=== PATIENT | male | born 1965 | race Hispanic/Latino ===

== ENCOUNTER 2017-09-07 10:26 | Observation (INO) | payer BC ==
--- OUTSIDE RECORDS SUMMARY | 2017-09-07 10:29 | XMS REPORT ---
:1965 [facility] Address [address] [place] [address] [address] [place] [address] Care Team Providers Name Role Phone LOPEZHAIMMADI Unavailable Unavailable TAMMY BETANCOURT Unavailable Unavailable Problems This patient has no known problems. Allergies, Adverse Reactions, Alerts This patient has no known allergies or adverse reactions. Medications This patient has no known medications. Results Test Description Test Time Test Comments Text Results Atomic Results Result Comments [facility] 2017-01-28 05:57:00 Test Item Value Reference Range Comments Glucose (test code=GLU) 117 mg/dl 75-110 BUN (test code=BUN) 12.0 mg/dl 6.0-17.0 Creatinine (test 0.9 mg/dl 0.4-1.2 code=CREA) Sodium (test code=NA) 142 mmol/l 137-145 Potassium (test code=K) 4.3 mmol/l 3.5-5.0 Chloride (test code=CL) 104 mmol/l 98-107 CO2 (test code=CO2) 26 mmol/l 22-30 Calcium (test code=CALC) 9.6 mg/dl 8.4-10.2 T Protein (test code=TP) 8.6 gm/dl 5.1-8.7 Albumin (test code=ALB) 4.0 gm/dl 3.5-4.6 A/G Ratio (test 0.9 % 1.1-2.2 code=AGRAT) AST (SGOT) (test code=AST) 31 U/L 11-36 ALT (SGPT) (test code=ALT) 51 U/L 11-40 Alkaline Phos (test 73 U/L 47-114 code=ALKP) Total Bilirubin (test 0.6 mg/dl 0.2-1.2 code=TBIL) Globulin (test code=GLOBU) 4.6 gm/dl 2.3-3.5 Calcium, Corrected (test 9.6 mg/dl 8.4-10.2 Various formulas exist for code=CALCCORR) corrected serum calcium results, each yielding different values. This corrected result was based on the formula: Corrected Calcium=SerumCalcium + [0.8 * ( 4 - SerumAlbumin)] EGFR if >60 (test code=EGFRAA) mL/min/1.73m\\S\\2 EGFR if Non- >60 Estimated Glomerular Jamaican (test mL/min/1.73m\\S\\2 Filtration Rate (eGFR) code=EGFRNA) Reference Intervals Decision Points for 18 years and older and average body mass: >=60 Does not exclude kidney disease. 30 - 59 Suggests moderate chronic kidney disease and indicates the need for further investigation including assessment of proteinuria and cardiovascular factors. < 30 Usually indicates a need for referral for assessment and management of chronic kidney failure. CBC WITH AUTO [id number] 05:42:00 Test Item Value Reference Range Comments WBC (test code=WBC) 5.14 10\\S\\3/ul 4.80-10.80 RBC (test code=RBC) 4.61 10\\S\\6/ul 4.70-6.10 Hemoglobin (test code=HGB) 12.4 gm/dl 14.0-18.0 Hematocrit (test code=HCT) 39.1 % 42.0-50.0 MCV (test code=MCV) 84.8 fL 80.0-94.0 MCH (test code=MCH) 26.9 pg 27.0-31.0 MCHC (test code=MCHC) 31.7 gm/dl 33.0-37.0 RDW (test code=RDWVC) 15.0 % 11.5-14.5 Platelet (test code=PLT) 473 10\\S\\3/ul 130-400 MPV (test code=MPV) 8.9 fL 7.4-10.4 "NOT MEASURED" RESULTS ARE DISPLAYED WHEN THE INSTRUMENT HAS A SUPPRESSED OR UNREPORTABLE RESULT. THIS WILL MOST OFTEN HAPPEN WITH THE MPV WHEN THERE IS AN ABNORMAL PLATLET DISTRIBUTION DUE TO A CRITICAL LOW VALUE OR PLATELET CLUMPING. NE% (test code=NE) 57.7 % 42.0-75.0 LY% (test code=LY) 29.2 % 13.0-42.0 MO% (test code=MO) 8.4 % 4.0-14.0 EO% (test code=EO) 2.3 % 1.0-3.0 BA% (test code=BA) 1.4 % 1.0-3.0 IG% (test code=IG%) 1.0 % 0.0-0.4 [id number] 05:53:00 Test Item Value Reference Range Comments Glucose (test code=GLU) 116 mg/dl 75-110 BUN (test code=BUN) 13.0 mg/dl 6.0-17.0 Creatinine (test 0.9 mg/dl 0.4-1.2 code=CREA) Sodium (test code=NA) 139 mmol/l 137-145 Potassium (test code=K) 4.4 mmol/l 3.5-5.0 Chloride (test code=CL) 102 mmol/l 98-107 CO2 (test code=CO2) 26 mmol/l 22-30 Calcium (test code=CALC) 9.2 mg/dl 8.4-10.2 T Protein (test code=TP) 8.1 gm/dl 5.1-8.7 Albumin (test code=ALB) 3.7 gm/dl 3.5-4.6 A/G Ratio (test 0.8 % 1.1-2.2 code=AGRAT) AST (SGOT) (test 52 U/L 11-36 code=AST) ALT (SGPT) (test 60 U/L 11-40 code=ALT) Alkaline Phos (test 73 U/L 47-114 code=ALKP) Total Bilirubin (test 0.6 mg/dl 0.2-1.2 code=TBIL) Globulin (test 4.4 gm/dl 2.3-3.5 code=GLOBU) Calcium, Corrected (test 9.4 mg/dl 8.4-10.2 Various formulas exist for code=CALCCORR) corrected serum calcium results, each yielding different values. This corrected result was based on the formula: Corrected Calcium=SerumCalcium + [0.8 * ( 4 - SerumAlbumin)] EGFR if >60 (test code=EGFRAA) mL/min/1.73m\\S\\2 EGFR if Non- >60 Estimated Glomerular Jamaican (test mL/min/1.73m\\S\\2 Filtration Rate (eGFR) code=EGFRNA) Reference Intervals Decision Points for 18 years and older and average body mass: >=60 Does not exclude kidney disease. 30 - 59 Suggests moderate chronic kidney disease and indicates the need for further investigation including assessment of proteinuria and cardiovascular factors. < 30 Usually indicates a need for referral for assessment and management of chronic kidney failure. CBC WITH AUTO [id number] 05:27:00 Test Item Value Reference Range Comments WBC (test code=WBC) 5.28 10\\S\\3/ul 4.80-10.80 RBC (test code=RBC) 4.50 10\\S\\6/ul 4.70-6.10 Hemoglobin (test code=HGB) 12.1 gm/dl 14.0-18.0 Hematocrit (test code=HCT) 38.7 % 42.0-50.0 MCV (test code=MCV) 86.0 fL 80.0-94.0 MCH (test code=MCH) 26.9 pg 27.0-31.0 MCHC (test code=MCHC) 31.3 gm/dl 33.0-37.0 RDW (test code=RDWVC) 15.1 % 11.5-14.5 Platelet (test code=PLT) 432 10\\S\\3/ul 130-400 MPV (test code=MPV) 8.9 fL 7.4-10.4 "NOT MEASURED" RESULTS ARE DISPLAYED WHEN THE INSTRUMENT HAS A SUPPRESSED OR UNREPORTABLE RESULT. THIS WILL MOST OFTEN HAPPEN WITH THE MPV WHEN THERE IS AN ABNORMAL PLATLET DISTRIBUTION DUE TO A CRITICAL LOW VALUE OR PLATELET CLUMPING. NE% (test code=NE) 53.6 % 42.0-75.0 LY% (test code=LY) 29.9 % 13.0-42.0 MO% (test code=MO) 10.8 % 4.0-14.0 EO% (test code=EO) 3.4 % 1.0-3.0 BA% (test code=BA) 0.6 % 1.0-3.0 IG% (test code=IG%) 1.7 % 0.0-0.4 [id number] 04:36:00 Test Item Value Reference Range Comments Glucose (test code=GLU) 148 mg/dl 75-110 BUN (test code=BUN) 14.0 mg/dl 6.0-17.0 Creatinine (test 1.0 mg/dl 0.4-1.2 code=CREA) Sodium (test code=NA) 141 mmol/l 137-145 Potassium (test code=K) 4.4 mmol/l 3.5-5.0 Chloride (test code=CL) 103 mmol/l 98-107 CO2 (test code=CO2) 26 mmol/l 22-30 Calcium (test code=CALC) 9.0 mg/dl 8.4-10.2 T Protein (test code=TP) 7.9 gm/dl 5.1-8.7 Albumin (test code=ALB) 3.7 gm/dl 3.5-4.6 A/G Ratio (test 0.9 % 1.1-2.2 code=AGRAT) AST (SGOT) (test 36 U/L 11-36 code=AST) ALT (SGPT) (test 63 U/L 11-40 code=ALT) Alkaline Phos (test 68 U/L 47-114 code=ALKP) Total Bilirubin (test 0.8 mg/dl 0.2-1.2 code=TBIL) Globulin (test 4.2 gm/dl 2.3-3.5 code=GLOBU) Calcium, Corrected (test 9.2 mg/dl 8.4-10.2 Various formulas exist for code=CALCCORR) corrected serum calcium results, each yielding different values. This corrected result was based on the formula: Corrected Calcium=SerumCalcium + [0.8 * ( 4 - SerumAlbumin)] EGFR if >60 (test code=EGFRAA) mL/min/1.73m\\S\\2 EGFR if Non- >60 Estimated Glomerular [place]ican (test mL/min/1.73m\\S\\2 Filtration Rate (eGFR) code=EGFRNA) Reference Intervals Decision Points for 18 years and older and average body mass: >=60 Does not exclude kidney disease. 30 - 59 Suggests moderate chronic kidney disease and indicates the need for further investigation including assessment of proteinuria and cardiovascular factors. < 30 Usually indicates a need for referral for assessment and management of chronic kidney failure. CBC WITH AUTO [id number] 04:14:00 Test Item Value Reference Range Comments WBC (test code=WBC) 5.76 10\\S\\3/ul 4.80-10.80 RBC (test code=RBC) 4.33 10\\S\\6/ul 4.70-6.10 Hemoglobin (test code=HGB) 11.7 gm/dl 14.0-18.0 Hematocrit (test code=HCT) 37.4 % 42.0-50.0 MCV (test code=MCV) 86.4 fL 80.0-94.0 MCH (test code=MCH) 27.0 pg 27.0-31.0 MCHC (test code=MCHC) 31.3 gm/dl 33.0-37.0 RDW (test code=RDWVC) 15.2 % 11.5-14.5 Platelet (test code=PLT) 412 10\\S\\3/ul 130-400 MPV (test code=MPV) 8.8 fL 7.4-10.4 "NOT MEASURED" RESULTS ARE DISPLAYED WHEN THE INSTRUMENT HAS A SUPPRESSED OR UNREPORTABLE RESULT. THIS WILL MOST OFTEN HAPPEN WITH THE MPV WHEN THERE IS AN ABNORMAL PLATLET DISTRIBUTION DUE TO A CRITICAL LOW VALUE OR PLATELET CLUMPING. NE% (test code=NE) 58.3 % 42.0-75.0 LY% (test code=LY) 25.2 % 13.0-42.0 MO% (test code=MO) 10.1 % 4.0-14.0 EO% (test code=EO) 3.3 % 1.0-3.0 BA% (test code=BA) 1.2 % 1.0-3.0 IG% (test code=IG%) 1.9 % 0.0-0.4 [id number] 04:40:00 Test Item Value Reference Range Comments Glucose (test code=GLU) 122 mg/dl 75-110 BUN (test code=BUN) 13.0 mg/dl 6.0-17.0 Creatinine (test 0.9 mg/dl 0.4-1.2 code=CREA) Sodium (test code=NA) 140 mmol/l 137-145 Potassium (test code=K) 4.3 mmol/l 3.5-5.0 Chloride (test code=CL) 104 mmol/l 98-107 CO2 (test code=CO2) 27 mmol/l 22-30 Calcium (test code=CALC) 9.1 mg/dl 8.4-10.2 T Protein (test code=TP) 8.1 gm/dl 5.1-8.7 Albumin (test code=ALB) 3.7 gm/dl 3.5-4.6 A/G Ratio (test 0.8 % 1.1-2.2 code=AGRAT) AST (SGOT) (test 39 U/L 11-36 code=AST) ALT (SGPT) (test 70 U/L 11-40 code=ALT) Alkaline Phos (test 77 U/L 47-114 code=ALKP) Total Bilirubin (test 0.8 mg/dl 0.2-1.2 code=TBIL) Globulin (test 4.4 gm/dl 2.3-3.5 code=GLOBU) Calcium, Corrected (test 9.3 mg/dl 8.4-10.2 Various formulas exist for code=CALCCORR) corrected serum calcium results, each yielding different values. This corrected result was based on the formula: Corrected Calcium=SerumCalcium + [0.8 * ( 4 - SerumAlbumin)] EGFR if >60 (test code=EGFRAA) mL/min/1.73m\\S\\2 EGFR if Non- >60 Estimated Glomerular [place]ican (test mL/min/1.73m\\S\\2 Filtration Rate (eGFR) code=EGFRNA) Reference Intervals Decision Points for 18 years and older and average body mass: >=60 Does not exclude kidney disease. 30 - 59 Suggests moderate chronic kidney disease and indicates the need for further investigation including assessment of proteinuria and cardiovascular factors. < 30 Usually indicates a need for referral for assessment and management of chronic kidney failure. CBC WITH AUTO [id number] 04:09:00 Test Item Value Reference Range Comments WBC (test code=WBC) 6.63 10\\S\\3/ul 4.80-10.80 RBC (test code=RBC) 4.55 10\\S\\6/ul 4.70-6.10 Hemoglobin (test code=HGB) 12.3 gm/dl 14.0-18.0 Hematocrit (test code=HCT) 38.8 % 42.0-50.0 MCV (test code=MCV) 85.3 fL 80.0-94.0 MCH (test code=MCH) 27.0 pg 27.0-31.0 MCHC (test code=MCHC) 31.7 gm/dl 33.0-37.0 RDW (test code=RDWVC) 15.4 % 11.5-14.5 Platelet (test code=PLT) 401 10\\S\\3/ul 130-400 MPV (test code=MPV) 8.9 fL 7.4-10.4 "NOT MEASURED" RESULTS ARE DISPLAYED WHEN THE INSTRUMENT HAS A SUPPRESSED OR UNREPORTABLE RESULT. THIS WILL MOST OFTEN HAPPEN WITH THE MPV WHEN THERE IS AN ABNORMAL PLATLET DISTRIBUTION DUE TO A CRITICAL LOW VALUE OR PLATELET CLUMPING. NE% (test code=NE) 63.8 % 42.0-75.0 LY% (test code=LY) 21.4 % 13.0-42.0 MO% (test code=MO) 8.6 % 4.0-14.0 EO% (test code=EO) 3.2 % 1.0-3.0 BA% (test code=BA) 0.6 % 1.0-3.0 IG% (test code=IG%) 2.4 % 0.0-0.4 CULTURE, [id number] 06:50:00To start 15mins after 1st cultureSpecimen: BloodCollected: 01/18/2017 04:05 Status: Final Last Updated: 01/23/2017 06: 49 (1) To start 15mins after 1st culture Culture Result (Final) (Final ) No Growth After 5 DaysCULTURE, [id number] 06:50:00Specimen: BloodCollected: 01/18/2017 03:55 Status: Final Last Updated: 01/23/2017 06: 49 Culture Result (Final) (Final) No Growth After 5 DaysCBC WITH AUTO [id number] 04:31:00 Test Item Value Reference Range Comments WBC (test code=WBC) 7.39 10\\S\\3/ul 4.80-10.80 RBC (test code=RBC) 4.43 10\\S\\6/ul 4.70-6.10 Hemoglobin (test code=HGB) 11.9 gm/dl 14.0-18.0 Hematocrit (test code=HCT) 37.8 % 42.0-50.0 MCV (test code=MCV) 85.3 fL 80.0-94.0 MCH (test code=MCH) 26.9 pg 27.0-31.0 MCHC (test code=MCHC) 31.5 gm/dl 33.0-37.0 RDW (test code=RDWVC) 15.6 % 11.5-14.5 Platelet (test code=PLT) 391 10\\S\\3/ul 130-400 MPV (test code=MPV) 8.9 fL 7.4-10.4 "NOT MEASURED" RESULTS ARE DISPLAYED WHEN THE INSTRUMENT HAS A SUPPRESSED OR UNREPORTABLE RESULT. THIS WILL MOST OFTEN HAPPEN WITH THE MPV WHEN THERE IS AN ABNORMAL PLATLET DISTRIBUTION DUE TO A CRITICAL LOW VALUE OR PLATELET CLUMPING. NE% (test code=NE) 64.7 % 42.0-75.0 LY% (test code=LY) 19.9 % 13.0-42.0 MO% (test code=MO) 8.9 % 4.0-14.0 EO% (test code=EO) 2.3 % 1.0-3.0 BA% (test code=BA) 0.8 % 1.0-3.0 IG% (test code=IG%) 3.4 % 0.0-0.4 [id number] 04:19:00 Test Item Value Reference Range Comments Glucose (test code=GLU) 125 mg/dl 75-110 BUN (test code=BUN) 12.0 mg/dl 6.0-17.0 Creatinine (test 0.9 mg/dl 0.4-1.2 code=CREA) Sodium (test code=NA) 143 mmol/l 137-145 Potassium (test code=K) 4.3 mmol/l 3.5-5.0 Chloride (test code=CL) 101 mmol/l 98-107 CO2 (test code=CO2) 29 mmol/l 22-30 Calcium (test code=CALC) 9.0 mg/dl 8.4-10.2 T Protein (test code=TP) 7.9 gm/dl 5.1-8.7 Albumin (test code=ALB) 3.6 gm/dl 3.5-4.6 A/G Ratio (test 0.8 % 1.1-2.2 code=AGRAT) AST (SGOT) (test 42 U/L 11-36 code=AST) ALT (SGPT) (test 69 U/L 11-40 code=ALT) Alkaline Phos (test 82 U/L 47-114 code=ALKP) Total Bilirubin (test 0.7 mg/dl 0.2-1.2 code=TBIL) Globulin (test 4.3 gm/dl 2.3-3.5 code=GLOBU) Calcium, Corrected (test 9.3 mg/dl 8.4-10.2 Various formulas exist for code=CALCCORR) corrected serum calcium results, each yielding different values. This corrected result was based on the formula: Corrected Calcium=SerumCalcium + [0.8 * ( 4 - SerumAlbumin)] EGFR if >60 (test code=EGFRAA) mL/min/1.73m\\S\\2 EGFR if Non- >60 Estimated Glomerular [place]ican (test mL/min/1.73m\\S\\2 Filtration Rate (eGFR) code=EGFRNA) Reference Intervals Decision Points for 18 years and older and average body mass: >=60 Does not exclude kidney disease. 30 - 59 Suggests moderate chronic kidney disease and indicates the need for further investigation including assessment of proteinuria and cardiovascular factors. < 30 Usually indicates a need for referral for assessment and management of chronic kidney failure. CBC WITH AUTO [id number] 04:57:00 Test Item Value Reference Range Comments WBC (test code=WBC) 7.78 10\\S\\3/ul 4.80-10.80 RBC (test code=RBC) 4.46 10\\S\\6/ul 4.70-6.10 Hemoglobin (test code=HGB) 12.0 gm/dl 14.0-18.0 Hematocrit (test code=HCT) 38.2 % 42.0-50.0 MCV (test code=MCV) 85.7 fL 80.0-94.0 MCH (test code=MCH) 26.9 pg 27.0-31.0 MCHC (test code=MCHC) 31.4 gm/dl 33.0-37.0 RDW (test code=RDWVC) 15.5 % 11.5-14.5 Platelet (test code=PLT) 359 10\\S\\3/ul 130-400 MPV (test code=MPV) 9.0 fL 7.4-10.4 "NOT MEASURED" RESULTS ARE DISPLAYED WHEN THE INSTRUMENT HAS A SUPPRESSED OR UNREPORTABLE RESULT. THIS WILL MOST OFTEN HAPPEN WITH THE MPV WHEN THERE IS AN ABNORMAL PLATLET DISTRIBUTION DUE TO A CRITICAL LOW VALUE OR PLATELET CLUMPING. NE% (test code=NE) 66.4 % 42.0-75.0 LY% (test code=LY) 17.1 % 13.0-42.0 MO% (test code=MO) 9.3 % 4.0-14.0 EO% (test code=EO) 2.7 % 1.0-3.0 BA% (test code=BA) 0.5 % 1.0-3.0 IG% (test code=IG%) 4.0 % 0.0-0.4 CBC AUTO [id number] 04:35:00 Test Item Value Reference Range Comments Glucose (test code=GLU) 108 mg/dl 75-110 BUN (test code=BUN) 10.0 mg/dl 6.0-17.0 Creatinine (test 0.9 mg/dl 0.4-1.2 code=CREA) Sodium (test code=NA) 142 mmol/l 137-145 Potassium (test code=K) 4.4 mmol/l 3.5-5.0 Chloride (test code=CL) 102 mmol/l 98-107 CO2 (test code=CO2) 32 mmol/l 22-30 Calcium (test code=CALC) 8.9 mg/dl 8.4-10.2 T Protein (test code=TP) 7.6 gm/dl 5.1-8.7 Albumin (test code=ALB) 3.5 gm/dl 3.5-4.6 A/G Ratio (test 0.9 % 1.1-2.2 code=AGRAT) AST (SGOT) (test 75 U/L 11-36 code=AST) ALT (SGPT) (test 68 U/L 11-40 code=ALT) Alkaline Phos (test 80 U/L 47-114 code=ALKP) Total Bilirubin (test 0.8 mg/dl 0.2-1.2 code=TBIL) Globulin (test 4.1 gm/dl 2.3-3.5 code=GLOBU) Calcium, Corrected (test 9.3 mg/dl 8.4-10.2 Various formulas exist for code=CALCCORR) corrected serum calcium results, each yielding different values. This corrected result was based on the formula: Corrected Calcium=SerumCalcium + [0.8 * ( 4 - SerumAlbumin)] EGFR if >60 (test code=EGFRAA) mL/min/1.73m\\S\\2 EGFR if Non- >60 Estimated Glomerular [place] (test mL/min/1.73m\\S\\2 Filtration Rate (eGFR) code=EGFRNA) Reference Intervals Decision Points for 18 years and older and average body mass: >=60 Does not exclude kidney disease. 30 - 59 Suggests moderate chronic kidney disease and indicates the need for further investigation including assessment of proteinuria and cardiovascular factors. < 30 Usually indicates a need for referral for assessment and management of chronic kidney failure. CBC WITH AUTO [id number] 05:01:00 Test Item Value Reference Range Comments WBC (test code=WBC) 7.83 10\\S\\3/ul 4.80-10.80 RBC (test code=RBC) 4.26 10\\S\\6/ul 4.70-6.10 Hemoglobin (test code=HGB) 11.7 gm/dl 14.0-18.0 Hematocrit (test code=HCT) 36.5 % 42.0-50.0 MCV (test code=MCV) 85.7 fL 80.0-94.0 MCH (test code=MCH) 27.5 pg 27.0-31.0 MCHC (test code=MCHC) 32.1 gm/dl 33.0-37.0 RDW (test code=RDWVC) 15.7 % 11.5-14.5 Platelet (test code=PLT) 299 10\\S\\3/ul 130-400 MPV (test code=MPV) 9.2 fL 7.4-10.4 "NOT MEASURED" RESULTS ARE DISPLAYED WHEN THE INSTRUMENT HAS A SUPPRESSED OR UNREPORTABLE RESULT. THIS WILL MOST OFTEN HAPPEN WITH THE MPV WHEN THERE IS AN ABNORMAL PLATLET DISTRIBUTION DUE TO A CRITICAL LOW VALUE OR PLATELET CLUMPING. NE% (test code=NE) 67.1 % 42.0-75.0 LY% (test code=LY) 16.0 % 13.0-42.0 MO% (test code=MO) 9.6 % 4.0-14.0 EO% (test code=EO) 2.4 % 1.0-3.0 BA% (test code=BA) 0.4 % 1.0-3.0 IG% (test code=IG%) 4.5 % 0.0-0.4 CBC AUTO [id number] 04:56:00 Test Item Value Reference Range Comments Glucose (test code=GLU) 107 mg/dl 75-110 BUN (test code=BUN) 7.0 mg/dl 6.0-17.0 Creatinine (test 0.9 mg/dl 0.4-1.2 code=CREA) Sodium (test code=NA) 143 mmol/l 137-145 Potassium (test code=K) 4.2 mmol/l 3.5-5.0 Chloride (test code=CL) 105 mmol/l 98-107 CO2 (test code=CO2) 29 mmol/l 22-30 Calcium (test code=CALC) 8.8 mg/dl 8.4-10.2 T Protein (test code=TP) 7.2 gm/dl 5.1-8.7 Albumin (test code=ALB) 3.5 gm/dl 3.5-4.6 A/G Ratio (test 0.9 % 1.1-2.2 code=AGRAT) AST (SGOT) (test 45 U/L 11-36 code=AST) ALT (SGPT) (test 87 U/L 11-40 code=ALT) Alkaline Phos (test 77 U/L 47-114 code=ALKP) Total Bilirubin (test 0.8 mg/dl 0.2-1.2 code=TBIL) Globulin (test 3.7 gm/dl 2.3-3.5 code=GLOBU) Calcium, Corrected (test 9.2 mg/dl 8.4-10.2 Various formulas exist for code=CALCCORR) corrected serum calcium results, each yielding different values. This corrected result was based on the formula: Corrected Calcium=SerumCalcium + [0.8 * ( 4 - SerumAlbumin)] EGFR if >60 (test code=EGFRAA) mL/min/1.73m\\S\\2 EGFR if Non- >60 Estimated Glomerular [place] (test mL/min/1.73m\\S\\2 Filtration Rate (eGFR) code=EGFRNA) Reference Intervals Decision Points for 18 years and older and average body mass: >=60 Does not exclude kidney disease. 30 - 59 Suggests moderate chronic kidney disease and indicates the need for further investigation including assessment of proteinuria and cardiovascular factors. < 30 Usually indicates a need for referral for assessment and management of chronic kidney failure. CBC WITH AUTO [id number] 05:57:00 Test Item Value Reference Range Comments WBC (test code=WBC) 7.49 10\\S\\3/ul 4.80-10.80 RBC (test code=RBC) 4.17 10\\S\\6/ul 4.70-6.10 Hemoglobin (test code=HGB) 11.3 gm/dl 14.0-18.0 Hematocrit (test code=HCT) 35.5 % 42.0-50.0 MCV (test code=MCV) 85.1 fL 80.0-94.0 MCH (test code=MCH) 27.1 pg 27.0-31.0 MCHC (test code=MCHC) 31.8 gm/dl 33.0-37.0 RDW (test code=RDWVC) 16.1 % 11.5-14.5 Platelet (test code=PLT) 222 10\\S\\3/ul 130-400 MPV (test code=MPV) 9.5 fL 7.4-10.4 "NOT MEASURED" RESULTS ARE DISPLAYED WHEN THE INSTRUMENT HAS A SUPPRESSED OR UNREPORTABLE RESULT. THIS WILL MOST OFTEN HAPPEN WITH THE MPV WHEN THERE IS AN ABNORMAL PLATLET DISTRIBUTION DUE TO A CRITICAL LOW VALUE OR PLATELET CLUMPING. NE% (test code=NE) 64.4 % 42.0-75.0 LY% (test code=LY) 16.2 % 13.0-42.0 MO% (test code=MO) 12.6 % 4.0-14.0 EO% (test code=EO) 1.3 % 1.0-3.0 BA% (test code=BA) 0.7 % 1.0-3.0 IG% (test code=IG%) 4.8 % 0.0-0.4 [id number] 05:41:00 Test Item Value Reference Range Comments Magnesium (test code=MG) 2.0 mg/dl 1.6-2.3 [id number] 05:41:00 Test Item Value Reference Range Comments Glucose (test code=GLU) 114 mg/dl 75-110 BUN (test code=BUN) 8.0 mg/dl 6.0-17.0 Creatinine (test 0.9 mg/dl 0.4-1.2 code=CREA) Sodium (test code=NA) 145 mmol/l 137-145 Potassium (test code=K) 3.9 mmol/l 3.5-5.0 Chloride (test code=CL) 105 mmol/l 98-107 CO2 (test code=CO2) 28 mmol/l 22-30 Calcium (test code=CALC) 8.8 mg/dl 8.4-10.2 T Protein (test code=TP) 7.0 gm/dl 5.1-8.7 Albumin (test code=ALB) 3.2 gm/dl 3.5-4.6 A/G Ratio (test 0.8 % 1.1-2.2 code=AGRAT) AST (SGOT) (test 75 U/L 11-36 code=AST) ALT (SGPT) (test 113 U/L 11-40 code=ALT) Alkaline Phos (test 100 U/L 47-114 code=ALKP) Total Bilirubin (test 1.0 mg/dl 0.2-1.2 code=TBIL) Globulin (test 3.8 gm/dl 2.3-3.5 code=GLOBU) Calcium, Corrected (test 9.4 mg/dl 8.4-10.2 Various formulas exist for code=CALCCORR) corrected serum calcium results, each yielding different values. This corrected result was based on the formula: Corrected Calcium=SerumCalcium + [0.8 * ( 4 - SerumAlbumin)] EGFR if >60 (test code=EGFRAA) mL/min/1.73m\\S\\2 EGFR if Non- >60 Estimated Glomerular Jamaican (test mL/min/1.73m\\S\\2 Filtration Rate (eGFR) code=EGFRNA) Reference Intervals Decision Points for 18 years and older and average body mass: >=60 Does not exclude kidney disease. 30 - 59 Suggests moderate chronic kidney disease and indicates the need for further investigation including assessment of proteinuria and cardiovascular factors. < 30 Usually indicates a need for referral for assessment and management of chronic kidney failure. LACTIC ACID [id number] 06:43:00 Test Item Value Reference Range Comments LACTATE (test code=LAC) 0.9 mmol/l 0.7-2.0 GLYCOSALATED [id number] 05:41:00 Test Item Value Reference Range Comments Hemoglobin A1C (test 9.06 % 4.3-6.0 code=GLYCO) Mean Plasma Glucose (test 245 mg/dl 90-180 WHEN TEST RESULTS FOR A1C code=MPG) EXCEED 14.0, THE LINEAR LIMIT OF THE INSTRUMENT, THE CALCULATED RESULT FOR THE MEAN GLUCOSE IS NOT RELIABLE. CORONARY [id number] 05:09:00 Test Item Value Reference Range Comments Triglycerides (test 186 mg/dl 0-149 Trig. Interpretation Guide: code=TRIG) Normal: < 150 mg/dl Borderline High: 150 - 199 mg/dl High: 200 - 499 mg/dl Very High: >=500 mg/dl Cholesterol (test code=CHOL) 146 mg/dl 0-198 HDL (test code=HDL) 24 mg/dl 35-86 dLDL (test code=DILDL) 89 mg/dl 0-99 Direct LDL Intrepretations: Optimal: <100 mg/dl Suspect: 100 - 129 mg/dl Borderline: 130 - 159 mg/dl High: 160 - 189 mg/dl Very High: >190 mg/dl Risk Factor (test code=RFACT) 6.1 0.0-5.0 Risk Factor Men Women Risk Factor 3.4 3.3 1/2 Average 5.0 4.4 Average 9.6 7.1 2X Average 24.0 11.0 3X Average vLDL (test code=VLDL) 37 mg/dl 30-60 [id number] 04:51:00 Test Item Value Reference Range Comments Magnesium (test code=MG) 2.1 mg/dl 1.6-2.3 [id number] 04:51:00 Test Item Value Reference Range Comments CPK (test code=CPK) 93 U/L 30-135 LIPASE, [id number] 04:43:00 Test Item Value Reference Range Comments Lipase (test code=LIPA) 116 U/L 8-223 [id number] 04:43:00 Test Item Value Reference Range Comments Glucose (test code=GLU) 95 mg/dl 75-110 BUN (test code=BUN) 10.0 mg/dl 6.0-17.0 Creatinine (test 0.8 mg/dl 0.4-1.2 code=CREA) Sodium (test code=NA) 143 mmol/l 137-145 Potassium (test code=K) 3.4 mmol/l 3.5-5.0 Chloride (test code=CL) 104 mmol/l 98-107 CO2 (test code=CO2) 29 mmol/l 22-30 Calcium (test code=CALC) 9.0 mg/dl 8.4-10.2 T Protein (test code=TP) 7.6 gm/dl 5.1-8.7 Albumin (test code=ALB) 3.6 gm/dl 3.5-4.6 A/G Ratio (test 0.9 % 1.1-2.2 code=AGRAT) AST (SGOT) (test 58 U/L 11-36 code=AST) ALT (SGPT) (test 93 U/L 11-40 code=ALT) Alkaline Phos (test 97 U/L 47-114 code=ALKP) Total Bilirubin (test 1.3 mg/dl 0.2-1.2 code=TBIL) Globulin (test 4.0 gm/dl 2.3-3.5 code=GLOBU) Calcium, Corrected (test 9.3 mg/dl 8.4-10.2 Various formulas exist for code=CALCCORR) corrected serum calcium results, each yielding different values. This corrected result was based on the formula: Corrected Calcium=SerumCalcium + [0.8 * ( 4 - SerumAlbumin)] EGFR if >60 (test code=EGFRAA) mL/min/1.73m\\S\\2 EGFR if Non- >60 Estimated Glomerular [place]ican (test mL/min/1.73m\\S\\2 Filtration Rate (eGFR) code=EGFRNA) Reference Intervals Decision Points for 18 years and older and average body mass: >=60 Does not exclude kidney disease. 30 - 59 Suggests moderate chronic kidney disease and indicates the need for further investigation including assessment of proteinuria and cardiovascular factors. < 30 Usually indicates a need for referral for assessment and management of chronic kidney failure. CBC (HEMOGRAM ONLY)2017-01-18 04:37:00 Test Item Value Reference Range Comments WBC (test code=WBC) 7.74 10\\S\\3/ul 4.80-10.80 RBC (test code=RBC) 4.39 10\\S\\6/ul 4.70-6.10 Hemoglobin (test code=HGB) 12.0 gm/dl 14.0-18.0 Hematocrit (test code=HCT) 37.4 % 42.0-50.0 MCV (test code=MCV) 85.2 fL 80.0-94.0 MCH (test code=MCH) 27.3 pg 27.0-31.0 MCHC (test code=MCHC) 32.1 gm/dl 33.0-37.0 RDW (test code=RDWVC) 15.9 % 11.5-14.5 Platelet (test code=PLT) 185 10\\S\\3/ul 130-400 MPV (test code=MPV) 9.5 fL 7.4-10.4 "NOT MEASURED" RESULTS ARE DISPLAYED WHEN THE INSTRUMENT HAS A SUPPRESSED OR UNREPORTABLE RESULT. THIS WILL MOST OFTEN HAPPEN WITH THE MPV WHEN THERE IS AN ABNORMAL PLATLET DISTRIBUTION DUE TO A CRITICAL LOW VALUE OR PLATELET CLUMPING. THIS IS A HEMOGRAM ONLY
[2017-09-07 12:28] LABS: Absolute Lymphocytes (CBC) 1.5 K/uL (0.7-4.9); Absolute Monocytes 0.7 K/uL (0.1-1.3); Absolute Neutrophil 4.3 K/uL (1.8-8.0); Eosinophils % 4.1 % (0-4.4); Hematocrit 44.4 % (39.6-49.0); Lymphocytes % 21.5 % (15.3-44.8); MPV 8.2 fL (7.6-11.3); Monocytes % 9.9 % (3.3-12.3); RBC Red Blood Cell Count 5.29 M/uL (4.33-5.43)
[2017-09-07 12:31] LABS: Protime INR 0.94
[2017-09-07 12:45] LABS: Bicarbonate 29 mEq/L (21-31); Glucose Level 152 mg/dL (65-120); Potassium 4.6 mEq/L (3.6-5.0); Sodium Level 136 mEq/L (135-145)
[2017-09-07 12:51] LABS: ALT/SGPT 99 IU/L (10-60); AST/SGOT 51 IU/L (10-42); Albumin 3.7 g/dL (3.2-5.5); Alkaline Phosphatase 69 IU/L (42-121); BUN Blood Urea Nitrogen 17 mg/dL (6-20); Bilirubin Direct 0.1 mg/dL (0-0.2); Bilirubin Total 0.2 mg/dL (0.3-1.2); Creatine Phosphokinase 246 IU/L (22-269); Protein, Total 7.3 g/dL (6.0-8.3)
[2017-09-07 12:54] LABS: CKMB Creatine Kinase MB 8.3 ng/ml (0.3-4.0)
[2017-09-07 13:29] LABS: Urine Blood NEGATIVE (NEG); Urine Glucose 2+ (NEG); Urine Protein TRACE (NEG); Urine Specific Gravity 1.015 (1.005-1.030)
--- NOTE | 2017-09-07 13:44 | RAD REPORT ---
EXAM DESCRIPTION: VAS - Extrem Venous W Compress Mukund - 09/07/2017 1:37 pm CLINICAL HISTORY: Leg pain and swelling COMPARISON: None. TECHNIQUE: Real-time sonographic evaluation of the bilateral lower extremity deep venous systems was performed. FINDINGS: Normal compressibility, flow augmentation, phasic flow and spontaneous flow are identified in the left and right lower extremity deep venous systems. No intraluminal filling defects seen. Int erstitial edema is seen in the soft tissues. No abscess or drainable fluid collection. IMPRESSION: No DVT in either lower extremity. Bilateral calf edema change. No abscess or drainable fluid collection.
--- NOTE | 2017-09-07 13:46 | RAD REPORT ---
EXAM DESCRIPTION: RAD - Chest Single View - 09/07/2017 1:38 pm CLINICAL HISTORY: Orthopnea, soft tissue infection COMPARISON: December 2016 TECHNIQUE: AP portable chest image was obtained 1334 hours . FINDINGS: No pulmonary edema, infiltrate or acute lung parenchymal process. Failure and volume overl oad are not suspected. Heart and vasculature are normal. No measurable pleural effusion and no pneumo thorax. No gross bony abnormality seen. No acute aortic findings suspected. IMPRESSION: No acute cardiopulmonary process. No significant change from comparison.
[2017-09-07] MEDS ORDERED: FUROSEMIDE 40 MG/4 ML VIAL ONE (14:13)
--- NOTE | 2017-09-07 14:57 | EDPHYS ---
Physician Documentation [facility] Name: Nicola Harvey Age: 52 yrs Sex: Male : 1965 Arrival Date: 09/07/2017 Time: 10:28 Bed 15 Private MD: ED Physician Dakotah Gandhi HPI: 09/07 11:56 This 52 yrs old Male presents to ER via Ambulatory with complaints of Leg Pain.cp 11:56 The patient presents with pain, swelling, tenderness. The complaints affect the right cp lower leg. 11:56 Associated signs and symptoms: Pertinent positives: calf tenderness, orthopnea, cp Pertinent negatives fever, warmth. 11:56 Onset: The symptoms/episode began/occurred gradually, and became worse 3 day(s) ago. cp Treatment prior to arrival includes: no previous treatment. Severity of symptoms: in the emergency department the symptoms are unchanged, despite home interventions. Historical: - Allergies: 10:36 No Known Allergies; hj - Home Meds: 10:36 amlodipine 5 mg tab 1 tab once daily [Active]; glimepiride 4 mg Oral tab 1 tab BID hj [Active]; guardiance [Active]; lisinopril 40 mg Oral tab 1 tab once daily [Active]; metformin 1,000 mg Oral tab 1 tab 2 times per day [Active]; Metoprolol Tartrate Oral [Active]; Victoza 2-Quoc subcutaneous [Active]; - PMHx: 10:36 Diabetes - IDDM; Hypertension; lower back pain with injecitons; hj - PSHx: 10:36 back; hj - Immunization history:: Adult Immunizations up to date. - Social history:: Smoking status: Patient/guardian denies using tobacco. ROS: 12:00 Constitutional: Negative for body aches, chills, fever, poor PO intake. cp 12:00 Eyes: Negative for injury, pain, redness, and discharge. cp 12:00 ENT: Negative for drainage from ear(s), ear pain, sore throat, difficulty swallowing, difficulty handling secretions. 12:00 Cardiovascular: Positive for edema, orthopnea, Negative for chest pain, palpitations. 12:00 Respiratory: Negative for cough, hemoptysis, pleurisy, wheezing. 12:00 Abdomen/GI: Negative for abdominal pain, nausea, vomiting, and diarrhea, black/tarry stool, rectal bleeding. 12:00 Back: Negative for pain at rest, pain with movement. 12:00 : Negative for urinary symptoms. 12:00 Skin: Negative for cellulitis, rash. 12:00 Neuro: Negative for altered mental status, headache, numbness, weakness. 12:00 All other systems are negative. Exam: 12:08 Constitutional: The patient appears in no acute distress, alert, awake, cp non-diaphoretic, non-toxic, well developed, well nourished, obese. 12:08 Head/Face: Normocephalic, atraumatic. Eyes: Pupils equal round and reactive to light, cp extra-ocular motions intact. Lids and lashes normal. Conjunctiva and sclera are non-icteric and not injected. Cornea within normal limits. Periorbital areas with no swelling, redness, or edema. ENT: Nares patent. No nasal discharge, no septal abnormalities noted. Tympanic membranes are normal and external auditory canals are clear. Oropharynx with no redness, swelling, or masses, exudates, or evidence of obstruction, uvula midline. Mucous membranes moist. Neck: Trachea midline, no thyromegaly or masses palpated, and no cervical lymphadenopathy. Supple, full range of motion without nuchal rigidity, or vertebral point tenderness. No Meningismus. Chest/axilla: Normal chest wall appearance and motion. Nontender with no deformity. No lesions are appreciated. 12:08 Cardiovascular: Rate: bradycardic, Rhythm: regular, Heart sounds: murmur, not appreciated, rub, not appreciated, gallop, not appreciated, Edema: ankle edema, that is marked, JVD: is not appreciated. 12:08 Respiratory: the patient does not display signs of respiratory distress, Respirations: normal, no use of accessory muscles, no retractions, no splinting, no tachypnea, labored breathing, is not present, Breath sounds: are clear throughout, no decreased breath sounds, no stridor, no wheezing. 12:08 Abdomen/GI: Inspection: obese Bowel sounds: active, all quadrants, Palpation: abdomen is soft and non-tender, in all quadrants, rebound tenderness, is not appreciated, voluntary guarding, is not appreciated, involuntary guarding, is not appreciated. 12:08 Back: pain, is absent, ROM is normal. 12:08 Skin: cellulitis, is not appreciated, no rash present. 12:08 Neuro: Orientation: to person, place \T\ time. Mentation: is normal, Cerebellar function: is grossly normal, Motor: moves all fours, strength is normal, Sensation: no obvious gross deficits. Vital Signs: 10:37 BP 127 / 68; Pulse 56; Resp 18; Temp 97.5(TE); Pulse Ox 98% on R/A; Weight 147.42 kg; hj Height 5 ft. 10 in. (177.80 cm); Pain 5/10; 13:31 BP 150 / 82; Pulse 50; Resp 16; Pulse Ox 97% on R/A; la1 16:16 BP 170 / 70; Pulse 54; Resp 16; Temp 97.6(TE); Pulse Ox 100% on R/A; la1 10:37 Body Mass Index 46.63 (147.42 kg, 177.80 cm) hj MDM: 11:43 Patient medically screened. cp 13:00 Differential diagnosis: DVT, cellulitis, CHF exacerbation, kidney failure. cp 14:00 Data reviewed: vital signs, nurses notes, lab test result(s), radiologic studies, plain cp films, ultrasound. 14:00 Counseling: I had a detailed discussion with the patient and/or guardian regarding: the cp historical points, exam findings, and any diagnostic results supporting the discharge/admit diagnosis, lab results, radiology results, will admit for continued treatment. 14:00 Physician consultation: Paul Call MD was contacted at 14:00, regarding admission, cp to the telemetry unit. patient's condition, and will see patient in ED, shortly. 09/07 11:56 Order name: Troponin (emerg Dept Use Only); Complete Time: 13:54 cp 09/07 12:24 Order name: Basic Metabolic Panel; Complete Time: 13:02 EDMO 09/07 13:03 Interpretation: Normal except: GLUC 152. cp 09/07 12:24 Order name: Liver (Hepatic) Function; Complete Time: 13:02 EDMO 09/07 12:24 Order name: Creatine Phosphokinase; Complete Time: 13:02 EDMO 09/07 12:24 Order name: CKMB Creatine Kinase MB; Complete Time: 13:02 EDMO 09/07 11:56 Order name: XRAY Chest (1 view); Complete Time: 13:54 cp 09/07 11:56 Order name: EKG; Complete Time: 12:34 cp 09/07 11:56 Order name: Cardiac monitoring; Complete Time: 13:03 cp 09/07 11:56 Order name: EKG - Nurse/Tech; Complete Time: 12:57 cp 09/07 11:56 Order name: IV Saline Lock; Complete Time: 12:57 cp 09/07 11:56 Order name: Labs collected and sent; Complete Time: 12:57 cp 09/07 11:56 Order name: O2 Per Protocol; Complete Time: 12:57 cp 09/07 11:56 Order name: US Extremity Venou Bilateral; Complete Time: 13:54 cp 09/07 12:24 Order name: Magnesium; Complete Time: 13:02 EDMS 09/07 12:25 Order name: BNP B-Type Natriuretic Peptide; Complete Time: 13:54 EDMS 09/07 12:25 Order name: CBC with Automated Diff; Complete Time: 13:02 EDMS 09/07 12:25 Order name: Protime (+INR); Complete Time: 13:02 EDMS 09/07 12:43 Order name: PTT, Activated Partial Thromb; Complete Time: 13:02 EDMS 09/07 13:08 Order name: Urine Dipstick--Ancillary (enter results); Complete Time: 13:54 ag 09/07 14:29 Order name: Diet Heart Healthy; Complete Time: 14:29 ag 09/07 11:56 Order name: O2 Sat Monitoring; Complete Time: 12:57 cp 09/07 11:56 Order name: Urine Dipstick-Ancillary (obtain specimen); Complete Time: 12:58 cp Administered Medications: 14:18 Drug: Lasix 40 mg Route: IVP; Site: right antecubital; la1 16:17 Follow up: Response: increased urine output la1 Disposition: 18:50 Co-signature as Attending Physician, Dakotah Gandhi MD I agree with the assessment and kdr plan of care. Disposition: 09/07/17 14:56 Hospitalization ordered by Latoya Mcknight for Inpatient Admission. Preliminary diagnosis are Orthopnea, Edema, unspecified - Bilateral Lower Extremities. - Bed requested for Telemetry/MedSurg (Inpatient). - Status is Inpatient Admission. la1 - Condition is Stable. - Problem is new. - Symptoms are unchanged. UTI on Admission? No Signatures: Dispatcher [employer] EDMS Mariah Garcia, RN RN dw Dakotah Gandhi MD MD kdr Attema, Lee, RN RN la1 Young Carrasco, RN RN hj Weston Fonseca PA PA cp Corrections: (The following items were deleted from the chart) 12: 12:34 BASIC METABOLIC PANEL+C.LAB.BRZ ordered. EDMS EDMS 12: 12:34 BNP+C.LAB.BRZ ordered. EDMS EDMS 12: 12:34 CBC+H.LAB.BRZ ordered. EDMS EDMS 12: 12:34 CKMB+C.LAB.BRZ ordered. EDMS EDMS 12: 12:34 CREATINE PHOSPHOKINASE+C.LAB.BRZ ordered. EDMS EDMS 12: 12:34 HEPATIC FUNCTION+C.LAB.BRZ ordered. EDMS EDMS 12: 12:34 MAGNESIUM+C.LAB.BRZ ordered. EDMS EDMS 12:41 12:34 PROTIME (+INR)+COAG.LAB.BRZ ordered. EDMS EDMS 12:41 12:34 PTT, ACTIVATED+COAG.LAB.BRZ ordered. EDMS EDMS
--- NOTE | 2017-09-07 14:57 | ER ---
Nurse's Notes [facility] Name: Nicola Harvey Age: 52 yrs Sex: Male : 1965 Arrival Date: 09/07/2017 Time: 10:28 Bed 15 Private MD: Diagnosis: Edema, unspecified-Bilateral Lower Extremities;Orthopnea Presentation: 09/07 10:34 Presenting complaint: Patient states: i have problems again with my R leg, was admitted here for R leg staph infection and now i started to seep fluids on my R leg; denies fever and chills;. Transition of care: patient was not received from another setting of care. Onset of symptoms was September 07, 2017. Care prior to arrival: None. 10:34 Method Of Arrival: Ambulatory 10:34 Acuity: ANGE 3 Triage Assessment: 10:37 General: Appears in no apparent distress. uncomfortable, Behavior is calm, cooperative, hj appropriate for age. Pain: Complains of pain in right grant. Historical: - Allergies: 10:36 No Known Allergies; hj - Home Meds: 10:36 amlodipine 5 mg tab 1 tab once daily [Active]; glimepiride 4 mg Oral tab 1 tab BID hj [Active]; guardiance [Active]; lisinopril 40 mg Oral tab 1 tab once daily [Active]; metformin 1,000 mg Oral tab 1 tab 2 times per day [Active]; Metoprolol Tartrate Oral [Active]; Victoza 2-Quoc subcutaneous [Active]; - PMHx: 10:36 Diabetes - IDDM; Hypertension; lower back pain with injecitons; - PSHx: 10:36 back; hj - Immunization history:: Adult Immunizations up to date. - Social history:: Smoking status: Patient/guardian denies using tobacco. Screenin:46 Abuse screen: Denies threats or abuse. Nutritional screening: No deficits noted. la1 Tuberculosis screening: No symptoms or risk factors identified. Fall Risk None identified. Assessment: 11:45 General: Appears in no apparent distress. Behavior is calm, cooperative. Pain: la1 Complains of pain in right ankle. Neuro: Level of Consciousness is awake, alert, obeys commands, Oriented to person, place, time, situation. Cardiovascular: Patient's skin is warm and dry. Cardiovascular: Denies chest pain, Heart tones S1 S2 present Edema is 3+ to left ankle and right ankle. Respiratory: Airway is patent Respiratory effort is even, unlabored, Respiratory pattern is regular, symmetrical. GI: Abdomen is obese. : No signs and/or symptoms were reported regarding the genitourinary system. 13:10 Reassessment: Patient appears in no apparent distress at this time. No changes from la1 previously documented assessment. Patient and/or family updated on plan of care and expected duration. Pain level reassessed. Patient is alert, oriented x 3, equal unlabored respirations, skin warm/dry/pink. 14:33 Reassessment: Patient appears in no apparent distress at this time. No changes from la1 previously documented assessment. Patient and/or family updated on plan of care and expected duration. Pain level reassessed. Patient is alert, oriented x 3, equal unlabored respirations, skin warm/dry/pink. 14:33 Reassessment: Dressing applied to RLE where edematous area was seeping clear fluid. la1 Vital Signs: 10:37 BP 127 / 68; Pulse 56; Resp 18; Temp 97.5(TE); Pulse Ox 98% on R/A; Weight 147.42 kg; hj Height 5 ft. 10 in. (177.80 cm); Pain 5/10; 13:31 BP 150 / 82; Pulse 50; Resp 16; Pulse Ox 97% on R/A; la1 16:16 BP 170 / 70; Pulse 54; Resp 16; Temp 97.6(TE); Pulse Ox 100% on R/A; la1 10:37 Body Mass Index 46.63 (147.42 kg, 177.80 cm) ED Course: 10:28 Patient arrived in ED. tw3 10:36 Triage completed. hj 10:37 Arm band placed on left wrist. hj 11:40 Weston Fonseca PA is PHCP. cp 11:40 Dakotah Gandhi MD is Attending Physician. cp 11:40 Jose G Blackwood, KRUNAL is Primary Nurse. la1 11:46 Bed in low position. Call light in reach. Adult w/ patient. la1 12:06 Initial lab(s) drawn, by me, by ED staff, sent to lab. Inserted saline lock: 20 gauge ms in right antecubital area, using aseptic technique. Blood collected. 12:58 Ultrasound completed. Patient tolerated well. sg3 13:35 X-ray completed. Portable x-ray completed in exam room. jr1 13:36 XRAY Chest (1 view) In Process Unspecified. EDMS 14:53 Latoya Mcknight MD is Hospitalizing Provider. cp 16:41 No provider procedures requiring assistance completed. Patient admitted, IV remains in la1 place. Administered Medications: 14:18 Drug: Lasix 40 mg Route: IVP; Site: right antecubital; la1 16:17 Follow up: Response: increased urine output la1 Outcome: 14:56 Decision to Hospitalize by Provider. cp 16:41 Admitted to Med/surg accompanied by tech, via wheelchair, room 215, Report called to [facility] bridgett 16:41 Condition: stable 16:41 Instructed on the need for admit. 16:42 Patient left the ED. fl1 Signatures: Dispatcher [employer] EDKS Jeannine Vaughn jr1 Larissa Ramires ms, Lee RN RN la1 Young Carrasco RN RN Weston Keller PA PA Alexa Ambrosio tw3 Chani Colón sg3 Corrections: (The following items were deleted from the chart) 10:40 10:37 Pulse 56bpm; Resp 18bpm; Pulse Ox 98% RA; Temp 97.5F Temporal; 147.42 kg; Height hj 5 ft. 10 in.; BMI: 46.6; Pain 5/10; hj 13:37 13:28 Ultrasound completed. Patient tolerated well. sg3 sg3 13:37 13:37 In radiology for Extrem Venous W Compression Mukund+VAS.RAD.BRZ. EDMS sg3
[2017-09-07] MEDS ORDERED: GLUCAGON 1 MG/VIAL IM PRN (15:31)
[2017-09-07] MEDS ORDERED: D50W 25 GM/50 ML SYRINGE IV PRN (15:31)
[2017-09-07] MEDS ORDERED: ACETAMINOPHEN 500 MG TAB PO PRN (15:31)
[2017-09-07] MEDS: INSULIN -REGULAR HUMAN 50 UNIT/0.5 ML ML SQ SCH ×2 (16:30→21:25)
[2017-09-07] MEDS ORDERED: ENOXAPARIN 40 MG/0.4 ML SQ SCH (17:00)
[2017-09-07 17:42] VITALS: BMI 48.3
[2017-09-07 20:25] VITALS: O2SAT 95
--- NOTE | 2017-09-07 22:30 | EKG ---
Test Date: 2017-09-07 Test Time: 12:50:18 Cash Controller: MEASUREMENT RESULTS: Intervals: Rate: 50 PA: 156 QRSD: 106 QT: 464 QTc: 423 Doss: P: 21 PA: 156 QRS: 65 T: 50 INTERPRETIVE STATEMENTS: Sinus bradycardia Incomplete right bundle branch block Borderline ECG Compared to ECG 01/13/2017 15:23:14 Incomplete right bundle-branch block now present Sinus tachycardia no longer present ST (T wave) deviation no longer present Myocardial infarct finding no longer present Electronically Signed On 09-07-17 22:29:47 CDT by Yobani Tavera
[2017-09-08 04:49] VITALS: TEMP 97.5
[2017-09-08 05:16] LABS: Absolute Lymphocytes (CBC) 1.4 K/uL (0.7-4.9); Absolute Monocytes 0.5 K/uL (0.1-1.3); Absolute Neutrophil 4.2 K/uL (1.8-8.0); Basophils % 0.9 % (0-1.3); Eosinophils % 4.5 % (0-4.4); Hematocrit 47.2 % (39.6-49.0); Lymphocytes % 21.4 % (15.3-44.8); MCV 83.3 fL (80-100); MPV 8.2 fL (7.6-11.3); Monocytes % 8.3 % (3.3-12.3); RBC Red Blood Cell Count 5.66 M/uL (4.33-5.43)
[2017-09-08 05:52] LABS: Potassium 4.3 mEq/L (3.6-5.0)
[2017-09-08] MEDS: INSULIN -REGULAR HUMAN 50 UNIT/0.5 ML ML SQ SCH (07:30)
[2017-09-08] MEDS ORDERED: GLIMEPIRIDE 2 MG TABLET PO SCH (08:00)
[2017-09-08] MEDS ORDERED: METFORMIN HCL 500 MG TAB PO SCH (08:00)
[2017-09-08] MEDS ORDERED: AMLODIPINE 5 MG TAB PO SCH (09:00)
[2017-09-08] MEDS ORDERED: FUROSEMIDE 40 MG/4 ML VIAL IV SCH (09:00)
[2017-09-08] MEDS ORDERED: METOPROLOL XL 50 MG TAB PO SCH (09:00)
[2017-09-08] MEDS ORDERED: HOME MED 1 EA UNK (Empagliflozin [Jardiance] 10 MG) PO SCH (09:00)
[2017-09-08] MEDS ORDERED: AMOX/K CLAV 875 MG TAB PO SCH (09:00)
[2017-09-08] MEDS ORDERED: LISINOPRIL 20 MG TAB PO SCH (09:00)
[2017-09-08 09:27] VITALS: BP 177/70
[2017-09-08 09:28] LABS: A1c Component 0.84 mg/dL; Hemoglobin A1c 6.8 % (4-6.0)
--- NOTE | 2017-09-09 07:09 | SS ---
Date of Discharge: 09/08/2017 Chief Complaint: Leg swelling and fluid leaking out of leg. History Of Present Illness: This is a 52-year-old male patient with prior history of cellulitis and leg swelling problem. He was doing fine and in his normal usual state of health until he says that f or last 1 week he has noted some redness and swelling of the right lower extremity and for last 2 day s, he started to notice some clear watery type of liquid coming out of his right leg from one particu lar area, where he had small superficial cut on the skin. Denies any fever. He is having some burni ng type of pain in his leg in this area in the lower leg. He came into emergency room with this. He also reported that for last 2 nights every time he was lying down, he had feeling like as if food an d liquid were coming up from his stomach into his chest and throat and he would have to sit up. Ther e is no definite evidence or history indicating any paroxysmal nocturnal dyspnea or orthopnea. The p atient denies any chest pain. After he came into emergency room with this complaint, ER physician ad mitted him to the hospital. I evaluated him this morning. Allergies: NO KNOWN ALLERGIES. Medications: List reviewed. Review of Systems: GI: As mentioned above. Musculoskeletal: As mentioned above. Dermatology: As mentioned above. All other systems reviewed and negative. Past Surgical History: Sinus surgery. Family History: Significant for colon cancer, prostate cancer. Social History: Negative for smoking or alcohol use. Past Medical History: Depression, cervical spinal stenosis, sleep apnea, hypertension, hyperlipidemi a, type 2 diabetes mellitus, lumbar radiculopathy. Physical Examination: Vital Signs: Temperature 97.6, pulse 66, respiratory rate 16, blood pressure 174/89, oxygen saturati on 98%. Height 5 feet 10 inches. Weight 337 pounds. General: Awake, alert, oriented, not in distress. HEENT: Head atraumatic, normocephalic. Conjunctivae nonerythematous. Sclerae white. Mouth, no thr ush or edema noted. Ears/Nose, no mass, lesion, discharge noted. Neck: Supple. No JVD, lymph nodes, bruit, thyromegaly noted. Lungs: Bilateral good equal air entry. Clear to auscultation. No rhonchi. No rales. Heart: Normal heart sounds, no murmur or gallop. Abdomen: Soft, bowel sounds normal. No guarding, rigidity, tenderness, mass, hepatosplenomegaly, di stention, or bruit noted. Extremities: Right leg has trace to grade 1 pedal edema and it is brawny type of appearance of the r ight leg. He has very small superficial cut on the medial part of the right mid leg and has very sma ll amount of clear fluid coming out of that area. Lower 1/3rd of right leg has slightly warm and sli ghtly tender skin. Skin on the lower extremity is brownish in color. Left lower extremity has some varicose veins. Skin: No rash, ulcer, cellulitis. Lymphatics: No lymph node enlargement in neck, supraclavicular, infraclavicular region. Neuro: No focal neurological deficit. Chest: Unremarkable. External Genitalia: Deferred. Rectal: Deferred. Laboratory Data: Yesterday, white count 6.7, hemoglobin 14.3, platelets 200. Today, white count 6.4 , hemoglobin 15.3, platelets 208. Yesterday, sodium 136, potassium 4.6, chloride 105, bicarb 29, BUN 17, creatinine 0.78, glucose 152. Liver function tests; SGOT 51, SGPT 99. Troponin less than 0.03. BNP is 27. Today, sodium 139, potassium 4.3, chloride 102, bicarb 29, BUN 18, creatinine 0.92, glu cose 122. His EKG; sinus bradycardia, incomplete right bundle branch block. His chest x-ray; no acute cardiopu lmonary changes. No evidence of any infiltrate. No evidence of any congestive heart failure changes on the chest x-ray. His venous Doppler of lower extremity; no evidence of DVT in either lower extre mity. Hospital Course: After I saw the patient, there was no concern about any congestive heart failure ty pe of problem. His presentation is more like cellulitis of the right lower extremity with concern ab out possibility of underlying lymphedema of the leg. I did start him on Augmentin and informed him t hat he is medically stable for discharge with outpatient followup at my office next week and at that time, we will decide about referral to Lymphedema [facility] for him. Details and plan of treatment disc ussed with him. The patient will continue his home medication as before. Follow up at my office in 1 week and take Augmentin 875 mg twice a day for 10 days as prescribed. Final Diagnoses: 1.Cellulitis, right leg. 2.Lymphedema, legs. 3.Hypertension. 4.Hyperlipidemia. 5.Type 2 diabetes mellitus. 6.Lumbar radiculopathy. 7.Cervical spinal stenosis. 8.Sleep apnea. WALT/MODL Voice ID: [id number] Report ID: [id number]
== END 2017-09-08 10:25 | disposition home or self-care (01) ==
LOC: ER 10:26 → INTOOBSV 14:56 → ERHOLD 14:56 → 2ND 16:35
PROVIDERS: ADMIT Internal Medicine; ATTEND Internal Medicine
DX: L03.115 Cellulitis of right lower limb (principal); I89.0 Lymphedema, not elsewhere classified; I10 Essential (primary) hypertension; E78.5 Hyperlipidemia, unspecified; E11.9 Type 2 diabetes mellitus without complications; F32.9 Major depressive disorder, single episode, unspecified; M54.16 Radiculopathy, lumbar region; G47.30 Sleep apnea, unspecified; M48.02 Spinal stenosis, cervical region
CPT/HCPCS: 36415; 71045; 80048; 80076; 81003; 82550; 82553; 82962; 83036; 83735; 83880; 84484; 85025; 85610; 85730; 93005; 93970; 96374; 99285; G0378; J1650

== ENCOUNTER 2017-11-22 10:29 | Emergency (ER) | payer BC ==
--- OUTSIDE RECORDS SUMMARY | 2017-11-22 11:01 | XMS REPORT | Summary of Care ---
:1965 Author Organization [facility] Spine [facility] Address [address] [place] [address], [facility] [address] [place] [address]- Encounter HQ Danielle_fransico(FIN) [id number] Date(s): 04/24/17 - 04/25/17 [facility] Spine [address] [place], [place] [address] [phone] Vital Signs No data available for this section Problem List Condition Effective Dates Status Health Status Informant Abdominal pain in male(Confirmed) Resolved Chest pain(Confirmed) Resolved Back pain, chronic(Confirmed) Resolved Diabetes(Confirmed) Active High cholesterol(Confirmed) Active High blood pressure(Confirmed) Active Morbid obesity(Confirmed) Active Lumbar herniated disc(Confirmed) Active Allergies, Adverse Reactions, Alerts Substance Reaction Severity Status NKDA Active Medications No data available for this section Results No data available for this section Immunizations No data available for this section Procedures Procedure Date Related Diagnosis Body Site Ear operations Lumbar epidural injection Lumbar epidural steroid injection Nose operation Operation Social History Social History Type Response Smoking Status Former smoker; Type: Cigarettes; Exposure to Tobacco Smoke None ; Cigarette Smoking Last 365 Days No; Reg Smoking Cessation Counseling No Assessment and Plan No data available for this section
--- OUTSIDE RECORDS SUMMARY | 2017-11-22 11:01 | XMS REPORT | Summary of Care ---
:1965 Author Organization [facility] Spine [facility] Address [facility] [address] [place] [address]- Encounter HQ Jarredntr_fransico(FIN) [id number] Date(s): 04/30/17 - 05/01/17 [facility] Spine [address] [place], [place] [address] [phone] Vital Signs No data available for this [...]
--- OUTSIDE RECORDS SUMMARY | 2017-11-22 11:01 | XMS REPORT | Summary of Care ---
:1965 Author Organization [facility] Address [address] [place], [place] [address]- Encounter HQ Danielle_fransico(FIN) [id number] Date(s): 04/29/17 - 04/29/[address] [address]- [place] Discharge Disposition: Home or Self Care Attending Physician: Deangelo Lau MD Referring Physician: Deangelo Lau MD Vital Signs Most recent to oldest [Reference Range]: 1 Height 177.8 cm (04/29/17 9:23 AM) Blood Pressure [90-140/60-90 mmHg] 140/73 mmHg (04/29/17 9:00 AM) Respiratory Rate [14-20 BRMIN] 20 BRMIN (04/29/17 9:00 AM) Peripheral Pulse Rate [60-100 bpm] 66 bpm (04/29/17 9:00 AM) Weight 141.36 kg (04/29/17 9:23 AM) Body Mass Index 44.72 m2 (04/29/17 9:23 AM) Problem List Condition Effective Dates Status Health Status Informant Abdominal pain in male(Confirmed) Resolved Chest pain(Confirmed) Resolved Back pain, chronic(Confirmed) Resolved Diabetes(Confirmed) Active High cholesterol(Confirmed) Active High blood pressure(Confirmed) Active Morbid obesity(Confirmed) Active Lumbar herniated disc(Confirmed) Active Allergies, Adverse Reactions, Alerts Substance Reaction Severity Status NKDA Active Medications No data available for this section Results CHEM PANEL Most recent to oldest [Reference Range]: 1 Creatinine Lvl [0.50-1.40 mg/dL] 0.92 mg/dL (04/29/17 9:26 AM) eGFR 95 mL/min/1.73m2 1 *NA* (04/29/17 9:26 AM) BUN [7-22 mg/dL] 21 mg/dL (04/29/17 9:26 AM) 1Result Comment: The eGFR is calculated using the CKD-EPI formula. In most young , healthy individualsthe eGFR will be >90 mL/min/1.73m2. The eGFR declines with age. An eGFR of 60-89 may be normal insome populations, particularly the elderly, for whom the CKD-EPI formula has not been extensively validated. Use of the eGFR is not recommended in the following populations: Individuals with unstable creatinine concentrations, including patients and those with serious co-morbid conditions. Patients with extremes in muscle mass or diet. The data above are obtained from the National Kidney Disease Education Program ( NKDEP) which additionally recommends that when the eGFR is used in patients with extremes of body mass index for purposesof drug dosing, the eGFR should be multiplied by the estimated BMI.HEMATOLOGY Most recent to oldest [Reference Range]: 1 WBC [3.7-10.4 K/CMM] 7.2 K/CMM (04/29/17 9:26 AM) RBC [4.70-6.10 M/CMM] 4.87 M/CMM (04/29/17 9:26 AM) Hgb [14.0-18.0 g/dL] 13.6 g/dL *LOW* (04/29/17 9:26 AM) Hct [42.0-54.0 %] 41.3 % *LOW* (04/29/17 9:26 AM) MCV [80.0-94.0 fL] 84.7 fL (04/29/17 9:26 AM) MCH [27.0-31.0 pg] 27.9 pg (04/29/17 9:26 AM) MCHC [32.0-36.0 g/dL] 32.9 g/dL (04/29/17 9:26 AM) RDW [11.5-14.5 %] 16.1 % *HI* (04/29/17 9:26 AM) Platelet [133-450 K/CMM] 239 K/CMM (04/29/17 9:26 AM) MPV [7.4-10.4 fL] 8.0 fL (04/29/17 9:26 AM) PT [12.0-14.7 seconds] 12.8 seconds (04/29/17 10:42 AM) INR [0.85-1.17] 0.96 (04/29/17 10:42 AM) PTT [22.9-35.8 seconds] 29.4 seconds (04/29/17 10:42 AM) Immunizations No data available for this section Procedures Procedure Date Related Diagnosis Body Site Myelography via lumbar injection, including 04/29/17 radiological supervision and interpretation; lumbosacral Myelography via lumbar injection, including 04/29/17 radiological supervision and interpretation; thoracic Ear operations Lumbar epidural injection Lumbar epidural steroid injection Nose operation Operation Social History Social History Type Response Smoking Status Former smoker; Type: Cigarettes; Exposure to Tobacco Smoke None ; Cigarette Smoking Last 365 Days No; Reg Smoking Cessation Counseling No Assessment and Plan No data available for this section
--- OUTSIDE RECORDS SUMMARY | 2017-11-22 11:01 | XMS REPORT | Summary of Care ---
:1965 Author Organization [facility] Spine [facility] Address [address] [facility] [address] [place] [address]- Encounter HQ Danielle_fransico(FIN) [id number] Date(s): 04/24/17 - 04/25/17 [facility] Spine [address] [place], [place] [address] [phone] Vital Signs No data available for this [...]
--- OUTSIDE RECORDS SUMMARY | 2017-11-22 11:01 | XMS REPORT | Summary of Care ---
:1965 Author Organization [facility] Spine [facility] Address [address] [facility] [address] [place] [address]- Encounter HQ Talat(FIN) [id number] Date(s): 04/25/17 - 04/25/17 [facility] Spine [address] [place] [phone] Discharge Disposition: Home or Self Care Attending Physician: Camacho Jesus MD Referring Physician: Harjeet Mcknight MD Vital Signs No data available for this section Problem List Condition Effective Dates Status Health Status Informant Abdominal pain in male(Confirmed) Resolved Chest pain(Confirmed) Resolved Back pain, chronic(Confirmed) Resolved Diabetes(Confirmed) Active High cholesterol(Confirmed) Active High blood pressure(Confirmed) Active Morbid obesity(Confirmed) Active Lumbar herniated disc(Confirmed) Active Allergies, Adverse Reactions, Alerts Substance Reaction Severity Status NKDA Active Medications amitriptyline 10 mg oral tablet 10 mg=1 tab, PO, Bedtime, 4 tabs at bedtime for 1 week then 5 tabs at bedtime thereafter, # 150 tab,2 Refill(s), Pharmacy: [id number] Start Date: 04/25/17 Status: Orderedbupivacaine 0.25% 2 mL, Route: EPIDURAL, Dosing Weight 141.364, kg, ONCE, (Preservative Free), Start date: 04/25/17 8:50:00 PAYABLE MANAGER, Stop date: 04/25/17 8:50:00 PAYABLE MANAGER Start Date: 04/25/17 Stop Date: 04/25/17 Status: Ordereddexamethasone 8 mg, Route: EPIDURAL, ONCE, Dosing Weight 141.364, kg, (Preservative Free), Start date: 04/25/17 8:50:00 PAYABLE MANAGER, Stop date: 04/25/17 8:50:00 PAYABLE MANAGER Start Date: 04/25/17 Stop Date: 04/25/17 Status: Ordereddiclofenac sodium 75 mg oral enteric coated, delayed-release tablet 75 mg=1 tab, PO, BID, PRN Pain Score 7-10, # 60 tab, 2 Refill(s), Pharmacy: [id number] Start Date: 04/25/17 Status: OrderedFlexeril 10 mg oral tablet 10 mg=1 tab, PO, BID, # 60 tab, 2 Refill(s), Pharmacy: [id number] Start Date: 04/25/17 Stop Date: 07/24/17 Status: Orderedlidocaine 1% injectable solution 3 mL, Route: SUB-Q, Dosing Weight 141.364, kg, ONCE, (Preservative Free), Start date: 04/25/17 8:50:00 PAYABLE MANAGER, Stop date: 04/25/17 8:50:00 PAYABLE MANAGER Start Date: 04/25/17 Stop Date: 04/25/17 Status: OrderedOmnipaque 300 2 mL, Route: EPIDURAL, Dosing Weight 141.364, kg, ONCE, (Preservative Free), Start date: 04/25/17 8:50:00 PAYABLE MANAGER, Stop date: 04/25/17 8:50:00 PAYABLE MANAGER Start Date: 04/25/17 Stop Date: 04/25/17 Status: Orderedsodium chloride 0.9% (PF) diluent 4.2 mL, Route: EPIDURAL, Dosing Weight 141.364, kg, ONCE, (Preservative Free), Start date: 04/25/17 8:50:00 PAYABLE MANAGER, Stop date: 04/25/17 8:50:00 PAYABLE MANAGER Start Date: 04/25/17 Stop Date: 04/25/17 Status: Ordered Results No data available for this section Immunizations No data available for this section Procedures Procedure Date Related Diagnosis Body Site NJX INTERLAMINAR LMBR/SA 04/25/17 Ear operations Lumbar epidural injection Lumbar epidural steroid injection Nose operation Operation Social History Social History Type Response Smoking Status Former smoker; Type: Cigarettes; Exposure to Tobacco Smoke None ; Cigarette Smoking Last 365 Days No; Reg Smoking Cessation Counseling No Assessment and Plan No data available for this section
--- OUTSIDE RECORDS SUMMARY | 2017-11-22 11:01 | XMS REPORT | Summary of Care ---
:1965 Author Organization [facility] Spine [facility] Address [facility] [address] [place] [address]- Encounter HQ Jarredntr_fransico(FIN) [id number] Date(s): 06/06/17 - 06/07/17 [facility] Spine [address] [place] [phone] Vital Signs No data available for this [...] Procedures Procedure Date Related Diagnosis Body Site Status Ear operations Completed Lumbar epidural injection Completed Lumbar epidural steroid injection Completed Nose operation Completed Operation Completed Social History Social History Type Response Smoking Status Former smoker; Type: Cigarettes; Exposure to Tobacco Smoke None ; Cigarette Smoking Last 365 Days No; Reg Smoking Cessation Counseling No entered on: 06/05/17 Assessment and Plan No data available for this section
--- OUTSIDE RECORDS SUMMARY | 2017-11-22 11:01 | XMS REPORT | Continuity of Care Document ---
:1965 Author Organization Interface Problems Problem Status Onset Classification Date Comments Source Date Reported LUMBAR STENOSIS Active [address] M54.[address] Abdominal pain Resolved Problem 09/13/2017 [facility] in [facility] Chest pain Resolved Problem 09/13/2017 [facility] Back pain, Resolved Problem 09/13/2017 [facility] chronic [facility] Diabetes Active Problem 09/13/2017 [facility] High Active Problem 09/13/2017 [facility] cholesterol [facility] High blood Active Problem 09/13/2017 [facility] pressure [facility] Morbid obesity Active Problem 09/13/2017 [facility] Lumbar Active Problem 09/13/2017 [facility] herniated disc [facility] Medications Medication Details Route Status Patient Ordering Order Source Instructions Provider Date amitriptyline 10
10 Active [facility] mg oral tablet mg=1 tab, 017 Neuro PO, Bedtime, 4 tabs at bedtime for 1 week then 5 tabs at bedtime thereafter , # 150 tab, 2 Refill(s), Pharmacy: [id number] diclofenac sodium
75 Active [facility] 75 mg oral enteric mg=1 tab, 017 Neuro coated, PO, BID, delayed-release PRN Pain tablet Score 7-10, # 60 tab, 2 Refill(s), [id number] Cyclobenzaprine
10 Active [facility] hydrochloride 10 mg=1 tab, 017 Neuro MG Oral Tablet PO, BID, # [Flexeril] 60 tab, 2 Refill(s), Pharmacy: [id number] Sodium Chloride
4.2 Inactive [facility] mL, Route: 017 Neuro EPIDURAL, Dosing Weight 141.364, kg, ONCE, (Preservat liliana Free), Start date: 04/25/17 8:50:00 [employer], Stop date: 04/25/17 8:50:00 [employer] Lidocaine
3 mL, Inactive [facility] Hydrochloride 10 Route: 017 Neuro MG/ML Injectable SUB-Q, Solution Dosing Weight 141.364, kg, ONCE, (Preservat liliana Free), Start date: 04/25/17 8:50:00 [employer], Stop date: 04/25/17 8:50:00 [employer] Omnipaque 300
2 mL, Inactive [facility] Route: 017 Neuro EPIDURAL, Dosing Weight 141.364, kg, ONCE, (Preservat liliana Free), Start date: 04/25/17 8:50:00 [employer], Stop date: 04/25/17 8:50:00 [employer] Dexamethasone
8 mg, Inactive [facility] Route: 017 Neuro EPIDURAL, ONCE, Dosing Weight 141.364, kg, (Preservat liliana Free), Start date: 04/25/17 8:50:00 [employer], Stop date: 04/25/17 8:50:00 [employer] Bupivacaine
2 mL, Inactive [facility] Hydrochloride 2.5 Route: 017 Neuro MG/ML Injectable EPIDURAL, Solution Dosing Weight 141.364, kg, ONCE, (Preservat liliana Free), Start date: 04/25/17 8:50:00 [employer], Stop date: 04/25/17 8:50:00 [employer] Allergies, Adverse Reactions, Alerts Substance Category Reaction Severity Reaction Status Date Comments Source type Reported NKDA Assertion Drug Active [facility] allergy Neuro Immunizations Immunization Date Given Site Status Last Updated Comments Source Results Order Name Results Value Reference Date Interpretation Comments Source Range HEMATOLOGY PTT 29.4 s 22.9 - 04/29 [facility] 35.8 /2017 [facility] HEMATOLOGY PT 12.8 s 12.0 - 04/29 [facility] 14.7 /2016 [facility] HEMATOLOGY INR 0.96 0.85 - 04/29 [facility] 1. [facility] CHEM PANEL eGFR 95 04/29 Result Comment: The eGFR is calculated using the CKD-EPI formula. In most young, healthy individuals the eGFR will be >90 mL/ min/1.73m2. The eGFR declines with age. An eGFR of 60-89 may be normal in [facility] mL/min/1.73 some populations, particularly the elderly, for whom the CKD-EPI formula has not been extensively validated. Use of the eGFR is not recommended in the following populations: [place] [address] [facility] Individuals with unstable creatinine concentrations, including patients and those with serious co-morbid conditions. Patients with extremes in muscle mass or diet. The data above are obtained from the National Kidney Disease Education Program (NKDEP) which additionally recommends that when the eGFR is used in patients with extremes of body mass index for purposes of drug dosing, the eGFR should be multiplied by the estimated BMI. CHEM PANEL Creatinine 0.92 mg/dL 0.50 - 04/29 [facility] Lvl 1.40 [facility] CHEM PANEL BUN 21 mg/dL 7 - 22 04/29 [facility] HEMATOLOGY MCV 84.7 fL 80.0 - 04/29 [facility] 94.0 [facility] HEMATOLOGY Hct 41.3 % 42.0 - 04/29 [facility] 54.0 /2016 [facility] HEMATOLOGY MCH 27.9 pg 27.0 - 04/29 [facility] 31.0 [facility] HEMATOLOGY MCHC 32.9 g/dL 32.0 - 04/29 [facility] 36.0 [facility] HEMATOLOGY WBC 7.2 K/CMM 3.7 - 10.4 04/29 [facility] HEMATOLOGY RBC 4.87 M/CMM 4.70 - 04/29 [facility] 6.10 [facility] HEMATOLOGY Hgb 13.6 g/dL 14.0 - 04/29 [facility] 18.0 [facility] HEMATOLOGY RDW 16.1 % 11.5 - 04/29 [facility] 14.5 [facility] HEMATOLOGY Platelet 239 K/CMM 133 - 450 04/29 [facility] HEMATOLOGY MPV 8.0 fL 7.4 - 10.4 04/29 [facility] [address] [place] [address] Spine Spine EXAM: CT MYELOGRAM LUMBAR SPINE 04/29 - [facility] lumbar lumbar - Medical myelogram myelogram EXAM: CT MYELOGRAM THORACIC SPINE This report was dictated by a Hydrotechnical Specialist/Fellow. I have personally reviewed the images as Center CT CT well as the Resident's interpretation and agree with the findings. EXAM: FLUOROSCOPY-GUIDED LUMBAR PUNCTURE FOR CT MYELOGRAM Read by: Suly Salomon MD Resident: Suly Salomon MD Dictated Date/time: 04/29/17 13:24 Electronically Signed by: Dion Fraser MD 04/29/17 18:51 FINAL REPORT DATE: 04/29/2017 1012 hours INDICATION: Lumbar stenosis COMPARISON: None. PROCEDURE: An interlaminar lumbar puncture was carried out under fluoroscopic guidance with a 22 gauge 5" long spinal Quincke needle at the level of L2-L3 under the usual sterile conditions and loc al anesthesia. 12 mL of Iohexol-240 was instilled into the lumbar thecal sac. MYELOGRAMS: During the injection of contrast it was noted that the lumbar thecal sac was diffusely narrowed. Much of the injected contrast the lumbar spine preferentially flowed into the thoracic spina l canal. The lumbar spinal canal was narrowed and a smaller amount of contrast was entering the mid and lower lumbar spinal canal. The patient was therefore kept in a lateral decubitus position for 30 m inutes prior to CT scanning for better distribution of the contrast density. FLUOROSCOPIC TIME: 0.[address] Fraser, was present for the procedure. TECHNIQUE: Volumetric acquisition of the thoracic and lumbar spine, from the level of T 1 through the sacrum. The 1st image set showed adequate opacification of the lumbar and lower thoracic spine. Del ayed images after one hour showed excellent opacification of the remainder of the thoracic spine DLP: 1451 mGy-cm FINDINGS: THORACIC AND LUMBAR SPINE: Alignment of the thoracic spine is maintained. Intervertebral discs are normal. The spinal alignment is normal with presumably trauma related kyphotic deformity at L1-L2 as noted below. The thoracic spi nal canal is normal in size. Congenitally short pedicles are present from L2 to L5. The thoracic cord is normal in size and shape. Normal conus level at T12-L1. INDIVIDUAL LEVELS: T1-T2: Normal T2-T3 and T3-T4: Facet arthropathy on the left with bone spurs indenting the thecal sac from posteriorly. T4-T5: Normal T5-T6 and T6-T7: Midline bone spurs indenting the thecal sac. T7-T8: Tiny endplate spur on the right without neural compromise. T8-T9: Normal T9-T10: Disc osteophyte complex on the right abutting the cord with minimal cord deformity. T10-T11: Normal T11-T12: Uncovertebral bone spur on the left narrowing the foramen with encroachment upon the exiting left T11 nerve root T12-L1: Large disc osteophyte complex on the left side slightly indenting the ventral conus and extending into the foramen with encroachment upon the exiting left T12 nerve root. L1-L2: Spinal canal stenosis caused by central and left lateral vertebral osteophytes resulting in crowding of the cauda equina nerve roots. Anterior wedge deformity of the L1 and L2 vertebral bodies w ith large anterior osteophytes most likely due to old trauma. Mild to moderate kyphotic deformity at this level. L2-L3: Disc osteophyte complex indenting the thecal sac with crowding of the cauda equina roots. L3-L4: Bulging posterior annulus. Crowding of the cauda equina nerve roots. Vacuum disc phenomenon. L4-L5: Mildly diffusely bulging posterior annulus. Mild facet enlargement. Constriction of the thecal sac and mild crowding of cauda equina nerve roots. L5-S1: Normal IMPRESSION: 1. Acquired on congenital spinal stenosis from T9 through L4, due spondylotic disc osteophyte complexes, greatest from T12 to L2. 2. Cord and conus indentation by bone spurs from T9 down to L1. 3. Crowding of the cauda equina nerve roots by posterior endplate osteophytes from L1 to L2-L3, and by the combination of bulging discs and the congenital stenosis of the spinal canal at L3-L4 and L4-L5. 4. Constriction of the thecal sac is crowding of cauda equina nerve roots from L4 to L5. 5. Foraminal stenoses at T11-T12, T12-L1 and L1-L2 with encroachment upon the exiting nerve roots. Spine Spine EXAM: CT MYELOGRAM LUMBAR SPINE 04/29 - [facility] thoracic thoracic /2017 - Medical myelogram myelogram EXAM: CT MYELOGRAM THORACIC SPINE This report was dictated by a Hydrotechnical Specialist/Fellow. I have personally reviewed the images as Center CT CT well as the Resident's interpretation and agree with the findings. EXAM: FLUOROSCOPY-GUIDED LUMBAR PUNCTURE FOR CT MYELOGRAM Read by: Suly Salomon MD Resident: Suly Salomon MD Dictated Date/time: 04/29/17 13:24 Electronically Signed by: Dion Fraser MD 04/29/17 18:51 FINAL REPORT DATE: 04/29/2017 1012 hours INDICATION: Lumbar stenosis COMPARISON: None. PROCEDURE: An interlaminar lumbar puncture was carried out under fluoroscopic guidance with a 22 gauge 5" long spinal Quincke needle at the level of L2-L3 under the usual sterile conditions and loc al anesthesia. 12 mL of Iohexol-240 was instilled into the lumbar thecal sac. MYELOGRAMS: During the injection of contrast it was noted that the lumbar thecal sac was diffusely narrowed. Much of the injected contrast the lumbar spine preferentially flowed into the thoracic spina l canal. The lumbar spinal canal was narrowed and a smaller amount of contrast was entering the mid and lower lumbar spinal canal. The patient was therefore kept in a lateral decubitus position for 30 m inutes prior to CT scanning for better distribution of the contrast density. FLUOROSCOPIC TIME: 0.[address] Fraser, was present for the procedure. TECHNIQUE: Volumetric acquisition of the thoracic and lumbar spine, from the level of T 1 through the sacrum. The 1st image set showed adequate opacification of the lumbar and lower thoracic spine. Del ayed images after one hour showed excellent opacification of the remainder of the thoracic spine DLP: 1451 mGy-cm FINDINGS: THORACIC AND LUMBAR SPINE: Alignment of the thoracic spine is maintained. Intervertebral discs are normal. The spinal alignment is normal with presumably trauma related kyphotic deformity at L1-L2 as noted below. The thoracic spi nal canal is normal in size. Congenitally short pedicles are present from L2 to L5. The thoracic cord is normal in size and shape. Normal conus level at T12-L1. INDIVIDUAL LEVELS: T1-T2: Normal T2-T3 and T3-T4: Facet arthropathy on the left with bone spurs indenting the thecal sac from posteriorly. T4-T5: Normal T5-T6 and T6-T7: Midline bone spurs indenting the thecal sac. T7-T8: Tiny endplate spur on the right without neural compromise. T8-T9: Normal T9-T10: Disc osteophyte complex on the right abutting the cord with minimal cord deformity. T10-T11: Normal T11-T12: Uncovertebral bone spur on the left narrowing the foramen with encroachment upon the exiting left T11 nerve root T12-L1: Large disc osteophyte complex on the left side slightly indenting the ventral conus and extending into the foramen with encroachment upon the exiting left T12 nerve root. L1-L2: Spinal canal stenosis caused by central and left lateral vertebral osteophytes resulting in crowding of the cauda equina nerve roots. Anterior wedge deformity of the L1 and L2 vertebral bodies w ith large anterior osteophytes most likely due to old trauma. Mild to moderate kyphotic deformity at this level. L2-L3: Disc osteophyte complex indenting the thecal sac with crowding of the cauda equina roots. L3-L4: Bulging posterior annulus. Crowding of the cauda equina nerve roots. Vacuum disc phenomenon. L4-L5: Mildly diffusely bulging posterior annulus. Mild facet enlargement. Constriction of the thecal sac and mild crowding of cauda equina nerve roots. L5-S1: Normal IMPRESSION: 1. Acquired on congenital spinal stenosis from T9 through L4, due spondylotic disc osteophyte complexes, greatest from T12 to L2. 2. Cord and conus indentation by bone spurs from T9 down to L1. 3. Crowding of the cauda equina nerve roots by posterior endplate osteophytes from L1 to L2-L3, and by the combination of bulging discs and the congenital stenosis of the spinal canal at L3-L4 and L4-L5. 4. Constriction of the thecal sac is crowding of cauda equina nerve roots from L4 to L5. 5. Foraminal stenoses at T11-T12, T12-L1 and L1-L2 with encroachment upon the exiting nerve roots. Spine Spine EXAM: CT MYELOGRAM LUMBAR SPINE 04/29 - [facility] thoracic thoracic /2017 - Medical myelogram myelogram EXAM: CT MYELOGRAM THORACIC SPINE This report was dictated by a Hydrotechnical Specialist/Fellow. I have personally reviewed the images as Center DX DX well as the Resident's interpretation and agree with the findings. EXAM: FLUOROSCOPY-GUIDED LUMBAR PUNCTURE FOR CT MYELOGRAM Read by: Suly Salomon MD Resident: Suly Salomon MD Dictated Date/time: 04/29/17 13:24 Electronically Signed by: Dion Fraser MD 04/29/17 18:51 FINAL REPORT DATE: 04/29/2017 1012 hours INDICATION: Lumbar stenosis COMPARISON: None. PROCEDURE: An interlaminar lumbar puncture was carried out under fluoroscopic guidance with a 22 gauge 5" long spinal Quincke needle at the level of L2-L3 under the usual sterile conditions and loc al anesthesia. 12 mL of Iohexol-240 was instilled into the lumbar thecal sac. MYELOGRAMS: During the injection of contrast it was noted that the lumbar thecal sac was diffusely narrowed. Much of the injected contrast the lumbar spine preferentially flowed into the thoracic spina l canal. The lumbar spinal canal was narrowed and a smaller amount of contrast was entering the mid and lower lumbar spinal canal. The patient was therefore kept in a lateral decubitus position for 30 m inutes prior to CT scanning for better distribution of the contrast density. FLUOROSCOPIC TIME: 0.[address] Fraser, was present for the procedure. TECHNIQUE: Volumetric acquisition of the thoracic and lumbar spine, from the level of T 1 through the sacrum. The 1st image set showed adequate opacification of the lumbar and lower thoracic spine. Del ayed images after one hour showed excellent opacification of the remainder of the thoracic spine DLP: 1451 mGy-cm FINDINGS: THORACIC AND LUMBAR SPINE: Alignment of the thoracic spine is maintained. Intervertebral discs are normal. The spinal alignment is normal with presumably trauma related kyphotic deformity at L1-L2 as noted below. The thoracic spi nal canal is normal in size. Congenitally short pedicles are present from L2 to L5. The thoracic cord is normal in size and shape. Normal conus level at T12-L1. INDIVIDUAL LEVELS: T1-T2: Normal T2-T3 and T3-T4: Facet arthropathy on the left with bone spurs indenting the thecal sac from posteriorly. T4-T5: Normal T5-T6 and T6-T7: Midline bone spurs indenting the thecal sac. T7-T8: Tiny endplate spur on the right without neural compromise. T8-T9: Normal T9-T10: Disc osteophyte complex on the right abutting the cord with minimal cord deformity. T10-T11: Normal T11-T12: Uncovertebral bone spur on the left narrowing the foramen with encroachment upon the exiting left T11 nerve root T12-L1: Large disc osteophyte complex on the left side slightly indenting the ventral conus and extending into the foramen with encroachment upon the exiting left T12 nerve root. L1-L2: Spinal canal stenosis caused by central and left lateral vertebral osteophytes resulting in crowding of the cauda equina nerve roots. Anterior wedge deformity of the L1 and L2 vertebral bodies w ith large anterior osteophytes most likely due to old trauma. Mild to moderate kyphotic deformity at this level. L2-L3: Disc osteophyte complex indenting the thecal sac with crowding of the cauda equina roots. L3-L4: Bulging posterior annulus. Crowding of the cauda equina nerve roots. Vacuum disc phenomenon. L4-L5: Mildly diffusely bulging posterior annulus. Mild facet enlargement. Constriction of the thecal sac and mild crowding of cauda equina nerve roots. L5-S1: Normal IMPRESSION: 1. Acquired on congenital spinal stenosis from T9 through L4, due spondylotic disc osteophyte complexes, greatest from T12 to L2. 2. Cord and conus indentation by bone spurs from T9 down to L1. 3. Crowding of the cauda equina nerve roots by posterior endplate osteophytes from L1 to L2-L3, and by the combination of bulging discs and the congenital stenosis of the spinal canal at L3-L4 and L4-L5. 4. Constriction of the thecal sac is crowding of cauda equina nerve roots from L4 to L5. 5. Foraminal stenoses at T11-T12, T12-L1 and L1-L2 with encroachment upon the exiting nerve roots. Spine Spine EXAM: CT MYELOGRAM LUMBAR SPINE 04/29 - [facility] lumbar /2016 - Medical myelogram myelogram EXAM: CT MYELOGRAM THORACIC SPINE This report was dictated by a Hydrotechnical Specialist/Fellow. I have personally reviewed the images as Center DX DX well as the Resident's interpretation and agree with the findings. EXAM: FLUOROSCOPY-GUIDED LUMBAR PUNCTURE FOR CT MYELOGRAM Read by: Suly Salomon MD Resident: Suly Salomon MD Dictated Date/time: 04/29/17 13:24 Electronically Signed by: Dion Fraser MD 04/29/17 18:51 FINAL REPORT DATE: 04/29/2017 1012 hours INDICATION: Lumbar stenosis COMPARISON: None. PROCEDURE: An interlaminar lumbar puncture was carried out under fluoroscopic guidance with a 22 gauge 5" long spinal Quincke needle at the level of L2-L3 under the usual sterile conditions and loc al anesthesia. 12 mL of Iohexol-240 was instilled into the lumbar thecal sac. MYELOGRAMS: During the injection of contrast it was noted that the lumbar thecal sac was diffusely narrowed. Much of the injected contrast the lumbar spine preferentially flowed into the thoracic spina l canal. The lumbar spinal canal was narrowed and a smaller amount of contrast was entering the mid and lower lumbar spinal canal. The patient was therefore kept in a lateral decubitus position for 30 m inutes prior to CT scanning for better distribution of the contrast density. FLUOROSCOPIC TIME: 0.[address] Fraser, was present for the procedure. TECHNIQUE: Volumetric acquisition of the thoracic and lumbar spine, from the level of T 1 through the sacrum. The 1st image set showed adequate opacification of the lumbar and lower thoracic spine. Del ayed images after one hour showed excellent opacification of the remainder of the thoracic spine DLP: 1451 mGy-cm FINDINGS: THORACIC AND LUMBAR SPINE: Alignment of the thoracic spine is maintained. Intervertebral discs are normal. The spinal alignment is normal with presumably trauma related kyphotic deformity at L1-L2 as noted below. The thoracic spi nal canal is normal in size. Congenitally short pedicles are present from L2 to L5. The thoracic cord is normal in size and shape. Normal conus level at T12-L1. INDIVIDUAL LEVELS: T1-T2: Normal T2-T3 and T3-T4: Facet arthropathy on the left with bone spurs indenting the thecal sac from posteriorly. T4-T5: Normal T5-T6 and T6-T7: Midline bone spurs indenting the thecal sac. T7-T8: Tiny endplate spur on the right without neural compromise. T8-T9: Normal T9-T10: Disc osteophyte complex on the right abutting the cord with minimal cord deformity. T10-T11: Normal T11-T12: Uncovertebral bone spur on the left narrowing the foramen with encroachment upon the exiting left T11 nerve root T12-L1: Large disc osteophyte complex on the left side slightly indenting the ventral conus and extending into the foramen with encroachment upon the exiting left T12 nerve root. L1-L2: Spinal canal stenosis caused by central and left lateral vertebral osteophytes resulting in crowding of the cauda equina nerve roots. Anterior wedge deformity of the L1 and L2 vertebral bodies w ith large anterior osteophytes most likely due to old trauma. Mild to moderate kyphotic deformity at this level. L2-L3: Disc osteophyte complex indenting the thecal sac with crowding of the cauda equina roots. L3-L4: Bulging posterior annulus. Crowding of the cauda equina nerve roots. Vacuum disc phenomenon. L4-L5: Mildly diffusely bulging posterior annulus. Mild facet enlargement. Constriction of the thecal sac and mild crowding of cauda equina nerve roots. L5-S1: Normal IMPRESSION: 1. Acquired on congenital spinal stenosis from T9 through L4, due spondylotic disc osteophyte complexes, greatest from T12 to L2. 2. Cord and conus indentation by bone spurs from T9 down to L1. 3. Crowding of the cauda equina nerve roots by posterior endplate osteophytes from L1 to L2-L3, and by the combination of bulging discs and the congenital stenosis of the spinal canal at L3-L4 and L4-L5. 4. Constriction of the thecal sac is crowding of cauda equina nerve roots from L4 to L5. 5. Foraminal stenoses at T11-T12, T12-L1 and L1-L2 with encroachment upon the exiting nerve roots. Spine T-L Spine T-L EXAM: XR ENTIRE SPINE 2 VIEWS 03/19 - [facility] (or entire) (or entire) /2016 - Medical 6+ Views DX 6+ Views DX Center DATE: 03/19/2017 10:49 AM CDT Read by: Janet Delong MD Dictated Date/time: 03/19/17 14:31 Electronically Signed by: Janet Delong MD 03/19/17 14:33 FINAL REPORT INDICATION: - STANDING 36" AP/LAT FILMS FROM SKULL TO FEMORAL HEADS COMPARISON: None TECHNIQUE: AP and lateral radiographs of the lumbar spine FINDINGS: Alignment and vertebral body heights are intact throughout the entire spine. Spondylitic changes with degenerative disc disease noted in the upper lumbar spine. Facet arthropathy throughout th e lumbar spine. No osseous lesions. No soft tissue abnormality is identified. IMPRESSION: Mild spondylotic changes in the thoracolumbar spine. Vital Signs Vital Sign Value Date Comments Source Height 177.8 cm 06/05/2017 [facility] Weight 146.818 06/05/2017 [facility] BMI Calculated 46.44 06/05/2017 [facility] Systolic (mm Hg) 130 06/05/2017 [facility] Diastolic (mm Hg) 83 06/05/2017 [facility] Temperature Oral (F) 99.3 F 06/05/2017 [facility] Heart Rate 70 06/05/2017 [facility] BMI Calculated 44.72 04/29/2017 [facility] Weight 141.36 04/29/2017 [facility] Height 177.8 cm 04/29/2017 [facility] Heart Rate 66 04/29/2017 [facility] Respitory Rate 20 04/29/2017 [facility] Systolic (mm Hg) 140 04/29/2017 [facility] Diastolic (mm Hg) 73 04/29/2017 [facility] Encounters Location Location Encounter Encounter Reason Attending ADM DC Status Source Details Type Number For Provider Date Date Visit Outpatient [id number] VIOLA 08/19 [facility] [id number] MANJINDER KOWALSKI 09/04 [facility] Outpatient [id number] MANJINDER KOWALSKI 03/19 [facility] Mitesh Outpatient [id number] CONY 03/[address] [facility] Outpatient [id number] Manjinder Kowalski 03/19 03/20 [facility] Outpatient [id number] DULCE LAU 04/04 [facility] Phone [phone] 04/24 04/26 [facility] Phone [phone] 04/24 04/26 [facility] Outpatient [id number] CONY 04/[address] [facility] Mitesh [facility] Outpatient [id number] Harjeet 04/25 04/26 [facility]2016 [facility] [id number] Dulce Lau 04/29 04/30 [facility] /2016 [facility] Phone [phone] 04/30 05/02 [facility] Message /2016 [facility] Outpatient [id number] DULCE LAU 06/05 Active [facility] Mitesh [facility] Spine Outpatient [id number] Harjeet 06/05 06/06 [facility]2017 [facility] Phone [id number] 06/06 06/08 [facility] Neuro [facility] Outpatient [id number] DULCE LAU 12/04 Active [facility] Procedures Procedure Code Date Perfomer Comments Source Myelography via [address]66 04/29/2017 [facility] lumbar injection, [facility] radiological supervision and interpretation; thoracic Myelography via 13058 04/29/2017 [facility] [place] [facility]; lumbosacral NJX INTERLAMINAR 04/25/2017 [facility] LMBR/SA Ear operations [id number] [facility] Lumbar epidural [id number] [facility] injection Lumbar epidural [id number] [facility] steroid injection Nose operation [id number] [facility] Operation [id number] [facility] Ear operations [id number] [facility] Lumbar epidural [id number] [facility] Lumbar epidural [id number] [facility] steroid [facility] Nose operation [id number] [facility] Operation [id number] [facility]
--- OUTSIDE RECORDS SUMMARY | 2017-11-22 11:01 | XMS REPORT | Summary of Care ---
:1965 Author Organization [facility] Address [address], [place] [address]- Encounter HQ Jarredntr_fransico(FIN) [phone] Date(s): 03/19/17 - 03/19/[address] [address]- [place] Discharge Disposition: Home or Self Care Attending Physician: Manjinder Kowalski MD Vital Signs No data available for [...]
--- OUTSIDE RECORDS SUMMARY | 2017-11-22 11:02 | XMS REPORT ---
:1965 Author Organization [facility] Address [address] [place] [address] [address] [place] [address] Care Team Providers Name Role Phone LOPEZHAIMMADI Unavailable Unavailable TAMMY BETANCOURT Unavailable Unavailable Problems This patient has no known problems. Allergies, Adverse Reactions, Alerts This patient has no known allergies or adverse reactions. Medications This patient has no known medications. Results Test Description Test Time Test Comments Text Results Atomic Results Result Comments [facility] 2017-01-28 05:57:00 Test Item Value Reference Range [...] ( 4 - SerumAlbumin)] EGFR if >60 mL/min/1.73m\\S\\2 (test code=EGFRAA) EGFR if Non- >60 mL/min/1.73m\\S\\2 Estimated Glomerular Mauritanian (test Filtration Rate (eGFR) code=EGFRNA) Reference Intervals Decision [...] of chronic kidney failure. CBC WITH AUTO [id number] 05:42:00 Test Item Value Reference Range Comments [...] 1.0-3.0 IG% (test code=IG%) 1.0 % 0.0-0.4 [id number] 05:53:00 Test Item Value Reference Range Comments [...] mL/min/1.73m\\S\\2 EGFR if Non- >60 Estimated Glomerular [place]ian (test mL/min/1.73m\\S\\2 Filtration Rate (eGFR) code=EGFRNA) Reference [...] of chronic kidney failure. CBC WITH AUTO [id number] 05:27:00 Test Item Value Reference Range Comments [...] 1.0-3.0 IG% (test code=IG%) 1.7 % 0.0-0.4 [id number] 04:36:00 Test Item Value Reference Range Comments [...] mL/min/1.73m\\S\\2 EGFR if Non- >60 Estimated Glomerular [place]ian (test mL/min/1.73m\\S\\2 Filtration Rate (eGFR) code=EGFRNA) Reference [...] of chronic kidney failure. CBC WITH AUTO [id number] 04:14:00 Test Item Value Reference Range Comments [...] 1.0-3.0 IG% (test code=IG%) 1.9 % 0.0-0.4 [id number] 04:40:00 Test Item Value Reference Range Comments [...] mL/min/1.73m\\S\\2 EGFR if Non- >60 Estimated Glomerular [place]ian (test mL/min/1.73m\\S\\2 Filtration Rate (eGFR) code=EGFRNA) Reference [...] of chronic kidney failure. CBC WITH AUTO [id number] 04:09:00 Test Item Value Reference Range Comments [...] IG% (test code=IG%) 2.4 % 0.0-0.4 CULTURE, [id number] 06:50:00To start 15mins after 1st cultureSpecimen: BloodCollected: 01/18/2017 04:05 Status: Final Last Updated: 01/23/2017 06: 49 (1) To start 15mins after 1st culture Culture Result (Final) (Final ) No Growth After 5 DaysCULTURE, [id number] 06:50:00Specimen: BloodCollected: 01/18/2017 03:55 Status: Final Last Updated: 01/23/2017 06: 49 Culture Result (Final) (Final) No Growth After 5 DaysCBC WITH AUTO [id number] 04:31:00 Test Item Value Reference Range Comments [...] 1.0-3.0 IG% (test code=IG%) 3.4 % 0.0-0.4 [id number] 04:19:00 Test Item Value Reference Range Comments [...] mL/min/1.73m\\S\\2 EGFR if Non- >60 Estimated Glomerular [place]ian (test mL/min/1.73m\\S\\2 Filtration Rate (eGFR) code=EGFRNA) Reference [...] of chronic kidney failure. CBC WITH AUTO [id number] 04:57:00 Test Item Value Reference Range Comments [...] (test code=IG%) 4.0 % 0.0-0.4 CBC AUTO [id number] 04:35:00 Test Item Value Reference Range Comments [...] mL/min/1.73m\\S\\2 EGFR if Non- >60 Estimated Glomerular [place]ian (test mL/min/1.73m\\S\\2 Filtration Rate (eGFR) code=EGFRNA) Reference [...] of chronic kidney failure. CBC WITH AUTO [id number] 05:01:00 Test Item Value Reference Range Comments [...] (test code=IG%) 4.5 % 0.0-0.4 CBC AUTO [id number] 04:56:00 Test Item Value Reference Range Comments [...] mL/min/1.73m\\S\\2 EGFR if Non- >60 Estimated Glomerular [place]ian (test mL/min/1.73m\\S\\2 Filtration Rate (eGFR) code=EGFRNA) Reference [...] of chronic kidney failure. CBC WITH AUTO [id number] 05:57:00 Test Item Value Reference Range Comments [...] 1.0-3.0 IG% (test code=IG%) 4.8 % 0.0-0.4 [id number] 05:41:00 Test Item Value Reference Range Comments Magnesium (test code=MG) 2.0 mg/dl 1.6-2.3 [id number] 05:41:00 Test Item Value Reference Range Comments [...] mL/min/1.73m\\S\\2 EGFR if Non- >60 Estimated Glomerular [place]ian (test mL/min/1.73m\\S\\2 Filtration Rate (eGFR) code=EGFRNA) Reference [...] management of chronic kidney failure. LACTIC ACID [id number] 06:43:00 Test Item Value Reference Range Comments LACTATE (test code=LAC) 0.9 mmol/l 0.7-2.0 GLYCOSALATED [id number] 05:41:00 Test Item Value Reference Range Comments Hemoglobin A1C (test 9.06 % 4.3-6.0 code=GLYCO) Mean Plasma Glucose (test 245 mg/dl 90-180 WHEN TEST RESULTS FOR A1C code=MPG) EXCEED 14.0, THE LINEAR LIMIT OF THE INSTRUMENT, THE CALCULATED RESULT FOR THE MEAN GLUCOSE IS NOT RELIABLE. CORONARY [id number] 05:09:00 Test Item Value Reference Range Comments [...] Average vLDL (test code=VLDL) 37 mg/dl 30-60 [id number] 04:51:00 Test Item Value Reference Range Comments Magnesium (test code=MG) 2.1 mg/dl 1.6-2.3 [id number] 04:51:00 Test Item Value Reference Range Comments CPK (test code=CPK) 93 U/L 30-135 LIPASE, [id number] 04:43:00 Test Item Value Reference Range Comments Lipase (test code=LIPA) 116 U/L 8-223 [id number] 04:43:00 Test Item Value Reference Range Comments [...] mL/min/1.73m\\S\\2 EGFR if Non- >60 Estimated Glomerular Mauritanian (test mL/min/1.73m\\S\\2 Filtration Rate (eGFR) code=EGFRNA) Reference [...]
--- OUTSIDE RECORDS SUMMARY | 2017-11-22 11:02 | XMS REPORT | Summary of Care ---
:1965 Author Organization [facility] Spine [facility] Address [address] [place] [address] [address] [place] [address]- Encounter HQ Danielle_fransico(FIN) [phone] Date(s): 06/05/17 - 06/05/17 [facility] Spine [address] [place] [phone] Discharge Disposition: Home or Self Care Attending Physician: Deangelo Lau MD Referring Physician: Harjeet Mcknight MD Vital Signs Most recent to oldest [Reference Range]: 1 Height 177.8 cm (06/05/17 11:46 AM) Temperature Oral [96.4-99.1 DegF] 99.3 DegF *HI* (06/05/17 11:46 AM) Blood Pressure [90-140/60-90 mmHg] 130/83 mmHg (06/05/17 11:46 AM) Peripheral Pulse Rate [60-100 bpm] 70 bpm (06/05/17 11:46 AM) Weight 146.818 kg (06/05/17 11:46 AM) Body Mass Index 46.44 m2 (06/05/17 11:46 AM) Problem List Condition Effective Dates Status Health Status Informant Abdominal pain in male(Confirmed) Resolved Chest pain(Confirmed) Resolved Back pain, chronic(Confirmed) Resolved Diabetes(Confirmed) Active High cholesterol(Confirmed) Active High blood pressure(Confirmed) Active Morbid obesity(Confirmed) Active Lumbar herniated disc(Confirmed) Active Allergies, Adverse Reactions, Alerts Substance Reaction Severity Status NKDA Active Medications No Known Medications Results No data available for this section [...]
--- OUTSIDE RECORDS SUMMARY | 2017-11-22 11:02 | XMS REPORT | Summary of Care ---
:1965 Author Organization [facility] Spine [facility] Address [address] [place] [address] [address] [place] [address]- Encounter HQ Danielle_fransico(FIN) [phone] Date(s): 06/05/17 - 06/05/17 [facility] Spine [address] [place] [phone] Discharge Disposition: Home or Self Care Attending [...]
--- OUTSIDE RECORDS SUMMARY | 2017-11-22 11:02 | XMS REPORT | Summary of Care ---
:1965 Author Organization [facility] Spine [facility] Address [address] [place] [address] [address] [place] [address]- Encounter HQ Jarredntr_fransico(FIN) [phone] Date(s): 06/06/17 - 06/07/17 [facility] Spine [address] [place] [phone] Vital Signs No data available for this [...]
[2017-11-22 11:33] LABS: Urine Blood NEGATIVE (NEG); Urine Glucose 2+ (NEG); Urine Protein NEGATIVE (NEG); Urine Specific Gravity 1.015 (1.005-1.030); Urine pH 5.5 (5.0-7.0)
[2017-11-22 11:39] LABS: Absolute Lymphocytes (CBC) 1.6 K/uL (0.7-4.9); Absolute Monocytes 0.6 K/uL (0.1-1.3); Absolute Neutrophil 5.8 K/uL (1.8-8.0); Basophils % 0.6 % (0-1.3); Eosinophils % 2.7 % (0-4.4); Hematocrit 44.7 % (39.6-49.0); Lymphocytes % 19.1 % (15.3-44.8); MCH 27.3 pg (27.0-35.0); MCV 84.7 fL (80-100); MPV 8.1 fL (7.6-11.3); RBC Red Blood Cell Count 5.27 M/uL (4.33-5.43)
[2017-11-22 11:51] LABS: Albumin 3.3 g/dL (3.4-5.0); Bilirubin Direct 0.1 mg/dL (0-0.2); Bilirubin Total 0.6 mg/dL (0.2-1.0); Potassium 4.7 mmol/L (3.5-5.1); Protein, Total 7.4 g/dL (6.4-8.2)
[2017-11-22 12:11] LABS: Urine Bacteria <20 /HPF (NONE SEEN); Urine Culture Reflex Order NOT NEEDED; Urine RBC <5 /HPF (NONE SEEN)
--- NOTE | 2017-11-22 12:46 | RAD REPORT ---
EXAM DESCRIPTION: CT - Abdomen Pelvis W Contrast - 11/22/2017 12:17 pm CLINICAL HISTORY: Abdominal pain, right-sided flank pain, blood in stools COMPARISON: December 2016 CT imaging TECHNIQUE: Biphasic, helical CT imaging of the abdomen and pelvis was performed following 100 ml non -ionic IV contrast. No oral contrast was given. All CT scans are performed using dose optimization technique as appropriate and may include automated exposure control or mA/KV adjustment according to patient size. FINDINGS: No suspicious findings in the lung bases. The liver, spleen, and pancreas show no suspicious focal findings. Liver shows fatty infiltration pat tern. Gallstones are present within a contracted gallbladder. No biliary tree dilatation. Gallstones have been previously seen. Symmetric renal function is seen with no hydronephrosis or suspicious renal mass. No pyelonephritis o r acute renal parenchymal process. No urinary bladder abnormality. Prostate gland and seminal vesicle s within normal limits. No dilated bowel loops or bowel wall thickening. Appendix is not clearly defined. No findings of appe ndicitis. No free air, free fluid or inflammatory stranding. No hernia, mass or bulky lymphadenopath y. No adrenal abnormality. No acute bone finding identified. Prominent endplate spurring changes near L1-2 cause canal stenosis. No pathologic bone process. This is not a new finding. IMPRESSION: Contrast enhanced CT abdomen and pelvis showing no acute finding. Nonacute findings det rashmi in the body of the report.
--- NOTE | 2017-11-22 13:07 | ER ---
Nurse's Notes [facility] Name: Nicola Harvey Age: 52 yrs Sex: Male : 1965 Arrival Date: 11/22/2017 Time: 10:31 Bed 23 Private MD: Latoya Mcknight C Diagnosis: Unspecified abdominal pain Presentation: 11/22 11:00 Presenting complaint: Patient states: Right lower flank pain for 1 week, worse with aj movement.. Denies trauma. Patient reports black stools. Transition of care: patient was not received from another setting of care. Onset of symptoms was November 15, 2017. Risk Assessment: Do you want to hurt yourself or someone else? Patient reports no desire to harm self or others. Initial Sepsis Screen: Does the patient meet any 2 criteria? No. Patient's initial sepsis screen is negative. Does the patient have a suspected source of infection? No. Patient's initial sepsis screen is negative. Care prior to arrival: None. 11:00 Method Of Arrival: Ambulatory aj 11:00 Acuity: ANGE 3 aj Triage Assessment: 11:03 General: Appears in no apparent distress. comfortable, Behavior is calm, cooperative, aj appropriate for age. Pain: Complains of pain in anterior aspect of right lateral abdomen and posterior aspect of right lateral abdomen. Neuro: Level of Consciousness is awake, alert, obeys commands, Oriented to person, place, time, situation, Appropriate for age. Respiratory: Airway is patent Respiratory effort is even, unlabored, Respiratory pattern is regular, symmetrical. GI: Abdomen is non-distended, obese. GI: Reports dark stool. Derm: Skin is intact, is healthy with good turgor, Skin is pink, warm \\T\\ dry. normal. Historical: - Allergies: 11: No Known Allergies; aj - Home Meds: 11:03 amlodipine 5 mg tab 1 tab once daily [Active]; glimepiride 4 mg Oral tab 1 tab BID aj [Active]; Jardiance oral oral [Active]; lisinopril 40 mg Oral tab 1 tab once daily [Active]; metformin 1,000 mg Oral tab 1 tab 2 times per day [Active]; Metoprolol Tartrate Oral [Active]; Victoza 2-Quoc subcutaneous [Active]; - PMHx: 11:03 Diabetes - IDDM; Hypertension; lower back pain with injecitons; Hyperlipidemia; aj - PSHx: 11:03 back; aj - Immunization history:: Adult Immunizations up to date. - Social history:: Smoking status: Patient/guardian denies using tobacco, Patient uses alcohol, occasionally. - Ebola Screening: : Patient negative for fever greater than or equal to 101.5 degrees Fahrenheit, and additional compatible Ebola Virus Disease symptoms Patient denies exposure to infectious person Patient denies travel to an Ebola-affected area in the 21 days before illness onset No symptoms or risks identified at this time. Screenin:31 Abuse screen: Denies threats or abuse. Denies injuries from another. Nutritional aj screening: No deficits noted. Tuberculosis screening: No symptoms or risk factors identified. Fall Risk None identified. Assessment: 11:31 Reassessment: See triage. aj 13:18 Reassessment: Patient's reports tripping over stretcher wheel and falling onto aj right knee today. Unwitnessed by staff. Patient reports that he called on the call light, but stated that everything was okay when call light was answered. Patient family provided with icepack. Ambulated with no difficulty when leaving. Stated, "I'm always tripping over things." Family member smiling in NAD. Vital Signs: 11:03 BP 131 / 61; Pulse 87; Resp 20; Temp 98.4; Pulse Ox 96% on R/A; Weight 151.95 kg; aj Height 5 ft. 10 in. (177.80 cm); 13:06 BP 129 / 80; Pulse 65; Resp 19; Pulse Ox 96% on R/A; aj 11:03 Body Mass Index 48.07 (151.95 kg, 177.80 cm) aj ED Course: 10:31 Patient arrived in ED. sb2 10:32 Latoya Mcknight MD is Private Physician. sb2 10:58 Surinder Monroe PA is PHCP. jmm 10:58 Asael Bernal MD is Attending Physician. jmm 11:00 Sudha Jaramillo, KRUNAL is Primary Nurse. aj 11:01 Triage completed. aj 11:03 Arm band placed on left wrist. Patient placed in an exam room, on a stretcher. aj 11:18 Radiology exam delayed due to lab results not completed at this time. (BUN/Creatinine). sj 11:31 Patient has correct armband on for positive identification. aj 11:31 No provider procedures requiring assistance completed. Initial lab(s) drawn, by me, aj sent to lab. Urine collected: clean catch specimen, clear. Inserted saline lock: 18 gauge in right antecubital area, using aseptic technique. Blood collected. 12:17 CT Abd/Pelvis - W/Contrast In Process Unspecified. EDMS 12:18 CT completed. Patient moved to CT via wheelchair. Patient moved back from CT. sj 13:17 IV discontinued, intact, bleeding controlled, No redness/swelling at site. Pressure aj dressing applied. Administered Medications: No medications were administered Outcome: 13:07 Discharge ordered by MD. patricia 13:17 Discharged to home ambulatory, with family. aj 13:17 Condition: good 13:17 Discharge instructions given to patient, family, Instructed on discharge instructions, follow up and referral plans. medication usage, Demonstrated understanding of instructions, follow-up care, medications, Prescriptions given X 2. 13:21 Patient left the ED. ming Signatures: Dispatcher [employer] EDMS Sudha Jaramillo, RN RN Surinder Batista PA PA jmm Jones, Susan sj Billeau, Sheri sb2
--- NOTE | 2017-11-22 13:08 | EDPHYS ---
Physician Documentation [facility] Name: Nicola Harvey Age: 52 yrs Sex: Male : 1965 Arrival Date: 11/22/2017 Time: 10:31 Bed 23 Private MD: Latoya Mcknight C ED Physician Asael Bernal HPI: 11/22 11:12 This 52 yrs old Male presents to ER via Ambulatory with complaints of jmm Abdominal Pain. 11:12 The patient presents with abdominal pain right lower quadrant. Onset: The jmm symptoms/episode began/occurred gradually, 1.5 week(s) ago. The symptoms radiate to right lower quadrant. This is a 52 year old male with a history of DM that presents to the ED with dark stools and right lower abdominal pain for 1.5 weeks. Patient denies vomiting or diarrhea. . Historical: - Allergies: 11:03 No Known Allergies; aj - Home Meds: 11:03 amlodipine 5 mg tab 1 tab once daily [Active]; glimepiride 4 mg Oral tab 1 tab BID aj [Active]; Jardiance oral oral [Active]; lisinopril 40 mg Oral tab 1 tab once daily [Active]; metformin 1,000 mg Oral tab 1 tab 2 times per day [Active]; Metoprolol Tartrate Oral [Active]; Victoza 2-Quoc subcutaneous [Active]; - PMHx: 11:03 Diabetes - IDDM; Hypertension; lower back pain with injecitons; Hyperlipidemia; aj - PSHx: 11:03 back; aj - Immunization history:: Adult Immunizations up to date. - Social history:: Smoking status: Patient/guardian denies using tobacco, Patient uses alcohol, occasionally. - Ebola Screening: : Patient negative for fever greater than or equal to 101.5 degrees Fahrenheit, and additional compatible Ebola Virus Disease symptoms Patient denies exposure to infectious person Patient denies travel to an Ebola-affected area in the 21 days before illness onset No symptoms or risks identified at this time. ROS: 11:12 Constitutional: Negative for fever, chills, and weight loss, Cardiovascular: Negative jm for chest pain, palpitations, and edema, Respiratory: Negative for shortness of breath, cough, wheezing, and pleuritic chest pain. 11:12 Abdomen/GI: Positive for abdominal pain. 11:12 Back: Positive for pain with movement. 11:12 MS/extremity: Negative for pain. 11:12 Neuro: Negative for weakness. 11:12 All other systems are negative. Exam: 11:12 Head/Face: atraumatic. Chest/axilla: Normal chest wall appearance and motion. jmm Nontender with no deformity. No lesions are appreciated. Cardiovascular: Regular rate and rhythm. No gallops, murmurs, or rubs. Full/Equal distal pulses. Respiratory: Lungs have equal breath sounds bilaterally, clear to auscultation. 11:12 Constitutional: The patient appears in no acute distress, alert, awake. 11:12 Abdomen/GI: Inspection: obese Bowel sounds: normal, Palpation: soft, mild abdominal tenderness, in the right lower quadrant, Rectal exam: Stool: guaiac positive. 11:12 Back: CVA tenderness, is absent. 11:12 Musculoskeletal/extremity: ROM: intact in all extremities. 11:12 Skin: Appearance: Color: normal in color. 11:12 Neuro: Orientation: is normal, Mentation: is normal, Memory: is normal. 11:12 Psych: Behavior/mood is pleasant, cooperative. Vital Signs: 11:03 BP 131 / 61; Pulse 87; Resp 20; Temp 98.4; Pulse Ox 96% on R/A; Weight 151.95 kg; aj Height 5 ft. 10 in. (177.80 cm); 13:06 BP 129 / 80; Pulse 65; Resp 19; Pulse Ox 96% on R/A; aj 11:03 Body Mass Index 48.07 (151.95 kg, 177.80 cm) MDM: 11:11 Patient medically screened. [facility] 13:02 Data reviewed: vital signs, nurses notes. Counseling: I had a detailed discussion with patricia the patient and/or guardian regarding: the historical points, exam findings, and any diagnostic results supporting the discharge/admit diagnosis, lab results, radiology results, the need for outpatient follow up, to return to the emergency department if symptoms worsen or persist or if there are any questions or concerns that arise at home. 13:03 ED course: CT imaging reveal no concerning signs of appendicitis, labs are unremarkable [facility] except for occult stool Patient will be put on PPI and advised he will need to follow up with Dr. Plunkett on Friday for reevaluation. Patient otherwise given return precautions for worsening pain, fever, ect. Patient understood and agrees with the plan of care. . 11/22 11:11 Order name: Occult Blood--Ancillary em1 11/22 11:11 Order name: Amylase, Serum; Complete Time: 11:56 [facility] 11/22 11:11 Order name: Basic Metabolic Panel; Complete Time: 11:56 [facility] 11/22 11:11 Order name: CBC with Diff; Complete Time: 11:42 [facility] 11/22 11:11 Order name: Creatinine for Radiology; Complete Time: 11:56 [facility] 11/22 11:11 Order name: Hepatic Function; Complete Time: 11:56 [facility] 11/22 11:11 Order name: Lipase; Complete Time: 11:56 [facility] 11/22 11:11 Order name: Urine Microscopic Only; Complete Time: 12:37 [facility] 11/22 11:11 Order name: IV Saline Lock; Complete Time: 11:40 [facility] 11/22 11:11 Order name: Labs collected and sent; Complete Time: 11:40 [facility] 11/22 11:11 Order name: Urine Dipstick-Ancillary (obtain specimen); Complete Time: 11:20 [facility] 11/22 11:11 Order name: CT Abd/Pelvis - W/Contrast; Complete Time: 12:53 [facility] 11/22 11:25 Order name: Urine Dipstick--Ancillary (enter results); Complete Time: 11:42 em1 Administered Medications: No medications were administered Disposition: 14:34 Co-signature as Attending Physician, Asael Bernal MD. rn Disposition: 11/22/17 13:07 Discharged to Home. Impression: Unspecified abdominal pain. - Condition is Stable. - Discharge Instructions: Abdominal Pain, Adult. - Prescriptions for Protonix 40 mg Oral Tablet - take 1 tablet by ORAL route once daily; 30 tablet. Bentyl 20 mg Oral Tablet - take 1 tablet by ORAL route every 6 hours As needed; 20 tablet. - Medication Reconciliation Form, Thank You Letter, Antibiotic Education, Prescription Opioid Use form. - Follow up: Private Physician; When: 2 - 3 days; Reason: Continuance of care. Signatures: Dispatcher [employer] Sudha Roberts RN RN Surinder Batista PA PA jmm Nieto, Roman, MD MD corner cutter: (The following items were deleted from the chart) 13:21 13:07 11/22/2017 13:07 Discharged to Home. Impression: Unspecified abdominal pain. aj Condition is Stable. Forms are Medication Reconciliation Form, Thank You Letter, Antibiotic Education, Prescription Opioid Use. Follow up: Private Physician; When: 2 - 3 days; Reason: Continuance of care. patricia
[2017-11-22 13:25] VITALS: TEMP 98.4; O2SAT 96
[2017-11-22 13:26] VITALS: BP 129/80
== END 2017-11-22 13:21 | disposition home or self-care (01) ==
LOC: ER 10:29
DX: R10.31 Right lower quadrant pain (principal); I10 Essential (primary) hypertension; E11.9 Type 2 diabetes mellitus without complications; E78.5 Hyperlipidemia, unspecified
CPT/HCPCS: 36415; 74177; 80048; 80076; 81003; 81015; 82150; 82272; 83690; 85025; 99284; Q9967

== ENCOUNTER 2018-02-04 10:16 | Emergency (ER) | payer BC, SELFPAY ==
--- OUTSIDE RECORDS SUMMARY | 2018-02-04 10:19 | XMS REPORT | Summary of Care ---
:1965 Author Organization [facility] Spine [facility] Address [address] [place] [address]- Encounter HQ Danielle_fransico(FIN) [id number] Date(s): 12/04/17 - 12/04/17 [facility] [address] [phone] Attending Physician: Deangelo Lau MD Referring Physician: [...]
--- OUTSIDE RECORDS SUMMARY | 2018-02-04 10:19 | XMS REPORT | Continuity of Care Document ---
:1965 Author Organization Interface Problems Problem Status Onset Classification Date Comments Source Date Reported LUMBAR STENOSIS Active [address] M54.[address] Abdominal pain Resolved Problem 12/07/2017 [facility] in male [facility] Chest pain Resolved Problem 12/07/2017 [facility] Back pain, Resolved Problem 12/07/2017 [facility] chronic [facility] Diabetes Active Problem 12/07/2017 [facility] High Active Problem 12/07/2017 [facility] cholesterol [facility] High blood Active Problem 12/07/2017 [facility] pressure [facility] Morbid obesity Active Problem 12/07/2017 [facility] Lumbar Active Problem 12/07/2017 [facility] herniated disc [facility] Medications Medication Details Route Status Patient Ordering Order Source Instructions Provider Date amitriptyline 10 10 mg=1 Active [facility] mg oral tablet tab, PO, 017 Neuro Bedtime, 4 tabs at bedtime for 1 week then 5 tabs at bedtime thereafter , # 150 tab, 2 Refill(s), Pharmacy: [facility] diclofenac sodium 75 mg=1 Active [facility] 75 mg oral enteric tab, PO, 017 Neuro coated, BID, PRN delayed-release Pain Score tablet 7-10, # 60 tab, 2 Refill(s), Pharmacy: [facility] Cyclobenzaprine 10 mg=1 Active [facility] hydrochloride 10 tab, PO, 017 Neuro MG Oral Tablet BID, # 60 [Flexeril] tab, 2 Refill(s), Pharmacy: [facility] Sodium Chloride 4.2 mL, Inactive [facility] Route: 017 Neuro EPIDURAL, Dosing Weight 141.364, kg, ONCE, (Preservat liliana Free), Start date: 04/25/17 8:50:00 OIL LABORATORY ANALYST, Stop date: 04/25/17 8:50:00 OIL LABORATORY ANALYST Lidocaine 3 mL, Inactive [facility] Hydrochloride 10 Route: 017 Neuro MG/ML Injectable SUB-Q, Solution Dosing Weight 141.364, kg, ONCE, (Preservat liliana Free), Start date: 04/25/17 8:50:00 OIL LABORATORY ANALYST, Stop date: 04/25/17 8:50:00 OIL LABORATORY ANALYST Omnipaque 300 2 mL, Inactive [facility] Route: 017 Neuro EPIDURAL, Dosing Weight 141.364, kg, ONCE, (Preservat liliana Free), Start date: 04/25/17 8:50:00 OIL LABORATORY ANALYST, Stop date: 04/25/17 8:50:00 OIL LABORATORY ANALYST Dexamethasone 8 mg, Inactive [facility] Route: 017 Neuro EPIDURAL, ONCE, Dosing Weight 141.364, kg, (Preservat liliana Free), Start date: 04/25/17 8:50:00 OIL LABORATORY ANALYST, Stop date: 04/25/17 8:50:00 OIL LABORATORY ANALYST Bupivacaine 2 mL, Inactive [facility] Hydrochloride 2.5 Route: 017 Neuro MG/ML Injectable EPIDURAL, Solution Dosing Weight 141.364, kg, ONCE, (Preservat liliana Free), Start date: 04/25/17 8:50:00 OIL LABORATORY ANALYST, Stop date: 04/25/17 8:50:00 OIL LABORATORY ANALYST Allergies, Adverse Reactions, Alerts Substance Category Reaction Severity Reaction Status Date Comments Source type Reported NKDA Assertion Drug Active [facility] allergy Neuro Immunizations Immunization Date Given Site Status Last Updated Comments Source Results Order Name Results Value Reference Date Interpretation Comments Source Range HEMATOLOGY PTT 29.4 s 22.9 - 04/29 [facility] 35.8 /2017 [facility] HEMATOLOGY PT 12.8 s 12.0 - 04/29 [facility] 14.7 [facility] HEMATOLOGY INR 0.96 0.85 - 04/29 [facility] 1. [facility] CHEM PANEL eGFR 95 04/29 Result Comment: The eGFR is calculated using the CKD-EPI formula. In most young, healthy individuals the eGFR will be >90 mL/ min/1.73m2. The eGFR declines with age. An eGFR of 60-89 may be normal in [facility] mL/min/1.73 /2017 some populations, particularly the elderly, for whom the CKD-EPI formula has not been extensively validated. Use of the eGFR is not recommended in the following populations: [address] Individuals with unstable creatinine concentrations, including patients [...] PANEL Creatinine 0.92 mg/dL 0.50 - 04/29 [facility] Lvl 1.40 /2016 [facility] CHEM PANEL BUN 21 mg/dL 7 - 22 04/29 [facility] HEMATOLOGY MCV 84.7 fL 80.0 - 04/29 [facility] 94.0 [facility] HEMATOLOGY Hct 41.3 % 42.0 - 04/29 [facility] 54.0 [facility] HEMATOLOGY MCH 27.9 pg 27.0 - 04/29 [facility] 31.0 [facility] HEMATOLOGY MCHC 32.9 g/dL 32.0 - 04/29 [facility] 36.0 [facility] HEMATOLOGY WBC 7.2 K/CMM 3.7 - 10.4 04/29 [facility] HEMATOLOGY RBC 4.87 M/CMM 4.70 - 04/29 [facility] 6.10 /2016 [facility] HEMATOLOGY Hgb 13.6 g/dL 14.0 - 04/29 [facility] 18.0 [facility] HEMATOLOGY RDW 16.1 % 11.5 - 04/29 [facility] 14.5 [facility] HEMATOLOGY Platelet 239 K/CMM 133 - 450 04/29 [facility] HEMATOLOGY MPV 8.0 fL 7.4 - 10.4 04/29 [facility] Spine Spine EXAM: CT MYELOGRAM LUMBAR SPINE 04/29 - [facility] lumbar lumbar - Medical myelogram myelogram EXAM: CT MYELOGRAM THORACIC SPINE This report was dictated by a Manager Retail Store/Fellow. I have personally reviewed the images as [...] EXAM: CT MYELOGRAM LUMBAR SPINE 04/29 - [facility] thoracic thoracic /2017 - Medical myelogram myelogram EXAM: CT MYELOGRAM THORACIC SPINE This report was dictated by a Manager Retail Store/Fellow. I have personally reviewed the images as [...] EXAM: CT MYELOGRAM LUMBAR SPINE 04/29 - [facility] thoracic thoracic /2017 - Medical myelogram myelogram EXAM: CT MYELOGRAM THORACIC SPINE This report was dictated by a Manager Retail Store/Fellow. I have personally reviewed the images as [...] EXAM: CT MYELOGRAM LUMBAR SPINE 04/29 - [facility] /2017 - Medical myelogram myelogram EXAM: CT MYELOGRAM THORACIC SPINE This report was dictated by a Manager Retail Store/Fellow. I have personally reviewed the images as [...] XR ENTIRE SPINE 2 VIEWS 03/19 - [facility] (or entire) (or entire) /2016 - Medical [...] Date Comments Source Height 177.8 cm 06/05/2017 [facility] Neuro Weight 146.818 06/05/2017 [facility] BMI Calculated 46.44 06/05/2017 [facility] Systolic (mm Hg) 130 06/05/2017 [facility] Diastolic (mm Hg) 83 06/05/2017 [facility] Temperature Oral (F) 99.3 F 06/05/2017 [facility] Heart Rate 70 06/05/2017 [facility] BMI Calculated 44.72 04/29/2017 [facility] Weight 141.36 04/29/2017 [facility] Height 177.8 cm 04/29/2017 [facility] Heart Rate 66 04/29/2017 [facility] Respitory Rate 20 04/29/2017 [facility] Systolic (mm Hg) 140 04/29/2017 [facility] Diastolic (mm Hg) 73 04/29/2017 [facility] Encounters Location Location Encounter Encounter Reason Attending ADM DC Status Source Details Type Number For Provider Date Date Visit Outpatient [id number] VIOLA 08/19 [facility] Outpatient [id number] MANJINDER KOWALSKI 09/04 [facility] Outpatient [id number] MANJINDER KOWALSKI 03/19 [facility] Outpatient [id number] CONY 03/19 [facility] Outpatient [id number] Manjinder Kowalski 03/19 03/20 [facility] /2016 [facility] Outpatient [id number] DULCE LAU 04/04 Active [facility] Mites[facility]NA Spine Phone [id number] 04/24 04/26 [facility] Message /2016 [facility] Phone [id number] 04/24 04/26 [facility] Message /2016 [facility] Outpatient [id number] CONY 04/25 [facility]h [facility] Spine Outpatient [id number] Harjeet 04/25 04/26 [facility] /2016 [facility] [id number] Dulce Lau 04/29 04/30 [facility] /2016 [facility] Spine Phone [id number] 04/30 05/02 [facility] Message /2016 [facility] Outpatient [id number] DULCE LAU 06/05 Active [facility] Sp[facility] Outpatient [id number] Harjeet 06/05 06/06 [facility] /2017 [facility] Phone [id number] 06/06 06/08 [facility] Message /2017 [facility] Outpatient [id number] DULCE LAU 12/04 [facility] Amb[facility] [id number] Harjeet 12/04 12/04 [facility] Pre-Reg Neuro [facility] Procedures Procedure Code Date Perfomer Comments Source Myelography via [id number] 04/29/2017 [facility] lumbar injection, [facility] including Center radiological supervision and interpretation; thoracic Myelography via [id number] 04/29/2017 [facility] [place] [facility] and interpretation; lumbosacral NJX INTERLAMINAR 04/25/2017 [facility] Neuro LMBR/SA Ear operations [id number] [facility] Lumbar epidural [id number] [facility] Lumbar epidural [id number] [facility] steroid [facility] Nose operation [id number] [facility] Operation [id number] [facility] Ear operations [id number] [facility] Lumbar epidural [id number] [facility] injection Lumbar epidural [id number] [facility] steroid injection Nose operation [id number] [facility] Operation [id number] [facility]
--- OUTSIDE RECORDS SUMMARY | 2018-02-04 10:20 | XMS REPORT ---
:1965 Author Organization [facility] Address [address] [place] [address] [address]. [address] [place] [address] Care Team Providers Name Role Phone LOPEZHAIMMADI Unavailable Unavailable TAMMY BETANCOURT Unavailable Unavailable Problems This patient has no known problems. Allergies, Adverse Reactions, Alerts This patient has no known allergies or adverse reactions. Medications This patient has no known medications. Results Test Description Test Time Test Comments Text Results Atomic Results Result Comments [facility] 2017-01-28 05:57:00 Test Item Value Reference Range [...] EGFR if Non- >60 mL/min/1.73m\\S\\2 Estimated Glomerular Armenian (test Filtration Rate (eGFR) code=EGFRNA) Reference Intervals [...] of chronic kidney failure. CBC WITH AUTO [id number] 05:42:00 Test Item Value Reference Range Comments [...] 1.0-3.0 IG% (test code=IG%) 1.0 % 0.0-0.4 [id number] 05:53:00 Test Item Value Reference Range Comments [...] mL/min/1.73m\\S\\2 EGFR if Non- >60 Estimated Glomerular Armenian (test mL/min/1.73m\\S\\2 Filtration Rate (eGFR) code=EGFRNA) Reference [...] of chronic kidney failure. CBC WITH AUTO [id number] 05:27:00 Test Item Value Reference Range Comments [...] 1.0-3.0 IG% (test code=IG%) 1.7 % 0.0-0.4 [id number] 04:36:00 Test Item Value Reference Range Comments [...] mL/min/1.73m\\S\\2 EGFR if Non- >60 Estimated Glomerular Armenian (test mL/min/1.73m\\S\\2 Filtration Rate (eGFR) code=EGFRNA) Reference [...] of chronic kidney failure. CBC WITH AUTO [id number] 04:14:00 Test Item Value Reference Range Comments [...] 1.0-3.0 IG% (test code=IG%) 1.9 % 0.0-0.4 [id number] 04:40:00 Test Item Value Reference Range Comments [...] mL/min/1.73m\\S\\2 EGFR if Non- >60 Estimated Glomerular Armenian (test mL/min/1.73m\\S\\2 Filtration Rate (eGFR) code=EGFRNA) Reference [...] of chronic kidney failure. CBC WITH AUTO [id number] 04:09:00 Test Item Value Reference Range Comments [...] IG% (test code=IG%) 2.4 % 0.0-0.4 CULTURE, [id number] 06:50:00To start 15mins after 1st cultureSpecimen: BloodCollected: 01/18/2017 04:05 Status: Final Last Updated: 01/23/2017 06: 49 (1) To start 15mins after 1st culture Culture Result (Final) (Final ) No Growth After 5 DaysCULTURE, [id number] 06:50:00Specimen: BloodCollected: 01/18/2017 03:55 Status: Final Last Updated: 01/23/2017 06: 49 Culture Result (Final) (Final) No Growth After 5 DaysCBC WITH AUTO [id number] 04:31:00 Test Item Value Reference Range Comments [...] 1.0-3.0 IG% (test code=IG%) 3.4 % 0.0-0.4 [id number] 04:19:00 Test Item Value Reference Range Comments [...] mL/min/1.73m\\S\\2 EGFR if Non- >60 Estimated Glomerular Armenian (test mL/min/1.73m\\S\\2 Filtration Rate (eGFR) code=EGFRNA) Reference [...] of chronic kidney failure. CBC WITH AUTO [id number] 04:57:00 Test Item Value Reference Range Comments [...] (test code=IG%) 4.0 % 0.0-0.4 CBC AUTO [id number] 04:35:00 Test Item Value Reference Range Comments [...] mL/min/1.73m\\S\\2 EGFR if Non- >60 Estimated Glomerular Armenian (test mL/min/1.73m\\S\\2 Filtration Rate (eGFR) code=EGFRNA) Reference [...] of chronic kidney failure. CBC WITH AUTO [id number] 05:01:00 Test Item Value Reference Range Comments [...] (test code=IG%) 4.5 % 0.0-0.4 CBC AUTO [id number] 04:56:00 Test Item Value Reference Range Comments [...] mL/min/1.73m\\S\\2 EGFR if Non- >60 Estimated Glomerular Armenian (test mL/min/1.73m\\S\\2 Filtration Rate (eGFR) code=EGFRNA) Reference [...] of chronic kidney failure. CBC WITH AUTO [id number] 05:57:00 Test Item Value Reference Range Comments [...] 1.0-3.0 IG% (test code=IG%) 4.8 % 0.0-0.4 [id number] 05:41:00 Test Item Value Reference Range Comments Magnesium (test code=MG) 2.0 mg/dl 1.6-2.3 [id number] 05:41:00 Test Item Value Reference Range Comments [...] mL/min/1.73m\\S\\2 EGFR if Non- >60 Estimated Glomerular Armenian (test mL/min/1.73m\\S\\2 Filtration Rate (eGFR) code=EGFRNA) Reference [...] management of chronic kidney failure. LACTIC ACID [id number] 06:43:00 Test Item Value Reference Range Comments LACTATE (test code=LAC) 0.9 mmol/l 0.7-2.0 GLYCOSALATED [id number] 05:41:00 Test Item Value Reference Range Comments Hemoglobin A1C (test 9.06 % 4.3-6.0 code=GLYCO) Mean Plasma Glucose (test 245 mg/dl 90-180 WHEN TEST RESULTS FOR A1C code=MPG) EXCEED 14.0, THE LINEAR LIMIT OF THE INSTRUMENT, THE CALCULATED RESULT FOR THE MEAN GLUCOSE IS NOT RELIABLE. CORONARY [id number] 05:09:00 Test Item Value Reference Range Comments [...] Average vLDL (test code=VLDL) 37 mg/dl 30-60 [id number] 04:51:00 Test Item Value Reference Range Comments Magnesium (test code=MG) 2.1 mg/dl 1.6-2.3 [id number] 04:51:00 Test Item Value Reference Range Comments CPK (test code=CPK) 93 U/L 30-135 LIPASE, [id number] 04:43:00 Test Item Value Reference Range Comments Lipase (test code=LIPA) 116 U/L 8-223 [id number] 04:43:00 Test Item Value Reference Range Comments [...] mL/min/1.73m\\S\\2 EGFR if Non- >60 Estimated Glomerular Armenian (test mL/min/1.73m\\S\\2 Filtration Rate (eGFR) code=EGFRNA) Reference [...]
--- NOTE | 2018-02-04 11:40 | RAD REPORT ---
EXAM DESCRIPTION: RAD - Chest Pa And Lat (2 Views) - 02/04/2018 11:32 am CLINICAL HISTORY: Cough and congestion COMPARISON: August 2017 TECHNIQUE: PA and lateral views of the chest were obtained. FINDINGS: The lungs are clear of a peripheral mass, consolidation or failure finding. Lung markings are mildly prominent but not clearly different. This is believed to be baseline for the patient. He art size is normal and central vasculature is within normal limits. No pleural effusion or pneumotho rax seen. No acute bony finding noted. No aortic abnormality. IMPRESSION: No acute cardiopulmonary process.
--- NOTE | 2018-02-04 12:17 | EDPHYS ---
Physician Documentation [facility] Name: Nicola Harvey Age: 53 yrs Sex: Male : 1965 Arrival Date: 02/04/2018 Time: 10:22 Bed 24 Private MD: Latoya Mcknight C ED Physician Claudia Queen HPI: 02/04 12:20 This 53 yrs old Male presents to ER via Ambulatory with complaints of kb Congestion, Eye Swelling. 12:20 The patient or guardian reports cough, that is intermittent, described as mild, with no kb sputum. The patient has not experienced similar symptoms in the past. The patient has not recently seen a physician. Pt reports cough and congestion for a few days and woke up this morning with matting to right eye with redness. Denies fever. 12:20 Onset: The symptoms/episode began/occurred 2 day(s) ago. Severity of symptoms: At their kb worst the symptoms were mild, in the emergency department the symptoms are unchanged. Modifying factors: The symptoms are alleviated by nothing, the symptoms are aggravated by nothing. Associated signs and symptoms: Pertinent positives: rhinorrhea, sore throat, Pertinent negatives: chest pain, diarrhea, ear ache, fever, nausea, vomiting. Historical: - Allergies: 10:38 No Known Allergies; sv - Home Meds: 10:38 amlodipine 5 mg tab 1 tab once daily [Active]; glimepiride 4 mg Oral tab 1 tab BID sv [Active]; Jardiance Oral [Active]; lisinopril 40 mg Oral tab 1 tab once daily [Active]; metformin 1,000 mg Oral tab 1 tab 2 times per day [Active]; Metoprolol Tartrate Oral [Active]; Victoza 2-Quoc subcutaneous [Active]; - PMHx: 10:38 Diabetes - IDDM; Hyperlipidemia; Hypertension; lower back pain with injecitons; sv - PSHx: 10:38 back; sv - Immunization history:: Adult Immunizations up to date. - Social history:: Smoking status: Patient/guardian denies using tobacco. - Ebola Screening: : No symptoms or risks identified at this time. ROS: 12:20 Constitutional: Negative for fever, chills, and weight loss, Cardiovascular: Negative kb for chest pain, palpitations, and edema, Abdomen/GI: Negative for abdominal pain, nausea, vomiting, diarrhea, and constipation, Back: Negative for injury and pain, : Negative for injury, bleeding, discharge, and swelling, MS/Extremity: Negative for injury and deformity, Skin: Negative for injury, rash, and discoloration, Neuro: Negative for headache, weakness, numbness, tingling, and seizure. 12:20 Eyes: Positive for matting, redness. 12:20 ENT: Positive for rhinorrhea, sinus congestion, sore throat. 12:20 Respiratory: Positive for cough, Negative for dyspnea on exertion, hemoptysis, orthopnea, pleurisy, shortness of breath, sputum production, wheezing. Exam: 12:22 Constitutional: This is a well developed, well nourished patient who is awake, alert, kb and in no acute distress. Head/Face: Normocephalic, atraumatic. ENT: Nares patent. No nasal discharge, no septal abnormalities noted. Tympanic membranes are normal and external auditory canals are clear. Oropharynx with no redness, swelling, or masses, exudates, or evidence of obstruction, uvula midline. Mucous membranes moist. Neck: Trachea midline, no thyromegaly or masses palpated, and no cervical lymphadenopathy. Supple, full range of motion without nuchal rigidity, or vertebral point tenderness. No Meningismus. Chest/axilla: Normal chest wall appearance and motion. Nontender with no deformity. No lesions are appreciated. Cardiovascular: Regular rate and rhythm with a normal S1 and S2. No gallops, murmurs, or rubs. Normal PMI, no JVD. No pulse deficits. Respiratory: Lungs have equal breath sounds bilaterally, clear to auscultation and percussion. No rales, rhonchi or wheezes noted. No increased work of breathing, no retractions or nasal flaring. Abdomen/GI: Soft, non-tender, with normal bowel sounds. No distension or tympany. No guarding or rebound. No evidence of tenderness throughout. Skin: Warm, dry with normal turgor. Normal color with no rashes, no lesions, and no evidence of cellulitis. MS/ Extremity: Pulses equal, no cyanosis. Neurovascular intact. Full, normal range of motion. Neuro: Awake and alert, GCS 15, oriented to person, place, time, and situation. Cranial nerves II-XII grossly intact. Motor strength 5/5 in all extremities. Sensory grossly intact. Cerebellar exam normal. Normal gait. 12:22 Eyes: Conjunctiva: injected, in the right eye. Vital Signs: 10:39 BP 141 / 81; Pulse 65; Resp 18; Temp 98.7(O); Pulse Ox 96% ; Weight 108.86 kg; Height 5 sv ft. 10 in. (177.80 cm); Pain 2/10; 10:39 Body Mass Index 34.44 (108.86 kg, 177.80 cm) sv Visual Acuity: 11:08 Left Eye Visual acuity 20/20, Pupil size 5 mm, Normal, React To Light, Reactive To ss Accomodation; Right Eye Visual acuity 20/20, Pupil size 5 mm, Normal, React To Light, Reactive To Accomodation; Both Eyes Visual acuity 20/20; With Lenses; MDM: 10:59 Patient medically screened. kb 12:22 Data reviewed: vital signs, nurses notes. Data interpreted: Pulse oximetry: on room air kb is 96 %. Interpretation: normal. Counseling: I had a detailed discussion with the patient and/or guardian regarding: the historical points, exam findings, and any diagnostic results supporting the discharge/admit diagnosis, lab results, radiology results, the need for outpatient follow up, a family practitioner, to return to the emergency department if symptoms worsen or persist or if there are any questions or concerns that arise at home. 02/04 10:42 Order name: Flu; Complete Time: 11:07 sv 02/04 10:42 Order name: Strep; Complete Time: 11:07 sv 02/04 11:02 Order name: Chest Pa And Lat (2 Views) XRAY; Complete Time: 11:43 kb 02/04 11:02 Order name: Visual Acuity; Complete Time: 11:08 kb 02/04 11:07 Order name: Throat Culture EDMS Administered Medications: No medications were administered Disposition: 18:50 Co-signature as Attending Physician, Claudia Queen MD. ma2 Disposition: 02/04/18 12:17 Discharged to Home. Impression: Conjunctivitis, Acute upper respiratory infection, unspecified. - Condition is Stable. - Discharge Instructions: Upper Respiratory Infection, Adult, [id number], Bacterial Conjunctivitis, [id number]. - Prescriptions for Vigamox 0.5 % Ophthalmic Drops - instill 1 drop by OPHTHALMIC route every 8 hours for 7 days; 5 milliliter. - Medication Reconciliation Form, Thank You Letter, Antibiotic Education, Prescription Opioid Use, Work release form form. - Follow up: Emergency Department; When: As needed; Reason: Worsening of condition. Follow up: Private Physician; When: 2 - 3 days; Reason: Recheck today's complaints, Continuance of care, Re-evaluation by your physician. Signatures: Dispatcher [employer] EDGA Osiris Quiroz, ZENOBIA-C AIRPORT BAGGAGE SCREENER-Norma Shelley, KRUNAL RN No Goss RN RN ss Claudia Queen MD MD ma2 Corrections: (The following items were deleted from the chart) 12:24 12:17 02/04/2018 12:17 Discharged to Home. Impression: Conjunctivitis; Acute upper ss respiratory infection, unspecified. Condition is Stable. Forms are Medication Reconciliation Form, Thank You Letter, Antibiotic Education, Prescription Opioid Use. Follow up: Emergency Department; When: As needed; Reason: Worsening of condition. Follow up: Private Physician; When: 2 - 3 days; Reason: Recheck today's complaints, Continuance of care, Re-evaluation by your physician. kb
--- NOTE | 2018-02-04 12:17 | ER ---
Nurse's Notes [facility] Name: Nicola Harvey Age: 53 yrs Sex: Male : 1965 Arrival Date: 02/04/2018 Time: 10:22 Bed 24 Private MD: Latoya Mcknight C Diagnosis: Conjunctivitis;Acute upper respiratory infection, unspecified Presentation: 02/04 10:37 Presenting complaint: Patient states: right eye matted this morning and c/o congestion, sv cough, denies fever. Transition of care: patient was not received from another setting of care. Onset of symptoms was February 04, 2018. Care prior to arrival: None. 10:37 Method Of Arrival: Ambulatory sv 10:37 Acuity: ANGE 4 sv 12:24 Risk Assessment: Do you want to hurt yourself or someone else? Patient reports no ss desire to harm self or others. Initial Sepsis Screen: Does the patient meet any 2 criteria? No. Patient's initial sepsis screen is negative. Does the patient have a suspected source of infection? No. Patient's initial sepsis screen is negative. Historical: - Allergies: 10:38 No Known Allergies; sv - Home Meds: 10:38 amlodipine 5 mg tab 1 tab once daily [Active]; glimepiride 4 mg Oral tab 1 tab BID sv [Active]; Jardiance Oral [Active]; lisinopril 40 mg Oral tab 1 tab once daily [Active]; metformin 1,000 mg Oral tab 1 tab 2 times per day [Active]; Metoprolol Tartrate Oral [Active]; Victoza 2-Quoc subcutaneous [Active]; - PMHx: 10:38 Diabetes - IDDM; Hyperlipidemia; Hypertension; lower back pain with injecitons; sv - PSHx: 10:38 back; sv - Immunization history:: Adult Immunizations up to date. - Social history:: Smoking status: Patient/guardian denies using tobacco. - Ebola Screening: : No symptoms or risks identified at this time. Screenin:58 Abuse screen: Denies threats or abuse. Denies injuries from another. Nutritional ss screening: No deficits noted. Tuberculosis screening: Never had TB. Fall Risk None identified. Assessment: 10:58 General: Appears in no apparent distress. comfortable, Behavior is calm, cooperative, ss Reports feeling ill for x 5 days. Denies fever. Pain: Complains of pain in right eye Pain currently is 2 out of 10 on a pain scale. Quality of pain is described as "it feels like there is sandpaper in my eye. it started this morning. When I work up it was all crusty and closed together.". Neuro: Level of Consciousness is awake, alert, obeys commands, Oriented to person, place, time, situation, Speech is normal. Cardiovascular: Heart tones S1 S2 present Capillary refill < 3 seconds is brisk in bilateral fingers Patient's skin is warm and dry. Respiratory: Airway is patent Respiratory effort is even, unlabored, Respiratory pattern is regular, symmetrical, Breath sounds are clear bilaterally. GI: Patient currently denies abdominal pain, diarrhea, nausea, vomiting. EENT: Sclera/Cornea are reddened in outer aspect of conjuctiva of right eye, iris of right eye and inner aspect of conjuctiva of right eye Oral mucosa is moist. Throat is clear. EENT: Reports drainage to R eye that began this morning. Derm: Skin is intact, is healthy with good turgor, Skin is dry. Musculoskeletal: Circulation, motion, and sensation intact. Range of motion: intact in all extremities, Swelling absent. 11:32 Reassessment: Patient appears in no apparent distress at this time. Patient and/or ss family updated on plan of care and expected duration. Pain level reassessed. Patient is alert, oriented x 3, equal unlabored respirations, skin warm/dry/pink. 12:02 Reassessment: Patient appears in no apparent distress at this time. Patient and/or ss family updated on plan of care and expected duration. Pain level reassessed. Patient is alert, oriented x 3, equal unlabored respirations, skin warm/dry/pink. awaiting disposition. Vital Signs: 10:39 BP 141 / 81; Pulse 65; Resp 18; Temp 98.7(O); Pulse Ox 96% ; Weight 108.86 kg; Height 5 sv ft. 10 in. (177.80 cm); Pain 2/10; 10:39 Body Mass Index 34.44 (108.86 kg, 177.80 cm) sv Visual Acuity: 11:08 Left Eye Visual acuity 20/20, Pupil size 5 mm, Normal, React To Light, Reactive To ss Accomodation; Right Eye Visual acuity 20/20, Pupil size 5 mm, Normal, React To Light, Reactive To Accomodation; Both Eyes Visual acuity 20/20; With Lenses; ED Course: 10:22 Patient arrived in ED. sb2 10:23 Latoya Mcknight MD is Private Physician. sb2 10:37 Triage completed. sv 10:40 Arm band placed on right wrist. sv 10:42 Patient placed in waiting room, Patient notified of wait time. sv 10:57 No Goss, RN is Primary Nurse. ss 10:58 Patient has correct armband on for positive identification. Bed in low position. Call ss light in reach. 10:59 Osiris Quiroz FNP-C is PHCP. kb 10:59 Claudia Queen MD is Attending Physician. kb 11:05 Strep Sent. ss 11:08 No provider procedures requiring assistance completed. Patient did not have IV access ss during this emergency room visit. 11:30 X-ray completed. Patient tolerated procedure well. Patient moved back from radiology. 11:31 Chest Pa And Lat (2 Views) XRAY In Process Unspecified. EDMS Administered Medications: No medications were administered Outcome: 12:17 Discharge ordered by MD. kb 12:24 Discharged to home ambulatory. ss 12:24 Condition: good 12:24 Discharge instructions given to patient, Instructed on discharge instructions, follow up and referral plans. medication usage, Demonstrated understanding of instructions, follow-up care, medications, Prescriptions given X 1. 12:24 Patient left the ED. ss Signatures: Dispatcher [employer] EDMS Osiris Quiroz FNP-C FNP-Ckb Verde, Stephanie, RN RN sv Smirch, Shelby, KRUNAL RN Dasha Hanson Sol Estrada sb2 Corrections: (The following items were deleted from the chart) 10:40 10:37 Acuity: ANGE 3 sv sv
[2018-02-04 12:29] VITALS: BP 141/81; TEMP 98.7; O2SAT 96
== END 2018-02-04 12:24 | disposition home or self-care (01) ==
LOC: ER 10:16
DX: J06.9 Acute upper respiratory infection, unspecified (principal); H10.9 Unspecified conjunctivitis; I10 Essential (primary) hypertension; E78.5 Hyperlipidemia, unspecified; E11.9 Type 2 diabetes mellitus without complications
CPT/HCPCS: 71046; 87070; 87081; 87804; 99283

== ENCOUNTER 2018-03-03 21:41 | Emergency (ER) | payer OTHER, SELFPAY ==
--- OUTSIDE RECORDS SUMMARY | 2018-03-03 21:43 | XMS REPORT | Continuity of Care Document ---
:1965 Author Organization Interface Problems Problem Status Onset Classification Date Comments Source Date Reported LUMBAR STENOSIS Active [address] M54.[address] Abdominal pain Resolved Problem 12/07/2017 [facility] Chest pain Resolved Problem 12/07/2017 [facility] Back pain, Resolved Problem 12/07/2017 [facility] chronic [facility] Diabetes Active Problem 12/07/2017 [facility] High Active Problem 12/07/2017 [facility] cholesterol [facility] High blood Active Problem 12/07/2017 [facility] pressure [facility] Morbid obesity Active Problem 12/07/2017 [facility] Lumbar Active Problem 12/07/2017 [facility] herniated disc [facility] Medications Medication Details Route Status Patient Ordering Order Source Instructions Provider Date amitriptyline 10 10 mg=1 Active [facility] mg oral tablet tab, PO, 017 Neuro Bedtime, 4 tabs at bedtime for 1 week then 5 tabs at bedtime thereafter , # 150 tab, 2 Refill(s), Pharmacy: [facility] diclofenac sodium 75 mg=1 Active [facility] 75 mg oral enteric tab, PO, 017 Neuro coated, BID, PRN delayed-release Pain Score tablet 7-10, # 60 tab, 2 Refill(s), [facility] Cyclobenzaprine 10 mg=1 Active [facility] hydrochloride 10 tab, PO, 017 Neuro MG Oral Tablet BID, # 60 [Flexeril] tab, 2 Refill(s), Pharmacy: [facility] Sodium Chloride 4.2 mL, Inactive [facility] Route: 017 Neuro EPIDURAL, Dosing Weight 141.364, kg, ONCE, (Preservat liliana Free), Start date: 04/25/17 8:50:00 JIG MILL OPERATOR, Stop date: 04/25/17 8:50:00 JIG MILL OPERATOR Lidocaine 3 mL, Inactive [facility] Hydrochloride 10 Route: 017 Neuro MG/ML Injectable SUB-Q, Solution Dosing Weight 141.364, kg, ONCE, (Preservat liliana Free), Start date: 04/25/17 8:50:00 JIG MILL OPERATOR, Stop date: 04/25/17 8:50:00 JIG MILL OPERATOR Omnipaque 300 2 mL, Inactive [facility] Route: 017 Neuro EPIDURAL, Dosing Weight 141.364, kg, ONCE, (Preservat liliana Free), Start date: 04/25/17 8:50:00 JIG MILL OPERATOR, Stop date: 04/25/17 8:50:00 JIG MILL OPERATOR Dexamethasone 8 mg, Inactive [facility] Route: 017 Neuro EPIDURAL, ONCE, Dosing Weight 141.364, kg, (Preservat liliana Free), Start date: 04/25/17 8:50:00 JIG MILL OPERATOR, Stop date: 04/25/17 8:50:00 JIG MILL OPERATOR Bupivacaine 2 mL, Inactive [facility] Hydrochloride 2.5 Route: 017 Neuro MG/ML Injectable EPIDURAL, Solution Dosing Weight 141.364, kg, ONCE, (Preservat liliana Free), Start date: 04/25/17 8:50:00 JIG MILL OPERATOR, Stop date: 04/25/17 8:50:00 JIG MILL OPERATOR Allergies, Adverse Reactions, Alerts Substance Category Reaction Severity Reaction Status Date Comments Source type Reported Immunizations Immunization Date Given Site Status Last Updated Comments Source Results Order Name Results Value Reference Date Interpretation Comments Source Range HEMATOLOGY PTT 29.4 s 22.9 - 04/29 [facility] 35.8 /2016 [facility] HEMATOLOGY PT 12.8 s 12.0 - 04/29 [facility] 14.7 /2016 [facility] HEMATOLOGY INR 0.96 0.85 - 04/29 [facility] 1.17 [facility] CHEM PANEL eGFR 95 04/29 Result Comment: The eGFR is calculated using the CKD-EPI formula. In most young, healthy individuals the eGFR will be >90 mL/ min/1.73m2. The eGFR declines with age. An eGFR of 60-89 may be normal in [facility] mL/min/1.73 /2017 some populations, particularly the elderly, for whom the CKD-EPI formula has not been extensively validated. Use of the eGFR is not recommended in the following populations: [address] Individuals with unstable creatinine concentrations, including [...] PANEL Creatinine 0.92 mg/dL 0.50 - 04/29 [facility] Lvl 1.40 /2016 [facility] CHEM PANEL BUN 21 mg/dL 7 - 22 04/29 [facility] HEMATOLOGY MCV 84.7 fL 80.0 - 04/29 [facility] 94.0 [facility] HEMATOLOGY Hct 41.3 % 42.0 - 04/29 [facility] 54.0 [facility] HEMATOLOGY MCH 27.9 pg 27.0 - 04/29 [facility] 31.0 [facility] HEMATOLOGY MCHC 32.9 g/dL 32.0 - 04/29 [facility] 36.0 [facility] HEMATOLOGY WBC 7.2 K/CMM 3.7 - 10.4 04/29 [facility] HEMATOLOGY RBC 4.87 M/CMM 4.70 - 04/29 [facility] 6.10 [facility] HEMATOLOGY Hgb 13.6 g/dL 14.0 - 04/29 [facility] 18.0 [facility] HEMATOLOGY RDW 16.1 % 11.5 - 04/29 [facility] 14.5 [facility] HEMATOLOGY Platelet 239 K/CMM 133 - 450 04/29 [facility] HEMATOLOGY MPV 8.0 fL 7.4 - 10.4 04/29 [facility] Spine Spine EXAM: CT MYELOGRAM LUMBAR SPINE 04/29 - [facility] lumbar lumbar - Medical myelogram myelogram EXAM: CT MYELOGRAM THORACIC SPINE This report was dictated by a Machine Bander And Cellophaner/Fellow. I have personally reviewed the images as [...] EXAM: CT MYELOGRAM LUMBAR SPINE 04/29 - [facility] thoracic thoracic /2017 - Medical myelogram myelogram EXAM: CT MYELOGRAM THORACIC SPINE This report was dictated by a Machine Bander And Cellophaner/Fellow. I have personally reviewed the images as [...] EXAM: CT MYELOGRAM LUMBAR SPINE 04/29 - [facility] thoracic thoracic /2017 - Medical myelogram myelogram EXAM: CT MYELOGRAM THORACIC SPINE This report was dictated by a Machine Bander And Cellophaner/Fellow. I have personally reviewed the images as [...] EXAM: CT MYELOGRAM LUMBAR SPINE 04/29 - [facility] /2016 - Medical myelogram myelogram EXAM: CT MYELOGRAM THORACIC SPINE This report was dictated by a Machine Bander And Cellophaner/Fellow. I have personally reviewed the images as [...] XR ENTIRE SPINE 2 VIEWS 03/19 - [facility] (or entire) (or entire) /2016 - [...] Date Comments Source Height 177.8 cm 06/05/2017 [facility] Weight 146.818 06/05/2017 [facility] BMI Calculated 46.44 06/05/2017 [facility] Systolic (mm Hg) 130 [facility]05[facility] Diastolic (mm Hg) 83 06/05/2017 [facility] Temperature Oral (F) 99.3 F 06/05/2017 [facility] Heart Rate 70 06/05/2017 [facility] BMI Calculated 44.72 04/29/2017 [facility] Weight 141.36 04/29/2017 [facility] Height 177.8 cm 04/29/2017 [facility] Heart Rate 66 04/29/2017 [facility] Respitory Rate 20 04/29/2017 [facility] Systolic (mm Hg) 140 04/29/2017 [facility] Diastolic (mm Hg) 73 04/29/2017 [facility] Encounters Location Location Encounter Encounter Reason Attending ADM DC Status Source Details Type Number For Provider Date Date Visit Outpatient [id number] VIOLA 08/19 [facility] [place] 2] [place] [facility] [id number] MANJINDER KOWALSKI 09/04 [facility] [place] [facility] Outpatient [id number] MANJINDER KOWALSKI 03/19 [facility] [place] [facility] [id number] CONY 03/19 [facility] Outpatient [id number] Manjinder Kowalski 03/19 03/20 [facility] /2016 [facility] Outpatient [id number] DULCE LAU 04/04 Active [facility] Spine Phone [id number] 04/24 04/26 [facility] Message /2016 [facility] Phone [id number] 04/24 04/26 [facility] Message /2016 [facility] [id number] CONY 04/25 [facility] Outpatient [id number] Harjeet 04/25 04/26 [facility] /2016 [facility] [id number] Dulce Lau 04/29 04/30 [facility] /2016 [facility] Spine Phone [id number] 04/30 05/02 [facility] Message /2016 [facility] [id number] DULCE LAU 06/05 Active [facility] [place] [facility] Outpatient [id number] Harjeet 06/05 06/06 [facility] /2017 [facility] Phone [id number] 06/06 06/08 [facility] Message /2017 [facility] [id number] JOHN QUINN 12/04 [facility] [place] [facility] Ambulatory [id number] Harjeet 12/04 12/04 [facility]Reg /2017 [facility] Procedures Procedure Code Date Perfomer Comments Source Myelography via [id number] 04/29/2017 [facility] lumbar injection, Medical including Center radiological supervision and interpretation; thoracic Myelography via [id number] 04/29/2017 [facility] lumbar [facility] including [place] radiological supervision and interpretation; lumbosacral NJX INTERLAMINAR 04/25/2017 [facility] LMBR/SA Ear operations [id number] [facility] Lumbar epidural [id number] [facility] injection Lumbar epidural [id number] [facility] steroid injection Nose operation [id number] [facility] Operation [id number] [facility] Ear operations [id number] [facility] Lumbar epidural [id number] [facility] Lumbar epidural [id number] [facility] steroid [facility] Nose operation [id number] [facility] Operation [id number] [facility]
--- OUTSIDE RECORDS SUMMARY | 2018-03-03 21:45 | XMS REPORT ---
:1965 [facility] Address [address] [place] [address] [address] [place] [address] Care Team Providers Name Role Phone LOPEZHAIMMADI Unavailable Unavailable TAMMY BETANCOURT Unavailable Unavailable Problems This patient has no known problems. Allergies, Adverse Reactions, Alerts This patient has no known allergies or adverse reactions. Medications This patient has no known medications. Results Test Description Test Time Test Comments Text Results Atomic Results Result Comments [facility] 2017-01-28 05:57:00 Test Item Value Reference Range [...] EGFR if Non- >60 mL/min/1.73m\\S\\2 Estimated Glomerular [place] (test Filtration Rate (eGFR) code=EGFRNA) Reference Intervals [...] of chronic kidney failure. CBC WITH AUTO [id number] 05:42:00 Test Item Value Reference Range Comments [...] 1.0-3.0 IG% (test code=IG%) 1.0 % 0.0-0.4 [id number] 05:53:00 Test Item Value Reference Range Comments [...] mL/min/1.73m\\S\\2 EGFR if Non- >60 Estimated Glomerular [place] (test mL/min/1.73m\\S\\2 Filtration Rate (eGFR) code=EGFRNA) Reference [...] of chronic kidney failure. CBC WITH AUTO [id number] 05:27:00 Test Item Value Reference Range Comments [...] 1.0-3.0 IG% (test code=IG%) 1.7 % 0.0-0.4 [id number] 04:36:00 Test Item Value Reference Range Comments [...] mL/min/1.73m\\S\\2 EGFR if Non- >60 Estimated Glomerular [place] (test mL/min/1.73m\\S\\2 Filtration Rate (eGFR) code=EGFRNA) Reference [...] of chronic kidney failure. CBC WITH AUTO [id number] 04:14:00 Test Item Value Reference Range Comments [...] 1.0-3.0 IG% (test code=IG%) 1.9 % 0.0-0.4 [id number] 04:40:00 Test Item Value Reference Range Comments [...] mL/min/1.73m\\S\\2 EGFR if Non- >60 Estimated [place]omerular [place] (test mL/min/1.73m\\S\\2 Filtration Rate (eGFR) code=EGFRNA) Reference [...] of chronic kidney failure. CBC WITH AUTO [id number] 04:09:00 Test Item Value Reference Range Comments [...] IG% (test code=IG%) 2.4 % 0.0-0.4 CULTURE, [id number] 06:50:00To start 15mins after 1st cultureSpecimen: BloodCollected: 01/18/2017 04:05 Status: Final Last Updated: 01/23/2017 06: 49 (1) To start 15mins after 1st culture Culture Result (Final) (Final ) No Growth After 5 DaysCULTURE, [id number] 06:50:00Specimen: BloodCollected: 01/18/2017 03:55 Status: Final Last Updated: 01/23/2017 06: 49 Culture Result (Final) (Final) No Growth After 5 DaysCBC WITH AUTO [id number] 04:31:00 Test Item Value Reference Range Comments [...] 1.0-3.0 IG% (test code=IG%) 3.4 % 0.0-0.4 [id number] 04:19:00 Test Item Value Reference Range Comments [...] mL/min/1.73m\\S\\2 EGFR if Non- >60 Estimated Glomerular [place] (test mL/min/1.73m\\S\\2 Filtration Rate (eGFR) code=EGFRNA) Reference [...] of chronic kidney failure. CBC WITH AUTO [id number] 04:57:00 Test Item Value Reference Range Comments [...] (test code=IG%) 4.0 % 0.0-0.4 CBC AUTO [id number] 04:35:00 Test Item Value Reference Range Comments [...] mL/min/1.73m\\S\\2 EGFR if Non- >60 Estimated [place]omerular [place] (test mL/min/1.73m\\S\\2 Filtration Rate (eGFR) code=EGFRNA) Reference [...] of chronic kidney failure. CBC WITH AUTO [id number] 05:01:00 Test Item Value Reference Range Comments [...] (test code=IG%) 4.5 % 0.0-0.4 CBC AUTO [id number] 04:56:00 Test Item Value Reference Range Comments [...] mL/min/1.73m\\S\\2 EGFR if Non- >60 Estimated [place]omerular [place] (test mL/min/1.73m\\S\\2 Filtration Rate (eGFR) code=EGFRNA) Reference [...] of chronic kidney failure. CBC WITH AUTO [id number] 05:57:00 Test Item Value Reference Range Comments [...] 1.0-3.0 IG% (test code=IG%) 4.8 % 0.0-0.4 [id number] 05:41:00 Test Item Value Reference Range Comments Magnesium (test code=MG) 2.0 mg/dl 1.6-2.3 [id number] 05:41:00 Test Item Value Reference Range Comments [...] mL/min/1.73m\\S\\2 EGFR if Non- >60 Estimated [place]omerular [place] (test mL/min/1.73m\\S\\2 Filtration Rate (eGFR) code=EGFRNA) Reference [...] management of chronic kidney failure. LACTIC ACID [id number] 06:43:00 Test Item Value Reference Range Comments LACTATE (test code=LAC) 0.9 mmol/l 0.7-2.0 GLYCOSALATED [id number] 05:41:00 Test Item Value Reference Range Comments Hemoglobin A1C (test 9.06 % 4.3-6.0 code=GLYCO) Mean Plasma Glucose (test 245 mg/dl 90-180 WHEN TEST RESULTS FOR A1C code=MPG) EXCEED 14.0, THE LINEAR LIMIT OF THE INSTRUMENT, THE CALCULATED RESULT FOR THE MEAN GLUCOSE IS NOT RELIABLE. CORONARY [id number] 05:09:00 Test Item Value Reference Range Comments [...] Average vLDL (test code=VLDL) 37 mg/dl 30-60 [id number] 04:51:00 Test Item Value Reference Range Comments Magnesium (test code=MG) 2.1 mg/dl 1.6-2.3 [id number] 04:51:00 Test Item Value Reference Range Comments CPK (test code=CPK) 93 U/L 30-135 LIPASE, [id number] 04:43:00 Test Item Value Reference Range Comments Lipase (test code=LIPA) 116 U/L 8-223 [id number] 04:43:00 Test Item Value Reference Range Comments [...] mL/min/1.73m\\S\\2 EGFR if Non- >60 Estimated Glomerular [place] (test mL/min/1.73m\\S\\2 Filtration Rate (eGFR) code=EGFRNA) Reference [...]
[2018-03-03] MEDS ORDERED: NA CHLORIDE 0.9% 1,000 ML ONE (22:29)
[2018-03-03] MEDS ORDERED: INSULIN -REGULAR HUMAN 50 UNIT/0.5 ML ML ONE (22:31)
[2018-03-03 22:37] LABS: Absolute Lymphocytes (CBC) 1.4 K/uL (0.7-4.9); Absolute Monocytes 0.4 K/uL (0.1-1.3); Absolute Neutrophil 3.3 K/uL (1.8-8.0); Basophils % 1.2 % (0-1.3); Eosinophils % 5.6 % (0-4.4); Hematocrit 44.5 % (39.6-49.0); Lymphocytes % 24.7 % (15.3-44.8); MCV 84.1 fL (80-100); MPV 8.4 fL (7.6-11.3); Monocytes % 7.9 % (3.3-12.3); RBC Red Blood Cell Count 5.29 M/uL (4.33-5.43)
[2018-03-03 23:09] LABS: BUN Blood Urea Nitrogen 17 mg/dL (7-18); Bicarbonate 30 mmol/L (21-32); Glucose Level 480 mg/dL (74-106); Potassium 4.7 mmol/L (3.5-5.1); Sodium Level 134 mmol/L (136-145)
--- NOTE | 2018-03-04 00:54 | ER ---
Nurse's Notes [facility] Name: Nicola Harvey Age: 53 yrs Sex: Male : 1965 Arrival Date: 03/03/2018 Time: 21:43 Bed 5 Private MD: Latoya Mcknight C Diagnosis: Hyperglycemia, unspecified;Dehydration Presentation: 03/03 22:00 Presenting complaint: Patient states: home [id number], reports being out of several home sr5 medications due to job loss. PMH=IDDM, HTN. Reports frequent urination, RG, and chest "pings" since Friday. Transition of care: patient was not received from another setting of care. Onset of symptoms was February 28, 2018. 22:00 Method Of Arrival: Ambulatory sr5 22:00 Acuity: ANGE 3 sr5 22:35 Risk Assessment: Do you want to hurt yourself or someone else? Patient reports no ea desire to harm self or others. Initial Sepsis Screen: Does the patient meet any 2 criteria? No. Patient's initial sepsis screen is negative. Does the patient have a suspected source of infection? No. Patient's initial sepsis screen is negative. Care prior to arrival: None. Triage Assessment: 22:02 General: Appears in no apparent distress. Behavior is calm, cooperative. Pain: sr5 Complains of pain in chest Pain does not radiate. Pain currently is 3 out of 10 on a pain scale. Quality of pain is described as "ping". Neuro: Level of Consciousness is awake, alert, obeys commands, Oriented to person, place, time, situation, Rat Exterminator are equal bilaterally Moves all extremities. Gait is steady, Speech is normal, Facial symmetry appears normal, generalized headache, no neuro deficits noted. Cardiovascular: Patient's skin is warm and dry. Respiratory: Respiratory effort is even, unlabored, Respiratory pattern is regular, symmetrical. Historical: - Allergies: 22:02 No Known Allergies; sr5 - PMHx: 22:02 Diabetes - IDDM; Hyperlipidemia; Hypertension; lower back pain with injecitons; sr5 - PSHx: 22:02 back; sr5 - Immunization history:: Adult Immunizations up to date. - Social history:: Smoking status: Patient/guardian denies using tobacco. - Ebola Screening: : No symptoms or risks identified at this time. - Family history:: not pertinent. - Hospitalizations: : No recent hospitalization is reported. Screenin:31 Abuse screen: Denies threats or abuse. Nutritional screening: No deficits noted. ea Tuberculosis screening: No symptoms or risk factors identified. Fall Risk None identified. Assessment: 22:30 General: Appears in no apparent distress. Behavior is calm, cooperative, appropriate ea for age. Pain: Denies pain. Neuro: Level of Consciousness is awake, alert, obeys commands, Oriented to person, place, time, situation. Cardiovascular: Patient's skin is warm and dry. Respiratory: Airway is patent Respiratory effort is even, unlabored, Respiratory pattern is regular, symmetrical, Breath sounds are clear bilaterally. GI: No signs and/or symptoms were reported involving the gastrointestinal system. : Reports urinary frequency. Derm: Skin is dry, Skin is normal, Skin temperature is warm. Musculoskeletal: Circulation, motion, and sensation intact. 23:30 Reassessment: Patient and/or family updated on plan of care and expected duration. Pain ea level reassessed. Patient is alert, oriented x 3, equal unlabored respirations, skin warm/dry/pink. 03/04 00:12 Reassessment: Patient and/or family updated on plan of care and expected duration. Pain ea level reassessed. Patient is alert, oriented x 3, equal unlabored respirations, skin warm/dry/pink. 00:58 Reassessment: Patient and/or family updated on plan of care and expected duration. Pain ea level reassessed. Patient is alert, oriented x 3, equal unlabored respirations, skin warm/dry/pink. Discharge instructions given to patient, verbalized the understanding of instruction. Vital Signs: 03/03 22:02 BP 170 / 79; Pulse 66; Resp 18; Temp 98.5; Pulse Ox 100% on R/A; Weight 151.95 kg (R); sr5 Height 5 ft. 10 in. (177.80 cm); Pain 7/10; 23:00 BP 170 / 72; Pulse 71; Resp 18; Pulse Ox 95% on R/A; aa1 03/04 00:12 BP 169 / 73; Pulse 60; Resp 18; Pulse Ox 97% ; ea 00:50 BP 160 / 85; Pulse 65; Resp 16; Pulse Ox 98% on R/A; Pain 0/10; aa1 03/03 22:02 Body Mass Index 48.07 (151.95 kg, 177.80 cm) sr5 03/03 22:02 Headache pain sr5 ED Course: 21:43 Patient arrived in ED. am2 21:43 Latoya Mcknight MD is Private Physician. am2 22:02 Triage completed. sr5 22:02 Arm band placed on. EKG completed in triage. Results shown to MD. sr5 22:13 Asael Bernal MD is Attending Physician. rn 22:17 Penny Akers RN is Primary Nurse. ea 22:17 EKG done, by wind energy technician. reviewed by Asael Bernal MD. oe 22:20 Inserted saline lock: 20 gauge in right antecubital area, using aseptic technique. ea Blood collected. 22:35 Patient has correct armband on for positive identification. Bed in low position. Call ea light in reach. Side rails up X2. 23:11 Notified ED physician of a critical lab result(s). BGL 480. aa1 03/04 00:53 Latoya Mcknight MD is Referral Physician. rn 00:59 No provider procedures requiring assistance completed. IV discontinued, intact, ea bleeding controlled, No redness/swelling at site. Pressure dressing applied. Administered Medications: 03/03 22:28 Drug: Insulin Regular Human 10 units {Co-Signature: aa1 (Clara Cason RN).} Route: ea Sub-Q; Site: abdomen; 23:28 Follow up: Response: No adverse reaction; Blood sugar is lowered ea 22:36 Drug: NS 0.9% 1000 ml Route: IV; Rate: 1000 ml; Site: right antecubital; ea 03/04 01:00 Follow up: Response: No adverse reaction; IV Intake: 1000ml ea 01:01 Follow up: Response: No adverse reaction; IV Status: Completed infusion ea Point of Care Testing: Blood Glucose: 03/03 23:26 Blood Glucose: 313 mg/dL; aa1 03/04 00:50 Blood Glucose: 288 mg/dL; aa1 Ranges: Intake: 01:00 IV: 1000ml; Total: 1000ml. ea Outcome: 00:53 Discharge ordered by . rn 00:59 Discharged to home ambulatory, with significant other. ea 00:59 Condition: improved 00:59 Discharge instructions given to patient, Instructed on discharge instructions, follow up and referral plans. Demonstrated understanding of instructions, follow-up care. 01:01 Patient left the ED. ea Signatures: Clara Cason RN RN aa1 Asael Bernal MD MD rn Resecker, Sam, RN RN sr5 Jevon Mackey Amanda am2 Antunez, Elena RN RN ea Clara Cason RN aa1
--- NOTE | 2018-03-04 00:54 | EDPHYS ---
Physician Documentation [facility] Name: Nicola Harvey Age: 53 yrs Sex: Male : 1965 Arrival Date: 03/03/2018 Time: 21:43 Bed 5 Private MD: Latoya Mcknight C ED Physician Asael Bernal HPI: 03/03 23:22 This 53 yrs old Male presents to ER via Ambulatory with complaints of High rn Blood Sugar. 23:22 The patient or guardian reports generalized weakness, hyperglycemia. Onset: The rn symptoms/episode began/occurred at an unknown time. Associated signs and symptoms: Pertinent positives: polydipsia, polyuria. Current symptoms: In the emergency department the patient's symptoms are unchanged from the initial presentation. The patient has experienced similar episodes in the past. Reports lost job, can't afford some of his meds, has been taking his metformin and glimepride, sugar has been running high, + generalized weakness with increased urination. . Historical: - Allergies: 22:02 No Known Allergies; sr5 - PMHx: 22:02 Diabetes - IDDM; Hyperlipidemia; Hypertension; lower back pain with injecitons; sr5 - PSHx: 22:02 back; sr5 - Immunization history:: Adult Immunizations up to date. - Social history:: Smoking status: Patient/guardian denies using tobacco. - Ebola Screening: : No symptoms or risks identified at this time. - Family history:: not pertinent. - Hospitalizations: : No recent hospitalization is reported. ROS: 23:22 Constitutional: Negative for fever, chills, and weight loss, Eyes: Negative for injury, rn pain, redness, and discharge, Cardiovascular: Negative for chest pain, palpitations, and edema, Respiratory: Negative for shortness of breath, cough, wheezing, and pleuritic chest pain, Abdomen/GI: Negative for abdominal pain, nausea, vomiting, diarrhea, and constipation, MS/Extremity: Negative for injury and deformity, Skin: Negative for injury, rash, and discoloration, Neuro: Negative for headache, numbness, tingling, and seizure. Exam: 23:22 Constitutional: Overweight male, no acute distress Head/Face: Normocephalic, rn atraumatic. Eyes: Pupils equal round and reactive to light, extra-ocular motions intact. Lids and lashes normal. Conjunctiva and sclera are non-icteric and not injected. Cornea within normal limits. Periorbital areas with no swelling, redness, or edema. ENT: dry MM Cardiovascular: Regular rate and rhythm with a normal S1 and S2. No gallops, murmurs, or rubs. Normal PMI, no JVD. No pulse deficits. Respiratory: Lungs have equal breath sounds bilaterally, clear to auscultation and percussion. No rales, rhonchi or wheezes noted. No increased work of breathing, no retractions or nasal flaring. Abdomen/GI: Soft, non-tender, with normal bowel sounds. No distension or tympany. No guarding or rebound. No evidence of tenderness throughout. MS/ Extremity: Pulses equal, no cyanosis. Neurovascular intact. Full, normal range of motion. Equal circumference. Neuro: Awake and alert, GCS 15, oriented to person, place, time, and situation. Cranial nerves II-XII grossly intact. Motor strength 5/5 in all extremities. Sensory grossly intact. Cerebellar exam normal. Normal gait. Vital Signs: 22:02 BP 170 / 79; Pulse 66; Resp 18; Temp 98.5; Pulse Ox 100% on R/A; Weight 151.95 kg (R); sr5 Height 5 ft. 10 in. (177.80 cm); Pain 7/10; 23:00 BP 170 / 72; Pulse 71; Resp 18; Pulse Ox 95% on R/A; aa1 03/04 00:12 BP 169 / 73; Pulse 60; Resp 18; Pulse Ox 97% ; ea 00:50 BP 160 / 85; Pulse 65; Resp 16; Pulse Ox 98% on R/A; Pain 0/10; aa1 03/03 22:02 Body Mass Index 48.07 (151.95 kg, 177.80 cm) sr5 03/03 22:02 Headache pain sr5 MDM: 22:14 Patient medically screened. rn 03/04 00:51 Differential diagnosis: hyperglycemia. Data reviewed: vital signs, nurses notes, labor and delivery registered nurse test result(s), EKG, and as a result, I will discharge patient. Counseling: I had a detailed discussion with the patient and/or guardian regarding: the historical points, exam findings, and any diagnostic results supporting the discharge/admit diagnosis, lab results, the need for outpatient follow up, to return to the emergency department if symptoms worsen or persist or if there are any questions or concerns that arise at home. Response to treatment: the patient's symptoms have markedly improved after treatment, the patient's condition has returned to base line, patient is well hydrated. and as a result, I will discharge patient. Special discussion: I discussed with the patient/guardian in detail that at this point there is no indication for admission to the hospital. It is understood, however, that if the symptoms persist or worsen the patient needs to return immediately for re-evaluation. ED course: Pt improved, glucose down to 280s, hydrated, neg ketones, no acidosis, will dc home with pcp f/u, patient states his insurance just recently kicked in, will make appt with Dr Mcknight tomorrow for reeval and diabetes management, no need for emergent hospitalization at this point. . 03/03 22:21 Order name: CBC with Diff; Complete Time: 23:15 rn 03/03 22:21 Order name: Basic Metabolic Panel; Complete Time: 23:15 rn 03/03 22:21 Order name: EKG; Complete Time: 22:21 rn 03/03 22:21 Order name: Ketone, Serum; Complete Time: 23:15 rn 03/03 22:21 Order name: IV Start; Complete Time: 22:21 rn 03/03 22:21 Order name: EKG - Nurse/Tech; Complete Time: 22:21 rn Administered Medications: 03/03 22:28 Drug: Insulin Regular Human 10 units {Co-Signature: aa1 (Clara Cason RN).} Route: ea Sub-Q; Site: abdomen; 23:28 Follow up: Response: No adverse reaction; Blood sugar is lowered ea 22:36 Drug: NS 0.9% 1000 ml Route: IV; Rate: 1000 ml; Site: right antecubital; ea 03/04 01:00 Follow up: Response: No adverse reaction; IV Intake: 1000ml ea 01:01 Follow up: Response: No adverse reaction; IV Status: Completed infusion ea Point of Care Testing: Blood Glucose: 03/03 23:26 Blood Glucose: 313 mg/dL; aa1 03/04 00:50 Blood Glucose: 288 mg/dL; aa1 Ranges: Critical Glucose Levels:Adult <50 mg/dl or >400 mg/dl <40 mg/dl or >180 mg/dl Disposition: 03/04/18 00:53 Discharged to Home. Impression: Hyperglycemia, unspecified, Dehydration. - Condition is Stable. - Discharge Instructions: Dehydration, Adult, Hyperglycemia, Blood Glucose Monitoring, Adult. - Medication Reconciliation Form, Thank You Letter, Antibiotic Education, Prescription Opioid Use form. - Follow up: Latoya Mcknight MD; When: As needed; Reason: Recheck today's complaints, Re-evaluation by your physician. - Problem is an ongoing problem. - Symptoms have improved. Signatures: Dispatcher [employer] EDMS Asael Bernal MD MD rn Reseckjodie, Alex RN RN sr5 Penny Akers RN RN ea Clara Cason RN aa1 Corrections: (The following items were deleted from the chart) 01:01 00:53 03/04/2018 00:53 Discharged to Home. Impression: Hyperglycemia, unspecified; ea Dehydration. Condition is Stable. Forms are Medication Reconciliation Form, Thank You Letter, Antibiotic Education, Prescription Opioid Use. Follow up: Latoya Mcknight; When: As needed; Reason: Recheck today's complaints, Re-evaluation by your physician. Problem is an ongoing problem. Symptoms have improved. rn
[2018-03-04 01:22] VITALS: TEMP 98.5
[2018-03-04 01:25] VITALS: BP 160/85; O2SAT 98
--- NOTE | 2018-03-04 08:37 | EKG ---
Test Date: 2018-03-03 Test Time: 22:11:06 Brand Coordinator: SANDOVAL MEASUREMENT RESULTS: Intervals: Rate: 66 FL: 156 QRSD: 106 QT: 412 QTc: 431 [place]: P: 22 FL: 156 QRS: 61 T: 45 INTERPRETIVE STATEMENTS: Normal sinus rhythm Incomplete right bundle branch block Borderline ECG Compared to ECG 09/07/2017 12:50:18 Sinus bradycardia no longer present Electronically Signed On 03-04-18 08:37:10 CDT by Yobani Tavera
== END 2018-03-04 01:01 | disposition home or self-care (01) ==
LOC: ER 21:41
DX: E86.0 Dehydration (principal); I10 Essential (primary) hypertension
CPT/HCPCS: 36415; 80048; 82010; 82962; 85025; 93005; 96360; 96361; 96372; 99284; J7030

== ENCOUNTER 2018-06-11 02:44 | Emergency (ER) | payer OTHER ==
--- OUTSIDE RECORDS SUMMARY | 2018-06-11 02:46 | XMS REPORT | Continuity of Care Document ---
:1965 Author Organization Interface Problems Problem Status Onset Classification Date Comments Source Date Reported LUMBAR STENOSIS Active [address] M54.[address] Abdominal pain Resolved Problem 12/07/2017 [facility] Chest pain Resolved Problem 12/07/2017 [facility] Back pain, Resolved Problem 12/07/2017 [facility] chronic [facility] Diabetes Active Problem 12/07/2017 [facility] High Active Problem 12/07/2017 [facility] cholesterol [facility] High blood Active Problem 12/07/2017 [facility] pressure [facility] Morbid obesity Active Problem 12/07/2017 [facility] Lumbar Active Problem 12/07/2017 [facility] herniated disc [facility] Medications Medication Details Route Status Patient Ordering Order Source Instructions Provider Date amitriptyline 10 10 mg=1 Active [facility] mg oral tablet tab, PO, 017 Neuro Bedtime, 4 tabs at bedtime for 1 week then 5 tabs at bedtime thereafter , # 150 tab, 2 Refill(s), Pharmacy: [facility] diclofenac sodium 75 mg=1 Active [facility] 75 mg oral enteric tab, PO, 017 Neuro coated, BID, PRN delayed-release Pain Score tablet 7-10, # 60 tab, 2 Refill(s), [facility] Cyclobenzaprine 10 mg=1 Active [facility] hydrochloride 10 tab, PO, 017 Neuro MG Oral Tablet BID, # 60 [Flexeril] tab, 2 Refill(s), Pharmacy: [facility] Sodium Chloride 4.2 mL, Inactive [facility] Route: 017 Neuro EPIDURAL, Dosing Weight 141.364, kg, ONCE, (Preservat liliana Free), Start date: 04/25/17 8:50:00 POWER SHEAR OPERATOR, Stop date: 04/25/17 8:50:00 POWER SHEAR OPERATOR Lidocaine 3 mL, Inactive [facility] Hydrochloride 10 Route: 017 Neuro MG/ML Injectable SUB-Q, Solution Dosing Weight 141.364, kg, ONCE, (Preservat liliana Free), Start date: 04/25/17 8:50:00 POWER SHEAR OPERATOR, Stop date: 04/25/17 8:50:00 POWER SHEAR OPERATOR Omnipaque 300 2 mL, Inactive [facility] Route: 017 Neuro EPIDURAL, Dosing Weight 141.364, kg, ONCE, (Preservat liliana Free), Start date: 04/25/17 8:50:00 POWER SHEAR OPERATOR, Stop date: 04/25/17 8:50:00 POWER SHEAR OPERATOR Dexamethasone 8 mg, Inactive [facility] Route: 017 Neuro EPIDURAL, ONCE, Dosing Weight 141.364, kg, (Preservat liliana Free), Start date: 04/25/17 8:50:00 POWER SHEAR OPERATOR, Stop date: 04/25/17 8:50:00 POWER SHEAR OPERATOR Bupivacaine 2 mL, Inactive [facility] Hydrochloride 2.5 Route: 017 Neuro MG/ML Injectable EPIDURAL, Solution Dosing Weight 141.364, kg, ONCE, (Preservat liliana Free), Start date: 04/25/17 8:50:00 POWER SHEAR OPERATOR, Stop date: 04/25/17 8:50:00 POWER SHEAR OPERATOR Allergies, Adverse Reactions, Alerts Substance Category Reaction Severity Reaction Status Date Comments Source type Reported Immunizations Immunization Date Given Site Status Last Updated Comments Source Results Order Name Results Value Reference Date Interpretation Comments Source Range HEMATOLOGY PTT 29.4 s 22.9 - 04/29 [facility] 35.8 /2016 [facility] HEMATOLOGY PT 12.8 s 12.0 - 04/29 [facility] 14.7 /2016 [facility] HEMATOLOGY INR 0.96 0.85 - 04/29 [facility] 1.17 [facility] CHEM PANEL eGFR 95 04/29 Result Comment: The eGFR is calculated using the CKD-EPI formula. In most young, healthy individuals the eGFR will be >90 mL/ min/1.73m2. The eGFR declines with age. An eGFR of 60-89 may be normal in [facility] mL/min/1.73 /2017 some populations, particularly the elderly, for whom the CKD-EPI formula has not been extensively validated. Use of the eGFR is not recommended in the following populations: [address] Individuals with unstable creatinine concentrations, including [...] PANEL Creatinine 0.92 mg/dL 0.50 - 04/29 [facility] Lvl 1.40 /2016 [facility] CHEM PANEL BUN 21 mg/dL 7 - 22 04/29 [facility] HEMATOLOGY MCV 84.7 fL 80.0 - 04/29 [facility] 94.0 [facility] HEMATOLOGY Hct 41.3 % 42.0 - 04/29 [facility] 54.0 [facility] HEMATOLOGY MCH 27.9 pg 27.0 - 04/29 [facility] 31.0 [facility] HEMATOLOGY MCHC 32.9 g/dL 32.0 - 04/29 [facility] 36.0 [facility] HEMATOLOGY WBC 7.2 K/CMM 3.7 - 10.4 04/29 [facility] HEMATOLOGY RBC 4.87 M/CMM 4.70 - 04/29 [facility] 6.10 [facility] HEMATOLOGY Hgb 13.6 g/dL 14.0 - 04/29 [facility] 18.0 [facility] HEMATOLOGY RDW 16.1 % 11.5 - 04/29 [facility] 14.5 [facility] HEMATOLOGY Platelet 239 K/CMM 133 - 450 04/29 [facility] HEMATOLOGY MPV 8.0 fL 7.4 - 10.4 04/29 [facility] Spine Spine EXAM: CT MYELOGRAM LUMBAR SPINE 04/29 - [facility] lumbar lumbar - Medical myelogram myelogram EXAM: CT MYELOGRAM THORACIC SPINE This report was dictated by a Toppiece Chopper/Fellow. I have personally reviewed the images as [...] EXAM: CT MYELOGRAM LUMBAR SPINE 04/29 - [facility] thoracic thoracic /2017 - Medical myelogram myelogram EXAM: CT MYELOGRAM THORACIC SPINE This report was dictated by a Toppiece Chopper/Fellow. I have personally reviewed the images as [...] EXAM: CT MYELOGRAM LUMBAR SPINE 04/29 - [facility] thoracic thoracic /2017 - Medical myelogram myelogram EXAM: CT MYELOGRAM THORACIC SPINE This report was dictated by a Toppiece Chopper/Fellow. I have personally reviewed the images as [...] CT MYELOGRAM LUMBAR SPINE 04/29 - [facility] /2016 - Medical myelogram myelogram EXAM: CT MYELOGRAM THORACIC SPINE This report was dictated by a Toppiece Chopper/Fellow. I have personally reviewed the images as [...] XR ENTIRE SPINE 2 VIEWS 03/19 - [facility] (or entire) (or entire) /2016 - Medical [...] Comments Source Height 177.8 cm 06/05/2017 [facility] Neuro Weight 146.818 06/05/2017 [facility] Neuro BMI Calculated 46.44 06/05/2017 [facility] Neuro Systolic (mm Hg) 130 [facility]/05/[facility] Diastolic (mm Hg) 83 06/05/2017 [facility] Neuro Temperature Oral (F) 99.3 F 06/05/2017 [facility] Neuro Heart Rate 70 06/05/2017 [facility] Neuro BMI Calculated 44.72 04/29/2017 [facility] Weight 141.36 04/29/2017 [facility] Height 177.8 cm 04/29/2017 [facility] Heart Rate 66 04/29/2017 [facility] Respitory Rate 20 04/29/2017 [facility] Systolic (mm Hg) 140 04/29/2017 [facility] Diastolic (mm Hg) 73 04/29/2017 [facility] Encounters Location Location Encounter Encounter Reason Attending ADM DC Status Source Details Type Number For Provider Date Date Visit Outpatient [id number] VIOLA 08/19 [facility] [place] Outpatient [id number] MANJINDER KOWALSKI 09/04 [facility] Outpatient [id number] MANJINDER KOWALSKI 03/19 [facility] [place] Outpatient [id number] CONY 03/19 [facility] Outpatient [id number] Manjinder Kowalski 03/19 03/20 [facility] /2016 [facility] Outpatient [id number] DULCE LAU 04/04 Active [facility] Spine Phone [id number] 04/24 04/26 [facility] /2016 [facility] Phone [id number] 04/24 04/26 [facility] Message /2016 [facility] Outpatient [id number] CONY 04/25 [facility] Outpatient [id number] Harjeet 04/25 04/26 [facility] /2016 [facility] [id number] Dulce Lau 04/29 04/30 [facility] /2016 [facility] Spine Phone [id number] 04/30 05/02 [facility] Message /2016 [facility] [id number] DULCE LAU 06/05 Active [facility] [place] [facility] Outpatient [id number] Harjeet 06/05 06/06 [facility] /2017 [facility] Sp[facility] Phone [phone] 06/06 06/08 [facility] Message /2017 [facility] Outpatient [id number] JOHN QUINN 12/04 Active [facility] [place] [facility] Ambulatory [id number] Harjeet 12/04 12/04 [facility] Pre-Reg /2017 Neuro [facility] Procedures Procedure Code Date Perfomer Comments Source Myelography via [id number] 04/29/2017 [facility] lumbar injection, Medical including Center radiological supervision and interpretation; thoracic Myelography via [id number] 04/29/2017 [facility] lumbar [facility] including [place] radiological supervision and interpretation; lumbosacral NJX INTERLAMINAR 04/25/2017 [facility] Neuro LMBR/SA Ear operations [id number] [facility] Neuro Lumbar epidural [id number] [facility] Neuro injection Lumbar epidural [id number] [facility] Neuro steroid injection Nose operation [id number] [facility] Neuro Operation [id number] [facility] Neuro Ear operations [id number] [facility] Lumbar epidural [id number] [facility] Lumbar epidural [id number] [facility] steroid [facility] Nose operation [id number] [facility] Operation [id number] [facility]
--- OUTSIDE RECORDS SUMMARY | 2018-06-11 02:48 | XMS REPORT ---
:1965 Author [facility] [address] [place] [address] [address] [place] [address] Care Team Providers Name Role Phone VIANNEYAMDI Unavailable Unavailable TAMMY BETANCOURT Unavailable Unavailable Problems This patient has no known problems. Allergies, Adverse Reactions, Alerts This patient has no known allergies or adverse reactions. Medications This patient has no known medications. Results Test Description Test Time Test Comments Text Results Atomic Results Result Comments [facility] 2017-01-28 05:57:00 Test Item Value Reference Range [...] EGFR if Non- >60 mL/min/1.73m\\S\\2 Estimated Glomerular [place] (test Filtration Rate (eGFR) code=EGFRNA) Reference Intervals [...] of chronic kidney failure. CBC WITH AUTO [id number] 05:42:00 Test Item Value Reference Range Comments [...] 1.0-3.0 IG% (test code=IG%) 1.0 % 0.0-0.4 [id number] 05:53:00 Test Item Value Reference Range Comments [...] mL/min/1.73m\\S\\2 EGFR if Non- >60 Estimated Glomerular [place] (test mL/min/1.73m\\S\\2 Filtration Rate (eGFR) code=EGFRNA) Reference [...] of chronic kidney failure. CBC WITH AUTO [id number] 05:27:00 Test Item Value Reference Range Comments [...] 1.0-3.0 IG% (test code=IG%) 1.7 % 0.0-0.4 [id number] 04:36:00 Test Item Value Reference Range Comments [...] mL/min/1.73m\\S\\2 EGFR if Non- >60 Estimated Glomerular [place] (test mL/min/1.73m\\S\\2 Filtration Rate (eGFR) code=EGFRNA) Reference [...] of chronic kidney failure. CBC WITH AUTO [id number] 04:14:00 Test Item Value Reference Range Comments [...] 1.0-3.0 IG% (test code=IG%) 1.9 % 0.0-0.4 [id number] 04:40:00 Test Item Value Reference Range Comments [...] mL/min/1.73m\\S\\2 EGFR if Non- >60 Estimated Glomerular [place] (test mL/min/1.73m\\S\\2 Filtration Rate (eGFR) code=EGFRNA) Reference [...] of chronic kidney failure. CBC WITH AUTO [id number] 04:09:00 Test Item Value Reference Range Comments [...] IG% (test code=IG%) 2.4 % 0.0-0.4 CULTURE, [id number] 06:50:00To start 15mins after 1st cultureSpecimen: BloodCollected: 01/18/2017 04:05 Status: Final Last Updated: 01/23/2017 06: 49 (1) To start 15mins after 1st culture Culture Result (Final) (Final ) No Growth After 5 DaysCULTURE, [id number] 06:50:00Specimen: BloodCollected: 01/18/2017 03:55 Status: Final Last Updated: 01/23/2017 06: 49 Culture Result (Final) (Final) No Growth After 5 DaysCBC WITH AUTO [id number] 04:31:00 Test Item Value Reference Range Comments [...] 1.0-3.0 IG% (test code=IG%) 3.4 % 0.0-0.4 [id number] 04:19:00 Test Item Value Reference Range Comments [...] mL/min/1.73m\\S\\2 EGFR if Non- >60 Estimated Glomerular [place] (test mL/min/1.73m\\S\\2 Filtration Rate (eGFR) code=EGFRNA) Reference [...] of chronic kidney failure. CBC WITH AUTO [id number] 04:57:00 Test Item Value Reference Range Comments [...] (test code=IG%) 4.0 % 0.0-0.4 CBC AUTO [id number] 04:35:00 Test Item Value Reference Range Comments [...] mL/min/1.73m\\S\\2 EGFR if Non- >60 Estimated Glomerular [place] (test mL/min/1.73m\\S\\2 Filtration Rate (eGFR) code=EGFRNA) Reference [...] of chronic kidney failure. CBC WITH AUTO [id number] 05:01:00 Test Item Value Reference Range Comments [...] (test code=IG%) 4.5 % 0.0-0.4 CBC AUTO [id number] 04:56:00 Test Item Value Reference Range Comments [...] mL/min/1.73m\\S\\2 EGFR if Non- >60 Estimated Glomerular [place] (test mL/min/1.73m\\S\\2 Filtration Rate (eGFR) code=EGFRNA) Reference [...] of chronic kidney failure. CBC WITH AUTO [id number] 05:57:00 Test Item Value Reference Range Comments [...] 1.0-3.0 IG% (test code=IG%) 4.8 % 0.0-0.4 [id number] 05:41:00 Test Item Value Reference Range Comments Magnesium (test code=MG) 2.0 mg/dl 1.6-2.3 [id number] 05:41:00 Test Item Value Reference Range Comments [...] mL/min/1.73m\\S\\2 EGFR if Non- >60 Estimated Glomerular [place] (test mL/min/1.73m\\S\\2 Filtration Rate (eGFR) code=EGFRNA) Reference [...] management of chronic kidney failure. LACTIC ACID [id number] 06:43:00 Test Item Value Reference Range Comments LACTATE (test code=LAC) 0.9 mmol/l 0.7-2.0 GLYCOSALATED [id number] 05:41:00 Test Item Value Reference Range Comments Hemoglobin A1C (test 9.06 % 4.3-6.0 code=GLYCO) Mean Plasma Glucose (test 245 mg/dl 90-180 WHEN TEST RESULTS FOR A1C code=MPG) EXCEED 14.0, THE LINEAR LIMIT OF THE INSTRUMENT, THE CALCULATED RESULT FOR THE MEAN GLUCOSE IS NOT RELIABLE. CORONARY [id number] 05:09:00 Test Item Value Reference Range Comments [...] Average vLDL (test code=VLDL) 37 mg/dl 30-60 [id number] 04:51:00 Test Item Value Reference Range Comments Magnesium (test code=MG) 2.1 mg/dl 1.6-2.3 [id number] 04:51:00 Test Item Value Reference Range Comments CPK (test code=CPK) 93 U/L 30-135 LIPASE, [id number] 04:43:00 Test Item Value Reference Range Comments Lipase (test code=LIPA) 116 U/L 8-223 [id number] 04:43:00 Test Item Value Reference Range Comments [...] mL/min/1.73m\\S\\2 EGFR if Non- >60 Estimated Glomerular [place] (test mL/min/1.73m\\S\\2 Filtration Rate (eGFR) code=EGFRNA) Reference [...]
[2018-06-11] MEDS ORDERED: NA CHLORIDE 0.9% 1,000 ML ONE (03:37)
[2018-06-11 03:44] LABS: Absolute Lymphocytes (CBC) 1.1 K/uL (0.7-4.9); Absolute Monocytes 0.6 K/uL (0.1-1.3); Absolute Neutrophil 4.8 K/uL (1.8-8.0); Basophils % 1.1 % (0-1.3); Eosinophils % 4.5 % (0-4.4); Hematocrit 35.8 % (39.6-49.0); MPV 7.5 fL (7.6-11.3); Monocytes % 8.4 % (3.3-12.3); RBC Red Blood Cell Count 4.27 M/uL (4.33-5.43)
[2018-06-11 03:50] LABS: Protime INR 1.08
[2018-06-11 04:02] LABS: ALT/SGPT 34 U/L (12-78); AST/SGOT 22 U/L (15-37); Albumin 3.3 g/dL (3.4-5.0); Alkaline Phosphatase 66 U/L (45-117); BUN Blood Urea Nitrogen 15 mg/dL (7-18); Bicarbonate 26 mmol/L (21-32); Bilirubin Direct < 0.1 mg/dL (0-0.2); Bilirubin Total 0.3 mg/dL (0.2-1.0); Glucose Level 149 mg/dL (74-106); Lipase 139 U/L (73-393); Magnesium 2.2 mg/dL (1.8-2.4); NT PRO-BNP 90 pg/mL (<125); Potassium 4.1 mmol/L (3.5-5.1); Protein, Total 8.5 g/dL (6.4-8.2); Sodium Level 141 mmol/L (136-145)
--- NOTE | 2018-06-11 05:32 | ER ---
Nurse's Notes [facility] Name: Nicola Harvey Age: 53 yrs Sex: Male : 1965 Arrival Date: 06/11/2018 Time: 02:44 Bed 7 Private MD: Diagnosis: Dyspnea;Bronchitis, not specified as acute or chronic;Cardiomegaly Presentation: 06/11 02:48 Presenting complaint: EMS states: EMS reports pt stated he suddenly started to feel SOB ea about thirty minutes ago. BP 178/94, P:46 O2 at 98% RA. BGL 150. Transition of care: patient was not received from another setting of care. Onset of symptoms was June 11, 2018. Risk Assessment: Do you want to hurt yourself or someone else? Patient reports no desire to harm self or others. Initial Sepsis Screen: Does the patient meet any 2 criteria? No. Patient's initial sepsis screen is negative. Does the patient have a suspected source of infection? No. Patient's initial sepsis screen is negative. Care prior to arrival: None. 02:48 Method Of Arrival: EMS: [facility] ea 02:48 Acuity: ANGE 4 ea Triage Assessment: 02:56 General: Appears uncomfortable, Behavior is calm, cooperative. Pain: Complains of pain ea in back. EENT: No signs and/or symptoms were reported regarding the EENT system. Neuro: Level of Consciousness is awake, alert, obeys commands, Oriented to person, place, time, situation. Cardiovascular: Patient's skin is warm and dry. Respiratory: Airway is patent Respiratory effort is even, unlabored, Respiratory pattern is regular, symmetrical, Breath sounds are clear bilaterally. GI: Abdomen is round. Derm: discoloration to renato lower extremities. Historical: - Allergies: 02:56 No Known Allergies; ea - Home Meds: 02:56 Victoza 2-Quoc subcutaneous [Active]; Metoprolol Tartrate Oral [Active]; metformin 1,000 ea mg Oral tab 1 tab 2 times per day [Active]; lisinopril 40 mg Oral tab 1 tab once daily [Active]; amlodipine 5 mg tab 1 tab once daily [Active]; glimepiride 4 mg Oral tab 1 tab BID [Active]; Jardiance Oral [Active]; vancomycin intravenous intravenous [Active]; Zosyn intravenous intravenous [Active]; - PMHx: 02:56 lower back pain with injecitons; Hypertension; Hyperlipidemia; Diabetes - IDDM; ea - PSHx: 02:56 back; ea - Immunization history:: Adult Immunizations up to date. - Social history:: Smoking status: Patient/guardian denies using tobacco. - Ebola Screening: : No symptoms or risks identified at this time. - Family history:: not pertinent. Screenin:53 Abuse screen: Denies threats or abuse. Nutritional screening: No deficits noted. ea Tuberculosis screening: No symptoms or risk factors identified. Fall Risk None identified. Assessment: 02:56 Reassessment: see triage assesment. ea 03:52 Reassessment: Patient and/or family updated on plan of care and expected duration. Pain ea level reassessed. Patient is alert, oriented x 3, equal unlabored respirations, skin warm/dry/pink. Awaiting on lab results. 04:19 Reassessment: Patient and/or family updated on plan of care and expected duration. Pain ea level reassessed. Patient is alert, oriented x 3, equal unlabored respirations, skin warm/dry/pink. 05:50 Reassessment: Patient and/or family updated on plan of care and expected duration. Pain ea level reassessed. Patient is alert, oriented x 3, equal unlabored respirations, skin warm/dry/pink. 06:25 Reassessment: Patient and/or family updated on plan of care and expected duration. Pain ea level reassessed. Patient is alert, oriented x 3, equal unlabored respirations, skin warm/dry/pink. Awaiting on CT results. 07:15 Reassessment: Patient appears in no apparent distress at this time. Patient and/or ph family updated on plan of care and expected duration. Pain level reassessed. Patient is alert, oriented x 3, equal unlabored respirations, skin warm/dry/pink. Dr Mcknight at bedside to speak w/ pt, verbal order received to draw repeat troponin and to discharge pt if results are negative, also received verbal order to remove PICC line prior to d/c. 07:25 Reassessment: Pt ambulated to restroom, gait steady, denies SOB or dizziness. ph Vital Signs: 02:51 BP 179 / 93; Pulse 81; Resp 20; Temp 98.3; Pulse Ox 95% on R/A; Weight 143.34 kg; ea Height 5 ft. 10 in. (177.80 cm); 03:00 BP 167 / 91; Pulse 76; Resp 18; Pulse Ox 95% on R/A; ea 04:30 BP 148 / 86; Pulse 80; Resp 20 S; Pulse Ox 96% ; ea 05:00 BP 165 / 82; Pulse 67; Resp 18; Pulse Ox 95% on R/A; ea 06:55 BP 158 / 96; Pulse 84; Resp 18; Pulse Ox 95% ; ea 02:51 Body Mass Index 45.34 (143.34 kg, 177.80 cm) ea ED Course: 02:44 Patient arrived in ED. al2 02:47 Penny Akers, KRUNAL is Primary Nurse. ea 02:51 Triage completed. ea 02:53 Arm band placed on right wrist. Patient placed in an exam room, on a stretcher, on ea traffic monitor specialist, on pulse oximetry. 02:56 Patient has correct armband on for positive identification. Bed in low position. Call ea light in reach. Side rails up X 1. 02:57 Weston Carty MD is Attending Physician. leigh 03:25 Inserted saline lock: 20 gauge in right antecubital area, using aseptic technique. ea Blood collected. 03:30 Chest Single View In Process Unspecified. EDMS 05:30 Latoya Mcknight MD is Hospitalizing Provider. leigh 05:47 CT completed. Patient tolerated procedure well. Patient moved to CT via stretcher. vm2 Patient moved back from CT. 06:27 No provider procedures requiring assistance completed. ea 07:14 Harjeet Mcknight MD is Referral Physician. leigh 07:28 Repeat lab(s) drawn. by ma, sent to lab. by venipuncture 23G to right wrist. 3 07:44 US Extremity Venous W Compression Renato In Process Unspecified. EDMS 07:47 Patient moved back from ultrasound. sg Administered Medications: No medications were administered Outcome: 05:31 Decision to Hospitalize by Provider. leigh 07:14 Discharge ordered by . leigh 09:28 Patient left the ED. sg Signatures: Dispatcher [employer] EDMS Leonid Sosa RN RN sg Anderson, Corey, MD MD cha Hall, Patricia, RN RN Dodie Moctezuma [facility] Vi Amaya [facility] Penny Akers RN RN ea Love, Gricel al2 Corrections: (The following items were deleted from the chart) 07:28 07:28 Repeat lab(s) drawn. by me, sent to lab. 3 3
--- NOTE | 2018-06-11 05:32 | EDPHYS ---
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 03:54 The patient has shortness of breath at rest, with light activity. Onset: The leigh symptoms/episode began/occurred just prior to arrival. Duration: The symptoms are continuous, and are unchanged since they started. The patient's shortness of breath has no apparent modifying factors. Associated signs and symptoms: Pertinent positives: nausea. Severity of symptoms: At their worst the symptoms were mild moderate in the emergency department the symptoms are unchanged. The patient or guardian reports cough. Severity of symptoms: At their worst the symptoms were mild. Associated signs and symptoms:. Historical: - Allergies: 02:56 No Known Allergies; ea - Home Meds: 02:56 Victoza 2-Quoc subcutaneous [Active]; Metoprolol Tartrate Oral [Active]; metformin 1,000 ea mg Oral tab 1 tab 2 times per day [Active]; lisinopril 40 mg Oral tab 1 tab once daily [Active]; amlodipine 5 mg tab 1 tab once daily [Active]; glimepiride 4 mg Oral tab 1 tab BID [Active]; Jardiance Oral [Active]; vancomycin intravenous intravenous [Active]; Zosyn intravenous intravenous [Active]; - PMHx: 02:56 lower back pain with injecitons; Hypertension; Hyperlipidemia; Diabetes - IDDM; ea - PSHx: 02:56 back; ea - Immunization history:: Adult Immunizations up to date. - Social history:: Smoking status: Patient/guardian denies using tobacco. - Ebola Screening: : No symptoms or risks identified at this time. - Family history:: not pertinent. ROS: 03:54 Constitutional: Negative for fever, chills, and weight loss, Eyes: Negative for injury, leigh pain, redness, and discharge, ENT: Negative for injury, pain, and discharge, Neck: Negative for injury, pain, and swelling, Cardiovascular: Negative for chest pain, palpitations, and edema, Abdomen/GI: Negative for abdominal pain, nausea, vomiting, diarrhea, and constipation, Back: Negative for injury and pain, : Negative for injury, bleeding, discharge, and swelling, MS/Extremity: Negative for injury and deformity, Skin: Negative for injury, rash, and discoloration, Neuro: Negative for headache, weakness, numbness, tingling, and seizure, Psych: Negative for depression, anxiety, suicide ideation, homicidal ideation, and hallucinations, Allergy/Immunology: Negative for hives, rash, and allergies, Endocrine: Negative for neck swelling, polydipsia, polyuria, polyphagia, and marked weight changes, Hematologic/Lymphatic: Negative for swollen nodes, abnormal bleeding, and unusual bruising. 03:54 Respiratory: Positive for cough, shortness of breath, at rest. Exam: 03:54 Constitutional: This is a well developed, well nourished patient who is awake, alert, leigh and in no acute distress. Head/Face: Normocephalic, atraumatic. Eyes: Pupils equal round and reactive to light, extra-ocular motions intact. Lids and lashes normal. Conjunctiva and sclera are non-icteric and not injected. Cornea within normal limits. Periorbital areas with no swelling, redness, or edema. ENT: Nares patent. No nasal discharge, no septal abnormalities noted. Tympanic membranes are normal and external auditory canals are clear. Oropharynx with no redness, swelling, or masses, exudates, or evidence of obstruction, uvula midline. Mucous membranes moist. Neck: Trachea midline, no thyromegaly or masses palpated, and no cervical lymphadenopathy. Supple, full range of motion without nuchal rigidity, or vertebral point tenderness. No Meningismus. Chest/axilla: Normal chest wall appearance and motion. Nontender with no deformity. No lesions are appreciated. Cardiovascular: Regular rate and rhythm with a normal S1 and S2. No gallops, murmurs, or rubs. Normal PMI, no JVD. No pulse deficits. Abdomen/GI: Soft, non-tender, with normal bowel sounds. No distension or tympany. No guarding or rebound. No evidence of tenderness throughout. Back: No spinal tenderness. No costovertebral tenderness. Full range of motion. Male : Normal genitalia with no discharge or lesions. Skin: Warm, dry with normal turgor. Normal color with no rashes, no lesions, and no evidence of cellulitis. Neuro: Awake and alert, GCS 15, oriented to person, place, time, and situation. Cranial nerves II-XII grossly intact. Motor strength 5/5 in all extremities. Sensory grossly intact. Cerebellar exam normal. Normal gait. Psych: Awake, alert, with orientation to person, place and time. Behavior, mood, and affect are within normal limits. 03:54 Respiratory: the patient does not display signs of respiratory distress. 03:54 Musculoskeletal/extremity: Extremities: swelling, rash, swelling, venous stasis. Vital Signs: 02:51 BP 179 / 93; Pulse 81; Resp 20; Temp 98.3; Pulse Ox 95% on R/A; Weight 143.34 kg; ea Height 5 ft. 10 in. (177.80 cm); 03:00 BP 167 / 91; Pulse 76; Resp 18; Pulse Ox 95% on R/A; ea 04:30 BP 148 / 86; Pulse 80; Resp 20 S; Pulse Ox 96% ; ea 05:00 BP 165 / 82; Pulse 67; Resp 18; Pulse Ox 95% on R/A; ea 06:55 BP 158 / 96; Pulse 84; Resp 18; Pulse Ox 95% ; ea 02:51 Body Mass Index 45.34 (143.34 kg, 177.80 cm) ea MDM: 02:57 Patient medically screened. [facility] 03:58 Data reviewed: vital signs, nurses notes, lab test result(s), EKG, radiologic studies, [facility] CT scan, plain films. 06/11 03:01 Order name: Basic Metabolic Panel [facility] 06/11 03:01 Order name: CBC with Diff [facility] 06/11 03:01 Order name: LFT's [facility] 06/11 03:01 Order name: Magnesium [facility] 06/11 03:01 Order name: NT PRO-BNP [facility] 06/11 03:01 Order name: PT-INR [facility] 06/11 03:01 Order name: Troponin (emerg Dept Use Only) [facility] 06/11 03:01 Order name: Procalcitonin [facility] 06/11 03:01 Order name: Lipase [facility] 06/11 03:37 Order name: Basic Metabolic Panel; Complete Time: 07:41 EDMS 06/11 03:37 Order name: Liver (Hepatic) Function; Complete Time: 07:41 EDWA 06/11 03:37 Order name: NT PRO-BNP; Complete Time: 07:41 EDWA 06/11 03:01 Order name: XRAY Chest (1 view) [facility] 06/11 03:13 Order name: Chest Single View; Complete Time: 06:59 EDWA 06/11 03:37 Order name: Magnesium; Complete Time: 07:41 EDWA 06/11 03:37 Order name: Lipase; Complete Time: 07:41 EDWA 06/11 03:38 Order name: Procalcitonin; Complete Time: 05:02 EDWA 06/11 03:38 Order name: CBC with Automated Diff; Complete Time: 03:52 EDWA 06/11 03:38 Order name: Protime (+INR); Complete Time: 04:01 EDWA 06/11 03:38 Order name: Blood Culture [facility] 06/11 05:08 Order name: Blood Culture [facility] 06/11 05:09 Order name: Chest For Pe Angio [facility] 06/11 05:30 Order name: US Extremity Venous W Compression [place] [facility] 06/11 07:19 Order name: Troponin (emerg Dept Use Only); Complete Time: 07:59 06/11 07:24 Order name: Urine Dipstick-Ancillary; Complete Time: 07:40 EDWA 06/11 07:41 Order name: Troponin (Emerg Dept Use Only); Complete Time: 07:41 [facility]WA 06/11 03:01 Order name: EKG; Complete Time: 07:10 [facility] 06/11 03:01 Order name: Cardiac monitoring; Complete Time: 03:21 [facility] 06/11 03:01 Order name: EKG - Nurse/Tech; Complete Time: 03:21 [facility] 06/11 03:01 Order name: IV Saline Lock; Complete Time: 03:21 [facility] 06/11 03:01 Order name: Labs collected and sent; Complete Time: 03:32 [facility] 06/11 03:01 Order name: O2 Per Protocol; Complete Time: 03:21 [facility] 06/11 03:01 Order name: O2 Sat Monitoring; Complete Time: 03:21 [facility] Administered Medications: No medications were administered Disposition: 06/11/18 07:14 Discharged to Home. Impression: Dyspnea, Bronchitis, not specified as acute or chronic, Cardiomegaly. - Condition is Stable. - Discharge Instructions: Acute Bronchitis, Adult, Type 1 Diabetes Mellitus, Diagnosis, Adult, How to Use an Inhaler, Upper Respiratory Infection, Adult, Type 1 Diabetes Mellitus, Self Care, Adult, Type 1 Diabetes Mellitus, Diagnosis, Adult, [id number], Type 1 Diabetes Mellitus, Self Care, Adult, [id number]. - Prescriptions for Medrol (Quoc) 4 mg Oral Tablets, Dose Pack - take 1 tablet by ORAL route as directed - follow package instructions; 1 packet. Albuterol Sulfate 90 mcg/actuation - inhale 1-2 puff by INHALATION route every 4-6 hours; 1 Inhaler. - Medication Reconciliation Form, Thank You Letter, Antibiotic Education, Prescription Opioid Use form. - Follow up: Private Physician; When: 2 - 3 days; Reason: Recheck today's complaints, Continuance of care, Re-evaluation by your physician. Follow up: Harjeet Mcknight MD; When: 2 - 3 days; Reason: Recheck today's complaints, Continuance of care, Re-evaluation by your physician. - Problem is new. - Symptoms have improved. Signatures: Dispatcher [employer] [facility] Leonid Sosa RN RN sg Anderson, Corey, MD MD cha Therrien, Shelly, REAL ESTATE CONSULTANT-C REAL ESTATE CONSULTANT-Csnw Lora Monahan RN RN Penny Villaseñor RN RN ea Corrections: (The following items were deleted from the chart) 05:43 05:31 Hospitalization Ordered by A Juan Luis AMBROSE for Observation. Preliminary diagnosis is Dyspnea; Essential (primary) hypertension. Bed requested for Telemetry/MedSurg (observation). Status is Observation. Condition is Fair. Problem is new. Symptoms have improved. UTI on Admission? No. leigh 07:11 05:43 06/11/2018 05:31 Hospitalization Ordered by A Juan Luis AMBROSE for Observation. [facility] Preliminary diagnosis is Dyspnea; Essential (primary) hypertension. Bed requested for Telemetry/MedSurg (observation). Status is Observation. Condition is Fair. Problem is new. Symptoms have improved. UTI on Admission? No. cg 07:13 07:13 Chest For PE Angio+CT.RAD.BRZ ordered. [facility] EDWA 07:15 07:15 URINE DIPSTICK--ANCILLARY+U.LAB.BRZ ordered. [facility] EDMS 09:28 07:14 06/11/2018 07:14 Discharged to Home. Impression: Dyspnea; Bronchitis, not sg specified as acute or chronic; Cardiomegaly. Condition is Stable. Forms are Medication Reconciliation Form, Thank You Letter, Antibiotic Education, Prescription Opioid Use. Follow up: Private Physician; When: 2 - 3 days; Reason: Recheck today's complaints, Continuance of care, Re-evaluation by your physician. Follow up: Harjeet Mcknight; When: 2 - 3 days; Reason: Recheck today's complaints, Continuance of care, Re-evaluation by your physician. Problem is new. Symptoms have improved. leigh
[2018-06-11] MEDS ORDERED: ASPIRIN 81 MG CHEWABLE TABLET ONE (06:00)
[2018-06-11] MEDS ORDERED: ENOXAPARIN 100 MG/ML SYR SQ ONE (06:00)
[2018-06-11] MEDS ORDERED: FAMOTIDINE 20 MG/2 ML VIAL IV ONE (06:01)
--- NOTE | 2018-06-11 06:54 | RAD REPORT ---
EXAM DESCRIPTION: RAD - Chest Single View - 06/11/2018 3:30 am CLINICAL HISTORY: Dyspnea COMPARISON: March 2018 TECHNIQUE: AP portable chest image was obtained 0327 hours . FINDINGS: Lungs are clear. Heart and vasculature are normal. No measurable pleural effusion and no p neumothorax. No acute bony abnormality seen. No acute aortic findings suspected. Right upper extremit y PICC line is in place in good position. IMPRESSION: No acute cardiopulmonary process. No suspicious change from 2018 comparison.
[2018-06-11 07:23] LABS: Urine Blood NEGATIVE (NEG); Urine Glucose NEGATIVE (NEG); Urine Protein NEGATIVE (NEG); Urine Specific Gravity 1.005 (1.005-1.030); Urine pH 5.5 (5.0-7.0)
[2018-06-11 07:40] LABS: Troponin (Emerg Dept Use Only) < 0.02 ng/mL (0.0-0.045)
--- NOTE | 2018-06-11 07:54 | RAD REPORT ---
EXAM DESCRIPTION: US - Extrem Venous W Compress Mukund - 06/11/2018 7:43 am CLINICAL HISTORY: Leg pain and swelling COMPARISON: August 2017 TECHNIQUE: Real-time sonographic evaluation of the bilateral lower extremity common femoral, superfi cial femoral, popliteal and posterior tibial veins was performed. FINDINGS: Normal compressibility, flow augmentation, phasic flow and spontaneous flow are identified in the left and right lower extremity common femoral, superficial femoral, popliteal and posterior t ibial veins. No intraluminal filling defects seen. IMPRESSION: No DVT in either lower extremity.
--- NOTE | 2018-06-11 08:15 | EKG ---
Test Date: 2018-06-11 Test Time: 02:56:33 Kettle Worker: LINO MEASUREMENT RESULTS: Intervals: Rate: 76 TX: 150 QRSD: 108 QT: 416 QTc: 468 [place]: P: 25 TX: 150 QRS: 53 T: 33 INTERPRETIVE STATEMENTS: Sinus rhythm with frequent premature ventricular complexes Incomplete right bundle branch block Borderline ECG Compared to ECG 03/03/2018 22:11:06 Ventricular premature complex(es) now present Electronically Signed On 06-11-18 08:08:[address] by Ifeanyi Blood
--- NOTE | 2018-06-11 08:37 | RAD REPORT ---
EXAM DESCRIPTION: CT - Chest For Pe Angio - 06/11/2018 6:39 am CLINICAL HISTORY: Chest pain, shortness of breath A preliminary report was provided at the time of the study and reviewed prior to final report. COMPARISON: Chest exam same date TECHNIQUE: Dynamically enhanced 3 mm thick images of the chest were obtained during administration o f approximately 150mL Isovue 370 IV contrast. Coronal and oblique MIP reconstruction images were gene rated and reviewed. Exam utilizes a protocol to evaluate the pulmonary arterial tree. All CT scans are performed using dose optimization technique as appropriate and may include automated exposure control or mA/KV adjustment according to patient size. FINDINGS: No pulmonary emboli are identified. The aorta as imaged shows no acute or suspicious finding. No pericardial thickening or effusion. No focal infiltrate or mass. Minimal bronchial wall thickening is seen. No pleural effusion or pleura l thickening. No mediastinal or hilar suspicious masses. No chest wall masses or abnormal axillary lymphadenopathy. IMPRESSION: No pulmonary emboli identified. No focal mass or consolidation. Mild bronchial wall thickening may indicate viral infiltrate.
[2018-06-11 09:33] VITALS: TEMP 98.3
[2018-06-11 09:37] VITALS: O2SAT 95
[2018-06-11 09:38] VITALS: BP 158/96
== END 2018-06-11 09:28 | disposition home or self-care (01) ==
LOC: ER 02:44 → UNDOADMOB 05:32 → ERHOLD 05:32 → ER 09:28
DX: J40 Bronchitis, not specified as acute or chronic (principal); I10 Essential (primary) hypertension; E10.9 Type 1 diabetes mellitus without complications; E78.5 Hyperlipidemia, unspecified; I51.7 Cardiomegaly; Z79.84 Long term (current) use of oral hypoglycemic drugs
CPT/HCPCS: 36415; 71045; 71275; 80048; 80076; 81003; 83690; 83735; 83880; 84145; 84484; 85025; 85610; 87040; 93005; 93970; J1650; J7030; Q9967

== ENCOUNTER 2018-08-30 08:20 | Emergency (ER) | payer OTHER ==
--- OUTSIDE RECORDS SUMMARY | 2018-08-30 08:22 | XMS REPORT | Continuity of Care Document ---
:1965 Author Organization Interface Problems Problem Status Onset Classification Date Comments Source Date Reported LUMBAR STENOSIS Active [address] M54.[address] Abdominal pain Resolved Problem 12/07/2017 [facility] in male [facility] [place] [facility] Chest pain Resolved Problem 12/07/2017 [facility] [facility] Back pain, Resolved Problem 12/07/2017 [facility] chronic [facility] [place] [facility] Diabetes Active Problem 12/07/2017 [facility] [facility] High Active Problem 12/07/2017 [facility] cholesterol [facility] [place] [facility] High blood Active Problem 12/07/2017 [facility] pressure [facility] [place] [facility] Morbid obesity Active Problem 12/07/2017 [facility] [facility] Lumbar Active Problem 12/07/2017 [facility] herniated disc [facility] [place] [facility] Medications Medication Details Route Status Patient Ordering Order Source Instructions Provider Date amitriptyline 10 10 mg=1 Active [facility] mg oral tablet tab, PO, 017 Neuro Bedtime, 4 tabs at bedtime for 1 week then 5 tabs at bedtime thereafter , # 150 tab, 2 Refill(s), Pharmacy: [facility] diclofenac sodium 75 mg=1 Active [facility] 75 mg oral enteric tab, PO, 017 Neuro coated, BID, PRN delayed-release Pain Score tablet 7-10, # 60 tab, 2 Refill(s), Pharmacy: [facility] Cyclobenzaprine 10 mg=1 Active [facility] hydrochloride 10 tab, PO, 017 Neuro MG Oral Tablet BID, # 60 [Flexeril] tab, 2 Refill(s), Pharmacy: [facility] Sodium Chloride 4.2 mL, Inactive [facility] Route: 017 Neuro EPIDURAL, Dosing Weight 141.364, kg, ONCE, (Preservat liliana Free), Start date: 04/25/17 8:50:00 COFFEE BREWER, Stop date: 04/25/17 8:50:00 COFFEE BREWER Lidocaine 3 mL, Inactive [facility] Hydrochloride 10 Route: 017 Neuro MG/ML Injectable SUB-Q, Solution Dosing Weight 141.364, kg, ONCE, (Preservat liliana Free), Start date: 04/25/17 8:50:00 COFFEE BREWER, Stop date: 04/25/17 8:50:00 COFFEE BREWER Omnipaque 300 2 mL, Inactive [facility] Route: 017 Neuro EPIDURAL, Dosing Weight 141.364, kg, ONCE, (Preservat liliana Free), Start date: 04/25/17 8:50:00 COFFEE BREWER, Stop date: 04/25/17 8:50:00 COFFEE BREWER Dexamethasone 8 mg, Inactive [facility] Route: 017 Neuro EPIDURAL, ONCE, Dosing Weight 141.364, kg, (Preservat liliana Free), Start date: 04/25/17 8:50:00 COFFEE BREWER, Stop date: 04/25/17 8:50:00 COFFEE BREWER Bupivacaine 2 mL, Inactive [facility] Hydrochloride 2.5 Route: 017 Neuro MG/ML Injectable EPIDURAL, Solution Dosing Weight 141.364, kg, ONCE, (Preservat liliana Free), Start date: 04/25/17 8:50:00 COFFEE BREWER, Stop date: 04/25/17 8:50:00 COFFEE BREWER Allergies, Adverse Reactions, Alerts Substance Category Reaction Severity Reaction Status Date Comments Source type Reported Immunizations Immunization Date Given Site Status Last Updated Comments Source Results Order Name Results Value Reference Date Interpretation Comments Source Range HEMATOLOGY PTT 29.4 s 22.9 - 04/29 [facility] 35.8 /2016 [facility] [place] HEMATOLOGY PT 12.8 s 12.0 - 04/29 [facility] 14.7 /2016 [facility] [place] HEMATOLOGY INR 0.96 0.85 - 04/29 [facility] 1.17 [facility] [place] CHEM PANEL eGFR 95 04/29 Result Comment: The eGFR is calculated using the CKD-EPI formula. In most young, healthy individuals the eGFR will be >90 mL/ min/1.73m2. The eGFR declines with age. An eGFR of 60-89 may be normal in [facility] mL/min/1.73 /2017 some populations, particularly the elderly, for whom the CKD-EPI formula has not been extensively validated. Use of the eGFR is not recommended in the following populations: [address] Individuals with unstable creatinine concentrations, including [...] PANEL Creatinine 0.92 mg/dL 0.50 - 04/29 [facility] Lvl 1.40 /2016 [facility] [place] CHEM PANEL BUN 21 mg/dL 7 - 22 04/29 [facility] [place] HEMATOLOGY MCV 84.7 fL 80.0 - 04/29 [facility] 94.0 [facility] [place] HEMATOLOGY Hct 41.3 % 42.0 - 04/29 [facility] 54.0 [facility] [place] HEMATOLOGY MCH 27.9 pg 27.0 - 04/29 [facility] 31.0 [facility] [place] HEMATOLOGY MCHC 32.9 g/dL 32.0 - 04/29 [facility] 36.0 [facility] [place] HEMATOLOGY WBC 7.2 K/CMM 3.7 - 10.4 04/29 [facility] [place] HEMATOLOGY RBC 4.87 M/CMM 4.70 - 04/29 [facility] 6.10 [facility] [place] HEMATOLOGY Hgb 13.6 g/dL 14.0 - 04/29 [facility] 18.0 [facility] [place] HEMATOLOGY RDW 16.1 % 11.5 - 04/29 [facility] 14.5 [facility] [place] HEMATOLOGY Platelet 239 K/CMM 133 - 450 04/29 [facility] [place] HEMATOLOGY MPV 8.0 fL 7.4 - 10.4 04/29 [facility] [place] Spine Spine EXAM: CT MYELOGRAM LUMBAR SPINE 04/29 - [facility] lumbar lumbar - Medical myelogram myelogram EXAM: CT MYELOGRAM THORACIC SPINE This report was dictated by a Microfilm Clerk/Fellow. I have personally reviewed the images as [...] EXAM: CT MYELOGRAM LUMBAR SPINE 04/29 - [facility] thoracic thoracic /2017 - Medical myelogram myelogram EXAM: CT MYELOGRAM THORACIC SPINE This report was dictated by a Microfilm Clerk/Fellow. I have personally reviewed the images as [...] EXAM: CT MYELOGRAM LUMBAR SPINE 04/29 - [facility] /2017 - Medical myelogram myelogram EXAM: CT MYELOGRAM THORACIC SPINE This report was dictated by a Microfilm Clerk/Fellow. I have personally reviewed the images as [...] EXAM: CT MYELOGRAM LUMBAR SPINE 04/29 - [facility] thoracic thoracic /2017 - Medical myelogram myelogram EXAM: CT MYELOGRAM THORACIC SPINE This report was dictated by a Microfilm Clerk/Fellow. I have personally reviewed the images as [...] XR ENTIRE SPINE 2 VIEWS 03/19 - [facility] (or entire) (or entire) /2016 - [...] Date Comments Source Height 177.8 cm 06/05/2017 [facility] Weight 146.818 06/05/2017 [facility] BMI Calculated 46.44 06/05/2017 [facility] Systolic (mm Hg) 130 06[facility]05/2017 [facility] Diastolic (mm Hg) 83 06/05/2017 [facility] Temperature Oral (F) 99.3 F 06/05/2017 [facility] Heart Rate 70 06/05/2017 [facility] BMI Calculated 44.72 04/29/2017 [facility] Weight 141.36 04/29/2017 [facility] Height 177.8 cm 04/29/2017 [facility] Heart Rate 66 04/29/2017 [facility] Respitory Rate 20 04/29/2017 [facility] Systolic (mm Hg) 140 04/29/2017 [facility] Diastolic (mm Hg) 73 04/29/2017 [facility] Encounters Location Location Encounter Encounter Reason Attending ADM DC Status Source Details Type Number For Provider Date Date Visit Outpatient [id number] VIOLA 08/19 [facility] [place] Outpatient [id number] MANJINDER KOWALSKI 09/[address] [facility] [place] [facility] [id number] MANJINDER KOWALSKI 03/[address] [facility] [place] Outpatient [id number] CONY 03/19 [facility] Outpatient [id number] Manjinder Kowalski 03/19 03/20 [facility] /[address] [facility] Outpatient [id number] DULCE LAU 04/04 Active [facility] [place] [facility] Spine Phone [id number] 04/24 04/26 [facility] /2016 [facility] Phone [id number] 04/24 04/26 [facility] Message /2016 [facility] Outpatient [id number] CONY 04/25 [facility] [place] [facility] Outpatient [id number] Harjeet 04/25 04/26 [facility] [facility]2016 [facility] [id number] Dulce Lau 04/29 04/30 [facility] /[address] [facility] Spine Phone [id number] 04/30 05/02 [facility] Message /2016 [facility]patient [id number] DULCE LAU 06/05 Active [facility] [place] [facility] Outpatient [id number] Harjeet 06/05 06/06 [facility] /2017 [facility] Phone [id number] 06/06 06/08 [facility] Message /2017 [facility] [id number] JOHN QUINN 12/04 [facility] [place] [facility] Ambulatory [id number] Harjeet 12/04 12/04 [facility] Pre-Reg /2017 Neuro [facility] Procedures Procedure Code Date Perfomer Comments Source Myelography via [id number] 04/29/2017 [facility] lumbar injection, [facility] including Center radiological supervision and interpretation; thoracic Myelography via [id number] 04/29/2017 [facility] lumbar [facility] including [place] radiological supervision and interpretation; lumbosacral NJX INTERLAMINAR 04/25/2017 [facility] LMBR/SA Ear operations [id number] [facility] Lumbar epidural [id number] [facility] Lumbar epidural [id number] [facility] steroid [facility] Nose operation [id number] [facility] Operation [id number] [facility] Ear operations [id number] [facility] Lumbar epidural [id number] [facility] injection Lumbar epidural [id number] [facility] steroid injection Nose operation [id number] [facility] Operation [id number] [facility]
--- OUTSIDE RECORDS SUMMARY | 2018-08-30 08:25 | XMS REPORT ---
:1965 Author Organization [facility] Address [address] [place] [address] [address] [place] [address] Care Team Providers Name Role Phone VIANNEYMADI Unavailable Unavailable TAMMY BETANCOURT Unavailable Unavailable Problems This patient has no known problems. Allergies, Adverse Reactions, Alerts This patient has no known allergies or adverse reactions. Medications This patient has no known medications. Results Test Description Test Time Test Comments Text Results Atomic Results Result Comments [facility] 2017-01-28 05:57:00 Test Item Value Reference Range [...] EGFR if Non- >60 mL/min/1.73m\\S\\2 Estimated Glomerular Syrian (test Filtration Rate (eGFR) code=EGFRNA) Reference Intervals [...] of chronic kidney failure. CBC WITH AUTO [id number] 05:42:00 Test Item Value Reference Range Comments [...] 1.0-3.0 IG% (test code=IG%) 1.0 % 0.0-0.4 [id number] 05:53:00 Test Item Value Reference Range Comments [...] mL/min/1.73m\\S\\2 EGFR if Non- >60 Estimated Glomerular Syrian (test mL/min/1.73m\\S\\2 Filtration Rate (eGFR) code=EGFRNA) Reference [...] of chronic kidney failure. CBC WITH AUTO [id number] 05:27:00 Test Item Value Reference Range Comments [...] 1.0-3.0 IG% (test code=IG%) 1.7 % 0.0-0.4 [id number] 04:36:00 Test Item Value Reference Range Comments [...] mL/min/1.73m\\S\\2 EGFR if Non- >60 Estimated Glomerular Syrian (test mL/min/1.73m\\S\\2 Filtration Rate (eGFR) code=EGFRNA) Reference [...] of chronic kidney failure. CBC WITH AUTO [id number] 04:14:00 Test Item Value Reference Range Comments [...] 1.0-3.0 IG% (test code=IG%) 1.9 % 0.0-0.4 [id number] 04:40:00 Test Item Value Reference Range Comments [...] mL/min/1.73m\\S\\2 EGFR if Non- >60 Estimated Glomerular Syrian (test mL/min/1.73m\\S\\2 Filtration Rate (eGFR) code=EGFRNA) Reference [...] of chronic kidney failure. CBC WITH AUTO [id number] 04:09:00 Test Item Value Reference Range Comments [...] IG% (test code=IG%) 2.4 % 0.0-0.4 CULTURE, [id number] 06:50:00To start 15mins after 1st cultureSpecimen: BloodCollected: 01/18/2017 04:05 Status: Final Last Updated: 01/23/2017 06: 49 (1) To start 15mins after 1st culture Culture Result (Final) (Final ) No Growth After 5 DaysCULTURE, [id number] 06:50:00Specimen: BloodCollected: 01/18/2017 03:55 Status: Final Last Updated: 01/23/2017 06: 49 Culture Result (Final) (Final) No Growth After 5 DaysCBC WITH AUTO [id number] 04:31:00 Test Item Value Reference Range Comments [...] 1.0-3.0 IG% (test code=IG%) 3.4 % 0.0-0.4 [id number] 04:19:00 Test Item Value Reference Range Comments [...] mL/min/1.73m\\S\\2 EGFR if Non- >60 Estimated Glomerular Syrian (test mL/min/1.73m\\S\\2 Filtration Rate (eGFR) code=EGFRNA) Reference [...] of chronic kidney failure. CBC WITH AUTO [id number] 04:57:00 Test Item Value Reference Range Comments [...] (test code=IG%) 4.0 % 0.0-0.4 CBC AUTO [id number] 04:35:00 Test Item Value Reference Range Comments [...] mL/min/1.73m\\S\\2 EGFR if Non- >60 Estimated Glomerular Syrian (test mL/min/1.73m\\S\\2 Filtration Rate (eGFR) code=EGFRNA) Reference [...] of chronic kidney failure. CBC WITH AUTO [id number] 05:01:00 Test Item Value Reference Range Comments [...] (test code=IG%) 4.5 % 0.0-0.4 CBC AUTO [id number] 04:56:00 Test Item Value Reference Range Comments [...] mL/min/1.73m\\S\\2 EGFR if Non- >60 Estimated Glomerular Syrian (test mL/min/1.73m\\S\\2 Filtration Rate (eGFR) code=EGFRNA) Reference [...] of chronic kidney failure. CBC WITH AUTO [id number] 05:57:00 Test Item Value Reference Range Comments [...] 1.0-3.0 IG% (test code=IG%) 4.8 % 0.0-0.4 [id number] 05:41:00 Test Item Value Reference Range Comments Magnesium (test code=MG) 2.0 mg/dl 1.6-2.3 [id number] 05:41:00 Test Item Value Reference Range Comments [...] mL/min/1.73m\\S\\2 EGFR if Non- >60 Estimated Glomerular Syrian (test mL/min/1.73m\\S\\2 Filtration Rate (eGFR) code=EGFRNA) Reference [...] management of chronic kidney failure. LACTIC ACID [id number] 06:43:00 Test Item Value Reference Range Comments LACTATE (test code=LAC) 0.9 mmol/l 0.7-2.0 GLYCOSALATED [id number] 05:41:00 Test Item Value Reference Range Comments Hemoglobin A1C (test 9.06 % 4.3-6.0 code=GLYCO) Mean Plasma Glucose (test 245 mg/dl 90-180 WHEN TEST RESULTS FOR A1C code=MPG) EXCEED 14.0, THE LINEAR LIMIT OF THE INSTRUMENT, THE CALCULATED RESULT FOR THE MEAN GLUCOSE IS NOT RELIABLE. CORONARY [id number] 05:09:00 Test Item Value Reference Range Comments [...] Average vLDL (test code=VLDL) 37 mg/dl 30-60 [id number] 04:51:00 Test Item Value Reference Range Comments Magnesium (test code=MG) 2.1 mg/dl 1.6-2.3 [id number] 04:51:00 Test Item Value Reference Range Comments CPK (test code=CPK) 93 U/L 30-135 LIPASE, [id number] 04:43:00 Test Item Value Reference Range Comments Lipase (test code=LIPA) 116 U/L 8-223 [id number] 04:43:00 Test Item Value Reference Range Comments [...] mL/min/1.73m\\S\\2 EGFR if Non- >60 Estimated Glomerular Syrian (test mL/min/1.73m\\S\\2 Filtration Rate (eGFR) code=EGFRNA) Reference [...]
[2018-08-30] MEDS ORDERED: OSELTAMIVIR 75 MG CAP ONE (08:53)
[2018-08-30] MEDS ORDERED: AZITHROMYCIN 250 MG TAB ONE (08:54)
--- NOTE | 2018-08-30 09:42 | ER ---
Nurse's Notes [facility] Name: Nicola Harvey Age: 53 yrs Sex: Male : 1965 Arrival Date: 08/30/2018 Time: 08:23 Bed 6 Private MD: Diagnosis: Fever, unspecified;Acute upper respiratory infection, unspecified;Type 1 diabetes mellitus Presentation: 08/30 08:28 Presenting complaint: Patient states: Fever, chills, blurry vision since this morning. la1 Cough for 2 weeks, multiple family members ill with similar symptoms, took ibuprofen at 0430, does not take tylenol because it makes temperature go higher. Transition of care: patient was not received from another setting of care. Onset of symptoms was August 30, 2018. Risk Assessment: Do you want to hurt yourself or someone else? Patient reports no desire to harm self or others. Initial Sepsis Screen:. Care prior to arrival: None. 08:28 Method Of Arrival: Ambulatory la1 08:28 Acuity: ANGE 3 la1 Historical: - Allergies: 08:29 No Known Allergies; la1 - PMHx: 08:29 Diabetes - IDDM; Hyperlipidemia; Hypertension; lower back pain with injecitons; la1 - Immunization history:: Adult Immunizations up to date. - Social history:: Smoking status: Patient/guardian denies using tobacco. - Ebola Screening: : No symptoms or risks identified at this time. Screenin:45 Abuse screen: Denies threats or abuse. Nutritional screening: No deficits noted. la1 Tuberculosis screening: No symptoms or risk factors identified. Fall Risk None identified. Assessment: 08:44 General: Appears in no apparent distress. Behavior is calm, cooperative. Pain: Denies la1 pain. Neuro: Level of Consciousness is awake, alert, obeys commands, Oriented to person, place, time, situation, Moves all extremities. Full function Gait is steady, Speech is normal, Facial symmetry appears normal, Pupils are PERRLA. Cardiovascular: Heart tones S1 S2 present Capillary refill < 3 seconds Patient's skin is warm and dry. Respiratory: Airway is patent Respiratory effort is even, unlabored, Respiratory pattern is regular, symmetrical, Breath sounds are clear bilaterally. GI: Abdomen is non-distended, obese, Patient currently denies diarrhea, nausea, vomiting. : No signs and/or symptoms were reported regarding the genitourinary system. Vital Signs: 08:29 BP 147 / 66; Pulse 111; Resp 20; Temp 101.0; Pulse Ox 96% on R/A; Weight 149.23 kg; la1 Height 5 ft. 9 in. (175.26 cm); 10:09 BP 136 / 74; Pulse 98; Resp 19; Temp 101.; Pulse Ox 98% on R/A; la1 08:29 Body Mass Index 48.58 (149.23 kg, 175.26 cm) la1 ED Course: 08:23 Patient arrived in ED. as 08:28 Triage completed. la1 08:29 Arm band placed on left wrist. la1 08:31 Weston Carty MD is Attending Physician. leigh 08:44 Jose G Blackwood, KRUNAL is Primary Nurse. la1 08:45 Call light in reach. Side rails up X 1. la1 08:45 Flu and/or RSV swab sent to lab. la1 09:28 Chest Pa And Lat (2 Views) XRAY In Process Unspecified. EDMS 10:10 No provider procedures requiring assistance completed. Patient did not have IV access la1 during this emergency room visit. Administered Medications: 08:46 Drug: Zithromax 500 mg Route: PO; sg 10:08 Follow up: Response: Medication administered at discharge. la1 08:46 Drug: Tamiflu 75 mg Route: PO; sg 10:08 Follow up: Response: No adverse reaction la1 10:08 Drug: Tylenol 1000 mg Route: PO; la1 10:09 Follow up: Response: Medication administered at discharge. la1 Outcome: 09:41 Discharge ordered by . leigh 10:10 Discharged to home ambulatory. la1 10:10 Condition: stable 10:10 Discharge instructions given to patient, Instructed on discharge instructions, follow up and referral plans. medication usage, Demonstrated understanding of instructions, follow-up care, medications, Prescriptions given X 2. 10:10 Patient left the ED. la1 Signatures: Dispatcher [employer] EDMS Leonid Sosa, RN RN Weston Watts MD MD cha Martinez, Amelia as Jose G Blackwood RN RN la1 Corrections: (The following items were deleted from the chart) 08:30 08:28 Presenting complaint: Patient states: Fever, chills, blurry vision since this la1 morning. Cough for 2 weeks, multiple family members ill with similar symptoms la1
--- NOTE | 2018-08-30 09:42 | EDPHYS ---
Physician Documentation [facility] Name: Nicola Harvey Age: 53 yrs Sex: Male : 1965 Arrival Date: 08/30/2018 Time: 08:23 Bed 6 Private MD: ED Physician Weston Carty HPI: 08/30 08:38 This 53 yrs old Male presents to ER via Ambulatory with complaints of leigh Dizziness, Blurred Vision. 08:38 The patient presents with dizziness, generalized weakness. Onset: The symptoms/episode leigh began/occurred 2 day(s) ago. Context: occurred at an unknown location. Modifying factors: The symptoms are alleviated by nothing. Associated signs and symptoms: The patient has no apparent associated signs or symptoms. Patient's baseline: Neuro:. Historical: - Allergies: 08:29 No Known Allergies; la1 - PMHx: 08:29 Diabetes - IDDM; Hyperlipidemia; Hypertension; lower back pain with injecitons; la1 - Immunization history:: Adult Immunizations up to date. - Social history:: Smoking status: Patient/guardian denies using tobacco. - Ebola Screening: : No symptoms or risks identified at this time. ROS: 08:39 Eyes: Negative for injury, pain, redness, and discharge, ENT: Negative for injury, leigh pain, and discharge, Neck: Negative for injury, pain, and swelling, Cardiovascular: Negative for chest pain, palpitations, and edema, Abdomen/GI: Negative for abdominal pain, nausea, vomiting, diarrhea, and constipation, Back: Negative for injury and pain, : Negative for injury, bleeding, discharge, and swelling, MS/Extremity: Negative for injury and deformity, Skin: Negative for injury, rash, and discoloration, Neuro: Negative for headache, weakness, numbness, tingling, and seizure, Psych: Negative for depression, anxiety, suicide ideation, homicidal ideation, and hallucinations, Allergy/Immunology: Negative for hives, rash, and allergies, Endocrine: Negative for neck swelling, polydipsia, polyuria, polyphagia, and marked weight changes, Hematologic/Lymphatic: Negative for swollen nodes, abnormal bleeding, and unusual bruising. 08:39 Constitutional: Positive for chills, fatigue, fever. 08:39 Respiratory: Positive for cough, with green sputum. Exam: 08:39 Constitutional: This is a well developed, well nourished patient who is awake, alert, leigh and in no acute distress. Head/Face: Normocephalic, atraumatic. Eyes: Pupils equal round and reactive to light, extra-ocular motions intact. Lids and lashes normal. Conjunctiva and sclera are non-icteric and not injected. Cornea within normal limits. Periorbital areas with no swelling, redness, or edema. ENT: Nares patent. No nasal discharge, no septal abnormalities noted. Tympanic membranes are normal and external auditory canals are clear. Oropharynx with no redness, swelling, or masses, exudates, or evidence of obstruction, uvula midline. Mucous membranes moist. Neck: Trachea midline, no thyromegaly or masses palpated, and no cervical lymphadenopathy. Supple, full range of motion without nuchal rigidity, or vertebral point tenderness. No Meningismus. Chest/axilla: Normal chest wall appearance and motion. Nontender with no deformity. No lesions are appreciated. Abdomen/GI: Soft, non-tender, with normal bowel sounds. No distension or tympany. No guarding or rebound. No evidence of tenderness throughout. Back: No spinal tenderness. No costovertebral tenderness. Full range of motion. Male : Normal genitalia with no discharge or lesions. Skin: Warm, dry with normal turgor. Normal color with no rashes, no lesions, and no evidence of cellulitis. MS/ Extremity: Pulses equal, no cyanosis. Neurovascular intact. Full, normal range of motion. Neuro: Awake and alert, GCS 15, oriented to person, place, time, and situation. Cranial nerves II-XII grossly intact. Motor strength 5/5 in all extremities. Sensory grossly intact. Cerebellar exam normal. Normal gait. Psych: Awake, alert, with orientation to person, place and time. Behavior, mood, and affect are within normal limits. 08:39 Cardiovascular: Rate: tachycardic, Rhythm: regular, Pulses: no pulse deficits are appreciated, Heart sounds: normal, Edema: is not appreciated, JVD: is not appreciated. Vital Signs: 08:29 BP 147 / 66; Pulse 111; Resp 20; Temp 101.0; Pulse Ox 96% on R/A; Weight 149.23 kg; la1 Height 5 ft. 9 in. (175.26 cm); 10:09 BP 136 / 74; Pulse 98; Resp 19; Temp 101.; Pulse Ox 98% on R/A; la1 08:29 Body Mass Index 48.58 (149.23 kg, 175.26 cm) [facility] MDM: 08:34 Patient medically screened. [facility] 08:41 Data reviewed: vital signs, nurses notes, lab test result(s), radiologic studies. [facility] 08/30 08:38 Order name: Influenza Screen (a \T\ B) [facility] 08/30 08:39 Order name: Influenza Screen (A ; Complete Time: 09:37 EDMS 08/30 08:38 Order name: Chest Pa And Lat (2 Views) XRAY [facility] 08/30 09:42 Order name: Urine Culture [facility] 08/30 10:02 Order name: Urine Dipstick--Ancillary (enter results) 08/30 08:45 Order name: EKG; Complete Time: 08:45 [facility] 08/30 08:45 Order name: EKG - Nurse/Tech; Complete Time: 08:58 [facility] 08/30 08:45 Order name: Blood Glucose Level; Complete Time: 08:49 [facility] 08/30 09:42 Order name: Urine Dipstick-Ancillary (obtain specimen); Complete Time: 10:08 [facility] Administered Medications: 08:46 Drug: Zithromax 500 mg Route: PO; sg 10:08 Follow up: Response: Medication administered at discharge. [facility] 08:46 Drug: Tamiflu 75 mg Route: PO; sg 10:08 Follow up: Response: No adverse reaction ny1 10:08 Drug: Tylenol 1000 mg Route: PO; la1 10:09 Follow up: Response: Medication administered at discharge. [facility] Disposition: 08/30/18 09:41 Discharged to Home. Impression: Fever, unspecified, Acute upper respiratory infection, unspecified, Type 1 diabetes mellitus. - Condition is Stable. - Discharge Instructions: Type 1 Diabetes Mellitus, Diagnosis, Adult, Fever, Adult, Cough, Adult, Mylc-fy-Vgta, Cough, Adult, Fever, Adult, Zywr-wf-Bkjh, Type 1 Diabetes Mellitus, Self Care, Adult, Type 1 Diabetes Mellitus, Diagnosis, Adult, Sbbe-qm-Jfsa, Type 1 Diabetes Mellitus, Self Care, Adult, Kjrd-hz-Nqbt. - Prescriptions for Tamiflu 75 mg Oral Capsule - take 1 tablet by ORAL route every 12 hours for 5 days; 5 tablet. Zithromax 500 mg Oral Tablet - take 1 tablet by ORAL route once daily for 5 days; 5 tablet. - Medication Reconciliation Form, Thank You Letter, Antibiotic Education, Prescription Opioid Use, Work release form form. - Follow up: Private Physician; When: 2 - 3 days; Reason: Recheck today's complaints, Continuance of care, Re-evaluation by your physician. - Problem is new. - Symptoms have improved. Signatures: Dispatcher [employer] EDLeonid Almaguer RN RN Weston Watts MD MD cha Attema, Lee, RN RN la1 Corrections: (The following items were deleted from the chart) 10:10 09:41 08/30/2018 09:41 Discharged to Home. Impression: Fever, unspecified; Acute upper la1 respiratory infection, unspecified; Type 1 diabetes mellitus. Condition is Stable. Discharge Instructions: Fever, Adult, Cough, Adult, Tofg-qf-Plqi, Cough, Adult, Fever, Adult, Acfi-hn-Ebcq, Type 1 Diabetes Mellitus, Diagnosis, Adult, Type 1 Diabetes Mellitus, Self Care, Adult, Type 1 Diabetes Mellitus, Diagnosis, Adult, Bsvm-sj-Cvij, Type 1 Diabetes Mellitus, Self Care, Adult, Iegx-qc-Hdur. Prescriptions for Tamiflu 75 mg Oral Capsule - take 1 tablet by ORAL route every 12 hours for 5 days; 5 tablet, Zithromax 500 mg Oral Tablet - take 1 tablet by ORAL route once daily for 5 days; 5 tablet. and Forms are Medication Reconciliation Form, Thank You Letter, Antibiotic Education, Prescription Opioid Use. Follow up: Private Physician; When: 2 - 3 days; Reason: Recheck today's complaints, Continuance of care, Re-evaluation by your physician. Problem is new. Symptoms have improved. leigh
[2018-08-30 10:16] VITALS: BP 136/74; TEMP 101; O2SAT 98
[2018-08-30] MEDS ORDERED: ACETAMINOPHEN 500 MG TAB ONE (10:17)
--- NOTE | 2018-08-30 11:32 | RAD REPORT ---
EXAM DESCRIPTION: RAD - Chest Pa And Lat (2 Views) - 08/30/2018 9:34 am CLINICAL HISTORY: Cough;Congestion Chest pain. COMPARISON: Chest Single View dated 06/11/2018; Chest Pa And Lat (2 Views) dated 04/13/2018; Chest Pa And Lat (2 Views) dated 02/04/2018; Chest Single View dated 09/07/2017 FINDINGS: Interstitial lung markings are mildly prominent. This is a nonspecific finding. The heart is normal in size. No displaced fractures. Small hiatal hernia. IMPRESSION: Mild interstitial prominence likely representing underlying viral pneumonitis or bronchi tis.
[2018-08-30 12:27] LABS: Urine Blood TRACE (NEG); Urine Glucose NEGATIVE (NEG); Urine Protein 2+ (NEG); Urine Specific Gravity 1.025 (1.005-1.030)
--- NOTE | 2018-09-01 11:38 | EKG ---
Test Date: 2018-08-30 Test Time: 08:53:23 [employer] Worker: NIRALI MEASUREMENT RESULTS: Intervals: Rate: 95 ME: 140 QRSD: 104 QT: 328 QTc: 412 [place]: P: 35 ME: 140 QRS: 77 T: 34 INTERPRETIVE STATEMENTS: Normal sinus rhythm Incomplete right bundle branch block Borderline ECG Compared to ECG 06/11/2018 02:56:33 Ventricular premature complex(es) no longer present Electronically Signed On 08-31-18 10:53:00 CDT by Yobani Tavera
== END 2018-08-30 10:10 | disposition home or self-care (01) ==
LOC: ER 08:20
DX: J06.9 Acute upper respiratory infection, unspecified (principal); E10.9 Type 1 diabetes mellitus without complications; I10 Essential (primary) hypertension; E78.5 Hyperlipidemia, unspecified; Z79.4 Long term (current) use of insulin
CPT/HCPCS: 71046; 81003; 82962; 87086; 87088; 87804; 93005; 99284

== ENCOUNTER 2019-04-08 17:35 | Emergency (ER) | payer OTHER, SELFPAY ==
--- OUTSIDE RECORDS SUMMARY | 2019-04-08 17:39 | XMS REPORT ---
:1965 [facility] Address [address] [place] [address] [address] [place] [address] Care Team Providers Name Role Phone VIANNEYMADI Unavailable Unavailable TAMMY BETANCOURT Unavailable Unavailable Problems This patient has no known problems. Allergies, Adverse Reactions, Alerts This patient has no known allergies or adverse reactions. Medications This patient has no known medications. Results Test Description Test Time Test Comments Text Results Atomic Results Result Comments [facility] 2017-01-28 05:57:00 Test Item Value Reference Range [...] EGFR if Non- >60 mL/min/1.73m\\S\\2 Estimated Glomerular Australian (test Filtration Rate (eGFR) code=EGFRNA) Reference Intervals [...] of chronic kidney failure. CBC WITH AUTO [id number] 05:42:00 Test Item Value Reference Range Comments [...] 1.0-3.0 IG% (test code=IG%) 1.0 % 0.0-0.4 [id number] 05:53:00 Test Item Value Reference Range Comments [...] mL/min/1.73m\\S\\2 EGFR if Non- >60 Estimated Glomerular Australian (test mL/min/1.73m\\S\\2 Filtration Rate (eGFR) code=EGFRNA) Reference [...] of chronic kidney failure. CBC WITH AUTO [id number] 05:27:00 Test Item Value Reference Range Comments [...] 1.0-3.0 IG% (test code=IG%) 1.7 % 0.0-0.4 [id number] 04:36:00 Test Item Value Reference Range Comments [...] mL/min/1.73m\\S\\2 EGFR if Non- >60 Estimated Glomerular Australian (test mL/min/1.73m\\S\\2 Filtration Rate (eGFR) code=EGFRNA) Reference [...] of chronic kidney failure. CBC WITH AUTO [id number] 04:14:00 Test Item Value Reference Range Comments [...] 1.0-3.0 IG% (test code=IG%) 1.9 % 0.0-0.4 [id number] 04:40:00 Test Item Value Reference Range Comments [...] mL/min/1.73m\\S\\2 EGFR if Non- >60 Estimated Glomerular Australian (test mL/min/1.73m\\S\\2 Filtration Rate (eGFR) code=EGFRNA) Reference [...] of chronic kidney failure. CBC WITH AUTO [id number] 04:09:00 Test Item Value Reference Range Comments [...] IG% (test code=IG%) 2.4 % 0.0-0.4 CULTURE, [id number] 06:50:00To start 15mins after 1st cultureSpecimen: BloodCollected: 01/18/2017 04:05 Status: Final Last Updated: 01/23/2017 06: 49 (1) To start 15mins after 1st culture Culture Result (Final) (Final ) No Growth After 5 DaysCULTURE, [id number] 06:50:00Specimen: BloodCollected: 01/18/2017 03:55 Status: Final Last Updated: 01/23/2017 06: 49 Culture Result (Final) (Final) No Growth After 5 DaysCBC WITH AUTO [id number] 04:31:00 Test Item Value Reference Range Comments [...] 1.0-3.0 IG% (test code=IG%) 3.4 % 0.0-0.4 [id number] 04:19:00 Test Item Value Reference Range Comments [...] mL/min/1.73m\\S\\2 EGFR if Non- >60 Estimated Glomerular Australian (test mL/min/1.73m\\S\\2 Filtration Rate (eGFR) code=EGFRNA) Reference [...] of chronic kidney failure. CBC WITH AUTO [id number] 04:57:00 Test Item Value Reference Range Comments [...] (test code=IG%) 4.0 % 0.0-0.4 CBC AUTO [id number] 04:35:00 Test Item Value Reference Range Comments [...] mL/min/1.73m\\S\\2 EGFR if Non- >60 Estimated Glomerular Australian (test mL/min/1.73m\\S\\2 Filtration Rate (eGFR) code=EGFRNA) Reference [...] of chronic kidney failure. CBC WITH AUTO [id number] 05:01:00 Test Item Value Reference Range Comments [...] (test code=IG%) 4.5 % 0.0-0.4 CBC AUTO [id number] 04:56:00 Test Item Value Reference Range Comments [...] mL/min/1.73m\\S\\2 EGFR if Non- >60 Estimated Glomerular Australian (test mL/min/1.73m\\S\\2 Filtration Rate (eGFR) code=EGFRNA) Reference [...] of chronic kidney failure. CBC WITH AUTO [id number] 05:57:00 Test Item Value Reference Range Comments [...] 1.0-3.0 IG% (test code=IG%) 4.8 % 0.0-0.4 [id number] 05:41:00 Test Item Value Reference Range Comments Magnesium (test code=MG) 2.0 mg/dl 1.6-2.3 [id number] 05:41:00 Test Item Value Reference Range Comments [...] mL/min/1.73m\\S\\2 EGFR if Non- >60 Estimated Glomerular Australian (test mL/min/1.73m\\S\\2 Filtration Rate (eGFR) code=EGFRNA) Reference [...] management of chronic kidney failure. LACTIC ACID [id number] 06:43:00 Test Item Value Reference Range Comments LACTATE (test code=LAC) 0.9 mmol/l 0.7-2.0 GLYCOSALATED [id number] 05:41:00 Test Item Value Reference Range Comments Hemoglobin A1C (test 9.06 % 4.3-6.0 code=GLYCO) Mean Plasma Glucose (test 245 mg/dl 90-180 WHEN TEST RESULTS FOR A1C code=MPG) EXCEED 14.0, THE LINEAR LIMIT OF THE INSTRUMENT, THE CALCULATED RESULT FOR THE MEAN GLUCOSE IS NOT RELIABLE. CORONARY [id number] 05:09:00 Test Item Value Reference Range Comments [...] Average vLDL (test code=VLDL) 37 mg/dl 30-60 [id number] 04:51:00 Test Item Value Reference Range Comments Magnesium (test code=MG) 2.1 mg/dl 1.6-2.3 [id number] 04:51:00 Test Item Value Reference Range Comments CPK (test code=CPK) 93 U/L 30-135 LIPASE, [id number] 04:43:00 Test Item Value Reference Range Comments Lipase (test code=LIPA) 116 U/L 8-223 [id number] 04:43:00 Test Item Value Reference Range Comments [...] mL/min/1.73m\\S\\2 EGFR if Non- >60 Estimated Glomerular Australian (test mL/min/1.73m\\S\\2 Filtration Rate (eGFR) code=EGFRNA) Reference [...]
--- OUTSIDE RECORDS SUMMARY | 2019-04-08 17:40 | XMS REPORT | Summary of Care ---
:1965 Author Organization [facility] Address [address] [place] [address] Care Team Providers Name Role Phone McknightHarjeet Rody Primary Care Provider Reason for Visit Reason Comments Rx Concern/Question Encounter Details Date Type Department Care Team Description 02/10/2019 Telephone [facility] Anupam Atkins MD Rx Concern/Question Endocrinology- [address] Professional Office [address] [address] [address] [place] [address] [phone] Allergies No Known Allergiesdocumented as of this encounter (statuses as of 02/10/2019) Medications Medication Sig Dispensed Refills Start Date End Date Status metoprolol tartrate 50 mg Take 50 mg by 0 Active tablet mouth 2 (two) times daily. lisinopril 40 mg tablet Take 40 mg by 0 Active mouth daily. amLODIPine 5 mg tablet Take 5 mg by 0 Active mouth daily. exenatide microspheres inject 2 mg 2 mL 3 04/08/2018 Active (BYDUREON BCISE) 2 under the mg/0.85 mL skin weekly. AtInIndications: Uncontrolled type 2 diabetes mellitus with hyperglycemia hydroCHLOROthiazide 25 mg Take 1 tablet 30 tablet 3 05/08/2018 Active tabletIndications: by mouth Essential hypertension daily. traMADOL 50 mg Take 1 tablet 14 tablet 0 06/26/2018 Active tabletIndications: by mouth 2 Cellulitis of right lower (two) times extremity daily as needed for Pain (scale 4-6) or Pain (scale 7-10). insulin regular human 500 inject 60 15 mL 3 10/20/2018 Active unit/mL Units under injectionIndications: the skin 3 Uncontrolled type 2 (three) times diabetes mellitus with daily before hyperglycemia meals. E11. 65 insulin U-500 1 Each 3 100 Syringe 3 10/20/2018 Active syringe-needle 1/2 mL 31 (three) times gauge x 15/64" daily before SyrgIndications: meals. E11.65 Uncontrolled type 2 diabetes mellitus with hyperglycemia metformin ER 500 mg 24 hr Take 2 360 tablet 1 10/20/2018 Active tabletIndications: tablets by Uncontrolled type 2 mouth 2 (two) diabetes mellitus with times daily hyperglycemia with meals. glimepiride 4 mg Take 1 tablet 180 tablet 1 10/20/2018 Active tabletIndications: by mouth 2 Uncontrolled type 2 (two) times diabetes mellitus with daily with hyperglycemia meals. pravastatin 20 mg Take 1 tablet 90 tablet 1 10/20/2018 Active tabletIndications: Mixed by mouth at hyperlipidemia bedtime. Insulin Syringe-Needle Each 3 100 Syringe 3 11/25/2018 Active U-100 1 mL 31 gauge x (three) times 5/16 Syrg daily before meals. E11.65 documented as of this encounter (statuses as of 02/10/2019) Active Problems Problem Noted Date Cellulitis of right lower extremity 06/25/2018 Cellulitis of right lower leg 05/25/2018 Morbid obesity with body mass index of 40.0-49.9 05/25/2018 documented as of this encounter (statuses as of 02/10/2019) Immunizations Name Administration Dates Next Due Influenza Virus Vaccine Quad .5 mL IM 6+ MO 06/26/2018 documented as of this encounter Social History Tobacco Use Types Packs/Day Years Used Date Never Smoker Smokeless Tobacco: Never Used Alcohol Use Drinks/Week oz/Week Comments No Sex Assigned at Date Recorded Not on file Job Start Date Occupation Industry Not on file Not on file Not on file Travel History Travel Start Travel End No recent travel history available. documented as of this encounter Last Filed Vital Signs Not on filedocumented in this encounter Plan of Treatment Date Type Specialty Care Team Description 02/23/2019 Office Visit Endocrinology Diabetes & AtkinsAnupam MD Metabolism [address] [place] [address] [phone] Health Maintenance Due Date Last Done Comments HEPATITIS C (HCV) SCREEN 1965 PNEUMOCOCCAL 0-64 YEARS COMBINED 1971 SERIES (1 of 1 - PPSV23) EYE EXAM 1975 LDL-C 1975 URINE MICROALBUMIN 1975 DTaP,Tdap,and Td Vaccines (1 - 01/30/1984 Tdap) COLONOSCOPY 2015 Zoster Recombinant Vaccine 2015 (SHINGRIX) (1 of 2) INFLUENZA VACCINE (#1) 2019 06/26/2018 HgA1C 04/22/2019 10/20/2018, 05/27/2018, 04/08/2018 CREATININE (SERUM) 08/02/2019 08/01/2018, 06/26/2018, 06/25/2018, Additional history exists FOOT EXAM 10/21/2019 10/20/2018, 10/20/2018, 07/17/2018, Additional history exists documented as of this encounter Results Not on filedocumented in this encounter Insurance Payer Benefit Plan / Group Subscriber ID Effective Dates Phone Address Type [employer] [id number] 2018-Present PPO documented as of this encounter
--- OUTSIDE RECORDS SUMMARY | 2019-04-08 17:40 | XMS REPORT | Summary of Care ---
:1965 Author Organization [facility] - Health Address [address] [place] [address] Care Team Providers Name Role Phone Harjeet Mcknight Primary Care Provider Encounter Details Date Type Department Care Team Description 12/13/2018 Orders Only [facility] Doctor Unassigned, No [address] [facility] [place] [address] [address] [place] [address] Allergies No Known Allergiesdocumented as of this encounter (statuses as of 12/18/2018) Medications Medication Sig Dispensed Refills Start Date End Date Status metoprolol tartrate 50 mg Take 50 mg by 0 Active tablet mouth 2 (two) times daily. lisinopril 40 mg tablet Take 40 mg by 0 Active mouth daily. amLODIPine 5 mg tablet Take 5 mg by 0 Active mouth daily. exenatide microspheres inject 2 mg 2 mL 3 04/08/2018 Active (BYASHLYNRELINDA ALVES) 2 under the mg/0.85 mL skin weekly. [...] as of this encounter (statuses as of 12/18/2018) Active Problems Problem Noted Date Cellulitis of right lower extremity 06/25/2018 Cellulitis of right lower leg 05/25/2018 Morbid obesity with body mass index of 40.0-49.9 05/25/2018 documented as of this encounter (statuses as of 12/18/2018) Immunizations Name Administration Dates Next Due Influenza [...] Description 02/23/2019 Office Visit Endocrinology Diabetes & Atkins, MD Anupam Metabolism [address] [place], [place] [address] Health Maintenance Due Date Last Done Comments HEPATITIS C (HCV) SCREEN 1965 PNEUMOCOCCAL 0-64 YEARS COMBINED 1971 SERIES (1 of 1 - PPSV23) EYE EXAM 1975 LDL-C 1975 URINE MICROALBUMIN 1975 DTaP,Tdap,and Td Vaccines (1 - 01/30/1984 Tdap) COLONOSCOPY 2015 Zoster Recombinant Vaccine 2015 (SHINGRIX) (1 of 2) INFLUENZA VACCINE 01/24/2019 06/26/2018 HgA1C 04/22/2019 10/20/2018, 05/27/2018, 04/08/2018 CREATININE (SERUM) 08/02/2019 08/01/2018, 06/26/2018, 06/25/2018, Additional history exists FOOT EXAM 10/21/2019 10/20/2018, 10/20/2018, 07/17/2018, Additional history exists documented as of this encounter Procedures Procedure Name Priority Date/Time Associated Diagnosis Comments MEDICATION CORRESPONDENCE Routine 12/13/2018 12:01 AM CDT documented in this encounter Results Not on filedocumented in this encounter Insurance Payer Benefit Plan / Group Subscriber ID Effective Dates Phone Address Type M[employer] [id number] 2018-Present PPO documented as of this encounter
[2019-04-08 18:03] LABS: Urine Blood NEGATIVE (NEG); Urine Glucose 2+ (NEG); Urine Protein 2+ (NEG); Urine Specific Gravity 1.015 (1.005-1.030)
[2019-04-08 18:03] LABS: Urine Bacteria NONE SEEN /HPF (NONE SEEN); Urine Culture Reflex Order NOT NEEDED; Urine RBC <5 /HPF (NONE SEEN)
[2019-04-08] MEDS ORDERED: ONDANSETRON 4 MG/2 ML VIAL ONE (18:22)
[2019-04-08] MEDS ORDERED: NA CHLORIDE 0.9% 1,000 ML ONE (18:22)
[2019-04-08] MEDS ORDERED: MORPHINE 4 MG/ML SYR ONE ×2 (18:22→20:07)
[2019-04-08 18:50] LABS: Albumin 3.4 g/dL (3.4-5.0); Bilirubin Direct 0.1 mg/dL (0-0.2); Bilirubin Total 0.3 mg/dL (0.2-1.0); Potassium 4.3 mmol/L (3.5-5.1); Protein, Total 7.7 g/dL (6.4-8.2)
[2019-04-08 18:53] LABS: Absolute Lymphocytes (CBC) 1.6 K/uL (0.7-4.9); Basophils % 1.1 % (0-1.3); Hematocrit 42.1 % (39.6-49.0); Lymphocytes % 23.5 % (15.3-44.8); MPV 8.6 fL (7.6-11.3)
--- NOTE | 2019-04-08 20:01 | RAD REPORT ---
EXAM DESCRIPTION: CTAbdomen Pelvis W Contrast - 04/08/2019 7:53 pm CLINICAL HISTORY: Abdominal pain. FLANK PAIN COMPARISON: <Comparisons> TECHNIQUE: Biphasic CT imaging of the abdomen and pelvis was performed with 100 ml non-ionic IV cont rast. All CT scans are performed using dose optimization technique as appropriate and may include automated exposure control or mA/KV adjustment according to patient size. FINDINGS: The lung bases are clear. The liver demonstrates diffuse fatty infiltration. Cholelithiasis. Spleen, pancreas, adrenal glands a nd kidneys are within normal limits. No bowel obstruction, free air, free fluid or abscess. The appendix is normal. No evidence of signi ficant lymphadenopathy. No suspicious bony findings. IMPRESSION: No acute intra-abdominal or pelvic finding. Cholelithiasis. Fatty liver.
--- NOTE | 2019-04-08 20:23 | ER ---
Nurse's Notes [facility] Name: Nicola Harvey Age: 54 yrs Sex: Male : 1965 Arrival Date: 04/08/2019 Time: 17:38 Bed 20 Private MD: Diagnosis: Cholelithiasis Presentation: 04/08 17:48 Presenting complaint: Patient states: Continuous R flank pain and urinary frequency x 4 ss days. Denies n/v/d fever. Transition of care: patient was not received from another setting of care. Onset of symptoms was April 03, 2019. Risk Assessment: Do you want to hurt yourself or someone else? Patient reports no desire to harm self or others. Initial Sepsis Screen: Does the patient meet any 2 criteria? No. Patient's initial sepsis screen is negative. Does the patient have a suspected source of infection? No. Patient's initial sepsis screen is negative. Care prior to arrival: None. 17:48 Method Of Arrival: Ambulatory ss 17:48 Acuity: ANGE 3 ss Historical: - Allergies: 17:56 No Known Allergies; ss - PMHx: 17:56 Diabetes - IDDM; Hyperlipidemia; Hypertension; lower back pain with injecitons; ss - Immunization history:: Adult Immunizations up to date. - Social history:: Smoking status: Patient/guardian denies using tobacco. - Ebola Screening: : Patient denies exposure to infectious person Patient denies travel to an Ebola-affected area in the 21 days before illness onset. Screenin:30 Abuse screen: Denies threats or abuse. Denies injuries from another. Nutritional jl7 screening: No deficits noted. Tuberculosis screening: No symptoms or risk factors identified. Fall Risk IV access (20 points). Total Glover Fall Scale indicates No Risk (0-24 pts). Assessment: 18:30 General: Appears in no apparent distress. uncomfortable, Behavior is calm, cooperative, jl7 appropriate for age. Pain: Complains of pain in right low back Pain does not radiate. Pain currently is 8 out of 10 on a pain scale. Quality of pain is described as sharp, Pain began 2-3 days ago. Is continuous. Neuro: Level of Consciousness is awake, alert, obeys commands, Oriented to person, place, time, situation. Cardiovascular: Patient's skin is warm and dry. Respiratory: Airway is patent Respiratory effort is even, unlabored, Respiratory pattern is regular, symmetrical. GI: Abdomen is non-distended. : No signs and/or symptoms were reported regarding the genitourinary system. EENT: No signs and/or symptoms were reported regarding the EENT system. Derm: Skin is pink, warm \T\ dry. 19:21 Reassessment: Patient appears in no apparent distress at this time. Patient and/or family updated on plan of care and expected duration. Pain level reassessed. Patient is alert, oriented x 3, equal unlabored respirations, skin warm/dry/pink. 20:50 Reassessment: Patient appears in no apparent distress at this time. No changes from previously documented assessment. Patient and/or family updated on plan of care and expected duration. Pain level reassessed. Patient is alert, oriented x 3, equal unlabored respirations, skin warm/dry/pink. Patient states feeling better. Patient states symptoms have improved. Vital Signs: 17:56 BP 191 / 93; Pulse 87; Resp 18; Pulse Ox 97% on R/A; Weight 156.49 kg; Height 5 ft. 10 ss in. (177.80 cm); Pain 10/10; 19:21 BP 179 / 102; Pulse 55; Resp 18; Pulse Ox 98% on R/A; wh 20:50 BP 164 / 89; Pulse 75; Resp 18; Pulse Ox 99% on R/A; wh 17:56 Body Mass Index 49.50 (156.49 kg, 177.80 cm) ED Course: 17:38 Patient arrived in ED. mr 17:42 Zack Anderson NP is PHCP. pm1 17:42 Dakotah Gandhi MD is Attending Physician. pm1 17:48 Kirk Bill RN is Primary Nurse. jl7 17:53 Triage completed. ss 17:56 Arm band placed on right wrist. ss 17:57 Radiology exam delayed due to lab results not completed at this time. (BUN/Creatinine) jj2 IV insertion attempt and/or patient not having appropriate IV at this time. 18:21 Radiology exam delayed due to lab results not completed at this time. (BUN/Creatinine). jj2 18:30 Patient has correct armband on for positive identification. Placed in gown. Bed in low jl7 position. Call light in reach. Side rails up X 1. Pulse ox on. NIBP on. 18:30 Initial lab(s) drawn, by me, sent to lab. Inserted saline lock: 22 gauge in left jl7 antecubital area, using aseptic technique. Blood collected. 19:[address] via wheelchair. pa 19:53 CT Abd/Pelvis - IV Contrast Only In Process Unspecified. EDMN 20:21 Hesham Ritchie MD is Referral Physician. pm1 20:51 No provider procedures requiring assistance completed. IV discontinued, intact, bleeding controlled, No redness/swelling at site. Administered Medications: 18:30 Drug: NS 0.9% 1000 ml Route: IV; Rate: 1000 ml; Site: left antecubital; [facility] 20:53 Follow up: Response: No adverse reaction; IV Status: Completed infusion 18:31 Drug: Zofran 4 mg Route: IVP; Site: left antecubital; [facility] 20:54 Follow up: Response: No adverse reaction; Nausea is decreased 18:33 Drug: morphine 4 mg Route: IVP; Site: left antecubital; [facility] 20:53 Follow up: Response: No adverse reaction; Pain is unchanged, physician notified; RASS: Alert and Calm (0) 20:09 Drug: morphine 4 mg {Note: RASS 0.} Route: IVP; Site: left antecubital; 20:54 Follow up: Response: No adverse reaction; Pain is decreased; RASS: Alert and Calm (0) Outcome: 20:22 Discharge ordered by MD. pm1 20:51 Discharged to home ambulatory, with friend. 20:51 Condition: stable 20:51 Discharge instructions given to patient, Instructed on discharge instructions, follow up and referral plans. no drinking with medication, no driving heavy equipment, medication usage, POC Cholelithiasis Demonstrated understanding of instructions, follow-up care, medications, POC Prescriptions given X 2. 20:54 Patient left the ED. Signatures: Dispatcher [employer] JEFFREYMN Katy YuJuan Jose jNo Pruitt, KRUNAL RN Zack Pride, KNITTER WIRE MESH KNITTER WIRE MESH pm1 Asael Burns Jahala, RN RN jl7 Makayla Gunderson
--- NOTE | 2019-04-08 20:23 | EDPHYS ---
Physician Documentation [facility] Name: Nicola Harvey Age: 54 yrs Sex: Male : 1965 Arrival Date: 04/08/2019 Time: 17:38 Bed 20 Private MD: ED Physician Dakotah Gandhi HPI: 04/08 18:13 This 54 yrs old Male presents to ER via Ambulatory with complaints of Flank pm1 Pain. 18:13 The patient complains of pain in the right low back. radiates to right groin area. pm1 Onset: The symptoms/episode began/occurred 3 day(s) ago. Modifying factors: The symptoms are alleviated by positioning, the symptoms are aggravated by particular positions such as lying down. Associated signs and symptoms: Pertinent positives: increased urinary frequency, Pertinent negatives: diarrhea, dysuria, nausea, vomiting. Severity of pain: in the emergency department the pain is actually worse. The patient has not experienced similar symptoms in the past. The patient has not recently seen a physician. Historical: - Allergies: 17:56 No Known Allergies; ss - PMHx: 17:56 Diabetes - IDDM; Hyperlipidemia; Hypertension; lower back pain with injecitons; ss - Immunization history:: Adult Immunizations up to date. - Social history:: Smoking status: Patient/guardian denies using tobacco. - Ebola Screening: : Patient denies exposure to infectious person Patient denies travel to an Ebola-affected area in the 21 days before illness onset. ROS: 18:13 Constitutional: Negative for fever, chills, and weight loss, Eyes: Negative for injury, pm1 pain, redness, and discharge, ENT: Negative for injury, pain, and discharge, Neck: Negative for injury, pain, and swelling, Cardiovascular: Negative for chest pain, palpitations, and edema, Respiratory: Negative for shortness of breath, cough, wheezing, and pleuritic chest pain, Abdomen/GI: Negative for abdominal pain, nausea, vomiting, diarrhea, and constipation. 18:13 MS/Extremity: Negative for injury and deformity, Skin: Negative for injury, rash, and discoloration, Neuro: Negative for headache, weakness, numbness, tingling, and seizure. 18:13 Back: Positive for flank pain, on the right. 18:13 : Positive for flank pain, urinary frequency, Negative for burning with urination. Exam: 18:13 Constitutional: This is a well developed, well nourished patient who is awake, alert, pm1 and in no acute distress. Head/Face: Normocephalic, atraumatic. Chest/axilla: Normal chest wall appearance and motion. Nontender with no deformity. No lesions are appreciated. Cardiovascular: Regular rate and rhythm with a normal S1 and S2. No gallops, murmurs, or rubs. Normal PMI, no JVD. No pulse deficits. Respiratory: Lungs have equal breath sounds bilaterally, clear to auscultation and percussion. No rales, rhonchi or wheezes noted. No increased work of breathing, no retractions or nasal flaring. Abdomen/GI: Soft, non-tender, with normal bowel sounds. No distension or tympany. No guarding or rebound. No evidence of tenderness throughout. 18:13 Skin: Warm, dry with normal turgor. Normal color with no rashes, no lesions, and no evidence of cellulitis. MS/ Extremity: Pulses equal, no cyanosis. Neurovascular intact. Full, normal range of motion. 18:13 Back: pain, that is mild, of the right low back, vertebral tenderness, is not appreciated. 18:13 Neuro: Orientation: is normal, Motor: is normal, moves all fours. Vital Signs: 17:56 BP 191 / 93; Pulse 87; Resp 18; Pulse Ox 97% on R/A; Weight 156.49 kg; Height 5 ft. 10 ss in. (177.80 cm); Pain 10/10; 19:21 BP 179 / 102; Pulse 55; Resp 18; Pulse Ox 98% on R/A; wh 20:50 BP 164 / 89; Pulse 75; Resp 18; Pulse Ox 99% on R/A; wh 17:56 Body Mass Index 49.50 (156.49 kg, 177.80 cm) ss MDM: 17:44 Patient medically screened. pm1 18:16 Data reviewed: vital signs. Data interpreted: Pulse oximetry: on room air is 97 %. pm1 Interpretation: normal. 20:20 Counseling: I had a detailed discussion with the patient and/or guardian regarding: the pm1 historical points, exam findings, and any diagnostic results supporting the discharge/admit diagnosis, lab results, radiology results, the need for outpatient follow up, to return to the emergency department if symptoms worsen or persist or if there are any questions or concerns that arise at home. 04/08 17:48 Order name: Urine Microscopic Only; Complete Time: 18:12 [facility] 04/08 17:51 Order name: Urine Dipstick--Ancillary (enter results); Complete Time: 18:12 em1 04/08 17:55 Order name: Basic Metabolic Panel; Complete Time: 19:08 pm1 04/08 17:55 Order name: CBC with Diff; Complete Time: 19:08 pm1 04/08 17:55 Order name: Creatinine for Radiology; Complete Time: 19:08 pm1 04/08 17:55 Order name: Hepatic Function; Complete Time: 19:08 pm1 04/08 17:48 Order name: Urine Dipstick-Ancillary (obtain specimen); Complete Time: 17:50 [facility] 04/08 17:55 Order name: Lipase; Complete Time: 19:08 pm1 04/08 17:55 Order name: IV Saline Lock; Complete Time: 18:41 pm1 04/08 17:55 Order name: CT Abd/Pelvis - IV Contrast Only; Complete Time: 20:03 pm1 04/08 17:55 Order name: Labs collected and sent; Complete Time: 18:41 pm1 Administered Medications: 18:30 Drug: NS 0.9% 1000 ml Route: IV; Rate: 1000 ml; Site: left antecubital; [facility] 20:53 Follow up: Response: No adverse reaction; IV Status: Completed infusion 18:31 Drug: Zofran 4 mg Route: IVP; Site: left antecubital; [facility] 20:54 Follow up: Response: No adverse reaction; Nausea is decreased 18:33 Drug: morphine 4 mg Route: IVP; Site: left antecubital; [facility] 20:53 Follow up: Response: No adverse reaction; Pain is unchanged, physician notified; RASS: Alert and Calm (0) 20:09 Drug: morphine 4 mg {Note: RASS 0.} Route: IVP; Site: left antecubital; 20:54 Follow up: Response: No adverse reaction; Pain is decreased; RASS: Alert and Calm (0) Disposition: 04/09 07:33 Co-signature as Attending Physician, Dakotah Gandhi MD I agree with the assessment and kdr plan of care. Disposition: 04/08/19 20:22 Discharged to Home. Impression: Cholelithiasis. - Condition is Stable. - Discharge Instructions: Cholelithiasis. - Prescriptions for Bentyl 20 mg Oral Tablet - take 1 tablet by ORAL route every 6 hours As needed; 20 tablet. Tylenol- Codeine #3 300-30 mg Oral Tablet - take 2 tablets by ORAL route every 6 hours As needed; 20 tablet. - Medication Reconciliation Form, Thank You Letter, Antibiotic Education, Prescription Opioid Use form. - Follow up: Emergency Department; When: As needed; Reason: Worsening of condition. Follow up: Hesham Ritchie MD; When: 2 - 3 days; Reason: Recheck today's complaints, Continuance of care, Re-evaluation by your physician. - Problem is new. - Symptoms have improved. Signatures: Dispatcher [employer] EDMS Dakotah Gandhi MD MD kdr No Goss RN RN ss Zack Anderson NP FOOD CHECKER pm1 Kirk Bill RN RN jl7 Makayla Gunderson Corrections: (The following items were deleted from the chart) 04/08 20:54 20:22 04/08/2019 20:22 Discharged to Home. Impression: Cholelithiasis. Condition is wh Stable. Forms are Medication Reconciliation Form, Thank You Letter, Antibiotic Education, Prescription Opioid Use. Follow up: Emergency Department; When: As needed; Reason: Worsening of condition. Follow up: Hesham Ritchie; When: 2 - 3 days; Reason: Recheck today's complaints, Continuance of care, Re-evaluation by your physician. Problem is new. Symptoms have improved. pm1
[2019-04-08 21:16] VITALS: BP 164/89; O2SAT 99
== END 2019-04-08 20:54 | disposition home or self-care (01) ==
LOC: ER 17:35
DX: K80.20 Calculus of gallbladder without cholecystitis without obstruction (principal); I10 Essential (primary) hypertension
CPT/HCPCS: 96361; 85025; 80048; 36415; 80076; 83690; 74177; 96375; 96374; 99284; Q9967; J7030; J2405; 81003; 81015

== ENCOUNTER 2019-04-11 13:51 | Inpatient (IN) | payer OTHER, SELFPAY ==
--- OUTSIDE RECORDS SUMMARY | 2019-04-11 13:55 | XMS REPORT ---
:1965 Author Organization [facility] Address [address] [place] [address] [address] [place] [address] Care Team Providers Name Role Phone VIANNEYMADI Unavailable Unavailable TAMMY BETANCOURT Unavailable Unavailable Problems This patient has no known problems. Allergies, Adverse Reactions, Alerts This patient has no known allergies or adverse reactions. Medications This patient has no known medications. Results Test Description Test Time Test Comments Text Results Atomic Results Result Comments [facility] 2017-01-28 05:57:00 Test Item Value Reference [...] EGFR if Non- >60 mL/min/1.73m\\S\\2 Estimated Glomerular Palestinian (test Filtration Rate (eGFR) code=EGFRNA) Reference Intervals [...] of chronic kidney failure. CBC WITH AUTO [id number] 05:42:00 Test Item Value Reference Range Comments [...] 1.0-3.0 IG% (test code=IG%) 1.0 % 0.0-0.4 [id number] 05:53:00 Test Item Value Reference Range Comments [...] mL/min/1.73m\\S\\2 EGFR if Non- >60 Estimated Glomerular Palestinian (test mL/min/1.73m\\S\\2 Filtration Rate (eGFR) code=EGFRNA) Reference [...] of chronic kidney failure. CBC WITH AUTO [id number] 05:27:00 Test Item Value Reference Range Comments [...] 1.0-3.0 IG% (test code=IG%) 1.7 % 0.0-0.4 [id number] 04:36:00 Test Item Value Reference Range Comments [...] mL/min/1.73m\\S\\2 EGFR if Non- >60 Estimated Glomerular Palestinian (test mL/min/1.73m\\S\\2 Filtration Rate (eGFR) code=EGFRNA) Reference [...] of chronic kidney failure. CBC WITH AUTO [id number] 04:14:00 Test Item Value Reference Range Comments [...] 1.0-3.0 IG% (test code=IG%) 1.9 % 0.0-0.4 [id number] 04:40:00 Test Item Value Reference Range Comments [...] mL/min/1.73m\\S\\2 EGFR if Non- >60 Estimated Glomerular Palestinian (test mL/min/1.73m\\S\\2 Filtration Rate (eGFR) code=EGFRNA) Reference [...] of chronic kidney failure. CBC WITH AUTO [id number] 04:09:00 Test Item Value Reference Range Comments [...] IG% (test code=IG%) 2.4 % 0.0-0.4 CULTURE, [id number] 06:50:00To start 15mins after 1st cultureSpecimen: BloodCollected: 01/18/2017 04:05 Status: Final Last Updated: 01/23/2017 06: 49 (1) To start 15mins after 1st culture Culture Result (Final) (Final ) No Growth After 5 DaysCULTURE, [id number] 06:50:00Specimen: BloodCollected: 01/18/2017 03:55 Status: Final Last Updated: 01/23/2017 06: 49 Culture Result (Final) (Final) No Growth After 5 DaysCBC WITH AUTO [id number] 04:31:00 Test Item Value Reference Range Comments [...] 1.0-3.0 IG% (test code=IG%) 3.4 % 0.0-0.4 [id number] 04:19:00 Test Item Value Reference Range Comments [...] mL/min/1.73m\\S\\2 EGFR if Non- >60 Estimated Glomerular Palestinian (test mL/min/1.73m\\S\\2 Filtration Rate (eGFR) code=EGFRNA) Reference [...] of chronic kidney failure. CBC WITH AUTO [id number] 04:57:00 Test Item Value Reference Range Comments [...] (test code=IG%) 4.0 % 0.0-0.4 CBC AUTO [id number] 04:35:00 Test Item Value Reference Range Comments [...] mL/min/1.73m\\S\\2 EGFR if Non- >60 Estimated Glomerular Palestinian (test mL/min/1.73m\\S\\2 Filtration Rate (eGFR) code=EGFRNA) Reference [...] of chronic kidney failure. CBC WITH AUTO [id number] 05:01:00 Test Item Value Reference Range Comments [...] (test code=IG%) 4.5 % 0.0-0.4 CBC AUTO [id number] 04:56:00 Test Item Value Reference Range Comments [...] mL/min/1.73m\\S\\2 EGFR if Non- >60 Estimated Glomerular Palestinian (test mL/min/1.73m\\S\\2 Filtration Rate (eGFR) code=EGFRNA) Reference [...] of chronic kidney failure. CBC WITH AUTO [id number] 05:57:00 Test Item Value Reference Range Comments [...] 1.0-3.0 IG% (test code=IG%) 4.8 % 0.0-0.4 [id number] 05:41:00 Test Item Value Reference Range Comments Magnesium (test code=MG) 2.0 mg/dl 1.6-2.3 [id number] 05:41:00 Test Item Value Reference Range Comments [...] mL/min/1.73m\\S\\2 EGFR if Non- >60 Estimated Glomerular Palestinian (test mL/min/1.73m\\S\\2 Filtration Rate (eGFR) code=EGFRNA) Reference [...] management of chronic kidney failure. LACTIC ACID [id number] 06:43:00 Test Item Value Reference Range Comments LACTATE (test code=LAC) 0.9 mmol/l 0.7-2.0 GLYCOSALATED [id number] 05:41:00 Test Item Value Reference Range Comments Hemoglobin A1C (test 9.06 % 4.3-6.0 code=GLYCO) Mean Plasma Glucose (test 245 mg/dl 90-180 WHEN TEST RESULTS FOR A1C code=MPG) EXCEED 14.0, THE LINEAR LIMIT OF THE INSTRUMENT, THE CALCULATED RESULT FOR THE MEAN GLUCOSE IS NOT RELIABLE. CORONARY [id number] 05:09:00 Test Item Value Reference Range Comments [...] Average vLDL (test code=VLDL) 37 mg/dl 30-60 [id number] 04:51:00 Test Item Value Reference Range Comments Magnesium (test code=MG) 2.1 mg/dl 1.6-2.3 [id number] 04:51:00 Test Item Value Reference Range Comments CPK (test code=CPK) 93 U/L 30-135 LIPASE, [id number] 04:43:00 Test Item Value Reference Range Comments Lipase (test code=LIPA) 116 U/L 8-223 [id number] 04:43:00 Test Item Value Reference Range Comments [...] mL/min/1.73m\\S\\2 EGFR if Non- >60 Estimated Glomerular Palestinian (test mL/min/1.73m\\S\\2 Filtration Rate (eGFR) code=EGFRNA) Reference [...]
[2019-04-11] MEDS ORDERED: NA CHLORIDE 0.9% ONE (14:36)
[2019-04-11] MEDS ORDERED: IBUPROFEN 400 MG TAB ONE (14:36)
[2019-04-11 14:44] LABS: Absolute Lymphocytes (CBC) 0.7 K/uL (0.7-4.9); Basophils % 0.3 % (0-1.3); Hematocrit 40.1 % (39.6-49.0); Lymphocytes % 5.3 % (15.3-44.8); MPV 8.4 fL (7.6-11.3); RBC Red Blood Cell Count 4.97 M/uL (4.33-5.43)
[2019-04-11] MEDS ORDERED: VANCOMYCIN/NS 1 gm 1 GM/250 ML BAG IVPB ONE (14:45)
[2019-04-11 14:48] LABS: Protime INR 1.08
[2019-04-11 15:01] LABS: ALT/SGPT 51 U/L (12-78); AST/SGOT 21 U/L (15-37); Albumin 3.5 g/dL (3.4-5.0); Alkaline Phosphatase 76 U/L (45-117); BUN Blood Urea Nitrogen 15 mg/dL (7-18); Bicarbonate 27 mmol/L (21-32); Bilirubin Direct 0.2 mg/dL (0-0.2); Bilirubin Total 0.7 mg/dL (0.2-1.0); CKMB Creatine Kinase MB 1.6 ng/mL (0.3-3.6); Creatine Phosphokinase 152 U/L (39-308); Glucose Level 275 mg/dL (74-106); Lipase 66 U/L (73-393); Potassium 3.9 mmol/L (3.5-5.1); Protein, Total 7.9 g/dL (6.4-8.2); Sodium Level 135 mmol/L (136-145); Troponin (Emerg Dept Use Only) < 0.02 ng/mL (0.0-0.045)
[2019-04-11] MEDS ORDERED: ACETAMINOPHEN 500 MG TAB ONE (15:05)
[2019-04-11 15:08] LABS: Urine Bacteria <20 /HPF (NONE SEEN); Urine Culture Reflex Order NOT NEEDED; Urine RBC <5 /HPF (NONE SEEN)
--- NOTE | 2019-04-11 15:25 | ER ---
Nurse's Notes [facility] Name: Nicola Harvey Age: 54 yrs Sex: Male : 1965 Arrival Date: 04/11/2019 Time: 13:54 Bed 23 Private MD: Diagnosis: Cellulitis of right lower limb;Bandemia;Hyperglycemia, unspecified Presentation: 04/11 14:02 Presenting complaint: Patient states: I was just here for my gall bladder and now my la1 right leg is having problems, I think it might be infected. Transition of care: patient was not received from another setting of care. Onset of symptoms was April 11, 2019. Risk Assessment: Do you want to hurt yourself or someone else? Patient reports no desire to harm self or others. Initial Sepsis Screen: Does the patient meet any 2 criteria? Temp <36.0*C (96.8*F)) or > 38.3*C (100.9*F). HR > 90 bpm. Yes Does the patient have a suspected source of infection? Yes: Skin breakdown/wound Acute abdominal pain. Care prior to arrival: None. 14:02 Method Of Arrival: Ambulatory la1 14:02 Acuity: ANGE 2 la1 Historical: - Allergies: 14:01 No Known Allergies; la1 - PMHx: 14:01 Diabetes - IDDM; Hyperlipidemia; Hypertension; lower back pain with injecitons; la1 - Immunization history:: Adult Immunizations up to date. - Social history:: Smoking status: Patient/guardian denies using tobacco. - Ebola Screening: : No symptoms or risks identified at this time. Screenin:10 Abuse screen: Denies threats or abuse. Nutritional screening: No deficits noted. tr5 Tuberculosis screening: No symptoms or risk factors identified. Fall Risk None identified. 14:10 Sepsis Screening: . Infection: Patient has suspected or documented infection. SIRS - tr5 Systemic Inflammatory Response Syndrome: 2 or more indicates positive screen: [temperature greater than or equal to 100.9F or less than or equal to 96.8F] [heart rate greater than 90 beats per minute] Provider has been notified and patient further screened based on infection criteria. Assessment: 14:10 General: Appears uncomfortable, Behavior is calm, cooperative, appropriate for age. tr5 Pain: Complains of pain in umbilical area and right leg Pain currently is 8 out of 10 on a pain scale. Quality of pain is described as aching, crampy. Neuro: Level of Consciousness is awake, alert, obeys commands, Oriented to person, place, time, Clinical Science Liaison are equal bilaterally. Cardiovascular: Heart tones present Capillary refill < 3 seconds. Respiratory: Airway is patent Respiratory effort is even, unlabored, Respiratory pattern is regular, symmetrical. GI: Reports upper abdominal pain. : No signs and/or symptoms were reported regarding the genitourinary system. EENT: No signs and/or symptoms were reported regarding the EENT system. Derm: Rash noted that is red, on right leg. Musculoskeletal: No signs and/or symptoms reported regarding the musculoskeletal system. 16:00 Reassessment: Patient appears in no apparent distress at this time. Patient and/or tr5 family updated on plan of care and expected duration. Pain level reassessed. Patient is alert, oriented x 3, equal unlabored respirations, skin warm/dry/pink. Vital Signs: 14:02 BP 131 / 77; Pulse 116; Resp 16; Temp 101.5; Pulse Ox 100% on R/A; Weight 156.49 kg; la1 Height 5 ft. 10 in. (177.80 cm); Pain 8/10; 14:58 BP 146 / 55; Pulse 115; Resp 20; Temp 102.0(O); Pulse Ox 100% ; lt1 16:18 BP 131 / 70; Pulse 98; Resp 18; Temp 99.4(O); Pulse Ox 98% ; tr5 14:02 Body Mass Index 49.50 (156.49 kg, 177.80 cm) la1 ED Course: 13:54 Patient arrived in ED. as 14:01 Arm band placed on left wrist. la1 14:03 Triage completed. la1 14:05 Osiris Quiroz FNP-C [facility]. kb 14:05 Weston Carty MD is Attending Physician. kb 14:10 Bed in low position. Call light in reach. Side rails up X 1. tr5 14:12 EKG done, by ED staff. lt1 14:27 Initial lab(s) drawn, by me, sent to lab. Second set of blood cultures drawn 1st set of lt1 cultures were drawn by lab on LAC. 2nd set of cultures and labs were drawn by me with 20 IV to RAC at 14:27. 14:40 Inserted saline lock: 20 gauge in right antecubital area, using aseptic technique. lt1 14:44 Urine collected: clean catch specimen. lt1 15:01 US Extremity Venous Unilateral Ltd In Process Unspecified. EDMS 15:01 Ultrasound completed. Patient tolerated well. sg3 15:05 Lavelle Cross, RN is Primary Nurse. tr5 15:24 Harjeet Mcknight MD is Hospitalizing Provider. kb 17:22 No provider procedures requiring assistance completed. Patient admitted, IV remains in tr5 place. Administered Medications: 14:35 Drug: Motrin 800 mg Route: PO; tr5 17:26 Follow up: Response: Marked relief of symptoms; Temperature is increased tr5 14:35 Drug: NS 0.9% (30 ml/kg) 30 ml/kg Route: IV; Rate: bolus; Site: right antecubital; tr5 15:07 Drug: vancoMYCIN 1 grams Route: IVPB; Infused Over: 2 hrs; Site: right antecubital; tr5 17:00 Follow up: IV Status: Completed infusion; IV Intake: 250ml tr5 15:07 Drug: Tylenol 1000 mg Route: PO; em 16:00 Follow up: Response: Temperature is decreased tr5 Intake: 17:00 IV: 250ml; Total: 250ml. tr5 Outcome: 15:24 Decision to Hospitalize by Provider. kb 17:22 Admitted to Med/surg accompanied by tech, via wheelchair, with chart, Report called to tr5 Giovana HECTOR 17:22 Condition: stable 17:22 Instructed on the need for admit. 17:23 Patient left the ED. tr5 Signatures: Dispatcher [employer] EDOsiris Lynne, VEHICLE BODY MAKER-C VEHICLE BODY MAKER-Ckb Jeremy Brown, FIELD RECORDER FIELD RECORDER em Rima Kebede Lee, RN RN Chani Galo sg3 Lauren Geiger lt1 Lavelle Cross, RN RN tr5
--- NOTE | 2019-04-11 15:25 | EDPHYS ---
Physician Documentation [facility] Name: Nicola Harvey Age: 54 yrs Sex: Male : 1965 Arrival Date: 04/11/2019 Time: 13:54 Bed 23 Private MD: ED Physician Weston Carty HPI: 04/11 15:36 This 54 yrs old Male presents to ER via Ambulatory with complaints of Leg Pain.kb 15:37 The patient presents with cellulitis of the right leg. Description: erythematous, hot, kb swollen. Onset: The symptoms/episode began/occurred this morning. Possible cause(s): unknown. Associated signs and symptoms: Pertinent positives: erythema, fever, swelling. Modifying factors: the symptoms are alleviated by nothing, the symptoms are aggravated by pressure, touching. Severity of symptoms: At their worst the symptoms were moderate, in the emergency department the symptoms are unchanged. The patient has experienced similar episodes in the past. The patient has been recently seen at the [facility] Emergency Department, this week, for unrelated complaints. 15:37 Pt reports right lower leg pain, chills and fever that started this morning. "I've had kb cellulitis in that leg a few times before and it feels the same. It feels like it normally does before it starts blistering up." Reports he had to have a PICC line in the past with vancomycin infusions. . Historical: - Allergies: 14:01 No Known Allergies; la1 - PMHx: 14:01 Diabetes - IDDM; Hyperlipidemia; Hypertension; lower back pain with injecitons; la1 - Immunization history:: Adult Immunizations up to date. - Social history:: Smoking status: Patient/guardian denies using tobacco. - Ebola Screening: : No symptoms or risks identified at this time. ROS: 15:36 ENT: Negative for injury, pain, and discharge, Neck: Negative for injury, pain, and kb swelling, Cardiovascular: Negative for chest pain, palpitations, and edema, Respiratory: Negative for shortness of breath, cough, wheezing, and pleuritic chest pain, Abdomen/GI: Negative for abdominal pain, nausea, vomiting, diarrhea, and constipation, Back: Negative for injury and pain, : Negative for injury, bleeding, discharge, and swelling, Neuro: Negative for headache, weakness, numbness, tingling, and seizure. 15:36 Constitutional: Positive for chills, fever. 15:36 MS/extremity: Positive for pain. 15:36 Skin: Positive for cellulitis. Exam: 15:35 Constitutional: This is a well developed, well nourished patient who is awake, alert, kb and in no acute distress. Head/Face: Normocephalic, atraumatic. Chest/axilla: Normal chest wall appearance and motion. Nontender with no deformity. No lesions are appreciated. Cardiovascular: Regular rate and rhythm with a normal S1 and S2. No gallops, murmurs, or rubs. Normal PMI, no JVD. No pulse deficits. Respiratory: Lungs have equal breath sounds bilaterally, clear to auscultation and percussion. No rales, rhonchi or wheezes noted. No increased work of breathing, no retractions or nasal flaring. Abdomen/GI: Soft, non-tender, with normal bowel sounds. No distension or tympany. No guarding or rebound. No evidence of tenderness throughout. Back: No spinal tenderness. No costovertebral tenderness. Full range of motion. MS/ Extremity: Pulses equal, no cyanosis. Neurovascular intact. Full, normal range of motion. Neuro: Awake and alert, GCS 15, oriented to person, place, time, and situation. Cranial nerves II-XII grossly intact. Motor strength 5/5 in all extremities. Sensory grossly intact. Cerebellar exam normal. Normal gait. 15:35 Skin: cellulitis, that is moderate, on the right grant. Vital Signs: 14:02 BP 131 / 77; Pulse 116; Resp 16; Temp 101.5; Pulse Ox 100% on R/A; Weight 156.49 kg; la1 Height 5 ft. 10 in. (177.80 cm); Pain 8/10; 14:58 BP 146 / 55; Pulse 115; Resp 20; Temp 102.0(O); Pulse Ox 100% ; lt1 16:18 BP 131 / 70; Pulse 98; Resp 18; Temp 99.4(O); Pulse Ox 98% ; tr5 14:02 Body Mass Index 49.50 (156.49 kg, 177.80 cm) la1 MDM: 14:05 Patient medically screened. kb 15:20 Data reviewed: vital signs, nurses notes. Data interpreted: Pulse oximetry: on room air kb is 100 %. Interpretation: normal. 15:23 Counseling: I had a detailed discussion with the patient and/or guardian regarding: the kb historical points, exam findings, and any diagnostic results supporting the discharge/admit diagnosis, lab results, radiology results, the need for further work-up and treatment in the hospital. 15:34 Physician consultation: Denny Padilla MD was contacted at 15:34, regarding admission, kb to the medical/surgical unit. patient's condition. 04/11 14:11 Order name: Basic Metabolic Panel; Complete Time: 15:09 kb 04/11 14:11 Order name: Blood Culture Adult (2) kb 04/11 14:11 Order name: CBC with Diff; Complete Time: 15:33 kb 04/11 14:11 Order name: Ckmb; Complete Time: 15:09 kb 04/11 14:11 Order name: CPK; Complete Time: 15:09 kb 04/11 14:11 Order name: Lactate; Complete Time: 15:09 kb 04/11 14:11 Order name: LFT's; Complete Time: 15:09 kb 04/11 14:11 Order name: Lipase; Complete Time: 15:09 kb 04/11 14:11 Order name: Procalcitonin; Complete Time: 15:10 kb 04/11 14:11 Order name: Protime (+inr); Complete Time: 14:57 kb 04/11 14:11 Order name: Ptt, Activated; Complete Time: 14:57 kb 04/11 14:11 Order name: Troponin (emerg Dept Use Only); Complete Time: 15:09 kb 04/11 14:11 Order name: Urine Microscopic Only; Complete Time: 15:09 kb 04/11 14:41 Order name: Glucose, Ancillary Testing; Complete Time: 14:43 EDMS 04/11 14:11 Order name: Accucheck; Complete Time: 14:45 kb 04/11 14:11 Order name: Cardiac monitoring; Complete Time: 15:00 kb 04/11 14:11 Order name: EKG - Nurse/Tech; Complete Time: 14:45 kb 04/11 14:11 Order name: IV Saline Lock - Large Bore; Complete Time: 14:45 kb 04/11 14:11 Order name: Labs collected and sent; Complete Time: 14:45 kb 04/11 14:11 Order name: O2 Per Protocol; Complete Time: 14:45 kb 04/11 14:11 Order name: O2 Sat Monitoring; Complete Time: 14:45 kb 04/11 14:11 Order name: Urine Dipstick-Ancillary (obtain specimen); Complete Time: 14:45 kb 04/11 14:11 Order name: US Extremity Venous Unilateral Ltd; Complete Time: 15:41 kb 04/11 14:47 Order name: Manual Differential; Complete Time: 15:33 EDMS 04/11 14:55 Order name: Urine Dipstick--Ancillary (enter results); Complete Time: 15:35 em1 Administered Medications: 14:35 Drug: Motrin 800 mg Route: PO; tr5 17:26 Follow up: Response: Marked relief of symptoms; Temperature is increased tr5 14:35 Drug: NS 0.9% (30 ml/kg) 30 ml/kg Route: IV; Rate: bolus; Site: right antecubital; tr5 15:07 Drug: vancoMYCIN 1 grams Route: IVPB; Infused Over: 2 hrs; Site: right antecubital; tr5 17:00 Follow up: IV Status: Completed infusion; IV Intake: 250ml tr5 15:07 Drug: Tylenol 1000 mg Route: PO; em 16:00 Follow up: Response: Temperature is decreased tr5 Disposition: 04/11/19 15:24 Hospitalization ordered by Harjeet Mcknight for Inpatient Admission. Preliminary diagnosis are Cellulitis of right lower limb, Bandemia, Hyperglycemia, unspecified. - Bed requested for Telemetry/MedSurg (Inpatient). - Status is Inpatient Admission. tr5 - Condition is Stable. - Problem is new. - Symptoms are unchanged. UTI on Admission? No Addendum: 04/13/2019 07:01 Co-signature as Attending Physician, Weston Carty MD I agree with the assessment and c blanco plan of care. Signatures: Dispatcher [employer] Osiris Ann, DELIVERY LEAD-C DELIVERY LEAD-Weston Felder MD MD cha Munoz, Edgar, SOLUTIONS CONSULTANT SOLUTIONS CONSULTANT em Modesto Kebede em1 Jose G Blackwood, KRUNAL RN la1 Lavelle Cross, RN RN tr5 Corrections: (The following items were deleted from the chart) 04/11 15:34 15:24 Hospitalization Ordered by Harjeet Mcknight MD for Inpatient Admission. Preliminary kb diagnosis is Cellulitis of right lower limb. Bed requested for Telemetry/MedSurg (Inpatient). Status is Inpatient Admission. Condition is Stable. Problem is new. Symptoms are unchanged. UTI on Admission? No. kb 15:49 15:34 04/11/2019 15:24 Hospitalization Ordered by Harjeet Mcknight MD for Inpatient em1 Admission. Preliminary diagnosis is Cellulitis of right lower limb; Bandemia; Hyperglycemia, unspecified. Bed requested for Telemetry/MedSurg (Inpatient). Status is Inpatient Admission. Condition is Stable. Problem is new. Symptoms are unchanged. UTI on Admission? No. kb 17:23 15:49 04/11/2019 15:24 Hospitalization Ordered by Harjeet Mcknight MD for Inpatient tr5 Admission. Preliminary diagnosis is Cellulitis of right lower limb; Bandemia; Hyperglycemia, unspecified. Bed requested for Telemetry/MedSurg (Inpatient). Status is Inpatient Admission. Condition is Stable. Problem is new. Symptoms are unchanged. UTI on Admission? No. em1
[2019-04-11 15:31] LABS: Blood Morphology Comment NOT SEEN (NOT SEEN)
[2019-04-11 15:32] LABS: Platelet Estimate ADEQ
[2019-04-11 15:33] LABS: Urine Blood TRACE (NEG); Urine Glucose 2+ (NEG); Urine Protein 2+ (NEG); Urine pH 6.5 (5.0-7.0)
--- NOTE | 2019-04-11 15:40 | RAD REPORT ---
EXAM DESCRIPTION: US - Extremity Venous Uni Ltd - 04/11/2019 3:00 pm CLINICAL HISTORY: Right leg pain and swelling COMPARISON: None. TECHNIQUE: Real-time sonographic evaluation of the right lower extremity deep venous systems was per formed. FINDINGS: Normal compressibility, flow augmentation, phasic flow and spontaneous flow are identified in the right lower extremity common femoral, superficial femoral, popliteal and posterior tibial vei ns. No intraluminal filling defects seen. IMPRESSION: No DVT in the right lower extremity.
[2019-04-11] MEDS ORDERED: ACETAMINOPHEN 500 MG TAB PO PRN (16:49)
[2019-04-11] MEDS ORDERED: GLUCAGON 1 MG/VIAL IM PRN (16:49)
[2019-04-11] MEDS ORDERED: D50W 25 GM/50 ML SYRINGE IV PRN (16:49)
[2019-04-11] MEDS ORDERED: VANCOMYCIN/NS 1 gm 1 GM/250 ML BAG IVPB SCH ×2 (16:49→17:45)
[2019-04-11 17:37] VITALS: BMI 49.5
[2019-04-11] MEDS: INSULIN -REGULAR HUMAN 50 UNIT/0.5 ML ML SQ SCH ×2 (17:43→21:03)
[2019-04-12] MEDS: IBUPROFEN 600 MG TAB PO PRN ×3 (00:52→20:52)
[2019-04-12] MEDS: VANCOMYCIN/NS 1 gm 1 GM/250 ML BAG IVPB SCH ×2 (02:07→15:26)
[2019-04-12 06:17] LABS: Absolute Lymphocytes (CBC) 0.8 K/uL (0.7-4.9); Basophils % 0.7 % (0-1.3); Hematocrit 36.6 % (39.6-49.0); Lymphocytes % 9.9 % (15.3-44.8); MPV 8.3 fL (7.6-11.3); RBC Red Blood Cell Count 4.47 M/uL (4.33-5.43)
[2019-04-12 06:31] LABS: Potassium 4.3 mmol/L (3.5-5.1)
--- NOTE | 2019-04-12 07:09 | EKG ---
Test Date: 2019-04-11 Test Time: 14:12:48 Enterprise Security Architect: LMT MEASUREMENT RESULTS: Intervals: Rate: 105 OK: 132 QRSD: 104 QT: 320 QTc: 422 Beccaria: P: 43 OK: 132 QRS: 69 T: 33 INTERPRETIVE STATEMENTS: Sinus tachycardia Incomplete right bundle branch block Borderline ECG Compared to ECG 08/30/2018 08:53:23 Sinus rhythm no longer present Electronically Signed On 04-12-19 07:08:44 PREPRESS OPERATOR by Yobani Tavera
[2019-04-12] MEDS ORDERED: GLUCAGON 1 MG/VIAL IM PRN (07:24)
[2019-04-12] MEDS ORDERED: D50W 25 GM/50 ML SYRINGE IV PRN (07:24)
[2019-04-12] MEDS: METFORMIN ER 500 MG TAB PO SCH ×2 (08:34→16:50)
[2019-04-12] MEDS: glyBURIDE 2.5 MG TAB PO SCH ×2 (08:34→16:50)
[2019-04-12] MEDS: CEFTRIAXONE/SWI 1gm 1 GM/10 ML SYR IV SCH ×2 (08:35→20:52)
[2019-04-12] MEDS: LISINOPRIL 20 MG TAB PO SCH (08:35)
[2019-04-12] MEDS: AMLODIPINE 5 MG TAB PO SCH ×2 (08:36→20:47)
[2019-04-12] MEDS: INSULIN GLARGINE 100 UNITS/ML SQ SCH (08:36)
[2019-04-12] MEDS: ENOXAPARIN 30 MG/0.3 ML SQ SCH ×2 (08:37→20:47)
[2019-04-12] MEDS: INSULIN -REGULAR HUMAN 50 UNIT/0.5 ML ML SQ SCH ×4 (08:37→21:04)
[2019-04-12] MEDS: METOPROLOL TAR 50 MG TAB PO SCH ×2 (08:46→18:08)
[2019-04-12] MEDS ORDERED: CEFTRIAXONE 1 GM/NS 50 ML 1 GM/50 ML BAG IV SCH (09:00)
[2019-04-12] MEDS ORDERED: ATORVASTATIN 10 MG TAB PO SCH (21:00)
[2019-04-13] MEDS: VANCOMYCIN/NS 1 gm 1 GM/250 ML BAG IVPB SCH (02:49)
--- NOTE | 2019-04-13 04:45 | HP ---
Date of Admission: 04/11/2019 Chief Complaint: Fever, chills, pain in right leg. History Of Present Illness: This is a 54-year-old male patient with diabetes, hypertension, hyperlip idemia, history of recurrent cellulitis of leg, came into emergency room with complaints of fever, ch ills, redness, and pain in his right lower extremity and all symptoms started yesterday. He came int o the emergency room. After he was evaluated in the ER, he was admitted to the hospital with celluli tis of right leg. Patient does not have any open wound on the right leg. No fall. No injury. Medications: List reviewed. Review of Systems: Constitutional: As mentioned above. Dermatology: As mentioned above. All other systems reviewed and negative. Allergies: NO KNOWN ALLERGIES. Past Medical History: Significant for hypertension, cervical spinal stenosis, obstructive sleep apne a, depression, hyperlipidemia, type 2 diabetes mellitus, and lumbar radiculopathy. Past Surgical History: Significant for sinus surgery. Family History: Significant for colon cancer and prostate cancer. Social History: Negative for smoking and alcohol use. Physical Examination: Vital Signs: Temperature 98, pulse 78, respiratory rate 19, blood pressure 154/74, oxygen saturation 94%. Height 5 feet 10 inches, weight 345 pounds. General: Awake, alert, oriented, not in distress. HEENT: Head atraumatic, normocephalic. Conjunctivae nonerythematous. Sclerae white. Mouth, no thr ush or edema noted. Ears/Nose, no mass, lesion, discharge noted. Neck: Supple. No JVD, lymph nodes, bruit, thyromegaly noted. Lungs: Bilateral good equal air entry. Clear to auscultation. No rhonchi. No rales. Heart: Normal heart sounds, no murmur or gallop. Abdomen: Soft, bowel sounds normal. No guarding, rigidity, tenderness, mass, hepatosplenomegaly, dis tention, or bruit noted. Extremities: Right leg has grade 1 pedal edema. Presence of pink and warm skin involving almost ent alok leg between right knee and right ankle region. No open wound. Skin: No rash, ulcer, cellulitis. Lymphatics: No lymph node enlargement in neck, supraclavicular, infraclavicular region. Neuro: No focal neurological deficit. Chest: Unremarkable. External Genitalia: Deferred. Rectal: Deferred. Laboratory Data: Venous Doppler of right leg was negative for DVT. White count 12.7 yesterday, hemo globin 13.6, platelets 230. Yesterday, sodium 135, potassium 3.9, chloride 100, bicarb 27, BUN 15, c reatinine 1.08, glucose 275. Lactic acid 3.4, procalcitonin 0.14. Liver function tests unremarkable . Urinalysis, trace blood otherwise negative. Repeat white count today is 7.6, hemoglobin 12.3, dayne telets 205. Chemistry today, sodium 135, potassium 4.3, chloride 104, bicarb 27, BUN 13, creatinine 0.92, glucose 260. Impression: 1.Cellulitis, right leg. 2.Rule out sepsis. 3.Type 2 diabetes mellitus, uncontrolled. 4.Hypertension. 5.Hyperlipidemia. 6.Obstructive sleep apnea. Plan: We will admit the patient to hospital for further evaluation and management of this problem. The patient is appropriate for inpatient and is expected to spend 2 midnights in hospital. We will g o ahead and continue home medications per order. DVT prophylaxis will be given using Lovenox per ord er. Patient was started on vancomycin in emergency room and I have added ceftriaxone. We will follo w up on culture results. Ambulation was encouraged. I will see him tomorrow for followup. Plan of treatment discussed with the patient. We will get hemoglobin A1c done. He sees his brass pickler, Dr. Daly regularly for diabe moni management. WALT/MODL Voice ID: [id number]
[2019-04-13] MEDS: METOPROLOL TAR 50 MG TAB PO SCH (05:23)
[2019-04-13 05:26] VITALS: BP 156/71
[2019-04-13] MEDS: glyBURIDE 2.5 MG TAB PO SCH (08:23)
[2019-04-13] MEDS: LISINOPRIL 20 MG TAB PO SCH (08:24)
[2019-04-13] MEDS: METFORMIN ER 500 MG TAB PO SCH (08:24)
[2019-04-13] MEDS: INSULIN GLARGINE 100 UNITS/ML SQ SCH (08:25)
[2019-04-13] MEDS: INSULIN -REGULAR HUMAN 50 UNIT/0.5 ML ML SQ SCH (08:25)
[2019-04-13] MEDS: AMLODIPINE 5 MG TAB PO SCH (08:25)
[2019-04-13] MEDS: ENOXAPARIN 30 MG/0.3 ML SQ SCH (08:26)
[2019-04-13] MEDS: CEFTRIAXONE/SWI 1gm 1 GM/10 ML SYR IV SCH (08:28)
[2019-04-13 09:08] VITALS: TEMP 98.3
[2019-04-13 09:19] VITALS: O2SAT 95
[2019-04-13] MEDS ORDERED: VANCOMYCIN 2 GM in NA CHLORIDE 0.9% 500 ML IV SCH (15:00)
== END 2019-04-13 10:38 | disposition home or self-care (01) | DRG 603 ==
LOC: ER 13:51 → ERHOLD 15:26 → 2ND 16:36
PROVIDERS: ADMIT Internal Medicine; ATTEND Internal Medicine
DX: L03.115 Cellulitis of right lower limb (principal); E11.9 Type 2 diabetes mellitus without complications; I10 Essential (primary) hypertension; E78.5 Hyperlipidemia, unspecified; G47.33 Obstructive sleep apnea (adult) (pediatric)
CPT/HCPCS: 36415; 80048; 80076; 80202; 81003; 81015; 82550; 82553; 82947; 83036; 83605; 83690; 84145; 84484; 85025; 85610; 85730; 87040; 93005; 93971; 96365; 96366; 96375; 99285; J0696; J1650; J1815; J3370; J7030; J7040

== ENCOUNTER 2019-05-28 16:31 | Emergency (ER) | payer BC, OTHER ==
--- OUTSIDE RECORDS SUMMARY | 2019-05-28 16:36 | XMS REPORT ---
:1965 [facility] Address [address] [place] [address] [address] [place] [address] Care Team Providers Name Role Phone VIANNEYDANIKARA Unavailable Unavailable TAMMY BETANCOURT Unavailable Unavailable Problems This patient has no known problems. Allergies, Adverse Reactions, Alerts This patient has no known allergies or adverse reactions. Medications This patient has no known medications. Results Test Description Test Time Test Comments Text Results Atomic Results Result Comments [facility] 2017-01-28 05:57:00 Test Item Value Reference Range [...] EGFR if Non- >60 mL/min/1.73m\\S\\2 Estimated Glomerular [place] (test Filtration Rate (eGFR) code=EGFRNA) Reference Intervals [...] of chronic kidney failure. CBC WITH AUTO [id number] 05:42:00 Test Item Value Reference Range Comments [...] 1.0-3.0 IG% (test code=IG%) 1.0 % 0.0-0.4 [id number] 05:53:00 Test Item Value Reference Range Comments [...] mL/min/1.73m\\S\\2 EGFR if Non- >60 Estimated Glomerular [place] (test mL/min/1.73m\\S\\2 Filtration Rate (eGFR) code=EGFRNA) Reference [...] of chronic kidney failure. CBC WITH AUTO [id number] 05:27:00 Test Item Value Reference Range Comments [...] 1.0-3.0 IG% (test code=IG%) 1.7 % 0.0-0.4 [id number] 04:36:00 Test Item Value Reference Range Comments [...] mL/min/1.73m\\S\\2 EGFR if Non- >60 Estimated Glomerular [place] (test mL/min/1.73m\\S\\2 Filtration Rate (eGFR) code=EGFRNA) Reference [...] of chronic kidney failure. CBC WITH AUTO [id number] 04:14:00 Test Item Value Reference Range Comments [...] 1.0-3.0 IG% (test code=IG%) 1.9 % 0.0-0.4 [id number] 04:40:00 Test Item Value Reference Range Comments [...] mL/min/1.73m\\S\\2 EGFR if Non- >60 Estimated Glomerular [place] (test mL/min/1.73m\\S\\2 Filtration Rate (eGFR) code=EGFRNA) Reference [...] of chronic kidney failure. CBC WITH AUTO [id number] 04:09:00 Test Item Value Reference Range Comments [...] IG% (test code=IG%) 2.4 % 0.0-0.4 CULTURE, [id number] 06:50:00To start 15mins after 1st cultureSpecimen: BloodCollected: 01/18/2017 04:05 Status: Final Last Updated: 01/23/2017 06: 49 (1) To start 15mins after 1st culture Culture Result (Final) (Final ) No Growth After 5 DaysCULTURE, [id number] 06:50:00Specimen: BloodCollected: 01/18/2017 03:55 Status: Final Last Updated: 01/23/2017 06: 49 Culture Result (Final) (Final) No Growth After 5 DaysCBC WITH AUTO [id number] 04:31:00 Test Item Value Reference Range Comments [...] 1.0-3.0 IG% (test code=IG%) 3.4 % 0.0-0.4 [id number] 04:19:00 Test Item Value Reference Range Comments [...] mL/min/1.73m\\S\\2 EGFR if Non- >60 Estimated Glomerular [place] (test mL/min/1.73m\\S\\2 Filtration Rate (eGFR) code=EGFRNA) Reference [...] of chronic kidney failure. CBC WITH AUTO [id number] 04:57:00 Test Item Value Reference Range Comments [...] (test code=IG%) 4.0 % 0.0-0.4 CBC AUTO [id number] 04:35:00 Test Item Value Reference Range Comments [...] mL/min/1.73m\\S\\2 EGFR if Non- >60 Estimated Glomerular [place] (test mL/min/1.73m\\S\\2 Filtration Rate (eGFR) code=EGFRNA) Reference [...] of chronic kidney failure. CBC WITH AUTO [id number] 05:01:00 Test Item Value Reference Range Comments [...] (test code=IG%) 4.5 % 0.0-0.4 CBC AUTO [id number] 04:56:00 Test Item Value Reference Range Comments [...] mL/min/1.73m\\S\\2 EGFR if Non- >60 Estimated Glomerular [place] (test mL/min/1.73m\\S\\2 Filtration Rate (eGFR) code=EGFRNA) Reference [...] of chronic kidney failure. CBC WITH AUTO [id number] 05:57:00 Test Item Value Reference Range Comments [...] 1.0-3.0 IG% (test code=IG%) 4.8 % 0.0-0.4 [id number] 05:41:00 Test Item Value Reference Range Comments Magnesium (test code=MG) 2.0 mg/dl 1.6-2.3 [id number] 05:41:00 Test Item Value Reference Range Comments [...] mL/min/1.73m\\S\\2 EGFR if Non- >60 Estimated Glomerular [place] (test mL/min/1.73m\\S\\2 Filtration Rate (eGFR) code=EGFRNA) Reference [...] management of chronic kidney failure. LACTIC ACID [id number] 06:43:00 Test Item Value Reference Range Comments LACTATE (test code=LAC) 0.9 mmol/l 0.7-2.0 GLYCOSALATED [id number] 05:41:00 Test Item Value Reference Range Comments Hemoglobin A1C (test 9.06 % 4.3-6.0 code=GLYCO) Mean Plasma Glucose (test 245 mg/dl 90-180 WHEN TEST RESULTS FOR A1C code=MPG) EXCEED 14.0, THE LINEAR LIMIT OF THE INSTRUMENT, THE CALCULATED RESULT FOR THE MEAN GLUCOSE IS NOT RELIABLE. CORONARY [id number] 05:09:00 Test Item Value Reference Range Comments [...] Average vLDL (test code=VLDL) 37 mg/dl 30-60 [id number] 04:51:00 Test Item Value Reference Range Comments Magnesium (test code=MG) 2.1 mg/dl 1.6-2.3 [id number] 04:51:00 Test Item Value Reference Range Comments CPK (test code=CPK) 93 U/L 30-135 LIPASE, [id number] 04:43:00 Test Item Value Reference Range Comments Lipase (test code=LIPA) 116 U/L 8-223 [id number] 04:43:00 Test Item Value Reference Range Comments [...] mL/min/1.73m\\S\\2 EGFR if Non- >60 Estimated Glomerular [place] (test mL/min/1.73m\\S\\2 Filtration Rate (eGFR) code=EGFRNA) Reference [...]
[2019-05-28] MEDS ORDERED: LIDOCAINE 1% MPF 5 ML VIAL ONE ×2 (17:13→17:51)
[2019-05-28] MEDS ORDERED: HYDROCODONE/APAP 10/325 TAB ONE (17:22)
--- NOTE | 2019-05-28 18:35 | ER ---
Nurse's Notes [facility] Name: Nicola Harvey Age: 54 yrs Sex: Male : 1965 Arrival Date: 05/28/2019 Time: 16:33 Bed 17 Private MD: Diagnosis: Cutaneous abscess of abdominal wall Presentation: 05/28 17:01 Presenting complaint: Patient states: abscess to L lower abd x 2 days. Transition of ss care: patient was not received from another setting of care. Onset of symptoms was May 26, 2019. Risk Assessment: Do you want to hurt yourself or someone else? Patient reports no desire to harm self or others. Initial Sepsis Screen: Does the patient meet any 2 criteria? No. Patient's initial sepsis screen is negative. Does the patient have a suspected source of infection? Yes: Skin breakdown/wound. Care prior to arrival: None. 17:01 Method Of Arrival: Ambulatory 17:01 Acuity: ANGE 4 ss Historical: - Allergies: 17:03 Invokana; ss 17:03 Jardiance; ss - PMHx: 17:03 Diabetes - IDDM; Hyperlipidemia; Hypertension; lower back pain with injecitons; ss - Immunization history:: Adult Immunizations up to date. - Social history:: Smoking status: Patient/guardian denies using tobacco. - Ebola Screening: : Patient denies exposure to infectious person Patient denies travel to an Ebola-affected area in the 21 days before illness onset. Screenin:49 Abuse screen: Denies threats or abuse. Denies injuries from another. Nutritional rv screening: No deficits noted. Tuberculosis screening: No symptoms or risk factors identified. Fall Risk None identified. Assessment: 18:00 General: Appears in no apparent distress. comfortable, Behavior is calm, cooperative. rv 18:00 Pain: Complains of pain in left lower quadrant. Neuro: Level of Consciousness is awake, rv alert, obeys commands, Oriented to person, place, time, situation. Derm: Abscess located on left lower quadrant. Vital Signs: 17:03 BP 197 / 75; Pulse 89; Resp 19; Temp 98.2(TE); Pulse Ox 95% on R/A; Weight 156.49 kg; ss Height 5 ft. 10 in. (177.80 cm); Pain 10/10; 18:51 BP 155 / 90; Pulse 86; Resp 16; Pulse Ox 96% on R/A; rv 17:03 Body Mass Index 49.50 (156.49 kg, 177.80 cm) ED Course: 16:33 Patient arrived in ED. mr 17:02 Triage completed. ss 17:03 Arm band placed on left wrist. ss 17:04 Jose G Blackwood FNP-C [facility]. la1 17:04 Dakotah Gandhi MD is Attending Physician. la1 17:17 Norman Goodman, KRUNAL is Primary Nurse. rv 18:00 Patient has correct armband on for positive identification. Placed in gown. Bed in low rv position. Call light in reach. Pulse ox on. NIBP on. 18:34 Harjeet Mcknight MD is Referral Physician. la1 18:48 Assist provider with I \T\ D: of an abscess on left LLQ ABDOMEN. Patient did not have IV rv access during this emergency room visit. Administered Medications: 17:21 Drug: [place] 10 mg-325 mg 1 tabs {Note: rass 0.} Route: PO; rv 18:50 Follow up: Response: No adverse reaction; RASS: Alert and Calm (0) rv 18:30 Drug: Lidocaine (1 %) 10 ml {Note: GIVEN BY KENYA VITALE.} Volume: 5 ml; Route: Infiltration;rv Outcome: 18:34 Discharge ordered by . la1 18:49 Discharged to home ambulatory. rv 18:49 Condition: good 18:49 Discharge instructions given to patient, Instructed on discharge instructions, follow up and referral plans. medication usage, wound care, Demonstrated understanding of instructions, follow-up care, medications, wound care, Prescriptions given X 1. 18:50 Patient left the ED. rv Addendum: 05/31/2019 09:23 Addendum: Culture Results: Positive wound culture. No further action required. Bacteria a a5 sensitive to prescribed antibiotic. Signatures: Katy Yu mr ArriolaHarini, RN RN aa5 No Goss RN RN Jose G Blackwood FNP-C IN FLIGHT REFUELING OPERATOR-Cla1 Norman Goodman RN RN rv
--- NOTE | 2019-05-28 18:37 | EDPHYS ---
Physician Documentation [facility] Name: Nicola Harvey Age: 54 yrs Sex: Male : 1965 Arrival Date: 05/28/2019 Time: 16:33 Bed 17 Private MD: ED Physician Dakotah Gandhi HPI: 05/28 17:19 This 54 yrs old Male presents to ER via Ambulatory with complaints of Abscess. la1 17:19 The patient presents with an abscess of the left lower quadrant. Description: The la1 affected area is moderate sized, localized, draining, fluctuant, raised, tense, warm. Onset: The symptoms/episode began/occurred 2 day(s) ago. Possible cause(s): unknown. Modifying factors: the symptoms are alleviated by nothing, the symptoms are aggravated by nothing. Severity of symptoms: At their worst the symptoms were moderate. Historical: - Allergies: 17:03 Invokana; ss 17:03 Jardiance; ss - PMHx: 17:03 Diabetes - IDDM; Hyperlipidemia; Hypertension; lower back pain with injecitons; ss - Immunization history:: Adult Immunizations up to date. - Social history:: Smoking status: Patient/guardian denies using tobacco. - Ebola Screening: : Patient denies exposure to infectious person Patient denies travel to an Ebola-affected area in the 21 days before illness onset. ROS: 17:20 Constitutional: Negative for fever, chills, and weight loss, Eyes: Negative for injury, la1 pain, redness, and discharge, ENT: Negative for injury, pain, and discharge, Neck: Negative for injury, pain, and swelling, Cardiovascular: Negative for chest pain, palpitations, and edema, Respiratory: Negative for shortness of breath, cough, wheezing, and pleuritic chest pain, Back: Negative for injury and pain, MS/Extremity: Negative for injury and deformity. 17:20 Abdomen/GI: Negative for abdominal pain, nausea, vomiting, and diarrhea, black/tarry stool, rectal pain, rectal bleeding. 17:20 Skin: Positive for abscess. Exam: 17:20 Constitutional: This is a well developed, well nourished patient who is awake, alert, la1 and in no acute distress. Head/Face: Normocephalic, atraumatic. Eyes: Pupils equal round and reactive to light, extra-ocular motions intact. Periorbital areas with no swelling, redness, or edema. ENT: Mucous membranes moist. Neck: Trachea midline, no thyromegaly or masses palpated, and no cervical lymphadenopathy. Supple, full range of motion without nuchal rigidity, or vertebral point tenderness. No Meningismus. Chest/axilla: Normal chest wall appearance and motion. Nontender with no deformity. No lesions are appreciated. Cardiovascular: Regular rate and rhythm with a normal S1 and S2. No gallops, murmurs, or rubs. Normal PMI, no JVD. No pulse deficits. Respiratory: Lungs have equal breath sounds bilaterally, clear to auscultation. No rales, rhonchi or wheezes noted. No increased work of breathing, no retractions or nasal flaring. 17:20 Abdomen/GI: Inspection: obese Bowel sounds: normal, Palpation: abdomen is soft and non-tender, in all quadrants. 17:21 Skin: abscess, that is moderate sized, approximately 3.5 cm(s), of the left lower la1 quadrant, with drainage, with fluctuance, with induration, with surrounding cellulitis, that is very mild, cellulitis, that is minimal, on the left lower quadrant, about 2cm surrounding abscess. Vital Signs: 17:03 BP 197 / 75; Pulse 89; Resp 19; Temp 98.2(TE); Pulse Ox 95% on R/A; Weight 156.49 kg; ss Height 5 ft. 10 in. (177.80 cm); Pain 10/10; 18:51 BP 155 / 90; Pulse 86; Resp 16; Pulse Ox 96% on R/A; rv 17:03 Body Mass Index 49.50 (156.49 kg, 177.80 cm) Procedures: 18:29 I \T\ D: Incision and drainage was performed for an abscess of the left left lower la1 quadrant abdominal wall Prepped with Betadine, Anesthetized with 10 ml's 1% Lidocaine. Incised with #11 blade. Drained moderate amount purulent fluid. bloody fluid. Loculations removed. Cultures obtained. Abscess cavity explored. Packed with sterile gauze, Dressing: sterile 4x4 gauze, the patient tolerated the procedure well. MDM: 17:04 Patient medically screened. la1 18:29 Data reviewed: vital signs. la1 18:30 Data reviewed: nurses notes, and as a result, I will discharge patient. Data la1 interpreted: Pulse oximetry: on room air is 95 %. Interpretation: normal. Counseling: I had a detailed discussion with the patient and/or guardian regarding: the historical points, exam findings, and any diagnostic results supporting the discharge/admit diagnosis, the presence of at least one elevated blood pressure reading (>120/80) during this emergency department visit, lab results, the need for outpatient follow up, a family practitioner, to return to the emergency department if symptoms worsen or persist or if there are any questions or concerns that arise at home. Special discussion: I discussed in detail with the patient the higher chance of wound infection based on his presenting history. Abscess about 3cm with small amount of induration and cellulitis surrounding, patient is not febrile or tachycardic, states BGL has been in the 200s at home. Has good social support and been instructed on signs of worsening of infection/wound, family in room also present for discussion and will also keep a close eye on the wound. Pt states he has an appointment on Friday with his PCP Dr. Mcknight and will have the wound repacked/examined on Friday. Pt is amendable to plan and will immediately return with new or worsening symptoms, otherwise will see Dr. Mcknight in office. . 05/28 18:23 Order name: Wound Culture la1 05/28 17:19 Order name: Incision \T\ Drainage Setup; Complete Time: 17:22 la1 Administered Medications: 17:21 Drug: [place] 10 mg-325 mg 1 tabs {Note: rass 0.} Route: PO; rv 18:50 Follow up: Response: No adverse reaction; RASS: Alert and Calm (0) rv 18:30 Drug: Lidocaine (1 %) 10 ml {Note: GIVEN BY KENAY VITALE.} Volume: 5 ml; Route: Infiltration;rv Disposition: 05/28/19 18:34 Discharged to Home. Impression: Cutaneous abscess of abdominal wall. - Condition is Stable. - Discharge Instructions: Skin Abscess, Incision and Drainage, Wound Packing. - Prescriptions for Bactrim DS 800- 160 mg Oral Tablet - take 1 tablet by ORAL route every 12 hours for 7 days; 14 tablet. - Medication Reconciliation Form, Thank You Letter, Antibiotic Education form. - Follow up: Harjeet Mcknight MD; When: 2 - 3 days; Reason: Wound Recheck, Recheck today's complaints, Re-evaluation by your physician. Follow up: Emergency Department; Reason: fever, worsening appearance of wound, new or worsening pain. - Problem is new. - Symptoms have improved. Addendum: 05/31/2019 06:58 Co-signature as Attending Physician, Dakotah Gandhi MD I agree with the assessment and k dr plan of care. Signatures: Dispatcher [employer] EDDE Dakotah Gandhi MD MD [facility] No Goss RN RN ss Jose G Blackwood, PAWN BROKER-C PAWN BROKER-Cla1 Norman Goodman, RN RN rv Corrections: (The following items were deleted from the chart) 05/28 18:24 17:21 Skin: abscess, that is moderate sized, of the left lower quadrant, with drainage, la1 with fluctuance, with induration, with surrounding cellulitis, that is very mild, la1 18:50 18:34 05/28/2019 18:34 Discharged to Home. Impression: Cutaneous abscess of abdominal rv wall. Condition is Stable. Forms are Medication Reconciliation Form, Thank You Letter, Antibiotic Education, Prescription Opioid Use. Follow up: Harjeet Mcknight; When: 2 - 3 days; Reason: Wound Recheck, Recheck today's complaints, Re-evaluation by your physician. Follow up: Emergency Department; Reason: fever, worsening appearance of wound, new or worsening pain. Problem is new. Symptoms have improved. la1
[2019-05-28 19:51] VITALS: BP 197/75; TEMP 98.2; O2SAT 95
== END 2019-05-28 18:50 | disposition home or self-care (01) ==
LOC: ER 16:31
PROC: 0J980ZZ Drainage of Abdomen Subcutaneous Tissue and Fascia, Open Approach (ICD-10-PCS; principal; 2019-05-28)
DX: L02.211 Cutaneous abscess of abdominal wall (principal); I10 Essential (primary) hypertension; Z88.8 Allergy status to other drugs, medicaments and biological substances
CPT/HCPCS: 87070; 87077; 87186; 87205; 99284

== ENCOUNTER 2019-05-29 17:21 | Inpatient (IN) | payer BC ==
--- OUTSIDE RECORDS SUMMARY | 2019-05-29 17:25 | XMS REPORT ---
:1965 [facility] [address] [place] [address] [address] [place] [address] Care Team Providers Name Role Phone VIANNEYDANIKARA Unavailable Unavailable TAMMY BETANCOURT Unavailable Unavailable Problems This patient has no known problems. Allergies, Adverse Reactions, Alerts This patient has no known allergies or adverse reactions. Medications This patient has no known medications. Results Test Description Test Time Test Comments Text Results Atomic Results Result Comments [facility] 2017-01-28 05:57:00 Test Item Value Reference [...] EGFR if Non- >60 mL/min/1.73m\\S\\2 Estimated Glomerular Yemeni (test Filtration Rate (eGFR) code=EGFRNA) Reference Intervals [...] of chronic kidney failure. CBC WITH AUTO [id number] 05:42:00 Test Item Value Reference Range Comments [...] 1.0-3.0 IG% (test code=IG%) 1.0 % 0.0-0.4 [id number] 05:53:00 Test Item Value Reference Range Comments [...] mL/min/1.73m\\S\\2 EGFR if Non- >60 Estimated Glomerular Yemeni (test mL/min/1.73m\\S\\2 Filtration Rate (eGFR) code=EGFRNA) Reference [...] of chronic kidney failure. CBC WITH AUTO [id number] 05:27:00 Test Item Value Reference Range Comments [...] 1.0-3.0 IG% (test code=IG%) 1.7 % 0.0-0.4 [id number] 04:36:00 Test Item Value Reference Range Comments [...] mL/min/1.73m\\S\\2 EGFR if Non- >60 Estimated Glomerular Yemeni (test mL/min/1.73m\\S\\2 Filtration Rate (eGFR) code=EGFRNA) Reference [...] of chronic kidney failure. CBC WITH AUTO [id number] 04:14:00 Test Item Value Reference Range Comments [...] 1.0-3.0 IG% (test code=IG%) 1.9 % 0.0-0.4 [id number] 04:40:00 Test Item Value Reference Range Comments [...] mL/min/1.73m\\S\\2 EGFR if Non- >60 Estimated Glomerular Yemeni (test mL/min/1.73m\\S\\2 Filtration Rate (eGFR) code=EGFRNA) Reference [...] of chronic kidney failure. CBC WITH AUTO [id number] 04:09:00 Test Item Value Reference Range Comments [...] IG% (test code=IG%) 2.4 % 0.0-0.4 CULTURE, [id number] 06:50:00To start 15mins after 1st cultureSpecimen: BloodCollected: 01/18/2017 04:05 Status: Final Last Updated: 01/23/2017 06: 49 (1) To start 15mins after 1st culture Culture Result (Final) (Final ) No Growth After 5 DaysCULTURE, [id number] 06:50:00Specimen: BloodCollected: 01/18/2017 03:55 Status: Final Last Updated: 01/23/2017 06: 49 Culture Result (Final) (Final) No Growth After 5 DaysCBC WITH AUTO [id number] 04:31:00 Test Item Value Reference Range Comments [...] 1.0-3.0 IG% (test code=IG%) 3.4 % 0.0-0.4 [id number] 04:19:00 Test Item Value Reference Range Comments [...] mL/min/1.73m\\S\\2 EGFR if Non- >60 Estimated Glomerular Yemeni (test mL/min/1.73m\\S\\2 Filtration Rate (eGFR) code=EGFRNA) Reference [...] of chronic kidney failure. CBC WITH AUTO [id number] 04:57:00 Test Item Value Reference Range Comments [...] (test code=IG%) 4.0 % 0.0-0.4 CBC AUTO [id number] 04:35:00 Test Item Value Reference Range Comments [...] mL/min/1.73m\\S\\2 EGFR if Non- >60 Estimated Glomerular Yemeni (test mL/min/1.73m\\S\\2 Filtration Rate (eGFR) code=EGFRNA) Reference [...] of chronic kidney failure. CBC WITH AUTO [id number] 05:01:00 Test Item Value Reference Range Comments [...] (test code=IG%) 4.5 % 0.0-0.4 CBC AUTO [id number] 04:56:00 Test Item Value Reference Range Comments [...] mL/min/1.73m\\S\\2 EGFR if Non- >60 Estimated Glomerular Yemeni (test mL/min/1.73m\\S\\2 Filtration Rate (eGFR) code=EGFRNA) Reference [...] of chronic kidney failure. CBC WITH AUTO [id number] 05:57:00 Test Item Value Reference Range Comments [...] 1.0-3.0 IG% (test code=IG%) 4.8 % 0.0-0.4 [id number] 05:41:00 Test Item Value Reference Range Comments Magnesium (test code=MG) 2.0 mg/dl 1.6-2.3 [id number] 05:41:00 Test Item Value Reference Range Comments [...] mL/min/1.73m\\S\\2 EGFR if Non- >60 Estimated Glomerular [place]i (test mL/min/1.73m\\S\\2 Filtration Rate (eGFR) code=EGFRNA) Reference [...] management of chronic kidney failure. LACTIC ACID [id number] 06:43:00 Test Item Value Reference Range Comments LACTATE (test code=LAC) 0.9 mmol/l 0.7-2.0 GLYCOSALATED [id number] 05:41:00 Test Item Value Reference Range Comments Hemoglobin A1C (test 9.06 % 4.3-6.0 code=GLYCO) Mean Plasma Glucose (test 245 mg/dl 90-180 WHEN TEST RESULTS FOR A1C code=MPG) EXCEED 14.0, THE LINEAR LIMIT OF THE INSTRUMENT, THE CALCULATED RESULT FOR THE MEAN GLUCOSE IS NOT RELIABLE. CORONARY [id number] 05:09:00 Test Item Value Reference Range Comments [...] Average vLDL (test code=VLDL) 37 mg/dl 30-60 [id number] 04:51:00 Test Item Value Reference Range Comments Magnesium (test code=MG) 2.1 mg/dl 1.6-2.3 [id number] 04:51:00 Test Item Value Reference Range Comments CPK (test code=CPK) 93 U/L 30-135 LIPASE, [id number] 04:43:00 Test Item Value Reference Range Comments Lipase (test code=LIPA) 116 U/L 8-223 [id number] 04:43:00 Test Item Value Reference Range Comments [...] mL/min/1.73m\\S\\2 EGFR if Non- >60 Estimated Glomerular Yemeni (test mL/min/1.73m\\S\\2 Filtration Rate (eGFR) code=EGFRNA) Reference [...]
[2019-05-29 18:43] LABS: Absolute Lymphocytes (CBC) 1.2 K/uL (0.7-4.9); Basophils % 0.8 % (0-1.3); Lymphocytes % 13.3 % (15.3-44.8); MPV 7.9 fL (7.6-11.3); RBC Red Blood Cell Count 4.93 M/uL (4.33-5.43)
[2019-05-29] MEDS ORDERED: NA CHLORIDE 0.9% 1,000 ML ONE (18:54)
[2019-05-29] MEDS ORDERED: ACETAMINOPHEN 500 MG TAB ONE (18:54)
[2019-05-29 19:01] LABS: Albumin 3.5 g/dL (3.4-5.0); Bilirubin Direct 0.2 mg/dL (0-0.2); Bilirubin Total 0.6 mg/dL (0.2-1.0); Potassium 4.2 mmol/L (3.5-5.1); Protein, Total 8.2 g/dL (6.4-8.2)
[2019-05-29] MEDS ORDERED: NA CHLORIDE 0.9% 250 ML ONE (20:17)
[2019-05-29] MEDS ORDERED: VANCOMYCIN 1 GM/VIAL ONE (20:17)
[2019-05-29] MEDS ORDERED: PIPER/TAZO/NS 3.375gm 3.375 GM/100 ML BAG ONE (20:18)
--- NOTE | 2019-05-29 20:33 | RAD REPORT ---
EXAM DESCRIPTION: CT - Abdomen Pelvis W Contrast - 05/29/2019 8:14 pm CLINICAL HISTORY: cellulitis left lower abdomen, fever and chills COMPARISON: Abdomen Pelvis W Contrast dated 04/08/2019 TECHNIQUE: Biphasic, helical CT imaging of the abdomen and pelvis was performed following 100 ml non -ionic IV contrast. No oral contrast. All CT scans are performed using dose optimization technique as appropriate and may include automated exposure control or mA/KV adjustment according to patient size. FINDINGS: No suspicious findings in the lung bases. Diffuse fatty infiltration present in the liver. No focal liver lesions seen. Spleen and pancreas jorge w no suspicious findings. Multiple gallstones are present. No active gallbladder process seen. No renato iary tree dilatation. Symmetric renal function is seen with no hydronephrosis or suspicious renal mass. No pyelonephritis o r acute parenchymal process. No bladder abnormalities. No adrenal abnormalities. No dilated bowel loops or bowel wall thickening. No intraperitoneal free air, free fluid or inflamma tory stranding. There is skin thickening and subcutaneous inflammatory stranding in the left lower ab domen presumed to be the site of superficial abscess drainage. No identifiable fluid collection. No a ir in the soft tissues. No hernia, mass or bulky lymphadenopathy. No suspicious bony findings. IMPRESSION: Skin thickening and edema in the left lower quadrant with adjacent subcutaneous fatty ti ssue stranding. This is presumed to be the site of cellulitis and superficial abscess drainage. No fluid collection in the subcutaneous fatty tissues. No abnormal air collection. No acute peritoneal or retroperitoneal process. Nonacute findings detailed above.
--- NOTE | 2019-05-29 20:42 | ER ---
Nurse's Notes [facility] Name: Nicola Harvey Age: 54 yrs Sex: Male : 1965 Arrival Date: 05/29/2019 Time: 17:24 Bed 14 Private MD: Diagnosis: Cellulitis of abdominal wall-left lower quadrant Presentation: 05/29 17:35 Presenting complaint: Patient states: had an abscess lanced last night and was told [facility] that if I have any fever and chills to come back. I woke up feeling nauseous and now I have a fever and chills. Transition of care: patient was not received from another setting of care. Onset of symptoms was May 29, 2019. Risk Assessment: Do you want to hurt yourself or someone else? Patient reports no desire to harm self or others. Initial Sepsis Screen: Does the patient meet any 2 criteria? HR > 90 bpm. No. Patient's initial sepsis screen is negative. Does the patient have a suspected source of infection? No. Patient's initial sepsis screen is negative. Care prior to arrival: None. 17:35 Method Of Arrival: Ambulatory [facility] 17:35 Acuity: ANGE 3 jl7 Triage Assessment: 17:40 General: Appears in no apparent distress. uncomfortable, ill, Behavior is calm, jl7 cooperative, appropriate for age. Pain: Complains of pain in LLQ abdominal incision Pain currently is 8 out of 10 on a pain scale. Neuro: Level of Consciousness is awake, alert, obeys commands. Historical: - Allergies: 17:40 Invokana; jl7 17:40 Jardiance; jl7 - Home Meds: 17:40 amlodipine 5 mg tab 1 tab once daily [Active]; glimepiride 4 mg Oral tab 1 tab BID jl7 [Active]; lisinopril 40 mg Oral tab 1 tab once daily [Active]; metformin 1,000 mg Oral tab 1 tab 2 times per day [Active]; Metoprolol Tartrate Oral [Active]; Bydureon subcutaneous subcutaneous [Active]; Humulin R 100 unit/mL soln [Active]; - PMHx: 17:40 Diabetes - IDDM; Hyperlipidemia; Hypertension; lower back pain with injecitons; jl7 - Immunization history:: Adult Immunizations up to date. - Social history:: Smoking status: Patient/guardian denies using tobacco. - Ebola Screening: : No symptoms or risks identified at this time. Screenin:40 Abuse screen: Denies threats or abuse. Denies injuries from another. Nutritional bp screening: No deficits noted. Tuberculosis screening: No symptoms or risk factors identified. Fall Risk None identified. Assessment: 18:16 Reassessment: CODE SEPSIS CALLED. bp 18:25 Reassessment: HECTOR, PHLEBOTOMY AT B/S. bp Vital Signs: 17:40 BP 161 / 83; Pulse 102; Resp 17 S; Temp 100.9(O); Pulse Ox 99% on R/A; Weight 156.49 kg jl7 (R); Height 5 ft. 10 in. (177.80 cm); Pain 8/10; 19:00 Temp 98.8; sg 19:05 BP 154 / 78; Pulse 92; Resp 23; Pulse Ox 98% ; bp 20:05 BP 142 / 70; Pulse 88; Resp 20; Temp 98.8; Pulse Ox 99% on R/A; sg 21:00 BP 140 / 77; Pulse 88; Resp 21 S; Temp 98.9; Pulse Ox 99% on R/A; sg 22:00 BP 132 / 50; Pulse 83; Resp 20; Temp 98.8; Pulse Ox 98% on R/A; sg 01/ 01:34 BP 145 / 78; Pulse 100; Resp 20; Temp 100.5(O); Pulse Ox 100% ; Pain 6/10; sg 05/29 17:40 Body Mass Index 49.50 (156.49 kg, 177.80 cm) [facility] ED Course: 05/29 17:24 Patient arrived in ED. mr 17:37 Triage completed. [facility] 17:40 Arm band placed on right wrist. [facility] 17:40 Patient has correct armband on for positive identification. Placed in gown. Bed in low bp position. Call light in reach. Side rails up X2. Adult w/ patient. 17:45 Ronnie Marquez, RN is Primary Nurse. bp 17:45 Weston Fonseca PA is PHCP. cp 17:45 Weston Carty MD is Attending Physician. cp 18:30 Inserted saline lock: 20 gauge in right antecubital area, using aseptic technique. bp Blood collected. 19:11 Primary Nurse role handed off by Ronnie Marquez, KRUNAL sg 19:11 Leonid Sosa, RN is Primary Nurse. sg 20:15 CT completed. Patient tolerated procedure well. Patient moved back from CT. bq 20:16 CT Abd/Pelvis - IV Contrast Only In Process Unspecified. EDMS 20:40 Latoya Mcknight MD is Hospitalizing Provider. cp 23:40 Dressings: non-adherent dressing x 1 left lower quadrant 1/4 in Iodoform inserted using hospital policy. Wound care: to puncture located on left lower quadrant was cleaned with Hibiclens, Patient tolerated well. 05/30 01:47 No provider procedures requiring assistance completed. Patient admitted, IV remains in sg place. intact, No redness/swelling at site. Administered Medications: 05/29 18:17 Not Given (Physician Discretion): NS 0.9% 1000 ml IV at 1 bolus Per protocol; 1000 mL cp bolus 18:30 Drug: Tylenol 1000 mg Route: PO; bp 19:00 Follow up: Temp 98.8; Response: No adverse reaction sg 18:40 Drug: NS 0.9% (30 ml/kg) 30 ml/kg Route: IV; Rate: bolus; Site: right antecubital; bp 05/30 05:56 Follow up: Response: No adverse reaction; IV Intake: 2000ml sg 05/29 20:35 Drug: Zosyn 3.375 grams Route: IVPB; Infused Over: 60 mins; Site: right antecubital; sg 21:35 Follow up: Response: No adverse reaction; IV Status: Completed infusion sg 21:48 Drug: vancoMYCIN 1 grams Route: IVPB; Infused Over: 2 hrs; Site: right antecubital; sg 05/30 01:38 Drug: Tylenol 1000 mg Route: PO; sg Intake: 05:56 IV: 2000ml; Total: 2000ml. sg Output: 01:34 Urine: 700ml (Voided); Total: 700ml. sg Outcome: 05/29 20:41 Decision to Hospitalize by Provider. cp 05/30 01:45 Admitted to Med/surg accompanied by nurse, via wheelchair, room 229, with chart, Report sg called to nurse for 229 Condition: good Instructed on the need for admit, safety practices, Demonstrated understanding of instructions. 02:00 Patient left the ED. sg Signatures: Dispatcher [employer] Leonid Damon, RN RN sg Gigi, Katy mr Tawanna, Weston Madrigal PA PA cp Leal, Jahala RN RN jl7 Ronnie Marquez RN RN bp
--- NOTE | 2019-05-29 20:43 | EDPHYS ---
Physician Documentation [facility] Name: Nicola Harvey Age: 54 yrs Sex: Male : 1965 Arrival Date: 05/29/2019 Time: 17:24 Bed 14 Private MD: ED Physician Weston Carty HPI: 05/29 18:00 This 54 yrs old Male presents to ER via Ambulatory with complaints of Fever. cp 18:00 The patient reports fever, with an emergency department temperature of 100.9 degrees cp Fahrenheit. Onset: The symptoms/episode began/occurred today. 18:00 Associated signs and symptoms: Pertinent positives: abdominal pain, chills, Pertinent cp negatives: altered mental status, chest pain, cough, diarrhea, headache, shortness of breath. 18:00 The patient has been recently seen at the [facility] Emergency cp Department, yesterday, had I\T\D of abscess of left lower abdominal wall. Historical: - Allergies: 17:40 Invokana; jl7 17:40 Jardiance; jl7 - Home Meds: 17:40 amlodipine 5 mg tab 1 tab once daily [Active]; glimepiride 4 mg Oral tab 1 tab BID jl7 [Active]; lisinopril 40 mg Oral tab 1 tab once daily [Active]; metformin 1,000 mg Oral tab 1 tab 2 times per day [Active]; Metoprolol Tartrate Oral [Active]; Bydureon subcutaneous subcutaneous [Active]; Humulin R 100 unit/mL soln [Active]; - PMHx: 17:40 Diabetes - IDDM; Hyperlipidemia; Hypertension; lower back pain with injecitons; jl7 - Immunization history:: Adult Immunizations up to date. - Social history:: Smoking status: Patient/guardian denies using tobacco. - Ebola Screening: : No symptoms or risks identified at this time. ROS: 18:10 Constitutional: Positive for chills, fever, Negative for poor PO intake. cp 18:10 Eyes: Negative for injury, pain, redness, and discharge. cp 18:10 Cardiovascular: Negative for chest pain. 18:10 Respiratory: Negative for cough, shortness of breath, wheezing. 18:10 Abdomen/GI: Positive for abdominal pain, Negative for vomiting, diarrhea, constipation. 18:10 Back: Negative for pain at rest, pain with movement, radiated pain. 18:10 Skin: Positive for abscess, cellulitis, of the left lower quadrant of abdomen. 18:10 Neuro: Negative for altered mental status, headache, weakness. 18:10 All other systems are negative. Exam: 18:15 Constitutional: The patient appears in no acute distress, alert, awake, cp non-diaphoretic, non-toxic, well developed, well nourished, obese. 18:15 Head/Face: Normocephalic, atraumatic. cp 18:15 Eyes: Periorbital structures: appear normal, Conjunctiva: normal, no exudate, no injection, Sclera: no appreciated abnormality, Lids and lashes: appear normal, bilaterally. 18:15 ENT: External ear(s): are unremarkable, Nose: is normal, Mouth: Lips: moist, Oral mucosa: pink and intact, moist, Posterior pharynx: Airway: no evidence of obstruction, patent. 18:15 Chest/axilla: Inspection: normal, Palpation: is normal, no crepitus, no tenderness. 18:15 Cardiovascular: Rate: tachycardic, Edema: ankle edema, that is mild. 18:15 Respiratory: the patient does not display signs of respiratory distress, Respirations: normal, no use of accessory muscles, no retractions, no splinting, no tachypnea, labored breathing, is not present, Breath sounds: are clear throughout, no decreased breath sounds, no stridor, no wheezing. 18:15 Abdomen/GI: Inspection: obese Bowel sounds: active, all quadrants, Palpation: soft, in all quadrants, moderate abdominal tenderness, in the left lower quadrant, rebound tenderness, is not appreciated, voluntary guarding, is elicited in the left lower quadrant. 18:15 Skin: cellulitis, that is moderate, irregular, on the left lower quadrant of abdomen, Wound recheck: Abscess: decreased discharge, the packing is in place. 18:15 Neuro: Orientation: to person, place \T\ time. Mentation: is normal, Motor: moves all fours, strength is normal. 18:59 ECG was reviewed by the Attending Physician. cp Vital Signs: 17:40 BP 161 / 83; Pulse 102; Resp 17 S; Temp 100.9(O); Pulse Ox 99% on R/A; Weight 156.49 kg jl7 (R); Height 5 ft. 10 in. (177.80 cm); Pain 8/10; 19:00 Temp 98.8; sg 19:05 BP 154 / 78; Pulse 92; Resp 23; Pulse Ox 98% ; bp 20:05 BP 142 / 70; Pulse 88; Resp 20; Temp 98.8; Pulse Ox 99% on R/A; sg 21:00 BP 140 / 77; Pulse 88; Resp 21 S; Temp 98.9; Pulse Ox 99% on R/A; sg 22:00 BP 132 / 50; Pulse 83; Resp 20; Temp 98.8; Pulse Ox 98% on R/A; sg 01 01:34 BP 145 / 78; Pulse 100; Resp 20; Temp 100.5(O); Pulse Ox 100% ; Pain 6/10; sg 05/29 17:40 Body Mass Index 49.50 (156.49 kg, 177.80 cm) 7 MDM: 05/29 17:50 Patient medically screened. [facility] 18:25 Physician consultation: A Juan Luis AMBROSE was called at 18:25, was contacted at 18:26, regarding admission, to the medical/surgical unit. patient's condition. 19:00 Differential diagnosis: sepsis, abdominal abscess, cellulitis. 20:40 Data reviewed: vital signs, nurses notes, lab test result(s), radiologic studies, CT cp scan, and as a result, I will admit patient. 20:40 Counseling: I had a detailed discussion with the patient and/or guardian regarding: the historical points, exam findings, and any diagnostic results supporting the discharge/admit diagnosis, lab results, radiology results, the need for further work-up and treatment in the hospital. Response to treatment: the patient's symptoms have mildly improved after treatment. 05/29 18:11 Order name: Basic Metabolic Panel; Complete Time: 19:45 05/29 19:45 Interpretation: Normal except: NA 135; GLUC 243; GFR 70. cp 05/29 18:11 Order name: CBC with Diff; Complete Time: 19:45 cp 05/29 19:46 Interpretation: Normal except: HGB 13.1; MCH 26.5; RDW 16.1; LUCAS% 76.1; LYM% 13.3. cp 05/29 18:11 Order name: LFT's; Complete Time: 19:45 cp 05/29 18:11 Order name: Magnesium; Complete Time: 19:45 cp 05/29 18:11 Order name: Blood Culture Adult (2) cp 05/29 18:11 Order name: Procalcitonin; Complete Time: 19:45 cp 05/29 18:11 Order name: Lactate; Complete Time: 19:45 cp 05/29 18:11 Order name: Urine Microscopic Only cp 05/29 18:30 Order name: CT Abd/Pelvis - IV Contrast Only; Complete Time: 20:39 cp 05/29 20:39 Interpretation: Report reviewed. cp 05/29 22:16 Order name: Urine Dipstick--Ancillary (enter results) sg 05/29 18:11 Order name: EKG; Complete Time: 18:12 cp 05/29 18:11 Order name: Cardiac monitoring; Complete Time: 18:40 cp 05/29 18:11 Order name: EKG - Nurse/Tech; Complete Time: 18:40 cp 05/29 18:11 Order name: IV Saline Lock; Complete Time: 18:40 cp 05/29 18:11 Order name: Labs collected and sent; Complete Time: 18:40 cp 05/29 18:11 Order name: O2 Per Protocol; Complete Time: 18:40 cp 05/29 18:11 Order name: O2 Sat Monitoring; Complete Time: 18:40 cp 05/29 18:11 Order name: Urine Dipstick-Ancillary (obtain specimen); Complete Time: 22:13 cp EC:59 Rate is 88 beats/min. Rhythm is regular. RI interval is normal. QRS interval is cp prolonged at 106 msec. QT interval is normal. T waves are Inverted in lead aVR. Interpreted by me. Reviewed by me. Administered Medications: 18:17 Not Given (Physician Discretion): NS 0.9% 1000 ml IV at 1 bolus Per protocol; 1000 mL cp bolus 18:30 Drug: Tylenol 1000 mg Route: PO; bp 19:00 Follow up: Temp 98.8; Response: No adverse reaction sg 18:40 Drug: NS 0.9% (30 ml/kg) 30 ml/kg Route: IV; Rate: bolus; Site: right antecubital; bp 05/30 05:56 Follow up: Response: No adverse reaction; IV Intake: 2000ml sg 05/29 20:35 Drug: Zosyn 3.375 grams Route: IVPB; Infused Over: 60 mins; Site: right antecubital; 21:35 Follow up: Response: No adverse reaction; IV Status: Completed infusion sg 21:48 Drug: vancoMYCIN 1 grams Route: IVPB; Infused Over: 2 hrs; Site: right antecubital; sg 05/30 01:38 Drug: Tylenol 1000 mg Route: PO; sg Disposition: 05/29/19 20:41 Hospitalization ordered by Latoya Mcknight for Inpatient Admission. Preliminary diagnosis is Cellulitis of abdominal wall - left lower quadrant. - Bed requested for Telemetry/MedSurg (Inpatient). - Status is Inpatient Admission. sg - Condition is Stable. - Problem is new. - Symptoms have improved. UTI on Admission? No Addendum: 05/31/2019 09:51 Co-signature as Attending Physician, Weston Carty MD I agree with the assessment and c blanco plan of care. Signatures: Dispatcher [employer] Maira Álvarez RN RN dm5 Leonid Sosa RN RN sg Weston Carty MD MD cha Page, Corey, PA PA cp Kirk Bill RN RN jl7 Ronnie Marquez RN RN bp Corrections: (The following items were deleted from the chart) 05/30 01:34 05/29 20:41 Hospitalization Ordered by A Juan Luis AMBROSE for Inpatient Admission. Preliminary dm5 diagnosis is Cellulitis of abdominal wall - left lower quadrant. Bed requested for Telemetry/MedSurg (Inpatient). Status is Inpatient Admission. Condition is Stable. Problem is new. Symptoms have improved. UTI on Admission? No. cp 05/30 02:00 01:34 05/29/2019 20:41 Hospitalization Ordered by A Juan Luis AMBROSE for Inpatient Admission. sg Preliminary diagnosis is Cellulitis of abdominal wall - left lower quadrant. Bed requested for Telemetry/MedSurg (Inpatient). Status is Inpatient Admission. Condition is Stable. Problem is new. Symptoms have improved. UTI on Admission? No. dm5
[2019-05-29 21:30] LABS: Urine Bacteria NONE SEEN /HPF (NONE SEEN); Urine RBC NONE SEEN /HPF (NONE SEEN)
[2019-05-29 21:31] LABS: Urine Culture Reflex Order NOT NEEDED
[2019-05-29 22:52] LABS: Urine Blood TRACE (NEG); Urine Glucose 1+ (NEG); Urine Protein 2+ (NEG); Urine Specific Gravity >1.030 (1.005-1.030); Urine pH 5.5 (5.0-7.0)
[2019-05-30] MEDS ORDERED: ACETAMINOPHEN 500 MG TAB ONE (01:38)
[2019-05-30] MEDS ORDERED: PIPER/TAZO/NS 3.375gm 3.375 GM/100 ML BAG IVPB SCH ×3 (01:47→09:00)
[2019-05-30] MEDS ORDERED: ACETAMINOPHEN 500 MG TAB PO PRN ×2 (01:47→03:14)
[2019-05-30] MEDS ORDERED: ONDANSETRON 4 MG/2 ML VIAL IV PRN ×2 (01:47→03:19)
[2019-05-30] MEDS ORDERED: Pharmacy Consult 1 EA XX PRN (01:47)
[2019-05-30] MEDS ORDERED: D50W 25 GM/50 ML SYRINGE/VIAL IV PRN ×2 (02:57→09:31)
[2019-05-30] MEDS ORDERED: GLUCAGON 1 MG/VIAL IM PRN ×2 (02:57→09:31)
[2019-05-30 02:59] VITALS: BMI 48.9
[2019-05-30] MEDS ORDERED: PIPER/TAZO/NS 3.375gm 3.375 GM/100 ML BAG ONE (04:29)
[2019-05-30 06:18] LABS: Absolute Lymphocytes (CBC) 0.8 K/uL (0.7-4.9); Basophils % 0.6 % (0-1.3); Lymphocytes % 10.7 % (15.3-44.8); MPV 7.9 fL (7.6-11.3); RBC Red Blood Cell Count 4.73 M/uL (4.33-5.43)
[2019-05-30 06:21] LABS: Potassium 4.5 mmol/L (3.5-5.1)
[2019-05-30] MEDS ORDERED: ASPIRIN 325 MG TAB ONE (06:59)
[2019-05-30] MEDS: INSULIN -REGULAR HUMAN 50 UNIT/0.5 ML ML SQ SCH ×4 (09:05→20:25)
[2019-05-30] MEDS: SODIUM CHLORIDE 0.9% 10ML INJ IV SCH ×2 (09:06→20:24)
[2019-05-30] MEDS ORDERED: VANCOMYCIN/NS 1 gm 1 GM/250 ML BAG IVPB SCH (09:30)
[2019-05-30] MEDS ORDERED: ENOXAPARIN 40 MG/0.4 ML SQ ONE (10:00)
[2019-05-30] MEDS ORDERED: SMZ./TMP. 800/160 MG TABLET PO ONE (10:00)
[2019-05-30] MEDS ORDERED: HOME MED 1 EA UNK (Lisinopril [Lisinopril] 40 MG) PO SCH (10:00)
[2019-05-30] MEDS ORDERED: INSULIN GLARGINE 100 UNITS/ML SQ ONE (11:00)
[2019-05-30] MEDS: METOPROLOL TAR 50 MG TAB PO SCH ×2 (11:32→20:24)
[2019-05-30] MEDS: AMLODIPINE 5 MG TAB PO SCH ×2 (11:32→20:23)
--- NOTE | 2019-05-30 12:48 | EKG ---
Test Date: 2019-05-29 Test Time: 18:50:35 Dehairer: CHARLETTE MEASUREMENT RESULTS: Intervals: Rate: 88 FL: 144 QRSD: 106 QT: 350 QTc: 423 Woodson: P: 44 FL: 144 QRS: 81 T: 38 INTERPRETIVE STATEMENTS: Normal sinus rhythm Incomplete right bundle branch block Cannot rule out Anterior infarct, age undetermined Abnormal ECG Compared to ECG 04/11/2019 14:12:48 Myocardial infarct finding now present Sinus tachycardia no longer present Electronically Signed On 05-30-19 12:47:34 MOBILE PHLEBOTOMIST by Ifeanyi Blood
[2019-05-30] MEDS ORDERED: VANCOMYCIN/NS 1 gm 1 GM/250 ML BAG IVPB ONE (13:00)
[2019-05-30] MEDS: GLIMEPIRIDE 2 MG TABLET PO SCH (16:37)
[2019-05-30] MEDS: METFORMIN ER 500 MG TAB PO SCH (16:38)
[2019-05-30] MEDS: SMZ./TMP. 800/160 MG TABLET PO SCH (20:23)
[2019-05-30] MEDS: DOXAZOSIN 2 MG TAB PO SCH (20:24)
[2019-05-30] MEDS ORDERED: HOME MED 1 EA UNK (Glimepiride [Glimepiride] 1 TAB) PO SCH (21:00)
[2019-05-30] MEDS ORDERED: DOXAZOSIN 1 MG TAB PO SCH (21:00)
[2019-05-30] MEDS ORDERED: INFLUENZA VACCINE (for 3y+) 0.5 ML DOSE IMVAC ONE (21:00)
--- NOTE | 2019-05-30 22:17 | HP ---
Date of Admission: 05/30/2019 Chief Complaint: Fever and pain. History Of Present Illness: This is a 54-year-old male patient who started to have painful area of s welling over left lower quadrant of anterior abdominal wall on Friday of this week. This area contin ued to get bigger so on 05/28/2019, he came into emergency room. In the ER, he was diagnosed as havi ng abscess of the left lower anterior abdominal wall and this was drained in the emergency room and w ound was packed, culture was sent, and he was sent home with Bactrim DS 1 tablet twice a day for 1 we ek with the instruction to come to the emergency room if he starts to have any fever. Yesterday, he came to emergency room because he started to have fever and chills. After he was evaluated he was ad mitted to the hospital. Patient was given IV antibiotic, vancomycin in the emergency room along with Zosyn. Allergies: NO KNOWN ALLERGIES. Medications: List reviewed. Review of Systems: Constitutional: As mentioned above. Dermatology: As mentioned. Above all other systems reviewed and negative. Past Surgical History: Significant for sinus surgery. Family History: Significant for colon cancer, prostate cancer. Social History: Negative for smoking, alcohol use. Past Medical History: Hypertension, cervical spinal stenosis, obstructive sleep apnea, depression, h yperlipidemia, type 2 diabetes mellitus which is uncontrolled and lumbar radiculopathy. Physical Examination: Vital Signs: When he first came into emergency room temperature 100.9, pulse 102, respiratory rate 1 7, blood pressure 161/83, oxygen saturation 98%. Height 5 feet 10 inches, weight 341 pounds. General: Awake, alert, oriented, not in distress. HEENT: Head atraumatic, normocephalic. Conjunctivae nonerythematous. Sclerae white. Mouth, no thr ush or edema noted. Ears/Nose, no mass, lesion, discharge noted. Neck: Supple. No JVD, lymph nodes, bruit, thyromegaly noted. Lungs: Bilateral good equal air entry. Clear to auscultation. No rhonchi. No rales. Heart: Normal heart sounds, no murmur or gallop. Abdomen: Abdomen soft. Bowel sounds normal. No guarding, rigidity, distention. No hepatosplenomeg mary. No bruit. Left lower quadrant of abdomen shows about 3 cm to 4 cm area of induration and in th e center of it has a packing present. Has a large area of surrounding skin which is pink and warm. This indurated area is tender to touch. No active bleeding or active discharge noted. Extremities: Bilateral trace leg edema, chronic, unchanged. Skin: No rash, ulcer, cellulitis. Lymphatics: No lymph node enlargement in neck, supraclavicular, infraclavicular region. Neuro: No focal neurological deficit. Chest: Unremarkable. External Genitalia: Deferred. Rectal: Deferred. Laboratory Data: Yesterday white count 8.7, hemoglobin 13.1, platelets 237. This morning, white cou nt 7.1, hemoglobin 12.8, platelets 224. Yesterday sodium 135, potassium 4.2, chloride 99, bicarb 29, BUN 14, creatinine 1.10, glucose 243. Liver function tests unremarkable. Procalcitonin less than 0 .05. Lactic acid 1.3 this morning. Sodium 134, potassium 4.5, chloride 101, bicarb 29, BUN 14, crea tinine 1.14, glucose 306. Urinalysis; 2+ protein, otherwise negative. CAT scan of abdomen done in the emergency room shows skin thickening and edema in the left lower quad rant with the subcutaneous fatty tissue stranding in the surrounding area. No fluid collection in th e subcutaneous fatty tissue. No abnormal air collection. No acute peritoneal or retroperitoneal pro cess. Patient does have diffuse fatty infiltration of liver and multiple gallstones. Impression: 1.Abscess/cellulitis, abdominal wall, left lower quadrant, organism methicillin-resistant staphyloco ccus aureus. 2.Anemia, unspecified. 3.Diabetes mellitus, uncontrolled, type 2. 4.Hypertension. 5.Hyperlipidemia. 6.Obstructive sleep apnea. 7.Cervical spinal stenosis. 8.Lumbar radiculopathy. 9.Depression. 10.Hyponatremia. Plan: Admit patient to hospital for further evaluation and management of this problem. Patient is e xpected to spend 2 midnights in the hospital. We will continue IV vancomycin per order. Consult [facility] for dose adjustment and management and instead of IV Zosyn we will start him on Bactrim DS 1 ta blet by mouth 2 times a day. Patient's wound culture that was collected on prior ER visit on 020 has come back with methicillin-resistant staphylococcus aureus. Details and plan of treatment di scussed with patient and his who was at bedside. Importance of hand washing and isolation preca utions explained. We will consult general surgeon and I will see him tomorrow for followup, possible discharge tomorrow depending on recommendation from general surgeon. I will communicate with the [facility] Surgeon and request consultation. WALT/KAUR Voice ID: [id number]
[2019-05-31] MEDS: VANCOMYCIN 2 GM in NA CHLORIDE 0.9% 500 ML IVPB SCH (06:36)
[2019-05-31] MEDS: GLIMEPIRIDE 2 MG TABLET PO SCH ×2 (08:00→17:14)
[2019-05-31] MEDS: METFORMIN ER 500 MG TAB PO SCH ×3 (08:00→17:13)
[2019-05-31] MEDS: SODIUM CHLORIDE 0.9% 10ML INJ IV SCH ×2 (08:56→21:00)
[2019-05-31] MEDS: INSULIN -REGULAR HUMAN 50 UNIT/0.5 ML ML SQ SCH ×4 (08:56→21:18)
[2019-05-31] MEDS: SMZ./TMP. 800/160 MG TABLET PO SCH ×2 (09:00→21:16)
[2019-05-31] MEDS: ENOXAPARIN 40 MG/0.4 ML SQ SCH (09:13)
[2019-05-31] MEDS ORDERED: propofoL 200 MG/20 ML VIAL IV ONE ×2 (10:12→10:38)
[2019-05-31] MEDS ORDERED: LIDOCAINE 2% MPF 5 ML VIAL ONE (10:12)
[2019-05-31] MEDS ORDERED: FENTANYL CITR 100 MCG/2 ML ONE (10:13)
[2019-05-31] MEDS ORDERED: MIDAZOLAM HCL 2 MG/2 ML INJ ONE (10:13)
[2019-05-31] MEDS ORDERED: ONDANSETRON 4 MG/2 ML VIAL ONE ×2 (10:13→11:06)
[2019-05-31] MEDS ORDERED: NA CHLORIDE 0.9% 1,000 ML ONE (10:27)
[2019-05-31] MEDS ORDERED: METOCLOPRAMIDE 10 MG/2mL INJ ONE (11:17)
--- NOTE | 2019-05-31 11:18 | P.OP ---
Preoperative diagnosis: Infected wound left abdomen Postoperative diagnosis: same Primary procedure: Excisional debridment infected wound left abdomen 5x3 cm to sq Anesthesia: general Estimated blood loss: min Specimen: c&s Findings: as above Complications: None Transferred to: Recovery Room Condition: Good
[2019-05-31] MEDS ORDERED: CODEINE 30MG/APAP 300MG TAB PO PRN (11:26)
[2019-05-31] MEDS: FENTANYL CITR 100 MCG/2 ML ONE ×2 (11:43→11:48)
[2019-05-31] MEDS ORDERED: CHLORHEXIDINE GLUCO 4% 120 ML TOP SCH (12:00)
[2019-05-31] MEDS: lisinopriL 20 MG TAB PO SCH (12:19)
[2019-05-31] MEDS: METOPROLOL TAR 50 MG TAB PO SCH ×2 (12:20→21:15)
[2019-05-31] MEDS: DOXAZOSIN 2 MG TAB PO SCH ×2 (12:21→21:15)
[2019-05-31] MEDS: AMLODIPINE 5 MG TAB PO SCH ×2 (12:21→21:16)
--- NOTE | 2019-05-31 14:26 | PREOPCON ---
Date of Consultation: 05/30/2019 abdomen. History Of Present Illness: Patient is a 54-year-old gentleman who had an abscess and cellulitis of his left abdominal wall. It was started about a week ago, went to the ER on Friday, had I and D done however postprocedure he started having fevers, came back to the ER, was admitted for IV antibiotics . Cultures have grown out MRSA. I was asked to evaluate the wound to see the patient needs further debridement. He is awake, alert, complaining of some discomfort in the left lower abdomen. No feve r or chills currently and no purulent discharge. However, there is drainage on the dressing. Review of Systems: Otherwise unremarkable. Medical History: Significant for hypertension, cervical spinal stenosis, obstructive sleep apnea, di abetes, hyperlipidemia and diabetes type 2. Allergies: NONE. Social History: Does not smoke. Drinks occasionally. Family History: Noncontributory. Physical Examination: Vital Signs: Stable. He is currently afebrile. General: He is awake, alert, oriented x3. Head and Neck: Cranial nerves 2 through 12 are grossly within normal limits. No neck masses. No JV D. Throat clear. Neck supple. Chest: Clear. Heart: S1 and S2. Abdomen: Soft, nondistended. Positive bowel sounds in the left lower quadrant. There is approximat bobby a 10 x 10 cm area of erythema with induration. The wound itself is very small, approximately 2 c m necrotic fibrin around the edges and the depth of the wound cannot be clearly evaluated because of purulence present a little bit down there. Extremities: Adequately perfused. Nontender. Neuro: Nonfocal. Laboratory Data: White count is 7.1 with a left shift. Chemistry reviewed. Glucose is 264. His la ctic acid and procalcitonin were normal on admission. Assessment: Infected wound, left lower quadrant abdominal wall with an MRSA infection. Recommendations: We will proceed with incision and drainage and further debridement of this infected wound. So, we get down to healthy tissue to allow for fracture healing. Patient understands the ri sks, benefits, and alternatives and agrees to procedure. Plan of care discussed with Dr. Mcknight. Cont inue antibiotics as ordered. /MODL Voice ID: [id number] Report ID: [id number]
[2019-05-31] MEDS ORDERED: MUPIROCIN 2% OINT 22GM TUBE TOP SCH (21:00)
--- NOTE | 2019-05-31 21:00 | OP ---
Date of Procedure: 05/31/2019 Surgeon: Shan Alcazar MD Preoperative Diagnosis: Infected wound, left abdominal wall. Postoperative Diagnosis: Infected wound, left abdominal wall. Procedure: Excisional debridement, infected abdominal 5 x 3 cm to subcutaneous tissue. Estimated Blood Loss: Minimal. Specimen: Pus. Findings: As above. Anesthesia: General. Complications: None. Patient tolerated the procedure in stable condition, taken to Recovery in good general condition. Procedure In Detail: Patient was brought to the OR and placed in the supine position. General anest hesia was began. Patient was prepped and draped in usual sterile fashion. Then, all of infected tis frankie was excised in 1 piece by making an ellipse skin incision 5 x 3 cm. Marcaine 0.5% was infiltrate d prior to that and then dissection proceeded down to the healthy subcutaneous tissue and excised all the infected tissue. There was pus present at the base of the wound. Cultures were done. Wound ir rigated. Bleeding controlled with cautery. Wet-to-dry normal saline dressing change applied. Patie nt tolerated the procedure in stable condition and taken to Recovery in good general condition. /MODL Voice ID: [id number] Report ID: [id number]
[2019-05-31 22:29] VITALS: O2SAT 96
--- NOTE | 2019-05-31 23:30 | PN ---
Date of Progress Note: 05/31/2019 Subjective: Patient was seen this morning for followup. No new complaints or problems reported by h im. Denies any more chills. Pain is better. No new complaints or problems reported. Objective: Vital Signs: Reviewed. HEENT: Unremarkable. Lungs: Clear to auscultation. Heart: Sounds normal. Abdomen: Soft. Bowel sounds normal. No guarding, rigidity. Tenderness present in left lower quadr ant around area of abscess and cellulitis. Extremities: Trace leg edema. Impression: 1.Cellulitis/abscess, left lower quadrant abdominal wall. 2.Hypertension. 3.Hyperlipidemia. 4.Type 2 diabetes mellitus, uncontrolled. 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 Dr. Alcazar called and talked to me after he evaluated the patient and he suggested that he will take patient to operating room for debridement procedure, which will be do ne today and possible discharge to go home tomorrow. We will continue current antibiotics. I will s ee him tomorrow morning for followup. WALT/MODL Voice ID: [id number] Report ID: [id number]
[2019-06-01] MEDS: VANCOMYCIN 2 GM in NA CHLORIDE 0.9% 500 ML IVPB SCH (00:42)
[2019-06-01] MEDS: INSULIN -REGULAR HUMAN 50 UNIT/0.5 ML ML SQ SCH (08:15)
[2019-06-01] MEDS: METFORMIN ER 500 MG TAB PO SCH (08:16)
[2019-06-01] MEDS: ENOXAPARIN 40 MG/0.4 ML SQ SCH (08:16)
[2019-06-01] MEDS: GLIMEPIRIDE 2 MG TABLET PO SCH (08:16)
[2019-06-01] MEDS: AMLODIPINE 5 MG TAB PO SCH (08:17)
[2019-06-01] MEDS: SMZ./TMP. 800/160 MG TABLET PO SCH (08:17)
[2019-06-01] MEDS: METOPROLOL TAR 50 MG TAB PO SCH (08:17)
[2019-06-01] MEDS: DOXAZOSIN 2 MG TAB PO SCH (08:17)
[2019-06-01] MEDS: lisinopriL 20 MG TAB PO SCH (08:18)
[2019-06-01 08:22] VITALS: BP 156/75
[2019-06-01 08:36] VITALS: TEMP 97.3
--- NOTE | 2019-06-02 02:32 | DS ---
Date of Discharge: 06/01/2019 Disposition: Discharged to go home. Physical Examination: HEENT: Unremarkable. Lungs: Clear to auscultation. Heart: Heart sounds normal. Abdomen: Soft, bowel sounds normal. No guarding, rigidity, tenderness, or distention. Extremities: No leg edema. Skin: Left lower anterior abdominal wall has surgical dressing present. Area of induration and tend erness is significantly better than before. Discharge Medications And Instructions: 1.Continue prior home medication including antibiotic Bactrim DS 1 tablet 2 times a day as prescribe d from emergency room. 2.Add doxycycline 100 mg twice a day for 10 days. 3.Follow up at my office this week on . 4.Follow up with Dr. Alcazar next week. 5.Wound care dressing changes to be provided by as per instructions from Dr. Alcazar. Hospital Course: This is a 54-year-old male patient admitted to the hospital with abscess/cellulitis involving left lower quadrant of anterior abdominal wall. Please see dictated H and P for more info rmation. After patient was evaluated in the ER, he was admitted to the hospital. Patient was treate d on outpatient basis with oral antibiotic, but he failed this treatment and started to have fever, c hills, worsening of symptoms and he came into the ER and was admitted to the hospital. This time, he was started on IV vancomycin and oral Bactrim. Dr. Alcazar from General Surgery was consulted and he took the patient yesterday to the operating room for debridement and today he is feeling much better and he was discharged to go home in stable condition with above-mentioned medication instructions. H is wound culture that was done when he came into the emergency room on 05/28/2019, grew MRSA and it is sensitive to Bactrim and doxycycline and vancomycin. Patient was mad e aware of this wound culture results. WALT/MODL Voice ID: [id number] Report ID: [id number]
== END 2019-06-01 09:13 | disposition home or self-care (01) | DRG 571 ==
LOC: ER 17:21 → ERHOLD 05-30 01:16 → 2ND 05-30 01:46
PROVIDERS: ADMIT Internal Medicine; ATTEND Internal Medicine
PROC: 0JB80ZZ Excision of Abdomen Subcutaneous Tissue and Fascia, Open Approach (ICD-10-PCS; principal; 2019-05-31 10:15)
DX: L03.311 Cellulitis of abdominal wall (principal); E87.1 Hypo-osmolality and hyponatremia; Z68.42 Body mass index [BMI] 45.0-49.9, adult; B95.62 Methicillin resistant Staphylococcus aureus infection as the cause of diseases classified elsewhere; I10 Essential (primary) hypertension; G47.33 Obstructive sleep apnea (adult) (pediatric); F32.9 Major depressive disorder, single episode, unspecified; E78.5 Hyperlipidemia, unspecified; D64.9 Anemia, unspecified; E11.65 Type 2 diabetes mellitus with hyperglycemia; M48.02 Spinal stenosis, cervical region; M54.16 Radiculopathy, lumbar region; E66.01 Morbid (severe) obesity due to excess calories
CPT/HCPCS: 36415; 74177; 80048; 80076; 81003; 81015; 82947; 83605; 83735; 84145; 85025; 87040; 87070; 87075; 87077; 87186; 87205; 88304; 93005; 96365; 96375; 99285; J1650; J1815; J2250; J2405; J2543; J2704; J2765; J3010; J3370; J7030; J7040; Q9967

== ENCOUNTER 2019-07-17 18:27 | Emergency (ER) | payer BC ==
--- OUTSIDE RECORDS SUMMARY | 2019-07-17 18:31 | XMS REPORT | Summary of Care ---
:1965 Author Organization [facility] Address [address] [place] [id number] Care Team Providers Name Role Phone Harjeet Mcknight Rody Primary Care Provider Reason for Visit Reason Comments Forms Encounter Details Date Type Department Care Team Description 06/09/2019 Telephone [facility] Endocrinology- Anupam Atkins MD Forms [address] Professional Office [address] [phone] [address] [place] [address] Allergies No Known Allergiesdocumented as of this encounter (statuses as of 06/11/2019) Medications Medication Sig Dispensed Refills Start Date [...] (scale 4-6) or Pain (scale 7-10). insulin U-500 1 Each 3 100 Syringe [...] times 5/16 Syrg daily before meals. E11.65 insulin regular human 500 inject 60 30 mL 3 03/18/2019 Active unit/mL Units under injectionIndications: the skin 3 Uncontrolled type 2 (three) times diabetes mellitus with daily before hyperglycemia meals. E11. 65 documented as of this encounter (statuses as of 06/11/2019) Active Problems Problem Noted Date Cellulitis of right lower extremity 06/25/2018 Cellulitis of right lower leg 05/25/2018 Morbid obesity with body mass index of 40.0-49.9 05/25/2018 documented as of this encounter (statuses as of 06/11/2019) Immunizations Name Administration Dates Next Due Influenza [...] Treatment Date Type Specialty Care Team Description 06/30/2019 Office Visit Endocrinology Diabetes & Atkins, MD Anupam Metabolism [address] [place] [address] [phone] Health Maintenance Due Date Last Done Comments HEPATITIS C (HCV) SCREEN 1965 PNEUMOCOCCAL 0-64 YEARS COMBINED 1971 SERIES (1 of 1 - PPSV23) EYE EXAM 1975 LDL-C 1975 URINE MICROALBUMIN 1975 DTaP,Tdap,and Td Vaccines (1 - 01/30/1976 Tdap) COLONOSCOPY 2015 Zoster Recombinant Vaccine 2015 [...] Dates Phone Address Type [employer] [phone] 2018-Present PPO documented as of this encounter
--- OUTSIDE RECORDS SUMMARY | 2019-07-17 18:31 | XMS REPORT | Summary of Care ---
:1965 Author Organization [facility] Address [address] [place] [address] Care Team Providers Name Role Phone Harjeet Mcknight Primary Care Provider Reason for Visit Reason Comments Refill Request Encounter Details Date Type Department Care Team Description 11/27/2018 Refill [facility] Endocrinology- Anupam Atkins MD Refill Request [address] Professional Office [address] Napoles [phone] [address] [place] [address] Allergies No Known Allergiesdocumented as [...] Diabetes & Atkins, MD Anupam Metabolism [address] [place], [place] [id number] Health Maintenance Due Date Last Done Comments [...] Dates Phone Address Type [employer] [id number] 2018-2019 PPO documented as of this encounter
--- OUTSIDE RECORDS SUMMARY | 2019-07-17 18:31 | XMS REPORT ---
:1965 Author Organization [facility] Address [address] [place] [address] [address]. [address] [place] [address] Care Team Providers Name Role Phone VIANNEYMADI Unavailable Unavailable TAMMY BETANCOURT Unavailable Unavailable Problems This patient has no known problems. Allergies, Adverse Reactions, Alerts This patient has no known allergies or adverse reactions. Medications This patient has no known medications. Results Test Description Test Time Test Comments Text Results Atomic Results Result Comments [facility] 2017-01-28 05:57:00 Test Item Value Reference [...] EGFR if Non- >60 mL/min/1.73m\\S\\2 Estimated Glomerular Beninese (test Filtration Rate (eGFR) code=EGFRNA) Reference Intervals [...] of chronic kidney failure. CBC WITH AUTO [id number] 05:42:00 Test Item Value Reference Range Comments [...] 1.0-3.0 IG% (test code=IG%) 1.0 % 0.0-0.4 [id number] 05:53:00 Test Item Value Reference Range Comments [...] mL/min/1.73m\\S\\2 EGFR if Non- >60 Estimated Glomerular Beninese (test mL/min/1.73m\\S\\2 Filtration Rate (eGFR) code=EGFRNA) Reference [...] of chronic kidney failure. CBC WITH AUTO [id number] 05:27:00 Test Item Value Reference Range Comments [...] 1.0-3.0 IG% (test code=IG%) 1.7 % 0.0-0.4 [id number] 04:36:00 Test Item Value Reference Range Comments [...] mL/min/1.73m\\S\\2 EGFR if Non- >60 Estimated Glomerular Beninese (test mL/min/1.73m\\S\\2 Filtration Rate (eGFR) code=EGFRNA) Reference [...] of chronic kidney failure. CBC WITH AUTO [id number] 04:14:00 Test Item Value Reference Range Comments [...] 1.0-3.0 IG% (test code=IG%) 1.9 % 0.0-0.4 [id number] 04:40:00 Test Item Value Reference Range Comments [...] mL/min/1.73m\\S\\2 EGFR if Non- >60 Estimated Glomerular Beninese (test mL/min/1.73m\\S\\2 Filtration Rate (eGFR) code=EGFRNA) Reference [...] of chronic kidney failure. CBC WITH AUTO [id number] 04:09:00 Test Item Value Reference Range Comments [...] IG% (test code=IG%) 2.4 % 0.0-0.4 CULTURE, [id number] 06:50:00To start 15mins after 1st cultureSpecimen: BloodCollected: 01/18/2017 04:05 Status: Final Last Updated: 01/23/2017 06: 49 (1) To start 15mins after 1st culture Culture Result (Final) (Final ) No Growth After 5 DaysCULTURE, [id number] 06:50:00Specimen: BloodCollected: 01/18/2017 03:55 Status: Final Last Updated: 01/23/2017 06: 49 Culture Result (Final) (Final) No Growth After 5 DaysCBC WITH AUTO [id number] 04:31:00 Test Item Value Reference Range Comments [...] 1.0-3.0 IG% (test code=IG%) 3.4 % 0.0-0.4 [id number] 04:19:00 Test Item Value Reference Range Comments [...] mL/min/1.73m\\S\\2 EGFR if Non- >60 Estimated Glomerular Beninese (test mL/min/1.73m\\S\\2 Filtration Rate (eGFR) code=EGFRNA) Reference [...] of chronic kidney failure. CBC WITH AUTO [id number] 04:57:00 Test Item Value Reference Range Comments [...] (test code=IG%) 4.0 % 0.0-0.4 CBC AUTO [id number] 04:35:00 Test Item Value Reference Range Comments [...] mL/min/1.73m\\S\\2 EGFR if Non- >60 Estimated Glomerular Beninese (test mL/min/1.73m\\S\\2 Filtration Rate (eGFR) code=EGFRNA) Reference [...] of chronic kidney failure. CBC WITH AUTO [id number] 05:01:00 Test Item Value Reference Range Comments [...] (test code=IG%) 4.5 % 0.0-0.4 CBC AUTO [id number] 04:56:00 Test Item Value Reference Range Comments [...] mL/min/1.73m\\S\\2 EGFR if Non- >60 Estimated Glomerular Beninese (test mL/min/1.73m\\S\\2 Filtration Rate (eGFR) code=EGFRNA) Reference [...] of chronic kidney failure. CBC WITH AUTO [id number] 05:57:00 Test Item Value Reference Range Comments [...] 1.0-3.0 IG% (test code=IG%) 4.8 % 0.0-0.4 [id number] 05:41:00 Test Item Value Reference Range Comments Magnesium (test code=MG) 2.0 mg/dl 1.6-2.3 [id number] 05:41:00 Test Item Value Reference Range Comments [...] mL/min/1.73m\\S\\2 EGFR if Non- >60 Estimated Glomerular Beninese (test mL/min/1.73m\\S\\2 Filtration Rate (eGFR) code=EGFRNA) Reference [...] management of chronic kidney failure. LACTIC ACID [id number] 06:43:00 Test Item Value Reference Range Comments LACTATE (test code=LAC) 0.9 mmol/l 0.7-2.0 GLYCOSALATED [id number] 05:41:00 Test Item Value Reference Range Comments Hemoglobin A1C (test 9.06 % 4.3-6.0 code=GLYCO) Mean Plasma Glucose (test 245 mg/dl 90-180 WHEN TEST RESULTS FOR A1C code=MPG) EXCEED 14.0, THE LINEAR LIMIT OF THE INSTRUMENT, THE CALCULATED RESULT FOR THE MEAN GLUCOSE IS NOT RELIABLE. CORONARY [id number] 05:09:00 Test Item Value Reference Range Comments [...] Average vLDL (test code=VLDL) 37 mg/dl 30-60 [id number] 04:51:00 Test Item Value Reference Range Comments Magnesium (test code=MG) 2.1 mg/dl 1.6-2.3 [id number] 04:51:00 Test Item Value Reference Range Comments CPK (test code=CPK) 93 U/L 30-135 LIPASE, [id number] 04:43:00 Test Item Value Reference Range Comments Lipase (test code=LIPA) 116 U/L 8-223 [id number] 04:43:00 Test Item Value Reference Range Comments [...] mL/min/1.73m\\S\\2 EGFR if Non- >60 Estimated Glomerular Beninese (test mL/min/1.73m\\S\\2 Filtration Rate (eGFR) code=EGFRNA) Reference [...]
--- OUTSIDE RECORDS SUMMARY | 2019-07-17 18:31 | XMS REPORT | Summary of Care ---
:1965 Author Organization [facility] Address [address] [place] [address] Care Team Providers Name Role Phone McknightHarjeet Rody Primary Care Provider Reason for Visit Reason Comments Refill Request Encounter Details Date Type Department Care Team Description 06/16/2019 Telephone [facility] Endocrinology- Anupam Atkins MD Refill Request [address] Professional Office [address] [phone] [place] [address] [address] [place] [address] Allergies No Known Allergiesdocumented as of this encounter (statuses as of 06/16/2019) Medications Medication Sig Dispensed Refills Start Date [...] as of this encounter (statuses as of 06/16/2019) Active Problems Problem Noted Date Cellulitis of right lower extremity 06/25/2018 Cellulitis of right lower leg 05/25/2018 Morbid obesity with body mass index of 40.0-49.9 05/25/2018 documented as of this encounter (statuses as of 06/16/2019) Immunizations Name Administration Dates Next Due Influenza [...] filedocumented in this encounter Plan of Treatment Health Maintenance Due Date Last Done Comments [...] in this encounter Insurance Payer Benefit Plan Subscriber ID Effective Dates Phone Address Type / Group [employer] [place] [id number] 2019-Slick [phone] [address] PPO/POS [place] - OUT OF t [id number] [place] [address] documented as of this encounter
[2019-07-17] MEDS ORDERED: HYDROCODONE/APAP 5/325 MG TAB ONE (20:23)
[2019-07-17] MEDS ORDERED: DOXYCYCLINE 100 MG CAP PO ONE (20:23)
[2019-07-17] MEDS ORDERED: INSULIN -REGULAR HUMAN 50 UNIT/0.5 ML ML ONE (20:32)
--- NOTE | 2019-07-17 20:39 | ER ---
Nurse's Notes [facility] Name: Nicola Harvey Age: 54 yrs Sex: Male : 1965 Arrival Date: 07/17/2019 Time: 18:29 Bed 13 Private MD: Diagnosis: Cellulitis of right lower limb Presentation: 07/17 18:41 Presenting complaint: Patient states: "I think I'm getting an infection in my right leg aj1 again because its getting red and hot on my leg and I'm getting chills again" Denies fever. Transition of care: patient was not received from another setting of care. Onset of symptoms was June 2019. Risk Assessment: Do you want to hurt yourself or someone else? Patient reports no desire to harm self or others. Initial Sepsis Screen: Does the patient meet any 2 criteria? HR > 90 bpm. No. Patient's initial sepsis screen is negative. Does the patient have a suspected source of infection? Yes: Skin breakdown/wound. Care prior to arrival: None. 18:41 Method Of Arrival: Ambulatory aj1 18:41 Acuity: ANGE 3 aj1 Triage Assessment: 18:43 General: Appears in no apparent distress. uncomfortable, Behavior is calm, cooperative, aj1 appropriate for age. Pain: Complains of pain in right leg. Neuro: Level of Consciousness is awake, alert, obeys commands. Cardiovascular: Patient's skin is warm and dry. Respiratory: Airway is patent Respiratory effort is even, unlabored, Respiratory pattern is regular, symmetrical. Historical: - Allergies: 18:43 Invokana; aj1 18:43 Jardiance; aj1 - Home Meds: 18:43 amlodipine 5 mg tab 1 tab once daily [Active]; Bydureon subcutaneous [Active]; aj1 terazosin oral oral [Active]; glimepiride 4 mg Oral tab 1 tab BID [Active]; Humulin R 100 unit/mL soln [Active]; lisinopril 40 mg Oral tab 1 tab once daily [Active]; metformin 1,000 mg Oral tab 1 tab 2 times per day [Active]; Metoprolol Tartrate Oral [Active]; - PMHx: 18:43 Diabetes - IDDM; Hyperlipidemia; Hypertension; lower back pain with injecitons; aj1 - Immunization history:: Flu vaccine is up to date. - Coronavirus screen:: The patient has NOT traveled to [place] in the past 14 days. - Social history:: Smoking status: Patient/guardian denies using tobacco. - Ebola Screening: : Patient denies travel to an Ebola-affected area in the 21 days before illness onset. Screenin:30 Abuse screen: Denies threats or abuse. Denies injuries from another. Nutritional lp1 screening: No deficits noted. Tuberculosis screening: No symptoms or risk factors identified. Fall Risk None identified. Assessment: 20:10 General: Appears in no apparent distress. Behavior is calm, cooperative, appropriate lp1 for age. Pain: Complains of pain in right lower leg Pain currently is 7 out of 10 on a pain scale. Quality of pain is described as pressure, Pain began 1 day ago. Neuro: Level of Consciousness is awake, alert, obeys commands, Oriented to person, place, time, situation. Cardiovascular: Patient's skin is warm and dry. Respiratory: Respiratory effort is even, unlabored, Breath sounds are clear bilaterally. GI: Abdomen is obese. : No signs and/or symptoms were reported regarding the genitourinary system. EENT: No signs and/or symptoms were reported regarding the EENT system. Derm: Skin is intact, Skin is dry, Skin is normal, Skin tight to bilateral lower legs; Hot to touch to lower legs; Pain on palpation to right lower leg. 20:24 Reassessment: Verbal order from provider to administer Novolin SQ per mild sliding lp1 scale; Confirmed to administer 2 units SQ of Novolin. 21:07 Reassessment: Patient given discharge instructions; aware of follow up with PCP and lp1 begin prescriptions. Vital Signs: 18:43 BP 186 / 84; Pulse 83; Resp 18; Temp 99.5; Pulse Ox 96% on R/A; Weight 154.67 kg (R); aj1 Height 5 ft. 10 in. (177.80 cm) (R); Pain 9/10; 21:06 BP 155 / 85; Pulse 78; Resp 18; Temp 99(O); Pulse Ox 98% on R/A; lp1 18:43 Body Mass Index 48.93 (154.67 kg, 177.80 cm) aj1 ED Course: 18:29 Patient arrived in ED. as 18:42 Triage completed. aj1 18:43 Arm band placed on Patient placed in waiting room, Patient notified of wait time. aj1 19:32 Bev Cordoba, RN is Primary Nurse. lp1 19:55 Bridget Haile FNP-C is [facility]. snw 19:55 Weston Carty MD is Attending Physician. snw 20:00 Patient has correct armband on for positive identification. lp1 20:30 No provider procedures requiring assistance completed. Patient did not have IV access lp1 during this emergency room visit. Administered Medications: 20:21 Drug: Doxycycline 100 mg Route: PO; lp1 21:08 Follow up: Response: No adverse reaction lp1 20:22 Drug: Cap[place] 5 mg-325 mg 1 tabs Route: PO; lp1 21:08 Follow up: Response: No adverse reaction lp1 20:30 Drug: NovoLIN R 2 units {Co-Signature: (Makayla Gunderson).} Route: Sub-Q; Site: right lp1 lower abdomen; 21:08 Follow up: Response: No adverse reaction lp1 Outcome: 20:38 Discharge ordered by . snw 21:00 Discharged to home ambulatory, with family. lp1 21:00 Condition: good 21:00 Discharge instructions given to patient, Instructed on discharge instructions, follow up and referral plans. medication usage, Demonstrated understanding of instructions, follow-up care, medications, Prescriptions given X 2. 21:10 Patient left the ED. lp1 Signatures: Candi Joseph, RN RN aj1 Bridget Haile FNP-C WORLD HISTORY TEACHER-Csnw Rima Kebede as Bev Cordoba, RN RN lp1 Winsy Habasif
--- NOTE | 2019-07-17 20:40 | EDPHYS ---
Physician Documentation [facility] Name: Nicola Harvey Age: 54 yrs Sex: Male : 1965 Arrival Date: 07/17/2019 Time: 18:29 Bed 13 Private MD: JEFFREY Physician Weston Carty HPI: 07/17 20:06 This 54 yrs old Male presents to ER via Ambulatory with complaints of Leg Pain.snw 20:06 The patient presents with pain, that is acute, erythema. The complaints affect the snw right grant. Context: The problem was sustained outdoors, resulted from an unknown cause, the patient can fully bear weight, the patient is able to ambulate, multiple episodes of cellulitis. Onset: The symptoms/episode began/occurred suddenly, today. Associated signs and symptoms: Pertinent positives: warmth, erythema, of the right leg. Severity of symptoms: At their worst the symptoms were mild. The patient has experienced similar episodes in the past, multiple times. The patient has been recently seen by a physician: the patient's primary care provider, Dr. Mcknight. Historical: - Allergies: 18:43 Invokana; aj1 18:43 Jardiance; aj1 - Home Meds: 18:43 amlodipine 5 mg tab 1 tab once daily [Active]; Bydureon subcutaneous [Active]; aj1 terazosin oral oral [Active]; glimepiride 4 mg Oral tab 1 tab BID [Active]; Humulin R 100 unit/mL soln [Active]; lisinopril 40 mg Oral tab 1 tab once daily [Active]; metformin 1,000 mg Oral tab 1 tab 2 times per day [Active]; Metoprolol Tartrate Oral [Active]; - PMHx: 18:43 Diabetes - IDDM; Hyperlipidemia; Hypertension; lower back pain with injecitons; aj1 - Immunization history:: Flu vaccine is up to date. - Coronavirus screen:: The patient has NOT traveled to [place] in the past 14 days. - Social history:: Smoking status: Patient/guardian denies using tobacco. - Ebola Screening: : Patient denies travel to an Ebola-affected area in the 21 days before illness onset. ROS: 20:05 Constitutional: Negative for fever, chills, and weight loss, Eyes: Negative for injury, snw pain, redness, and discharge, ENT: Negative for injury, pain, and discharge, Neck: Negative for injury, pain, and swelling, Cardiovascular: Negative for chest pain, palpitations, and edema, Respiratory: Negative for shortness of breath, cough, wheezing, and pleuritic chest pain, Abdomen/GI: Negative for abdominal pain, nausea, vomiting, diarrhea, and constipation, + recent staph infection to left lower abd Back: Negative for injury and pain, Neuro: Negative for headache, weakness, numbness, tingling, and seizure, Psych: Negative for depression, anxiety, suicide ideation, homicidal ideation, and hallucinations. 20:05 MS/extremity: Positive for erythema, paresthesias, of the right grant. 20:05 Skin: Positive for cellulitis, of the right leg, mild. Exam: 20:03 Constitutional: This is a well developed, well nourished patient who is awake, alert, snw and in no acute distress. Head/Face: Normocephalic, atraumatic. Eyes: Pupils equal round and reactive to light, extra-ocular motions intact. Lids and lashes normal. Conjunctiva and sclera are non-icteric and not injected. Cornea within normal limits. Periorbital areas with no swelling, redness, or edema. ENT: Nares patent. No nasal discharge, no septal abnormalities noted. Tympanic membranes are normal and external auditory canals are clear. Oropharynx with no redness, swelling, or masses, exudates, or evidence of obstruction, uvula midline. Mucous membranes moist. Neck: Trachea midline, no thyromegaly or masses palpated, and no cervical lymphadenopathy. Supple, full range of motion without nuchal rigidity, or vertebral point tenderness. No Meningismus. Chest/axilla: Normal chest wall appearance and motion. Nontender with no deformity. No lesions are appreciated. Cardiovascular: Regular rate and rhythm with a normal S1 and S2. No gallops, murmurs, or rubs. Normal PMI, no JVD. No pulse deficits. Respiratory: Lungs have equal breath sounds bilaterally, clear to auscultation and percussion. No rales, rhonchi or wheezes noted. No increased work of breathing, no retractions or nasal flaring. Abdomen/GI: Soft, non-tender, with normal bowel sounds. No distension or tympany. No guarding or rebound. No evidence of tenderness throughout. Back: No spinal tenderness. No costovertebral tenderness. Full range of motion. Skin: Warm, dry with normal turgor. Normal color with no rashes, no lesions, and no evidence of cellulitis. Neuro: Awake and alert, GCS 15, oriented to person, place, time, and situation. Cranial nerves II-XII grossly intact. Motor strength 5/5 in all extremities. Sensory grossly intact. Cerebellar exam normal. Normal gait. Psych: Awake, alert, with orientation to person, place and time. Behavior, mood, and affect are within normal limits. 20:03 Musculoskeletal/extremity: ROM: no acute changes, Circulation is intact in all extremities. right lower extremity with some shooting pain today, + warmth, mild erythema Vital Signs: 18:43 BP 186 / 84; Pulse 83; Resp 18; Temp 99.5; Pulse Ox 96% on R/A; Weight 154.67 kg (R); aj1 Height 5 ft. 10 in. (177.80 cm) (R); Pain 9/10; 21:06 BP 155 / 85; Pulse 78; Resp 18; Temp 99(O); Pulse Ox 98% on R/A; lp1 18:43 Body Mass Index 48.93 (154.67 kg, 177.80 cm) aj1 MDM: 19:55 Patient medically screened. snw 20:40 Data reviewed: vital signs, nurses notes. Data interpreted: Pulse oximetry: on room air snw is 96 %. Interpretation: acceptable. Counseling: I had a detailed discussion with the patient and/or guardian regarding: the historical points, exam findings, and any diagnostic results supporting the discharge/admit diagnosis, the presence of at least one elevated blood pressure reading (>120/80) during this emergency department visit, the need for outpatient follow up, to return to the emergency department if symptoms worsen or persist or if there are any questions or concerns that arise at home. Special discussion: Based on the history and exam findings, there is no indication for further emergent testing or inpatient evaluation. I discussed with the patient/guardian the need to see the primary care provider for further evaluation of the symptoms. Dr. Alcazar for wound care. Pt already being seen for recent Staph to left lower abd. Pt rec'd Vanco, Zosyn, and then Bactrim in May. 07/17 20:03 Order name: Blood Culture* snw 07/17 20:32 Order name: Glucose, Ancillary Testing; Complete Time: 20:36 EDMS 07/17 20:03 Order name: FSBS; Complete Time: 20:18 snw Administered Medications: 20:21 Drug: Doxycycline 100 mg Route: PO; lp1 21:08 Follow up: Response: No adverse reaction lp1 20:22 Drug: [place] 5 mg-325 mg 1 tabs Route: PO; lp1 21:08 Follow up: Response: No adverse reaction lp1 20:30 Drug: NovoLIN R 2 units {Co-Signature: (Makayla Gunderson).} Route: Sub-Q; Site: right lp1 lower abdomen; 21:08 Follow up: Response: No adverse reaction lp1 Disposition: 07/18 00:00 Co-signature as Attending Physician, Weston Carty MD I agree with the assessment and leigh plan of care. Disposition: 07/17/19 20:38 Discharged to Home. Impression: Cellulitis of right lower limb. - Condition is Stable. - Discharge Instructions: Cellulitis, Adult, Hyperglycemia. - Prescriptions for Doxycycline Hyclate 100 mg Oral Tablet - take 1 tablet by ORAL route every 12 hours; 20 tablet. Ultram 50 mg Oral Tablet - take 1 tablet by ORAL route every 6 hours As needed; 12 tablet. - Medication Reconciliation Form, Thank You Letter, Antibiotic Education, Prescription Opioid Use form. - Follow up: Private Physician; When: 1 - 2 days; Reason: Recheck today's complaints, Continuance of care, Re-evaluation by your physician. Follow up: Emergency Department; When: As needed; Reason: Worsening of condition. Signatures: Dispatcher [employer] Candi Mejia, RN RN aj1 Weston Carty MD MD cha Therrien, Shelly, LEAD INGOT MOLDER-C LEAD INGOT MOLDER-Csnw Bev Cordoba RN RN lp1 Everkatie Manciaasif Corrections: (The following items were deleted from the chart) 07/17 21:10 20:38 07/17/2019 20:38 Discharged to Home. Impression: Cellulitis of right lower limb. lp1 Condition is Stable. Forms are Medication Reconciliation Form, Thank You Letter, Antibiotic Education, Prescription Opioid Use. Follow up: Private Physician; When: 1 - 2 days; Reason: Recheck today's complaints, Continuance of care, Re-evaluation by your physician. Follow up: Emergency Department; When: As needed; Reason: Worsening of condition. snw
[2019-07-17 21:48] VITALS: BP 155/85; TEMP 99; O2SAT 98
== END 2019-07-17 21:10 | disposition home or self-care (01) ==
LOC: ER 18:27
DX: L03.115 Cellulitis of right lower limb (principal); Z88.8 Allergy status to other drugs, medicaments and biological substances; I10 Essential (primary) hypertension; E11.9 Type 2 diabetes mellitus without complications; Z79.4 Long term (current) use of insulin
CPT/HCPCS: 82947; 87040; 96372; 99283

== ENCOUNTER 2019-08-07 06:48 | Observation (INO) | payer BC ==
--- OUTSIDE RECORDS SUMMARY | 2019-08-07 06:53 | XMS REPORT ---
:1965 [facility] Address [address] [place] [address] [address] [place] [address] Care Team Providers Name Role Phone VIANNEYDANIKARA Unavailable Unavailable TAMMY BETANCOURT Unavailable Unavailable Problems This patient has no known problems. Allergies, Adverse Reactions, Alerts This patient has no known allergies or adverse reactions. Medications This patient has no known medications. Results Test Description Test Time Test Comments Text Results Atomic Results Result Comments [facility] 2017-01-28 05:57:00 Test Item Value Reference [...] EGFR if Non- >60 mL/min/1.73m\\S\\2 Estimated Glomerular [place] (test Filtration Rate (eGFR) code=EGFRNA) Reference Intervals [...] of chronic kidney failure. CBC WITH AUTO [id number] 05:42:00 Test Item Value Reference Range Comments [...] 1.0-3.0 IG% (test code=IG%) 1.0 % 0.0-0.4 [id number] 05:53:00 Test Item Value Reference Range Comments [...] mL/min/1.73m\\S\\2 EGFR if Non- >60 Estimated Glomerular [place] (test mL/min/1.73m\\S\\2 Filtration Rate (eGFR) code=EGFRNA) Reference [...] of chronic kidney failure. CBC WITH AUTO [id number] 05:27:00 Test Item Value Reference Range Comments [...] 1.0-3.0 IG% (test code=IG%) 1.7 % 0.0-0.4 [id number] 04:36:00 Test Item Value Reference Range Comments [...] mL/min/1.73m\\S\\2 EGFR if Non- >60 Estimated Glomerular [place] (test mL/min/1.73m\\S\\2 Filtration Rate (eGFR) code=EGFRNA) Reference [...] of chronic kidney failure. CBC WITH AUTO [id number] 04:14:00 Test Item Value Reference Range Comments [...] 1.0-3.0 IG% (test code=IG%) 1.9 % 0.0-0.4 [id number] 04:40:00 Test Item Value Reference Range Comments [...] mL/min/1.73m\\S\\2 EGFR if Non- >60 Estimated Glomerular [place] (test mL/min/1.73m\\S\\2 Filtration Rate (eGFR) code=EGFRNA) Reference [...] of chronic kidney failure. CBC WITH AUTO [id number] 04:09:00 Test Item Value Reference Range Comments [...] IG% (test code=IG%) 2.4 % 0.0-0.4 CULTURE, [id number] 06:50:00To start 15mins after 1st cultureSpecimen: BloodCollected: 01/18/2017 04:05 Status: Final Last Updated: 01/23/2017 06: 49 (1) To start 15mins after 1st culture Culture Result (Final) (Final ) No Growth After 5 DaysCULTURE, [id number] 06:50:00Specimen: BloodCollected: 01/18/2017 03:55 Status: Final Last Updated: 01/23/2017 06: 49 Culture Result (Final) (Final) No Growth After 5 DaysCBC WITH AUTO [id number] 04:31:00 Test Item Value Reference Range Comments [...] 1.0-3.0 IG% (test code=IG%) 3.4 % 0.0-0.4 [id number] 04:19:00 Test Item Value Reference Range Comments [...] mL/min/1.73m\\S\\2 EGFR if Non- >60 Estimated Glomerular [place] (test mL/min/1.73m\\S\\2 Filtration Rate (eGFR) code=EGFRNA) Reference [...] of chronic kidney failure. CBC WITH AUTO [id number] 04:57:00 Test Item Value Reference Range Comments [...] (test code=IG%) 4.0 % 0.0-0.4 CBC AUTO [id number] 04:35:00 Test Item Value Reference Range Comments [...] mL/min/1.73m\\S\\2 EGFR if Non- >60 Estimated Glomerular [place] (test mL/min/1.73m\\S\\2 Filtration Rate (eGFR) code=EGFRNA) Reference [...] of chronic kidney failure. CBC WITH AUTO [id number] 05:01:00 Test Item Value Reference Range Comments [...] (test code=IG%) 4.5 % 0.0-0.4 CBC AUTO [id number] 04:56:00 Test Item Value Reference Range Comments [...] mL/min/1.73m\\S\\2 EGFR if Non- >60 Estimated Glomerular [place] (test mL/min/1.73m\\S\\2 Filtration Rate (eGFR) code=EGFRNA) Reference [...] of chronic kidney failure. CBC WITH AUTO [id number] 05:57:00 Test Item Value Reference Range Comments [...] 1.0-3.0 IG% (test code=IG%) 4.8 % 0.0-0.4 [id number] 05:41:00 Test Item Value Reference Range Comments Magnesium (test code=MG) 2.0 mg/dl 1.6-2.3 [id number] 05:41:00 Test Item Value Reference Range Comments [...] mL/min/1.73m\\S\\2 EGFR if Non- >60 Estimated Glomerular [place] (test mL/min/1.73m\\S\\2 Filtration Rate (eGFR) code=EGFRNA) Reference [...] management of chronic kidney failure. LACTIC ACID [id number] 06:43:00 Test Item Value Reference Range Comments LACTATE (test code=LAC) 0.9 mmol/l 0.7-2.0 GLYCOSALATED [id number] 05:41:00 Test Item Value Reference Range Comments Hemoglobin A1C (test 9.06 % 4.3-6.0 code=GLYCO) Mean Plasma Glucose (test 245 mg/dl 90-180 WHEN TEST RESULTS FOR A1C code=MPG) EXCEED 14.0, THE LINEAR LIMIT OF THE INSTRUMENT, THE CALCULATED RESULT FOR THE MEAN GLUCOSE IS NOT RELIABLE. CORONARY [id number] 05:09:00 Test Item Value Reference Range Comments [...] Average vLDL (test code=VLDL) 37 mg/dl 30-60 [id number] 04:51:00 Test Item Value Reference Range Comments Magnesium (test code=MG) 2.1 mg/dl 1.6-2.3 [id number] 04:51:00 Test Item Value Reference Range Comments CPK (test code=CPK) 93 U/L 30-135 LIPASE, [id number] 04:43:00 Test Item Value Reference Range Comments Lipase (test code=LIPA) 116 U/L 8-223 [id number] 04:43:00 Test Item Value Reference Range Comments [...] mL/min/1.73m\\S\\2 EGFR if Non- >60 Estimated Glomerular [place] (test mL/min/1.73m\\S\\2 Filtration Rate (eGFR) code=EGFRNA) Reference [...]
--- NOTE | 2019-08-07 07:52 | ER ---
Nurse's Notes [facility] Name: Nicola Harvey Age: 54 yrs Sex: Male : 1965 Arrival Date: 08/07/2019 Time: 06:50 Bed 14 Private MD: Latoya Mcknight C Diagnosis: Fever, unspecified;Cellulitis and acute lymphangitis of other parts of limb-right lower extremity;Type 2 diabetes mellitus Presentation: 08/06 07:27 Chief complaint: Patient states: body aches, fever and chills that began this morning. ss Coronavirus screen: The patient has NOT traveled to a country currently being monitored by the [facility] within the last 14 days. Proceed with normal triage procedures. Ebola Screen: Patient denies exposure to infectious person. Patient denies travel to an Ebola-affected area in the 21 days before illness onset. Initial Sepsis Screen: Does the patient meet any 2 criteria? No. Patient's initial sepsis screen is negative. Does the patient have a suspected source of infection? No. Patient's initial sepsis screen is negative. Risk Assessment: Do you want to hurt yourself or someone else? Patient reports no desire to harm self or others. 07:27 Method Of Arrival: Ambulatory ss 07:27 Acuity: ANGE 3 ss 11:39 Onset of symptoms was August 07, 2019. jl7 Historical: - Allergies: 07:30 Invokana; ss 07:30 Jardiance; ss - Home Meds: 11:38 amlodipine 5 mg tab 1 tab once daily [Active]; Bydureon subcutaneous [Active]; jl7 glimepiride 4 mg Oral tab 1 tab BID [Active]; Humulin R 100 unit/mL soln [Active]; lisinopril 40 mg Oral tab 1 tab once daily [Active]; metformin 1,000 mg Oral tab 1 tab 2 times per day [Active]; Metoprolol Tartrate Oral [Active]; terazosin Oral [Active]; - PMHx: 07:30 Diabetes - IDDM; Hypertension; Hyperlipidemia; lower back pain with injecitons; ss - Immunization history:: Adult Immunizations up to date. - Social history:: Smoking status: Patient denies any tobacco usage or history of. Screenin:31 Abuse screen: Denies threats or abuse. Denies injuries from another. Nutritional ss screening: No deficits noted. Tuberculosis screening: Never had TB. Fall Risk None identified. Assessment: 07:31 General: Appears uncomfortable, obese, Behavior is calm, cooperative, Reports chills ss for 0-12 hours, fever for 0-12 hours, feeling ill for 0-12 hours, fatigue for 0-12 hours. Pain: Complains of pain in gneralized body aches Pain currently is 8 out of 10 on a pain scale. Quality of pain is described as aching, Is continuous. Neuro: Level of Consciousness is awake, alert, obeys commands, Oriented to person, place, time, situation. Cardiovascular: Capillary refill < 3 seconds is brisk in bilateral fingers. Respiratory: Breath sounds are clear bilaterally. Denies cough, shortness of breath. GI: Abdomen is non-distended, Reports intermittent nausea Patient currently denies diarrhea. : No signs and/or symptoms were reported regarding the genitourinary system. Derm: Skin is pink, warm \T\ dry. normal. Musculoskeletal: Circulation, motion, and sensation intact. Range of motion: intact in all extremities. 08:30 Reassessment: Patient appears in no apparent distress at this time. No changes from jl7 previously documented assessment. Patient and/or family updated on plan of care and expected duration. Pain level reassessed. Patient is alert, oriented x 3, equal unlabored respirations, skin warm/dry/pink. 09:30 Reassessment: Patient appears in no apparent distress at this time. No changes from jl7 previously documented assessment. Patient and/or family updated on plan of care and expected duration. Pain level reassessed. Patient is alert, oriented x 3, equal unlabored respirations, skin warm/dry/pink. 10:30 Reassessment: Patient appears in no apparent distress at this time. No changes from jl7 previously documented assessment. Patient and/or family updated on plan of care and expected duration. Pain level reassessed. Patient is alert, oriented x 3, equal unlabored respirations, skin warm/dry/pink. 11:34 Reassessment: Patient appears in no apparent distress at this time. No changes from jl7 previously documented assessment. Patient and/or family updated on plan of care and expected duration. Pain level reassessed. Patient is alert, oriented x 3, equal unlabored respirations, skin warm/dry/pink. 12:30 Reassessment: Patient appears in no apparent distress at this time. No changes from jl7 previously documented assessment. Patient and/or family updated on plan of care and expected duration. Pain level reassessed. Patient is alert, oriented x 3, equal unlabored respirations, skin warm/dry/pink. 13:30 Reassessment: Patient appears in no apparent distress at this time. No changes from jl7 previously documented assessment. Patient and/or family updated on plan of care and expected duration. Pain level reassessed. Patient is alert, oriented x 3, equal unlabored respirations, skin warm/dry/pink. 13:56 Reassessment: See [facility] for further documentation. vc Vital Signs: 07:27 BP 148 / 80; Pulse 79; Resp 18; Temp 98.8; Pulse Ox 96% on R/A; Weight 155.58 kg; ss Height 9 ft. 6 in. (289.56 cm); Pain 8/10; 09:30 BP 150 / 70; Pulse 65; Resp 16 S; Pulse Ox 96% on R/A; jl7 12:05 BP 149 / 70; Pulse 80; Resp 21; Temp 97.8(TE); Pulse Ox 96% on R/A; 5 13:45 BP 166 / 60; Pulse 72; Resp 22; Pulse Ox 97% on R/A; vc 07:27 Body Mass Index 18.56 (155.58 kg, 289.56 cm) ED Course: 06:50 Patient arrived in ED. es 06:51 Latoya Mcknight MD is Private Physician. es 07:11 Weston Carty MD is Attending Physician. leigh 07:30 Triage completed. 07:30 Arm band placed on right wrist. 07:31 Patient has correct armband on for positive identification. Bed in low position. Call light in reach. 07:48 Kirk Bill RN is Primary Nurse. jl7 07:51 Latoya Mcknight MD is Hospitalizing Provider. leigh 08:00 Initial lab(s) drawn, by mt, sent to lab. First set of blood cultures drawn by me. jl7 Second set of blood cultures drawn by me. 08:00 Inserted saline lock: 20 gauge in right antecubital area, using aseptic technique. jl7 Blood collected. 08:03 XRAY Chest (1 view) In Process Unspecified. EDMS 08:57 Ultrasound completed. Patient tolerated well. sg3 12:04 EKG done, by ED staff, reviewed by Weston Carty MD. [facility] 13:58 No provider procedures requiring assistance completed. Patient admitted, IV remains in vc place. Administered Medications: 08:30 Drug: NS 0.9% (30 ml/kg) 30 ml/kg Route: IV; Rate: bolus; Site: right antecubital; jl7 13:57 Follow up: IV Status: Infusion continued upon admission; IV Intake: 300ml vc 08:31 Drug: Zofran (Ondansetron) 4 mg Route: IVP; Site: right antecubital; jl7 13:38 Follow up: Response: No adverse reaction; Nausea is decreased vc 08:35 Drug: morphine 4 mg Route: IVP; Site: right antecubital; jl7 13:38 Follow up: Response: No adverse reaction; Pain is decreased vc 09:30 Drug: Zosyn 3.375 grams Route: IVPB; Infused Over: 60 mins; Site: right antecubital; jl7 11:30 Follow up: IV Status: Completed infusion; IV Intake: 100ml vc 11:26 Drug: vancoMYCIN 2 grams Route: IVPB; Rate: calculated rate; Site: right antecubital; jl7 13:37 Follow up: IV Status: Completed infusion; IV Intake: 500ml vc Intake: 11:30 IV: 100ml; Total: 100ml. vc 13:37 IV: 500ml; Total: 600ml. vc 13:57 IV: 300ml; Total: 900ml. vc Outcome: 07:52 Decision to Hospitalize by Provider. [facility] 13:59 Admitted to ER Hold. Please see [facility] for further documentation. vc 13:59 Condition: good 13:59 Instructed on the need for admit. 21:30 Patient left the ED. vc Signatures: Dispatcher [employer] Weston Aly MD MD cha Salyer, Edna es Smirch, Shelby, RN RN ss Martinez, Maria [facility] Kirk Bill RN RN jl7 Chani Colón sg3 Anne Del Valle RN RN vc Corrections: (The following items were deleted from the chart) 07:56 07:27 Acuity: ANGE 4 ss ss 11:30 11:30 morphine 4 mg IVP in right antecubital jlDre jl7
--- NOTE | 2019-08-07 07:52 | EDPHYS ---
Physician Documentation [facility] Name: Nicola Harvey Age: 54 yrs Sex: Male : 1965 Arrival Date: 08/07/2019 Time: 06:50 Bed 14 Private MD: Latoya Mcknight C ED Physician Weston Carty HPI: 08/06 07:45 This 54 yrs old Male presents to ER via Ambulatory with complaints of Fever, leigh Chills, aches and pains. 07:45 The patient reports fever, that was measured at 103 degrees Fahrenheit. Onset: The leigh symptoms/episode began/occurred 3 day(s) ago. Modifying factors: there are no obvious modifying factors. Associated signs and symptoms: Pertinent positives: chills, myalgias. Historical: - Allergies: 07:30 Invokana; ss 07:30 Jardiance; ss - Home Meds: 11:38 amlodipine 5 mg tab 1 tab once daily [Active]; Bydureon subcutaneous [Active]; jl7 glimepiride 4 mg Oral tab 1 tab BID [Active]; Humulin R 100 unit/mL soln [Active]; lisinopril 40 mg Oral tab 1 tab once daily [Active]; metformin 1,000 mg Oral tab 1 tab 2 times per day [Active]; Metoprolol Tartrate Oral [Active]; terazosin Oral [Active]; - PMHx: 07:30 Diabetes - IDDM; Hypertension; Hyperlipidemia; lower back pain with injecitons; ss - Immunization history:: Adult Immunizations up to date. - Social history:: Smoking status: Patient denies any tobacco usage or history of. ROS: 07:46 Eyes: Negative for injury, pain, redness, and discharge, ENT: Negative for injury, leigh pain, and discharge, Neck: Negative for injury, pain, and swelling, Cardiovascular: Negative for chest pain, palpitations, and edema, Respiratory: Negative for shortness of breath, cough, wheezing, and pleuritic chest pain, Abdomen/GI: Negative for abdominal pain, nausea, vomiting, diarrhea, and constipation, Back: Negative for injury and pain, : Negative for injury, bleeding, discharge, and swelling, Skin: Negative for injury, rash, and discoloration, Neuro: Negative for headache, weakness, numbness, tingling, and seizure, Psych: Negative for depression, anxiety, suicide ideation, homicidal ideation, and hallucinations, Allergy/Immunology: Negative for hives, rash, and allergies, Endocrine: Negative for neck swelling, polydipsia, polyuria, polyphagia, and marked weight changes, Hematologic/Lymphatic: Negative for swollen nodes, abnormal bleeding, and unusual bruising. 07:46 Constitutional: Positive for body aches, chills, fatigue, fever, malaise. 07:46 MS/extremity: Positive for decreased range of motion, erythema, pain, swelling, tenderness, of the right leg. Exam: 07:46 Constitutional: This is a well developed, well nourished patient who is awake, alert, leigh and in no acute distress. Head/Face: Normocephalic, atraumatic. Eyes: Pupils equal round and reactive to light, extra-ocular motions intact. Lids and lashes normal. Conjunctiva and sclera are non-icteric and not injected. Cornea within normal limits. Periorbital areas with no swelling, redness, or edema. ENT: Nares patent. No nasal discharge, no septal abnormalities noted. Tympanic membranes are normal and external auditory canals are clear. Oropharynx with no redness, swelling, or masses, exudates, or evidence of obstruction, uvula midline. Mucous membranes moist. Neck: Trachea midline, no thyromegaly or masses palpated, and no cervical lymphadenopathy. Supple, full range of motion without nuchal rigidity, or vertebral point tenderness. No Meningismus. Chest/axilla: Normal chest wall appearance and motion. Nontender with no deformity. No lesions are appreciated. Cardiovascular: Regular rate and rhythm with a normal S1 and S2. No gallops, murmurs, or rubs. Normal PMI, no JVD. No pulse deficits. Respiratory: Lungs have equal breath sounds bilaterally, clear to auscultation and percussion. No rales, rhonchi or wheezes noted. No increased work of breathing, no retractions or nasal flaring. Abdomen/GI: Soft, non-tender, with normal bowel sounds. No distension or tympany. No guarding or rebound. No evidence of tenderness throughout. Back: No spinal tenderness. No costovertebral tenderness. Full range of motion. Male : Normal genitalia with no discharge or lesions. Skin: Warm, dry with normal turgor. Normal color with no rashes, no lesions, and no evidence of cellulitis. Neuro: Awake and alert, GCS 15, oriented to person, place, time, and situation. Cranial nerves II-XII grossly intact. Motor strength 5/5 in all extremities. Sensory grossly intact. Cerebellar exam normal. Normal gait. Psych: Awake, alert, with orientation to person, place and time. Behavior, mood, and affect are within normal limits. 07:46 Musculoskeletal/extremity: Pulses: Sensation intact. Compartment Syndrome exam of affected extremity: is normal. DVT Exam: negative Homans' sign noted on exam, no appreciated bluish discoloration, pain, swelling, tenderness, erythema, increased warmth. Vital Signs: 07:27 BP 148 / 80; Pulse 79; Resp 18; Temp 98.8; Pulse Ox 96% on R/A; Weight 155.58 kg; Height 9 ft. 6 in. (289.56 cm); Pain 8/10; 09:30 BP 150 / 70; Pulse 65; Resp 16 S; Pulse Ox 96% on R/A; jl7 12:05 BP 149 / 70; Pulse 80; Resp 21; Temp 97.8(TE); Pulse Ox 96% on R/A; mh5 13:45 BP 166 / 60; Pulse 72; Resp 22; Pulse Ox 97% on R/A; vc 07:27 Body Mass Index 18.56 (155.58 kg, 289.56 cm) MDM: 07:28 Patient medically screened. [facility] 07:52 Data reviewed: vital signs, nurses notes, lab test result(s), EKG, radiologic studies, [facility] plain films, ultrasound. 08/06 07:27 Order name: Flu; Complete Time: 11:05 08/06 07:45 Order name: Basic Metabolic Panel; Complete Time: 11:05 [facility] 08/06 07:45 Order name: CBC with Diff; Complete Time: 11:05 [facility] 08/06 07:45 Order name: LFT's; Complete Time: 11:05 [facility] 08/06 07:45 Order name: Magnesium; Complete Time: 11: [facility] 08/06 07:45 Order name: NT PRO-BNP; Complete Time: 11:05 [facility] 08/06 07:45 Order name: PT-INR; Complete Time: 11: [facility] 08/06 07:45 Order name: Troponin (emerg Dept Use Only); Complete Time: 11:05 [facility] 08/06 07:45 Order name: XRAY Chest (1 view); Complete Time: 11:05 [facility] 08/06 07:45 Order name: Blood Culture Adult (2) [facility] 08/06 07:45 Order name: Procalcitonin; Complete Time: 11:05 [facility] 08/06 07:45 Order name: Lactate; Complete Time: 11:05 [facility] 08/06 07:45 Order name: Urine Culture [facility] 08/06 20:00 Order name: Glucose, Ancillary Testing EDMS 08/06 07:45 Order name: EKG; Complete Time: 07:46 [facility] 08/06 07:45 Order name: Cardiac monitoring; Complete Time: 11:40 [facility] 08/06 07:45 Order name: EKG - Nurse/Tech; Complete Time: 11:46 [facility] 08/06 07:45 Order name: IV Saline Lock; Complete Time: 11:40 [facility] 08/06 07:45 Order name: Labs collected and sent; Complete Time: 11:40 [facility] 08/06 07:45 Order name: O2 Per Protocol; Complete Time: 11:40 [facility] 08/06 07:45 Order name: O2 Sat Monitoring; Complete Time: 11:40 [facility] 08/06 07:45 Order name: Urine Dipstick-Ancillary (obtain specimen); Complete Time: 13:39 [facility] 08/06 07:45 Order name: US Extremity Venous W Compression [place]und [facility] 08/06 09:06 Order name: US; Complete Time: 11:05 EDMS Administered Medications: 08:30 Drug: NS 0.9% (30 ml/kg) 30 ml/kg Route: IV; Rate: bolus; Site: right antecubital; jl7 13:57 Follow up: IV Status: Infusion continued upon admission; IV Intake: 300ml vc 08:31 Drug: Zofran (Ondansetron) 4 mg Route: IVP; Site: right antecubital; jl7 13:38 Follow up: Response: No adverse reaction; Nausea is decreased vc 08:35 Drug: morphine 4 mg Route: IVP; Site: right antecubital; jl7 13:38 Follow up: Response: No adverse reaction; Pain is decreased vc 09:30 Drug: Zosyn 3.375 grams Route: IVPB; Infused Over: 60 mins; Site: right antecubital; jl7 11:30 Follow up: IV Status: Completed infusion; IV Intake: 100ml vc 11:26 Drug: vancoMYCIN 2 grams Route: IVPB; Rate: calculated rate; Site: right antecubital; jl7 13:37 Follow up: IV Status: Completed infusion; IV Intake: 500ml vc Disposition: 08/07/19 07:52 Hospitalization ordered by Latoya Mcknight for Inpatient Admission. Preliminary diagnosis are Fever, unspecified, Cellulitis and acute lymphangitis of other parts of limb - right lower extremity, Type 2 diabetes mellitus. - Bed requested for Telemetry/MedSurg (Inpatient). - Status is Inpatient Admission. vc - Condition is Fair. - Problem is new. - Symptoms have improved. Signatures: Dispatcher [employer] Mariah Carter RN RN Weston Manley MD MD cha Smirch, Shelby, RN RN ss Leal, Jahala, RN RN jl7 Fang Lee Vanessa, RN RN vc Corrections: (The following items were deleted from the chart) 13:55 07:52 Hospitalization Ordered by A Juan Luis AMBROSE for Inpatient Admission. Preliminary eb diagnosis is Fever, unspecified; Cellulitis and acute lymphangitis of other parts of limb - right lower extremity; Type 2 diabetes mellitus. Bed requested for Telemetry/MedSurg (Inpatient). Status is Inpatient Admission. Condition is Fair. Problem is new. Symptoms have improved. leigh 19:45 13:55 08/07/2019 07:52 Hospitalization Ordered by A Juan Luis AMBROSE for Inpatient Admission. dw Preliminary diagnosis is Fever, unspecified; Cellulitis and acute lymphangitis of other parts of limb - right lower extremity; Type 2 diabetes mellitus. Bed requested for [facility] ER HOLD. Status is Inpatient Admission. Condition is Fair. Problem is new. Symptoms have improved. eb 21:30 19:45 08/07/2019 07:52 Hospitalization Ordered by A Juan Luis AMBROSE for Inpatient Admission. vc Preliminary diagnosis is Fever, unspecified; Cellulitis and acute lymphangitis of other parts of limb - right lower extremity; Type 2 diabetes mellitus. Bed requested for Telemetry/MedSurg (Inpatient). Status is Inpatient Admission. Condition is Fair. Problem is new. Symptoms have improved. dw
[2019-08-07 08:33] LABS: Absolute Lymphocytes (CBC) 0.9 K/uL (0.7-4.9); Basophils % 0.7 % (0-1.3); Hematocrit 37.2 % (39.6-49.0); Lymphocytes % 9.1 % (15.3-44.8); MPV 7.8 fL (7.6-11.3); RBC Red Blood Cell Count 4.54 M/uL (4.33-5.43)
[2019-08-07] MEDS ORDERED: PIPER/TAZO/NS 3.375gm 0 GM/0 ML BAG ONE (08:34)
[2019-08-07] MEDS ORDERED: NA CHLORIDE 0.9% 1,000 ML ONE ×2 (08:34→20:08)
[2019-08-07] MEDS ORDERED: MORPHINE 4 MG/ML SYR ONE (08:34)
[2019-08-07 08:35] LABS: Protime INR 0.97
[2019-08-07] MEDS ORDERED: ONDANSETRON 4 MG/2 ML VIAL ONE (08:37)
[2019-08-07] MEDS ORDERED: NA CHLORIDE 0.9% 2,000 ML ONE (08:39)
[2019-08-07] MEDS ORDERED: PIPER/TAZO/NS 3.375gm 3.375 GM/100 ML BAG ONE ×2 (08:45→20:08)
[2019-08-07 08:50] LABS: ALT/SGPT 38 U/L (12-78); AST/SGOT 16 U/L (15-37); Albumin 3.3 g/dL (3.4-5.0); Alkaline Phosphatase 93 U/L (45-117); BUN Blood Urea Nitrogen 17 mg/dL (7-18); Bicarbonate 27 mmol/L (21-32); Bilirubin Direct < 0.1 mg/dL (0-0.2); Bilirubin Total 0.3 mg/dL (0.2-1.0); Glucose Level 226 mg/dL (74-106); NT PRO-BNP 44 pg/mL (<125); Potassium 4.3 mmol/L (3.5-5.1); Protein, Total 7.6 g/dL (6.4-8.2); Sodium Level 137 mmol/L (136-145); Troponin (Emerg Dept Use Only) < 0.02 ng/mL (0.0-0.045)
[2019-08-07] MEDS ORDERED: VANCOMYCIN 2 GM in NA CHLORIDE 0.9% 500 ML IVPB ONE (09:00)
--- NOTE | 2019-08-07 09:04 | RAD REPORT ---
EXAM DESCRIPTION: RAD - Chest Single View - 08/07/2019 7:58 am CLINICAL HISTORY: COUGH, body aches, fever COMPARISON: Two view chest August 2018 TECHNIQUE: AP portable chest image was obtained 08/07/2019 7:58 am . FINDINGS: No focal mass or consolidation. Inspiratory effort is diminished compared to the prior carina dy. Lung markings are not substantially different. Minimal edema or infiltrate could be masked in this setting. Heart size is normal. Vasculature is mildly increased but similar to comparison. No measurable pleura l effusion and no pneumothorax. No acute bony abnormality seen. No acute aortic findings suspected. IMPRESSION: No focal mass or consolidation. Mild edema or infiltrate could be masked by the baseline pattern and shallow inspiration affects.
--- NOTE | 2019-08-07 09:06 | RAD REPORT ---
EXAM DESCRIPTION: US - Extrem Venous W Compress Mukund - 08/07/2019 8:57 am CLINICAL HISTORY: Pain;Swelling, bilateral lower extremity edema pain COMPARISON: None. TECHNIQUE: Real-time sonographic evaluation of the bilateral lower extremity common femoral, superfi cial femoral, popliteal and posterior tibial veins was performed. FINDINGS: Normal compressibility, flow augmentation, phasic flow and spontaneous flow are identified in the left and right lower extremity common femoral, superficial femoral, popliteal and posterior t ibial veins. No intraluminal filling defects seen. Edema is seen in the superficial tissues of the di stal bilateral lower extremities. IMPRESSION: No DVT in either lower extremity.
[2019-08-07] MEDS ORDERED: MORPHINE 4 MG/ML SYR IV PRN (16:33)
[2019-08-07] MEDS ORDERED: GLUCAGON 1 MG/VIAL IM PRN (16:33)
[2019-08-07] MEDS ORDERED: ONDANSETRON 4 MG/2 ML VIAL IV PRN (16:33)
[2019-08-07] MEDS ORDERED: VANCOMYCIN/NS 1 gm 1 GM/250 ML BAG IVPB SCH (16:33)
[2019-08-07] MEDS: INSULIN -REGULAR HUMAN 50 UNIT/0.5 ML ML SQ SCH ×2 (16:33→20:00)
[2019-08-07] MEDS: NA CHLORIDE 0.9% 1,000 ML IV SCH (16:33)
[2019-08-07] MEDS ORDERED: D50W 25 GM/50 ML SYRINGE/VIAL IV PRN (16:33)
[2019-08-07] MEDS ORDERED: ENOXAPARIN 40 MG/0.4 ML SQ SCH (17:00)
[2019-08-07] MEDS: FAMOTIDINE 20 MG/2 ML VIAL IV SCH ×2 (20:05→21:00)
[2019-08-07] MEDS ORDERED: INSULIN -REGULAR HUMAN 50 UNIT/0.5 ML ML ONE (20:07)
[2019-08-07] MEDS ORDERED: ACETAMINOPHEN 325 MG TABLET ONE (20:07)
[2019-08-07] MEDS ORDERED: FAMOTIDINE 20 MG TAB ONE (20:07)
[2019-08-07] MEDS ORDERED: ENOXAPARIN 40 MG/0.4 ML SQ ONE (20:08)
--- NOTE | 2019-08-07 20:35 | HP ---
Date of Admission: 08/07/2019 Chief Complaint: Fever, chills, body ache, and leg pain. History Of Present Illness: This is a 54-year-old very pleasant male patient with morbid obesity, diabetes, hypertension, and history of recurrent cellulitis of lower extremity, came into emergency room with complaints of pain , redness of right leg associated with fever, chills, and generalized body ache. All the symptoms started last night. He came into emergency room early this morning after he was evaluated, he was admitted to hospital with cellulitis of right leg. Allergies: NO KNOWN ALLERGIES. Medications: List reviewed. Review of Systems: Constitutional: As mentioned above. Dermatology: As mentioned above. All other systems reviewed and negative. Social History: Negative for smoking and alcohol use. Family History: Significant for colon cancer, prostate cancer. Past Surgical History: Sinus surgery. Past Medical History: Hypertension, obstructive sleep apnea, cervical spinal stenosis, type 2 diabetes mellitus with hyperglycemia, lumbar radiculopathy, hyperlipidemia, recurrent cellulitis of lower extremity. Physical Examination: Vital Signs: Blood pressure 148/80, pulse 79, respiratory rate 18, temperature 98.8, oxygen saturation 96%. Weight 155.58 kg and height was not recorded correctly in the emergency room. It was recorded as 9 feet 3 inches, which is not accurate. General: Awake, alert, oriented, not in distress. HEENT: Head atraumatic, normocephalic. Conjunctivae nonerythematous. Sclerae white. Mouth, no thrush or edema noted. Ears/Nose, no mass, lesion, discharge noted. Neck: Supple. No JVD, lymph nodes, bruit, thyromegaly noted. Lungs: Bilateral good equal air entry. Clear to auscultation. No rhonchi. No rales. Heart: Normal heart sounds, no murmur or gallop. Abdomen: Morbidly obese, pendulous. Abdomen is soft, nontender. No guarding or rigidity. Bowel sounds normoactive. Extremities: Right lower extremity has pink, warm to touch and tender skin in area between knee and foot. No open wound. Both legs have trace edema, right leg has little more than the left leg. Skin: No rash, ulcer, cellulitis. Lymphatics: No lymph node enlargement in neck, supraclavicular, infraclavicular region. Neuro: No focal neurological deficit. Chest: Unremarkable. External Genitalia: Deferred. Rectal: Deferred. Laboratory Data: White count 10, hemoglobin 12.2, platelets 247. Sodium 137, potassium 4.3, chloride 105, bicarb 27, glucose 226, BUN 17, creatinine 1.06. Liver function test normal. Impression: 1. Cellulitis, right leg. 2. Hypertension. 3. Mixed hyperlipidemia. 4. Type 2 diabetes mellitus with hyperglycemia. 5. Morbid obesity. 6. Obstructive sleep apnea. Plan: Admit patient to hospital for further evaluation and management of this problem. Patient is appropriate for inpatient and is expected to spend 2 midnights in hospital. We will go ahead and start him on IV antibiotic, which is Zosyn and vancomycin. DVT prophylaxis will be given per order. Home medications will be continued. Diabetes will be managed with sliding scale insulin per order and I will see him tomorrow for followup. Details and plan of treatment discussed with him. WALT/MODL Voice ID: [id number] ANNIE
[2019-08-07] MEDS: ACETAMINOPHEN 325 MG TABLET PO PRN (20:40)
[2019-08-07] MEDS: PIPER/TAZO/NS 3.375gm 3.375 GM/100 ML BAG IVPB SCH (20:40)
[2019-08-07 21:57] VITALS: BMI 58.3
[2019-08-07] MEDS ORDERED: PIPER/TAZO/NS 3.375gm 6.750 GM/200 ML BAG ONE (22:53)
[2019-08-08] MEDS: PIPER/TAZO/NS 3.375gm 3.375 GM/100 ML BAG IVPB SCH ×2 (00:44→05:32)
[2019-08-08 01:01] VITALS: O2SAT 96
[2019-08-08] MEDS: NA CHLORIDE 0.9% 1,000 ML IV SCH ×2 (02:24→12:33)
[2019-08-08] MEDS: ACETAMINOPHEN 325 MG TABLET PO PRN (05:31)
[2019-08-08 06:26] LABS: Absolute Lymphocytes (CBC) 0.8 K/uL (0.7-4.9); Basophils % 0.7 % (0-1.3); Hematocrit 36.2 % (39.6-49.0); Lymphocytes % 13.1 % (15.3-44.8); MPV 7.5 fL (7.6-11.3); RBC Red Blood Cell Count 4.43 M/uL (4.33-5.43)
[2019-08-08 06:54] LABS: Potassium 3.8 mmol/L (3.5-5.1)
[2019-08-08] MEDS: INSULIN -REGULAR HUMAN 50 UNIT/0.5 ML ML SQ SCH ×2 (07:59→11:15)
[2019-08-08] MEDS: FAMOTIDINE 20 MG/2 ML VIAL IV SCH (07:59)
[2019-08-08] MEDS ORDERED: VANCOMYCIN 2 GM in NA CHLORIDE 0.9% 500 ML IVPB SCH (09:00)
--- NOTE | 2019-08-08 09:15 | EKG ---
Test Date: 2019-08-07 Test Time: 11:47:30 Powder Line Repairer: CHARLETTE MEASUREMENT RESULTS: Intervals: Rate: 68 NV: 164 QRSD: 108 QT: 408 QTc: 433 [place]: P: 35 NV: 164 QRS: 74 T: 52 INTERPRETIVE STATEMENTS: Normal sinus rhythm Incomplete right bundle branch block Borderline ECG Compared to ECG 05/29/2019 18:50:35 Myocardial infarct finding no longer present Electronically Signed On 08-08-19 09:13:32 CDT by Ifeanyi Blood
[2019-08-08] MEDS ORDERED: PIPER/TAZO/NS 3.375gm 3.375 GM/100 ML BAG IVPB SCH (11:45)
[2019-08-08 12:47] VITALS: BP 144/67; TEMP 98.6
--- NOTE | 2019-08-08 21:56 | DS ---
Date of Discharge: 08/08/2019 Patient was seen this morning for followup, lying in bed, not in any distress, feeling much better to day than yesterday. Leg pain is better. Objective: Vital Signs: Reviewed. HEENT: Unremarkable. Lungs: Clear to auscultation. No rhonchi or rales. Heart: Heart sounds normal. Abdomen: Soft, bowel sounds normal. No guarding, rigidity, tenderness, distention. Extremities: Trace leg edema. Right lower extremity has slightly pink, warm skin in the lower leg, but overall it is much better today than yesterday. No open wound. Laboratory Data: White count today 6.2, hemoglobin 11.8, platelets 230. Chemistry today, sodium 137 , potassium 3.8, chloride 104, bicarb 29, BUN 11, creatinine 0.89, glucose 189. Hospital Course: A 54-year-old male patient came into emergency room with fever, chills, body ache a nd right leg pain. Please see dictated H and P for more information. Patient has history of celluli tis of right leg on recurrent basis, came into emergency room after he was evaluated. He was admitte d to the hospital. IV vancomycin and IV Zosyn were started. Overnight, his condition has improved. Today, he feels a lot better. Medically, he is stable for discharge. I have instructed the patient to get list of supervisor sewing department in [facility] [place] or [facility] from his insurance company so I can refer him to one of the supervisor sewing department for his uncontrolled diabetes, because he re cently had appointment with a physician in [place] that he really thought was going to be endocrinol ogist, but he found out that he was a family medicine physician. Final Diagnoses: 1.Cellulitis, right leg. 2.Type 2 diabetes mellitus with hyperglycemia. 3.Hypertension. 4.Mixed hyperlipidemia. 5.Morbid obesity. 6.Obstructive sleep apnea. Discharge Medications: 1.Continue all prior home medications. 2.Take Augmentin 875 mg twice a day and doxycycline 100 mg twice a day for 10 days. Follow up at my office this week on on 08/12/2019. WALT/MODL Voice ID: [id number] Report ID: [id number]
== END 2019-08-08 13:55 | disposition home or self-care (01) ==
LOC: ER 06:48 → ERHOLD 07:58 → INTOOBSV 07:58 → 4TH 21:10
PROVIDERS: ADMIT Internal Medicine; ATTEND Internal Medicine
DX: L03.115 Cellulitis of right lower limb (principal); E11.65 Type 2 diabetes mellitus with hyperglycemia; I10 Essential (primary) hypertension; G47.33 Obstructive sleep apnea (adult) (pediatric); E78.2 Mixed hyperlipidemia; E66.01 Morbid (severe) obesity due to excess calories; Z68.43 Body mass index [BMI] 50.0-59.9, adult; Z80.42 Family history of malignant neoplasm of prostate; Z80.0 Family history of malignant neoplasm of digestive organs
CPT/HCPCS: 96365; 96367; 93005; 87040 ×2; 87088; 85025 ×2; 87086; 80048 ×2; 36415; 83735; 85610; 82947 ×4; 80076; 83605; 84484; 84145; 83880; 87804 ×2; 71045; 93970; 96375; 99285; 96366; J1650; J2543 ×4; J7040; J7030 ×3; J2405; G0378 ×3

== ENCOUNTER 2019-08-29 16:28 | Observation (INO) | payer BC ==
--- OUTSIDE RECORDS SUMMARY | 2019-08-29 16:32 | XMS REPORT ---
:1965 [facility] Address [address] [place] [address] [address] [place] [address] Care Team Providers Name Role Phone VIANNEYDANIKARA Unavailable Unavailable TAMMY BETANCOURT Unavailable Unavailable Problems This patient has no known problems. Allergies, Adverse Reactions, Alerts This patient has no known allergies or adverse reactions. Medications This patient has no known medications. Results Test Description Test Time Test Comments Text Results Atomic Results Result Comments [facility] 2017-01-28 05:57:00 Test Item Value Reference [...] EGFR if Non- >60 mL/min/1.73m\\S\\2 Estimated Glomerular Mexican (test Filtration Rate (eGFR) code=EGFRNA) Reference Intervals [...] of chronic kidney failure. CBC WITH AUTO [id number] 05:42:00 Test Item Value Reference Range Comments [...] 1.0-3.0 IG% (test code=IG%) 1.0 % 0.0-0.4 [id number] 05:53:00 Test Item Value Reference Range Comments [...] mL/min/1.73m\\S\\2 EGFR if Non- >60 Estimated Glomerular Mexican (test mL/min/1.73m\\S\\2 Filtration Rate (eGFR) code=EGFRNA) Reference [...] of chronic kidney failure. CBC WITH AUTO [id number] 05:27:00 Test Item Value Reference Range Comments [...] 1.0-3.0 IG% (test code=IG%) 1.7 % 0.0-0.4 [id number] 04:36:00 Test Item Value Reference Range Comments [...] mL/min/1.73m\\S\\2 EGFR if Non- >60 Estimated Glomerular [place] (test mL/min/1.73m\\S\\2 Filtration Rate (eGFR) code=EGFRNA) Reference [...] of chronic kidney failure. CBC WITH AUTO [id number] 04:14:00 Test Item Value Reference Range Comments [...] 1.0-3.0 IG% (test code=IG%) 1.9 % 0.0-0.4 [id number] 04:40:00 Test Item Value Reference Range Comments [...] mL/min/1.73m\\S\\2 EGFR if Non- >60 Estimated Glomerular [place] (test mL/min/1.73m\\S\\2 Filtration Rate (eGFR) code=EGFRNA) Reference [...] of chronic kidney failure. CBC WITH AUTO [id number] 04:09:00 Test Item Value Reference Range Comments [...] IG% (test code=IG%) 2.4 % 0.0-0.4 CULTURE, [id number] 06:50:00To start 15mins after 1st cultureSpecimen: BloodCollected: 01/18/2017 04:05 Status: Final Last Updated: 01/23/2017 06: 49 (1) To start 15mins after 1st culture Culture Result (Final) (Final ) No Growth After 5 DaysCULTURE, [id number] 06:50:00Specimen: BloodCollected: 01/18/2017 03:55 Status: Final Last Updated: 01/23/2017 06: 49 Culture Result (Final) (Final) No Growth After 5 DaysCBC WITH AUTO [id number] 04:31:00 Test Item Value Reference Range Comments [...] 1.0-3.0 IG% (test code=IG%) 3.4 % 0.0-0.4 [id number] 04:19:00 Test Item Value Reference Range Comments [...] mL/min/1.73m\\S\\2 EGFR if Non- >60 Estimated Glomerular [place] (test mL/min/1.73m\\S\\2 Filtration Rate (eGFR) code=EGFRNA) Reference [...] of chronic kidney failure. CBC WITH AUTO [id number] 04:57:00 Test Item Value Reference Range Comments [...] (test code=IG%) 4.0 % 0.0-0.4 CBC AUTO [id number] 04:35:00 Test Item Value Reference Range Comments [...] mL/min/1.73m\\S\\2 EGFR if Non- >60 Estimated Glomerular [place] (test mL/min/1.73m\\S\\2 Filtration Rate (eGFR) code=EGFRNA) Reference [...] of chronic kidney failure. CBC WITH AUTO [id number] 05:01:00 Test Item Value Reference Range Comments [...] (test code=IG%) 4.5 % 0.0-0.4 CBC AUTO [id number] 04:56:00 Test Item Value Reference Range Comments [...] mL/min/1.73m\\S\\2 EGFR if Non- >60 Estimated Glomerular [place] (test mL/min/1.73m\\S\\2 Filtration Rate (eGFR) code=EGFRNA) Reference [...] of chronic kidney failure. CBC WITH AUTO [id number] 05:57:00 Test Item Value Reference Range Comments [...] 1.0-3.0 IG% (test code=IG%) 4.8 % 0.0-0.4 [id number] 05:41:00 Test Item Value Reference Range Comments Magnesium (test code=MG) 2.0 mg/dl 1.6-2.3 [id number] 05:41:00 Test Item Value Reference Range Comments [...] mL/min/1.73m\\S\\2 EGFR if Non- >60 Estimated Glomerular [place] (test mL/min/1.73m\\S\\2 Filtration Rate (eGFR) code=EGFRNA) Reference [...] management of chronic kidney failure. LACTIC ACID [id number] 06:43:00 Test Item Value Reference Range Comments LACTATE (test code=LAC) 0.9 mmol/l 0.7-2.0 GLYCOSALATED [id number] 05:41:00 Test Item Value Reference Range Comments Hemoglobin A1C (test 9.06 % 4.3-6.0 code=GLYCO) Mean Plasma Glucose (test 245 mg/dl 90-180 WHEN TEST RESULTS FOR A1C code=MPG) EXCEED 14.0, THE LINEAR LIMIT OF THE INSTRUMENT, THE CALCULATED RESULT FOR THE MEAN GLUCOSE IS NOT RELIABLE. CORONARY [id number] 05:09:00 Test Item Value Reference Range Comments [...] Average vLDL (test code=VLDL) 37 mg/dl 30-60 [id number] 04:51:00 Test Item Value Reference Range Comments Magnesium (test code=MG) 2.1 mg/dl 1.6-2.3 [id number] 04:51:00 Test Item Value Reference Range Comments CPK (test code=CPK) 93 U/L 30-135 LIPASE, [id number] 04:43:00 Test Item Value Reference Range Comments Lipase (test code=LIPA) 116 U/L 8-223 [id number] 04:43:00 Test Item Value Reference Range Comments [...] mL/min/1.73m\\S\\2 EGFR if Non- >60 Estimated Glomerular [place] (test mL/min/1.73m\\S\\2 Filtration Rate (eGFR) code=EGFRNA) Reference [...]
--- NOTE | 2019-08-29 17:26 | RAD REPORT ---
EXAM DESCRIPTION: RAD - Chest Single View - 08/29/2019 5:22 pm CLINICAL HISTORY: Cough;Chest pain;Dyspnea Chest pain. COMPARISON: Chest Single View dated 08/07/2019; Chest Pa And Lat (2 Views) dated 08/30/2018; Chest Sing le View dated 06/11/2018; Chest Pa And Lat (2 Views) dated 04/13/2018 FINDINGS: Portable technique limits examination quality. The lungs are grossly clear. The heart is normal in size. No displaced fractures. IMPRESSION: No acute intrathoracic process suspected.
[2019-08-29 17:48] LABS: Absolute Lymphocytes (CBC) 1.4 K/uL (0.7-4.9); Hematocrit 37.8 % (39.6-49.0); Lymphocytes % 20.3 % (15.3-44.8); MPV 7.9 fL (7.6-11.3)
[2019-08-29 18:02] LABS: BUN Blood Urea Nitrogen 15 mg/dL (7-18); Bicarbonate 30 mmol/L (21-32); Glucose Level 135 mg/dL (74-106); NT PRO-BNP 59 pg/mL (<125); Sodium Level 141 mmol/L (136-145); Troponin (Emerg Dept Use Only) < 0.02 ng/mL (0.0-0.045)
--- NOTE | 2019-08-29 18:18 | EDPHYS ---
Physician Documentation [facility] Name: Nicola Harvey Age: 54 yrs Sex: Male : 1965 Arrival Date: 08/29/2019 Time: 16:30 Bed 15 Private MD: ED Physician Asael Bernal HPI: 08/28 16:54 This 54 yrs old Male presents to ER via Unassigned with complaints of Chest rn Pain, Fever, Headache. 16:54 The patient reports fever, not measured (subjective). Onset: The symptoms/episode rn began/occurred 3 day(s) ago. Modifying factors: there are no obvious modifying factors. Severity of symptoms: At their worst the symptoms were mild in the emergency department the symptoms are unchanged. The patient has not experienced similar symptoms in the past. The patient has not recently seen a physician. Reports 3 days of fever, malaise, chest pain, subjective sob, headache. Sent by PCP for COVID-19 testing. Patient reports chronic neck pain but no stiffness or new pain. No trauma. No cough. NO hemoptysis. NO known sick contacts or travel. . Historical: - Allergies: 17:06 Invokana; iw 17:06 Jardiance; iw - PMHx: 17:06 Diabetes - IDDM; Hyperlipidemia; Hypertension; lower back pain with injecitons; iw - PSHx: 17:06 sinus; iw - Immunization history:: Adult Immunizations up to date. - Social history:: Smoking status: Patient denies any tobacco usage or history of. - Family history:: not pertinent. - Hospitalizations: : No recent hospitalization is reported. ROS: 16:54 Constitutional: + fever Eyes: Negative for injury, pain, redness, and discharge, ENT: + rn sore throat Neck: Negative for injury, pain, and swelling, Cardiovascular: Negative for palpitations, and edema, Respiratory: Negative for wheezing Abdomen/GI: Negative for abdominal pain, nausea, vomiting, diarrhea, and constipation, MS/Extremity: Negative for injury and deformity, Skin: Negative for injury, rash, and discoloration, Neuro: Negative for weakness, numbness, tingling, and seizure. Exam: 16:54 Constitutional: This is a well developed, well nourished patient who is awake, alert, rn and in no acute distress. Head/Face: Normocephalic, atraumatic. Eyes: Periorbital areas with no swelling, redness, or edema. Cardiovascular: Regular rate and rhythm Respiratory: Speaking full sentences Skin: Dry MS/ Extremity: No cyanosis, moves all 4 extremities Neuro: Awake and alert, GCS 15, oriented to person, place, time, and situation. Cranial nerves II-XII grossly intact. Motor strength 5/5 in all extremities. Cerebellar exam normal. Normal gait. Vital Signs: 16:30 BP 158 / 74; Pulse 78; Resp 18 S; Temp 99.1(O); Pulse Ox 99% on R/A; Weight 156.04 kg; iw Height 5 ft. 10 in. (177.80 cm); 17:32 BP 147 / 62; Pulse 68; Resp 24; Pulse Ox 98% ; bp 19:12 BP 127 / 71; Pulse 75; Resp 21 S; Temp 99.1(TE); Pulse Ox 98% on R/A; jb4 16:30 Body Mass Index 49.36 (156.04 kg, 177.80 cm) iw MDM: 16:45 Patient medically screened. rn 18:13 Differential diagnosis: viral Infection, bacterial infection, URI, pneumonia COVID-19. rn Data reviewed: vital signs, nurses notes, lab test result(s), EKG, radiologic studies, plain films, and as a result, I will admit patient. Counseling: I had a detailed discussion with the patient and/or guardian regarding: the historical points, exam findings, and any diagnostic results supporting the discharge/admit diagnosis, lab results, radiology results, the need for further work-up and treatment in the hospital. Admission orders: after a detailed discussion of the patient's condition and case, the admit orders are written by me. ED course: Pt still with chest pain, dyspnea, difficult to tell if infectious or cardiac. Patient reports does not feel ill but + dyspnea on exertion and chest pain. Reports neg stress test 2 years ago but no recent testing. Will admit to Dr. Mcknight for further eval and testing given still tachypneic and intermittent chest pain. 08/28 16:50 Order name: COVID-19 rn 08/28 16:50 Order name: Flu; Complete Time: 18:05 rn 08/28 16:50 Order name: Strep; Complete Time: 18: rn 08/28 16:50 Order name: Troponin (emerg Dept Use Only); Complete Time: 18:05 rn 08/28 16:51 Order name: CBC with Diff; Complete Time: 18:05 rn 08/28 16:51 Order name: Basic Metabolic Panel; Complete Time: 18:05 rn 08/28 16:50 Order name: IV Start; Complete Time: 17:31 rn 08/28 16:50 Order name: CXR XRAY; Complete Time: 17:31 rn 08/28 16:50 Order name: Droplet/Contact Precautions; Complete Time: 16:51 rn 08/28 16:50 Order name: Labs collected and sent; Complete Time: 17:31 rn 08/28 16:50 Order name: O2 Per Protocol; Complete Time: 17:31 08/28 16:50 Order name: EKG; Complete Time: 16:51 rn 08/28 16:51 Order name: N-Terminal Pro-brain Natriuretic Peptide; Complete Time: 18: 08/28 18:01 Order name: Throat Culture [facility] 08/28 16:50 Order name: EKG - Nurse/Tech; Complete Time: 16:51 rn Administered Medications: No medications were administered Disposition: 08/29/19 18:17 Hospitalization ordered by Harjeet Mcknight for Observation. Preliminary diagnosis are Chest pain, unspecified, Dyspnea, unspecified. - Bed requested for Telemetry/MedSurg (observation). - Status is Observation. jb4 - Condition is Stable. - Problem is new. - Symptoms have improved. Signatures: Dispatcher [employer] EDNE Janay Watts RN RN Asael Bernal MD MD rn Garcia, Cindy, RN RN Delfin Hopkins RN RN jb4 Corrections: (The following items were deleted from the chart) 19:10 18:17 Hospitalization Ordered by Harjeet Mcknight MD for Observation. Preliminary diagnosis cg is Chest pain, unspecified; Dyspnea, unspecified. Bed requested for Telemetry/MedSurg (observation). Status is Observation. Condition is Stable. Problem is new. Symptoms have improved. rn 19:11 19:10 08/29/2019 18:17 Hospitalization Ordered by Harjeet Mcknight MD for Observation. cg Preliminary diagnosis is Chest pain, unspecified; Dyspnea, unspecified. Bed requested for Telemetry/MedSurg (observation). Status is Observation. Condition is Stable. Problem is new. Symptoms have improved. cg 20:11 19:11 08/29/2019 18:17 Hospitalization Ordered by Harjeet Mcknight MD for Observation. jb4 Preliminary diagnosis is Chest pain, unspecified; Dyspnea, unspecified. Bed requested for Telemetry/MedSurg (observation). Status is Observation. Condition is Stable. Problem is new. Symptoms have improved. cg
--- NOTE | 2019-08-29 18:18 | ER ---
Nurse's Notes [facility] Name: Nicola Harvey Age: 54 yrs Sex: Male : 1965 Arrival Date: 08/29/2019 Time: 16:30 Bed 15 Private MD: Diagnosis: Chest pain, unspecified;Dyspnea, unspecified Presentation: 08/28 16:30 Chief complaint: Patient states: has had chest pain, SOB on exertion, headache since iw Friday, started running fever today, was 100.3 at home, also has a cough but it feels like his allergies. Coronavirus screen: Surgical mask placed on patient. Patient moved to private room, placed in contact and droplet isolation with eye protection until further assessment. Patient reports a cough. Patient reports shortness of breath or difficulty breathing. Patient reports a measured and/or subjective temperature greater than 100.4F. Patient denies travel on a cruise ship or to a country the [facility] [place]NOTE 2[place] currently lists as an affected area. Patient denies contact with known and/or suspected case of COVID-19. Ebola Screen: Patient negative for fever greater than or equal to 101.5 degrees Fahrenheit, and additional compatible Ebola Virus Disease symptoms Patient denies exposure to infectious person. Patient denies travel to an Ebola-affected area in the 21 days before illness onset. No symptoms or risks identified at this time. 16:30 Method Of Arrival: Ambulatory iw 16:30 Acuity: ANGE 3 iw 16:30 Risk Assessment: Do you want to hurt yourself or someone else? Patient reports no iw desire to harm self or others. 17:04 Initial Sepsis Screen: Does the patient meet any 2 criteria? Does the patient have a iw suspected source of infection? No. Patient's initial sepsis screen is negative. Onset of symptoms was August 25, 2019. Triage Assessment: 16:30 General: Appears in no apparent distress. comfortable, obese, Behavior is cooperative, bp appropriate for age, anxious. Pain: Complains of pain in chest and neck. EENT: No deficits noted. Neuro: No deficits noted. Cardiovascular: Rhythm is sinus rhythm. Respiratory: No deficits noted. GI: No signs and/or symptoms were reported involving the gastrointestinal system. : No signs and/or symptoms were reported regarding the genitourinary system. Derm: No deficits noted. Musculoskeletal: No deficits noted. Historical: - Allergies: 17:06 Invokana; iw 17:06 Jardiance; iw - PMHx: 17:06 Diabetes - IDDM; Hyperlipidemia; Hypertension; lower back pain with injecitons; iw - PSHx: 17:06 sinus; iw - Immunization history:: Adult Immunizations up to date. - Social history:: Smoking status: Patient denies any tobacco usage or history of. - Family history:: not pertinent. - Hospitalizations: : No recent hospitalization is reported. Screenin:30 Abuse screen: Denies threats or abuse. Denies injuries from another. Nutritional bp screening: No deficits noted. Tuberculosis screening: No symptoms or risk factors identified. Fall Risk None identified. Assessment: 16:30 General: SEE TRIAGE NOTE. bp 17:32 Reassessment: ALL CURRENT ORDERS COMPLETED, RESULTS PENDING. bp 19:12 Reassessment: Patient appears in no apparent distress at this time. Patient and/or jb4 family updated on plan of care and expected duration. Pain level reassessed. Patient is alert, oriented x 3, equal unlabored respirations, skin warm/dry/pink. Pt reports pain is the same as when he arrived to ED. rated at 7/10. Breath sounds are clear bilaterally. 19:30 Reassessment: Report called to KRUNAL Zaragoza. jb4 Vital Signs: 16:30 BP 158 / 74; Pulse 78; Resp 18 S; Temp 99.1(O); Pulse Ox 99% on R/A; Weight 156.04 kg; iw Height 5 ft. 10 in. (177.80 cm); 17:32 BP 147 / 62; Pulse 68; Resp 24; Pulse Ox 98% ; bp 19:12 BP 127 / 71; Pulse 75; Resp 21 S; Temp 99.1(TE); Pulse Ox 98% on R/A; jb4 16:30 Body Mass Index 49.36 (156.04 kg, 177.80 cm) ED Course: 16:30 Patient arrived in ED. ag5 16:30 Arm band placed on. bp 16:30 Patient has correct armband on for positive identification. Bed in low position. Call bp light in reach. Side rails up X2. monitor worker on. Pulse ox on. NIBP on. 16:33 Ronnie Marquez RN is Primary Nurse. bp 16:45 Asael Bernal MD is Attending Physician. rn 17:03 Triage completed. iw 17:20 Inserted saline lock: 20 gauge in right antecubital area, using aseptic technique. bp Blood collected. 17:20 Patient maintains SpO2 saturation greater than 95% on room air. bp 17:22 CXR XRAY In Process Unspecified. EDMS 18:17 Harjeet Mcknight MD is Hospitalizing Provider. rn 18:31 Health Dept notified/ COVID test sent to lab/ pending PUI #. eb 19:31 No provider procedures requiring assistance completed. Patient admitted, IV remains in jb4 place. Administered Medications: No medications were administered Outcome: 18:17 Decision to Hospitalize by Provider. rn 19:31 Admitted to Tele accompanied by tech, via stretcher, room 417, with chart, Report jb4 called to KRUNAL Zaragoza 19:31 Condition: stable 19:31 Discharge instructions given to patient, Instructed on the need for admit, Demonstrated understanding of instructions. 20:11 Patient left the ED. jb4 Addendum: 09/01/2019 17:20 Addendum: Other Attempted to contact patient regarding negative COVID-19. Left voice d m5 mail. Signatures: Dispatcher [employer] EDKS Maira Ennis RN RN [id number] Janay Watts RN RN iw Nieto, Roman, MD MD rn Bryson, James, RN RN jb4 Ronnie Marquez RN RN bp Botello, Elizabeth eb Gaskin, Ajare ag5 Corrections: (The following items were deleted from the chart) 04 19:31 19:12 Reassessment: Patient appears in no apparent distress at this time. Patient jb4 and/or family updated on plan of care and expected duration. Pain level reassessed. Patient is alert, oriented x 3, equal unlabored respirations, skin warm/dry/pink. Pt reports pain is the same as when he arrived to ED. rated at 7/10. jb4
[2019-08-29] MEDS ORDERED: ONDANSETRON 4 MG/2 ML VIAL IV PRN (21:37)
[2019-08-29] MEDS ORDERED: ACETAMINOPHEN 500 MG TAB PO PRN (21:37)
[2019-08-30 01:03] VITALS: BMI 48.9
[2019-08-30 03:19] LABS: Absolute Lymphocytes (CBC) 1.7 K/uL (0.7-4.9); Basophils % 0.9 % (0-1.3); Hematocrit 36.7 % (39.6-49.0); Lymphocytes % 25.1 % (15.3-44.8); MPV 7.7 fL (7.6-11.3); RBC Red Blood Cell Count 4.54 M/uL (4.33-5.43)
[2019-08-30 03:32] LABS: Potassium 4.2 mmol/L (3.5-5.1)
[2019-08-30] MEDS ORDERED: ASPIRIN EC 81 MG TAB PO SCH (09:00)
[2019-08-30 10:05] VITALS: BP 150/77; TEMP 96.5
[2019-08-30 10:12] VITALS: O2SAT 97
--- NOTE | 2019-08-30 16:48 | EKG ---
Test Date: 2019-08-30 Test Time: 08:18:41 Distributor Of Directories: PRAVEEN MEASUREMENT RESULTS: Intervals: Rate: 60 WA: 160 QRSD: 104 QT: 430 QTc: 430 [place]: P: 36 WA: 160 QRS: 86 T: 57 INTERPRETIVE STATEMENTS: Normal sinus rhythm Incomplete right bundle branch block Borderline ECG Compared to ECG 08/29/2019 16:45:30 No significant changes Electronically Signed On 08-30-19 16:47:19 CDT by Ifeanyi Blood
--- NOTE | 2019-08-30 16:50 | EKG ---
Test Date: 2019-08-29 Test Time: 16:45:30 [employer] Director: CHARLETTE MEASUREMENT RESULTS: Intervals: Rate: 80 MS: 142 QRSD: 110 QT: 378 QTc: 435 [place]: P: 33 MS: 142 QRS: 78 T: 60 INTERPRETIVE STATEMENTS: Normal sinus rhythm Incomplete right bundle branch block Borderline ECG Compared to ECG 08/07/2019 11:47:30 No significant changes Electronically Signed On 08-30-19 16:47:38 CDT by Ifeanyi Blood
--- NOTE | 2019-08-30 20:14 | CON ---
Date of Consultation: 08/30/[address] Mcknight on 08/29/2019. I saw the patient on 08/30/2019. Reason For Consultation: Chest pain. History Of Present Illness: Mr. Harvey is a 54-year-old male, very well-known to me fr om the past. He has had a stress test in my office approximately 2 years ago. He came in with rathe r mid epigastric chest pain that radiated to the back without any nausea, vomiting, diaphoresis. Den ied PND, orthopnea, pedal edema. Has had some palpitations, but no syncope. Had not had any fever o r chills or cough. He was in the hospital in July of 2019 for cellulitis. His workup by the time I saw him included chest x-ray, EKG, and laboratory evaluation that were all negative. He remains wit h some with some slight discomfort, but is much improved since his admission. Past Medical History: Hypertension and diabetes. Allergies: NONE. Review of Systems: Negative. Social History: Negative. Family History: Positive for heart disease. Medications At Home: Lisinopril, Norvasc, hydralazine, Cardura, metoprolol, insulin, and metformin. Physical Examination: Vital Signs: He weighed 344 pounds. His vital signs were otherwise stable. He was afebrile. HEENT: Negative. Neck: Supple without any bruit, lymphadenopathy, JVD, or thyromegaly. Chest: Clear to auscultation and percussion. Cardiac: Regular rhythm and rate. No murmurs, gallops, or rubs. Abdomen: Obese but benign. Extremities: No clubbing, cyanosis, or edema. Diagnostic Data: All normal. Impression And Plan: Atypical chest pain in a patient with many risk factors for heart disease inclu ding diabetes, hypertension, obesity. His symptoms are rather atypical. This certainly could be a g astroesophageal reflux disease issue or may be gallstone, but nevertheless with symptoms like this, I think a cardiac workup is indicated and I think he should have an echocardiogram and an MPI in the n ear future. He can certainly have that done as an outpatient. The case was discussed with Dr. Mcknight. RYAN/MODL Voice ID: [id number] Report ID: [id number]
--- NOTE | 2019-08-30 21:11 | DS ---
Date of Discharge: 08/30/2019 Chief Complaint: Fever, shortness of breath, chest pain, muscle aches. History Of Present Illness: A 54-year-old male patient, who called me yesterday and was concerned ab out Nelson virus infection. He reported symptoms as outlined above including fever, generalized body ache, muscle aches, some shortness of breath with activity, and chest pain. He was advised to come to emergency room with all these symptoms. I did call ER physician and informed the ER physician reg arding this and the patient was instructed to stay in his car and to call emergency room once he come s to the parking lot, so the emergency room staff can assist him how to get into the emergency room w ith appropriate precautions. After patient was evaluated in the ER, he was admitted to the hospital. This morning, when I saw him, he was sitting in chair, feeling much better than yesterday, did not have any complaints this morning when I saw him. He denies any expectoration. No chest pain this mo rning. No shortness of breath when I saw him this morning. Prior to my arrival, he was already eval uated by fleet sales manager as well. Allergies: NO KNOWN ALLERGIES. Medications: List reviewed. Review of Systems: Cardiovascular: As mentioned above. Respiratory: As mentioned above. Constitutional: As mentioned above. All other systems reviewed and negative. Social History: Negative for smoking and alcohol use. Family History: Significant for colon cancer, prostate cancer. Past Surgical History: Sinus surgery. Past Medical History: Hypertension, obstructive sleep apnea, cervical spinal stenosis, type 2 diabet es mellitus with hyperglycemia, lumbar radiculopathy, hyperlipidemia, recurrent cellulitis of lower e xtremity. Physical Examination: Vital Signs: This morning, height 5 feet 10 inches, weight 341 pounds, temperature 97.5, pulse 66, r espiratory rate 16, blood pressure 155/63, oxygen saturation 100%. General: Awake, alert, oriented, not in distress. HEENT: Head atraumatic, normocephalic. Conjunctivae nonerythematous. Sclerae white. Mouth, no thr ush or edema noted. Ears/Nose, no mass, lesion, discharge noted. Neck: Supple. No JVD, lymph nodes, bruit, thyromegaly noted. Lungs: Bilateral good equal air entry. Clear to auscultation. No rhonchi. No rales. Heart: Normal heart sounds, no murmur or gallop. Abdomen: Soft, bowel sounds normal. No guarding, rigidity, tenderness, mass, hepatosplenomegaly, dis tention, or bruit noted. Extremities: No leg edema. No calf tenderness. Skin: No rash, ulcer, cellulitis. Lymphatics: No lymph node enlargement in neck, supraclavicular, infraclavicular region. Neuro: No focal neurological deficit. Chest: Unremarkable. External Genitalia: Deferred. Rectal: Deferred. Laboratory Data: Yesterday, white count 6.7, hemoglobin 12.3, platelets 261. This morning, white co unt 6.9, hemoglobin 11.8, platelets 244. Yesterday, sodium 141, potassium 4, chloride 107, bicarb 30, BUN 15, creatinine 0.96, glucose 135. Troponin less than 0.02 x 3. BNP 59. This morning, sodium 1 40, potassium 4.2, chloride 106, bicarb 31, BUN 16, creatinine 0.95, glucose 194. Influenza A and B screen negative. Streptococcal screen negative. COVID-19 test pending. Chest x-ray, no acute cardi opulmonary changes. EKG, no acute ST-T changes. Hospital Course: After patient was evaluated in the ER, was admitted to the hospital and AK was rule d out. This morning, he was asymptomatic, feeling fine. Cardiology, Dr. Blood evaluated him and h e will follow up with the patient on outpatient basis to do further outpatient cardiac workup includi ng echo and stress test. Details and plan of treatment discussed with the patient. Patient was advi sed that upon discharge from the hospital, he should stay at home in isolation and nursing staff to p rovide appropriate isolation precautions to him upon discharge. Patient was instructed to follow up at my office on Friday, which is day after tomorrow and patient to call office to schedule this ap pointment and it will be tele-health with visit. By that time, hopefully, we should have his COVID-1 9 test results back. He was instructed to continue all his prior home medications upon discharge. Final Diagnoses: 1.Chest pain. 2.Shortness of breath. 3.Rule out COVID-19. 4.Hypertension. 5.Hyperlipidemia. 6.Type 2 diabetes mellitus, with hyperglycemia. 7.Obstructive sleep apnea. 8.Cervical spinal stenosis. 9.Lumbar radiculopathy. WALT/MODL Voice ID: [id number] Report ID: [id number]
== END 2019-08-30 12:29 | disposition home or self-care (01) ==
LOC: ER 16:28 → ERHOLD 18:20 → 4TH 19:29
PROVIDERS: ADMIT Internal Medicine; ATTEND Internal Medicine
DX: R07.89 Other chest pain (principal); R06.02 Shortness of breath; Z03.818 Encounter for observation for suspected exposure to other biological agents ruled out; I10 Essential (primary) hypertension; E11.65 Type 2 diabetes mellitus with hyperglycemia; E78.5 Hyperlipidemia, unspecified; G47.33 Obstructive sleep apnea (adult) (pediatric); E66.9 Obesity, unspecified; Z68.42 Body mass index [BMI] 45.0-49.9, adult; M48.02 Spinal stenosis, cervical region; M54.16 Radiculopathy, lumbar region; Z82.49 Family history of ischemic heart disease and other diseases of the circulatory system
CPT/HCPCS: 93005 ×2; 87070; 85025 ×2; 80048 ×2; 36415; 82947 ×2; 87081; 84484 ×3; 83880; 87804 ×2; 71045; 99285; U0001; G0378 ×3

== ENCOUNTER 2019-10-15 07:20 | Day surgery (SDC) | payer BC, OTHER ==
[2019-10-14 14:29] LABS: Absolute Lymphocytes (CBC) 1.2 K/uL (0.7-4.9); Basophils % 0.8 % (0-1.3); Hematocrit 39.1 % (39.6-49.0); Lymphocytes % 17.7 % (15.3-44.8); MPV 8.1 fL (7.6-11.3); RBC Red Blood Cell Count 4.73 M/uL (4.33-5.43)
[2019-10-14 14:45] LABS: Potassium 4.3 mmol/L (3.5-5.1)
--- OUTSIDE RECORDS SUMMARY | 2019-10-15 07:24 | XMS REPORT | Continuity of Care Document ---
:1965 Author Organization [facility] Care Team Providers Name Role Phone [facility] Unavailable Un available Problems Problem Status Onset Classification Date Comments Sourc e Date Reported LUMBAR STENOSIS Active [address] M54.[address] Abdominal pain Resolved Problem 12/07/2017 Misc her (finding) Neuro,[facility] Chest pain (finding) Resolved Problem 12/07/2017 [facility] Neuro,[facility] Chronic back pain Resolved Problem 12/07/2017 M ischer (disorder) Neuro,[facility] Diabetes mellitus Active Problem 12/07/2017 M ischer (disorder) Neuro,[facility] Hypercholesterolemia Active Problem 12/07/2017 Mischer (disorder) Neuro,[facility] Hypertensive disorder, Active Problem 12/07/2017 Mischer systemic arterial Ne uro, (disorder) [facility] Morbid obesity Active Problem 12/07/2017 Misc her (disorder) Neuro,[facility] 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 Neuro, (disorder) [facility] Medications Medication Details Route Status Patient Ordering Order Source Instructions Provider Date amitriptyline 10 10 mg = 1 Active Misch er mg oral tablet tab, PO, 017 Neuro Bedtime, 4 tabs at bedtime for 1 week then 5 tabs at bedtime thereafter , # 150 tab, 2 Refill(s), Pharmacy: [id number] diclofenac sodium 75 mg = 1 Active Misc her 75 mg oral enteric tab, PO, 017 Neur o coated, BID, PRN delayed-release Pain Score tablet 7-10, # 60 tab, 2 Refill(s), Pharmacy: [id number] Cyclobenzaprine 10 mg = 1 Active Mische r hydrochloride 10 tab, PO, 017 Neuro MG Oral Tablet BID, # 60 [Flexeril] tab, 2 Refill(s), Pharmacy: [id number] Sodium Chloride 4.2 mL, Inactive Mischer Route: 017 Neuro EPIDURAL, Dosing Weight 141.364, kg, ONCE, (Preservat liliana Free), Start date: 04/25/17 8:50:00 BLAST HOLE DRILLER, Stop date: 04/25/17 8:50:00 BLAST HOLE DRILLER Lidocaine 3 mL, Inactive Mischer Hydrochloride 10 Route: 017 Neuro MG/ML Injectable SUB-Q, Solution Dosing Weight 141.364, kg, ONCE, (Preservat liliana Free), Start date: 04/25/17 8:50:00 BLAST HOLE DRILLER, Stop date: 04/25/17 8:50:00 BLAST HOLE DRILLER Omnipaque 300 2 mL, Inactive Mischer Route: 017 Neuro EPIDURAL, Dosing Weight 141.364, kg, ONCE, (Preservat liliana Free), Start date: 04/25/17 8:50:00 BLAST HOLE DRILLER, Stop date: 04/25/17 8:50:00 BLAST HOLE DRILLER Dexamethasone 8 mg, Inactive Mischer Route: 017 Neuro EPIDURAL, ONCE, Dosing Weight 141.364, kg, (Preservat liliana Free), Start date: 04/25/17 8:50:00 BLAST HOLE DRILLER, Stop date: 04/25/17 8:50:00 BLAST HOLE DRILLER Bupivacaine 2 mL, Inactive Mischer Hydrochloride 2.5 Route: 017 Neuro MG/ML Injectable EPIDURAL, Solution Dosing Weight 141.364, kg, ONCE, (Preservat liliana Free), Start date: 04/25/17 8:50:00 BLAST HOLE DRILLER, Stop date: 04/25/17 8:50:00 BLAST HOLE DRILLER Allergies, Adverse Reactions, Alerts No Known Medication Allergies Immunizations No Data Provided for This Section Results Order Name Results Value Reference Date Interpretation Comments Danica rce Range HEMATOLOGY PTT 29.4 22.9 - 35.[address] HEMATOLOGY PT 12.8 12.0 - 14.[address] HEMATOLOGY INR 0.96 0.85 - 1.[address] CHEM PANEL eGFR [address] [id number] Comment: The Medical eGFR is Center calculated using the CKD-EPI formula. In most young, healthy individuals the eGFR will be >90 mL/min/1.73m2 . The eGFR declines with age. An eGFR of 60-89 may be normal in some populations, particularly the elderly, for whom the CKD-EPI formula has not been extensively validated. Use of the eGFR is not recommended in the following populations:< br/>
Rosemarie viduals with unstable creatinine concentration s, including patients and those with serious co-morbid conditions.<b r/>
Patie nts with extremes in muscle mass or diet.

The data above are obtained from the National Kidney Disease Education Program (NKDEP) which additionally recommends that when the eGFR is used in patients with extremes of body mass index for purposes of drug dosing, the eGFR should be multiplied by the estimated BMI. CHEM PANEL Creatinine 0.92 0.50 - 1.40 04/[address] CHEM PANEL BUN 21 7 - 22 04/[address] HEMATOLOGY MCV 84.7 80.0 - 94.0 04/[address] HEMATOLOGY Hct 41.3 42.0 - 54.0 04/[address] HEMATOLOGY MCH 27.9 27.0 - 31.0 04/[address] HEMATOLOGY MCHC 32.9 32.0 - 36.0 04/[address] HEMATOLOGY WBC 7.2 3.7 - 10.4 04/[address] HEMATOLOGY RBC 4.87 4.70 - 6.10 04/[address] HEMATOLOGY Hgb 13.6 14.0 - 18.[address] HEMATOLOGY RDW 16.1 11.5 - 14.5 04/[address] HEMATOLOGY Platelet 239 133 - 450 04/[address] HEMATOLOGY MPV 8.0 7.4 - 10.4 04/[address] Pathology Reports No Data Provided for This Section Diagnostic Reports Report Value Date Source Spine thoracic EXAM: [facility] CT MY[facility] THORACIC SPINE Center EXAM: FLUOROSCOPY-GUIDED LUMBAR PUNCTURE FOR CT MYELOGRAM DATE: 04/29/2017 1012 hours INDICATION: Lumbar stenosis COMPARISON: None. PROCEDURE: An interlaminar l umbar puncture was carried out under fluoroscopic guidance with a 22 gauge 5' long spinal Quincke needle at the level of L2-L3 under the usual sterile conditions and local an esthesia. 12 mL of Iohexol-240 was instilled int o the lumbar thecal sac. MYELOGRAMS: During the inje ction of contrast it was noted that the lumbar thecal sac was diffusely narrowed. Much of the injected contrast the lumbar spine preferentially flowed into the thoracic spina l canal. The lumbar spinal c anal was narrowed and a smaller amount of contrast was entering the mid and lower lumbar spinal canal. The patient was therefore kept in a lateral decubitus position for 30 m inutes prior to CT scanning for better distribut ion of the contrast density. FLUOROSCOPIC TIME: 0.[address] Fraser, was present for the procedure. TECHNIQUE: Volumetric acqui sition of the thoracic and lumbar spine, from the level of T 1 through the sacrum. The 1st image set showed adequate opacification of the lumbar and lower thoracic spine. Del ayed images after one hour s howed excellent opacification of the remainder of the thoracic spine DLP: 1451 mGy-cm FINDINGS: THORACIC AND LUMBAR SPINE: Alignment of the thoracic sp ine is maintained. Intervertebral discs are normal. The spinal alignment is normal with presumably trauma related kyphotic deformity at L1-L2 as noted below. The thoracic spi nal canal is normal in size. Congenitally short pedicles are present from L2 to L5. The thoracic cord is normal in size and shape. Normal conus level at T12-L1. INDIVIDUAL LEVELS: T1-T2: Normal T2-T3 and T3-T4: Facet arthr opathy on the left with bone spurs indenting the thecal sac from posteriorly. T4-T5: Normal T5-T6 and T6-T7: Midline bone spurs indenting th e thecal sac. T7-T8: Tiny endplate spur on the right without n eural compromise. T8-T9: Normal T9-T10: Disc osteophyte comp janet on the right abutting the cord with minimal cord deformity. T10-T11: Normal T11-T12: Uncovertebral bone spur on the left narrowing the foramen with encroachment upon the exiting left T11 nerve root T12-L1: Large disc osteophyt e complex on the left side slightly indenting the ventral conus and extending into the foramen with encroachment upon the exiting left T12 nerve root. L1-L2: Spinal canal stenosi s caused by central and left lateral vertebral osteophytes resulting in crowding of the cauda equina nerve roots. Anterior wedge deformity of the L1 and L2 vertebral bodies w ith large anterior osteophyt es most likely due to old trauma. Mild to moderate kyphotic deformity at this level. L2-L3: Disc osteophyte compl ex indenting the thecal sac with crowding of the cauda equina roots. L3-L4: Bulging posterior chacorta ulus. Crowding of the cauda equina nerve roots. Vacuum disc phenomenon. L4-L5: Mildly diffusely bulg ing posterior annulus. Mild facet enlargement. Constriction of the thecal sac and mild crowding of cauda equina nerve roots. L5-S1: Normal IMPRESSION: 1. Acquired on congenital s desean stenosis from T9 through L4, due spondylotic disc osteophyte complexes, greatest from T12 to L2. 2. Cord and conus indentation by bone spurs fro m T9 down to L1. 3. Crowding of the cauda eq uina nerve roots by posterior endplate osteophytes from L1 to L2-L3, and by the combination of bulging discs and the congenital stenosis of the spinal canal at L3-L4 and L4-L5. 4. Constriction of the thec al sac is crowding of cauda equina nerve roots from L4 to L5. 5. Foraminal stenoses at T1 1-T12, T12-L1 and L1-L2 with encroachment upon the exiting nerve roots. Spine lumbar myelogram EXAM: CT MYELOGRAM LUMBAR SPINE 7 [facility] CT EXAM: CT MYELOGRAM THORACIC SPINE Center EXAM: FLUOROSCOPY-GUIDED LUMBAR PUNCTURE FOR CT MYELOGRAM DATE: 04/29/2017 1012 hours INDICATION: Lumbar stenosis COMPARISON: None. PROCEDURE: An interlaminar l umbar puncture was carried out under fluoroscopic guidance with a 22 gauge 5' long spinal Quincke needle at the level of L2-L3 under the usual sterile conditions and local an esthesia. 12 mL of Iohexol-240 was instilled int o the lumbar thecal sac. MYELOGRAMS: During the inje ction of contrast it was noted that the lumbar thecal sac was diffusely narrowed. Much of the injected contrast the lumbar spine preferentially flowed into the thoracic spina l canal. The lumbar spinal c anal was narrowed and a smaller amount of contrast was entering the mid and lower lumbar spinal canal. The patient was therefore kept in a lateral decubitus position for 30 m inutes prior to CT scanning for better distribut ion of the contrast density. FLUOROSCOPIC TIME: 0.[address] Fraser, was present for the procedure. TECHNIQUE: Volumetric acqui sition of the thoracic and lumbar spine, from the level of T 1 through the sacrum. The 1st image set showed adequate opacification of the lumbar and lower thoracic spine. Del ayed images after one hour s howed excellent opacification of the remainder of the thoracic spine DLP: 1451 mGy-cm FINDINGS: THORACIC AND LUMBAR SPINE: Alignment of the thoracic sp ine is maintained. Intervertebral discs are normal. The spinal alignment is normal with presumably trauma related kyphotic deformity at L1-L2 as noted below. The thoracic spi nal canal is normal in size. Congenitally short pedicles are present from L2 to L5. The thoracic cord is normal in size and shape. Normal conus level at T12-L1. INDIVIDUAL LEVELS: T1-T2: Normal T2-T3 and T3-T4: Facet arthr opathy on the left with bone spurs indenting the thecal sac from posteriorly. T4-T5: Normal T5-T6 and T6-T7: Midline bone spurs indenting th e thecal sac. T7-T8: Tiny endplate spur on the right without n eural compromise. T8-T9: Normal T9-T10: Disc osteophyte comp janet on the right abutting the cord with minimal cord deformity. T10-T11: Normal T11-T12: Uncovertebral bone spur on the left narrowing the foramen with encroachment upon the exiting left T11 nerve root T12-L1: Large disc osteophyt e complex on the left side slightly indenting the ventral conus and extending into the foramen with encroachment upon the exiting left T12 nerve root. L1-L2: Spinal canal stenosi s caused by central and left lateral vertebral osteophytes resulting in crowding of the cauda equina nerve roots. Anterior wedge deformity of the L1 and L2 vertebral bodies w ith large anterior osteophyt es most likely due to old trauma. Mild to moderate kyphotic deformity at this level. L2-L3: Disc osteophyte compl ex indenting the thecal sac with crowding of the cauda equina roots. L3-L4: Bulging posterior chacorta ulus. Crowding of the cauda equina nerve roots. Vacuum disc phenomenon. L4-L5: Mildly diffusely bulg ing posterior annulus. Mild facet enlargement. Constriction of the thecal sac and mild crowding of cauda equina nerve roots. L5-S1: Normal IMPRESSION: 1. Acquired on congenital s desean stenosis from T9 through L4, due spondylotic disc osteophyte complexes, greatest from T12 to L2. 2. Cord and conus indentation by bone spurs fro m T9 down to L1. 3. Crowding of the cauda eq uina nerve roots by posterior endplate osteophytes from L1 to L2-L3, and by the combination of bulging discs and the congenital stenosis of the spinal canal at L3-L4 and L4-L5. 4. Constriction of the thec al sac is crowding of cauda equina nerve roots from L4 to L5. 5. Foraminal stenoses at T1 1-T12, T12-L1 and L1-L2 with encroachment upon the exiting nerve roots. Spine lumbar myelogram EXAM: CT MYELOGRAM LUMBAR SPINE 7 [facility] EXAM: CT MYELOGRAM THORACIC SPINE Center EXAM: FLUOROSCOPY-GUIDED LUMBAR PUNCTURE FOR CT MYELOGRAM DATE: 04/29/2017 1012 hours INDICATION: Lumbar stenosis COMPARISON: None. PROCEDURE: An interlaminar l umbar puncture was carried out under fluoroscopic guidance with a 22 gauge 5' long spinal Quincke needle at the level of L2-L3 under the usual sterile conditions and local an esthesia. 12 mL of Iohexol-240 was instilled int o the lumbar thecal sac. MYELOGRAMS: During the inje ction of contrast it was noted that the lumbar thecal sac was diffusely narrowed. Much of the injected contrast the lumbar spine preferentially flowed into the thoracic spina l canal. The lumbar spinal c anal was narrowed and a smaller amount of contrast was entering the mid and lower lumbar spinal canal. The patient was therefore kept in a lateral decubitus position for 30 m inutes prior to CT scanning for better distribut ion of the contrast density. FLUOROSCOPIC TIME: 0.[address] Fraser, was present for the procedure. TECHNIQUE: Volumetric acqui sition of the thoracic and lumbar spine, from the level of T 1 through the sacrum. The 1st image set showed adequate opacification of the lumbar and lower thoracic spine. Del ayed images after one hour s howed excellent opacification of the remainder of the thoracic spine DLP: 1451 mGy-cm FINDINGS: THORACIC AND LUMBAR SPINE: Alignment of the thoracic sp ine is maintained. Intervertebral discs are normal. The spinal alignment is normal with presumably trauma related kyphotic deformity at L1-L2 as noted below. The thoracic spi nal canal is normal in size. Congenitally short pedicles are present from L2 to L5. The thoracic cord is normal in size and shape. Normal conus level at T12-L1. INDIVIDUAL LEVELS: T1-T2: Normal T2-T3 and T3-T4: Facet arthr opathy on the left with bone spurs indenting the thecal sac from posteriorly. T4-T5: Normal T5-T6 and T6-T7: Midline bone spurs indenting th e thecal sac. T7-T8: Tiny endplate spur on the right without n eural compromise. T8-T9: Normal T9-T10: Disc osteophyte comp janet on the right abutting the cord with minimal cord deformity. T10-T11: Normal T11-T12: Uncovertebral bone spur on the left narrowing the foramen with encroachment upon the exiting left T11 nerve root T12-L1: Large disc osteophyt e complex on the left side slightly indenting the ventral conus and extending into the foramen with encroachment upon the exiting left T12 nerve root. L1-L2: Spinal canal stenosi s caused by central and left lateral vertebral osteophytes resulting in crowding of the cauda equina nerve roots. Anterior wedge deformity of the L1 and L2 vertebral bodies w ith large anterior osteophyt es most likely due to old trauma. Mild to moderate kyphotic deformity at this level. L2-L3: Disc osteophyte compl ex indenting the thecal sac with crowding of the cauda equina roots. L3-L4: Bulging posterior chacorta ulus. Crowding of the cauda equina nerve roots. Vacuum disc phenomenon. L4-L5: Mildly diffusely bulg ing posterior annulus. Mild facet enlargement. Constriction of the thecal sac and mild crowding of cauda equina nerve roots. L5-S1: Normal IMPRESSION: 1. Acquired on congenital s desean stenosis from T9 through L4, due spondylotic disc osteophyte complexes, greatest from T12 to L2. 2. Cord and conus indentation by bone spurs fro m T9 down to L1. 3. Crowding of the cauda eq uina nerve roots by posterior endplate osteophytes from L1 to L2-L3, and by the combination of bulging discs and the congenital stenosis of the spinal canal at L3-L4 and L4-L5. 4. Constriction of the thec al sac is crowding of cauda equina nerve roots from L4 to L5. 5. Foraminal stenoses at T1 1-T12, T12-L1 and L1-L2 with encroachment upon the exiting nerve roots. Spine thoracic EXAM: CT MYELOGRAM LUMBAR SPINE 04/29/2017 [facility] Medical myelogram DX EXAM: CT MYELOGRAM THORACIC SPINE Center EXAM: FLUOROSCOPY-GUIDED LUMBAR PUNCTURE FOR CT MYELOGRAM DATE: 04/29/2017 1012 hours INDICATION: Lumbar stenosis COMPARISON: None. PROCEDURE: An interlaminar l umbar puncture was carried out under fluoroscopic guidance with a 22 gauge 5' long spinal Quincke needle at the level of L2-L3 under the usual sterile conditions and local an esthesia. 12 mL of Iohexol-240 was instilled int o the lumbar thecal sac. MYELOGRAMS: During the inje ction of contrast it was noted that the lumbar thecal sac was diffusely narrowed. Much of the injected contrast the lumbar spine preferentially flowed into the thoracic spina l canal. The lumbar spinal c anal was narrowed and a smaller amount of contrast was entering the mid and lower lumbar spinal canal. The patient was therefore kept in a lateral decubitus position for 30 m inutes prior to CT scanning for better distribut ion of the contrast density. FLUOROSCOPIC TIME: 0.[address] Fraser, was present for the procedure. TECHNIQUE: Volumetric acqui sition of the thoracic and lumbar spine, from the level of T 1 through the sacrum. The 1st image set showed adequate opacification of the lumbar and lower thoracic spine. Del ayed images after one hour s howed excellent opacification of the remainder of the thoracic spine DLP: 1451 mGy-cm FINDINGS: THORACIC AND LUMBAR SPINE: Alignment of the thoracic sp ine is maintained. Intervertebral discs are normal. The spinal alignment is normal with presumably trauma related kyphotic deformity at L1-L2 as noted below. The thoracic spi nal canal is normal in size. Congenitally short pedicles are present from L2 to L5. The thoracic cord is normal in size and shape. Normal conus level at T12-L1. INDIVIDUAL LEVELS: T1-T2: Normal T2-T3 and T3-T4: Facet arthr opathy on the left with bone spurs indenting the thecal sac from posteriorly. T4-T5: Normal T5-T6 and T6-T7: Midline bone spurs indenting th e thecal sac. T7-T8: Tiny endplate spur on the right without n eural compromise. T8-T9: Normal T9-T10: Disc osteophyte comp janet on the right abutting the cord with minimal cord deformity. T10-T11: Normal T11-T12: Uncovertebral bone spur on the left narrowing the foramen with encroachment upon the exiting left T11 nerve root T12-L1: Large disc osteophyt e complex on the left side slightly indenting the ventral conus and extending into the foramen with encroachment upon the exiting left T12 nerve root. L1-L2: Spinal canal stenosi s caused by central and left lateral vertebral osteophytes resulting in crowding of the cauda equina nerve roots. Anterior wedge deformity of the L1 and L2 vertebral bodies w ith large anterior osteophyt es most likely due to old trauma. Mild to moderate kyphotic deformity at this level. L2-L3: Disc osteophyte compl ex indenting the thecal sac with crowding of the cauda equina roots. L3-L4: Bulging posterior chacorta ulus. Crowding of the cauda equina nerve roots. Vacuum disc phenomenon. L4-L5: Mildly diffusely bulg ing posterior annulus. Mild facet enlargement. Constriction of the thecal sac and mild crowding of cauda equina nerve roots. L5-S1: Normal IMPRESSION: 1. Acquired on congenital s desean stenosis from T9 through L4, due spondylotic disc osteophyte complexes, greatest from T12 to L2. 2. Cord and conus indentation by bone spurs fro m T9 down to L1. 3. Crowding of the cauda eq uina nerve roots by posterior endplate osteophytes from L1 to L2-L3, and by the combination of bulging discs and the congenital stenosis of the spinal canal at L3-L4 and L4-L5. 4. Constriction of the thec al sac is crowding of cauda equina nerve roots from L4 to L5. 5. Foraminal stenoses at T1 1-T12, T12-L1 and L1-L2 with encroachment upon the exiting nerve roots. Spine T-L (or entire) EXAM: XR ENTIRE SPINE 2 VIEWS 03/19/2017 [facility] 6+ Views DX DATE: 03/19/2017 10:49 AM CDT Ce nter INDICATION: - STANDING 36' AP/LAT FILMS FROM SK ULL TO FEMORAL HEADS COMPARISON: None TECHNIQUE: AP and lateral radiographs of the lum bar spine FINDINGS: Alignment and vert ebral body heights are intact throughout the entire spine. Spondylitic changes with degenerative disc disease noted in the upper lumbar spine. Facet arthropathy throughout th e lumbar spine. No osseous lesions. No soft tiss ue abnormality is identified. IMPRESSION: Mild spondylotic changes in the tho racolumbar spine. Consultation Notes No Data Provided for This Section Discharge Summaries No Data Provided for This Section History and Physicals No Data Provided for This Section Vital Signs Vital Sign Value Date Comments Source Height 177.8 cm 06/05/2017 [facility] Neuro Weight 146.818 06/05/2017 [facility] BMI Calculated 46.44 06/05/2017 [facility] Neuro Systolic (mm Hg) 130 06/05/2017 [facility] Jaxson ro Diastolic (mm Hg) 83 06/05/2017 [facility] Ne uro Temperature Oral (F) 99.3 F 06/05/2017 [facility] Neuro Heart Rate 70 06/05/2017 [facility] BMI Calculated 44.72 04/29/2017 [facility] Weight 141.36 04/29/2017 [facility] Height 177.8 cm 04/29/2017 [facility] Heart Rate 66 04/29/2017 [facility] Respitory Rate 20 04/29/2017 [facility] Systolic (mm Hg) 140 04/29/2017 [facility] Diastolic (mm Hg) 73 04/29/2017 [facility] Encounters Location Location Encounter Encounter Reason Attending ADM NC Stat us Source Details Type Number For Provider Date Date Visit Outpatient [id number] VIOLA 08/19 Active [facility] JARED Waller Outpatient [id number] MANJINDER KOWALSKI 09/04 Act [facility] Mitesh Outpatient [id number] MANJINDER KOWALSKI 03/19 Act [facility] Waller Outpatient [id number] CONY 03/19 [facility] [place] [place] Outpatient [id number] Manjinder Kowalski 03/19 03/20 [facility] Outpatient [id number] DULCE THOMPSONN 04/04 Act [facility] Mitesh MNA Spine Phone [id number] 04/24 04/26 [facility] Message [facility]2016 [facility] MNA Spine Phone [id number] 04/24 04/26 [facility] Message /2016 Neuro [facility] Outpatient [id number] CONY 04/25 [facility] Mitesh MNA Spine Outpatient [id number] Harjeet 04/25 04/26 [facility]note 2] Outpatient [id number] Dulce Lau 04/29 04/30 [facility] MNA Spine Phone [id number] 04/30 05/02 [facility] Message /2016 Neuro [facility] Out[facility] [id number] DULCE LAU 06/05 Act [facility] Waller MNA Spine Outpatient [id number] Harjeet 06/05 06/06 [facility] MNA Spine Phone [id number] 06/06 06/08 [facility] Message /2017 Neuro [facility] Outpatient [id number] DULCE LAU 12/04 [facility] Waller MNA Spine Ambulatory [id number] Harjeet 12/04 12/04 [facility] [facility] [place] Procedures Procedure Code Date Perfomer Comments Source Myelography via [id number] 04/29/2017 [facility] Myel[facility] via [id number] 04/29/2017 [facility] lumbar [facility] radiological supervision and interpretation; lumbosacral NJX INTERLAMINAR 04/25/2017 [facility] Neuro LMBR/SA Ear operations [id number] [facility] [id number] [facility] [id number] [facility] steroid injection Neuro,[facility] Nose operation [id number] [facility] Operation [phone] [facility] Assessment and Plan No Data Provided for This Section Plan of Care No Data Provided for This Section Social History Social History Date Source Social History TypeResponse 06/05/2017 [facility] Smoking Status Former smoker; Type: Cigarettes; Exposur e to Tobacco Smoke None; Cigarette Smoking Last 365 Days No; Reg Smoking Cessation Counseling No entered on: 06/05/17 Social History TypeResponse 04/29/2017 [facility] Smoking Status Former smoker; Type: Cigarettes; Exposur e to Tobacco Smoke None; Cigarette Smoking Last 365 Days No; Reg Smoking Cessation Counseling No Family History No Data Provided for This Section Advance Directives No Data Provided for This Section Functional Status No Data Provided for This Section
--- OUTSIDE RECORDS SUMMARY | 2019-10-15 07:27 | XMS REPORT ---
:1965 Author Organization [facility] t Address [address] [place] [address] Care Team Providers Name Role Phone Anupam Atkins MD Attending Clinician Doctor Unassigned, [place] Attending Clinician Unavailable Rody Lau Attending Clinician Joey Jesus Attending Clinician Vandana Kowalski Attending Clinician TARAPASADE Attending Clinician Unavailable BUSUEGO Attending Clinician Unavailable TARAPASADE Admitting Clinician Unavailable BUSUEGO Admitting Clinician Unavailable Problems Condition Condition Condition Status Onset Resolution Last Treating Co mments Source Name Details Category Date Date Treatment Clinician Date LUMBAR Diagnosis Active 2016-052017-04-29 STENOSIS 1-14 09:02:00 [place] LUMBAR 00:00: Medical STENOSIS 00 Center Active 04/08/2017 [facility] M54.16 Diagnosis Active 2016-052017-03-19 MH 0-25 10:29:00 [place] M54.16 00:00: Medical 00 Center Active 03/19/2017 [facility] Abdominal Problem Resolve 2017-12-07 M ischer pain d 00:03:51 Neuro, (finding) Abdominal [facility] (finding) Center Resolved Problem 12/07/2017 John Neuro,[facility] Chest pain Problem Resolve 2017-12-07 [facility] (finding) d 00:03:51 Neuro , Chest pain [place] (finding) [facility] Center Resolved Problem 12/07/2017 [facility] Chronic Problem Resolve 2017-12-07 [facility] carmela back pain d 00:03:51 Neuro , (disorder) Chronic back pain [place] (disorder) [facility] Resolved Problem 12/07/2017 [facility] Diabetes Problem Active 2017-12-07 Mis carmela mellitus 00:03:51 Neuro, (disorder) Diabetes mellitus [place] (disorder) [facility] Active Problem 12/07/2017 [facility] Hyperchole Problem Active 2017-12-07 M ischer sterolemia 00:03:51 Neur o, (disorder) Hyperchole [place] sterolemia [facility] ([facility] Center Active Problem 12/07/2017 [facility] Hypertensi Problem Active 2017-12-07 M ischer ve 00:03:51 Neuro, disorder, systemic [place] arterial ve Medical (disorder) disorder, [address] ter systemic arterial (disorder) Active Problem 12/07/2017 [facility] Morbid Problem Active 2017-12-07 Misch er obesity 00:03:51 Neuro, (disorder) Morbid obesity [place] (disorder) [facility] Active Problem 12/07/2017 [facility] 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 Social History Smoking Status Start Date Stop Date Source Social History 2017-04-29 16:58:10 2017-04-29 16:58:10 [facility] Medications Ordered Filled Start Stop Current Ordering Indication Dosage Frequency Signature Comments Components Source Medication Medication Date Date Medication? Clinician (SIG) Name Name amitriptyli 2016-05 Yes 10 mg = 1 M ischer ne 10 mg 2-01 tab, PO, Neuro oral tablet 14:52: Bedtime, 4 00 tabs at bedtime for 1 week then 5 tabs at bedtime thereafter , # 150 tab, 2 Refill(s), Pharmacy: [id number] diclofenac 2016-05 Yes 75 mg = 1 Mi dari[place] sodium 75 2-01 tab, PO, Neuro mg oral 14:52: BID, PRN enteric 00 Pain Score coated, 7-10, # 60 delayed-rel tab, 2 ease tablet Refill(s), Pharmacy: [id number] Cyclobenzap 2016-05 Yes 10 mg = 1 M tonio rine 2- tab, PO, Neuro hydrochlori 14:52: BID, # 60 de 10 MG 00 tab, 2 Oral Tablet Refill(s), [Flexeril] Pharmacy: [id number] Sodium 2016-05 Yes 4.2 mL, [facility] Chloride 06-26 Route: Neuro 14:50: EPIDURAL, 00 Dosing Weight 141.364, kg, ONCE, (Preservat liliana Free), Start date: 04/25/17 8:50:00 [employer]ING SUPER[employer]OR, Stop date: 04/25/17 8:50:00 [employer]ING SUPERVISOR Lidocaine 2017- Yes 3 mL, [facility] Hydrochlori 06-26 Route: Neuro de 10 MG/ML 14:50: SUB-Q, Injectable 00 Dosing Solution Weight 141.364, kg, ONCE, (Preservat liliana Free), Start date: 04/25/17 8:50:00 MILLING SUPERVISOR, Stop date: 04/25/17 8:50:00 MILLING SUPERVISOR Omnipaque 2017- Yes 2 mL, Mischer 300 06-26 Route: Neuro 14:50: EPIDURAL, 00 Dosing Weight 141.364, kg, ONCE, (Preservat liliana Free), Start date: 04/25/17 8:50:00 MILLING SUPERVISOR, Stop date: 04/25/17 8:50:00 M[employer]ING SUPERVISOR Dexamethaso 2017- Yes 8 mg, Misch er ne 06-26 Route: Neuro 14:50: EPIDURAL, 00 ONCE, Dosing Weight 141.364, kg, (Preservat liliana Free), Start date: 04/25/17 8:50:00 MILLING SUPERVISOR, Stop date: 04/25/17 8:50:00 [employer]ING SUPERVISOR Bupivacaine 2017- Yes 2 mL, Misch er Hydrochlori 06-26 Route: Neuro de 2.5 14:50: EPIDURAL, MG/ML 00 Dosing Injectable Weight Solution 141.364, kg, ONCE, (Preservat liliana Free), Start date: 04/25/17 8:50:00 MILLING SUPERVISOR, Stop date: 04/25/17 8:50:00 [employer]ING SUPER[employer]OR Vital Signs Vital Name Observation Time Observation Value Comments Source Height 2017-06-05 17:46:00 177.8 cm [facility] Neuro Weight 2017-06-05 17:46:00 [facility] BMI Calculated 2017-06-05 17:46:00 Mische r Neuro Systolic (mm Hg) 2017-06-05 17:46:00 Misc her Neuro Diastolic (mm Hg) 2017-06-05 17:46:00 Mis carmela Neuro Temperature Oral (F) 2017-06-05 17:46:00 99.3 F [facility] Heart Rate 2017-06-05 17:46:00 [facility] Neuro BMI Calculated 2017-04-29 15:23:00 [facility] Weight 2017-04-29 15:23:00 [facility] Height 2017-04-29 15:23:00 177.8 cm [facility] Heart Rate 2017-04-29 15:00:00 [facility] Respitory Rate 2017-04-29 15:00:00 [facility] Systolic (mm Hg) 2017-04-29 15:[facility] Di[facility] 2017-04-29 15:00:00 [facility] Procedures Procedure Date / Time Performed Performing Clinician [facility] e Myelography via lumbar 2017-04-29 [place]:14[place] injection, including Center radiological supervision and interpretation; thoracic Myelography via lumbar 2017-04-29 16:14:00 [place] injection, including Center radiological supervision and interpretation; lumbosacral [place] INTERLAMINAR LMBR/SA 2017-04-25 14:50:00 Mis carmela Neuro Ear operations [facility] Neuro, M [facility] Lumbar epidural Misuc [facility] Neuro, M injection [facility] Lumbar epidural steroid [facility] Neuro, injection [facility] Nose operation [facility], [facility] Encounters Start End Encounter Admission Attending Care Care Encounter Source Date/Time Date/Time Type Type Clinicians Facility Department ID 2019-06-16 2019-06-16 Ladi Atkins [facility] [id number] 00:00:00 00:00:00 Anupam Robert [id number] [place] [id number] Professio [id number] [facility] 220 [facility] 2019-06-09 2019-06-09 Ladi Atkins [facility] [id number] 00:00:00 00:00:00 Anupam Robert [id number] [place] [id number] Professio [id number] [address] 2019-02-10 2019-02-10 Telephone Atkins, [facility] [id number] 00:00:00 00:00:00 Anupam Robert [id number] [place] [id number] Professio [id number] [address] 2018-12-13 2018-12-13 Orders Doctor DULCE [id number] 00:00:00 00:00:00 Only Unassigned, KIMBERLY [id number] [place] [facility] [id number] 2018-11-27 2018-11-27 Refill [facility] [id number] 00:00:00 00:00:00 Anupam Robert [id number] [place] [id number] Professio [id number] [address] 2017-12-04 2017-12-04 Ambulatory [facility] [id number] [place] 15:30:00 15:30:00 Pre-Reg Clinic [facility] 2017-12-04 2017-12-04 Outpatient MHIEALT MHIEALT [id number] 10:30:00 10:30:00 07 marga Sagastume 2017-12-04 2017-12-04 Outpatient Dulce Lau [facility] M[facility] [id number] 10:30:00 10:30:00 [facility] 2017-06-06 2017-06-08 Phone [facility] [id number] [facility] 20:31:00 05:59:59 [facility] Clinic [facility] 2017-06-06 2017-06-07 Outpatient MHMISCHER MHMISCHER [id number] 14:31:00 23:59:59 2017-06-06 2017-06-07 Outpatient MHMISCHER MHMISCHER [id number] 14:31:00 23:59:59 09 2017-06-05 2017-06-06 Outpatient [facility] [id number] [facility] 17:30:00 05:59:59 Clinic [facility] 05 [facility] 2017-06-05 2017-06-05 Outpatient Dulce Lau M[facility]IS[facility]ER MHMISCHER [id number] 11:30:00 23:59:59 C 05 2017-06-05 2017-06-05 Outpatient Dulce Lau M[facility]ER M[facility]IS[facility]ER [id number] 11:30:00 23:59:59 C 2017-06-05 2017-06-05 Outpatient MHIEALT MHIEALT [id number] 11:30:00 11:30:00 05 marga KnottMitesh 2017-04-30 2017-05-02 Phone [facility] [id number] [facility] 17:52:00 05:59:59 Message Clinic [facility] 08 [facility] 2017-04-30 2017-05-01 Outpatient MHMISCHER MHMISCHER [id number] 11:52:00 23:59:59 2017-04-29 2017-04-30 Outpatient MHIEALT [facility] [id number] 14:20:00 05:59:[address] 2017-04-29 2017-04-29 [id number] 08:20:00 23:59:00 C 2017-04-25 2017-04-26 Outpatient [facility] [id number] [facility] 14:00:00 05:59:59 Clinic [facility] 06 [facility] 2017-04-24 2017-04-26 Phone [facility] [id number] [facility] 22:30:00 05:59:59 Message Clinic [facility] 07 [facility] 2017-04-24 2017-04-26 Phone [facility] [id number] [facility] 22:27:00 05:59:59 Message Clinic [facility] 06 [facility] 2017-04-25 2017-04-25 Outpatient Edin, MHMISCHER MHMISCHER [id number] 08:00:00 23:59:59 Camacho Joye 2017-04-24 2017-04-25 Outpatient MHMISCHER MHMISCHER [id number] 16:30:00 23:59:59 07 2017-04-24 2017-04-25 Outpatient MHMISCHER MHMISCHER [id number] 16:27:00 23:59:59 06 2017-04-25 2017-04-25 Outpatient MHIEALT MHIEALT [id number] [address] 08:00:00 08:00:00 06 marga Sagastume 2017-04-04 2017-04-04 Outpatient MHIEALT MHIEALT [id number] [address] 13:00:00 13:00:00 04 marga Mitesh 2017-03-19 2017-03-20 Outpatient MHIEALT [facility] [id number] 15:22:00 04:59:[address] [place] [address] 2017-03-19 2017-03-19 Outpatient Manjinder Kowalski [facility] [id number] 10:22:00 23:59:00 kevin 2017-03-19 2017-03-19 Outpatient MHIEALT MHIEALT [id number] [address] 08:45:00 08:45:00 03 marga Sagastume 2017-03-19 2017-03-19 Outpatient MHIEALT MHIEALT [id number] [address] 07:45:00 07:45:00 02 marga Sagastume 2016-09-04 2016-09-04 Outpatient MHIEALT MHIEALT [id number] [address] 07:45:00 07:45:00 01 marga Sagastume 2016-08-19 2016-08-19 Outpatient MHIEALT MHIEALT [id number] [address] 10:30:00 10:30:00 00 marga Sagastume Results Test Description Test Time Test Comments Results Result Comments Source HEMATOLOGY 2017-04-29 16:42:00 Test Item Value Reference Range Interpretation Comme nts PTT (test code = PTT) 29.4 s 22.9-35.8 [id number] 16:42:00 Test Item Value Reference Range Interpretation Comments PT (test code = PT) 12.8 s 12.0-14.7 [facility] [id number] 16:42:000.96[facility] CHEM [id number] 15:26:0095[facility] Center[facility] DEGNT3594-14-01 15:26:000.92[facility] Center[facility] [id number] 15:26:0021[facility] CenterMebvtbHOUWYIUGIZ8007-88-15 15:26:0084.7[facility] 2017-04-29 15:26:0041.3[facility] [place] [facility] HospitalSktwunTZGILWFBUI2926-55-13 15:26:00 Test Item Value Reference Range Interpretation Comments MCH (test code = MCH) 27.9 pg 27.0-31.0 [facility] CenterSmqbgvSEZQEVWPSU3567-09-77 15:26:0032.9[facility] SDITBOWCCV8262-79-17 15:26:007.2[facility] [place] [facility] HospitalYchwskPKJRTYCTAY4745-36-59 15:26:004.87[facility] CenterXhjkwzQZKIUXUXSN9709-51-10 15:26:0013.6[facility] [place] [facility] HospitalScavgzVLTNIFLUDE9090-37-07 15:26:[address] [place], [place] [address]ATOLOGY 2017-04-29 15:26:81641MYWilson [facility]. [facility] Medical CenterHvrbtvPJHLKWLIZM6685-06-43 15:26:008.0[facility] CenterCMP2017-09-05 05:57:00 Test Item Value Reference Range Interpretation Comments Glucose (test code 117 mg/dl 75-110 H = GLU) BUN (test code = 12.0 mg/dl 6.0-17.0 BUN) Creatinine (test 0.9 mg/dl 0.4-1.2 code = CREA) Sodium (test code = 142 mmol/l 137-145 NA) Potassium (test 4.3 mmol/l 3.5-5.0 code = K) Chloride (test code 104 mmol/l 98-107 = CL) CO2 (test code = 26 mmol/l 22-30 CO2) Calcium (test code 9.6 mg/dl 8.4-10.2 = CALC) T Protein (test 8.6 gm/dl 5.1-8.7 code = TP) Albumin (test code 4.0 gm/dl 3.5-4.6 = ALB) A/G Ratio (test 0.9 % 1.1-2.2 L code = AGRAT) AST (SGOT) (test 31 U/L 11-36 code = AST) ALT (SGPT) (test 51 U/L 11-40 H code = ALT) Alkaline Phos (test 73 U/L 47-114 code = ALKP) Total Bilirubin 0.6 mg/dl 0.2-1.2 (test code = TBIL) Globulin (test code 4.6 gm/dl 2.3-3.5 H = GLOBU) Calcium, Corrected 9.6 mg/dl 8.4-10.2 Various f ormulas exist (test code = for corrected s teresa CALCCORR) calcium results , each yielding differ ent values. This corrected resul t was based on the fo rmula: Corrected Calci um = SerumCalcium + [0.8 * ( 4 - SerumAlbu min)] EGFR if >60 [place] (test code mL/min/1.73m\\ = EGFRAA) S\\2 EGFR if Non- >60 Estimate d Glomerular [place] (test code mL/min/1.73m\\ Filtrat ion Rate (eGFR) = EGFRNA) S\\2 Reference Inter vals Decision Points for 18 years and older and average body ma ss: >= 60 Does not exc lude kidney disease. 30 - 59 Suggests modera te chronic kidney disease and indicat es the need for furthe r investigation including asses sment of proteinuria and cardiovascular factors. < 30 Usually in dicates a need for refe rral for assessment and management of c hronic kidney failure. CBC WITH AUTO [id number] 05:42:00 Test Item Value Reference Range Interpretation Comments WBC (test code = 5.14 10\\S\\3/ul 4.80-10.80 WBC) RBC (test code = 4.61 10\\S\\6/ul 4.70-6.10 L RBC) Hemoglobin (test 12.4 gm/dl 14.0-18.0 L code = HGB) Hematocrit (test 39.1 % 42.0-50.0 L code = HCT) MCV (test code = 84.8 fL 80.0-94.0 MCV) MCH (test code = 26.9 pg 27.0-31.0 L MCH) MCHC (test code = 31.7 gm/dl 33.0-37.0 L MCHC) RDW (test code = 15.0 % 11.5-14.5 H RDWVC) Platelet (test code 473 10\\S\\3/ul 130-400 H = PLT) MPV (test code = 8.9 fL 7.4-10.4 A "NOT MEASUR ED" MPV) RESULTS ARE DIS PLAYED WHEN THE INSTRU MENT HAS A SUPPRESSE D OR UNREPORTABLE RE SULT. THIS WILL MOST OFTEN HAPPEN WITH THE MPV WHEN THERE IS A N ABNORMAL PLATLE T DISTRIBUTION DU E TO A CRITICAL LOW VA LUE OR PLATELET CLUMPI NG. NE% (test code = 57.7 % 42.0-75.0 NE) LY% (test code = 29.2 % 13.0-42.0 LY) MO% (test code = 8.4 % 4.0-14.0 MO) EO% (test code = 2.3 % 1.0-3.0 EO) BA% (test code = 1.4 % 1.0-3.0 BA) IG% (test code = 1.0 % 0.0-0.4 H IG%) [id number] 05:53:00 Test Item Value Reference Range Interpretation Comments Glucose (test code 116 mg/dl 75-110 H = GLU) BUN (test code = 13.0 mg/dl 6.0-17.0 BUN) Creatinine (test 0.9 mg/dl 0.4-1.2 code = CREA) Sodium (test code = 139 mmol/l 137-145 NA) Potassium (test 4.4 mmol/l 3.5-5.0 code = K) Chloride (test code 102 mmol/l 98-107 = CL) CO2 (test code = 26 mmol/l 22-30 CO2) Calcium (test code 9.2 mg/dl 8.4-10.2 = CALC) T Protein (test 8.1 gm/dl 5.1-8.7 code = TP) Albumin (test code 3.7 gm/dl 3.5-4.6 = ALB) A/G Ratio (test 0.8 % 1.1-2.2 L code = AGRAT) AST (SGOT) (test 52 U/L 11-36 H code = AST) ALT (SGPT) (test 60 U/L 11-40 H code = ALT) Alkaline Phos (test 73 U/L 47-114 code = ALKP) Total Bilirubin 0.6 mg/dl 0.2-1.2 (test code = TBIL) Globulin (test code 4.4 gm/dl 2.3-3.5 H = GLOBU) Calcium, Corrected 9.4 mg/dl 8.4-10.2 Various f ormulas exist (test code = for corrected s teresa CALCCORR) calcium results , each yielding differ ent values. This corrected resul t was based on the fo rmula: Corrected Calci um = SerumCalcium + [0.8 * ( 4 - SerumAlbu min)] EGFR if >60 [place] (test code mL/min/1.73m\\ = EGFRAA) S\\2 EGFR if Non- >60 Estimate d Glomerular [place] (test code mL/min/1.73m\\ Filtrat ion Rate (eGFR) = EGFRNA) S\\2 Reference Inter vals Decision Points for 18 years and older and average body ma ss: >= 60 Does not exc lude kidney disease. 30 - 59 Suggests modera te chronic kidney disease and indicat es the need for furthe r investigation including asses sment of proteinuria and cardiovascular factors. < 30 Usually in dicates a need for refe rral for assessment and management of c hronic kidney failure. CBC WITH AUTO [id number] 05:27:00 Test Item Value Reference Range Interpretation Comments WBC (test code = 5.28 10\\S\\3/ul 4.80-10.80 WBC) RBC (test code = 4.50 10\\S\\6/ul 4.70-6.10 L RBC) Hemoglobin (test 12.1 gm/dl 14.0-18.0 L code = HGB) Hematocrit (test 38.7 % 42.0-50.0 L code = HCT) MCV (test code = 86.0 fL 80.0-94.0 MCV) MCH (test code = 26.9 pg 27.0-31.0 L MCH) MCHC (test code = 31.3 gm/dl 33.0-37.0 L MCHC) RDW (test code = 15.1 % 11.5-14.5 H RDWVC) Platelet (test code 432 10\\S\\3/ul 130-400 H = PLT) MPV (test code = 8.9 fL 7.4-10.4 A "NOT MEASUR ED" MPV) RESULTS ARE DIS PLAYED WHEN THE INSTRU MENT HAS A SUPPRESSE D OR UNREPORTABLE RE SULT. THIS WILL MOST OFTEN HAPPEN WITH THE MPV WHEN THERE IS A N ABNORMAL PLATLE T DISTRIBUTION DU E TO A CRITICAL LOW VA LUE OR PLATELET CLUMPI NG. NE% (test code = 53.6 % 42.0-75.0 NE) LY% (test code = 29.9 % 13.0-42.0 LY) MO% (test code = 10.8 % 4.0-14.0 MO) EO% (test code = 3.4 % 1.0-3.0 H EO) BA% (test code = 0.6 % 1.0-3.0 L BA) IG% (test code = 1.7 % 0.0-0.4 H IG%) [id number] 04:36:00 Test Item Value Reference Range Interpretation Comments Glucose (test code 148 mg/dl 75-110 H = GLU) BUN (test code = 14.0 mg/dl 6.0-17.0 BUN) Creatinine (test 1.0 mg/dl 0.4-1.2 code = CREA) Sodium (test code = 141 mmol/l 137-145 NA) Potassium (test 4.4 mmol/l 3.5-5.0 code = K) Chloride (test code 103 mmol/l 98-107 = CL) CO2 (test code = 26 mmol/l 22-30 CO2) Calcium (test code 9.0 mg/dl 8.4-10.2 = CALC) T Protein (test 7.9 gm/dl 5.1-8.7 code = TP) Albumin (test code 3.7 gm/dl 3.5-4.6 = ALB) A/G Ratio (test 0.9 % 1.1-2.2 L code = AGRAT) AST (SGOT) (test 36 U/L 11-36 code = AST) ALT (SGPT) (test 63 U/L 11-40 H code = ALT) Alkaline Phos (test 68 U/L 47-114 code = ALKP) Total Bilirubin 0.8 mg/dl 0.2-1.2 (test code = TBIL) Globulin (test code 4.2 gm/dl 2.3-3.5 H = GLOBU) Calcium, Corrected 9.2 mg/dl 8.4-10.2 Various f ormulas exist (test code = for corrected s teresa CALCCORR) calcium results , each yielding differ ent values. This corrected resul t was based on the fo rmula: Corrected Calci um = SerumCalcium + [0.8 * ( 4 - SerumAlbu min)] EGFR if >60 Guine[place] (test code mL/min/1.73m\\ = EGFRAA) S\\2 EGFR if Non- >60 Estimate d Glomerular [place] (test code mL/min/1.73m\\ Filtrat ion Rate (eGFR) = EGFRNA) S\\2 Reference Inter vals Decision Points for 18 years and older and average body ma ss: >= 60 Does not exc lude kidney disease. 30 - 59 Suggests modera te chronic kidney disease and indicat es the need for furthe r investigation including asses sment of proteinuria and cardiovascular factors. < 30 Usually in dicates a need for refe rral for assessment and management of c hronic kidney failure. CBC WITH AUTO [id number] 04:14:00 Test Item Value Reference Range Interpretation Comments WBC (test code = 5.76 10\\S\\3/ul 4.80-10.80 WBC) RBC (test code = 4.33 10\\S\\6/ul 4.70-6.10 L RBC) Hemoglobin (test 11.7 gm/dl 14.0-18.0 L code = HGB) Hematocrit (test 37.4 % 42.0-50.0 L code = HCT) MCV (test code = 86.4 fL 80.0-94.0 MCV) MCH (test code = 27.0 pg 27.0-31.0 MCH) MCHC (test code = 31.3 gm/dl 33.0-37.0 L MCHC) RDW (test code = 15.2 % 11.5-14.5 H RDWVC) Platelet (test code 412 10\\S\\3/ul 130-400 H = PLT) MPV (test code = 8.8 fL 7.4-10.4 A "NOT MEASUR ED" MPV) RESULTS ARE DIS PLAYED WHEN THE INSTRU MENT HAS A SUPPRESSE D OR UNREPORTABLE RE SULT. THIS WILL MOST OFTEN HAPPEN WITH THE MPV WHEN THERE IS A N ABNORMAL PLATLE T DISTRIBUTION DU E TO A CRITICAL LOW VA LUE OR PLATELET CLUMPI NG. NE% (test code = 58.3 % 42.0-75.0 NE) LY% (test code = 25.2 % 13.0-42.0 LY) MO% (test code = 10.1 % 4.0-14.0 MO) EO% (test code = 3.3 % 1.0-3.0 H EO) BA% (test code = 1.2 % 1.0-3.0 BA) IG% (test code = 1.9 % 0.0-0.4 H IG%) [id number] 04:40:00 Test Item Value Reference Range Interpretation Comments Glucose (test code 122 mg/dl 75-110 H = GLU) BUN (test code = 13.0 mg/dl 6.0-17.0 BUN) Creatinine (test 0.9 mg/dl 0.4-1.2 code = CREA) Sodium (test code = 140 mmol/l 137-145 NA) Potassium (test 4.3 mmol/l 3.5-5.0 code = K) Chloride (test code 104 mmol/l 98-107 = CL) CO2 (test code = 27 mmol/l 22-30 CO2) Calcium (test code 9.1 mg/dl 8.4-10.2 = CALC) T Protein (test 8.1 gm/dl 5.1-8.7 code = TP) Albumin (test code 3.7 gm/dl 3.5-4.6 = ALB) A/G Ratio (test 0.8 % 1.1-2.2 L code = AGRAT) AST (SGOT) (test 39 U/L 11-36 H code = AST) ALT (SGPT) (test 70 U/L 11-40 H code = ALT) Alkaline Phos (test 77 U/L 47-114 code = ALKP) Total Bilirubin 0.8 mg/dl 0.2-1.2 (test code = TBIL) Globulin (test code 4.4 gm/dl 2.3-3.5 H = GLOBU) Calcium, Corrected 9.3 mg/dl 8.4-10.2 Various f ormulas exist (test code = for corrected s teresa CALCCORR) calcium results , each yielding differ ent values. This corrected resul t was based on the fo rmula: Corrected Calci um = SerumCalcium + [0.8 * ( 4 - SerumAlbu min)] EGFR if >60 Guine[place] (test code mL/min/1.73m\\ = EGFRAA) S\\2 EGFR if Non- >60 Estimate d Glomerular [place] (test code mL/min/1.73m\\ Filtrat ion Rate (eGFR) = EGFRNA) S\\2 Reference Inter vals Decision Points for 18 years and older and average body ma ss: >= 60 Does not exc lude kidney disease. 30 - 59 Suggests modera te chronic kidney disease and indicat es the need for furthe r investigation including asses sment of proteinuria and cardiovascular factors. < 30 Usually in dicates a need for refe rral for assessment and management of c hronic kidney failure. CBC WITH AUTO [id number] 04:09:00 Test Item Value Reference Range Interpretation Comments WBC (test code = 6.63 10\\S\\3/ul 4.80-10.80 WBC) RBC (test code = 4.55 10\\S\\6/ul 4.70-6.10 L RBC) Hemoglobin (test 12.3 gm/dl 14.0-18.0 L code = HGB) Hematocrit (test 38.8 % 42.0-50.0 L code = HCT) MCV (test code = 85.3 fL 80.0-94.0 MCV) MCH (test code = 27.0 pg 27.0-31.0 MCH) MCHC (test code = 31.7 gm/dl 33.0-37.0 L MCHC) RDW (test code = 15.4 % 11.5-14.5 H RDWVC) Platelet (test code 401 10\\S\\3/ul 130-400 H = PLT) MPV (test code = 8.9 fL 7.4-10.4 A "NOT MEASUR ED" MPV) RESULTS ARE DIS PLAYED WHEN THE INSTRU MENT HAS A SUPPRESSE D OR UNREPORTABLE RE SULT. THIS WILL MOST OFTEN HAPPEN WITH THE MPV WHEN THERE IS A N ABNORMAL PLATLE T DISTRIBUTION DU E TO A CRITICAL LOW VA LUE OR PLATELET CLUMPI NG. NE% (test code = 63.8 % 42.0-75.0 NE) LY% (test code = 21.4 % 13.0-42.0 LY) MO% (test code = 8.6 % 4.0-14.0 MO) EO% (test code = 3.2 % 1.0-3.0 H EO) BA% (test code = 0.6 % 1.0-3.0 L BA) IG% (test code = 2.4 % 0.0-0.4 H IG%) CULTURE, [id number] 06:50:00To start 15mins after 1st cultureSpecimen: BloodCollected: 01/18/2017 04:05 Status: Final Last Updated: 01/23/2017 06:49 (1) To start 15mins after 1st culture Culture Result (Final) (Final) No Growth After 5 DaysCULTURE, [id number] 06:50:00Specimen: BloodCollected: 01/18/2017 03:55 Status: Final Last Updated: 01/23/2017 06:49 Culture Result (Final) (Final) No Growth After 5 DaysCBC WITH AUTO DIFF 2017-01-23 04:31:00 Test Item Value Reference Range Interpretation Comments WBC (test code = 7.39 10\\S\\3/ul 4.80-10.80 WBC) RBC (test code = 4.43 10\\S\\6/ul 4.70-6.10 L RBC) Hemoglobin (test 11.9 gm/dl 14.0-18.0 L code = HGB) Hematocrit (test 37.8 % 42.0-50.0 L code = HCT) MCV (test code = 85.3 fL 80.0-94.0 MCV) MCH (test code = 26.9 pg 27.0-31.0 L MCH) MCHC (test code = 31.5 gm/dl 33.0-37.0 L MCHC) RDW (test code = 15.6 % 11.5-14.5 H RDWVC) Platelet (test code 391 10\\S\\3/ul 130-400 = PLT) MPV (test code = 8.9 fL 7.4-10.4 A "NOT MEASUR ED" MPV) RESULTS ARE DIS PLAYED WHEN THE INSTRU MENT HAS A SUPPRESSE D OR UNREPORTABLE RE SULT. THIS WILL MOST OFTEN HAPPEN WITH THE MPV WHEN THERE IS A N ABNORMAL PLATLE T DISTRIBUTION DU E TO A CRITICAL LOW VA LUE OR PLATELET CLUMPI NG. NE% (test code = 64.7 % 42.0-75.0 NE) LY% (test code = 19.9 % 13.0-42.0 LY) MO% (test code = 8.9 % 4.0-14.0 MO) EO% (test code = 2.3 % 1.0-3.0 EO) BA% (test code = 0.8 % 1.0-3.0 L BA) IG% (test code = 3.4 % 0.0-0.4 H IG%) [id number] 04:19:00 Test Item Value Reference Range Interpretation Comments Glucose (test code 125 mg/dl 75-110 H = GLU) BUN (test code = 12.0 mg/dl 6.0-17.0 BUN) Creatinine (test 0.9 mg/dl 0.4-1.2 code = CREA) Sodium (test code = 143 mmol/l 137-145 NA) Potassium (test 4.3 mmol/l 3.5-5.0 code = K) Chloride (test code 101 mmol/l 98-107 = CL) CO2 (test code = 29 mmol/l 22-30 CO2) Calcium (test code 9.0 mg/dl 8.4-10.2 = CALC) T Protein (test 7.9 gm/dl 5.1-8.7 code = TP) Albumin (test code 3.6 gm/dl 3.5-4.6 = ALB) A/G Ratio (test 0.8 % 1.1-2.2 L code = AGRAT) AST (SGOT) (test 42 U/L 11-36 H code = AST) ALT (SGPT) (test 69 U/L 11-40 H code = ALT) Alkaline Phos (test 82 U/L 47-114 code = ALKP) Total Bilirubin 0.7 mg/dl 0.2-1.2 (test code = TBIL) Globulin (test code 4.3 gm/dl 2.3-3.5 H = GLOBU) Calcium, Corrected 9.3 mg/dl 8.4-10.2 Various f ormulas exist (test code = for corrected s teresa CALCCORR) calcium results , each yielding differ ent values. This corrected resul t was based on the fo rmula: Corrected Calci um = SerumCalcium + [0.8 * ( 4 - SerumAlbu min)] EGFR if >60 [place] (test code mL/min/1.73m\\ = EGFRAA) S\\2 EGFR if Non- >60 Estimate d Glomerular [place] (test code mL/min/1.73m\\ Filtrat ion Rate (eGFR) = EGFRNA) S\\2 Reference Inter vals Decision Points for 18 years and older and average body ma ss: >= 60 Does not exc lude kidney disease. 30 - 59 Suggests modera te chronic kidney disease and indicat es the need for furthe r investigation including asses sment of proteinuria and cardiovascular factors. < 30 Usually in dicates a need for refe rral for assessment and management of c hronic kidney failure. CBC WITH AUTO [id number] 04:57:00 Test Item Value Reference Range Interpretation Comments WBC (test code = 7.78 10\\S\\3/ul 4.80-10.80 WBC) RBC (test code = 4.46 10\\S\\6/ul 4.70-6.10 L RBC) Hemoglobin (test 12.0 gm/dl 14.0-18.0 L code = HGB) Hematocrit (test 38.2 % 42.0-50.0 L code = HCT) MCV (test code = 85.7 fL 80.0-94.0 MCV) MCH (test code = 26.9 pg 27.0-31.0 L MCH) MCHC (test code = 31.4 gm/dl 33.0-37.0 L MCHC) RDW (test code = 15.5 % 11.5-14.5 H RDWVC) Platelet (test code 359 10\\S\\3/ul 130-400 = PLT) MPV (test code = 9.0 fL 7.4-10.4 A "NOT MEASUR ED" MPV) RESULTS ARE DIS PLAYED WHEN THE INSTRU MENT HAS A SUPPRESSE D OR UNREPORTABLE RE SULT. THIS WILL MOST OFTEN HAPPEN WITH THE MPV WHEN THERE IS A N ABNORMAL PLATLE T DISTRIBUTION DU E TO A CRITICAL LOW VA LUE OR PLATELET CLUMPI NG. NE% (test code = 66.4 % 42.0-75.0 NE) LY% (test code = 17.1 % 13.0-42.0 LY) MO% (test code = 9.3 % 4.0-14.0 MO) EO% (test code = 2.7 % 1.0-3.0 EO) BA% (test code = 0.5 % 1.0-3.0 L BA) IG% (test code = 4.0 % 0.0-0.4 H IG%) CBC AUTO [id number] 04:35:00 Test Item Value Reference Range Interpretation Comments Glucose (test code 108 mg/dl 75-110 = GLU) BUN (test code = 10.0 mg/dl 6.0-17.0 BUN) Creatinine (test 0.9 mg/dl 0.4-1.2 code = CREA) Sodium (test code = 142 mmol/l 137-145 NA) Potassium (test 4.4 mmol/l 3.5-5.0 code = K) Chloride (test code 102 mmol/l 98-107 = CL) CO2 (test code = 32 mmol/l 22-30 H CO2) Calcium (test code 8.9 mg/dl 8.4-10.2 = CALC) T Protein (test 7.6 gm/dl 5.1-8.7 code = TP) Albumin (test code 3.5 gm/dl 3.5-4.6 = ALB) A/G Ratio (test 0.9 % 1.1-2.2 L code = AGRAT) AST (SGOT) (test 75 U/L 11-36 H code = AST) ALT (SGPT) (test 68 U/L 11-40 H code = ALT) Alkaline Phos (test 80 U/L 47-114 code = ALKP) Total Bilirubin 0.8 mg/dl 0.2-1.2 (test code = TBIL) Globulin (test code 4.1 gm/dl 2.3-3.5 H = GLOBU) Calcium, Corrected 9.3 mg/dl 8.4-10.2 Various f ormulas exist (test code = for corrected s teresa CALCCORR) calcium results , each yielding differ ent values. This corrected resul t was based on the fo rmula: Corrected Calci um = SerumCalcium + [0.8 * ( 4 - SerumAlbu min)] EGFR if >60 [place] (test code mL/min/1.73m\\ = EGFRAA) S\\2 EGFR if Non- >60 Estimate d Glomerular [place] (test code mL/min/1.73m\\ Filtrat ion Rate (eGFR) = EGFRNA) S\\2 Reference Inter vals Decision Points for 18 years and older and average body ma ss: >= 60 Does not exc lude kidney disease. 30 - 59 Suggests modera te chronic kidney disease and indicat es the need for furthe r investigation including asses sment of proteinuria and cardiovascular factors. < 30 Usually in dicates a need for refe rral for assessment and management of c hronic kidney failure. CBC WITH AUTO [id number] 05:01:00 Test Item Value Reference Range Interpretation Comments WBC (test code = 7.83 10\\S\\3/ul 4.80-10.80 WBC) RBC (test code = 4.26 10\\S\\6/ul 4.70-6.10 L RBC) Hemoglobin (test 11.7 gm/dl 14.0-18.0 L code = HGB) Hematocrit (test 36.5 % 42.0-50.0 L code = HCT) MCV (test code = 85.7 fL 80.0-94.0 MCV) MCH (test code = 27.5 pg 27.0-31.0 MCH) MCHC (test code = 32.1 gm/dl 33.0-37.0 L MCHC) RDW (test code = 15.7 % 11.5-14.5 H RDWVC) Platelet (test code 299 10\\S\\3/ul 130-400 = PLT) MPV (test code = 9.2 fL 7.4-10.4 A "NOT MEASUR ED" MPV) RESULTS ARE DIS PLAYED WHEN THE INSTRU MENT HAS A SUPPRESSE D OR UNREPORTABLE RE SULT. THIS WILL MOST OFTEN HAPPEN WITH THE MPV WHEN THERE IS A N ABNORMAL PLATLE T DISTRIBUTION DU E TO A CRITICAL LOW VA LUE OR PLATELET CLUMPI NG. NE% (test code = 67.1 % 42.0-75.0 NE) LY% (test code = 16.0 % 13.0-42.0 LY) MO% (test code = 9.6 % 4.0-14.0 MO) EO% (test code = 2.4 % 1.0-3.0 EO) BA% (test code = 0.4 % 1.0-3.0 L BA) IG% (test code = 4.5 % 0.0-0.4 H IG%) CBC AUTO [id number] 04:56:00 Test Item Value Reference Range Interpretation Comments Glucose (test code 107 mg/dl 75-110 = GLU) BUN (test code = 7.0 mg/dl 6.0-17.0 BUN) Creatinine (test 0.9 mg/dl 0.4-1.2 code = CREA) Sodium (test code = 143 mmol/l 137-145 NA) Potassium (test 4.2 mmol/l 3.5-5.0 code = K) Chloride (test code 105 mmol/l 98-107 = CL) CO2 (test code = 29 mmol/l 22-30 CO2) Calcium (test code 8.8 mg/dl 8.4-10.2 = CALC) T Protein (test 7.2 gm/dl 5.1-8.7 code = TP) Albumin (test code 3.5 gm/dl 3.5-4.6 = ALB) A/G Ratio (test 0.9 % 1.1-2.2 L code = AGRAT) AST (SGOT) (test 45 U/L 11-36 H code = AST) ALT (SGPT) (test 87 U/L 11-40 H code = ALT) Alkaline Phos (test 77 U/L 47-114 code = ALKP) Total Bilirubin 0.8 mg/dl 0.2-1.2 (test code = TBIL) Globulin (test code 3.7 gm/dl 2.3-3.5 H = GLOBU) Calcium, Corrected 9.2 mg/dl 8.4-10.2 Various f ormulas exist (test code = for corrected s teresa CALCCORR) calcium results , each yielding differ ent values. This corrected resul t was based on the fo rmula: Corrected Calci um = SerumCalcium + [0.8 * ( 4 - SerumAlbu min)] EGFR if >60 [place] (test code mL/min/1.73m\\ = EGFRAA) S\\2 EGFR if Non- >60 Estimate d Glomerular [place] (test code mL/min/1.73m\\ Filtrat ion Rate (eGFR) = EGFRNA) S\\2 Reference Inter vals Decision Points for 18 years and older and average body ma ss: >= 60 Does not exc lude kidney disease. 30 - 59 Suggests modera te chronic kidney disease and indicat es the need for furthe r investigation including asses sment of proteinuria and cardiovascular factors. < 30 Usually in dicates a need for refe rral for assessment and management of c hronic kidney failure. CBC WITH AUTO [id number] 05:57:00 Test Item Value Reference Range Interpretation Comments WBC (test code = 7.49 10\\S\\3/ul 4.80-10.80 WBC) RBC (test code = 4.17 10\\S\\6/ul 4.70-6.10 L RBC) Hemoglobin (test 11.3 gm/dl 14.0-18.0 L code = HGB) Hematocrit (test 35.5 % 42.0-50.0 L code = HCT) MCV (test code = 85.1 fL 80.0-94.0 MCV) MCH (test code = 27.1 pg 27.0-31.0 MCH) MCHC (test code = 31.8 gm/dl 33.0-37.0 L MCHC) RDW (test code = 16.1 % 11.5-14.5 H RDWVC) Platelet (test code 222 10\\S\\3/ul 130-400 = PLT) MPV (test code = 9.5 fL 7.4-10.4 A "NOT MEASUR ED" MPV) RESULTS ARE DIS PLAYED WHEN THE INSTRU MENT HAS A SUPPRESSE D OR UNREPORTABLE RE SULT. THIS WILL MOST OFTEN HAPPEN WITH THE MPV WHEN THERE IS A N ABNORMAL PLATLE T DISTRIBUTION DU E TO A CRITICAL LOW VA LUE OR PLATELET CLUMPI NG. NE% (test code = 64.4 % 42.0-75.0 NE) LY% (test code = 16.2 % 13.0-42.0 LY) MO% (test code = 12.6 % 4.0-14.0 MO) EO% (test code = 1.3 % 1.0-3.0 EO) BA% (test code = 0.7 % 1.0-3.0 L BA) IG% (test code = 4.8 % 0.0-0.4 H IG%) [id number] 05:41:00 Test Item Value Reference Range Interpretation Comments Magnesium (test code = MG) 2.0 mg/dl 1.6-2.3 [id number] 05:41:00 Test Item Value Reference Range Interpretation Comments Glucose (test code 114 mg/dl 75-110 H = GLU) BUN (test code = 8.0 mg/dl 6.0-17.0 BUN) Creatinine (test 0.9 mg/dl 0.4-1.2 code = CREA) Sodium (test code = 145 mmol/l 137-145 NA) Potassium (test 3.9 mmol/l 3.5-5.0 code = K) Chloride (test code 105 mmol/l 98-107 = CL) CO2 (test code = 28 mmol/l 22-30 CO2) Calcium (test code 8.8 mg/dl 8.4-10.2 = CALC) T Protein (test 7.0 gm/dl 5.1-8.7 code = TP) Albumin (test code 3.2 gm/dl 3.5-4.6 L = ALB) A/G Ratio (test 0.8 % 1.1-2.2 L code = AGRAT) AST (SGOT) (test 75 U/L 11-36 H code = AST) ALT (SGPT) (test 113 U/L 11-40 H code = ALT) Alkaline Phos (test 100 U/L 47-114 code = ALKP) Total Bilirubin 1.0 mg/dl 0.2-1.2 (test code = TBIL) Globulin (test code 3.8 gm/dl 2.3-3.5 H = GLOBU) Calcium, Corrected 9.4 mg/dl 8.4-10.2 Various f ormulas exist (test code = for corrected s teresa CALCCORR) calcium results , each yielding differ ent values. This corrected resul t was based on the fo rmula: Corrected Calci um = SerumCalcium + [0.8 * ( 4 - SerumAlbu min)] EGFR if >60 [place] (test code mL/min/1.73m\\ = EGFRAA) S\\2 EGFR if Non- >60 Estimate d Glomerular [place] (test code mL/min/1.73m\\ Filtrat ion Rate (eGFR) = EGFRNA) S\\2 Reference Inter vals Decision Points for 18 years and older and average body ma ss: >= 60 Does not exc lude kidney disease. 30 - 59 Suggests modera te chronic kidney disease and indicat es the need for furthe r investigation including asses sment of proteinuria and cardiovascular factors. < 30 Usually in dicates a need for refe rral for assessment and management of c hronic kidney failure. LACTIC ACID [id number] 06:43:00 Test Item Value Reference Range Interpretation Comments LACTATE (test code = LAC) 0.9 mmol/l 0.7-2.0 GLYCOSALATED [id number] 05:41:00 Test Item Value Reference Range Interpretation Comments Hemoglobin A1C (test 9.06 % 4.3-6.0 A code = GLYCO) Mean Plasma Glucose 245 mg/dl 90-180 WHEN BONIFACIO T RESULTS FOR (test code = MPG) A1C EXCEED 14.0, THE LINEAR LIMIT OF THE INSTRUMENT, THE CALCULATED RESU LT FOR THE MEAN GLUCOS E IS NOT RELIABLE. CORONARY [id number] 05:09:00 Test Item Value Reference Range Interpretation Comments Triglycerides (test 186 mg/dl 0-149 H Trig. In terpretation code = TRIG) Guide: Nor mal: < 150 mg/dl Borderline High : 150 - 199 mg/dl High: 200 - 499 mg/dl Very High: >= 5 00 mg/dl Cholesterol (test code 146 mg/dl 0-198 = CHOL) HDL (test code = HDL) 24 mg/dl 35-86 L dLDL (test code = 89 mg/dl 0-99 Direct LDL DILDL) Intrepretations : Optimal: <100 mg/dl Suspect: 100 - 129 mg/dl Border line: 130 - 159 mg/dl High: 160 - 189 mg/dl Very High: >1 90 mg/dl Risk Factor (test code 6.1 0.0-5.0 H Risk Factor = RFACT) Men Women R isk Factor 3.4 3.3 1/ 2 Average 5.0 4.4 Average 9.6 7.1 2X Average 24.0 11.0 3X Average vLDL (test code = 37 mg/dl 30-60 VLDL) [id number] 04:51:00 Test Item Value Reference Range Interpretation Comments Magnesium (test code = MG) 2.1 mg/dl 1.6-2.3 [id number] 04:51:00 Test Item Value Reference Range Interpretation Comments CPK (test code = CPK) 93 U/L 30-135 LIPASE, [id number] 04:43:00 Test Item Value Reference Range Interpretation Comments Lipase (test code = LIPA) 116 U/L 8-223 [id number] 04:43:00 Test Item Value Reference Range Interpretation Comments Glucose (test code 95 mg/dl 75-110 = GLU) BUN (test code = 10.0 mg/dl 6.0-17.0 BUN) Creatinine (test 0.8 mg/dl 0.4-1.2 code = CREA) Sodium (test code = 143 mmol/l 137-145 NA) Potassium (test 3.4 mmol/l 3.5-5.0 L code = K) Chloride (test code 104 mmol/l 98-107 = CL) CO2 (test code = 29 mmol/l 22-30 CO2) Calcium (test code 9.0 mg/dl 8.4-10.2 = CALC) T Protein (test 7.6 gm/dl 5.1-8.7 code = TP) Albumin (test code 3.6 gm/dl 3.5-4.6 = ALB) A/G Ratio (test 0.9 % 1.1-2.2 L code = AGRAT) AST (SGOT) (test 58 U/L 11-36 H code = AST) ALT (SGPT) (test 93 U/L 11-40 H code = ALT) Alkaline Phos (test 97 U/L 47-114 code = ALKP) Total Bilirubin 1.3 mg/dl 0.2-1.2 H (test code = TBIL) Globulin (test code 4.0 gm/dl 2.3-3.5 H = GLOBU) Calcium, Corrected 9.3 mg/dl 8.4-10.2 Various f ormulas exist (test code = for corrected s teresa CALCCORR) calcium results , each yielding differ ent values. This corrected resul t was based on the fo rmula: Corrected Calci um = SerumCalcium + [0.8 * ( 4 - SerumAlbu min)] EGFR if >60 [place] (test code mL/min/1.73m\\ = EGFRAA) S\\2 EGFR if Non- >60 Estimate d Glomerular [place] (test code mL/min/1.73m\\ Filtrat ion Rate (eGFR) = EGFRNA) S\\2 Reference Inter vals Decision Points for 18 years and older and average body ma ss: >= 60 Does not exc lude kidney disease. 30 - 59 Suggests modera te chronic kidney disease and indicat es the need for furthe r investigation including asses sment of proteinuria and cardiovascular factors. < 30 Usually in dicates a need for refe rral for assessment and management of c hronic kidney failure. CBC (HEMOGRAM ONLY)[id number] 04:37:00 Test Item Value Reference Range Interpretation Comments WBC (test code = 7.74 10\\S\\3/ul 4.80-10.80 WBC) RBC (test code = 4.39 10\\S\\6/ul 4.70-6.10 L RBC) Hemoglobin (test 12.0 gm/dl 14.0-18.0 L code = HGB) Hematocrit (test 37.4 % 42.0-50.0 L code = HCT) MCV (test code = 85.2 fL 80.0-94.0 MCV) MCH (test code = 27.3 pg 27.0-31.0 MCH) MCHC (test code = 32.1 gm/dl 33.0-37.0 L MCHC) RDW (test code = 15.9 % 11.5-14.5 H RDWVC) Platelet (test code 185 10\\S\\3/ul 130-400 = PLT) MPV (test code = 9.5 fL 7.4-10.4 A "NOT MEASUR ED" MPV) RESULTS ARE DIS PLAYED WHEN THE INSTRU MENT HAS A SUPPRESSE D OR UNREPORTABLE RE SULT. THIS WILL MOST OFTEN HAPPEN WITH THE MPV WHEN THERE IS A N ABNORMAL PLATLE T DISTRIBUTION DU E TO A CRITICAL LOW VA LUE OR PLATELET CLUMPI NG. THIS IS A HEMOGRAM ONLY
[2019-10-15] MEDS ORDERED: NA CHLORIDE 0.9% 1,000 ML ONE (07:45)
[2019-10-15] MEDS: CEFAZOLIN/SWI 1gm 1 GM/10 ML SYR ONE ×2 (08:09→08:25)
[2019-10-15] MEDS ORDERED: FENTANYL CITR 100 MCG/2 ML ONE (08:16)
[2019-10-15] MEDS ORDERED: propofoL 200 MG/20 ML VIAL IV ONE (08:16)
[2019-10-15] MEDS ORDERED: MIDAZOLAM HCL 2 MG/2 ML INJ ONE (08:16)
[2019-10-15] MEDS ORDERED: dexAMETHasone 10 MG/ML VIAL ONE (08:17)
[2019-10-15] MEDS ORDERED: LIDOCAINE 2% MPF 5 ML VIAL ONE (08:17)
[2019-10-15] MEDS ORDERED: KETOROLAC 30 MG/ML INJ ONE (08:53)
[2019-10-15] MEDS ORDERED: EPHEDRINE SULF 50 MG/ML VIAL ONE (08:54)
[2019-10-15] MEDS ORDERED: Ringers Lactate 1,000 ML IV ONE (09:21)
[2019-10-15 09:56] VITALS: O2SAT 94
[2019-10-15 10:30] VITALS: BP 135/74; TEMP 97.3
[2019-10-15] MEDS ORDERED: HYDROCODONE/APAP 7.5/325 MG TAB ONE (10:55)
--- NOTE | 2019-10-15 11:00 | OP ---
Date of Procedure: 10/15/2019 Surgeon: Shan Alcazar MD Preoperative Diagnosis: Infected wound, right groin. Postoperative Diagnosis: Infected wound, right groin. Procedure: Wide excision, right groin infected wound, 6 x 4 cm and layered closure. Estimated Blood Loss: Minimal. Specimen: Culture and sensitivity of the infected tissue as well as the tissue itself. Findings: As above. Anesthesia: General. Complications: None. Condition: Patient tolerated the procedure in stable condition, taken to Recovery in good general co ndition. Operative Note: Patient was brought to the OR and placed in supine position. General anesthesia beg un. Patient was prepped and draped in usual sterile fashion. There was a 3 cm infected wound in kin meter in the right groin. Marcaine 0.5% was infiltrated locally and then the entire infected wound e xcised with an incision of 6 x 4 cm, ellipse in nature to include the entire infected cyst in area do wn through the subcutaneous tissue. Bleeding controlled with cautery. The cyst was opened up. Cultu res were done and tissue sent to Pathology. Wound irrigated. Bleeding controlled with cautery. Fla ps created and then a Eliot quarter-inch drain placed, secured with 2-0 nylon and 2-0 chromic used to loosely approximate the subcutaneous tissue and 3-0 nylon used to loosely approximate the skin. S terile dressing was applied. Patient was awakened and taken to Recovery in good general condition. Discharge Note: Patient will go to Day Surgery, then home when stable. Disposition: Home. Condition: Stable. Discharge Instructions: Resume home medications and diet. Activity as tolerated. No heavy lifting. Remove outer dressing in 2 days, shower. Keep wound clean and dry. Dry gauze to wound daily. Ant ibiotics have already been prescribed. Tylenol No. 3, one tablet p.o. q4 p.r.n. pain. Follow up in my office in 1 week. Call for appointment. BARBARA/KAUR Voice ID: [id number] Report ID: [id number]
== END 2019-10-15 11:20 | disposition home or self-care (01) ==
LOC: OR 07:20
PROVIDERS: ATTEND Surgery
PROC: 0JB80ZZ Excision of Abdomen Subcutaneous Tissue and Fascia, Open Approach (ICD-10-PCS; principal; 2019-10-15 08:30)
DX: L98.499 Non-pressure chronic ulcer of skin of other sites with unspecified severity (principal); L02.214 Cutaneous abscess of groin; I10 Essential (primary) hypertension; G47.33 Obstructive sleep apnea (adult) (pediatric); E66.01 Morbid (severe) obesity due to excess calories; Z68.42 Body mass index [BMI] 45.0-49.9, adult
CPT/HCPCS: 11406; 87070; 85025; 80048; 36415; 87205 ×2; 82947 ×2; 88304; 87075; 87077; 87186; J2704; J2250; J3010; J1100; J0690; J7120; J7030; 88305

== ENCOUNTER 2019-11-02 02:24 | Emergency (ER) | payer BC, OTHER, SELFPAY ==
--- OUTSIDE RECORDS SUMMARY | 2019-11-02 02:28 | XMS REPORT | Continuity of Care Document ---
:1965 Author Organization [employer] Care Team Providers Name Role Phone [employer] Unavailable Un available Problems Problem Status Onset Classification Date Comments Sourc e Date Reported LUMBAR STENOSIS Active [address] M54.[address] Abdominal pain Resolved Problem 12/07/2017 Misc her (finding) Neuro,[facility] Chest pain (finding) Resolved Problem 12/07/2017 [facility] Chronic back pain Resolved Problem 12/07/2017 M ischer (disorder) Neuro,[facility] Diabetes mellitus Active Problem 12/07/2017 M ischer (disorder) Neuro,[facility] Hypercholesterolemia Active Problem 12/07/2017 [facility] (disorder) Neuro,[facility] Hypertensive disorder, Active Problem 12/07/2017 [facility] systemic arterial Ne uro, (disorder) [facility] Morbid obesity Active Problem 12/07/2017 Misc her (disorder) Neuro,[facility] 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 Neuro, (disorder) [facility] Medications Medication Details Route Status Patient Ordering Order Source Instructions Provider Date amitriptyline 10 10 mg = 1 Active Misch er mg oral tablet tab, PO, 017 Neuro Bedtime, 4 tabs at bedtime for 1 week then 5 tabs at bedtime thereafter , # 150 tab, 2 Refill(s), Pharmacy: [facility] diclofenac sodium 75 mg = 1 Active Misc her 75 mg oral enteric tab, PO, 017 Neur o coated, BID, PRN delayed-release Pain Score tablet 7-10, # 60 tab, 2 Refill(s), Pharmacy: [facility] Cyclobenzaprine 10 mg = 1 Active Mische r hydrochloride 10 tab, PO, 017 Neuro MG Oral Tablet BID, # 60 [Flexeril] tab, 2 Refill(s), Pharmacy: [facility] Sodium Chloride 4.2 mL, Inactive Mischer Route: 017 Neuro EPIDURAL, Dosing Weight 141.364, kg, ONCE, (Preservat liliana Free), Start date: 04/25/17 8:50:00 [employer], Stop date: 04/25/17 8:50:00 [employer] Lidocaine 3 mL, Inactive [facility] Hydrochloride 10 Route: 017 Neuro MG/ML Injectable SUB-Q, Solution Dosing Weight 141.364, kg, ONCE, (Preservat liliana Free), Start date: 04/25/17 8:50:00 [employer] SPECIALIST, Stop date: 04/25/17 8:50:00 [employer]IST Omnipaque 300 2 mL, Inactive Mischer Route: 017 Neuro EPIDURAL, Dosing Weight 141.364, kg, ONCE, (Preservat liliana Free), Start date: 04/25/17 8:50:00 [employer]IST, Stop date: 04/25/17 8:50:00 [employer]IST Dexamethasone 8 mg, Inactive Mischer Route: 017 Neuro EPIDURAL, ONCE, Dosing Weight 141.364, kg, (Preservat liliana Free), Start date: 04/25/17 8:50:00 [employer]IST, Stop date: 04/25/17 8:50:00 [employer]IST Bupivacaine 2 mL, Inactive [facility] Hydrochloride 2.5 Route: 017 Neuro MG/ML Injectable EPIDURAL, Solution Dosing Weight 141.364, kg, ONCE, (Preservat liliana Free), Start date: 04/25/17 8:50:00 [employer], Stop date: 04/25/17 8:50:00 [employer]IST Allergies, Adverse Reactions, Alerts No Known Medication Allergies Immunizations No Data Provided for This Section Results Order Name Results Value Reference Date Interpretation Comments Danica [facility] HEMATOLOGY PTT 29.4 22.9 - 35.[address] HEMATOLOGY PT 12.8 12.0 - 14.[address] HEMATOLOGY INR 0.96 0.85 - 1.[address] CHEM PANEL eGFR [address] [address] Comment: The Medical eGFR is Center calculated [...] CHEM PANEL Creatinine 0.92 0.50 - 1.40 04/[address] CHEM PANEL BUN 21 7 - 22 04/[address] HEMATOLOGY MCV 84.7 80.0 - 94.0 04/[address] HEMATOLOGY Hct 41.3 42.0 - 54.0 04/[address] HEMATOLOGY MCH 27.9 27.0 - 31.0 04/[address] HEMATOLOGY MCHC 32.9 32.0 - 36.0 04/[address] HEMATOLOGY WBC 7.2 3.7 - 10.4 04/[address] HEMATOLOGY RBC 4.87 4.70 - 6.10 04/[address] HEMATOLOGY Hgb 13.6 14.0 - 18.[address] HEMATOLOGY RDW 16.1 11.5 - 14.5 04/[address] HEMATOLOGY Platelet 239 133 - 450 04/[address] HEMATOLOGY MPV 8.0 7.4 - 10.4 04/[address] Pathology Reports No Data Provided for This Section Diagnostic Reports Report Value Date Source Spine thoracic EXAM: CT [facility] [facility] MYELO[facility] THORACIC SPINE Center [...] myelogram EXAM: CT MYELOGRAM LUMBAR SPINE 7 [facility] CT EXAM: CT MYELOGRAM THORACIC SPINE Center [...] myelogram EXAM: CT MYELOGRAM LUMBAR SPINE 7 [facility] EXAM: CT MYELOGRAM THORACIC SPINE Center EXAM: [...] thoracic EXAM: CT MYELOGRAM LUMBAR SPINE 04/29/2017 [facility] Medical myelogram DX EXAM: CT MYELOGRAM THORACIC [...] EXAM: XR ENTIRE SPINE 2 VIEWS 03/19/2017 [facility] 6+ Views DX DATE: 03/19/2017 10:49 AM [...] Date Comments Source Height 177.8 cm 06/05/2017 [facility] Neuro Weight 146.818 06/05/2017 [facility] BMI Calculated 46.44 06/05/2017 [facility] Neuro Systolic (mm Hg) 130 06/05/2017 [facility] Jaxson ro Diastolic (mm Hg) 83 06/05/2017 [facility] Ne uro Temperature Oral (F) 99.3 F 06/05/2017 [facility] Neuro Heart Rate 70 06/05/2017 [facility] BMI Calculated 44.72 04/29/2017 [facility] Weight 141.36 04/29/2017 [facility] Height 177.8 cm 04/29/2017 [facility] Heart Rate 66 04/29/2017 [facility] Respitory Rate 20 04/29/2017 [facility] Systolic (mm Hg) 140 04/29/2017 [facility] Diastolic (mm Hg) 73 04/29/2017 [facility] Encounters Location Location Encounter Encounter Reason Attending ADM [place] Stat us Source Details Type Number For Provider Date Date Visit Outpatient [id number] VIOLA 08/19 Active [facility] JARED [place] Outpatient [id number] MANJINDER KOWALSKI 09/04 Act [facility]itesh Outpatient [id number] MANJINDER KOWALSKI 03/19 Act [facility] [place] Outpatient [id number] [place] 03/[address] [facility] Outpatient [id number] Manjinder Kowalski 03/19 03/20 [facility] Outpatient [id number] DULCE THOMPSONN 04/04 Act [facility] MNA Spine Phone [id number] 04/24 04/26 [facility]2016 [facility] Spine Phone [id number] 04/24 04/26 [facility] Message /2016 Neuro [facility] Outpatient [id number] [place] 04/[address] [facility] MNA Spine Outpatient [id number] Harjeet 04/25 04/26 [facility] Neuro [facility] Outpatient [id number] Dulce Lau 04/29 04/30 [facility] MNA Spine Phone [id number] 04/30 05/02 [facility] Message /2016 Neuro [facility] Outpatient [id number] DULCE LAU 06/05 Act [facility] [place] MNA Spine Outpatient [id number] Harjeet 06/05 [facility] MNA Spine Phone [id number] 06/06 06/08 [facility] Message /2017 Neuro [facility] Outpatient [id number] DULCE LAU 12/[address] [facility] [place] MNA Spine Ambulatory [id number] Harjeet 12/04 12/04 [facility] Pre-Reg Neuro [facility] Procedures Procedure Code Date Perfomer Comments Source Myelography via 24074 04/29/2017 [facility] thoracic Myelography via [id number] 04/29/2017 [facility] lumbar [facility] radiological supervision and interpretation; lumbosacral NJX INTERLAMINAR 04/25/2017 [facility] Neuro LMBR/SA Ear operations [id number] [facility] [id number] [facility] [id number] [facility] steroid injection Neuro,[facility] Nose operation [id number] [facility] Operation [id number] [facility] Assessment and Plan No Data Provided for This Section Plan of Care No Data Provided for This Section Social History Social History Date Source Social History TypeResponse 06/05/2017 [facility] o Smoking Status Former smoker; Type: Cigarettes; Exposur e to Tobacco Smoke None; Cigarette Smoking Last 365 Days No; Reg Smoking Cessation Counseling No entered on: 06/05/17 Social History TypeResponse 04/29/2017 [facility] Smoking Status Former smoker; Type: Cigarettes; Exposur e to Tobacco Smoke None; Cigarette Smoking Last 365 Days No; Reg Smoking Cessation Counseling No Family History No Data Provided for This Section Advance Directives No Data Provided for This Section Functional Status No Data Provided for This Section
--- OUTSIDE RECORDS SUMMARY | 2019-11-02 02:34 | XMS REPORT | Continuity of Care Document ---
:1965 Author Organization [facility] t Address [address] [place] [address] Care Team Providers Name Role Phone Anupam Atkins MD Attending Clinician Doctor Unassigned, Chance Attending Clinician Unavailable Rody Lau Attending Clinician Joey Jesus Attending Clinician Vandana Kowalski Attending Clinician TARAPASADE Attending Clinician Unavailable BUSUEGO Attending Clinician Unavailable TARAPASADE Admitting Clinician Unavailable BUSUEGO Admitting Clinician Unavailable Problems Condition Condition Condition Status Onset Resolution Last Treating Co mments Source Name Details Category Date Date Treatment Clinician Date LUMBAR Diagnosis Active 2016-052017-04-29 Mem oria STENOSIS 1-14 09:02:00 l LUMBAR 00:00: Lula STENOSIS 00 Active 04/08/2017 [facility] M54.16 Diagnosis Active 2016-052017-03-19 Mem oria 0-25 10:29:00 l M54.16 00:00: Mitesh 00 Active 03/19/2017 [facility] Abdominal Problem Resolve 2017-12-07 M emoria pain d 00:03:51 l (finding) Mitesh Abdominal pain (finding) Resolved Problem 12/07/2017 [facility] Chest pain Problem Resolve 2017-12-07 Memoria (finding) d 00:03:51 l Chest Mitesh pain (finding) Resolved Problem 12/07/2017 [facility] Chronic Problem Resolve 2017-12-07 Mem oria back pain d 00:03:51 l (disorder) Chronic Her mauricio back pain (disorder) Resolved Problem 12/07/2017 [facility] Diabetes Problem Active 2017-12-07 Mem oria mellitus 00:03:51 l (disorder) Diabetes He rmann mellitus (disorder) Active Problem 12/07/2017 [facility] Hyperchole Problem Active 2017-12-07 M emoria sterolemia 00:03:51 l (disorder) Gabo n Hyperchole sterolemia (disorder) Active Problem 12/07/2017 [facility] Hypertensi Problem Active 2017-12-07 M emoria ve 00:03:51 l disorder, Lula systemic Hypertensi arterial ve (disorder) disorder, systemic arterial (disorder) Active Problem 12/07/2017 [facility] Morbid Problem Active 2017-12-07 Memor ia obesity 00:03:51 l (disorder) Morbid Herm chacorta obesity (disorder) Active Problem 12/07/2017 [facility] Prolapsed Problem Active 2017-12-07 Me moria lumbar 00:03:51 l interverte Gabo n bral disc Prolapsed (disorder) lumbar interverte bral disc (disorder) Active Problem 12/07/2017 [facility] Allergies, Adverse Reactions, Alerts This patient has no known allergies or adverse reactions. Social History Smoking Status Start Date Stop Date Source Social History 2017-04-29 16:58:10 2017-04-29 16:58:10 [facility] Medications Ordered Filled Start Stop Current Ordering Indication Dosage Frequency Signature Comments Components Source Medication Medication Date Date Medication? Clinician (SIG) Name Name amitriptyli 2016-05 Yes 10 mg = 1 M emoria ne 10 mg 2-01 tab, PO, l oral tablet 14:52: Bedtime, 4 Mitesh 00 tabs at bedtime for 1 week then 5 tabs at bedtime thereafter , # 150 tab, 2 Refill(s), Pharmacy: [id number] diclofenac 2016-05 Yes 75 mg = 1 Me moria sodium 75 2-01 tab, PO, l mg oral 14:52: BID, PRN Gabo n enteric 00 Pain Score coated, 7-10, # 60 delayed-rel tab, 2 ease tablet Refill(s), Pharmacy: [id number] Cyclobenzap 2016- Yes 10 mg = 1 M emoria rine 2-01 tab, PO, l hydrochlori 14:52: BID, # 60 H ermann de 10 MG 00 tab, 2 Oral Tablet Refill(s), [Flexeril] Pharmacy: [id number] Sodium 2016- Yes 4.2 mL, Memoria Chloride 2- Route: l 14:50: EPIDURAL, Mitesh 00 Dosing Weight 141.364, kg, ONCE, (Preservat liliana Free), Start date: 04/25/17 8:50:00 [employer], Stop date: 04/25/17 8:50:00 [employer] Lidocaine 2017- Yes 3 mL, Memoria Hydrochlori 2- Route: l de 10 MG/ML 14:50: SUB-Q, Herm chacorta Injectable 00 Dosing Solution Weight 141.364, kg, ONCE, (Preservat liliana Free), Start date: 04/25/17 8:50:00 [employer], Stop date: 04/25/17 8:50:00 [employer] Omnipaque 2017- Yes 2 mL, Memoria 300 2- Route: l 14:50: EPIDURAL, Mitesh 00 Dosing Weight 141.364, kg, ONCE, (Preservat liliana Free), Start date: 04/25/17 8:50:00 [employer], Stop date: 04/25/17 8:50:00 [employer] Dexamethaso 2017-1 Yes 8 mg, Memor ia ne 2- Route: l 14:50: EPIDURAL, Mitesh 00 ONCE, Dosing Weight 141.364, kg, (Preservat liliana Free), Start date: 04/25/17 8:50:00 [employer], Stop date: 04/25/17 8:50:00 [employer] Bupivacaine 2017-1 Yes 2 mL, Memor ia Hydrochlori 2- Route: l de 2.5 14:50: EPIDURAL, Gabo n MG/ML 00 Dosing Injectable Weight Solution 141.364, kg, ONCE, (Preservat liliana Free), Start date: 04/25/17 8:50:00 [employer], Stop date: 04/25/17 8:50:00 [employer] Vital Signs Vital Name Observation Time Observation Value Comments Source Height 2017-06-05 17:46:00 177.8 cm [facility] Weight 2017-06-05 17:46:00 [facility] Mitesh BMI Calculated 2017-06-05 17:46:00 Memori al Mitesh Systolic (mm Hg) 2017-06-05 17:46:00 Chuck rial Mitesh Diastolic (mm Hg) 2017-06-05 17:46:00 Mem orial Lula Temperature Oral (F) 2017-06-05 17:46:00 99.3 F [facility] Heart Rate 2017-06-05 17:46:00 [facility] BMI Calculated 2017-04-29 15:23:00 Memori al Mitesh Weight 2017-04-29 15:23:00 [facility] Mitesh Height 2017-04-29 15:23:00 177.8 cm [facility] Heart Rate 2017-04-29 15:00:00 [facility] Mitesh Respitory Rate 2017-04-29 15:00:00 Memori al Lula Systolic (mm Hg) 2017-04-29 15:00:00 Chuck rial Mitesh Diastolic (mm Hg) 2017-04-29 15:00:00 Mem orial Mitesh Procedures Procedure Date / Time Performed Performing Clinician [facility] e Myelography via lumbar 2017-04-29 16:14:00 Memor ial Mitesh injection, including radiological supervision and interpretation; thoracic Myelography via lumbar 2017-04-29 16:14:00 Memor ial Mitesh injection, including radiological supervision and interpretation; lumbosacral NJX INTERLAMINAR LMBR/SA 2017-04-25 14:50:00 Mem orial Lula Ear operations [facility] Lumbar epidural injection Memori al Lula Lumbar epidural steroid [facility] injection Nose operation [facility] Operation [facility] Encounters Start End Encounter Admission Attending Care Care Encounter Source Date/Time Date/Time Type Type Clinicians Facility Department ID 2019-06-16 2019-06-16 Telephone Atkins, [facility] [id number] 00:00:00 00:00:00 Anupam Robert [id number] Dottie [id number] Hayley [id number] [facility] 2019-06-09 2019-06-09 Telephone Atkins, [facility] [id number] 00:00:00 00:00:00 Anupam Robert [id number] [place] [id number] Professio [id number] [address] 2019-02-10 2019-02-10 [id number] 00:00:00 00:00:00 Anupam Robert [id number] [place] [id number] Professio [id number] [address] 2018-12-13 2018-12-13 Orders Doctor DULCE [id number] 00:00:00 00:00:00 Only Unassigned, KIMBERLY [id number] Chance [facility] [id number] [id number] 2018-11-27 2018-11-27 Refill Wilbert [facility] [id number] 00:00:00 00:00:00 Anupam Robert [id number] [place] [id number] Professio [id number] [address] 2017-12-04 2017-12-04 Outpatient Dulce Lau [facility] [id number] 10:30:00 10:30:00 C 07 2017-06-06 2017-06-07 Outpatient [facility] [id number] 14:31:00 23:59:59 2017-06-06 2017-06-07 Outpatient [facility] [id number] 14:31:00 23:59:59 09 2017-06-05 2017-06-05 Outpatient Dulce Lau [facility] [id number] 11:30:00 23:59:59 C 2017-06-05 2017-06-05 Outpatient Dulce Lau [facility] [id number] 11:30:00 23:59:59 C 05 2017-04-30 2017-05-01 Outpatient [facility] [id number] 11:52:00 23:59:59 08 2017-04-29 2017-04-29 Outpatient Dulce Lau [facility] [id number] 08:20:00 23:59:00 C 00 2017-04-25 2017-04-25 Outpatient Edin, [facility] [id number] 08:00:00 23:59:59 Camacho Cook 06 2017-04-24 2017-04-25 Outpatient [facility] [id number] 16:30:00 23:59:59 07 2017-04-24 2017-04-25 Outpatient [facility] [id number] 16:27:00 23:59:59 06 2017-03-19 2017-03-19 Outpatient Manjinder Kowalski [facility] [id number] 10:22:00 23:59:00 Hwan 98 Results Test Description Test Time Test Comments Results Result Comments Source HEMATOLOGY 2017-04-29 16:42:00 Test Item Value Reference Range Interpretation Comme nts PTT (test code = PTT) 29.4 s 22.9-35.8 [facility] [id number] 16:42:00 Test Item Value Reference Range Interpretation Comments PT (test code = PT) 12.8 s 12.0-14.7 [facility] [id number] 16:42:000.96[facility] HermannCHEM PANEL 2017-04-29 15:26:0095[facility] HermannCHEM [id number] 15:26:000.92[facility] HermannCHEM [id number] 15:26:0021[facility] [id number] 15:26:0084.7[facility]orial [id number] 15:26:0041.3[facility] Mitesh [id number] 15:26:00 Test Item Value Reference Range Interpretation Comments MCH (test code = MCH) 27.9 pg 27.0-31.0 [facility] [id number] 15:26:0032.9[facility] HermannHEMATOLOGY 2017-04-29 15:26:007.2[facility] [id number] 15:26:004.87[facility] [id number] 15:26:0013.6[facility] [id number] 15:26:0016.1[facility] [id number] 15:26:71110Eqkojvbk Lula [id number] 15:26:008.0[facility] [id number] 05:57:00 Test Item Value Reference Range Interpretation [...] 4 - SerumAlbu min)] EGFR if >60 Jamaican (test code mL/min/1.73m\\ = EGFRAA) S\\2 EGFR if Non- >60 Estimate d Glomerular Jamaican (test code mL/min/1.73m\\ Filtrat ion Rate (eGFR) [...] c hronic kidney failure. CBC WITH AUTO [id number] 05:42:00 Test Item Value Reference Range Interpretation [...] code = 1.0 % 0.0-0.4 H IG%) [id number] 05:53:00 Test Item Value Reference Range Interpretation [...] 4 - SerumAlbu min)] EGFR if >60 Jamaican (test code mL/min/1.73m\\ = EGFRAA) S\\2 EGFR if Non- >60 Estimate d Glomerular Jamaican (test code mL/min/1.73m\\ Filtrat ion Rate (eGFR) [...] c hronic kidney failure. CBC WITH AUTO [id number] 05:27:00 Test Item Value Reference Range Interpretation [...] code = 1.7 % 0.0-0.4 H IG%) [id number] 04:36:00 Test Item Value Reference Range Interpretation [...] 4 - SerumAlbu min)] EGFR if >60 Jamaican (test code mL/min/1.73m\\ = EGFRAA) S\\2 EGFR if Non- >60 Estimate d Glomerular Jamaican (test code mL/min/1.73m\\ Filtrat ion Rate (eGFR) [...] c hronic kidney failure. CBC WITH AUTO [id number] 04:14:00 Test Item Value Reference Range Interpretation [...] code = 1.9 % 0.0-0.4 H IG%) [id number] 04:40:00 Test Item Value Reference Range Interpretation [...] 4 - SerumAlbu min)] EGFR if >60 Jamaican (test code mL/min/1.73m\\ = EGFRAA) S\\2 EGFR if Non- >60 Estimate d Glomerular Jamaican (test code mL/min/1.73m\\ Filtrat ion Rate (eGFR) [...] c hronic kidney failure. CBC WITH AUTO [id number] 04:09:00 Test Item Value Reference Range Interpretation [...] = 2.4 % 0.0-0.4 H IG%) CULTURE, [id number] 06:50:00To start 15mins after 1st cultureSpecimen: BloodCollected: 01/18/2017 04:05 Status: Final Last Updated: 01/23/2017 06:49 (1) To start 15mins after 1st culture Culture Result (Final) (Final) No Growth After 5 DaysCULTURE, [id number] 06:50:00Specimen: BloodCollected: 01/18/2017 03:55 Status: Final Last [...] code = 3.4 % 0.0-0.4 H IG%) [id number] 04:19:00 Test Item Value Reference Range Interpretation [...] 4 - SerumAlbu min)] EGFR if >60 Jamaican (test code mL/min/1.73m\\ = EGFRAA) S\\2 EGFR if Non- >60 Estimate d Glomerular Jamaican (test code mL/min/1.73m\\ Filtrat ion Rate (eGFR) [...] c hronic kidney failure. CBC WITH AUTO [id number] 04:57:00 Test Item Value Reference Range Interpretation [...] 4.0 % 0.0-0.4 H IG%) CBC AUTO [id number] 04:35:00 Test Item Value Reference Range Interpretation [...] 4 - SerumAlbu min)] EGFR if >60 Jamaican (test code mL/min/1.73m\\ = EGFRAA) S\\2 EGFR if Non- >60 Estimate d Glomerular Jamaican (test code mL/min/1.73m\\ Filtrat ion Rate (eGFR) [...] c hronic kidney failure. CBC WITH AUTO [id number] 05:01:00 Test Item Value Reference Range Interpretation [...] 4.5 % 0.0-0.4 H IG%) CBC AUTO [id number] 04:56:00 Test Item Value Reference Range Interpretation [...] 4 - SerumAlbu min)] EGFR if >60 Jamaican (test code mL/min/1.73m\\ = EGFRAA) S\\2 EGFR if Non- >60 Estimate d Glomerular Jamaican (test code mL/min/1.73m\\ Filtrat ion Rate (eGFR) [...] c hronic kidney failure. CBC WITH AUTO [id number] 05:57:00 Test Item Value Reference Range Interpretation [...] code = 4.8 % 0.0-0.4 H IG%) [id number] 05:41:00 Test Item Value Reference Range Interpretation Comments Magnesium (test code = MG) 2.0 mg/dl 1.6-2.3 [id number] 05:41:00 Test Item Value Reference Range Interpretation [...] 4 - SerumAlbu min)] EGFR if >60 Jamaican (test code mL/min/1.73m\\ = EGFRAA) S\\2 EGFR if Non- >60 Estimate d Glomerular Jamaican (test code mL/min/1.73m\\ Filtrat ion Rate (eGFR) [...] of c hronic kidney failure. LACTIC ACID [id number] 06:43:00 Test Item Value Reference Range Interpretation Comments LACTATE (test code = LAC) 0.9 mmol/l 0.7-2.0 GLYCOSALATED [id number] 05:41:00 Test Item Value Reference Range Interpretation Comments Hemoglobin A1C (test 9.06 % 4.3-6.0 A code = GLYCO) Mean Plasma Glucose 245 mg/dl 90-180 WHEN BONIFACIO T RESULTS FOR (test code = MPG) A1C EXCEED 14.0, THE LINEAR LIMIT OF THE INSTRUMENT, THE CALCULATED RESU LT FOR THE MEAN GLUCOS E IS NOT RELIABLE. CORONARY [id number] 05:09:00 Test Item Value Reference Range Interpretation [...] (test code = 37 mg/dl 30-60 VLDL) [id number] 04:51:00 Test Item Value Reference Range Interpretation Comments Magnesium (test code = MG) 2.1 mg/dl 1.6-2.3 [id number] 04:51:00 Test Item Value Reference Range Interpretation Comments CPK (test code = CPK) 93 U/L 30-135 LIPASE, [id number] 04:43:00 Test Item Value Reference Range Interpretation Comments Lipase (test code = LIPA) 116 U/L 8-223 [id number] 04:43:00 Test Item Value Reference Range Interpretation [...] 4 - SerumAlbu min)] EGFR if >60 Jamaican (test code mL/min/1.73m\\ = EGFRAA) S\\2 EGFR if Non- >60 Estimate d Glomerular Jamaican (test code mL/min/1.73m\\ Filtrat ion Rate (eGFR) [...]
[2019-11-02] MEDS ORDERED: MORPHINE 4 MG/ML SYR ONE (03:02)
[2019-11-02] MEDS ORDERED: ONDANSETRON 4 MG/2 ML VIAL ONE (03:02)
[2019-11-02 03:41] LABS: Absolute Lymphocytes (CBC) 0.9 K/uL (0.7-4.9); Basophils % 0.6 % (0-1.3); Hematocrit 36.2 % (39.6-49.0); Lymphocytes % 7.3 % (15.3-44.8); MPV 8.2 fL (7.6-11.3); RBC Red Blood Cell Count 4.45 M/uL (4.33-5.43)
[2019-11-02 03:47] LABS: Potassium 4.8 mmol/L (3.5-5.1)
[2019-11-02] MEDS ORDERED: SMZ./TMP. 800/160 MG TABLET ONE (04:54)
--- NOTE | 2019-11-02 04:54 | EDPHYS ---
Physician Documentation [facility] Name: Nicola Harvey Age: 54 yrs Sex: Male : 1965 Arrival Date: 11/02/2019 Time: 02:25 Bed 14 Private MD: ED Physician Jhonathan Nieves HPI: 11/01 03:09 This 54 yrs old Male presents to ER via Ambulatory with complaints of Leg Pain.mh7 03:09 The patient presents with pain, that is acute. The complaints affect the right leg. mh7 Context: The problem was sustained at home, resulted from an unknown cause, the patient can fully bear weight, the patient is able to ambulate, with mild difficulty. Onset: The symptoms/episode began/occurred last night. Modifying factors: The symptoms are alleviated by nothing. the symptoms are aggravated by movement. 03:11 Associated signs and symptoms: Pertinent negatives fever, nausea, numbness, rash, mh7 swelling, tingling, vomiting, warmth, weakness. Treatment prior to arrival includes: over the counter medications, NSAIDS. Severity of symptoms: At their worst the symptoms were moderate, earlier today, in the emergency department the symptoms have improved, moderately. The patient has experienced similar episodes in the past, a few times. 04:45 The patient presents with. mh7 Historical: - Allergies: 02:41 Invokana; tl1 02:41 Jardiance; tl1 - Home Meds: 02:41 amlodipine 5 mg tab 1 tab once daily [Active]; Bydureon subcutaneous [Active]; tl1 glimepiride 4 mg Oral tab 1 tab BID [Active]; Humulin R 100 unit/mL soln [Active]; lisinopril 40 mg Oral tab 1 tab once daily [Active]; metformin 1,000 mg Oral tab 1 tab 2 times per day [Active]; Metoprolol Tartrate Oral [Active]; terazosin Oral [Active]; - PMHx: 02:41 Diabetes - IDDM; Hyperlipidemia; Hypertension; lower back pain with injecitons; Obesity;tl1 - PSHx: 02:41 I \T\ D; tl1 - Immunization history:: Adult Immunizations up to date, Adult Immunizations up to date. - Social history:: Smoking status: Patient denies any tobacco usage or history of. Smoking status: Patient denies any tobacco usage or history of. ROS: 03:11 Constitutional: Negative for fever, chills, and weight loss, Eyes: Negative for injury, mh7 pain, redness, and discharge, ENT: Negative for injury, pain, and discharge, Neck: Negative for injury, pain, and swelling, Cardiovascular: Negative for chest pain, palpitations, and edema, Respiratory: Negative for shortness of breath, cough, wheezing, and pleuritic chest pain, Abdomen/GI: Negative for abdominal pain, nausea, vomiting, diarrhea, and constipation, Back: Negative for injury and pain, : Negative for injury, bleeding, discharge, and swelling, Neuro: Negative for headache, weakness, numbness, tingling, and seizure, Psych: Negative for depression, anxiety, suicide ideation, homicidal ideation, and hallucinations, Allergy/Immunology: Negative for hives, rash, and allergies, Endocrine: Negative for neck swelling, polydipsia, polyuria, polyphagia, and marked weight changes, Hematologic/Lymphatic: Negative for swollen nodes, abnormal bleeding, and unusual bruising. 04:45 MS/extremity: Positive for erythema, pain, tenderness, warmth, Negative for injury or mh7 acute deformity, abrasion, bite, contusion, decreased range of motion, deformity, ecchymosis, laceration, paresthesias, puncture, rash, tingling. 04:45 Skin: Positive for cellulitis, erythema, of the right leg, mild. Exam: 04:48 Constitutional: This is a well developed, well nourished patient who is awake, alert, mh7 and in no acute distress. Head/Face: Normocephalic, atraumatic. Eyes: Pupils equal round and reactive to light, extra-ocular motions intact. Lids and lashes normal. Conjunctiva and sclera are non-icteric and not injected. Cornea within normal limits. Periorbital areas with no swelling, redness, or edema. Neck: Trachea midline, no thyromegaly or masses palpated, and no cervical lymphadenopathy. Supple, full range of motion without nuchal rigidity, or vertebral point tenderness. No Meningismus. Chest/axilla: Normal chest wall appearance and motion. Nontender with no deformity. No lesions are appreciated. Cardiovascular: Regular rate and rhythm with a normal S1 and S2. No gallops, murmurs, or rubs. Normal PMI, no JVD. No pulse deficits. Respiratory: Lungs have equal breath sounds bilaterally, clear to auscultation and percussion. No rales, rhonchi or wheezes noted. No increased work of breathing, no retractions or nasal flaring. Abdomen/GI: Soft, non-tender, with normal bowel sounds. No distension or tympany. No guarding or rebound. No evidence of tenderness throughout. Back: No spinal tenderness. No costovertebral tenderness. Full range of motion. 04:48 Neuro: Awake and alert, GCS 15, oriented to person, place, time, and situation. Cranial nerves II-XII grossly intact. Motor strength 5/5 in all extremities. Sensory grossly intact. Cerebellar exam normal. Normal gait. Psych: Awake, alert, with orientation to person, place and time. Behavior, mood, and affect are within normal limits. 04:48 Musculoskeletal/extremity: Extremities: noted in the right leg: erythema, pain, tenderness, ROM: intact in all extremities, Circulation is intact in all extremities. Pulses: are normal with no appreciated deficits, Perfusion: the patient is normally perfused throughout, Perfusion: the extremity is normally perfused throughout, Calf tenderness, that is mild, Edema, is not appreciated, Sensation intact. Compartment Syndrome exam of affected extremity: is normal. no numbness, no tingling, no sensation deficit, no palor, no weak pulses, Joints: All joints appear normal with full range of motion. Weight bearing: able to fully bear weight, without difficulty, Tendon exam: specific tendon testing normal through active and passive range of motion DVT Exam: no swelling, negative Homans' sign noted on exam, no appreciated bluish discoloration, tenderness, that is mild, erythema, that is mild, of the right leg, Calves: have equal circumference, are tender, on right. 04:48 Skin: cellulitis, that is mild, on the right leg. Vital Signs: 02:41 BP 157 / 96; Pulse 94; Resp 19; Temp 98.8; Pulse Ox 97% on R/A; Weight 158.76 kg; tl1 Height 5 ft. 9 in. (175.26 cm); Pain 8/10; 04:06 BP 128 / 60; Pulse 95; Resp 18; Pulse Ox 99% on R/A; ea 02:41 Body Mass Index 51.69 (158.76 kg, 175.26 cm) tl1 MDM: 02:42 Patient medically screened. [facility] 04:48 Differential diagnosis: contusion, cellulitis, DVT. Data reviewed: vital signs, nurses [facility] notes, old medical records, lab test result(s), CBC, electrolytes, urinalysis, radiologic studies, ultrasound. Counseling: I had a detailed discussion with the patient and/or guardian regarding: the historical points, exam findings, and any diagnostic results supporting the discharge/admit diagnosis, lab results, radiology results. Refusal of service: The patient/guardian displays adequate decision making capability and despite a detailed discussion of alternatives, benefits, risks, and consequences refuses: Admission to the hospital for further work-up and treatment, IV antibiotics. 05:37 Data interpreted: manager monitoring: rate is 95 beats/min, rhythm is normal sinus rhythm, [facility] regular, Interpretation: normal rate, normal rhythm, Pulse oximetry: on room air is 99 %. Interpretation: normal. 11/01 02:51 Order name: CBC with Diff [facility] 11/01 02:51 Order name: Basic Metabolic Panel; Complete Time: 04:15 [facility] 11/01 02:53 Order name: US Extremity Venous Unilateral Ltd [facility] 11/01 03:45 Order name: Manual Differential [facility] 11/01 04:31 Order name: Blood Culture Adult (2) [facility] 11/01 02:51 Order name: Saline Lock; Complete Time: 02:59 [facility] Administered Medications: 02:59 Drug: morphine 4 mg Route: IVP; Site: right antecubital; mg2 04:50 Follow up: Response: No adverse reaction; Pain is decreased; RASS: Alert and Calm (0) ea 02:59 Drug: Zofran (Ondansetron) 4 mg Route: IVP; Site: right antecubital; mg2 04:50 Follow up: Response: No adverse reaction ea 04:49 Drug: Bactrim (160 mg-800 mg (DS) 1 tablet Route: PO; ea 05:06 Follow up: Response: Medication administered at discharge. ea 04:49 Drug: KeFLEX 500 mg Route: PO; ea 05:07 Follow up: Response: Medication administered at discharge. ea Disposition: 11/02/19 04:53 Discharged to Home. Impression: Cellulitis Right Leg. - Condition is Stable. - Discharge Instructions: Cellulitis, Adult, [id number]. - Prescriptions for Keflex 500 mg Oral Capsule - take 1 capsule by ORAL route every 6 hours for 10 days; 40 capsule. Bactrim DS 800- 160 mg Oral Tablet - take 1 tablet by ORAL route every 12 hours for 10 days; 20 tablet. - Work release form, Medication Reconciliation Form, Thank You Letter, Antibiotic Education, Prescription Opioid Use form. - Follow up: Private Physician; When: 1 - 2 days; Reason: Worsening of condition, Recheck today's complaints, Re-evaluation by your physician. Follow up: Latoya Mcknight MD; When: Tomorrow; Reason: Worsening of condition, Recheck today's complaints, Re-evaluation by your physician. - Problem is an acute exacerbation. - Symptoms have improved. Signatures: Dispatcher [employer] EDMS Jo Olmstead RN RN tl1 Penny Akers RN RN ea Gardose, Michele, RN RN mg2 Jhonathan Nieves MD MD mh7 Corrections: (The following items were deleted from the chart) 05:06 04:53 11/02/2019 04:53 Discharged to Home. Impression: Cellulitis Right Leg. Condition ea is Stable. Forms are Medication Reconciliation Form, Thank You Letter, Antibiotic Education, Prescription Opioid Use. Follow up: Private Physician; When: 1 - 2 days; Reason: Worsening of condition, Recheck today's complaints, Re-evaluation by your physician. Follow up: Latoya Mcknight; When: Tomorrow; Reason: Worsening of condition, Recheck today's complaints, Re-evaluation by your physician. Problem is an acute exacerbation. Symptoms have improved. mh7
--- NOTE | 2019-11-02 04:54 | ER ---
Nurse's Notes [facility] Name: Nicola Harvey Age: 54 yrs Sex: Male : 1965 Arrival Date: 11/02/2019 Time: 02:25 Bed 14 Private MD: Diagnosis: Cellulitis Right Leg Presentation: 11/01 02:38 Chief complaint: Patient states: I think I have an infection in my lower leg. I get tl1 cellulitis in my leg often. Coronavirus screen: Proceed with normal triage. Patient denies a cough. Patient denies shortness of breath or difficulty breathing. Patient denies measured and/or subjective temperature greater than 100.4F prior to today's visit. Patient denies travel on a cruise ship or to a country the [facility] currently lists as an affected area. Patient denies contact with known and/or suspected case of COVID-19. Ebola Screen: Patient negative for fever greater than or equal to 101.5 degrees Fahrenheit, and additional compatible Ebola Virus Disease symptoms Patient denies exposure to infectious person. Patient denies travel to an Ebola-affected area in the 21 days before illness onset. Initial Sepsis Screen: Does the patient meet any 2 criteria? No. Patient's initial sepsis screen is negative. Does the patient have a suspected source of infection? No. Patient's initial sepsis screen is negative. Risk Assessment: Do you want to hurt yourself or someone else? Patient reports no desire to harm self or others. Onset of symptoms was November 01, 2019. 02:38 Method Of Arrival: Ambulatory tl1 02:38 Acuity: ANGE 3 tl1 Historical: - Allergies: 02:41 Invokana; tl1 02:41 Jardiance; tl1 - Home Meds: 02:41 amlodipine 5 mg tab 1 tab once daily [Active]; Bydureon subcutaneous [Active]; tl1 glimepiride 4 mg Oral tab 1 tab BID [Active]; Humulin R 100 unit/mL soln [Active]; lisinopril 40 mg Oral tab 1 tab once daily [Active]; metformin 1,000 mg Oral tab 1 tab 2 times per day [Active]; Metoprolol Tartrate Oral [Active]; terazosin Oral [Active]; - PMHx: 02:41 Diabetes - IDDM; Hyperlipidemia; Hypertension; lower back pain with injecitons; Obesity;tl1 - PSHx: 02:41 I \\T\\ D; tl1 - Immunization history:: Adult Immunizations up to date, Adult Immunizations up to date. - Social history:: Smoking status: Patient denies any tobacco usage or history of. Smoking status: Patient denies any tobacco usage or history of. Screenin:39 Abuse screen: Denies threats or abuse. Nutritional screening: No deficits noted. ea Tuberculosis screening: No symptoms or risk factors identified. Fall Risk None identified. Assessment: 02:43 General: Appears in no apparent distress. Behavior is calm, cooperative, appropriate ea for age. Pain: Complains of pain in right leg. Neuro: Level of Consciousness is awake, alert, obeys commands, Oriented to person, place, time, situation. Cardiovascular: Patient's skin is warm and dry. Respiratory: Airway is patent Respiratory effort is even, unlabored, Respiratory pattern is regular, symmetrical. Derm: edema noted on renato lower extremities. 03:06 Reassessment: Pt taken to ultrasound. ea 04:06 Reassessment: Patient and/or family updated on plan of care and expected duration. Pain ea level reassessed. Patient is alert, oriented x 3, equal unlabored respirations, skin warm/dry/pink. 04:30 Reassessment: Pt verbalized he did not want to be admitted to the hospital. States " I ea rather go home than stay, I really want to see Dr. Mcknight". 04:50 Reassessment: Patient and/or family updated on plan of care and expected duration. Pain ea level reassessed. Patient is alert, oriented x 3, equal unlabored respirations, skin warm/dry/pink. 05:02 Reassessment: Patient and/or family updated on plan of care and expected duration. Pain ea level reassessed. Patient is alert, oriented x 3, equal unlabored respirations, skin warm/dry/pink. Discharge instruction given to patient, verbalized the understanding of instruction. Vital Signs: 02:41 BP 157 / 96; Pulse 94; Resp 19; Temp 98.8; Pulse Ox 97% on R/A; Weight 158.76 kg; tl1 Height 5 ft. 9 in. (175.26 cm); Pain 8/10; 04:06 BP 128 / 60; Pulse 95; Resp 18; Pulse Ox 99% on R/A; ea 02:41 Body Mass Index 51.69 (158.76 kg, 175.26 cm) tl1 ED Course: 02:25 Patient arrived in ED. ds1 02:33 Jhonathan Nieves MD is Attending Physician. mh7 02:39 Triage completed. tl1 02:39 Penny Akers, RN is Primary Nurse. ea 02:40 Patient has correct armband on for positive identification. Bed in low position. Call ea light in reach. 02:40 Arm band placed on right wrist. Patient placed in an exam room, on a stretcher, on ea pulse oximetry. 02:58 Inserted saline lock: 20 gauge in right antecubital area, using aseptic technique. mg2 Blood collected. 03:00 No provider procedures requiring assistance completed. mg2 04:52 Latoya Mcknight MD is Referral Physician. 7 05:00 IV discontinued, intact, bleeding controlled, No redness/swelling at site. Pressure ea dressing applied. 07:05 US Extremity Venous Unilateral Ltd In Process Unspecified. EDMS Administered Medications: 02:59 Drug: morphine 4 mg Route: IVP; Site: right antecubital; mg2 04:50 Follow up: Response: No adverse reaction; Pain is decreased; RASS: Alert and Calm (0) ea 02:59 Drug: Zofran (Ondansetron) 4 mg Route: IVP; Site: right antecubital; mg2 04:50 Follow up: Response: No adverse reaction ea 04:49 Drug: Bactrim (160 mg-800 mg (DS) 1 tablet Route: PO; ea 05:06 Follow up: Response: Medication administered at discharge. ea 04:49 Drug: KeFLEX 500 mg Route: PO; ea 05:07 Follow up: Response: Medication administered at discharge. ea Outcome: 04:53 Discharge ordered by . 7 05:05 Discharged to home ambulatory. ea 05:05 Condition: stable 05:05 Discharge instructions given to patient, Instructed on discharge instructions, follow up and referral plans. medication usage, Demonstrated understanding of instructions, follow-up care, medications, Prescriptions given X 2. 05:06 Patient left the ED. ea Signatures: Dispatcher [employer] EDPR Estephania Reveles ds1 Jo Olmstead RN RN tl1 Penny Akers RN RN ea Gardose, Michele, RN RN mg2 Jhonathan Nieves MD MD mh7 Corrections: (The following items were deleted from the chart) 05:04 04:50 Reassessment: Patient and/or family updated on plan of care and expected ea duration. Pain level reassessed. Patient is alert, oriented x 3, equal unlabored respirations, skin warm/dry/pink. ea
[2019-11-02] MEDS ORDERED: CEPHALEXIN 250 MG CAP ONE (04:55)
[2019-11-02 05:00] LABS: Blood Morphology Comment NOT SEEN (NOT SEEN); Platelet Estimate ADEQ
[2019-11-02 05:17] VITALS: TEMP 98.8
[2019-11-02 05:18] VITALS: BP 128/60; O2SAT 99
--- NOTE | 2019-11-02 07:34 | RAD REPORT ---
[facility] 7[facility]03 am CLINICAL HISTORY: Right leg pain COMPARISON: July 2019 FINDINGS: Right common femoral, superficial femoral, popliteal veins are compressible and demonstrat e augmentation. Doppler demonstrates good flow. Limited evaluation of right posterior tibial vein secondary to edema and body habitus IMPRESSION: No evidence of deep venous thrombosis involving the right lower extremity.
== END 2019-11-02 05:06 | disposition home or self-care (01) ==
LOC: ER 02:24
DX: L03.115 Cellulitis of right lower limb (principal); I10 Essential (primary) hypertension; E11.9 Type 2 diabetes mellitus without complications; E78.5 Hyperlipidemia, unspecified; Z79.4 Long term (current) use of insulin; Z88.8 Allergy status to other drugs, medicaments and biological substances
CPT/HCPCS: 87040 ×2; 85025; 80048; 36415; 93971; 96375; 96374; 99284; J2405

== ENCOUNTER 2019-11-16 14:49 | Emergency (ER) | payer BC, OTHER, SELFPAY ==
--- NOTE | 2019-11-16 15:57 | RAD REPORT ---
EXAM DESCRIPTION: RAD - Hand Right 3 View - 11/16/2019 3:42 pm CLINICAL HISTORY: Right hand pain status post injury FINDINGS: No fracture or dislocation is seen.
--- NOTE | 2019-11-16 16:28 | EDPHYS ---
Physician Documentation [facility] Name: Nicola Harvey Age: 54 yrs Sex: Male : 1965 Arrival Date: 11/16/2019 Time: 14:53 Bed 30 Private MD: Latoya Mcknight C ED Physician Asael Bernal HPI: 11/15 15:54 This 54 yrs old Male presents to ER via Ambulatory with complaints of Finger jmm Injury. 15:54 The patient or guardian reports injury, pain. Onset: The symptoms/episode jmm began/occurred acutely, last night. Modifying factors: The symptoms are alleviated by nothing, the symptoms are aggravated by movement. Associated signs and symptoms: Pertinent negatives: decreased sensation distally, numbness distally, tingling distally. This is a 54 year old male with a history of htn, dm, that presents to the ED with complaints of right 4th finger pain which occurred after slamming his finger last night while waking up. Patient unsure of the exact mechanism. Denies other known injury. . Historical: - Allergies: 14:59 Invokana; ca1 14:59 Jardiance; ca1 - Home Meds: 14:59 amlodipine 5 mg tab 1 tab once daily [Active]; glimepiride 4 mg Oral tab 1 tab BID ca1 [Active]; Humulin R 100 unit/mL soln [Active]; Bydureon subcutaneous [Active]; lisinopril 40 mg Oral tab 1 tab once daily [Active]; metformin 1,000 mg Oral tab 1 tab 2 times per day [Active]; Metoprolol Tartrate Oral [Active]; - PMHx: 14:59 Diabetes - IDDM; Hypertension; lower back pain with injecitons; Obesity; Hyperlipidemia;ca1 - PSHx: 14:59 I \T\ D; ca1 - Immunization history:: Adult Immunizations up to date. - Social history:: Smoking status: Patient denies any tobacco usage or history of. ROS: 15:54 Constitutional: Negative for fever, chills, and weight loss, Cardiovascular: Negative jmm for chest pain, palpitations, and edema, Respiratory: Negative for shortness of breath, cough, wheezing, and pleuritic chest pain. 15:54 MS/extremity: Positive for injury or acute deformity, pain. 15:54 All other systems are negative. Exam: 15:54 Constitutional: This is a well developed, well nourished patient who is awake, alert, jmm and in no acute distress. Head/Face: atraumatic. Eyes: EOMI, no conjunctival erythema appreciated ENT: Moist Mucus Membranes Neck: Trachea midline, Supple Chest/axilla: Normal chest wall appearance and motion. Cardiovascular: Regular rate and rhythm. No edema appreciated Respiratory: Normal respirations, no respiratory distress appreciated Abdomen/GI: Non distended, soft Back: Normal ROM Skin: General appearance color normal 15:54 Musculoskeletal/extremity: pain noted to the right 4th finger on palpation, < 2 sec dist cap refil, pain noted on ROM of the pip and dip. 15:54 Skin: Appearance: Color: normal in color. 15:54 Neuro: Orientation: is normal, Mentation: is normal, Memory: is normal. Vital Signs: 14:56 BP 165 / 72; Pulse 74; Resp 16 S; Temp 97.4(TE); Pulse Ox 100% on R/A; Weight 156.49 kg ca1 (R); Height 5 ft. 9 in. (175.26 cm) (R); Pain 7/10; 14:56 Body Mass Index 50.95 (156.49 kg, 175.26 cm) ca1 MDM: 15:52 Patient medically screened. [facility] 16:25 Data reviewed: vital signs, nurses notes. Counseling: I had a detailed discussion with patricia the patient and/or guardian regarding: the historical points, exam findings, and any diagnostic results supporting the discharge/admit diagnosis, the need for outpatient follow up, to return to the emergency department if symptoms worsen or persist or if there are any questions or concerns that arise at home. ED course: xray is negative. bernardino tape splint a applied. patient is advised to follow up with pcp if pain continues after 1 week. Patient is otherwise given strict return precautions. Patient understood and agrees with the plan of care. . 11/15 15:01 Order name: Hand Right 3 View XRAY; Complete Time: 16:00 ca1 11/15 16:00 Order name: Misc. Order: bernardino tape; Complete Time: 16:20 [facility] Administered Medications: No medications were administered Disposition: 19:08 Co-signature as Attending Physician, Asael Bernal MD. rn Disposition: 11/16/19 16:27 Discharged to Home. Impression: Other sprain of right ring finger. - Condition is Stable. - Discharge Instructions: Finger Sprain, Adult. - Medication Reconciliation Form, Thank You Letter, Antibiotic Education, Prescription Opioid Use form. - Follow up: Private Physician; When: 2 - 3 days; Reason: Recheck today's complaints, Continuance of care, Re-evaluation by your physician. Signatures: Dispatcher [employer] EDMS Surinder Monroe PA PA jmm Williams, Irene, RN RN iw Asael Bernal MD MD rn Acob, KRUNAL Smalls RN ca1 Corrections: (The following items were deleted from the chart) 17:04 16:27 11/16/2019 16:27 Discharged to Home. Impression: Other sprain of right ring iw finger. Condition is Stable. Forms are Medication Reconciliation Form, Thank You Letter, Antibiotic Education, Prescription Opioid Use. Follow up: Private Physician; When: 2 - 3 days; Reason: Recheck today's complaints, Continuance of care, Re-evaluation by your physician. patricia
--- NOTE | 2019-11-16 16:28 | ER ---
Nurse's Notes [facility] Name: Nicola Harvey Age: 54 yrs Sex: Male : 1965 Arrival Date: 11/16/2019 Time: 14:53 Bed 30 Private MD: Latoya Mcknight C Diagnosis: Other sprain of right ring finger Presentation: 11/15 14:56 Chief complaint: Patient states: Last night, Fell off my bed and fell on my R side. ca1 Pain on the 3rd and 5th digit of R hand. Coronavirus screen: Proceed with normal triage. Patient denies a cough. Patient denies shortness of breath or difficulty breathing. Patient denies measured and/or subjective temperature greater than 100.4F prior to today's visit. Patient denies travel on a cruise ship or to a country the [facility] currently lists as an affected area. Patient denies contact with known and/or suspected case of COVID-19. Ebola Screen: Patient negative for fever greater than or equal to 101.5 degrees Fahrenheit, and additional compatible Ebola Virus Disease symptoms Patient denies exposure to infectious person. Patient denies travel to an Ebola-affected area in the 21 days before illness onset. No symptoms or risks identified at this time. Initial Sepsis Screen: Does the patient meet any 2 criteria? No. Patient's initial sepsis screen is negative. Does the patient have a suspected source of infection? No. Patient's initial sepsis screen is negative. Risk Assessment: Do you want to hurt yourself or someone else? Patient reports no desire to harm self or others. Onset of symptoms was November 16, 2019. 14:56 Method Of Arrival: Ambulatory ca1 14:56 Acuity: ANGE 4 ca1 Historical: - Allergies: 14:59 Invokana; ca1 14:59 Jardiance; ca1 - Home Meds: 14:59 amlodipine 5 mg tab 1 tab once daily [Active]; glimepiride 4 mg Oral tab 1 tab BID ca1 [Active]; Humulin R 100 unit/mL soln [Active]; Bydureon subcutaneous [Active]; lisinopril 40 mg Oral tab 1 tab once daily [Active]; metformin 1,000 mg Oral tab 1 tab 2 times per day [Active]; Metoprolol Tartrate Oral [Active]; - PMHx: 14:59 Diabetes - IDDM; Hypertension; lower back pain with injecitons; Obesity; Hyperlipidemia;ca1 - PSHx: 14:59 I \T\ D; ca1 - Immunization history:: Adult Immunizations up to date. - Social history:: Smoking status: Patient denies any tobacco usage or history of. Vital Signs: 14:56 BP 165 / 72; Pulse 74; Resp 16 S; Temp 97.4(TE); Pulse Ox 100% on R/A; Weight 156.49 kg ca1 (R); Height 5 ft. 9 in. (175.26 cm) (R); Pain 7/10; 14:56 Body Mass Index 50.95 (156.49 kg, 175.26 cm) ca1 ED Course: 14:53 Patient arrived in ED. mr 14:53 Latoya Mcknight MD is Private Physician. mr 14:58 Triage completed. ca1 14:59 Arm band placed on right wrist. ca1 15:43 Hand Right 3 View XRAY In Process Unspecified. EDMS 15:52 Surinder Monroe PA is PHCP. [facility] 15:52 Asael Bernal MD is Attending Physician. [facility] 16:08 Janay Watts, RN is Primary Nurse. iw 16:20 Jonathan tape right hand. em1 Administered Medications: No medications were administered Outcome: 16:27 Discharge ordered by . [facility] 17:04 Patient left the ED. iw Signatures: Dispatcher [employer] EDMS Surinder Monroe PA PA jmm Rivera, Mary mr Janay Watts, RN Modesto Flores em1 Serina Castaneda RN RN ca1
--- OUTSIDE RECORDS SUMMARY | 2019-11-16 16:50 | XMS REPORT | Continuity of Care Document ---
:1965 Author Organization [facility] Care Team Providers Name Role Phone [facility] Unavailable Un available Problems Problem Status Onset Classification Date Comments Sourc e Date Reported LUMBAR STENOSIS Active [address] M54.[address] Abdominal pain Resolved Problem 12/07/2017 [facility] Chest pain (finding) Resolved Problem 12/07/2017 [facility] Chronic back pain Resolved Problem 12/07/2017 [facility] (disorder) [facility] Diabetes mellitus Active Problem 12/07/2017 [facility] (disorder[facility] Hypercholesterolemia Active Problem 12/07/2017 [facility] (disorder[facility] Hypertensive disorder, Active Problem 12/07/2017 [facility] systemic arterial Ne uro, (disorder) [facility] Morbid obesity Active Problem 12/07/2017 [facility]disorder[facility] 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 Neuro, (disorder) [facility] Medications Medication Details Route Status Patient Ordering Order Source Instructions Provider Date amitriptyline 10 10 mg = 1 Active [facility] er mg oral tablet tab, PO, 017 Neuro Bedtime, 4 tabs at bedtime for 1 week then 5 tabs at bedtime thereafter , # 150 tab, 2 Refill(s), Pharmacy: [id number] diclofenac sodium 75 mg = 1 Active Misc her 75 mg oral enteric tab, PO, 017 Neur o coated, BID, PRN delayed-release Pain Score tablet 7-10, # 60 tab, 2 Refill(s), Pharmacy: [facility] Cyclobenzaprine 10 mg = 1 Active Mische r hydrochloride 10 tab, PO, 017 Neuro MG Oral Tablet BID, # 60 [Flexeril] tab, 2 Refill(s), Pharmacy: [id number] Sodium Chloride 4.2 mL, Inactive [facility] Route: 017 Neuro EPIDURAL, Dosing Weight 141.364, kg, ONCE, (Preservat liliana Free), Start date: 04/25/17 8:50:00 [facility], Stop date: 04/25/17 8:50:00 [facility] Lidocaine 3 mL, Inactive [facility] Hydrochloride 10 Route: 017 Neuro MG/ML Injectable SUB-Q, Solution Dosing Weight 141.364, kg, ONCE, (Preservat liliana Free), Start date: 04/25/17 8:50:00 [facility], Stop date: 04/25/17 8:50:00 [facility] Omnipaque 300 2 mL, Inactive [facility] Route: 017 Neuro EPIDURAL, Dosing Weight 141.364, kg, ONCE, (Preservat liliana Free), Start date: 04/25/17 8:50:00 [facility], Stop date: 04/25/17 8:50:00 [facility] Dexamethasone 8 mg, Inactive [facility] Route: 017 Neuro EPIDURAL, ONCE, Dosing Weight 141.364, kg, (Preservat liliana Free), Start date: 04/25/17 8:50:00 [facility], Stop date: 04/25/17 8:50:00 [facility] Bupivacaine 2 mL, Inactive [facility] Hydrochloride 2.5 Route: 017 Neuro MG/ML Injectable EPIDURAL, Solution Dosing Weight 141.364, kg, ONCE, (Preservat liliana Free), Start date: 04/25/17 8:50:00 [facility], Stop date: 04/25/17 8:50:00 [facility] Allergies, Adverse Reactions, Alerts No Known Medication Allergies Immunizations No Data Provided for This Section Results Order Name Results Value Reference Date Interpretation Comments Danica r[facility] Range HEMATOLOGY PTT 29.4 22.9 - 35.[address] HEMATOLOGY PT 12.8 12.0 - 14.[address] HEMATOLOGY INR 0.96 0.85 - 1.[address] CHEM PANEL eGFR [address] [address] Comment: The Medical eGFR is Center calculated [...] CHEM PANEL Creatinine 0.92 0.50 - 1.40 04/[address] CHEM PANEL BUN 21 7 - 22 04/[address] HEMATOLOGY MCV 84.7 80.0 - 94.0 04/[address] HEMATOLOGY Hct 41.3 42.0 - 54.0 04/[address] HEMATOLOGY MCH 27.9 27.0 - 31.0 04/[address] HEMATOLOGY MCHC 32.9 32.0 - 36.0 04/[address] HEMATOLOGY WBC 7.2 3.7 - 10.4 04/[address] HEMATOLOGY RBC 4.87 4.70 - 6.10 04/[address] HEMATOLOGY Hgb 13.6 14.0 - 18.[address] HEMATOLOGY RDW 16.1 11.5 - 14.5 04/[address] HEMATOLOGY Platelet 239 133 - 450 04/[address] HEMATOLOGY MPV 8.0 7.4 - 10.4 04/[address] Pathology Reports No Data Provided for This Section Diagnostic Reports Report Value Date Source Spine thoracic EXAM: CT MYELOGRAM [facility] [facility] CT MYELOGRAM THORACIC SPINE [...] myelogram EXAM: CT MYELOGRAM LUMBAR SPINE 7 [facility] CT EXAM: CT MYELOGRAM THORACIC SPINE Center [...] myelogram EXAM: CT MYELOGRAM LUMBAR SPINE 7 [facility] EXAM: CT MYELOGRAM THORACIC SPINE Center EXAM: [...] thoracic EXAM: CT MYELOGRAM LUMBAR SPINE 04/29/2017 [facility] Medical myelogram DX EXAM: CT MYELOGRAM [...] EXAM: XR ENTIRE SPINE 2 VIEWS 03/19/2017 [facility] 6+ Views DX DATE: 03/19/2017 10:49 AM [...] Date Comments Source Height 177.8 cm 06/05/2017 [facility] Neuro Weight 146.818 06/05/2017 [facility] BMI Calculated 46.44 06/05/2017 [facility] Neuro Systolic (mm Hg) 130 06/05/2017 [facility] Jaxson ro Diastolic (mm Hg) 83 06/05/2017 [facility] Ne uro Temperature Oral (F) 99.3 F 06/05/2017 [facility] Neuro Heart Rate 70 06/05/2017 [facility] BMI Calculated 44.72 04/29/2017 [facility] Center Weight 141.36 04/29/2017 [facility] Height 177.8 cm 04/29/2017 [facility] Heart Rate 66 04/29/2017 [facility] Respitory Rate 20 04/29/2017 [facility] Systolic (mm Hg) 140 04/29/2017 [facility] Diastolic (mm Hg) 73 04/29/2017 [facility] Encounters Location Location Encounter Encounter Reason Attending ADM CA Stat us Source Details Type Number For Provider Date Date Visit Outpatient [id number] VIOLA 08/[address] [facility] JARED Dora Outpatient [id number] MANJINDER KOWALSKI 09/04 Act [facility] Out[facility] [id number] MANJINDER KOWALSKI 03/19 [facility] Outpatient [id number] CONY 03/19 [facility] Outpatient [id number] Manjinder Kowalski 03/19 03/20 [facility] Outpatient [id number] DULCE THOMPSONN 04/04 Act [facility]NA Spine Phone [id number] 04/24 04/26 [facility] Message /2016 [facility]NA Spine Phone [id number] 04/24 04/26 [facility] Message /2016 Neuro [facility] Outpatient [id number] CONY 04/25 [facility] MNA Spine Outpatient [id number] Harjeet 04/25 04/26 [facility] Neuro [facility] Outpatient [id number] Dulce Lau 04/29 04/30 [facility] MNA Spine Phone [id number] 04/30 05/02 [facility] Message /2016 Neuro [facility] Outpatient [id number] DULCE LAU 06/05 [facility] Spine Outpatient [id number] Harjeet 06/05 06/06 [facility] MNA Spine Phone [id number] 06/06 06/08 [facility] Message /2017 Neuro [facility] Outpatient [id number] DULCE LAU 12/04 [facility]ora MNA Spine Ambulatory [id number] Harjeet 12/04 12/04 [facility] Pre-Reg Neuro [facility] Procedures Procedure Code Date Perfomer Comments Source Myelography via [id number] 04/29/2017 [facility]; thoracic Myelography via [id number] 04/29/2017 [facility] lumbar [facility] radiological supervision and interpretation; lumbosacral NJX INTERLAMINAR 04/25/2017 [facility] Neuro LMBR/SA Ear operations [id number] [facility] [id number] [facility] Lumbar epidural [id number] [facility] steroid injection Neuro,[facility] Nose operation [id number] [facility] Operation [id number] [facility] Assessment and Plan No Data Provided for This Section Plan of Care No Data Provided for This Section Social History Social History Date Source Social History TypeResponse 06/05/2017 [facility] Smoking Status Former smoker; Type: Cigarettes; Exposur e to Tobacco Smoke None; Cigarette Smoking Last 365 Days No; Reg Smoking Cessation Counseling No entered on: 06/05/17 Social History TypeResponse 04/29/2017 [facility] Smoking Status Former smoker; Type: Cigarettes; Exposur e to Tobacco Smoke None; Cigarette Smoking Last 365 Days No; Reg Smoking Cessation Counseling No Family History No Data Provided for This Section Advance Directives No Data Provided for This Section Functional Status No Data Provided for This Section
--- OUTSIDE RECORDS SUMMARY | 2019-11-16 16:52 | XMS REPORT | Continuity of Care Document ---
:1965 Author Organization [facility] t Address [address] [place] [address] Care Team Providers Name Role Phone Anupam Atkins MD Attending Clinician Doctor Unassigned, [place] Attending Clinician Unavailable Rody Lau Attending Clinician Joey Jesus Attending Clinician Vandana Kowalski Attending Clinician TARAPASADE Attending Clinician Unavailable BUSUEGO Attending Clinician Unavailable TARAPASADE Admitting Clinician Unavailable BUSUEGO Admitting Clinician Unavailable Problems Condition Condition Condition Status Onset Resolution Last Treating Co mments Source Name Details Category Date Date Treatment Clinician Date LUMBAR Diagnosis Active 2016-052017-04-29 Mem oria STENOSIS 1-14 09:02:00 l LUMBAR 00:00: Mitesh STENOSIS 00 Active 04/08/2017 [facility] M54.16 Diagnosis Active 2016-052017-03-19 Mem oria 0-25 10:29:00 l M54.16 00:00: Mitesh 00 Active 03/19/2017 [facility] Abdominal Problem Resolve 2017-12-07 M emoria pain d 00:03:51 l (finding) Mitesh Abdominal pain (finding) Resolved Problem 12/07/2017 [facility] Chest pain Problem Resolve 2017-12-07 Memoria (finding) d 00:03:51 l Chest Mitesh pain (finding) Resolved Problem 12/07/2017 [facility] Chronic Problem Resolve 2017-12-07 Mem oria back pain d 00:03:51 l (disorder) Chronic Her mauricio back pain (disorder) Resolved Problem 12/07/2017 [facility] Diabetes Problem Active 2017-12-07 Mem oria mellitus 00:03:51 l (disorder) Diabetes He rmann mellitus (disorder) Active Problem 12/07/2017 [facility] Hyperchole Problem Active 2017-12-07 M emoria sterolemia 00:03:51 l (disorder) Gabo n Hyperchole sterolemia (disorder) Active Problem 12/07/2017 [facility] Hypertensi Problem Active 2017-12-07 M emoria ve 00:03:51 l disorder, Mitesh systemic Hypertensi arterial ve (disorder) disorder, systemic arterial (disorder) Active Problem 12/07/2017 [facility] Morbid Problem Active 2017-12-07 Memor ia obesity 00:03:51 l (disorder) Morbid Herm chacorta obesity (disorder) Active Problem 12/07/2017 [facility] Prolapsed Problem Active 2017-12-07 Me moria lumbar 00:03:51 l interverte Gabo n bral disc Prolapsed (disorder) lumbar interverte bral disc (disorder) Active Problem 12/07/2017 [facility] Allergies, Adverse Reactions, Alerts This patient has no known allergies or adverse reactions. Social History Smoking Status Start Date Stop Date Source Social History 2017-04-29 16:58:10 2017-04-29 16:58:10 [facility] Medications Ordered Filled Start Stop Current Ordering Indication Dosage Frequency Signature Comments Components Source Medication Medication Date Date Medication? Clinician (SIG) Name Name amitriptyli 2016-05 Yes 10 mg = 1 M emoria ne 10 mg 2-01 tab, PO, l oral tablet 14:52: Bedtime, 4 [place] 00 tabs at bedtime for 1 week then 5 tabs at bedtime thereafter , # 150 tab, 2 [facility]ill(s[id number] diclofenac 2016-05 Yes 75 mg = 1 Me moria sodium 75 2-01 tab, PO, l mg oral 14:52: BID, PRN Gabo n enteric 00 Pain Score coated, 7-10, # 60 delayed-rel tab, 2 ease tablet Refill(s), Pharmacy: [id number] Cyclobenzap 2016- Yes 10 mg = 1 M emojack rine 2-01 tab, PO, l hydrochlori 14:52: BID, # 60 H ermann de 10 MG 00 tab, 2 Oral Tablet Refill(s), [Flexeril] Pharmacy: [id number] Sodium 2016- Yes 4.2 mL, Memoria Chloride 2- Route: l 14:50: EPIDURAL, Mitesh 00 Dosing Weight 141.364, kg, ONCE, (Preservat liliana Free), Start date: 04/25/17 8:50:00 [employer], Stop date: 04/25/17 8:50:00 [employer] Lidocaine 2017- Yes 3 mL, Memoria Hydrochlori 2- Route: l de 10 MG/ML 14:50: SUB-Q, Herm chacorta Injectable 00 Dosing Solution Weight 141.364, kg, ONCE, (Preservat liliana Free), Start date: 04/25/17 8:50:00 [employer]EL[employer], Stop date: 04/25/17 8:50:00 [employer]EL[employer] Omnipaque 2017- Yes 2 mL, Memoria 300 2- Route: l 14:50: EPIDURAL, [place] 00 Dosing Weight 141.364, kg, ONCE, (Preservat liliana Free), Start date: 04/25/17 8:50:00 [employer] DEVELOPER, Stop date: 04/25/17 8:50:00 [employer]ELOPER Dexamethaso 2017- Yes 8 mg, Memor ia ne 2- Route: l 14:50: EPIDURAL, [place] 00 ONCE, Dosing Weight 141.364, kg, (Preservat liliana Free), Start date: 04/25/17 8:50:00 [employer] DEVELOPER, Stop date: 04/25/17 8:50:00 [employer]ELOPER Bupivacaine 2017- Yes 2 mL, Memor ia Hydrochlori 2- Route: l de 2.5 14:50: EPIDURAL, Gabo n MG/ML 00 Dosing Injectable Weight Solution 141.364, kg, ONCE, (Preservat liliana Free), Start date: 04/25/17 8:50:00 [employer] DEVEL[employer], Stop date: 04/25/17 8:50:00 [employer] DEVEL[employer] Vital Signs Vital Name Observation Time Observation Value Comments Source Height 2017-06-05 17:46:00 177.8 cm [facility] Mitesh Weight 2017-06-05 17:46:00 [facility] BMI Calculated 2017-06-05 17:46:00 Memori [facility] [place] Systolic (mm Hg) 2017-06-05 17:46:00 Chuck rial Mitesh Diastolic (mm Hg) 2017-06-05 17:46:00 Mem orial Mitesh Temperature Oral (F) 2017-06-05 17:46:00 99.3 F [facility] [place] Heart Rate 2017-06-05 17:46:00 [facility] [place] BMI Calculated 2017-04-29 15:23:00 Memori al Mitesh Weight 2017-04-29 15:23:00 [facility] Height 2017-04-29 15:23:00 177.8 cm [facility] Heart Rate 2017-04-29 15:00:00 [facility] Respitory Rate 2017-04-29 15:00:00 Memori al [place] Systolic (mm Hg) 2017-04-29 15:00:00 Chuck rial [place] Diastolic (mm Hg) 2017-04-29 15:00:00 Mem orial Mitesh Procedures Procedure Date / Time Performed Performing Clinician [facility] e Myelography via lumbar 2017-04-29 16:14:00 Memor ial Mitesh injection, including radiological supervision and interpretation; thoracic Myelography via lumbar 2017-04-29 16:14:00 Memor ial Mitesh injection, including radiological supervision and interpretation; lumbosacral NJX INTERLAMINAR LMBR/SA 2017-04-25 14:50:00 Mem orial Mitesh Ear operations [facility] Lumbar epidural injection Memori al [place] Lumbar epidural steroid [facility] injection Nose operation [facility] [place] Operation [facility] [place] Encounters Start End Encounter Admission Attending Care Care Encounter Source Date/Time Date/Time Type Type Clinicians Facility Department ID 2019-06-16 2019-06-16 Telephone Atkins, [facility] [id number] 00:00:00 00:00:00 Anupam Robert [id number] [place] [id number] Proftre [id number] [address] 2019-06-09 2019-06-09 Telephone Atikns, [facility] [id number] 00:00:00 00:00:00 Anupam Robert [id number] [place] [id number] Professio [id number] [facility] 2019-02-10 2019-02-[address] [facility] [id number] 00:00:00 00:00:00 Anupam Robert [id number] [place] [id number] Professio [id number] [facility] 2018-12-13 2018-12-13 Orders Doctor DULCE [id number] 00:00:00 00:00:00 Only Unassigned, KIMBERLY [id number] [place] [facility] [id number] 2018-11-27 2018-11-[address] [facility] [id number] 00:00:00 00:00:00 Anupam Robert [id number] [place] [id number] Professio [id number] 2017-12-04 2017-12-04 Outpatient Dulce Lau [facility] [id number] 10:30:00 10:30:00 C 07 2017-06-06 2017-06-07 Outpatient [facility] M[facility] [id number] 14:31:00 23:59:59 09 2017-06-06 2017-06-07 Outpatient [facility]ER M[facility] [id number] 14:31:00 23:59:59 09 2017-06-05 2017-06-05 Outpatient Dulce Lau [facility] [id number] 11:30:00 23:59:59 C 2017-06-05 2017-06-05 Outpatient Dulce Lau [facility] M[facility] [id number] 11:30:00 23:59:59 C 05 2017-04-30 2017-05-01 Outpatient [facility]ER M[facility]IS[facility]ER [id number] 11:52:00 23:59:59 08 2017-04-29 2017-04-29 Outpatient Dulce Lau [facility] [id number] 08:20:00 23:59:00 C 00 2017-04-25 2017-04-25 Outpatient Edin, [facility] [id number] 08:00:00 23:59:59 Camacho Cook 06 2017-04-24 2017-04-25 Outpatient [facility]ER M[facility] [id number] 16:30:00 23:59:59 07 2017-04-24 2017-04-25 Outpatient [facility] M[facility] [id number] 16:27:00 23:59:59 06 2017-03-19 2017-03-19 Outpatient Manjinder Kowalski [facility] [id number] 10:22:00 23:59:00 Hwan 98 Results Test Description Test Time Test Comments Results Result Comments Source HEMATOLOGY 2017-04-29 16:42:00 Test Item Value Reference Range Interpretation Comme nts PTT (test code = PTT) 29.4 s 22.9-35.8 [facility] [id number] 16:42:00 Test Item Value Reference Range Interpretation Comments PT (test code = PT) 12.8 s 12.0-14.7 [facility] [id number] 16:42:000.96[facility] PANEL 2017-04-29 15:26:0095[facility] HermannCHEM [id number] 15:26:000.92[facility] HermannCHEM [id number] 15:26:0021[facility] [id number] 15:26:0084.7[facility] WikilpaDUPCNGFJIU2907-55-71 15:26:0041.3[facility] [place] [id number] 15:26:00 Test Item Value Reference Range Interpretation Comments MCH (test code = MCH) 27.9 pg 27.0-31.0 [facility] [id number] 15:26:0032.9[facility] HermannHEMATOLOGY 2017-04-29 15:26:007.2[facility] UhqrhmxZLTRNTRQSU6898-24-08 15:26:004.87[facility] [id number] 15:26:0013.6[facility] SztmvnrJDHVTKIXSP6556-31-88 15:26:0016.1[facility]orial [id number] 15:26:51486Qlntzhoc [place] [id number] 15:26:008.0[facility] [id number] 05:57:00 Test Item Value Reference Range Interpretation [...] 4 - SerumAlbu min)] EGFR if >60 Citizen Of [place] (test code mL/min/1.73m\\ = EGFRAA) S\\2 EGFR if Non- >60 Estimate d Glomerular Citizen [place] (test code mL/min/1.73m\\ Filtrat ion Rate (eGFR) [...] c hronic kidney failure. CBC WITH AUTO [id number] 05:42:00 Test Item Value Reference Range Interpretation [...] code = 1.0 % 0.0-0.4 H IG%) [id number] 05:53:00 Test Item Value Reference Range Interpretation [...] 4 - SerumAlbu min)] EGFR if >60 Citizen Of [place] (test code mL/min/1.73m\\ = EGFRAA) S\\2 EGFR if Non- >60 Estimate d Glomerular Citizen [place] (test code mL/min/1.73m\\ Filtrat ion Rate (eGFR) [...] c hronic kidney failure. CBC WITH AUTO [id number] 05:27:00 Test Item Value Reference Range Interpretation [...] code = 1.7 % 0.0-0.4 H IG%) [id number] 04:36:00 Test Item Value Reference Range Interpretation [...] 4 - SerumAlbu min)] EGFR if >60 Citizen [place] (test code mL/min/1.73m\\ = EGFRAA) S\\2 EGFR if Non- >60 Estimate d Glomerular Citizen [place] (test code mL/min/1.73m\\ Filtrat ion Rate (eGFR) [...] c hronic kidney failure. CBC WITH AUTO [id number] 04:14:00 Test Item Value Reference Range Interpretation [...] code = 1.9 % 0.0-0.4 H IG%) [id number] 04:40:00 Test Item Value Reference Range Interpretation [...] 4 - SerumAlbu min)] EGFR if >60 Citizen Of [place] (test code mL/min/1.73m\\ = EGFRAA) S\\2 EGFR if Non- >60 Estimate d Glomerular Citizen [place] (test code mL/min/1.73m\\ Filtrat ion Rate (eGFR) [...] c hronic kidney failure. CBC WITH AUTO [id number] 04:09:00 Test Item Value Reference Range Interpretation [...] = 2.4 % 0.0-0.4 H IG%) CULTURE, [id number] 06:50:00To start 15mins after 1st cultureSpecimen: BloodCollected: 01/18/2017 04:05 Status: Final Last Updated: 01/23/2017 06:49 (1) To start 15mins after 1st culture Culture Result (Final) (Final) No Growth After 5 DaysCULTURE, [id number] 06:50:00Specimen: BloodCollected: 01/18/2017 03:55 Status: Final Last [...] code = 3.4 % 0.0-0.4 H IG%) [id number] 04:19:00 Test Item Value Reference Range Interpretation [...] 4 - SerumAlbu min)] EGFR if >60 Citizen Of [place] (test code mL/min/1.73m\\ = EGFRAA) S\\2 EGFR if Non- >60 Estimate d Glomerular Citizen [place] (test code mL/min/1.73m\\ Filtrat ion Rate (eGFR) [...] c hronic kidney failure. CBC WITH AUTO [id number] 04:57:00 Test Item Value Reference Range Interpretation [...] 4.0 % 0.0-0.4 H IG%) CBC AUTO [id number] 04:35:00 Test Item Value Reference Range Interpretation [...] 4 - SerumAlbu min)] EGFR if >60 Citizen [place] (test code mL/min/1.73m\\ = EGFRAA) S\\2 EGFR if Non- >60 Estimate d Glomerular Citizen [place] (test code mL/min/1.73m\\ Filtrat ion Rate (eGFR) [...] c hronic kidney failure. CBC WITH AUTO [id number] 05:01:00 Test Item Value Reference Range Interpretation [...] 4.5 % 0.0-0.4 H IG%) CBC AUTO [id number] 04:56:00 Test Item Value Reference Range Interpretation [...] 4 - SerumAlbu min)] EGFR if >60 Citizen [place] (test code mL/min/1.73m\\ = EGFRAA) S\\2 EGFR if Non- >60 Estimate d Glomerular Citizen [place] (test code mL/min/1.73m\\ Filtrat ion Rate (eGFR) [...] c hronic kidney failure. CBC WITH AUTO [id number] 05:57:00 Test Item Value Reference Range Interpretation [...] code = 4.8 % 0.0-0.4 H IG%) [id number] 05:41:00 Test Item Value Reference Range Interpretation Comments Magnesium (test code = MG) 2.0 mg/dl 1.6-2.3 [id number] 05:41:00 Test Item Value Reference Range Interpretation [...] 4 - SerumAlbu min)] EGFR if >60 Citizen [place] (test code mL/min/1.73m\\ = EGFRAA) S\\2 EGFR if Non- >60 Estimate d Glomerular Citizen [place] (test code mL/min/1.73m\\ Filtrat ion Rate (eGFR) [...] of c hronic kidney failure. LACTIC ACID [id number] 06:43:00 Test Item Value Reference Range Interpretation Comments LACTATE (test code = LAC) 0.9 mmol/l 0.7-2.0 GLYCOSALATED [id number] 05:41:00 Test Item Value Reference Range Interpretation Comments Hemoglobin A1C (test 9.06 % 4.3-6.0 A code = GLYCO) Mean Plasma Glucose 245 mg/dl 90-180 WHEN BONIFACIO T RESULTS FOR (test code = MPG) A1C EXCEED 14.0, THE LINEAR LIMIT OF THE INSTRUMENT, THE CALCULATED RESU LT FOR THE MEAN GLUCOS E IS NOT RELIABLE. CORONARY [id number] 05:09:00 Test Item Value Reference Range Interpretation [...] (test code = 37 mg/dl 30-60 VLDL) [id number] 04:51:00 Test Item Value Reference Range Interpretation Comments Magnesium (test code = MG) 2.1 mg/dl 1.6-2.3 [id number] 04:51:00 Test Item Value Reference Range Interpretation Comments CPK (test code = CPK) 93 U/L 30-135 LIPASE, [id number] 04:43:00 Test Item Value Reference Range Interpretation Comments Lipase (test code = LIPA) 116 U/L 8-223 [id number] 04:43:00 Test Item Value Reference Range Interpretation [...] 4 - SerumAlbu min)] EGFR if >60 Citizen [place] (test code mL/min/1.73m\\ = EGFRAA) S\\2 EGFR if Non- >60 Estimate d Glomerular Citizen [place] (test code mL/min/1.73m\\ Filtrat ion Rate (eGFR) [...]
[2019-11-16 17:22] VITALS: BP 165/72; TEMP 97.4; O2SAT 100
== END 2019-11-16 17:04 | disposition home or self-care (01) ==
LOC: ER 14:49
DX: S63.694A Other sprain of right ring finger, initial encounter (principal); X58.XXXA Exposure to other specified factors, initial encounter; Y93.89 Activity, other specified; Y92.9 Unspecified place or not applicable; Z79.4 Long term (current) use of insulin; Z88.8 Allergy status to other drugs, medicaments and biological substances; I10 Essential (primary) hypertension; E11.9 Type 2 diabetes mellitus without complications; E78.5 Hyperlipidemia, unspecified
CPT/HCPCS: 99283

== ENCOUNTER 2020-01-13 11:33 | Inpatient (IN) | payer BC ==
[2020-01-12 16:27] LABS: Absolute Lymphocytes (CBC) 1.2 K/uL (0.7-4.9); Basophils % 0.7 % (0-1.3); Hematocrit 36.3 % (39.6-49.0); Lymphocytes % 17.7 % (15.3-44.8); MPV 7.6 fL (7.6-11.3); RBC Red Blood Cell Count 4.59 M/uL (4.33-5.43)
--- NOTE | 2020-01-12 16:27 | RAD REPORT ---
EXAM DESCRIPTION: RAD - Chest Pa And Lat (2 Views) - 01/12/2020 4:19 pm CLINICAL HISTORY: pre op Chest pain. COMPARISON: Chest Single View dated 08/29/2019; Chest Single View dated 08/07/2019; Chest Pa And Lat (2 Views) dated 08/30/2018; Chest Single View dated 06/11/2018 FINDINGS: The lungs are clear. The heart is mildly enlarged. No displaced fractures.
[2020-01-12 16:32] LABS: Protime INR 0.94
[2020-01-13] MEDS ORDERED: NA CHLORIDE 0.9% 500 ML ONE (12:08)
--- OUTSIDE RECORDS SUMMARY | 2020-01-13 12:24 | XMS REPORT | Continuity of Care Document ---
:1965 Author Organization [employer] Care Team Providers Name Role Phone [facility] [place] Information [employer] Unavailable Un available Problems Problem Status Onset Classification Date Comments Sourc e Date Reported LUMBAR STENOSIS Active [address] M54.[address] Abdominal pain Resolved Problem 12/07/2017 Misc her (finding) Neuro,[facility] Chest pain (finding) Resolved Problem 12/07/2017 [place] Neuro,[facility] Chronic back pain Resolved Problem 12/07/2017 M ischer (disorder) Neuro,[facility] Diabetes mellitus Active Problem 12/07/2017 M ischer (disorder) Neuro,[facility] Hypercholesterolemia Active Problem 12/07/2017 Mischer (disorder) Neuro,[facility] Hypertensive disorder, Active Problem 12/07/2017 Mischer systemic arterial Ne uro, (disorder) [facility] Morbid obesity Active Problem 12/07/2017 Misc her (disorder) Neuro,[facility] 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 Neuro, (disorder) [facility] Medications Medication Details Route Status Patient Ordering Order Source Instructions Provider Date amitriptyline 10 10 mg = 1 Active Misch er mg oral tablet tab, PO, 017 Neuro Bedtime, 4 tabs at bedtime for 1 week then 5 tabs at bedtime thereafter , # 150 tab, 2 Refill(s), Pharmacy: [facility] diclofenac sodium 75 mg = 1 Active Misc her 75 mg oral enteric tab, PO, 017 Neur o coated, BID, PRN delayed-release Pain Score tablet 7-10, # 60 tab, 2 Refill(s), Pharmacy: [facility] Cyclobenzaprine 10 mg = 1 Active Mische r hydrochloride 10 tab, PO, 017 Neuro MG Oral Tablet BID, # 60 [Flexeril] tab, 2 Refill(s), Pharmacy: [facility] Sodium Chloride 4.2 mL, Inactive Mischer Route: 017 Neuro EPIDURAL, Dosing Weight 141.364, kg, ONCE, (Preservat liliana Free), Start date: 04/25/17 8:50:00 [employer], Stop date: 04/25/17 8:50:00 [employer] Lidocaine 3 mL, Inactive Mischer Hydrochloride 10 Route: 017 Neuro MG/ML Injectable SUB-Q, Solution Dosing Weight 141.364, kg, ONCE, (Preservat liliana Free), Start date: 04/25/17 8:50:00 [employer], Stop date: 04/25/17 8:50:00 [employer] Omnipaque 300 2 mL, Inactive Mischer Route: 017 Neuro EPIDURAL, Dosing Weight 141.364, kg, ONCE, (Preservat liliana Free), Start date: 04/25/17 8:50:00 [employer], Stop date: 04/25/17 8:50:00 [employer] Dexamethasone 8 mg, Inactive Mischer Route: 017 Neuro EPIDURAL, ONCE, Dosing Weight 141.364, kg, (Preservat liliana Free), Start date: 04/25/17 8:50:00 [employer], Stop date: 04/25/17 8:50:00 [employer] Bupivacaine 2 mL, Inactive Mischer Hydrochloride 2.5 Route: 017 Neuro MG/ML Injectable EPIDURAL, Solution Dosing Weight 141.364, kg, ONCE, (Preservat liliana Free), Start date: 04/25/17 8:50:00 [employer], Stop date: 04/25/17 8:50:00 [employer] Allergies, Adverse Reactions, Alerts No Known Medication Allergies Immunizations No Data Provided for This Section Results Order Name Results Value Reference Date Interpretation Comments Danica rce Range HEMATOLOGY PTT 29.4 22.9 - 35.[address] HEMATOLOGY PT 12.8 12.0 - 14.[address] HEMATOLOGY INR 0.96 0.85 - 1.[address] CHEM PANEL eGFR [address] [address] Comment: The Medical eGFR is Center calculated [...] CHEM PANEL Creatinine 0.92 0.50 - 1.40 04/29[facility] Varinder as [address] CHEM PANEL BUN 21 7 - 22 04/[address] HEMATOLOGY MCV 84.7 80.0 - 94.0 04/[address] HEMATOLOGY Hct 41.3 42.0 - 54.0 04/[address] HEMATOLOGY MCH 27.9 27.0 - 31.0 04/[address] HEMATOLOGY MCHC 32.9 32.0 - 36.0 04/[address] HEMATOLOGY WBC 7.2 3.7 - 10.4 04/[address] HEMATOLOGY RBC 4.87 4.70 - 6.10 04/[address] HEMATOLOGY Hgb 13.6 14.0 - 18.0 04/[address] HEMATOLOGY RDW 16.1 11.5 - 14.5 04/[address] HEMATOLOGY Platelet 239 133 - 450 04/[address] HEMATOLOGY MPV 8.0 7.4 - 10.4 04/[address] Pathology Reports No Data Provided for This Section Diagnostic Reports Report Value Date Source Spine thoracic EXAM: CT MYELOGRAM LUMBAR SPINE 04/29/2017 [facility] myelogram CT EXAM: CT MYELOGRAM THORACIC SPINE Center [...] myelogram EXAM: CT MYELOGRAM LUMBAR SPINE 7 [facility] CT EXAM: CT MYELOGRAM THORACIC [...] compromise. T8-T9: Normal T9-T10: Disc osteophyte comp jaent on the right abutting the cord with [...] myelogram EXAM: CT MYELOGRAM LUMBAR SPINE 7 [facility] EXAM: CT MYELOGRAM THORACIC SPINE Center EXAM: [...] thoracic EXAM: CT MYELOGRAM LUMBAR SPINE 04/29/2017 [facility] Medical myelogram DX EXAM: CT MYELOGRAM [...] EXAM: XR ENTIRE SPINE 2 VIEWS 03/19/2017 [facility] 6+ Views DX DATE: 03/19/2017 [...] Date Comments Source Height 177.8 cm 06/05/2017 [facility] Neuro Weight 146.818 06/05/2017 [facility] BMI Calculated 46.44 06/05/2017 [facility] Neuro Systolic (mm Hg) 130 06/05/2017 [facility] Jaxson ro Diastolic (mm Hg) 83 06/05/2017 [facility] uro Temperature Oral (F) 99.3 F 06/05/2017 [facility] Heart Rate 70 06/05/2017 [facility] BMI Calculated 44.72 04/29/2017 [facility] Weight 141.36 04/29/2017 [facility] Height 177.8 cm 04/29/2017 [facility] Heart Rate 66 04/29/2017 [facility] Respitory Rate 20 04/29/2017 [facility] Systolic (mm Hg) 140 04/29/2017 [facility] d[facility] Center Diastolic (mm Hg) 73 04/29/2017 [facility] Encounters Location Location Encounter Encounter Reason Attending ADM [facility] us Source Details Type Number For Provider Date Date Visit Outpatient [id number] VIOLA 08/19 Active [facility] [place] Outpatient [id number] MANJINDER KOWALSKI 09/04 Act [facility] [place] Outpatient [id number] MANJINDER KOWALSKI 03/19 Act [facility] [place] Outpatient [id number] CONY 03/19 [facility] Outpatient [id number] Manjinder Kowalski 03/19 03/20 [facility] Outpatient [id number] DULCE THOMPSONN 04/04 [facility] [place] [facility] Phone [phone] 04/24 04/26 [facility] Message /2016 [facility] Spine Phone [id number] 04/24 04/26 [facility] Message /2016 [facility] Outpatient [id number] CON[place] 04/25 [facility] Mitesh MNA Spine Outpatient [id number] Harjeet 04/25 04/26 [facility] Neuro [facility] Outpatient [id number] Dulce Lau 04/29 04/30 [facility] MNA Spine Phone [id number] 04/30 05/02 [facility] Message /2016 Neuro [facility] Outpatient [id number] DULCE LAU 06/05 Act liliana [facility] [place] MNA Spine Outpatient [id number] Harjeet 06/05 06/06 [facility] MNA Spine Phone [id number] 06/06 06/08 [facility] Message /2017 Neuro C Outpatient [id number] DULCE LAU 12/04 [facility] [place] [facility]NA Spine Ambulatory [id number] Harjeet 12/04 12/04 [facility] Pre-Reg Neuro [facility] Procedures Procedure Code Date Perfomer Comments Source Myelography via [id number] 04/29/2017 [facility] thoracic Myelography via [id number] 04/29/2017 [facility] lumbar [facility] radiological supervision and interpretation; lumbosacral NJX INTERLAMINAR 04/25/2017 [facility] Neuro LMBR/SA Ear operations [id number] [facility]ural [id number] [facility] Lumbar epidural [id number] [facility] steroid injection Neuro,[facility] Nose operation [id number] [facility] Operation [id number] [facility] Assessment and Plan No Data Provided for [...] [facility] Smoking Status Former smoker; Type: Cigarettes; Exposur e to Tobacco Smoke None; Cigarette Smoking Last 365 Days No; Reg Smoking Cessation Counseling No Family History No Data Provided for This Section Advance Directives No Data Provided for This Section Functional Status No Data Provided for This Section
--- OUTSIDE RECORDS SUMMARY | 2020-01-13 12:25 | XMS REPORT | Continuity of Care Document ---
:1965 Author Organization [facility] t Address [address] [place] [address] Care Team Providers Name Role Phone Anupam Atkins MD Attending Clinician Doctor Unassigned, [place] Attending Clinician Unavailable Rody Lau Attending Clinician Joey Jesus Attending Clinician Vandana Kowalski Attending Clinician TARAPASADE Attending Clinician Unavailable BUSUEGO Attending Clinician Unavailable TARAPASADE Admitting Clinician Unavailable BUSUEGO Admitting Clinician Unavailable Problems Condition Condition Condition Status Onset Resolution Last Treating Co mments Source Name Details Category Date Date Treatment Clinician Date LUMBAR Diagnosis Active 2016-052017-04-29 Mem oria STENOSIS 1-14 09:02:00 l LUMBAR 00:00: [place] STENOSIS 00 Active 04/08/2017 [facility] M54.16 Diagnosis Active 2016-052017-03-19 Mem oria 0-25 10:29:00 l M54.16 00:00: Mitesh 00 Active 03/19/2017 [facility] Abdominal Problem Resolve 2017-12-07 M emoria pain d 00:03:51 l (finding) Mitesh Abdominal pain (finding) Resolved Problem 12/07/2017 [facility] Chest pain Problem Resolve 2017-12-07 Memoria (finding) d 00:03:51 l Chest Mitesh pain (finding) Resolved Problem 12/07/2017 [facility] Chronic Problem Resolve 2017-12-07 Mem oria back pain d 00:03:51 l (disorder) Chronic Her mauricio back pain (disorder) Resolved Problem 12/07/2017 [facility] Diabetes Problem Active 2017-12-07 Mem oria mellitus 00:03:51 l (disorder) Diabetes He rmann mellitus (disorder) Active Problem 12/07/2017 [facility] Hyperchole Problem Active 2017-12-07 M emoria sterolemia 00:03:51 l (disorder) Gabo n Hyperchole sterolemia (disorder) Active Problem 12/07/2017 [facility] Hypertensi Problem Active 2017-12-07 M emoria ve 00:03:51 l disorder, [place] systemic Hypertensi arterial ve (disorder) disorder, systemic arterial (disorder) Active Problem 12/07/2017 [facility] Morbid Problem Active 2017-12-07 Memor ia obesity 00:03:51 l (disorder) Morbid Herm chacorta obesity (disorder) Active Problem 12/07/2017 [facility] Prolapsed Problem Active 2017-12-07 Me moria lumbar 00:03:51 l interverte Gabo n bral disc Prolapsed (disorder) lumbar interverte bral disc (disorder) Active Problem 12/07/2017 [facility] Allergies, Adverse Reactions, Alerts This patient has no known allergies or adverse reactions. Social History Smoking Status Start Date Stop Date Source Social History 2017-04-29 16:58:10 2017-04-29 16:58:10 [facility] Medications Ordered Filled Start Stop Current Ordering Indication Dosage Frequency Signature Comments Components Source Medication Medication Date Date Medication? Clinician (SIG) Name Name amitriptyli 2016-05 Yes 10 mg = 1 M emoria ne 10 mg 2-01 tab, PO, l oral tablet 14:52: Bedtime, 4 [place] 00 tabs at bedtime for 1 week then 5 tabs at bedtime thereafter , # 150 tab, 2 Refill(s), Pharmacy: [id number] diclofenac 2016-05 Yes 75 mg = 1 Me moria sodium 75 2-01 tab, PO, l mg oral 14:52: BID, PRN Gabo n enteric 00 Pain Score coated, 7-10, # 60 delayed-rel tab, 2 ease tablet Refill(s), Pharmacy: [id number] Cyclobenzap 2016- Yes 10 mg = 1 M emoria rine 2-01 tab, PO, l hydrochlori 14:52: BID, # 60 H ermann de 10 MG 00 tab, 2 Oral Tablet Refill(s), [Flexeril] Pharmacy: [id number] Sodium 2016- Yes 4.2 mL, Memoria Chloride 2- Route: l 14:50: EPIDURAL, Mitesh 00 Dosing Weight 141.364, kg, ONCE, (Preservat liliana Free), Start date: 04/25/17 8:50:00 [employer], Stop date: 04/25/17 8:50:00 [employer] Lidocaine 2017- Yes 3 mL, Memoria Hydrochlori 2- Route: l de 10 MG/ML 14:50: SUB-Q, Herm chacorta Injectable 00 Dosing Solution Weight 141.364, kg, ONCE, (Preservat liliana Free), Start date: 04/25/17 8:50:00 [employer], Stop date: 04/25/17 8:50:00 [employer] Omnipaque 2017- Yes 2 mL, Memoria 300 2- Route: l 14:50: EPIDURAL, Mitesh 00 Dosing Weight 141.364, kg, ONCE, (Preservat liliana Free), Start date: 04/25/17 8:50:00 [employer], Stop date: 04/25/17 8:50:00 [employer] Dexamethaso 2017-1 Yes 8 mg, Memor ia ne 2- Route: l 14:50: EPIDURAL, Mitesh 00 ONCE, Dosing Weight 141.364, kg, (Preservat liliana Free), Start date: 04/25/17 8:50:00 [employer], Stop date: 04/25/17 8:50:00 [employer] Bupivacaine 2017-1 Yes 2 mL, Memor ia Hydrochlori 2- Route: l de 2.5 14:50: EPIDURAL, Gabo n MG/ML 00 Dosing Injectable Weight Solution 141.364, kg, ONCE, (Preservat liliana Free), Start date: 04/25/17 8:50:00 [employer], Stop date: 04/25/17 8:50:00 [employer] Vital Signs Vital Name Observation Time Observation Value Comments Source Height 2017-06-05 17:46:00 177.8 cm [facility] [place] Weight 2017-06-05 17:46:00 [facility] BMI Calculated 2017-06-05 17:46:00 Memori al [place] Systolic (mm Hg) 2017-06-05 17:46:00 Chuck rial Mitesh Diastolic (mm Hg) 2017-06-05 17:46:00 Mem orial [place] Temperature Oral (F) 2017-06-05 17:46:00 99.3 F [facility] [place] Heart Rate 2017-06-05 17:46:00 [facility] BMI Calculated 2017-04-29 15:23:00 Memori al [place] Weight 2017-04-29 15:23:00 [facility] Height 2017-04-29 15:23:00 177.8 cm [facility] [place] Heart Rate 2017-04-29 15:00:00 [facility] [place] Respitory Rate 2017-04-29 15:00:00 Memori al [place] Systolic (mm Hg) 2017-04-29 15:00:00 Chuck rial Mitesh Diastolic (mm Hg) 2017-04-29 15:00:00 Mem orial Mitesh Procedures Procedure Date / Time Performed Performing Clinician [facility] e Myelography via lumbar 2017-04-29 16:14:00 Memor ial [place] injection, including radiological supervision and interpretation; thoracic Myelography via lumbar 2017-04-29 16:14:00 Memor ial [place] injection, including radiological supervision and interpretation; lumbosacral NJX INTERLAMINAR LMBR/SA 2017-04-25 14:50:00 Mem orial Mitesh Ear operations [facility] Lumbar epidural injection Memori al [place]ites[place] Lumbar epidural steroid [facility] injection Nose operation [facility] [place] Operation [facility] Encounters Start End Encounter Admission Attending Care Care Encounter Source Date/Time Date/Time Type Type Clinicians Facility Department ID 2020-01-05 2020-01-05 Telephone Wilbert, [facility] [id number] 00:00:00 00:00:00 Anupam Robert [id number] Dottie [id number] [facility] 2019-06-16 2019-06-16 Telephone Atkins, [facility] [id number] 00:00:00 00:00:00 Anupam Robert [id number] [place] [id number] Professio [id number] [address] 2019-06-09 2019-06-09 Telephone Atkins, [facility] [id number] 00:00:00 00:00:00 Anupam Robert [id number] [place] [id number] Professio [id number] [address] 2019-02-10 2019-02-10 Telephone Atkins, [facility] [id number] 00:00:00 00:00:00 Anupam Robert [id number] [place] [id number] Professio [id number] [address] 2018-12-13 2018-12-13 Orders Doctor DULCE [id number] 00:00:00 00:00:00 Only Unassigned, KIMBERLY [id number] [place] [facility] [id number] [id number] 2018-11-27 2018-11-27 Refill Atkins, [facility] [id number] 00:00:00 00:00:00 Anupam Robert [id number] [place] [id number] Professio [id number] [address] 2017-12-04 2017-12-04 Outpatient Dulce Lau MHMISCHER MHMISCHER [id number] 10:30:00 10:30:00 C 07 2017-06-06 2017-06-07 Outpatient MHMISCHER MHMISCHER [id number] 14:31:00 23:59:59 2017-06-06 2017-06-07 Outpatient MHMISCHER MHMISCHER [id number] 14:31:00 23:59:59 09 2017-06-05 2017-06-05 Outpatient Dulce Lau MHMISCHER MHMISCHER [id number] 11:30:00 23:59:59 C 2017-06-05 2017-06-05 Outpatient Dulce Lau MHMISCHER MHMISCHER [id number] 11:30:00 23:59:59 C 05 2017-04-30 2017-05-01 Outpatient MHMISCHER MHMISCHER [id number] 11:52:00 23:59:59 08 2017-04-29 2017-04-29 Outpatient Dulce Lau [facility] [id number] 08:20:00 23:59:00 C 00 2017-04-25 2017-04-25 Outpatient Edin MHMISCHER MHMISCHER [id number] 08:00:00 23:59:59 Camacho Cook 06 2017-04-24 2017-04-25 Outpatient MHMISCHER MHMISCHER [id number] 16:30:00 23:59:59 07 2017-04-24 2017-04-25 Outpatient MHMISCHER MHMISCHER [id number] 16:27:00 23:59:59 06 2017-03-19 2017-03-19 Outpatient Manjinder Kowalski [facility] [id number] 10:22:00 23:59:00 Hwan 98 Results Test Description Test Time Test Comments Results Result Comments Source HEMATOLOGY 2017-04-29 16:42:00 Test Item Value Reference Range Interpretation Comme nts PTT (test code = PTT) 29.4 s 22.9-35.[address] [facility] [id number] 16:42:00 Test Item Value Reference Range Interpretation Comments PT (test code = PT) 12.8 s 12.0-14.[address] [facility] [id number] 16:42:000.96[facility]annCHEM PANEL 2017-04-29 15:26:0095[facility] HermannCHEM [id number] 15:26:000.92[facility] HermannCHEM [id number] 15:26:0021[facility] [id number] 15:26:0084.7[facility] [id number] 15:26:0041.3[facility] [place] [id number] 15:26:00 Test Item Value Reference Range Interpretation Comments MCH (test code = MCH) 27.9 pg 27.0-31.[address] [facility] [id number] 15:26:0032.9[facility] HermannHEMATOLOGY 2017-04-29 15:26:007.2[facility] [id number] 15:26:004.87[facility] [id number] 15:26:0013.6[facility]orial RvabbuiTKRHCJQBXO8027-69-39 15:26:0016.1[facility] [id number] 15:26:25851Wcyjwtqs [place] [id number] 15:26:008.0[facility] [id number] 05:57:00 Test Item Value Reference Range Interpretation [...] 4 - SerumAlbu min)] EGFR if >60 Togolese (test code mL/min/1.73m\\ = EGFRAA) S\\2 EGFR if Non- >60 Estimate d Glomerular Togolese (test code mL/min/1.73m\\ Filtrat ion Rate (eGFR) [...] c hronic kidney failure. CBC WITH AUTO [id number] 05:42:00 Test Item Value Reference Range Interpretation [...] code = 1.0 % 0.0-0.4 H IG%) [id number] 05:53:00 Test Item Value Reference Range Interpretation [...] 4 - SerumAlbu min)] EGFR if >60 [place]ese (test code mL/min/1.73m\\ = EGFRAA) S\\2 EGFR if Non- >60 Estimate d Glomerular Togolese (test code mL/min/1.73m\\ Filtrat ion Rate (eGFR) [...] c hronic kidney failure. CBC WITH AUTO [id number] 05:27:00 Test Item Value Reference Range Interpretation [...] code = 1.7 % 0.0-0.4 H IG%) [id number] 04:36:00 Test Item Value Reference Range Interpretation [...] 4 - SerumAlbu min)] EGFR if >60 Togolese (test code mL/min/1.73m\\ = EGFRAA) S\\2 EGFR if Non- >60 Estimate d Glomerular Togolese (test code mL/min/1.73m\\ Filtrat ion Rate (eGFR) [...] c hronic kidney failure. CBC WITH AUTO [id number] 04:14:00 Test Item Value Reference Range Interpretation [...] code = 1.9 % 0.0-0.4 H IG%) [id number] 04:40:00 Test Item Value Reference Range Interpretation [...] 4 - SerumAlbu min)] EGFR if >60 [place]ogolese (test code mL/min/1.73m\\ = EGFRAA) S\\2 EGFR if Non- >60 Estimate d Glomerular Togolese (test code mL/min/1.73m\\ Filtrat ion Rate (eGFR) [...] c hronic kidney failure. CBC WITH AUTO [id number] 04:09:00 Test Item Value Reference Range Interpretation [...] = 2.4 % 0.0-0.4 H IG%) CULTURE, [id number] 06:50:00To start 15mins after 1st cultureSpecimen: BloodCollected: 01/18/2017 04:05 Status: Final Last Updated: 01/23/2017 06:49 (1) To start 15mins after 1st culture Culture Result (Final) (Final) No Growth After 5 DaysCULTURE, [id number] 06:50:00Specimen: BloodCollected: 01/18/2017 03:55 Status: Final Last [...] code = 3.4 % 0.0-0.4 H IG%) [id number] 04:19:00 Test Item Value Reference Range Interpretation [...] 4 - SerumAlbu min)] EGFR if >60 [place]ogolese (test code mL/min/1.73m\\ = EGFRAA) S\\2 EGFR if Non- >60 Estimate d Glomerular Togolese (test code mL/min/1.73m\\ Filtrat ion Rate (eGFR) [...] c hronic kidney failure. CBC WITH AUTO [id number] 04:57:00 Test Item Value Reference Range Interpretation [...] 4.0 % 0.0-0.4 H IG%) CBC AUTO [id number] 04:35:00 Test Item Value Reference Range Interpretation [...] 4 - SerumAlbu min)] EGFR if >60 Togolese (test code mL/min/1.73m\\ = EGFRAA) S\\2 EGFR if Non- >60 Estimate d Glomerular Togolese (test code mL/min/1.73m\\ Filtrat ion Rate (eGFR) [...] c hronic kidney failure. CBC WITH AUTO [id number] 05:01:00 Test Item Value Reference Range Interpretation [...] 4.5 % 0.0-0.4 H IG%) CBC AUTO [id number] 04:56:00 Test Item Value Reference Range Interpretation [...] 4 - SerumAlbu min)] EGFR if >60 Togolese (test code mL/min/1.73m\\ = EGFRAA) S\\2 EGFR if Non- >60 Estimate d Glomerular Togolese (test code mL/min/1.73m\\ Filtrat ion Rate (eGFR) [...] c hronic kidney failure. CBC WITH AUTO [id number] 05:57:00 Test Item Value Reference Range Interpretation [...] code = 4.8 % 0.0-0.4 H IG%) [id number] 05:41:00 Test Item Value Reference Range Interpretation Comments Magnesium (test code = MG) 2.0 mg/dl 1.6-2.3 [id number] 05:41:00 Test Item Value Reference Range Interpretation [...] 4 - SerumAlbu min)] EGFR if >60 [place]ogolese (test code mL/min/1.73m\\ = EGFRAA) S\\2 EGFR if Non- >60 Estimate d Glomerular Togolese (test code mL/min/1.73m\\ Filtrat ion Rate (eGFR) [...] of c hronic kidney failure. LACTIC ACID [id number] 06:43:00 Test Item Value Reference Range Interpretation Comments LACTATE (test code = LAC) 0.9 mmol/l 0.7-2.0 GLYCOSALATED [id number] 05:41:00 Test Item Value Reference Range Interpretation Comments Hemoglobin A1C (test 9.06 % 4.3-6.0 A code = GLYCO) Mean Plasma Glucose 245 mg/dl 90-180 WHEN BONIFACIO T RESULTS FOR (test code = MPG) A1C EXCEED 14.0, THE LINEAR LIMIT OF THE INSTRUMENT, THE CALCULATED RESU LT FOR THE MEAN GLUCOS E IS NOT RELIABLE. CORONARY [id number] 05:09:00 Test Item Value Reference Range Interpretation [...] (test code = 37 mg/dl 30-60 VLDL) [id number] 04:51:00 Test Item Value Reference Range Interpretation Comments Magnesium (test code = MG) 2.1 mg/dl 1.6-2.3 [id number] 04:51:00 Test Item Value Reference Range Interpretation Comments CPK (test code = CPK) 93 U/L 30-135 LIPASE, [id number] 04:43:00 Test Item Value Reference Range Interpretation Comments Lipase (test code = LIPA) 116 U/L 8-223 [id number] 04:43:00 Test Item Value Reference Range Interpretation [...] 4 - SerumAlbu min)] EGFR if >60 [place]ogolese (test code mL/min/1.73m\\ = EGFRAA) S\\2 EGFR if Non- >60 Estimate d Glomerular Togolese (test code mL/min/1.73m\\ Filtrat ion Rate (eGFR) [...]
--- OUTSIDE RECORDS SUMMARY | 2020-01-13 12:25 | XMS REPORT | Summary of Care ---
:1965 Author Organization [facility] Address [address] [place] [id number] Care Team Providers Name Role Phone Juan Luis Harjeet Fine Primary Care Provider Reason for Visit Reason Comments Notification Encounter Details Date Type Department Care Team Description 01/05/2020 Telephone [facility] Endocrinology- Anupam Atkins MD Notification [address] [address] [address] [place] [address] [phone] Allergies No Known Allergiesdocumented as of this encounter (statuses as of 01/07/2020) Medications Medication Sig Dispensed Refills Start Date End Date Status metoprolol tartrate 50 mg Take 50 mg by 0 Active tablet mouth 2 (two) times daily. lisinopril 40 mg tablet Take 40 mg by 0 Active mouth daily. amLODIPine 5 mg tablet Take 5 mg by 0 Active mouth daily. exenatide microspheres inject 2 mg 2 mL 3 04/08/2018 Active (BYDUREON BCI) 2 under the mg/0.85 mL skin weekly. [...] 1 Each 3 100 Syringe 3 10/20/2018 Act liliana syringe-needle 1/2 mL 31 (three) times gauge [...] as of this encounter (statuses as of 01/07/2020) Active Problems Problem Noted Date Cellulitis of right lower extremity 06/25/2018 Cellulitis of right lower leg 05/25/2018 Morbid obesity with body mass index of 40.0-49.9 05/25 documented as of this encounter (statuses as of 01/07/2020) Immunizations Name Administration Dates Next Due Influenza Virus Vaccine Quad .5 mL IM 6+ MO 06/26/2018 documented as of this encounter Social History Tobacco Use Types Packs/Day Years Used Date Never Smoker Smokeless Tobacco: Never Used Alcohol Use Drinks/Week oz/Week Comments No Sex Assigned at Date Recorded Not on file documented as of this encounter Last Filed Vital Signs Not on filedocumented in this encounter Miscellaneous Notes Telephone Encounter - Kya Barros LVN - 01/07/2020 4:18 PM CDTPlaced in providers folder for review/signature Kya Barros LVN elephone Encounter - Kristina Price - 01/05/2020 10:19 AM CDTReceived fax, [facility] [facility] notification of current enrollment ex hardeep, given to nurse. documented in this encounter Plan of Treatment Health Maintenance Due Date Last Done Comments HEPATITIS C (HCV) SCREEN 1965 Depression Screening 1977 DTaP,Tdap,and Td Vaccines (1 - 01/30/1984 Tdap) COLON CANCER SCREENING ANNUAL 2015 FIT/FOBT COLON CANCER SCREENING FIT DNA 2015 EVERY 3 YEARS COLON CANCER SCREENING 2015 SIGMOIDOSCOPY EVERY 5 YEARS COLONOSCOPY 2015 Colorectal Cancer Screening 2015 Zoster Recombinant Vaccine 2015 (SHINGRIX) (1 of 2) INFLUENZA VACCINE (#1) 2020 06/26/2018 PNEUMOCOCCAL 0-64 YEARS COMBINED Aged Out No longer eligible based on SERIES patient's age to complete this topic documented as of this encounter Results Not on filedocumented in this encounter Insurance Payer Benefit Plan Subscriber ID Effective Dates Phone Address Type / Group BCBS OF [facility] [place] [id number] 2019-Slick [phone] [address] PPO/POS [place] - OUT OF t 7 [id number] [place] [address] documented as of this encounter
[2020-01-13] MEDS ORDERED: MIDAZOLAM HCL 2 MG/2 ML INJ ONE (13:09)
[2020-01-13] MEDS ORDERED: NICARDIPINE HCL 25 MG/10 ML IV ONE (13:09)
[2020-01-13] MEDS ORDERED: FENTANYL CITR 100 MCG/2 ML ONE (13:09)
[2020-01-13] MEDS ORDERED: HEPARIN 5000 UNIT/ML 1 ML VIAL ONE (13:09)
[2020-01-13] MEDS ORDERED: HEPA 1000U/500MLS 0 UNIT/0 ML BAG IV ONE (13:09)
[2020-01-13] MEDS ORDERED: ATROPINE SULF 1 MG/10 ML SYR IV ONE (13:10)
[2020-01-13] MEDS ORDERED: NITROGLYCERIN/D5W 0 MG/0 ML BTL IV ONE (13:10)
[2020-01-13] MEDS ORDERED: NITROGLYCERIN 100 MCG/ML SYR (for cath lab use only) IV ONE (13:10)
[2020-01-13] MEDS ORDERED: ALBUTEROL 2.5 MG/3 ML NEB SOL NEB PRN (13:56)
[2020-01-13] MEDS ORDERED: ONDANSETRON 4 MG/2 ML VIAL IV PRN (13:56)
[2020-01-13] MEDS ORDERED: ACETAMINOPHEN 500 MG TAB PO PRN (13:56)
--- NOTE | 2020-01-13 14:11 | P.HP ---
Certification for Inpatient Patient admitted to: Observation With expected LOS: <2 Midnights Practitioner: I am a practitioner with admitting privileges, knowledge of patient current condition, hospital course, and medical plan of care. Services: Services provided to patient in accordance with Admission requirements found in Title 42 Section 412.3 of the Code of Federal Regulations Patient History Date of Service: 01/13/20 Reason for admission: Shortness of breath History of Present Illness: 54-year-old male with past medical history hypertension, diabetes, hyperlipidemia pain complaining of shortness of breath Allergies No Known Allergies Allergy (Unverified 01/12/20 16:17) Home Medications: Amlodipine [Norvasc*] 5 mg PO BID 04/11/19 Insulin Regular, Human [Humulin R U-500 Kwikpen] 60 unit SQ TID 04/11/19 Metformin ER [Glucophage ER*] 1,000 mg PO BID 04/11/19 Metoprolol Tartrate 50 mg PO BID 04/11/19 lisinopriL [Lisinopril] 40 mg PO DAILY 04/11/19 Hydralazine [Apresoline*] 1 tab PO BID 08/07/19 Doxazosin [Cardura] 1 mg PO BID 08/29/19 Exenatide Microspheres [Bydureon Bcise] 2 mg SQ SEECOM 08/29/19 Doxycycline Hyclate 100 mg PO BID 10/14/19 Glimepiride 4 mg PO BID* 10/14/19 Smz./Tmp. [Bactrim Ds 800 MG/160 MG] 1 tab PO BID 10/14/19 - Past Medical/Surgical History Diabetic: Yes -: HTN -: niddm -: Hyperlipidemia -: Sleep apnea -: RLE Cellulitis -: Adenoidectomy -: Myringotomy -: Lower back surgery - Family History Mother -: Hypertension, Cancer, Other (see notes) Notes: colon CA, colostomy bag Father -: Hypertension, Cancer Notes: prostata CA- remission, colon CA - Social History Alcohol use: No CD- Drugs: No Caffeine use: Yes Physical Examination - Vital Signs Temperature: 98.1 F Blood Pressure: 174/67 Pulse: 75 Respirations: 32 - Physical Exam General: Alert, In no apparent distress, Obese HEENT: Atraumatic, Normocephalic Neck: Supple Respiratory: Diminished, Crackles/rales Cardiovascular: Regular rate/rhythm, Normal S1 S2 Capillary refill: <2 Seconds Gastrointestinal: Soft and benign, Non-distended Musculoskeletal: No clubbing, Swelling Integumentary: No rashes Neurological: Normal speech, Normal strength at 5/5 x4 extr Lymphatics: No axilla or inguinal lymphadenopathy - Studies Laboratory Data (last 24 hrs) 01/12/20 16:10: Sodium 144, Potassium 4.0, BUN 21 H, Creatinine 0.97, Glucose 70 L 01/12/20 16:10: PT 11.1, INR 0.94, APTT 34.2 01/12/20 16:10: WBC 7.1, Hgb 11.8 L, Hct 36.3 L, Plt Count 268 Microbiology Data (last 24 hrs): 01/12/20 16:01 Nasopharnyx Coronavirus COVID-19 PCR - Final Assessment and Plan - Problems (Diagnosis) (1) Bilateral lower extremity edema Onset Date: 09/08/17 Current Visit: No Status: Acute (2) Hyperlipidemia Onset Date: 11/07/15 Current Visit: No Status: Acute (3) Hypertension Onset Date: 11/07/15 Current Visit: No Status: Acute (4) Morbid obesity Onset Date: 11/07/15 Current Visit: No Status: Acute (5) Orthopnea Onset Date: 09/08/17 Current Visit: No Status: Acute - Advance Directives Does patient have a Living Will: No Does patient have a Durable POA for Healthcare: No
[2020-01-13] MEDS: IPRATROPIUM BROM 0.5MG/2.5ML NEB SCH ×2 (14:52→19:45)
[2020-01-13 15:01] LABS: Absolute Lymphocytes (CBC) 1.2 K/uL (0.7-4.9); Basophils % 0.9 % (0-1.3); CKMB Creatine Kinase MB 4.2 ng/mL (0.3-3.6); Hematocrit 35.5 % (39.6-49.0); Lymphocytes % 16.7 % (15.3-44.8); MPV 8.1 fL (7.6-11.3); RBC Red Blood Cell Count 4.43 M/uL (4.33-5.43); Troponin I < 0.02 ng/mL (0.0-0.045)
[2020-01-13 15:03] LABS: Albumin 3.4 g/dL (3.4-5.0); Bilirubin Total 0.5 mg/dL (0.2-1.0); Potassium 4.3 mmol/L (3.5-5.1); Protein, Total 7.5 g/dL (6.4-8.2)
--- NOTE | 2020-01-13 15:29 | RAD REPORT ---
EXAM DESCRIPTION: RAD - Chest Single View - 01/13/2020 3:23 pm CLINICAL HISTORY: CHF COMPARISON: Two view chest January 11 TECHNIQUE: AP portable chest image was obtained 01/13/2020 3:23 pm . FINDINGS: Lung volumes are low. Patient is kyphotic which accentuates all chest findings. Cardiac si lhouette is enlarged. Vasculature and lung markings are prominent. No measurable pleural effusion and no pneumothorax. No acute bony abnormality seen. No acute aortic findings suspected. IMPRESSION: CHF/volume overload findings are still present. No peripheral mass or consolidation.
[2020-01-13] MEDS: INSULIN -REGULAR HUMAN 50 UNIT/0.5 ML ML SQ SCH ×2 (16:30→21:05)
[2020-01-13] MEDS ORDERED: FUROSEMIDE 40 MG/4 ML VIAL IV ONE (20:44)
[2020-01-13] MEDS: DOXAZOSIN 2 MG TAB PO SCH (21:04)
[2020-01-13] MEDS: METOPROLOL TAR 50 MG TAB PO SCH (21:04)
[2020-01-13] MEDS: HYDRALAZINE HCL 10 MG TABLET PO SCH (21:55)
[2020-01-13] MEDS: AMLODIPINE 5 MG TAB PO SCH (21:55)
[2020-01-13 22:21] LABS: Urine Appearance CLEAR; Urine Bilirubin NEGATIVE (NEG); Urine Blood NEGATIVE (NEG); Urine Color YELLOW; Urine Glucose NEGATIVE (NEG); Urine Protein NEGATIVE (NEG); Urine Urobilinogen 0.2 mg/dL (0.2-1.0)
[2020-01-13 22:22] LABS: Urine Microscopic Reflex NO UMIC
[2020-01-13 23:12] LABS: Troponin I < 0.02 ng/mL (0.0-0.045)
[2020-01-14] MEDS: IPRATROPIUM BROM 0.5MG/2.5ML NEB SCH ×4 (01:10→20:00)
--- NOTE | 2020-01-14 05:13 | HP ---
Date of Admission: 01/13/2020 Chief Complaint: Shortness of breath, chest pain. History Of Present Illness: This is a 54-year-old pleasant male patient who saw bedspread cutter hand, Dr. Ra celeste recently because of ongoing problem with chest pain and shortness of breath. He has also gained about 15 pounds lately, has bilateral leg swelling, and he gets short of breath with any activity in cluding just walking across the room. He gets short of breath. He is also having paroxysmal nocturn al dyspnea and orthopnea and he has been sleeping in upright position lately. After he went to see Caren Garcia, he had an echocardiogram done at his office, and it was reported to have normal ejection f raction and Dr. Garcia admitted him to hospital for a cardiac cath, but he was not able to lay down f lat because of his shortness of breath problem, so cardiac cath procedure was canceled, and the patie nt was admitted to hospital, and I saw him this evening. When I saw him, he was sitting at bedside. Allergies: NO KNOWN ALLERGIES. Medications: List reviewed. Review of Systems: Cardiovascular: As mentioned above. Respiratory: As mentioned above. All other systems reviewed and negative. Social History: Negative for smoking and alcohol use. Family History: Significant for colon cancer, prostate cancer. Past Surgical History: Sinus surgery. Past Medical History: Hypertension, obstructive sleep apnea, cervical spinal stenosis, type 2 diabet es mellitus with hyperglycemia, lumbar radiculopathy, hyperlipidemia, recurrent cellulitis of lower e xtremity. Physical Examination: Vital Signs: Height 5 feet 10 inches, weight 360 pounds, temperature , pulse , r espiratory rate , blood pressure , oxygen saturation . General: Awake, alert, oriented, not in distress. HEENT: Head atraumatic, normocephalic. Conjunctivae nonerythematous. Sclerae white. Mouth, no thr ush or edema noted. Ears/Nose, no mass, lesion, discharge noted. Neck: Supple. No JVD, lymph nodes, bruit, thyromegaly noted. Lungs: Diminished air entry in lower lung ramos. Not using any accessory muscles of respiration. Heart: Normal heart sounds, no murmur or gallop. Abdomen: Soft, protuberant. No guarding, rigidity, tenderness, or distention. Presence of edema of lower abdominal wall. No hepatosplenomegaly. No bruit. Bowel sounds normoacti ve. Extremities: Bilateral grade 2 to grade 3 pedal edema. Skin: No rash, ulcer, cellulitis. Lymphatics: No lymph node enlargement in neck, supraclavicular, infraclavicular region. Neuro: No focal neurological deficit. Chest: Unremarkable. External Genitalia: Deferred. Rectal: Deferred. Laboratory Data: White count today 7.2, hemoglobin 11.5, platelets 247. Sodium 140, potassium 4.3, chloride 107, bicarb 27, BUN 17, creatinine 0.90, glucose 120. Liver function tests unremarkable. T roponin less than . Chest x-ray shows evidence of congestive heart failure. Impression: 1.Congestive heart failure, chronic, diastolic, with acute exacerbation. 2.Rule out coronary artery disease. 3.Hypertension. 4.Hyperlipidemia. 5.Type 2 diabetes mellitus, uncontrolled. 6.Obstructive sleep apnea. 7.Cervical spinal stenosis. 8.Lumbar radiculopathy. Plan: Admit the patient to hospital for further evaluation and management of this problem. The morena ent is appropriate for inpatient and is expected to spend 2 midnights in the hospital. Cardiology co nsultation from Dr. Garcia will be requested. He has requested the patient to be n.p.o. after midnig ht to see if he can do cardiac cath tomorrow depending on the patient's symptoms. On basis of what I see today, I doubt it that he will be able to have cardiac cath procedure done tomorrow, but we will evaluate him in the morning. Lasix 40 mg IV every 12 hours will be given. We will monitor intake, output, daily weight. If cardiac cath cannot be done tomorrow then Dr. Garcia will do the procedure on Friday, and meanwhile, we will continue to try to control his volume status. Monitor intake, outp ut, daily weight. We will monitor his blood work tomorrow morning. Details and plan of treatment di scussed with the patient. Continue home medications per order. We will get fasting lipid profile an d hemoglobin A1c in the morning. WALT/MODL Voice ID: [id number]
[2020-01-14 06:42] LABS: Absolute Lymphocytes (CBC) 1.2 K/uL (0.7-4.9); Hematocrit 36.6 % (39.6-49.0); Lymphocytes % 18.3 % (15.3-44.8); MPV 7.6 fL (7.6-11.3); RBC Red Blood Cell Count 4.61 M/uL (4.33-5.43)
[2020-01-14 07:10] LABS: CKMB Creatine Kinase MB 3.1 ng/mL (0.3-3.6); Troponin I < 0.02 ng/mL (0.0-0.045)
[2020-01-14 07:11] LABS: Albumin 3.6 g/dL (3.4-5.0); Bilirubin Total 0.4 mg/dL (0.2-1.0); Magnesium 2.2 mg/dL (1.8-2.4); Potassium 4.4 mmol/L (3.5-5.1); Protein, Total 7.7 g/dL (6.4-8.2); Thyroid Stimulating Hormone 2.02 uIU/mL (0.360-3.740)
[2020-01-14] MEDS: INSULIN -REGULAR HUMAN 50 UNIT/0.5 ML ML SQ SCH ×4 (07:30→21:39)
[2020-01-14] MEDS: lisinopriL 20 MG TAB PO SCH (08:33)
[2020-01-14] MEDS: AMLODIPINE 5 MG TAB PO SCH ×2 (08:34→21:38)
[2020-01-14] MEDS: METOPROLOL TAR 50 MG TAB PO SCH ×2 (08:34→21:38)
[2020-01-14] MEDS: FUROSEMIDE 40 MG/4 ML VIAL IV SCH ×2 (08:35→18:30)
[2020-01-14] MEDS: DOXAZOSIN 2 MG TAB PO SCH ×2 (08:35→21:38)
[2020-01-14] MEDS: ENOXAPARIN 40 MG/0.4 ML SQ SCH (08:36)
[2020-01-14] MEDS: HYDRALAZINE HCL 10 MG TABLET PO SCH ×2 (08:42→21:38)
--- NOTE | 2020-01-14 12:16 | PN ---
Date of Progress Note: 01/14/2020 Subjective: The patient was seen this morning for followup. He slept in the chair as he said as he was having shortness of breath every time he tried to lie down. Objective: Vital Signs: Reviewed. HEENT: Unremarkable. Lungs: Bilateral good equal air entry. Presence of diminished lower lung field unchanged from yeste rday. Not using any accessory muscles of respiration. Heart: Sounds normal. Abdomen: Soft. Bowel sounds normal. No guarding, rigidity, tenderness. Extremities: Leg edema re tyler unchanged. Laboratory Data: White count 6.7, hemoglobin 11.9, platelets 257. Sodium 141, potassium 4.4, chlori de 106, bicarb 30, BUN 19, creatinine 1.04, glucose 138. Hemoglobin A1c 6.8, total cholesterol 56, L DL 97, HDL 41, triglycerides 91. Impression: 1.Congestive heart failure, chronic, diastolic, with acute exacerbation. 2.Type 2 diabetes mellitus. 3.Hyperlipidemia. 4.Hypertension. 5.Obstructive sleep apnea. Plan: The patient was advised to have someone bring his CPAP from home so he can continue to use it at night time while in the hospital. We will continue IV diuretic therapy. Monitor intake, output, daily weight and monitor electrolytes and renal function. I did talk to emery grinder. His cardiac c ath will be done probably on Friday. Meanwhile, we will try to achieve adequate diuresis. The patient was advised to limit his fluid inta ke to 30 ounces a day. WALT/MODL Voice ID: [id number] Report ID: [id number]
[2020-01-15] MEDS: IPRATROPIUM BROM 0.5MG/2.5ML NEB SCH ×4 (02:30→20:30)
[2020-01-15 06:29] LABS: Magnesium 2.6 mg/dL (1.8-2.4); Potassium 4.2 mmol/L (3.5-5.1)
[2020-01-15] MEDS: INSULIN -REGULAR HUMAN 50 UNIT/0.5 ML ML SQ SCH ×4 (07:30→21:10)
[2020-01-15] MEDS: ENOXAPARIN 40 MG/0.4 ML SQ SCH (08:01)
[2020-01-15] MEDS: METOPROLOL TAR 50 MG TAB PO SCH ×2 (08:02→21:09)
[2020-01-15] MEDS: lisinopriL 20 MG TAB PO SCH (08:02)
[2020-01-15] MEDS: HYDRALAZINE HCL 10 MG TABLET PO SCH ×2 (08:03→21:09)
[2020-01-15] MEDS: DOXAZOSIN 2 MG TAB PO SCH ×2 (08:03→21:09)
[2020-01-15] MEDS: AMLODIPINE 5 MG TAB PO SCH ×2 (08:03→21:09)
[2020-01-15] MEDS: FUROSEMIDE 40 MG/4 ML VIAL IV SCH ×2 (08:04→17:40)
--- NOTE | 2020-01-15 09:40 | PN ---
Date of Progress Note: 01/15/2020 Subjective: The patient was seen this morning for followup. No new complaints or problems reported by him. He was able to lie down for about 5 minutes or so while keeping his bed flat during daytime yesterday and he has been fine off and on. Last night, he slept in the bed probably for the first ti me in last 2-3 weeks or so. He had his head and upper body elevated at about 45 degree angle. Overa ll, he feels better. No new complaints or problems reported. Intake and output records reviewed. Objective: Vital Signs: Reviewed. The patient has lost 8 pounds since the time of admission. His weight today is 352 pounds, upon admission it was 360 pounds. HEENT: Unremarkable. Lungs: Bilateral good equal air entry with diminished air entry in the lower lung region overall jovana t is better. Not using any accessory muscles of respiration. Heart: Sounds normal. Abdomen: Soft. Bowel sounds normal. No guarding, rigidity, tenderness, distention. Still has some edema of lower abdominal wall. Extremities: Bilateral leg edema present, but it is better than before. Laboratory Data: Sodium 140, potassium 4.2, chloride 104, bicarb 31, BUN 19, creatinine 1.05, glucos e 124, and magnesium 2.6. Impression: 1.Congestive heart failure, chronic, diastolic, with acute exacerbation. 2.Hypertension. 3.Hyperlipidemia. 4.Obstructive sleep apnea. 5.Diabetes mellitus. Plan: We will continue current medications. Continue current diabetes medications, IV Lasix. Monit or intake and output, daily weight, and we will monitor electrolytes tomorrow. I have encouraged susan green to keep trying during day time while he is awake to see if he can lie down in a flat supine position as long as possible. Hopefully, we can get him ready for card iac cath to be done on Friday. WALT/MODL Voice ID: [id number] Report ID: [id number]
[2020-01-15 13:30] VITALS: BMI 50.5
[2020-01-16] MEDS: IPRATROPIUM BROM 0.5MG/2.5ML NEB SCH ×4 (01:50→19:25)
[2020-01-16 06:25] LABS: Absolute Lymphocytes (CBC) 1.5 K/uL (0.7-4.9); Basophils % 0.9 % (0-1.3); Hematocrit 36.9 % (39.6-49.0); Lymphocytes % 21.3 % (15.3-44.8); MPV 8.1 fL (7.6-11.3)
[2020-01-16 06:37] LABS: Magnesium 2.5 mg/dL (1.8-2.4); Potassium 4.2 mmol/L (3.5-5.1)
[2020-01-16] MEDS: INSULIN -REGULAR HUMAN 50 UNIT/0.5 ML ML SQ SCH ×4 (07:30→21:10)
[2020-01-16] MEDS: DOXAZOSIN 2 MG TAB PO SCH ×2 (08:11→21:09)
[2020-01-16] MEDS: ENOXAPARIN 40 MG/0.4 ML SQ SCH (08:11)
[2020-01-16] MEDS: METOPROLOL TAR 50 MG TAB PO SCH ×2 (08:11→21:09)
[2020-01-16] MEDS: FUROSEMIDE 40 MG/4 ML VIAL IV SCH ×2 (08:11→17:00)
[2020-01-16] MEDS: HYDRALAZINE HCL 10 MG TABLET PO SCH ×2 (08:11→21:20)
[2020-01-16] MEDS: AMLODIPINE 5 MG TAB PO SCH ×2 (08:12→21:10)
[2020-01-16] MEDS: lisinopriL 20 MG TAB PO SCH (08:12)
--- NOTE | 2020-01-16 19:30 | PN ---
Date of Progress Note: 01/16/2020 Subjective: The patient was seen this morning for followup. He was sitting at bedside, says that he tried to lie down in supine position and was able to stay there in about for 15 minutes or so. Last night, he did use his CPAP and was able to use it for about 4 hours. No new complaints or problems reported. Objective: Vital Signs: Reviewed. HEENT: Unremarkable. Lungs: Bilateral good equal air entry. The patient does have improved air exchange in lower lung fi elds today compared to before, not using any accessory muscles of respiration. No crackles. No whee zing. Cardiac: Heart sounds normal. Abdomen: Soft. Bowel sounds normal. No guarding, rigidity, tenderness, or distention. Presence of abdominal wall edema in the lower abdominal wall present, better than before. Extremities: Bilateral leg edema present, but better than before. Laboratory Data: White count 7.1, hemoglobin 12, platelets 260. Sodium 141, potassium 4.2, chloride 105, bicarb 31, BUN 20, creatinine 1.06 glucose 136. Impression: 1.Congestive heart failure, chronic, diastolic, with acute exacerbation. 2.Hypertension. 3.Hyperlipidemia. 4.Diabetes mellitus. Plan: We will continue current medication. We will continue current Lasix. The patient has lost ab out 12 pounds as of today since the time of admission and we will continue diuretic therapy as he is responding very well. We will repeat blood work tomorrow morning, keep him n.p.o. after midnight, an d we will follow up with operater. Depending on the patient's symptoms, operater will decide whether he can have cardiac cath tomorrow or day after tomorrow. Details were discussed with the patient. WALT/MODL Voice ID: [id number] Report ID: [id number]
[2020-01-17] MEDS: IPRATROPIUM BROM 0.5MG/2.5ML NEB SCH ×4 (02:30→20:00)
[2020-01-17] MEDS: DOXAZOSIN 2 MG TAB PO SCH ×2 (06:13→22:11)
[2020-01-17] MEDS: AMLODIPINE 5 MG TAB PO SCH ×2 (06:13→22:11)
[2020-01-17] MEDS: METOPROLOL TAR 50 MG TAB PO SCH ×3 (06:14→22:11)
[2020-01-17] MEDS: lisinopriL 20 MG TAB PO SCH (06:14)
[2020-01-17] MEDS: HYDRALAZINE HCL 10 MG TABLET PO SCH ×2 (06:19→22:11)
[2020-01-17 06:57] LABS: Magnesium 2.5 mg/dL (1.8-2.4); Potassium 3.8 mmol/L (3.5-5.1)
[2020-01-17] MEDS: INSULIN -REGULAR HUMAN 50 UNIT/0.5 ML ML SQ SCH ×4 (07:30→22:12)
[2020-01-17] MEDS: FUROSEMIDE 40 MG/4 ML VIAL IV SCH ×2 (08:25→16:33)
[2020-01-17] MEDS: ENOXAPARIN 40 MG/0.4 ML SQ SCH (08:26)
[2020-01-17] MEDS ORDERED: POTASSIUM CL SA 10 MEQ TAB PO ONE (08:29)
[2020-01-17] MEDS ORDERED: POTASSIUM 25 MEQ EFFERV TAB PO ONE (09:00)
[2020-01-17] MEDS ORDERED: LIDOCAINE 1% 20 ML MDV ONE (12:02)
[2020-01-17] MEDS ORDERED: HEPA 1000U/500MLS 2,000 UNIT/1,000 ML BAG IV ONE (12:02)
[2020-01-17] MEDS ORDERED: HEPARIN 5000 UNIT/ML 1 ML VIAL ONE (12:02)
[2020-01-17] MEDS ORDERED: HEPARIN 10,000 UNIT/10 ML VIAL IV ONE (12:03)
[2020-01-17] MEDS ORDERED: FENTANYL CITR 100 MCG/2 ML ONE (12:03)
[2020-01-17] MEDS ORDERED: ATROPINE SULF 1 MG/10 ML SYR IV ONE (12:03)
[2020-01-17] MEDS ORDERED: NICARDIPINE HCL 25 MG/10 ML IV ONE (12:03)
[2020-01-17] MEDS ORDERED: MIDAZOLAM HCL 2 MG/2 ML INJ ONE (12:03)
[2020-01-17] MEDS ORDERED: NITROGLYCERIN 100 MCG/ML SYR (for cath lab use only) IV ONE (12:03)
[2020-01-17] MEDS ORDERED: NA CHLORIDE 0.9% 500 ML ONE ×2 (12:09→12:37)
[2020-01-17] MEDS ORDERED: NA CHLORIDE 0.9% 100 ML IV ONE (12:36)
[2020-01-17 13:32] LABS: Arterial Blood Carboxyhemoglob 1.6 % (0-1.5); Blood Gas Oxyhemoglobin 73.3 % (94-97); Blood O2 Saturation 75.3 % (92-98.5)
[2020-01-17 13:32] LABS: Arterial Blood Carboxyhemoglob 1.7 % (0-1.5); Blood Gas Oxyhemoglobin 95.3 % (94-97); Blood O2 Saturation 97.9 % (92-98.5)
[2020-01-17] MEDS ORDERED: HYDRALAZINE HCL 20 MG/ML VIAL IV ONE (17:45)
--- NOTE | 2020-01-18 00:27 | PN ---
Date of Progress Note: 01/17/2020 Subjective: The patient was seen this morning for followup. No new complaints or problems reported by the patient. Sitting in bed, not in distress. He reported that yesterday during daytime, he trie d staying in supine position and he had no problem doing that and all night he stayed in supine posit ion without any difficulty breathing. Objective: Vital Signs: Reviewed. HEENT: Unremarkable. Lungs: Clear to auscultation. No wheezing. No rales. Heart: Sounds normal. Abdomen: Soft. Bowel sounds normal. No guarding, rigidity, tenderness, or distention. Extremities: Bilateral trace leg edema, overall much better than before. Laboratory Data: Labs reviewed. Intake and output records reviewed. His weight today was 360 pound s when he came in. Sodium today 139, potassium 3.8, chloride 105, bicarb 30, BUN 21, creatinine 1.07 , glucose 152. Impression: 1.Congestive heart failure, chronic, diastolic, with acute exacerbation. 2.Coronary artery disease. 3.Pulmonary hypertension. 4.Hyperlipidemia. 5.Diabetes mellitus. Plan: We will continue current medication. We will continue current IV Lasix. The patient had a ca rdiac cath done today, showed about 50% stenosis of RCA and LAD. So at this point, medical managemen t will be provided. Details were discussed with resaw carriage operator and the patient still needs some IV diu retic therapy and we will continue that. I will re-evaluate him tomorrow. Possible discharge to go home tomorrow depending on his condition. The patient will follow up with me and resaw carriage operator on outpatient basis. WALT/MODL Voice ID: [id number] Report ID: [id number]
[2020-01-18] MEDS: IPRATROPIUM BROM 0.5MG/2.5ML NEB SCH ×2 (00:45→08:25)
--- NOTE | 2020-01-18 00:51 | OP ---
Date of Procedure: 01/17/2020 Surgeon: NIYAH CEDILLO Procedures Performed: 1.Selective coronary angiogram. 2.Left heart catheterization. 3.Right heart catheterization. Indications: 1.Unstable angina. 2.Acute heart failure. Access: Right radial artery 6-Libyan, closed with TR band; right IJ 7-Libyan, closed with minimal pr essure. Total Sedation Time: 35 minutes. Complications: None. Bleeding: Less than 10 mL. Description Of Procedure: After risks, benefits, and alternatives were explained to the patient, he agreed to the procedure and signed informed consent. The patient was brought into the cardiac cathet erization laboratory, prepped and draped in usual sterile fashion, and then we accessed right radial artery using a pediatric micropuncture kit and placed a 6-Libyan slender sheath. Then, we accessed t he right IJ under the ultrasound guidance and introduced a 7-Libyan sheath, and both sheaths were flu shed and secured in place. Then, we proceeded to do right heart catheterization by introducing 7-[place] formerly [facility] [place] catheter into the right atrium, then the right ventricle, then the PA. Then, the wedge pres sure was obtained in each location. Then, we took PA saturation and aortic saturation to calculate F ick cardiac output. I then removed the [place] catheter, then proceeded for the coronary angiogram by i ntroducing a 5-[place] catheter into the aortic root over a J-wire, engaged left main coronary a rtery and then the right coronary artery, and obtained standard views. Findings: 1.Left main is large and normal. 2.LAD has proximal 40% stenosis and mid 50% stenosis. Both lesions need FFR for evaluation. 3.Left circumflex mild diffuse disease, 10-20%. 4.RCA proximal 50% stenosis. Needs evaluation by FFR as well. Intervention Details: The right heart catheterization numbers, the RA pressure was 20, RV pressure w as 49/13 with a mean of 19, PA pressure was 44/28 with a mean of 34, which is moderate and pulmonary wedge was 25. We advanced the catheter into the LV over the J-wire and obtained the LVEDP, which was 25 mmHg. Pullback did not show any difference in pressure. Impression: 1.Moderate left anterior descending and right coronary artery stenosis, needs further evaluation by FFR. 2.Still significantly elevated right and left filling pressures and need further IV diuresis. Recommendations: Continue IV diuretics for at least 1 more day and then once patient is discharged, I will follow him up as an outpatient and set him up for FFR of LAD and RCA. SR/MODL Voice ID: [id number] Report ID: [id number]
[2020-01-18 07:02] LABS: Magnesium 2.5 mg/dL (1.8-2.4); Phosphorus 2.8 mg/dL (2.5-4.9); Potassium 4.2 mmol/L (3.5-5.1)
[2020-01-18] MEDS: INSULIN -REGULAR HUMAN 50 UNIT/0.5 ML ML SQ SCH (07:30)
[2020-01-18] MEDS: DOXAZOSIN 2 MG TAB PO SCH (07:59)
[2020-01-18] MEDS: ENOXAPARIN 40 MG/0.4 ML SQ SCH (07:59)
[2020-01-18] MEDS: METOPROLOL TAR 50 MG TAB PO SCH (08:00)
[2020-01-18] MEDS: HYDRALAZINE HCL 10 MG TABLET PO SCH (08:00)
[2020-01-18] MEDS: AMLODIPINE 5 MG TAB PO SCH (08:01)
[2020-01-18] MEDS: lisinopriL 20 MG TAB PO SCH (08:01)
[2020-01-18] MEDS: FUROSEMIDE 40 MG/4 ML VIAL IV SCH (08:01)
[2020-01-18 08:02] VITALS: BP 158/73
[2020-01-18 08:41] VITALS: TEMP 97.3
[2020-01-18 09:32] VITALS: O2SAT 98
--- NOTE | 2020-01-19 02:51 | DS ---
Date of Discharge: 01/18/2020 Disposition: Discharged to go home. Physical Examination: HEENT: Unremarkable. Lungs: Clear to auscultation. Heart: Sounds normal. Abdomen: Soft. Bowel sounds normal. No guarding, rigidity, tenderness, or distention. Extremities: Trace leg edema. Discharge Medications And Instructions: 1.Continue all prior home medications except reduce dose of insulin and take only 10 units 3 times a day with meal. 2.Stop glimepiride. 3.Take furosemide 40 mg 2 times a day. 4.Resume metformin as of tomorrow. 5.Follow up at my office next week and follow up with makeup sales advisor in 2 weeks. 6.Follow up with your cabin agent next week. 7.Check fingerstick blood sugar readings before each meal, record it, and follow up with endocrinolo gist. Laboratory Data: Labs done during this hospitalization. On 01/12/2020, white count 7.1, hemoglobin 11.8, platelets 268. On 01/16/2020, white count 7.1, hemoglobin 12, platelets 260. Last chemistry t [place], sodium 139, potassium 4.2, chloride 105, bicarb 28, BUN 22, creatinine 1.08, glucose 139. Hemo globin A1c during this admission 6.8. Troponin less than 0.02. LDL was 41, total cholesterol 156, t riglycerides 91. TSH 2.02. Hospital Course: This is a 54-year-old pleasant male patient, admitted to the hospital with complain ts of chest pain and shortness of breath. Please see dictated H and P for more information. After t he patient was admitted to the hospital, he was started on IV diuretic therapy, Lasix 40 mg IV every 12 hours. He diuresed very well and responded very well. His shortness of breath problem improved. He had significant paroxysmal nocturnal dyspnea and orthopnea and that problem actually resolved whe re he was able to sleep in supine position flat in the bed without raising his head. Yesterday, he w as able to have cardiac cath as recommended by makeup sales advisor, which showed about 50% stenosis of RCA a nd LAD. He did not require any kind of intervention for that. He has lost approximately 17 pounds w eight during this hospital stay. It was 360 pounds when he came in and last weight was 343 pounds. During this hospital stay for diabetes, we managed him with sliding scale insulin. He did not get hi s glimepiride or metformin and he did not receive his Humalog insulin that he takes 75 units 3 times a day. I had a long discussion with him today, explained it to him that his diabetes while in the spital with the least amount of medication is under very good control and he needs to continue same t ype of diet control at home that he was following here in the hospital and hopefully he can control h is diabetes with much less medication. If he continues to follow the same diet that he has been doin g in the hospital and if he ends up using same level of medications for diabetes at home, then I am a fraid that he will have hypoglycemia problem. So, proactively, I have advised him to stop his glimep iride and reduce his insulin dose to 10 units 3 times a day. Record blood sugar before each meal and follow up with his cabin agent next week. Weight loss was recommended. The patient is feeling much better and was discharged to go home in stable condition. Final Diagnoses: 1.Congestive heart failure, chronic, diastolic, with acute exacerbation. 2.Coronary artery disease. 3.Hypertension. 4.Hyperlipidemia. 5.Type 2 diabetes mellitus. 6.Obstructive sleep apnea. 7.Cervical spinal stenosis. 8.Lumbar radiculopathy. WALT/MODL Voice ID: [id number] Report ID: [id number]
== END 2020-01-18 09:54 | disposition home or self-care (01) | DRG 287 ==
LOC: CCL 11:33 → 2ND 14:09 → OBSVTOIN 14:09
PROVIDERS: ADMIT Internal Medicine; ATTEND Internal Medicine
PROC: 4A023N8 Measurement of Cardiac Sampling and Pressure, Bilateral, Percutaneous Approach (ICD-10-PCS; principal; 2020-01-17)
PROC: B2111ZZ Fluoroscopy of Multiple Coronary Arteries using Low Osmolar Contrast (ICD-10-PCS; 2020-01-17)
DX: I11.0 Hypertensive heart disease with heart failure (principal); I50.33 Acute on chronic diastolic (congestive) heart failure; E78.5 Hyperlipidemia, unspecified; G47.33 Obstructive sleep apnea (adult) (pediatric); M48.02 Spinal stenosis, cervical region; E11.9 Type 2 diabetes mellitus without complications; M54.16 Radiculopathy, lumbar region; I25.10 Atherosclerotic heart disease of native coronary artery without angina pectoris; I27.20 Pulmonary hypertension, unspecified; R06.00 Dyspnea, unspecified; R06.02 Shortness of breath; R06.01 Orthopnea; Z20.828 Contact with and (suspected) exposure to other viral communicable diseases
CPT/HCPCS: 36415; 71045; 71046; 80048; 80053; 80061; 81003; 82553; 82805; 82947; 83036; 83605; 83735; 83880; 84100; 84443; 84484; 85025; 85610; 85730; 93460; 94640; 94760; C1893; J0360; J1644; J1650; J1940; J2250; J3010; J7040; U0002

== ENCOUNTER 2020-09-14 09:55 | Emergency (ER) | payer BC ==
--- OUTSIDE RECORDS SUMMARY | 2020-09-14 10:06 | XMS REPORT | Continuity of Care Document ---
:1965 Author Organization [facility] t Address [address] [place] [address] Care Team Providers Name Role Phone Only, Adc Test Attending Clinician Unavailable Doctor Unassigned, Name Attending Clinician Unavailable Wilbert AMBROSE Attending Clinician Rody Lau Attending Clinician Joey Jesus Attending Clinician Vandana Kowalski Attending Clinician TARAPASADE Attending Clinician Unavailable BUSUEGO Attending Clinician Unavailable TARAPASADE Admitting Clinician Unavailable BUSUEGO Admitting Clinician Unavailable Payers Payer Name Policy Type Policy Number Effective Date Expiration Date S ource Problems Condition Condition Condition Status Onset Resolution Last Treating Co mments Source Name Details Category Date Date Treatment Clinician Date LUMBAR Diagnosis Active 2016-052017-04-29 Mem oria STENOSIS 1-14 09:02:00 l LUMBAR 00:00: Mitesh STENOSIS 00 Active 04/08/2017 [facility] M54.16 Diagnosis Active 2016-052017-03-19 Mem oria 0-25 10:29:00 l M54.16 00:00: Mitesh 00 Active 03/19/2017 [facility] Abdominal Problem Resolve 2017-12-07 M emoria pain d 00:03:51 l (finding) Mitesh Abdominal pain (finding) Resolved Problem 12/07/2017 [facility] Chest pain Problem Resolve 2017-12-07 Memoria (finding) d 00:03:51 l Chest Mitesh pain (finding) Resolved Problem 12/07/2017 [facility] Chronic Problem Resolve 2017-12-07 Mem oria back pain d 00:03:51 l (disorder) Chronic Her mauricio back pain (disorder) Resolved Problem 12/07/2017 [facility] Diabetes Problem Active 2017-12-07 Mem oria mellitus 00:03:51 l (disorder) Diabetes He rmann mellitus (disorder) Active Problem 12/07/2017 [facility] Hyperchole Problem Active 2017-12-07 M emoria sterolemia 00:03:51 l (disorder) Gabo n Hyperchole sterolemia (disorder) Active Problem 12/07/2017 [facility] Hypertensi Problem Active 2017-12-07 M emoria ve 00:03:51 l disorder, [place] systemic Hypertensi arterial ve (disorder) disorder, systemic arterial (disorder) Active Problem 12/07/2017 [facility] Morbid Problem Active 2017-12-07 Memor ia obesity 00:03:51 l (disorder) Morbid Herm chacorta obesity (disorder) Active Problem 12/07/2017 [facility] Prolapsed Problem Active 2017-12-07 Me moria lumbar 00:03:51 l interverte Gabo n bral disc Prolapsed (disorder) lumbar interverte bral disc (disorder) Active Problem 12/07/2017 [facility] Allergies, Adverse Reactions, Alerts Allergy Allergy Status Severity Reaction(s) Onset Inactive Treating Comm ents Source Name Type Date Date Clinician No Known DA Active [facility]ie 02-01 [place] s 00:00: Health 00 [facility] Social History Smoking Status Start Date Stop Date Source Social History 2017-06-05 17:47:50 2017-06-05 17:47:50 [facility] Mitesh Medications Ordered Filled Start Stop Current Ordering Indication Dosage Frequency Signature Comments Components Source Medication Medication Date Date Medication? Clinician (SIG) Name Name amitriptyli 2016-05 Yes 10 mg = 1 M emoria ne 10 mg 2-01 tab, PO, l oral tablet 14:52: Bedtime, 4 [place] 00 tabs at bedtime for 1 week then 5 tabs at bedtime thereafter , # 150 tab, 2 Refill(s), Pharmacy: [facility] [id number] diclofenac 2016-05 Yes 75 mg = 1 Me moria sodium 75 2-01 tab, PO, l mg oral 14:52: BID, PRN Gabo n enteric 00 Pain Score coated, 7-10, # 60 delayed-rel tab, 2 ease tablet Refill(s), Pharmacy: [facility] 8 Cyclobenzap 2016-05 Yes 10 mg = 1 M emoria rine 2-01 tab, PO, l hydrochlori 14:52: BID, # 60 H ermann de 10 MG 00 tab, 2 Oral Tablet Refill(s), [Flexeril] Pharmacy: [facility] Sodium 2016-05 Yes 4.2 mL, Memoria Chloride 2- Route: l 14:50: EPIDURAL, [place] 00 Dosing Weight 141.364, kg, ONCE, (Preservat liliana Free), Start date: 04/25/17 8:50:00 SCOUT, Stop date: 04/25/17 8:50:00 SCOUT Lidocaine 2016-05 Yes 3 mL, Memoria Hydrochlori 2- Route: l de 10 MG/ML 14:50: SUB-Q, Herm chacorta Injectable 00 Dosing Solution Weight 141.364, kg, ONCE, (Preservat liliana Free), Start date: 04/25/17 8:50:00 SCOUT, Stop date: 04/25/17 8:50:00 SCOUT Omnipaque 2016- Yes 2 mL, Memoria 300 2- Route: l 14:50: EPIDURAL, [place] 00 Dosing Weight 141.364, kg, ONCE, (Preservat liliana Free), Start date: 04/25/17 8:50:00 SCOUT, Stop date: 04/25/17 8:50:00 SCOUT Dexamethaso 2016-05 Yes 8 mg, Memor ia ne 2- Route: l 14:50: EPIDURAL, [place] 00 ONCE, Dosing Weight 141.364, kg, (Preservat liliana Free), Start date: 04/25/17 8:50:00 SCOUT, Stop date: 04/25/17 8:50:00 SCOUT Bupivacaine 2017-1 Yes 2 mL, Memor ia Hydrochlori 2- Route: l de 2.5 14:50: EPIDURAL, Gabo n MG/ML 00 Dosing Injectable Weight Solution 141.364, kg, ONCE, (Preservat liliana Free), Start date: 04/25/17 8:50:00 SCOUT, Stop date: 04/25/17 8:50:00 SCOUT Vital Signs Vital Name Observation Time Observation Value Comments Source Height 2017-06-05 17:46:00 177.8 cm [facility] [place] Weight 2017-06-05 17:46:00 [facility] Mites[facility] BMI Calculated 2017-06-05 17:46:00 Memori al [place] Systolic (mm Hg) 2017-06-05 17:46:00 Chuck rial [place] Diastolic (mm Hg) 2017-06-05 17:46:00 Mem orial Mitesh Temperature Oral (F) 2017-06-05 17:46:00 99.3 F [facility] [place] Heart Rate 2017-06-05 17:46:00 [facility] [place] BMI Calculated 2017-04-29 15:23:00 Memori al [place] Weight 2017-04-29 15:23:00 [facility] Height 2017-04-29 15:23:00 177.8 cm [facility] [place] Heart Rate 2017-04-29 15:00:00 [facility] Respitory Rate 2017-04-29 15:00:00 Memori al [place] Systolic (mm Hg) 2017-04-29 15:00:00 Chuck rial [place] Diastolic (mm Hg) 2017-04-29 15:00:00 Mem orial [place] Procedures Procedure Date / Time Performed Performing Clinician [facility] e Myelography via lumbar 2017-04-29 16:14:00 Memor ial [place] injection, including radiological supervision and interpretation; thoracic Myelography via lumbar 2017-04-29 16:14:00 Memor ial Mitesh injection, including radiological supervision and interpretation; lumbosacral NJX INTERLAMINAR LMBR/SA 2017-04-25 14:50:00 Mem orial [place] Ear operations [facility] [place] Lumbar epidural injection Memori al [place] Lumbar epidural steroid [facility] [place] injection Nose operation [facility] [place] Operation [facility] Encounters Start End Encounter Admission Attending Care Care Encounter Source Date/Time Date/Time Type Type Clinicians Facility Department ID 2020-02-02 2020-02-02 Laboratory Only, Adc [facility] [id number] 11:14:48 11:29:48 Only Test [place] [id number] [place] [id number] [place] [id number] 2020-02-02 2020-02-02 Orders Doctor DULCE [id number] 00:00:00 00:00:00 Only Unassigned, [place] [id number] [place] [facility] [id number] [id number] 2020-01-05 2020-01-05 Telephone Atkins, [facility] [id number] 00:00:00 00:00:00 [place] [id number] [place] [id number] [place] [id number] [address] 2019-06-16 2019-06-16 Telephone Atkins, [facility] [id number] 00:00:00 00:00:00 [place] [id number] [place] [id number] Professio [id number] [address] 2019-06-09 2019-06-09 Telephone Atkins, [facility] [id number] 00:00:00 00:00:00 [place] [id number] [place] [id number] Professio [id number] [address] 2019-02-10 2019-02-10 Telephone Atkins, [facility] [id number] 00:00:00 00:00:00 [place] [id number] [place] [id number] Professio [id number] [address] 2018-12-13 2018-12-13 Orders Doctor CARDONA [id number] 00:00:00 00:00:00 Only Unassigned, [place] [id number] [place] [facility] [id number] [id number] 2018-11-27 2018-11-27 Marlon Atkins [facility] [id number] 00:00:00 00:00:00 Anupam [place] [id number] [place] [id number] [place] [id number] [address] 2017-12-04 2017-12-04 Outpatient Dulce Lau [facility] [id number] 10:30:00 10:30:00 C 07 2017-06-06 2017-06-07 Outpatient M[facility]ER M[facility] [id number] 14:31:00 23:59:59 09 2017-06-06 2017-06-07 Outpatient MHMISCHER M[facility]ISCHER [id number] 14:31:00 23:59:59 09 2017-06-05 2017-06-05 Outpatient Dulce Lau [facility] M[facility] [id number] 11:30:00 23:59:59 C 05 2017-06-05 2017-06-05 Outpatient Dulce Lau [facility] M[facility]ER [id number] 11:30:00 23:59:59 C 05 2017-04-30 2017-05-01 Outpatient MHMISCHER MHMISCHER [id number] 11:52:00 23:59:59 08 2017-04-29 2017-04-29 Outpatient Dulce Lau [facility] [id number] 08:20:00 23:59:00 C 00 2017-04-25 2017-04-25 Outpatient Edin [facility] M[facility] [id number] 08:00:00 23:59:59 Camacho Cook 06 2017-04-24 2017-04-25 Outpatient MHMISCHER M[facility]ER [id number] 16:30:00 23:59:59 07 2017-04-24 2017-04-25 Outpatient MHMISCHER MHMISCHER [id number] 16:27:00 23:59:59 06 2017-03-19 2017-03-19 Outpatient Manjinder Kowalski [facility] [id number] 10:22:00 23:59:00 Vandana 98 Results Test Description Test Time Test Comments Results Result Comments Source GLUBED 2020-02-08 15:58:00 Test Item Value Reference Range Interpretation Comme nts GLUBED (test code = GLUBED) 147 MG/DL 70-105 H [id number] 16:42:00 Test Item Value Reference Range Interpretation Comments PTT (test code = PTT) 29.4 s 22.9-35.8 [facility] [id number] 16:42:00 Test Item Value Reference Range Interpretation Comments PT (test code = PT) 12.8 s 12.0-14.7 [facility] [id number] 16:42:000.96[facility] HermannCHEM PANEL 2017-04-29 15:26:0095[facility] HermannCHEM [id number] 15:26:000.92[facility] HermannCHEM [id number] 15:26:0021[facility] NpzeslnXGUIRWSJTH9133-76-25 15:26:0084.7[facility] YnbkamlKHTEMVSWSD6924-42-26 15:26:0041.3[facility] Mitesh [id number] 15:26:00 Test Item Value Reference Range Interpretation Comments MCH (test code = MCH) 27.9 pg 27.0-31.0 [facility] [id number] 15:26:0032.9[facility] HermannHEMATOLOGY 2017-04-29 15:26:007.2[facility] DxygowlYUPGXOPLWU8793-18-27 15:26:004.87[facility] WpisqdkMNXNDYMAWT1245-53-31 15:26:0013.6[facility] [id number] 15:26:0016.1[facility] [id number] 15:26:25233Nknjkmxq [place] [id number] 15:26:008.0[facility] [id number] 05:57:00 Test Item Value Reference Range Interpretation [...] 4 - SerumAlbu min)] EGFR if >60 Mong[place] (test code mL/min/1.73m\\ = EGFRAA) S\\2 EGFR if Non- >60 Estimate d Glomerular Mongolian (test code mL/min/1.73m\\ Filtrat ion Rate (eGFR) [...] c hronic kidney failure. CBC WITH AUTO [id number] 05:42:00 Test Item Value Reference Range Interpretation [...] code = 1.0 % 0.0-0.4 H IG%) [id number] 05:53:00 Test Item Value Reference Range Interpretation [...] 4 - SerumAlbu min)] EGFR if >60 [place] (test code mL/min/1.73m\\ = EGFRAA) S\\2 EGFR if Non- >60 Estimate d Glomerular Mongolian (test code mL/min/1.73m\\ Filtrat ion Rate (eGFR) [...] c hronic kidney failure. CBC WITH AUTO [id number] 05:27:00 Test Item Value Reference Range Interpretation [...] code = 1.7 % 0.0-0.4 H IG%) [id number] 04:36:00 Test Item Value Reference Range Interpretation [...] 4 - SerumAlbu min)] EGFR if >60 [place] (test code mL/min/1.73m\\ = EGFRAA) S\\2 EGFR if Non- >60 Estimate d Glomerular Mongolian (test code mL/min/1.73m\\ Filtrat ion Rate (eGFR) [...] c hronic kidney failure. CBC WITH AUTO [id number] 04:14:00 Test Item Value Reference Range Interpretation [...] code = 1.9 % 0.0-0.4 H IG%) [id number] 04:40:00 Test Item Value Reference Range Interpretation [...] 4 - SerumAlbu min)] EGFR if >60 [place] (test code mL/min/1.73m\\ = EGFRAA) S\\2 EGFR if Non- >60 Estimate d Glomerular Mongolian (test code mL/min/1.73m\\ Filtrat ion Rate (eGFR) [...] c hronic kidney failure. CBC WITH AUTO [id number] 04:09:00 Test Item Value Reference Range Interpretation [...] = 2.4 % 0.0-0.4 H IG%) CULTURE, [id number] 06:50:00To start 15mins after 1st cultureSpecimen: BloodCollected: 01/18/2017 04:05 Status: Final Last Updated: 01/23/2017 06:49 (1) To start 15mins after 1st culture Culture Result (Final) (Final) No Growth After 5 DaysCULTURE, [id number] 06:50:00Specimen: BloodCollected: 01/18/2017 03:55 Status: Final Last [...] code = 3.4 % 0.0-0.4 H IG%) [id number] 04:19:00 Test Item Value Reference Range Interpretation [...] 4 - SerumAlbu min)] EGFR if >60 [place] (test code mL/min/1.73m\\ = EGFRAA) S\\2 EGFR if Non- >60 Estimate d Glomerular Mongolian (test code mL/min/1.73m\\ Filtrat ion Rate (eGFR) [...] c hronic kidney failure. CBC WITH AUTO [id number] 04:57:00 Test Item Value Reference Range Interpretation [...] 4.0 % 0.0-0.4 H IG%) CBC AUTO [id number] 04:35:00 Test Item Value Reference Range Interpretation [...] 4 - SerumAlbu min)] EGFR if >60 [place] (test code mL/min/1.73m\\ = EGFRAA) S\\2 EGFR if Non- >60 Estimate d Glomerular Mong[place] (test code mL/min/1.73m\\ Filtrat ion Rate (eGFR) [...] c hronic kidney failure. CBC WITH AUTO [id number] 05:01:00 Test Item Value Reference Range Interpretation [...] 4.5 % 0.0-0.4 H IG%) CBC AUTO [id number] 04:56:00 Test Item Value Reference Range Interpretation [...] 4 - SerumAlbu min)] EGFR if >60 [place] (test code mL/min/1.73m\\ = EGFRAA) S\\2 EGFR if Non- >60 Estimate d Glomerular [place] (test code mL/min/1.73m\\ Filtrat ion Rate (eGFR) [...] c hronic kidney failure. CBC WITH AUTO [id number] 05:57:00 Test Item Value Reference Range Interpretation [...] code = 4.8 % 0.0-0.4 H IG%) [id number] 05:41:00 Test Item Value Reference Range Interpretation Comments Magnesium (test code = MG) 2.0 mg/dl 1.6-2.3 [id number] 05:41:00 Test Item Value Reference Range Interpretation [...] 4 - SerumAlbu min)] EGFR if >60 [place] (test code mL/min/1.73m\\ = EGFRAA) S\\2 EGFR if Non- >60 Estimate d Glomerular Mong[place] (test code mL/min/1.73m\\ Filtrat ion Rate (eGFR) [...] of c hronic kidney failure. LACTIC ACID [id number] 06:43:00 Test Item Value Reference Range Interpretation Comments LACTATE (test code = LAC) 0.9 mmol/l 0.7-2.0 GLYCOSALATED [id number] 05:41:00 Test Item Value Reference Range Interpretation Comments Hemoglobin A1C (test 9.06 % 4.3-6.0 A code = GLYCO) Mean Plasma Glucose 245 mg/dl 90-180 WHEN BONIFACIO T RESULTS FOR (test code = MPG) A1C EXCEED 14.0, THE LINEAR LIMIT OF THE INSTRUMENT, THE CALCULATED RESU LT FOR THE MEAN GLUCOS E IS NOT RELIABLE. CORONARY [id number] 05:09:00 Test Item Value Reference Range Interpretation [...] (test code = 37 mg/dl 30-60 VLDL) [id number] 04:51:00 Test Item Value Reference Range Interpretation Comments Magnesium (test code = MG) 2.1 mg/dl 1.6-2.3 [id number] 04:51:00 Test Item Value Reference Range Interpretation Comments CPK (test code = CPK) 93 U/L 30-135 LIPASE, [id number] 04:43:00 Test Item Value Reference Range Interpretation Comments Lipase (test code = LIPA) 116 U/L 8-223 [id number] 04:43:00 Test Item Value Reference Range Interpretation [...] 4 - SerumAlbu min)] EGFR if >60 [place] (test code mL/min/1.73m\\ = EGFRAA) S\\2 EGFR if Non- >60 Estimate d Glomerular Mong[place] (test code mL/min/1.73m\\ Filtrat ion Rate (eGFR) [...]
[2020-09-14 10:54] LABS: Absolute Lymphocytes (CBC) 0.7 K/uL (0.7-4.9); Basophils % 0.4 % (0-1.3); Hematocrit 32.4 % (39.6-49.0); Lymphocytes % 7.5 % (15.3-44.8); MPV 7.4 fL (7.6-11.3); RBC Red Blood Cell Count 4.02 M/uL (4.33-5.43)
[2020-09-14 11:09] LABS: Albumin 3.3 g/dL (3.4-5.0); Bilirubin Direct 0.2 mg/dL (0-0.2); Bilirubin Total 0.6 mg/dL (0.2-1.0); Protein, Total 7.5 g/dL (6.4-8.2)
[2020-09-14 11:33] LABS: SARS-COV-2 RT PCR NEGATIVE (NEGATIVE)
--- NOTE | 2020-09-14 12:01 | EDPHYS ---
Physician Documentation [facility] Name: Nicola Harvey Age: 55 yrs Sex: Male : 1965 Arrival Date: 09/14/2020 Time: 09:56 Bed 2 Private MD: ED Physician Asael Bernal HPI: 09/14 10:42 This 55 yrs old Male presents to ER via Ambulatory with complaints of chills, rn Fever. 10:42 The patient reports fever, that was measured at 102 degrees Fahrenheit. Onset: The rn symptoms/episode began/occurred yesterday. Modifying factors: there are no obvious modifying factors. Associated signs and symptoms: Pertinent positives: chills, myalgias, Pertinent negatives: abdominal pain, chest pain, cough, diarrhea, headache, hemoptysis, runny nose, skin rash, shortness of breath, sore throat, swelling, vomiting. Severity of symptoms: At their worst the symptoms were mild in the emergency department the symptoms have improved. The patient has experienced similar episodes in the past. Reports began with fever last night, tmax 102, took motrin this AM, now afebrile, no other symptoms than myalgia and fatigue. Reports right leg has caused fever and infections in past but denies current pain or rash to lower extremities. No known sick contacts. + vaccinated. . Historical: - Allergies: 10:41 Invokana; bp 10:41 Jardiance; bp - Home Meds: 10:41 metformin 1,000 mg Oral tab 1 tab 2 times per day [Active]; Metoprolol Tartrate Oral bp [Active]; amlodipine 5 mg tab 1 tab once daily [Active]; Humulin R 100 unit/mL soln [Active]; hydralazine 100 mg Oral tab 1 tab 3 times per day [Active]; Lasix 40 mg Oral tab 1 tab 2 times per day [Active]; - PMHx: 10:41 Hyperlipidemia; Hypertension; lower back pain with injecitons; Obesity; Diabetes - IDDM;bp - Immunization history:: Adult Immunizations up to date, Client reports receiving the 2nd dose of the Covid vaccine, Date received: August 24, 2020. - Social history:: Smoking status: Patient denies any tobacco usage or history of. - Family history:: not pertinent. - Hospitalizations: : No recent hospitalization is reported. ROS: 10:42 Constitutional: + fever and chills Eyes: Negative for injury, pain, redness, and burnisher, ENT: Negative for injury, pain, and discharge, Neck: Negative for injury, pain, and swelling, Cardiovascular: Negative for chest pain, palpitations, and edema, Respiratory: Negative for shortness of breath, cough, wheezing, and pleuritic chest pain, Abdomen/GI: Negative for abdominal pain, nausea, vomiting, diarrhea, and constipation, Back: Negative for injury and pain, : Negative for injury, bleeding, discharge, and swelling, MS/Extremity: Negative for injury and deformity, Skin: Negative for injury, rash, and discoloration, Neuro: Negative for headache, weakness, numbness, tingling, and seizure. Exam: 10:42 Constitutional: This is a well developed, well nourished patient who is awake, alert, rn and in no acute distress. Ambulatory to room without difficulty or assistance. Head/Face: Normocephalic, atraumatic. Eyes: Conjunctiva and sclera are non-icteric and not injected. Cornea within normal limits. Periorbital areas with no swelling, redness, or edema. Neck: Trachea midline, no masses palpated, and no cervical lymphadenopathy. Supple, full range of motion without nuchal rigidity, or vertebral point tenderness. No Meningismus. Cardiovascular: Regular rate and rhythm. No pulse deficits. Respiratory: No increased work of breathing, no retractions or nasal flaring. Abdomen/GI: soft, non-tender Skin: Warm, dry with normal turgor. Normal color with no rashes, no lesions, and no evidence of cellulitis. MS/ Extremity: 2+ pitting edema bilateral lower ext, equal circumference, no erythema or warmth. Neuro: Awake and alert, GCS 15, oriented to person, place, time, and situation. Cranial nerves II-XII grossly intact. Motor strength 5/5 in all extremities. Sensory grossly intact. Cerebellar exam normal. Normal gait. Vital Signs: 10:20 BP 158 / 70; Pulse 100; Resp 16; Temp 98; Pulse Ox 98% ; bp 10:48 BP 136 / 65; Pulse 69; Resp 20; Temp 98; Pulse Ox 98% on R/A; ap3 11:01 BP 143 / 75; Pulse 74; Resp 18; Pulse Ox 98% ; ld1 11:38 BP 120 / 64; Pulse 71; Resp 19; Temp 98.4(O); Pulse Ox 98% on R/A; ap3 11:52 BP 129 / 64; Pulse 73; Pulse Ox 97% on R/A; ap3 MDM: 10:00 Patient medically screened. rn 11:58 Differential diagnosis: viral Infection, bacterial infection, URI, bronchitis. Data rn reviewed: vital signs, nurses notes, lab test result(s), and as a result, I will discharge patient. Counseling: I had a detailed discussion with the patient and/or guardian regarding: the historical points, exam findings, and any diagnostic results supporting the discharge/admit diagnosis, lab results, the need for outpatient follow up, to return to the emergency department if symptoms worsen or persist or if there are any questions or concerns that arise at home. Response to treatment: the patient's symptoms have mildly improved after treatment, and as a result, I will discharge patient. Special discussion: I discussed with the patient/guardian in detail that at this point there is no indication for admission to the hospital. It is understood, however, that if the symptoms persist or worsen the patient needs to return immediately for re-evaluation. Based on the history and exam findings, there is no indication for further emergent testing or inpatient evaluation. I discussed with the patient/guardian the need to see the primary care provider for further evaluation of the symptoms. ED course: Pt with neg COVID/FLu/Strep, normal WBC, neg procal. No resp symptoms. Pt feels like beginning of leg infection again, has had multiple times, given no source found here, will trust patient's intuition and treat with bactrim for possible early leg infection.. 09/14 10:14 Order name: CBC with Diff rn 09/14 10:14 Order name: Basic Metabolic Panel; Complete Time: 11:15 rn 09/14 10:14 Order name: Blood Culture Adult (2) rn 09/14 10:14 Order name: Procalcitonin; Complete Time: 11:24 rn 09/14 10:14 Order name: Lipase; Complete Time: 11:15 rn 09/14 10:14 Order name: LFT's; Complete Time: 11:15 rn 09/14 10:14 Order name: IV Start; Complete Time: 10:46 rn 09/14 10:14 Order name: Strep; Complete Time: 11:15 rn 09/14 11:08 Order name: Throat Culture EDMS 09/14 11:33 Order name: COVID-19/FLU A+B; Complete Time: 11:58 EDMS Administered Medications: No medications were administered Disposition: 09/14/20 12:01 Discharged to Home. Impression: Fever of other and unknown origin. - Condition is Stable. - Discharge Instructions: Fever, Adult. - Prescriptions for Bactrim DS 800- 160 mg Oral Tablet - take 1 tablet by ORAL route every 12 hours for 10 days; 20 tablet. - Medication Reconciliation Form, Thank You Letter, Antibiotic Education, Prescription Opioid Use, Work release form form. - Follow up: Private Physician; When: As needed; Reason: Recheck today's complaints, Re-evaluation by your physician. - Problem is new. - Symptoms have improved. Signatures: Dispatcher [employer] EDMS Asael Bernal MD MD rn Peltier, Brian RN Sudha Freeman RN RN ap3 Corrections: (The following items were deleted from the chart) 10:51 10:14 Influenza Screen (A \T\ B)+BA.LAB.BRZ ordered. EDMI EDMS 10:51 10:14 CORONAVIRUS+MR.LAB.BRZ ordered. [facility] EDMI 12:22 12:01 09/14/2020 12:01 Discharged to Home. Impression: Fever of other and unknown ap3 origin. Condition is Stable. Forms are Medication Reconciliation Form, Thank You Letter, Antibiotic Education, Prescription Opioid Use. Follow up: Private Physician; When: As needed; Reason: Recheck today's complaints, Re-evaluation by your physician. Problem is new. Symptoms have improved. rn
--- NOTE | 2020-09-14 12:01 | ER ---
Nurse's Notes [facility] Name: Nicola Harvey Age: 55 yrs Sex: Male : 1965 Arrival Date: 09/14/2020 Time: 09:56 Bed 2 Private MD: Diagnosis: Fever of other and unknown origin Presentation: 09/14 10:20 Chief complaint: Patient states: FEVER SINCE Y/D , TMAX 102. Coronavirus screen: cough bp unrelated to allergies, fever, Client presents with at least one sign or symptom that may indicate coronavirus-19. Ebola Screen: No symptoms or risks identified at this time. Initial Sepsis Screen: Does the patient meet any 2 criteria? HR > 90 bpm. No. Patient's initial sepsis screen is negative. Does the patient have a suspected source of infection? Yes:. Risk Assessment: Do you want to hurt yourself or someone else? Patient reports no desire to harm self or others. Onset of symptoms is unknown. 10:20 Method Of Arrival: Ambulatory bp 10:20 Acuity: ANGE 3 bp Triage Assessment: 10:20 General: Appears in no apparent distress. uncomfortable, ill. General: Behavior is bp cooperative, appropriate for age, anxious. EENT: Reports nasal congestion. Neuro: No deficits noted. Cardiovascular: No deficits noted. Respiratory: No deficits noted. GI: No signs and/or symptoms were reported involving the gastrointestinal system. : No signs and/or symptoms were reported regarding the genitourinary system. Derm: No deficits noted. Musculoskeletal: No deficits noted. Historical: - Allergies: 10:41 Invokana; bp 10:41 Jardiance; bp - Home Meds: 10:41 metformin 1,000 mg Oral tab 1 tab 2 times per day [Active]; Metoprolol Tartrate Oral bp [Active]; amlodipine 5 mg tab 1 tab once daily [Active]; Humulin R 100 unit/mL soln [Active]; hydralazine 100 mg Oral tab 1 tab 3 times per day [Active]; Lasix 40 mg Oral tab 1 tab 2 times per day [Active]; - PMHx: 10:41 Hyperlipidemia; Hypertension; lower back pain with injecitons; Obesity; Diabetes - IDDM;bp - Immunization history:: Adult Immunizations up to date, Client reports receiving the 2nd dose of the Covid vaccine, Date received: August 24, 2020. - Social history:: Smoking status: Patient denies any tobacco usage or history of. - Family history:: not pertinent. - Hospitalizations: : No recent hospitalization is reported. Screenin:19 Abuse screen: Denies threats or abuse. Nutritional screening: No deficits noted. ap3 Tuberculosis screening: No symptoms or risk factors identified. Fall Risk No fall in past 12 months (0 pts). Secondary diagnosis (15 points) DM, HTN, CHF. IV access (20 points). Ambulatory Aid- None/Bed Rest/Nurse Assist (0 pts). Gait- Normal/Bed Rest/Wheelchair (0 pts) Mental Status- Oriented to own ability (0 pts). Total Glover Fall Scale indicates Low Risk Score (25-44 pts). Fall prevention measures have been instituted. Side Rails Up X 2 Placed close to Nursing Station Frequent Obs/Assesments occuring. Assessment: 10:13 General: Appears in no apparent distress. obese, Behavior is calm, cooperative, ap3 appropriate for age. Pain: Complains of pain in generalized body aches. Neuro: Level of Consciousness is awake, alert, obeys commands, Oriented to person, place, time, situation. Cardiovascular: Denies chest pain. Respiratory: Breath sounds are clear Denies shortness of breath. GI: No signs and/or symptoms were reported involving the gastrointestinal system. Abdomen is round non-distended. : No signs and/or symptoms were reported regarding the genitourinary system. EENT: No signs and/or symptoms were reported regarding the EENT system. Derm:. Derm: Rash noted that is on DOMINIC lower extremities has discoleration and dryness. Musculoskeletal: Reports weakness in generalized body weakness. Vital Signs: 10:20 BP 158 / 70; Pulse 100; Resp 16; Temp 98; Pulse Ox 98% ; bp 10:48 BP 136 / 65; Pulse 69; Resp 20; Temp 98; Pulse Ox 98% on R/A; ap3 11:01 BP 143 / 75; Pulse 74; Resp 18; Pulse Ox 98% ; ld1 11:38 BP 120 / 64; Pulse 71; Resp 19; Temp 98.4(O); Pulse Ox 98% on R/A; ap3 11:52 BP 129 / 64; Pulse 73; Pulse Ox 97% on R/A; ap3 ED Course: 09:56 Patient arrived in ED. am2 10:00 Asael Bernal MD is Attending Physician. rn 10:00 Ronnie Marquez, KRUNAL is Primary Nurse. bp 10:20 Patient has correct armband on for positive identification. Bed in low position. Call ap3 light in reach. Side rails up X 1. Pulse ox on. NIBP on. Door closed. Warm blanket given. 10:20 Arm band placed on. bp 10:30 Triage completed. bp 10:35 Inserted saline lock: 20 gauge in left antecubital area, using aseptic technique. Blood ap3 collected. 10:46 Strep Sent. ap3 10:46 LFT's Sent. ap3 10:46 Lipase Sent. ap3 10:46 Procalcitonin Sent. ap3 10:46 Blood Culture Adult (2) Sent. ap3 10:46 Basic Metabolic Panel Sent. ap3 10:47 CBC with Diff Sent. ap3 11:40 Primary Nurse role handed off by Ronnie Marquez, KRUNAL ap3 11:40 Sudha Orosco, KRUNAL is Primary Nurse. ap3 12:20 No provider procedures requiring assistance completed. ap3 12:21 IV discontinued, intact, bleeding controlled, No redness/swelling at site. Pressure ap3 dressing applied. Administered Medications: No medications were administered Outcome: 12:01 Discharge ordered by . rn 12:21 Discharged to home ambulatory, with significant other. ap3 12:21 Condition: stable 12:21 Discharge instructions given to patient, significant other, Instructed on discharge instructions, follow up and referral plans. medication usage, Demonstrated understanding of instructions, follow-up care, medications, Prescriptions given X 1. 12:22 Patient left the ED. ap3 Signatures: Asael Bernal MD MD rn Moreno, Amanda am2 Ronnie Marquez, RN RN bp Sudha Orosco RN RN ap3 Gina Givens, KRUNAL RN ld1 Corrections: (The following items were deleted from the chart) 10:51 10:45 CORONAVIRUS+MR.LAB.BRZ drawn and sent. ap3 EDMS 10:51 10:46 Influenza Screen (A \T\ B)+BA.LAB.BRZ drawn and sent. ap3 EDMS
[2020-09-14 12:35] VITALS: TEMP 98.4
[2020-09-14 12:37] VITALS: BP 129/64; O2SAT 97
[2020-09-14 13:37] LABS: Blood Morphology Comment NOT SEEN (NOT SEEN); Platelet Estimate ADEQ; White Blood Cell Scan OK (OK)
== END 2020-09-14 12:22 | disposition home or self-care (01) ==
LOC: ER 09:55
DX: R50.9 Fever, unspecified (principal); Z20.822 Contact with and (suspected) exposure to COVID-19; I10 Essential (primary) hypertension; E11.9 Type 2 diabetes mellitus without complications; E78.5 Hyperlipidemia, unspecified; Z79.4 Long term (current) use of insulin; Z88.8 Allergy status to other drugs, medicaments and biological substances
CPT/HCPCS: 87040 ×2; 87070; 85025; 80048; 36415; 80076; 87081; 83690; 84145; 0240U; 99284

== ENCOUNTER 2020-10-02 19:22 | Observation (INO) | payer BC ==
--- OUTSIDE RECORDS SUMMARY | 2020-10-02 19:27 | XMS REPORT | Continuity of Care Document ---
:1965 Author Organization [facility] t Address [address] [place] [address] Care Team Providers Name Role Phone Ellen Pantoja Attending Clinician [phone] Only, Test Attending Clinician Unavailable Doctor Unassigned, Name [...] oria STENOSIS 1-14 09:02:00 l LUMBAR 00:00: [place] STENOSIS 00 Active 04/08/2017 [facility] M54.16 Diagnosis Active 2016-052017-03-19 Mem oria 0-25 10:29:00 l M54.16 00:00: Mitesh 00 Active 03/19/2017 [facility] Abdominal Problem Resolve 2017-12-07 M emoria pain d 00:03:51 l (finding) Mitesh Abdominal pain (finding) Resolved Problem 12/07/2017 [facility] Chest pain Problem Resolve 2017-12-07 Memoria (finding) d 00:03:51 l Chest [place] pain (finding) Resolved Problem 12/07/2017 [facility] Chronic Problem Resolve 2017-12-07 Mem oria back pain d 00:03:51 l (disorder) Chronic Her mauricio back pain (disorder) Resolved Problem 12/07/2017 [facility] Diabetes Problem Active 2017-12-07 Mem oria mellitus 00:03:51 l (disorder) Diabetes He rmann mellitus (disorder) Active Problem 12/07/2017 [facility] Hyperchole Problem Active 2017-12-07 M emoria sterolemia 00:03:51 l (disorder) Gabo n Hyperchole sterolemia (disorder) Active Problem 12/07/2017 [facility] Hypertensi Problem Active 2017-12-07 M emoria ve 00:03:51 l disorder, [place] systemic Hypertensi arterial ve (disorder) disorder, systemic arterial (disorder) Active Problem 12/07/2017 [facility] Morbid Problem Active 2017-12-07 Memor ia obesity 00:03:51 l (disorder) Morbid Herm chacorta obesity (disorder) Active Problem 12/07/2017 [facility] Prolapsed Problem Active 2017-12-07 Me moria lumbar 00:03:51 l interverte Gabo n bral disc Prolapsed (disorder) lumbar interverte bral disc (disorder) Active Problem 12/07/2017 [facility] Allergies, Adverse Reactions, Alerts Allergy Allergy Status Severity Reaction(s) Onset Inactive Treating Comm ents Source Name Type Date Date Clinician No Known DA Active [facility] 02[facility]01 [place] [facility]: [facility] Social History Smoking Status Start Date Stop Date Source Social History 2017-06-05 17:47:50 2017-06-05 17:47:50 [facility] Medications Ordered Filled Start Stop Current Ordering [...] , # 150 tab, 2 Refill(s), Pharmacy: [facility] diclofenac 2016-05 Yes 75 mg = 1 Me moria sodium 75 2-01 tab, PO, l mg oral 14:52: BID, PRN Gabo n enteric 00 Pain Score coated, 7-10, # 60 delayed-rel tab, 2 ease tablet Refill(s), Pharmacy: [facility] Cyclobenzap 2016-05 Yes 10 mg = 1 M emoria rine 2-01 tab, PO, l hydrochlori 14:52: BID, # 60 H ermann de 10 MG 00 tab, 2 Oral Tablet Refill(s), [Flexeril] Pharmacy: [facility] Sodium 2016-05 Yes 4.2 mL, Memoria Chloride 06-26 Route: l 14:50: EPIDURAL, Mitesh 00 Dosing Weight 141.364, kg, ONCE, (Preservat liliana Free), Start date: 04/25/17 8:50:00 CAN BANDER OPERATOR, Stop date: 04/25/17 8:50:00 CAN BANDER OPERATOR Lidocaine 2016-05 Yes 3 mL, Memoria Hydrochlori 06-26 Route: l de 10 MG/ML 14:50: SUB-Q, Herm chacorta Injectable 00 Dosing Solution Weight 141.364, kg, ONCE, (Preservat liliana Free), Start date: 04/25/17 8:50:00 CAN BANDER OPERATOR, Stop date: 04/25/17 8:50:00 CAN BANDER OPERATOR Omnipaque 2016-05 Yes 2 mL, Memoria 300 06-26 Route: l 14:50: EPIDURAL, Mitesh 00 Dosing Weight 141.364, kg, ONCE, (Preservat liliana Free), Start date: 04/25/17 8:50:00 CAN BANDER OPERATOR, Stop date: 04/25/17 8:50:00 CAN BANDER OPERATOR Dexamethaso 2016-05 Yes 8 mg, Memor ia ne 06-26 Route: l 14:50: EPIDURAL, [place] 00 ONCE, Dosing Weight 141.364, kg, (Preservat liliana Free), Start date: 04/25/17 8:50:00 CAN BANDER OPERATOR, Stop date: 04/25/17 8:50:00 CAN BANDER OPERATOR Bupivacaine 2017- Yes 2 mL, Memor ia Hydrochlori 06-26 Route: l de 2.5 14:50: EPIDURAL, Gabo n MG/ML 00 Dosing Injectable Weight Solution 141.364, kg, ONCE, (Preservat liliana Free), Start date: 04/25/17 8:50:00 CAN BANDER OPERATOR, Stop date: 04/25/17 8:50:00 CAN BANDER OPERATOR Vital Signs Vital Name Observation Time Observation Value Comments Source Height 2017-06-05 17:46:00 [facility] 2017-06-05 17:46:00 [facility] BMI Calculated 2017-06-05 17:46:00 Memori al [place] Systolic (mm Hg) 2017-06-05 17:46:00 Chuck rial Mitesh Diastolic (mm Hg) 2017-06-05 17:46:00 Mem orial Mitesh Temperature Oral (F) 2017-06-05 17:46:00 99.3 F [facility] Heart Rate 2017-06-05 17:46:00 [facility] BMI Calculated 2017-04-29 15:23:00 Memori al Mitesh Weight 2017-04-29 15:23:00 [facility] [place] Height 2017-04-29 15:23:00 177.8 cm [facility] [place] Heart Rate 2017-04-29 15:00:00 [facility] [place] Respitory Rate 2017-04-29 15:00:00 Memori al Mitesh Systolic (mm Hg) 2017-04-29 15:00:00 Chuck rial Mitesh Diastolic (mm Hg) 2017-04-29 15:00:00 Mem orial [place] Procedures Procedure Date / Time Performed Performing Clinician [facility] e Myelography via lumbar 2017-04-29 16:14:00 Memor ial [place] injection, including radiological supervision and interpretation; thoracic Myelography via lumbar 2017-04-29 16:14:00 Memor ial [place] injection, including radiological supervision and interpretation; lumbosacral NJX INTERLAMINAR LMBR/SA 2017-04-25 14:50:00 Mem orial [place] Ear operations [facility] [place] Lumbar epidural injection Memori al [place] Lumbar epidural steroid [facility] [place] injection Nose operation Memorial Mitesh Operation [facility] Mitesh Encounters Start End Encounter Admission Attending Care Care Encounter Source Date/Time Date/Time Type Type Clinicians Facility Department ID 2020-09-13 2020-09-13 Outpatient FLORENCE Pantoja [id number] 00:00:00 00:00:00 Ellen [id number] Evon [id number] 2020-02-02 2020-02-02 Laboratory Only, [place] [id number] 11:14:48 11:29:48 Only Test [place] [id number] [place] 4.2.7.2.686 [place] [id number] 2020-02-02 2020-02-02 Orders Doctor DULCE [id number] 00:00:00 00:00:00 Only Unassigned, [place] 350.1.13.10 [place] [facility] 4.2.7.2.686 [id number] 2020-01-05 2020-01-05 Telephone Atkins, [facility] [id number] 00:00:00 00:00:00 [place] [id number] [place] 4.2.7.2.686 Professio [id number] [address] 2019-06-16 2019-06-16 Telephone Atkins, [facility] [id number] 00:00:00 00:00:00 [place] [id number] [place] 4.2.7.2.686 Professio [id number] [address] 2019-06-09 2019-06-09 Telephone Atkins, [facility] [id number] 00:00:00 00:00:00 [place] [id number] [place] 4.2.7.2.686 Professio [id number] [address] 2019-02-10 2019-02-10 Telephone Atkins, [facility] [id number] 00:00:00 00:00:00 [place] [id number] [place] 4.2.7.2.686 Professio [id number] [facility] 2018-12-13 2018-12-13 Orders Doctor DULCE [id number] 00:00:00 00:00:00 Only Unassigned, [place] 350.1.13.10 [place] [facility] 4.2.7.2.686 [id number] 2018-11-27 2018-11-27 Refill Atkins, [place] [id number] 00:00:00 00:00:00 Anupam Robert 350.1.13.10 [place] 4.2.7.2.686 Professio [id number] [facility] 2017-12-04 2017-12-04 Outpatient Sid Dulce [facility] M[facility] [id number] 10:30:00 10:30:00 C 07 2017-06-06 2017-06-07 Outpatient MHMISCHER M[facility]IS[facility]ER [id number] 14:31:00 23:59:59 09 2017-06-06 2017-06-07 Outpatient M[facility]ISCHER M[facility] [id number] 14:31:00 23:59:59 09 2017-06-05 2017-06-05 Outpatient Sid, Dulce [facility] M[facility] [id number] 11:30:00 23:59:59 C 05 2017-06-05 2017-06-05 Outpatient SidDulce thomas [facility] [id number] 11:30:00 23:59:59 C 2017-04-30 2017-05-01 Outpatient MHMISCHER M[facility] [id number] 11:52:00 23:59:59 08 2017-04-29 2017-04-29 Outpatient Sid Dulce [facility] [id number] 08:20:00 23:59:00 C 00 2017-04-25 2017-04-25 Outpatient Edin [facility] [id number] 08:00:00 23:59:59 Camacho Cook 06 2017-04-24 2017-04-25 Outpatient [facility] [id number] 16:30:00 23:59:59 07 2017-04-24 2017-04-25 [id number] 16:27:00 23:59:59 06 2017-03-19 2017-03-19 Outpatient Manjinder Kowalski [facility] [id number] 10:22:00 23:59:00 Hwkevin 98 Results Test Description Test Time Test Comments Results Result Comments Source GLUBED 2020-02-08 15:58:00 Test Item Value Reference Range Interpretation Comme nts GLUBED (test code = GLUBED) 147 MG/DL 70-105 H [id number] 16:42:00 Test Item Value Reference Range Interpretation Comments PTT (test code = PTT) 29.4 s 22.9-35.8 [facility] [id number] 16:42:00 Test Item Value Reference Range Interpretation Comments PT (test code = PT) 12.8 s 12.0-14.7 [facility] [id number] 16:42:000.96[facility] 2017-04-29 15:26:0095[facility]annCHEM [id number] 15:26:000.92[facility]annCHEM [id number] 15:26:0021[facility] [id number] 15:26:0084.7[facility] [id number] 15:26:0041.3[facility] Mitesh [id number] 15:26:00 Test Item Value Reference Range Interpretation Comments MCH (test code = MCH) 27.9 pg 27.0-31.0 [facility] [id number] 15:26:0032.9[facility] HermannHEMATOLOGY 2017-04-29 15:26:007.2[facility]orial [id number] 15:26:004.87[facility] [id number] 15:26:0013.6[facility] [id number] 15:26:0016.1[facility] [id number] 15:26:46494Crsjpmdy Mitesh [id number] 15:26:008.0[facility] [id number] 05:57:00 Test Item Value Reference Range Interpretation [...] 4 - SerumAlbu min)] EGFR if >60 [place] (test code mL/min/1.73m\\ = EGFRAA) S\\2 EGFR if Non- >60 Estimate d Glomerular [place] (test code mL/min/1.73m\\ Filtrat ion Rate (eGFR) [...] c hronic kidney failure. CBC WITH AUTO [id number] 05:42:00 Test Item Value Reference Range Interpretation [...] code = 1.0 % 0.0-0.4 H IG%) [id number] 05:53:00 Test Item Value Reference Range Interpretation [...] 4 - SerumAlbu min)] EGFR if >60 [place] (test code mL/min/1.73m\\ = EGFRAA) S\\2 EGFR if Non- >60 Estimate d Glomerular [place] (test code mL/min/1.73m\\ Filtrat ion Rate (eGFR) [...] c hronic kidney failure. CBC WITH AUTO [id number] 05:27:00 Test Item Value Reference Range Interpretation [...] code = 1.7 % 0.0-0.4 H IG%) [id number] 04:36:00 Test Item Value Reference Range Interpretation [...] 4 - SerumAlbu min)] EGFR if >60 [place] (test code mL/min/1.73m\\ = EGFRAA) S\\2 EGFR if Non- >60 Estimate d Glomerular [place] (test code mL/min/1.73m\\ Filtrat ion Rate (eGFR) [...] c hronic kidney failure. CBC WITH AUTO [id number] 04:14:00 Test Item Value Reference Range Interpretation [...] code = 1.9 % 0.0-0.4 H IG%) [id number] 04:40:00 Test Item Value Reference Range Interpretation [...] 4 - SerumAlbu min)] EGFR if >60 [place] (test code mL/min/1.73m\\ = EGFRAA) S\\2 EGFR if Non- >60 Estimate d Glomerular [place] (test code mL/min/1.73m\\ Filtrat ion Rate (eGFR) [...] c hronic kidney failure. CBC WITH AUTO [id number] 04:09:00 Test Item Value Reference Range Interpretation [...] = 2.4 % 0.0-0.4 H IG%) CULTURE, [id number] 06:50:00To start 15mins after 1st cultureSpecimen: BloodCollected: 01/18/2017 04:05 Status: Final Last Updated: 01/23/2017 06:49 (1) To start 15mins after 1st culture Culture Result (Final) (Final) No Growth After 5 DaysCULTURE, [id number] 06:50:00Specimen: BloodCollected: 01/18/2017 03:55 Status: Final Last [...] code = 3.4 % 0.0-0.4 H IG%) [id number] 04:19:00 Test Item Value Reference Range Interpretation [...] 4 - SerumAlbu min)] EGFR if >60 [place] (test code mL/min/1.73m\\ = EGFRAA) S\\2 EGFR if Non- >60 Estimate d Glomerular [place] (test code mL/min/1.73m\\ Filtrat ion Rate (eGFR) [...] c hronic kidney failure. CBC WITH AUTO [id number] 04:57:00 Test Item Value Reference Range Interpretation [...] 4.0 % 0.0-0.4 H IG%) CBC AUTO [id number] 04:35:00 Test Item Value Reference Range Interpretation [...] 4 - SerumAlbu min)] EGFR if >60 [place] (test code mL/min/1.73m\\ = EGFRAA) S\\2 EGFR if Non- >60 Estimate d Glomerular [place] (test code mL/min/1.73m\\ Filtrat ion Rate (eGFR) [...] c hronic kidney failure. CBC WITH AUTO [id number] 05:01:00 Test Item Value Reference Range Interpretation [...] 4.5 % 0.0-0.4 H IG%) CBC AUTO [id number] 04:56:00 Test Item Value Reference Range Interpretation [...] 4 - SerumAlbu min)] EGFR if >60 [place] (test code mL/min/1.73m\\ = EGFRAA) S\\2 EGFR if Non- >60 Estimate d Glomerular [place] (test code mL/min/1.73m\\ Filtrat ion Rate (eGFR) [...] c hronic kidney failure. CBC WITH AUTO [id number] 05:57:00 Test Item Value Reference Range Interpretation [...] code = 4.8 % 0.0-0.4 H IG%) [id number] 05:41:00 Test Item Value Reference Range Interpretation Comments Magnesium (test code = MG) 2.0 mg/dl 1.6-2.3 [id number] 05:41:00 Test Item Value Reference Range Interpretation [...] 4 - SerumAlbu min)] EGFR if >60 [place] (test code mL/min/1.73m\\ = EGFRAA) S\\2 EGFR if Non- >60 Estimate d Glomerular [place] (test code mL/min/1.73m\\ Filtrat ion Rate (eGFR) [...] of c hronic kidney failure. LACTIC ACID [id number] 06:43:00 Test Item Value Reference Range Interpretation Comments LACTATE (test code = LAC) 0.9 mmol/l 0.7-2.0 GLYCOSALATED [id number] 05:41:00 Test Item Value Reference Range Interpretation Comments Hemoglobin A1C (test 9.06 % 4.3-6.0 A code = GLYCO) Mean Plasma Glucose 245 mg/dl 90-180 WHEN BONIFACIO T RESULTS FOR (test code = MPG) A1C EXCEED 14.0, THE LINEAR LIMIT OF THE INSTRUMENT, THE CALCULATED RESU LT FOR THE MEAN GLUCOS E IS NOT RELIABLE. CORONARY [id number] 05:09:00 Test Item Value Reference Range Interpretation [...] (test code = 37 mg/dl 30-60 VLDL) [id number] 04:51:00 Test Item Value Reference Range Interpretation Comments Magnesium (test code = MG) 2.1 mg/dl 1.6-2.3 [id number] 04:51:00 Test Item Value Reference Range Interpretation Comments CPK (test code = CPK) 93 U/L 30-135 LIPASE, [id number] 04:43:00 Test Item Value Reference Range Interpretation Comments Lipase (test code = LIPA) 116 U/L 8-223 [id number] 04:43:00 Test Item Value Reference Range Interpretation [...] 4 - SerumAlbu min)] EGFR if >60 [place] (test code mL/min/1.73m\\ = EGFRAA) S\\2 EGFR if Non- >60 Estimate d Glomerular [place] (test code mL/min/1.73m\\ Filtrat ion Rate (eGFR) [...]
--- NOTE | 2020-10-02 21:16 | ER ---
Nurse's Notes [facility] Name: Nicola Harvey Age: 55 yrs Sex: Male : 1965 Arrival Date: 10/02/2020 Time: 19:40 Bed 15 Private MD: Diagnosis: Obesity, unspecified;Type 1 diabetes mellitus;Chest pain, unspecified;Edema, unspecified;Abdominal tenderness;Fever, unspecified Presentation: 10/02 19:52 Chief complaint: Patient states: Had this symptoms couple weeks ago, was here and they ca1 found nothing. Started again last night at 1230 midnight. Have high fever of 101F. chest pain, R groin pain and cramps. Coronavirus screen: Client denies travel out of the [place] in the last 14 days. fever, Client presents with at least one sign or symptom that may indicate coronavirus-19. Standard/surgical mask placed on the client. Provider contacted for isolation considerations. Ebola Screen: Patient negative for fever greater than or equal to 101.5 degrees Fahrenheit, and additional compatible Ebola Virus Disease symptoms Patient denies exposure to infectious person. Patient denies travel to an Ebola-affected area in the 21 days before illness onset. No symptoms or risks identified at this time. Initial Sepsis Screen: Does the patient meet any 2 criteria? No. Patient's initial sepsis screen is negative. Does the patient have a suspected source of infection? No. Patient's initial sepsis screen is negative. Risk Assessment: Do you want to hurt yourself or someone else? Patient reports no desire to harm self or others. Onset of symptoms was October 02, 2020. 19:52 Method Of Arrival: Ambulatory ca1 19:52 Acuity: ANGE 3 ca1 Historical: - Allergies: 19:55 Invokana; ca1 19:55 Jardiance; ca1 - Home Meds: 19:55 amlodipine 5 mg tab 1 tab once daily [Active]; hydralazine 100 mg Oral tab 1 tab 3 ca1 times per day [Active]; Humulin R 100 unit/mL soln [Active]; metformin 1,000 mg Oral tab 1 tab 2 times per day [Active]; Lasix 40 mg Oral tab 1 tab 2 times per day [Active]; Metoprolol Tartrate Oral [Active]; - PMHx: 19:55 Diabetes - IDDM; Hyperlipidemia; Hypertension; lower back pain with injecitons; ca1 Obesity; CHF; - PSHx: 19:55 None; ca1 - Immunization history:: Client reports receiving the 2nd dose of the Covid vaccine, Client reports receiving the 1st dose of the Covid vaccine, Flu vaccine is up to date. - Social history:: Smoking status: Patient denies any tobacco usage or history of. Screenin:41 Abuse screen: Denies threats or abuse. Denies injuries from another. Nutritional jm8 screening: No deficits noted. Tuberculosis screening: No symptoms or risk factors identified. Fall Risk Assessment: 21:42 General: Appears in no apparent distress. comfortable, Behavior is calm, cooperative, jm8 appropriate for age. Pain: Complains of pain in chest Pain does not radiate. Pain currently is 6 out of 10 on a pain scale. Pain began 9 hours ago Also complains of decreased appetite, nausea. Neuro: No deficits noted. Level of Consciousness is awake, alert, obeys commands, Oriented to person, place, time. Cardiovascular: Reports chest pain, nausea, Capillary refill < 3 seconds Patient's skin is warm and dry. Rhythm is regular. Respiratory: Reports fever since last night Airway is patent Trachea midline Respiratory effort is even, unlabored, Respiratory pattern is regular. GI: No deficits noted. : No deficits noted. EENT: No deficits noted. Derm: No signs and/or symptoms reported regarding the dermatologic system. Skin is intact, Skin is pink, warm \T\ dry. Musculoskeletal: No deficits noted. Vital Signs: 19:52 BP 153 / 70; Pulse 74; Resp 16 S; Temp 97.7(TE); Pulse Ox 99% on R/A; Weight 166.47 kg ca1 (R); Height 5 ft. 10 in. (177.80 cm) (R); Pain 8/10; 22:00 BP 156 / 69; Pulse 77; Resp 16; Pulse Ox 97% ; jm8 22:00 BP 145 / 57; Pulse 82; Resp 16; Pulse Ox 96% ; jm8 19:52 Body Mass Index 52.66 (166.47 kg, 177.80 cm) ca1 ED Course: 19:40 Patient arrived in ED. ag3 19:54 Triage completed. ca1 19:55 Arm band placed on right wrist. EKG completed in triage. Results shown to MD. ca1 20:55 Weston Carty MD is Attending Physician. [facility] 21:15 Harjeet Mcknight MD is Hospitalizing Provider. [facility] 21:36 Inserted saline lock: 20 gauge in right antecubital area, using aseptic technique. 4 Blood collected. 21:41 Patient has correct armband on for positive identification. Side rails up X2. Cardiac jm8 monitor on. Pulse ox on. NIBP on. 21:44 No provider procedures requiring assistance completed. Patient maintains SpO2 jm8 saturation greater than 95% on room air. 21:51 US Extremity Venous W Compression Mukund In Process Unspecified. [facility] 10/03 02:24 Patient admitted, IV remains in place. jm8 Administered Medications: Discontinued: Zosyn (piperacillin-tazobactam) 3.375 grams IVPB once over 60 mins; (mix in NS 100 mL) 10/02 21:37 Drug: Pepcid (famotidine) 20 mg Route: IVP; Site: right antecubital; jm8 23:22 Follow up: Response: No adverse reaction [facility] 21:38 Drug: NS 0.9% 1000 ml Route: IV; Rate: 125 ml/hr; Site: right antecubital; jm8 21:38 Drug: Zosyn (piperacillin-tazobactam) 3.375 grams Route: IVPB; Infused Over: 60 mins; jm8 Site: right antecubital; 23:23 Follow up: Response: No adverse reaction 8 23:13 Drug: Aspirin Chewable Tablet 324 mg Route: PO; jm8 23:49 Follow up: Response: No adverse reaction jm8 Outcome: 21:16 Decision to Hospitalize by Provider. [facility] 10/03 02:23 Admitted to Med/surg accompanied by nurse, via wheelchair, with chart. jm8 Condition: good Instructed on the need for admit. 02:24 Patient left the ED. jm8 Signatures: Dispatcher [employer] EDID Weston Carty MD MD cha Gomez, Alice 3 Serina Castaneda RN RN Chai Butler 4 Joey Allan RN RN jm8 Corrections: (The following items were deleted from the chart) 10/02 21:44 21:42 Pain: Complains of pain in chest Pain currently is 6 out of 10 on a pain scale. jm8 Pain began 9 hours ago Also complains of decreased appetite, nausea, jm8
--- NOTE | 2020-10-02 21:16 | EDPHYS ---
Physician Documentation [facility] Name: Nicola Harvey Age: 55 yrs Sex: Male : 1965 Arrival Date: 10/02/2020 Time: 19:40 Bed 15 Private MD: ED Physician Weston Carty HPI: 10/02 21:09 This 55 yrs old Male presents to ER via Ambulatory with complaints of Fever, leigh Chest Pain, Abdominal Pain. 21:09 The patient reports fever, not measured (subjective), that was measured at 97.7 degrees leigh Fahrenheit. Onset: The symptoms/episode began/occurred 1 day(s) ago. Modifying factors: there are no obvious modifying factors. Associated signs and symptoms: Pertinent positives: abdominal pain, chest pain, cough. Severity of symptoms: At their worst the symptoms were mild in the emergency department the symptoms are unchanged. The patient has not experienced similar symptoms in the past. Historical: - Allergies: 19:55 Invokana; ca1 19:55 Jardiance; ca1 - Home Meds: 19:55 amlodipine 5 mg tab 1 tab once daily [Active]; hydralazine 100 mg Oral tab 1 tab 3 ca1 times per day [Active]; Humulin R 100 unit/mL soln [Active]; metformin 1,000 mg Oral tab 1 tab 2 times per day [Active]; Lasix 40 mg Oral tab 1 tab 2 times per day [Active]; Metoprolol Tartrate Oral [Active]; - PMHx: 19:55 Diabetes - IDDM; Hyperlipidemia; Hypertension; lower back pain with injecitons; ca1 Obesity; CHF; - PSHx: 19:55 None; ca1 - Immunization history:: Client reports receiving the 2nd dose of the Covid vaccine, Client reports receiving the 1st dose of the Covid vaccine, Flu vaccine is up to date. - Social history:: Smoking status: Patient denies any tobacco usage or history of. ROS: 21:11 Constitutional: Negative for fever, chills, and weight loss, Eyes: Negative for injury, leigh pain, redness, and discharge, ENT: Negative for injury, pain, and discharge, Neck: Negative for injury, pain, and swelling, Respiratory: Negative for shortness of breath, cough, wheezing, and pleuritic chest pain, Abdomen/GI: Negative for abdominal pain, nausea, vomiting, diarrhea, and constipation, Back: Negative for injury and pain, : Negative for injury, bleeding, discharge, and swelling, Skin: Negative for injury, rash, and discoloration, Neuro: Negative for headache, weakness, numbness, tingling, and seizure, Psych: Negative for depression, anxiety, suicide ideation, homicidal ideation, and hallucinations, Allergy/Immunology: Negative for hives, rash, and allergies, Endocrine: Negative for neck swelling, polydipsia, polyuria, polyphagia, and marked weight changes, Hematologic/Lymphatic: Negative for swollen nodes, abnormal bleeding, and unusual bruising. 21:11 Cardiovascular: Positive for chest pain. 21:11 MS/extremity: Positive for decreased range of motion, pain, swelling, tenderness, of the chest. Exam: 21:11 Constitutional: This is a well developed, well nourished patient who is awake, alert, leigh and in no acute distress. Head/Face: Normocephalic, atraumatic. Eyes: Pupils equal round and reactive to light, extra-ocular motions intact. Lids and lashes normal. Conjunctiva and sclera are non-icteric and not injected. Cornea within normal limits. Periorbital areas with no swelling, redness, or edema. ENT: Nares patent. No nasal discharge, no septal abnormalities noted. Tympanic membranes are normal and external auditory canals are clear. Oropharynx with no redness, swelling, or masses, exudates, or evidence of obstruction, uvula midline. Mucous membranes moist. Neck: Trachea midline, no thyromegaly or masses palpated, and no cervical lymphadenopathy. Supple, full range of motion without nuchal rigidity, or vertebral point tenderness. No Meningismus. Chest/axilla: Normal chest wall appearance and motion. Nontender with no deformity. No lesions are appreciated. Cardiovascular: Regular rate and rhythm with a normal S1 and S2. No gallops, murmurs, or rubs. Normal PMI, no JVD. No pulse deficits. Respiratory: Lungs have equal breath sounds bilaterally, clear to auscultation and percussion. No rales, rhonchi or wheezes noted. No increased work of breathing, no retractions or nasal flaring. Abdomen/GI: Soft, non-tender, with normal bowel sounds. No distension or tympany. No guarding or rebound. No evidence of tenderness throughout. Back: No spinal tenderness. No costovertebral tenderness. Full range of motion. Male : Normal genitalia with no discharge or lesions. Skin: Warm, dry with normal turgor. Normal color with no rashes, no lesions, and no evidence of cellulitis. Neuro: Awake and alert, GCS 15, oriented to person, place, time, and situation. Cranial nerves II-XII grossly intact. Motor strength 5/5 in all extremities. Sensory grossly intact. Cerebellar exam normal. Normal gait. Psych: Awake, alert, with orientation to person, place and time. Behavior, mood, and affect are within normal limits. 21:11 Musculoskeletal/extremity: Extremities: noted in the right leg and left leg: decreased ROM, pain, Circulation is intact in all extremities. Sensation intact. Compartment Syndrome exam of affected extremity: is normal. Weight bearing: able to fully bear weight, DVT Exam: no pain, negative Homans' sign noted on exam, no appreciated bluish discoloration, no erythema, no increased warmth, swelling, tenderness. 21:13 ECG was reviewed by the Attending Physician. [facility] Vital Signs: 19:52 BP 153 / 70; Pulse 74; Resp 16 S; Temp 97.7(TE); Pulse Ox 99% on R/A; Weight 166.47 kg ca1 (R); Height 5 ft. 10 in. (177.80 cm) (R); Pain 8/10; 22:00 BP 156 / 69; Pulse 77; Resp 16; Pulse Ox 97% ; jm8 22:00 BP 145 / 57; Pulse 82; Resp 16; Pulse Ox 96% ; jm8 19:52 Body Mass Index 52.66 (166.47 kg, 177.80 cm) ca1 MDM: 20:55 Patient medically screened. [facility] 21:12 Data reviewed: vital signs, nurses notes, lab test result(s), EKG, radiologic studies, [facility] CT scan, plain films. 10/02 21: Order name: Basic Metabolic Panel [facility] 10/02 20: Order name: CBC with Diff; Complete Time: 22:44 [facility] 10/02 21: Order name: LFT's; Complete Time: 22:44 [facility] 10/02 21: Order name: Magnesium; Complete Time: 22:44 [facility] 10/02 21: Order name: NT PRO-BNP; Complete Time: 22:44 [facility] 10/02 21:07 Order name: PT-INR; Complete Time: 22:44 [facility] 10/02 21:07 Order name: Troponin (emerg Dept Use Only); Complete Time: 22:44 [facility] 10/02 21:07 Order name: Lipase; Complete Time: 22:44 [facility] 10/02 21:07 Order name: Blood Culture Adult (2) [facility] 10/02 21:07 Order name: COVID-19 : Document "Date of Symptom Onset" if Symptomatic. [facility] 10/02 21:07 Order name: Urine Culture [facility] 10/02 21:07 Order name: Flu [facility] 10/02 21:07 Order name: Lactate; Complete Time: 22:44 [facility] 10/02 21:08 Order name: AMMONIA; Complete Time: 22:44 [facility] 10/02 19:55 Order name: EKG; Complete Time: 19:56 [facility] 10/02 19:55 Order name: EKG - Nurse/Tech; Complete Time: 19:56 [facility] 10/02 21:07 Order name: XRAY Chest (1 view) [facility] 10/02 21:07 Order name: Cardiac monitoring; Complete Time: 21:51 [facility] 10/02 21:07 Order name: IV Saline Lock; Complete Time: 21:35 [facility] 10/02 21:07 Order name: Labs collected and sent; Complete Time: 21:35 [facility] 10/02 21:07 Order name: O2 Per Protocol; Complete Time: 21:35 [facility] 10/02 21:07 Order name: CT Chest, Abdomen, Pelvis - W/Contrast [facility] 10/02 21:08 Order name: Basic Metabolic Panel; Complete Time: 22:44 EDMS 10/02 21:13 Order name: US Extremity Venous W Compression Mukund [facility] 10/02 21:36 Order name: Urine Dipstick-Ancillary; Complete Time: 22:44 EDMS 10/03 00:25 Order name: COVID-19/FLU A+B EDAZ 10/02 21:07 Order name: O2 Sat Monitoring; Complete Time: 21:35 [facility] 10/02 21:07 Order name: Urine Dipstick-Ancillary (obtain specimen); Complete Time: 21:40 leigh EC:13 Rate is 75 beats/min. Rhythm is regular. QRS [place] is Normal. ND interval is normal. QRS leigh interval is normal. No Q waves. T waves are Normal. No ST changes noted. Clinical impression: NSR w/ Non-specific ST/T Changes and No evidence of ischemia. Interpreted by me. Reviewed by me. Administered Medications: Discontinued: Zosyn (piperacillin-tazobactam) 3.375 grams IVPB once over 60 mins; (mix in NS 100 mL) 21:37 Drug: Pepcid (famotidine) 20 mg Route: IVP; Site: right antecubital; 8 23:22 Follow up: Response: No adverse reaction [facility] 21:38 Drug: NS 0.9% 1000 ml Route: IV; Rate: 125 ml/hr; Site: right antecubital; jm8 21:38 Drug: Zosyn (piperacillin-tazobactam) 3.375 grams Route: IVPB; Infused Over: 60 mins; jm8 Site: right antecubital; 23:23 Follow up: Response: No adverse reaction [facility] 23:13 Drug: Aspirin Chewable Tablet 324 mg Route: PO; 8 23:49 Follow up: Response: No adverse reaction 8 Disposition: 10/02/20 21:16 Hospitalization ordered by Harjeet Mcknight for Observation. Preliminary diagnosis are Obesity, unspecified, Type 1 diabetes mellitus, Chest pain, unspecified, Edema, unspecified, Abdominal tenderness, Fever, unspecified. - Bed requested for Telemetry/MedSurg (observation). - Status is Observation. 8 - Condition is Stable. - Problem is new. - Symptoms have improved. Signatures: Dispatcher [employer] EDMS Kristina Gilbert RN RN mw Anderson, Corey, MD MD cha Acob, Cheryl, RN RN ca1 Malcaba, Joseph, RN RN 8 Corrections: (The following items were deleted from the chart) 22:46 21:16 Hospitalization Ordered by Harjeet Mcknight MD for Observation. Preliminary diagnosis leigh is Obesity, unspecified; Type 1 diabetes mellitus; Chest pain, unspecified; Edema, unspecified; Abdominal tenderness. Bed requested for Telemetry/MedSurg (observation). Status is Observation. Condition is Stable. Problem is new. Symptoms have improved. leigh 10/03 00:30 10/02 22:46 10/02/2020 21:16 Hospitalization Ordered by Harjeet Mcknight MD for Observation. brian Preliminary diagnosis is Obesity, unspecified; Type 1 diabetes mellitus; Chest pain, unspecified; Edema, unspecified; Abdominal tenderness; Fever, unspecified. Bed requested for Telemetry/MedSurg (observation). Status is Observation. Condition is Stable. Problem is new. Symptoms have improved. [facility] 10/03 02:24 00:30 10/02/2020 21:16 Hospitalization Ordered by Harjeet Mcknight MD for Observation. jm8 Preliminary diagnosis is Obesity, unspecified; Type 1 diabetes mellitus; Chest pain, unspecified; Edema, unspecified; Abdominal tenderness; Fever, unspecified. Bed requested for Telemetry/MedSurg (observation). Status is Observation. Condition is Stable. Problem is new. Symptoms have improved. mw
[2020-10-02 21:36] LABS: Urine Blood Negative (Negative); Urine Glucose Negative (Negative); Urine Protein 2+ (Negative); Urine Specific Gravity 1.025 (1.005-1.030)
[2020-10-02] MEDS ORDERED: FAMOTIDINE 20 MG/2 ML VIAL IV ONE (21:39)
[2020-10-02] MEDS ORDERED: NA CHLORIDE 0.9% 1,000 ML ONE (21:39)
[2020-10-02] MEDS ORDERED: PIPER/TAZO/NS 3.375gm 3.375 GM/100 ML BAG ONE (21:40)
[2020-10-02 21:44] LABS: Absolute Lymphocytes (CBC) 1.1 K/uL (0.7-4.9); Basophils % 0.8 % (0-1.3); Hematocrit 33.5 % (39.6-49.0); Lymphocytes % 14.4 % (15.3-44.8); MPV 7.8 fL (7.6-11.3); RBC Red Blood Cell Count 4.12 M/uL (4.33-5.43)
[2020-10-02 21:49] LABS: Protime INR 1.04
[2020-10-02 22:12] LABS: ALT/SGPT 35 U/L (12-78); AST/SGOT 14 U/L (15-37); Albumin 3.4 g/dL (3.4-5.0); Alkaline Phosphatase 70 U/L (45-117); BUN Blood Urea Nitrogen 21 mg/dL (7-18); Bicarbonate 31 mmol/L (21-32); Bilirubin Direct 0.1 mg/dL (0-0.2); Bilirubin Total 0.3 mg/dL (0.2-1.0); Glucose Level 137 mg/dL (74-106); Lipase 84 U/L (73-393); Magnesium 2.2 mg/dL (1.8-2.4); NT PRO-BNP 84 pg/mL (<125); Potassium 3.9 mmol/L (3.5-5.1); Protein, Total 7.9 g/dL (6.4-8.2); Sodium Level 140 mmol/L (136-145); Troponin (Emerg Dept Use Only) < 0.02 ng/mL (0.0-0.045)
[2020-10-02] MEDS ORDERED: ASPIRIN 81 MG CHEWABLE TABLET ONE (23:32)
[2020-10-03 00:24] LABS: SARS-COV-2 RT PCR NEGATIVE (NEGATIVE)
[2020-10-03] MEDS ORDERED: MORPHINE 4 MG/ML SYR IV PRN (02:05)
[2020-10-03] MEDS ORDERED: GLUCAGON 1 MG/VIAL IM PRN (02:05)
[2020-10-03] MEDS ORDERED: ONDANSETRON 4 MG/2 ML VIAL IV PRN (02:05)
[2020-10-03] MEDS ORDERED: ACETAMINOPHEN 500 MG TAB PO PRN (02:05)
[2020-10-03] MEDS ORDERED: D50W 25 GM/50 ML SYRINGE IV PRN (02:05)
[2020-10-03] MEDS ORDERED: ACETAMINOPHEN 325 MG TABLET PO PRN (03:00)
[2020-10-03 03:23] LABS: Lymphocytes % 14.5 % (15.3-44.8); MPV 7.6 fL (7.6-11.3); RBC Red Blood Cell Count 3.95 M/uL (4.33-5.43)
[2020-10-03] MEDS ORDERED: NA CHLORIDE 0.9% 100 ML ONE (03:29)
[2020-10-03] MEDS ORDERED: PIPERACIL/TAZO 3.375 GM VIAL IV ONE (03:29)
[2020-10-03 03:33] LABS: Potassium 4.5 mmol/L (3.5-5.1)
[2020-10-03] MEDS: PIPER/TAZO/NS 3.375gm 3.375 GM/100 ML BAG IVPB SCH ×3 (04:07→16:24)
[2020-10-03] MEDS: INSULIN -REGULAR HUMAN 50 UNIT/0.5 ML ML SQ SCH ×4 (07:30→20:58)
--- NOTE | 2020-10-03 07:39 | RAD REPORT ---
EXAM DESCRIPTION: Yamileth Single View10/03/2020 4:40 am CLINICAL HISTORY: Chest pain COMPARISON: September 2020 FINDINGS: The lungs appear clear of acute infiltrate. The heart is borderline enlarged IMPRESSION: No acute abnormalities displayed
--- NOTE | 2020-10-03 07:45 | RAD REPORT ---
EXAM DESCRIPTION: Yamileth Single View10/02/2020 10:03 pm CLINICAL HISTORY: Chest pain COMPARISON: 2019 FINDINGS: The lungs appear clear of acute infiltrate. The heart is borderline enlarged IMPRESSION: No acute abnormalities displayed
--- NOTE | 2020-10-03 08:02 | RAD REPORT ---
EXAM DESCRIPTION: USExtrem Venous W Compress Bil10/02/2020 9:51 pm CLINICAL HISTORY: Leg swelling COMPARISON: 2019 FINDINGS: The common femoral, superficial femoral, popliteal and posterior tibial veins bilaterally are compressible and demonstrate augmentation. Doppler demonstrates good flow. IMPRESSION: No evidence of deep venous thrombosis involving either lower extremity.
[2020-10-03] MEDS: METOPROLOL TAR 50 MG TAB PO SCH ×2 (08:46→20:57)
[2020-10-03] MEDS: ASPIRIN 81 MG CHEWABLE TABLET PO SCH (08:46)
[2020-10-03] MEDS: lisinopriL 20 MG TAB PO SCH (08:46)
[2020-10-03] MEDS: DOXAZOSIN 2 MG TAB PO SCH ×2 (08:46→20:57)
[2020-10-03] MEDS: FUROSEMIDE 40 MG TABLET PO SCH (08:47)
[2020-10-03] MEDS: AMLODIPINE 5 MG TAB PO SCH ×2 (08:47→20:58)
[2020-10-03] MEDS: HYDRALAZINE HCL 10 MG TABLET PO SCH ×2 (08:50→20:58)
[2020-10-03] MEDS: ENOXAPARIN 30 MG/0.3 ML SQ SCH ×2 (08:51→20:59)
[2020-10-03] MEDS ORDERED: PIPER/TAZO/NS 3.375gm 3.375 GM/100 ML BAG IVPB SCH (09:00)
[2020-10-03] MEDS ORDERED: FAMOTIDINE 20 MG/2 ML VIAL IV SCH (09:00)
[2020-10-03] MEDS ORDERED: ASPIRIN EC 81 MG TAB PO SCH (09:00)
--- NOTE | 2020-10-03 15:04 | RAD REPORT ---
EXAM DESCRIPTION: CT - Chest Abdomen Pelvis W Cont - 10/02/2020 10:45 pm COMPARISON: CT abdomen pelvis May 29, 2019 CLINICAL HISTORY: [facility] MAIN COUGH TECHNIQUE: CT images through the chest, abdomen, and pelvis following IV contrast. Multiplanar refor mats. Automated exposure control was utilized on this examination as a dose lowering technique. CT CHEST FINDINGS: Heart and mediastinum: Heart size is normal. No lymphadenopathy. Thyroid gland: Visualized portions are normal. Lungs: Clear. Airways: No filling defects. No bronchiectasis. Pleura: No pneumothorax. No significant pleural effusion. Musculoskeletal and soft tissues: Thoracic spondylosis is present. CHEST IMPRESSION: No acute chest process. CT ABDOMEN & PELVIS FINDINGS: Liver: Enlarged measuring 17.4 cm midclavicular line. Gallbladder and biliary: Gallstones measure up to 2.4 cm. Unremarkable biliary tree. Pancreas: Normal. Spleen: Normal. Kidneys and adrenal glands: Normal adrenal glands. Normal kidneys Stomach and Small Bowel: The stomach and small bowel are normal. Urinary bladder: Normal. Prostate/Male Urogenital: Normal. Colon and Appendix: The colon is unremarkable. No evidence of appendicitis. Peritoneal cavity: No ascites or free air. Retroperitoneum and lymph nodes: Retroperitoneal lymph nodes are mildly increased in number but not i n size and are favored to be reactive. Vascular: Mild atherosclerosis. Musculoskeletal and soft tissues: Soft tissues are unremarkable. No aggressive bone lesions. No com pression fracture. Lumbar spondylosis is present. ABDOMEN AND PELVIS IMPRESSION: 1. No acute intra-abdominal abnormality. 2. Mild hepatomegaly. 3. Cholelithiasis. Electronically signed by: Michael Khan MD 10/02/2020 11:15 PM CDT Due to temporary technical issues with the PACS/Fluency reporting system, reports are being signed by the in house radiologists without review as a courtesy to insure prompt reporting. The interpreting radiologist is fully responsible for the content of the report.
[2020-10-03] MEDS ORDERED: FUROSEMIDE 40 MG TABLET PO SCH (17:00)
--- NOTE | 2020-10-03 17:41 | EKG ---
Test Date: 2020-10-03 Test Time: 09:09:22 Arts And Crafts Teacher: PRAVEEN MEASUREMENT RESULTS: Intervals: Rate: 72 ID: [id number] QRSD: 106 QT: 392 QTc: 429 [place]: P: 41 ID: [id number] QRS: 75 T: 53 INTERPRETIVE STATEMENTS: Normal sinus rhythm Incomplete right bundle branch block Borderline ECG Compared to ECG 10/02/2020 20:01:05 No significant changes Electronically Signed On 10-03-20 17:40:00 CDT by Ifeanyi Blood
--- NOTE | 2020-10-03 17:43 | EKG ---
Test Date: 2020-10-02 Test Time: 20:01:05 Business Sales Consultant: JASS MEASUREMENT RESULTS: Intervals: Rate: 75 [place]: 120 QRSD: 100 QT: 382 QTc: 426 [place]: P: 46 [place]: 120 QRS: 89 T: 33 INTERPRETIVE STATEMENTS: Normal sinus rhythm Incomplete right bundle branch block Borderline ECG Compared to ECG 08/30/2019 08:18:41 No significant changes Electronically Signed On 10-03-20 17:40:16 CDT by Ifeanyi Blood
--- NOTE | 2020-10-03 23:52 | HP ---
Date of Admission: 10/03/2020 Chief Complaint: Abdominal pain and fever. History Of Present Illness: This is a 55-year-old male patient, who came into emergency room after I talked to him yesterday evening with complaints of lower abdominal pain and fever. The patient had fever and chills, and came to emergency room on 09/14/2020 and at that time after he was evaluated in the ER, he was sent home with antibiotic. He says he was doing fine until day before yesterday, he started to have fever and lower abdominal pain. I talked to him yesterday evening and evaluated him via TeleVisit and he was advised to come to emergency room. He denies any redness of his legs skin. No cough or congestion. No shortness of breath. No urinary complaints. After he came to emergency room, he was evaluated and admitted to the hospital. All of his vital signs since he came to emergency room has shown normal temperature. Allergies: NO KNOWN ALLERGIES. Medications: List reviewed. Review of Systems: GI: As mentioned above. Constitutional: As mentioned above. All other systems reviewed and negative. Social History: Negative for smoking or alcohol use. Family History: Significant for colon cancer and prostate cancer. Past Surgical History: Sinus surgery. Past Medical History: Hypertension, obstructive sleep apnea, cervical spinal stenosis, type 2 diabetes mellitus, lumbar radiculopathy, hyperlipidemia, recurrent cellulitis of lower extremity, and coronary artery disease. Physical Examination: Vital Signs: Last temperature this morning 98.4, pulse 71, respiratory rate 17, blood pressure 127/59, oxygen saturation 96%. Height 5 feet 10 inches, weight 357 pounds. General: Awake, alert, oriented, not in distress. HEENT: Head atraumatic, normocephalic. Conjunctivae nonerythematous. Sclerae white. Mouth, no thrush or edema noted. Ears/Nose, no mass, lesion, discharge noted. Neck: Supple. No JVD, lymph nodes, bruit, thyromegaly noted. Lungs: Bilateral good equal air entry. Clear to auscultation. No rhonchi. No rales. Heart: Normal heart sounds. No murmur or gallop. Abdomen: The patient has mild tenderness in lower abdomen in suprapubic region. No hepatosplenomegaly. No distention. Bowel sounds normoactive. Extremities: Bilateral grade 1 pedal edema. No evidence of any redness or warmness. No open wound. Skin: No rash, ulcer, cellulitis. Lymphatics: No lymph node enlargement in neck, supraclavicular, infraclavicular region. Neuro: No focal neurological deficit. Chest: Unremarkable. External Genitalia: Deferred. Rectal: Deferred. Laboratory Data: Initial white count was 7.9, hemoglobin 11.1, platelets 264. This morning, white count 6.7, hemoglobin 10.7, platelets 250. Initial sodium 140, potassium 3.9, chloride 105, bicarb 31, BUN 21, creatinine 1.11, glucose 137. Liver function tests unremarkable. Troponin less than 0.02 on the first set. Lipase 84. Second set of the cardiac enzyme with troponin less than 0.02. This morning, BUN 22, creatinine 1, sodium 140, potassium 4.5, chloride 107, bicarb 21. Urinalysis negative, except 2+ blood. Influenza A, B, and COVID-19 test negative. CAT scan of abdomen and pelvis, no acute intraabdominal changes reported. Impression: 1. Abdominal pain. 2. Fever. 3. Coronary artery disease. 4. Hypertension. 5. Hyperlipidemia. 6. Type 2 diabetes mellitus. 7. Sleep apnea. Plan: We will admit the patient to the hospital for further evaluation and management of this problem. The patient is appropriate for inpatient and is expected to spend 2 midnights in hospital. Home medications will be continued per order. Diabetes will be managed with sliding scale insulin. We will go ahead and continue empiric antibiotics, Zosyn, which was started in the emergency room and follow up on culture results. I will see him tomorrow for followup. Details and plan of treatment discussed with the patient. Hospital records from emergency room visit from 09/14/2020 reviewed. WALT/MODL Voice ID: [id number] MTDD
[2020-10-04] MEDS: PIPER/TAZO/NS 3.375gm 3.375 GM/100 ML BAG IVPB SCH ×2 (00:29→07:47)
[2020-10-04 04:31] VITALS: BMI 49.9
[2020-10-04 07:32] VITALS: O2SAT 98
[2020-10-04] MEDS: INSULIN -REGULAR HUMAN 50 UNIT/0.5 ML ML SQ SCH (07:47)
[2020-10-04] MEDS: ASPIRIN 81 MG CHEWABLE TABLET PO SCH (07:48)
[2020-10-04] MEDS: lisinopriL 20 MG TAB PO SCH (07:48)
[2020-10-04] MEDS: DOXAZOSIN 2 MG TAB PO SCH (07:48)
[2020-10-04] MEDS: AMLODIPINE 5 MG TAB PO SCH (07:49)
[2020-10-04] MEDS: HYDRALAZINE HCL 10 MG TABLET PO SCH (07:49)
[2020-10-04] MEDS: METOPROLOL TAR 50 MG TAB PO SCH (07:49)
[2020-10-04] MEDS: ENOXAPARIN 30 MG/0.3 ML SQ SCH (07:49)
[2020-10-04] MEDS: FUROSEMIDE 40 MG TABLET PO SCH (07:49)
[2020-10-04 09:35] VITALS: BP 141/65; TEMP 98.4
--- NOTE | 2020-10-05 08:03 | DS ---
Date of Discharge: 10/04/2020 Disposition: Discharged to go home. Physical Examination: HEENT: Unremarkable. Lungs: Clear to auscultation. Heart: Sounds normal. Abdomen: Soft. Bowel sounds normal. No guarding, rigidity, tenderness, distention. Extremities: No leg edema. Discharge Medications And Instructions: 1.Continue all prior home medications. 2.Take Augmentin 875 mg 2 times a day with food for 10 days. 3.Follow up at my office next week on Friday, which is 10/10/2020. Hospital Course: This is a 55-year-old male patient admitted to the hospital with complaints of feve r and abdominal pain. Please see dictated H and P for more information. The patient reported that lisa gutierrez had a fever at home anywhere between 100 to 101 degrees Fahrenheit. After he was evaluated in the ER, he was admitted to the hospital. His CAT scan of the abdomen was negative for any acute intraabd ominal changes. It did show mild hepatomegaly and gallstones. His abdominal pain was in the suprapu bic region. He does not have any tenderness in the right upper quadrant. He was started on empiric antibiotic, Zosyn. There was no evidence of any cellulitis on physical exam. Overall, his condition improved, his abdominal pain has resolved, and throughout this hospital, the patient did not have an y fever. His maximum temperature during this hospital stay was 98.9. Today, when I saw him, he had no abdominal pain. Overall, he is feeling much better. No other complaints reported. Final Diagnoses: 1.Abdominal pain. 2.Fever. 3.Coronary artery disease. 4.Hypertension. 5.Hyperlipidemia. 6.Type 2 diabetes mellitus. 7.Obstructive sleep apnea. The patient may return to work tomorrow. WALT/MODL Voice ID: [id number] Report ID: [id number]
== END 2020-10-04 10:25 | disposition home or self-care (01) ==
LOC: ER 19:22 → ERHOLD 21:18 → 2ND 10-03 01:22
PROVIDERS: ADMIT Internal Medicine; ATTEND Internal Medicine
DX: R50.9 Fever, unspecified (principal); R10.9 Unspecified abdominal pain; I25.10 Atherosclerotic heart disease of native coronary artery without angina pectoris; I10 Essential (primary) hypertension; E78.5 Hyperlipidemia, unspecified; Z20.822 Contact with and (suspected) exposure to COVID-19; E11.9 Type 2 diabetes mellitus without complications; G47.33 Obstructive sleep apnea (adult) (pediatric); M54.16 Radiculopathy, lumbar region
CPT/HCPCS: 93005 ×2; 87040 ×2; 87088; 85025 ×2; 87086; 80048 ×2; 36415; 82140; 83735; 85610; 82947 ×5; 80076; 83605; 81003; 84484 ×3; 83690; 83880; 0240U; 71260; 74177; 71045 ×2; 93970; 96375; 96374; 99285; Q9967; J2543 ×3; J1650 ×3; J7030; G0378

== ENCOUNTER 2020-12-15 18:26 | Emergency (ER) | payer BC ==
--- OUTSIDE RECORDS SUMMARY | 2020-12-15 19:01 | XMS REPORT | Continuity of Care Document ---
:1965 Author Organization [facility] t Address [address] [place] [address] [place] [address] Care Team Providers Name Role Phone Ellen Pantoja Attending Clinician [phone] Only, Test Attending Clinician Unavailable Doctor Unassigned, [...] LUMBAR 00:00: Mitesh STENOSIS 00 Active 04/08/2017 [facility] M54.16 Diagnosis Active 2016-052017-03-19 Mem oria 0-25 10:29:00 l M54.16 00:00: Mitesh 00 Active 03/19/2017 [facility] Abdominal Problem Resolve 2017-12-07 M emoria pain d 00:03:51 l (finding) [place] Abdominal pain (finding) Resolved Problem 12/07/2017 [facility] Chest pain Problem Resolve 2017-12-07 Memoria (finding) d 00:03:51 l Chest Mitesh pain (finding) Resolved Problem 12/07/2017 [facility] Chronic Problem Resolve 2017-12-07 Mem oria back pain d 00:03:51 l (disorder) Chronic Her mauricio back pain (disorder) Resolved Problem 12/07/2017 [facility] Diabetes Problem Active 2017-12-07 Mem oria mellitus 00:03:51 l (disorder) Diabetes He rmann mellitus (disorder) Active Problem 12/07/2017 [facility] Hyperchole Problem Active 2017-12-07 M emoria sterolemia 00:03:51 l (disorder) Gabo n Hyperchole sterolemia (disorder) Active Problem 12/07/2017 [facility] Hypertensi Problem Active 2017-12-07 M emoria ve 00:03:51 l disorder, Mitesh systemic Hypertensi arterial ve (disorder) disorder, systemic arterial (disorder) Active Problem 12/07/2017 [facility] Morbid Problem Active 2017-12-07 Memor ia obesity 00:03:51 l (disorder) Morbid Herm chacorta obesity (disorder) Active Problem 12/07/2017 [facility] Prolapsed Problem Active 2017-12-07 Me moria lumbar 00:03:51 l interverte Gabo n bral disc Prolapsed (disorder) lumbar interverte bral disc (disorder) Active Problem 12/07/2017 [facility] Allergies, Adverse Reactions, Alerts Allergy Allergy Status Severity Reaction(s) Onset Inactive Treating Comm ents Source Name Type Date Date Clinician No Known DA Active [facility]ie 02-01 [place] [facility] 00:00: [facility] Social History Smoking Status Start Date Stop Date Source Social History 2017-06-05 17:47:50 2017-06-05 17:47:50 [facility] Medications Ordered Filled Start Stop [...] , # 150 tab, 2 Refill(s), Pharmacy: [facility] diclofenac 2016-05 Yes 75 mg = 1 Me moria sodium 75 2-01 tab, PO, l mg oral 14:52: BID, PRN Gabo n enteric 00 Pain Score coated, 7-10, # 60 delayed-rel tab, 2 ease tablet Refill(s), Pharmacy: [facility] Cyclobenzap 2016-05 Yes 10 mg = 1 M emoria rine 2-01 tab, PO, l hydrochlori 14:52: BID, # 60 H ermann de 10 MG 00 tab, 2 Oral Tablet Refill(s), [Flexeril] Pharmacy: [facility] Sodium 2016-05 Yes 4.2 mL, Memoria Chloride 06-26 Route: l 14:50: EPIDURAL, [place] 00 Dosing Weight 141.364, kg, ONCE, (Preservat liliana Free), Start date: 04/25/17 8:50:00 ENERGY SCHEDULER, Stop date: 04/25/17 8:50:00 ENERGY SCHEDULER Lidocaine 2016-05 Yes 3 mL, Memoria Hydrochlori 06-26 Route: l de 10 MG/ML 14:50: SUB-Q, Herm chacorta Injectable 00 Dosing Solution Weight 141.364, kg, ONCE, (Preservat liliana Free), Start date: 04/25/17 8:50:00 ENERGY SCHEDULER, Stop date: 04/25/17 8:50:00 ENERGY SCHEDULER Omnipaque 2016-05 Yes 2 mL, Memoria 300 06-26 Route: l 14:50: EPIDURAL, Mitesh 00 Dosing Weight 141.364, kg, ONCE, (Preservat liliana Free), Start date: 04/25/17 8:50:00 ENERGY SCHEDULER, Stop date: 04/25/17 8:50:00 ENERGY SCHEDULER Dexamethaso 2016-05 Yes 8 mg, Memor ia ne 06-26 Route: l 14:50: EPIDURAL, Mitesh 00 ONCE, Dosing Weight 141.364, kg, (Preservat liliana Free), Start date: 04/25/17 8:50:00 ENERGY SCHEDULER, Stop date: 04/25/17 8:50:00 ENERGY SCHEDULER Bupivacaine 2017- Yes 2 mL, Memor ia Hydrochlori 06-26 Route: l de 2.5 14:50: EPIDURAL, Gabo n MG/ML 00 Dosing Injectable Weight Solution 141.364, kg, ONCE, (Preservat liliana Free), Start date: 04/25/17 8:50:00 ENERGY SCHEDULER, Stop date: 04/25/17 8:50:00 ENERGY SCHEDULER Vital Signs Vital Name Observation Time Observation Value Comments Source Height 2017-06-05 17:46:00 177.8 cm [facility] Weight 2017-06-05 17:46:00 [facility] BMI Calculated 2017-06-05 17:46:00 Memori al [place] Systolic (mm Hg) 2017-06-05 17:46:00 Chuck rial [place] Diastolic (mm Hg) 2017-06-05 17:46:00 Mem orial [place] Temperature Oral (F) 2017-06-05 17:46:00 99.3 F [facility] Heart Rate 2017-06-05 17:46:00 [facility] BMI Calculated 2017-04-29 15:23:00 Memori al [place] Weight 2017-04-29 15:23:00 [facility] Mitesh Height 2017-04-29 15:23:00 177.8 cm [facility] Mitesh Heart Rate 2017-04-29 15:00:00 [facility] [place] Respitory Rate 2017-04-29 15:00:00 Memori al Mitesh Systolic (mm Hg) 2017-04-29 15:00:00 Chuck rial Mitesh Diastolic (mm Hg) 2017-04-29 15:00:00 Mem orial [place] Procedures Procedure Date / Time Performed Performing Clinician [facility] e Myelography via lumbar 2017-04-29 16:14:00 Memor ial Mitesh injection, including radiological supervision and interpretation; thoracic Myelography via lumbar 2017-04-29 16:14:00 Memor ial [place] injection, including radiological supervision and interpretation; lumbosacral NJX INTERLAMINAR LMBR/SA 2017-04-25 14:50:00 Mem orial Mitesh Ear operations [facility] [place] Lumbar epidural injection Memori al [place] Lumbar epidural steroid [facility] [place] injection Nose operation [facility] [place] Operation [facility] Mitesh Encounters Start End Encounter Admission Attending Care Care Encounter Source Date/Time Date/Time Type Type Clinicians Facility Department ID 2020-09-13 2020-09-13 Outpatient FLORENCE Pantoja [id number] 00:00:00 00:00:00 Ellen [id number] Evon [id number] 2020-02-02 2020-02-02 Laboratory Only, [place] [id number] 11:14:48 11:29:48 Only Test [place] [id number] [place] 4.2.7.2.686 [place] [id number] 2020-02-02 2020-02-02 Orders Doctor DULCE [id number] 00:00:00 00:00:00 Only Unassigned, [place]IM[place] [id number] [place] [facility] [id number] [id number] 2020-01-05 2020-01-05 Telephone Atkins, [facility] [id number] 00:00:00 00:00:00 [place] [id number] [place] [id number] Professio [id number] [address] 2019-06-16 2019-06-16 Telephone Atkins, [facility] [id number] 00:00:00 00:00:00 [place] [id number] [place] [id number] Professio [id number] [address] 2019-06-09 2019-06-09 Telephone Atkins, [facility] [id number] 00:00:00 00:00:00 [place] [id number] [place] [id number] Professio [id number] [address] 2019-02-10 2019-02-10 Telephone Atkins, [facility] [id number] 00:00:00 00:00:00 [place] [id number] [place] [id number] Professio [id number] [facility] [address] [facility] 2018-12-13 2018-12-13 Orders Doctor DULCE [id number] 00:00:00 00:00:00 Only Unassigned, [place] [id number] [place] [facility] [id number] [id number] 2018-11-27 2018-11-27 Refill Atkins, [place] [id number] 00:00:00 00:00:00 Anupam Robert [id number] [place] 4.2.7.2.686 Professio [id number] [facility] [address] [facility] 2017-12-04 2017-12-04 Outpatient Sid Dulce M[facility] M[facility]ISCHER [id number] 10:30:00 10:30:00 C 07 2017-06-06 2017-06-07 Outpatient MHMISCHER MHMISCHER [id number] 14:31:00 23:59:59 09 2017-06-06 2017-06-07 Outpatient MHMISCHER M[facility]ISCHER [id number] 14:31:00 23:59:59 09 2017-06-05 2017-06-05 Outpatient Sid, Dulce M[facility] M[facility]ER [id number] 11:30:00 23:59:59 C 05 2017-06-05 2017-06-05 Outpatient SidDulce thomas [facility] M[facility] [id number] 11:30:00 23:59:59 C 2017-04-30 2017-05-01 Outpatient MHMISCHER MHMISCHER [id number] 11:52:00 23:59:59 08 2017-04-29 2017-04-29 Outpatient Sid Dulce [facility] [id number] 08:20:00 23:59:00 C 00 2017-04-25 2017-04-25 Outpatient Edin [facility] M[facility] [id number] 08:00:00 23:59:59 Camacho Cook 06 2017-04-24 2017-04-25 Outpatient M[facility]ISCHER M[facility] [id number] 16:30:00 23:59:59 07 2017-04-24 2017-04-25 [id number] 16:27:00 23:59:59 06 2017-03-19 2017-03-19 Outpatient Manjinder Kowalski [facility] [id number] 10:22:00 23:59:00 Hwkevin 98 Results Test Description Test Time Test Comments Results Result Comments Source GLUBED 2020-02-08 15:58:00 Test Item Value Reference Range Interpretation Comme nts GLUBED (test code = GLUBED) 147 MG/DL 70-105 H [id number] 16:42:00 Test Item Value Reference Range Interpretation Comments PTT (test code = PTT) 29.4 s 22.9-35.8 [facility] [id number] 16:42:00 Test Item Value Reference Range Interpretation Comments PT (test code = PT) 12.8 s 12.0-14.7 [facility] [id number] 16:42:000.96[facility] PANEL 2017-04-29 15:26:0095[facility]annCHEM [id number] 15:26:000.92[facility] HermannCHEM [id number] 15:26:0021[facility] [id number] 15:26:0084.7[facility] [id number] 15:26:0041.3[facility] [place] [id number] 15:26:00 Test Item Value Reference Range Interpretation Comments MCH (test code = MCH) 27.9 pg 27.0-31.0 [facility] [id number] 15:26:0032.9[facility] HermannHEMATOLOGY 2017-04-29 15:26:007.2[facility]orial [id number] 15:26:004.87[facility]orial [id number] 15:26:0013.6Memorial [id number] 15:26:0016.1[facility]orial [id number] 15:26:31327Dluowzpu Mitesh [id number] 15:26:008.0[facility]orial [id number] 05:57:00 Test Item Value Reference Range Interpretation [...] 4 - SerumAlbu min)] EGFR if >60 Italian (test code mL/min/1.73m\\ = EGFRAA) S\\2 EGFR if Non- >60 Estimate d Glomerular Italian (test code mL/min/1.73m\\ Filtrat ion Rate (eGFR) [...] c hronic kidney failure. CBC WITH AUTO [id number] 05:42:00 Test Item Value Reference Range Interpretation [...] code = 1.0 % 0.0-0.4 H IG%) [id number] 05:53:00 Test Item Value Reference Range Interpretation [...] 4 - SerumAlbu min)] EGFR if >60 Italian (test code mL/min/1.73m\\ = EGFRAA) S\\2 EGFR if Non- >60 Estimate d Glomerular Italian (test code mL/min/1.73m\\ Filtrat ion Rate (eGFR) [...] c hronic kidney failure. CBC WITH AUTO [id number] 05:27:00 Test Item Value Reference Range Interpretation [...] code = 1.7 % 0.0-0.4 H IG%) [id number] 04:36:00 Test Item Value Reference Range Interpretation [...] 4 - SerumAlbu min)] EGFR if >60 Italian (test code mL/min/1.73m\\ = EGFRAA) S\\2 EGFR if Non- >60 Estimate d Glomerular Italian (test code mL/min/1.73m\\ Filtrat ion Rate (eGFR) [...] c hronic kidney failure. CBC WITH AUTO [id number] 04:14:00 Test Item Value Reference Range Interpretation [...] code = 1.9 % 0.0-0.4 H IG%) [id number] 04:40:00 Test Item Value Reference Range Interpretation [...] 4 - SerumAlbu min)] EGFR if >60 Italian (test code mL/min/1.73m\\ = EGFRAA) S\\2 EGFR if Non- >60 Estimate d Glomerular Italian (test code mL/min/1.73m\\ Filtrat ion Rate (eGFR) [...] c hronic kidney failure. CBC WITH AUTO [id number] 04:09:00 Test Item Value Reference Range Interpretation [...] = 2.4 % 0.0-0.4 H IG%) CULTURE, [id number] 06:50:00To start 15mins after 1st cultureSpecimen: BloodCollected: 01/18/2017 04:05 Status: Final Last Updated: 01/23/2017 06:49 (1) To start 15mins after 1st culture Culture Result (Final) (Final) No Growth After 5 DaysCULTURE, [id number] 06:50:00Specimen: BloodCollected: 01/18/2017 03:55 Status: Final Last [...] code = 3.4 % 0.0-0.4 H IG%) [id number] 04:19:00 Test Item Value Reference Range Interpretation [...] 4 - SerumAlbu min)] EGFR if >60 Italian (test code mL/min/1.73m\\ = EGFRAA) S\\2 EGFR if Non- >60 Estimate d Glomerular Italian (test code mL/min/1.73m\\ Filtrat ion Rate (eGFR) [...] c hronic kidney failure. CBC WITH AUTO [id number] 04:57:00 Test Item Value Reference Range Interpretation [...] 4.0 % 0.0-0.4 H IG%) CBC AUTO [id number] 04:35:00 Test Item Value Reference Range Interpretation [...] 4 - SerumAlbu min)] EGFR if >60 Italian (test code mL/min/1.73m\\ = EGFRAA) S\\2 EGFR if Non- >60 Estimate d Glomerular Italian (test code mL/min/1.73m\\ Filtrat ion Rate (eGFR) [...] c hronic kidney failure. CBC WITH AUTO [id number] 05:01:00 Test Item Value Reference Range Interpretation [...] 4.5 % 0.0-0.4 H IG%) CBC AUTO [id number] 04:56:00 Test Item Value Reference Range Interpretation [...] 4 - SerumAlbu min)] EGFR if >60 Italian (test code mL/min/1.73m\\ = EGFRAA) S\\2 EGFR if Non- >60 Estimate d Glomerular Italian (test code mL/min/1.73m\\ Filtrat ion Rate (eGFR) [...] c hronic kidney failure. CBC WITH AUTO [id number] 05:57:00 Test Item Value Reference Range Interpretation [...] code = 4.8 % 0.0-0.4 H IG%) [id number] 05:41:00 Test Item Value Reference Range Interpretation Comments Magnesium (test code = MG) 2.0 mg/dl 1.6-2.3 [id number] 05:41:00 Test Item Value Reference Range Interpretation [...] 4 - SerumAlbu min)] EGFR if >60 Italian (test code mL/min/1.73m\\ = EGFRAA) S\\2 EGFR if Non- >60 Estimate d Glomerular Italian (test code mL/min/1.73m\\ Filtrat ion Rate (eGFR) [...] of c hronic kidney failure. LACTIC ACID [id number] 06:43:00 Test Item Value Reference Range Interpretation Comments LACTATE (test code = LAC) 0.9 mmol/l 0.7-2.0 GLYCOSALATED [id number] 05:41:00 Test Item Value Reference Range Interpretation Comments Hemoglobin A1C (test 9.06 % 4.3-6.0 A code = GLYCO) Mean Plasma Glucose 245 mg/dl 90-180 WHEN BONIFACIO T RESULTS FOR (test code = MPG) A1C EXCEED 14.0, THE LINEAR LIMIT OF THE INSTRUMENT, THE CALCULATED RESU LT FOR THE MEAN GLUCOS E IS NOT RELIABLE. CORONARY [id number] 05:09:00 Test Item Value Reference Range Interpretation [...] (test code = 37 mg/dl 30-60 VLDL) [id number] 04:51:00 Test Item Value Reference Range Interpretation Comments Magnesium (test code = MG) 2.1 mg/dl 1.6-2.3 [id number] 04:51:00 Test Item Value Reference Range Interpretation Comments CPK (test code = CPK) 93 U/L 30-135 [id number] 04:43:00 Test Item Value Reference Range Interpretation [...] 4 - SerumAlbu min)] EGFR if >60 Italian (test code mL/min/1.73m\\ = EGFRAA) S\\2 EGFR if Non- >60 Estimate d Glomerular Italian (test code mL/min/1.73m\\ Filtrat ion Rate (eGFR) [...] and management of c hronic kidney failure. LIPASE, [id number] 04:43:00 Test Item Value Reference Range Interpretation Comments Lipase (test code = LIPA) 116 U/L 8-223 CBC (HEMOGRAM ONLY)2017-01-18 04:37:00 Test Item Value [...]
--- NOTE | 2020-12-15 20:14 | RAD REPORT ---
EXAM DESCRIPTION: CT - Pelvis Wo Cont - 12/15/2020 8:01 pm CLINICAL HISTORY: PAIN COMPARISON: No comparisonsNo comparisonsNo comparisons FINDINGS: No pelvic fractures identified. Bilateral inguinal lymphadenopathy which is nonspecific. H ydroceles are present. Scrotal thickening is noted. Mild body wall edema. Prominent iliac chain lymph nodes noted as well. Skin thickening along the patient's pannus. IMPRESSION: Symmetric inguinal and iliac chain lymphadenopathy likely reactive. Scrotal edema noted as well.
[2020-12-15] MEDS ORDERED: HYDROCODONE/APAP 10/325 TAB ONE (20:19)
--- NOTE | 2020-12-15 22:02 | RAD REPORT ---
EXAM DESCRIPTION: US - Scrotum Testicles - 12/15/2020 9:48 pm CLINICAL HISTORY: edema COMPARISON: Pelvis Wo Cont dated 12/15/2020 FINDINGS: Bilateral testicular blood flow is present. Small hydroceles are noted as well. No masses are seen. Echotexture is normal. The right testicle measures 4.4 x 2.9 x 3.1 centimeters with volume of 20.6 cc. The left testicle measures 4.6 x 3 x 2.9 centimeters with volume of 21.3 cc. IMPRESSION: Small bilateral hydroceles. Bilateral testicular blood flow is present.
--- NOTE | 2020-12-15 22:05 | EDPHYS ---
Physician Documentation [facility] Name: Nicola Harvey Age: 55 yrs Sex: Male : 1965 Arrival Date: 12/15/2020 Time: 18:29 Bed 20 Private MD: ED Physician Jhonathan Nieves HPI: 12/15 20:59 This 55 yrs old Male presents to ER via Ambulatory with complaints of Groin kb Pain. 20:59 Patient reports right groin pain that started 1-1/2 months ago. Pain worse with kb movement and change of position. Was seen by Dr. Mcknight on Friday for same complaint, has a follow-up with Dr. Alcazar this Friday. Denies fever nausea vomiting diarrhea injury falls or other trauma. . Onset: The symptoms/episode began/occurred 1.5 month(s) ago. Severity of symptoms: At their worst the symptoms were moderate in the emergency department the symptoms are unchanged. The patient has not experienced similar symptoms in the past. The patient has been recently seen by a physician: the patient's primary care provider. Historical: - Allergies: 18:48 Invokana; kg 18:48 Jardiance; kg - PMHx: 18:48 CHF; Diabetes - IDDM; Hypertension; Hyperlipidemia; lower back pain with injecitons; kg Obesity; - PSHx: 18:48 None; kg - Immunization history:: Adult Immunizations up to date, Client reports receiving the 2nd dose of the Covid vaccine, Date received: August 2020. - Social history:: Smoking status: Patient denies any tobacco usage or history of. Patient uses alcohol, occasionally. ROS: 21:01 Constitutional: Negative for fever, chills, and weight loss. kb 21:01 MS/extremity: Positive for pain, tenderness, of the right femoral area. 21:01 All other systems are negative. Exam: 21:01 Constitutional: This is a well developed, well nourished patient who is awake, alert, kb and in no acute distress. Head/Face: Normocephalic, atraumatic. ENT: Moist Mucous membranes Respiratory: Respirations even and unlabored. No increased work of breathing, no retractions or nasal flaring. Abdomen/GI: Soft, non-tender. No distention Skin: Warm, dry with normal turgor. Normal color. Neuro: Awake and alert, GCS 15, oriented to person, place, time, and situation. Moves all extremities. Normal gait. Psych: Awake, alert, with orientation to person, place and time. Behavior, mood, and affect are within normal limits. 21:01 Musculoskeletal/extremity: Extremities: grossly normal except: noted in the right femoral area: decreased ROM, pain, tenderness, ROM: limited active range of motion due to pain, in the right femoral area, Circulation is intact in all extremities. Sensation intact. Weight bearing: able to fully bear weight. Vital Signs: 18:46 BP 105 / 47; Pulse 69; Resp 22; Temp 98.5(TE); Pulse Ox 100% on R/A; Weight 164.65 kg kg (R); Height 5 ft. 11 in. (180.34 cm); Pain 10/10; 22:16 BP 128 / 50; Pulse 60; Resp 20; Pulse Ox 98% ; ea 18:46 Body Mass Index 50.63 (164.65 kg, 180.34 cm) kg MDM: 19:31 Patient medically screened. kb 20:24 Data reviewed: vital signs, nurses notes. Data interpreted: Pulse oximetry: on room air kb is 100 %. Interpretation: normal. Counseling: I had a detailed discussion with the patient and/or guardian regarding: the historical points, exam findings, and any diagnostic results supporting the discharge/admit diagnosis, radiology results, the need for outpatient follow up, a family practitioner, to return to the emergency department if symptoms worsen or persist or if there are any questions or concerns that arise at home. 12/15 19:44 Order name: CT Pelvis wo Cont; Complete Time: 20:15 kb 12/15 20:39 Order name: US Scrotum Testicles; Complete Time: 22:04 kb Administered Medications: 20:14 Drug: [place] (HYDROcodone-acetaminophen) 10 mg-325 mg 1 tabs Route: PO; ea 22:17 Follow up: Response: No adverse reaction ea Disposition Summary: 12/15/20 22:05 Discharge Ordered Location: Home kb Condition: Stable kb Diagnosis - Local infection of the skin and subcutaneous tissue, unspecified kb - Other nonspecific lymphadenitis kb Followup: kb - With: Emergency Department - When: As needed - Reason: Worsening of condition Followup: kb - With: Private Physician - When: 2 - 3 days - Reason: Recheck today's complaints, Continuance of care, Re-evaluation by your physician Discharge Instructions: - Discharge Summary Sheet kb - Cellulitis, Adult, [id number] kb Forms: - Medication Reconciliation Form kb - Thank You Letter kb - Antibiotic Education kb - Prescription Opioid Use kb Prescriptions: - Bactrim DS 800-160 mg Oral Tablet - take 1 tablet by ORAL route every 12 hours for 10 days; 20 tablet; Refills: 0, kb Product Selection Permitted - Diclofenac Sodium 75 mg Oral tablet,delayed release (DR/EC) - take 1 tablet by ORAL route 2 times per day As needed; 30 tablet; Refills: 0, kb Product Selection Permitted Addendum: 12/17/2020 05:54 Co-signature as Attending Physician, Jhonathan Nieves MD. [facility] Signatures: Dispatcher [employer] Osiris Ann FNP-C FNP-Penny Sims, KRUNAL RN Jhonathan Mars MD MD [facility] Niki Butler RN RN kg
--- NOTE | 2020-12-15 22:05 | ER ---
Nurse's Notes [facility] Name: Nicola Harvey Age: 55 yrs Sex: Male : 1965 Arrival Date: 12/15/2020 Time: 18:29 Bed 20 Private MD: Diagnosis: Local infection of the skin and subcutaneous tissue, unspecified;Other nonspecific lymphadenitis Presentation: 12/15 18:46 Chief complaint: Patient states: Right groin pain that has steadily gotten worse over kg the 2.5 months. Coronavirus screen: Client denies travel out of the [place] in the last 14 days. At this time, unable to obtain information related to travel outside the [place] At this time, the client does not indicate any symptoms associated with coronavirus-19. Ebola Screen: Patient negative for fever greater than or equal to 101.5 degrees Fahrenheit, and additional compatible Ebola Virus Disease symptoms Patient denies exposure to infectious person. Patient denies travel to an Ebola-affected area in the 21 days before illness onset. Initial Sepsis Screen: Does the patient meet any 2 criteria? No. Patient's initial sepsis screen is negative. Does the patient have a suspected source of infection? No. Patient's initial sepsis screen is negative. Risk Assessment: Do you want to hurt yourself or someone else? Patient reports no desire to harm self or others. Onset of symptoms was October 27, 2020. 18:46 Method Of Arrival: Ambulatory kg 18:46 Acuity: ANGE 4 kg Triage Assessment: 18:48 General: Appears in no apparent distress. Behavior is calm, cooperative, appropriate kg for age, quiet. Pain: Complains of pain in Right groin Pain currently is 10 out of 10 on a pain scale. at worst was 10 out of 10 on a pain scale. level that patient reports is acceptable is 5 out of 10 on a pain scale. Quality of pain is described as sharp, stabbing. Historical: - Allergies: 18:48 Invokana; kg 18:48 Jardiance; kg - PMHx: 18:48 CHF; Diabetes - IDDM; Hypertension; Hyperlipidemia; lower back pain with injecitons; kg Obesity; - PSHx: 18:48 None; kg - Immunization history:: Adult Immunizations up to date, Client reports receiving the 2nd dose of the Covid vaccine, Date received: August 2020. - Social history:: Smoking status: Patient denies any tobacco usage or history of. Patient uses alcohol, occasionally. Screenin:50 Abuse screen: Denies threats or abuse. Denies injuries from another. Nutritional kg screening: No deficits noted. Tuberculosis screening: No symptoms or risk factors identified. Fall Risk None identified. Fall in past 12 months (25 points). No secondary diagnosis (0 pts). No IV (0 pts). Ambulatory Aid- None/Bed Rest/Nurse Assist (0 pts). Gait- Normal/Bed Rest/Wheelchair (0 pts) Mental Status- Oriented to own ability (0 pts). Total Glover Fall Scale indicates No Risk (0-24 pts). Assessment: 19:45 General: Appears uncomfortable, Behavior is calm, cooperative, appropriate for age. ea Pain: Complains of pain in pelvis. Neuro: Level of Consciousness is awake, alert, obeys commands. Respiratory: Airway is patent Respiratory effort is even, unlabored, Respiratory pattern is regular, symmetrical. Derm: Skin is pink, warm \T\ dry. 20:35 Reassessment: Patient and/or family updated on plan of care and expected duration. Pain ea level reassessed. Patient is alert, oriented x 3, equal unlabored respirations, skin warm/dry/pink. 21:00 Reassessment: Patient and/or family updated on plan of care and expected duration. Pain ea level reassessed. Patient is alert, oriented x 3, equal unlabored respirations, skin warm/dry/pink. Awaiting on CT results. 21:41 Reassessment: Patient and/or family updated on plan of care and expected duration. Pain ea level reassessed. Patient is alert, oriented x 3, equal unlabored respirations, skin warm/dry/pink. Ultrasounds at bedside. 22:17 Reassessment: Patient and/or family updated on plan of care and expected duration. Pain ea level reassessed. Patient is alert, oriented x 3, equal unlabored respirations, skin warm/dry/pink. Discharge instruction given to patient verbalized the understaining of instruction. Vital Signs: 18:46 BP 105 / 47; Pulse 69; Resp 22; Temp 98.5(TE); Pulse Ox 100% on R/A; Weight 164.65 kg kg (R); Height 5 ft. 11 in. (180.34 cm); Pain 10/10; 22:16 BP 128 / 50; Pulse 60; Resp 20; Pulse Ox 98% ; ea 18:46 Body Mass Index 50.63 (164.65 kg, 180.34 cm) kg ED Course: 18:29 Patient arrived in ED. ds1 18:48 Triage completed. kg 18:50 Patient has correct armband on for positive identification. kg 19:30 Osiris Quiroz [facility]C [facility]. kb 19:30 Jhonathan Nieves MD is Attending Physician. kb 19:35 Penny Akers, RN is Primary Nurse. ea 19:50 Arm band placed on right wrist. Patient placed in an exam room, on a stretcher, on ea pulse oximetry. 20:01 CT Pelvis wo Cont In Process Unspecified. EDMS 21:48 US Scrotum Testicles In Process Unspecified. EDMS 22:16 No provider procedures requiring assistance completed. Patient did not have IV access ea during this emergency room visit. Administered Medications: 20:14 Drug: [place] (HYDROcodone-acetaminophen) 10 mg-325 mg 1 tabs Route: PO; ea 22:17 Follow up: Response: No adverse reaction ea Outcome: 22:05 Discharge ordered by MD. kb 22:17 Discharged to home ambulatory, with family. ea 22:17 Condition: stable 22:17 Discharge instructions given to patient, Instructed on discharge instructions, follow up and referral plans. medication usage, Demonstrated understanding of instructions, follow-up care, medications, Prescriptions given X 2. 22:17 Patient left the ED. ea Signatures: Dispatcher [employer] EDMS Osiris Quiroz FNP-C FNP-Ckb [place], Demi ds1 Penny Akers, RN RN Niki Nichols RN RN kg
[2020-12-15 22:24] VITALS: TEMP 98.5
[2020-12-15 22:26] VITALS: BP 128/50; O2SAT 98
== END 2020-12-15 22:17 | disposition home or self-care (01) ==
LOC: ER 18:26
DX: L08.9 Local infection of the skin and subcutaneous tissue, unspecified (principal); I88.8 Other nonspecific lymphadenitis; I10 Essential (primary) hypertension; Z88.8 Allergy status to other drugs, medicaments and biological substances
CPT/HCPCS: 72192; 76870; 99284

== ENCOUNTER 2021-06-04 17:58 | Emergency (ER) | payer BC ==
--- OUTSIDE RECORDS SUMMARY | 2021-06-04 18:04 | XMS REPORT | Continuity of Care Document ---
:1965 Author Organization [facility] t Address [address] [place] [address] Care Team Providers Name Role Phone Madi Harjeet Fine Primary Care Physician MIGUEL HUSAIN Attending Clinician Unavailable Nurse, Pob Immunization Attending Clinician Unavailable Miguel Husain DO Attending Clinician GC_[facility]_Hayes_A Attending Clinician Unavailable Evon Pantoja Attending Clinician [phone] Melani SARMIENTO Attending Clinician Unavailable Radha Attending Clinician Unavailable MONET Attending Clinician Unavailable Only, Test Attending Clinician Unavailable Doctor Unassigned, Name Attending Clinician Unavailable Wilbert AMBROSE Attending Clinician TARAPASADE Attending Clinician Unavailable BUSUEGO Attending Clinician Unavailable GC_EDEC_Hayes_A Admitting Clinician Unavailable MADI Admitting Clinician Unavailable TARAPASAHAIM Admitting Clinician Unavailable BUSJDGO Admitting Clinician Unavailable Payers Payer Name Policy Type Policy Number Effective Date Expiration Date [id number]00 OUT [facility]: [id number] ANTHEM BLUE CROSS (PPO) Problems Condition Condition Condition Status Onset Resolution Last Treating Co mments Source Name Details Category Date Date Treatment Clinician Date Cellulitis Cellulitis Disease Active U nivers of right of right 1-31 ity of lower lower 00:00: [place] extremity extremity 00 [facility] Cellulitis Cellulitis Disease Active 2017-05 U nivers of right of right 2-31 [place] Morbid Morbid Disease Active 2017-05 Univers obesity obesity 2-31 it[place] of with body [place] mass index mass index 00 Me dical of of Branch 40.0-49.9 40.0-49.9 Allergies, Adverse Reactions, Alerts Allergy Allergy Status Severity Reaction(s) Onset Inactive Treating Comm ents Source Name Type Date Date Clinician No Known DA Active U [facility]01 [facility] 00:00[facility] No Known DA Active U [facility] Allergie 02-01 [facility] 00:00: Health 00 [facility] NO KNOWN Drug Active Univers ALLERGIE Class ity of S [facility] Social History Social Habit Start Date Stop Date Quantity Comments Source Alcohol intake 2018-07-21 2018-07-21 Current [facility] 00:00:00 00:00:00 non-drinker of [facility] alcohol [place] (finding) Tobacco use and 2018-04-09 2018-04-09 Never used Universit y of exposure 00:00:00 00:00:00 [facility] Sex Ass[birth year] Universit y of 00:00:00 00:00:00 [facility] Smoking Status Start Date Stop Date Source Never smoker [facility] Medications Ordered Filled Start Stop Current Ordering Indication Dosage Frequency Signature Comments Components Source Medication Medication Date Date Medication? Clinician (SIG) Name Name insulin 2018-05 Yes [id number] 60U inject 60 Univers regular 0-24 Units ity of human 500 00:00: under the Varinder as unit/mL 00 skin 3 Medical injection (three) Branch times daily before meals. E11. 65 Insulin 2018- Yes Each 3 Univers Syringe-Nee 7-03 (three) ity o f dle U-100 1 00:00: times [place] mL 31 gauge 00 daily Medical x 5/16 Syrg before Branch meals. E11.65 insulin 2019-0 Yes [id number] 1{each} 1 Each 3 Univers U-500 5-28 (three) ity of syringe-nee 00:00: times [place] dle 1/2 mL 00 daily Medical 31 gauge x before Branch " Syrg meals. E11.65 metformin 2019-0 Yes [id number] 1000mg Take 2 Univers ER 500 mg 5-28 tablets by ity of 24 hr 00:00: mouth 2 [place] tablet 00 (two) Medical times Branch daily with meals. glimepiride 2019- Yes [id number] 4mg Take 1 Univers 4 mg tablet 5-28 tablet by ity of 00:00: mouth 2 [place] 00 (two) Medical times Branch daily with meals. pravastatin 2018- Yes [id number] 20mg Take 1 Univers 20 mg 5-28 tablet by ity of tablet 00:00: mouth at [place] 00 bedtime. Medical Branch metoprolol 2018- Yes 50mg Take 50 mg U nivers tartrate 50 2-01 by mouth 2 it y of mg tablet 17:31: (two) [place] 53 times Medical daily. Branch lisinopril Yes 40mg Take 40 mg U nivers 40 mg 2-01 by mouth ity of tablet 17:31: daily. [place] [address] Medical Branch amLODIPine Yes 5mg Take 5 mg Un bria 5 mg tablet 2-01 by mouth ity of 17:31: daily. [address] Branch traMADOL 50 2018- Yes [id number] 50mg Take 1 Univers mg tablet 2- [id number] tablet by ity of 00:00: mouth 2 [place] 00 (two) Medical times [place] daily as needed for Pain (scale 4-6) or Pain (scale 7-10). hydroCHLORO 2017- Yes [id number] 25mg Take 1 Univers thiazide 25 2-14 tablet by ity of mg tablet 00:00: mouth [place] 00 daily. Medical Branch exenatide 2017-05 Yes [id number] 2mg inject 2 Univers microsphere 1-14 mg under ity of s (BYDUREON 00:00: [place] BCISE[place] 2 00 weekly. Medical mg/0.85 mL Branch AtIn Immunizations Ordered Filled Immunization Date Status Comments [facility] e Immunization Name Name SARS-COV-2 COVID-19 2021-04-12 Completed Unive rsity of PFIZER VACCINE 00:00:00 [facility] SARS-COV-2 COVID-19 2020-08-24 Completed Unive rsity of PFIZER VACCINE 00:00:00 [facility] SARS-COV-2 COVID-19 2020-08-03 Completed Unive rsity of PFIZER VACCINE 00:00:00 [facility] Influenza Virus 2018-06-26 Completed Universit y of Vaccine Quad .5 mL 00:00:00 [facility] 6+ MO [place] Procedures Procedure Date / Time Performed Performing Clinician Sourc e SARS-COV-2 COVID-19 2021-04-12 22:54:16 Doctor Unassigned, No Un iversity of [place] VACCINE,0.3ML,IM Name [facility] ([facility]) Encounters Start End Encounter Admission Attending Care Care Encounter Source Date/Time Date/Time Type Type Clinicians Facility Department ID 2021-04-12 2021-04-12 Outpatient R [facility]HER [facility] [id number] Univers 16:30:00 16:30:00 PAUL simon [facility] 2021-04-12 2021-04-12 Imm/Inj Nurse, Adc Pob Immunization [facility] [id number] Univers 16:14:33 16:14:42 Visit Paul Husain 350.1.13 .10 [place] [facility] 4.2.7.2.686 Elizabeth BENJAMIN [id number] [address] 2020-09-25 2020-09-25 Outpatient GC_[facility]_Hay PRIV PRIV [id number] [facility] 02:20:00 02:20:00 es_A [id number] Medica l 2020-09-19 2020-09-19 Outpatient GC_[facility]_Hay PRIV PRIV [id number] [facility] 02:41:00 02:41:00 es_A [id number] Medica l 2020-09-13 2020-09-13 Outpatient GC_EDEC_Hay PRIV PRIV [id number] [facility] 06:01:00 06:01:00 es_A [id number] Medica l 2020-09-13 2020-09-13 Outpatient Pantoja, PRIV PRIV [id number] 00:00:00 00:00:00 Ellen [id number] Evon [id number] 2020-09-11 2020-09-11 Outpatient GC_[facility]_Hay PRIV PRIV [id number] [facility] 12:06:00 12:06:00 es_A [id number] Medica l 2020-09-06 2020-09-06 Outpatient GC_[facility]_Hay PRIV PRIV [id number] [facility] 06:40:00 06:40:00 es_A [id number] Medica l 2020-08-24 2020-08-24 Outpatient R GUILLERMINA, [facility] [id number] Univers 14:40:00 14:40:00 JAZMIN [facility] 2020-08-03 2020-08-03 Outpatient [facility] [id number] Univers 14:40:00 14:40:00 [facility] 2020-02-08 2020-02-08 Outpatient PILI Garcia, [facility] DAYS [id number] [facility] 08:00:00 08:00:00 Neel [id number] [facility] 2020-02-02 2020-02-02 Outpatient R CHINO HEALY [facility] [id number] Univers 11:30:00 11:30:00 [facility] 2020-02-02 2020-02-02 Outpatient R [facility] [id number] Univers 11:30:00 11:30:00 [id number] [facility] 2020-02-02 2020-02-02 Laboratory Only, Adc [facility] [id number] 11:14:48 11:29:48 Only Test Santa Claus [id number] [place] 4.2.7.2.686 [place] [id number] 2020-02-02 2020-02-02 Orders Doctor DULCE [id number] 00:00:00 00:00:00 Only Unassigned, KIMBERLY 350.1.13.10 [place] [facility] 4.2.7.2.686 [id number] 2020-01-05 2020-01-05 Telephone Atkisn, [facility] [id number] 00:00:00 00:00:00 Anupam Santa [place] [id number] [place] [id number] Professio [phone] [address] 2019-06-16 2019-06-16 Telephone Atkins, [facility] [id number] 00:00:00 00:00:00 Yogiong Santa [place] [id number] [place] [id number] Professio [phone] [address] 2019-06-09 2019-06-09 Telephone Atkins, [facility] [id number] 00:00:00 00:00:00 Yogiong Santa [place] [id number] [place] [id number] Professio [id number] [address] 2019-02-10 2019-02-10 Telephone Atkins, [facility] [id number] 00:00:00 00:00:00 Ygoiong [place] [id number] [place] 4.2.7.2.686 Professio [phone] [address] 2018-12-13 2018-12-13 Orders Doctor [facility] [id number] 00:00:00 00:00:00 Only Unassigned, KIMBERLY [id number] [place] [facility] 4.2.7.2.686 [id number] 2018-11-27 2018-11-27 Refill Atkins, [facility] [id number] 00:00:00 00:00:00 Yogiong Santa [place] [id number] [place] 4.2.7.2.686 Professio [id number] [address] Results Test Description Test Time Test Comments Results Result Comments Source GLUBED 2020-02-08 15:58:00 Test Item Value Reference Range Interpretation Comme nts GLUBED (test code = GLUBED) 147 MG/DL 70-105 H [id number] 05:57:00 Test Item Value Reference Range Interpretation [...] 4 - SerumAlbu min)] EGFR if >60 Indonesian (test code mL/min/1.73m\\ = EGFRAA) S\\2 EGFR if Non- >60 Estimate d Glomerular Indonesian (test code mL/min/1.73m\\ Filtrat ion Rate (eGFR) [...] c hronic kidney failure. CBC WITH AUTO [id number] 05:42:00 Test Item Value Reference Range Interpretation [...] code = 1.0 % 0.0-0.4 H IG%) [id number] 05:53:00 Test Item Value Reference Range Interpretation [...] 4 - SerumAlbu min)] EGFR if >60 Indonesian (test code mL/min/1.73m\\ = EGFRAA) S\\2 EGFR if Non- >60 Estimate d Glomerular [place] (test code mL/min/1.73m\\ Filtrat ion Rate (eGFR) [...] c hronic kidney failure. CBC WITH AUTO [id number] 05:27:00 Test Item Value Reference Range Interpretation [...] code = 1.7 % 0.0-0.4 H IG%) [id number] 04:36:00 Test Item Value Reference Range Interpretation [...] 4 - SerumAlbu min)] EGFR if >60 [place] (test code mL/min/1.73m\\ = EGFRAA) S\\2 EGFR if Non- >60 Estimate d Glomerular Indonesian (test code mL/min/1.73m\\ Filtrat ion Rate (eGFR) [...] c hronic kidney failure. CBC WITH AUTO [id number] 04:14:00 Test Item Value Reference Range Interpretation [...] code = 1.9 % 0.0-0.4 H IG%) [id number] 04:40:00 Test Item Value Reference Range Interpretation [...] 4 - SerumAlbu min)] EGFR if >60 Indonesian (test code mL/min/1.73m\\ = EGFRAA) S\\2 EGFR if Non- >60 Estimate d Glomerular Indonesian (test code mL/min/1.73m\\ Filtrat ion Rate (eGFR) [...] c hronic kidney failure. CBC WITH AUTO [id number] 04:09:00 Test Item Value Reference Range Interpretation [...] = 2.4 % 0.0-0.4 H IG%) CULTURE, [id number] 06:50:00To start 15mins after 1st cultureSpecimen: BloodCollected: 01/18/2017 04:05 Status: Final Last Updated: 01/23/2017 06:49 (1) To start 15mins after 1st culture Culture Result (Final) (Final) No Growth After 5 DaysCULTURE, [id number] 06:50:00Specimen: BloodCollected: 01/18/2017 03:55 Status: Final Last [...] code = 3.4 % 0.0-0.4 H IG%) [id number] 04:19:00 Test Item Value Reference Range Interpretation [...] 4 - SerumAlbu min)] EGFR if >60 [place] (test code mL/min/1.73m\\ = EGFRAA) S\\2 EGFR if Non- >60 Estimate d Glomerular Indonesian (test code mL/min/1.73m\\ Filtrat ion Rate (eGFR) [...] c hronic kidney failure. CBC WITH AUTO [id number] 04:57:00 Test Item Value Reference Range Interpretation [...] 4.0 % 0.0-0.4 H IG%) CBC AUTO [id number] 04:35:00 Test Item Value Reference Range Interpretation [...] 4 - SerumAlbu min)] EGFR if >60 [place] (test code mL/min/1.73m\\ = EGFRAA) S\\2 EGFR if Non- >60 Estimate d Glomerular Indonesian (test code mL/min/1.73m\\ Filtrat ion Rate (eGFR) [...] c hronic kidney failure. CBC WITH AUTO [id number] 05:01:00 Test Item Value Reference Range Interpretation [...] 4.5 % 0.0-0.4 H IG%) CBC AUTO [id number] 04:56:00 Test Item Value Reference Range Interpretation [...] 4 - SerumAlbu min)] EGFR if >60 Indonesian (test code mL/min/1.73m\\ = EGFRAA) S\\2 EGFR if Non- >60 Estimate d Glomerular Indonesian (test code mL/min/1.73m\\ Filtrat ion Rate (eGFR) [...] c hronic kidney failure. CBC WITH AUTO [id number] 05:57:00 Test Item Value Reference Range Interpretation [...] code = 4.8 % 0.0-0.4 H IG%) [id number] 05:41:00 Test Item Value Reference Range Interpretation Comments Magnesium (test code = MG) 2.0 mg/dl 1.6-2.3 [id number] 05:41:00 Test Item Value Reference Range Interpretation [...] 4 - SerumAlbu min)] EGFR if >60 Indonesian (test code mL/min/1.73m\\ = EGFRAA) S\\2 EGFR if Non- >60 Estimate d Glomerular Indonesian (test code mL/min/1.73m\\ Filtrat ion Rate (eGFR) [...] of c hronic kidney failure. LACTIC ACID [id number] 06:43:00 Test Item Value Reference Range Interpretation Comments LACTATE (test code = LAC) 0.9 mmol/l 0.7-2.0 GLYCOSALATED [id number] 05:41:00 Test Item Value Reference Range Interpretation Comments Hemoglobin A1C (test 9.06 % 4.3-6.0 A code = GLYCO) Mean Plasma Glucose 245 mg/dl 90-180 WHEN BONIFACIO T RESULTS FOR (test code = MPG) A1C EXCEED 14.0, THE LINEAR LIMIT OF THE INSTRUMENT, THE CALCULATED RESU LT FOR THE MEAN GLUCOS E IS NOT RELIABLE. CORONARY [id number] 05:09:00 Test Item Value Reference Range Interpretation [...] (test code = 37 mg/dl 30-60 VLDL) [id number] 04:51:00 Test Item Value Reference Range Interpretation Comments Magnesium (test code = MG) 2.1 mg/dl 1.6-2.3 [id number] 04:51:00 Test Item Value Reference Range Interpretation Comments CPK (test code = CPK) 93 U/L 30-135 LIPASE, [id number] 04:43:00 Test Item Value Reference Range Interpretation Comments Lipase (test code = LIPA) 116 U/L 8-223 [id number] 04:43:00 Test Item Value Reference Range Interpretation [...] 4 - SerumAlbu min)] EGFR if >60 Indonesian (test code mL/min/1.73m\\ = EGFRAA) S\\2 EGFR if Non- >60 Estimate d Glomerular Indonesian (test code mL/min/1.73m\\ Filtrat ion Rate (eGFR) [...]
[2021-06-04] MEDS ORDERED: IBUPROFEN 400 MG TAB ONE (18:33)
[2021-06-04] MEDS ORDERED: ONDANSETRON 4 MG (ODT) TAB ONE (18:34)
--- NOTE | 2021-06-04 19:03 | RAD REPORT ---
EXAM DESCRIPTION: RAD - Chest Pa And Lat (2 Views) - 06/04/2021 6:55 pm CLINICAL HISTORY: FEVER Chest pain. COMPARISON: <Comparisons> FINDINGS: Mild interstitial prominence is present bilaterally likely representing viral infection. T he heart is normal in size. No displaced fractures.
[2021-06-04 19:30] LABS: SARS-COV-2 RT PCR NEGATIVE (NEGATIVE)
[2021-06-04 22:31] LABS: Absolute Lymphocytes (CBC) 0.7 K/uL (0.7-4.9); Hematocrit 37.8 % (39.6-49.0); Lymphocytes % 5.4 % (15.3-44.8); MPV 7.4 fL (7.6-11.3); RBC Red Blood Cell Count 4.77 M/uL (4.33-5.43)
[2021-06-04 22:32] LABS: Protime INR 0.98
[2021-06-04 22:48] LABS: Albumin 3.2 g/dL (3.4-5.0); Bilirubin Direct 0.1 mg/dL (0-0.2); Bilirubin Total 0.4 mg/dL (0.2-1.0); Magnesium 2.2 mg/dL (1.8-2.4); Potassium 4.1 mmol/L (3.5-5.1); Protein, Total 7.9 g/dL (6.4-8.2); Troponin High Sensitivity 9.1 pg/mL (<58.9)
--- NOTE | 2021-06-04 22:55 | ER ---
Nurse's Notes [facility] Name: Nicola Harvey Age: 56 yrs Sex: Male : 1965 Arrival Date: 06/04/2021 Time: 18:04 Bed 10 Private MD: Diagnosis: Viral infection, unspecified-Viral respiratory illness;Chest pain, unspecified Presentation: 06/04 18:13 Chief complaint: Patient states: R sided CP, fever, and nausea for 1 day. Fever up to ll1 102 at home. Coronavirus screen: Vaccine status: Patient reports receiving the 2nd dose of the covid vaccine. Client denies travel out of the [place] in the last 14 days. chills, fatigue, fever, headache, muscle pain, nausea, Client presents with at least one sign or symptom that may indicate coronavirus-19. Standard/surgical mask placed on the client. Ebola Screen: Patient denies travel to an Ebola-affected area in the 21 days before illness onset. Initial Sepsis Screen: Does the patient meet any 2 criteria? HR > 90 bpm. No. Patient's initial sepsis screen is negative. Does the patient have a suspected source of infection? No. Patient's initial sepsis screen is negative. Risk Assessment: Do you want to hurt yourself or someone else? Patient reports no desire to harm self or others. Onset of symptoms was June 04, 2021. 18:13 Method Of Arrival: Ambulatory ll1 18:13 Acuity: ANGE 3 ll1 Triage Assessment: 18:16 General: Appears in no apparent distress. Behavior is calm, cooperative, appropriate ll1 for age. Pain: Complains of pain in chest. Cardiovascular: Heart tones S1 S2 Capillary refill < 3 seconds. Historical: - Allergies: 18:15 Invokana; ll1 18:15 Jardiance; ll1 - PMHx: 18:15 CHF; Diabetes - IDDM; Hyperlipidemia; Hypertension; lower back pain with injecitons; ll1 Obesity; - PSHx: 18:15 None; ll1 - Immunization history:: Client reports receiving the 2nd dose of the Covid vaccine, Flu vaccine is not up to date. - Social history:: Smoking status: Patient denies any tobacco usage or history of. Screenin:30 Abuse screen: Denies threats or abuse. Nutritional screening: No deficits noted. bb Tuberculosis screening: No symptoms or risk factors identified. Fall Risk None identified. Assessment: 21:30 General: Appears in no apparent distress. obese, Behavior is calm, cooperative. Pain: bb Complains of pain in chest Pain does not radiate. Pain began suddenly. Neuro: Level of Consciousness is awake, alert, obeys commands, Oriented to person, place, time, situation. Cardiovascular: Capillary refill < 3 seconds Patient's skin is warm and dry. Respiratory: Respiratory effort is even, unlabored, Respiratory pattern is regular. GI: Abdomen is obese. Derm: Skin is pink, warm \T\ dry. Musculoskeletal: Circulation, motion, and sensation intact. 23:30 Reassessment: Patient is alert, oriented x 3, equal unlabored respirations, skin bb warm/dry/pink. pt verbalized understanding of and agrees to plan of care discharge instructions given pt ambulated with steady gait to exit. Pt temp at discharge 100.4 provider notified pt medicated see JUL. Vital Signs: 18:13 BP 182 / 95; Pulse 113; Resp 18; Temp 99.4; Pulse Ox 98% ; Weight 165.56 kg; Height 5 ll1 ft. 9 in. (175.26 cm); Pain 9/10; 23:31 BP 157 / 67; Pulse 89; Resp 16 S; Temp 100.4(O); Pulse Ox 97% on R/A; bb 18:13 Body Mass Index 53.90 (165.56 kg, 175.26 cm) ll1 ED Course: 18:04 Patient arrived in ED. mr 18:15 Triage completed. ll1 18:15 Arm band placed on. ll1 18:37 Zack Anderson NP is PHCP. pm1 18:37 Asael Bernal MD is Attending Physician. pm1 18:54 Chest Pa And Lat (2 Views) XRAY In Process Unspecified. EDMS 21:29 Ada Anna, KRUNAL is Primary Nurse. bb 21:30 Patient has correct armband on for positive identification. Call light in reach. bb 21:30 No provider procedures requiring assistance completed. Patient maintains SpO2 bb saturation greater than 95% on room air. 22:24 Inserted saline lock: 20 gauge in right antecubital area, using aseptic technique. oe Blood collected. 23:31 IV discontinued, intact, bleeding controlled, No redness/swelling at site. Pressure bb dressing applied. Administered Medications: 18:34 Drug: Ibuprofen 800 mg Route: PO; ll1 18:34 Drug: Ondansetron 4 mg Route: PO; ll1 23:28 Drug: Tylenol 1000 mg Route: PO; bb 23:28 Follow up: Response: Medication administered at discharge. bb Outcome: 22:53 Discharge ordered by MD. pm1 23:32 Discharged to home ambulatory. bb 23:32 Condition: stable 23:32 Discharge instructions given to patient, Instructed on discharge instructions, follow up and referral plans. Demonstrated understanding of instructions, follow-up care. 23:32 Patient left the ED. bb Signatures: Dispatcher [employer] EDMS Katy Yu Brenda RN RN bb Zack Anderson, [employer] MA[employer]GER pm1 Jevon Mackey Lynsay RN RN ll1
--- NOTE | 2021-06-04 22:55 | EDPHYS ---
Physician Documentation [facility] Name: Nicola Harvey Age: 56 yrs Sex: Male : 1965 Arrival Date: 06/04/2021 Time: 18:04 Bed 10 Private MD: ED Physician Asael Bernal HPI: 06/04 18:29 This 56 yrs old Male presents to ER via Ambulatory with complaints of Fever, pm1 Chest Pain. 18:29 The patient reports fever, that was measured at 102 degrees Fahrenheit. Onset: The pm1 symptoms/episode began/occurred today. Associated signs and symptoms: Pertinent positives: abdominal pain, chest pain, nausea, fever, Pertinent negatives: cough, diarrhea, vomiting. Severity of symptoms: in the emergency department the symptoms are unchanged. The patient has not experienced similar symptoms in the past. The patient has not recently seen a physician. Historical: - Allergies: 18:15 Invokana; ll1 18:15 Jardiance; ll1 - PMHx: 18:15 CHF; Diabetes - IDDM; Hyperlipidemia; Hypertension; lower back pain with injecitons; ll1 Obesity; - PSHx: 18:15 None; ll1 - Immunization history:: Client reports receiving the 2nd dose of the Covid vaccine, Flu vaccine is not up to date. - Social history:: Smoking status: Patient denies any tobacco usage or history of. ROS: 18:29 Constitutional: Negative for fever, chills, and weight loss. pm1 18:29 Respiratory: Negative for shortness of breath, cough, wheezing, and pleuritic chest pain. 18:29 Back: Negative for injury and pain, : Negative for injury, bleeding, discharge, and swelling, MS/Extremity: Negative for injury and deformity, Skin: Negative for injury, rash, and discoloration. 18:29 Cardiovascular: Positive for chest pain, Negative for edema, palpitations. 18:29 Abdomen/GI: Positive for abdominal pain, nausea, Negative for diarrhea, constipation. 18:29 Neuro: Positive for headache, Negative for numbness, tingling, weakness. 18:29 All other systems are negative. Exam: 18:29 Constitutional: This is a well developed, well nourished patient who is awake, alert, pm1 and in no acute distress. Head/Face: Normocephalic, atraumatic. 18:29 Back: No spinal tenderness. No costovertebral tenderness. Full range of motion. Skin: Warm, dry with normal turgor. Normal color with no rashes, no lesions, and no evidence of cellulitis. MS/ Extremity: Pulses equal, no cyanosis. Neurovascular intact. Full, normal range of motion. 18:29 Eyes: Exam is negative for acute changes, Periorbital structures: appear normal, Extraocular movements: no acute changes, Sclera: no acute changes, icterus, is not appreciated. 18:29 ENT: Exam is negative for acute changes, Mouth: Lips: normal, moist, Oral mucosa: normal, pink and intact, moist. 18:29 Cardiovascular: Exam negative for acute changes, Rate: tachycardic, Rhythm: regular, Pulses: no pulse deficits are appreciated. 18:29 Respiratory: Exam negative for acute changes, respiratory distress, shortness of breath, Breath sounds: are clear throughout. 18:29 Abdomen/GI: Exam negative for acute changes, Inspection: obese Palpation: abdomen is soft and non-tender, in all quadrants. 18:29 Neuro: Exam negative for acute changes, Orientation: is normal, Mentation: is normal, Motor: is normal, moves all fours. Vital Signs: 18:13 BP 182 / 95; Pulse 113; Resp 18; Temp 99.4; Pulse Ox 98% ; Weight 165.56 kg; Height 5 ll1 ft. 9 in. (175.26 cm); Pain 9/10; 23:31 BP 157 / 67; Pulse 89; Resp 16 S; Temp 100.4(O); Pulse Ox 97% on R/A; bb 18:13 Body Mass Index 53.90 (165.56 kg, 175.26 cm) ll1 MDM: 18:39 Data reviewed: vital signs. Data interpreted: Pulse oximetry: on room air is 98 %. pm1 Interpretation: normal. 18:39 Patient medically screened. pm1 21:19 ED course: Patient reports abdominal pain resolved with ibuprofen given during ER pm1 waiting time. Patient is concerned regarding chest pain due to history of CHF. 22:52 Counseling: I had a detailed discussion with the patient and/or guardian regarding: the pm1 historical points, exam findings, and any diagnostic results supporting the discharge/admit diagnosis, lab results, radiology results, the need for outpatient follow up, to return to the emergency department if symptoms worsen or persist or if there are any questions or concerns that arise at home. 06/04 18:27 Order name: Strep; Complete Time: 19:01 pm1 06/04 18:27 Order name: COVID-19/FLU A+B (Document "Date of Onset" if Symptomatic); Complete Time: pm1 19:41 06/04 18:57 Order name: Throat Culture EDMS 06/04 21:19 Order name: Basic Metabolic Panel pm1 06/04 21:19 Order name: CBC with Diff pm1 06/04 21:19 Order name: LFT's; Complete Time: 22:52 pm1 06/04 18:27 Order name: Chest Pa And Lat (2 Views) XRAY; Complete Time: 19:07 pm1 06/04 21:19 Order name: Magnesium; Complete Time: 22:52 pm1 06/04 21:19 Order name: NT PRO-BNP; Complete Time: 22:52 pm1 06/04 21:19 Order name: PT-INR; Complete Time: 22:45 pm1 06/04 21:19 Order name: Basic Metabolic Panel; Complete Time: 22:52 EDMS 06/04 22:10 Order name: Troponin High Sensitivity; Complete Time: 22:52 EDMS 06/04 22:35 Order name: Manual Differential EDMS 06/04 18:26 Order name: EKG - Nurse/Tech; Complete Time: 18:26 ll1 06/04 18:27 Order name: EKG - Nurse/Tech; Complete Time: 18:29 pm1 06/04 21:19 Order name: Cardiac monitoring pm1 06/04 21:19 Order name: IV Saline Lock pm1 06/04 21:19 Order name: Labs collected and sent pm1 06/04 21:19 Order name: O2 Per Protocol pm1 06/04 21:19 Order name: O2 Sat Monitoring pm1 Administered Medications: 18:34 Drug: Ibuprofen 800 mg Route: PO; ll1 18:34 Drug: Ondansetron 4 mg Route: PO; ll1 23:28 Drug: Tylenol 1000 mg Route: PO; bb 23:28 Follow up: Response: Medication administered at discharge. bb Disposition: 06/05 07:08 Co-signature as Attending Physician, Asael Bernal MD I agree with the assessment and rn plan of care. Attestation: The patient's history, exam findings, diagnostics, and a summary of any interventions or procedures was reviewed in detail with Zack Anderson BLASTING WORKER. Disposition Summary: 06/04/21 22:53 Discharge Ordered Location: Home pm1 Problem: new pm1 Symptoms: have improved pm1 Condition: Stable pm1 Diagnosis - Chest pain, unspecified pm1 - Viral infection, unspecified - Viral respiratory illness(06/04/21 22:54) pm1 Followup: pm1 - With: Emergency Department - When: As needed - Reason: Worsening of condition Followup: pm1 - With: Private Physician - When: 2 - 3 days - Reason: Recheck today's complaints, Continuance of care, Re-evaluation by your physician Discharge Instructions: - Discharge Summary Sheet pm1 - Nonspecific Chest Pain, Adult pm1 - Viral Respiratory Infection pm1 - Fever, Adult pm1 Forms: - Medication Reconciliation Form pm1 - Work release form pm1 - Thank You Letter pm1 - Antibiotic Education pm1 - Prescription Opioid Use pm1 Signatures: Dispatcher [employer] [facility] Ada Anna, RN RN bb Asael eBrnal MD MD rn Marinas, Patrick, NP BLASTING WORKER pm1 Landy Alexander RN RN ll1 Corrections: (The following items were deleted from the chart) 06/04 22:10 21:19 TROPONIN (EMERG DEPT USE ONLY)+[id number].[email or web address].[email or web address] ordered. [facility] EDPR 22:54 22:53 Viral infection, unspecified pm1 pm1
[2021-06-04] MEDS ORDERED: ACETAMINOPHEN 500 MG TAB ONE (23:26)
[2021-06-04 23:42] VITALS: BP 157/67; TEMP 100.4; O2SAT 97
[2021-06-05 00:40] LABS: Blood Morphology Comment NOT SEEN (NOT SEEN); Platelet Estimate ADEQ
--- NOTE | 2021-06-06 07:51 | EKG ---
Test Date: 2021-06-04 Test Time: 18:18:01 Butt Presser: ALEJO MEASUREMENT RESULTS: Intervals: Rate: 107 MA: 136 QRSD: 104 QT: 312 QTc: 416 [place]: P: 36 MA: 136 QRS: 107 T: 39 INTERPRETIVE STATEMENTS: Sinus tachycardia Rightward axis Incomplete right bundle branch block Borderline ECG Compared to ECG 10/03/2020 09:09:22 Right-axis deviation now present Sinus rhythm no longer present Electronically Signed On 06-06-21 07:46:02 HUMAN [employer] OFFICE MANAGER by Ifeanyi Blood
== END 2021-06-04 23:32 | disposition home or self-care (01) ==
LOC: ER 17:58
DX: B34.9 Viral infection, unspecified (principal); R07.9 Chest pain, unspecified; I11.0 Hypertensive heart disease with heart failure; I50.9 Heart failure, unspecified; E11.9 Type 2 diabetes mellitus without complications; Z20.822 Contact with and (suspected) exposure to COVID-19
CPT/HCPCS: 93005; 87070; 85025; 80048; 36415; 83735; 85610; 80076; 87081; 84484; 83880; 0240U; 71046; 99284

== ENCOUNTER 2021-08-28 05:23 | Inpatient (IN) | payer BC, OTHER ==
--- OUTSIDE RECORDS SUMMARY | 2021-08-28 05:27 | XMS REPORT | Continuity of Care Document ---
:1965 Author Organization [facility] t Address [address] [place] [address] Dr. Rivas. [address] [place] [address] Care Team Providers Name Role Phone Harjeet Mcknight Primary Care Physician MIGUEL HUSAIN Attending Clinician Unavailable Nurse, Pob Immunization Attending Clinician Unavailable Miguel Husain DO Attending Clinician GC_EDEC_Jonies_A Attending Clinician Unavailable Evon Pantoja Attending Clinician [phone] Melani SARMIENTO Attending Clinician Unavailable Radha Attending Clinician Unavailable MONET Attending Clinician Unavailable Only, Test Attending Clinician Unavailable Doctor Unassigned, Name Attending Clinician Unavailable Wilbert AMBROSE Attending Clinician TARAPASADE Attending Clinician Unavailable ESTEBANUEGO Attending Clinician Unavailable GC_EDEC_Hayes_A Admitting Clinician Unavailable MADI Admitting Clinician Unavailable TARAPASAHAIM Admitting Clinician Unavailable EDWIGEGO Admitting Clinician Unavailable Payers Payer Name Policy Type Policy Number Effective Date Expiration Date [id number] 2019 00:00:00 OUT OF [facility]: [id number] ANTHEM BLUE CROSS (PPO) Problems Condition Condition Condition Status Onset Resolution Last Treating Co mments Source Name Details Category Date Date Treatment Clinician Date Cellulitis Cellulitis Disease Active U nivers of right of right 1-31 ity of lower lower 00:00: [place] extremity extremity 00 Medi sanjiv Branch Cellulitis Cellulitis Disease Active 2017-05 U nivers of right of right 2-31 [place] Morbid Morbid Disease Active 2017-05 Univers obesity obesity 2-31 [place] of with body [place] mass index mass index 00 Me dical of of Branch 40.0-49.9 40.0-49.9 LUMBAR Diagnosis Active 2016-052017-04-29 Mem oria STENOSIS 1-14 09:02:00 l LUMBAR 00:00: [place] STENOSIS 00 Active 04/08/2017 [facility] M54.16 Diagnosis Active 2016-052017-03-19 Mem oria 0-25 10:29:00 l M54.16 00:00: Mitesh 00 Active 03/19/2017 [facility] Abdominal Problem Resolve 2017-12-07 M emoria pain d 00:03:51 l (finding) Mitesh Abdominal pain (finding) Resolved Problem 12/07/2017 [facility] Chest pain Problem Resolve 2017-12-07 Memoria (finding) d 00:03:51 l Chest Mitesh pain (finding) Resolved Problem 12/07/2017 [facility] Chronic Problem Resolve 2017-12-07 Mem oria back pain d 00:03:51 l (disorder) Chronic Her mauricio back pain (disorder) Resolved Problem 12/07/2017 [facility] Diabetes Problem Active 2017-12-07 Mem oria mellitus 00:03:51 l (disorder) Diabetes He rmann mellitus (disorder) Active Problem 12/07/2017 [facility] Hyperchole Problem Active 2017-12-07 M emoria sterolemia 00:03:51 l (disorder) Gabo n Hyperchole sterolemia (disorder) Active Problem 12/07/2017 [facility] Hypertensi Problem Active 2017-12-07 M emoria ve 00:03:51 l disorder, Mitesh systemic Hypertensi arterial ve (disorder) disorder, systemic arterial (disorder) Active Problem 12/07/2017 [facility] Morbid Problem Active 2017-12-07 Memcomfort ia obesity 00:03:51 l (disorder) Morbid Herm chacorta obesity (disorder) Active Problem 12/07/2017 [facility] Prolapsed Problem Active 2017-12-07 Me moria lumbar 00:03:51 l interverte Gabo n bral disc Prolapsed (disorder) lumbar interverte bral disc (disorder) Active Problem 12/07/2017 [facility] Allergies, Adverse Reactions, Alerts Allergy Allergy Status Severity Reaction(s) Onset Inactive Treating Comm ents Source Name Type Date Date Clinician No Known DA Active U 2020-0 [facility]01 [facility] 00:00: [facility] 00 [facility] Center No Known DA Active U 2020-0 [facility] Allergie 02-01 [facility] 00:00: [facility] 00 [facility] Center NO KNOWN Drug Active Univers ALLERGIE Class ity of S [facility] Social History Social Habit Start Date Stop Date Quantity Comments Source Alcohol intake 2018-07-21 2018-07-21 Current University of 00:00:00 00:00:00 non-drinker of [facility] alcohol Branch (finding) Tobacco use and 2018-04-09 2018-04-09 Never used Universit y of exposure 00:00:00 00:00:00 [facility] Sex Ass[birth year] Universit y of 00:00:00 00:00:00 [facility] Smoking Status Start Date Stop Date Source Never smoker [facility] Social History 2017-04-29 16:58:10 2017-04-29 16:58:10 [facility] Medications Ordered Filled Start Stop Current Ordering Indication Dosage Frequency Signature Comments Components Source Medication Medication Date Date Medication? Clinician (SIG) Name Name insulin 2018-05 Yes [id number] 60U inject 60 Univers regular 0-24 Units ity of human 500 00:00: under the Varinder as unit/mL 00 skin 3 Medical injection (three) Branch times daily before meals. E11. 65 Insulin 2019- Yes Each 3 Univers Syringe-Nee 7-03 (three) ity o f dle U-100 1 00:00: times [place] mL 31 gauge 00 daily Medical x 5/16 Syrg before Branch meals. E11.65 insulin 2019-0 Yes [id number] 1{each} 1 Each 3 Univers U-500 5-28 (three) ity of syringe-nee 00:00: times [place] dle 1/2 mL 00 daily Medical 31 gauge x before Branch " Syrg meals. E11.65 metformin 2019-0 Yes [id number] 1000mg Take 2 Univers ER 500 mg 5-28 tablets by ity of 24 hr 00:00: mouth 2 [place] tablet 00 (two) Medical times Branch daily with meals. glimepiride 2019- Yes [id number] 4mg Take 1 Univers 4 mg tablet 5-28 tablet by ity of 00:00: mouth 2 [place] 00 (two) Medical times [place] daily with meals. pravastatin 2018- Yes [id number] 20mg Take 1 Univers 20 mg 5-28 tablet by ity of tablet 00:00: mouth at [place] 00 bedtime. Medical Branch metoprolol Yes 50mg Take 50 mg U nivers tartrate 50 2-01 by mouth 2 it y of mg tablet 17:31: (two) [place] 53 times Medical daily. Branch lisinopril Yes 40mg Take 40 mg U nivers 40 mg 2-01 by mouth ity of tablet 17:31: daily. [address] Branch amLODIPine Yes 5mg Take 5 mg Un bria 5 mg tablet 2-01 by mouth ity of 17:31: daily. [address] Branch traMADOL 50 2018- Yes [id number] 50mg Take 1 Univers mg tablet 2- [id number] tablet by ity of 00:00: mouth 2 [place] 00 (two) Medical times [place] daily as needed for Pain (scale 4-6) or Pain (scale 7-10). hydroCHLORO 2017-05 Yes [id number] 25mg Take 1 Univers thiazide 25 2-14 tablet by ity of mg tablet 00:00: mouth [place] 00 daily. Medical Branch exenatide 2017-05 Yes [id number] 2mg inject 2 Univers microsphere 1-14 mg under ity of s (BYDUREON [place]:00: [place] BCISE[place] 2 00 weekly. Medical mg/0.85 mL Branch AtIn amitriptyli 2016-05 Yes 10 mg = 1 M emoria ne 10 mg 2-01 tab, PO, l oral tablet 14:52: Bedtime, 4 [place] 00 tabs at bedtime for 1 week then 5 tabs at bedtime thereafter , # 150 tab, 2 Refill(s), Pharmacy: [facility] [id number] diclofenac 2016-05 Yes 75 mg = 1 Me moria sodium 75 2-01 tab, PO, l mg oral 14:52: BID, PRN Gabo n enteric 00 Pain Score coated, 7-10, # 60 delayed-rel tab, 2 ease tablet Refill(s), Pharmacy: [facility] Cyclobenzap 2016-05 Yes 10 mg = 1 M emoria rine 2-01 tab, PO, l hydrochlori 14:52: BID, # 60 H ermann de 10 MG 00 tab, 2 Oral Tablet Refill(s), [Flexeril] Pharmacy: [facility] Sodium 2016-05 Yes 4.2 mL, Memoria Chloride - Route: l 14:50: EPIDURAL, Mitesh 00 Dosing Weight 141.364, kg, ONCE, (Preservat liliana Free), Start date: 04/25/17 8:50:00 [employer]PERVIS[employer], Stop date: 04/25/17 8:50:00 [employer]PER[employer] Lidocaine 2016-05 Yes 3 mL, Memoria Hydrochlori 06-26 Route: l de 10 MG/ML 14:50: SUB-Q, Herm chacorta Injectable 00 Dosing Solution Weight 141.364, kg, ONCE, (Preservat liliana Free), Start date: 04/25/17 8:50:00 SECURITY SHIFT SUPERVISOR, Stop date: 04/25/17 8:50:00 [employer]ITY SHIFT SUPERVISOR Omnipaque 2016- Yes 2 mL, Memoria 300 2- Route: l 14:50: EPIDURAL, [place] 00 Dosing Weight 141.364, kg, ONCE, (Preservat liliana Free), Start date: 04/25/17 8:50:00 SECURITY SHIFT SUPERVISOR, Stop date: 04/25/17 8:50:00 SECURITY SHIFT SUPERVISOR Dexamethaso 2016-05 Yes 8 mg, Memor ia ne 2 Route: l 14:50: EPIDURAL, [place] 00 ONCE, Dosing Weight 141.364, kg, (Preservat liliana Free), Start date: 04/25/17 8:50:00 SECURITY SHIFT SUPERVISOR, Stop date: 12/01/17 8:50:00 SECURITY SHIFT SUPERVISOR Bupivacaine 2017- Yes 2 mL, Memor ia Hydrochlori 2-01 Route: l de 2.5 14:50: EPIDURAL, Gabo n MG/ML 00 Dosing Injectable Weight Solution 141.364, kg, ONCE, (Preservat liliana Free), Start date: 04/25/17 8:50:00 SECURITY SHIFT SUPERVISOR, Stop date: 04/25/17 8:50:00 [employer]URITY SHIFT SUPERVISOR Immunizations Ordered Filled Immunization Date Status Comments Sour e Immunization Name Name SARS-COV-2 COVID-19 2021-04-12 Completed Unive rsity of PFIZER VACCINE 00:00:00 [facility] SARS-COV-2 COVID-19 2020-08-24 Completed Unive rsity of PFIZER VACCINE 00:00:00 [facility] SARS-COV-2 COVID-19 2020-08-03 Completed Unive rsity of PFIZER VACCINE 00:00:00 [facility] Influenza Virus 2018-06-26 Completed Universit y of Vaccine Quad .5 mL 00:00:00 [facility] 6+ MO Branch Vital Signs Vital Name Observation Time Observation Value Comments Source Height 2017-06-05 17:46:00 177.8 cm Memorial Mitesh Weight 2017-06-05 17:46:00 [facility] [place] BMI Calculated 2017-06-05 17:46:00 Memori al [place] Systolic (mm Hg) 2017-06-05 17:46:00 Chuck rial Mitesh Diastolic (mm Hg) 2017-06-05 17:46:00 Mem orial Mitesh Temperature Oral (F) 2017-06-05 17:46:00 99.3 F [facility] [place] Heart Rate 2017-06-05 17:46:00 [facility] [place] BMI Calculated 2017-04-29 15:23:00 Memori al Mitesh Weight 2017-04-29 15:23:00 [facility] Mitesh Height 2017-04-29 15:23:00 177.8 cm Memorial Mitesh Heart Rate 2017-04-29 15:00:00 [facility] [place] Respitory Rate 2017-04-29 15:00:00 Memori al Mitesh Systolic (mm Hg) 2017-04-29 15:00:00 Chuck rial Mitesh Diastolic (mm Hg) 2017-04-29 15:00:00 Mem orial [place] Procedures Procedure Date / Time Performing Clinician Source Performed SARS-COV-2 COVID-19 2021-04-12 22:54:16 Doctor Unassigned, No Un [facility] [place] VACCINE,0.3ML,IM Name [facility] ([employer] Plans) Myelography via lumbar 2017-04-29 16:14:00 Memor ial [place] injection, including radiological supervision and interpretation; thoracic Myelography via lumbar 2017-04-29 16:14:00 Memor ial Mitesh injection, including radiological supervision and interpretation; lumbosacral NJX INTERLAMINAR 2017-04-25 14:50:00 [facility] rmann LMBR/SA Lumbar epidural [facility] [place] injection Lumbar epidural steroid Memorial Mitesh injection Nose operation [facility] Operation [facility] [place] Ear operations [facility] Mitesh Encounters Start End Encounter Admission Attending Care Care Encounter Source Date/Time Date/Time Type Type Clinicians Facility Department ID 2021-04-12 2021-04-12 Outpatient R LUTHER [facility] [id number] Univers 16:30:00 16:30:00 PAUL simon [facility] 2021-04-12 2021-04-12 Imm/Inj Nurse, Adc Pob Immunization [facility] [id number] Univers 16:14:33 16:14:42 Visit Paul Husain 350.1.13 .10 [facility] 4.2.7.2.686 Elizabeth BENJAMIN [id number] [address] 2020-09-25 2020-09-25 Outpatient GC_EDEC_Hay PRIV PRIV [id number] [facility] 02:20:00 02:20:00 es_A [id number] Medica l 2020-09-19 2020-09-19 Outpatient GC_EDEC_Hay PRIV PRIV [id number] [facility] 02:41:00 02:41:00 es_A [id number] Medica l 2020-09-13 2020-09-13 Outpatient GC_EDEC_Hay PRIV PRIV [id number] [facility] 06:01:00 06:01:00 es_A [id number] Medica l 2020-09-13 2020-09-13 Outpatient Pantoja, PRIV PRIV [id number] 00:00:00 00:00:00 Ellen [id number] [facility] [id number] 2020-09-11 2020-09-11 Outpatient GC_EDEC_Hay PRIV PRIV [id number] [facility] 12:06:00 12:06:00 es_A [id number] Medica l 2020-09-06 2020-09-06 Outpatient GC_EDEC_Hay PRIV PRIV [id number] [facility] 06:40:00 06:40:00 es_A [id number] Medica l 2020-08-24 2020-08-24 Outpatient R GUILLERMINA, [facility] [id number] Univers 14:40:00 14:40:00 JAZMIN y [facility] 2020-08-03 2020-08-03 Outpatient [facility] [id number] Univers 14:40:00 14:40:00 [facility] 2020-02-08 2020-02-08 Outpatient PILI Garcia, [facility] [id number] [facility] 08:00:00 08:00:00 Neel [id number] [facility] 2020-02-02 2020-02-02 Outpatient R CHINO HEALY [facility] [id number] Univers 11:30:00 11:30:00 [facility] 2020-02-02 2020-02-02 Outpatient R [facility] [id number] Univers 11:30:00 11:30:00 [facility] 2020-02-02 2020-02-02 Laboratory Only, [facility] [id number] 11:14:48 11:29:48 Only Test Yesica 350.1.13.10 [place] 4.2.7.2.686 [place] [id number] 2020-02-02 2020-02-02 Orders Doctor DULCE [id number] 00:00:00 00:00:00 Only Unassigned, KIMBERLY [id number] [place] [facility] 4.2.7.2.686 [id number] 2020-01-05 2020-01-05 Telephone Atkins, [facility] [id number] 00:00:00 00:00:00 [place] Yesica [id number] [place] 4.2.7.2.[address] Professio [id number] 2019-06-16 2019-06-16 Telephone Atkins, [facility] [id number] 00:00:00 00:00:00 [place] [id number] [place] 4.2.7.2.686 Professio [id number] [address] 2019-06-09 2019-06-09 Telephone Atkins, [facility] [id number] 00:00:00 00:00:00 [place] [id number] [place] 4.2.7.2.686 Professio [id number] [address] 2019-02-10 2019-02-10 Telephone Atkins, [facility] [id number] 00:00:00 00:00:00 [place] [id number] [place] 4.2.7.2.[address] Professio [id number] [address] 2018-12-13 2018-12-13 Orders Doctor [facility] [id number] 00:00:00 00:00:00 Only Unassigned, KIMBERLY [id number] [place] [facility] 4.2.7.2.686 [id number] 2018-11-27 2018-11-27 Refill Atkins, [facility] [id number] 00:00:00 00:00:00 Yogiong [place] 350.1.13.10 [place] 4.2.7.2.[address] Professio [id number] [address] 2017-12-04 2017-12-04 Ambulatory nullFlavo [facility] [id number] Memoria 15:30:00 15:30:00 Pre-Reg r Clinic [address] 2017-06-06 2017-06-08 Phone nullFlavo [facility] [id number] Memoria 20:31:00 05:59:59 Message r Clinic [address] 2017-06-05 2017-06-06 Outpatient nullFlavo [facility] [id number] Memoria 17:30:00 05:59:59 r Clinic [address] 2017-04-30 2017-05-02 Phone nullFlavo [facility] [id number] Memoria 17:52:00 05:59:59 Message r Clinic TM 08 [facility] 2017-04-29 2017-04-30 Outpatient nullFlavo [facility] [id number] Memoria 14:20:00 05:59:00 r [place] 00 l [facility] 2017-04-25 2017-04-26 Outpatient nullFlavo [facility] [id number] Memoria 14:00:00 05:59:59 r Clinic TM 06 [facility] 2017-04-24 2017-04-26 Phone nullFlavo [facility] [id number] Memoria 22:30:00 05:59:59 Message r Clinic TM 07 [facility] 2017-04-24 2017-04-26 Phone nullFlavo [facility] [id number] Memoria 22:27:00 05:59:59 Message r Clinic [facility] 06 [facility] 2017-04-04 2017-04-04 Outpatient MHIE MHIE [id number] Memoria 13:00:00 13:00:00 04 [facility] 2017-03-19 2017-03-20 Outpatient nullFlavo Memorial [id number] Memoria 15:22:00 04:59:00 r [place] 98 l [facility] 2017-03-19 2017-03-19 Outpatient MHIE MHIE [id number] Memoria 08:45:00 08:45:00 03 [facility] 2017-03-19 2017-03-19 Outpatient MHIE MHIE [id number] Memoria 07:45:00 07:45:00 02 [facility] 2016-09-04 2016-09-04 Outpatient MHIE MHIE [id number] Memoria 07:45:00 07:45:00 01 [facility] 2016-08-19 2016-08-19 Outpatient MHIE MHIE [id number] Memoria 10:30:00 10:30:00 00 marga [place] Results Test Description Test Time Test Comments Results Result Comments Source GLUBED 2020-02-08 15:58:00 Test Item Value Reference Range Interpretation Comme nts GLUBED (test code = GLUBED) 147 MG/DL 70-105 H [id number] 16:42:00 Test Item Value Reference Range Interpretation Comments PTT (test code = PTT) 29.4 s 22.9-35.8 [place] [id number] 16:42:00 Test Item Value Reference Range Interpretation Comments PT (test code = PT) 12.8 s 12.0-14.7 [facility] [id number] 16:42:00 Test Item Value Reference Range Interpretation Comments INR (test code = INR) 0.96 0.85-1.17 [facility]2017-12-05 15:26:00 Test Item Value Reference Range Interpretation Comments eGFR (test code = eGFR) 95 [facility]2017-12-05 15:26:00 Test Item Value Reference Range Interpretation Comments Creatinine Lvl (test code = Creatinine 0.92 0.50-1.40 Lvl) [facility]2017-12-05 15:26:00 Test Item Value Reference Range Interpretation Comments BUN (test code = BUN) 21 7-22 [facility] [id number] 15:26:00 Test Item Value Reference Range Interpretation Comments MCV (test code = MCV) 84.7 80.0-94.0 [place] [id number] 15:26:00 Test Item Value Reference Range Interpretation Comments Hct (test code = Hct) 41.3 42.0-54.0 [facility] [id number] 15:26:00 Test Item Value Reference Range Interpretation Comments MCH (test code = MCH) 27.9 pg 27.0-31.0 [facility] [id number] 15:26:00 Test Item Value Reference Range Interpretation Comments MCHC (test code = MCHC) 32.9 32.0-36.0 [facility] [id number] 15:26:00 Test Item Value Reference Range Interpretation Comments WBC (test code = WBC) 7.2 3.7-10.4 [facility] [id number] 15:26:00 Test Item Value Reference Range Interpretation Comments RBC (test code = RBC) 4.87 4.70-6.10 [facility] [id number] 15:26:00 Test Item Value Reference Range Interpretation Comments Hgb (test code = Hgb) 13.6 14.0-18.0 [facility] [id number] 15:26:00 Test Item Value Reference Range Interpretation Comments RDW (test code = RDW) 16.1 11.5-14.5 [facility] [id number] 15:26:00 Test Item Value Reference Range Interpretation Comments Platelet (test code = Platelet) 239 133-450 [facility] [id number] 15:26:00 Test Item Value Reference Range Interpretation Comments MPV (test code = MPV) 8.0 7.4-10.4 [place] [id number] 05:57:00 Test Item Value Reference Range Interpretation [...] 4 - SerumAlbu min)] EGFR if >60 Moroc[place] (test code mL/min/1.73m\\ = EGFRAA) S\\2 EGFR if Non- >60 Estimate d Glomerular Moroccan (test code mL/min/1.73m\\ Filtrat ion Rate (eGFR) [...] c hronic kidney failure. CBC WITH AUTO [id number] 05:42:00 Test Item Value Reference Range Interpretation [...] code = 1.0 % 0.0-0.4 H IG%) [id number] 05:53:00 Test Item Value Reference Range Interpretation [...] 4 - SerumAlbu min)] EGFR if >60 [place] (test code mL/min/1.73m\\ = EGFRAA) S\\2 EGFR if Non- >60 Estimate d Glomerular [place]oc[place] (test code mL/min/1.73m\\ Filtrat ion Rate (eGFR) [...] c hronic kidney failure. CBC WITH AUTO [id number] 05:27:00 Test Item Value Reference Range Interpretation [...] code = 1.7 % 0.0-0.4 H IG%) [id number] 04:36:00 Test Item Value Reference Range Interpretation [...] 4 - SerumAlbu min)] EGFR if >60 [place] (test code mL/min/1.73m\\ = EGFRAA) S\\2 EGFR if Non- >60 Estimate d Glomerular [place]oc[place] (test code mL/min/1.73m\\ Filtrat ion Rate (eGFR) [...] c hronic kidney failure. CBC WITH AUTO [id number] 04:14:00 Test Item Value Reference Range Interpretation [...] code = 1.9 % 0.0-0.4 H IG%) [id number] 04:40:00 Test Item Value Reference Range Interpretation [...] 4 - SerumAlbu min)] EGFR if >60 [place] (test code mL/min/1.73m\\ = EGFRAA) S\\2 EGFR if Non- >60 Estimate d Glomerular [place] (test code mL/min/1.73m\\ Filtrat ion Rate (eGFR) [...] c hronic kidney failure. CBC WITH AUTO [id number] 04:09:00 Test Item Value Reference Range Interpretation [...] = 2.4 % 0.0-0.4 H IG%) CULTURE, [id number] 06:50:00To start 15mins after 1st cultureSpecimen: BloodCollected: 01/18/2017 04:05 Status: Final Last Updated: 01/23/2017 06:49 (1) To start 15mins after 1st culture Culture Result (Final) (Final) No Growth After 5 DaysCULTURE, [id number] 06:50:00Specimen: BloodCollected: 01/18/2017 03:55 Status: Final Last [...] code = 3.4 % 0.0-0.4 H IG%) [id number] 04:19:00 Test Item Value Reference Range Interpretation [...] 4 - SerumAlbu min)] EGFR if >60 [place] (test code mL/min/1.73m\\ = EGFRAA) S\\2 EGFR if Non- >60 Estimate d Glomerular [place]oc[place] (test code mL/min/1.73m\\ Filtrat ion Rate (eGFR) [...] c hronic kidney failure. CBC WITH AUTO [id number] 04:57:00 Test Item Value Reference Range Interpretation [...] 4.0 % 0.0-0.4 H IG%) CBC AUTO [id number] 04:35:00 Test Item Value Reference Range Interpretation [...] 4 - SerumAlbu min)] EGFR if >60 [place] (test code mL/min/1.73m\\ = EGFRAA) S\\2 EGFR if Non- >60 Estimate d Glomerular [place]oc[place] (test code mL/min/1.73m\\ Filtrat ion Rate (eGFR) [...] c hronic kidney failure. CBC WITH AUTO [id number] 05:01:00 Test Item Value Reference Range Interpretation [...] 4.5 % 0.0-0.4 H IG%) CBC AUTO [id number] 04:56:00 Test Item Value Reference Range Interpretation [...] 4 - SerumAlbu min)] EGFR if >60 [place] (test code mL/min/1.73m\\ = EGFRAA) S\\2 EGFR if Non- >60 Estimate d Glomerular [place]oc[place] (test code mL/min/1.73m\\ Filtrat ion Rate (eGFR) [...] c hronic kidney failure. CBC WITH AUTO [id number] 05:57:00 Test Item Value Reference Range Interpretation [...] code = 4.8 % 0.0-0.4 H IG%) [id number] 05:41:00 Test Item Value Reference Range Interpretation Comments Magnesium (test code = MG) 2.0 mg/dl 1.6-2.3 [id number] 05:41:00 Test Item Value Reference Range Interpretation [...] 4 - SerumAlbu min)] EGFR if >60 [place] (test code mL/min/1.73m\\ = EGFRAA) S\\2 EGFR if Non- >60 Estimate d Glomerular [place]oc[place] (test code mL/min/1.73m\\ Filtrat ion Rate (eGFR) [...] of c hronic kidney failure. LACTIC ACID [id number] 06:43:00 Test Item Value Reference Range Interpretation Comments LACTATE (test code = LAC) 0.9 mmol/l 0.7-2.0 GLYCOSALATED [id number] 05:41:00 Test Item Value Reference Range Interpretation Comments Hemoglobin A1C (test 9.06 % 4.3-6.0 A code = GLYCO) Mean Plasma Glucose 245 mg/dl 90-180 WHEN BONIFACIO T RESULTS FOR (test code = MPG) A1C EXCEED 14.0, THE LINEAR LIMIT OF THE INSTRUMENT, THE CALCULATED RESU LT FOR THE MEAN GLUCOS E IS NOT RELIABLE. CORONARY [id number] 05:09:00 Test Item Value Reference Range Interpretation [...] (test code = 37 mg/dl 30-60 VLDL) [id number] 04:51:00 Test Item Value Reference Range Interpretation Comments Magnesium (test code = MG) 2.1 mg/dl 1.6-2.3 [id number] 04:51:00 Test Item Value Reference Range Interpretation Comments CPK (test code = CPK) 93 U/L 30-135 LIPASE, [id number] 04:43:00 Test Item Value Reference Range Interpretation Comments Lipase (test code = LIPA) 116 U/L 8-223 [id number] 04:43:00 Test Item Value Reference Range Interpretation [...] 4 - SerumAlbu min)] EGFR if >60 Moroc[place] (test code mL/min/1.73m\\ = EGFRAA) S\\2 EGFR if Non- >60 Estimate d Glomerular Moroccan (test code mL/min/1.73m\\ Filtrat ion Rate (eGFR) [...]
--- NOTE | 2021-08-28 06:16 | ER ---
Nurse's Notes [facility] Name: Nicola Harvey Age: 56 yrs Sex: Male : 1965 Arrival Date: 08/28/2021 Time: 05:27 Bed 13 Private MD: Diagnosis: Lymphedema, not elsewhere classified;Obesity, unspecified;Cellulitis and acute lymphangitis of other parts of limb-right lower extremity;Type 1 diabetes mellitus with hyperglycemia Presentation: 08/28 05:58 Chief complaint: Patient states: he has been having right ankle swelling for the last bb couple of weeks but the swelling is getting worse and it is painful. Coronavirus screen: At this time, the client does not indicate any symptoms associated with coronavirus-19. Ebola Screen: No symptoms or risks identified at this time. Initial Sepsis Screen: Does the patient meet any 2 criteria? No. Patient's initial sepsis screen is negative. Does the patient have a suspected source of infection? Yes: Skin breakdown/wound. Risk Assessment: Do you want to hurt yourself or someone else? Patient reports no desire to harm self or others. Onset of symptoms was June 2021. 05:58 Method Of Arrival: Ambulatory 05:58 Acuity: ANGE 3 bb Historical: - Allergies: 05:59 Invokana; bb 05:59 Jardiance; bb - Home Meds: 05:59 amlodipine 5 mg tab 1 tab once daily [Active]; Humulin R 100 unit/mL soln [Active]; bb hydralazine 100 mg Oral tab 1 tab 3 times per day [Active]; metformin 1,000 mg Oral tab 1 tab 2 times per day [Active]; Metoprolol Tartrate Oral [Active]; Aspirin Oral [Active]; doxazosin oral [Active]; Lisinopril Oral [Active]; - PMHx: 05:59 CHF; Diabetes - IDDM; Hyperlipidemia; Hypertension; lower back pain with injecitons; bb Obesity; - PSHx: 05:59 rhinoplasty; addenoidectomy; bb - Immunization history:: Adult Immunizations up to date, Pfizer x 3. - Social history:: Smoking status: Patient denies any tobacco usage or history of. Screenin:33 Abuse screen: Denies threats or abuse. Denies injuries from another. Nutritional ww screening: No deficits noted. Tuberculosis screening: No symptoms or risk factors identified. Fall Risk None identified. Assessment: 06:59 General: Appears in no apparent distress. comfortable, Behavior is calm, cooperative, al4 Right leg swelling. patient states he has had an infection in the r leg before. patient states he is in no pain right now after receiving morphine. . Pain: Complains of pain in right leg. Neuro: Level of Consciousness is awake, alert, obeys commands, Oriented to person, place, time, situation. Cardiovascular: Capillary refill < 3 seconds Patient's skin is warm and dry. Cardiovascular: Respiratory: Airway is patent Respiratory effort is unlabored. Derm:. Vital Signs: 05:58 BP 154 / 64; Pulse 57; Resp 16 S; Temp 98.2(O); Pulse Ox 98% on R/A; Weight 165.56 kg bb (R); Height 5 ft. 9 in. (175.26 cm) (R); Pain 8/10; 06:45 BP 151 / 67; Pulse 66; Resp 18 S; Pulse Ox 98% on R/A; al4 05:58 Body Mass Index 53.90 (165.56 kg, 175.26 cm) ED Course: 05:27 Patient arrived in ED. rg4 05:41 Weston Carty MD is Attending Physician. [facility] 05:59 Triage completed. 05:59 Arm band placed on Patient placed in an exam room, on a stretcher, on pulse oximetry. 06:09 Inserted saline lock: 20 gauge in right antecubital area, using aseptic technique. bb Blood collected. 06:12 Latoay Mcknight MD is Hospitalizing Provider. [facility] 06:25 Initial lab(s) drawn, by la, sent to lab. First set of blood cultures drawn by swapnil mills Second set of blood cultures drawn by . 07:26 Jayda Simeon RN is Primary Nurse. 08:00 COVID-19 SARS RT PCR (Document "Date of Onset" if Symptomatic) Sent. 16:33 No provider procedures requiring assistance completed. Patient admitted, IV remains in ww place. Administered Medications: 06:35 Drug: NS 0.9% 250 ml Route: IV; Rate: bolus; Site: right antecubital; bb 06:35 Drug: Zofran (Ondansetron) 4 mg Route: IVP; Site: right antecubital; bb 06:37 Drug: morphine 4 mg {Note: RASS 0.} Route: IVP; Site: right antecubital; bb 06:40 Drug: Zosyn (piperacillin-tazobactam) 3.375 grams Route: IVPB; Infused Over: 60 mins; bb Site: right antecubital; 08:00 Drug: NS 0.9% 1000 ml Route: IV; Rate: 125 ml/hr; Site: right antecubital; ww 08:00 Drug: Lovenox (enoxaparin) 40 mg Route: Sub-Q; Site: left lower abdomen; ww 09:04 Not Given (Other Intervention Used): vancoMYCIN 1 grams IVPB once over 2 hrs ww Outcome: 06:15 Decision to Hospitalize by Provider. leigh 16:34 Admitted to Med/surg Report called to TJ. Attempt at 1530 informed nurse will call ww back, [id number]- number bust [id number] placed on hold for 7 minutes, report given to TJ 16:34 Condition: stable 16:34 Instructed on the need for admit. 16:47 Patient left the ED. iw Signatures: Weston Carty MD MD cha Ballard, Brenda, RN RN Janay Jarrell, RN Tasha Epstein rg4 Jay Gottlieb Whitney, RN RN ww Corrections: (The following items were deleted from the chart) 06:04 05:59 Home Meds: doxyzosin; swapnil kraft
--- NOTE | 2021-08-28 06:16 | EDPHYS ---
Physician Documentation [facility] Name: Nicola Harvey Age: 56 yrs Sex: Male : 1965 Arrival Date: 08/28/2021 Time: 05:27 Bed 13 Private MD: ED Physician Weston Carty HPI: 08/28 06:06 This 56 yrs old Male presents to ER via Ambulatory with complaints of Feet eligh Swelling. Historical: - Allergies: 05:59 Invokana; bb 05:59 Jardiance; bb - Home Meds: 05:59 amlodipine 5 mg tab 1 tab once daily [Active]; Humulin R 100 unit/mL soln [Active]; bb hydralazine 100 mg Oral tab 1 tab 3 times per day [Active]; metformin 1,000 mg Oral tab 1 tab 2 times per day [Active]; Metoprolol Tartrate Oral [Active]; Aspirin Oral [Active]; doxazosin oral [Active]; Lisinopril Oral [Active]; - PMHx: 05:59 CHF; Diabetes - IDDM; Hyperlipidemia; Hypertension; lower back pain with injecitons; bb Obesity; - PSHx: 05:59 rhinoplasty; addenoidectomy; bb - Immunization history:: Adult Immunizations up to date, Pfizer x 3. - Social history:: Smoking status: Patient denies any tobacco usage or history of. ROS: 06:07 Eyes: Negative for injury, pain, redness, and discharge, ENT: Negative for injury, leigh pain, and discharge, Neck: Negative for injury, pain, and swelling, Cardiovascular: Negative for chest pain, palpitations, and edema, Respiratory: Negative for shortness of breath, cough, wheezing, and pleuritic chest pain, Abdomen/GI: Negative for abdominal pain, nausea, vomiting, diarrhea, and constipation, Back: Negative for injury and pain, : Negative for injury, bleeding, discharge, and swelling, Skin: Negative for injury, rash, and discoloration, Neuro: Negative for headache, weakness, numbness, tingling, and seizure, Psych: Negative for depression, anxiety, suicide ideation, homicidal ideation, and hallucinations, Allergy/Immunology: Negative for hives, rash, and allergies, Endocrine: Negative for neck swelling, polydipsia, polyuria, polyphagia, and marked weight changes, Hematologic/Lymphatic: Negative for swollen nodes, abnormal bleeding, and unusual bruising. 06:07 Constitutional: Positive for fatigue, fever. 06:07 MS/extremity: Positive for decreased range of motion, erythema, pain, swelling, tenderness, of the right leg. Exam: 06:07 Constitutional: This is a well developed, well nourished patient who is awake, alert, leigh and in no acute distress. Head/Face: Normocephalic, atraumatic. Eyes: Pupils equal round and reactive to light, extra-ocular motions intact. Lids and lashes normal. Conjunctiva and sclera are non-icteric and not injected. Cornea within normal limits. Periorbital areas with no swelling, redness, or edema. ENT: Nares patent. No nasal discharge, no septal abnormalities noted. Tympanic membranes are normal and external auditory canals are clear. Oropharynx with no redness, swelling, or masses, exudates, or evidence of obstruction, uvula midline. Mucous membranes moist. Neck: Trachea midline, no thyromegaly or masses palpated, and no cervical lymphadenopathy. Supple, full range of motion without nuchal rigidity, or vertebral point tenderness. No Meningismus. Chest/axilla: Normal chest wall appearance and motion. Nontender with no deformity. No lesions are appreciated. Cardiovascular: Regular rate and rhythm with a normal S1 and S2. No gallops, murmurs, or rubs. Normal PMI, no JVD. No pulse deficits. Respiratory: Lungs have equal breath sounds bilaterally, clear to auscultation and percussion. No rales, rhonchi or wheezes noted. No increased work of breathing, no retractions or nasal flaring. Abdomen/GI: Soft, non-tender, with normal bowel sounds. No distension or tympany. No guarding or rebound. No evidence of tenderness throughout. Back: No spinal tenderness. No costovertebral tenderness. Full range of motion. Male : Normal genitalia with no discharge or lesions. Skin: Warm, dry with normal turgor. Normal color with no rashes, no lesions, and no evidence of cellulitis. Neuro: Awake and alert, GCS 15, oriented to person, place, time, and situation. Cranial nerves II-XII grossly intact. Motor strength 5/5 in all extremities. Sensory grossly intact. Cerebellar exam normal. Normal gait. Psych: Awake, alert, with orientation to person, place and time. Behavior, mood, and affect are within normal limits. 06:07 Musculoskeletal/extremity: ROM: limited active range of motion due to pain, limited passive range of motion due to pain, in the right leg, Pulses: noted to be 4+ in the bilateral radial, brachial, femoral, popliteal, posterior tibial and and dorsalis pedis arteries., Sensation intact. Compartment Syndrome exam of affected extremity: is normal. Vital Signs: 05:58 BP 154 / 64; Pulse 57; Resp 16 S; Temp 98.2(O); Pulse Ox 98% on R/A; Weight 165.56 kg bb (R); Height 5 ft. 9 in. (175.26 cm) (R); Pain 8/10; 06:45 BP 151 / 67; Pulse 66; Resp 18 S; Pulse Ox 98% on R/A; al4 05:58 Body Mass Index 53.90 (165.56 kg, 175.26 cm) bb MDM: 05:41 Patient medically screened. [facility] 06:07 Differential diagnosis: contusion. Data reviewed: vital signs, nurses notes, lab test leigh result(s), radiologic studies, doppler. Data interpreted: [employer]: rate is 57 beats/min, rhythm is regular, Pulse oximetry: on room air is 98 %. Test interpretation: by ED physician or midlevel provider: ECG, plain radiologic studies. Counseling: I had a detailed discussion with the patient and/or guardian regarding: the historical points, exam findings, and any diagnostic results supporting the discharge/admit diagnosis, lab results, radiology results, the need for further work-up and treatment in the hospital. 08/28 05:54 Order name: Basic Metabolic Panel; Complete Time: 07:07 leigh 08/28 05:54 Order name: CBC with Diff; Complete Time: 07:07 leigh 08/28 05:54 Order name: LFT's; Complete Time: 07:07 leigh 08/28 05:54 Order name: Magnesium; Complete Time: 07:07 leigh 08/28 05:54 Order name: NT PRO-BNP; Complete Time: 07:07 leigh 08/28 05:54 Order name: PT-INR; Complete Time: 07:07 leigh 08/28 05:54 Order name: Troponin HS; Complete Time: 07:07 leigh 08/28 05:54 Order name: Blood Culture Adult (2) [facility] 08/28 05:54 Order name: Lactate; Complete Time: 07:07 leigh 08/28 05:54 Order name: Procalcitonin [facility] 08/28 07:42 Order name: COVID-19 SARS RT PCR (Document "Date of Onset" if Symptomatic) bd 08/28 11:25 Order name: Urine Dipstick-Ancillary EDMS 08/28 11:47 Order name: SARS-COV-2 RT PCR (Document "Date of Onset" if Symptomatic) iw 08/28 12:22 Order name: SARS-COV-2 RT PCR EDMS 08/28 05:54 Order name: XRAY Chest (1 view) [facility] 08/28 05:54 Order name: EKG; Complete Time: 05:55 leigh 08/28 05:54 Order name: US Extremity Venous W Compression [place] [facility] 08/28 06:07 Order name: Foot Right 3 View XRAY [facility] 08/28 06:07 Order name: Tib Fib Right XRAY [facility] 08/28 07:58 Order name: RAD EDMS 08/28 07:59 Order name: US EDMS 08/28 07:59 Order name: RAD EDMS 08/28 08:00 Order name: RAD EDMS 08/28 05:54 Order name: Cardiac monitoring; Complete Time: 08:14 leigh 08/28 05:54 Order name: EKG - Nurse/Tech; Complete Time: 08:14 leigh 08/28 05:54 Order name: IV Saline Lock; Complete Time: 06:46 leigh 08/28 05:54 Order name: Labs collected and sent; Complete Time: 06:46 leigh 08/28 05:54 Order name: O2 Per Protocol; Complete Time: 06:46 leigh 08/28 05:54 Order name: O2 Sat Monitoring; Complete Time: 06:46 leigh 08/28 05:54 Order name: Urine Dipstick-Ancillary (obtain specimen); Complete Time: 11:34 leigh Administered Medications: 06:35 Drug: NS 0.9% 250 ml Route: IV; Rate: bolus; Site: right antecubital; bb 06:35 Drug: Zofran (Ondansetron) 4 mg Route: IVP; Site: right antecubital; bb 06:37 Drug: morphine 4 mg {Note: RASS 0.} Route: IVP; Site: right antecubital; bb 06:40 Drug: Zosyn (piperacillin-tazobactam) 3.375 grams Route: IVPB; Infused Over: 60 mins; bb Site: right antecubital; 08:00 Drug: NS 0.9% 1000 ml Route: IV; Rate: 125 ml/hr; Site: right antecubital; ww 08:00 Drug: Lovenox (enoxaparin) 40 mg Route: Sub-Q; Site: left lower abdomen; ww 09:04 Not Given (Other Intervention Used): vancoMYCIN 1 grams IVPB once over 2 hrs ww Disposition Summary: 08/28/21 06:15 Hospitalization Ordered Hospitalization Status: Inpatient Admission leigh Provider: Latoya Mcknight cha Condition: Fair leigh Problem: new leigh Symptoms: have improved leigh Bed/Room Type: Standard leigh Location: Telemetry/MedSurg (Inpatient)(08/28/21 15:12) bd Room Assignment: 208(08/28/21 15:12) bd Diagnosis - Lymphedema, not elsewhere classified leigh - Obesity, unspecified leigh - Cellulitis and acute lymphangitis of other parts of limb - right lower extremity leigh - Type 1 diabetes mellitus with hyperglycemia leigh Forms: - Medication Reconciliation Form leigh - SBAR form leigh Signatures: Dispatcher [employer] EDMS Alba Flores Corey, MD MD cha Ballard, Brenda, RN RN bb Williams, Irene, RN RN iw Wood, Whitney, RN RN ww Corrections: (The following items were deleted from the chart) 06:04 05:59 Home Meds: doxyzosin; bb bb 12:44 06:15 Telemetry/MedSurg (Inpatient) leigh iw 12:44 06:15 leigh iw 15:12 12:[address] [facility] ER HOLD iw bd 15:12 12:44 ERHOLD- iw bd
[2021-08-28] MEDS ORDERED: ONDANSETRON 4 MG/2 ML VIAL ONE (06:31)
[2021-08-28] MEDS ORDERED: NA CHLORIDE 0.9% 1,000 ML ONE ×2 (06:31→07:43)
[2021-08-28] MEDS ORDERED: PIPERACIL/TAZO 3.375 GM VIAL IV ONE (06:31)
[2021-08-28] MEDS ORDERED: MORPHINE 4 MG/ML SYR ONE (06:31)
[2021-08-28] MEDS ORDERED: NA CHLORIDE 0.9% 100 ML IV ONE (06:31)
[2021-08-28 06:44] LABS: Absolute Lymphocytes (CBC) 1.3 K/uL (0.7-4.9); Hematocrit 35.9 % (39.6-49.0); Lymphocytes % 18.2 % (15.3-44.8); MPV 7.4 fL (7.6-11.3); RBC Red Blood Cell Count 4.53 M/uL (4.33-5.43)
[2021-08-28 06:47] LABS: Protime INR 1.08
[2021-08-28 07:06] LABS: Albumin 3.3 g/dL (3.4-5.0); Bilirubin Direct 0.1 mg/dL (0-0.2); Bilirubin Total 0.5 mg/dL (0.2-1.0); Magnesium 2.3 mg/dL (1.8-2.4); Potassium 3.9 mmol/L (3.5-5.1); Protein, Total 8.3 g/dL (6.4-8.2); Troponin High Sensitivity 6.2 pg/mL (<58.9)
[2021-08-28] MEDS ORDERED: ENOXAPARIN 40 MG/0.4 ML SQ ONE (07:43)
--- NOTE | 2021-08-28 07:57 | RAD REPORT ---
EXAM DESCRIPTION: Yamileth Single View08/28/2021 7:06 am CLINICAL HISTORY: Cough COMPARISON: May 2021 FINDINGS: Right lung base is mildly hazy which may represent a few areas of subsegmental atelectasis Otherwise lungs appear clear. Heart is mildly to moderately enlarged. Upper lobe vessels are prominent indicative of pulmonary venous hypertension
--- NOTE | 2021-08-28 07:59 | RAD REPORT ---
EXAM DESCRIPTION: USExtrem Venous W Compress Bil08/28/2021 7:45 am CLINICAL HISTORY: Bilateral leg pain and swelling COMPARISON: 2020 FINDINGS: The common femoral, superficial femoral, popliteal and posterior tibial veins bilaterally are compressible and demonstrate augmentation. Doppler demonstrates good flow. Grayscale, color and spectral analysis performed on all vessels IMPRESSION: No evidence of deep venous thrombosis involving either lower extremity.
--- NOTE | 2021-08-28 07:59 | RAD REPORT ---
EXAM DESCRIPTION: RAD - Tib Fib Right - 08/28/2021 7:06 am CLINICAL HISTORY: Right leg pain FINDINGS: No fracture is seen. No bony destructive lesion. Soft tissue swelling
[2021-08-28] MEDS ORDERED: VANCOMYCIN 1 GM in NA CHLORIDE 0.9% 250 ML IVPB ONE (08:00)
--- NOTE | 2021-08-28 08:00 | RAD REPORT ---
EXAM DESCRIPTION: RAD - Foot Right 3 View - 08/28/2021 7:06 am CLINICAL HISTORY: Right foot pain FINDINGS: No fracture or dislocation is seen Large calcaneal spurs. No bony destructive lesion is seen. Soft tissue swelling
[2021-08-28] MEDS ORDERED: ONDANSETRON 4 MG/2 ML VIAL IV PRN (08:26)
[2021-08-28] MEDS: NA CHLORIDE 0.9% 1,000 ML IV SCH ×3 (08:26→18:26)
[2021-08-28] MEDS ORDERED: ACETAMINOPHEN 325 MG TABLET PO PRN (08:26)
[2021-08-28] MEDS ORDERED: VANCOMYCIN 1 GM in NA CHLORIDE 0.9% 250 ML IVPB SCH (08:26)
[2021-08-28] MEDS ORDERED: VANCOMYCIN 1 GM/VIAL ONE (08:59)
[2021-08-28] MEDS ORDERED: NA CHLORIDE 0.9% 250 ML ONE (08:59)
[2021-08-28] MEDS: VANCOMYCIN 2 GM in NA CHLORIDE 0.9% 500 ML IV SCH ×2 (09:00→21:54)
[2021-08-28 11:25] LABS: Urine Blood Negative (Negative); Urine Glucose Negative (Negative); Urine Protein 3+ (Negative); Urine Specific Gravity >=1.030 (1.005-1.030); Urine pH 5.5 (5.0-7.0)
[2021-08-28] MEDS ORDERED: ACETAMINOPHEN 325 MG TABLET ONE (13:27)
[2021-08-28] MEDS ORDERED: IBUPROFEN 600 MG TAB PO PRN (15:06)
[2021-08-28] MEDS ORDERED: IBUPROFEN 200 MG TAB PO ONE (15:11)
[2021-08-28] MEDS ORDERED: IBUPROFEN 400 MG TAB ONE (15:11)
[2021-08-28 15:24] VITALS: BMI 53.8
[2021-08-28] MEDS ORDERED: ENOXAPARIN 40 MG/0.4 ML SQ SCH (17:00)
[2021-08-29] MEDS: NA CHLORIDE 0.9% 1,000 ML IV SCH (04:47)
[2021-08-29] MEDS: MORPHINE 4 MG/ML SYR IV PRN ×2 (04:47→08:45)
[2021-08-29 04:54] LABS: Absolute Lymphocytes (CBC) 0.7 K/uL (0.7-4.9); Hematocrit 33.9 % (39.6-49.0); Lymphocytes % 13.6 % (15.3-44.8); MPV 7.1 fL (7.6-11.3); RBC Red Blood Cell Count 4.26 M/uL (4.33-5.43)
[2021-08-29 05:07] LABS: Potassium 3.9 mmol/L (3.5-5.1)
[2021-08-29] MEDS ORDERED: GLUCAGON 1 MG/VIAL IM PRN (06:30)
[2021-08-29] MEDS ORDERED: D50W 25 GM/50 ML SYRINGE IV PRN (06:30)
--- NOTE | 2021-08-29 08:00 | HP ---
Date of Admission: 08/28/2021 Chief Complaint: Fever, pain in the right leg. History Of Present Illness: This is 56-year-old male patient who has history of recurrent cellulitis of lower extremity with underlying lymphedema of legs, comes into the emergency room with redness of the lower part of the right leg associated with some discomfort, pain in the right leg, and fever. After the patient was evaluated in the emergency room, he was admitted to the hospital. I saw him in emergency room this morning for this admission. Allergies: NO KNOWN ALLERGIES. Medications: List reviewed. Review of Systems: Constitutional: As mentioned above. Dermatology: As mentioned above. Musculoskeletal: As mentioned above. All other systems reviewed and negative. Social History: Negative for smoking and alcohol use. Family History: Significant for colon cancer and prostate cancer. Past Surgical History: Significant for sinus surgery. Past Medical History: Hypertension, obstructive sleep apnea, cervical spinal stenosis, type 2 diabetes mellitus, lumbar radiculopathy, hyperlipidemia, recurrent cellulitis of lower extremities, lymphedema of legs, coronary artery disease. Physical Examination: Vital Signs: Height 5 feet 9 inches, weight 365 lbs, temperature 98.2, respiratory rate 16, pulse 57, blood pressure 154/64. General: Awake, alert, oriented, not in distress. HEENT: Head atraumatic, normocephalic. Conjunctivae nonerythematous. Sclerae white. Mouth, no thrush or edema noted. Ears/Nose, no mass, lesion, discharge noted. Neck: Supple. No JVD, lymph nodes, bruit, thyromegaly noted. Lungs: Bilateral good equal air entry. Clear to auscultation. No rhonchi. No rales. Heart: Normal heart sounds, no murmur or gallop. Abdomen: Soft, bowel sounds normal. No guarding, rigidity, tenderness, mass, hepatosplenomegaly, distention, or bruit noted. Extremities: No leg edema. No calf tenderness. Skin: No rash, ulcer, cellulitis. Lymphatics: No lymph node enlargement in neck, supraclavicular, infraclavicular region. Neuro: No focal neurological deficit. Chest: Unremarkable. External Genitalia: Deferred. Rectal: Deferred. Musculoskeletal: Right lower extremity, the lower 3/4th of the right leg between knee and ankle has pink warm skin, slightly tender to touch. There is no open wound. Bilateral lower extremities have grade 1 known pitting pedal edema. Laboratory Data: White count 7, hemoglobin 11.8, platelets 280. Sodium 138, potassium 3.9 chloride 104, bicarb 31, BUN 16, creatinine 1.03, glucose 214. Liver function tests unremarkable. Troponin 6.2. Chest x-ray, no acute cardiopulmonary changes. Venous Doppler of leg negative for any DVT. Impression: 1. Cellulitis, right leg. 2. Lymphedema, legs. 3. Type 2 diabetes mellitus. 4. Hypertension. 5. Hyperlipidemia. 6. Obstructive sleep apnea. 7. Cervical spinal stenosis. 8. Coronary artery disease. 9. Morbid obesity. Plan: Admit patient to hospital for further evaluation and management of this problem. The patient is appropriate for inpatient and is expected to spend 2 midnights in hospital. We will go ahead and continue home medications per order. DVT prophylaxis will be given using Lovenox. We will go ahead and start empiric antibiotic, which is vancomycin and Zosyn. Follow up on culture results and details of plan of treatment discussed with the patient. I will see him tomorrow morning for followup. WALT/MODL Voice ID: [id number] ANNIE
[2021-08-29] MEDS: METOPROLOL TAR 50 MG TAB PO SCH ×2 (08:39→22:10)
[2021-08-29] MEDS: AMLODIPINE 5 MG TAB PO SCH ×2 (08:40→22:08)
[2021-08-29] MEDS: HYDRALAZINE HCL 10 MG TABLET PO SCH ×2 (08:40→22:09)
[2021-08-29] MEDS: PIPER TAZO 3.375 GM in NA CHLORIDE 0.9% 100 ML IV SCH ×2 (08:41→17:41)
[2021-08-29] MEDS: VANCOMYCIN 2 GM in NA CHLORIDE 0.9% 500 ML IV SCH ×2 (08:42→22:12)
[2021-08-29] MEDS: INSULIN -REGULAR HUMAN 50 UNIT/0.5 ML ML SQ SCH ×4 (08:50→22:11)
[2021-08-29] MEDS ORDERED: ASPIRIN 81 MG CHEWABLE TABLET PO SCH (09:00)
[2021-08-29] MEDS ORDERED: ENOXAPARIN 40 MG/0.4 ML SQ SCH (09:00)
[2021-08-29] MEDS ORDERED: MORPHINE 2 MG/ML SYR IV PRN (10:41)
--- NOTE | 2021-08-29 16:41 | EKG ---
Test Date: 2021-08-28 Test Time: 08:13:30 Public Area Supervisor: FIDENCIO MEASUREMENT RESULTS: Intervals: Rate: 57 ND: 162 QRSD: 106 QT: 436 QTc: 424 [place]: P: 20 ND: 162 QRS: 90 T: 52 INTERPRETIVE STATEMENTS: Sinus bradycardia Rightward axis Incomplete right bundle branch block Cannot rule out Anterior infarct, age undetermined Abnormal ECG Compared to ECG 06/04/2021 18:18:01 Myocardial infarct finding now present Sinus tachycardia no longer present Electronically Signed On 08-29-21 16:40:18 CDT by Ifeanyi Blood
[2021-08-29] MEDS ORDERED: FUROSEMIDE 40 MG TABLET PO SCH (17:00)
--- NOTE | 2021-08-29 23:09 | PN ---
Date of Progress Note: 08/29/2021 Subjective: Patient was seen this morning for followup. No new complaints or problems reported by baldomero mcintyre. He was lying in bed. Right leg redness and discomfort is unchanged from yesterday. His tem perature went up as high as 103 degrees Fahrenheit yesterday and Tylenol was not helping, so Motrin w as added and that actually has helped him. Objective: Vital Signs: Reviewed. HEENT: Unremarkable. Lungs: Clear to auscultation. Heart: Heart sounds normal. Abdomen: Soft, bowel sounds normal. No guarding, rigidity, tenderness, distention. Extremities: Right lower extremity area of redness, warmness, and slightly tender to touch. These f indings have not changed any since yesterday. Impression: 1.Cellulitis. 2.Diabetes mellitus. 3.Morbid obesity. 4.Hypertension. 5.Anemia, unspecified. Plan: We will go ahead and continue current medications. Continue Zosyn and vancomycin. Continue h ome medications. I will see him tomorrow for followup. WALT/MODL Voice ID: [id number] Report ID: [id number]
[2021-08-30] MEDS: PIPER TAZO 3.375 GM in NA CHLORIDE 0.9% 100 ML IV SCH ×2 (02:05→08:38)
[2021-08-30 08:37] VITALS: BP 151/71; TEMP 98.2
[2021-08-30] MEDS: INSULIN -REGULAR HUMAN 50 UNIT/0.5 ML ML SQ SCH (08:56)
[2021-08-30] MEDS ORDERED: VANCOMYCIN 1.75 GM in NA CHLORIDE 0.9% 500 ML IV SCH (09:00)
[2021-08-30 09:14] VITALS: O2SAT 97
--- NOTE | 2021-08-31 06:27 | DS ---
Date of Discharge: 08/30/2021 Disposition: Discharged to go home. Physical Examination: HEENT: Unremarkable. Lungs: Clear to auscultation. Heart: Heart sounds normal. Abdomen: Soft, bowel sounds normal. No guarding, rigidity, tenderness, distention. Extremities: Bilateral leg edema, nonpitting unchanged, and right lower leg has some area of faint p ink discoloration with slightly warm to touch. No tenderness. Overall, this is much better than bef ore. Discharge Medications And Instructions: 1.Continue all prior home medications. 2.Follow up at my office next week on Friday, which is 09/03/2021. 3.Keep right leg elevated while sitting or lying down. 4.Take following new medications;. a.Doxycycline 100 mg 2 times a day for 10 days. b.Augmentin 875 mg 2 times a day for 10 days. Take it with food. 5.Avoid excessive direct sunlight exposure while taking antibiotics. Laboratory Data: On 08/28/2021, upon admission, white count 7, hemoglobin 11.2, platelets 280 and white count 5.4, hemoglobin 11.2, platelets 239. Upon admission chemistry; sodium 138, potas sium 3.9, chloride 104, bicarb 31, BUN 16, creatinine 1.03, glucose 214. Liver function tests unrema rkable. Procalcitonin less than 0.05. Yesterday, sodium 138, potassium 3.9, chloride 105, bicarb 30 , BUN 14, creatinine 1.14, glucose 158. Hospital Course: This is a 56-year-old male patient with multiple chronic medical problems, came int o emergency room with complaints of fever and pain in his right leg. Please see dictated H and P for more information. After patient was evaluated in the emergency room, he was admitted to the [facility] with right leg cellulitis. On the day of admission in the afternoon hours, the patient's temperatu re did go up to 103 degree Fahrenheit and Tylenol was not helping so we did start him on Motrin. Mot rin did help with pain control as well as fever. Blood culture was done when the patient came to ER and blood culture has remained negative. He was started on empiric antibiotic, which is vancomycin a nd Zosyn and overall his condition has improved and today he was discharged to go home in stable cond ition. The patient may return to work as of tomorrow. Final Diagnoses: 1.Cellulitis, right leg. 2.Lymphedema, legs. 3.Anemia, unspecified. 4.Type 2 diabetes mellitus. 5.Hypertension. 6.Hyperlipidemia. 7.Obstructive sleep apnea. 8.Cervical spinal stenosis. 9.Coronary artery disease. 10.Morbid obesity. WALT/MODL Voice ID: [id number] Report ID: [id number]
== END 2021-08-30 09:35 | disposition home or self-care (01) | DRG 603 ==
LOC: ER 05:23 → ERHOLD 06:18 → 2ND 14:42 → ERHOLD 14:42 → 2ND 15:25
PROVIDERS: ADMIT Internal Medicine; ATTEND Internal Medicine
DX: L03.115 Cellulitis of right lower limb (principal); Z68.43 Body mass index [BMI] 50.0-59.9, adult; I89.0 Lymphedema, not elsewhere classified; D64.9 Anemia, unspecified; E11.9 Type 2 diabetes mellitus without complications; I10 Essential (primary) hypertension; E78.5 Hyperlipidemia, unspecified; G47.33 Obstructive sleep apnea (adult) (pediatric); M48.02 Spinal stenosis, cervical region; I25.10 Atherosclerotic heart disease of native coronary artery without angina pectoris; E66.01 Morbid (severe) obesity due to excess calories; Z80.42 Family history of malignant neoplasm of prostate; Z80.0 Family history of malignant neoplasm of digestive organs; Z20.822 Contact with and (suspected) exposure to COVID-19
CPT/HCPCS: 36415; 71045; 80048; 80076; 80202; 81003; 82947; 83605; 83735; 83880; 84145; 84484; 85025; 85610; 87040; 93005; 93970; 96372; 96374; 96375; 99285; J1650; J2405; J2543; J3370; J7030; J7040; J7050; U0003

== ENCOUNTER 2021-10-02 15:49 | Inpatient (IN) | payer OTHER ==
--- OUTSIDE RECORDS SUMMARY | 2021-10-02 15:53 | XMS REPORT | Continuity of Care Document ---
:1965 Author Organization [facility] t Address [address] [place] [address] Care Team Providers Name Role Phone Madi Harjeet Fine Primary Care Physician GC_EDEC_Hayes_A Attending Clinician Unavailable Evon Pantoja Attending Clinician [phone] MIGUEL HUSAIN Attending Clinician Unavailable Nurse, Pob Immunization Attending Clinician Unavailable Miguel Husain DO Attending Clinician Melani SARMIENTO Attending Clinician Unavailable Radha Attending Clinician Unavailable MONET Attending Clinician Unavailable Only, Test Attending Clinician Unavailable Doctor Unassigned, Name Attending Clinician Unavailable Wilbert AMBROSE Attending Clinician VIANNEY Attending Clinician Unavailable EDWIGEGO Attending Clinician Unavailable GC_EDEC_Hayes_A Admitting Clinician Unavailable MADI Admitting Clinician Unavailable TARAPASAHAIM Admitting Clinician Unavailable EDWIGEGO Admitting Clinician Unavailable Payers Payer Name Policy Type Policy Number Effective Date Expiration Date Darryl izquierdo AEMYRIAM (POS) [id number] 2021 00:00:00 [facility] - [id number] 2019 00:00:00 OUT OF STATE BLUE CROSS-[place]: [id number] ANTH BLUE CROSS (PPO) Problems Condition Condition Condition Status Onset Resolution Last Treating Co mments Source Name Details Category Date Date Treatment Clinician Date Cellulitis Cellulitis Disease Active N PI:183 of right of right 06-25 479192 1 lower lower 00:00: extremity extremity 00 Cellulitis Cellulitis Disease Active 2017-05 N PI:183 of right of right 482641 1 lower leg lower leg 00:00: 00 Morbid Morbid Disease Active 2017-05 NPI:183 obesity obesity [id number] with body with body 00:00: mass index mass index 00 of of 40.0-49.9 40.0-49.9 LUMBAR Diagnosis Active 2016-052017-04-29 Mem oria STENOSIS - 09:02:00 l LUMBAR 00:00: [place] STENOSIS 00 Active 04/08/2017 [facility] M54.16 Diagnosis Active 2016-052017-03-19 Mem oria 0 10:29:00 l M54.16 00:00: Mitesh 00 Active 03/19/2017 [facility] Abdominal Problem Resolve 2017-12-07 M emoria pain d 00:03:51 l (finding) [place] Abdominal pain (finding) Resolved Problem 12/07/2017 [facility] Chest pain Problem Resolve 2017-12-07 Memoria (finding) d 00:03:51 l Chest Mitesh pain (finding) Resolved Problem 12/07/2017 [facility] Chronic Problem Resolve 2017-12-07 Mem oria back pain d 00:03:51 l (disorder) Chronic Her mauricio back pain (disorder) Resolved Problem 12/07/2017 [facility] Diabetes Problem Active 2017-12-07 Mem oria mellitus 00:03:51 l (disorder) Diabetes He rmann mellitus (disorder) Active Problem 12/07/2017 [facility] Hyperchole Problem Active 2017-12-07 M emoria sterolemia 00:03:51 l (disorder) Gabo n Hyperchole sterolemia (disorder) Active Problem 12/07/2017 [facility] Hypertensi Problem Active 2017-12-07 M emoria ve 00:03:51 l disorder, Mitesh systemic Hypertensi arterial ve (disorder) disorder, systemic arterial (disorder) Active Problem 12/07/2017 [facility] Morbid Problem Active 2017-12-07 Memor ia obesity 00:03:51 l (disorder) Morbid Herm chacorta obesity (disorder) Active Problem 12/07/2017 [facility] Prolapsed Problem Active 2017-12-07 Me moria lumbar 00:03:51 l interverte Gabo n bral disc Prolapsed (disorder) lumbar interverte bral disc (disorder) Active Problem 12/07/2017 [facility] Allergies, Adverse Reactions, Alerts Allergy Allergy Status Severity Reaction(s) Onset Inactive Treating Comm ents Source Name Type Date Date Clinician No Known DA Active U 2020-0 [facility]01 [facility] No Known DA Active U 2020-0 [facility]ie 02[facility]01 [place] [facility] [address] [facility] NO KNOWN Drug Active NPI:183 ALLERGIE Class [id number] S Social History Social Habit Start Date Stop Date Quantity Comments Source Alcohol intake 2018-07-21 2018-07-21 Current NPI:[id number] 00:00:00 00:00:00 non-drinker of alcohol (finding) Tobacco use and 2018-04-09 2018-04-09 Never used NPI:[id number] exposure 00:00:00 00:00:00 [birth year] NPI:[id number] 00:00:00 00:00:00 Smoking Status Start Date Stop Date Source Never smoker Social History 2017-04-29 16:58:10 2017-04-29 16:58:10 [facility] Medications Ordered Filled Start Stop Current Ordering Indication Dosage Frequency Signature Comments Components Source Medication Medication Date Date Medication? Clinician (SIG) Name Name insulin 2018-05 Yes [id number] 60U inject 60 NPI:183 regular 0-24 Units [id number] human 500 00:00: under the unit/mL 00 skin 3 injection (three) times daily before meals. E11. 65 Insulin 2018- Yes Each 3 NPI:183 Syringe-Nee 7-03 (three) 43394 81 dle U-100 1 00:00: times mL 31 gauge 00 daily x 5/16 Syrg before meals. E11.65 insulin 2019-0 Yes [id number] 1{each} 1 Each 3 NPI:183 U-500 5-28 (three) [id number] syringe-nee 00:00: times dle 1/2 mL 00 daily 31 gauge x before " Syrg meals. E11.65 metformin 2019- Yes [id number] 1000mg Take 2 NPI:183 ER 500 mg 5-28 tablets by 1318 781 24 hr 00:00: mouth 2 tablet 00 (two) times daily with meals. glimepiride 2018- Yes [id number] 4mg Take 1 NPI:183 4 mg tablet 5-28 tablet by 131 8781 00:00: mouth 2 00 (two) times daily with meals. pravastatin 2018- Yes [id number] 20mg Take 1 NPI:183 20 mg 5-28 tablet by [id number] tablet 00:00: mouth at 00 bedtime. metoprolol Yes 50mg Take 50 mg N PI:183 tartrate 50 2-01 by mouth 2 13 [id number] mg tablet 17:31: (two) 53 times daily. lisinopril Yes 40mg Take 40 mg N PI:183 40 mg 2-01 by mouth [id number] tablet 17:31: daily. 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 53 traMADOL 50 2018- Yes [id number] 50mg Take 1 NPI:183 mg tablet 2-01 [id number] tablet by [id number] 8781 00:00: mouth 2 00 (two) times daily as needed for Pain (scale 4-6) or Pain (scale 7-10). hydroCHLORO 2017-05 Yes [id number] 25mg Take 1 NPI:183 thiazide 25 2-14 tablet by 131 8781 mg tablet 00:00: mouth 00 daily. exenatide 2017-05 Yes [id number] 2mg inject 2 NPI:183 microsphere 1-14 mg under 1318 781 s (BYDUREON 00:00: the skin BCISE) 2 00 weekly. mg/0.85 mL AtIn amitriptyli 2016-05 Yes 10 mg = 1 M emoria ne 10 mg 2-01 tab, PO, l oral tablet 14:52: Bedtime, 4 Mitesh 00 tabs at bedtime for 1 week then 5 tabs at bedtime thereafter , # 150 tab, 2 Refill(s), Pharmacy: [facility] [id number] diclofenac 2016-05 Yes 75 mg = 1 Me moria sodium 75 2-01 tab, PO, l mg oral 14:52: BID, PRN Gabo n enteric 00 Pain Score coated, 7-10, # 60 delayed-rel tab, 2 ease tablet Refill(s), Pharmacy: [facility] Cyclobenzap 2016-05 Yes 10 mg = 1 M emoria rine 2-01 tab, PO, l hydrochlori 14:52: BID, # 60 H ermann de 10 MG 00 tab, 2 Oral Tablet Refill(s), [Flexeril] Pharmacy: [facility] Sodium 2016-05 Yes 4.2 mL, Memoria Chloride 2 Route: l 14:50: EPIDURAL, [place] 00 Dosing Weight 141.364, kg, ONCE, (Preservat liliana Free), Start date: 04/25/17 8:50:00 AIR VICE MARSHAL, Stop date: 04/25/17 8:50:00 AIR VICE MARSHAL Lidocaine 2016-05 Yes 3 mL, Memoria Hydrochlori 2- Route: l de 10 MG/ML 14:50: SUB-Q, Herm chacorta Injectable 00 Dosing Solution Weight 141.364, kg, ONCE, (Preservat liliana Free), Start date: 04/25/17 8:50:00 AIR VICE MARSHAL, Stop date: 04/25/17 8:50:00 AIR VICE MARSHAL Omnipaque 2016- Yes 2 mL, Memoria 300 2- Route: l 14:50: EPIDURAL, Mitesh 00 Dosing Weight 141.364, kg, ONCE, (Preservat liliana Free), Start date: 04/25/17 8:50:00 AIR VICE MARSHAL, Stop date: 04/25/17 8:50:00 AIR VICE MARSHAL Dexamethaso 2016-05 Yes 8 mg, Memor ia ne 2- Route: l 14:50: EPIDURAL, [place] 00 ONCE, Dosing Weight 141.364, kg, (Preservat liliana Free), Start date: 04/25/17 8:50:00 AIR VICE MARSHAL, Stop date: 04/25/17 8:50:00 AIR VICE MARSHAL Bupivacaine 2017- Yes 2 mL, Memor ia Hydrochlori 2-01 Route: l de 2.5 14:50: EPIDURAL, Gabo n MG/ML 00 Dosing Injectable Weight Solution 141.364, kg, ONCE, (Preservat liliana Free), Start date: 04/25/17 8:50:00 AIR VICE MARSHAL, Stop date: 04/25/17 8:50:00 AIR VICE MARSHAL Immunizations Ordered Immunization Filled Immunization Date Status Commen ts Source Name Name SARS-COV-2 COVID-19 2021-04-12 Completed NPI:1 [id number] PFIZER VACCINE 00:00:00 SARS-COV-2 COVID-19 2020-08-24 Completed NPI:1 [id number] PFIZER VACCINE 00:00:00 SARS-COV-2 COVID-19 2020-08-03 Completed NPI:1 [id number] PFIZER VACCINE 00:00:00 Influenza Virus 2018-06-26 Completed NPI:[id number] Vaccine Quad .5 mL 00:00:00 IM 6+ MO Vital Signs Vital Name Observation Time Observation Value Comments Source Height 2017-06-05 17:46:00 177.8 cm [facility] [place] Weight 2017-06-05 17:46:00 [facility] [place] BMI Calculated 2017-06-05 17:46:00 Memori al [place] Systolic (mm Hg) 2017-06-05 17:46:00 Chuck rial Mitesh Diastolic (mm Hg) 2017-06-05 17:46:00 Mem orial Mitesh Temperature Oral (F) 2017-06-05 17:46:00 99.3 F [facility] Mitesh Heart Rate 2017-06-05 17:46:00 [facility] Mitesh BMI Calculated 2017-04-29 15:23:00 Memori al Mitesh Weight 2017-04-29 15:23:00 [facility] [place] Height 2017-04-29 15:23:00 177.8 cm [facility] [place] Heart Rate 2017-04-29 15:00:00 [facility] [place] Respitory Rate 2017-04-29 15:00:00 Memori al Mitesh Systolic (mm Hg) 2017-04-29 15:00:00 Chuck rial Mitesh Diastolic (mm Hg) 2017-04-29 15:00:00 Mem orial [place] Procedures Procedure Date / Time Performed Performing Clinician Sour e SARS-COV-2 COVID-19 2021-04-12 22:54:16 Doctor Unassigned, No 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 I:[id number] VACCINE,0.3ML,IM (PFIZER) Name Myelography via lumbar 2017-04-29 16:14:00 Memor ial [place] injection, including radiological supervision and interpretation; thoracic Myelography via lumbar 2017-04-29 16:14:00 Memor ial [place] injection, including radiological supervision and interpretation; lumbosacral NJX INTERLAMINAR LMBR/SA 2017-04-25 14:50:00 Mem orial [place] Ear operations [facility] Mitesh Lumbar epidural injection Memori al [place] Lumbar epidural steroid [facility] Mitesh injection Nose operation [facility] [place] Operation [facility] [place] Encounters Start End Encounter Admission Attending Care Care Encounter Source Date/Time Date/Time Type Type Clinicians Facility Department ID 2021-09-24 2021-09-24 Outpatient GC_EDEC_Hay PRIV PRIV [id number] NPI:157 11:24:00 11:24:00 es_A [id number] 2021-09-24 2021-09-24 Outpatient Pantoja, PRIV PRIV [id number] 00:00:00 00:00:00 Ellen [id number] [facility] [id number] 2021-09-20 2021-09-20 Outpatient GC_EDEC_Hay PRIV PRIV [id number] NPI:157 03:44:00 03:44:00 es_A [id number] 2021-04-12 2021-04-12 Outpatient Florencio HUSAIN [facility] [id number] NPI:183 16:30:00 16:30:00 PAUL [id number] 2021-04-12 2021-04-12 Imm/Inj Nurse, Adc Pob Immunization [facility] [id number] NPI:183 16:14:33 16:14:42 Visit Paul Husain 350.1.13 .10 [id number] ABELARDO 4.2.7.2.686 SERGIOIO [id number] 2021-01-16 2021-01-16 Outpatient GC_EDEC_Hay PRIV PRIV [id number] NPI:157 07:11:00 07:11:00 es_A [id number] 2020-09-25 2020-09-25 Outpatient GC_EDEC_Hay PRIV PRIV [id number] NPI:157 02:20:00 02:20:00 es_A [id number] 2020-09-19 2020-09-19 Outpatient GC_EDEC_Hay PRIV PRIV [id number] NPI:157 02:41:00 02:41:00 es_A [id number] 2020-09-13 2020-09-13 Outpatient GC_EDEC_Hay PRIV PRIV [id number] NPI:157 06:01:00 06:01:00 es_A [id number] 2020-09-13 2020-09-13 Outpatient Pantoja, PRIV PRIV [id number] 00:00:00 00:00:00 Ellen [id number] [facility] [id number] 2020-09-11 2020-09-11 Outpatient GC_EDEC_Hay PRIV PRIV [id number] NPI:157 12:06:00 12:06:00 es_A [id number] 2020-09-06 2020-09-06 Outpatient GC_EDEC_Hay PRIV PRIV [id number] NPI:157 06:40:00 06:40:00 es_A [id number] 2020-08-24 2020-08-24 Outpatient Florencio SARMIENTO [facility] [id number] NPI:183 14:40:00 14:40:00 JAZMIN [id number] 2020-08-03 2020-08-03 Outpatient [facility] [id number] NPI:183 14:40:00 14:40:00 [id number] 2020-02-08 2020-02-08 Outpatient PILI Garcia [facility] DAYS [id number] [facility] 08:00:00 08:00:00 Neel [id number] [facility] 2020-02-02 2020-02-02 Outpatient CHINO MASON [facility] [id number] NPI:183 11:30:00 11:30:00 [id number] 2020-02-02 2020-02-02 Outpatient R [facility] [id number] NPI:183 11:30:00 11:30:00 [id number] 2020-02-02 2020-02-02 Laboratory Only, Adc [facility] [id number] 11:14:48 11:29:48 Only Test [place] 350.1.13.10 [place] 4.2.7.2.686 Sandy [id number] 2020-02-02 2020-02-02 Orders Doctor DULCE [id number] 00:00:00 00:00:00 Only Unassigned, KIMBERLY 350.1.13.10 [place] [facility] 4.2.7.2.686 [id number] 2020-01-05 2020-01-05 Telephone Atkins, [facility] [id number] 00:00:00 00:00:00 [place] 350.1.13.10 [place] 4.2.7.2.686 Professio [id number] [address] 2019-06-16 2019-06-16 Telephone Atkins, [facility] [id number] 00:00:00 00:00:00 [place] 350.1.13.10 [place] 4.2.7.2.686 Professio [id number] [address] 2019-06-09 2019-06-09 Telephone Atkins, [facility] [id number] 00:00:00 00:00:00 [place] 350.1.13.10 [place] 4.2.7.2.686 Professio [id number] [address] 2019-02-10 2019-02-10 Telephone Atkins, [facility] [id number] 00:00:00 00:00:00 [place]ong [place] [id number] [place] 4.2.7.2.686 Professio [id number] [address] 2018-12-13 2018-12-13 Orders Doctor CARDONA [id number] 00:00:00 00:00:00 Only Unassigned, KIMBERLY 350.1.13.10 [place] [facility] 4.2.7.2.686 [id number] 2018-11-27 2018-11-27 Refill Wilbert CTPEYTON [id number] 00:00:00 00:00:00 Anupam Robert 350.1.13.10 [place] [id number] Professio [id number] [address] 2017-12-04 2017-12-04 Ambulatory nullFlavo [facility] [id number] Memoria 15:30:00 15:30:00 Pre-Reg r Clinic TM 07 [facility] 2017-06-06 2017-06-08 Phone nullFlavo [facility] [id number] Memoria 20:31:00 05:59:59 Message r Clinic TM 09 [facility] 2017-06-05 2017-06-06 Outpatient nullFlavo [facility] [id number] Memoria 17:30:00 05:59:59 r Clinic TM 05 [facility] 2017-04-30 2017-05-02 Phone nullFlavo [facility] [id number] Memoria 17:52:00 05:59:59 Message r Clinic TM 08 [facility] 2017-04-29 2017-04-30 Outpatient nullFlavo [facility] [id number] Memoria 14:20:00 05:59:00 r [place] 00 [facility] 2017-04-25 2017-04-26 Outpatient nullFlavo [facility] [id number] Memoria 14:00:00 05:59:59 r Clinic TM 06 [facility] 2017-04-24 2017-04-26 Phone nullFlavo [facility] [id number] Memoria 22:30:00 05:59:59 Message r Clinic [address] 2017-04-24 2017-04-26 Phone nullFlavo [facility] [id number] Memoria 22:27:00 05:59:59 Message r Clinic TM 06 [facility] 2017-04-04 2017-04-04 Outpatient MHIE MHIE [id number] Memoria 13:00:00 13:00:[address] [place] [address] 2017-03-19 2017-03-20 Outpatient nullFlavo [facility] [id number] Memoria 15:22:00 04:59:00 r Mitesh 98 l [facility] 2017-03-19 2017-03-19 Outpatient AMPARO CHRISTENSEN [id number] Memoria 08:45:00 08:45:00 03 [facility] 2017-03-19 2017-03-19 Outpatient AMPARO CHRISTENSEN [id number] Memoria 07:45:00 07:45:00 02 [facility] 2016-09-04 2016-09-04 Outpatient AMPARO CHRISTENSEN [id number] Mem[facility] 07:45:00 07:45:00 01 [facility] 2016-08-19 2016-08-19 Outpatient AMPARO CHRISTENSEN [id number] Mem[facility] 10:30:00 10:30:00 00 [facility] Results Test Description Test Time Test Comments Results Result Comments Source GLUBED 2020-02-08 15:58:00 Test Item Value Reference Range Interpretation Comme nts GLUBED (test code = GLUBED) 147 MG/DL 70-105 H [id number] 16:42:00 Test Item Value Reference Range Interpretation Comments PTT (test code = PTT) 29.4 s 22.9-35.8 [id number] 16:42:00 Test Item Value Reference Range Interpretation Comments PT (test code = PT) 12.8 s 12.0-14.7 [id number] 16:42:00 Test Item Value Reference Range Interpretation Comments INR (test code = INR) 0.96 0.85-1.17 [facility]2017-12-05 15:26:00 Test Item Value Reference Range Interpretation Comments eGFR (test code = eGFR) 95 [facility]2017-12-05 15:26:00 Test Item Value Reference Range Interpretation Comments Creatinine Lvl (test code = Creatinine 0.92 0.50-1.40 Lvl) [facility]2017-12-05 15:26:00 Test Item Value Reference Range Interpretation Comments BUN (test code = BUN) 12-14 [id number] 15:26:00 Test Item Value Reference Range Interpretation Comments MCV (test code = MCV) 84.7 80.0-94.0 [id number] 15:26:00 Test Item Value Reference Range Interpretation Comments Hct (test code = Hct) 41.3 42.0-54.0 [id number] 15:26:00 Test Item Value Reference Range Interpretation Comments MCH (test code = MCH) 27.9 pg 27.0-31.0 [id number] 15:26:00 Test Item Value Reference Range Interpretation Comments MCHC (test code = MCHC) 32.9 32.0-36.0 [id number] 15:26:00 Test Item Value Reference Range Interpretation Comments WBC (test code = WBC) 7.2 3.7-10.4 [id number] 15:26:00 Test Item Value Reference Range Interpretation Comments RBC (test code = RBC) 4.87 4.70-6.10 [id number] 15:26:00 Test Item Value Reference Range Interpretation Comments Hgb (test code = Hgb) 13.6 14.0-18.0 [id number] 15:26:00 Test Item Value Reference Range Interpretation Comments RDW (test code = RDW) 16.1 11.5-14.5 [id number] 15:26:00 Test Item Value Reference Range Interpretation Comments Platelet (test code = Platelet) 239 133-450 [id number] 15:26:00 Test Item Value Reference Range Interpretation Comments MPV (test code = MPV) 8.0 7.4-10.4 [place] [id number] 05:57:00 Test Item Value Reference Range Interpretation [...] 4 - SerumAlbu min)] EGFR if >60 [place] (test code mL/min/1.73m\\ = EGFRAA) S\\2 EGFR if Non- >60 Estimate d Glomerular Liberian (test code mL/min/1.73m\\ Filtrat ion Rate (eGFR) [...] c hronic kidney failure. CBC WITH AUTO [id number] 05:42:00 Test Item Value Reference Range Interpretation [...] code = 1.0 % 0.0-0.4 H IG%) [id number] 05:53:00 Test Item Value Reference Range Interpretation [...] 4 - SerumAlbu min)] EGFR if >60 [place] (test code mL/min/1.73m\\ = EGFRAA) S\\2 EGFR if Non- >60 Estimate d Glomerular [place]ian (test code mL/min/1.73m\\ Filtrat ion Rate (eGFR) [...] c hronic kidney failure. CBC WITH AUTO [id number] 05:27:00 Test Item Value Reference Range Interpretation [...] code = 1.7 % 0.0-0.4 H IG%) [id number] 04:36:00 Test Item Value Reference Range Interpretation [...] 4 - SerumAlbu min)] EGFR if >60 [place] (test code mL/min/1.73m\\ = EGFRAA) S\\2 EGFR if Non- >60 Estimate d Glomerular [place]ian (test code mL/min/1.73m\\ Filtrat ion Rate (eGFR) [...] c hronic kidney failure. CBC WITH AUTO [id number] 04:14:00 Test Item Value Reference Range Interpretation [...] code = 1.9 % 0.0-0.4 H IG%) [id number] 04:40:00 Test Item Value Reference Range Interpretation [...] 4 - SerumAlbu min)] EGFR if >60 [place] (test code mL/min/1.73m\\ = EGFRAA) S\\2 EGFR if Non- >60 Estimate d Glomerular [place] (test code mL/min/1.73m\\ Filtrat ion Rate (eGFR) [...] c hronic kidney failure. CBC WITH AUTO [id number] 04:09:00 Test Item Value Reference Range Interpretation [...] = 2.4 % 0.0-0.4 H IG%) CULTURE, [id number] 06:50:00To start 15mins after 1st cultureSpecimen: BloodCollected: 01/18/2017 04:05 Status: Final Last Updated: 01/23/2017 06:49 (1) To start 15mins after 1st culture Culture Result (Final) (Final) No Growth After 5 DaysCULTURE, [id number] 06:50:00Specimen: BloodCollected: 01/18/2017 03:55 Status: Final Last [...] code = 3.4 % 0.0-0.4 H IG%) [id number] 04:19:00 Test Item Value Reference Range Interpretation [...] 4 - SerumAlbu min)] EGFR if >60 [place] (test code mL/min/1.73m\\ = EGFRAA) S\\2 EGFR if Non- >60 Estimate d Glomerular Liberian (test code mL/min/1.73m\\ Filtrat ion Rate (eGFR) [...] c hronic kidney failure. CBC WITH AUTO [id number] 04:57:00 Test Item Value Reference Range Interpretation [...] 4.0 % 0.0-0.4 H IG%) CBC AUTO [id number] 04:35:00 Test Item Value Reference Range Interpretation [...] 4 - SerumAlbu min)] EGFR if >60 [place] (test code mL/min/1.73m\\ = EGFRAA) S\\2 EGFR if Non- >60 Estimate d Glomerular [place]ian (test code mL/min/1.73m\\ Filtrat ion Rate (eGFR) [...] c hronic kidney failure. CBC WITH AUTO [id number] 05:01:00 Test Item Value Reference Range Interpretation [...] 4.5 % 0.0-0.4 H IG%) CBC AUTO [id number] 04:56:00 Test Item Value Reference Range Interpretation [...] 4 - SerumAlbu min)] EGFR if >60 [place] (test code mL/min/1.73m\\ = EGFRAA) S\\2 EGFR if Non- >60 Estimate d Glomerular [place]ian (test code mL/min/1.73m\\ Filtrat ion Rate (eGFR) [...] c hronic kidney failure. CBC WITH AUTO [id number] 05:57:00 Test Item Value Reference Range Interpretation [...] code = 4.8 % 0.0-0.4 H IG%) [id number] 05:41:00 Test Item Value Reference Range Interpretation Comments Magnesium (test code = MG) 2.0 mg/dl 1.6-2.3 [id number] 05:41:00 Test Item Value Reference Range Interpretation [...] 4 - SerumAlbu min)] EGFR if >60 [place] (test code mL/min/1.73m\\ = EGFRAA) S\\2 EGFR if Non- >60 Estimate d Glomerular [place]ian (test code mL/min/1.73m\\ Filtrat ion Rate (eGFR) [...] of c hronic kidney failure. LACTIC ACID [id number] 06:43:00 Test Item Value Reference Range Interpretation Comments LACTATE (test code = LAC) 0.9 mmol/l 0.7-2.0 GLYCOSALATED [id number] 05:41:00 Test Item Value Reference Range Interpretation Comments Hemoglobin A1C (test 9.06 % 4.3-6.0 A code = GLYCO) Mean Plasma Glucose 245 mg/dl 90-180 WHEN BONIFACIO T RESULTS FOR (test code = MPG) A1C EXCEED 14.0, THE LINEAR LIMIT OF THE INSTRUMENT, THE CALCULATED RESU LT FOR THE MEAN GLUCOS E IS NOT RELIABLE. CORONARY [id number] 05:09:00 Test Item Value Reference Range Interpretation [...] (test code = 37 mg/dl 30-60 VLDL) [id number] 04:51:00 Test Item Value Reference Range Interpretation Comments Magnesium (test code = MG) 2.1 mg/dl 1.6-2.3 [id number] 04:51:00 Test Item Value Reference Range Interpretation Comments CPK (test code = CPK) 93 U/L 30-135 LIPASE, [id number] 04:43:00 Test Item Value Reference Range Interpretation Comments Lipase (test code = LIPA) 116 U/L 8-223 [id number] 04:43:00 Test Item Value Reference Range Interpretation [...] 4 - SerumAlbu min)] EGFR if >60 [place] (test code mL/min/1.73m\\ = EGFRAA) S\\2 EGFR if Non- >60 Estimate d Glomerular [place]ian (test code mL/min/1.73m\\ Filtrat ion Rate (eGFR) [...]
[2021-10-02] MEDS ORDERED: CEFTRIAXONE 1000 MG/VIAL ONE (16:38)
[2021-10-02] MEDS ORDERED: NA CHLORIDE 0.9% 1,000 ML ONE ×2 (16:38→21:49)
[2021-10-02] MEDS ORDERED: ACETAMINOPHEN 500 MG TAB ONE (16:38)
[2021-10-02 17:05] LABS: Urine Blood Trace-intact (Negative); Urine Glucose Negative (Negative); Urine Protein 2+ (Negative)
[2021-10-02 17:06] LABS: Hematocrit 34.3 % (39.6-49.0); Lymphocytes % 10.5 % (15.3-44.8); MPV 7.6 fL (7.6-11.3); RBC Red Blood Cell Count 4.32 M/uL (4.33-5.43)
[2021-10-02 17:12] LABS: Protime INR 1.11
[2021-10-02 17:15] LABS: Urine Bacteria <20 /HPF (NONE SEEN); Urine RBC NONE SEEN /HPF (NONE SEEN)
[2021-10-02 17:22] LABS: Albumin 3.3 g/dL (3.4-5.0); Bilirubin Total 0.4 mg/dL (0.2-1.0); Magnesium 1.8 mg/dL (1.8-2.4); Potassium 3.7 mmol/L (3.5-5.1); Protein, Total 7.6 g/dL (6.4-8.2)
--- NOTE | 2021-10-02 18:12 | RAD REPORT ---
EXAM DESCRIPTION: RAD - Chest Single View - 10/02/2021 5:45 pm CLINICAL HISTORY: FEVER Chest pain. COMPARISON: Chest Single View dated 08/28/2021; Chest Pa And Lat (2 Views) dated 06/04/2021; Chest Sing le View dated 10/03/2020; Chest Single View dated 10/02/2020 FINDINGS: Portable technique limits examination quality. Mild bilateral interstitial lung opacities are present likely representing pulmonary edema. A viral i nfection could have a similar appearance. The heart is mildly enlarged in size. No displaced fracture s. IMPRESSION: Mild CHF.
--- NOTE | 2021-10-02 18:17 | RAD REPORT ---
EXAM DESCRIPTION: US - Abdomen Exam Limited - 10/02/2021 6:02 pm CLINICAL HISTORY: r/o cholecystitis Right upper quadrant abdominal pain. COMPARISON: Abdomen Exam Complete dated 08/12/2017 FINDINGS: The gallbladder demonstrates multiple shadowing gallstones. No pericholecystic fluid or ga llbladder wall thickening. The common bile duct is normal measuring 5 mm.. The liver demonstrates no findings of intrahepatic biliary dilatation. IMPRESSION: Cholelithiasis.
--- NOTE | 2021-10-02 18:20 | RAD REPORT ---
EXAM DESCRIPTION: CTAbdomen Pelvis W Contrast - 10/02/2021 6:09 pm CLINICAL HISTORY: Abdominal pain. Abdominal pain, acute, nonlocalized COMPARISON: Abdomen Pelvis W Contrast dated 05/29/2019; Abdomen Pelvis W Contrast dated 04/08/2019 ; Abdomen Pelvis W Contrast dated 11/22/2017; Abdomen Pelvis W Contrast dated 01/13/2017 TECHNIQUE: Biphasic CT imaging of the abdomen and pelvis was performed with 100 ml non-ionic IV cont rast. All CT scans are performed using dose optimization technique as appropriate and may include automated exposure control or mA/KV adjustment according to patient size. FINDINGS: The lung bases are clear. The liver is mildly prominent with mild fatty liver. Spleen, pancreas, adrenal glands and kidneys are within normal limits. Cholelithiasis. No bowel obstruction, free air, free fluid or abscess. Moderate stool is retained throughout the colo n. The appendix is normal. No evidence of significant lymphadenopathy. No suspicious bony findings. IMPRESSION: No acute intra-abdominal or pelvic finding. Cholelithiasis.
--- NOTE | 2021-10-02 18:35 | EDPHYS ---
Physician Documentation [facility] Name: Nicola Harvey Age: 56 yrs Sex: Male : 1965 Arrival Date: 10/02/2021 Time: 15:59 Bed 19 Private MD: ED Physician Dakotah Gandhi HPI: 10/02 17:24 This 56 yrs old Male presents to ER via Ambulatory with complaints of Fever, jr8 Nausea. 17:24 The patient reports fever, with an emergency department temperature of 102 degrees jr8 Fahrenheit. Onset: The symptoms/episode began/occurred acutely, today. Modifying factors: there are no obvious modifying factors. Associated signs and symptoms: Pertinent positives: abdominal pain, headache, nausea. Severity of symptoms: At their worst the symptoms were moderate in the emergency department the symptoms are unchanged. The patient has not experienced similar symptoms in the past. The patient has not recently seen a physician. Historical: - Allergies: 16:12 Invokana; jb4 16:12 Jardiance; jb4 - Home Meds: 17:14 amlodipine 5 mg tab 1 tab once daily [Active]; Aspirin Oral [Active]; doxazosin Oral blanco [Active]; Humulin R 100 unit/mL soln [Active]; hydralazine 100 mg Oral tab 1 tab 3 times per day [Active]; Lasix 40 mg Oral tab 1 tab 2 times per day [Active]; lisinopril Oral [Active]; metformin 1,000 mg Oral tab 1 tab 2 times per day [Active]; Metoprolol Tartrate Oral [Active]; - PMHx: 16:12 CHF; Hyperlipidemia; Hypertension; Diabetes - IDDM; lower back pain with injecitons; jb4 Obesity; - PSHx: 16:12 addenoidectomy; rhinoplasty; jb4 - Immunization history:: Adult Immunizations up to date. - Social history:: Smoking status: Patient denies any tobacco usage or history of. Patient/guardian denies using alcohol, street drugs. ROS: 17:24 Eyes: Negative for injury, pain, redness, and discharge, ENT: Negative for injury, jr8 pain, and discharge, Neck: Negative for injury, pain, and swelling, Cardiovascular: Negative for chest pain, palpitations, and edema, Respiratory: Negative for shortness of breath, cough, wheezing, and pleuritic chest pain, Back: Negative for injury and pain, MS/Extremity: Negative for injury and deformity, Skin: Negative for injury, rash, and discoloration. 17:24 Constitutional: Positive for body aches, chills, fever. 17:24 Abdomen/GI: Positive for abdominal pain, nausea. 17:24 Neuro: Positive for headache, Negative for altered mental status, dizziness, gait disturbance. Exam: 17:24 Constitutional: This is a well developed, well nourished patient who is awake, alert, jr8 and in no acute distress. ENT: Nares patent. No nasal discharge, no septal abnormalities noted. Tympanic membranes are normal and external auditory canals are clear. Oropharynx with no redness, swelling, or masses, exudates, or evidence of obstruction, uvula midline. Mucous membranes moist. Neck: Trachea midline, no thyromegaly or masses palpated, and no cervical lymphadenopathy. Supple, full range of motion without nuchal rigidity, or vertebral point tenderness. No Meningismus. Cardiovascular: Regular rate and rhythm with a normal S1 and S2. No gallops, murmurs, or rubs. Normal PMI, no JVD. No pulse deficits. Respiratory: Lungs have equal breath sounds bilaterally, clear to auscultation and percussion. No rales, rhonchi or wheezes noted. No increased work of breathing, no retractions or nasal flaring. Back: No spinal tenderness. No costovertebral tenderness. Full range of motion. Skin: Warm, dry with normal turgor. Normal color with no rashes, no lesions, and no evidence of cellulitis. MS/ Extremity: Pulses equal, no cyanosis. Neurovascular intact. Full, normal range of motion. Neuro: Awake and alert, GCS 15, oriented to person, place, time, and situation. Cranial nerves II-XII grossly intact. Motor strength 5/5 in all extremities. Sensory grossly intact. 17:24 Abdomen/GI: Inspection: obese Bowel sounds: active, all quadrants, Palpation: soft, in all quadrants, mild abdominal tenderness, in the abdomen diffusely, mass, is not appreciated, rebound tenderness, is not appreciated, voluntary guarding, is not appreciated, involuntary guarding, is not appreciated, no appreciated organomegaly, Indicators: McBurney's point is not tender, Cabezas's sign is negative, Rovsing's sign is negative, Liver: tenderness, is not appreciated. Vital Signs: 16:09 BP 139 / 76; Pulse 94; Resp 16; Temp 102.0(O); Pulse Ox 97% on R/A; Weight 148.32 kg jb4 (R); Height 5 ft. 9 in. (175.26 cm) (R); Pain 8/10; 17:41 BP 133 / 60; Pulse 86; Resp 19; Temp 99.8(O); Pulse Ox 98% on R/A; blanco 19:15 BP 150 / 79; Pulse 83; Resp 18 S; Temp 98.4(O); Pulse Ox 100% on R/A; Pain 8/10; ag7 20:15 BP 116 / 53; Pulse 68; Resp 21 S; Pulse Ox 94% on R/A; Pain 0/10; ag7 16:09 Body Mass Index 48.29 (148.32 kg, 175.26 cm) jb4 MDM: 16:15 Patient medically screened. jr8 18:33 Data reviewed: vital signs, nurses notes, lab test result(s), radiologic studies, CT jr8 scan, ultrasound. Data interpreted: Pulse oximetry: on room air is 98 %. Interpretation: normal. Counseling: I had a detailed discussion with the patient and/or guardian regarding: the historical points, exam findings, and any diagnostic results supporting the discharge/admit diagnosis, lab results, radiology results, the need for further work-up and treatment in the hospital. ED course: Spoke with Dr. Mcknight about the patient. Patient still having moderate abdominal pain. No clear cholecystitis or other acute intra-abdominal findings but had 102 fever earlier mild left shift on white cell count. Recommended inpatient at this time will consult Dr. Kebede. Dr. Mcknight good with this at this time.. 10/02 16:18 Order name: Blood Culture Adult (2) [facility] 10/02 16:18 Order name: CBC with Diff; Complete Time: 17:25 10/02 16:18 Order name: CMP; Complete Time: 17:25 10/02 16:18 Order name: Lactate; Complete Time: 17:25 10/02 16:18 Order name: Protime (+inr); Complete Time: 17:25 10/02 16:18 Order name: Ptt, Activated; Complete Time: 17:25 8 10/02 16:18 Order name: Urine Microscopic Only; Complete Time: 17:25 8 10/02 16:18 Order name: Magnesium; Complete Time: 17:25 8 10/02 16:18 Order name: Strep; Complete Time: 17:25 8 10/02 17:03 Order name: Influenza Screen (A ; Complete Time: 17:25 EDOH 10/02 17:03 Order name: SARS-COV-2 RT PCR; Complete Time: 18:25 EDOH 10/02 17:05 Order name: Urine Dipstick-Ancillary; Complete Time: 17:05 EDOH 10/02 17:28 Order name: Throat Culture EDOH 10/02 16:18 Order name: Chest Single View XRAY; Complete Time: 18:25 8 10/02 16:18 Order name: Accucheck; Complete Time: 18:13 8 10/02 16:18 Order name: Cardiac monitoring; Complete Time: 17:[address] [facility] 10/02 16:18 Order name: EKG - Nurse/Tech; Complete Time: 17:15 8 10/02 16:18 Order name: IV Saline Lock - Large Bore; Complete Time: 17:06 8 10/02 16:18 Order name: Labs collected and sent; Complete Time: 17: [facility] 10/02 16:18 Order name: O2 Per Protocol; Complete Time: 17: 8 10/02 16:18 Order name: O2 Sat Monitoring; Complete Time: 17:[address] [facility] 10/02 17:26 Order name: CT Abd/Pelvis - IV Contrast Only; Complete Time: 18:25 8 10/02 17:26 Order name: US Abdomen Limited; Complete Time: 18:25 8 10/02 20:32 Order name: CONS Physician Consult EDOH 10/02 22:10 Order name: Glucose, Ancillary Testing; Complete Time: 22:18 EDMS Administered Medications: 17:05 Drug: Acetaminophen 1000 mg Route: PO; blanco 17:05 Drug: NS 0.9% 1000 ml Route: IV; Rate: 1000 ml; Site: left antecubital; blanco 17:05 Drug: Rocephin (cefTRIAXone) 1 grams Route: IV; Rate: calculated rate; Site: left blanco antecubital; 18:44 Drug: LevaQUIN (levofloxacin) 750 mg Volume: 150 ml; Route: IVPB; Infused Over: 90 blanco mins; Site: left antecubital; Disposition Summary: 10/02/21 18:34 Hospitalization Ordered Hospitalization Status: Inpatient Admission jr8 Provider: Latoya Mcknight Location: Telemetry/MedSur (Inpatient) jr8 Condition: Stable jr8 Problem: new jr8 Symptoms: have improved jr8 Bed/Room Type: Standard [facility] Room Assignment: 212(10/02/21 21:54) Diagnosis - Upper abdominal pain, unspecified jr8 - Other cholelithiasis without obstruction jr8 Forms: - Medication Reconciliation Form jr8 - SBAR form jr8 Addendum: 10/05/2021 07:18 Co-signature as Attending Physician, Dakotah Gandhi MD I agree with the assessment and k dr plan of care. Signatures: Dispatcher [employer] EDOH Kristina Gilbert RN RN Dakotah Gandhi MD MD [facility] Inder Morris PA [facility] Delfin Hopkins RN RN jb4 Tamara-Cynthia Lam RN RN blanco Corrections: (The following items were deleted from the chart) 10/02 17:03 16:19 COVID-19/FLU A+B+MOL.LAB.BRZ ordered. EDOH EDOH 17:25 17:24 Associated signs and symptoms: Pertinent positives: headache, nausea, jr8 jr8 21:54 18:34 jr8 mw
--- NOTE | 2021-10-02 18:35 | ER ---
Nurse's Notes [facility] Name: Nicola Harvey Age: 56 yrs Sex: Male : 1965 Arrival Date: 10/02/2021 Time: 15:59 Bed 19 Private MD: Diagnosis: Upper abdominal pain, unspecified;Other cholelithiasis without obstruction Presentation: 10/02 16:09 Chief complaint: Patient states: Last night I started getting the chills. My temp was jb4 99.0 so I took some motrin. This morning I woke up feeling worse. I started feeling nauseous, having headaches, and abdominal pain. I retook my temp before coming in and it was 102.5 at home. Coronavirus screen: Client presents with at least one sign or symptom that may indicate coronavirus-19. Provider contacted for isolation considerations. Ebola Screen: No symptoms or risks identified at this time. Initial Sepsis Screen: Does the patient meet any 2 criteria? Temp <36.0*C (96.8*F)) or > 38.3*C (100.9*F). HR > 90 bpm. Yes Does the patient have a suspected source of infection? Yes: Acute abdominal pain If YES to both, name of provider notified: Dakotah Gandhi MD Risk Assessment: Do you want to hurt yourself or someone else? Patient reports no desire to harm self or others. Onset of symptoms was October 02, 2021. Transition of care: patient was not received from another setting of care. 16:09 Method Of Arrival: Ambulatory jb4 16:09 Acuity: ANGE 3 jb4 Triage Assessment: 17:13 General: Appears in no apparent distress. Behavior is calm, cooperative. GI: Reports blanco nausea, vomiting. Historical: - Allergies: 16:12 Invokana; jb4 16:12 Jardiance; jb4 - Home Meds: 17:14 amlodipine 5 mg tab 1 tab once daily [Active]; Aspirin Oral [Active]; doxazosin Oral blanco [Active]; Humulin R 100 unit/mL soln [Active]; hydralazine 100 mg Oral tab 1 tab 3 times per day [Active]; Lasix 40 mg Oral tab 1 tab 2 times per day [Active]; lisinopril Oral [Active]; metformin 1,000 mg Oral tab 1 tab 2 times per day [Active]; Metoprolol Tartrate Oral [Active]; - PMHx: 16:12 CHF; Hyperlipidemia; Hypertension; Diabetes - IDDM; lower back pain with injecitons; jb4 Obesity; - PSHx: 16:12 addenoidectomy; rhinoplasty; jb4 - Immunization history:: Adult Immunizations up to date. - Social history:: Smoking status: Patient denies any tobacco usage or history of. Patient/guardian denies using alcohol, street drugs. Screenin:12 Abuse screen: Denies threats or abuse. Denies injuries from another. Nutritional blanco screening: No deficits noted. Tuberculosis screening: No symptoms or risk factors identified. Fall Risk IV access (20 points). Assessment: 17:12 Pain: Complains of pain in abdomen. GI: Abdomen is round Reports nausea, vomiting. blanco 19:14 Reassessment: Patient and/or family updated on plan of care and expected duration. Pain ag7 level reassessed. Patient is alert, oriented x 3, equal unlabored respirations, skin warm/dry/pink. Pain: Complains of pain in abdomen Pain does not radiate. Pain currently is 8 out of 10 on a pain scale. Quality of pain is described as aching, Pain began suddenly, Is continuous, Alleviated by medications, rest. 20:14 Reassessment: Patient and/or family updated on plan of care and expected duration. Pain ag7 level reassessed. Patient is alert, oriented x 3, equal unlabored respirations, skin warm/dry/pink. Patient denies pain at this time. Patient states feeling better. 21:14 Reassessment: Patient and/or family updated on plan of care and expected duration. Pain ag7 level reassessed. Patient is alert, oriented x 3, equal unlabored respirations, skin warm/dry/pink. Patient states symptoms have improved. 22:37 Reassessment: No changes from previously documented assessment. Report called [address], call back pending. 22:44 Reassessment: Report called to Gina Mancilla RN RM 212 [facility]. [facility] Vital Signs: 16:09 BP 139 / 76; Pulse 94; Resp 16; Temp 102.0(O); Pulse Ox 97% on R/A; Weight 148.32 kg jb4 (R); Height 5 ft. 9 in. (175.26 cm) (R); Pain 8/10; 17:41 BP 133 / 60; Pulse 86; Resp 19; Temp 99.8(O); Pulse Ox 98% on R/A; blanco 19:15 BP 150 / 79; Pulse 83; Resp 18 S; Temp 98.4(O); Pulse Ox 100% on R/A; Pain 8/10; ag7 20:15 BP 116 / 53; Pulse 68; Resp 21 S; Pulse Ox 94% on R/A; Pain 0/10; ag7 16:09 Body Mass Index 48.29 (148.32 kg, 175.26 cm) jb4 ED Course: 15:59 Patient arrived in ED. ds1 16:12 Triage completed. jb4 16:12 Arm band placed on right wrist. jb4 16:15 Inder Morris PA is PHCP. jr8 16:15 Dakotah Gandhi MD is Attending Physician. jr8 16:30 Cynthia Plasencia, KRUNAL is Primary Nurse. blanco 17:05 Influenza Screen (A Sent. blanco 17:05 SARS-COV-2 RT PCR Sent. blanco 17:06 Blood Culture Adult (2) Sent. blanco 17:06 CBC with Diff Sent. blanco 17:06 CMP Sent. blanco 17:06 Lactate Sent. blanco 17:06 Protime (+inr) Sent. blanco 17:06 Ptt, Activated Sent. blanco 17:06 Urine Microscopic Only Sent. blanco 17:12 Patient has correct armband on for positive identification. Bed in low position. blanco 17:12 No provider procedures requiring assistance completed. Inserted saline lock: 18 gauge blanco in left antecubital area, using aseptic technique. 17:47 Chest Single View XRAY In Process Unspecified. EDMS 18:04 US Abdomen Limited In Process Unspecified. EDMS 18:11 CT Abd/Pelvis - IV Contrast Only In Process Unspecified. EDMS 18:34 Latoya Mcknight MD is Hospitalizing Provider. jr8 10/03 00:03 Patient admitted, IV remains in place. ag7 Administered Medications: 10/02 17:05 Drug: Acetaminophen 1000 mg Route: PO; blanco 17:05 Drug: NS 0.9% 1000 ml Route: IV; Rate: 1000 ml; Site: left antecubital; blanco 17:05 Drug: Rocephin (cefTRIAXone) 1 grams Route: IV; Rate: calculated rate; Site: left blanco antecubital; 18:44 Drug: LevaQUIN (levofloxacin) 750 mg Volume: 150 ml; Route: IVPB; Infused Over: 90 blanco mins; Site: left antecubital; Outcome: 18:34 Decision to Hospitalize by Provider. jr8 10/03 00:02 Admitted to Med/surg accompanied by nurse, via wheelchair, room 212, with chart, Report ag7 called to Gina HECTOR Condition: stable 00:07 Patient left the ED. ag7 Signatures: Dispatcher [employer] EDWA RevelesEstephania pat ds1 Inder Morris PA PA jr8 Delfin Hopkins, RN RN jb4 Cynthia Plasencia RN RN Candi Sosa, RN RN ag7 Corrections: (The following items were deleted from the chart) 10/02 17:43 17:41 BP 133 / 60; Pulse 86bpm; Resp 19bpm; Pulse Ox 98% RA; blanco blanco 19:27 19:15 BP 150 / 79; Pulse 83bpm; Resp 18bpm; Spontaneous; Pulse Ox 100% RA; Pain 10; ag7 ag7 10/03 00:05 10/02 22:37 Reassessment: [facility], call back pending ag7 ag7
[2021-10-02] MEDS ORDERED: Levofloxacin 750mg IV 750 MG/150 ML BAG IV ONE (18:47)
[2021-10-02] MEDS ORDERED: D50W 25 GM/50 ML SYRINGE IV PRN (21:35)
[2021-10-02] MEDS ORDERED: ACETAMINOPHEN 500 MG TAB PO PRN (21:35)
[2021-10-02] MEDS: NA CHLORIDE 0.9% 1,000 ML IV SCH (21:35)
[2021-10-02] MEDS: INSULIN -REGULAR HUMAN 50 UNIT/0.5 ML ML SQ SCH (21:35)
[2021-10-02] MEDS ORDERED: GLUCAGON 1 MG/VIAL IM PRN (21:35)
[2021-10-03] MEDS: MORPHINE 4 MG/ML SYR IV PRN ×2 (00:43→08:40)
[2021-10-03 02:35] VITALS: BMI 48.1
[2021-10-03 04:43] LABS: Absolute Lymphocytes (CBC) 1.3 K/uL (0.7-4.9); Hematocrit 32.6 % (39.6-49.0); MPV 7.3 fL (7.6-11.3); RBC Red Blood Cell Count 4.12 M/uL (4.33-5.43)
[2021-10-03 04:54] LABS: Albumin 2.9 g/dL (3.4-5.0); Bilirubin Direct 0.1 mg/dL (0-0.2); Bilirubin Total 0.4 mg/dL (0.2-1.0); Potassium 4.1 mmol/L (3.5-5.1); Protein, Total 7.2 g/dL (6.4-8.2)
[2021-10-03] MEDS: NA CHLORIDE 0.9% 1,000 ML IV SCH ×2 (05:27→21:52)
--- NOTE | 2021-10-03 07:28 | HP ---
Date of Admission: 10/02/2021 Chief Complaint: Abdominal pain and fever. History Of Present Illness: This is a 56-year-old pleasant male patient, who was doing fine in his n ormal usual state of health until yesterday evening. He started to have right upper quadrant and epi gastric abdominal pain and fever. His pain has been more or less continuous. No aggravating or reli eving factor. He has had some nausea with it. No constipation or diarrhea. [facility] and admitted to hospital. I saw him in emergency room. His was pr esent with him at bedside. He denies any cough, cold, congestion. No urinary complaints. Allergies: NO KNOWN ALLERGIES. Medications: List reviewed. Review of Systems: Constitutional: As mentioned above. GI: As mentioned above. All other systems reviewed and negative. Social History: Negative for smoking and alcohol use. Family History: Significant for colon cancer and prostate cancer. Past Surgical History: Significant for sinus surgery. Past Medical History: Significant for hypertension, obstructive sleep apnea, cervical spinal stenosi s, type 2 diabetes mellitus, lumbar radiculopathy, hyperlipidemia, recurrent cellulitis of lower extr emities, and lymphedema of legs. Also past medical history significant for coronary artery disease. Physical Examination: Vital Signs: When he first came into emergency room; temperature 102 degrees Fahrenheit, pulse 94, r espiratory rate 16, blood pressure 139/76. Height 5 feet 9 inches, weight 326 pounds. General: Awake, alert, oriented, not in distress. HEENT: Head atraumatic, normocephalic. Conjunctivae nonerythematous. Sclerae white. Mouth, no thr ush or edema noted. Ears/Nose, no mass, lesion, discharge noted. Neck: Supple. No JVD, lymph nodes, bruit, thyromegaly noted. Lungs: Bilateral good equal air entry. Clear to auscultation. No rhonchi. No rales. Heart: Normal heart sounds, no murmur or gallop. Abdomen: Shows evidence of mild tenderness in right upper quadrant. No rebound tenderness. No guar ding. No rigidity. No hepatosplenomegaly. No bruit. Bowel sounds normoactive. Extremities: Trace bilateral leg edema, but left leg skin is pink and warm to touch. No open wound. This area of pink and warm skin involved lower 2/3rd of left lower extremity. Skin: No rash, ulcer, cellulitis. Lymphatics: No lymph node enlargement in neck, supraclavicular, infraclavicular region. Neuro: No focal neurological deficit. Chest: Unremarkable. External Genitalia: Deferred. Rectal: Deferred. Laboratory Data: White count 9.6, hemoglobin 11.3, platelets 234. Sodium 135, potassium 3.7, chlori de 100, bicarb 28, BUN 22, creatinine 1.26, glucose 74. Liver function tests unremarkable. Lactic a jackie 0.9. COVID-19 test negative. Urinalysis; trace blood and 2+ protein. Chest x-ray shows mild CH F pattern, but clinically the patient does not have any congestive heart failure changes or symptoms. Ultrasound of abdomen, which was right upper quadrant ultrasound shows presence of gallstones and C AT scan of abdomen and pelvis shows evidence of fatty liver disease and gallstone. No evidence of an y gallbladder wall thickening or fluid around gallbladder. Impression: 1.Cellulitis, left leg. 2.Cholelithiasis. 3.Hypertension. 4.Hyperlipidemia. 5.Type 2 diabetes mellitus. 6.Obstructive sleep apnea. 7.Cervical spondylosis. 8.Lumbar spondylosis. 9.Lymphedema, legs. Plan: Admit the patient to hospital for further evaluation and management of this problem. The morena ent is appropriate for inpatient and is expected to spend 2 midnights in hospital. We will go ahead and consult general surgeon, Dr. Kebede, keep the patient n.p.o. at this point. I will re-evaluate him tomorrow morning. The patient will be given antibiotic Levaquin and we will continue antihypert ensive medication per order. Diabetes will be managed with insulin sliding scale per order. Details and plan of treatment discussed with the patient. DVT prophylaxis will be given using Lovenox. WALT/MODL Voice ID: [id number]
[2021-10-03] MEDS: INSULIN -REGULAR HUMAN 50 UNIT/0.5 ML ML SQ SCH ×4 (07:30→21:00)
--- NOTE | 2021-10-03 07:31 | EKG ---
Test Date: 2021-10-02 Test Time: 17:06:56 Numerical Control Machine Tool Operator: CHARLIE MEASUREMENT RESULTS: Intervals: Rate: 83 IL: 136 QRSD: 110 QT: 364 QTc: 427 [place]: P: 22 IL: 136 QRS: 92 T: 32 INTERPRETIVE STATEMENTS: Normal sinus rhythm Rightward axis Incomplete right bundle branch block Borderline ECG Compared to ECG 08/28/2021 08:13:30 Sinus bradycardia no longer present Myocardial infarct finding no longer present Electronically Signed On 10-03-21 07:29:51 CDT by Ifeanyi Blood
--- NOTE | 2021-10-03 07:31 | EKG ---
Test Date: 2021-10-02 Test Time: 18:46:58 Cushion Sewer: CHARLIE MEASUREMENT RESULTS: Intervals: Rate: 133 FL: 180 QRSD: 68 QT: 270 QTc: 401 [place]: P: 77 FL: 180 QRS: 46 T: 22 INTERPRETIVE STATEMENTS: Sinus tachycardia Anteroseptal infarct, age undetermined Abnormal ECG Compared to ECG 10/02/2021 17:06:56 Myocardial infarct finding now present Sinus rhythm no longer present Right-axis deviation no longer present Incomplete right bundle-branch block no longer present Electronically Signed On 10-03-21 07:29:50 CDT by Ifeanyi Blood
[2021-10-03] MEDS: METOPROLOL TAR 50 MG TAB PO SCH ×2 (08:32→21:51)
[2021-10-03] MEDS: HYDRALAZINE HCL 10 MG TABLET PO SCH ×2 (08:32→21:51)
[2021-10-03] MEDS: AMLODIPINE 5 MG TAB PO SCH ×2 (08:33→23:44)
[2021-10-03] MEDS: lisinopriL 20 MG TAB PO SCH (08:33)
[2021-10-03] MEDS ORDERED: D10W 125 ML IV PRN (08:59)
--- NOTE | 2021-10-03 16:59 | CON ---
Date of Consultation: 10/03/2021 Diagnoses: Two problems. The patient has nausea, right upper quadrant abdominal pain, but also has leg cellulitis. He has came here with fever too. He said that last time he ate was yesterday tino strong. He had a breakfast with sausage and cheese. After that, he felt sick and then last night came to the ER with abdominal pain. The patient has once again nausea, fever, abdominal pain. This morning , he says it is mostly in the right upper quadrant. Allergies: NONE. Medications: Reviewed. Social History: He does not smoke. He does not drink alcohol. Family History: History of prostate and colon cancer. Past Medical History: Includes sleep apnea, leg lymphedema, and coronary artery disease. Physical Examination: General: The patient is awake, alert. Vital Signs: At one point, the patient has high temperature of 102. HEENT: Pupils are equal and reactive. Anicteric. Neck: Supple. Chest: Clear. Abdomen: Epigastric right upper quadrant tenderness. Soft and depressible. Pelvic: Deferred. Rectal: Deferred. Extremity: Good capillary refill. Lymphedema present in bilateral lower extremities. Mild erythema . Laboratory Data: Blood work shows WBC count of 9.6, hemoglobin of 11.3, platelets of 234. INR of 1. 1. Potassium of 4.1, total bilirubin of 0.4. Ultrasound of the abdomen and CAT scan of the abdomen interpreted by Dr. Pirngle as cholelithiasis. Assessment: A 56-year-old patient comes to us with few problems; fever, nausea, abdominal pain, also bilateral lower extremity lymphedema, possible early cellulitis. The patient has been treated by [facility] primary doctor for that condition. At the same time, the patient has right upper quadrant tenderne ss, mainly postprandial and after eating sausage for breakfast. I explained to him the option of lap aroscopic possible open cholecystectomy, with benefits, alternatives, and risks including, but not li mited to infection, bleeding, damage to adjacent structures, anesthesia complication, choledocholithi asis, bile leak, pancreatitis, [place], and even . He also understands this may not relieve any symp toms. He might need more than one surgical intervention. He also understands the importance of losi ng weight. Dr. Mcknight will be seeing this patient from medical standpoint. Also, he requested Dr. Fowler to see him from the Cardiology standpoint for medical clearance to proceed with surgery. DELLA/KAUR Voice ID: [id number] Report ID: [id number]
[2021-10-03] MEDS: Levofloxacin 750mg IV 750 MG/150 ML BAG IV SCH (17:15)
[2021-10-03] MEDS: ENOXAPARIN 40 MG/0.4 ML SQ SCH (17:15)
[2021-10-04] MEDS: NA CHLORIDE 0.9% 1,000 ML IV SCH ×2 (00:15→12:59)
--- NOTE | 2021-10-04 02:48 | PN ---
Date of Progress Note: 10/03/2021 Subjective: The patient was seen this morning for followup. No new complaints or problems reported by him. He continues to have right upper quadrant pain with some nausea. No vomiting. Overnight he modynamically, he remained stable. Objective: Vital Signs: Reviewed. HEENT: Examination unremarkable. Lungs: Clear to auscultation. Heart: Sounds normal. Abdomen: Soft. Bowel sounds normal. No guarding, rigidity, or distention. Presence of right upper quadrant tenderness, which is less today compared to yesterday. No rebound tenderness. Extremity: Left lower extremity area of pink and warm skin is better today than yesterday. Laboratory Data: White count 7.8, hemoglobin 10.9, and platelets . Sodium 136, potassium 4.1, chloride 103, bicarb 28, BUN 16, creatinine 0.95, and glucose 145. Liver function tests unremar kable Impression: 1.Cellulitis, left lower extremity. 2.Cholelithiasis. 3.Hypertension. 4.Diabetes mellitus. 5.Coronary artery disease. Plan: We will go ahead and continue current medication. Continue current antibiotic. The patient w as n.p.o. this morning when I saw him and Dr. Kebede did evaluate him after I saw him and details w ere discussed with him. He is recommending surgery for what he believes the patient has his acute ch olecystitis with gallstone and I have advised him to get Cardiology clearance, and once we get Cardio logy clearance done, the patient can have laparoscopic cholecystectomy. Details were discussed with the patient this morning. Meanwhile, we will continue current antihypertensive medication, diabetes management, and antibiotics. WALT/MODL Voice ID: [id number] Report ID: [id number]
[2021-10-04] MEDS ORDERED: NA CHLORIDE 0.9% 1,000 ML ONE (06:58)
[2021-10-04] MEDS ORDERED: LIDOCAINE 2% MPF 5 ML VIAL ONE (07:06)
[2021-10-04] MEDS ORDERED: MIDAZOLAM HCL 2 MG/2 ML INJ ONE ×2 (07:06→09:08)
[2021-10-04] MEDS ORDERED: propofoL 200 MG/20 ML VIAL IV ONE ×2 (07:06→09:13)
[2021-10-04] MEDS ORDERED: ROCURONIUM 50 MG/5 ML VIAL IV ONE (07:06)
[2021-10-04] MEDS ORDERED: FENTANYL CITR 100 MCG/2 ML ONE (07:06)
[2021-10-04] MEDS ORDERED: ONDANSETRON 4 MG/2 ML VIAL ONE (07:14)
[2021-10-04] MEDS ORDERED: BUPIVACAINE 0.5% Inj,MDV 50 mL VIAL ONE (07:15)
[2021-10-04] MEDS: INSULIN -REGULAR HUMAN 50 UNIT/0.5 ML ML SQ SCH ×4 (07:30→21:00)
--- NOTE | 2021-10-04 08:34 | P.BOP ---
Preoperative diagnosis: Acute cholecystitis, symptomatic cholelithiasis, morbid obesity Postoperative diagnosis: same Primary procedure: Laparoscopic cholecystectomy Heavy Coil Winder: Merry Del Valle) Estimated blood loss: <10cc Specimen: gb Findings: as above, inflammed gallbladder wall with stone Anesthesia: General Complications: None Transferred to: Recovery Room Condition: Good
[2021-10-04] MEDS ORDERED: KETOROLAC 30 MG/ML INJ ONE (08:36)
[2021-10-04] MEDS ORDERED: MORPHINE 2 MG/ML SYR IV PRN (08:38)
[2021-10-04] MEDS ORDERED: Mastisol Adhesive Liq ONE (08:42)
[2021-10-04] MEDS ORDERED: MORPHINE 10 MG/ML VIAL ONE (08:42)
[2021-10-04] MEDS ORDERED: NEOSTIGMINE 1 MG/ML -10 ML VIAL ONE (08:45)
[2021-10-04] MEDS ORDERED: GLYCOPYRROLATE 0.2 MG/ML SYR ONE (08:45)
[2021-10-04] MEDS: HYDRALAZINE HCL 10 MG TABLET PO SCH ×2 (09:00→21:05)
[2021-10-04] MEDS: lisinopriL 20 MG TAB PO SCH (09:00)
[2021-10-04] MEDS: AMLODIPINE 5 MG TAB PO SCH ×2 (09:00→21:57)
[2021-10-04] MEDS: METOPROLOL TAR 50 MG TAB PO SCH ×2 (09:00→21:05)
[2021-10-04] MEDS ORDERED: KETAMINE HCL 500 MG/5 ML VIAL ONE (09:23)
[2021-10-04] MEDS: ALBUTEROL 2.5 MG/3 ML NEB SOL ONE ×2 (09:25→09:30)
--- NOTE | 2021-10-04 10:00 | OP ---
Date of Procedure: 10/04/2021 Surgeon: Young Kebede MD Grounds Maintenance Worker: TANMAY Hoang. Preoperative Diagnoses: Acute cholecystitis, symptomatic cholelithiasis, morbid obesity. Postoperative Diagnoses: Acute cholecystitis, symptomatic cholelithiasis, morbid obesity. Procedure: Laparoscopic cholecystectomy. Estimated Blood Loss: Less than 10 mL. Specimen: Gallbladder. Finding: As above. Inflamed gallbladder wall consistent with acute cholecystitis. Anesthesia: General plus local. Indication: This is the case of a 56-year-old patient, comes to us with 2 problems. One of them is symptomatic cholelithiasis and recurrent right upper quadrant pain radiating to the back with nausea. This happened after eating sausage of breakfast. The patient diagnosed also with cholecystitis and still right upper quadrant pain. He wants surgery to be done during this admission. So, we explain ed to him benefits, alternatives, and risks of laparoscopic possible open cholecystectomy, which incl ude, but not limited to infection, bleeding, damage to adjacent structures, anesthesia complication, choledocholithiasis, bile leak, pancreatitis, [place], and even . He also understands this may not r elieve any symptoms. He might need more than one surgical intervention. He understood, signed a con sent. The patient also explained the importance of losing weight. The patient was seen by Dr. Ember stewart, who cleared him from the Cardiology standpoint. Procedure In Detail: The patient was brought to the operating room, placed in supine position. Anes thesia was done without complication. Abdominal area was prepped and draped in the usual sterile fas hion. Marcaine 0.5% was injected for local anesthetic followed by sharp incision of the skin in the supraumbilical region. The incision was carried down to fascia, which was opened under direct vision . Peritoneum was encountered, opened under direct vision. Vicryl #1 placed inside the fascia. Kenji on trocar was carefully introduced. Pneumoperitoneum was obtained. I placed 3 more trocars, 5 mm ea ch one of them in the epigastric and ventral region. At that moment, I proceeded to put a grasper in the fundus of the gallbladder, another grasper in the infundibulum retracting the gallbladder in the inferolateral fashion and exposing the triangle of Calot. We introduced Endo needle under direct vi sualization and partially deflated the gallbladder due to distention. The needle was removed under d irect visualization. At that moment, I proceeded to once again put the gallbladder in the inferolate ral fashion exposing the triangle of Calot and obtaining critical view. Cystic duct and cystic arter y were clearly isolated, free circumferentially and a connection between those and the gallbladder we re clearly identified. I proceeded to ligate those by using at least 3 clips proximal, 1 clip distal , ligation in middle. Same was done with the cystic artery. A small little branch of the cystic art denae was also ligated using the same technique. Hepatic arteries and common bile duct were protected at all times. Gallbladder was removed from liver using Bovie cauterizer and removed from abdominal c avity using EndoCatch through the umbilical incision. The area was inspected once again. No bile le ak. No bleeding. Clips were intact. Gallbladder fossa with no bleeding. At that moment, I proceed ed to remove the trocars under direct vision. Deflated pneumoperitoneum. Closed the fascia with #1 Vicryl. Irrigated subcutaneous tissue, closed that with 3-0 chromic and skin in a subcuticular fashi on with 3-0 chromic and Steri-Strips on top. Sponge count and instrument counts correct. The patien t tolerated the procedure well. The patient was sent to recovery in stable condition. Previously, t he patient was explained the instructions to be discharged home in case he goes home today if he tole rates diet. He was explained the importance of followup in my office in 1 week. Call for appointmen t at [phone]. Keep area dry for 48 hours and then may remove outer dressings and shower, but keep S griselda-Strips intact. He was also advised the importance of no heavy lifting and very important weight loss. DELLA/MODL Voice ID: [id number] Report ID: [id number]
--- NOTE | 2021-10-04 10:54 | CON ---
Date of Consultation: 10/03/2021 Reason For Consultation: Cardiac clearance for cholecystectomy. History Of Present Illness: Mr. Harvey is 56. Has a history of obesity, coronary artery disease, hyp ertension, diabetes, dyslipidemia. Came in with acute cholecystitis. Has been seen by Dr. Kebede. They are planning surgery on him. He does not have any cardiac symptoms. He does have a history o f coronary artery disease. Approximately a year ago, a catheterization showed about a 40% stenosis i n the LAD with some minimal disease otherwise. Past Medical History: As stated above. Allergies: HE IS ALLERGIC TO CANAGLIFLOZIN. Medications: At home include Norvasc, hydralazine, lovastatin, metoprolol, insulin, lisinopril, metf ormin, and Cardura. Review of Systems: Negative. Social History: Negative. Family History: Negative. Physical Examination: Vital Signs: He weighed 327 pounds. Otherwise, vital signs stable, afebrile. HEENT: Negative. Neck: Supple with no bruit. Chest: Clear to auscultation and percussion. Cardiac: Revealed a regular rhythm and rate. No murmurs, gallops, or rubs. Abdomen: Benign. Extremities: Revealed no clubbing, cyanosis, or edema. Diagnostic Data: EKG showed incomplete right bundle-branch block. Chest x-ray showed possible mild failure. Impression And Plan: I think Mr. Harvey is low risk for perioperative mortality. He does not have an y cardiac symptoms, has mild coronary artery disease. He will need a stress test in the next few mon ths in the office and I will make arrangements for that. Continue present regimen for his diabetes w ith hypertension, dyslipidemia. I will be available for questions if the need arise after surgery. RYAN/MODL Voice ID: [id number] Report ID: [id number]
[2021-10-04] MEDS: ONDANSETRON 4 MG/2 ML VIAL IV PRN ×2 (12:58→17:34)
[2021-10-04] MEDS: HYDROCODONE/APAP 7.5/325 MG TAB PO PRN ×2 (16:46→23:50)
[2021-10-04] MEDS: ENOXAPARIN 40 MG/0.4 ML SQ SCH (16:46)
[2021-10-04] MEDS: Levofloxacin 750mg IV 750 MG/150 ML BAG IV SCH (16:47)
[2021-10-05 01:25] VITALS: O2SAT 97
[2021-10-05] MEDS: NA CHLORIDE 0.9% 1,000 ML IV SCH (03:18)
[2021-10-05 08:50] VITALS: BP 130/68; TEMP 97.2
--- NOTE | 2021-10-05 10:42 | PN ---
Date of Progress Note: 10/04/2021 Subjective: Patient was seen this morning for followup. He was seen prior to surgery this morning. Objective: Vital Signs: Reviewed. HEENT: Unremarkable. Lungs: Clear to auscultation. Cardiac: Heart sounds normal. Abdomen: Soft. Bowel sounds normal. No guarding, rigidity, distention, and presence of right upper quadrant tenderness unchanged from yesterday. Extremities: No leg edema. Impression: 1.Acute cholecystitis with gallstones. 2.Cellulitis, left leg. 3.Hypertension. 4.Type 2 diabetes mellitus. 5.Morbid obesity. Plan: We will go ahead and continue current medications, continue current antibiotic and Dr. Jenae zafar called and informed me after the surgery that he was able to do laparoscopic cholecystectomy and ga llbladder did have cholecystitis pains. Postoperatively, the patient was very drowsy, sleepy, and he did require some oxygen replacement therapy and considering his recovery after surgery is slow, we w ill keep him in the hospital tonight and plan to discharge him to go home tomorrow. WALT/MODL Voice ID: [id number] Report ID: [id number]
--- NOTE | 2021-10-07 13:47 | DS ---
Date of Discharge: 10/05/2021 Disposition: Discharged to go home. Physical Examination: HEENT: Unremarkable. Lungs: Clear to auscultation. Heart: Sounds normal. Abdomen: Soft. Bowel sounds normal. No guarding, rigidity, tenderness, or distention. Extremities: Very trace leg edema and warmness and redness from left lower extremity have almost res olved. Discharge Medications And Instructions: 1.Continue all prior home medications except do not take any aspirin, Aleve, Motrin type of medicati ons. 2.Take Levaquin 750 mg 1 tablet by mouth daily for 1 week. 3.Take tramadol 50 mg 1 tablet by mouth 4 times a day as needed for pain. 4.Follow up at my office next week on Friday, which is 10/09/2021. Call office for appointment. 5.Follow with Dr. Kebede as per his instructions. Hospital Course: This is a 56-year-old very pleasant male patient, admitted to the hospital with abd ominal pain and fever. Please see dictated H and P for more information. The patient presented to e mergency room with these complaints. He was noted to have left lower extremity cellulitis and he cam e in with right upper quadrant pain. Ultrasound of abdomen which was right upper quadrant ultrasound had showed presence of gallstone and CAT scan of abdomen and pelvis showed evidence of fatty liver d isease and gallstones. Empiric antibiotics were started which was Levaquin. General surgeon, Dr. Patrick claire was consulted and he recommended laparoscopic cholecystectomy and after Cardiology consultatio n was requested for preop clearance, the patient had surgery done and postoperatively he was doing fi ne except afternoon after the surgery, it took him little longer than expected time to recover from t he anesthesia as he was more groggy and sleepy and as a result, we were not able to discharge him to go home same day of surgery and we had to keep him 1 extra day. Today on day of discharge, he is doi ng fine, back to his normal self, no more abdominal pain, and the patient was discharged in stable co ndition with above-mentioned medications and instructions. Final Diagnoses: 1.Gallstone with cholecystitis. 2.Cellulitis, left leg. 3.Hypertension. 4.Hyperlipidemia. 5.Type 2 diabetes mellitus. 6.Obstructive sleep apnea. 7.Cervical spondylosis. 8.Lumbar spondylosis. 9.Lymphedema, legs. WALT/MODL Voice ID: [id number] Report ID: [id number]
== END 2021-10-05 09:00 | disposition home or self-care (01) | DRG 418 ==
LOC: ER 15:49 → ERHOLD 20:32 → 2ND 23:24
PROVIDERS: ADMIT Internal Medicine; ATTEND Internal Medicine
PROC: 0FT44ZZ Resection of Gallbladder, Percutaneous Endoscopic Approach (ICD-10-PCS; principal; 2021-10-04 07:30)
DX: K80.12 Calculus of gallbladder with acute and chronic cholecystitis without obstruction (principal); L03.116 Cellulitis of left lower limb; Z68.42 Body mass index [BMI] 45.0-49.9, adult; I10 Essential (primary) hypertension; E78.5 Hyperlipidemia, unspecified; E11.9 Type 2 diabetes mellitus without complications; G47.33 Obstructive sleep apnea (adult) (pediatric); M47.812 Spondylosis without myelopathy or radiculopathy, cervical region; M47.816 Spondylosis without myelopathy or radiculopathy, lumbar region; I89.0 Lymphedema, not elsewhere classified; E66.01 Morbid (severe) obesity due to excess calories; I25.10 Atherosclerotic heart disease of native coronary artery without angina pectoris; Z80.42 Family history of malignant neoplasm of prostate; Z80.0 Family history of malignant neoplasm of digestive organs; Z20.822 Contact with and (suspected) exposure to COVID-19
CPT/HCPCS: 36415; 71045; 74177; 76705; 80048; 80053; 80076; 81003; 81015; 82947; 83605; 83690; 83735; 85025; 85610; 85730; 87040; 87070; 87081; 87804; 88304; 93005; 96374; 96375; 99285; J1650; J1815; J2250; J2270; J2405; J2704; J2710; J3010; J7030; Q9967; U0003

== ENCOUNTER 2021-11-23 09:25 | Emergency (ER) | payer OTHER ==
--- NOTE | 2021-11-23 10:15 | RAD REPORT ---
EXAM DESCRIPTION: RAD - Chest Single View - 11/23/2021 10:06 am CLINICAL HISTORY: CHEST PAIN COMPARISON: Chest Single View dated 10/02/2021; Chest Single View dated 08/28/2021; Chest Pa And Lat (2 Views) dated 06/04/2021; Chest Single View dated 10/03/2020 FINDINGS: Lines: None. Lungs: No evidence of edema or pneumonia. Prominence of the central pulmonary vasculature. Pleural: No significant pleural effusions or pneumothorax. Cardiac: Enlarged cardiac silhouette. Bones: No acute fractures. Other: IMPRESSION: No acute cardiopulmonary disease.
[2021-11-23] MEDS ORDERED: IPRATROPIUM BROM 0.5MG/2.5ML ONE (10:17)
[2021-11-23] MEDS ORDERED: ALBUTEROL 2.5 MG/3 ML NEB SOL ONE (10:17)
[2021-11-23] MEDS ORDERED: HYDROCODONE/CHLORPHEN 5 ML/OSYR ONE (10:17)
[2021-11-23 10:18] LABS: Absolute Lymphocytes (CBC) 0.5 K/uL (0.7-4.9); Hematocrit 37.6 % (39.6-49.0); MCV 78.9 fL (80-100); MPV 7.7 fL (7.6-11.3); RBC Red Blood Cell Count 4.76 M/uL (4.33-5.43)
[2021-11-23 10:35] LABS: Protime INR 1.05
[2021-11-23 10:37] LABS: Albumin 3.8 g/dL (3.4-5.0); Bilirubin Direct 0.1 mg/dL (0-0.2); Bilirubin Total 0.4 mg/dL (0.2-1.0); Magnesium 2.1 mg/dL (1.8-2.4); Potassium 3.8 mmol/L (3.5-5.1); Protein, Total 8.2 g/dL (6.4-8.2); Troponin High Sensitivity 5.1 pg/mL (<58.9)
[2021-11-23] MEDS ORDERED: IBUPROFEN 400 MG TAB ONE (10:37)
--- NOTE | 2021-11-23 12:20 | ER ---
Nurse's Notes [facility] Name: Nicola Harvey Age: 56 yrs Sex: Male : 1965 Arrival Date: 11/23/2021 Time: 09:30 Bed 8 Private MD: Diagnosis: Coronavirus infection, unspecified Presentation: 11/23 09:30 Chief complaint: EMS states: SOB and chest pain to R and L chest that began at approx ph 0300 this morning, reports that CP worsens w/ inhalation and cough, Spo2 96% RA, improved to 100% on 2L NC, oral temperature of 101.3, other VSS. Coronavirus screen: Vaccine status: Patient reports receiving the 2nd dose of the covid vaccine. shortness of breath, Client presents with at least one sign or symptom that may indicate coronavirus-19. Provider contacted for isolation considerations. Ebola Screen: No symptoms or risks identified at this time. Risk Assessment: Do you want to hurt yourself or someone else? Patient reports no desire to harm self or others. Onset of symptoms was November 23, 2021. 09:30 Method Of Arrival: EMS: [facility] ph 09:35 Initial Sepsis Screen: Does the patient meet any 2 criteria? RR > 20 per min. Temp ph <36.0*C (96.8*F)) or > 38.3*C (100.9*F). Yes Does the patient have a suspected source of infection? Yes: Productive cough/pneumonia. 09:35 Acuity: ANGE 3 ph Triage Assessment: 09:37 General: Appears in no apparent distress. uncomfortable, Behavior is calm, cooperative, ph appropriate for age, Reports fever for 12-24 hours. Pain: Complains of pain in anterior aspect of right upper chest and anterior aspect of left upper chest Aggravated by cough. Neuro: Level of Consciousness is awake, alert, obeys commands, Oriented to person, place, time, situation. Cardiovascular: Reports chest pain, shortness of breath, Capillary refill < 3 seconds in bilateral fingers Patient's skin is warm and dry. Respiratory: Reports shortness of breath at rest cough that is non-productive, pain with cough pain with respiration Airway is patent Respiratory effort is even, unlabored, Onset: The symptoms/episode began/occurred this morning, the patient has moderate shortness of breath. GI: No signs and/or symptoms were reported involving the gastrointestinal system. Derm: Skin is intact, is healthy with good turgor. Musculoskeletal: Circulation, motion, and sensation intact. Range of motion: limited in all extremities. Historical: - Allergies: 09:37 Invokana; ph 09:37 Jardiance; ph 09:32 Invokana; ph 09:32 Jardiance; ph - Home Meds: 09:37 amlodipine 5 mg tab 1 tab once daily [Active]; Aspirin Oral [Active]; doxazosin Oral ph [Active]; Humulin R 100 unit/mL soln [Active]; hydralazine 100 mg Oral tab 1 tab 3 times per day [Active]; Lasix 40 mg Oral tab 1 tab 2 times per day [Active]; lisinopril Oral [Active]; metformin 1,000 mg Oral tab 1 tab 2 times per day [Active]; Metoprolol Tartrate Oral [Active]; - PMHx: 09:37 CHF; Diabetes - IDDM; Hyperlipidemia; Hypertension; lower back pain with injecitons; ph Obesity; 09:32 Diabetes - IDDM; CHF; Hyperlipidemia; Hypertension; lower back pain with injecitons; ph Obesity; - PSHx: :37 addenoidectomy; rhinoplasty; ph 09:32 addenoidectomy; rhinoplasty; ph - Immunization history:: Adult Immunizations up to date. - Social history:: Smoking status: Patient denies any tobacco usage or history of. Screenin:39 Abuse screen: Denies threats or abuse. Denies injuries from another. Nutritional ph screening: No deficits noted. Tuberculosis screening: No symptoms or risk factors identified. Fall Risk None identified. Assessment: 09:45 General: SEE TRIAGE ASSESSMENT. ph 10:37 Reassessment: Patient appears in no apparent distress at this time. Patient and/or ph family updated on plan of care and expected duration. Pain level reassessed. Patient is alert, oriented x 3, equal unlabored respirations, skin warm/dry/pink. 12:00 Reassessment: Patient appears in no apparent distress at this time. Patient and/or ph family updated on plan of care and expected duration. Pain level reassessed. Patient is alert, oriented x 3, equal unlabored respirations, skin warm/dry/pink. 12:46 Reassessment: Patient appears in no apparent distress at this time. Patient and/or ph family updated on plan of care and expected duration. Pain level reassessed. Patient is alert, oriented x 3, equal unlabored respirations, skin warm/dry/pink. Pt d/c home. Vital Signs: 09:35 BP 151 / 72; Pulse 74; Resp 24; Temp 101.3; Pulse Ox 98% on R/A; Weight 148.32 kg; ph Height 5 ft. 9 in. (175.26 cm); Pain 8/10; 10:52 BP 139 / 42; Pulse 86; Resp 22; Temp 101; Pulse Ox 100% on Nebulizer Mask; ph 12:00 BP 128 / 64; Pulse 95; Resp 22; Pulse Ox 97% on R/A; ph 12:44 BP 117 / 77; Pulse 91; Resp 22; Temp 99.0(O); Pulse Ox 98% on R/A; ph 09:35 Body Mass Index 48.29 (148.32 kg, 175.26 cm) ph ED Course: 09:30 Patient arrived in ED. ph 09:33 Zack Anderson NP is PHCP. pm1 09:33 Dakotah Gandhi MD is Attending Physician. pm1 09:35 Mary Anne Grace, KRUNAL is Primary Nurse. ph 09:37 Triage completed. ph 09:38 Arm band placed on Patient placed in an exam room, on a stretcher, on tubing machine operator, ph on pulse oximetry. 09:39 Patient has correct armband on for positive identification. Placed in gown. Bed in low ph position. Call light in reach. Client placed on continuous cardiac and pulse oximetry monitoring. NIBP monitoring applied. Door closed. Noise minimized. Warm blanket given. 09:55 Initial lab(s) drawn, by me, sent to lab. First set of blood cultures drawn by me. ph Inserted saline lock: 22 gauge in left antecubital area, using aseptic technique. 10:08 XRAY Chest (1 view) In Process Unspecified. EDMS 10:25 Second set of blood cultures drawn by me. ph 12:45 No provider procedures requiring assistance completed. IV discontinued, intact, ph bleeding controlled, No redness/swelling at site. Pressure dressing applied. Administered Medications: 10:28 Drug: Albuterol - atroVENT (ipratropium) (3:1) (2.5 mg - 0.5 mg) 3 ml Route: Nebulizer; ph 12:45 Follow up: Response: No adverse reaction ph 10:28 Drug: Tussionex Pennkinetic ER (chlorpheniramine-hydrocodone) Suspension 5 ml Route: PO;ph 12:45 Follow up: Response: No adverse reaction ph 10:37 Drug: Ibuprofen 800 mg Route: PO; ph 12:45 Follow up: Response: No adverse reaction; Temperature is decreased ph Medication: 09:39 VIS not applicable for this client. ph Outcome: 12:20 Discharge ordered by MD. pm1 12:45 Discharged to home ambulatory. ph 12:45 Condition: good 12:45 Discharge instructions given to patient, Instructed on discharge instructions, follow up and referral plans. medication usage, Demonstrated understanding of instructions, follow-up care, medications, Prescriptions given X 2. 12:48 Patient left the ED. ph Signatures: Dispatcher [employer] Mary Anne Berry RN RN ph Marinas, Patrick, NP SENIOR ADMINISTRATIVE SERVICES OFFICER pm1
--- NOTE | 2021-11-23 12:20 | EDPHYS ---
Physician Documentation [facility] Name: Nicola Harvey Age: 56 yrs Sex: Male : 1965 Arrival Date: 11/23/2021 Time: 09:30 Bed 8 Private MD: ED Physician Dakotah Gandhi HPI: 11/23 09:40 This 56 yrs old Male presents to ER via EMS with complaints of Shortness Of pm1 Breath. 09:40 The patient has shortness of breath at rest. pm1 09:40 Onset: The symptoms/episode began/occurred chest and shortness of breath onset at 0300 pm1 this AM. Patient with cough onset yesterday. Duration: The symptoms are continuous. The patient's shortness of breath is aggravated by coughing, is alleviated by nothing. Associated signs and symptoms: Pertinent positives: fever, Pertinent negatives: diaphoresis, dizziness, nausea, vomiting, diarrhea. Severity of symptoms: in the emergency department the symptoms. The patient has not recently seen a physician, the patient's primary care provider is Dr. Mcknight. Tom tavares. Historical: - Allergies: 09:37 Invokana; ph 09:37 Jardiance; ph 09:32 Invokana; ph 09:32 Jardiance; ph - Home Meds: 09:37 amlodipine 5 mg tab 1 tab once daily [Active]; Aspirin Oral [Active]; doxazosin Oral ph [Active]; Humulin R 100 unit/mL soln [Active]; hydralazine 100 mg Oral tab 1 tab 3 times per day [Active]; Lasix 40 mg Oral tab 1 tab 2 times per day [Active]; lisinopril Oral [Active]; metformin 1,000 mg Oral tab 1 tab 2 times per day [Active]; Metoprolol Tartrate Oral [Active]; - PMHx: 09:37 CHF; Diabetes - IDDM; Hyperlipidemia; Hypertension; lower back pain with injecitons; ph Obesity; 09:32 Diabetes - IDDM; CHF; Hyperlipidemia; Hypertension; lower back pain with injecitons; ph Obesity; - PSHx: 09:37 addenoidectomy; rhinoplasty; ph 09:32 addenoidectomy; rhinoplasty; ph - Immunization history:: Adult Immunizations up to date. - Social history:: Smoking status: Patient denies any tobacco usage or history of. ROS: 09:40 Abdomen/GI: Negative for abdominal pain, nausea, vomiting, diarrhea, and constipation, pm1 Back: Negative for injury and pain, MS/Extremity: Negative for injury and deformity, Skin: Negative for injury, rash, and discoloration, Neuro: Negative for headache, weakness, numbness, tingling, and seizure. 09:40 Constitutional: Positive for fever, Negative for poor PO intake. 09:40 Cardiovascular: Positive for chest pain, of the anterior aspect of left upper chest and anterior aspect of right upper chest, Negative for edema, palpitations. 09:40 Respiratory: Positive for cough, shortness of breath. 09:40 All other systems are negative. Exam: 09:40 Constitutional: This is a well developed, well nourished patient who is awake, alert, pm1 and in no acute distress. Head/Face: Normocephalic, atraumatic. 09:40 Skin: Warm, dry with normal turgor. Normal color with no rashes, no lesions, and no evidence of cellulitis. MS/ Extremity: Pulses equal, no cyanosis. Neurovascular intact. Full, normal range of motion. 09:40 Cardiovascular: Exam negative for acute changes, Rate: normal, Rhythm: regular, Pulses: no pulse deficits are appreciated, Heart sounds: normal. 09:40 Respiratory: the patient does not display signs of respiratory distress, Respirations: tachypnea, that is mild, Breath sounds: + upper airway congestion. 09:40 Abdomen/GI: Inspection: obese Palpation: abdomen is soft and non-tender, in all quadrants. 09:40 Neuro: Exam negative for acute changes, Orientation: is normal, Mentation: is normal, Motor: is normal, moves all fours. Vital Signs: 09:35 BP 151 / 72; Pulse 74; Resp 24; Temp 101.3; Pulse Ox 98% on R/A; Weight 148.32 kg; ph Height 5 ft. 9 in. (175.26 cm); Pain 8/10; 10:52 BP 139 / 42; Pulse 86; Resp 22; Temp 101; Pulse Ox 100% on Nebulizer Mask; ph 12:00 BP 128 / 64; Pulse 95; Resp 22; Pulse Ox 97% on R/A; ph 12:44 BP 117 / 77; Pulse 91; Resp 22; Temp 99.0(O); Pulse Ox 98% on R/A; ph 09:35 Body Mass Index 48.29 (148.32 kg, 175.26 cm) ph MDM: 09:34 Patient medically screened. pm1 09:50 ED course: Patient with history of CHF and lymphedema. Patient blood pressure elevated pm1 and heart rate wnls. Due to his history and decreased breath sounds at the bases will not give the patient septic bolus. Will give breathing treatments and reevaluate. 12:17 Data reviewed: vital signs. Data interpreted: Pulse oximetry: on room air is 97 %. pm1 Interpretation: normal. 12:17 Counseling: I had a detailed discussion with the patient and/or guardian regarding: the pm1 historical points, exam findings, and any diagnostic results supporting the discharge/admit diagnosis, lab results, radiology results, the need for outpatient follow up, to return to the emergency department if symptoms worsen or persist or if there are any questions or concerns that arise at home. 11/23 09:38 Order name: Basic Metabolic Panel; Complete Time: 10:47 pm1 11/23 09:38 Order name: CBC with Diff; Complete Time: 10:47 pm1 11/23 09:38 Order name: LFT's; Complete Time: 10:47 pm1 11/23 09:38 Order name: Magnesium; Complete Time: 10:47 pm1 11/23 09:38 Order name: NT PRO-BNP; Complete Time: 10:47 pm1 11/23 09:38 Order name: PT-INR; Complete Time: 10:47 pm1 11/23 09:38 Order name: Troponin HS; Complete Time: 10:47 pm11/23 09:38 Order name: XRAY Chest (1 view); Complete Time: 10:16 pm1 11/23 09:38 Order name: COVID-19 SARS RT PCR (Document "Date of Onset" if Symptomatic); Complete pm1 Time: 11:29 11/23 09:38 Order name: Flu; Complete Time: 10:47 pm11/23 09:38 Order name: Strep; Complete Time: 10:47 pm1 11/23 09:46 Order name: Lactate; Complete Time: 11:29 pm1 11/23 09:50 Order name: Blood Culture Adult (2) pm1 11/23 10:34 Order name: Throat Culture EDMS 11/23 09:38 Order name: EKG; Complete Time: 09:39 pm1 11/23 09:38 Order name: Cardiac monitoring; Complete Time: 10:07 pm1 11/23 09:38 Order name: EKG - Nurse/Tech; Complete Time: 11:05 pm1 11/23 09:38 Order name: IV Saline Lock; Complete Time: 10:07 pm1 11/23 09:38 Order name: Labs collected and sent; Complete Time: 10:07 pm1 11/23 09:38 Order name: O2 Per Protocol; Complete Time: 09:40 pm1 11/23 09:38 Order name: O2 Sat Monitoring; Complete Time: 09:40 pm1 Administered Medications: 10:28 Drug: Albuterol - atroVENT (ipratropium) (3:1) (2.5 mg - 0.5 mg) 3 ml Route: Nebulizer; ph 12:45 Follow up: Response: No adverse reaction ph 10:28 Drug: Tussionex Pennkinetic ER (chlorpheniramine-hydrocodone) Suspension 5 ml Route: PO;ph 12:45 Follow up: Response: No adverse reaction ph 10:37 Drug: Ibuprofen 800 mg Route: PO; ph 12:45 Follow up: Response: No adverse reaction; Temperature is decreased ph Disposition: 16:21 Co-signature as Attending Physician, Dakotah Gandhi MD I agree with the assessment and kdr plan of care. Disposition Summary: 11/23/21 12:20 Discharge Ordered Location: Home pm1 Problem: new pm1 Symptoms: have improved pm1 Condition: Stable pm1 Diagnosis - Coronavirus infection, unspecified pm1 Followup: pm1 - With: Emergency Department - When: As needed - Reason: Worsening of condition Followup: pm1 - With: Private Physician - When: 2 - 3 days - Reason: Recheck today's complaints, Continuance of care, Re-evaluation by your physician Discharge Instructions: - Discharge Summary Sheet pm1 - COVID-19 pm1 - COVID-19 Frequently Asked Questions pm1 - 10 Things You Can Do to Manage Your COVID-19 Symptoms at Home - [facility] pm1 - COVID-19: Quarantine vs. Isolation - [facility] pm1 Forms: - Medication Reconciliation Form pm1 - Thank You Letter pm1 - Antibiotic Education pm1 - Prescription Opioid Use pm1 - Work release form Prescriptions: - Ventolin HFA 90 mcg/actuation Inhalation HFA aerosol inhaler - inhale 1 puff by INHALATION route every 4-6 hours As needed; 1 Inhaler; pm1 Refills: 0, Product Selection Permitted - Guaifenesin AC 10-100 mg/5 mL Oral Liquid - take 10 milliliters by ORAL route every 4 hours As needed; 240 milliliter; pm1 Refills: 0, Product Selection Permitted Signatures: Dispatcher [employer] Dakotah Gomez MD MD kdr Hall, Patricia, RN RN ph Zack Anderson, KENYA PLACEMENT COORDINATOR pm1 Corrections: (The following items were deleted from the chart) 11/24 08:17 11/23 09:40 . pm1 pm1
[2021-11-23 13:05] VITALS: BP 117/77; TEMP 99; O2SAT 98
--- NOTE | 2021-11-27 08:06 | EKG ---
Test Date: 2021-11-23 Test Time: 10:16:23 Brake Specialist: PH MEASUREMENT RESULTS: Intervals: Rate: 80 IA: 142 QRSD: 104 QT: 364 QTc: 419 [place]: P: 39 IA: 142 QRS: 83 T: 58 INTERPRETIVE STATEMENTS: Normal sinus rhythm Incomplete right bundle branch block Cannot rule out Anterior infarct, age undetermined Abnormal ECG Compared to ECG 10/02/2021 18:46:58 Incomplete right bundle-branch block now present Sinus tachycardia no longer present Myocardial infarct finding still present Electronically Signed On 11-27-21 07:56:36 CDT by Ifeanyi Blood
== END 2021-11-23 12:48 | disposition home or self-care (01) ==
LOC: ER 09:25
DX: U07.1 COVID-19 (principal); E11.9 Type 2 diabetes mellitus without complications; I50.9 Heart failure, unspecified; I10 Essential (primary) hypertension; E66.9 Obesity, unspecified; Z68.42 Body mass index [BMI] 45.0-49.9, adult; Z79.4 Long term (current) use of insulin; Z88.8 Allergy status to other drugs, medicaments and biological substances
CPT/HCPCS: 87040 ×2; 87070; 85025; 80048; 36415; 83735; 85610; 80076; 87081; 83605; 84484; 83880; 87804 ×2; 71045; 94640; 99285; U0003; 93005

== ENCOUNTER 2021-12-24 14:26 | Emergency (ER) | payer OTHER ==
--- OUTSIDE RECORDS SUMMARY | 2021-12-24 14:31 | XMS REPORT | Continuity of Care Document ---
:1965 Author Organization [facility] t Address [address] [place] [address] Care Team Providers Name Role Phone Hope Barraza Primary Care Physician GC_EDEC_Hayes_A Attending Clinician Unavailable Ellen Pantoja Attending Clinician [phone] PAUL SLOAN Attending Clinician Unavailable Nurse, Adc Pob Immunization Attending Clinician Unavailable Paul Sloan DO Attending Clinician JAZMIN SARMIENTO Attending Clinician Unavailable Neel Garcia Attending Clinician Unavailable CHINO HEALY Attending Clinician Unavailable Only, Adc Test Attending Clinician Unavailable Doctor Unassigned, Amado Attending Clinician Unavailable Anupam Atkins MD Attending Clinician MADI FAITH Attending Clinician Unavailable TAMMY BETANCOURT Attending Clinician Unavailable GC_EDEC_Hayes_A Admitting Clinician Unavailable HOPE BARRAZA Admitting Clinician Unavailable MADI FAITH Admitting Clinician Unavailable TAMMY BETANCOURT Admitting Clinician Unavailable Payers Payer Name Policy Type Policy Number Effective Date Expiration Date Darryl BARRIOS (POS) [id number] 2021 00:00:00 [employer] [place] - [id number] 2019 00:00:00 OUT OF STATE BLUE CROSS-MI: [id number] [facility] BLUE CROSS (PPO) Problems Condition Condition Condition [...] dical of of Branch 40.0-49.9 40.0-49.9 LUMBAR LUMBAR Diagnosis Active 2016-052017-04-29 Me moria STENOSIS STENOSIS -14 09:02:00 l Active 00:00: Mitesh 04/08/2017 00 [facility] M54.16 M54.16 Diagnosis Active 2016-052017-03-19 Me moria Active 0 10:29:00 l 03/19/2017 00:00: Gabo thomas [address] Abdominal Abdominal Problem Resolve 2017-12-07 Memoria pain pain d 00:03:51 l (finding) (finding) Nikos whatley Resolved Problem 12/07/2017 [facility] Chest pain Chest Problem Resolve 2017-12-07 Memoria (finding) pain d 00:03:51 l (finding) Mitesh Resolved Problem 12/07/2017 [facility] Chronic Chronic Problem Resolve 2017-12-07 M emoria back pain back pain d 00:03:51 l (disorder) (disorder) He shahnaz Resolved Problem 12/07/2017 [facility] Diabetes Diabetes Problem Active 2017-12-07 Memoria mellitus mellitus 00:03:51 l (disorder) (disorder) He shahnaz Active Problem 12/07/2017 [facility] Hyperchole Hyperchol Problem Active 2017-12-07 Memoria sterolemia esterolemi 00:03:51 l (disorder) eyad Knottan n (disorder) Active Problem 12/07/2017 [facility] Hypertensi Hypertens Problem Active 2017-12-07 Memoria ve liliana 00:03:51 l disorder, disorder, Herm chacorta systemic systemic arterial arterial (disorder) (disorder) Active Problem 12/07/2017 [facility] Morbid Morbid Problem Active 2017-12-07 Chuck jack obesity obesity 00:03:51 l (disorder) (disorder) He rmann Active Problem 12/07/2017 [facility] Prolapsed Prolapsed Problem Active 2017-12-07 Memoria lumbar lumbar 00:03:51 l interverte interverte He rmann bral disc bral disc (disorder) (disorder) Active Problem 12/07/2017 [facility] Allergies, Adverse Reactions, Alerts Allergy Allergy Status Severity Reaction(s) Onset Inactive Treating Comm ents Source Name Type Date Date Clinician No Known DA Active U 2020-0 [facility] All[facility]ie 02-01 [facility] 00:00: [facility] 00 [facility] No Known DA Active U 2020-0 [facility] Allergie 02-01 [place] [facility] 00:[facility]: [facility] 00 [facility] NO KNOWN Drug Active Univers ALLERGIE Class ity of S [facility] Social History Social Habit Start Date Stop Date Quantity Comments Source Alcohol intake 2018-07-21 2018-07-21 Current University 00:00:00 00:00:00 non-drinker of [facility] alcohol Branch (finding) Tobacco use and 2018-04-09 2018-04-09 Never used Universit y of exposure 00:00:00 00:00:00 [facility] Sex [birth year] Universit y of 00:00:00 00:00:00 [facility] Smoking Status Start Date Stop Date Source Never smoker [facility] Social History 2017-04-29 16:58:10 2017-04-29 16:58:10 [facility] Medications Ordered Filled Start Stop Current Ordering Indication Dosage Frequency Signature Comments Components Source Medication Medication Date Date Medication? Clinician (SIG) Name Name insulin 2018-05 Yes [id number] 60U inject 60 Univers regular 0-24 Units ity of human 500 00:00: under the Varinder as unit/mL 00 skin 3 Medical injection (three) Branch times daily before meals. E11. 65 Insulin 2018-0 Yes Each 3 Univers Syringe-Nee 7-03 (three) ity o f dle U-100 1 00:00: times [place] mL 31 gauge 00 daily Medical x 10/08 Syrg before Branch meals. E11 insulin Yes [id number] 1{each} 1 Each 3 Univers U-500 5-28 (three) ity of syringe-nee 00:00: times [place] dle 1/2 mL 00 daily Medical 31 gauge x before Branch " Syrg meals. E11 metformin Yes [id number] 1000mg Take 2 Univers ER 500 mg 5-28 tablets by ity of 24 hr 00:00: mouth 2 [place] tablet 00 (two) Medical times Branch daily with meals. glimepiride Yes [id number] 4mg Take 1 Univers 4 mg tablet 5-28 tablet by ity of 00:00: mouth 2 [place] 00 (two) Medical times [place] daily with meals. pravastatin Yes [id number] 20mg Take 1 Univers 20 mg 5-28 tablet by ity of tablet 00:00: mouth at [place] 00 bedtime. Medical Branch metoprolol Yes 50mg Take 50 mg U nivers tartrate 50 2-01 by mouth 2 it y of mg tablet 17:31: (two) [place] [address] times [facility] daily. Branch lisinopril Yes 40mg Take 40 mg U nivers 40 mg 2-01 by mouth ity of tablet 17:31: daily. [address] Branch amLODIPine Yes 5mg Take 5 mg Un bria 5 mg tablet 2-01 by mouth ity of 17:31: daily. [place] [address] Medical Branch traMADOL 50 Yes [id number] 50mg Take 1 Univers mg tablet 2-01 [id number] tablet by ity of 00:00: mouth 2 [place] 00 (two) Medical times [place] daily as needed for Pain (scale 4-6) or Pain (scale 7-10). hydroCHLORO 2017-05 Yes [id number] 25mg Take 1 Univers thiazide 25 2-14 tablet by ity of mg tablet 00:00: mouth [place] 00 daily. Medical Branch exenatide 2017-05 Yes [id number] 2mg inject 2 Univers microsphere 1-14 mg [...] , # 150 tab, 2 Refill(s), Pharmacy: [facility] diclofenac 2016-05 Yes 75 mg = 1 Me moria sodium 75 2-01 tab, PO, l mg oral 14:52: BID, PRN Gabo n enteric 00 Pain Score coated, 7-10, # 60 delayed-rel tab, 2 ease tablet Refill(s), Pharmacy: [facility] Cyclobenzap 2016-05 Yes 10 mg = 1 M emoria rine 2-01 tab, PO, l hydrochlori 14:52: BID, # 60 H ermann de 10 MG 00 tab, 2 Oral Tablet Refill(s), [Flexeril] Pharmacy: [facility] Sodium 2016-05 Yes 4.2 mL, Memoria Chloride 06-26 Route: l 14:50: EPIDURAL, Mitesh 00 Dosing Weight 141.364, kg, ONCE, (Preservat liliana Free), Start date: 04/25/17 8:50:00 SOFTWARE DESIGN ENGINEER, Stop date: 04/25/17 8:50:00 SOFTWARE DESIGN ENGINEER Lidocaine 2016-05 Yes 3 mL, Memoria Hydrochlori 06-26 Route: l de 10 MG/ML 14:50: SUB-Q, Herm chacorta Injectable 00 Dosing Solution Weight 141.364, kg, ONCE, (Preservat liliana Free), Start date: 04/25/17 8:50:00 SOFTWARE DESIGN ENGINEER, Stop date: 04/25/17 8:50:00 SOFTWARE DESIGN ENGINEER Omnipaque 2016-05 Yes 2 mL, Memoria 300 2 Route: l 14:50: EPIDURAL, Mitesh 00 Dosing Weight 141.364, kg, ONCE, (Preservat liliana Free), Start date: 04/25/17 8:50:00 SOFTWARE DESIGN ENGINEER, Stop date: 04/25/17 8:50:00 SOFTWARE DESIGN ENGINEER Dexamethaso 2016-05 Yes 8 mg, Memor ia ne 2 Route: l 14:50: EPIDURAL, [place] 00 ONCE, Dosing Weight 141.364, kg, (Preservat liliana Free), Start date: 04/25/17 8:50:00 SOFTWARE DESIGN ENGINEER, Stop date: 04/25/17 8:50:00 SOFTWARE DESIGN ENGINEER Bupivacaine 2017- Yes 2 mL, Memor ia Hydrochlori 06-26 Route: l de 2.5 14:50: EPIDURAL, Gabo n MG/ML 00 Dosing Injectable Weight Solution 141.364, kg, ONCE, (Preservat liliana Free), Start date: 04/25/17 8:50:00 SOFTWARE DESIGN ENGINEER, Stop date: 04/25/17 8:50:00 SOFTWARE DESIGN ENGINEER Immunizations Ordered Filled Immunization Date Status Comments [facility] e Immunization Name Name SARS-COV-2 COVID-19 2021-04-12 Completed Unive rsity of PFIZER VACCINE 00:00:00 [facility] SARS-COV-2 COVID-19 2020-08-24 Completed Unive rsity of PFIZER VACCINE 00:00:00 [facility] SARS-COV-2 COVID-19 2020-08-03 Completed Unive rsity of PFIZER VACCINE 00:00:00 [facility] Influenza Virus 2018-06-26 Completed Universit y of Vaccine Quad .5 mL 00:00:00 [facility] 6+ MO Branch Vital Signs Vital Name Observation Time Observation Value Comments Source Height 2017-06-05 17:46:00 177.8 cm [facility] [place] Weight 2017-06-05 17:46:00 [facility] [place] BMI Calculated 2017-06-05 17:46:00 Memori al [place] Systolic (mm Hg) 2017-06-05 17:46:00 Chuck rial Mitesh Diastolic (mm Hg) 2017-06-05 17:46:00 Mem orial Mitesh Temperature Oral (F) 2017-06-05 17:46:00 99.3 F [facility] [place] Heart Rate 2017-06-05 17:46:00 [facility] [place] BMI Calculated 2017-04-29 15:23:00 Memori al [place] Weight 2017-04-29 15:23:00 Memorial Mitesh Height 2017-04-29 15:23:00 177.8 cm [facility] Mitesh Heart Rate 2017-04-29 15:00:00 [facility] Mitesh Respitory Rate 2017-04-29 15:00:00 Memori al [place] Systolic (mm Hg) 2017-04-29 15:00:00 Chuck rial Mitesh Diastolic (mm Hg) 2017-04-29 15:00:00 Mem orial Mitesh Procedures Procedure Date / Time Performing Clinician Source Performed SARS-COV-2 COVID-19 2021-04-12 22:54:16 Doctor Unassigned, No Un [facility] [place] VACCINE,0.3ML,IM Name [facility] Branch ([employer]) Myelography via lumbar 2017-04-29 16:14:00 Memor ial Mitesh injection, including radiological supervision and interpretation; thoracic Myelography via lumbar 2017-04-29 16:14:00 Memor ial [place] injection, including radiological supervision and interpretation; lumbosacral NJX INTERLAMINAR 2017-04-25 14:50:00 [facility] Ear operations [facility] Mitesh Lumbar epidural [facility] Mitesh injection Lumbar epidural steroid [facility] Mitesh injection Nose operation [facility] Mitesh Operation [facility] [place] Encounters Start End Encounter Admission Attending Care Care Encounter Source Date/Time Date/Time Type Type Clinicians Facility Department ID 2021-09-24 2021-09-24 Outpatient GC_EDEC_Hay PRIV PRIV [id number] [facility] 11:24:00 11:24:00 es_A [id number] Medica l 2021-09-24 2021-09-24 Outpatient Kit [facility] PRIV [id number] 00:00:00 00:00:00 Ellen [id number] Evon [id number] 2021-09-20 2021-09-20 Outpatient GC_EDEC_Hay PRIV PRIV [id number] [facility] 03:44:00 03:44:00 es_A [id number] Medica l 2021-04-12 2021-04-12 Outpatient Florencio SLOAN [facility] [id number] Univers 16:30:00 16:30:00 PAUL simon [facility] 2021-04-12 2021-04-12 Imm/Inj Nurse, Adc Pob Immunization [facility] [id number] Univers 16:14:33 16:14:42 Visit Paul Sloan 350.1.13 .10 [facility] 4.2.7.2.686 Elizabeth BENJAMIN [id number] Ny dical [address] 2021-01-16 2021-01-16 Outpatient GC_EDEC_Hay PRIV PRIV [id number] [facility] 07:11:00 07:11:00 es_A [id number] Medica l 2020-09-25 2020-09-25 Outpatient GC_EDEC_Hay PRIV PRIV [id number] [facility] 02:20:00 02:20:00 es_A [id number] Medica l 2020-09-19 2020-09-19 Outpatient GC_EDEC_Hay PRIV PRIV [id number] [facility] 02:41:00 02:41:00 es_A [id number] Medica l 2020-09-13 2020-09-13 Outpatient GC_EDEC_Hay PRIV PRIV [id number] [facility] 06:01:00 06:01:00 es_A [id number] Medica l 2020-09-13 2020-09-13 Outpatient Pantoja, PRIV PRIV [id number] 00:00:00 00:00:00 Ellen [id number] [facility] [id number] 2020-09-11 2020-09-11 Outpatient GC_EDEC_Hay PRIV PRIV [id number] [facility] 12:06:00 12:06:00 es_A [id number] Medica l 2020-09-06 2020-09-06 Outpatient GC_EDEC_Hay PRIV PRIV [id number] [facility] 06:40:00 06:40:00 es_A [id number] Medica l 2020-08-24 2020-08-24 Outpatient Florencio SARMIENTO [facility] [id number] Univers 14:40:00 14:40:00 [facility] 2020-08-03 Outpatient [facility] [id number] Univers 14:40:00 14:40:00 [facility] 2020-02-08 2020-02-08 Inpatient PILI Garcia [facility] DA[facility] [id number] [facility] 08:00:00 08:00:00 [facility] 2020-02-02 2020-02-02 Outpatient CHINO MASON [facility] [id number] Univers 11:30:00 11:30:00 ity [facility] 2020-02-02 2020-02-02 Outpatient R [facility] [id number] Univers 11:30:00 11:30:00 [facility] 2020-02-02 2020-02-02 Laboratory Only, Adc [facility] [id number] 11:14:48 11:29:48 Only Test [place] 350.1.13.10 [place] 4.2.7.2.686 [place] [id number] 2020-02-02 2020-02-02 Orders Doctor DULCE [id number] 00:00:00 00:00:00 Only Unassigned, KIMBERLY 350.1.13.10 Amado [facility] 4.2.7.2.686 [id number] 2020-01-05 2020-01-05 Telephone Atkins, [facility] [id number] 00:00:00 00:00:00 Wentong [place] 350.1.13.10 [place] 4.2.7.2.686 Professio [id number] [address] 2019-06-16 2019-06-16 [facility] [id number] 00:00:00 00:00:00 Wentong [place] 350.1.13.10 [place] 4.2.7.2.686 Professio [id number] [address] 2019-06-09 2019-06-09 Telephone Atkins, [facility] [id number] 00:00:00 00:00:00 Wentong [place] 350.1.13.10 [place] 4.2.7.2.686 Professio [id number] [address] 2019-02-10 2019-02-10 Telephone Atkins, [facility] [id number] 00:00:00 00:00:00 Wentong [place] 350.1.13.10 [place] 4.2.7.2.686 Professio [id number] [address] 2018-12-13 2018-12-13 Orders Doctor [place]ARD[place] [id number] 00:00:00 00:00:00 Only Unassigned, KIMBERLY 350.1.13.10 Amado [place] [id number] 2018-11-27 2018-11-27 Refill Wilbert, [place] [id number] 00:00:00 00:00:00 Anupam Robert 350.1.13.10 [place] 4.2.7.2.686 Hayley [id number] [address] 2017-12-04 2017-12-04 Ambulatory nullFlavo [facility] [id number] Memoria 15:30:00 15:30:00 Pre-Reg r Clinic TM 07 [facility] 2017-06-06 2017-06-08 Phone nullFlavo [facility] [id number] Memoria 20:31:00 05:59:59 Message r Clinic [facility] 09 [facility] 2017-06-05 2017-06-06 Outpatient nullFlavo [facility] [id number] Memoria 17:30:00 05:59:59 r Clinic TM 05 [facility] 2017-04-30 2017-05-02 Phone nullFlavo [facility] [id number] Memoria 17:52:00 05:59:59 Message r Clinic TM 08 [facility] 2017-04-29 2017-04-30 Outpatient nullFlavo [facility] [id number] Memoria 14:20:00 05:59:00 r [place] 00 [facility] 2017-04-25 2017-04-26 Outpatient nullFlavo [facility] [id number] Memoria 14:00:00 05:59:59 r Clinic TM 06 [facility] 2017-04-24 2017-04-26 Phone nullFlavo [facility] [id number] Memoria 22:30:00 05:59:59 Message r Clinic [address] 2017-04-24 2017-04-26 Phone nullFlavo [facility] [id number] Memoria 22:27:00 05:59:59 Message r Clinic TM 06 [facility] 2017-04-04 2017-04-04 Outpatient MHIE MHIE [id number] Memoria 13:00:00 13:00:[address] [place] [address] 2017-03-19 2017-03-20 Outpatient fahadFlavo [facility] [id number] Memoria 15:22:00 04:59:00 florencio Sagastume 98 l [facility] 2017-03-19 2017-03-19 Outpatient AMPARO CHRISTENSEN [id number] Memoria 08:45:00 08:45:00 03 [facility] 2017-03-19 2017-03-19 Outpatient AMPARO CHRISTENSEN [id number] Memoria 07:45:00 07:45:00 02 [facility] 2016-09-04 2016-09-04 Outpatient IE AMPARO [id number] Memoria 07:45:00 07:45:00 01 [facility] 2016-08-19 2016-08-19 Outpatient JESS JESS [id number] Memoria 10:30:00 10:30:00 00 marga K[place]ock Results Test Description Test Time Test Comments Results Result Comments Source GLUBED 2020-02-08 15:58:00 Test Item Value Reference Range Interpretation Comme nts GLUBED (test code = GLUBED) 147 MG/DL 70-105 H [id number] 16:42:00 Test Item Value Reference Range Interpretation Comments PTT (test code = PTT) 29.4 s 22.9-35.8 [id number] 16:42:00 Test Item Value Reference Range Interpretation Comments PT (test code = PT) 12.8 s 12.0-14.7 [id number] 16:42:00 Test Item Value Reference Range Interpretation Comments INR (test code = INR) 0.96 0.85-1.17 [facility]2017-12-05 15:26:00 Test Item Value Reference Range Interpretation Comments eGFR (test code = eGFR) 95 [facility]2017-12-05 15:26:00 Test Item Value Reference Range Interpretation Comments Creatinine Lvl (test code = Creatinine 0.92 0.50-1.40 Lvl) [facility]2017-12-05 15:26:00 Test Item Value Reference Range Interpretation Comments BUN (test code = BUN) 21 - [id number] 15:26:00 Test Item Value Reference Range Interpretation Comments MCV (test code = MCV) 84.7 80.0-94.0 [id number] 15:26:00 Test Item Value Reference Range Interpretation Comments Hct (test code = Hct) 41.3 42.0-54.0 [id number] 15:26:00 Test Item Value Reference Range Interpretation Comments MCH (test code = MCH) 27.9 pg 27.0-31.0 [id number] 15:26:00 Test Item Value Reference Range Interpretation Comments MCHC (test code = MCHC) 32.9 32.0-36.0 [id number] 15:26:00 Test Item Value Reference Range Interpretation Comments WBC (test code = WBC) 7.2 3.7-10.4 [id number] 15:26:00 Test Item Value Reference Range Interpretation Comments RBC (test code = RBC) 4.87 4.70-6.10 [id number] 15:26:00 Test Item Value Reference Range Interpretation Comments Hgb (test code = Hgb) 13.6 14.0-18.0 [id number] 15:26:00 Test Item Value Reference Range Interpretation Comments RDW (test code = RDW) 16.1 11.5-14.5 [id number] 15:26:00 Test Item Value Reference Range Interpretation Comments Platelet (test code = Platelet) 239 133-450 [id number] 15:26:00 Test Item Value Reference Range Interpretation Comments MPV (test code = MPV) 8.0 7.4-10.4 [place] [id number] 05:57:00 Test Item Value Reference Range Interpretation [...] , each yielding differ ent values. This co rrected result was base d on the formula: Co rrected Calcium = Serum Calcium + [0.8 * ( 4 - SerumAlbumin)] EGFR if >60 [place] (test code mL/min/1.73m\\ = EGFRAA) S\\2 EGFR if Non- >60 Estimate d Glomerular [place] (test code mL/min/1.73m\\ Filtrat ion Rate (eGFR) = EGFRNA) S\\2 Reference Inter vals Decision Points for 18 years and older and average body ma ss: >= 60 Does not ex clude kidney disease. 30 - 59 Suggests mod erate chronic kidney disease and indicates t he need for further investigation including asses sment of proteinuria and cardiovascular factors. < 30 U sually indicates a nee d for referral for assessment and management of c hronic kidney failure. CBC WITH AUTO [id number] 05:42:00 Test Item Value Reference Range Interpretation [...] code = 1.0 % 0.0-0.4 H IG%) [id number] 05:53:00 Test Item Value Reference Range Interpretation [...] , each yielding differ ent values. This co rrected result was base d on the formula: Co rrected Calcium = Serum Calcium + [0.8 * ( 4 - SerumAlbumin)] EGFR if >60 [place] (test code mL/min/1.73m\\ = EGFRAA) S\\2 EGFR if Non- >60 Estimate d Glomerular [place] (test code mL/min/1.73m\\ Filtrat ion Rate (eGFR) = EGFRNA) S\\2 Reference Inter vals Decision Points for 18 years and older and average body ma ss: >= 60 Does not exc lude kidney disease. 30 - 59 Suggests mod erate chronic kidney disease and indicates t he need for further investigation including asses sment of proteinuria and cardiovascular factors. < 30 U sually indicates a nee d for referral for assessment and management of c hronic kidney failure. CBC WITH AUTO [id number] 05:27:00 Test Item Value Reference Range Interpretation [...] code = 1.7 % 0.0-0.4 H IG%) [id number] 04:36:00 Test Item Value Reference Range Interpretation [...] , each yielding differ ent values. This co rrected result was base d on the formula: Co rrected Calcium = Serum Calcium + [0.8 * ( 4 - SerumAlbumin)] EGFR if >60 [place] (test code mL/min/1.73m\\ = EGFRAA) S\\2 EGFR if Non- >60 Estimate d Glomerular [place] (test code mL/min/1.73m\\ Filtrat ion Rate (eGFR) = EGFRNA) S\\2 Reference Inter vals Decision Points for 18 years and older and average body ma ss: >= 60 Does not exc lude kidney disease. 30 - 59 Suggests mod erate chronic kidney disease and indicates t he need for further investigation including asses sment of proteinuria and cardiovascular factors. < 30 U sually indicates a nee d for referral for assessment and management of c hronic kidney failure. CBC WITH AUTO [id number] 04:14:00 Test Item Value Reference Range Interpretation [...] code = 1.9 % 0.0-0.4 H IG%) [id number] 04:40:00 Test Item Value Reference Range Interpretation [...] , each yielding differ ent values. This co rrected result was base d on the formula: Co rrected Calcium = Serum Calcium + [0.8 * ( 4 - SerumAlbumin)] EGFR if >60 [place] (test code mL/min/1.73m\\ = EGFRAA) S\\2 EGFR if Non- >60 Estimate d Glomerular [place] (test code mL/min/1.73m\\ Filtrat ion Rate (eGFR) = EGFRNA) S\\2 Reference Inter vals Decision Points for 18 years and older and average body ma ss: >= 60 Does not exc lude kidney disease. 30 - 59 Suggests mo derate chronic kidney disease and indicates t he need for further investigation including asses sment of proteinuria and cardiovascular factors. < 30 U sually indicates a nee d for referral for assessment and management of c hronic kidney failure. CBC WITH AUTO [id number] 04:09:00 Test Item Value Reference Range Interpretation [...] = 2.4 % 0.0-0.4 H IG%) CULTURE, [id number] 06:50:00To start 15mins after 1st cultureSpecimen: BloodCollected: 01/18/2017 04:05 Status: Final Last Updated: 01/23/2017 06:49 (1) To [id number] after 1st culture Culture Result (Final) (Final) No Growth After 5 DaysCULTURE, [id number] 06:50:00Specimen: BloodCollected: 01/18/2017 03:55 Status: Final Last Updated: 01/23/2017 06:49 Culture Result (Final) (Final) No Growth After 5 DaysCBC WITH AUTO [id number] 04:31:00 Test Item Value Reference Range Interpretation [...] code = 3.4 % 0.0-0.4 H IG%) [id number] 04:19:00 Test Item Value Reference Range Interpretation [...] , each yielding differ ent values. This co rrected result was base d on the formula: Co rrected Calcium = Serum Calcium + [0.8 * ( 4 - SerumAlbumin)] EGFR if >60 [place] (test code mL/min/1.73m\\ = EGFRAA) S\\2 EGFR if Non- >60 Estimate d Glomerular [place] (test code mL/min/1.73m\\ Filtrat ion Rate (eGFR) = EGFRNA) S\\2 Reference Inter vals Decision Points for 18 years and older and average body ma ss: >= 60 Does not exc lude kidney disease. 30 - 59 Suggests mo derate chronic kidney disease and indicates t he need for further investigation including asses sment of proteinuria and cardiovascular factors. < 30 U sually indicates a nee d for referral for assessment and management of c hronic kidney failure. CBC WITH AUTO [id number] 04:57:00 Test Item Value Reference Range Interpretation [...] 4.0 % 0.0-0.4 H IG%) CBC AUTO [id number] 04:35:00 Test Item Value Reference Range Interpretation [...] , each yielding differ ent values. This co rrected result was base d on the formula: Co rrected Calcium = Serum Calcium + [0.8 * ( 4 - SerumAlbumin)] EGFR if >60 [place] (test code mL/min/1.73m\\ = EGFRAA) S\\2 EGFR if Non- >60 Estimate d Glomerular [place] (test code mL/min/1.73m\\ Filtrat ion Rate (eGFR) = EGFRNA) S\\2 Reference Inter vals Decision Points for 18 years and older and average body ma ss: >= 60 Does not exc lude kidney disease. 30 - 59 Suggests mod erate chronic kidney disease and indicates t he need for further investigation including asses sment of proteinuria and cardiovascular factors. < 30 U sually indicates a nee d for referral for assessment and management of c hronic kidney failure. CBC WITH AUTO [id number] 05:01:00 Test Item Value Reference Range Interpretation [...] 4.5 % 0.0-0.4 H IG%) CBC AUTO [id number] 04:56:00 Test Item Value Reference Range Interpretation [...] , each yielding differ ent values. This co rrected result was base d on the formula: Co rrected Calcium = Serum Calcium + [0.8 * ( 4 - SerumAlbumin)] EGFR if >60 [place] (test code mL/min/1.73m\\ = EGFRAA) S\\2 EGFR if Non- >60 Estimate d Glomerular [place] (test code mL/min/1.73m\\ Filtrat ion Rate (eGFR) = EGFRNA) S\\2 Reference Inter vals Decision Points for 18 years and older and average body ma ss: >= 60 Does not exc lude kidney disease. 30 - 59 Suggests mod erate chronic kidney disease and indicates t he need for further investigation including asses sment of proteinuria and cardiovascular factors. < 30 U sually indicates a nee d for referral for assessment and management of c hronic kidney failure. CBC WITH AUTO [id number] 05:57:00 Test Item Value Reference Range Interpretation [...] code = 4.8 % 0.0-0.4 H IG%) [id number] 05:41:00 Test Item Value Reference Range Interpretation Comments Magnesium (test code = MG) 2.0 mg/dl 1.6-2.3 [id number] 05:41:00 Test Item Value Reference Range Interpretation [...] , each yielding differ ent values. This co rrected result was base d on the formula: Co rrected Calcium = Serum Calcium + [0.8 * ( 4 - SerumAlbumin)] EGFR if >60 [place] (test code mL/min/1.73m\\ = EGFRAA) S\\2 EGFR if Non- >60 Estimate d Glomerular [place] (test code mL/min/1.73m\\ Filtrat ion Rate (eGFR) = EGFRNA) S\\2 Reference Inter vals Decision Points for 18 years and older and average body ma ss: >= 60 Does not exc lude kidney disease. 30 - 59 Suggests mod erate chronic kidney disease and indicates t he need for further investigation including asses sment of proteinuria and cardiovascular factors. < 30 U sually indicates a nee d for referral for assessment and management of c hronic kidney failure. LACTIC ACID [id number] 06:43:00 Test Item Value Reference Range Interpretation Comments LACTATE (test code = LAC) 0.9 mmol/l 0.7-2.0 GLYCOSALATED [id number] 05:41:00 Test Item Value Reference Range Interpretation Comments Hemoglobin A1C (test 9.06 % 4.3-6.0 A code = GLYCO) Mean Plasma Glucose 245 mg/dl 90-180 WHEN BONIFACIO T RESULTS FOR (test code = MPG) A1C EXCEED 14.0, THE LINEAR LIMIT OF THE INSTRUMENT, THE CALCULATED RESU LT FOR THE MEAN GLUCOS E IS NOT RELIABLE. CORONARY [id number] 05:09:00 Test Item Value Reference Range Interpretation Comments Triglycerides (test 186 mg/dl 0-149 H Trig. In terpretation code = TRIG) Guide: Normal: < 150 mg/dl [place] High: 150 - 199 mg/dl High: 200 - 499 mg/dl Very High: >= 500 mg /dl Cholesterol (test code 146 mg/dl 0-198 = CHOL) HDL (test code = HDL) 24 mg/dl 35-86 L dLDL (test code = 89 mg/dl 0-99 Direct LDL DILDL) Intrepretations : Optimal: <100 m g/dl Suspect: 100 - 129 mg/dl Border[place] e: 130 - 159 mg/dl Hig h: 160 - 189 mg/dl Adrianne y High: >190 mg/dl Risk Factor (test code 6.1 0.0-5.0 H Risk Factor Men Women = RFACT) Risk Factor 3.4 3.3 1/2 Average 5.0 4.4 Average 9.6 7.1 2X Average 24.0 11 .0 3X Average vLDL (test code = 37 mg/dl 30-60 VLDL) [id number] 04:51:00 Test Item Value Reference Range Interpretation Comments Magnesium (test code = MG) 2.1 mg/dl 1.6-2.3 [id number] 04:51:00 Test Item Value Reference Range Interpretation Comments CPK (test code = CPK) 93 U/L 30-135 LIPASE, [id number] 04:43:00 Test Item Value Reference Range Interpretation Comments Lipase (test code = LIPA) 116 U/L 8-223 [id number] 04:43:00 Test Item Value Reference Range Interpretation [...] , each yielding differ ent values. This co rrected result was base d on the formula: Co rrected Calcium = Serum Calcium + [0.8 * ( 4 - SerumAlbumin)] EGFR if >60 [place] (test code mL/min/1.73m\\ = EGFRAA) S\\2 EGFR if Non- >60 Estimate d Glomerular [place] (test code mL/min/1.73m\\ Filtrat ion Rate (eGFR) = EGFRNA) S\\2 Reference Inter vals Decision Points for 18 years and older and average body ma ss: >= 60 Does not exc lude kidney disease. 30 - 59 Suggests mod erate chronic kidney disease and indicates t he need for further investigation including asses sment of proteinuria and cardiovascular factors. < 30 U sually indicates a nee d for referral for assessment and management of c hronic [...]
--- NOTE | 2021-12-24 16:02 | RAD REPORT ---
EXAM DESCRIPTION: RAD - Knee Left 3 View - 12/24/2021 3:34 pm CLINICAL HISTORY: PAIN COMPARISON: No comparisons FINDINGS: Mild osteoarthritis involves the medial joint compartment. No acute fracture or dislocatio n seen. No significant joint effusion evident.
[2021-12-24 17:46] VITALS: BP 140/67; TEMP 97.9; O2SAT 99
--- NOTE | 2021-12-26 09:35 | EDPHYS ---
Physician Documentation [facility] Name: Nicola Harvey Age: 56 yrs Sex: Male : 1965 Arrival Date: 12/24/2021 Time: 14:32 Bed 10 Private MD: ED Physician Asael Bernal HPI: 12/24 16:06 This 56 yrs old Male presents to ER via EMS with complaints of Knee Pain. kb 16:06 The patient presents with decreased range of motion, pain, tenderness. The complaints kb affect the left knee. Context: The problem was sustained at work, resulted from an unknown cause, the patient is not able to bear weight, the patient is not able to ambulate. Onset: The symptoms/episode began/occurred just prior to arrival. Modifying factors: The symptoms are alleviated by nothing. the symptoms are aggravated by movement, weight bearing, bending knee. Associated signs and symptoms: The patient has no apparent associated signs or symptoms. Treatment prior to arrival includes: splinting the affected extremity. Severity of symptoms: At their worst the symptoms were moderate, in the emergency department the symptoms are unchanged. The patient has not experienced similar symptoms in the past. The patient has not recently seen a physician. Patient states he was walking up the stairs at work and felt a pop in his left knee. States he turned around and sat on the steps, did not fall. Denies previous injury to same knee. Reports increased pain when trying to move it or bear weight.. Historical: - Allergies: 14:34 Invokana; blanco 14:34 Jardiance; blanco - Home Meds: 15:54 amlodipine 5 mg tab 1 tab once daily [Active]; Aspirin Oral [Active]; doxazosin Oral ph [Active]; Humulin R 100 unit/mL soln [Active]; hydralazine 100 mg Oral tab 1 tab 3 times per day [Active]; Lasix 40 mg Oral tab 1 tab 2 times per day [Active]; lisinopril Oral [Active]; metformin 1,000 mg Oral tab 1 tab 2 times per day [Active]; Metoprolol Tartrate Oral [Active]; - PMHx: 15:54 CHF; Diabetes - IDDM; Hyperlipidemia; Hypertension; lower back pain with injecitons; ph Obesity; - PSHx: 15:54 addenoidectomy; rhinoplasty; ph - Immunization history:: Adult Immunizations. - Social history:: Smoking status: Patient denies any tobacco usage or history of. ROS: 16:07 Constitutional: Negative for fever, chills, and weight loss. kb 16:07 MS/extremity: Positive for decreased range of motion, pain, tenderness, of the left knee. 16:07 All other systems are negative. Exam: 16:07 Constitutional: This is a well developed, well nourished patient who is awake, alert, kb and in no acute distress. Head/Face: Normocephalic, atraumatic. ENT: Moist Mucous membranes Respiratory: Respirations even and unlabored. No increased work of breathing. Talking in full sentences Skin: Warm, dry with normal turgor. Normal color. Neuro: Awake and alert, GCS 15, oriented to person, place, time, and situation. Moves all extremities. Normal gait. Psych: Awake, alert, with orientation to person, place and time. Behavior, mood, and affect are within normal limits. 16:07 Musculoskeletal/extremity: Extremities: grossly normal except: noted in the left knee: decreased ROM, pain, tenderness, ROM: limited active range of motion due to pain, Circulation is intact in all extremities. Sensation intact. Weight bearing: is unable to bear weight. Vital Signs: 14:33 BP 140 / 67; Pulse 82; Resp 19; Temp 97.9(T); Pulse Ox 99% on R/A; Weight 148.32 kg; blanco Height 5 ft. 9 in. (175.26 cm); 14:33 Body Mass Index 48.29 (148.32 kg, 175.26 cm) blanco MDM: 15:40 Patient medically screened. kb 16:08 Data reviewed: vital signs, nurses notes. Data interpreted: Pulse oximetry: on room air kb is 99 %. Interpretation: normal. Counseling: I had a detailed discussion with the patient and/or guardian regarding: the historical points, exam findings, and any diagnostic results supporting the discharge/admit diagnosis, radiology results, the need for outpatient follow up, a orthopedic surgeon, to return to the emergency department if symptoms worsen or persist or if there are any questions or concerns that arise at home. 12/24 14:38 Order name: Knee Left 3 View XRAY; Complete Time: 16:03 kb 12/24 16:03 Order name: Knee Immobilizer; Complete Time: 16:54 kb 12/24 16:03 Order name: Crutches; Complete Time: 16:54 kb Administered Medications: No medications were administered Disposition: 18:20 Co-signature as Attending Physician, Asael Bernal MD. rn Disposition Summary: 12/24/21 16:11 Discharge Ordered Location: Home kb Condition: Stable kb Diagnosis - Pain in left knee kb Followup: kb - With: Emergency Department - When: As needed - Reason: Worsening of condition Followup: kb - With: Private Physician - When: 2 - 3 days - Reason: Recheck today's complaints, Continuance of care, Re-evaluation by your physician Discharge Instructions: - Discharge Summary Sheet kb - Musculoskeletal Pain kb - Acute Knee Pain, Adult, [id number] kb Forms: - Medication Reconciliation Form kb - Thank You Letter kb - Antibiotic Education kb - Prescription Opioid Use kb Prescriptions: - Diclofenac Sodium 75 mg Oral tablet,delayed release (DR/EC) - take 1 tablet by ORAL route 2 times per day As needed; 30 tablet; Refills: 0, kb Product Selection Permitted Signatures: Dispatcher [employer] EDOsiris Lynne, FOX RAISER-C FOX RAISER-Ckb Asael Bernal MD MD rn Hall, Patricia, RN RN [facility] CenterCynthia damon RN RN blanco
--- NOTE | 2021-12-26 09:35 | ER ---
Nurse's Notes [facility] Name: Nicola Harvey Age: 56 yrs Sex: Male : 1965 Arrival Date: 12/24/2021 Time: 14:32 Bed 10 Private MD: Diagnosis: Pain in left knee Presentation: 12/24 14:33 Chief complaint: Patient states: pt reported going up the stairs and left knee popped. blanco pt lower self denies falls. Coronavirus screen: Vaccine status: Patient reports receiving the 2nd dose of the covid vaccine. Ebola Screen: Patient denies travel to an Ebola-affected area in the 21 days before illness onset. Initial Sepsis Screen: Does the patient meet any 2 criteria? No. Patient's initial sepsis screen is negative. Does the patient have a suspected source of infection? No. Patient's initial sepsis screen is negative. Risk Assessment: Do you want to hurt yourself or someone else? Patient reports no desire to harm self or others. Onset of symptoms was December 24, 2021. 14:33 Method Of Arrival: EMS: [facility] 14:33 Acuity: ANGE 4 blanco Historical: - Allergies: 14:34 Invokana; blanco 14:34 Jardiance; blanco - Home Meds: 15:54 amlodipine 5 mg tab 1 tab once daily [Active]; Aspirin Oral [Active]; doxazosin Oral ph [Active]; Humulin R 100 unit/mL soln [Active]; hydralazine 100 mg Oral tab 1 tab 3 times per day [Active]; Lasix 40 mg Oral tab 1 tab 2 times per day [Active]; lisinopril Oral [Active]; metformin 1,000 mg Oral tab 1 tab 2 times per day [Active]; Metoprolol Tartrate Oral [Active]; - PMHx: 15:54 CHF; Diabetes - IDDM; Hyperlipidemia; Hypertension; lower back pain with injecitons; ph Obesity; - PSHx: 15:54 addenoidectomy; rhinoplasty; ph - Immunization history:: Adult Immunizations. - Social history:: Smoking status: Patient denies any tobacco usage or history of. Screenin:54 Abuse screen: Denies threats or abuse. Denies injuries from another. Nutritional ph screening: No deficits noted. Tuberculosis screening: No symptoms or risk factors identified. Fall Risk None identified. Assessment: 16:00 General: Appears in no apparent distress. uncomfortable, obese, well groomed, Behavior ph is calm, cooperative, appropriate for age. Pain: Complains of pain in left knee. Neuro: Level of Consciousness is awake, alert, obeys commands, Oriented to person, place, time, situation. Cardiovascular: Capillary refill < 3 seconds in bilateral fingers Patient's skin is warm and dry. Respiratory: Airway is patent Respiratory effort is even, unlabored. Derm: Skin is intact, is healthy with good turgor, Skin is pink, warm \T\ dry. Musculoskeletal: Circulation, motion, and sensation intact. Range of motion: intact in all extremities. Vital Signs: 14:33 BP 140 / 67; Pulse 82; Resp 19; Temp 97.9(T); Pulse Ox 99% on R/A; Weight 148.32 kg; blanco Height 5 ft. 9 in. (175.26 cm); 14:33 Body Mass Index 48.29 (148.32 kg, 175.26 cm) blanco ED Course: 14:32 Patient arrived in ED. am2 14:34 Triage completed. lbanco 14:38 Osiris Quiroz FNP-C is PHCP. kb 14:38 Asael Bernal MD is Attending Physician. kb 15:35 Knee Left 3 View XRAY In Process Unspecified. EDMS 15:54 Mary Anne Grace, RN is Primary Nurse. ph 15:54 Arm band placed on Patient placed in an exam room. ph 15:54 Patient has correct armband on for positive identification. Bed in low position. Call ph light in reach. Side rails up X 1. Pulse ox on. NIBP on. 16:55 No provider procedures requiring assistance completed. Patient did not have IV access ph during this emergency room visit. Crutch training done. Knee immobilizer applied on left knee. Administered Medications: No medications were administered Medication: 15:54 VIS not applicable for this client. ph Outcome: 16:11 Discharge ordered by . kb 16:54 Discharged to home ambulatory, with crutches, with family. iw 16:54 Condition: good 16:54 Discharge instructions given to patient, Instructed on discharge instructions, follow up and referral plans. medication usage, Demonstrated understanding of instructions, follow-up care, medications, Prescriptions given X 1. 16:55 Patient left the ED. iw Signatures: Dispatcher [employer] EDMS Osiris Quiroz, OVERNIGHT ASSOCIATE-C OVERNIGHT ASSOCIATE-Janay Pires, RN Mary Anne Monet RN Sudha Jeffrey ph-SharynrCynthia RN KRUNAL blanco
== END 2021-12-24 16:55 | disposition home or self-care (01) ==
LOC: ER 14:26
DX: M25.562 Pain in left knee (principal); E11.9 Type 2 diabetes mellitus without complications; I50.9 Heart failure, unspecified; Z79.4 Long term (current) use of insulin; Z79.82 Long term (current) use of aspirin; Z88.8 Allergy status to other drugs, medicaments and biological substances
CPT/HCPCS: 99284

== ENCOUNTER 2022-06-02 20:54 | Emergency (ER) | payer BC, SELFPAY ==
--- OUTSIDE RECORDS SUMMARY | 2022-06-02 21:01 | XMS REPORT | Continuity of Care Document ---
:1965 Author Organization [facility] t Address [address] [place] [address] Care Team Providers Name Role Phone Hope Barraza Primary Care Physician [email or web address] Attending Clinician Unavailable Ellen Pantoja Attending Clinician [phone] PAUL SLOAN Attending Clinician Unavailable Nurse, Adc Pob Immunization Attending Clinician Unavailable Paul Sloan DO Attending Clinician JAZMIN SARMIENTO Attending Clinician Unavailable Neel Garcia Attending Clinician Unavailable CHINO HEALY Attending Clinician Unavailable Only, Adc Test Attending Clinician Unavailable Doctor Unassigned, [place] Attending Clinician Unavailable Anupam Atkins MD Attending Clinician Dulce Lau Attending Clinician Camacho Jesus Attending Clinician Manjinder Kowalski Attending Clinician MADI FAITH Attending Clinician Unavailable TAMMY BETANCOURT Attending Clinician Unavailable [email or web address] Admitting Clinician Unavailable HOPE BARRAZA Admitting Clinician Unavailable MADI FAITH Admitting Clinician Unavailable TAMMY BETANCOURT Admitting Clinician Unavailable Payers Payer Name Policy Type Policy Number Effective Date Expiration Date Darryl BARRIOS (POS) [id number] 2021 00:00:00 BCBS [facility] - [id number] 2019 00:00:00 OUT OF STATE BLUE CROSS-CA: [id number] [facility] BLUE CROSS (PPO) Problems Condition Condition Condition Status Onset Resolution Last Treating Co mments Source Name Details Category Date Date Treatment Clinician Date Hyperglyce Hyperglyce Problem Active P [facility]ia judy due to judy Due to 09-24 Me dical type 2 Type 2 00:00: diabetes Diabetes 00 mellitus Mellitus Mixed Mixed Problem Active [facility] hyperlipid Hyperlipid 4-22 Me dical emia emia 00:00: 00 Neuropathy Neuropathy Problem Active P rivia 4-22 Medical 00:00: 00 Essential Essential Problem Active [facility] via hypertensi Hypertensi 4-22 Me dical on on 00:00: 00 Congestive Congestive Problem Active [facility] heart Heart 4-22 Medical failure Failure 00:00: 00 Steatosis Steatosis Problem Active [facility] via of liver of Liver 4-22 Medica l 00:00: 00 Type II Type II Problem Active [facility] diabetes Diabetes 4-21 Medica l mellitus Mellitus 00:00: uncontroll Uncontroll 00 ed ed Cellulitis Cellulitis Disease Active U nivers of right of right 1-31 ity of lower lower 00:00: [place] extremity extremity 00 [facility] Branch Cellulitis Cellulitis Disease Active 2017-05 U [...] 09:02:00 l Active 00:00: Mitesh 04/08/2017 00 [facility] M54.16 M54.16 Diagnosis Active 2016-052017-03-19 Me moria Active 10:29:00 l 03/19/2017 00:00: Gabo thomas [address] Abdominal Abdominal Problem Resolve 2017-12-07 [facility] pain pain d 00:03:51 l (finding) (finding) Herm chacorta Resolved Problem 12/07/2017 [facility] Chest pain Chest Problem Resolve 2017-12-07 Memoria (finding) pain d 00:03:51 l (finding) Mitesh Resolved Problem 12/07/2017 [facility] Chronic Chronic Problem Resolve 2017-12-07 M emoria back pain back pain d 00:03:51 l (disorder) (disorder) He rmann Resolved Problem 12/07/2017 [facility] Diabetes Diabetes Problem Active 2017-12-07 [facility] mellitus mellitus 00:03:51 l (disorder) (disorder) He rmann Active Problem 12/07/2017 [facility] Hyperchole Hyperchol Problem Active 2017-12-07 [facility] sterolemia esterolemi 00:03:51 l (disorder) a Gabo thomas (disorder) Active Problem 12/07/2017 [facility] Hypertensi Hypertens Problem Active 2017-12-07 Memoria ve liliana 00:03:51 l disorder, disorder, Herm chacorta systemic systemic arterial arterial (disorder) (disorder) Active Problem 12/07/2017 [facility] Morbid Morbid Problem Active 2017-12-07 Chuck jack obesity obesity 00:03:51 l (disorder) (disorder) He rmann Active Problem 12/07/2017 [facility] Prolapsed Prolapsed Problem Active 2017-12-07 [facility] lumbar lumbar 00:03:51 l interverte interverte He rmchacorta bral disc bral disc (disorder) (disorder) Active Problem 12/07/2017 [facility] Allergies, Adverse Reactions, Alerts Allergy Allergy Status Severity Reaction(s) Onset Inactive Treating Comm ents Source Name Type Date Date Clinician No Known DA Active U 2020-0 [facility] Allergie 02-01 [place] s 00:00: Health [facility] No Known DA Active U 2020-0 [facility] Allergie 02-01 Young s 00:00: Health 00 [facility] NO KNOWN Drug Active Univers ALLERGIE Class ity of S [facility] Social History Social Habit Start Date Stop Date Quantity Comments Source Alcohol intake 2018-07-21 2018-07-21 Current University of 00:00:00 00:00:00 non-drinker of [facility] alcohol Branch (finding) Tobacco use and 2018-04-09 2018-04-09 Never used Universit y of exposure 00:00:00 00:00:00 [facility] [place] [facility] Sex [birth year] Universit y of 00:00:00 00:00:00 [facility] Smoking Status Start Date Stop Date Source Never Smoker [facility] Social History 2017-06-05 17:47:50 2017-06-05 17:47:50 [facility] Medications Ordered Filled Start Stop Current Ordering Indication Dosage Frequency Signature Comments Components Source Medication Medication Date Date Medication? Clinician (SIG) Name Name insulin 2018-05 Yes [id number] 60U inject 60 Univers regular 0-24 Units ity of human 500 00:00: under the Varinder as unit/mL 00 skin 3 Medical injection (three) Branch times daily before meals. E11. 65 Insulin 2018- Yes Each 3 Univers Syringe-Nee 7-03 (three) ity o f dle U-100 1 00:00: times [place] mL 31 gauge 00 daily Medical x /16 Syrg before Branch meals. E11.65 insulin Yes [id number] 1{each} 1 Each 3 Univers U-500 5-28 (three) ity of syringe-nee 00:00: times [place] dle 1/2 mL 00 daily Medical 31 gauge x before Branch " Syrg meals. E11.65 metformin 2018- Yes [id number] 1000mg Take 2 Univers ER 500 mg 5-28 tablets by ity of 24 hr 00:00: mouth 2 [place] tablet 00 (two) Medical times Branch daily with meals. glimepiride 2018- Yes [id number] 4mg Take 1 Univers 4 mg tablet 5-28 tablet by ity of 00:00: mouth 2 [place] 00 (two) Medical times Branch daily with meals. pravastatin 2018- Yes [id number] 20mg Take 1 Univers 20 mg 5-28 tablet by ity of tablet 00:00: mouth at [place] 00 bedtime. Medical Branch metoprolol Yes 50mg Take 50 mg U nivers tartrate 50 06-26 by mouth 2 it y of mg tablet 17:31: (two) [place] 53 times Medical daily. Branch lisinopril Yes 40mg Take 40 mg U nivers 40 mg -01 by mouth ity of tablet 17:31: daily. [place] [address] Medical Branch amLODIPine Yes 5mg Take 5 mg Un bria 5 mg tablet 06-26 by mouth ity of 17:31: daily. [place] [address] Medical Branch traMADOL 50 Yes [id number] 50mg Take 1 Univers mg tablet 06-26 [id number] tablet by ity of 00:00: mouth 2 [place] 00 (two) Medical times Branch daily as needed for Pain (scale 4-6) or Pain (scale 7-10). hydroCHLORO 2017-05 Yes [id number] 25mg Take 1 Univers thiazide 25 2-14 tablet by ity of mg tablet 00:00: mouth [place] 00 daily. Medical Branch exenatide 2017-05 Yes [id number] 2mg inject 2 Univers microsphere 1-14 mg [...] , # 150 tab, 2 Refill(s), Pharmacy: [id number] diclofenac 2016-05 Yes 75 mg = 1 Me moria sodium 75 2-01 tab, PO, l mg oral 14:52: BID, PRN Gabo n enteric 00 Pain Score coated, 7-10, # 60 delayed-rel tab, 2 ease tablet Refill(s), Pharmacy: [id number] Cyclobenzap 2016-05 Yes 10 mg = 1 M emoria rine 2-01 tab, PO, l hydrochlori 14:52: BID, # 60 H ermann de 10 MG 00 tab, 2 Oral Tablet Refill(s), [Flexeril] Pharmacy: [id number] amitriptyli 2016-05 Yes 10 mg = 1 M emoria ne 10 mg 2-01 tab, PO, l oral tablet 14:52: Bedtime, 4 Mitesh 00 tabs at bedtime for 1 week then 5 tabs at bedtime thereafter , # 150 tab, 2 Refill(s), Pharmacy: [facility] diclofenac 2016-05 Yes 75 mg = 1 Me moria sodium 75 2-01 tab, PO, l mg oral 14:52: BID, PRN Gabo n enteric 00 Pain Score coated, 7-10, # 60 delayed-rel tab, 2 ease tablet Refill(s), Pharmacy: [facility] Cyclobenzap 2016-05 Yes 10 mg = 1 M emoria rine 2-01 tab, PO, l hydrochlori 14:52: BID, # 60 H ermann de 10 MG 00 tab, 2 Oral Tablet Refill(s), [Flexeril] Pharmacy: [facility] Sodium 2016-05 Yes 4.2 mL, Memoria Chloride 2 Route: l 14:50: EPIDURAL, [place] 00 Dosing Weight 141.364, kg, ONCE, (Preservat liliana Free), Start date: 04/25/17 8:50:00 [employer], Stop date: 04/25/17 8:50:00 [employer] Lidocaine 2016-05 Yes 3 mL, Memoria Hydrochlori 2- Route: l de 10 MG/ML 14:50: SUB-Q, Herm chacorta Injectable 00 Dosing Solution Weight 141.364, kg, ONCE, (Preservat liliana Free), Start date: 04/25/17 8:50:00 [employer], Stop date: 04/25/17 8:50:00 [employer] Omnipaque 2016- Yes 2 mL, Memoria 300 2- Route: l 14:50: EPIDURAL, Mitesh 00 Dosing Weight 141.364, kg, ONCE, (Preservat liliana Free), Start date: 04/25/17 8:50:00 [employer], Stop date: 04/25/17 8:50:00 [employer] Dexamethaso 2016-05 Yes 8 mg, Memor ia ne 2- Route: l 14:50: EPIDURAL, Mitesh 00 ONCE, Dosing Weight 141.364, kg, (Preservat liliana Free), Start date: 04/25/17 8:50:00 [employer], Stop date: 04/25/17 8:50:00 [employer] Bupivacaine 2017-1 Yes 2 mL, Memor ia Hydrochlori 2-01 Route: l de 2.5 14:50: EPIDURAL, Gabo n MG/ML 00 Dosing Injectable Weight Solution 141.364, kg, ONCE, (Preservat liliana Free), Start date: 04/25/17 8:50:00 [employer], Stop date: 04/25/17 8:50:00 [employer] Sodium 2017-1 Yes 4.2 mL, Memoria Chloride 2-01 Route: l 14:50: EPIDURAL, [place] 00 Dosing Weight 141.364, kg, ONCE, (Preservat liliana Free), Start date: 04/25/17 8:50:00 [employer], Stop date: 04/25/17 8:50:00 [employer] Lidocaine 2017-1 Yes 3 mL, Memoria Hydrochlori 2-01 Route: l de 10 MG/ML 14:50: SUB-Q, Herm chacorta Injectable 00 Dosing Solution Weight 141.364, kg, ONCE, (Preservat liliana Free), Start date: 04/25/17 8:50:00 [employer], Stop date: 04/25/17 8:50:00 [employer] Omnipaque 2017-1 Yes 2 mL, Memoria 300 2-01 Route: l 14:50: EPIDURAL, [place] 00 Dosing Weight 141.364, kg, ONCE, (Preservat liliana Free), Start date: 04/25/17 8:50:00 [employer], Stop date: 04/25/17 8:50:00 [employer] Dexamethaso 2017-1 Yes 8 mg, Memor ia ne 2-01 Route: l 14:50: EPIDURAL, [place] 00 ONCE, Dosing Weight 141.364, kg, (Preservat liliana Free), Start date: 04/25/17 8:50:00 [employer], Stop date: 04/25/17 8:50:00 [employer] Bupivacaine 2017-1 Yes 2 mL, Memor ia Hydrochlori 2-01 Route: l de 2.5 14:50: EPIDURAL, Gabo n MG/ML 00 Dosing Injectable Weight Solution 141.364, kg, ONCE, (Preservat liliana Free), Start date: 04/25/17 8:50:00 [employer], Stop date: 04/25/17 8:50:00 [employer] cyclobenzap cyclobenzap No cyclobenza [facility] rine 10 mg rine 10 mg joaquín 10 Medical tablet TAKE tablet TAKE mg tablet 1 TABLET BY 1 TABLET BY TAKE 1 MOUTH TWICE MOUTH TWICE TABLET BY DAILY DAILY MOUTH NEEDED NEEDED TWICE DAILY NEEDED diclofenac diclofenac No diclofenac [facility] sodium 75 sodium 75 sodium 75 Medical mg mg mg tablet,yanira tablet,yanira tablet,del yed release yed release ayed TAKE 1 TAKE 1 release TABLET BY TABLET BY TAKE 1 MOUTH 2 MOUTH 2 TABLET BY TIMES A DAY TIMES A DAY MOUTH 2 NEEDED NEEDED TIMES A DAY NEEDED doxazosin 2 doxazosin 2 No doxazosin [facility] mg tablet mg tablet 2 mg Medic al TAKE 1 TAKE 1 tablet TABLET BY TABLET BY TAKE 1 MOUTH TWICE MOUTH TWICE TABLET BY A DAY A DAY MOUTH TWICE A DAY doxycycline doxycycline No doxycyclin [facility] monohydrate monohydrate e M edical 100 mg 100 mg monohydrat capsule capsule e 100 mg TAKE 1 TAKE 1 capsule CAPSULE BY CAPSULE BY TAKE 1 MOUTH TWICE MOUTH TWICE CAPSULE BY A DAY A DAY MOUTH TWICE A DAY furosemide furosemide No 1 BID furosemide [facility] 40 mg 40 mg 40 mg Medical tablet Take tablet Take tablet 1 tablet 1 tablet Take 1 twice a day twice a day tablet by oral by oral twice a route. route. day by oral route. Guaiatussin Guaiatussin No Guaiatussi [facility] AC 10 AC 10 n AC 10 Medical mg-100 mg/5 mg-100 mg/5 mg-100 mL oral mL oral mg/5 mL liquid TAKE liquid TAKE oral 10 ML BY 10 ML BY liquid MOUTH EVERY MOUTH EVERY TAKE 10 ML 4 HOURS 4 HOURS BY MOUTH NEEDED NEEDED EVERY 4 HOURS NEEDED Humulin R Humulin R No Humulin R [facility] U-500 U-500 U-500 Medical (Concentrat (Concentrat (Concentra ed) Insulin ed) Insulin gold) 500 unit/mL 500 unit/mL Insulin subcutaneou subcutaneou 500 s soln s soln unit/mL INJECT 80 INJECT 80 subcutaneo UNITS UNITS us soln SUBCUTANEOU SUBCUTANEOU INJECT 80 SLY before SLY before UNITS breakfast breakfast SUBCUTANEO and inject and inject USLY 125 units 125 units before before before breakfast dinner dinner and inject daily total daily total 125 units max 205 max 205 before units for units for dinner 90 days 90 days daily total max 205 units for 90 days hydralazine hydralazine No hydralazin [facility] 10 mg 10 mg e 10 mg Medical tablet TAKE tablet TAKE tablet 3 TABLETS 3 TABLETS TAKE 3 BY MOUTH BY MOUTH TABLETS BY TWICE A DAY TWICE A DAY MOUTH TWICE A DAY hydralazine hydralazine No hydralazin [facility] 50 mg 50 mg e 50 mg Medical tablet TAKE tablet TAKE tablet 1 TABLET BY 1 TABLET BY TAKE 1 MOUTH TWICE MOUTH TWICE TABLET BY A DAY A DAY MOUTH TWICE A DAY Jublia 10 % Jublia 10 % No Jublia 10 [facility] topical topical % topical Medi sanjiv solution solution solution with with with applicator applicator applicator ANTWAN, ANTWAN, [place] [address] [place] [address] [place] [address] APPLY TO APPLY TO APPLY TO AFFECTED AFFECTED AFFECTED TOENAIL(S) TOENAIL(S) TOENAIL(S) BY TOPICAL BY TOPICAL BY TOPICAL ROUTE ONCE ROUTE ONCE ROUTE ONCE DAILY DAILY DAILY Lagevrio Lagevrio No Lagevrio Candice via 200 mg 200 mg 200 mg Medical capsule capsule capsule (EUA) TAKE (EUA) TAKE (EUA) TAKE 4 CAPSULES 4 CAPSULES 4 CAPSULES BY MOUTH BY MOUTH BY MOUTH TWO TIMES A TWO TIMES A TWO TIMES DAY DAY A DAY levofloxaci levofloxaci No levofloxac [facility] n 750 mg n 750 mg in 750 mg Me dical tablet TAKE tablet TAKE tablet 1 TABLET BY 1 TABLET BY TAKE 1 MOUTH EVERY MOUTH EVERY TABLET BY DAY DAY MOUTH EVERY DAY lisinopril lisinopril No lisinopril [facility] 40 mg 40 mg 40 mg Medical tablet TAKE tablet TAKE tablet 1 TABLET BY 1 TABLET BY TAKE 1 MOUTH EVERY MOUTH EVERY TABLET BY DAY DAY MOUTH EVERY DAY metformin metformin No 2 BID metformin [facility] ER 500 mg ER 500 mg ER 500 mg Medical tablet,exte tablet,exte tablet,ext nded nded ended release 24 release 24 release 24 hr Take 2 hr Take 2 hr Take 2 tablets tablets tablets twice a day twice a day twice a by oral by oral day by route with route with oral route meals. meals. with meals. metoprolol metoprolol No metoprolol [facility] tartrate 50 tartrate 50 tartrate Medical mg tablet mg tablet 50 mg TAKE 1 AND TAKE 1 AND tablet 1/2 1/2 TAKE 1 AND TABLET(S) TABLET(S) 1/2 (75 MG (75 MG TABLET(S) TOTAL) BY TOTAL) BY (75 MG MOUTH TWO MOUTH TWO TOTAL) BY TIMES A DAY TIMES A DAY MOUTH TWO TIMES A DAY naproxen naproxen No naproxen [facility] via 500 mg 500 mg 500 mg Medical tablet TAKE tablet TAKE tablet 1 TABLET BY 1 TABLET BY TAKE 1 MOUTH EVERY MOUTH EVERY TABLET BY 12 HOURS 12 HOURS MOUTH NEEDED NEEDED EVERY 12 HOURS NEEDED OneTouch OneTouch No OneTouch [facility] via [facility] Lancets 33 Lancets 33 Lancets 33 gauge USE 2 gauge USE 2 gauge USE TIMES A DAY TIMES A DAY 2 TIMES A DAY OneTouch OneTouch No OneTouch [facility] via Verio test Verio test Verio test Medical strips USE strips USE strips USE 1 STRIP 2 1 STRIP 2 1 STRIP 2 TIMES A DAY TIMES A DAY TIMES A DAY pantoprazol pantoprazol No pantoprazo [facility] e 40 mg e 40 mg le 40 mg Medic al tablet,yanira tablet,yanira tablet,del yed release yed release ayed TAKE 1 TAKE 1 release TABLET BY TABLET BY TAKE 1 MOUTH MOUTH TABLET BY DAILY, 30 DAILY, 30 MOUTH MINUTES MINUTES DAILY, 30 BEFORE BEFORE MINUTES BREAKFAST BREAKFAST BEFORE BREAKFAST terbinafine terbinafine No terbinafin [facility] HCl 1 % HCl 1 % e HCl 1 % Medi sanjiv topical topical topical cream APPLY cream APPLY cream TO THE TO THE APPLY TO AFFECTED AFFECTED THE AND AND AFFECTED SURROUNDING SURROUNDING AND AREAS OF AREAS OF SURROUNDIN SKIN BY SKIN BY G AREAS OF TOPICAL TOPICAL SKIN BY ROUTE ONCE ROUTE ONCE TOPICAL DAILY DAILY ROUTE ONCE DAILY tramadol 50 tramadol 50 No tramadol [facility] mg tablet mg tablet 50 mg Medi sanjiv TAKE 1 TAKE 1 tablet TABLET BY TABLET BY TAKE 1 MOUTH FOUR MOUTH FOUR TABLET BY TIMES A DAY TIMES A DAY MOUTH FOUR NEEDED NEEDED TIMES A FOR PAIN FOR PAIN DAY NEEDED FOR PAIN albuterol albuterol No albuterol [facility] sulfate HFA sulfate HFA sulfate Medical 90 90 HFA 90 mcg/actuati mcg/actuati mcg/actuat on aerosol on aerosol ion inhaler inhaler aerosol TAKE 1 PUFF TAKE 1 PUFF inhaler BY MOUTH BY MOUTH TAKE 1 EVERY 4 TO EVERY 4 TO PUFF BY 6 HOURS 6 HOURS MOUTH NEEDED NEEDED EVERY 4 TO 6 HOURS NEEDED amlodipine amlodipine No amlodipine [facility] 5 mg tablet 5 mg tablet 5 mg M edical TAKE 1 TAKE 1 tablet TABLET BY TABLET BY TAKE 1 MOUTH TWICE MOUTH TWICE TABLET BY A DAY A DAY MOUTH TWICE A DAY atorvastati atorvastati No atorvastat [facility] n 80 mg n 80 mg in 80 mg Medic al tablet TAKE tablet TAKE tablet 1 TABLET BY 1 TABLET BY TAKE 1 MOUTH MOUTH TABLET BY EVERYDAY AT EVERYDAY AT MOUTH BEDTIME BEDTIME EVERYDAY AT BEDTIME BD Insulin BD Insulin No BD Insulin [facility] Syringe Syringe Syringe Medica l U-500 1/2 U-500 1/2 U-500 1/2 mL 31 gauge mL 31 gauge mL 31 x " x " gauge x USE USE " USE DIRECTED DIRECTED TWICE A DAY TWICE A DAY DIRECTED TWICE A DAY ciclopirox ciclopirox No ciclopirox [facility] 8 % topical 8 % topical 8 % M edical solution solution topical APPLY TO APPLY TO solution THE THE APPLY TO AFFECTED AFFECTED THE AREA(S) BY AREA(S) BY AFFECTED TOPICAL TOPICAL AREA(S) BY ROUTE ONCE ROUTE ONCE TOPICAL DAILY DAILY ROUTE ONCE PREFERABLY PREFERABLY DAILY AT BEDTIME AT BEDTIME PREFERABLY OR 8 HOURS OR 8 HOURS AT BEDTIME BEFORE BEFORE OR 8 HOURS WASHING WASHING BEFORE WASHING cyclobenzap cyclobenzap No cyclobenza [facility] rine 10 mg rine 10 mg joaquín 10 Medical tablet TAKE tablet TAKE mg tablet 1 TABLET BY 1 TABLET BY TAKE 1 MOUTH TWICE MOUTH TWICE TABLET BY DAILY DAILY MOUTH NEEDED NEEDED TWICE DAILY NEEDED diclofenac diclofenac No diclofenac [facility] sodium 75 sodium 75 sodium 75 Medical mg mg mg tablet,yanira tablet,yanira tablet,del yed release yed release ayed TAKE 1 TAKE 1 release TABLET BY TABLET BY TAKE 1 MOUTH 2 MOUTH 2 TABLET BY TIMES A DAY TIMES A DAY MOUTH 2 NEEDED NEEDED TIMES A DAY NEEDED doxazosin 2 doxazosin 2 No doxazosin [facility] mg tablet mg tablet 2 mg Medic al TAKE 1 TAKE 1 tablet TABLET BY TABLET BY TAKE 1 MOUTH TWICE MOUTH TWICE TABLET BY A DAY A DAY MOUTH TWICE A DAY doxycycline doxycycline No doxycyclin [facility] monohydrate monohydrate e M edical 100 mg 100 mg monohydrat capsule capsule e 100 mg TAKE 1 TAKE 1 capsule CAPSULE BY CAPSULE BY TAKE 1 MOUTH TWICE MOUTH TWICE CAPSULE BY A DAY A DAY MOUTH TWICE A DAY furosemide furosemide No 1 BID furosemide [facility] 40 mg 40 mg 40 mg Medical tablet Take tablet Take tablet 1 tablet 1 tablet Take 1 twice a day twice a day tablet by oral by oral twice a route. route. day by oral route. Guaiatussin Guaiatussin No Guaiatussi [facility] AC 10 AC 10 n AC 10 Medical mg-100 mg/5 mg-100 mg/5 mg-100 mL oral mL oral mg/5 mL liquid TAKE liquid TAKE oral 10 ML BY 10 ML BY liquid MOUTH EVERY MOUTH EVERY TAKE 10 ML 4 HOURS 4 HOURS BY MOUTH NEEDED NEEDED EVERY 4 HOURS NEEDED Humulin R Humulin R No Humulin R [facility] U-500 U-500 U-500 Medical (Concentrat (Concentrat (Concentra ed) Insulin ed) Insulin gold) 500 unit/mL 500 unit/mL Insulin subcutaneou subcutaneou 500 s soln s soln unit/mL INJECT 80 INJECT 80 subcutaneo UNITS UNITS us soln SUBCUTANEOU SUBCUTANEOU INJECT 80 SLY before SLY before UNITS breakfast breakfast SUBCUTANEO and inject and inject USLY 125 units 125 units before before before breakfast dinner dinner and inject daily total daily total 125 units max 205 max 205 before units for units for dinner 90 days 90 days daily total max 205 units for 90 days hydralazine hydralazine No hydralazin [facility] 10 mg 10 mg e 10 mg Medical tablet TAKE tablet TAKE tablet 3 TABLETS 3 TABLETS TAKE 3 BY MOUTH BY MOUTH TABLETS BY TWICE A DAY TWICE A DAY MOUTH TWICE A DAY hydralazine hydralazine No hydralazin [facility] 50 mg 50 mg e 50 mg Medical tablet TAKE tablet TAKE tablet 1 TABLET BY 1 TABLET BY TAKE 1 MOUTH TWICE MOUTH TWICE TABLET BY A DAY A DAY MOUTH TWICE A DAY Jublia 10 % Jublia 10 % No Jublia 10 [facility] topical topical % topical Medi sanjiv solution solution solution with with with applicator applicator applicator ANTWAN MONCADA, [place] [address] [place] [address] [place] [address] APPLY TO APPLY TO APPLY TO AFFECTED AFFECTED AFFECTED TOENAIL(S) TOENAIL(S) TOENAIL(S) BY TOPICAL BY TOPICAL BY TOPICAL ROUTE ONCE ROUTE ONCE ROUTE ONCE DAILY DAILY DAILY Lagevrio Lagevrio No Lagevrio Candice via 200 mg 200 mg 200 mg Medical capsule capsule capsule (EUA) TAKE (EUA) TAKE (EUA) TAKE 4 CAPSULES 4 CAPSULES 4 CAPSULES BY MOUTH BY MOUTH BY MOUTH TWO TIMES A TWO TIMES A TWO TIMES DAY DAY A DAY levofloxaci levofloxaci No levofloxac [facility] n 750 mg n 750 mg in 750 mg Me dical tablet TAKE tablet TAKE tablet 1 TABLET BY 1 TABLET BY TAKE 1 MOUTH EVERY MOUTH EVERY TABLET BY DAY DAY MOUTH EVERY DAY lisinopril lisinopril No lisinopril [facility] 40 mg 40 mg 40 mg Medical tablet TAKE tablet TAKE tablet 1 TABLET BY 1 TABLET BY TAKE 1 MOUTH EVERY MOUTH EVERY TABLET BY DAY DAY MOUTH EVERY DAY metformin metformin No 2 BID metformin [facility] ER 500 mg ER 500 mg ER 500 mg Medical tablet,exte tablet,exte tablet,ext nded nded ended release 24 release 24 release 24 hr Take 2 hr Take 2 hr Take 2 tablets tablets tablets twice a day twice a day twice a by oral by oral day by route with route with oral route meals. meals. with meals. metoprolol metoprolol No metoprolol [facility] tartrate 50 tartrate 50 tartrate Medical mg tablet mg tablet 50 mg TAKE 1 AND TAKE 1 AND tablet 1/2 1/2 TAKE 1 AND TABLET(S) TABLET(S) 1/2 (75 MG (75 MG TABLET(S) TOTAL) BY TOTAL) BY (75 MG MOUTH TWO MOUTH TWO TOTAL) BY TIMES A DAY TIMES A DAY MOUTH TWO TIMES A DAY naproxen naproxen No naproxen [facility] via 500 mg 500 mg 500 mg Medical tablet TAKE tablet TAKE tablet 1 TABLET BY 1 TABLET BY TAKE 1 MOUTH EVERY MOUTH EVERY TABLET BY 12 HOURS 12 HOURS MOUTH NEEDED NEEDED EVERY 12 HOURS NEEDED OneTouch OneTouch No OneTouch [facility] via [facility] Lancets 33 Lancets 33 Lancets 33 gauge USE 2 gauge USE 2 gauge USE TIMES A DAY TIMES A DAY 2 TIMES A DAY OneTouch OneTouch No OneTouch [facility] via Verio test Verio test Verio test Medical strips USE strips USE strips USE 1 STRIP 2 1 STRIP 2 1 STRIP 2 TIMES A DAY TIMES A DAY TIMES A DAY pantoprazol pantoprazol No pantoprazo [facility] e 40 mg e 40 mg le 40 mg Medic al tablet,yanira tablet,yanira tablet,del yed release yed release ayed TAKE 1 TAKE 1 release TABLET BY TABLET BY TAKE 1 MOUTH MOUTH TABLET BY DAILY, 30 DAILY, 30 MOUTH MINUTES MINUTES DAILY, 30 BEFORE BEFORE MINUTES BREAKFAST BREAKFAST BEFORE BREAKFAST terbinafine terbinafine No terbinafin [facility] HCl 1 % HCl 1 % e HCl 1 % Medi sanjiv topical topical topical cream APPLY cream APPLY cream TO THE TO THE APPLY TO AFFECTED AFFECTED THE AND AND AFFECTED SURROUNDING SURROUNDING AND AREAS OF AREAS OF SURROUNDIN SKIN BY SKIN BY G AREAS OF TOPICAL TOPICAL SKIN BY ROUTE ONCE ROUTE ONCE TOPICAL DAILY DAILY ROUTE ONCE DAILY tramadol 50 tramadol 50 No tramadol [facility] mg tablet mg tablet 50 mg Medi sanjiv TAKE 1 TAKE 1 tablet TABLET BY TABLET BY TAKE 1 MOUTH FOUR MOUTH FOUR TABLET BY TIMES A DAY TIMES A DAY MOUTH FOUR NEEDED NEEDED TIMES A FOR PAIN FOR PAIN DAY NEEDED FOR PAIN albuterol albuterol No albuterol [facility] sulfate HFA sulfate HFA sulfate Medical 90 90 HFA 90 mcg/actuati mcg/actuati mcg/actuat on aerosol on aerosol ion inhaler inhaler aerosol TAKE 1 PUFF TAKE 1 PUFF inhaler BY MOUTH BY MOUTH TAKE 1 EVERY 4 TO EVERY 4 TO PUFF BY 6 HOURS 6 HOURS MOUTH NEEDED NEEDED EVERY 4 TO 6 HOURS NEEDED amlodipine amlodipine No amlodipine [facility] 5 mg tablet 5 mg tablet 5 mg M edical TAKE 1 TAKE 1 tablet TABLET BY TABLET BY TAKE 1 MOUTH TWICE MOUTH TWICE TABLET BY A DAY A DAY MOUTH TWICE A DAY atorvastati atorvastati No atorvastat [facility] n 80 mg n 80 mg in 80 mg Medic al tablet TAKE tablet TAKE tablet 1 TABLET BY 1 TABLET BY TAKE 1 MOUTH MOUTH TABLET BY EVERYDAY AT EVERYDAY AT MOUTH BEDTIME BEDTIME EVERYDAY AT BEDTIME BD Insulin BD Insulin No BD Insulin [facility] Syringe Syringe Syringe Medica l U-500 1/2 U-500 1/2 U-500 1/2 mL 31 gauge mL 31 gauge mL 31 x " x " gauge x USE USE " USE DIRECTED DIRECTED TWICE A DAY TWICE A DAY DIRECTED TWICE A DAY ciclopirox ciclopirox No ciclopirox [facility] 8 % topical 8 % topical 8 % M edical solution solution topical APPLY TO APPLY TO solution THE THE APPLY TO AFFECTED AFFECTED THE AREA(S) BY AREA(S) BY AFFECTED TOPICAL TOPICAL AREA(S) BY ROUTE ONCE ROUTE ONCE TOPICAL DAILY DAILY ROUTE ONCE PREFERABLY PREFERABLY DAILY AT BEDTIME AT BEDTIME PREFERABLY OR 8 HOURS OR 8 HOURS AT BEDTIME BEFORE BEFORE OR 8 HOURS WASHING WASHING BEFORE WASHING cyclobenzap cyclobenzap No cyclobenza [facility] rine 10 mg rine 10 mg joaquín 10 Medical tablet TAKE tablet TAKE mg tablet 1 TABLET BY 1 TABLET BY TAKE 1 MOUTH TWICE MOUTH TWICE TABLET BY DAILY DAILY MOUTH NEEDED NEEDED TWICE DAILY NEEDED diclofenac diclofenac No diclofenac [facility] sodium 75 sodium 75 sodium 75 Medical mg mg mg tablet,yanira tablet,yanira tablet,del yed release yed release ayed TAKE 1 TAKE 1 release TABLET BY TABLET BY TAKE 1 MOUTH 2 MOUTH 2 TABLET BY TIMES A DAY TIMES A DAY MOUTH 2 NEEDED NEEDED TIMES A DAY NEEDED doxazosin 2 doxazosin 2 No doxazosin [facility] mg tablet mg tablet 2 mg Medic al TAKE 1 TAKE 1 tablet TABLET BY TABLET BY TAKE 1 MOUTH TWICE MOUTH TWICE TABLET BY A DAY A DAY MOUTH TWICE A DAY doxycycline doxycycline No doxycyclin [facility] monohydrate monohydrate e M edical 100 mg 100 mg monohydrat capsule capsule e 100 mg TAKE 1 TAKE 1 capsule CAPSULE BY CAPSULE BY TAKE 1 MOUTH TWICE MOUTH TWICE CAPSULE BY A DAY A DAY MOUTH TWICE A DAY furosemide furosemide No 1 BID furosemide [facility] 40 mg 40 mg 40 mg Medical tablet Take tablet Take tablet 1 tablet 1 tablet Take 1 twice a day twice a day tablet by oral by oral twice a route. route. day by oral route. Guaiatussin Guaiatussin No Guaiatussi [facility] AC 10 AC 10 n AC 10 Medical mg-100 mg/5 mg-100 mg/5 mg-100 mL oral mL oral mg/5 mL liquid TAKE liquid TAKE oral 10 ML BY 10 ML BY liquid MOUTH EVERY MOUTH EVERY TAKE 10 ML 4 HOURS 4 HOURS BY MOUTH NEEDED NEEDED EVERY 4 HOURS NEEDED Humulin R Humulin R No Humulin R [facility] U-500 U-500 U-500 Medical (Concentrat (Concentrat (Concentra ed) Insulin ed) Insulin gold) 500 unit/mL 500 unit/mL Insulin subcutaneou subcutaneou 500 s soln s soln unit/mL INJECT 80 INJECT 80 subcutaneo UNITS UNITS us soln SUBCUTANEOU SUBCUTANEOU INJECT 80 SLY before SLY before UNITS breakfast breakfast SUBCUTANEO and inject and inject USLY 125 units 125 units before before before breakfast dinner dinner and inject daily total daily total 125 units max 205 max 205 before units for units for dinner 90 days 90 days daily total max 205 units for 90 days hydralazine hydralazine No hydralazin [facility] 10 mg 10 mg e 10 mg Medical tablet TAKE tablet TAKE tablet 3 TABLETS 3 TABLETS TAKE 3 BY MOUTH BY MOUTH TABLETS BY TWICE A DAY TWICE A DAY MOUTH TWICE A DAY hydralazine hydralazine No hydralazin [facility] 50 mg 50 mg e 50 mg Medical tablet TAKE tablet TAKE tablet 1 TABLET BY 1 TABLET BY TAKE 1 MOUTH TWICE MOUTH TWICE TABLET BY A DAY A DAY MOUTH TWICE A DAY Jublia 10 % Jublia 10 % No Jublia 10 [facility] topical topical % topical Medi sanjiv solution solution solution with with with applicator applicator applicator ANTWAN MONCADA, [place] [address] [place] [address] [place] [address] APPLY TO APPLY TO APPLY TO AFFECTED AFFECTED AFFECTED TOENAIL(S) TOENAIL(S) TOENAIL(S) BY TOPICAL BY TOPICAL BY TOPICAL ROUTE ONCE ROUTE ONCE ROUTE ONCE DAILY DAILY DAILY Lagevrio Lagevrio No Lagevrio Candice via 200 mg 200 mg 200 mg Medical capsule capsule capsule (EUA) TAKE (EUA) TAKE (EUA) TAKE 4 CAPSULES 4 CAPSULES 4 CAPSULES BY MOUTH BY MOUTH BY MOUTH TWO TIMES A TWO TIMES A TWO TIMES DAY DAY A DAY levofloxaci levofloxaci No levofloxac [facility] n 750 mg n 750 mg in 750 mg Me dical tablet TAKE tablet TAKE tablet 1 TABLET BY 1 TABLET BY TAKE 1 MOUTH EVERY MOUTH EVERY TABLET BY DAY DAY MOUTH EVERY DAY lisinopril lisinopril No lisinopril [facility] 40 mg 40 mg 40 mg Medical tablet TAKE tablet TAKE tablet 1 TABLET BY 1 TABLET BY TAKE 1 MOUTH EVERY MOUTH EVERY TABLET BY DAY DAY MOUTH EVERY DAY metformin metformin No 2 BID metformin [facility] ER 500 mg ER 500 mg ER 500 mg Medical tablet,exte tablet,exte tablet,ext nded nded ended release 24 release 24 release 24 hr Take 2 hr Take 2 hr Take 2 tablets tablets tablets twice a day twice a day twice a by oral by oral day by route with route with oral route meals. meals. with meals. metoprolol metoprolol No metoprolol [facility] tartrate 50 tartrate 50 tartrate Medical mg tablet mg tablet 50 mg TAKE 1 AND TAKE 1 AND tablet 1/2 1/2 TAKE 1 AND TABLET(S) TABLET(S) 1/2 (75 MG (75 MG TABLET(S) TOTAL) BY TOTAL) BY (75 MG MOUTH TWO MOUTH TWO TOTAL) BY TIMES A DAY TIMES A DAY MOUTH TWO TIMES A DAY naproxen naproxen No naproxen [facility] via 500 mg 500 mg 500 mg Medical tablet TAKE tablet TAKE tablet 1 TABLET BY 1 TABLET BY TAKE 1 MOUTH EVERY MOUTH EVERY TABLET BY 12 HOURS 12 HOURS MOUTH NEEDED NEEDED EVERY 12 HOURS NEEDED OneTouch OneTouch No OneTouch Candice via Delica Delica [facility] Lancets 33 Lancets 33 Lancets 33 gauge USE 2 gauge USE 2 gauge USE TIMES A DAY TIMES A DAY 2 TIMES A DAY OneTouch OneTouch No OneTouch [facility] via Verio test Verio test Verio test Medical strips USE strips USE strips USE 1 STRIP 2 1 STRIP 2 1 STRIP 2 TIMES A DAY TIMES A DAY TIMES A DAY pantoprazol pantoprazol No pantoprazo [facility] e 40 mg e 40 mg le 40 mg Medic al tablet,yanira tablet,yanira tablet,del yed release yed release ayed TAKE 1 TAKE 1 release TABLET BY TABLET BY TAKE 1 MOUTH MOUTH TABLET BY DAILY, 30 DAILY, 30 MOUTH MINUTES MINUTES DAILY, 30 BEFORE BEFORE MINUTES BREAKFAST BREAKFAST BEFORE BREAKFAST terbinafine terbinafine No terbinafin [facility] HCl 1 % HCl 1 % e HCl 1 % Medi sanjiv topical topical topical cream APPLY cream APPLY cream TO THE TO THE APPLY TO AFFECTED AFFECTED THE AND AND AFFECTED SURROUNDING SURROUNDING AND AREAS OF AREAS OF SURROUNDIN SKIN BY SKIN BY G AREAS OF TOPICAL TOPICAL SKIN BY ROUTE ONCE ROUTE ONCE TOPICAL DAILY DAILY ROUTE ONCE DAILY tramadol 50 tramadol 50 No tramadol [facility] mg tablet mg tablet 50 mg Medi sanjiv TAKE 1 TAKE 1 tablet TABLET BY TABLET BY TAKE 1 MOUTH FOUR MOUTH FOUR TABLET BY TIMES A DAY TIMES A DAY MOUTH FOUR NEEDED NEEDED TIMES A FOR PAIN FOR PAIN DAY NEEDED FOR PAIN acetaminoph acetaminoph No acetaminop [facility] en 300 en 300 hen 300 Medical mg-codeine mg-codeine mg-codeine 30 mg 30 mg 30 mg tablet TAKE tablet TAKE tablet 1 TABLET BY 1 TABLET BY TAKE 1 MOUTH EVERY MOUTH EVERY TABLET BY 4 HOURS 4 HOURS MOUTH NEEDED FOR NEEDED FOR EVERY 4 PAIN PAIN HOURS NEEDED FOR PAIN amlodipine amlodipine No amlodipine [facility] 5 mg tablet 5 mg tablet 5 mg M edical TAKE 1 TAKE 1 tablet TABLET BY TABLET BY TAKE 1 MOUTH TWICE MOUTH TWICE TABLET BY A DAY A DAY MOUTH TWICE A DAY BD Insulin BD Insulin No BD Insulin [facility] Syringe Syringe Syringe Medica l U-500 1/2 U-500 1/2 U-500 1/2 mL 31 gauge mL 31 gauge mL 31 x " x " gauge x USE USE " USE DIRECTED 3 DIRECTED 3 TIMES A DAY TIMES A DAY DIRECTED 3 TIMES A DAY diclofenac diclofenac No diclofenac [facility] sodium 75 sodium 75 sodium 75 Medical mg mg mg tablet,yanira tablet,yanira tablet,del yed release yed release ayed TAKE 1 TAKE 1 release TABLET BY TABLET BY TAKE 1 MOUTH TWICE MOUTH TWICE TABLET BY A DAY A DAY MOUTH TWICE A DAY doxazosin 2 doxazosin 2 No doxazosin [facility] mg tablet mg tablet 2 mg Medic al tablet furosemide furosemide No 1 BID furosemide [facility] 40 mg 40 mg 40 mg Medical tablet Take tablet Take tablet 1 tablet 1 tablet Take 1 twice a day twice a day tablet by oral by oral twice a route. route. day by oral route. Humulin Humulin No Humulin [facility] 70/30 U-100 70/30 U-100 70/30 Medical Insulin 120 Insulin 120 U-100 THREE TIMES THREE TIMES Insulin A DAY A DAY 120 THREE TIMES A DAY Humulin Humulin No Humulin [facility] 70/30 U-100 70/30 U-100 70/30 Medical Insulin 100 Insulin 100 U-100 unit/mL unit/mL Insulin subcutaneou subcutaneou 100 s s unit/mL suspension suspension subcutaneo 120 units 120 units us SQ BID SQ BID suspension 120 units SQ BID hydralazine hydralazine No hydralazin [facility] 10 mg 10 mg e 10 mg Medical tablet TAKE tablet TAKE tablet 1 TABLET BY 1 TABLET BY TAKE 1 MOUTH TWICE MOUTH TWICE TABLET BY A DAY A DAY MOUTH TWICE A DAY hydrochloro hydrochloro No hydrochlor [facility] thiazide 25 thiazide 25 othiazide Medical mg tablet mg tablet 25 mg TAKE 1 TAKE 1 tablet TABLET BY TABLET BY TAKE 1 MOUTH ONCE MOUTH ONCE TABLET BY MOUTH ONCE lisinopril lisinopril No lisinopril [facility] 40 mg 40 mg 40 mg Medical tablet TAKE tablet TAKE tablet 1 TABLET BY 1 TABLET BY TAKE 1 MOUTH EVERY MOUTH EVERY TABLET BY DAY DAY MOUTH EVERY DAY metformin metformin No metformin [facility] ER 500 mg ER 500 mg ER 500 mg Medical tablet,exte tablet,exte tablet,ext nded nded ended release 24 release 24 release 24 hr TAKE 2 hr TAKE 2 hr TAKE 2 TABLETS BY TABLETS BY TABLETS BY MOUTH TWICE MOUTH TWICE MOUTH DAILY AFTER DAILY AFTER TWICE BREAKFAST BREAKFAST DAILY AND DINNER AND DINNER AFTER BREAKFAST AND DINNER metoprolol metoprolol No metoprolol [facility] tartrate 50 tartrate 50 tartrate Medical mg tablet mg tablet 50 mg TAKE 1 AND TAKE 1 AND tablet 1/2 TABLETS 1/2 TABLETS TAKE 1 AND BY MOUTH BY MOUTH 1/2 TWICE A DAY TWICE A DAY TABLETS BY MOUTH TWICE A DAY pravastatin pravastatin No 1 Q1D pravastati [facility] 20 mg 20 mg n 20 mg Medical tablet Take tablet Take tablet 1 tablet 1 tablet Take 1 every day every day tablet by oral by oral every day route. route. by oral route. amlodipine amlodipine No amlodipine [facility] 5 mg tablet 5 mg tablet 5 mg M edical TAKE 1 TAKE 1 tablet TABLET BY TABLET BY TAKE 1 MOUTH TWICE MOUTH TWICE TABLET BY A DAY A DAY MOUTH TWICE A DAY atorvastati atorvastati No atorvastat [facility] n 80 mg n 80 mg in 80 mg Medic al tablet TAKE tablet TAKE tablet 1 TABLET BY 1 TABLET BY TAKE 1 MOUTH MOUTH TABLET BY EVERYDAY AT EVERYDAY AT MOUTH BEDTIME BEDTIME EVERYDAY AT BEDTIME BD Insulin BD Insulin No BD Insulin [facility] Syringe Syringe Syringe Medica l U-500 1/2 U-500 1/2 U-500 1/2 mL 31 gauge mL 31 gauge mL 31 x " x " gauge x USE USE " USE DIRECTED 3 DIRECTED 3 TIMES A DAY TIMES A DAY DIRECTED 3 TIMES A DAY doxazosin 2 doxazosin 2 No doxazosin [facility] mg tablet mg tablet 2 mg Medic al TAKE 1 TAKE 1 tablet TABLET BY TABLET BY TAKE 1 MOUTH TWICE MOUTH TWICE TABLET BY A DAY A DAY MOUTH TWICE A DAY doxycycline doxycycline No doxycyclin [facility] monohydrate monohydrate e M edical 100 mg 100 mg monohydrat capsule capsule e 100 mg TAKE 1 TAKE 1 capsule CAPSULE BY CAPSULE BY TAKE 1 MOUTH TWICE MOUTH TWICE CAPSULE BY A DAY A DAY MOUTH TWICE A DAY furosemide furosemide No 1 BID furosemide [facility] 40 mg 40 mg 40 mg Medical tablet Take tablet Take tablet 1 tablet 1 tablet Take 1 twice a day twice a day tablet by oral by oral twice a route. route. day by oral route. Humulin R Humulin R No 80unit( BID Humulin R [facility] U-500 U-500 s) U-500 Medical (Conc) (Conc) (Conc) Insulin Insulin Insulin Kwikpen 500 Kwikpen 500 Kwikpen unit/mL (3 unit/mL (3 500 mL) mL) unit/mL (3 subcutaneou subcutaneou mL) s Inject 80 s Inject 80 subcutaneo units twice units twice us Inject a day by a day by 80 units subcutaneou subcutaneou twice a s route s route day by before before subcutaneo meals for meals for us route 90 days. 90 days. before meals for 90 days. Humulin R Humulin R No Humulin R [facility] U-500 U-500 U-500 Medical (Concentrat (Concentrat (Concentra ed) Insulin ed) Insulin gold) 500 unit/mL 500 unit/mL Insulin subcutaneou subcutaneou 500 s soln s soln unit/mL INJECT 25 INJECT 25 subcutaneo UNITS UNITS us soln SUBCUTANEOU SUBCUTANEOU INJECT 25 SLY TWICE A SLY TWICE A UNITS DAY (BEFORE DAY (BEFORE SUBCUTANEO BREAKFAST BREAKFAST USLY TWICE AND SUPPER) AND SUPPER) A DAY (BEFORE BREAKFAST AND SUPPER) hydralazine hydralazine No hydralazin [facility] 10 mg 10 mg e 10 mg Medical tablet TAKE tablet TAKE tablet 2 TABLETS 2 TABLETS TAKE 2 BY MOUTH BY MOUTH TABLETS BY TWICE A DAY TWICE A DAY MOUTH TWICE A DAY lisinopril lisinopril No lisinopril [facility] 40 mg 40 mg 40 mg Medical tablet TAKE tablet TAKE tablet 1 TABLET BY 1 TABLET BY TAKE 1 MOUTH EVERY MOUTH EVERY TABLET BY DAY DAY MOUTH EVERY DAY metformin metformin No metformin [facility] ER 500 mg ER 500 mg ER 500 mg Medical tablet,exte tablet,exte tablet,ext nded nded ended release 24 release 24 release 24 hr TAKE 2 hr TAKE 2 hr TAKE 2 TABLETS BY TABLETS BY TABLETS BY MOUTH TWICE MOUTH TWICE MOUTH DAILY AFTER DAILY AFTER TWICE BREAKFAST BREAKFAST DAILY AND DINNER AND DINNER AFTER BREAKFAST AND DINNER metoprolol metoprolol No metoprolol [facility] tartrate 50 tartrate 50 tartrate Medical mg tablet mg tablet 50 mg TAKE 1 AND TAKE 1 AND tablet 1/2 TABLETS 1/2 TABLETS TAKE 1 AND BY MOUTH BY MOUTH 1/2 TWICE A DAY TWICE A DAY TABLETS BY MOUTH TWICE A DAY OneTouch OneTouch No OneTouch Candice via Verio test Verio test Verio test Medical strips 1 strips 1 strips 1 each BID each BID each BID albuterol albuterol No albuterol [facility] sulfate HFA sulfate HFA sulfate Medical 90 90 HFA 90 mcg/actuati mcg/actuati mcg/actuat on aerosol on aerosol ion inhaler inhaler aerosol TAKE 1 PUFF TAKE 1 PUFF inhaler BY MOUTH BY MOUTH TAKE 1 EVERY 4 TO EVERY 4 TO PUFF BY 6 HOURS 6 HOURS MOUTH NEEDED NEEDED EVERY 4 TO 6 HOURS NEEDED amlodipine amlodipine No amlodipine [facility] 5 mg tablet 5 mg tablet 5 mg M edical TAKE 1 TAKE 1 tablet TABLET BY TABLET BY TAKE 1 MOUTH TWICE MOUTH TWICE TABLET BY A DAY A DAY MOUTH TWICE A DAY atorvastati atorvastati No atorvastat [facility] n 80 mg n 80 mg in 80 mg Medic al tablet TAKE tablet TAKE tablet 1 TABLET BY 1 TABLET BY TAKE 1 MOUTH MOUTH TABLET BY EVERYDAY AT EVERYDAY AT MOUTH BEDTIME BEDTIME EVERYDAY AT BEDTIME BD Insulin BD Insulin No BD Insulin [facility] Syringe Syringe Syringe Medica l U-500 1/2 U-500 1/2 U-500 1/2 mL 31 gauge mL 31 gauge mL 31 x 15/64" x 15/64" gauge x USE USE 1564" USE DIRECTED DIRECTED TWICE A DAY TWICE A DAY DIRECTED TWICE A DAY ciclopirox ciclopirox No ciclopirox [facility] 8 % topical 8 % topical 8 % M edical solution solution topical APPLY TO APPLY TO solution THE THE APPLY TO AFFECTED AFFECTED THE AREA(S) BY AREA(S) BY AFFECTED TOPICAL TOPICAL AREA(S) BY ROUTE ONCE ROUTE ONCE TOPICAL DAILY DAILY ROUTE ONCE PREFERABLY PREFERABLY DAILY AT BEDTIME AT BEDTIME PREFERABLY OR 8 HOURS OR 8 HOURS AT BEDTIME BEFORE BEFORE OR 8 HOURS WASHING WASHING BEFORE WASHING Immunizations Ordered Filled Immunization Date Status Comments [facility] e Immunization Name Name SARS-COV-2 COVID-19 2021-04-12 Completed Unive rsity of PFIZER VACCINE 00:00:00 [facility] SARS-COV-2 COVID-19 2020-08-24 Completed Unive rsity of PFIZER VACCINE 00:00:00 [facility] SARS-COV-2 COVID-19 2020-08-03 Completed Unive rsity of PFIZER VACCINE 00:00:00 [place] [facility] Influenza Virus 2018-06-26 Completed Universit y of Vaccine Quad .5 mL 00:00:00 [facility] 6+ MO Branch Vital Signs Vital Name Observation Time Observation Value Comments Source BP Diastolic 2022-04-11 00:00:00 70 mm[Hg] [facility] Height 2022-04-11 00:00:00 70 [in_i] [facility] BMI (Body Mass Index) 2022-04-11 00:00:00 49.5 kg/m2 [facility] Medical BP Systolic 2022-04-11 00:00:00 130 mm[Hg] [facility] Body Weight 2022-04-11 00:00:00 345 [lb_av] [facility] BP Diastolic 2021-09-24 00:00:00 60 mm[Hg] [facility] Height 2021-09-24 00:00:00 70 [in_i] [facility] ed[facility] BMI (Body Mass Index) 2021-09-24 00:00:00 46.9 kg/m2 [facility] Medical BP Systolic 2021-09-24 00:00:00 140 mm[Hg] [facility] Body Weight 2021-09-24 00:00:00 327 [lb_av] [facility] BP Diastolic 2020-09-13 00:00:00 80 mm[Hg] [facility] Height 2020-09-13 00:00:00 70 [in_i] Rudi Polo edical BMI (Body Mass Index) 2020-09-13 00:00:00 45.3 [facility] Systolic 2020-09-13 00:00:00 142 mm[Hg] Rudi Polo edical Body Weight 2020-09-13 00:00:00 316 [lb_av] [facility] ed[facility] Height 2017-06-05 17:46:00 177.8 cm [facility] Weight 2017-06-05 17:46:00 [facility] [place] BMI Calculated 2017-06-05 17:46:00 Gary Avitia Systolic (mm Hg) 2017-06-05 17:46:00 Chuck Sagastume Diastolic (mm Hg) 2017-06-05 17:46:00 Mem khadra [facility] Temperature Oral (F) 2017-06-05 17:46:00 99.3 F [facility] Heart Rate 2017-06-05 17:46:00 [facility] BMI Calculated 2017-04-29 15:23:00 [facility] [place] Weight 2017-04-29 15[facility]23:[facility] 2017-04-29 15:23:00 177.8 cm [facility] Heart Rate 2017-04-29 15:00:00 [facility] Resp[facility] Rate 2017-04-29 15:00:00 [facility] Systolic (mm Hg) 2017-04-29 15:00:00 Chuck rial [facility]ites[facility] Diastolic (mm Hg) 2017-04-29 15:00:00 Mem [facility] [place] Procedures Procedure Date / Time Performing Clinician Source Performed SARS-COV-2 COVID-19 2021-04-12 22:54:16 Doctor Unassigned, No [facility] [place] VACCINE,0.3ML,IM Name Medical Branch (PFIZER) Drainage of Skin 2019-11-02 00:00:00 [facility] Abscess Myelography via lumbar 2017-04-29 16:14:00 [facility] [place] injection, including radiological supervision and interpretation; thoracic Myelography via lumbar 2017-04-29 16:14:00 [facility] injection, including radiological supervision and interpretation; lumbosacral NJX INTERLAMINAR 2017-04-25 14:50:[facility] Operation [facility] Ear operations [facility] Lumbar epidural [facility] injection Lumbar epidural steroid [facility] injection Plan of Care Planned Activity Planned Date Details Comments Source Diagnostic Test Pending 2022-04-11 00:00:00 glucose, [facility] fingerstick, blood [code = glucose, fingerstick, blood] Future Appointment 2022-07-15 14:20:00 Larry Verdiner- [facility] [address]; [place] [address], [place] [address] Encounters Start End Encounter Admission Attending Care Care Encounter Source Date/Time Date/Time Type Type Clinicians Facility Department ID 2022-04-11 2022-04-11 [facility] [id number] [facility]:00[facility]00 [facility]a Cotter GC_JEFFREYEC_Fidencio BAEZ-SENIOR 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 2022-04-10 2022-04-10 Outpatient GC_EDEC_Hay PRIV PRIV [id number] [facility] 00:00:00 00:00:00 es_A [id number] Medica l 2022-01-04 2022-01-04 Outpatient GC_EDEC_Hay PRIV PRIV [id number] [facility] 00:00:00 00:00:00 es_A [id number] Medica l 2021-12-31 2021-12-31 Outpatient GC_EDEC_Hay PRIV PRIV [id number] [facility] 00:00:00 00:00:00 es_A [id number] Medica l 2021-09-24 2021-09-24 Outpatient GC_EDEC_Hay PRIV PRIV [id number] [facility] 11:24:00 11:24:00 es_A [id number] Medica l 2021-09-24 2021-09-24 Outpatient Pantoja, PRIV PRIV [id number] 00:00:00 00:00:00 Ellen [id number] [facility] [id number] 2021-09-24 2021-09-24 Ellen PRIV [place] - [facility] 00:00:00 00:00:00 [facility] kaila Pantoja MD: GC_EDEC_Pas [address] [place] Office* [facility] [address], [place] [address] , Ph. 2021-09-20 2021-09-20 Outpatient GC_EDEC_Hay PRIV PRIV [id number] [facility] 03:44:00 03:44:00 es_A [id number] Medica l 2021-04-12 2021-04-12 Outpatient Florencio SLOAN [facility] [id number] Univers 16:30:00 16:30:00 PAUL simon [facility] 2021-04-12 2021-04-12 Imm/Inj Nurse, Adc Pob Immunization [facility] [id number] Univers 16:14:33 16:14:42 Visit Paul Sloan [id number] .10 [facility] [id number] Elizabeth HILLNAE [phone] Sc dical [address] 2021-01-16 2021-01-16 Outpatient GC_EDEC_Hay PRIV PRIV [id number] [facility] 07:11:00 07:11:00 es_A [id number] Medica l 2020-09-25 2020-09-25 Outpatient GC_EDEC_Hay PRIV PRIV [id number] [facility] 02:20:00 02:20:00 es_A [id number] Medica l 2020-09-19 2020-09-19 Outpatient GC_EDEC_Hay PRIV PRIV [id number] [facility] 02:41:00 02:41:00 es_A [id number] Medica l 2020-09-13 2020-09-13 Outpatient GC_EDEC_Hay PRIV PRIV [id number] [facility] 06:01:00 06:01:00 es_A [id number] Medica l 2020-09-13 2020-09-13 Outpatient Pantoja, PRIV PRIV [id number] 00:00:00 00:00:00 Ellen [id number] [facility] [id number] 2020-09-13 2020-09-13 Ellen [facility] [id number] [facility] 00:00:00 00:00:00 [facility] kaila Pantoja MD: GC_EDEC_Pas [address] [facility] Office* [facility] [place] [address], [place] [address] , Ph. 2020-09-11 2020-09-11 Outpatient GC_EDEC_Hay PRIV PRIV [id number] [facility] 12:06:00 12:06:00 es_A [id number] Medica l 2020-09-06 2020-09-06 Outpatient GC_EDEC_Hay PRIV PRIV [id number] [facility] 06:40:00 06:40:00 es_A [id number] Medica l 2020-08-24 2020-08-24 Outpatient Florencio SARMIENTO [facility] [id number] Univers 14:40:00 14:40:00 JAZMIN ity [facility] 2020-08-03 2020-08-03 Outpatient [facility] [id number] Univers 14:40:00 14:40:00 [facility] 2020-02-08 2020-02-08 Inpatient PILI Garcia [facility] [id number] [facility] 08:00:00 08:00:00 Neel Jr [facility] 2020-02-02 2020-02-02 Outpatient CHINO MASON [facility] [id number] Univers 11:30:00 11:30:00 ity [facility] 2020-02-02 2020-02-02 Laboratory Only, [facility] [id number] 11:14:48 11:29:48 Only Test [place] [id number] [place] [id number] [place] [id number] 2020-02-02 2020-02-02 Orders Doctor DULCE [id number] 00:00:00 00:00:00 Only Unassigned, KIMBERLY [id number] [place] [facility] [id number] 2020-01-05 2020-01-05 [facility] [id number] 00:00:00 00:00:00 [place]ong [place] [id number] [place] [id number] Professio [phone] [facility] [address] [facility] 2019-06-16 2019-06-16 [facility]phone [facility] [id number] 00:00:00 00:00:00 [place] [id number] [place] [id number] Professio [id number] [facility] 2019-06-09 2019-06-09 [facility]phone [facility] [id number] 00:00:00 00:00:00 [place] [id number] [place] [id number] Professio [id number] [address] 2019-02-10 2019-02-10 Telephone Wilbert, [facility] [id number] 00:00:00 00:00:00 Anupam [place] [id number] [place] [id number] Professio [id number] [address] 2018-12-13 2018-12-13 Orders Doctor DULCE [id number] 00:00:00 00:00:00 Only Unassigned, KIBMERLY [id number] [place] [facility] [id number] 2018-11-27 2018-11-27 Refill Wilbert, [facility] [id number] 00:00:00 00:00:00 Anupam [place] [id number] [place] [id number] Professio [id number] [address] 2017-12-04 2017-12-04 Ambulatory nullFlavo [facility] [id number] [facility] 15:30:00 15:30:00 [facility] [address] 2017-12-04 2017-12-04 Ambulatory nullFlavo [facility] [id number] Mem[facility] 15:30:00 15:30:00 [facility] [address] 2017-12-04 2017-12-04 Outpatient MHIE MHIE [id number] Memoria 10:30:00 10:30:[address] [place] [address] 2017-12-04 2017-12-04 Outpatient Dulce Lau MHMISCHER MHMISCHER [id number] 10:30:00 10:30:00 [facility] 2017-06-06 2017-06-08 Phone nullFlavo MNA Spine [id number] Memoria 20:31:00 05:59:59 Message r Clinic [address] 2017-06-06 2017-06-08 Phone nullFlavo MNA Spine [id number] Memoria 20:31:00 05:59:59 Message r Clinic [address] 2017-06-06 2017-06-07 Outpatient MHMISCHER MHMISCHER [id number] 14:31:00 23:59:59 2017-06-06 2017-06-07 Outpatient MHMISCHER MHMISCHER [id number] 14:31:00 23:59:59 09 2017-06-05 2017-06-06 Outpatient nullFlavo [facility]NA Spine [id number] Memoria 17:30:00 05:59:59 r Clinic [facility] [place] [place] 05 [facility] 2017-06-05 2017-06-06 Outpatient nullFlavo MNA Spine [id number] Memoria 17:30:00 05:59:59 r Clinic [facility] [place] [place] 05 [facility] 2017-06-05 2017-06-05 Outpatient Dulce Lau MHMISCHER MHMISCHER [id number] 11:30:00 23:59:59 C 2017-06-05 2017-06-05 Outpatient Dulce Lau MHMISCHER MHMISCHER [id number] 11:30:00 23:59:59 C 2017-06-05 2017-06-05 Outpatient MHIE MHIE [id number] Memoria 11:30:00 11:30:00 05 [facility] 2017-04-30 2017-05-02 Phone nullFlavo MNA Spine [id number] Memoria 17:52:00 05:59:59 Message r Clinic [facility] [place] [place] 08 [facility] 2017-04-30 2017-05-02 Phone nullFlavo MNA Spine [id number] Memoria 17:52:00 05:59:59 Message r [facility] 08 [facility] 2017-04-30 2017-05-01 Outpatient MHMISCHER MHMISCHER [id number] 11:52:00 23:59:59 08 2017-04-29 2017-04-30 Outpatient nullFlavo [facility] [id number] Memoria 14:20:00 05:59:00 r [place] 00 [facility] 2017-04-29 2017-04-30 Outpatient nullFlavo [facility] [id number] Memoria 14:20:00 05:59:00 r [place] 00 [facility] 2017-04-29 2017-04-29 Outpatient Dulce Lau [facility] [id number] 08:20:00 23:59:00 C 2017-04-25 2017-04-26 Outpatient nullFlavo [facility] [id number] Memoria 14:00:00 05:59:59 r Clinic [facility] 06 [facility] 2017-04-25 2017-04-26 Outpatient nullFlavo [facility] [id number] Memoria 14:00:00 05:59:59 r Clinic [facility] 06 [facility] 2017-04-24 2017-04-26 Phone nullFlavo MNA Spine [id number] Memoria 22:30:00 05:59:59 Message r Clinic [facility] 07 [facility] 2017-04-24 2017-04-26 Phone nullFlavo [facility]NA Spine [id number] Memoria 22:30:00 05:59:59 Message r Clinic [facility] 07 [facility] 2017-04-24 2017-04-26 Phone nullFlavo MNA Spine [id number] Memoria 22:27:00 05:59:59 Message r Clinic [facility] 06 [facility] 2017-04-24 2017-04-26 Phone nullFlavo [facility]NA Spine [id number] Memoria 22:27:00 05:59:59 Message r Clinic TM 06 [facility] 2017-04-25 2017-04-25 Outpatient Edin, MHMISCHER MHMISCHER [id number] 08:00:00 23:59:59 Camacho Cook 06 2017-04-24 2017-04-25 Outpatient MHMISCHER MHMISCHER [id number] 16:30:00 23:59:59 07 2017-04-24 2017-04-25 Outpatient MHMISCHER MHMISCHER [id number] 16:27:00 23:59:59 06 2017-04-25 2017-04-25 Outpatient MHIE MHIE [id number] Memoria 08:00:00 08:00:00 06 [facility] 2017-04-04 2017-04-04 Outpatient MHIE MHIE [id number] Memoria 13:00:00 13:00:00 04 [facility] 2017-04-04 2017-04-04 Outpatient MHIE MHIE [id number] Memoria 13:00:00 13:00:00 04 [facility] 2017-03-19 2017-03-20 Outpatient nullFlavo [facility] [id number] Memoria 15:22:00 04:59:[address] 2017-03-19 2017-03-20 Outpatient nullFlavo [facility] [id number] Memoria 15:22:00 04:59:00 r Mitesh 98 [facility] 2017-03-19 2017-03-19 Outpatient Manjinder Kowalski [facility] [id number] 10:22:00 23:59:00 Minervakevin Encinas 2017-03-19 2017-03-19 Outpatient MHIE MHIE [id number] Memoria 08:45:00 08:45:00 03 [facility] 2017-03-19 2017-03-19 Outpatient MHIE MHIE [id number] Memoria 08:45:00 08:45:00 03 [place] 2017-03-19 2017-03-19 Outpatient MHIE MHIE [id number] Memoria 07:45:00 07:45:00 02 [facility] 2017-03-19 2017-03-19 Outpatient MHIE MHIE [id number] Memoria 07:45:00 07:45:00 02 l [place] 2016-09-04 2016-09-04 Outpatient MHIE MHIE [id number] Memoria 07:45:00 07:45:00 01 [facility] 2016-09-04 2016-09-04 Outpatient MHIE MHIE [id number] Memoria 07:45:00 07:45:00 01 l [place] 2016-08-19 2016-08-19 Outpatient MHIE MHIE [id number] Memoria 10:30:00 10:30:00 00 l [place] 2016-08-19 2016-08-19 Outpatient MHIE MHIE [id number] Memoria 10:30:00 10:30:00 00 l Mitesh Results Test Description Test Time Test Comments Results Result Comments Source Glucose [Mass/volume] in Capillary blood 2022-04-11 14:44:52 Test Item Value Reference Range Interpretation Comme nts glucose (test code = glucose) 190 mg/dL 65-99 [facility] in [facility] [id number] 14:44:52 Test Item Value Reference Range Interpretation Comments glucose (test code = glucose) 190 mg/dL 65-99 [facility] [Mass/volume] in Capillary [id number] 14:44:52 Test Item Value Reference Range Interpretation Comments glucose (test code = glucose) 190 mg/dL 65-99 [facility] [Mass/volume] in Capillary [id number] 09:57:51 Test Item Value Reference Range Interpretation Comments glucose (test code = glucose) 264 mg/dL 65-99 [facility] [id number] 15:58:00 Test Item Value Reference Range Interpretation Comments GLUBED (test code = GLUBED) 147 MG/DL 70-105 H [id number] 16:42:00 Test Item Value Reference Range Interpretation Comments PTT (test code = PTT) 29.4 s 22.9-35.8 [facility]gngnoHOLZORUWOV0948-24-54 16:42:00 Test Item Value Reference Range Interpretation Comments PT (test code = PT) 12.8 s 12.0-14.7 [facility] CampusLdibutbEADXPBMXIR9677-13-06 16:42:00 Test Item Value Reference Range Interpretation Comments INR (test code = INR) 0.96 0.85-1.17 [facility] Camp[id number] 16:42:00 Test Item Value Reference Range Interpretation Comments PTT (test code = PTT) 29.4 s 22.9-35.8 [facility] CampusLwofbtzBQTIWTWWIT7777-98-89 16:42:00 Test Item Value Reference Range Interpretation Comments PT (test code = PT) 12.8 s 12.0-14.7 [facility] Camp[id number] 16:42:00 Test Item Value Reference Range Interpretation Comments INR (test code = INR) 0.96 0.85-1.17 [facility]2017-12-05 15:26:00 Test Item Value Reference Range Interpretation Comments eGFR (test code = eGFR) 95 [facility]2017-12-05 15:26:00 Test Item Value Reference Range Interpretation Comments Creatinine Lvl (test code = Creatinine 0.92 0.50-1.40 Lvl) [facility]2017-12-05 15:26:00 Test Item Value Reference Range Interpretation Comments BUN (test code = BUN) 21 - [facility] CampusFznklyrHVHCUCSTOR6850-25-09 15:26:00 Test Item Value Reference Range Interpretation Comments MCV (test code = MCV) 84.7 80.0-94.0 [facility] [id number] 15:26:00 Test Item Value Reference Range Interpretation Comments Hct (test code = Hct) 41.3 42.0-54.0 [place] [id number] 15:26:00 Test Item Value Reference Range Interpretation Comments MCH (test code = MCH) 27.9 pg 27.0-31.0 [facility]2017-12-05 15:26:00 Test Item Value Reference Range Interpretation Comments eGFR (test code = eGFR) 95 [facility]2017-12-05 15:26:00 Test Item Value Reference Range Interpretation Comments Creatinine Lvl (test code = Creatinine 0.92 0.50-1.40 Lvl) [facility]2017-12-05 15:26:00 Test Item Value Reference Range Interpretation Comments BUN (test code = BUN) 21 7-22 [facility] CampusHoqweowEBUEMJNAOZ5303-73-62 15:26:00 Test Item Value Reference Range Interpretation Comments MCV (test code = MCV) 84.7 80.0-94.0 [facility] Camp[id number] 15:26:00 Test Item Value Reference Range Interpretation Comments Hct (test code = Hct) 41.3 42.0-54.0 [facility] Camp[id number] 15:26:00 Test Item Value Reference Range Interpretation Comments MCH (test code = MCH) 27.9 pg 27.0-31.0 [facility] C[id number] 15:26:00 Test Item Value Reference Range Interpretation Comments MCHC (test code = MCHC) 32.9 32.0-36.0 [facility] CampusGbytupaWGPTTPRPJP0483-11-56 15:26:00 Test Item Value Reference Range Interpretation Comments WBC (test code = WBC) 7.2 3.7-10.4 [facility] CampusMsewvlgJXJKUVNFPU8169-48-27 15:26:00 Test Item Value Reference Range Interpretation Comments MCHC (test code = MCHC) 32.9 32.0-36.0 [facility] CampusDumrcvvCSQTPKTCPY8727-95-77 15:26:00 Test Item Value Reference Range Interpretation Comments RBC (test code = RBC) 4.87 4.70-6.10 [facility] Camp[id number] 15:26:00 Test Item Value Reference Range Interpretation Comments Hgb (test code = Hgb) 13.6 14.0-18.0 [facility] CampusQsnvtmkGXLRXYSQZS6775-65-54 15:26:00 Test Item Value Reference Range Interpretation Comments RDW (test code = RDW) 16.1 11.5-14.5 [facility] CampusKhzixdlOTWSTDHRCM5653-44-06 15:26:00 Test Item Value Reference Range Interpretation Comments Platelet (test code = Platelet) 239 072-914 [facility] CampusDfzknodTTEIORCSHY6334-77-24 15:26:00 Test Item Value Reference Range Interpretation Comments MPV (test code = MPV) 8.0 7.4-10.4 [facility] CampusItpdnnbUNPGVIIGTL9060-31-33 15:26:00 Test Item Value Reference Range Interpretation Comments WBC (test code = WBC) 7.2 3.7-10.4 [facility] CampusBndnemkHULSKPNLDA5966-00-07 15:26:00 Test Item Value Reference Range Interpretation Comments RBC (test code = RBC) 4.87 4.70-6.10 [facility] [id number] 15:26:00 Test Item Value Reference Range Interpretation Comments Hgb (test code = Hgb) 13.6 14.0-18.0 [facility] Camp[id number] 15:26:00 Test Item Value Reference Range Interpretation Comments RDW (test code = RDW) 16.1 11.5-14.5 [facility] CampusMjioucvUICQOBJCOJ7895-74-95 15:26:00 Test Item Value Reference Range Interpretation Comments Platelet (test code = Platelet) 533 510-923 [facility] [id number] 15:26:00 Test Item Value Reference Range Interpretation Comments MPV (test code = MPV) 8.0 7.4-10.4 [place] [id number] 05:57:00 Test Item Value Reference Range Interpretation [...] ( 4 - SerumAlbumin)] EGFR if >60 [place] (test code mL/min/1.73m\\ = EGFRAA) S\\2 EGFR if Non- >[address] [place] (test code mL/min/1.73m\\ Filtrat ion Rate (eGFR) [...] and management of c hronic kidney failure. [facility] WITH AUTO [id number] 05:42:00 Test Item Value Reference Range Interpretation [...] code = 1.0 % 0.0-0.4 H IG%) [facility] 05:53:00 Test Item Value Reference Range Interpretation [...] ( 4 - SerumAlbumin)] EGFR if >60 [place] (test code mL/min/1.73m\\ = EGFRAA) S\\2 EGFR if Non- >[address] [place] (test code mL/min/1.73m\\ Filtrat ion Rate (eGFR) [...] and management of c hronic kidney failure. [facility] WITH AUTO [id number] 05:27:00 Test Item Value Reference Range Interpretation [...] code = 1.7 % 0.0-0.4 H IG%) [facility] 04:36:00 Test Item Value Reference Range Interpretation [...] ( 4 - SerumAlbumin)] EGFR if >60 [place] (test code mL/min/1.73m\\ = EGFRAA) S\\2 EGFR if Non- >[address] [place] (test code mL/min/1.73m\\ Filtrat ion Rate (eGFR) [...] and management of c hronic kidney failure. [facility] WITH AUTO [id number] 04:14:00 Test Item Value Reference Range Interpretation [...] code = 1.9 % 0.0-0.4 H IG%) [facility] 04:40:00 Test Item Value Reference Range Interpretation [...] ( 4 - SerumAlbumin)] EGFR if >60 [place] (test code mL/min/1.73m\\ = EGFRAA) S\\2 EGFR if Non- >[address] [place] (test code mL/min/1.73m\\ Filtrat ion Rate (eGFR) [...] and management of c hronic kidney failure. [facility] WITH AUTO [id number] 04:09:00 Test Item Value Reference Range Interpretation [...] code = 2.4 % 0.0-0.4 H IG%) [facility]2017-08-31 06:50:00To start 15mins after 1st cultureSpecimen: BloodCollected: 01/18/2017 04:05 Status: Final Last Updated: 01/23/2017 06:49 (1) To [id number] after 1st culture Culture Result (Final) (Final) [facility] 06[facility]50:00Specimen: BloodCollected: 01/18/2017 03:55 Status: Final Last Updated: 01/23/2017 06:49 Culture Result (Final) (Final) [facility] [id number] 04:31:00 Test Item Value Reference Range Interpretation [...] code = 3.4 % 0.0-0.4 H IG%) [facility]-[id number] 04:19:00 Test Item Value Reference Range Interpretation [...] ( 4 - SerumAlbumin)] EGFR if >60 [place] (test code mL/min/1.73m\\ = EGFRAA) S\\2 EGFR if Non- >[address] [place] (test code mL/min/1.73m\\ Filtrat ion Rate (eGFR) [...] and management of c hronic kidney failure. [facility] WITH AUTO [id number] 04:57:00 Test Item Value Reference Range Interpretation [...] 4.0 % 0.0-0.4 H IG%) CBC AUTO [facility]-[id number] 04:35:00 Test Item Value Reference Range Interpretation [...] ( 4 - SerumAlbumin)] EGFR if >60 [place] (test code mL/min/1.73m\\ = EGFRAA) S\\2 EGFR if Non- >[address] [place] (test code mL/min/1.73m\\ Filtrat ion Rate (eGFR) = EGFRNA) S\\2 Reference Inter vals Decision Points for 18 years and older and average body ma ss: >= 60 Does not exc lude kidney disease. 30 - 59 Suggests mod erate chronic kidney disease and indicates the need for furthe r investigation including asses sment of proteinuria and cardiovascular factors. < 30 Usually indicates a nee d for referral for assessment and management of c hronic kidney failure. [facility] WITH AUTO [id number] 05:01:00 Test Item Value Reference Range Interpretation [...] 4.5 % 0.0-0.4 H IG%) CBC AUTO [facility]-[id number] 04:56:00 Test Item Value Reference Range Interpretation [...] ( 4 - SerumAlbumin)] EGFR if >60 [place] (test code mL/min/1.73m\\ = EGFRAA) S\\2 EGFR if Non- >[address] [place] (test code mL/min/1.73m\\ Filtrat ion Rate (eGFR) [...] and management of c hronic kidney failure. [facility] WITH AUTO [id number] 05:57:00 Test Item Value Reference Range Interpretation [...] code = 4.8 % 0.0-0.4 H IG%) [facility]icsYlpglf-[id number] 05:41:00 Test Item Value Reference Range Interpretation Comments Magnesium (test code = MG) 2.0 mg/dl 1.6-2.3 [facility]-[id number] 05:41:00 Test Item Value Reference Range Interpretation [...] ( 4 - SerumAlbumin)] EGFR if >[address] [place] (test code mL/min/1.73m\\ = EGFRAA) S\\2 EGFR if Non- >[address] [facility] [place] (test code mL/min/1.73m\\ Filtrat ion Rate (eGFR) [...] and management of c hronic kidney failure. [facility]-LufkinLACTIC ACID [id number] 06:43:00 Test Item Value Reference Range Interpretation Comments LACTATE (test code = LAC) 0.9 mmol/l 0.7-2.0 [facility]-LufkinGLYCOSALATED [id number] 05:41:00 Test Item Value Reference Range Interpretation Comments Hemoglobin A1C (test 9.06 % 4.3-6.0 A code = GLYCO) Mean Plasma Glucose 245 mg/dl 90-180 WHEN BONIFACIO T RESULTS FOR (test code = MPG) A1C EXCEED 14.0, THE LINEAR LIMIT OF THE INSTRUMENT, THE CALCULATED RESU LT FOR THE MEAN GLUCOS E IS NOT RELIABLE. [facility]kinCORONARY [id number] 05:09:00 Test Item Value Reference Range Interpretation [...] 3.3 1/2 Average 5.0 4.4 Average 9.6 7. 1 2X Average 24.0 11 .0 3X Average vLDL (test code = 37 mg/dl 30-60 VLDL) [facility]icsBqiahx-[id number] 04:51:00 Test Item Value Reference Range Interpretation Comments Magnesium (test code = MG) 2.1 mg/dl 1.6-2.3 [facility]-[id number] 04:51:00 Test Item Value Reference Range Interpretation Comments CPK (test code = CPK) 93 U/L 30-135 [facility], [id number] 04:43:00 Test Item Value Reference Range Interpretation Comments Lipase (test code = LIPA) 116 U/L 8-223 [facility]-[id number] 04:43:00 Test Item Value Reference Range Interpretation [...] ( 4 - SerumAlbumin)] EGFR if >60 [place] (test code mL/min/1.73m\\ = EGFRAA) S\\2 EGFR if Non- >[address] [facility] [place] (test code mL/min/1.73m\\ Filtrat ion Rate (eGFR) [...] and management of c hronic kidney failure. [facility] ([facility] ONLY[facility]2017-01-18 04:37:00 Test Item Value Reference [...] PLATELET CLUMPI NG. THIS IS A HEMOGRAM [facility]
[2022-06-02 22:02] LABS: Urine Blood Negative (Negative); Urine Glucose Negative (Negative); Urine Protein 3+ (Negative); Urine Specific Gravity >=1.030 (1.005-1.030); Urine pH 5.5 (5.0-7.0)
[2022-06-02 22:04] LABS: Absolute Lymphocytes (CBC) 1.1 K/uL (0.7-4.9); Hematocrit 33.8 % (39.6-49.0); Lymphocytes % 15.3 % (15.3-44.8); MCV 81.2 fL (80-100); MPV 7.4 fL (7.6-11.3); RBC Red Blood Cell Count 4.15 M/uL (4.33-5.43)
[2022-06-02 22:14] LABS: Albumin 3.2 g/dL (3.4-5.0); Bilirubin Total 0.4 mg/dL (0.2-1.0); Potassium 3.9 mmol/L (3.5-5.1); Protein, Total 7.2 g/dL (6.4-8.2)
[2022-06-02 22:21] LABS: Urine Bacteria None Seen /HPF (<20); Urine Mucus 1+ /HPF (None Seen); Urine RBC None Seen /HPF (None Seen)
--- NOTE | 2022-06-03 00:12 | EDPHYS ---
Physician Documentation [facility] Name: Nicola Harvey Age: 57 yrs Sex: Male : 1965 Arrival Date: 06/02/2022 Time: 20:57 Bed 7 Private MD: ED Physician Mele Mayfield HPI: 06/02 23:59 This 57 yrs old Male presents to ER via Ambulatory with complaints of Fever. kb 06/03 00:00 The patient presents with abdominal pain that is diffuse. Onset: The symptoms/episode kb began/occurred 3 day(s) ago. The symptoms do not radiate. Associated signs and symptoms: Pertinent positives: constipation, fever, nausea. The symptoms are described as constant. Modifying factors: The symptoms are alleviated by nothing, the symptoms are aggravated by nothing. Severity of pain: At its worst the pain was moderate in the emergency department the pain is unchanged. The patient has not experienced similar symptoms in the past. The patient has not recently seen a physician. Patient reports constipation, fever, nausea and abdominal pain that started 3 days ago. States he had similar symptoms last week but they went away on their own. Has been taking ibuprofen for fever.. Historical: - Allergies: 06/02 21:15 Invokana; kb3 21:15 Jardiance; kb3 - PMHx: 21:15 Diabetes - IDDM; Hyperlipidemia; Hypertension; CHF; Obesity; Chronic back pain; kb3 - PSHx: 21:15 addenoidectomy; rhinoplasty; Cholecystectomy; kb3 - Immunization history:: Adult Immunizations up to date, Client reports receiving the 2nd dose of the Covid vaccine, Last tetanus immunization: unknown. - Social history:: Smoking status: Patient denies any tobacco usage or history of. ROS: 06/03 00:00 Respiratory: Negative for shortness of breath, cough, wheezing, and pleuritic chest kb pain. Constitutional: Positive for fever. Abdomen/GI: Positive for abdominal pain, nausea, constipation. All other systems are negative. Exam: 00:00 Constitutional: This is a well developed, well nourished patient who is awake, alert, kb and in no acute distress. Head/Face: Normocephalic, atraumatic. ENT: Moist Mucous membranes Cardiovascular: Regular rate and rhythm with a normal S1 and S2. No gallops, murmurs, or rubs. No pulse deficits. Respiratory: Respirations even and unlabored. No increased work of breathing. Talking in full sentences Skin: Warm, dry with normal turgor. Normal color. MS/ Extremity: Pulses equal, no cyanosis. Neurovascular intact. Full, normal range of motion. Neuro: Awake and alert, GCS 15, oriented to person, place, time, and situation. Moves all extremities. Normal gait. Psych: Awake, alert, with orientation to person, place and time. Behavior, mood, and affect are within normal limits. 00:00 Abdomen/GI: Inspection: abdomen appears normal, Bowel sounds: normal, Palpation: soft, in all quadrants, moderate abdominal tenderness, in the left upper quadrant and left lower quadrant. Vital Signs: 06/02 21:14 BP 163 / 81; Pulse 87; Resp 20; Temp 98.2; Pulse Ox 97% ; Weight 145.15 kg; Height 5 kb3 ft. 10 in. (177.80 cm); Pain 8/10; 22:22 BP 135 / 67; Pulse 79; Resp 16 S; Pulse Ox 97% on R/A; as6 06/03 00:11 Temp 98.4; kb 00:25 BP 138 / 70; Pulse 81; Resp 19 S; Pulse Ox 97% on R/A; as6 06/02 21:14 Body Mass Index 45.91 (145.15 kg, 177.80 cm) kb3 MDM: 06/02 21:19 Patient medically screened. kb 06/03 00:00 Differential diagnosis: bowel obstruction, gastritis, non-specific abd pain. Data kb reviewed: vital signs, nurses notes. Data interpreted: Pulse oximetry: on room air is 97 %. Interpretation: normal. Counseling: I had a detailed discussion with the patient and/or guardian regarding: the historical points, exam findings, and any diagnostic results supporting the discharge/admit diagnosis, lab results, radiology results, the need for outpatient follow up, a family practitioner, to return to the emergency department if symptoms worsen or persist or if there are any questions or concerns that arise at home. ED course: History obtained from: Patient. 00:09 ED course: Management of the patient was discussed with the following: Dr Mayfield . kb 06/02 21:11 Order name: CBC with Diff; Complete Time: 22:15 kb3 06/02 21:11 Order name: CMP; Complete Time: 22:15 kb3 06/02 21:11 Order name: Lipase; Complete Time: 22:15 kb3 06/02 21:11 Order name: Urine Microscopic Only; Complete Time: 22:53 kb3 06/02 21:12 Order name: Blood Culture Adult (2) kb3 06/02 21:12 Order name: Lactate w/ 2H reflex if indic.; Complete Time: 22:53 kb3 06/02 21:11 Order name: CT Abd/Pelvis - IV Contrast Only kb3 06/02 21:11 Order name: IV Saline Lock; Complete Time: 21:48 kb3 06/02 21:11 Order name: Labs collected and sent; Complete Time: 21:48 kb3 06/02 21:11 Order name: Urine Dipstick-Ancillary (obtain specimen); Complete Time: 22:01 kb3 06/02 22:02 Order name: Urine Dipstick-Ancillary; Complete Time: 22:15 EDMS Administered Medications: 00:25 Drug: Dulcolax (bisacodyl) Delayed Release Tablet 10 mg Route: PO; as6 00:25 Follow up: Response: No adverse reaction as6 Disposition: 00:34 Co-signature as Attending Physician, Mele Mayfield MD I agree with the assessment and rt plan of care. Disposition Summary: 06/03/22 00:11 Discharge Ordered Location: Home kb Condition: Stable kb Diagnosis - Constipation kb - Abdominal pain, Generalized kb - Fever, unspecified kb Followup: kb - With: Emergency Department - When: As needed - Reason: Worsening of condition Followup: kb - With: Private Physician - When: 2 - 3 days - Reason: Recheck today's complaints, Continuance of care, Re-evaluation by your physician Discharge Instructions: - Discharge Summary Sheet kb - Constipation, Adult, [id number] kb - Abdominal Pain, Adult, [id number] kb Forms: - Medication Reconciliation Form kb - Thank You Letter kb - Work release form kb - Antibiotic Education kb - Prescription Opioid Use kb Signatures: Dispatcher [employer] EDMS Osiris Quiroz FNP-Rody FREGOSO-Jarad Chicas RN RN as6 Mckenna Mathew RN RN kb3 Mele Mayfield MD MD rt Corrections: (The following items were deleted from the chart) 06/02 21:16 21:15 PMHx: lower back pain with injecitons; kb3 kb3
--- NOTE | 2022-06-03 00:12 | ER ---
Nurse's Notes [facility] Name: Nicola Harvey Age: 57 yrs Sex: Male : 1965 Arrival Date: 06/02/2022 Time: 20:57 Bed 7 Private MD: Diagnosis: Constipation;Abdominal pain, Generalized;Fever, unspecified Presentation: 06/02 21:14 Chief complaint: Patient states: fever, nausea, constipation x2 days with associated kb3 abdominal pain. Coronavirus screen: Vaccine status: Patient reports receiving the 2nd dose of the covid vaccine. Client denies travel out of the [place] in the last 14 days. Ebola Screen: Patient negative for fever greater than or equal to 101.5 degrees Fahrenheit, and additional compatible Ebola Virus Disease symptoms Patient denies exposure to infectious person. Patient denies travel to an Ebola-affected area in the 21 days before illness onset. Initial Sepsis Screen: Does the patient meet any 2 criteria? No. Patient's initial sepsis screen is negative. Does the patient have a suspected source of infection? No. Patient's initial sepsis screen is negative. Risk Assessment: Do you want to hurt yourself or someone else? Patient reports no desire to harm self or others. Onset of symptoms was May 31, 2022. 21:14 Method Of Arrival: Ambulatory 3 21:14 Acuity: ANGE 3 kb3 Triage Assessment: 21:15 General: Appears in no apparent distress. Behavior is calm, cooperative. Pain: kb3 Complains of pain in abdomen. Historical: - Allergies: 21:15 Invokana; kb3 21:15 Jardiance; kb3 - PMHx: 21:15 Diabetes - IDDM; Hyperlipidemia; Hypertension; CHF; Obesity; Chronic back pain; kb3 - PSHx: 21:15 addenoidectomy; rhinoplasty; Cholecystectomy; kb3 - Immunization history:: Adult Immunizations up to date, Client reports receiving the 2nd dose of the Covid vaccine, Last tetanus immunization: unknown. - Social history:: Smoking status: Patient denies any tobacco usage or history of. Screenin:49 [facility] ED Fall Risk Assessment (Adult) Score/Fall Risk Level 0 - 2 = Low Risk. Abuse as6 screen: Denies threats or abuse. Denies injuries from another. Nutritional screening: No deficits noted. Tuberculosis screening: No symptoms or risk factors identified. Assessment: 21:49 General: Appears in no apparent distress. Behavior is calm, cooperative. Pain: as6 Complains of pain in abdomen. Neuro: Level of Consciousness is awake, alert, obeys commands, Oriented to person, place, time, situation. Cardiovascular: Capillary refill < 3 seconds Patient's skin is warm and dry. Respiratory: Respiratory effort is even, unlabored, Respiratory pattern is regular, symmetrical. GI: Reports lower abdominal pain, upper abdominal pain, constipation, nausea. 22:22 Reassessment: Patient appears in no apparent distress at this time. Patient and/or as6 family updated on plan of care and expected duration. Pain level reassessed. Patient is alert, oriented x 3, equal unlabored respirations, skin warm/dry/pink. Vital Signs: 21:14 BP 163 / 81; Pulse 87; Resp 20; Temp 98.2; Pulse Ox 97% ; Weight 145.15 kg; Height 5 kb3 ft. 10 in. (177.80 cm); Pain 8/10; 22:22 BP 135 / 67; Pulse 79; Resp 16 S; Pulse Ox 97% on R/A; as6 06/03 00:11 Temp 98.4; kb 00:25 BP 138 / 70; Pulse 81; Resp 19 S; Pulse Ox 97% on R/A; as6 06/02 21:14 Body Mass Index 45.91 (145.15 kg, 177.80 cm) kb3 ED Course: 06/02 20:57 Patient arrived in ED. as 21:05 Osiris Quiroz FNP-C [facility]. kb 21:05 Mele Mayfield MD is Attending Physician. kb 21:12 Jarad Hinkle, KRUNAL is Primary Nurse. as6 21:15 Triage completed. kb3 21:15 Arm band placed on right wrist. Patient placed in an exam room, on a stretcher. kb3 21:48 Bed in low position. Call light in reach. Side rails up X 1. as6 21:48 Inserted saline lock: 20 gauge in right antecubital area, using aseptic technique. as6 Blood collected. 21:48 Lactate w/ 2H reflex if indic. Sent. as6 21:48 CBC with Diff Sent. as6 21:48 CMP Sent. as6 21:49 Lipase Sent. as6 23:17 CT Abd/Pelvis - IV Contrast Only In Process Unspecified. EDMS 06/03 00:25 No provider procedures requiring assistance completed. IV discontinued, intact, as6 bleeding controlled, No redness/swelling at site. Pressure dressing applied. Administered Medications: 00:25 Drug: Dulcolax (bisacodyl) Delayed Release Tablet 10 mg Route: PO; as6 00:25 Follow up: Response: No adverse reaction as6 Medication: 06/02 21:49 VIS not applicable for this client. as6 Outcome: 06/03 00:11 Discharge ordered by . kb 00:25 Discharged to home ambulatory. as6 00:25 Condition: stable 00:25 Discharge instructions given to patient, Instructed on discharge instructions, follow up and referral plans. Demonstrated understanding of instructions, follow-up care. 00:26 Patient left the ED. as6 Signatures: Dispatcher [employer] EDVA Osiris Quiroz, ZENOBIA-C DEPARTMENT HELPER-Rima Bailey as Jarad Hinkle, KRUNAL RN as6 Mckenna Mathew RN RN kb3 Corrections: (The following items were deleted from the chart) 06/02 21:16 21:15 PMHx: lower back pain with injecitons; kb3 kb3
[2022-06-03] MEDS ORDERED: BISACODYL E.C. 5 MG TAB PO ONE (00:19)
[2022-06-03 00:44] VITALS: O2SAT 97
[2022-06-03 00:51] VITALS: TEMP 98.4
[2022-06-03 00:52] VITALS: BP 138/70
--- NOTE | 2022-06-04 10:10 | RAD REPORT ---
EXAM DESCRIPTION: CT - Abdomen Pelvis W Contrast - 06/03/2022 6:43 am CLINICAL HISTORY: 57 years, Male, abd pain COMPARISON: 10/02/2021 TECHNIQUE: Contrast-enhanced images of the abdomen and pelvis were performed utilizing 5 mm slice th ickness at 5 mm interval reconstruction from the lung bases to the ischial tuberosities after the adm inistration of IV contrast. In addition multiplanar reformats in the coronal and sagittal plane were obtained and reviewed. This exam was performed according to our departmental dose-optimization protocol, which includes auto mated exposure control, adjustment of the mA and/or kV according to patient size and/or use of iterat liliana reconstruction technique. FINDINGS: The lung bases demonstrate to be clear. The liver, pancreas, spleen and adrenal glands demonstrate to be unremarkable, no focal lesions are n oted. Surgical clips within the gallbladder fossa correspond to previous cholecystectomy The kidneys demonstrate normal uptake of contrast media. No evidence for nephrolithiasis and/or hydro nephrosis. There is minimal perinephric haziness perhaps suggesting fluid/or inflammation Grossly the unopacified stomach, small bowel and large bowel demonstrate to be within normal limits. There is no evidence for bowel dilatation/or free air. There is mild fecal stasis. The appendix was not visualized. The urinary bladder demonstrate to be unremarkable. The prostate gland is normal. The aorta demon strate to be normal. There is no retroperitoneal lymphadenopathy. There is no evidence for ascites/ or significant abnormal fluid collections. There is mild multilevel degenerative disc disease. IMPRESSION: Mild fecal stasis. Minimal perinephric haziness perhaps suggesting fluid/or inflammation. Status post cholecystectomy. Electronically signed by: Deangelo Colbert MD 06/02/2022 11:50 PM [employer] Due to temporary technical issues with the PACS/Fluency reporting system, reports are being signed by the in house radiologists without review as a courtesy to insure prompt reporting. The interpreting radiologist is fully responsible for the content of the report.
== END 2022-06-03 00:26 | disposition home or self-care (01) ==
LOC: ER 20:54
DX: K59.00 Constipation, unspecified (principal); R50.9 Fever, unspecified; R10.84 Generalized abdominal pain; I10 Essential (primary) hypertension; Z88.8 Allergy status to other drugs, medicaments and biological substances
CPT/HCPCS: 87040 ×2; 85025; 36415; 83605; 83690; 80053; 74177; 99284; Q9967; 81003; 81015

== ENCOUNTER 2022-08-15 15:51 | Emergency (ER) | payer BC ==
--- OUTSIDE RECORDS SUMMARY | 2022-08-15 15:58 | XMS REPORT | Continuity of Care Document ---
:1965 Author Organization [facility] t Address [address] [place] [address] [address] [place] [address] Care Team Providers Name Role Phone Hope Barraza Primary Care Physician GC_EDEC_Hayes_A Attending Clinician Unavailable Ellen Pantoja Attending Clinician [phone] PAUL SLOAN Attending Clinician Unavailable Nurse, Adc Pob Immunization Attending Clinician Unavailable Paul Sloan DO Attending Clinician JAZMIN SARMIENTO Attending Clinician Unavailable Neel Garcia Attending Clinician Unavailable CHINO HEALY Attending Clinician Unavailable Only, Adc Test Attending Clinician Unavailable Doctor Unassigned, Zenda Attending Clinician Unavailable Anupam Atkins MD Attending Clinician Dulce Lau Attending Clinician Camacho Jesus Attending Clinician Manjinder Kowalski Attending Clinician MADI FAITH Attending Clinician Unavailable TAMMY BETANCOURT Attending Clinician Unavailable GC_EDEC_Hayes_A Admitting Clinician Unavailable HOPE BARRAZA Admitting Clinician Unavailable MADI FAITH Admitting Clinician Unavailable TAMMY BETANCOURT Admitting Clinician Unavailable Payers Payer Name Policy Type Policy Number Effective Date Expiration Date S felecia [place] [id number] 2022 00:00:00 [place] (PPO[place] AETNA (POS) [id number] 2021 00:00:00 [place] OF [place] - [id number] 2019 00:00:00 OUT OF STATE BLUE CROSS-[place]: [id number] ANTH BLUE CROSS (PPO) Problems Condition Condition Condition Status Onset Resolution Last Treating Co mments Source Name Details Category Date Date Treatment Clinician Date Hyperglyce Hyperglyce Problem Active P rivia judy due to judy Due to 09-24 Me dical type 2 Type 2 00:00: diabetes Diabetes 00 mellitus Mellitus Mixed Mixed Problem Active [facility] hyperlipid Hyperlipid - Me dical emia emia 00:00: 00 Neuropathy Neuropathy Problem Active P rivia 4-22 Medical 00:00: 00 Essential Essential Problem Active Candice via hypertensi Hypertensi -22 Me dical on on 00:00: 00 Congestive Congestive Problem Active P rivia heart Heart 22 Medical failure Failure 00:00: 00 Steatosis Steatosis Problem Active Candice via of liver of Liver - Medica l 00:00: 00 Type II Type II Problem Active [facility] diabetes Diabetes 09-13 Medica l mellitus Mellitus 00:00: uncontroll Uncontroll 00 ed ed Cellulitis Cellulitis Disease Active U nivers of right of right 1-31 ity of lower lower 00:00: [place] extremity extremity 00 [facility] sanjiv Branch Cellulitis Cellulitis Disease Active 2017-05 [...] Diagnosis Active 2016-052017-04-29 Me moria STENOSIS STENOSIS 1- 09:02:00 l Active 00:00: Mitesh 04/08/[address] [facility] [place], [place] M54.16 M54.16 Diagnosis Active 2016-052017-03-19 Me moria Active 0 10:29:00 l 03/19/2017 00:00: Gabo thomas [address] Abdominal Problem Resolve 2017-12-07 M emoria pain Abdominal d 00:03:51 l (finding) pain [place] (finding) Resolved Problem 12/07/2017 [facility] Chest pain Chest Problem Resolve 2017-12-07 Memoria (finding) pain d 00:03:51 l (finding) Mitesh Resolved Problem 12/07/2017 [facility] Chronic Chronic Problem Resolve 2017-12-07 M emoria back pain back pain d 00:03:51 l (disorder) (disorder) He rmann Resolved Problem 12/07/2017 [facility] Diabetes Diabetes Problem Active 2017-12-07 Memoria mellitus mellitus 00:03:51 l (disorder) (disorder) He rmann Active Problem 12/07/2017 [facility] Hyperchole Hyperchol Problem Active 2017-12-07 Memoria sterolemia esterolemi 00:03:51 l (disorder) eyad thomas (disorder) Active Problem 12/07/2017 [facility] Hypertensi Hypertens Problem Active 2017-12-07 Memoria ve liliana 00:03:51 l disorder, disorder, Herm chacorta systemic systemic arterial arterial (disorder) (disorder) Active Problem 12/07/2017 [facility] Morbid Morbid Problem Active 2017-12-07 Chuck jack obesity obesity 00:03:51 l (disorder) (disorder) He rmann Active Problem 12/07/2017 [facility] Prolapsed Prolapsed Problem Active 2017-12-07 Memoria lumbar lumbar 00:03:51 l interverte interverte He rmann bral disc bral disc (disorder) (disorder) Active Problem 12/07/2017 [facility] Allergies, Adverse Reactions, Alerts Allergy Allergy Status Severity Reaction(s) Onset Inactive Treating Comm ents Source Name Type Date Date Clinician No Known DA Active U 2020-0 [facility] 02-01 [facility] No Known DA Active U [facility] Allergie 02-01 [facility] 00:00: [facility] 00 [facility] NO KNOWN Drug Active Univers ALLERGIE Class ity of S [facility] Social History Social Habit Start Date Stop Date Quantity Comments Source Alcohol intake 2018-07-21 2018-07-21 Current University of 00:00:00 00:00:00 non-drinker of [facility] alcohol Branch (finding) Tobacco use and 2018-04-09 2018-04-09 Never used Universit y of exposure 00:00:00 00:00:00 [facility] Sex [birth year] Universit y of 00:00:00 00:00:00 [facility] [place] [facility] Smoking Status Start Date Stop Date Source Never Smoker [facility] Social History 2017-06-05 17:47:50 2017-06-05 17:47:50 [facility] Medications Ordered Filled Start Stop Current Ordering Indication Dosage Frequency Signature Comments Components Source Medication Medication Date Date Medication? Clinician (SIG) Name Name insulin 2018-05 Yes [id number] 60U inject 60 Univers regular 0-24 Units ity of human 500 00:00: under the Varinder as unit/mL 00 skin 3 Medical injection (three) Branch times daily before meals. E11. 65 Insulin Yes Each 3 Univers Syringe-Nee 7-03 (three) ity o f dle U-100 1 00:00: times [place] mL 31 gauge 00 daily Medical x 5/16 Syrg before Branch meals. E11.65 insulin Yes [id number] 1{each} 1 Each 3 Univers U-500 5-28 (three) ity of syringe-nee 00:00: times [place] dle 1/2 mL 00 daily Medical 31 gauge x before Branch " Syrg meals. E11.65 metformin Yes [id number] 1000mg Take 2 Univers ER 500 mg 5-28 tablets by ity of 24 hr 00:00: mouth 2 [place] tablet 00 (two) Medical times Branch daily with meals. glimepiride 2018- Yes [id number] 4mg Take 1 Univers 4 mg tablet 5-28 tablet by ity of 00:00: mouth 2 [place] 00 (two) Medical times Branch daily with meals. pravastatin Yes [id number] 20mg Take 1 Univers 20 mg 5-28 tablet by ity of tablet 00:00: mouth at [place] 00 bedtime. Medical Branch metoprolol Yes 50mg Take 50 mg U nivers tartrate 50 2-01 by mouth 2 it y of mg tablet 17:31: (two) [place] 53 times Medical daily. Branch lisinopril Yes 40mg Take 40 mg U nivers 40 mg 2-01 by mouth ity of tablet 17:31: daily. [place] [address] Medical Branch amLODIPine Yes 5mg Take 5 mg Un bria 5 mg tablet 2-01 by mouth ity of 17:31: daily. [place] [address] Medical Branch traMADOL 50 Yes [id number] 50mg Take 1 Univers mg tablet 06-26 [id number] tablet by ity of 00:00: mouth 2 [place] 00 (two) Medical times Branch daily as needed for Pain (scale 4-6) or Pain (scale 7-10). hydroCHLORO 2017-05 Yes [id number] 25mg Take 1 Univers thiazide 25 2-14 tablet by ity of mg tablet 00:00: mouth [place] 00 daily. Medical Branch exenatide 2017-05 Yes [id number] 2mg inject 2 Univers microsphere 1-14 mg [...] , # 150 tab, 2 Refill(s), Pharmacy: [facility] diclofenac 2016-05 Yes 75 mg = 1 Me moria sodium 75 2-01 tab, PO, l mg oral 14:52: BID, PRN Gabo n enteric 00 Pain Score coated, 7-10, # 60 delayed-rel tab, 2 ease tablet Refill(s), Pharmacy: [facility] Cyclobenzap 2016-05 Yes 10 mg = 1 M emoria rine 2-01 tab, PO, l hydrochlori 14:52: BID, # 60 H ermann de 10 MG 00 tab, 2 Oral Tablet Refill(s), [Flexeril] Pharmacy: [place] [address] amitriptyli 2016-05 Yes 10 mg = 1 M emoria ne 10 mg 2-01 tab, PO, l oral tablet 14:52: Bedtime, 4 [place] 00 tabs at bedtime for 1 week then 5 tabs at bedtime thereafter , # 150 tab, 2 Refill(s), Pharmacy: [place] [address] diclofenac 2016-05 Yes 75 mg = 1 Me moria sodium 75 2-01 tab, PO, l mg oral 14:52: BID, PRN Gabo n enteric 00 Pain Score coated, 7-10, # 60 delayed-rel tab, 2 ease tablet Refill(s), Pharmacy: [place] [address] Cyclobenzap 2016-05 Yes 10 mg = 1 M emoria rine 2-01 tab, PO, l hydrochlori 14:52: BID, # 60 H ermann de 10 MG 00 tab, 2 Oral Tablet Refill(s), [Flexeril] Pharmacy: [place] [address] amitriptyli 2016-05 Yes 10 mg = 1 M emoria ne 10 mg 2-01 tab, PO, l oral tablet 14:52: Bedtime, 4 Mitesh 00 tabs at bedtime for 1 week then 5 tabs at bedtime thereafter , # 150 tab, 2 Refill(s), Pharmacy: [place] [address] diclofenac 2016-05 Yes 75 mg = 1 Me moria sodium 75 2-01 tab, PO, l mg oral 14:52: BID, PRN Gabo n enteric 00 Pain Score coated, 7-10, # 60 delayed-rel tab, 2 ease tablet Refill(s), Pharmacy: [place] [address] Cyclobenzap 2016-05 Yes 10 mg = 1 M emoria rine 2-01 tab, PO, l hydrochlori 14:52: BID, # 60 H ermann de 10 MG 00 tab, 2 Oral Tablet Refill(s), [Flexeril] Pharmacy: [place] [id number] Sodium 2016-05 Yes 4.2 mL, Memoria Chloride 2-01 Route: l 14:50: EPIDURAL, Mitesh 00 Dosing Weight 141.364, kg, ONCE, (Preservat liliana Free), Start date: 04/25/17 8:50:00 DIRECTOR OF RECRUITMENT AND ADMISSIONS, Stop date: 04/25/17 8:50:00 DIRECTOR OF RECRUITMENT AND ADMISSIONS Lidocaine 2017- Yes 3 mL, Memoria Hydrochlori 2- Route: l de 10 MG/ML 14:50: SUB-Q, Herm chacorta Injectable 00 Dosing Solution Weight 141.364, kg, ONCE, (Preservat liliana Free), Start date: 04/25/17 8:50:00 DIRECTOR OF RECRUITMENT AND ADMISSIONS, Stop date: 04/25/17 8:50:00 DIRECTOR OF RECRUITMENT AND ADMISSIONS Omnipaque 2017- Yes 2 mL, Memoria 300 2- Route: l 14:50: EPIDURAL, Mitesh 00 Dosing Weight 141.364, kg, ONCE, (Preservat liliana Free), Start date: 04/25/17 8:50:00 DIRECTOR OF RECRUITMENT AND ADMISSIONS, Stop date: 04/25/17 8:50:00 DIRECTOR OF RECRUITMENT AND ADMISSIONS Dexamethaso 2017- Yes 8 mg, Memor ia ne 2- Route: l 14:50: EPIDURAL, Mitesh 00 ONCE, Dosing Weight 141.364, kg, (Preservat liliana Free), Start date: 04/25/17 8:50:00 DIRECTOR OF RECRUITMENT AND ADMISSIONS, Stop date: 04/25/17 8:50:00 DIRECTOR OF RECRUITMENT AND ADMISSIONS Bupivacaine 2017- Yes 2 mL, Memor ia Hydrochlori 2- Route: l de 2.5 14:50: EPIDURAL, Gabo n MG/ML 00 Dosing Injectable Weight Solution 141.364, kg, ONCE, (Preservat liliana Free), Start date: 04/25/17 8:50:00 DIRECTOR OF RECRUITMENT AND ADMISSIONS, Stop date: 04/25/17 8:50:00 DIRECTOR OF RECRUITMENT AND ADMISSIONS Sodium 2017-1 Yes 4.2 mL, Memoria Chloride 2- Route: l 14:50: EPIDURAL, [place] 00 Dosing Weight 141.364, kg, ONCE, (Preservat liliana Free), Start date: 04/25/17 8:50:00 DIRECTOR OF RECRUITMENT AND ADMISSIONS, Stop date: 04/25/17 8:50:00 DIRECTOR OF RECRUITMENT AND ADMISSIONS Lidocaine 2017-1 Yes 3 mL, Memoria Hydrochlori 2-01 Route: l de 10 MG/ML 14:50: SUB-Q, Herm chacorta Injectable 00 Dosing Solution Weight 141.364, kg, ONCE, (Preservat liliana Free), Start date: 04/25/17 8:50:00 DIRECTOR OF RECRUITMENT AND ADMISSIONS, Stop date: 04/25/17 8:50:00 DIRECTOR OF RECRUITMENT AND ADMISSIONS Omnipaque 2017-1 Yes 2 mL, Memoria 300 2-01 Route: l 14:50: EPIDURAL, Mitesh 00 Dosing Weight 141.364, kg, ONCE, (Preservat liliana Free), Start date: 04/25/17 8:50:00 DIRECTOR OF RECRUITMENT AND ADMISSIONS, Stop date: 04/25/17 8:50:00 DIRECTOR OF RECRUITMENT AND ADMISSIONS Dexamethaso 2017- Yes 8 mg, Memor ia ne 2-01 Route: l 14:50: EPIDURAL, [place] 00 ONCE, Dosing Weight 141.364, kg, (Preservat liliana Free), Start date: 04/25/17 8:50:00 DIRECTOR OF RECRUITMENT AND ADMISSIONS, Stop date: 04/25/17 8:50:00 DIRECTOR OF RECRUITMENT AND ADMISSIONS Bupivacaine 2017- Yes 2 mL, Memor ia Hydrochlori 2-01 Route: l de 2.5 14:50: EPIDURAL, Gabo n MG/ML 00 Dosing Injectable Weight Solution 141.364, kg, ONCE, (Preservat liliana Free), Start date: 04/25/17 8:50:00 DIRECTOR OF RECRUITMENT AND ADMISSIONS, Stop date: 04/25/17 8:50:00 DIRECTOR OF RECRUITMENT AND ADMISSIONS Sodium 2017-1 Yes 4.2 mL, Memoria Chloride 2-01 Route: l 14:50: EPIDURAL, [place] 00 Dosing Weight 141.364, kg, ONCE, (Preservat liliana Free), Start date: 04/25/17 8:50:00 DIRECTOR OF RECRUITMENT AND ADMISSIONS, Stop date: 04/25/17 8:50:00 DIRECTOR OF RECRUITMENT AND ADMISSIONS Lidocaine 2017- Yes 3 mL, Memoria Hydrochlori 2-01 Route: l de 10 MG/ML 14:50: SUB-Q, Herm chacorta Injectable 00 Dosing Solution Weight 141.364, kg, ONCE, (Preservat liliana Free), Start date: 04/25/17 8:50:00 DIRECTOR OF RECRUITMENT AND ADMISSIONS, Stop date: 04/25/17 8:50:00 DIRECTOR OF RECRUITMENT AND ADMISSIONS Omnipaque 2017-1 Yes 2 mL, Memoria 300 2-01 Route: l 14:50: EPIDURAL, Mitesh 00 Dosing Weight 141.364, kg, ONCE, (Preservat liliana Free), Start date: 04/25/17 8:50:00 DIRECTOR OF RECRUITMENT AND ADMISSIONS, Stop date: 04/25/17 8:50:00 DIRECTOR OF RECRUITMENT AND ADMISSIONS Dexamethaso 2017- Yes 8 mg, Memor ia ne 2-01 Route: l 14:50: EPIDURAL, [place] 00 ONCE, Dosing Weight 141.364, kg, (Preservat liliana Free), Start date: 04/25/17 8:50:00 DIRECTOR OF RECRUITMENT AND ADMISSIONS, Stop date: 04/25/17 8:50:00 DIRECTOR OF RECRUITMENT AND ADMISSIONS Bupivacaine 2017-1 Yes 2 mL, Memor ia Hydrochlori 2-01 Route: l de 2.5 14:50: EPIDURAL, Gabo n MG/ML 00 Dosing Injectable Weight Solution 141.364, kg, ONCE, (Preservat liliana Free), Start date: 04/25/17 8:50:00 DIRECTOR OF RECRUITMENT AND ADMISSIONS, Stop date: 04/25/17 8:50:00 DIRECTOR OF RECRUITMENT AND ADMISSIONS cyclobenzap cyclobenzap No cyclobenza [facility] rine 10 [...] solution with with with applicator applicator applicator [facility], [facility], [place] [address] [place] [address] [place] [address] APPLY TO APPLY TO APPLY TO AFFECTED [...] gauge mL 31 gauge mL 31 x 1564" x 1564" gauge x USE USE " USE DIRECTED [...] with with applicator applicator applicator ANTWAN MONCADA, [facility] [place] [address] [place] [address] [place] [address] APPLY TO APPLY TO APPLY TO AFFECTED [...] 31 gauge mL 31 x 15/64" x " gauge x USE USE " [...] solution with with with applicator applicator applicator [place], [place], [place] [address] [place] [address] [place] [address] APPLY TO APPLY TO APPLY TO AFFECTED [...] daily total daily total 125 units max 330 max 330 before units for units for dinner 30 days 30 days daily total max 330 units for 30 days hydralazine hydralazine No hydralazin [facility] 10 [...] solution with with with applicator applicator applicator NICKYKATIE ANTWAN, [facility] [place] [address] [place] [address] [place] [address] APPLY TO APPLY TO APPLY TO AFFECTED [...] by route with route with oral route meals for meals for with meals 90 days. 90 days. for 90 days. metoprolol metoprolol No metoprolol [facility] tartrate 50 [...] daily total daily total 125 units max 330 max 330 before units for units for dinner 30 days 30 days daily total max 330 units for 30 days hydralazine hydralazine No hydralazin [facility] 10 [...] solution with with with applicator applicator applicator [place], [place], [place] [address] [place] [address] [place] [address] APPLY TO APPLY TO APPLY TO AFFECTED [...] by route with route with oral route meals for meals for with meals 90 days. 90 days. for 90 days. metoprolol metoprolol No metoprolol [facility] tartrate 50 [...] gauge mL 31 gauge mL 31 x 1564" x 15" gauge x USE USE " USE DIRECTED [...] Completed Unive rsity of PFIZER VACCINE 00:00:00 [facility] SARS-COV-2 COVID-19 2020-08-24 Completed Unive rsity of PFIZER VACCINE 00:00:00 [facility] SARS-COV-2 COVID-19 2020-08-03 Completed Unive rsity of PFIZER VACCINE 00:00:00 [facility] Influenza Virus 2018-06-26 Completed Universit y of Vaccine Quad .5 mL 00:00:00 [facility] MO Branch Vital Signs Vital Name Observation Time Observation Value Comments Source BP Diastolic 2022-04-11 00:00:00 70 mm[Hg] Rudi Polo edical Height 2022-04-11 00:00:00 70 [in_i] Rudi Polo edical BMI (Body Mass Index) 2022-04-11 00:00:00 [facility]5 [facility] Systolic 2022-04-11 00:00:00 130 mm[Hg] Rudi Polo edical Body Weight 2022-04-11 00:00:00 345 [lb_av] Rudi Polo edical BP Diastolic 2021-09-24 00:00:00 60 mm[Hg] Rudi Polo edical Height 2021-09-24 00:00:00 70 [in_i] Rudi Polo edical BMI (Body Mass Index) 2021-09-24 00:00:00 46.9 kg/m2 [facility] BP Systolic 2021-09-24 00:00:00 140 mm[Hg] Rudi Polo edical Body Weight 2021-09-24 00:00:00 327 [lb_av] Rudi Polo edical BP Diastolic 2020-09-13 00:00:00 80 mm[Hg] Rudi Polo edical Height 2020-09-13 00:00:00 70 [in_i] Rudi Polo edical BMI (Body Mass Index) 2020-09-13 00:00:00 45.3 kg/m2 [facility] BP Systolic 2020-09-13 00:00:00 142 mm[Hg] Rudi Polo edical Body Weight 2020-09-13 00:00:00 316 [lb_av] Rudi Polo edical Height 2017-06-05 17:46:00 177.8 cm [facility] [place] Weight 2017-06-05 17:46:00 [facility] Mitesh BMI Calculated 2017-06-05 17:46:00 Memori al Mitesh Systolic (mm Hg) 2017-06-05 17:46:00 Chuck rial [place] Diastolic (mm Hg) 2017-06-05 17:46:00 Mem orial Mitesh Temperature Oral (F) 2017-06-05 17:46:00 99.3 F [facility] [place] Heart Rate 2017-06-05 17:46:00 [facility] [place] BMI Calculated 2017-04-29 15:23:00 Memori al [place] Weight 2017-04-29 15:23:00 [facility] Mitesh Height 2017-04-29 15:23:00 177.8 cm [facility] Mitesh Heart Rate 2017-04-29 15:00:00 [facility] [place] Respitory Rate 2017-04-29 15:00:00 Memori al [place] Systolic (mm Hg) 2017-04-29 15:00:00 Chuck rial [place] Diastolic (mm Hg) 2017-04-29 15:00:00 Mem orial Mitesh Procedures Procedure Date / Time Performing Clinician Source Performed SARS-COV-2 COVID-19 2021-04-12 22:54:16 Doctor Unassigned, No [facility] [place] VACCINE,0.3ML,IM Name Medical Branch (MembraneX) Drainage of Skin 2019-11-02 00:00:00 [facility] Medi sanjiv Abscess Myelography via lumbar 2017-04-29 16:14:00 Memor ial [place] injection, including radiological supervision and interpretation; thoracic Myelography via lumbar 2017-04-29 16:14:00 Memor ial Mitesh injection, including radiological supervision and interpretation; lumbosacral NJX INTERLAMINAR 2017-04-25 14:50:[facility] Lumbar epidural [facility] Mitesh injection Lumbar epidural [facility] Nose [facility] Plan of Care Planned Activity Planned Date Details Comments Source Diagnostic Test Pending 2022-04-11 00:00:00 glucose, [facility] fingerstick, blood [code = glucose, fingerstick, blood] Future Appointment 2022-10-07 00:00:00 [facility] Cotter, [address]; [facility] [address], [place] [address] Encounters Start End Encounter Admission Attending Care Care Encounter Source Date/Time Date/Time Type Type Clinicians Facility Department ID 2022-07-15 2022-07-15 Outpatient GC_EDEC_Hay PRIV PRIV [id number] [facility] 00:00:00 00:00:00 es_A [id number] Medica l 2022-07-15 2022-07-15 Outpatient GC_EDEC_Hay PRIV PRIV [id number] [facility] 00:00:00 00:00:00 es_A [id number] Medica l 2022-07-15 2022-07-15 Tocurra [facility]:00[facility]00 [facility] GC_EDEC_Pas GLUE JOINTER FEEDER-WEBBING WEAVER-C: terri Au Office* Anni Mack, [facility] [address], [place] [address] , Ph. 2022-07-14 2022-07-14 Outpatient GC_EDEC_Hay PRIV PRIV [id number] [facility] 00:00:00 00:00:00 es_A [id number] Medica l 2022-04-11 2022-04-11 Outpatient GC_EDEC_Hay PRIV PRIV [id number] [facility] 00:00:00 00:00:00 es_A [id number] Medica l 2022-04-11 2022-04-11 Tocurra [facility] [id number] [facility] 00:00:00 00:00:00 [facility]ai GC_EDEC_Pas GLUE JOINTER FEEDER-WEBBING WEAVER-C: terri Au Office* Anni Gutierrezy, [facility] [address], [place] [address] , Ph. 2022-04-10 2022-04-10 Outpatient GC_EDEC_Hay PRIV PRIV [id number] [facility] 00:00:00 00:00:00 es_A [id number] Medica l 2022-01-04 2022-01-04 Outpatient GC_EDEC_Hay PRIV PRIV [id number] [facility] 00:00:00 00:00:00 es_A [id number] Medica l 2021-12-31 2021-12-31 Outpatient GC_EDEC_Hay PRIV PRIV [id number] [facility] 00:00:00 00:00:00 es_A [id number] Medica l 2021-09-24 2021-09-24 Outpatient GC_EDEC_Hay PRIV PRIV [id number] [facility] 11:24:00 11:24:00 es_A [id number] Medica l 2021-09-24 2021-09-24 Outpatient Kit PRIV PRIV [id number] 00:00:00 00:00:00 Ellen [id number] [facility] [id number] 2021-09-24 2021-09-24 Ellen PRIV [place] - [facility] 00:00:00 00:00:[address] [facility] kaila Pantoja MD: GC_EDEC_Pas [address] [facility] Office[address], [facility] [address], [place] [address] , Ph. 2021-09-20 2021-09-20 Outpatient GC_EDEC_Hay PRIV PRIV [id number] [facility] 03:44:00 03:44:00 es_A [id number] Medica l 2021-04-12 2021-04-12 Outpatient Florencio SLOAN [facility] [id number] 16:30:00 16:30:00 PAUL simon of [facility] [place] [facility] 2021-04-12 2021-04-12 Imm/Inj Nurse, Adc Pob Immunization [facility] [id number] Univers 16:14:33 16:14:42 Visit Paul Sloan [id number] .10 [facility] [id number] Elizabeth zavala PROFESSIO [id number] [address] 2021-01-16 2021-01-16 Outpatient GC_EDEC_Hay PRIV PRIV [id number] [facility] 07:11:00 07:11:00 es_A [id number] Medica l 2020-09-25 2020-09-25 Outpatient GC_EDEC_Hay PRIV PRIV [id number] [facility] 02:20:00 02:20:00 es_A [id number] Medica l 2020-09-19 2020-09-19 Outpatient GC_EDEC_Hay PRIV PRIV [id number] [facility] 02:41:00 02:41:00 es_A [id number] Medica l 2020-09-13 2020-09-13 Outpatient GC_EDEC_Hay PRIV PRIV [id number] [facility] 06:01:00 06:01:00 es_A [id number] Medica l 2020-09-13 2020-09-13 Outpatient Kit, PRIV PRIV [id number] 00:00:00 00:00:00 [facility] [id number] [facility] [id number] 2020-09-13 2020-09-13 Ellen [facility] 21 [facility] 00:00:00 00:00:[address] [facility] kaila Pantoja MD: GC_EDEC_[facility] [place] [address] [facility] Office* [facility], [address] [address] , Ph. 2020-09-11 2020-09-11 Outpatient GC_EDEC_Hay PRIV PRIV [id number] [facility] 12:06:00 12:06:00 es_A [id number] Medica l 2020-09-06 2020-09-06 Outpatient GC_EDEC_Hay PRIV PRIV [id number] [facility] 06:40:00 06:40:00 es_A [id number] Medica l 2020-08-24 2020-08-24 Outpatient Florencio SARMIENTO, [facility] [id number] Univers 14:40:00 14:40:00 JAZMIN [facility] 2020-08-03 2020-08-03 Outpatient [facility] [id number] Univers 14:40:00 14:40:00 [facility] 2020-02-08 2020-02-08 Inpatient PILI Garcia, [facility] DAYS [id number] [facility] 08:00:00 08:00:00 Neel thomas [facility] 2020-02-02 2020-02-02 Outpatient KRYS MASONN [facility] [id number] Univers 11:30:00 11:30:00 ity [facility] 2020-02-02 2020-02-02 Laboratory Only, Adc [facility] [id number] 11:14:48 11:29:48 Only Test [place] [id number] [place] [id number] [place] [id number] 2020-02-02 2020-02-02 Orders Doctor DULCE [id number] 00:00:00 00:00:00 Only Unassigned, KIMBER[facility] [id number] [facility] [id number] 2020-01-05 2020-01-05 Telephone Atkins, [facility] [id number] 00:00:00 00:00:00 [place] [id number] [place] [id number] Professio [id number] [address] 2019-06-16 2019-06-16 Telephone Atkins, [facility] [id number] 00:00:00 00:00:00 [place] [id number] [place] [id number] Professio [id number] [address] 2019-06-09 2019-06-09 Telephone Atkins, [facility] [id number] 00:00:00 00:00:00 [place] [id number] [place] [id number] Professio [id number] [address] 2019-02-10 2019-02-10 Telephone Atkins, [facility] [id number] 00:00:00 00:00:00 [place] [id number] [place] [id number] Professio [phone] [place] [address] [facility] 2018-12-13 2018-12-13 Orders Doctor DULCE [id number] 00:00:00 00:00:00 Only Unassigned, KIMBERLY 350.1.13.10 [place] [facility] 4.2.7.2.686 [id number] 2018-11-27 2018-11-27 Refill Atkins, KIMBERLYN [id number] 00:00:00 00:00:00 [place] Robert 350.1.13.10 [place] 4.2.7.2.686 Profjaymeio [id number] [address] 2017-12-04 2017-12-04 Ambulatory nullFlavo [facility] [id number] [facility] 15:30:00 15:30:00 Pre-Reg r Clinic [address] 2017-12-04 2017-12-04 Ambulatory nullFlavo [facility] [id number] [facility] 15:30:00 15:30:00 Pre-Reg r Clinic [address] 2017-12-04 2017-12-04 Outpatient MHIE MHIE [id number] [facility] 10:30:00 10:30:[address] [place] [address] 2017-12-04 2017-12-04 Outpatient Dulce Lau MHMISCHER MHMISCHER [id number] 10:30:00 10:30:00 [facility] 2017-06-06 2017-06-08 Phone nullFlavo [facility] [id number] Memoria 20:31:00 05:59:59 Message r Clinic [address] 2017-06-06 2017-06-08 Phone nullFlavo [facility] [id number] Memoria 20:31:00 05:59:59 Message r Clinic [address] 2017-06-06 2017-06-07 Outpatient MHMISCHER MHMISCHER [id number] 14:31:00 23:59:59 2017-06-06 2017-06-07 Outpatient MHMISCHER MHMISCHER [id number] 14:31:00 23:59:59 09 2017-06-05 2017-06-06 Outpatient nullFlavo [facility] [id number] Mem[facility] 17:30:00 05:59:59 r Clinic [facility] 05 [facility] 2017-06-05 2017-06-06 Outpatient nullFlavo [facility] [id number] Memoria 17:30:00 05:59:59 r Clinic TM 05 [facility] 2017-06-05 2017-06-05 Outpatient Dulce Lau MISCHER MHMISCHER [id number] 11:30:00 23:59:59 C 2017-06-05 2017-06-05 Outpatient Dulce Lau MISCHER MHMISCHER [id number] 11:30:00 23:59:59 C 2017-06-05 2017-06-05 Outpatient MHIE MHIE [id number] [facility] 11:30:00 11:30:00 05 [facility] 2017-04-30 2017-05-02 Phone nullFlavo [facility] [id number] Memoria 17:52:00 05:59:59 Message r Clinic [facility] 08 [facility] 2017-04-30 2017-05-02 Phone nullFlavo [facility] [id number] Memoria 17:52:00 05:59:59 Message r [facility] 08 [facility] 2017-04-30 2017-05-01 Outpatient MHMISCHER MISCHER [id number] 11:52:00 23:59:59 08 2017-04-29 2017-04-30 Outpatient nullFlavo [facility] [id number] Mem[facility] 14:20:00 05:59:00 r [place] 00 [facility] 2017-04-29 2017-04-30 Outpatient nullFlavo [facility] [id number] Memoria 14:20:00 05:59:00 r [place] 00 [facility] 2017-04-29 2017-04-29 Outpatient Dulce Lau [facility] [id number] 08:20:00 23:59:00 C 2017-04-25 2017-04-26 Outpatient nullFlavo [facility] [id number] Memoria 14:00:00 05:59:59 r [facility] 06 [facility] 2017-04-25 2017-04-26 Outpatient nullFlavo [facility] [id number] Memoria 14:00:00 05:59:59 r Clinic [facility] 06 [facility] 2017-04-24 2017-04-26 Phone nullFlavo [facility] [id number] Memoria 22:30:00 05:59:59 Message r Clinic [facility] 07 [facility] 2017-04-24 2017-04-26 Phone nullFlavo [facility] [id number] Memoria 22:30:00 05:59:59 Message r Clinic [facility] 07 [facility] 2017-04-24 2017-04-26 Phone nullFlavo [facility] [id number] Memoria 22:27:00 05:59:59 Message r Clinic [facility] 06 [facility] 2017-04-24 2017-04-26 Phone nullFlavo [facility] [id number] Memoria 22:27:00 05:59:59 Message r Clinic [facility] 06 [facility] 2017-04-25 2017-04-25 Outpatient Edin MHMISCHER MHMISCHER [id number] 08:00:00 23:59:59 Camacho Cook 06 2017-04-24 2017-04-25 Outpatient MHMISCHER MHMISCHER [id number] 16:30:00 23:59:59 07 2017-04-24 2017-04-25 Outpatient MHMISCHER MHMISCHER [id number] 16:27:00 23:59:59 06 2017-04-25 2017-04-25 Outpatient MHIE MHIE [id number] Memoria 08:00:00 08:00:00 06 [facility] 2017-04-04 2017-04-04 Outpatient MHIE MHIE [id number] [facility] 13:00:00 13:00:00 04 [facility] 2017-04-04 2017-04-04 Outpatient MHIE MHIE [id number] [facility] 13:00:00 13:00:00 04 [facility] 2017-03-19 2017-03-20 Outpatient nullFlavo [facility] [id number] Memoria 15:22:00 04:59:[address] 2017-03-19 2017-03-20 Outpatient nullFlavo [facility] [id number] Memoria 15:22:00 04:59:[address] 2017-03-19 2017-03-19 Outpatient Manjinder Kowalski [facility] [id number] 10:22:00 23:59:00 [place] 2017-03-19 2017-03-19 Outpatient IE IE [id number] Memoria 08:45:00 08:45:00 03 l [place] 2017-03-19 2017-03-19 Outpatient JESS BRIONESIE [id number] [facility]oria 08:45:00 08:45:00 03 l [place] 2017-03-19 2017-03-19 Outpatient JESS CHRISTENSEN [id number] [facility] 07:45:00 07:45:00 02 marga Sagastume 2017-03-19 2017-03-19 Outpatient JESS CHRISTENSEN [id number] [facility] 07:45:00 07:45:00 02 marga Sagastume 2016-09-04 2016-09-04 Outpatient JESS JESS [id number] [facility] 07:45:00 07:45:00 [place] 2016-09-04 2016-09-04 Outpatient AMPARO BRIONESIE [id number] [facility]oria 07:45:00 07:45:00 01 marga Sagast[place] 2016-08-19 2016-08-19 Outpatient JESS CHRISTENSEN [id number] [facility] 10:30:00 10:30:00 00 marga Mitesh 2016-08-19 2016-08-[id number] Memoria 10:30:00 10:30:00 00 marga Sagastume Results Test Description Test Time Test Comments Results Result Comments Source Glucose [Mass/volume] in Capillary blood 2022-04-11 14:44:52 Test Item Value Reference Range Interpretation Comme nts glucose (test code = glucose) 190 mg/dL 65-99 [facility] [[facility]/volume] in Capillary [id number] 14:44:52 Test Item Value Reference Range Interpretation Comments glucose (test code = glucose) 190 mg/dL 65-99 [facility] [Mass/volume] in Capillary [id number] 14:44:52 Test Item Value Reference Range Interpretation Comments glucose (test code = glucose) 190 mg/dL 65-99 [facility] [Mass/volume] in Capillary loyrv5357-84-03 09:57:51 Test Item Value Reference Range Interpretation Comments glucose (test code = glucose) 264 mg/dL 65-99 [facility] MvwwvquAEUHZH3743-05-26 15:58:00 Test Item Value Reference Range Interpretation Comments GLUBED (test code = GLUBED) 147 MG/DL 70-105 H IJUMCNQBQY9912-46-07 16:42:00 Test Item Value Reference Range Interpretation Comments PTT (test code = PTT) 29.4 s 22.9-35.8 [facility]hg[facility]LHRAYQGOJR6239-63-86 16:42:00 Test Item Value Reference Range Interpretation Comments PT (test code = PT) 12.8 s 12.0-14.7 [place] [address]-12-05 16:42:00 Test Item Value Reference Range Interpretation Comments PTT (test code = PTT) 29.4 s 22.9-35.8 [place] 904527-12-05 16:42:00 Test Item Value Reference Range Interpretation Comments PT (test code = PT) 12.8 s 12.0-14.7 [place] [address]-12-05 16:42:00 Test Item Value Reference Range Interpretation Comments INR (test code = INR) 0.96 0.85-1.17 [place] [address]-12-05 16:42:00 Test Item Value Reference Range Interpretation Comments INR (test code = INR) 0.96 0.85-1.17 [place] [address]-12-05 16:42:00 Test Item Value Reference Range Interpretation Comments PTT (test code = PTT) 29.4 s 22.9-35.8 [facility]leKjdgrdkMXVFZZVHUT0769-72-07 16:42:00 Test Item Value Reference Range Interpretation Comments PT (test code = PT) 12.8 s 12.0-14.7 [facility]leMrwertjXOLSCCEOJZ5996-80-68 16:42:00 Test Item Value Reference Range Interpretation Comments INR (test code = INR) 0.96 0.85-1.17 [place] [address]-12-05 15:26:00 Test Item Value Reference Range Interpretation Comments MPV (test code = MPV) 8.0 7.4-10.4 [facility]2017-12-05 15:26:00 Test Item Value Reference Range Interpretation Comments eGFR (test code = eGFR) 95 [facility]2017-12-05 15:26:00 Test Item Value Reference Range Interpretation Comments Creatinine Lvl (test code = Creatinine 0.92 0.50-1.40 Lvl) [facility]2017-12-05 15:26:00 Test Item Value Reference Range Interpretation Comments BUN (test code = BUN) 21 7-22 [facility]leVonswdpILSPBWAFHG1061-98-92 15:26:00 Test Item Value Reference Range Interpretation Comments MCV (test code = MCV) 84.7 80.0-94.0 [facility]leCjiylzcABJFZAFIRE5784-67-90 15:26:00 Test Item Value Reference Range Interpretation Comments Hct (test code = Hct) 41.3 42.0-54.0 [facility] AzleEkouzyyYAHIVKIHFN6907-53-14 15:26:00 Test Item Value Reference Range Interpretation Comments MCH (test code = MCH) 27.9 pg 27.0-31.0 [facility] AzleAyvlkocGQBHNFUILQ4534-65-95 15:26:00 Test Item Value Reference Range Interpretation Comments MCHC (test code = MCHC) 32.9 32.0-36.0 [facility]leEmjhnxgWBLNXEICMB0735-20-52 15:26:00 Test Item Value Reference Range Interpretation Comments WBC (test code = WBC) 7.2 3.7-10.4 [facility] AzleYjxpqhcKDRAUIGNUJ0964-81-29 15:26:00 Test Item Value Reference Range Interpretation Comments RBC (test code = RBC) 4.87 4.70-6.10 [facility] AzleBejhrtkSQMAJQJLYL8087-64-91 15:26:00 Test Item Value Reference Range Interpretation Comments Hgb (test code = Hgb) 13.6 14.0-18.0 [facility] AzleUhyftdhEYSLCVTUOB6744-35-91 15:26:00 Test Item Value Reference Range Interpretation Comments RDW (test code = RDW) 16.1 11.5-14.5 [facility] AzleMcqmswbRGQHARPLZS1074-65-08 15:26:00 Test Item Value Reference Range Interpretation Comments Platelet (test code = Platelet) 239 133-450 [facility] AzlePcpaqbnPTXHYMZRET9572-18-13 15:26:00 Test Item Value Reference Range Interpretation Comments MPV (test code = MPV) 8.0 7.4-10.4 [facility]2017-12-05 15:26:00 Test Item Value Reference Range Interpretation Comments eGFR (test code = eGFR) 95 [facility]2017-12-05 15:26:00 Test Item Value Reference Range Interpretation Comments Creatinine Lvl (test code = Creatinine 0.92 0.50-1.40 Lvl) [facility]2017-12-05 15:26:00 Test Item Value Reference Range Interpretation Comments BUN (test code = BUN) 21 7-22 [facility] AzleNoupluiBRRHPYHBGZ0467-30-87 15:26:00 Test Item Value Reference Range Interpretation Comments MCV (test code = MCV) 84.7 80.0-94.0 [facility] AzleHcyyycoRTVYNJVHMJ1967-94-84 15:26:00 Test Item Value Reference Range Interpretation Comments Hct (test code = Hct) 41.3 42.0-54.0 [facility] AzleLqjbpfiFRNVMXWGAL4369-81-28 15:26:00 Test Item Value Reference Range Interpretation Comments MCH (test code = MCH) 27.9 pg 27.0-31.0 [facility] AzleYesusacUIHYIAOZEE6913-01-40 15:26:00 Test Item Value Reference Range Interpretation Comments MCHC (test code = MCHC) 32.9 32.0-36.0 [facility] AzleMipbmglZXIEADTONW7506-30-52 15:26:00 Test Item Value Reference Range Interpretation Comments WBC (test code = WBC) 7.2 3.7-10.4 [facility] AzleZgfrudvGWSEVLQUCM6601-13-30 15:26:00 Test Item Value Reference Range Interpretation Comments RBC (test code = RBC) 4.87 4.70-6.10 [facility] AzleDckukslCIAFRHSTAZ1366-46-55 15:26:00 Test Item Value Reference Range Interpretation Comments Hgb (test code = Hgb) 13.6 14.0-18.0 [facility] AzleNvajcjyCRPTBTTNHP8462-25-21 15:26:00 Test Item Value Reference Range Interpretation Comments RDW (test code = RDW) 16.1 11.5-14.5 [facility] AzleLvvvsflYKITWKKVWF7263-06-19 15:26:00 Test Item Value Reference Range Interpretation Comments Platelet (test code = Platelet) 239 133-450 [facility] AzleSkybhzzLJIQXEWYWZ9106-77-88 15:26:00 Test Item Value Reference Range Interpretation Comments MPV (test code = MPV) 8.0 7.4-10.4 [facility]2017-12-05 15:26:00 Test Item Value Reference Range Interpretation Comments eGFR (test code = eGFR) 95 [facility]2017-12-05 15:26:00 Test Item Value Reference Range Interpretation Comments Creatinine Lvl (test code = Creatinine 0.92 0.50-1.40 Lvl) [facility]2017-12-05 15:26:00 Test Item Value Reference Range Interpretation Comments BUN (test code = BUN) 21 7-22 [facility] AzleRualvebGSWQLDLSWJ2650-57-89 15:26:00 Test Item Value Reference Range Interpretation Comments MCV (test code = MCV) 84.7 80.0-94.0 [facility] AzleBrhjcixKIORLOJOLF2987-10-19 15:26:00 Test Item Value Reference Range Interpretation Comments Hct (test code = Hct) 41.3 42.0-54.0 [facility] AzleHsdhlcdGCDEVNYQEK0107-20-99 15:26:00 Test Item Value Reference Range Interpretation Comments MCH (test code = MCH) 27.9 pg 27.0-31.0 [facility] AzleLohudxuBADXEIGCVH9081-59-04 15:26:00 Test Item Value Reference Range Interpretation Comments MCHC (test code = MCHC) 32.9 32.0-36.0 [facility] AzleCebcjxnCANPTLLJND6815-87-84 15:26:00 Test Item Value Reference Range Interpretation Comments WBC (test code = WBC) 7.2 3.7-10.4 [facility] AzleGbbfofwUMLPNSDXEO9475-27-31 15:26:00 Test Item Value Reference Range Interpretation Comments RBC (test code = RBC) 4.87 4.70-6.10 [facility] AzleYosniisKEIMQDYTLE1368-56-35 15:26:00 Test Item Value Reference Range Interpretation Comments Hgb (test code = Hgb) 13.6 14.0-18.0 [facility] AzleTkjlkqrCNYBSXIOMU8330-23-18 15:26:00 Test Item Value Reference Range Interpretation Comments RDW (test code = RDW) 16.1 11.5-14.5 [facility] AzleEhmuskiSHVSUIOTAY4875-09-07 15:26:00 Test Item Value Reference Range Interpretation Comments Platelet (test code = Platelet) 239 133-450 [place] 64841017-09-05 05:57:00 Test Item Value Reference Range Interpretation [...] ( 4 - SerumAlbumin)] EGFR if >60 [place] (test code mL/min/1.73m\\ = EGFRAA) S\\2 EGFR if Non- >60 Estimate d Glomerular [place] (test code mL/min/1.73m\\ Filtrat ion Rate (eGFR) [...] and management of c hronic kidney failure. [facility] WITH AUTO [id number] 05:42:00 Test Item Value Reference Range Interpretation [...] code = 1.0 % 0.0-0.4 H IG%) [facility] 05:53:00 Test Item Value Reference Range Interpretation [...] ( 4 - SerumAlbumin)] EGFR if >60 [place] (test code mL/min/1.73m\\ = EGFRAA) S\\2 EGFR if Non- >60 Estimate d Glomerular [place] (test code mL/min/1.73m\\ Filtrat ion Rate (eGFR) [...] and management of c hronic kidney failure. [facility] WITH AUTO [id number] 05:27:00 Test Item Value Reference Range Interpretation [...] code = 1.7 % 0.0-0.4 H IG%) [facility] 04:36:00 Test Item Value Reference Range Interpretation [...] ( 4 - SerumAlbumin)] EGFR if >60 [place] (test code mL/min/1.73m\\ = EGFRAA) S\\2 EGFR if Non- >60 Estimate d Glomerular [place] (test code mL/min/1.73m\\ Filtrat ion Rate (eGFR) [...] and management of c hronic kidney failure. [facility] WITH AUTO [id number] 04:14:00 Test Item Value Reference Range Interpretation [...] code = 1.9 % 0.0-0.4 H IG%) [facility] 04:40:00 Test Item Value Reference Range Interpretation [...] ( 4 - SerumAlbumin)] EGFR if >60 [place] (test code mL/min/1.73m\\ = EGFRAA) S\\2 EGFR if Non- >60 Estimate d Glomerular [place] (test code mL/min/1.73m\\ Filtrat ion Rate (eGFR) [...] and management of c hronic kidney failure. [facility] WITH AUTO [id number] 04:09:00 Test Item Value Reference Range Interpretation [...] code = 2.4 % 0.0-0.4 H IG%) [facility]2017-08-31 06:50:00To start 15mins after 1st cultureSpecimen: BloodCollected: 01/18/2017 04:05 Status: Final Last Updated: 01/23/2017 06:49 (1) To start 15mins after 1st culture Culture Result (Final) (Final) [facility] 06:50:00Specimen: BloodCollected: 01/18/2017 03:55 Status: Final Last Updated: 01/23/2017 06:49 Culture Result (Final) (Final) No [facility] WITH AUTO [id number] 04:31:00 Test Item Value Reference Range Interpretation [...] code = 3.4 % 0.0-0.4 H IG%) [facility]-QvlwhqLRU0322-10-18 04:19:00 Test Item Value Reference Range Interpretation [...] ( 4 - SerumAlbumin)] EGFR if >60 [place] (test code mL/min/1.73m\\ = EGFRAA) S\\2 EGFR if Non- >60 Estimate d Glomerular [place] (test code mL/min/1.73m\\ Filtrat ion Rate (eGFR) [...] and management of c hronic kidney failure. [facility] WITH [facility]O [id number] 04:57:00 Test Item Value Reference Range Interpretation [...] 4.0 % 0.0-0.4 H IG%) CBC AUTO [facility]-OrodiuDMS4145-61-48 04:35:00 Test Item Value Reference Range Interpretation [...] ( 4 - SerumAlbumin)] EGFR if >60 [place] (test code mL/min/1.73m\\ = EGFRAA) S\\2 EGFR if Non- >60 Estimate d Glomerular [place] (test code mL/min/1.73m\\ Filtrat ion Rate (eGFR) [...] and management of c hronic kidney failure. [facility] WITH AUTO [id number] 05:01:00 Test Item Value Reference Range Interpretation [...] 4.5 % 0.0-0.4 H IG%) CBC AUTO [facility]-YsalfiPPP1435-71-05 04:56:00 Test Item Value Reference Range Interpretation [...] ( 4 - SerumAlbumin)] EGFR if >60 [place] (test code mL/min/1.73m\\ = EGFRAA) S\\2 EGFR if Non- >60 Estimate d Glomerular [place] (test code mL/min/1.73m\\ Filtrat ion Rate (eGFR) [...] and management of c hronic kidney failure. [facility] [id number] 05:57:00 Test Item Value Reference Range Interpretation [...] code = 4.8 % 0.0-0.4 H IG%) [facility] CenterIibqvr-CbxvapBJDEWJJQB5281-92-27 05:41:00 Test Item Value Reference Range Interpretation Comments Magnesium (test code = MG) 2.0 mg/dl 1.6-2.3 [facility]-YrrrbqZPU7781-74-90 05:41:00 Test Item Value Reference Range Interpretation [...] ( 4 - SerumAlbumin)] EGFR if >60 [place] (test code mL/min/1.73m\\ = EGFRAA) S\\2 EGFR if Non- >60 Estimate d Glomerular [place] (test code mL/min/1.73m\\ Filtrat ion Rate (eGFR) [...] and management of c hronic kidney failure. [facility]kinLACTIC ACID [id number] 06:43:00 Test Item Value Reference Range Interpretation Comments LACTATE (test code = LAC) 0.9 mmol/l 0.7-2.0 [facility]-LufkinGLYCOSALATED GKYFQWRRQP2042-11-50 05:41:00 Test Item Value Reference Range Interpretation Comments Hemoglobin A1C (test 9.06 % 4.3-6.0 A code = GLYCO) Mean Plasma Glucose 245 mg/dl 90-180 WHEN BONIFACIO T RESULTS FOR (test code = MPG) A1C EXCEED 14.0, THE LINEAR LIMIT OF THE INSTRUMENT, THE CALCULATED RESU LT FOR THE MEAN GLUCOS E IS NOT RELIABLE. [facility]kinCORONARY [id number] 05:09:00 Test Item Value Reference Range Interpretation [...] (test code = 37 mg/dl 30-60 VLDL) [facility] CenterHyxfhg-UsoiyyLXBZOGDNV0140-67-26 04:51:00 Test Item Value Reference Range Interpretation Comments Magnesium (test code = MG) 2.1 mg/dl 1.6-2.3 [facility]-EpkewqGTK6590-85-57 04:51:00 Test Item Value Reference Range Interpretation Comments CPK (test code = CPK) 93 U/L 30-[address] [facility], [id number] 04:43:00 Test Item Value Reference Range Interpretation Comments Lipase (test code = LIPA) 116 U/L 8-223 [facility] 04:43:00 Test Item Value Reference Range Interpretation [...] ( 4 - SerumAlbumin)] EGFR if >60 [place] (test code mL/min/1.73m\\ = EGFRAA) S\\2 EGFR if Non- >60 Estimate d Glomerular [place] (test code mL/min/1.73m\\ Filtrat ion Rate (eGFR) [...] and management of c hronic kidney failure. [facility] [place][note 3] (HEMOGRAM ONLY)2017-01-18 04:37:00 Test Item Value Reference [...] PLATELET CLUMPI NG. THIS IS A HEMOGRAM [facility]
[2022-08-15] MEDS ORDERED: ASPIRIN 81 MG CHEWABLE TABLET ONE (16:37)
[2022-08-15] MEDS ORDERED: FUROSEMIDE 100 MG/10 ML VIAL IV ONE (16:37)
[2022-08-15] MEDS ORDERED: NITROGLYCERIN 1 GM PKT TD ONE (16:37)
[2022-08-15] MEDS ORDERED: LIDOCAINE VISCOUS 2% SOLN 15 ML UDC ONE (16:37)
[2022-08-15] MEDS ORDERED: FAMOTIDINE 20 MG/2 ML VIAL IV ONE (16:37)
[2022-08-15] MEDS ORDERED: MAGNES/ALUMIN/SIMET 30ML UCUP ONE (16:37)
[2022-08-15 16:51] LABS: Absolute Lymphocytes (CBC) 1.5 K/uL (0.7-4.9); Hematocrit 35.8 % (39.6-49.0); Lymphocytes % 21.5 % (15.3-44.8); MCV 80.5 fL (80-100); MPV 7.4 fL (7.6-11.3); RBC Red Blood Cell Count 4.45 M/uL (4.33-5.43)
[2022-08-15 17:16] LABS: Potassium 4.2 mEq/L (3.5-5.1); Troponin High Sensitivity 5.6 pg/mL (<58.9)
--- NOTE | 2022-08-15 17:38 | RAD REPORT ---
EXAM DESCRIPTION: RAD - Chest Single View - 08/15/2022 5:29 pm CLINICAL HISTORY: CHEST PAIN COMPARISON: Chest Single View dated 11/23/2021; Chest Single View dated 10/02/2021; Chest Single View d ated 08/28/2021; Chest Pa And Lat (2 Views) dated 06/04/2021 FINDINGS: Lines: None. Lungs: No evidence of edema or pneumonia. Pleural: No significant pleural effusions or pneumothorax. Cardiac: The heart size is within normal limits. Mediastinum: Within normal limits. Bones: No acute fractures. Other: None IMPRESSION: No acute cardiopulmonary disease.
--- NOTE | 2022-08-15 17:47 | EDPHYS ---
Physician Documentation [facility] Name: Nicola Harvey Age: 57 yrs Sex: Male : 1965 Arrival Date: 08/15/2022 Time: 15:52 Bed 13 Private MD: Latoya Mcknight C ED Physician Marin Vieyra HPI: 08/15 16:21 This 57 yrs old Male presents to ER via Ambulatory with complaints of Chest jr11 Pain. 16:21 The patient or guardian reports chest pain that is located primarily in the substernal jr11 area, epigastric area. Onset: 2 day(s) ago. Patient is a 57-year-old with history of lymphedema chronic back pain diabetes dyslipidemia hypertension obesity here with chest pain that started 2 days ago, chest pain is an ache, pleuritic in nature, worse taking a deep breath also when laying on his left side. Denies exertional pain, no tearing pain, does not radiate to the back, does not cross the diaphragm. No diaphoresis, no vomiting. No syncope or near-syncope. Patient denies any fevers chills nausea, no vomiting. Denies any abdominal pain. Patient states that he has a history of congestive heart failure however because he does not have access to a restroom at work, has not been taking his Lasix over the last 2 days which is when his symptoms started.. Historical: - Allergies: 16:14 Invokana; aa5 16:14 Jardiance; aa5 - PMHx: 16:14 CHF; chronic back pain; Diabetes - IDDM; Hyperlipidemia; Hypertension; Obesity; aa5 - PSHx: 16:14 addenoidectomy; Cholecystectomy; rhinoplasty; aa5 - Immunization history:: Adult Immunizations unknown. - Social history:: Smoking status: Patient/guardian denies using tobacco. ROS: 16:21 All other systems are negative. jr11 Exam: 16:21 Constitutional: This is a well developed, well nourished patient who is awake, alert, jr11 and in no acute distress. Head/Face: Normocephalic, atraumatic. Eyes: Extra-ocular motions intact. Lids and lashes normal. Conjunctiva and sclera are non-icteric and not injected. Cornea within normal limits. Periorbital areas with no swelling, redness, or edema. ENT: Nares patent. No nasal discharge, no septal abnormalities noted. Oropharynx with no redness, swelling, or masses, exudates, or evidence of obstruction, uvula midline. Mucous membranes moist. Chest/axilla: Normal chest wall appearance and motion. Nontender with no deformity. No lesions are appreciated. Cardiovascular: Regular rate and rhythm with a normal S1 and S2. No gallops, murmurs, or rubs. Normal PMI, no JVD. No pulse deficits. Respiratory: Lungs have equal breath sounds bilaterally, clear to auscultation and percussion. No rales, rhonchi or wheezes noted. No increased work of breathing, no retractions or nasal flaring. Abdomen/GI: Soft, non-tender, with normal bowel sounds. No distension or tympany. No guarding or rebound. No evidence of tenderness throughout. Back: No spinal tenderness. No costovertebral tenderness. Full range of motion. MS/ Extremity: +lymphedema to bilateral LE Vital Signs: 16:13 BP 161 / 69; Pulse 82; Resp 20 S; Temp 97.8(TE); Pulse Ox 97% on R/A; Weight 146.96 kg aa5 (R); Height 5 ft. 9 in. (R); 16:51 BP 145 / 64; Pulse 76; Resp 18; Pulse Ox 100% ; Pain 8/10; ll1 17:34 BP 144 / 77; Pulse 87; Resp 18; Pulse Ox 95% on R/A; ll1 18:16 BP 134 / 79; Pulse 90; Resp 18; Pulse Ox 97% ; Pain 1/10; ll1 16:13 Body Mass Index 47.85 (146.96 kg, 175.26 cm) aa5 16:51 Pain Scale: Adult ll1 18:16 Pain Scale: Adult ll1 MDM: 16:18 Patient medically screened. jr11 16:21 Differential diagnosis: congestive heart failure costochondritis, esophagitis, jr11 gastritis, gastroesophageal reflux disease (GERD), myocarditis, pleurisy. ED course: Patient is a 57-year-old with multiple risk factors for CAD however with atypical presentation for ACS, has had this pain constant for 2 days, worse with taking a deep breath then. Patient has been off of his Lasix for 2 days, will diuresis while in the emergency department, check troponin and reassess.. 16:44 Data reviewed: vital signs, nurses notes. ED course: EKG interpreted by me shows normal jr11 sinus rhythm, normal axis, normal intervals, no acute ST changes however frequent PVCs. quality assurance monitor interpretation shows heart rate 75 normal sinus rhythm. 17:42 ED course: Patient feeling better, high-sensitivity troponin negative, chest pain jr11 pleuritic, no concern for ACS at this time. Patient does have risk factors and will follow up with primary care doctor. ER warnings given strict return precautions voiced, patient comfortable with plan of care and will follow-up as an outpatient. 17:45 ED course: D-dimer slightly positive age-adjusted however patient does not want to wait jr11 for CT angiogram at this time, understands the risk of a missed PE, but will return if worsening. He wants to get back on his diuretics, if not working will return. 08/15 16:19 Order name: Basic Metabolic Panel; Complete Time: 17:21 [facility] 08/15 16:19 Order name: CBC with Diff; Complete Time: 17:21 [facility] 08/15 16:19 Order name: NT PRO-BNP; Complete Time: 17:21 [facility] 08/15 16:19 Order name: Troponin HS; Complete Time: 17:21 [facility] 08/15 16:19 Order name: D-Dimer; Complete Time: 17:21 08/15 16:19 Order name: XRAY Chest (1 view); Complete Time: 17:39 08/15 16:19 Order name: EKG; Complete Time: 16:19 [facility] 08/15 16:19 Order name: Cardiac monitoring; Complete Time: 16:37 [facility] 08/15 16:19 Order name: EKG - Nurse/Tech; Complete Time: 16:37 08/15 16:19 Order name: IV Saline Lock; Complete Time: 16:21 08/15 16:19 Order name: Labs collected and sent; Complete Time: 16:20 08/15 16:19 Order name: O2 Per Protocol; Complete Time: 16:20 08/15 16:19 Order name: O2 Sat Monitoring; Complete Time: 16:20 [facility] Administered Medications: 16:49 Drug: Aspirin PO Chewable Tablet 324 mg {Note: 243 MG PO given, 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.} Route: PO; 17:43 Follow up: Response: No adverse reaction ll1 16:50 Drug: Nitroglycerin Transdermal Ointment 2 % 1 inches Route: Transdermal; Site: ll1 anterior chest wall; 17:43 Follow up: Response: No adverse reaction ll1 16:50 Drug: Furosemide IVP 80 mg Route: IVP; Site: right antecubital; ll1 17:43 Follow up: Response: No adverse reaction ll1 16:50 Drug: Famotidine IVP 20 mg Route: IVP; Site: right antecubital; ll1 17:43 Follow up: Response: No adverse reaction ll1 16:50 Drug: GI Cocktail without - (Maalox PO Suspension 30 ml, Lidocaine Mucous ll1 Membrane Liquid 2 % 15 ml) Route: PO; 17:43 Follow up: Response: No adverse reaction ll1 17:47 Drug: Acetaminophen PO 1000 mg Route: PO; ll1 18:16 Follow up: Response: No adverse reaction ll1 Disposition Summary: 08/15/22 17:46 Discharge Ordered Location: Home [facility] Condition: Stable jr11 Diagnosis - Chest pain on breathing jr11 - Edema, unspecified jr11 Discharge Instructions: - Discharge Summary Sheet jr11 - Nonspecific Chest Pain, Adult jr11 - Edema jr11 Forms: - Medication Reconciliation Form jr11 - Thank You Letter jr11 - Antibiotic Education jr11 - Prescription Opioid Use jr11 Signatures: Dispatcher [employer] EDMS Harini Arriola RN RN aa5 Landy Alexander RN RN ll1 Marin Vieyra MD MD jr11 Corrections: (The following items were deleted from the chart) 17:46 17:42 ED course: d-dimer negative age adjusted . jr11 jr11
--- NOTE | 2022-08-15 17:47 | ER ---
Nurse's Notes [facility] Name: Nicola Harvey Age: 57 yrs Sex: Male : 1965 Arrival Date: 08/15/2022 Time: 15:52 Bed 13 Private MD: Latoya Mcknight C Diagnosis: Chest pain on breathing;Edema, unspecified Presentation: 08/15 16:13 Chief complaint: Patient states: chest pressure x 2 days ago. Reports he has not been aa5 taking Lasix as prescribed. Coronavirus screen: At this time, the client does not indicate any symptoms associated with coronavirus-19. Ebola Screen: Patient denies travel to an Ebola-affected area in the 21 days before illness onset. Risk Assessment: Do you want to hurt yourself or someone else? Patient reports no desire to harm self or others. Onset of symptoms was July 2022. 16:13 Acuity: ANGE 3 aa5 16:13 Method Of Arrival: Ambulatory aa5 16:52 Initial Sepsis Screen: Does the patient meet any 2 criteria? No. Patient's initial ll1 sepsis screen is negative. Does the patient have a suspected source of infection? No. Patient's initial sepsis screen is negative. Historical: - Allergies: 16:14 Invokana; aa5 16:14 Jardiance; aa5 - PMHx: 16:14 CHF; chronic back pain; Diabetes - IDDM; Hyperlipidemia; Hypertension; Obesity; aa5 - PSHx: 16:14 addenoidectomy; Cholecystectomy; rhinoplasty; aa5 - Immunization history:: Adult Immunizations unknown. - Social history:: Smoking status: Patient/guardian denies using tobacco. Screenin:20 [facility] ED Fall Risk Assessment (Adult) Score/Fall Risk Level 0 - 2 = Low Risk ll1 Oriented to surroundings, Maintained a safe environment, Educated pt \T\ family on fall prevention, incl call for assistance when getting out of bed, Hourly rounding (assess needs \T\ fall precautionary measures) done. Abuse screen: Denies threats or abuse. Nutritional screening: No deficits noted. Tuberculosis screening: No symptoms or risk factors identified. Assessment: 16:25 General: Appears uncomfortable, Behavior is calm, cooperative, appropriate for age. ll1 Pain: Complains of pain in chest Pain currently is 8 out of 10 on a pain scale. Quality of pain is described as pressure. Neuro: No deficits noted. Cardiovascular: Reports chest pain, shortness of breath. Respiratory: Reports shortness of breath labored breathing pain with respiration. 16:52 Reassessment: No changes from previously documented assessment. Patient and/or family ll1 updated on plan of care and expected duration. Pain level reassessed. Patient is alert, oriented x 3, equal unlabored respirations, skin warm/dry/pink. 17:30 Reassessment: No changes from previously documented assessment. Patient and/or family ll1 updated on plan of care and expected duration. Pain level reassessed. 18:16 Reassessment: No changes from previously documented assessment. Patient and/or family ll1 updated on plan of care and expected duration. Pain level reassessed. Patient is alert, oriented x 3, equal unlabored respirations, skin warm/dry/pink. 18:21 Pain: Pain does not radiate. Pain began 2-3 days ago. ll1 Vital Signs: 16:13 BP 161 / 69; Pulse 82; Resp 20 S; Temp 97.8(TE); Pulse Ox 97% on R/A; Weight 146.96 kg aa5 (R); Height 5 ft. 9 in. (R); 16:51 BP 145 / 64; Pulse 76; Resp 18; Pulse Ox 100% ; Pain 8/10; ll1 17:34 BP 144 / 77; Pulse 87; Resp 18; Pulse Ox 95% on R/A; ll1 18:16 BP 134 / 79; Pulse 90; Resp 18; Pulse Ox 97% ; Pain 1/10; ll1 16:13 Body Mass Index 47.85 (146.96 kg, 175.26 cm) aa5 16:51 Pain Scale: Adult ll1 18:16 Pain Scale: Adult ll1 ED Course: 15:52 Patient arrived in ED. am2 15:52 Latoya Mcknight MD is Private Physician. am2 16:00 Marin Vieyra MD is Attending Physician. jr11 16:13 Arm band placed on. aa5 16:14 Triage completed. aa5 16:17 Patient placed in an exam room, on a stretcher. ll1 16:19 Landy Alexander, KRUNAL is Primary Nurse. ll1 16:20 Patient has correct armband on for positive identification. Bed in low position. Call ll1 light in reach. Side rails up X2. Client placed on continuous cardiac and pulse oximetry monitoring. NIBP monitoring applied. abstract maker on. 16:30 Inserted saline lock: 22 gauge in right antecubital area, using aseptic technique. ll1 Blood collected. 16:52 No provider procedures requiring assistance completed. Patient maintains SpO2 ll1 saturation greater than 95% on room air. 17:30 XRAY Chest (1 view) In Process Unspecified. EDMS 18:20 IV discontinued, intact, bleeding controlled, No redness/swelling at site. Pressure ll1 dressing applied. 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.} Route: PO; 17:43 Follow up: Response: No adverse reaction ll1 16:50 Drug: Nitroglycerin Transdermal Ointment 2 % 1 inches Route: Transdermal; Site: ll1 anterior chest wall; 17:43 Follow up: Response: No adverse reaction ll1 16:50 Drug: Furosemide IVP 80 mg Route: IVP; Site: right antecubital; ll1 17:43 Follow up: Response: No adverse reaction ll1 16:50 Drug: Famotidine IVP 20 mg Route: IVP; Site: right antecubital; ll1 17:43 Follow up: Response: No adverse reaction ll1 16:50 Drug: GI Cocktail without - (Maalox PO Suspension 30 ml, Lidocaine Mucous ll1 Membrane Liquid 2 % 15 ml) Route: PO; 17:43 Follow up: Response: No adverse reaction ll1 17:47 Drug: Acetaminophen PO 1000 mg Route: PO; ll1 18:16 Follow up: Response: No adverse reaction ll1 Medication: 16:52 VIS not applicable for this client. ll1 Output: 17:33 Urine: 1000ml (Voided); Total: 1000ml. ll1 Outcome: 17:46 Discharge ordered by MD. garrett 18:20 Discharged to home ambulatory. ll1 18:20 Condition: stable 18:20 Discharge instructions given to patient, Instructed on discharge instructions, follow up and referral plans. Demonstrated understanding of instructions, follow-up care. 18:21 Patient left the ED. ll1 Signatures: Dispatcher [employer] EDMS Harini Arriola RN RN [email or web address] Sudha Mares am2 Landy Alexander RN RN ll1 Marin Vieyra MD MD jr11 Corrections: (The following items were deleted from the chart) 16:16 16:13 Chief complaint: Patient states: chest pressure x 2 days ago aa5 16:17 16:13 Pulse 82bpm; Resp 20bpm; Spontaneous; Pulse Ox 97% RA; Temp 97.8F Temporal;
[2022-08-15] MEDS ORDERED: ACETAMINOPHEN 500 MG TAB ONE (17:50)
[2022-08-15 19:24] VITALS: TEMP 97.8
[2022-08-15 19:29] VITALS: BP 134/79; O2SAT 97
--- NOTE | 2022-08-16 13:41 | EKG ---
Test Date: 2022-08-15 Test Time: 16:41:13 Cell Plasterer: CHARLIE MEASUREMENT RESULTS: Intervals: Rate: 76 NE: 152 QRSD: 108 QT: 382 QTc: 429 [place]: P: 36 NE: 152 QRS: 74 T: 52 INTERPRETIVE STATEMENTS: Sinus rhythm with frequent premature ventricular complexes Incomplete right bundle branch block Borderline ECG Compared to ECG 11/23/2021 10:16:23 Ventricular premature complex(es) now present Myocardial infarct finding no longer present Electronically Signed On 08-16-22 13:38:40 CDT by Neel Garcia
== END 2022-08-15 18:21 | disposition home or self-care (01) ==
LOC: ER 15:51
DX: R07.1 Chest pain on breathing (principal); R60.9 Edema, unspecified; I50.9 Heart failure, unspecified; E11.9 Type 2 diabetes mellitus without complications; E78.5 Hyperlipidemia, unspecified; I10 Essential (primary) hypertension; E66.9 Obesity, unspecified; Z68.42 Body mass index [BMI] 45.0-49.9, adult; Z88.8 Allergy status to other drugs, medicaments and biological substances
CPT/HCPCS: 36415; 71045; 80048; 83880; 84484; 85025; 85379; 93005

== ENCOUNTER 2022-09-19 18:42 | Emergency (ER) | payer BC ==
--- OUTSIDE RECORDS SUMMARY | 2022-09-19 18:49 | XMS REPORT | Continuity of Care Document ---
:1965 Author Organization [facility] t Address [address] [place] [address] [address] [place] [address] Care Team Providers Name Role Phone Hope Barraza Primary Care Physician GC_EDEC_Hayes_A Attending Clinician Unavailable Ellen Pantoja Attending Clinician [phone] PAUL SLOAN Attending Clinician Unavailable Nurse, Adc Pob Immunization Attending Clinician Unavailable Paul Sloan DO Attending Clinician JAZMIN SARMIENTO Attending Clinician Unavailable Neel Garcia Attending Clinician Unavailable CHINO HEALY Attending Clinician Unavailable Only, Adc Test Attending Clinician Unavailable Doctor Unassigned, [place] Attending Clinician Unavailable Anupam Atkins MD Attending [...] Expiration Date S felecia [place] OF [id number] 2022 00:00:00 [place] (PPO) AETNA (POS) [id number] 2021 00:00:00 [place] OF [place] - [id number] 2019 00:00:00 OUT OF STATE BLUE CROSS-[place]: [id number] ANTH BLUE CROSS (PPO) Problems Condition Condition [...] lower lower 00:00: [place] extremity extremity 00 [facility] sanjiv Branch Cellulitis Cellulitis Disease [...] 09:02:00 l Active 00:00: Mitesh 04/08/2017 00 [facility] M54.16 M54.16 Diagnosis Active 2016-052017-03-19 Me moria Active 0 10:29:00 l 03/19/2017 00:00: Gabo thomas [address] Abdominal Problem Resolve 2017-12-07 M emoria pain Abdominal d 00:03:51 l (finding) pain Haughton (finding) Resolved Problem 12/07/2017 [facility] Chest pain Chest Problem Resolve 2017-12-07 Memoria (finding) pain d 00:03:51 l (finding) Mitesh Resolved Problem 12/07/2017 [facility] Chronic Chronic Problem Resolve 2017-12-07 M emoria back pain back pain d 00:03:51 l (disorder) (disorder) He rmann Resolved Problem 12/07/2017 [facility] Diabetes Diabetes Problem Active 2017-12-07 Memoria mellitus mellitus 00:03:51 l (disorder) (disorder) He rmann Active Problem 12/07/2017 [facility] Hyperchole Hyperchol Problem Active 2017-12-07 Memoria sterolemia esterolemi 00:03:51 l (disorder) eyad thomas (disorder) Active Problem 12/07/2017 [facility] Hypertensi Hypertens Problem Active 2017-12-07 Memoria ve liliana 00:03:51 l disorder, disorder, Herm chacorta systemic systemic arterial arterial (disorder) (disorder) Active Problem 12/07/2017 [facility] Morbid Morbid Problem Active 2017-12-07 Chuck jack obesity obesity 00:03:51 l (disorder) (disorder) He rmann Active Problem 12/07/2017 [facility] Prolapsed Prolapsed Problem Active 2017-12-07 Memoria lumbar lumbar 00:03:51 l interverte interverte He rmann bral disc bral disc (disorder) (disorder) Active Problem 12/07/2017 [facility] Allergies, Adverse Reactions, Alerts Allergy Allergy Status Severity Reaction(s) Onset Inactive Treating Comm ents Source Name Type Date Date Clinician No Known DA Active U 2020-0 [facility]01 [facility] No Known DA Active U [facility] Allergie 02-01 [facility] 00:00: [facility] NO KNOWN Drug Active Univers ALLERGIE Class ity of S [facility] Social History Social Habit Start Date Stop Date Quantity Comments Source Alcohol intake 2018-07-21 2018-07-21 Current University of 00:00:00 00:00:00 non-drinker of [facility] alcohol Branch (finding) Tobacco use and 2018-04-09 2018-04-09 Never used Universit y of exposure 00:00:00 00:00:00 [facility] Sex Ass[birth year] At [birth year] Universit y of 00:00:00 00:00:00 [facility] Smoking Status Start Date Stop Date Source Never Smoker [facility] Social History 2017-06-05 17:47:50 2017-06-05 17:47:50 [facility] Medications Ordered Filled Start Stop Current Ordering Indication Dosage Frequency Signature Comments Components Source Medication Medication Date Date Medication? Clinician (SIG) Name Name insulin 2018-05 Yes [id number] 60U inject 60 Univers regular 0-24 Units ity of human 500 00:00: under the Varinder as unit/mL 00 skin 3 Medical injection (three) Branch times daily before meals. E11. 65 Insulin Yes Each 3 Univers Syringe-Nee 7-03 (three) ity o f dle U-100 1 00:00: times [place] mL 31 gauge 00 daily Medical x 5/16 Syrg before Branch meals. E11.65 insulin Yes [id number] 1{each} 1 Each 3 Univers U-500 5-28 (three) ity of syringe-nee 00:00: times [place] dle 1/2 mL 00 daily Medical 31 gauge x before Branch " Syrg meals. E11.65 metformin Yes [id number] 1000mg Take 2 Univers ER 500 mg 5-28 tablets by ity of 24 hr 00:00: mouth 2 [place] tablet 00 (two) Medical times Branch daily with meals. glimepiride 2018- Yes [id number] 4mg Take 1 Univers 4 mg tablet 5-28 tablet by ity of 00:00: mouth 2 [place] 00 (two) Medical times Branch daily with meals. pravastatin Yes [id number] 20mg Take 1 Univers 20 mg 5-28 tablet by ity of tablet 00:00: mouth at [place] 00 bedtime. Medical Branch metoprolol Yes 50mg Take 50 mg U nivers tartrate 50 2-01 by mouth 2 it y of mg tablet 17:31: (two) [place] 53 times Medical daily. Branch lisinopril Yes 40mg Take 40 mg U nivers 40 mg 2-01 by mouth ity of tablet 17:31: daily. [place] [address] Medical Branch amLODIPine Yes 5mg Take 5 mg Un bria 5 mg tablet 2-01 by mouth ity of 17:31: daily. [place] [address] Medical Branch traMADOL 50 Yes [id number] 50mg Take 1 Univers mg tablet 06-26 [id number] tablet by ity of 00:00: mouth 2 [place] 00 (two) Medical times Branch daily as needed for Pain (scale 4-6) or Pain (scale 7-10). hydroCHLORO 2017-05 Yes [id number] 25mg Take 1 Univers thiazide 25 2-14 tablet by ity of mg tablet 00:00: mouth [place] 00 daily. Medical Branch exenatide 2017-05 Yes [id number] 2mg inject 2 Univers microsphere 1-14 mg [...] , # 150 tab, 2 Refill(s), Pharmacy: [facility] diclofenac 2016-05 Yes 75 mg = 1 Me moria sodium 75 2-01 tab, PO, l mg oral 14:52: BID, PRN Gabo n enteric 00 Pain Score coated, 7-10, # 60 delayed-rel tab, 2 ease tablet Refill(s), Pharmacy: [facility] Cyclobenzap 2016-05 Yes 10 mg = 1 M emoria rine 2-01 tab, PO, l hydrochlori 14:52: BID, # 60 H ermann de 10 MG 00 tab, 2 Oral Tablet Refill(s), [Flexeril] Pharmacy: [place] [address] amitriptyli 2016-05 Yes 10 mg = 1 M emoria ne 10 mg 2-01 tab, PO, l oral tablet 14:52: Bedtime, 4 Haughton 00 tabs at bedtime for 1 week then 5 tabs at bedtime thereafter , # 150 tab, 2 Refill(s), Pharmacy: [place] [address] diclofenac 2016-05 Yes 75 mg = 1 Me moria sodium 75 2-01 tab, PO, l mg oral 14:52: BID, PRN Gabo n enteric 00 Pain Score coated, 7-10, # 60 delayed-rel tab, 2 ease tablet Refill(s), Pharmacy: [place] [address] [facility]05 Yes 10 mg = 1 M emoria rine 2-01 tab, PO, l hydrochlori 14:52: BID, # 60 H ermann de 10 MG 00 tab, 2 Oral Tablet Refill(s), [Flexeril] Pharmacy: [place] [address] amitriptyli 2016-05 Yes 10 mg = 1 M emoria ne 10 mg 2-01 tab, PO, l oral tablet 14:52: Bedtime, 4 Mitesh 00 tabs at bedtime for 1 week then 5 tabs at bedtime thereafter , # 150 tab, 2 Refill(s), Pharmacy: [place] [address] diclofenac 2016-05 Yes 75 mg = 1 Me moria sodium 75 2-01 tab, PO, l mg oral 14:52: BID, PRN Gabo n enteric 00 Pain Score coated, 7-10, # 60 delayed-rel tab, 2 ease tablet Refill(s), Pharmacy: [place] [address] Cyclobenzap 2016-05 Yes 10 mg = 1 M emoria rine 2-01 tab, PO, l hydrochlori 14:52: BID, # 60 H ermann de 10 MG 00 tab, 2 Oral Tablet Refill(s), [Flexeril] Pharmacy: [place] [address] amitriptyli 2016-05 Yes 10 mg = 1 M emoria ne 10 mg 2-01 tab, PO, l oral tablet 14:52: Bedtime, 4 Mitesh 00 tabs at bedtime for 1 week then 5 tabs at bedtime thereafter , # 150 tab, 2 Refill(s), Pharmacy: [facility]08 diclofenac 2016-05 Yes 75 mg = 1 Me moria sodium 75 2-01 tab, PO, l mg oral 14:52: BID, PRN Gabo n enteric 00 Pain Score coated, 7-10, # 60 delayed-rel tab, 2 ease tablet Refill(s), Pharmacy: [facility] Cyclobenzap 2016-05 Yes 10 mg = 1 M emoria rine 2-01 tab, PO, l hydrochlori 14:52: BID, # 60 H ermann de 10 MG 00 tab, 2 Oral Tablet Refill(s), [Flexeril] Pharmacy: [facility] Lidocaine 2016-05 Yes 3 mL, Memoria Hydrochlori 2- Route: l de 10 MG/ML 14:50: SUB-Q, Herm chacorta Injectable 00 Dosing Solution Weight 141.364, kg, ONCE, (Preservat liliana Free), Start date: 04/25/17 8:50:00 IT TECHNICAL SUPPORT SPECIALIST, Stop date: 04/25/17 8:50:00 IT TECHNICAL SUPPORT SPECIALIST Omnipaque 2017- Yes 2 mL, Memoria 300 2- Route: l 14:50: EPIDURAL, Haughton 00 Dosing Weight 141.364, kg, ONCE, (Preservat liliana Free), Start date: 04/25/17 8:50:00 IT TECHNICAL SUPPORT SPECIALIST, Stop date: 04/25/17 8:50:00 IT TECHNICAL SUPPORT SPECIALIST Dexamethaso 2017- Yes 8 mg, Memor ia ne 2- Route: l 14:50: EPIDURAL, Mitesh 00 ONCE, Dosing Weight 141.364, kg, (Preservat liliana Free), Start date: 04/25/17 8:50:00 IT TECHNICAL SUPPORT SPECIALIST, Stop date: 04/25/17 8:50:00 IT TECHNICAL SUPPORT SPECIALIST Bupivacaine 2017- Yes 2 mL, Memor ia Hydrochlori 2- Route: l de 2.5 14:50: EPIDURAL, Gabo n MG/ML 00 Dosing Injectable Weight Solution 141.364, kg, ONCE, (Preservat liliana Free), Start date: 04/25/17 8:50:00 IT TECHNICAL SUPPORT SPECIALIST, Stop date: 04/25/17 8:50:00 IT TECHNICAL SUPPORT SPECIALIST Sodium 2017- Yes 4.2 mL, Memoria Chloride 2- Route: l 14:50: EPIDURAL, Mitesh 00 Dosing Weight 141.364, kg, ONCE, (Preservat liliana Free), Start date: 04/25/17 8:50:00 IT TECHNICAL SUPPORT SPECIALIST, Stop date: 04/25/17 8:50:00 IT TECHNICAL SUPPORT SPECIALIST Lidocaine 2017- Yes 3 mL, Memoria Hydrochlori 2-01 Route: l de 10 MG/ML 14:50: SUB-Q, Herm chacorta Injectable 00 Dosing Solution Weight 141.364, kg, ONCE, (Preservat liliana Free), Start date: 04/25/17 8:50:00 IT TECHNICAL SUPPORT SPECIALIST, Stop date: 04/25/17 8:50:00 IT TECHNICAL SUPPORT SPECIALIST Omnipaque 2017- Yes 2 mL, Memoria 300 2- Route: l 14:50: EPIDURAL, Mitesh 00 Dosing Weight 141.364, kg, ONCE, (Preservat liliana Free), Start date: 04/25/17 8:50:00 IT TECHNICAL SUPPORT SPECIALIST, Stop date: 04/25/17 8:50:00 IT TECHNICAL SUPPORT SPECIALIST Dexamethaso 2017- Yes 8 mg, Memor ia ne 2- Route: l 14:50: EPIDURAL, Haughton 00 ONCE, Dosing Weight 141.364, kg, (Preservat liliana Free), Start date: 04/25/17 8:50:00 IT TECHNICAL SUPPORT SPECIALIST, Stop date: 04/25/17 8:50:00 IT TECHNICAL SUPPORT SPECIALIST Bupivacaine 2017- Yes 2 mL, Memor ia Hydrochlori 2- Route: l de 2.5 14:50: EPIDURAL, Gabo n MG/ML 00 Dosing Injectable Weight Solution 141.364, kg, ONCE, (Preservat liliana Free), Start date: 04/25/17 8:50:00 IT TECHNICAL SUPPORT SPECIALIST, Stop date: 04/25/17 8:50:00 IT TECHNICAL SUPPORT SPECIALIST Sodium 2017-1 Yes 4.2 mL, Memoria Chloride 2-01 Route: l 14:50: EPIDURAL, Mitesh 00 Dosing Weight 141.364, kg, ONCE, (Preservat liliana Free), Start date: 04/25/17 8:50:00 IT TECHNICAL SUPPORT SPECIALIST, Stop date: 04/25/17 8:50:00 IT TECHNICAL SUPPORT SPECIALIST Lidocaine 2017-1 Yes 3 mL, Memoria Hydrochlori 2-01 Route: l de 10 MG/ML 14:50: SUB-Q, Herm chacorta Injectable 00 Dosing Solution Weight 141.364, kg, ONCE, (Preservat liliana Free), Start date: 04/25/17 8:50:00 IT TECHNICAL SUPPORT SPECIALIST, Stop date: 04/25/17 8:50:00 IT TECHNICAL SUPPORT SPECIALIST Omnipaque 2017-1 Yes 2 mL, Memoria 300 2- Route: l 14:50: EPIDURAL, Mitesh 00 Dosing Weight 141.364, kg, ONCE, (Preservat liliana Free), Start date: 04/25/17 8:50:00 IT TECHNICAL SUPPORT SPECIALIST, Stop date: 04/25/17 8:50:00 IT TECHNICAL SUPPORT SPECIALIST Dexamethaso 2017- Yes 8 mg, Memor ia ne 2- Route: l 14:50: EPIDURAL, Haughton 00 ONCE, Dosing Weight 141.364, kg, (Preservat liliana Free), Start date: 04/25/17 8:50:00 IT TECHNICAL SUPPORT SPECIALIST, Stop date: 04/25/17 8:50:00 IT TECHNICAL SUPPORT SPECIALIST Bupivacaine 2017- Yes 2 mL, Memor ia Hydrochlori 2- Route: l de 2.5 14:50: EPIDURAL, Gabo n MG/ML 00 Dosing Injectable Weight Solution 141.364, kg, ONCE, (Preservat liliana Free), Start date: 04/25/17 8:50:00 IT TECHNICAL SUPPORT SPECIALIST, Stop date: 04/25/17 8:50:00 IT TECHNICAL SUPPORT SPECIALIST Sodium 2017-1 Yes 4.2 mL, Memoria Chloride 2- Route: l 14:50: EPIDURAL, Haughton 00 Dosing Weight 141.364, kg, ONCE, (Preservat liliana Free), Start date: 04/25/17 8:50:00 IT TECHNICAL SUPPORT SPECIALIST, Stop date: 04/25/17 8:50:00 IT TECHNICAL SUPPORT SPECIALIST Sodium 2017-1 Yes 4.2 mL, Memoria Chloride 2-01 Route: l 14:50: EPIDURAL, Haughton 00 Dosing Weight 141.364, kg, ONCE, (Preservat liliana Free), Start date: 04/25/17 8:50:00 IT TECHNICAL SUPPORT SPECIALIST, Stop date: 04/25/17 8:50:00 IT TECHNICAL SUPPORT SPECIALIST Lidocaine 2017-1 Yes 3 mL, Memoria Hydrochlori 2-01 Route: l de 10 MG/ML 14:50: SUB-Q, Herm chacorta Injectable 00 Dosing Solution Weight 141.364, kg, ONCE, (Preservat liliana Free), Start date: 04/25/17 8:50:00 IT TECHNICAL SUPPORT SPECIALIST, Stop date: 04/25/17 8:50:00 IT TECHNICAL SUPPORT SPECIALIST Omnipaque 2017- Yes 2 mL, Memoria 300 2- Route: l 14:50: EPIDURAL, Haughton 00 Dosing Weight 141.364, kg, ONCE, (Preservat liliana Free), Start date: 04/25/17 8:50:00 IT TECHNICAL SUPPORT SPECIALIST, Stop date: 04/25/17 8:50:00 IT TECHNICAL SUPPORT SPECIALIST Dexamethaso 2017- Yes 8 mg, Memor ia ne - Route: l 14:50: EPIDURAL, Mitesh 00 ONCE, Dosing Weight 141.364, kg, (Preservat liliana Free), Start date: 04/25/17 8:50:00 IT TECHNICAL SUPPORT SPECIALIST, Stop date: 04/25/17 8:50:00 IT TECHNICAL SUPPORT SPECIALIST Bupivacaine 2016- Yes 2 mL, Memor ia Hydrochlori 06-26 Route: l de 2.5 14:50: EPIDURAL, Gabo n MG/ML 00 Dosing Injectable Weight Solution 141.364, kg, ONCE, (Preservat liliana Free), Start date: 04/25/17 8:50:00 IT TECHNICAL SUPPORT SPECIALIST, Stop date: 04/25/17 8:50:00 IT TECHNICAL SUPPORT SPECIALIST cyclobenzap cyclobenzap No cyclobenza [facility] rine 10 [...] with with applicator applicator applicator ANTWAN MONCADA, [place] [address] [place] [address] [place] [address] APPLY TO APPLY TO APPLY TO AFFECTED [...] with with applicator applicator applicator ANTWAN, ANTWAN, [place] [address] [place] [address] [place] [address] APPLY TO APPLY TO APPLY TO AFFECTED [...] with with applicator applicator applicator ANTWAN MONCADA, [facility] [address] [place] [address] [place] [address] APPLY TO APPLY TO APPLY TO AFFECTED [...] with with applicator applicator applicator ANTWAN MONCADA, [place] [address] [place] [address] [place] [address] APPLY TO APPLY TO APPLY TO AFFECTED [...] with with applicator applicator applicator ANTWAN MONCADA, [facility] [address] [place] [address] [place] [address] APPLY TO APPLY TO APPLY TO AFFECTED [...] 31 gauge mL 31 x 15/64" x 1564" gauge x USE USE " [...] Immunizations Ordered Filled Immunization Date Status Comments [facility] e Immunization Name Name SARS-COV-2 COVID-19 2021-04-12 Completed Unive rsity of PFIZER VACCINE 00:00:00 [facility] SARS-COV-2 COVID-19 2020-08-24 Completed Unive rsity of PFIZER VACCINE 00:00:00 [facility] SARS-COV-2 COVID-19 2020-08-03 Completed Unive rsity of PFIZER VACCINE 00:00:00 [facility] Influenza Virus 2018-06-26 Completed Universit y of Vaccine Quad .5 mL 00:00:[address] [facility] 6+ MO Branch Vital Signs Vital Name Observation Time Observation Value Comments Source BP Diastolic 2022-04-11 00:00:00 70 mm[Hg] [facility] ed[facility] Height 2022-04-11 00:00:00 70 [in_i] [facility] ical BMI (Body Mass Index) 2022-04-11 00:00:00 49.5 kg/m2 [facility] Medical BP Systolic 2022-04-11 00:00:00 130 mm[Hg] [facility] Polo edical Body Weight 2022-04-11 00:00:00 345 [lb_av] [facility] edical BP Diastolic 2021-09-24 00:00:00 60 mm[Hg] [facility] edical Height 2021-09-24 00:00:00 70 [in_i] [facility]i Polo ical BMI (Body Mass Index) 2021-09-24 00:00:00 46.9 kg/m2 [facility] Medical BP Systolic 2021-09-24 00:00:00 140 mm[Hg] [facility]i Polo edical Body Weight 2021-09-24 00:00:00 327 [lb_av] [facility] Pol[facility] edical BP Diastolic 2020-09-13 00:00:00 80 mm[Hg] [facility] Polo edical Height 2020-09-13 00:00:00 70 [in_i] [facility]i Polo edical BMI (Body Mass Index) 2020-09-13 00:00:00 45.3 kg/m2 [facility] Medical BP Systolic 2020-09-13 00:00:00 142 mm[Hg] [facility]i Polo edical Body Weight 2020-09-13 00:00:00 316 [lb_av] [facility] Polo edical Height 2017-06-05 17:46:00 177.8 cm [facility] [place]aught[place] Weight 2017-06-05 17:46:00 [facility] Mitesh BMI Calculated 2017-06-05 17:46:00 Memori al Mitesh Systolic (mm Hg) 2017-06-05 17:46:00 Chuck rial Haughton Diastolic (mm Hg) 2017-06-05 17:46:00 Mem orial [place] Temperature Oral (F) 2017-06-05 17:46:00 99.3 F [facility] [place] Heart Rate 2017-06-05 17:46:00 [facility] [place] BMI Calculated 2017-04-29 15:23:00 Memori al Mitesh Weight 2017-04-29 15:23:00 [facility] [place] Height 2017-04-29 15:23:00 177.8 cm Memorial Mitesh Heart Rate 2017-04-29 15:00:00 [facility] [place] Respitory Rate 2017-04-29 15:00:00 Memori al Mitesh Systolic (mm Hg) 2017-04-29 15:00:00 Chuck rial [place]aughton Diastolic (mm Hg) 2017-04-29 15:00:00 Mem orial [place] Procedures Procedure Date / Time Performing Clinician Source Performed SARS-COV-2 COVID-19 2021-04-12 22:54:16 Doctor Unassigned, No [facility] [place] VACCINE,0.3ML,IM Name Medical Branch (PFIZER) Drainage of Skin 2019-11-02 00:00:00 [facility] sanjiv Abscess Myelography via lumbar 2017-04-29 16:14:00 Memor ial Mitesh injection, including radiological supervision and interpretation; thoracic Myelography via lumbar 2017-04-29 16:14:00 Memor ial Haughton injection, including radiological supervision and interpretation; lumbosacral NJX INTERLAMINAR 2017-04-25 14:50:00 [facility] [place] Lumbar epidural [facility] [place] injection Lumbar epidural steroid [facility] Mitesh injection Nose operation [facility] Operation [facility]aught[place] Plan of Care Planned Activity Planned Date Details Comments Source Diagnostic Test Pending 2022-04-11 00:00:00 glucose, [facility] fingerstick, blood [code = glucose, fingerstick, blood] Future Appointment 2022-10-07 00:00:00 [facility] Alejandro Cotter, [address]; [facility] [address], [place] [address] Encounters Start End Encounter Admission Attending Care Care Encounter Source Date/Time Date/Time Type Type Clinicians Facility Department ID 2022-07-15 2022-07-15 Outpatient GC_EDEC_Hay PRIV PRIV [id number] [facility] 00:00:00 00:00:00 es_A [id number] Medica l 2022-07-15 2022-07-15 Outpatient GC_EDEC_Hay PRIV PRIV [id number] [facility] 00:00:00 00:00:00 es_A [id number] Medica l 2022-07-15 2022-07-15 [facility] 20 [facility] 00:00:00 00:00:00 [facility] Va[facility], GC_EDEC_[facility] SASHA-WAISTLINE JOINER-C: terri [address], [facility] [address], [place] [address] , Ph. 2022-07-14 2022-07-14 Outpatient GC_EDEC_Hay PRIV PRIV [id number] [facility] 00:00:00 00:00:00 es_A [id number] Medica l 2022-04-11 2022-04-11 Outpatient GC_EDEC_Hay PRIV PRIV [id number] [facility] 00:00:00 00:00:00 es_A [id number] Medica l 2022-04-11 2022-04-11 [facility] [id number] [facility] 00:00:00 00:00:00 [facility] Medic kaila Cotter, GC_EDEC_Fidencio IRRIGATION TAX ASSESSOR COLLECTOR-WAISTLINE JOINER-C: terri [address] [facility] [address], [place] [address] , Ph. 2022-04-10 2022-04-10 Outpatient GC_EDEC_Hay PRIV PRIV [id number] [facility] 00:00:00 00:00:00 es_A [id number] Medica l 2022-01-04 2022-01-04 Outpatient GC_EDEC_Hay PRIV PRIV [id number] [facility] 00:00:00 00:00:00 es_A [id number] Medica l 2021-12-31 2021-12-31 Outpatient GC_EDEC_Hay PRIV PRIV [id number] [facility] 00:00:00 00:00:00 es_A [id number] Medica l 2021-09-24 2021-09-24 Outpatient GC_EDEC_Hay PRIV PRIV [id number] [facility] 11:24:00 11:24:00 es_A [id number] Medica l 2021-09-24 2021-09-24 Outpatient Kit [facility] [id number] 00:00:00 00:00:00 Ellen [id number] [facility] [id number] 2021-09-24 2021-09-24 Ellen [facility] 02 [facility] 00:00:00 00:00:00 [facility] kaila Pantoja MD: GC_EDEC_Pas [address] Office* [facility] [address], [place] [address] , Ph. 2021-09-20 2021-09-20 Outpatient GC_EDEC_Hay PRIV PRIV [id number] [facility] 03:44:00 03:44:00 es_A [id number] Medica l 2021-04-12 2021-04-12 Outpatient Florencio SLOAN [facility] [id number] [facility] 16:30:00 16:30:[address] [facility] 2021-04-12 2021-04-12 Imm/Inj Nurse, Adc Pob Immunization [facility] [id number] [facility] 16:14:33 16:14:42 Visit Paul Sloan 350.1.13 .[facility] [id number] Elizabeth zavala KARANNAE [phone] Az dical [address] 2021-01-16 2021-01-16 Outpatient GC_EDEC_Hay PRIV PRIV [id number] [facility] 07:11:00 07:11:00 es_A [id number] Medica l 2020-09-25 2020-09-25 Outpatient GC_EDEC_Hay PRIV PRIV 211 [id number] [facility] 02:20:00 02:20:00 es_A [id number] Medica l 2020-09-19 2020-09-19 Outpatient GC_EDEC_Hay PRIV PRIV [id number] [facility] 02:41:00 02:41:00 es_A [id number] Medica l 2020-09-13 2020-09-13 Outpatient GC_EDEC_Hay PRIV PRIV [id number] [facility] 06:01:00 06:01:00 es_A [id number] Medica l 2020-09-13 2020-09-13 Outpatient Pantoja, PRIV PRIV [id number] 00:00:00 00:00:00 Ellen [id number] [facility] [id number] 2020-09-13 2020-09-13 Ellen [facility] [id number] [facility] 00:00:00 00:00:00 [facility] Medic kaila Pantoja MD: GC_EDEC_Pas 6243 [facility] Office* [facility], [place] [address], [place] [address] , Ph. 2020-09-11 2020-09-11 Outpatient GC_EDEC_Hay PRIV PRIV [id number] [facility] 12:06:00 12:06:00 es_A [id number] Medica l 2020-09-06 2020-09-06 Outpatient GC_EDEC_Hay PRIV PRIV [id number] [facility] 06:40:00 06:40:00 es_A [id number] Medica l 2020-08-24 2020-08-24 Outpatient Florencio GUILLERMINA, [facility] [id number] Univers 14:40:00 14:40:00 JAZMIN [facility] 2020-08-03 2020-08-03 Outpatient [facility] [id number] Univers 14:40:00 14:40:00 [facility] 2020-02-08 2020-02-08 Inpatient PILI Garcia, [facility] [id number] [facility] 08:00:00 08:00:00 Neel 42 [facility] 2020-02-02 2020-02-02 Outpatient Florencio CHINO HEALY [facility] [id number] Univers 11:30:00 11:30:00 [facility] 2020-02-02 2020-02-02 Laboratory Only, [facility] [id number] 11:14:48 11:29:48 Only Test [place] [id number] [place] [id number] [place] [id number] 2020-02-02 2020-02-02 Orders Doctor DULCE [id number] 00:00:00 00:00:00 Only Unassigned, [place] [id number] [place] [facility] [id number] 2020-01-05 2020-01-05 [facility] [id number] 00:00:00 00:00:00 Anupam [place] [id number] [place] [id number] Professio [phone] [facility] 220 [facility] 2019-06-16 2019-06-16 [facility] [id number] 00:00:00 00:00:00 Anupam [place] [id number] [place] [id number] Professio [id number] [address] 2019-06-09 2019-06-09 [facility] [id number] 00:00:00 00:00:00 Anupam [place] [id number] [place] [id number] Professio [phone] [address] 2019-02-10 2019-02-10 Telephone Atkins, [facility] [id number] 00:00:00 00:00:00 Anupam [place] 350.1.13.10 [place] 4.2.7.2.686 Professio [id number] [address] 2018-12-13 2018-12-13 Orders Doctor DULCE [id number] 00:00:00 00:00:00 Only Unassigned, KIMBERLY 350.1.13.10 [place] [facility] 4.2.7.2.686 [id number] 2018-11-27 2018-11-27 [facility] 1.2.840.114 [id number] 00:00:00 00:00:00 [place] 350.1.13.10 [place] 4.2.7.2.686 Professio [id number] [address] 2017-12-04 2017-12-04 Ambulatory nullFlavo [facility] [id number] Memoria 15:30:00 15:30:00 Pre-Reg r Clinic [address] 2017-12-04 2017-12-04 Ambulatory nullFlavo [facility] [id number] Memoria 15:30:00 15:30:00 Pre-Reg r Clinic [address] 2017-12-04 2017-12-04 Outpatient MHIE MHIE [id number] Memoria 10:30:00 10:30:[address] [place] [address] 2017-12-04 2017-12-04 Outpatient Dulce Lau MHMISCHER MHMISCHER [id number] 10:30:00 10:30:00 [facility] 2017-06-06 2017-06-08 Phone nullFlavo [facility] [id number] Memoria 20:31:00 05:59:59 Message r Clinic [address] 2017-06-06 2017-06-08 Phone nullFlavo [facility] [id number] Memoria 20:31:00 05:59:59 Message r Clinic [facility] 09 [facility] 2017-06-06 2017-06-07 Outpatient MHMISCHER MHMISCHER [id number] 14:31:00 23:59:59 09 2017-06-06 2017-06-07 Outpatient MHMISCHER MHMISCHER [id number] 14:31:00 23:59:59 09 2017-06-05 2017-06-06 Outpatient nullFlavo [facility] [id number] Memoria 17:30:00 05:59:59 r Clinic TM 05 [facility] 2017-06-05 2017-06-06 Outpatient nullFlavo [facility] [id number] Memoria 17:30:00 05:59:59 r Clinic [facility] 05 [facility] 2017-06-05 2017-06-05 Outpatient Sid Dulce MHMISCHER MHMISCHER [id number] 11:30:00 23:59:59 C 2017-06-05 2017-06-05 Outpatient Dulce Lau MISCHER MHMISCHER [id number] 11:30:00 23:59:59 C 2017-06-05 2017-06-05 Outpatient MHIE MHIE [id number] Memoria 11:30:00 11:30:00 05 [facility] 2017-04-30 2017-05-02 Phone nullFlavo [facility] [id number] Memoria 17:52:00 05:59:59 Message r Clinic [facility] 08 [facility] 2017-04-30 2017-05-02 Phone nullFlavo [facility] [id number] Memoria 17:52:00 05:59:59 Message r Clinic TM 08 [facility] 2017-04-30 2017-05-01 Outpatient MHMISCHER MHMISCHER [id number] 11:52:00 23:59:59 08 2017-04-29 2017-04-30 Outpatient [facility]Flavo [facility] [id number] Memoria 14:20:00 05:59:00 florencio Sagastume 00 [facility] 2017-04-29 2017-04-30 Outpatient [facility]Flavo [facility] [id number] Memoria 14:20:00 05:59:00 florencio Sagastume 00 [facility] 2017-04-29 2017-04-29 Outpatient Dulce Lau [facility] [id number] 08:20:00 23:59:00 C 00 2017-04-25 2017-04-26 Outpatient nullFlavo [facility] [id number] Memoria 14:00:00 05:59:59 r Clinic [facility] 06 marga KnottHaughton 2017-04-25 2017-04-26 Outpatient nullFlavo [facility] [id number] Memoria 14:00:00 05:59:59 r Clinic [facility] 06 [facility] 2017-04-24 2017-04-26 Phone nullFlavo [facility] [id number] Memoria 22:30:00 05:59:59 Message r Clinic [facility] 07 [facility] 2017-04-24 2017-04-26 Phone nullFlavo [facility] [id number] Memoria 22:30:00 05:59:59 Message r Clinic [facility] 07 [facility] 2017-04-24 2017-04-26 Phone nullFlavo [facility] [id number] Memoria 22:27:00 05:59:59 Message r Clinic TM 06 [facility] 2017-04-24 2017-04-26 Phone nullFlavo [facility] [id number] Memoria 22:27:00 05:59:59 Message r Clinic TM 06 marga Mitesh 2017-04-25 2017-04-25 Outpatient Edin, MHMISCHER MHMISCHER [id number] 08:00:00 23:59:59 Camacho Cook 06 2017-04-24 2017-04-25 Outpatient MHMISCHER MHMISCHER [id number] 16:30:00 23:59:59 07 2017-04-24 2017-04-25 Outpatient MHMISCHER MHMISCHER [id number] 16:27:00 23:59:59 06 2017-04-25 2017-04-25 Outpatient MHIE MHIE [id number] Memoria 08:00:00 08:00:00 06 marga Sagastume 2017-04-04 2017-04-04 Outpatient MHIE MHIE [id number] Memoria 13:00:00 13:00:00 04 marga Sagastume 2017-04-04 2017-04-04 Outpatient MHIE MHIE [id number] Memoria 13:00:00 13:00:00 04 marga Sagastume 2017-03-19 2017-03-20 Outpatient nullFlavo [facility] [id number] Memoria 15:22:00 04:59:00 r Mitesh 98 [facility] 2017-03-19 2017-03-20 Outpatient [facility] [id number] Memoria 15:22:00 04:59:00 r Mitesh 98 [facility] 2017-03-19 2017-03-19 Outpatient Manjinder Kowalski [facility] [id number] 10:22:00 23:59:00 kevin 2017-03-19 2017-03-19 Outpatient MHIE MHIE [id number] Memoria 08:45:00 08:45:00 03 [facility] 2017-03-19 2017-03-19 Outpatient MHIE MHIE [id number] Memoria 08:45:00 08:45:00 03 [facility] 2017-03-19 2017-03-19 Outpatient MHIE MHIE [id number] Memoria 07:45:00 07:45:00 02 [facility] 2017-03-19 2017-03-19 Outpatient MHIE MHIE [id number] Memoria 07:45:00 07:45:00 02 l Haught[place] 2016-09-04 2016-09-04 Outpatient MHIE MHIE [id number] Memoria 07:45:00 07:45:00 01 l Haughton 2016-09-04 2016-09-04 Outpatient MHIE MHIE [id number] Memoria 07:45:00 07:45:00 01 l Haughton 2016-08-19 2016-08-19 Outpatient MHIE MHIE [id number] Memoria 10:30:00 10:30:00 00 l Haughton 2016-08-19 2016-08-19 Outpatient MHIE MHIE [id number] Memoria 10:30:00 10:30:00 00 l Haughton Results Test Description Test Time Test Comments Results Result Comments Source Glucose [Mass/volume] in Capillary blood 2022-04-11 14:44:52 Test Item Value Reference Range Interpretation Comme nts glucose (test code = glucose) 190 mg/dL [facility] [[facility]/volume] in Capillary fbgmf1969-58-29 14:44:52 Test Item Value Reference Range Interpretation Comments glucose (test code = glucose) 190 mg/dL 65-99 [facility] [Mass/volume] in Capillary ownnj3739-91-76 14:44:52 Test Item Value Reference Range Interpretation Comments glucose (test code = glucose) 190 mg/dL 65-99 [facility] Medical[facility]ucose [Mass/volume] in Capillary sogyb7568-01-10 09:57:51 Test Item Value Reference Range Interpretation Comments glucose (test code = glucose) 264 mg/dL 65-99 [facility] FjfrkyfWDPGMM0285-02-74 15:58:00 Test Item Value Reference Range Interpretation Comments GLUBED (test code = GLUBED) 147 MG/DL 70-105 H HRKFPXUGHL1751-41-64 16:42:00 Test Item Value Reference Range Interpretation Comments PTT (test code = PTT) 29.4 s 22.9-35.8 [facility] AmericaHxnnprsGLXQXAKNJY1194-62-43 16:42:00 Test Item Value Reference Range Interpretation Comments PT (test code = PT) 12.8 s 12.0-14.7 [facility] AmericaQdwmewnCOVUDRDOFL0028-49-04 16:42:00 Test Item Value Reference Range Interpretation Comments INR (test code = INR) 0.96 0.85-1.17 [facility] AmericaWlwyryuITJERHYEKP6687-37-65 16:42:00 Test Item Value Reference Range Interpretation Comments PTT (test code = PTT) 29.4 s 22.9-35.8 [facility] AmericaUwycmndOXNALIVGLI3119-70-33 16:42:00 Test Item Value Reference Range Interpretation Comments PT (test code = PT) 12.8 s 12.0-14.7 [facility] AmericaKtxwgipWBCKZYPCXC0899-39-58 16:42:00 Test Item Value Reference Range Interpretation Comments INR (test code = INR) 0.96 0.85-1.17 [facility] AmericaHlygxtfIWFPEXPVGX0649-91-10 16:42:00 Test Item Value Reference Range Interpretation Comments PTT (test code = PTT) 29.4 s 22.9-35.8 [facility] AmericaUuvplaqWIHEITEZFN4575-95-88 16:42:00 Test Item Value Reference Range Interpretation Comments PT (test code = PT) 12.8 s 12.0-14.7 [facility] AmericaHxvalzwFIJJOMSMOQ1965 16:42:00 Test Item Value Reference Range Interpretation Comments INR (test code = INR) 0.96 0.85-1.17 [facility] AmericaTutihniHHBZICYURV2940-46-29 16:42:00 Test Item Value Reference Range Interpretation Comments PTT (test code = PTT) 29.4 s 22.9-35.8 [facility] AmericaFycxxowEIZWBFRBEI3290-79-71 16:42:00 Test Item Value Reference Range Interpretation Comments PT (test code = PT) 12.8 s 12.0-14.7 [place] [address]17-12-05 16:42:00 Test Item Value Reference Range Interpretation Comments INR (test code = INR) 0.96 0.85-1.17 [place] [address]17-12-05 15:26:00 Test Item Value Reference Range Interpretation Comments RDW (test code = RDW) 16.1 11.5-14.5 [facility] AmericaNewxbfhGBXHDQIXKC1194-87-11 15:26:00 Test Item Value Reference Range Interpretation Comments Platelet (test code = Platelet) 239 133-450 [facility] AmericaAvgkfujDEXTYJWAEI7295-71-32 15:26:00 Test Item Value Reference Range Interpretation Comments MPV (test code = MPV) 8.0 7.4-10.4 [facility]2017-12-05 15:26:00 Test Item Value Reference Range Interpretation Comments eGFR (test code = eGFR) 95 [facility]2017-12-05 15:26:00 Test Item Value Reference Range Interpretation Comments Creatinine Lvl (test code = Creatinine 0.92 0.50-1.40 Lvl) [facility]2017-12-05 15:26:00 Test Item Value Reference Range Interpretation Comments BUN (test code = BUN) 21 7-22 [facility] AmericaSawmivcWWJJXYKZEP2862-23-42 15:26:00 Test Item Value Reference Range Interpretation Comments MCV (test code = MCV) 84.7 80.0-94.0 [facility] AmericaHaejoadGZUXVLMTFN8166-61-23 15:26:00 Test Item Value Reference Range Interpretation Comments Hct (test code = Hct) 41.3 42.0-54.0 [facility] AmericaDyiudroRBTQOGXAJD3905-01-17 15:26:00 Test Item Value Reference Range Interpretation Comments MCH (test code = MCH) 27.9 pg 27.0-31.0 [place] [address]-12-05 15:26:00 Test Item Value Reference Range Interpretation Comments MCHC (test code = MCHC) 32.9 32.0-36.0 [facility] AmericaQltvqofYOMKKGMTML3538-43-11 15:26:00 Test Item Value Reference Range Interpretation Comments WBC (test code = WBC) 7.2 3.7-10.4 [facility] AmericaCaigkqiDBIFFQWWPF6397-70-06 15:26:00 Test Item Value Reference Range Interpretation Comments RBC (test code = RBC) 4.87 4.70-6.10 [facility] AmericaCvvajyqCJIVCADAMF1216-66-32 15:26:00 Test Item Value Reference Range Interpretation Comments Hgb (test code = Hgb) 13.6 14.0-18.0 [facility] AmericaNzooxsqXXTIYPVHBZ0408-23-04 15:26:00 Test Item Value Reference Range Interpretation Comments RDW (test code = RDW) 16.1 11.5-14.5 [facility] AmericaUboofvtNQZWHPKLBH8920-94-67 15:26:00 Test Item Value Reference Range Interpretation Comments Platelet (test code = Platelet) 239 133-450 [facility] AmericaXhibbnbDKTDPTUDPK9834-02-01 15:26:00 Test Item Value Reference Range Interpretation Comments MPV (test code = MPV) 8.0 7.4-10.4 [facility]2017-12-05 15:26:00 Test Item Value Reference Range Interpretation Comments eGFR (test code = eGFR) 95 [facility]2017-12-05 15:26:00 Test Item Value Reference Range Interpretation Comments eGFR (test code = eGFR) 95 [facility]2017-12-05 15:26:00 Test Item Value Reference Range Interpretation Comments Creatinine Lvl (test code = Creatinine 0.92 0.50-1.40 Lvl) [facility]2017-12-05 15:26:00 Test Item Value Reference Range Interpretation Comments BUN (test code = BUN) 21 7-22 [facility] AmericaFezotocRRRSGJIACD4612-25-93 15:26:00 Test Item Value Reference Range Interpretation Comments MCV (test code = MCV) 84.7 80.0-94.0 [facility]2017-12-05 15:26:00 Test Item Value Reference Range Interpretation Comments Creatinine Lvl (test code = Creatinine 0.92 0.50-1.40 Lvl) [facility] AmericaAxdpuqfLAUUYHUOMF7062-22-57 15:26:00 Test Item Value Reference Range Interpretation Comments Hct (test code = Hct) 41.3 42.0-54.[address]12-05 15:26:00 Test Item Value Reference Range Interpretation Comments MCH (test code = MCH) 27.9 pg 27.0-31.0 [facility] AmericaDaezaozWVHYFQJWCX2837-53-60 15:26:00 Test Item Value Reference Range Interpretation Comments MCHC (test code = MCHC) 32.9 32.0-36.0 [facility] AmericaQzflubpXUTIWGZAQI2041-91-17 15:26:00 Test Item Value Reference Range Interpretation Comments WBC (test code = WBC) 7.2 3.7-10.4 [facility] AmericaMwbwnixKBUIYDNJJT7095-18-03 15:26:00 Test Item Value Reference Range Interpretation Comments RBC (test code = RBC) 4.87 4.70-6.10 [facility] AmericaWkiiuvlOJKGVCNSCG6865-38-80 15:26:00 Test Item Value Reference Range Interpretation Comments Hgb (test code = Hgb) 13.6 14.0-18.0 [facility] AmericaQpknzzqZYDMZWSOFC2408-27-56 15:26:00 Test Item Value Reference Range Interpretation Comments RDW (test code = RDW) 16.1 11.5-14.5 [facility] AmericaDgirxzoIWMKGGUWOL4983-86-86 15:26:00 Test Item Value Reference Range Interpretation Comments Platelet (test code = Platelet) 239 133-450 [facility] AmericaGaakcraENAZZIXMED9765-35-51 15:26:00 Test Item Value Reference Range Interpretation Comments MPV (test code = MPV) 8.0 7.4-10.4 [facility]2017-12-05 15:26:00 Test Item Value Reference Range Interpretation Comments BUN (test code = BUN) 21 7-22 [facility] AmericaLskcoimDMZUGGBSVU6638-42-04 15:26:00 Test Item Value Reference Range Interpretation Comments MCV (test code = MCV) 84.7 80.0-94.0 [facility] AmericaMfhccjlUHAYLXNMIW0800-51-85 15:26:00 Test Item Value Reference Range Interpretation Comments Hct (test code = Hct) 41.3 42.0-54.0 [facility] AmericaIjgcgdgIRTFORBXSI8927-78-19 15:26:00 Test Item Value Reference Range Interpretation Comments MCH (test code = MCH) 27.9 pg 27.0-31.0 [facility] AmericaNwmvzkcCQTAWPEDGK1638-20-80 15:26:00 Test Item Value Reference Range Interpretation Comments MCHC (test code = MCHC) 32.9 32.0-36.0 [facility] AmericaVmsagxjUFJDWJVYEL3045-89-40 15:26:00 Test Item Value Reference Range Interpretation Comments WBC (test code = WBC) 7.2 3.7-10.4 [facility] AmericaVqrvfdqXTCLJBBUAQ8170-63-69 15:26:00 Test Item Value Reference Range Interpretation Comments RBC (test code = RBC) 4.87 4.70-6.10 [facility] AmericaGbgeupbSYKNTZSJKN1507-22-75 15:26:00 Test Item Value Reference Range Interpretation Comments Hgb (test code = Hgb) 13.6 14.0-18.0 [facility] AmericaFcinxrfYYPYHUJFMR6318-10-39 15:26:00 Test Item Value Reference Range Interpretation Comments RDW (test code = RDW) 16.1 11.5-14.5 [facility] AmericaVuakkrcOYXWVHAPSS2452-50-90 15:26:00 Test Item Value Reference Range Interpretation Comments Platelet (test code = Platelet) 239 133-450 [facility] AmericaIfusjepFMQEPIUARB2130-64-71 15:26:00 Test Item Value Reference Range Interpretation Comments MPV (test code = MPV) 8.0 7.4-10.4 [facility]2017-12-05 15:26:00 Test Item Value Reference Range Interpretation Comments eGFR (test code = eGFR) 95 [facility]2017-12-05 15:26:00 Test Item Value Reference Range Interpretation Comments Creatinine Lvl (test code = Creatinine 0.92 0.50-1.40 Lvl) [facility]2017-12-05 15:26:00 Test Item Value Reference Range Interpretation Comments BUN (test code = BUN) 21 7-22 [facility] AmericaUrgtmhaTCPZRXCUNL2237-90-26 15:26:00 Test Item Value Reference Range Interpretation Comments MCV (test code = MCV) 84.7 80.0-94.0 [facility] AmericaTaoigipSQPVVCYIHO3238-92-99 15:26:00 Test Item Value Reference Range Interpretation Comments Hct (test code = Hct) 41.3 42.0-54.0 [place] [address]17-12-05 15:26:00 Test Item Value Reference Range Interpretation Comments MCH (test code = MCH) 27.9 pg 27.0-31.0 [facility] AmericaXclkxjyGJNHBADJRT5226-87-36 15:26:00 Test Item Value Reference Range Interpretation Comments MCHC (test code = MCHC) 32.9 32.0-36.0 [facility] AmericaCsnyoleYEZCRQNEBV4694-76-49 15:26:00 Test Item Value Reference Range Interpretation Comments WBC (test code = WBC) 7.2 3.7-10.4 [facility] AmericaPddgdsrNRGWRDXCWJ7189-90-13 15:26:00 Test Item Value Reference Range Interpretation Comments RBC (test code = RBC) 4.87 4.70-6.10 [facility] AmericaDvyzubgVZHBLJETGR0171-74-76 15:26:00 Test Item Value Reference Range Interpretation Comments Hgb (test code = Hgb) 13.6 14.0-18.0 [place] [id number] 05:57:00 Test Item Value Reference Range Interpretation [...] ( 4 - SerumAlbumin)] EGFR if >60 [place] (test code mL/min/1.73m\\ = EGFRAA) S\\2 EGFR if Non- >60 Estimate d Glomerular [place] (test code mL/min/1.73m\\ Filtrat ion Rate (eGFR) [...] and management of c hronic kidney failure. [facility] WITH AUTO [id number] 05:42:00 Test Item Value Reference Range Interpretation [...] code = 1.0 % 0.0-0.[address] [facility] 05:53:00 Test Item Value Reference Range Interpretation [...] ( 4 - SerumAlbumin)] EGFR if >60 [place] (test code mL/min/1.73m\\ = EGFRAA) S\\2 EGFR if Non- >60 Estimate d Glomerular [place] (test code mL/min/1.73m\\ Filtrat ion Rate (eGFR) [...] and management of c hronic kidney failure. [facility] WITH AUTO [id number] 05:27:00 Test Item Value Reference Range Interpretation [...] code = 1.7 % 0.0-0.[address] [facility] 04:36:00 Test Item Value Reference Range Interpretation [...] ( 4 - SerumAlbumin)] EGFR if >60 [place] (test code mL/min/1.73m\\ = EGFRAA) S\\2 EGFR if Non- >60 Estimate d Glomerular [place] (test code mL/min/1.73m\\ Filtrat ion Rate (eGFR) [...] and management of c hronic kidney failure. [facility] WITH AUTO [id number] 04:14:00 Test Item Value Reference Range Interpretation [...] code = 1.9 % 0.0-0.[address] [facility] 04:40:00 Test Item Value Reference Range Interpretation [...] ( 4 - SerumAlbumin)] EGFR if >60 [place] (test code mL/min/1.73m\\ = EGFRAA) S\\2 EGFR if Non- >60 Estimate d Glomerular [place] (test code mL/min/1.73m\\ Filtrat ion Rate (eGFR) [...] and management of c hronic kidney failure. [facility] WITH AUTO [id number] 04:09:00 Test Item Value Reference Range Interpretation [...] code = 2.4 % 0.0-0.[address] [facility]ide[facility]ULT[facility], [id number] 06:50:00To start 15mins after 1st cultureSpecimen: BloodCollected: 01/18/2017 04:05 Status: Final Last Updated: 01/23/2017 06:49 (1) To jszsw93olqv after 1st culture Culture Result (Final) (Final) No [facility]-fkinCULTLAC[facility], [id number] 06:50:00Specimen: BloodCollected: 01/18/2017 03:55 Status: Final Last Updated: 01/23/2017 06:49 Culture Result (Final) (Final) No Growth [facility] 5 Days[facility]-BeattyCBC WITH AUTO [id number] 04:31:00 Test Item Value Reference Range Interpretation [...] code = 3.4 % 0.0-0.4 H IG%) [facility]-GaijpoSCY2779-63-55 04:19:00 Test Item Value Reference Range Interpretation [...] ( 4 - SerumAlbumin)] EGFR if >60 [place] (test code mL/min/1.73m\\ = EGFRAA) S\\2 EGFR if Non- >60 Estimate d Glomerular [place] (test code mL/min/1.73m\\ Filtrat ion Rate (eGFR) [...] and management of c hronic kidney failure. [facility] WITH AUTO [id number] 04:57:00 Test Item Value Reference Range Interpretation [...] 4.0 % 0.0-0.4 H IG%) CBC AUTO [facility]-FfjbabOON4134-04-20 04:35:00 Test Item Value Reference Range Interpretation [...] ( 4 - SerumAlbumin)] EGFR if >60 [place] (test code mL/min/1.73m\\ = EGFRAA) S\\2 EGFR if Non- >60 Estimate d Glomerular [place] (test code mL/min/1.73m\\ Filtrat ion Rate (eGFR) [...] and management of c hronic kidney failure. [facility] WITH AUTO [id number] 05:01:00 Test Item Value Reference Range Interpretation [...] 4.5 % 0.0-0.4 H IG%) CBC AUTO diffRipon Medical Center-CrjahlHYM2884-34-00 04:56:00 Test Item Value Reference Range Interpretation [...] ( 4 - SerumAlbumin)] EGFR if >60 [place] (test code mL/min/1.73m\\ = EGFRAA) S\\2 EGFR if Non- >60 Estimate d Glomerular [place] (test code mL/min/1.73m\\ Filtrat ion Rate (eGFR) [...] and management of c hronic kidney failure. [facility] WITH AUTO [id number] 05:57:00 Test Item Value Reference Range Interpretation [...] code = 4.8 % 0.0-0.4 H IG%) [facility] CenterCmkulf-AocmlhQAGDBWPFH2554-67-27 05:41:00 Test Item Value Reference Range Interpretation Comments Magnesium (test code = MG) 2.0 mg/dl 1.6-2.3 [facility]-EgdamkEMR5395-88-41 05:41:00 Test Item Value Reference Range Interpretation [...] ( 4 - SerumAlbumin)] EGFR if >60 [place] (test code mL/min/1.73m\\ = EGFRAA) S\\2 EGFR if Non- >60 Estimate d Glomerular [place] (test code mL/min/1.73m\\ Filtrat ion Rate (eGFR) [...] and management of c hronic kidney failure. [facility]-fkinLACTIC ACID [id number] 06:43:00 Test Item Value Reference Range Interpretation Comments LACTATE (test code = LAC) 0.9 mmol/l 0.7-2.0 [facility]-fkinGLYCOSALATED YKRYMGYHOH8636-57-91 05:41:00 Test Item Value Reference Range Interpretation Comments Hemoglobin A1C (test 9.06 % 4.3-6.0 A code = GLYCO) Mean Plasma Glucose 245 mg/dl 90-180 WHEN BONIFACIO T RESULTS FOR (test code = MPG) A1C EXCEED 14.0, THE LINEAR LIMIT OF THE INSTRUMENT, THE CALCULATED RESU LT FOR THE MEAN GLUCOS E IS NOT RELIABLE. [facility]-LufkinCORONARY [id number] 05:09:00 Test Item Value Reference Range Interpretation [...] (test code = 37 mg/dl 30-60 VLDL) [facility] CenterSaxcka-PthlzkJRHRYXEIR7940-88-26 04:51:00 Test Item Value Reference Range Interpretation Comments Magnesium (test code = MG) 2.1 mg/dl 1.6-2.3 [facility]-TriiwsAGB3866-56-61 04:51:00 Test Item Value Reference Range Interpretation Comments CPK (test code = CPK) 93 U/L 30-135 [facility]inLIP[facility], [id number] 04:43:00 Test Item Value Reference Range Interpretation Comments Lipase (test code = LIPA) 116 U/L 8-223 [facility]-DbzuxbRBV4422-78-88 04:43:00 Test Item Value Reference Range Interpretation [...] ( 4 - SerumAlbumin)] EGFR if >60 [place] (test code mL/min/1.73m\\ = EGFRAA) S\\2 EGFR if Non- >60 Estimate d Glomerular [place] (test code mL/min/1.73m\\ Filtrat ion Rate (eGFR) [...] and management of c hronic kidney failure. [facility] (HEMOGRAM ONLY)2017-01-18 04:37:00 Test Item Value Reference [...] PLATELET CLUMPI NG. THIS IS A HEMOGRAM ONLYAsc[facility]
[2022-09-19 19:59] LABS: Hematocrit 35.4 % (39.6-49.0); Lymphocytes % 13.5 % (15.3-44.8); MCV 80.8 fL (80-100); MPV 7.5 fL (7.6-11.3); RBC Red Blood Cell Count 4.38 M/uL (4.33-5.43)
[2022-09-19] MEDS ORDERED: IPRATROPIUM BROM 0.5MG/2.5ML ONE (20:13)
[2022-09-19] MEDS ORDERED: ALBUTEROL 2.5 MG/3 ML NEB SOL ONE (20:13)
[2022-09-19 20:15] LABS: Albumin 3.3 g/dL (3.4-5.0); Bilirubin Total 0.3 mg/dL (0.2-1.0); Protein, Total 7.3 g/dL (6.4-8.2)
[2022-09-19 20:19] LABS: Troponin High Sensitivity 7.8 pg/mL (<58.9)
--- NOTE | 2022-09-19 20:42 | ER ---
Nurse's Notes [facility] Name: Nicola Harvey Age: 57 yrs Sex: Male : 1965 Arrival Date: 09/19/2022 Time: 18:42 Bed 9 Private MD: Diagnosis: Acute upper respiratory infection, unspecified;Cough;Type 1 diabetes mellitus with hyperglycemia;Morbid (severe) obesity with alveolar hypoventilation Presentation: 09/19 18:56 Chief complaint: Patient states: "I've had scratchy throat since yesterday. I started ll1 having runny pam, cough, congestion, chills, and SOB that started this morning.". Coronavirus screen: Vaccine status: Patient reports receiving the 2nd dose of the covid vaccine. Ebola Screen: No symptoms or risks identified at this time. Initial Sepsis Screen: Does the patient meet any 2 criteria? No. Patient's initial sepsis screen is negative. Does the patient have a suspected source of infection? No. Patient's initial sepsis screen is negative. Risk Assessment: Do you want to hurt yourself or someone else? Patient reports no desire to harm self or others. Onset of symptoms was September 19, 2022. 18:56 Method Of Arrival: Ambulatory 1 18:56 Acuity: ANGE 3 ll1 Triage Assessment: 19:01 General: Appears uncomfortable, Behavior is cooperative. Pain: Denies pain. Neuro: ll1 Slaughter Agitation-Sedation Scale (RASS): 0 - Alert and Calm Level of Consciousness is awake, alert, obeys commands, Oriented to person, place, time, situation, Appropriate for age. Cardiovascular: Patient's skin is warm and dry. Respiratory: Reports shortness of breath cough that is Airway is patent Respiratory effort is even, unlabored, Respiratory pattern is regular, symmetrical. Respiratory: Onset: The symptoms/episode began/occurred this morning, the patient has mild shortness of breath. Derm: Skin is pink, warm \\T\\ dry. Musculoskeletal: Range of motion: intact in all extremities. Historical: - Allergies: 19:00 Invokana; ll1 19:00 Jardiance; ll1 - Home Meds: 19:00 hydralazine 100 mg Oral tab 1 tab 3 times per day [Active]; Metoprolol Tartrate Oral ll1 [Active]; metformin 1,000 mg Oral tab 1 tab 2 times per day [Active]; lisinopril Oral [Active]; Lasix 40 mg Oral tab 1 tab 2 times per day [Active]; Humulin R 100 unit/mL soln [Active]; - PMHx: 19:00 CHF; Hypertension; Hyperlipidemia; Diabetes - IDDM; chronic back pain; Obesity; ll1 - PSHx: 19:00 addenoidectomy; Cholecystectomy; rhinoplasty; ll1 - Immunization history:: Adult Immunizations up to date. - Social history:: Smoking status: Patient denies any tobacco usage or history of. Screenin:11 [facility] ED Fall Risk Assessment (Adult) History of falling in the last 3 months, nj1 including since admission No falls in past 3 months (0 pts) Confusion or Disorientation No (0 pts) Intoxicated or Sedated No (0 pts) Impaired Gait No (0 pts) Mobility Assist Device Used No (0 pt) Altered Elimination No (0 pt) Score/Fall Risk Level 0 - 2 = Low Risk Oriented to surroundings, Maintained a safe environment, Hourly rounding (assess needs \\T\\ fall precautionary measures) done. 20:11 Abuse screen: Denies threats or abuse. Denies injuries from another. Nutritional nj1 screening: No deficits noted. Tuberculosis screening: No symptoms or risk factors identified. Assessment: 20:10 Reassessment: Patient appears in no apparent distress at this time. Patient and/or nj1 family updated on plan of care and expected duration. Pain level reassessed. Patient is alert, oriented x 3, equal unlabored respirations, skin warm/dry/pink. 20:10 Cardiovascular: Patient's skin is warm and dry. Respiratory: Reports cough that is nj1 Airway is patent Respiratory effort is even, unlabored. Vital Signs: 18:56 BP 166 / 71; Pulse 75; Resp 20; Temp 98.8(O); Pulse Ox 96% on R/A; Weight 108.86 kg; ll1 Height 5 ft. 9 in. ; Pain 0/10; 22:41 BP 152 / 84; Pulse 76; Resp 18; Pulse Ox 100% ; mb9 18:56 Body Mass Index 35.44 (108.86 kg, 175.26 cm) ll1 18:56 Pain Scale: Adult 1 ED Course: 18:45 Patient arrived in ED. ts1 18:48 Osiris Quiroz FNP-C is [facility]. kb 18:48 Esvin Akins DO is Attending Physician. kb 18:56 Arm band placed on. ll1 19:00 Triage completed. ll1 19:40 Weston Carty MD is Attending Physician. kb 19:42 BNP Sent. bc6 19:42 Troponin High Sensitivity Sent. bc6 19:42 Strep Sent. bc6 19:42 SARS-COV-2 RT PCR Sent. bc6 19:43 Flu Sent. bc6 19:43 Blood Culture Adult (2) Sent. bc6 19:43 CBC with Diff Sent. bc6 19:43 CMP Sent. bc6 19:43 Lactate w/ 2H reflex if indic. Sent. bc6 19:43 Initial lab(s) drawn, by me, sent to lab. Inserted saline lock: 20 gauge in left bc6 antecubital area, using aseptic technique. 19:57 Lori Dash, RN is Primary Nurse. nj1 19:58 Strep Sent. mb9 19:58 SARS-COV-2 RT PCR Sent. mb9 19:58 Flu Sent. mb9 19:58 Troponin High Sensitivity Sent. mb9 19:58 BNP Sent. mb9 19:58 CMP Sent. mb9 19:58 CBC with Diff Sent. mb9 19:58 Blood Culture Adult (2) Sent. mb9 20:11 Patient has correct armband on for positive identification. Call light in reach. nj1 20:40 Latoya Mcknight MD is Referral Physician. [facility] 21:00 Chest Single View XRAY In Process Unspecified. EDMS 21:47 No provider procedures requiring assistance completed. nj1 22:41 IV discontinued, intact, bleeding controlled, No redness/swelling at site. Pressure mb9 dressing applied. Administered Medications: 20:11 Drug: Albuterol Inhalation 2.5 mg Route: Inhalation; nj1 20:11 Drug: Ipratropium Inhalation Aerosol 0.5 mg Route: Inhalation; nj1 21:25 Drug: AZITHromycin PO 500 mg Route: PO; nj1 21:30 Drug: Rocephin IV 1 grams Route: IV; Rate: per protocol; Site: left antecubital; nj1 Medication: 21:47 VIS not applicable for this client. nj1 Outcome: 20:41 Discharge ordered by . leigh 22:41 Discharged to home ambulatory. mb9 22:41 Condition: stable 22:41 Discharge instructions given to patient, Instructed on discharge instructions, follow up and referral plans. Demonstrated understanding of instructions, follow-up care, medications, Prescriptions given X 4. 22:41 Patient left the ED. mb9 Signatures: Dispatcher [employer] EDOsiris Lynne, REFRIGERATION OPERATOR-C REFRIGERATION OPERATOR-CkWeston Serra MD MD cha Lewis, Lynsay, RN RN ll1 Katy Adair RN RN mb9 Stacey Morgan 6 Lori Dash RN RN nj1 Patsy Mora, PAS PAS ts1
--- NOTE | 2022-09-19 20:42 | EDPHYS ---
Physician Documentation [facility] Name: Nicola Harvey Age: 57 yrs Sex: Male : 1965 Arrival Date: 09/19/2022 Time: 18:42 Bed 9 Private MD: ED Physician Weston Carty HPI: 09/19 19:07 This 57 yrs old Male presents to ER via Ambulatory with complaints of kb Shortness Of Breath, Chest Congestion. 19:11 The patient has shortness of breath at rest. Onset: The symptoms/episode began/occurred kb this morning. Duration: The symptoms are continuous. The patient's shortness of breath is aggravated by exertion. Associated signs and symptoms: Pertinent positives: non-productive cough. Severity of symptoms: At their worst the symptoms were moderate in the emergency department the symptoms are unchanged. The patient has not experienced similar symptoms in the past. The patient has not recently seen a physician. Pt reports he had a scratchy throat last night and woke up with cough, congestion, runny nose, chills, malaise and shortness of breath. . Historical: - Allergies: 19:00 Invokana; ll1 19:00 Jardiance; ll1 - Home Meds: 19:00 hydralazine 100 mg Oral tab 1 tab 3 times per day [Active]; Metoprolol Tartrate Oral ll1 [Active]; metformin 1,000 mg Oral tab 1 tab 2 times per day [Active]; lisinopril Oral [Active]; Lasix 40 mg Oral tab 1 tab 2 times per day [Active]; Humulin R 100 unit/mL soln [Active]; - PMHx: 19:00 CHF; Hypertension; Hyperlipidemia; Diabetes - IDDM; chronic back pain; Obesity; ll1 - PSHx: 19:00 addenoidectomy; Cholecystectomy; rhinoplasty; ll1 - Immunization history:: Adult Immunizations up to date. - Social history:: Smoking status: Patient denies any tobacco usage or history of. ROS: 19:00 Abdomen/GI: Negative for abdominal pain, nausea, vomiting, diarrhea, and constipation. kb 19:00 Constitutional: Positive for chills, malaise. 19:00 ENT: Positive for rhinorrhea, sinus congestion, sore throat. 19:00 Respiratory: Positive for cough, shortness of breath. 19:00 All other systems are negative. Exam: 19:02 Constitutional: This is a well developed, well nourished patient who is awake, alert, kb and in no acute distress. Head/Face: Normocephalic, atraumatic. ENT: Moist Mucous membranes Cardiovascular: Regular rate and rhythm with a normal S1 and S2. No gallops, murmurs, or rubs. No pulse deficits. Abdomen/GI: Soft, non-tender. No distention Skin: Warm, dry with normal turgor. Normal color. MS/ Extremity: Pulses equal, no cyanosis. Neurovascular intact. Full, normal range of motion. Neuro: Awake and alert, GCS 15, oriented to person, place, time, and situation. Moves all extremities. Normal gait. 19:02 Respiratory: mild respiratory distress is noted, moderate respiratory distress is noted, Respirations: labored breathing, Breath sounds: decreased breath sounds, that are moderate, are located in both bases, wheezing: that is moderate, is scattered. 19:29 ECG was reviewed by the Attending Physician. kb Vital Signs: 18:56 BP 166 / 71; Pulse 75; Resp 20; Temp 98.8(O); Pulse Ox 96% on R/A; Weight 108.86 kg; ll1 Height 5 ft. 9 in. ; Pain 0/10; 22:41 BP 152 / 84; Pulse 76; Resp 18; Pulse Ox 100% ; mb9 18:56 Body Mass Index 35.44 (108.86 kg, 175.26 cm) ll1 18:56 Pain Scale: Adult ll1 MDM: 18:48 Patient medically screened. kb 19:01 Data reviewed: vital signs, nurses notes. kb 19:08 Differential diagnosis: pneumonia, pulmonary edema, flu, covid, uri, bronchitis. Care kb significantly affected by the following chronic conditions: Diabetes, Hypertension, Congestive Heart Failure, Obesity. 19:40 Transition of care: After a detail discussion of the patient's case, care is kb transferred to Weston Carty MD. 09/19 18:54 Order name: Blood Culture Adult (2) 09/19 18:54 Order name: CBC with Diff; Complete Time: 20:18 kb 09/19 18:54 Order name: CMP; Complete Time: 20:18 kb 09/19 18:54 Order name: Lactate w/ 2H reflex if indic.; Complete Time: 20:38 kb 09/19 18:54 Order name: Flu; Complete Time: 20:18 kb 09/19 18:54 Order name: SARS-COV-2 RT PCR; Complete Time: 20:38 kb 09/19 18:54 Order name: Strep kb 09/19 19:28 Order name: Troponin High Sensitivity; Complete Time: 20:38 kb 09/19 19:28 Order name: BNP; Complete Time: 20:38 kb 09/19 20:12 Order name: Throat Culture EDWA 09/19 18:54 Order name: Chest Single View XRAY kb 09/19 18:54 Order name: EKG; Complete Time: 19:13 kb 09/19 18:54 Order name: Accucheck; Complete Time: 22:37 kb 09/19 18:54 Order name: Cardiac monitoring; Complete Time: 19:58 kb 09/19 18:54 Order name: EKG - Nurse/Tech; Complete Time: 19:43 kb 09/19 18:54 Order name: IV Saline Lock - Large Bore; Complete Time: 19:43 kb 09/19 18:54 Order name: Labs collected and sent; Complete Time: 19:43 kb EC:29 Rate is 69 beats/min. Rhythm is regular. QRS Sixes is Normal. [place] interval is normal at kb 152 msec. QRS interval is normal at 106 msec. QT interval is normal at 424 msec. Administered Medications: 20:11 Drug: Albuterol Inhalation 2.5 mg Route: Inhalation; nj1 20:11 Drug: Ipratropium Inhalation Aerosol 0.5 mg Route: Inhalation; nj1 21:25 Drug: AZITHromycin PO 500 mg Route: PO; nj1 21:30 Drug: Rocephin IV 1 grams Route: IV; Rate: per protocol; Site: left antecubital; nj1 Disposition: 19:11 Co-signature as Attending Physician, Esvin BEARDEN was immediately available on-site ms3 in the Emergency Department for consultation in the care of the patient. Disposition Summary: 09/19/22 20:41 Discharge Ordered Location: Home leigh Problem: new leigh Symptoms: have improved leigh Condition: Stable leigh Diagnosis - Acute upper respiratory infection, unspecified leigh - Cough leigh - Type 1 diabetes mellitus with hyperglycemia leigh - Morbid (severe) obesity with alveolar hypoventilation leigh Followup: leigh - With: Private Physician - When: 2 - 3 days - Reason: Recheck today's complaints, Continuance of care, Re-evaluation by your physician Followup: leigh - With: Latoya Mcknight MD - When: 2 - 3 days - Reason: Recheck today's complaints, Re-evaluation by your physician Discharge Instructions: - Discharge Summary Sheet leigh - Obesity, Adult leigh - Upper Respiratory Infection, Adult leigh - Cool Mist Vaporizer leigh - Upper Respiratory Infection, Adult, [id number] leigh - Diabetes Mellitus and Nutrition, Adult leigh - Cough, Adult leigh Forms: - Medication Reconciliation Form leigh - Thank You Letter leigh - Antibiotic Education [facility] - Prescription Opioid Use [facility] - Work release form mb9 Prescriptions: - albuterol sulfate 90 mcg/actuation Inhalation HFA Aerosol Inhaler - inhale 2 inhalation by INHALATION route every 4 to 6 hours as needed for [facility] shortness of breath or wheezing; 1 unit; Refills: 0, Product Selection Permitted - Tessalon Perles 100 mg Oral Capsule - take 2 capsule by ORAL route every 8 hours As needed; 30 capsule; Refills: 0, [facility] Product Selection Permitted - Guaifenesin AC 10-100 mg/5 mL Oral Liquid - take 10 milliliters by ORAL route every 4 hours As needed; 180 milliliter; leigh Refills: 0, Product Selection Permitted - Zithromax 500 mg Oral Tablet - take 1 tablet by ORAL route once daily for 5 days; 5 tablet; Refills: 0, [facility] Product Selection Permitted Signatures: Dispatcher [employer] Osiris Ann, WELLNESS AMBASSADOR-C ZENOBIA-Weston Felder MD MD cha Lewis, Lynsay, RN RN ll1 Esvin Akins DO DO ms3 Lori Dash RN RN nj1
--- NOTE | 2022-09-19 21:23 | RAD REPORT ---
EXAM DESCRIPTION: RADChest Single View09/19/2022 8:58 pm CLINICAL HISTORY: Cough;Congestion COMPARISON: Chest Single View dated 08/15/2022; Chest Single View dated 11/23/2021; Chest Single View d ated 10/02/2021; Chest Single View dated 08/28/2021 TECHNIQUE: Portable AP view of the chest. FINDINGS: The lungs are clear. No pneumothorax or effusion. The cardiomediastinal contours are unrem arkable. IMPRESSION: No acute cardiopulmonary process.
[2022-09-19] MEDS ORDERED: CEFTRIAXONE 1000 MG/VIAL ONE (21:29)
[2022-09-19] MEDS ORDERED: AZITHROMYCIN 250 MG TAB ONE (21:29)
[2022-09-19] MEDS ORDERED: NA CHLORIDE 0.9% 50 ML ONE (21:29)
[2022-09-19 23:27] VITALS: TEMP 98.8
[2022-09-19 23:33] VITALS: BP 152/84; O2SAT 100
--- NOTE | 2022-09-20 07:00 | EKG ---
Test Date: 2022-09-19 Test Time: 19:16:07 Meter Tester Polyphase: MAITE MEASUREMENT RESULTS: Intervals: Rate: 69 WI: 132 QRSD: 98 QT: 392 QTc: 420 [place]: P: 108 WI: 132 QRS: 81 T: 63 INTERPRETIVE STATEMENTS: Normal sinus rhythm Normal ECG Compared to ECG 08/15/2022 16:41:13 Ventricular premature complex(es) no longer present Incomplete right bundle-branch block no longer present Electronically Signed On 09-20-22 06:59:43 CDT by Ifeanyi Blood
--- NOTE | 2022-09-21 15:23 | EKG ---
Test Date: 2022-09-19 Test Time: 19:18:11 Budget Director: MAITE MEASUREMENT RESULTS: Intervals: Rate: 69 FL: 152 QRSD: 106 QT: 396 QTc: 424 [place]: P: 30 FL: 152 QRS: 73 T: 57 INTERPRETIVE STATEMENTS: Normal sinus rhythm Normal ECG Compared to ECG 09/19/2022 19:16:07 No significant changes Electronically Signed On 09-21-22 15:23:11 CDT by Neel Garcia
== END 2022-09-19 22:41 | disposition home or self-care (01) ==
LOC: ER 18:42
DX: J06.9 Acute upper respiratory infection, unspecified (principal); E10.65 Type 1 diabetes mellitus with hyperglycemia; Z79.4 Long term (current) use of insulin; E66.2 Morbid (severe) obesity with alveolar hypoventilation; Z20.822 Contact with and (suspected) exposure to COVID-19; I10 Essential (primary) hypertension; I50.9 Heart failure, unspecified; Z88.8 Allergy status to other drugs, medicaments and biological substances
CPT/HCPCS: 93005 ×2; 87040 ×2; 87070; 85025; 36415; 87081; 83605; 84484; 80053; 83880; 87804 ×2; 71045; U0003; J7613; J7644; J0696

== ENCOUNTER 2022-10-31 13:42 | Emergency (ER) | payer BC ==
--- OUTSIDE RECORDS SUMMARY | 2022-10-31 13:49 | XMS REPORT | Continuity of Care Document ---
:1965 Author Organization [facility] t Address [address] [place] [address] [address] [place] [address] Care Team Providers Name Role Phone Hope Barraza Primary Care Physician GC_EDEC_Hayes_A Attending Clinician Unavailable Ellen Pantoja Attending Clinician [phone] PAUL SLOAN Attending Clinician Unavailable Nurse, Adc Pob Immunization Attending Clinician Unavailable Paul Sloan DO Attending Clinician JAZMIN SARMIENTO Attending Clinician Unavailable Neel Garcia Attending Clinician Unavailable CHINO HEALY Attending Clinician Unavailable Only, Adc Test Attending Clinician Unavailable Doctor Unassigned, [place] Attending Clinician Unavailable Anupam Atkins MD Attending [...] Expiration Date S felecia [place] [id number] 2022 00:00:00 [place] (PPO[place] AETNA (POS) [id number] 2021 00:00:00 [place] - [id number] 2019 00:00:00 OUT OF STATE BLUE CROSS-[place]: [id number] ANTH BLUE CROSS (PPO) Problems Condition Condition [...] lower lower 00:00: [place] extremity extremity 00 [facility] sanjiv Branch Cellulitis Cellulitis Disease Active 2017-05 [...] 09:02:00 l Active 00:00: Mitesh 04/08/2017 00 [facility] M54.16 M54.16 Diagnosis Active 2016-052017-03-19 Me moria Active 0 10:29:00 l 03/19/2017 00:00: Gabo thomas [address] Abdominal Problem Resolve 2017-12-07 M emoria pain Abdominal d 00:03:51 l (finding) pain Mitesh (finding) Resolved Problem 12/07/2017 [facility] Chest pain Chest Problem Resolve 2017-12-07 Memoria (finding) pain d 00:03:51 l (finding) [place] Resolved Problem 12/07/2017 [facility] Chronic Chronic Problem Resolve 2017-12-07 M emoria back pain back pain d 00:03:51 l (disorder) (disorder) He rmann Resolved Problem 12/07/2017 [facility] Diabetes Diabetes Problem Active 2017-12-07 Memoria mellitus mellitus 00:03:51 l (disorder) (disorder) He rmann Active Problem 12/07/2017 [facility] Hyperchole Hyperchol Problem Active 2017-12-07 Memoria sterolemia esterolemi 00:03:51 l (disorder) eyad thomas (disorder) Active Problem 12/07/2017 [facility] Hypertensi Hypertens Problem Active 2017-12-07 Memoria ve liliana 00:03:51 l disorder, disorder, Herm chacorta systemic systemic arterial arterial (disorder) (disorder) Active Problem 12/07/2017 [facility] Morbid Morbid Problem Active 2017-12-07 Chuck jack obesity obesity 00:03:51 l (disorder) (disorder) He rmann Active Problem 12/07/2017 [facility] Prolapsed Prolapsed Problem Active 2017-12-07 Memoria lumbar lumbar 00:03:51 l interverte interverte He rmann bral disc bral disc (disorder) (disorder) Active Problem 12/07/2017 [facility] Allergies, Adverse Reactions, Alerts Allergy Allergy Status Severity Reaction(s) Onset Inactive Treating Comm ents Source Name Type Date Date Clinician No Known DA Active U 2020-0 [facility]01 [facility] No Known DA Active U [facility] Allergie 02-01 [facility] 00:00: [facility] 00 [facility] NO KNOWN Drug Active Univers ALLERGIE Class ity of S [facility] Social History Social Habit Start Date Stop Date Quantity Comments Source Alcohol intake 2018-07-21 2018-07-21 Current University of 00:00:00 00:00:00 non-drinker of [facility] alcohol Branch (finding) Tobacco use and 2018-04-09 2018-04-09 Never used Universit y of exposure 00:00:00 00:00:00 [facility] Sex [birth year] At [birth year] Universit y of 00:00:00 00:00:00 [facility] Smoking Status Start Date Stop Date Source Never Smoker [facility] Social History 2017-06-05 17:47:50 2017-06-05 17:47:50 [facility] Medications Ordered Filled Start Stop Current Ordering Indication Dosage Frequency Signature Comments Components Source Medication Medication Date Date Medication? Clinician (SIG) Name Name insulin 2018-05 Yes [id number] 60U inject 60 Univers regular 0-24 Units ity of human 500 00:00: under the Varinder as unit/mL 00 skin 3 Medical injection (three) Branch times daily before meals. E11. 65 Insulin Yes Each 3 Univers Syringe-Nee 7-03 (three) ity o f dle U-100 1 00:00: times [place] mL 31 gauge 00 daily Medical x 5/16 Syrg before Branch meals. E11.65 insulin Yes [id number] 1{each} 1 Each 3 Univers U-500 5-28 (three) ity of syringe-nee 00:00: times [place] dle 1/2 mL 00 daily Medical 31 gauge x before Branch " Syrg meals. E11.65 metformin Yes [id number] 1000mg Take 2 Univers ER 500 mg 5-28 tablets by ity of 24 hr 00:00: mouth 2 [place] tablet 00 (two) Medical times Branch daily with meals. glimepiride 2018- Yes [id number] 4mg Take 1 Univers 4 mg tablet 5-28 tablet by ity of 00:00: mouth 2 [place] 00 (two) Medical times Branch daily with meals. pravastatin Yes [id number] 20mg Take 1 Univers 20 mg 5-28 tablet by ity of tablet 00:00: mouth at [place] 00 bedtime. Medical Branch metoprolol Yes 50mg Take 50 mg U nivers tartrate 50 2-01 by mouth 2 it y of mg tablet 17:31: (two) [place] 53 times Medical daily. Branch lisinopril Yes 40mg Take 40 mg U nivers 40 mg 2-01 by mouth ity of tablet 17:31: daily. [place] [address] Medical Branch amLODIPine Yes 5mg Take 5 mg Un bria 5 mg tablet 2-01 by mouth ity of 17:31: daily. [place] [address] Medical Branch traMADOL 50 Yes [id number] 50mg Take 1 Univers mg tablet 06-26 [id number] tablet by ity of 00:00: mouth 2 [place] 00 (two) Medical times Branch daily as needed for Pain (scale 4-6) or Pain (scale 7-10). hydroCHLORO 2017-05 Yes [id number] 25mg Take 1 Univers thiazide 25 2-14 tablet by ity of mg tablet 00:00: mouth [place] 00 daily. Medical Branch exenatide 2017-05 Yes [id number] 2mg inject 2 Univers microsphere 1-14 mg [...] , # 150 tab, 2 Refill(s), Pharmacy: [facility] diclofenac 2016-05 Yes 75 mg = 1 Me moria sodium 75 2-01 tab, PO, l mg oral 14:52: BID, PRN Gabo n enteric 00 Pain Score coated, 7-10, # 60 delayed-rel tab, 2 ease tablet Refill(s), Pharmacy: [facility] Cyclobenzap 2016-05 Yes 10 mg = 1 M emoria rine 2-01 tab, PO, l hydrochlori 14:52: BID, # 60 H ermann de 10 MG 00 tab, 2 Oral Tablet Refill(s), [Flexeril] Pharmacy: [place] [address] amitriptyli 2016-05 Yes 10 mg = 1 M emoria ne 10 mg 2-01 tab, PO, l oral tablet 14:52: Bedtime, 4 [place] 00 tabs at bedtime for 1 week then 5 tabs at bedtime thereafter , # 150 tab, 2 Refill(s), Pharmacy: [place] [address] diclofenac 2016-05 Yes 75 mg = 1 Me moria sodium 75 2-01 tab, PO, l mg oral 14:52: BID, PRN Gabo n enteric 00 Pain Score coated, 7-10, # 60 delayed-rel tab, 2 ease tablet Refill(s), Pharmacy: [place] [address] [facility]05 Yes 10 mg = 1 M emoria rine 2-01 tab, PO, l hydrochlori 14:52: BID, # 60 H ermann de 10 MG 00 tab, 2 Oral Tablet Refill(s), [Flexeril] Pharmacy: [place] [address] amitriptyli 2016-05 Yes 10 mg = 1 M emoria ne 10 mg 2-01 tab, PO, l oral tablet 14:52: Bedtime, 4 Mitesh 00 tabs at bedtime for 1 week then 5 tabs at bedtime thereafter , # 150 tab, 2 Refill(s), Pharmacy: [place] [address] diclofenac 2016-05 Yes 75 mg = 1 Me moria sodium 75 2-01 tab, PO, l mg oral 14:52: BID, PRN Gabo n enteric 00 Pain Score coated, 7-10, # 60 delayed-rel tab, 2 ease tablet Refill(s), Pharmacy: [place] [address] Cyclobenzap 2016-05 Yes 10 mg = 1 M emoria rine 2-01 tab, PO, l hydrochlori 14:52: BID, # 60 H ermann de 10 MG 00 tab, 2 Oral Tablet Refill(s), [Flexeril] Pharmacy: [place] [address] amitriptyli 2016-05 Yes 10 mg = 1 M emoria ne 10 mg 2-01 tab, PO, l oral tablet 14:52: Bedtime, 4 Mitesh 00 tabs at bedtime for 1 week then 5 tabs at bedtime thereafter , # 150 tab, 2 Refill(s), Pharmacy: [place] [address] diclofenac 2016-05 Yes 75 mg = 1 Me moria sodium 75 2-01 tab, PO, l mg oral 14:52: BID, PRN Gabo n enteric 00 Pain Score coated, 7-10, # 60 delayed-rel tab, 2 ease tablet Refill(s), Pharmacy: [place] [address] Cyclobenzap 2016-05 Yes 10 mg = 1 M emoria rine 2-01 tab, PO, l hydrochlori 14:52: BID, # 60 H ermann de 10 MG 00 tab, 2 Oral Tablet Refill(s), [Flexeril] Pharmacy: [place] [address] amitriptyli 2016-05 Yes 10 mg = 1 M emoria ne 10 mg 2-01 tab, PO, l oral tablet 14:52: Bedtime, 4 Mitesh 00 tabs at bedtime for 1 week then 5 tabs at bedtime thereafter , # 150 tab, 2 Refill(s), Pharmacy: [place] [address] diclofenac 2016-05 Yes 75 mg = 1 Me moria sodium 75 2-01 tab, PO, l mg oral 14:52: BID, PRN Gabo n enteric 00 Pain Score coated, 7-10, # 60 delayed-rel tab, 2 ease tablet Refill(s), Pharmacy: [place] [address] Cyclobenzap 2016-05 Yes 10 mg = 1 M emoria rine 2-01 tab, PO, l hydrochlori 14:52: BID, # 60 H ermann de 10 MG 00 tab, 2 Oral Tablet Refill(s), [Flexeril] Pharmacy: [facility] Lidocaine 2016-05 Yes 3 mL, Memoria Hydrochlori 2- Route: l de 10 MG/ML 14:50: SUB-Q, Herm chacorta Injectable 00 Dosing Solution Weight 141.364, kg, ONCE, (Preservat liliana Free), Start date: 04/25/17 8:50:00 EMISSION TECHNICIAN, Stop date: 04/25/17 8:50:00 EMISSION TECHNICIAN Omnipaque 2016-05 Yes 2 mL, Memoria 300 06-26 Route: l 14:50: EPIDURAL, Mitesh 00 Dosing Weight 141.364, kg, ONCE, (Preservat liliana Free), Start date: 04/25/17 8:50:00 EMISSION TECHNICIAN, Stop date: 04/25/17 8:50:00 EMISSION TECHNICIAN Dexamethaso 2017-1 Yes 8 mg, Memor ia ne 2-01 Route: l 14:50: EPIDURAL, [place] 00 ONCE, Dosing Weight 141.364, kg, (Preservat liliana Free), Start date: 04/25/17 8:50:00 EMISSION TECHNICIAN, Stop date: 04/25/17 8:50:00 EMISSION TECHNICIAN Bupivacaine 2017- Yes 2 mL, Memor ia Hydrochlori 2-01 Route: l de 2.5 14:50: EPIDURAL, Gabo n MG/ML 00 Dosing Injectable Weight Solution 141.364, kg, ONCE, (Preservat liliana Free), Start date: 04/25/17 8:50:00 EMISSION TECHNICIAN, Stop date: 04/25/17 8:50:00 EMISSION TECHNICIAN Sodium 2017-1 Yes 4.2 mL, Memoria Chloride 2-01 Route: l 14:50: EPIDURAL, [place] 00 Dosing Weight 141.364, kg, ONCE, (Preservat liliana Free), Start date: 04/25/17 8:50:00 EMISSION TECHNICIAN, Stop date: 04/25/17 8:50:00 EMISSION TECHNICIAN Lidocaine 2017-1 Yes 3 mL, Memoria Hydrochlori 2-01 Route: l de 10 MG/ML 14:50: SUB-Q, Herm chacorta Injectable 00 Dosing Solution Weight 141.364, kg, ONCE, (Preservat liliana Free), Start date: 04/25/17 8:50:00 EMISSION TECHNICIAN, Stop date: 04/25/17 8:50:00 EMISSION TECHNICIAN Omnipaque 2017-1 Yes 2 mL, Memoria 300 2-01 Route: l 14:50: EPIDURAL, Mitesh 00 Dosing Weight 141.364, kg, ONCE, (Preservat liliana Free), Start date: 04/25/17 8:50:00 EMISSION TECHNICIAN, Stop date: 04/25/17 8:50:00 EMISSION TECHNICIAN Dexamethaso 2017-1 Yes 8 mg, Memor ia ne 2-01 Route: l 14:50: EPIDURAL, [place] 00 ONCE, Dosing Weight 141.364, kg, (Preservat liliana Free), Start date: 04/25/17 8:50:00 EMISSION TECHNICIAN, Stop date: 04/25/17 8:50:00 EMISSION TECHNICIAN Bupivacaine 2017-1 Yes 2 mL, Memor ia Hydrochlori 2-01 Route: l de 2.5 14:50: EPIDURAL, Gabo n MG/ML 00 Dosing Injectable Weight Solution 141.364, kg, ONCE, (Preservat liliana Free), Start date: 04/25/17 8:50:00 EMISSION TECHNICIAN, Stop date: 04/25/17 8:50:00 EMISSION TECHNICIAN Sodium 2017-1 Yes 4.2 mL, Memoria Chloride 2- Route: l 14:50: EPIDURAL, Mitesh 00 Dosing Weight 141.364, kg, ONCE, (Preservat liliana Free), Start date: 04/25/17 8:50:00 EMISSION TECHNICIAN, Stop date: 04/25/17 8:50:00 EMISSION TECHNICIAN Lidocaine 2017- Yes 3 mL, Memoria Hydrochlori 2- Route: l de 10 MG/ML 14:50: SUB-Q, Herm chacorta Injectable 00 Dosing Solution Weight 141.364, kg, ONCE, (Preservat liliana Free), Start date: 04/25/17 8:50:00 EMISSION TECHNICIAN, Stop date: 04/25/17 8:50:00 EMISSION TECHNICIAN Omnipaque 2017-1 Yes 2 mL, Memoria 300 2-01 Route: l 14:50: EPIDURAL, Mitesh 00 Dosing Weight 141.364, kg, ONCE, (Preservat liliana Free), Start date: 04/25/17 8:50:00 EMISSION TECHNICIAN, Stop date: 04/25/17 8:50:00 EMISSION TECHNICIAN Dexamethaso 2017-1 Yes 8 mg, Memor ia ne 2- Route: l 14:50: EPIDURAL, [place] 00 ONCE, Dosing Weight 141.364, kg, (Preservat liliana Free), Start date: 04/25/17 8:50:00 EMISSION TECHNICIAN, Stop date: 04/25/17 8:50:00 EMISSION TECHNICIAN Bupivacaine 2017-1 Yes 2 mL, Memor ia Hydrochlori 2-01 Route: l de 2.5 14:50: EPIDURAL, Gabo n MG/ML 00 Dosing Injectable Weight Solution 141.364, kg, ONCE, (Preservat liliana Free), Start date: 04/25/17 8:50:00 EMISSION TECHNICIAN, Stop date: 04/25/17 8:50:00 EMISSION TECHNICIAN Sodium 2017-1 Yes 4.2 mL, Memoria Chloride 2-01 Route: l 14:50: EPIDURAL, [place] 00 Dosing Weight 141.364, kg, ONCE, (Preservat liliana Free), Start date: 04/25/17 8:50:00 EMISSION TECHNICIAN, Stop date: 04/25/17 8:50:00 EMISSION TECHNICIAN Lidocaine 2017-1 Yes 3 mL, Memoria Hydrochlori 2- Route: l de 10 MG/ML 14:50: SUB-Q, Herm chacorta Injectable 00 Dosing Solution Weight 141.364, kg, ONCE, (Preservat liliana Free), Start date: 04/25/17 8:50:00 EMISSION TECHNICIAN, Stop date: 04/25/17 8:50:00 EMISSION TECHNICIAN Omnipaque 2017-1 Yes 2 mL, Memoria 300 2- Route: l 14:50: EPIDURAL, Mitesh 00 Dosing Weight 141.364, kg, ONCE, (Preservat liliana Free), Start date: 04/25/17 8:50:00 EMISSION TECHNICIAN, Stop date: 04/25/17 8:50:00 EMISSION TECHNICIAN Dexamethaso 2017- Yes 8 mg, Memor ia ne 2- Route: l 14:50: EPIDURAL, [place] 00 ONCE, Dosing Weight 141.364, kg, (Preservat liliana Free), Start date: 04/25/17 8:50:00 EMISSION TECHNICIAN, Stop date: 04/25/17 8:50:00 EMISSION TECHNICIAN Bupivacaine 2017-1 Yes 2 mL, Memor ia Hydrochlori 2- Route: l de 2.5 14:50: EPIDURAL, Gabo n MG/ML 00 Dosing Injectable Weight Solution 141.364, kg, ONCE, (Preservat liliana Free), Start date: 04/25/17 8:50:00 EMISSION TECHNICIAN, Stop date: 04/25/17 8:50:00 EMISSION TECHNICIAN Sodium 2017-1 Yes 4.2 mL, Memoria Chloride 2- Route: l 14:50: EPIDURAL, [place] 00 Dosing Weight 141.364, kg, ONCE, (Preservat liliana Free), Start date: 04/25/17 8:50:00 EMISSION TECHNICIAN, Stop date: 04/25/17 8:50:00 EMISSION TECHNICIAN Sodium 2017-1 Yes 4.2 mL, Memoria Chloride 2- Route: l 14:50: EPIDURAL, Mitesh 00 Dosing Weight 141.364, kg, ONCE, (Preservat liliana Free), Start date: 04/25/17 8:50:00 EMISSION TECHNICIAN, Stop date: 04/25/17 8:50:00 EMISSION TECHNICIAN Lidocaine 2017- Yes 3 mL, Memoria Hydrochlori 2- Route: l de 10 MG/ML 14:50: SUB-Q, Herm chacorta Injectable 00 Dosing Solution Weight 141.364, kg, ONCE, (Preservat liliana Free), Start date: 04/25/17 8:50:00 EMISSION TECHNICIAN, Stop date: 04/25/17 8:50:00 EMISSION TECHNICIAN Omnipaque 2017- Yes 2 mL, Memoria 300 2- Route: l 14:50: EPIDURAL, [place] 00 Dosing Weight 141.364, kg, ONCE, (Preservat liliana Free), Start date: 04/25/17 8:50:00 EMISSION TECHNICIAN, Stop date: 04/25/17 8:50:00 EMISSION TECHNICIAN Dexamethaso 2017- Yes 8 mg, Memor ia ne 2- Route: l 14:50: EPIDURAL, [place] 00 ONCE, Dosing Weight 141.364, kg, (Preservat liliana Free), Start date: 04/25/17 8:50:00 EMISSION TECHNICIAN, Stop date: 04/25/17 8:50:00 EMISSION TECHNICIAN Bupivacaine 2017- Yes 2 mL, Memor ia Hydrochlori 2- Route: l de 2.5 14:50: EPIDURAL, Gabo n MG/ML 00 Dosing Injectable Weight Solution 141.364, kg, ONCE, (Preservat liliana Free), Start date: 04/25/17 8:50:00 EMISSION TECHNICIAN, Stop date: 04/25/17 8:50:00 EMISSION TECHNICIAN cyclobenzap cyclobenzap No cyclobenza [facility] rine 10 [...] solution with with with applicator applicator [place] [address] [place] [address] [place] [address] APPLY TO APPLY TO APPLY TO AFFECTED [...] " x " gauge x USE USE 15/64" USE DIRECTED DIRECTED TWICE A DAY TWICE [...] solution with with with applicator applicator [facility], [place] [address] [place] [address] [place] [address] APPLY TO APPLY TO APPLY TO AFFECTED [...] solution with with with applicator applicator applicator [place] [address] [place] [address] [place] [address] APPLY TO APPLY TO APPLY TO AFFECTED [...] solution with with with applicator applicator applicator [facility]Y [facility] [place] [address] [place] [address] [place] [address] APPLY TO APPLY TO APPLY TO AFFECTED [...] [facility] rine 10 mg rine 10 mg jaoquín 10 Medical tablet TAKE tablet TAKE mg [...] with with with applicator applicator [place] [address] [place] [address] [place] [address] APPLY TO APPLY TO APPLY TO AFFECTED [...] Immunizations Ordered Filled Immunization Date Status Comments [facility] e Immunization Name Name SARS-COV-2 COVID-19 2021-04-12 Completed Unive rsity of PFIZER VACCINE 00:00:00 [facility] SARS-COV-2 COVID-19 2020-08-24 Completed Unive rsity of PFIZER VACCINE 00:00:00 [facility] SARS-COV-2 COVID-19 2020-08-03 Completed Unive rsity of PFIZER VACCINE 00:00:00 [facility] Influenza Virus 2018-06-26 Completed Universit y of Vaccine Quad .5 mL 00:00:00 [facility] 6+ MO Branch Vital Signs Vital Name Observation Time Observation Value Comments Source BP Diastolic 2022-04-11 00:00:00 70 mm[Hg] [facility] marshalltalha Height 2022-04-11 00:00:00 70 [in_i] [facility] marshalltalha BMI (Body Mass Index) 2022-04-11 00:00:00 49.5 kg/m2 [facility] BP Systolic 2022-04-11 00:00:00 130 mm[Hg] [facility] Body Weight 2022-04-11 00:00:00 345 [lb_av] [facility]i Polo edical BP Diastolic 2021-09-24 00:00:00 60 mm[Hg] [facility] edical Height 2021-09-24 00:00:00 70 [in_i] [facility]i Polo edical BMI (Body Mass Index) 2021-09-24 00:00:00 46.9 kg/m2 [facility] BP Systolic 2021-09-24 00:00:00 140 mm[Hg] [...] edical Height 2017-06-05 17:46:00 177.8 cm [facility] [place] Weight 2017-06-05 17:46:00 [facility] [place] BMI Calculated 2017-06-05 17:46:00 Memori al [place] Systolic (mm Hg) 2017-06-05 17:46:00 Chuck rial Mitesh Diastolic (mm Hg) 2017-06-05 17:46:00 Mem orial [place] Temperature Oral (F) 2017-06-05 17:46:00 99.3 F [facility] [place] Heart Rate 2017-06-05 17:46:00 [facility] [place] BMI Calculated 2017-04-29 15:23:00 Memori al [place] Weight 2017-04-29 15:23:00 [facility] [place] Height 2017-04-29 15:23:00 177.8 cm [facility] Mitesh Heart Rate 2017-04-29 15:00:00 [facility] Mitesh Respitory Rate 2017-04-29 15:00:00 Memori al [place] Systolic (mm Hg) 2017-04-29 15:00:00 Chuck rial [place] Diastolic (mm Hg) 2017-04-29 15:00:00 Mem orial [place] Procedures Procedure Date / Time Performing Clinician [...] and interpretation; lumbosacral NJX INTERLAMINAR 2017-04-25 14:50:00 [facility] LMBR/SA Ear operations [facility] Lumbar epidural [facility] [place] injection Lumbar epidural steroid [facility] injection [facility] Plan of Care Planned Activity Planned Date Details Comments Source Diagnostic Test Pending 2022-04-11 00:00:00 glucose, [facility] fingerstick, blood [code = glucose, fingerstick, blood] Encounters Start End Encounter Admission Attending Care Care Encounter Source Date/Time Date/Time Type Type Clinicians Facility Department ID 2022-10-09 2022-10-09 Outpatient GC_EDEC_Hay PRIV PRIV [id number] [facility] 00:00:00 00:00:00 es_A [id number] Medica l 2022-10-07 2022-10-07 Outpatient GC_EDEC_Hay PRIV PRIV [id number] [facility] 00:00:00 00:00:00 es_A [id number] Medica l 2022-07-15 2022-07-15 Outpatient GC_EDEC_Hay PRIV PRIV [id number] [facility] 00:00:00 00:00:00 es_A [id number] Medica l 2022-07-15 2022-07-15 Outpatient GC_EDEC_Hay PRIV PRIV [id number] [facility] 00:00:00 00:00:00 es_A [id number] Medica l 2022-07-15 2022-07-15 Tocurra [facility] 20 [facility] 00:00:00 00:00:00 [facility] Medic al Vahe, GC_EDEC_Pas BELL NECK HAMMERER-TELECOM ASSISTANT-C: terri 6243 Office* [facility], [facility] [address], [place] [address] , Ph. 2022-07-14 2022-07-14 Outpatient GC_EDEC_Hay PRIV PRIV [id number] [facility] 00:00:00 00:00:00 es_A [id number] Medica l 2022-04-11 2022-04-11 Outpatient GC_EDEC_Hay PRIV PRIV [id number] [facility] 00:00:00 00:00:00 es_A [id number] Medica l 2022-04-11 2022-04-11 Tocurra [facility] [id number] [facility] 00:00:00 00:00:00 [facility] Medic kaila Cotter, GC_EDEC_Pas BELL NECK HAMMERER-TELECOM ASSISTANT-C: terri 6243 Office* [facility], [facility] [address], [place] [address] , Ph. 2022-04-10 2022-04-10 Outpatient GC_EDEC_Hay PRIV PRIV [id number] [facility] 00:00:00 00:00:00 es_A [id number] Medica l 2022-01-04 2022-01-04 Outpatient GC_EDEC_Hay PRIV PRIV [id number] [facility] 00:00:00 00:00:00 es_A [id number] Medica l 2021-12-31 2021-12-31 Outpatient GC_EDEC_Hay PRIV PRIV [id number] [facility] 00:00:00 00:00:00 es_A [id number] Medica l 2021-09-24 2021-09-24 Outpatient GC_EDEC_Hay PRIV PRIV [id number] [facility] 11:24:00 11:24:00 es_A [id number] Medica l 2021-09-24 2021-09-24 Outpatient Pantoja, PRIV PRIV [id number] 00:00:00 00:00:00 Ellen [id number] Evon [id number] 2021-09-24 2021-09-24 Ellen [facility] 00:00:00 00:00:00 [facility] kaila Pantoja MD: GC_EDEC_[facility] [address] [facility] Office[address], [place] [address] , Ph. 2021-09-20 2021-09-20 Outpatient GC_EDEC_Hay PRIV PRIV [id number] [facility] 03:44:00 03:44:00 es_A [id number] Medica l 2021-04-12 2021-04-12 Outpatient Florencio SLOAN [facility] [id number] Univers 16:30:00 16:30:00 PAUL simon [facility] 2021-04-12 2021-04-12 Imm/Inj Nurse, Adc Pob Immunization [facility] [id number] Univers 16:14:33 16:14:42 Visit Paul Sloan [place] [id number] [facility] [id number] [facility] [id number] [place] [address] 2021-01-16 2021-01-16 Outpatient GC_EDEC_Hay PRIV PRIV [id number] [facility] 07:11:00 07:11:00 es_A [id number] Medica l 2020-09-25 2020-09-25 Outpatient GC_EDEC_Hay PRIV PRIV [id number] [facility] 02:20:00 02:20:00 es_A [id number] Medica l 2020-09-19 2020-09-19 Outpatient GC_EDEC_Hay PRIV PRIV [id number] [facility] 02:41:00 02:41:00 es_A [id number] Medica l 2020-09-13 2020-09-13 Outpatient GC_EDEC_Hay PRIV PRIV [id number] [facility] 06:01:00 06:01:00 es_A [id number] Medica l 2020-09-13 2020-09-13 Outpatient Kit, PRIV PRIV [id number] 00:00:00 00:00:00 Ellen [id number] [facility] [id number] 2020-09-13 2020-09-13 Ellen [facility] [id number] [facility] 00:00:00 00:00:00 [facility] Medic kaila Pantoja MD: GC_EDEC_Pas [address] [facility] Office[address], [facility] [address], [place] [address] , Ph. 2020-09-11 2020-09-11 Outpatient GC_EDEC_Hay PRIV PRIV 211 [id number] [facility] 12:06:00 12:06:00 es_A [id number] Medica l 2020-09-06 2020-09-06 Outpatient GC_EDEC_Hay PRIV PRIV [id number] [facility] 06:40:00 06:40:00 es_A [id number] Medica l 2020-08-24 2020-08-24 Outpatient Florencio SARMIENTO [facility] [id number] Univers 14:40:00 14:40:00 JAZMIN [facility] 2020-08-03 2020-08-03 Outpatient [facility] [id number] Univers 14:40:00 14:40:00 [facility] 2020-02-08 2020-02-08 Inpatient PILI Garcia [facility] DAYS [id number] [facility] 08:00:00 08:00:00 Neel 42 [facility] 2020-02-02 2020-02-02 Outpatient CHINO MASON [facility] [id number] Univers 11:30:00 11:30:00 [facility] 2020-02-02 2020-02-02 Laboratory Only, Adc [facility] [id number] 11:14:48 11:29:48 Only Test [place] [id number] [place]ott[place] [id number] [place] [id number] 2020-02-02 2020-02-02 Orders Doctor DULCE [id number] 00:00:00 00:00:00 Only Unassigned, KIMBERLY [id number] [place] [facility] [id number] 2020-01-05 2020-01-05 Telephone Atkins, [facility] [id number] 00:00:00 00:00:00 [place] [id number] [place] [id number] Professio [phone] [address] 2019-06-16 2019-06-16 Telephone Atkins, [facility] [id number] 00:00:00 00:00:00 [place]ong [place] [id number] [place] [id number] Professio [phone] [address] 2019-06-09 2019-06-09 Telephone Atkins, [facility] [id number] 00:00:00 00:00:00 [place]ong [place] [id number] [place] [id number] Professio [phone] [address] 2019-02-10 2019-02-10 Telephone [facility], [facility] [id number] 00:00:00 00:00:00 [place]ong [place] [id number] [place] [id number] Professio [phone] [address] 2018-12-13 2018-12-13 Orders Doctor DULCE [id number] 00:00:00 00:00:00 Only Unassigned, [place] 350.1.13.10 [place] [facility] [id number] [phone] [id number] 2018-11-27 2018-11-27 Refill [facility], [facility] [id number] 00:00:00 00:00:00 [place] [id number] [place] [id number] Professio [phone] [address] 2017-12-04 2017-12-04 Ambulatory nullFlavo [facility] [id number] Memoria 15:30:00 15:30:00 Pre-Reg r Clinic [facility] [place] 07 l Mitesh 2017-12-04 2017-12-04 Ambulatory nullFlavo [facility] [id number] Memoria 15:30:00 15:30:00 Pre-Reg r Clinic [facility] [place] 07 [facility] 2017-12-04 2017-12-04 Outpatient MHIE MHIE [id number] Memoria 10:30:00 10:30:00 07 [facility] 2017-12-04 2017-12-04 Outpatient Dulce Lau MHMISCHER MHMISCHER [id number] 10:30:00 10:30:00 C 07 2017-06-06 2017-06-08 Phone nullFlavo [facility] [id number] Memoria 20:31:00 05:59:59 Message r Clinic TM 09 [facility] 2017-06-06 2017-06-08 Phone nullFlavo [facility] [id number] Memoria 20:31:00 05:59:59 Message r Clinic TM 09 [facility] 2017-06-06 2017-06-07 Outpatient MHMISCHER MHMISCHER [id number] 14:31:00 23:59:59 09 2017-06-06 2017-06-07 Outpatient MHMISCHER MHMISCHER [id number] 14:31:00 23:59:59 09 2017-06-05 2017-06-06 Outpatient nullFlavo [facility] [id number] Memoria 17:30:00 05:59:59 r Clinic TM 05 [facility] 2017-06-05 2017-06-06 Outpatient nullFlavo [facility] [id number] Memoria 17:30:00 05:59:59 r Clinic TM 05 [facility] 2017-06-05 2017-06-05 Outpatient Dulce Lau MHMISCHER MHMISCHER [id number] 11:30:00 23:59:59 C 2017-06-05 2017-06-05 Outpatient Dulce Lau MHMISCHER MHMISCHER [id number] 11:30:00 23:59:59 C 2017-06-05 2017-06-05 Outpatient MHIE MHIE [id number] Memoria 11:30:00 11:30:00 05 [facility] 2017-04-30 2017-05-02 Phone nullFlavo [facility] [id number] Memoria 17:52:00 05:59:59 Message r Clinic TM 08 [facility] 2017-04-30 2017-05-02 Phone nullFlavo [facility] [id number] Memoria 17:52:00 05:59:59 Message r Clinic TM 08 [facility] 2017-04-30 2017-05-01 Outpatient MHMISCHER MHMISCHER [id number] 11:52:00 23:59:59 2017-04-29 2017-04-30 Outpatient [facility]Flavo [facility] [id number] Memoria 14:20:00 05:59:00 r [place] 00 [facility] 2017-04-29 2017-04-30 Outpatient nullFlavo [facility] [id number] Memoria 14:20:00 05:59:00 r [place] 00 [facility] 2017-04-29 2017-04-29 Outpatient Sid Dulce [facility] [id number] 08:20:00 23:59:00 2017-04-25 2017-04-26 Outpatient nullFlavo [facility] [id number] Memoria 14:00:00 05:59:59 r Clinic TM 06 [facility] 2017-04-25 2017-04-26 Outpatient nullFlavo [facility] [id number] Memoria 14:00:00 05:59:59 r Clinic TM 06 [facility] 2017-04-24 2017-04-26 Phone nullFlavo [facility] [id number] Memoria 22:30:00 05:59:59 Message r Clinic TM 07 [facility] 2017-04-24 2017-04-26 Phone nullFlavo [facility] [id number] Memoria 22:30:00 05:59:59 Message r Clinic TM 07 [facility] 2017-04-24 2017-04-26 Phone nullFlavo [facility] [id number] Memoria 22:27:00 05:59:59 Message r Clinic TM 06 [facility] 2017-04-24 2017-04-26 Phone nullFlavo [facility] [id number] Memoria 22:27:00 05:59:59 Message r Clinic TM 06 [facility] 2017-04-25 2017-04-25 Outpatient ANSELMO JesusMISCHER MHMISCHER [id number] 08:00:00 23:59:59 Camacho Joey 2017-04-24 2017-04-25 Outpatient MHMISCHER MHMISCHER [id number] 16:30:00 23:59:59 07 2017-04-24 2017-04-25 Outpatient MHMISCHER MISCHER [id number] 16:27:00 23:59:59 06 2017-04-25 2017-04-25 Outpatient MHIE MHIE [id number] Memoria 08:00:00 08:00:00 06 [facility] 2017-04-04 2017-04-04 Outpatient MHIE MHIE [id number] Memoria 13:00:00 13:00:00 04 [facility] 2017-04-04 2017-04-04 Outpatient MHIE MHIE [id number] Memoria 13:00:00 13:00:00 04 [facility] 2017-03-19 2017-03-20 Outpatient [facility]Flavo [facility] [id number] Memoria 15:22:00 04:59:[address] 2017-03-19 2017-03-20 Outpatient nullFlavo [facility] [id number] Memoria 15:22:00 04:59:[address] 2017-03-19 2017-03-19 Outpatient Manjinder Kowalski [facility] [id number] 10:22:00 23:59:00 [place] [address] 2017-03-19 2017-03-19 Outpatient MHIE MHIE [id number] Memoria 08:45:00 08:45:00 03 [facility] 2017-03-19 2017-03-19 Outpatient MHIE MHIE [id number] Memoria 08:45:00 08:45:00 03 [facility] 2017-03-19 2017-03-19 Outpatient MHIE MHIE [id number] Memoria 07:45:00 07:45:00 02 [facility] 2017-03-19 2017-03-19 Outpatient MHIE MHIE [id number] Memoria 07:45:00 07:45:00 02 [facility] 2016-09-04 2016-09-04 Outpatient MHIE MHIE [id number] Memoria 07:45:00 07:45:00 01 marga [place] 2016-09-04 2016-09-04 Outpatient MHIE MHIE [id number] Memoria 07:45:00 07:45:00 01 [facility] 2016-08-19 2016-08-19 Outpatient MHIE MHIE [id number] Memoria 10:30:00 10:30:00 00 marga Sagastume 2016-08-19 2016-08-19 Outpatient [facility] [id number] [facility] 10:30:00 10:30:00 00 marga Sagastume Results Test Description Test Time Test Comments Results Result Comments Source Glucose [Mass/volume] in Capillary blood 2022-04-11 14:44:52 Test Item Value Reference Range Interpretation Comme nts glucose (test code = glucose) 190 mg/dL 65-99 [facility] in Capillary [id number] 14:44:52 Test Item Value Reference Range Interpretation Comments glucose (test code = glucose) 190 mg/dL 65-99 [facility] [Mass/volume] in Capillary [id number] 14:44:52 Test Item Value Reference Range Interpretation Comments glucose (test code = glucose) 190 mg/dL 65-99 [facility] [Mass/volume] in Capillary [id number] 09:57:51 Test Item Value Reference Range Interpretation Comments glucose (test code = glucose) 264 mg/dL 65-99 [facility] HwtkgegVVXUVN0780-82-00 15:58:00 Test Item Value Reference Range Interpretation Comments GLUBED (test code = GLUBED) 147 MG/DL 70-105 H EPMHTGMCCW4752-69-66 16:42:00 Test Item Value Reference Range Interpretation Comments PTT (test code = PTT) 29.4 s 22.9-35.8 [facility]tljfDGPKBSZYZX7001-30-15 16:42:00 Test Item Value Reference Range Interpretation Comments PT (test code = PT) 12.8 s 12.0-14.7 [facility] HospitalCrcipvlZXPDSBHXXC4385-84-56 16:42:00 Test Item Value Reference Range Interpretation Comments INR (test code = INR) 0.96 0.85-1.17 [facility] HospitalXubqjfiPYPKJZNUNF4712-28-76 16:42:00 Test Item Value Reference Range Interpretation Comments PTT (test code = PTT) 29.4 s 22.9-35.8 [facility] HospitalCcegdroHDYEUFGZEE6093-17-02 16:42:00 Test Item Value Reference Range Interpretation Comments PT (test code = PT) 12.8 s 12.0-14.7 [facility] HospitalRpccmmjMTSQQVCMNN4331-43-79 16:42:00 Test Item Value Reference Range Interpretation Comments INR (test code = INR) 0.96 0.85-1.17 [facility] HospitalXvnljntNGRXBGSCLY1199-15-62 16:42:00 Test Item Value Reference Range Interpretation Comments PTT (test code = PTT) 29.4 s 22.9-35.8 [facility] HospitalLjsddpwWZSYBHZIGK2448-34-78 16:42:00 Test Item Value Reference Range Interpretation Comments PT (test code = PT) 12.8 s 12.0-14.7 [facility] HospitalQuckzolSGNLJDAEOO9958-41-54 16:42:00 Test Item Value Reference Range Interpretation Comments INR (test code = INR) 0.96 0.85-1.17 [facility] HospitalFmasvkgHXNGJUTHBN8871-72-24 16:42:00 Test Item Value Reference Range Interpretation Comments PTT (test code = PTT) 29.4 s 22.9-35.8 [facility] HospitalCefdfwvAGKUTMNTOQ1044-80-83 16:42:00 Test Item Value Reference Range Interpretation Comments PT (test code = PT) 12.8 s 12.0-14.7 [facility] HospitalWvnjetiEQMRUTXUBI8920-74-99 16:42:00 Test Item Value Reference Range Interpretation Comments INR (test code = INR) 0.96 0.85-1.17 [facility] HospitalIlpmeziHMCPZJIMUA6644-35-69 16:42:00 Test Item Value Reference Range Interpretation Comments PTT (test code = PTT) 29.4 s 22.9-35.8 [facility] HospitalVcqhogcUPDQHGLUQL4881-29-54 16:42:00 Test Item Value Reference Range Interpretation Comments PT (test code = PT) 12.8 s 12.0-14.7 [facility] HospitalCdrvqocIWBZETXLNT1092-66-51 16:42:00 Test Item Value Reference Range Interpretation Comments INR (test code = INR) 0.96 0.85-1.17 [facility]2017-12-05 15:26:00 Test Item Value Reference Range Interpretation Comments eGFR (test code = eGFR) 95 [facility]2017-12-05 15:26:00 Test Item Value Reference Range Interpretation Comments Creatinine Lvl (test code = Creatinine 0.92 0.50-1.40 Lvl) [facility]2017-12-05 15:26:00 Test Item Value Reference Range Interpretation Comments BUN (test code = BUN) 21 - [facility] HospitalNpxdeozWELMUTNNXJ7389-09-58 15:26:00 Test Item Value Reference Range Interpretation Comments MCV (test code = MCV) 84.7 80.0-94.0 [facility] HospitalLguhqdkCPRYVGKLIF7237-52-42 15:26:00 Test Item Value Reference Range Interpretation Comments Hct (test code = Hct) 41.3 42.0-54.0 [facility] HospitalNctpafkJBKAPYGLHA6000-29-28 15:26:00 Test Item Value Reference Range Interpretation Comments MCH (test code = MCH) 27.9 pg 27.0-31.0 [facility] HospitalDdlpfhyGGWDMZAESZ5505-87-10 15:26:00 Test Item Value Reference Range Interpretation Comments MCHC (test code = MCHC) 32.9 32.0-36.0 [facility] HospitalRuvoiogCXHFFGPZXG3845-67-76 15:26:00 Test Item Value Reference Range Interpretation Comments WBC (test code = WBC) 7.2 3.7-10.4 [facility] HospitalYhqurmbWJOMPBDOIB9800-17-76 15:26:00 Test Item Value Reference Range Interpretation Comments RBC (test code = RBC) 4.87 4.70-6.10 [facility] HospitalYimhyyoWWHRZHHCMB6396-67-48 15:26:00 Test Item Value Reference Range Interpretation Comments Hgb (test code = Hgb) 13.6 14.0-18.0 [facility] HospitalFzmzaceXAKHCYNIML9974-28-07 15:26:00 Test Item Value Reference Range Interpretation Comments RDW (test code = RDW) 16.1 11.5-14.5 [facility] HospitalXaxkzomTTSDGFXBJV2343-34-76 15:26:00 Test Item Value Reference Range Interpretation Comments Platelet (test code = Platelet) 239 133-450 [facility] HospitalBcctudsAOPBVRPALC5776-55-52 15:26:00 Test Item Value Reference Range Interpretation Comments MPV (test code = MPV) 8.0 7.4-10.4 [facility]2017-12-05 15:26:00 Test Item Value Reference Range Interpretation Comments eGFR (test code = eGFR) 95 [facility]2017-12-05 15:26:00 Test Item Value Reference Range Interpretation Comments Creatinine Lvl (test code = Creatinine 0.92 0.50-1.40 Lvl) [facility]2017-12-05 15:26:00 Test Item Value Reference Range Interpretation Comments BUN (test code = BUN) 13 12- [facility] HospitalQeslbmiGRERXIIDQW6152-20-17 15:26:00 Test Item Value Reference Range Interpretation Comments MCV (test code = MCV) 84.7 80.0-94.0 [facility] HospitalDzbsoxmPOZXQFPVBK5619-84-93 15:26:00 Test Item Value Reference Range Interpretation Comments Hct (test code = Hct) 41.3 42.0-54.0 [facility] HospitalFwhoxciUGHDPHQYGJ8807-05-56 15:26:00 Test Item Value Reference Range Interpretation Comments MCH (test code = MCH) 27.9 pg 27.0-31.0 [facility] HospitalSutsvloMDPZJOBIHE6235-18-74 15:26:00 Test Item Value Reference Range Interpretation Comments MCHC (test code = MCHC) 32.9 32.0-36.0 [facility] HospitalDqsuwfhQSIBKEFZCC9947-85-25 15:26:00 Test Item Value Reference Range Interpretation Comments WBC (test code = WBC) 7.2 3.7-10.4 [facility] HospitalSsweivrBHTYEBVXRK4382-78-70 15:26:00 Test Item Value Reference Range Interpretation Comments RBC (test code = RBC) 4.87 4.70-6.10 [facility] HospitalWbfzrxrXXSLRQCDTB4656-84-48 15:26:00 Test Item Value Reference Range Interpretation Comments Hgb (test code = Hgb) 13.6 14.0-18.0 [facility] HospitalIkuzvthTTQJUDNGUJ2294-99-12 15:26:00 Test Item Value Reference Range Interpretation Comments RDW (test code = RDW) 16.1 11.5-14.5 [facility] HospitalMifmbqjNRGANSBQXS4315-04-50 15:26:00 Test Item Value Reference Range Interpretation Comments Platelet (test code = Platelet) 239 133-450 [facility] HospitalLunlhjfIGOSCRHUUJ1681-96-93 15:26:00 Test Item Value Reference Range Interpretation Comments MPV (test code = MPV) 8.0 7.4-10.4 [facility]2017-12-05 15:26:00 Test Item Value Reference Range Interpretation Comments eGFR (test code = eGFR) 95 [facility]2017-12-05 15:26:00 Test Item Value Reference Range Interpretation Comments Creatinine Lvl (test code = Creatinine 0.92 0.50-1.40 Lvl) [facility]2017-12-05 15:26:00 Test Item Value Reference Range Interpretation Comments BUN (test code = BUN) 21 7-22 [facility] HospitalPvzevlkCGGELHEVEV6413-59-74 15:26:00 Test Item Value Reference Range Interpretation Comments MCV (test code = MCV) 84.7 80.0-94.0 [facility] HospitalGwjniilKTDSYKRBPC9549-55-62 15:26:00 Test Item Value Reference Range Interpretation Comments Hct (test code = Hct) 41.3 42.0-54.0 [facility] HospitalWovggbrPHUZIEMTMM7081-53-41 15:26:00 Test Item Value Reference Range Interpretation Comments MCH (test code = MCH) 27.9 pg 27.0-31.0 [facility] HospitalOzkjcmkANXGHDIGCC0006-12-21 15:26:00 Test Item Value Reference Range Interpretation Comments MCHC (test code = MCHC) 32.9 32.0-36.0 [facility] HospitalKdcggyqXVWCQZVKPA3409-93-63 15:26:00 Test Item Value Reference Range Interpretation Comments WBC (test code = WBC) 7.2 3.7-10.4 [facility] HospitalOvyjbnbLEUIPMFCXN7222-50-41 15:26:00 Test Item Value Reference Range Interpretation Comments RBC (test code = RBC) 4.87 4.70-6.10 [facility] HospitalLwszwquBAKQXTTXRI2050-09-26 15:26:00 Test Item Value Reference Range Interpretation Comments Hgb (test code = Hgb) 13.6 14.0-18.0 [facility] HospitalKyagqsvDCRPTQONYR5580-54-91 15:26:00 Test Item Value Reference Range Interpretation Comments RDW (test code = RDW) 16.1 11.5-14.5 [facility] HospitalGoehjqcQKTWRXTZRU9716-58-37 15:26:00 Test Item Value Reference Range Interpretation Comments Platelet (test code = Platelet) 239 133-450 [facility] HospitalHassnfuXGHTMZCPAV7372-91-80 15:26:00 Test Item Value Reference Range Interpretation Comments MPV (test code = MPV) 8.0 7.4-10.4 [facility]2017-12-05 15:26:00 Test Item Value Reference Range Interpretation Comments eGFR (test code = eGFR) 95 [facility]2017-12-05 15:26:00 Test Item Value Reference Range Interpretation Comments Creatinine Lvl (test code = Creatinine 0.92 0.50-1.40 Lvl) [facility]2017-12-05 15:26:00 Test Item Value Reference Range Interpretation Comments BUN (test code = BUN) 21 7-22 [facility] HospitalXvutdehJZFPSNPYCG6702-65-73 15:26:00 Test Item Value Reference Range Interpretation Comments MCV (test code = MCV) 84.7 80.0-94.0 [facility] HospitalEpjendpFMHVJPSTNU9488-14-73 15:26:00 Test Item Value Reference Range Interpretation Comments Hct (test code = Hct) 41.3 42.0-54.0 [facility] HospitalHnrhhdlJQBKPOHSNI2366-93-33 15:26:00 Test Item Value Reference Range Interpretation Comments MCH (test code = MCH) 27.9 pg 27.0-31.0 [facility] HospitalGqmosfhQNLYIUZXKJ3370-08-55 15:26:00 Test Item Value Reference Range Interpretation Comments MCHC (test code = MCHC) 32.9 32.0-36.0 [facility] HospitalOxfdvyyYYMWBHHOHH1213-65-45 15:26:00 Test Item Value Reference Range Interpretation Comments WBC (test code = WBC) 7.2 3.7-10.4 [facility] HospitalMcwtiniHDKLWATZXB0848-05-78 15:26:00 Test Item Value Reference Range Interpretation Comments RBC (test code = RBC) 4.87 4.70-6.10 [facility] HospitalHunhwgfWEUEQIDPBR7855-39-50 15:26:00 Test Item Value Reference Range Interpretation Comments Hgb (test code = Hgb) 13.6 14.0-18.0 [facility] HospitalRmsskcsZCSINIMYBL3631-31-75 15:26:00 Test Item Value Reference Range Interpretation Comments RDW (test code = RDW) 16.1 11.5-14.5 [facility] HospitalGhuctexLFBYHLHFBI9493-94-95 15:26:00 Test Item Value Reference Range Interpretation Comments Platelet (test code = Platelet) 239 133-450 [facility] HospitalMnaihlcXZRTIQBGAZ6445-28-04 15:26:00 Test Item Value Reference Range Interpretation Comments MPV (test code = MPV) 8.0 7.4-10.4 [facility]2017-12-05 15:26:00 Test Item Value Reference Range Interpretation Comments eGFR (test code = eGFR) 95 [facility]2017-12-05 15:26:00 Test Item Value Reference Range Interpretation Comments Creatinine Lvl (test code = Creatinine 0.92 0.50-1.40 Lvl) [facility]2017-12-05 15:26:00 Test Item Value Reference Range Interpretation Comments BUN (test code = BUN) 21 7-22 [facility] HospitalYgrrredFUIQTDHDHJ7000-03-95 15:26:00 Test Item Value Reference Range Interpretation Comments MCV (test code = MCV) 84.7 80.0-94.0 [facility] HospitalKxzasolUFTRAEWOLI2960-98-62 15:26:00 Test Item Value Reference Range Interpretation Comments Hct (test code = Hct) 41.3 42.0-54.0 [facility] HospitalPuislysIRQBKTDVUL8366-15-17 15:26:00 Test Item Value Reference Range Interpretation Comments MCH (test code = MCH) 27.9 pg 27.0-31.0 [facility] HospitalKwqtmghQKEZNBPYKI5781-67-10 15:26:00 Test Item Value Reference Range Interpretation Comments MCHC (test code = MCHC) 32.9 32.0-36.0 [facility] HospitalRhmeolvQWPSDUYKKN5875-82-14 15:26:00 Test Item Value Reference Range Interpretation Comments WBC (test code = WBC) 7.2 3.7-10.4 [facility] HospitalYisgwjsXPUNUDFLFH4896-55-29 15:26:00 Test Item Value Reference Range Interpretation Comments RBC (test code = RBC) 4.87 4.70-6.10 [facility] HospitalHecwujvQJVJHVWUJC1896-05-07 15:26:00 Test Item Value Reference Range Interpretation Comments Hgb (test code = Hgb) 13.6 14.0-18.0 [facility] HospitalBipwkipCMPTDJZAAH6335-50-56 15:26:00 Test Item Value Reference Range Interpretation Comments RDW (test code = RDW) 16.1 11.5-14.5 [facility] HospitalZzzlxkrNOASPSZLOX5185-60-18 15:26:00 Test Item Value Reference Range Interpretation Comments Platelet (test code = Platelet) 239 133-450 [facility] HospitalNmsunuxRKDZBZLOON0575-64-00 15:26:00 Test Item Value Reference Range Interpretation Comments MPV (test code = MPV) 8.0 7.4-10.4 [place] [id number] 05:57:00 Test Item Value Reference Range Interpretation [...] ( 4 - SerumAlbumin)] EGFR if >60 [place] (test code mL/min/1.73m\\ = EGFRAA) S\\2 EGFR if Non- >60 Estimate d Glomerular Nigerian (test code mL/min/1.73m\\ Filtrat ion Rate (eGFR) [...] and management of c hronic kidney failure. [facility] WITH AUTO [id number] 05:42:00 Test Item Value Reference Range Interpretation [...] code = 1.0 % 0.0-0.4 H IG%) [facility] 05:53:00 Test Item Value Reference Range Interpretation [...] ( 4 - SerumAlbumin)] EGFR if >60 [place] (test code mL/min/1.73m\\ = EGFRAA) S\\2 EGFR if Non- >60 Estimate d Glomerular [place] (test code mL/min/1.73m\\ Filtrat ion Rate (eGFR) [...] and management of c hronic kidney failure. [facility] WITH AUTO [id number] 05:27:00 Test Item Value Reference Range Interpretation [...] code = 1.7 % 0.0-0.4 H IG%) [facility] 04:36:00 Test Item Value Reference Range Interpretation [...] ( 4 - SerumAlbumin)] EGFR if >60 [place] (test code mL/min/1.73m\\ = EGFRAA) S\\2 EGFR if Non- >60 Estimate d Glomerular [place] (test code mL/min/1.73m\\ Filtrat ion Rate (eGFR) [...] and management of c hronic kidney failure. [facility] WITH AUTO [id number] 04:14:00 Test Item Value Reference Range Interpretation [...] code = 1.9 % 0.0-0.4 H IG%) [facility] 04:40:00 Test Item Value Reference Range Interpretation [...] ( 4 - SerumAlbumin)] EGFR if >60 [place] (test code mL/min/1.73m\\ = EGFRAA) S\\2 EGFR if Non- >60 Estimate d Glomerular Nigerian (test code mL/min/1.73m\\ Filtrat ion Rate (eGFR) [...] and management of c hronic kidney failure. [facility] WITH AUTO [id number] 04:09:00 Test Item Value Reference Range Interpretation [...] code = 2.4 % 0.0-0.4 H IG%) [facility]2017-08-31 06:50:00To start 15mins after 1st cultureSpecimen: BloodCollected: 01/18/2017 04:05 Status: Final Last Updated: 01/23/2017 06:49 (1) To [id number] after 1st culture Culture Result (Final) (Final) [facility] 06[facility]50:00Specimen: BloodCollected: 01/18/2017 03:55 Status: Final Last Updated: 01/23/2017 06:49 Culture Result (Final) (Final) [facility] [id number] 04:31:00 Test Item Value Reference Range Interpretation [...] code = 3.4 % 0.0-0.4 H IG%) [facility] 04:19:00 Test Item Value Reference Range Interpretation [...] ( 4 - SerumAlbumin)] EGFR if >60 [place] (test code mL/min/1.73m\\ = EGFRAA) S\\2 EGFR if Non- >60 Estimate d Glomerular Nigerian (test code mL/min/1.73m\\ Filtrat ion Rate (eGFR) [...] and management of c hronic kidney failure. [facility] [id number] 04:57:00 Test Item Value Reference Range Interpretation [...] 4.0 % 0.0-0.4 H IG%) CBC AUTO [facility]-ZhcvajQFM0455-87-17 04:35:00 Test Item Value Reference Range Interpretation [...] ( 4 - SerumAlbumin)] EGFR if >60 Nigerian (test code mL/min/1.73m\\ = EGFRAA) S\\2 EGFR if Non- >60 Estimate d Glomerular Nigerian (test code mL/min/1.73m\\ Filtrat ion Rate (eGFR) [...] and management of c hronic kidney failure. [facility] [id number] 05:01:00 Test Item Value Reference Range Interpretation [...] 4.5 % 0.0-0.4 H IG%) CBC AUTO [facility]-[id number] 04:56:00 Test Item Value Reference Range Interpretation [...] ( 4 - SerumAlbumin)] EGFR if >60 Nigerian (test code mL/min/1.73m\\ = EGFRAA) S\\2 EGFR if Non- >60 Estimate d Glomerular Nigerian (test code mL/min/1.73m\\ Filtrat ion Rate (eGFR) [...] and management of c hronic kidney failure. [facility]O [id number] 05:57:00 Test Item Value Reference Range Interpretation [...] code = 4.8 % 0.0-0.4 H IG%) [facility]ujt[facility]-[id number] 05:41:00 Test Item Value Reference Range Interpretation Comments Magnesium (test code = MG) 2.0 mg/dl 1.6-2.3 [facility]-[id number] 05:41:00 Test Item Value Reference Range Interpretation [...] ( 4 - SerumAlbumin)] EGFR if >60 Nigerian (test code mL/min/1.73m\\ = EGFRAA) S\\2 EGFR if Non- >60 Estimate d Glomerular Nigerian (test code mL/min/1.73m\\ Filtrat ion Rate (eGFR) [...] and management of c hronic kidney failure. [facility] [id number] 06:43:00 Test Item Value Reference Range Interpretation Comments LACTATE (test code = LAC) 0.9 mmol/l 0.7-2.0 [facility]kinGLYCOSALATED [id number] 05:41:00 Test Item Value Reference Range Interpretation Comments Hemoglobin A1C (test 9.06 % 4.3-6.0 A code = GLYCO) Mean Plasma Glucose 245 mg/dl 90-180 WHEN BONIFACIO T RESULTS FOR (test code = MPG) A1C EXCEED 14.0, THE LINEAR LIMIT OF THE INSTRUMENT, THE CALCULATED RESU LT FOR THE MEAN GLUCOS E IS NOT RELIABLE. [facility] [id number] 05:09:00 Test Item Value Reference Range Interpretation [...] mg/dl Borderlin e: 130 - 159 mg/dl Hi gh: 160 - 189 mg/dl Adrianne y High: >190 mg/dl Risk Factor (test code 6.1 0.0-5.0 H Risk Factor Men Women = RFACT) Risk Factor 3.4 3.3 1/2 Average 5.0 4.4 Average 9.6 7.1 2X Average 24.0 11 .0 3X Average vLDL (test code = 37 mg/dl 30-60 VLDL) [facility] HospitalEyzlzg-[id number] 04:51:00 Test Item Value Reference Range Interpretation Comments Magnesium (test code = MG) 2.1 mg/dl 1.6-2.3 [facility]-[id number] 04:51:00 Test Item Value Reference Range Interpretation Comments CPK (test code = CPK) 93 U/L 30-135 [facility] [id number] 04:43:00 Test Item Value Reference Range Interpretation Comments Lipase (test code = LIPA) 116 U/L 8-[address] [id number] 04:43:00 Test Item Value Reference Range Interpretation [...] ( 4 - SerumAlbumin)] EGFR if >60 Nigerian (test code mL/min/1.73m\\ = EGFRAA) S\\2 EGFR if Non- >60 Estimate d Glomerular Nigerian (test code mL/min/1.73m\\ Filtrat ion Rate (eGFR) [...] and management of c hronic kidney failure. [facility]2017-01-18 04:37:00 Test Item Value [...] PLATELET CLUMPI NG. THIS IS A HEMOGRAM [facility] Notes Date/Time Note Provider Source 2020-02-09 11:01:00-00:00 [id number] [facility] [address] [place] [address] PATIENT NAME: ROBBIN OSORIO ADMIT DATE: 02/08/20 ACCOUNT NO: [id number] ROOM NO: AGE: 55 REPORT TYPE: OPERATIVE REPORT SEX: M ADMITTING PHYSICIAN: ATTENDING PHYSICIAN:Neel Garcia MD OPERATION DATE: 02/08/2020 PREOPERATIVE DIAGNOSIS: PREOPERATIVE DIAGNOSIS: PROCEDURES PERFORMED: Selective coronary angiogr am. SURGEON: CHIEF ENGINEER WATERWORKS: ANESTHESIA: ACCESS: The right femoral artery closed with 6-F rench Angio-Seal. INDICATIONS: Moderate LAD disease with congestiv e heart failure and unstable angina. COMPLICATIONS: None. BLEEDING: Less than 5 mL and a total sedation ti me was 35 minutes. PROCEDURE IN DETAIL: After risks, benefits, and alternatives were explained, the patient agreed to the procedure and signed a n informed consent. We then tried to access right radial artery; however, fa iled and then switched to the right femoral artery using ultrasound guidance a nd fluoroscopy. The femoral artery was accessed utilizing micropuncture kit and then placed 6-Ugandan Mobile sheath and then we took 6-Ugandan EBU gu lexie into the aortic root and engaged in left main and the n subsequently took standard views and then we took the FFR wire after giving a systemic heparin to assure ACT level being above 250 and then we crossed the lesion. An iFR w as measured and being negative at 1.0. Then, the wire was pulled back into the aortic root and showed no drift. Final injection showed no complications. I then remove d the guide and the catheter out and then the sheath was removed and closed t he access with a 6-Ugandan Angio-Seal without complications. CONCLUSION: Moderate proximal LAD disease. Negat liliana by iFR value of 1.0. RECOMMENDATIONS: 1. Medical management of coronary artery disease . 2. Medical management of congestive heart failur e. 3. Discharge home once discharge criteria are me t. PATIENT NAME: ROBBIN OSORIO 2 Dictated By: Neel Garcia MD WT: OP:PANNAMARIA/NREI/BELEN Conf#: [id number]/DID#: [id number] Authenticated by Neel Garcia MD On 02/10/2020 08:25:20 AM Electronically Signed by Neel Garcia MD on at 0825 PATIENT NAME: ROBBIN OSORIO 2
--- NOTE | 2022-10-31 15:11 | EDPHYS ---
Physician Documentation [facility] Name: Nicola Harvey Age: 57 yrs Sex: Male : 1965 Arrival Date: 10/31/2022 Time: 13:42 Bed IW3 Private MD: ED Physician Esvin Akins HPI: 10/31 14:00 This 57 yrs old Male presents to ER via Ambulatory with complaints of jmm RESPIATORY. 14:00 The patient has shortness of breath at rest. Onset: The symptoms/episode began/occurred jmm gradually, 2 day(s) ago. Is a 57-year-old male with history of hyperlipidemia, hypertension, diabetes mellitus, the presents emerged part with complaints of cough shortness of breath, congestion. Patient had a similar episode when he was diagnosed with an upper respiratory infection.. Historical: - Allergies: 13:54 Invokana; ll1 13:54 Jardiance; ll1 - PMHx: 13:54 Hyperlipidemia; Hypertension; Diabetes - IDDM; Obesity; chronic back pain; CHF; ll1 - PSHx: 13:54 Cholecystectomy; addenoidectomy; rhinoplasty; ll1 - Immunization history:: Client reports receiving the 2nd dose of the Covid vaccine. - Social history:: Smoking status: Patient denies any tobacco usage or history of. ROS: 14:00 Constitutional: Positive for body aches, chills. jmm 14:00 Respiratory: Positive for cough. 14:00 All other systems are negative. Exam: 14:00 Constitutional: This is a well developed, well nourished patient who is awake, alert, jmm and in no acute distress. Head/Face: atraumatic. Eyes: EOMI, no conjunctival erythema appreciated ENT: Moist Mucus Membranes Neck: Trachea midline, Supple Chest/axilla: Normal chest wall appearance and motion. Cardiovascular: Regular rate and rhythm. No edema appreciated Respiratory: Normal respirations, no respiratory distress appreciated Abdomen/GI: Non distended Back: Normal ROM Skin: General appearance color normal MS/ Extremity: Moves all extremities, no obvious deformities appreciated, no edema noted to the lower extremities Neuro: Awake and alert Psych: Behavior is normal, Mood is normal, Patient is cooperative and pleasant Vital Signs: 13:52 BP 168 / 85; Pulse 76; Resp 20; Temp 99.9(O); Pulse Ox 95% on R/A; Weight 155.58 kg; ll1 Height 5 ft. 10 in. ; Pain 8/10; 13:52 Body Mass Index 49.21 (155.58 kg, 177.8 cm) ll1 13:52 Pain Scale: Adult ll1 MDM: 14:00 Patient medically screened. [facility] 14:00 Differential diagnosis: Bronchitis pneumonia. Data reviewed: vital signs, nurses notes, [facility] lab test result(s). Counseling: I had a detailed discussion with the patient and/or guardian regarding: the historical points, exam findings, and any diagnostic results supporting the discharge/admit diagnosis, lab results, the need for outpatient follow up. ED course: Patient is alert and non toxic in appearance in the ED. No signs of resp distress. Advised to follow up with pcp and otherwise given strict return precautions. Patient understood and agrees with the plan of care. . 10/31 13:59 Order name: Flu; Complete Time: 14:43 ll1 10/31 13:59 Order name: COVID-19 SARS RT PCR; Complete Time: 14:43 ll1 Administered Medications: No medications were administered Disposition: 19:48 Co-signature as Attending Physician, Esvin Akins DO I was immediately available on-site ms3 in the Emergency Department for consultation in the care of the patient. Disposition Summary: 10/31/22 15:10 Discharge Ordered Location: Home [facility] Condition: Stable jm Diagnosis - Cough jmm Followup: jmm - With: Private Physician - When: 2 - 3 days - Reason: Recheck today's complaints, Continuance of care, Re-evaluation by your physician Discharge Instructions: - Discharge Summary Sheet jm - Cough, Adult jmm Forms: - Medication Reconciliation Form [facility] - Thank You Letter [facility] - Antibiotic Education m - Prescription Opioid Use [facility] - Work release form ss Prescriptions: - cefdinir 300 mg Oral capsule - take 1 capsule by ORAL route every 12 hours for 10 days; 20 capsule; Refills: delilah 0, Product Selection Permitted Signatures: Dispatcher [employer] Surinder Gomes PA PA jmm Lewis, Lynsay, RN RN ll1 Esvin Akins DO DO ms3
--- NOTE | 2022-10-31 15:11 | ER ---
Nurse's Notes [facility] Name: Nicola Harvey Age: 57 yrs Sex: Male : 1965 Arrival Date: 10/31/2022 Time: 13:42 Bed IW3 Private MD: Diagnosis: Cough Presentation: 10/31 13:52 Chief complaint: Patient states: Cough, congestion, SOB for 2 days. Coronavirus screen: ll1 Vaccine status: Patient reports receiving the 2nd dose of the covid vaccine. Client denies travel out of the [place] in the last 14 days. congestion, cough unrelated to allergies, difficulty breathing, shortness of breath. Ebola Screen: Patient denies travel to an Ebola-affected area in the 21 days before illness onset. 13:52 Method Of Arrival: Ambulatory ll1 13:54 Initial Sepsis Screen: Does the patient meet any 2 criteria? No. Patient's initial ll1 sepsis screen is negative. Does the patient have a suspected source of infection? Yes: Productive cough/pneumonia. Risk Assessment: Do you want to hurt yourself or someone else? Patient reports no desire to harm self or others. Onset of symptoms was October 29, 2022. 13:54 Acuity: ANGE 3 ll1 Triage Assessment: 13:55 General: Appears in no apparent distress. Behavior is calm, cooperative, appropriate ll1 for age. Pain: Complains of pain in B upper abd. Respiratory: Reports shortness of breath cough that is. Historical: - Allergies: 13:54 Invokana; ll1 13:54 Jardiance; ll1 - PMHx: 13:54 Hyperlipidemia; Hypertension; Diabetes - IDDM; Obesity; chronic back pain; CHF; ll1 - PSHx: 13:54 Cholecystectomy; addenoidectomy; rhinoplasty; ll1 - Immunization history:: Client reports receiving the 2nd dose of the Covid vaccine. - Social history:: Smoking status: Patient denies any tobacco usage or history of. Screenin:42 [facility] ED Fall Risk Assessment (Adult) Score/Fall Risk Level 0 - 2 = Low Risk ll1 Oriented to surroundings, Maintained a safe environment, Educated pt \T\ family on fall prevention, incl call for assistance when getting out of bed, Hourly rounding (assess needs \T\ fall precautionary measures) done. Abuse screen: Denies threats or abuse. Nutritional screening: No deficits noted. Tuberculosis screening: No symptoms or risk factors identified. Assessment: 14:42 Reassessment: No changes from previously documented assessment. Patient and/or family ll1 updated on plan of care and expected duration. Pain level reassessed. Patient is alert, oriented x 3, equal unlabored respirations, skin warm/dry/pink. Vital Signs: 13:52 BP 168 / 85; Pulse 76; Resp 20; Temp 99.9(O); Pulse Ox 95% on R/A; Weight 155.58 kg; ll1 Height 5 ft. 10 in. ; Pain 8/10; 13:52 Body Mass Index 49.21 (155.58 kg, 177.8 cm) ll1 13:52 Pain Scale: Adult ll1 ED Course: 13:46 Patient arrived in ED. kj1 13:54 Triage completed. ll1 13:55 Arm band placed on. ll1 14:00 Surinder Monroe PA is PHCP. patricia 14:00 Esvin Akins DO is Attending Physician. [facility] 14:02 COVID-19 SARS RT PCR Sent. 14:02 Flu Sent. iw 14:22 Flu Sent. ll1 14:22 COVID-19 SARS RT PCR Sent. ll1 14:42 Patient has correct armband on for positive identification. Bed in low position. Call ll1 light in reach. Cardiac monitoring not applicable on this patient. 14:43 No provider procedures requiring assistance completed. Patient did not have IV access ll1 during this emergency room visit. Administered Medications: No medications were administered Medication: 14:43 VIS not applicable for this client. ll1 Outcome: 15:10 Discharge ordered by MD. gomez 15:37 Discharged to home ambulatory. bp 15:37 Condition: stable 15:37 Discharge instructions given to patient, Instructed on discharge instructions, follow up and referral plans. medication usage, Demonstrated understanding of instructions, follow-up care, medications, Prescriptions given X 2. 15:38 Patient left the ED. bp Signatures: Surinder Monroe PA PA jmm Williams, Irene, Ronnie Kaminski RN, RN RN bp Jackson, Kandis kj1 Landy Alexander RN RN 1
[2022-10-31 16:19] VITALS: BP 168/85; TEMP 99.9; O2SAT 95
== END 2022-10-31 15:38 | disposition home or self-care (01) ==
LOC: ER 13:42
DX: R05.9 Cough, unspecified (principal); I10 Essential (primary) hypertension; E11.9 Type 2 diabetes mellitus without complications; I50.9 Heart failure, unspecified; Z20.822 Contact with and (suspected) exposure to COVID-19; Z88.8 Allergy status to other drugs, medicaments and biological substances
CPT/HCPCS: 87635; 87804; 99283

== ENCOUNTER 2022-11-27 17:14 | Inpatient (IN) | payer BC ==
--- OUTSIDE RECORDS SUMMARY | 2022-11-27 17:21 | XMS REPORT | Continuity of Care Document ---
:1965 Author Organization [facility] [place] t Address [address] [place] [address] [address] [place] [address] Care Team Providers Name Role Phone Hope Barraza Primary Care Physician [email or web address]_Hayes_A Attending Clinician Unavailable Ellen Pantoja Attending Clinician [phone] PAUL SLOAN Attending Clinician Unavailable Nurse, Adc Pob Immunization Attending Clinician Unavailable Paul Sloan DO Attending Clinician JAZMIN SARMIENTO Attending Clinician Unavailable Neel Garcia Attending Clinician Unavailable CHINO HEALY Attending Clinician Unavailable Only, Adc Test Attending Clinician Unavailable Doctor Unassigned, [place] Attending Clinician Unavailable Anupam Atkins MD Attending Clinician Dulce Lau Attending Clinician Camacho Jesus Attending Clinician Manjinder Kowalski Attending Clinician MADI FAITH Attending Clinician Unavailable TAMMY BETANCOURT Attending Clinician Unavailable GC_EDEC_Hayes_A Admitting Clinician Unavailable HOPE BARRAAZ Admitting Clinician Unavailable MADI FAITH Admitting Clinician Unavailable TAMMY BETANCOURT Admitting Clinician Unavailable Payers Payer Name Policy Type Policy Number Effective Date Expiration Date S felecia [place] [id number] 2022 00:00:00 [place] (PPO[place] AETNA (POS) [id number] 2021 00:00:00 [place] - [id number] 2019 00:00:00 OUT OF STATE BLUE CROSS-[place]: [id number] ANTH BLUE CROSS (PPO) Problems Condition Condition [...] lower lower 00:00: [place] extremity extremity 00 [facility] sanjiv Branch Cellulitis Cellulitis Disease [...] 09:02:00 l Active 00:00: Mitesh 04/08/2017 00 [facility] M54.16 M54.16 Diagnosis Active 2016-052017-03-19 Me moria Active 0 10:29:00 l 03/19/2017 00:00: Gabo thomas [address] Abdominal Problem Resolve 2017-12-07 M emoria pain Abdominal d 00:03:51 l (finding) pain Mitesh (finding) Resolved Problem 12/07/2017 [facility] Chest pain Chest Problem Resolve 2017-12-07 Memoria (finding) pain d 00:03:51 l (finding) [place] Resolved Problem 12/07/2017 [facility] Chronic Chronic Problem Resolve 2017-12-07 M emoria back pain back pain d 00:03:51 l (disorder) (disorder) He r[place] Resolved Problem 12/07/2017 [facility] Diabetes Diabetes Problem Active 2017-12-07 Memoria mellitus mellitus 00:03:51 l (disorder) (disorder) He rmann Active Problem 12/07/2017 [facility] Hyperchole Hyperchol Problem Active 2017-12-07 Memoria sterolemia esterolemi 00:03:51 l (disorder) eyad thomas (disorder) Active Problem 12/07/2017 [facility] Hypertensi Hypertens Problem Active 2017-12-07 Memoria ve liliana 00:03:51 l disorder, disorder, Herm chacorta systemic systemic arterial arterial (disorder) (disorder) Active Problem 12/07/2017 [facility] Morbid Morbid Problem Active 2017-12-07 Chuck jack obesity obesity 00:03:51 l (disorder) (disorder) He rmann Active Problem 12/07/2017 [facility] Prolapsed Prolapsed Problem Active 2017-12-07 Memoria lumbar lumbar 00:03:51 l interverte interverte He rmann bral disc bral disc (disorder) (disorder) Active Problem 12/07/2017 [facility] Allergies, Adverse Reactions, Alerts Allergy Allergy Status Severity Reaction(s) Onset Inactive Treating Comm ents Source Name Type Date Date Clinician No Known DA Active U 2020-0 [facility]01 [facility] No Known DA Active U [facility] 02-01 [facility] 00:00: [facility] 00 [facility] NO KNOWN Drug Active Univers ALLERGIE Class ity of S [facility] Social History Social Habit Start Date Stop Date Quantity Comments Source Alcohol intake 2018-07-21 2018-07-21 Current University of 00:00:00 00:00:00 non-drinker of [facility] alcohol Branch (finding) Tobacco use and 2018-04-09 2018-04-09 Never used Universit y of exposure 00:00:00 00:00:00 [facility] Sex Ass[birth year] Universit y of 00:00:00 00:00:00 [facility] Smoking Status Start Date Stop Date Source Never Smoker [facility] Social History 2017-06-05 17:47:50 2017-06-05 17:47:50 [facility] Medications Ordered Filled Start Stop Current Ordering Indication Dosage Frequency Signature Comments Components Source Medication Medication Date Date Medication? Clinician (SIG) Name Name insulin 2018-05 Yes [id number] 60U inject 60 Univers regular 0-24 Units ity of human 500 00:00: under the Varinder as unit/mL 00 skin 3 Medical injection (three) Branch times daily before meals. E11. 65 Insulin Yes Each 3 Univers Syringe-Nee 7-03 (three) ity o f dle U-100 1 00:00: times [place] mL 31 gauge 00 daily Medical x 5/16 Syrg before Branch meals. E11.65 insulin Yes [id number] 1{each} 1 Each 3 Univers U-500 5-28 (three) ity of syringe-nee 00:00: times [place] dle 1/2 mL 00 daily Medical 31 gauge x before Branch " Syrg meals. E11.65 metformin Yes [id number] 1000mg Take 2 Univers ER 500 mg 5-28 tablets by ity of 24 hr 00:00: mouth 2 [place] tablet 00 (two) Medical times Branch daily with meals. glimepiride 2018- Yes [id number] 4mg Take 1 Univers 4 mg tablet 5-28 tablet by ity of 00:00: mouth 2 [place] 00 (two) Medical times Branch daily with meals. pravastatin Yes [id number] 20mg Take 1 Univers 20 mg 5-28 tablet by ity of tablet 00:00: mouth at [place] 00 bedtime. Medical Branch metoprolol Yes 50mg Take 50 mg U nivers tartrate 50 2-01 by mouth 2 it y of mg tablet 17:31: (two) [place] 53 times Medical daily. Branch lisinopril Yes 40mg Take 40 mg U nivers 40 mg 2-01 by mouth ity of tablet 17:31: daily. [place] [address] Medical Branch amLODIPine Yes 5mg Take 5 mg Un bria 5 mg tablet 2-01 by mouth ity of 17:31: daily. [place] [address] Medical Branch traMADOL 50 Yes [id number] 50mg Take 1 Univers mg tablet 06-26 606260 tablet by ity of 00:00: mouth 2 [place] 00 (two) Medical times Branch daily as needed for Pain (scale 4-6) or Pain (scale 7-10). hydroCHLORO 2017-05 Yes [id number] 25mg Take 1 Univers thiazide 25 2-14 tablet by ity of mg tablet 00:00: mouth [place] 00 daily. Medical Branch exenatide 2017-05 Yes [id number] 2mg inject 2 Univers microsphere 1-14 mg [...] , # 150 tab, 2 Refill(s), Pharmacy: [facility] diclofenac 2016-05 Yes 75 mg = 1 Me moria sodium 75 2-01 tab, PO, l mg oral 14:52: BID, PRN Gabo n enteric 00 Pain Score coated, 7-10, # 60 delayed-rel tab, 2 ease tablet Refill(s), Pharmacy: [facility] Cyclobenzap 2016-05 Yes 10 mg = 1 M emoria rine 2-01 tab, PO, l hydrochlori 14:52: BID, # 60 H ermann de 10 MG 00 tab, 2 Oral Tablet Refill(s), [Flexeril] Pharmacy: [place] [address] amitriptyli 2016-05 Yes 10 mg = 1 M emoria ne 10 mg 2-01 tab, PO, l oral tablet 14:52: Bedtime, 4 [place] 00 tabs at bedtime for 1 week then 5 tabs at bedtime thereafter , # 150 tab, 2 Refill(s), Pharmacy: [place] [address] diclofenac 2016-05 Yes 75 mg = 1 Me moria sodium 75 2-01 tab, PO, l mg oral 14:52: BID, PRN Gabo n enteric 00 Pain Score coated, 7-10, # 60 delayed-rel tab, 2 ease tablet Refill(s), Pharmacy: [place] [address] [facility] 2016-05 Yes 10 mg = 1 M emoria rine 2-01 tab, PO, l hydrochlori 14:52: BID, # 60 H ermann de 10 MG 00 tab, 2 Oral Tablet Refill(s), [Flexeril] Pharmacy: [place] [address] amitriptyli 2016-05 Yes 10 mg = 1 M emoria ne 10 mg 2-01 tab, PO, l oral tablet 14:52: Bedtime, 4 Mitesh 00 tabs at bedtime for 1 week then 5 tabs at bedtime thereafter , # 150 tab, 2 Refill(s), Pharmacy: [place] [address] diclofenac 2016-05 Yes 75 mg = 1 Me moria sodium 75 2-01 tab, PO, l mg oral 14:52: BID, PRN Gabo n enteric 00 Pain Score coated, 7-10, # 60 delayed-rel tab, 2 ease tablet Refill(s), Pharmacy: [place] [address] Cyclobenzap 2016-05 Yes 10 mg = 1 M emoria rine 2-01 tab, PO, l hydrochlori 14:52: BID, # 60 H ermann de 10 MG 00 tab, 2 Oral Tablet Refill(s), [Flexeril] Pharmacy: [place] [address] amitriptyli 2016-05 Yes 10 mg = 1 M emoria ne 10 mg 2-01 tab, PO, l oral tablet 14:52: Bedtime, 4 Mitesh 00 tabs at bedtime for 1 week then 5 tabs at bedtime thereafter , # 150 tab, 2 Refill(s), Pharmacy: [place] [address] diclofenac 2016-05 Yes 75 mg = 1 Me moria sodium 75 2-01 tab, PO, l mg oral 14:52: BID, PRN Gabo n enteric 00 Pain Score coated, 7-10, # 60 delayed-rel tab, 2 ease tablet Refill(s), Pharmacy: [place] [address] Cyclobenzap 2016-05 Yes 10 mg = 1 M emoria rine 2-01 tab, PO, l hydrochlori 14:52: BID, # 60 H ermann de 10 MG 00 tab, 2 Oral Tablet Refill(s), [Flexeril] Pharmacy: [place] [address] amitriptyli 2016-05 Yes 10 mg = 1 M emoria ne 10 mg 2-01 tab, PO, l oral tablet 14:52: Bedtime, 4 Mitesh 00 tabs at bedtime for 1 week then 5 tabs at bedtime thereafter , # 150 tab, 2 Refill(s), Pharmacy: [place] [address] diclofenac 2016-05 Yes 75 mg = 1 Me moria sodium 75 2-01 tab, PO, l mg oral 14:52: BID, PRN Gabo n enteric 00 Pain Score coated, 7-10, # 60 delayed-rel tab, 2 ease tablet Refill(s), Pharmacy: [place] [address] Cyclobenzap 2016-05 Yes 10 mg = 1 M emoria rine 2-01 tab, PO, l hydrochlori 14:52: BID, # 60 H ermann de 10 MG 00 tab, 2 Oral Tablet Refill(s), [Flexeril] Pharmacy: [place] [address] amitriptyli 2016-05 Yes 10 mg = 1 M emoria ne 10 mg 2-01 tab, PO, l oral tablet 14:52: Bedtime, 4 [place] 00 tabs at bedtime for 1 week then 5 tabs at bedtime thereafter , # 150 tab, 2 Refill(s), Pharmacy: [place] [address] diclofenac 2016-05 Yes 75 mg = 1 Me moria sodium 75 2-01 tab, PO, l mg oral 14:52: BID, PRN Gabo n enteric 00 Pain Score coated, 7-10, # 60 delayed-rel tab, 2 ease tablet Refill(s), Pharmacy: [facility] Cyclobenzap 2016- Yes 10 mg = 1 M emojack rine 2-01 tab, PO, l hydrochlori 14:52: BID, # 60 H ermann de 10 MG 00 tab, 2 Oral Tablet Refill(s), [Flexeril] Pharmacy: [facility] Lidocaine 2016- Yes 3 mL, Memoria Hydrochlori 2- Route: l de 10 MG/ML 14:50: SUB-Q, Herm chacorta Injectable 00 Dosing Solution Weight 141.364, kg, ONCE, (Preservat liliana Free), Start date: 04/25/17 8:50:00 LEAD ATHLETE, Stop date: 04/25/17 8:50:00 LEAD ATHLETE Omnipaque 2016- Yes 2 mL, Memoria 300 2- Route: l 14:50: EPIDURAL, Mitesh 00 Dosing Weight 141.364, kg, ONCE, (Preservat liliana Free), Start date: 04/25/17 8:50:00 LEAD ATHLETE, Stop date: 04/25/17 8:50:00 LEAD ATHLETE Dexamethaso 2017- Yes 8 mg, Memor ia ne 2- Route: l 14:50: EPIDURAL, [place] 00 ONCE, Dosing Weight 141.364, kg, (Preservat liliana Free), Start date: 04/25/17 8:50:00 LEAD ATHLETE, Stop date: 04/25/17 8:50:00 LEAD ATHLETE Bupivacaine 2017- Yes 2 mL, Memor ia Hydrochlori 2- Route: l de 2.5 14:50: EPIDURAL, Gabo n MG/ML 00 Dosing Injectable Weight Solution 141.364, kg, ONCE, (Preservat liliana Free), Start date: 04/25/17 8:50:00 LEAD ATHLETE, Stop date: 04/25/17 8:50:00 LEAD ATHLETE Sodium 2017- Yes 4.2 mL, Memoria Chloride 2-01 Route: l 14:50: EPIDURAL, Mitesh 00 Dosing Weight 141.364, kg, ONCE, (Preservat liliana Free), Start date: 04/25/17 8:50:00 LEAD ATHLETE, Stop date: 04/25/17 8:50:00 LEAD ATHLETE Lidocaine 2017- Yes 3 mL, Memoria Hydrochlori 2-01 Route: l de 10 MG/ML 14:50: SUB-Q, Herm chacorta Injectable 00 Dosing Solution Weight 141.364, kg, ONCE, (Preservat liliana Free), Start date: 04/25/17 8:50:00 LEAD ATHLETE, Stop date: 04/25/17 8:50:00 LEAD ATHLETE Omnipaque 2017-1 Yes 2 mL, Memoria 300 2-01 Route: l 14:50: EPIDURAL, Mitesh 00 Dosing Weight 141.364, kg, ONCE, (Preservat liliana Free), Start date: 04/25/17 8:50:00 LEAD ATHLETE, Stop date: 04/25/17 8:50:00 LEAD ATHLETE Dexamethaso 2017- Yes 8 mg, Memor ia ne 2- Route: l 14:50: EPIDURAL, [place] 00 ONCE, Dosing Weight 141.364, kg, (Preservat liliana Free), Start date: 04/25/17 8:50:00 LEAD ATHLETE, Stop date: 04/25/17 8:50:00 LEAD ATHLETE Bupivacaine 2017- Yes 2 mL, Memor ia Hydrochlori 2- Route: l de 2.5 14:50: EPIDURAL, Gabo n MG/ML 00 Dosing Injectable Weight Solution 141.364, kg, ONCE, (Preservat liliana Free), Start date: 04/25/17 8:50:00 LEAD ATHLETE, Stop date: 04/25/17 8:50:00 LEAD ATHLETE Sodium 2017-1 Yes 4.2 mL, Memoria Chloride 2-01 Route: l 14:50: EPIDURAL, Mitesh 00 Dosing Weight 141.364, kg, ONCE, (Preservat liliana Free), Start date: 04/25/17 8:50:00 LEAD ATHLETE, Stop date: 04/25/17 8:50:00 LEAD ATHLETE Lidocaine 2017-1 Yes 3 mL, Memoria Hydrochlori 2-01 Route: l de 10 MG/ML 14:50: SUB-Q, Herm chacorta Injectable 00 Dosing Solution Weight 141.364, kg, ONCE, (Preservat liliana Free), Start date: 04/25/17 8:50:00 LEAD ATHLETE, Stop date: 04/25/17 8:50:00 LEAD ATHLETE Omnipaque 2017-1 Yes 2 mL, Memoria 300 2-01 Route: l 14:50: EPIDURAL, [place] 00 Dosing Weight 141.364, kg, ONCE, (Preservat liliana Free), Start date: 04/25/17 8:50:00 LEAD ATHLETE, Stop date: 04/25/17 8:50:00 LEAD ATHLETE Dexamethaso 2017-1 Yes 8 mg, Memor ia ne 2-01 Route: l 14:50: EPIDURAL, Mitesh 00 ONCE, Dosing Weight 141.364, kg, (Preservat liliana Free), Start date: 04/25/17 8:50:00 LEAD ATHLETE, Stop date: 04/25/17 8:50:00 LEAD ATHLETE Bupivacaine 2017- Yes 2 mL, Memor ia Hydrochlori 2-01 Route: l de 2.5 14:50: EPIDURAL, Gabo n MG/ML 00 Dosing Injectable Weight Solution 141.364, kg, ONCE, (Preservat liliana Free), Start date: 04/25/17 8:50:00 LEAD ATHLETE, Stop date: 04/25/17 8:50:00 LEAD ATHLETE Sodium 2017-1 Yes 4.2 mL, Memoria Chloride 2-01 Route: l 14:50: EPIDURAL, Mitesh 00 Dosing Weight 141.364, kg, ONCE, (Preservat liliana Free), Start date: 04/25/17 8:50:00 LEAD ATHLETE, Stop date: 04/25/17 8:50:00 LEAD ATHLETE Lidocaine 2017-1 Yes 3 mL, Memoria Hydrochlori 2-01 Route: l de 10 MG/ML 14:50: SUB-Q, Herm chacorta Injectable 00 Dosing Solution Weight 141.364, kg, ONCE, (Preservat liliana Free), Start date: 04/25/17 8:50:00 LEAD ATHLETE, Stop date: 04/25/17 8:50:00 LEAD ATHLETE Omnipaque 2017-1 Yes 2 mL, Memoria 300 2-01 Route: l 14:50: EPIDURAL, [place] 00 Dosing Weight 141.364, kg, ONCE, (Preservat liliana Free), Start date: 04/25/17 8:50:00 LEAD ATHLETE, Stop date: 04/25/17 8:50:00 LEAD ATHLETE Dexamethaso 2017-1 Yes 8 mg, Memor ia ne 2-01 Route: l 14:50: EPIDURAL, [place] 00 ONCE, Dosing Weight 141.364, kg, (Preservat liliana Free), Start date: 04/25/17 8:50:00 LEAD ATHLETE, Stop date: 04/25/17 8:50:00 LEAD ATHLETE Bupivacaine 2017- Yes 2 mL, Memor ia Hydrochlori 2-01 Route: l de 2.5 14:50: EPIDURAL, Gabo n MG/ML 00 Dosing Injectable Weight Solution 141.364, kg, ONCE, (Preservat liliana Free), Start date: 04/25/17 8:50:00 LEAD ATHLETE, Stop date: 04/25/17 8:50:00 LEAD ATHLETE Sodium 2017- Yes 4.2 mL, Memoria Chloride 2- Route: l 14:50: EPIDURAL, Mitesh 00 Dosing Weight 141.364, kg, ONCE, (Preservat liliana Free), Start date: 04/25/17 8:50:00 LEAD ATHLETE, Stop date: 04/25/17 8:50:00 LEAD ATHLETE Lidocaine 2017- Yes 3 mL, Memoria Hydrochlori 2- Route: l de 10 MG/ML 14:50: SUB-Q, Herm chacorta Injectable 00 Dosing Solution Weight 141.364, kg, ONCE, (Preservat liliana Free), Start date: 04/25/17 8:50:00 LEAD ATHLETE, Stop date: 04/25/17 8:50:00 LEAD ATHLETE Omnipaque 2017- Yes 2 mL, Memoria 300 2-01 Route: l 14:50: EPIDURAL, Mitesh 00 Dosing Weight 141.364, kg, ONCE, (Preservat liliana Free), Start date: 04/25/17 8:50:00 LEAD ATHLETE, Stop date: 04/25/17 8:50:00 LEAD ATHLETE Dexamethaso 2017- Yes 8 mg, Memor ia ne 2- Route: l 14:50: EPIDURAL, Mitesh 00 ONCE, Dosing Weight 141.364, kg, (Preservat liliana Free), Start date: 04/25/17 8:50:00 LEAD ATHLETE, Stop date: 04/25/17 8:50:00 LEAD ATHLETE Bupivacaine 2017- Yes 2 mL, Memor ia Hydrochlori 2-01 Route: l de 2.5 14:50: EPIDURAL, Gabo n MG/ML 00 Dosing Injectable Weight Solution 141.364, kg, ONCE, (Preservat liliana Free), Start date: 04/25/17 8:50:00 LEAD ATHLETE, Stop date: 04/25/17 8:50:00 LEAD ATHLETE Sodium 2017-1 Yes 4.2 mL, Memoria Chloride 2-01 Route: l 14:50: EPIDURAL, [place] 00 Dosing Weight 141.364, kg, ONCE, (Preservat liliana Free), Start date: 04/25/17 8:50:00 LEAD ATHLETE, Stop date: 04/25/17 8:50:00 LEAD ATHLETE Sodium 2017-1 Yes 4.2 mL, Memoria Chloride 2-01 Route: l 14:50: EPIDURAL, [place] 00 Dosing Weight 141.364, kg, ONCE, (Preservat liliana Free), Start date: 04/25/17 8:50:00 LEAD ATHLETE, Stop date: 04/25/17 8:50:00 LEAD ATHLETE Lidocaine 2017-1 Yes 3 mL, Memoria Hydrochlori 2-01 Route: l de 10 MG/ML 14:50: SUB-Q, Herm chacorta Injectable 00 Dosing Solution Weight 141.364, kg, ONCE, (Preservat liliana Free), Start date: 04/25/17 8:50:00 LEAD ATHLETE, Stop date: 04/25/17 8:50:00 LEAD ATHLETE Omnipaque 2017-1 Yes 2 mL, Memoria 300 2-01 Route: l 14:50: EPIDURAL, [place] 00 Dosing Weight 141.364, kg, ONCE, (Preservat liliana Free), Start date: 04/25/17 8:50:00 LEAD ATHLETE, Stop date: 04/25/17 8:50:00 LEAD ATHLETE Dexamethaso 2017-1 Yes 8 mg, Memor ia ne 2-01 Route: l 14:50: EPIDURAL, Mitesh 00 ONCE, Dosing Weight 141.364, kg, (Preservat liliana Free), Start date: 04/25/17 8:50:00 LEAD ATHLETE, Stop date: 04/25/17 8:50:00 LEAD ATHLETE Bupivacaine 2017-1 Yes 2 mL, Memor ia Hydrochlori 2-01 Route: l de 2.5 14:50: EPIDURAL, Gabo n MG/ML 00 Dosing Injectable Weight Solution 141.364, kg, ONCE, (Preservat liliana Free), Start date: 04/25/17 8:50:00 LEAD ATHLETE, Stop date: 04/25/17 8:50:00 LEAD ATHLETE cyclobenzap cyclobenzap No cyclobenza [facility] rine 10 mg rine 10 mg joaquín 10 Medical tablet TAKE tablet TAKE mg tablet 1 TABLET BY 1 TABLET BY TAKE 1 MOUTH TWICE MOUTH TWICE TABLET BY DAILY DAILY MOUTH NEEDED NEEDED TWICE DAILY NEEDED diclofenac diclofenac No diclofenac [facility] sodium 75 sodium 75 sodium 75 Medical mg mg mg tablet,laly tablet,laly tablet,del yed release yed release ayed TAKE [...] with with applicator applicator applicator ANTWAN MONCADA, [place] [address] [place] [address] [place] [address] APPLY TO APPLY TO APPLY TO AFFECTED [...] 40 mg le 40 mg Medic al tablet,laly tablet,laly tablet,del yed release yed release ayed TAKE [...] 75 sodium 75 Medical mg mg mg tablet,laly tablet,laly tablet,del yed release yed release ayed TAKE [...] with with applicator applicator applicator ANTWAN MONCADA, [place] [address] [place] [address] [place] [address] APPLY TO APPLY TO APPLY TO AFFECTED [...] 40 mg le 40 mg Medic al tablet,laly tablet,laly tablet,del yed release yed release ayed TAKE [...] 75 sodium 75 Medical mg mg mg tablet,laly tablet,laly tablet,del yed release yed release ayed TAKE [...] with with with applicator applicator applicator ANTWAN MONCADA [facility] [place] [address] [place] [address] [place] [address] APPLY TO APPLY TO APPLY TO AFFECTED [...] 40 mg le 40 mg Medic al tablet,laly tablet,laly tablet,del yed release yed release ayed TAKE 1 TAKE 1 release TABLET BY TABLET BY TAKE 1 MOUTH MOUTH TABLET BY DAILY, 30 DAILY, 30 MOUTH MINUTES MINUTES DAILY, 30 BEFORE BEFORE MINUTES BREAKFAST BREAKFAST BEFORE BREAKFAST terbinafine terbinafine No terbinafin [facility] HCl 1 % HCl 1 % e HCl 1 % Medi asnjiv topical topical topical cream APPLY cream APPLY [...] 75 sodium 75 Medical mg mg mg tablet,laly tablet,laly tablet,del yed release yed release ayed TAKE [...] with with applicator applicator applicator ANTWAN MONCADA, [place] [address] [place] [address] [place] [address] APPLY TO APPLY TO APPLY TO AFFECTED [...] 40 mg le 40 mg Medic al tablet,laly tablet,laly tablet,del yed release yed release ayed TAKE 1 TAKE 1 release TABLET BY TABLET BY TAKE 1 MOUTH MOUTH TABLET BY DAILY, 30 DAILY, 30 MOUTH MINUTES MINUTES DAILY, 30 BEFORE BEFORE MINUTES BREAKFAST BREAKFAST BEFORE BREAKFAST terbinafine terbinafine No terbinafin [facility] HCl 1 % HCl 1 % e HCl 1 % [facility] sanjiv topical topical topical cream APPLY cream [...] 75 sodium 75 Medical mg mg mg tablet,laly tablet,laly tablet,del yed release yed release ayed TAKE [...] with with applicator applicator applicator ANTWAN MONCADA, [facility] [place] [address] [place] [address] [place] [address] APPLY TO APPLY TO APPLY TO AFFECTED [...] 40 mg le 40 mg Medic al tablet,laly tablet,laly tablet,del yed release yed release ayed TAKE [...] 75 sodium 75 Medical mg mg mg tablet,laly tablet,laly tablet,del yed release yed release ayed TAKE [...] Immunizations Ordered Filled Immunization Date Status Comments [facility] e Immunization Name Name SARS-COV-2 COVID-19 2021-04-12 Completed Unive rsity of PFIZER VACCINE 00:00:00 [facility] SARS-COV-2 COVID-19 2020-08-24 Completed Unive rsity of PFIZER VACCINE 00:00:00 [facility] SARS-COV-2 COVID-19 2020-08-03 Completed Unive rsity of PFIZER VACCINE 00:00:00 [facility] Influenza Virus 2018-06-26 Completed Universit y of Vaccine Quad .5 mL 00:00:00 [facility] 6+ MO Branch Vital Signs Vital Name Observation Time Observation Value Comments Source BP Diastolic 2022-04-11 00:00:00 70 mm[Hg] [facility] Height 2022-04-11 00:00:00 70 [in_i] [facility] BMI (Body Mass Index) 2022-04-11 00:00:00 49.5 kg/m2 [facility] BP Systolic 2022-04-11 00:00:00 130 mm[Hg] [facility] Body Weight 2022-04-11 00:00:00 345 [lb_av] [facility] BP Diastolic 2021-09-24 00:00:00 60 mm[Hg] [facility] Height 2021-09-24 00:00:00 70 [in_i] [facility] BMI (Body Mass Index) 2021-09-24 00:00:00 46.9 kg/m2 [facility] BP Systolic 2021-09-24 00:00:00 140 mm[Hg] [facility] Body Weight 2021-09-24 00:00:00 327 [lb_av] [facility] BP Diastolic 2020-09-13 00:00:00 80 mm[Hg] [facility] Height 2020-09-13 00:00:00 70 [in_i] [facility] BMI (Body Mass Index) 2020-09-13 00:00:00 45.3 kg/m2 [facility] BP Systolic 2020-09-13 00:00:00 142 mm[Hg] [facility] Body Weight 2020-09-13 00:00:00 316 [lb_av] [facility] Height 2017-06-05 17:46:00 177.8 cm [facility] Mitesh Weight 2017-06-05 17:46:00 [facility] M[facility] BMI Calculated 2017-06-05 17:46:00 [facility] Systolic (mm Hg) 2017-06-05 17:46:00 Chuck Sagastume Diastolic (mm Hg) 2017-06-05 17:46:00 Mem orial Mitesh Temperature Oral (F) 2017-06-05 17:46:00 99.3 F [facility] Mitesh Heart Rate 2017-06-05 17:46:00 [facility] BMI Calculated 2017-04-29 15:23:00 [facility] Weight 2017-04-29 15:23:00 [facility] 2017-04-29 15:23:00 177.8 cm [facility] Heart Rate 2017-04-29 15:00:00 [facility] Respitory Rate 2017-04-29 15:00:00 Gary al [place] Systolic (mm Hg) 2017-04-29 15:00:00 Chuck riamarga Mitesh Diastolic (mm Hg) 2017-04-29 15:00:00 [facility] orial [place] Procedures Procedure Date / Time Performing Clinician Source Performed SARS-COV-2 COVID-19 2021-04-12 22:54:16 Doctor Unassigned, No [facility] [place] VACCINE,0.3ML,IM Name Medical Branch ([employer]) Drainage of Skin 2019-11-02 00:00:00 [facility] sanjiv Abscess Myelography via lumbar 2017-04-29 16:14:00 Memor ial [place] injection, including radiological supervision and interpretation; thoracic Myelography via lumbar 2017-04-29 16:14:00 Memor ial Mitesh injection, including radiological supervision and interpretation; lumbosacral NJX INTERLAMINAR 2017-04-25 14:50:[facility] Ear [facility] Lumbar epidural [facility] injection Lumbar epidural steroid [facility] injection Nose operation [facility] Operation [facility] Plan of Care Planned Activity Planned Date Details Comments Source Diagnostic Test Pending 2022-04-11 00:00:00 glucose, [facility] fingerstick, blood [code = glucose, fingerstick, blood] Encounters Start End Encounter Admission Attending Care Care Encounter Source Date/Time Date/Time Type Type Clinicians Facility Department ID 2022-10-09 2022-10-09 Outpatient [email or web address] PRIV PRIV [id number] [facility] 00:00:00 00:00:00 es_A [id number] Medica l 2022-10-07 2022-10-07 Outpatient GC_EDEC_Hay PRIV PRIV [id number] [facility] 00:00:00 00:00:00 es_A [id number] Medica l 2022-07-15 2022-07-15 Outpatient GC_EDEC_Hay PRIV PRIV 211 [id number] [facility] 00:00:00 00:00:00 es_A [id number] Medica l 2022-07-15 2022-07-15 Outpatient GC_EDEC_Hay PRIV PRIV 211 [id number] [facility] 00:00:00 00:00:00 es_A [id number] Medica l 2022-07-15 2022-07-15 [facility] 20 [facility] 00:00:00 00:00:00 [facility] kaila Cotter, GC_EDEC_Pas 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 2022-04-10 2022-04-10 Outpatient GC_EDEC_Hay PRIV PRIV 211 [id number] [facility] 00:00:00 00:00:00 es_A [id number] Medica l 2022-01-04 2022-01-04 Outpatient GC_EDEC_Hay PRIV PRIV 211 [id number] [facility] 00:00:00 00:00:00 es_A [id number] Medica l 2021-12-31 2021-12-31 Outpatient GC_EDEC_Hay PRIV PRIV 211 [id number] [facility] 00:00:00 00:00:00 es_A [id number] Medica l 2021-09-242021-09-24 Outpatient GC_EDEC_Hay PRIV PRIV 211 [id number] [facility] 11:24:00 11:24:00 es_A [id number] Medica l 2021-09-24 2021-09-24 Outpatient Kit PRIV PRIV [id number] 00:00:00 00:00:00 Ellen [id number] [facility] [id number] 2021-09-24 2021-09-24 Ellen [facility] 00:00:00 00:00:00 [facility] MD Kit: GC_EDEC_Pas [address] [facility] Office* [address] [place] [address], [place] [address] , Ph. 2021-09-20 2021-09-20 Outpatient GC_EDEC_Hay PRIV PRIV 211 [id number] [facility] 03:44:00 03:44:00 es_A [id number] Medica l 2021-04-12 2021-04-12 Outpatient Florencio SLOAN [facility] [id number] Univers 16:30:00 16:30:00 PAUL simon [facility] 2021-04-12 2021-04-12 Imm/Inj Nurse, Adc Pob Immunization [facility] [id number] Univers 16:14:33 16:14:42 Visit Paul Sloan [place] [id number] .10 [facility] 4.2.7.2.686 Elizabeth BENJAMIN [phone] [address] 2021-01-16 2021-01-16 Outpatient GC_EDEC_Hay PRIV PRIV 211 [id number] [facility] 07:11:00 07:11:00 es_A [id number] Medica l 2020-09-25 2020-09-25 Outpatient GC_EDEC_Hay PRIV PRIV 211 [id number] [facility] 02:20:00 02:20:00 es_A [id number] Medica l 2020-09-19 2020-09-19 Outpatient GC_EDEC_Hay PRIV PRIV 211 [id number] [facility] 02:41:00 02:41:00 es_A [id number] Medica l 2020-09-13 2020-09-13 Outpatient GC_EDEC_Hay PRIV PRIV 211 [id number] [facility] 06:01:00 06:01:00 es_A [id number] Medica l 2020-09-13 2020-09-13 Outpatient Kit PRIV PRIV [id number]-2 00:00:00 00:00:00 Ellen [id number] [facility] [id number] 2020-09-13 2020-09-13 Ellen [facility]IV [facility] 21 [facility] 00:00:00 00:00:00 [facility] kaila Pantoja MD: GC_EDEC_Pas 6243 [facility] Office* [address], [place] [address], [place] [address] , Ph. 2020-09-11 2020-09-11 Outpatient GC_EDEC_Hay PRIV PRIV 211 [id number] [facility] 12:06:00 12:06:00 es_A [id number] Medica l 2020-09-06 2020-09-06 Outpatient GC_EDEC_Hay PRIV PRIV 211 [id number] [facility] 06:40:00 06:40:00 es_A [id number] Medica l 2020-08-24 2020-08-24 Outpatient Florencio SARMIENTO, [facility] [id number] Univers 14:40:00 14:40:00 JAZMIN [facility] 2020-08-03 2020-08-03 Outpatient [facility] [id number] Univers 14:40:00 14:40:00 [facility] 2020-02-08 2020-02-08 Inpatient PILI Radha [facility] [id number] [facility] 08:00:00 08:00:00 Neel 42 [facility] 2020-02-02 2020-02-02 Outpatient CHINO MASON [facility] [id number] Univers 11:30:00 11:30:00 [facility] 2020-02-02 2020-02-02 Laboratory Only, [facility] [id number] 11:14:48 11:29:48 Only Test [place] [id number] [place] 4.2.7.2.686 Angie [id number] [id number] 2020-02-02 2020-02-02 Orders Doctor DULCE 1.2.840.114 [id number] 00:00:00 00:00:00 Only Unassigned, KIMBER[facility] [id number] [facility] 4.2.7.2.686 [id number] 2020-01-05 2020-01-05 Telephone Atkins, [facility] [id number] 00:00:00 00:00:00 Wentong [place] [id number] [place] 4.2.7.2.686 Professio [id number] [address] 2019-06-16 2019-06-16 Telephone Atkins, [facility] [id number] 00:00:00 00:00:00 Wentong [place] 350.1.13.10 [place] 4.2.7.2.686 Professio [phone] [address] 2019-06-09 2019-06-09 Telephone Atkins, [facility] [id number] 00:00:00 00:00:00 Wentong [place] [id number] [place] 4.2.7.2.686 Professio [id number] [address] 2019-02-10 2019-02-10 Telephone Atkins, [facility] [id number] 00:00:00 00:00:00 [place]ong [place] [id number] [place] 4.2.7.2.686 Professio [id number] [address] 2018-12-13 2018-12-13 Orders Doctor DULCE 1.2.840.114 [id number] 00:00:00 00:00:00 Only Unassigned, [place]IM[place] [id number] [facility] 4.2.7.2.686 [id number] 2018-11-27 2018-11-27 Refill Atkins, [facility] 1.2.840.114 [id number] 00:00:00 00:00:00 Wentong [place] [id number] [place] 4.2.7.2.686 [facility] [phone] [address] 2017-12-04 2017-12-04 Ambulatory nullFlavo [facility] [id number] [facility] 15:30:00 15:30:00 Pre-Reg r Clinic [facility] 07 [facility] 2017-12-04 2017-12-04 Ambulatory nullFlavo [facility] [id number] [facility] 15:30:00 15:30:00 Pre-Reg r Clinic [facility] 07 [facility] 2017-12-04 2017-12-04 Outpatient MHIE MHIE [id number] [facility] 10:30:00 10:30:00 07 [facility] 2017-12-04 2017-12-04 Outpatient Dulce Lau [facility] M[facility] [id number] 10:30:00 10:30:00 [facility] 2017-06-06 2017-06-08 Phone nullFlavo [facility] [id number] [facility] 20:31:00 05:59:59 Message r Clinic [facility] 09 [facility] 2017-06-06 2017-06-08 Phone nullFlavo [facility] [id number] [facility] 20:31:00 05:59:59 Message r Clinic TM 09 [facility] 2017-06-06 2017-06-07 Outpatient MHMISCHER MHMISCHER [id number] 14:31:00 23:59:59 09 2017-06-06 2017-06-07 Outpatient MHMISCHER MHMISCHER [id number] 14:31:00 23:59:59 2017-06-05 2017-06-06 Outpatient nullFlavo [facility] [id number] [facility] 17:30:00 05:59:59 r Clinic TM 05 [facility] 2017-06-05 2017-06-06 Outpatient nullFlavo [facility] [id number] [facility] 17:30:00 05:59:59 r Clinic [facility] 05 [facility] 2017-06-05 2017-06-05 Outpatient Dulce Lau [facility] M[facility] [id number] 11:30:00 23:59:59 C 2017-06-05 2017-06-05 Outpatient Dulce Lau [facility] M[facility] [id number] 11:30:00 23:59:59 C 2017-06-05 2017-06-05 Outpatient MHIE IE [id number] [facility] 11:30:00 11:30:00 05 [facility] 2017-04-30 2017-05-02 Phone nullFlavo [facility] [id number] [facility] 17:52:00 05:59:59 Message r Clinic TM 08 [facility] 2017-04-30 2017-05-02 Phone nullFlavo [facility] [id number] [facility] 17:52:00 05:59:59 Message r Clinic TM 08 [facility] 2017-04-30 2017-05-01 Outpatient MHMISCHER MHMISCHER [id number] 11:52:00 23:59:59 08 2017-04-29 2017-04-30 Outpatient [facility]Flavo [facility] [id number] [facility] 14:20:00 05:59:00 [facility] 00 [facility] 2017-04-29 2017-04-30 Outpatient [facility]Flavo [facility] [id number] [facility] 14:20:00 05:59:00 r [place] 00 [facility] 2017-04-29 2017-04-29 Outpatient Dulce Lau [facility] [id number] 08:20:00 23:59:00 C 2017-04-25 2017-04-26 Outpatient nullFlavo [facility] [id number] [facility] 14:00:00 05:59:59 r Clinic TM 06 [facility] 2017-04-25 2017-04-26 Outpatient nullFlavo [facility] [id number] [facility] 14:00:00 05:59:59 r Clinic TM 06 [facility] 2017-04-24 2017-04-26 Phone nullFlavo [facility] [id number] [facility] 22:30:00 05:59:59 Message r Clinic [facility] 07 [facility] 2017-04-24 2017-04-26 Phone nullFlavo [facility] [id number] [facility] 22:30:00 05:59:59 Message r Clinic [facility] 07 [facility] 2017-04-24 2017-04-26 Phone nullFlavo [facility] [id number] [facility] 22:27:00 05:59:59 Message r Clinic [facility] 06 [facility] 2017-04-24 2017-04-26 Phone nullFlavo [facility] [id number] [facility] 22:27:00 05:59:59 Message r Clinic [facility] 06 [facility] 2017-04-25 2017-04-25 Outpatient Edin, MHMISCHER MHMISCHER [id number] 08:00:00 23:59:59 Camacho Cook 06 2017-04-24 2017-04-25 Outpatient MHMISCHER M[facility]ISCHER [id number] 16:30:00 23:59:59 07 2017-04-24 2017-04-25 Outpatient MHMISCHER MHMISCHER [id number] 16:27:00 23:59:59 06 2017-04-25 2017-04-25 Outpatient MHIE MHIE [id number] [facility] 08:00:00 08:00:00 06 [facility] 2017-04-04 2017-04-04 Outpatient MHIE MHIE [id number] [facility] 13:00:00 13:00:00 04 [facility] 2017-04-04 2017-04-04 Outpatient MHIE MHIE [id number] [facility] 13:00:00 13:00:00 04 [facility] 2017-03-19 2017-03-20 Outpatient [facility]Flavo [facility] [id number] [facility] 15:22:00 04:59:[address] 2017-03-19 2017-03-20 Outpatient [facility]Flavo [facility] [id number] [facility] 15:22:00 04:59:[address] 2017-03-19 2017-03-19 Outpatient Manjinder Kowalski [facility] [id number] 10:22:00 23:59:00 kevin 2017-03-19 2017-03-19 Outpatient MHIE MHIE [id number] [facility] 08:45:00 08:45:00 03 [facility] 2017-03-19 2017-03-19 Outpatient MHIE MHIE [id number] [facility] 08:45:00 08:45:00 03 [facility] 2017-03-19 2017-03-19 Outpatient MHIE MHIE [id number] [facility] 07:45:00 07:45:00 02 [facility] 2017-03-19 2017-03-19 Outpatient MHIE MHIE [id number] [facility] 07:45:00 07:45:00 02 marga [place] 2016-09-04 2016-09-04 Outpatient AMPARO CHRISTENSEN [id number] [facility] 07:45:00 07:45:00 01 marga Mitesh 2016-09-04 2016-09-04 Outpatient AMPARO CHRISTENSEN [id number] [facility] 07:45:00 07:45:00 01 marga Mitesh 2016-08-19 2016-08-19 Outpatient AMPARO CHRISTENSEN [id number] [facility] 10:30:00 10:30:00 00 marga [place] 2016-08-19 2016-08-19 Outpatient AMPARO CHRISTENSEN [id number] [facility] 10:30:00 10:30:00 00 marga Mitesh Results Test Description Test Time Test Comments Results Result Comments Source Glucose [Mass/volume] in Capillary blood 2022-04-11 14:44:52 Test Item Value Reference Range Interpretation Comme nts glucose (test code = glucose) 190 mg/dL 65-99 [facility] [Mass/volume] in Capillary [id number] 14:44:52 Test Item Value Reference Range Interpretation Comments glucose (test code = glucose) 190 mg/dL 65-99 [facility]ucose [Mass/volume] in Capillary [id number] 14:44:52 Test Item Value Reference Range Interpretation Comments glucose (test code = glucose) 190 mg/dL 65-99 [facility] Medical[facility]ucose [Mass/volume] in Capillary [id number] 09:57:51 Test Item Value Reference Range Interpretation Comments glucose (test code = glucose) 264 mg/dL 65-99 [facility] OcrunrrRWIGOT7407-76-27 15:58:00 Test Item Value Reference Range Interpretation Comments GLUBED (test code = GLUBED) 147 MG/DL 70-105 H [id number] 16:42:00 Test Item Value Reference Range Interpretation Comments PTT (test code = PTT) 29.4 s 22.9-35.8 [facility]IdkkmoyBKUCTAUZWI7842-64-20 16:42:00 Test Item Value Reference Range Interpretation Comments PT (test code = PT) 12.8 s 12.0-14.7 [facility] AntonioPepdvueWKGEWOXEEH1247-93-34 16:42:00 Test Item Value Reference Range Interpretation Comments INR (test code = INR) 0.96 0.85-1.17 [facility] AntonioVwjbcuoKEZWSLOTGK1714-92-81 16:42:00 Test Item Value Reference Range Interpretation Comments PTT (test code = PTT) 29.4 s 22.9-35.8 [facility] AntonioKqypdahEOGTCETETO2036-42-86 16:42:00 Test Item Value Reference Range Interpretation Comments PT (test code = PT) 12.8 s 12.0-14.7 [facility] AntonioXyheidjLRVRRANJYU5370-62-21 16:42:00 Test Item Value Reference Range Interpretation Comments INR (test code = INR) 0.96 0.85-1.17 [facility] AntonioMkifbdwQXROEBUQAW5906-22-82 16:42:00 Test Item Value Reference Range Interpretation Comments PTT (test code = PTT) 29.4 s 22.9-35.8 [facility] AntonioThgxpqnSIQCYJTPQI2039-85-52 16:42:00 Test Item Value Reference Range Interpretation Comments PT (test code = PT) 12.8 s 12.0-14.7 [facility] AntonioBcekymlWOEMEANBBQ7100-29-99 16:42:00 Test Item Value Reference Range Interpretation Comments INR (test code = INR) 0.96 0.85-1.17 [facility] AntonioSndwvidCYHFZTJJHF8262-93-17 16:42:00 Test Item Value Reference Range Interpretation Comments PTT (test code = PTT) 29.4 s 22.9-35.8 [facility] AntonioLtvybsyGUJZXALTGP4747-05-29 16:42:00 Test Item Value Reference Range Interpretation Comments PT (test code = PT) 12.8 s 12.0-14.7 [facility] AntonioOcchaeuFHLQIVCFPT5942-57-06 16:42:00 Test Item Value Reference Range Interpretation Comments INR (test code = INR) 0.96 0.85-1.17 [facility] AntonioWhdmgxoAOZTQZSRKD7468-19-97 16:42:00 Test Item Value Reference Range Interpretation Comments PTT (test code = PTT) 29.4 s 22.9-35.8 [facility] AntonioVtaszegHQFQRDHBCA3787-67-44 16:42:00 Test Item Value Reference Range Interpretation Comments PT (test code = PT) 12.8 s 12.0-14.7 [facility] AntonioDrcrmrtFCCXFTQIXQ3402-49-39 16:42:00 Test Item Value Reference Range Interpretation Comments INR (test code = INR) 0.96 0.85-1.[address]12-05 16:42:00 Test Item Value Reference Range Interpretation Comments PTT (test code = PTT) 29.4 s 22.9-35.8 [place] [address]-12-05 16:42:00 Test Item Value Reference Range Interpretation Comments PT (test code = PT) 12.8 s 12.0-14.7 [place] [address]-12-05 16:42:00 Test Item Value Reference Range Interpretation Comments INR (test code = INR) 0.96 0.85-1.17 [facility]2017-12-05 15:26:00 Test Item Value Reference Range Interpretation Comments eGFR (test code = eGFR) [address] [place] 141267-12-05 15:26:00 Test Item Value Reference Range Interpretation Comments Creatinine Lvl (test code = Creatinine 0.92 0.50-1.40 Lvl) [place] 141267-12-05 15:26:00 Test Item Value Reference Range Interpretation Comments BUN (test code = BUN) 21 7- [place] 401157-12-05 15:26:00 Test Item Value Reference Range Interpretation Comments MCV (test code = MCV) 84.7 80.0-94.0 [place] 401157-12-05 15:26:00 Test Item Value Reference Range Interpretation Comments Hct (test code = Hct) 41.3 42.0-54.0 [place] 401157-12-05 15:26:00 Test Item Value Reference Range Interpretation Comments MCH (test code = MCH) 27.9 pg 27.0-31.0 [facility] AntonioPltpmmrFJRHMGTGSV6614-78-23 15:26:00 Test Item Value Reference Range Interpretation Comments MCHC (test code = MCHC) 32.9 32.0-36.0 [facility] AntonioXsgvuvtLRUNZJOVUT8222-89-66 15:26:00 Test Item Value Reference Range Interpretation Comments WBC (test code = WBC) 7.2 3.7-10.4 [facility] AntonioIdpgbxjVHNNRVIKGS0684-88-41 15:26:00 Test Item Value Reference Range Interpretation Comments RBC (test code = RBC) 4.87 4.70-6.10 [place] 401157-12-05 15:26:00 Test Item Value Reference Range Interpretation Comments Hgb (test code = Hgb) 13.6 14.0-18.0 [facility] AntonioJuzxtzoLUEZIJCJEM6480-41-93 15:26:00 Test Item Value Reference Range Interpretation Comments RDW (test code = RDW) 16.1 11.5-14.5 [facility] AntonioZnubvdhTBKCSNXMFP0168-35-95 15:26:00 Test Item Value Reference Range Interpretation Comments Platelet (test code = Platelet) 239 133-450 [facility] AntonioQjzlktlLJBOWYWISQ9138-10-43 15:26:00 Test Item Value Reference Range Interpretation Comments MPV (test code = MPV) 8.0 7.4-10.4 [facility]2017-12-05 15:26:00 Test Item Value Reference Range Interpretation Comments eGFR (test code = eGFR) 95 [facility]2017-12-05 15:26:00 Test Item Value Reference Range Interpretation Comments Creatinine Lvl (test code = Creatinine 0.92 0.50-1.40 Lvl) [facility]2017-12-05 15:26:00 Test Item Value Reference Range Interpretation Comments BUN (test code = BUN) 21 7-22 [facility] AntonioYutqtlcALPZFMUYGX4168-64-02 15:26:00 Test Item Value Reference Range Interpretation Comments MCV (test code = MCV) 84.7 80.0-94.0 [facility] AntonioIabcpubJUYHHCPDWP7593-55-06 15:26:00 Test Item Value Reference Range Interpretation Comments Hct (test code = Hct) 41.3 42.0-54.0 [facility] AntonioAncpshyYHXOPDTKCU1710-91-17 15:26:00 Test Item Value Reference Range Interpretation Comments MCH (test code = MCH) 27.9 pg 27.0-31.0 [facility] AntonioZjjzywmNVVWFMIYZX7429-14-67 15:26:00 Test Item Value Reference Range Interpretation Comments MCHC (test code = MCHC) 32.9 32.0-36.0 [facility] AntonioXcmbsvkJSUXYVSENE6423-68-82 15:26:00 Test Item Value Reference Range Interpretation Comments WBC (test code = WBC) 7.2 3.7-10.4 [facility] AntonioFjanqxbXUBWQJEAJL5324-28-37 15:26:00 Test Item Value Reference Range Interpretation Comments RBC (test code = RBC) 4.87 4.70-6.10 [facility] AntonioWvyvhztHBOTCYIDIE7350-73-45 15:26:00 Test Item Value Reference Range Interpretation Comments Hgb (test code = Hgb) 13.6 14.0-18.0 [facility] AntonioJtnmqrrEAKBNVHGOT9366-60-81 15:26:00 Test Item Value Reference Range Interpretation Comments RDW (test code = RDW) 16.1 11.5-14.5 [facility] AntonioWfsibhjOSLKZPTKPI7754-22-35 15:26:00 Test Item Value Reference Range Interpretation Comments Platelet (test code = Platelet) 239 133-450 [facility] AntonioQjwjfjyUGLSNZYHTW2435-01-59 15:26:00 Test Item Value Reference Range Interpretation Comments MPV (test code = MPV) 8.0 7.4-10.4 [facility]2017-12-05 15:26:00 Test Item Value Reference Range Interpretation Comments eGFR (test code = eGFR) 95 [facility]2017-12-05 15:26:00 Test Item Value Reference Range Interpretation Comments Creatinine Lvl (test code = Creatinine 0.92 0.50-1.40 Lvl) [facility]2017-12-05 15:26:00 Test Item Value Reference Range Interpretation Comments BUN (test code = BUN) 21 7-22 [facility] AntonioCxgaqziPLNNFZKGXB7904-48-83 15:26:00 Test Item Value Reference Range Interpretation Comments MCV (test code = MCV) 84.7 80.0-94.0 [facility] AntonioPwuprbrHMPFNIZSAL4034-74-40 15:26:00 Test Item Value Reference Range Interpretation Comments Hct (test code = Hct) 41.3 42.0-54.0 [facility] AntonioNlshljrVBOLDHFOGC6358-72-82 15:26:00 Test Item Value Reference Range Interpretation Comments MCH (test code = MCH) 27.9 pg 27.0-31.0 [facility] AntonioMaoxfjbGJWYOKRZFH5621-27-06 15:26:00 Test Item Value Reference Range Interpretation Comments MCHC (test code = MCHC) 32.9 32.0-36.0 [facility] AntonioObjljhgAVJHYDGWVE3030-23-09 15:26:00 Test Item Value Reference Range Interpretation Comments WBC (test code = WBC) 7.2 3.7-10.4 [facility] AntonioDbjoprzCMUUHHXYKO0427-44-71 15:26:00 Test Item Value Reference Range Interpretation Comments RBC (test code = RBC) 4.87 4.70-6.10 [facility] AntonioQxonhpnIRQBDJBRHS3699-99-90 15:26:00 Test Item Value Reference Range Interpretation Comments Hgb (test code = Hgb) 13.6 14.0-18.0 [facility] AntonioPwrctfmOKYWOHDYBF2640-66-19 15:26:00 Test Item Value Reference Range Interpretation Comments RDW (test code = RDW) 16.1 11.5-14.5 [facility] AntonioUhibnoiAZXOPHSSHS8716-04-64 15:26:00 Test Item Value Reference Range Interpretation Comments Platelet (test code = Platelet) 239 133-450 [facility] AntonioDmvtgjkAOXNBASKTE0555-04-04 15:26:00 Test Item Value Reference Range Interpretation Comments MPV (test code = MPV) 8.0 7.4-10.4 [facility]2017-12-05 15:26:00 Test Item Value Reference Range Interpretation Comments eGFR (test code = eGFR) 95 [facility]2017-12-05 15:26:00 Test Item Value Reference Range Interpretation Comments Creatinine Lvl (test code = Creatinine 0.92 0.50-1.40 Lvl) [facility]2017-12-05 15:26:00 Test Item Value Reference Range Interpretation Comments BUN (test code = BUN) 21 7-22 [facility] AntonioGvkguqmHJXSFAOLFK5836-96-19 15:26:00 Test Item Value Reference Range Interpretation Comments MCV (test code = MCV) 84.7 80.0-94.0 [facility] AntonioCwrtdicELRMJIVYVW0508-77-78 15:26:00 Test Item Value Reference Range Interpretation Comments Hct (test code = Hct) 41.3 42.0-54.0 [facility] AntonioEfeqsjyXHAHVQYYAD1359-88-79 15:26:00 Test Item Value Reference Range Interpretation Comments MCH (test code = MCH) 27.9 pg 27.0-31.0 [place] 401157-12-05 15:26:00 Test Item Value Reference Range Interpretation Comments MCHC (test code = MCHC) 32.9 32.0-36.0 [facility] AntonioJeoffoqWABGEIWQTL8737-35-42 15:26:00 Test Item Value Reference Range Interpretation Comments WBC (test code = WBC) 7.2 3.7-10.4 [facility] AntonioEmwnvvlJIPDYSAKGR8724-96-29 15:26:00 Test Item Value Reference Range Interpretation Comments RBC (test code = RBC) 4.87 4.70-6.10 [facility] AntonioMcftyxySOJAEUDWHD1981-25-21 15:26:00 Test Item Value Reference Range Interpretation Comments Hgb (test code = Hgb) 13.6 14.0-18.0 [place] 401157-12-05 15:26:00 Test Item Value Reference Range Interpretation Comments RDW (test code = RDW) 16.1 11.5-14.5 [facility] AntonioQekqhsvFSOODMDPSH8457-42-20 15:26:00 Test Item Value Reference Range Interpretation Comments Platelet (test code = Platelet) 239 133-450 [facility] AntonioYasbpesCNBZPVRVGK3463-68-14 15:26:00 Test Item Value Reference Range Interpretation Comments MPV (test code = MPV) 8.0 7.4-10.4 [facility]2017-12-05 15:26:00 Test Item Value Reference Range Interpretation Comments eGFR (test code = eGFR) 95 [place] 141267-12-05 15:26:00 Test Item Value Reference Range Interpretation Comments Creatinine Lvl (test code = Creatinine 0.92 0.50-1.40 Lvl) [facility]2017-12-05 15:26:00 Test Item Value Reference Range Interpretation Comments BUN (test code = BUN) 21 7-22 [facility] AntonioHeflxzpHQXQAEWVOH2587-73-70 15:26:00 Test Item Value Reference Range Interpretation Comments MCV (test code = MCV) 84.7 80.0-94.0 [place] 401157-12-05 15:26:00 Test Item Value Reference Range Interpretation Comments Hct (test code = Hct) 41.3 42.0-54.0 [place] 401157-12-05 15:26:00 Test Item Value Reference Range Interpretation Comments MCH (test code = MCH) 27.9 pg 27.0-31.0 [place] 401157-12-05 15:26:00 Test Item Value Reference Range Interpretation Comments MCHC (test code = MCHC) 32.9 32.0-36.0 [id number] 15:26:00 Test Item Value Reference Range Interpretation Comments WBC (test code = WBC) 7.2 3.7-10.4 [id number] 15:26:00 Test Item Value Reference Range Interpretation Comments RBC (test code = RBC) 4.87 4.70-6.10 [facility] [id number] 15:26:00 Test Item Value Reference Range Interpretation Comments Hgb (test code = Hgb) 13.6 14.0-18.0 [id number] 15:26:00 Test Item Value Reference Range Interpretation Comments RDW (test code = RDW) 16.1 11.5-14.5 [facility] [id number] 15:26:00 Test Item Value Reference Range Interpretation Comments Platelet (test code = Platelet) 239 133-450 [facility] Anton[id number] 15:26:00 Test Item Value Reference Range Interpretation Comments MPV (test code = MPV) 8.0 7.4-10.4 [facility]2017-12-05 15:26:00 Test Item Value Reference Range Interpretation Comments eGFR (test code = eGFR) 95 [facility]2017-12-05 15:26:00 Test Item Value Reference Range Interpretation Comments Creatinine Lvl (test code = Creatinine 0.92 0.50-1.40 Lvl) [facility]2017-12-05 15:26:00 Test Item Value Reference Range Interpretation Comments BUN (test code = BUN) 21 7-22 [facility] AntonioVwweofcPTIPPZLXRD4419-10-65 15:26:00 Test Item Value Reference Range Interpretation Comments MCV (test code = MCV) 84.7 80.0-94.0 [place] [id number] 15:26:00 Test Item Value Reference Range Interpretation Comments Hct (test code = Hct) 41.3 42.0-54.0 [facility] AntonioOmdegbnRSDNDEYPEZ0724-48-39 15:26:00 Test Item Value Reference Range Interpretation Comments MCH (test code = MCH) 27.9 pg 27.0-31.0 [facility] [id number] 15:26:00 Test Item Value Reference Range Interpretation Comments MCHC (test code = MCHC) 32.9 32.0-36.0 [place] [id number] 15:26:00 Test Item Value Reference Range Interpretation Comments WBC (test code = WBC) 7.2 3.7-10.4 [facility] [id number] 15:26:00 Test Item Value Reference Range Interpretation Comments RBC (test code = RBC) 4.87 4.70-6.10 [facility] AntonioYbeymnnMLELYZEYBH8781-47-06 15:26:00 Test Item Value Reference Range Interpretation Comments Hgb (test code = Hgb) 13.6 14.0-18.0 [facility] Anton[id number] 15:26:00 Test Item Value Reference Range Interpretation Comments RDW (test code = RDW) 16.1 11.5-14.5 [facility] Anton[id number] 15:26:00 Test Item Value Reference Range Interpretation Comments Platelet (test code = Platelet) 239 133-450 [facility] Anton[id number] 15:26:00 Test Item Value Reference Range Interpretation Comments MPV (test code = MPV) 8.0 7.4-10.4 [place] [id number] 05:57:00 Test Item Value Reference Range Interpretation [...] ( 4 - SerumAlbumin)] EGFR if >60 Moroccan (test code mL/min/1.73m\\ [...] and management of c hronic kidney failure. [facility] WITH AUTO [id number] 05:42:00 Test Item Value Reference Range Interpretation [...] code = 1.0 % 0.0-0.4 H IG%) [facility] 05:53:00 Test Item Value Reference Range Interpretation [...] ( 4 - SerumAlbumin)] EGFR if >60 Moroccan (test code mL/min/1.73m\\ [...] and management of c hronic kidney failure. [facility] WITH AUTO [id number] 05:27:00 Test Item Value Reference Range Interpretation [...] code = 1.7 % 0.0-0.4 H IG%) [facility] 04:36:00 Test Item Value Reference Range Interpretation [...] ( 4 - SerumAlbumin)] EGFR if >60 Moroccan (test code mL/min/1.73m\\ [...] and management of c hronic kidney failure. [facility] WITH AUTO [id number] 04:14:00 Test Item Value Reference Range Interpretation [...] code = 1.9 % 0.0-0.4 H IG%) [facility] 04:40:00 Test Item Value Reference Range Interpretation [...] ( 4 - SerumAlbumin)] EGFR if >60 Moroccan (test code mL/min/1.73m\\ [...] and management of c hronic kidney failure. [facility] WITH AUTO [id number] 04:09:00 Test Item Value Reference Range Interpretation [...] code = 2.4 % 0.0-0.4 H IG%) [facility] [id number] 06:50:00To start 15mins after 1st cultureSpecimen: BloodCollected: 01/18/2017 04:05 Status: Final Last Updated: 01/23/2017 06:49 (1) To start 15mins after 1st culture Culture Result (Final) (Final) [facility] [id number] 06:50:00Specimen: BloodCollected: 01/18/2017 03:55 Status: Final Last Updated: 01/23/2017 06:49 Culture Result (Final) (Final) [facility] [id number] 04:31:00 Test Item Value Reference Range Interpretation [...] = 3.4 % 0.0-0.4 H IG%) [facility]-[id number] 04:19:00 Test Item Value Reference Range Interpretation [...] ( 4 - SerumAlbumin)] EGFR if >60 Moroccan (test code mL/min/1.73m\\ [...] management of c hronic kidney failure. [facility] [place]-[facility] WITH AUTO [id number] 04:57:00 Test Item Value Reference Range Interpretation [...] 4.0 % 0.0-0.4 H IG%) CBC AUTO [facility]-[id number] 04:35:00 Test Item Value Reference Range Interpretation [...] ( 4 - SerumAlbumin)] EGFR if >60 Moroccan (test code mL/min/1.73m\\ [...] management of c hronic kidney failure. [facility] WITH AUTO [id number] 05:01:00 Test Item Value Reference Range Interpretation [...] 4.5 % 0.0-0.4 H IG%) CBC AUTO [facility]-[id number] 04:56:00 Test Item Value Reference Range Interpretation [...] ( 4 - SerumAlbumin)] EGFR if >60 Moroccan (test code mL/min/1.73m\\ [...] management of c hronic kidney failure. [facility] [place]-fkinLEX[facility] WITH AUTO [id number] 05:57:00 Test Item Value Reference Range Interpretation [...] = 4.8 % 0.0-0.4 H IG%) [facility]yJoejik-[id number] 05:41:00 Test Item Value Reference Range Interpretation Comments Magnesium (test code = MG) 2.0 mg/dl 1.6-2.[address] [facility]-[id number] 05:41:00 Test Item Value Reference Range Interpretation [...] ( 4 - SerumAlbumin)] EGFR if >60 Moroccan (test code mL/min/1.73m\\ [...] management of c hronic kidney failure. [facility]-LufkinLACTIC ACID [id number] 06:43:00 Test Item Value Reference Range Interpretation Comments LACTATE (test code = LAC) 0.9 mmol/l 0.7-2.[address] [facility] [place]-LufkinGLYCOSALATED [id number] 05:41:00 Test Item Value Reference Range Interpretation Comments Hemoglobin A1C (test 9.06 % 4.3-6.0 A code = GLYCO) Mean Plasma Glucose 245 mg/dl 90-180 WHEN BONIFACIO T RESULTS FOR (test code = MPG) A1C EXCEED 14.0, THE LINEAR LIMIT OF THE INSTRUMENT, THE CALCULATED RESU LT FOR THE MEAN GLUCOS E IS NOT RELIABLE. [facility]-LufkinCORONARY [id number] 05:09:00 Test Item Value Reference Range Interpretation [...] code = 37 mg/dl 30-60 [address]) [facility] Cud[facility]yBfejrx-[id number] 04:51:00 Test Item Value Reference Range Interpretation Comments Magnesium (test code = MG) 2.1 mg/dl 1.6-2.[address] [facility]-[id number] 04:51:00 Test Item Value Reference Range Interpretation Comments CPK (test code = CPK) 93 U/L 30-[address] [facility] CenterkinLIPASE, [id number] 04:43:00 Test Item Value Reference Range Interpretation Comments Lipase (test code = LIPA) 116 U/L 8-[address] [facility]-[id number] 04:43:00 Test Item Value Reference Range Interpretation [...] ( 4 - SerumAlbumin)] EGFR if >60 Moroccan (test code mL/min/1.73m\\ [...] management of c hronic kidney failure. [facility] (HEMOGRAM ONLY)2017-01-18 04:37:00 Test Item [...] PLATELET CLUMPI NG. THIS IS A HEMOGRAM ONLY[facility] [place] Notes Date/Time Note Provider Source 2020-02-09 11:01:00-00:00 [id number] [facility] [address] [place] [address] PATIENT NAME: ROBBIN OSORIO ADMIT DATE: 02/08/20 ACCOUNT NO: [id number] ROOM NO: AGE: 55 REPORT TYPE: OPERATIVE REPORT SEX: M ADMITTING PHYSICIAN: ATTENDING PHYSICIAN:Neel Garcia MD OPERATION DATE: 02/08/2020 PREOPERATIVE DIAGNOSIS: PREOPERATIVE DIAGNOSIS: PROCEDURES PERFORMED: Selective coronary angiogr am. SURGEON: MOLDING SANDER: ANESTHESIA: ACCESS: The right femoral artery closed [...] accessed utilizing micropuncture kit and then placed 6-Mongolian [place] sheath and then we took 6-Mongolian EBU gu lexie into the aortic root [...] and closed t he access with a 6-Mongolian Angio-Seal without complications. CONCLUSION: Moderate proximal LAD disease. Negat liliana by iFR value of 1.0. RECOMMENDATIONS: 1. Medical management of coronary artery disease . 2. Medical management of congestive heart failur e. 3. Discharge home once discharge criteria are me t. PATIENT NAME: ROBBIN OSORIO 2 Dictated By: Neel Garcia MD WT: OP:PANNAMARIA/NERI/NTS Conf#: [id number]/DID#: [id number] Authenticated by Neel Garcia MD On 02/10/2020 08:25:20 AM Electronically Signed by Neel Garcia MD on at 0825 PATIENT NAME: ROBBIN OSORIO 2 2017-04-29 11:15:00-00:00 EXAM: CT MYELOGRAM LUMBAR SPINE [facility] EXAM: CT MYELOGRAM THORACIC SPINE [place] EXAM: FLUOROSCOPY-GUIDED LUMBAR PUNCTURE FOR CT MYELOGRAM [...] the lumbar thecal sac. MYELOGRAMS: During the injec tion of contrast it was noted that the lumbar thecal sac was diffusely narrowed. Much of the injected contrast the lumbar spine preferentially flowed into the thoracic spinal canal. The lumbar spinal ca nal was narrowed and a smaller amount of contrast was entering the mid and lower lumbar spinal canal. The patient was therefore kept in a lateral decubitus position for 30 mi nutes prior to CT scanning for better distributi on of the contrast density. FLUOROSCOPIC TIME: 0.[address] Fraser, was present for the procedure. TECHNIQUE: Volumetric acquis ition of the thoracic and lumbar spine, from the level of T 1 through the sacrum. The 1st image set showed adequate opacification of the lumbar and lower thoracic spine. Laly yed images after one hour sh owed excellent opacification of the remainder of the [...] of the L1 and L2 vertebral bodies wi th large anterior osteophyte s most likely due to old trauma. Mild [...] L5-S1: Normal IMPRESSION: 1. Acquired on congenital sp inal stenosis from T9 through L4, due spondylotic disc osteophyte complexes, greatest from T12 to L2. 2. Cord and conus indentation by bone spurs from T9 down to L1. 3. Crowding of the cauda equ nancy nerve roots by posterior endplate osteophytes from L1 to L2-L3, and by the combination of bulging discs and the congenital stenosis of the spinal canal at L3-L4 and L4-L5. 4. Constriction of the theca l sac is crowding of cauda equina nerve roots from L4 to L5. 5. Foraminal stenoses at T11 -T12, T12-L1 and L1-L2 with encroachment upon the exiting nerve roots. 2017-04-29 11:15:00-00:00 EXAM: CT MYELOGRAM LUMBAR SPINE [facility] EXAM: CT MYELOGRAM THORACIC SPINE [place] EXAM: FLUOROSCOPY-GUIDED LUMBAR PUNCTURE FOR CT MYELOGRAM [...] the lumbar thecal sac. MYELOGRAMS: During the injec tion of contrast it was noted that the lumbar thecal sac was diffusely narrowed. Much of the injected contrast the lumbar spine preferentially flowed into the thoracic spinal canal. The lumbar spinal ca nal was narrowed and a smaller amount of contrast was entering the mid and lower lumbar spinal canal. The patient was therefore kept in a lateral decubitus position for 30 mi nutes prior to CT scanning for better distributi on of the contrast density. FLUOROSCOPIC TIME: 0.[address] Fraser, was present for the procedure. TECHNIQUE: Volumetric acquis ition of the thoracic and lumbar spine, from the level of T 1 through the sacrum. The 1st image set showed adequate opacification of the lumbar and lower thoracic spine. Laly yed images after one hour sh owed excellent opacification of the remainder of the [...] of the L1 and L2 vertebral bodies wi th large anterior osteophyte s most likely due to old trauma. Mild [...] L5-S1: Normal IMPRESSION: 1. Acquired on congenital sp inal stenosis from T9 through L4, due spondylotic disc osteophyte complexes, greatest from T12 to L2. 2. Cord and conus indentation by bone spurs from T9 down to L1. 3. Crowding of the cauda equ nancy nerve roots by posterior endplate osteophytes from L1 to L2-L3, and by the combination of bulging discs and the congenital stenosis of the spinal canal at L3-L4 and L4-L5. 4. Constriction of the theca l sac is crowding of cauda equina nerve roots from L4 to L5. 5. Foraminal stenoses at T11 -T12, T12-L1 and L1-L2 with encroachment upon the exiting nerve roots. 2017-04-29 09:20:00-00:00 EXAM: CT MYELOGRAM LUMBAR SPINE [facility] EXAM: CT MYELOGRAM [facility] [place] EXAM: [...] the lumbar thecal sac. MYELOGRAMS: During the injec tion of contrast it was noted that the lumbar thecal sac was diffusely narrowed. Much of the injected contrast the lumbar spine preferentially flowed into the thoracic spinal canal. The lumbar spinal ca nal was narrowed and a smaller amount of contrast was entering the mid and lower lumbar spinal canal. The patient was therefore kept in a lateral decubitus position for 30 mi nutes prior to CT scanning for better distributi on of the contrast density. FLUOROSCOPIC TIME: 0.[address] Fraser, was present for the procedure. TECHNIQUE: Volumetric acquis ition of the thoracic and lumbar spine, from the level of T 1 through the sacrum. The 1st image set showed adequate opacification of the lumbar and lower thoracic spine. Laly yed images after one hour sh owed excellent opacification of the remainder of the [...] of the L1 and L2 vertebral bodies wi th large anterior osteophyte s most likely due to old trauma. Mild [...] L5-S1: Normal IMPRESSION: 1. Acquired on congenital sp inal stenosis from T9 through L4, due spondylotic disc osteophyte complexes, greatest from T12 to L2. 2. Cord and conus indentation by bone spurs from T9 down to L1. 3. Crowding of the cauda equ nancy nerve roots by posterior endplate osteophytes from L1 to L2-L3, and by the combination of bulging discs and the congenital stenosis of the spinal canal at L3-L4 and L4-L5. 4. Constriction of the theca l sac is crowding of cauda equina nerve roots from L4 to L5. 5. Foraminal stenoses at T11 -T12, T12-L1 and L1-L2 with encroachment upon the exiting nerve roots. 2017-04-29 09:20:00-00:00 EXAM: CT MYELOGRAM LUMBAR SPINE [facility] EXAM: CT MYELOGRAM THORACIC SPINE [place] EXAM: FLUOROSCOPY-GUIDED LUMBAR PUNCTURE FOR CT MYELOGRAM [...] the lumbar thecal sac. MYELOGRAMS: During the injec tion of contrast it was noted that the lumbar thecal sac was diffusely narrowed. Much of the injected contrast the lumbar spine preferentially flowed into the thoracic spinal canal. The lumbar spinal ca nal was narrowed and a smaller amount of contrast was entering the mid and lower lumbar spinal canal. The patient was therefore kept in a lateral decubitus position for 30 mi nutes prior to CT scanning for better distributi on of the contrast density. FLUOROSCOPIC TIME: 0.[address] Fraser, was present for the procedure. TECHNIQUE: Volumetric acquis ition of the thoracic and lumbar spine, from the level of T 1 through the sacrum. The 1st image set showed adequate opacification of the lumbar and lower thoracic spine. Laly yed images after one hour sh owed excellent opacification of the remainder of the [...] of the L1 and L2 vertebral bodies wi th large anterior osteophyte s most likely due to old trauma. Mild [...] L5-S1: Normal IMPRESSION: 1. Acquired on congenital sp inal stenosis from T9 through L4, due spondylotic disc osteophyte complexes, greatest from T12 to L2. 2. Cord and conus indentation by bone spurs from T9 down to L1. 3. Crowding of the cauda equ nancy nerve roots by posterior endplate osteophytes from L1 to L2-L3, and by the combination of bulging discs and the congenital stenosis of the spinal canal at L3-L4 and L4-L5. 4. Constriction of the theca l sac is crowding of cauda equina nerve roots from L4 to L5. 5. Foraminal stenoses at T11 -T12, T12-L1 and L1-L2 with encroachment upon the exiting nerve roots. 2017-03-19 11:50:00-00:00 EXAM: XR ENTIRE SPINE 2 VIEWS [facility] DATE: 03/19/2017 10:49 AM CDT Ce nter INDICATION: - STANDING 36' AP/LAT FILMS FROM SKU LL TO FEMORAL HEADS COMPARISON: None TECHNIQUE: AP and lateral radiographs of the lum bar spine FINDINGS: Alignment and vert ebral body heights are intact throughout the entire spine. Spondylitic changes with degenerative disc disease noted in the upper lumbar spine. Facet arthropathy throughout th e lumbar spine. No osseous lesions. No soft tiss ue abnormality is identified. IMPRESSION: Mild spondylotic changes in the thor acolumbar spine.
[2022-11-27 17:57] LABS: Absolute Lymphocytes (CBC) 0.7 K/uL (0.7-4.9); Hematocrit 35.2 % (39.6-49.0); Lymphocytes % 6.1 % (15.3-44.8); MCV 81.9 fL (80-100); MPV 7.7 fL (7.6-11.3)
[2022-11-27 18:04] LABS: Protime INR 1.05
[2022-11-27] MEDS ORDERED: IBUPROFEN 400 MG TAB ONE (18:07)
[2022-11-27] MEDS ORDERED: NA CHLORIDE 0.9% 250 ML ONE (18:07)
[2022-11-27] MEDS ORDERED: VANCOMYCIN 1 GM/VIAL ONE (18:07)
[2022-11-27] MEDS ORDERED: NA CHLORIDE 0.9% 100 ML ONE (18:07)
[2022-11-27] MEDS ORDERED: PIPERACIL/TAZO 3.375 GM VIAL IV ONE (18:08)
[2022-11-27 18:19] LABS: Albumin 3.4 g/dL (3.4-5.0); Bilirubin Total 0.5 mg/dL (0.2-1.0); Potassium 3.8 mEq/L (3.5-5.1); Protein, Total 7.6 g/dL (6.4-8.2)
--- NOTE | 2022-11-27 18:30 | EDPHYS ---
Physician Documentation [facility] Name: Nicola Harvey Age: 57 yrs Sex: Male : 1965 Arrival Date: 11/27/2022 Time: 17:14 Bed 3 Private MD: ED Physician Asael Bernal HPI: 11/27 17:56 This 57 yrs old Male presents to ER via Ambulatory with complaints of Fever, kb Leg Swelling. 17:56 The patient presents with cellulitis of the left leg. Description: erythematous, hot, kb swollen. Onset: The symptoms/episode began/occurred today. Possible cause(s): unknown. Associated signs and symptoms: Pertinent positives: erythema, fever, swelling. Modifying factors: the symptoms are alleviated by nothing, the symptoms are aggravated by pressure, squeezing the lesion and expressing the contents, touching. Severity of symptoms: At their worst the symptoms were moderate, in the emergency department the symptoms are unchanged. The patient has not experienced similar symptoms in the past. The patient has not recently seen a physician. Historical: - Allergies: 17:20 Invokana; ld1 17:20 Jardiance; ld1 - PMHx: 17:20 CHF; Hypertension; Obesity; Diabetes - IDDM; chronic back pain; Hyperlipidemia; ld1 - PSHx: 17:20 addenoidectomy; Cholecystectomy; rhinoplasty; ld1 - Immunization history:: Adult Immunizations up to date. - Social history:: Smoking status: Patient denies any tobacco usage or history of. Patient/guardian denies using alcohol. ROS: 17:55 Respiratory: Negative for shortness of breath, cough, wheezing, and pleuritic chest kb pain. 17:55 Constitutional: Positive for fever. 17:55 Skin: Positive for erythema, swelling, of the left leg. 17:55 All other systems are negative. Exam: 17:55 Constitutional: This is a well developed, well nourished patient who is awake, alert, kb and in no acute distress. Head/Face: Normocephalic, atraumatic. ENT: Moist Mucous membranes Cardiovascular: Regular rate and rhythm with a normal S1 and S2. No gallops, murmurs, or rubs. No pulse deficits. Respiratory: Respirations even and unlabored. No increased work of breathing. Talking in full sentences MS/ Extremity: Pulses equal, no cyanosis. Neurovascular intact. Full, normal range of motion. Neuro: Awake and alert, GCS 15, oriented to person, place, time, and situation. Moves all extremities. Normal gait. 17:55 Skin: cellulitis, that is moderate, on the left leg. Vital Signs: 17:19 Pulse 126; Resp 20; Temp 102.9; Pulse Ox 95% on R/A; Weight 149.69 kg; Height 5 ft. 9 ld1 in. ; Pain 8/10; 17:21 BP 175 / 77; ld1 18:20 BP 151 / 88; Pulse 126; Resp 19; Temp 100.8(O); Pulse Ox 96% ; iw 20:34 BP 105 / 87; Pulse 96; Resp 17; Temp 100(O); Pulse Ox 100% on R/A; rv 17:19 Body Mass Index 48.73 (149.69 kg, 175.26 cm) ld1 17:19 Pain Scale: Adult ld1 [place] Coma Score: 20:36 Eye Response: spontaneous(4). Motor Response: obeys commands(6). Verbal Response: rv oriented(5). Total: 15. MDM: 17:16 Patient medically screened. kb 17:56 Data reviewed: vital signs, nurses notes. kb 17:57 Differential diagnosis: abscess, allergic reaction, cellulitis, insect bite. kb Consideration of Admission/Observation Patient was admitted/placed on observation. Counseling: I had a detailed discussion with the patient and/or guardian regarding: the historical points, exam findings, and any diagnostic results supporting the discharge/admit diagnosis, lab results, the need for further work-up and treatment in the hospital. 18:24 Management of patient was discussed with the following: Primary Care Provider: Dr Juan Luis golden accepts pt for admission. 11/27 17:21 Order name: Blood Culture Adult (2) 11/27 17:21 Order name: CBC with Diff; Complete Time: 18:07 kb 11/27 17:21 Order name: CMP; Complete Time: 18:21 kb 11/27 17:21 Order name: Lactate w/ 2H reflex if indic.; Complete Time: 18:15 kb 11/27 17:21 Order name: Protime (+inr); Complete Time: 18:07 kb 11/27 17:21 Order name: Ptt, Activated; Complete Time: 18:07 kb 11/27 17:40 Order name: Glucose, Ancillary Testing; Complete Time: 17:40 EDMS 11/27 17:21 Order name: EKG; Complete Time: 17:22 kb 11/27 17:21 Order name: Accucheck; Complete Time: 17:56 kb 11/27 17:21 Order name: Cardiac monitoring; Complete Time: 18:46 kb 11/27 17:21 Order name: EKG - Nurse/Tech; Complete Time: 18:46 kb 11/27 17:21 Order name: IV Saline Lock - Large Bore; Complete Time: 17:56 kb 11/27 17:21 Order name: Labs collected and sent; Complete Time: 17:56 kb 11/27 17:21 Order name: O2 Per Protocol; Complete Time: 17:56 kb 11/27 17:21 Order name: O2 Sat Monitoring; Complete Time: 17:56 kb 11/27 17:21 Order name: Vital Signs; Complete Time: 17:56 kb Administered Medications: 17:44 Not Given (Patient Refused): Acetaminophen PO 1000 mg PO once kb 18:00 Drug: Piperacillin-Tazobactam IVPB 3.375 grams Route: IVPB; Infused Over: 60 mins; iw Site: right antecubital; 20:36 Follow up: Response: No adverse reaction; IV Status: Completed infusion; IV Intake: rv 100ml 18:14 Drug: Ibuprofen PO 800 mg Route: PO; iw 20:36 Follow up: Response: No adverse reaction; Temperature is decreased rv 18:45 Drug: vancoMYCIN IVPB 1 grams Route: IVPB; Infused Over: 2 hrs; Site: right antecubital;iw 20:56 Follow up: IV Status: Completed infusion; IV Intake: 250ml rv Disposition: 11/28 17:22 Co-signature as Attending Physician, Asael Bernal MD I reviewed the patient's care rn provided by the Advanced Practice Provider and agree with the diagnosis and treatment plan. Disposition Summary: 11/27/22 18:29 Hospitalization Ordered Hospitalization Status: Inpatient Admission kb Provider: Lat[facility] Condition: Stable kb Problem: new kb Symptoms: are unchanged kb Bed/Room Type: Standard Room Assignment: 222(11/27/22 19:46) Diagnosis - Cellulitis of left lower limb kb - Cellulitis of right lower limb kb Forms: - Medication Reconciliation Form kb - SBAR form kb Signatures: Dispatcher [employer] Osiris Ann, SAMAN FREGOSO-Janay Pires RN RN Asael Bernal MD MD rn Garcia, Cindy, RN RN cg Sims, Lauren, RN RN ld1 Norman Goodman RN rv Corrections: (The following items were deleted from the chart) 11/27 19:46 18:29 kb
--- NOTE | 2022-11-27 18:30 | ER ---
Nurse's Notes [facility] Name: Nicola Harvey Age: 57 yrs Sex: Male : 1965 Arrival Date: 11/27/2022 Time: 17:14 Bed 3 Private MD: Diagnosis: Cellulitis of left lower limb;Cellulitis of right lower limb Presentation: 11/27 17:19 Chief complaint: Patient states: Pain to left leg - pt reports having history of ld1 infection to left leg. Coronavirus screen: At this time, the client does not indicate any symptoms associated with coronavirus-19. Ebola Screen: No symptoms or risks identified at this time. Initial Sepsis Screen: Does the patient meet any 2 criteria? Temp <36.0*C (96.8*F)) or > 38.3*C (100.9*F). HR > 90 bpm. Does the patient have a suspected source of infection? Yes: Skin breakdown/wound. Risk Assessment: Do you want to hurt yourself or someone else? Patient reports no desire to harm self or others. Onset of symptoms was November 27, 2022. 17:19 Method Of Arrival: Ambulatory ld1 17:19 Acuity: ANGE 3 ld1 Triage Assessment: 17:20 General: Appears in no apparent distress. uncomfortable, Behavior is calm, cooperative, ld1 appropriate for age. Pain: Complains of pain in left leg Pain does not radiate. Pain currently is 8 out of 10 on a pain scale. Quality of pain is described as throbbing. EENT: No signs and/or symptoms were reported regarding the EENT system. Neuro: Level of Consciousness is awake, alert, obeys commands, Oriented to person, place, time, situation. Cardiovascular: Capillary refill < 3 seconds Patient's skin is warm and dry. Respiratory: Airway is patent Respiratory effort is even, unlabored. GI: Abdomen is round non-distended. : No signs and/or symptoms were reported regarding the genitourinary system. Derm: No signs and/or symptoms reported regarding the dermatologic system. Musculoskeletal: No signs and/or symptoms reported regarding the musculoskeletal system. Historical: - Allergies: 17:20 Invokana; ld1 17:20 Jardiance; ld1 - PMHx: 17:20 CHF; Hypertension; Obesity; Diabetes - IDDM; chronic back pain; Hyperlipidemia; ld1 - PSHx: 17:20 addenoidectomy; Cholecystectomy; rhinoplasty; ld1 - Immunization history:: Adult Immunizations up to date. - Social history:: Smoking status: Patient denies any tobacco usage or history of. Patient/guardian denies using alcohol. Screenin:02 [facility] ED Fall Risk Assessment (Adult) Score/Fall Risk Level 0 - 2 = Low Risk. Abuse iw screen: Denies threats or abuse. Has been threatened or abused. Nutritional screening: No deficits noted. Tuberculosis screening: No symptoms or risk factors identified. Assessment: 18:01 General: Appears in no apparent distress. Behavior is calm, cooperative. Pain: iw Complains of pain in left leg. Neuro: Level of Consciousness is awake, alert, obeys commands, Oriented to person, place, time, situation, Moves all extremities. Full function. Cardiovascular: Patient's skin is warm and dry. Respiratory: Airway is patent Respiratory effort is even, unlabored, Respiratory pattern is regular. GI: No signs and/or symptoms were reported involving the gastrointestinal system. Abdomen is obese. Derm: swelling, hot to touch on LLE grant to ankle. Musculoskeletal: Range of motion: intact in all extremities. 18:45 Reassessment: Patient appears in no apparent distress at this time. Patient and/or iw family updated on plan of care and expected duration. Pain level reassessed. Patient is alert, oriented x 3, equal unlabored respirations, skin warm/dry/pink. Vital Signs: 17:19 Pulse 126; Resp 20; Temp 102.9; Pulse Ox 95% on R/A; Weight 149.69 kg; Height 5 ft. 9 ld1 in. ; Pain 8/10; 17:21 BP 175 / 77; ld1 18:20 BP 151 / 88; Pulse 126; Resp 19; Temp 100.8(O); Pulse Ox 96% ; iw 20:34 BP 105 / 87; Pulse 96; Resp 17; Temp 100(O); Pulse Ox 100% on R/A; rv 17:19 Body Mass Index 48.73 (149.69 kg, 175.26 cm) ld1 17:19 Pain Scale: Adult ld1 [place] Coma Score: 20:36 Eye Response: spontaneous(4). Motor Response: obeys commands(6). Verbal Response: rv oriented(5). Total: 15. ED Course: 17:15 Patient arrived in ED. rg4 17:16 [facility]ir[facility]C [facility]. kb 17:16 Asael Bernal MD is Attending Physician. kb 17:20 Triage completed. ld1 17:20 Arm band placed on right wrist. ld1 17:41 Initial lab(s) drawn, by me, sent to lab. First set of blood cultures drawn. Inserted iw saline lock: 20 gauge in right in left Blood collected. 17:55 Janay Watts, RN is Primary Nurse. iw 18:14 Patient has correct armband on for positive identification. iw 18:29 Latoya Mcknight MD is Hospitalizing Provider. kb 20:34 No provider procedures requiring assistance completed. Patient admitted, IV remains in rv place. Administered Medications: 17:44 Not Given (Patient Refused): Acetaminophen PO 1000 mg PO once kb 18:00 Drug: Piperacillin-Tazobactam IVPB 3.375 grams Route: IVPB; Infused Over: 60 mins; iw Site: right antecubital; 20:36 Follow up: Response: No adverse reaction; IV Status: Completed infusion; IV Intake: rv 100ml 18:14 Drug: Ibuprofen PO 800 mg Route: PO; iw 20:36 Follow up: Response: No adverse reaction; Temperature is decreased rv 18:45 Drug: vancoMYCIN IVPB 1 grams Route: IVPB; Infused Over: 2 hrs; Site: right antecubital;iw 20:56 Follow up: IV Status: Completed infusion; IV Intake: 250ml rv Medication: 18:02 VIS not applicable for this client. iw Intake: 20:36 IV: 100ml; Total: 100ml. rv 20:56 IV: 250ml; Total: 350ml. rv Outcome: 18:29 Decision to Hospitalize by Provider. kb 20:34 Admitted to Med/surg accompanied by tech, via wheelchair, room 222, with chart, Report rv called to MATTHIAS HECTOR 20:34 Condition: stable 20:34 Instructed on the need for admit. 20:59 Patient left the ED. rv Signatures: Osiris Quiroz FNP-C FNP-Ckb Janay Watts, RN RN iw Tasha Monahan rg4 Norman Goodman RN RN rv Gina Akins RN RN ld1 Corrections: (The following items were deleted from the chart) 20:36 20:34 BP 105 / 87; Pulse 96bpm; Resp 17bpm; Pulse Ox 100% RA; Temp 98F; rv rv
[2022-11-27] MEDS ORDERED: ACETAMINOPHEN 500 MG TAB PO PRN (20:48)
[2022-11-27] MEDS ORDERED: D50W 25 GM/50 ML SYRINGE IV PRN (20:48)
[2022-11-27] MEDS ORDERED: VANCOMYCIN 1 GM in NA CHLORIDE 0.9% 250 ML IVPB SCH (20:48)
[2022-11-27] MEDS ORDERED: GLUCAGON 1 MG/VIAL IM PRN (20:48)
[2022-11-27] MEDS: INSULIN -REGULAR HUMAN 50 UNIT/0.5 ML ML SQ SCH (21:00)
[2022-11-27 21:19] VITALS: BMI 49.0
[2022-11-27] MEDS ORDERED: VANCOMYCIN 2 GM in NA CHLORIDE 0.9% 500 ML IVPB SCH (22:00)
[2022-11-27] MEDS ORDERED: VANCOMYCIN 1 GM in NA CHLORIDE 0.9% 250 ML IVPB ONE (23:00)
[2022-11-28] MEDS: PIPER TAZO 3.375 GM in NA CHLORIDE 0.9% 100 ML IV SCH ×3 (00:37→21:13)
[2022-11-28 03:09] LABS: Absolute Lymphocytes (CBC) 0.5 K/uL (0.7-4.9); Hematocrit 34.5 % (39.6-49.0); Lymphocytes % 4.7 % (15.3-44.8); MCV 82.6 fL (80-100); MPV 7.5 fL (7.6-11.3); RBC Red Blood Cell Count 4.18 M/uL (4.33-5.43)
[2022-11-28] MEDS: IBUPROFEN 400 MG TAB PO PRN ×2 (06:05→21:12)
[2022-11-28] MEDS: INSULIN -REGULAR HUMAN 50 UNIT/0.5 ML ML SQ SCH ×4 (07:30→21:00)
[2022-11-28] MEDS: METFORMIN HCL 500 MG TAB PO SCH ×2 (08:47→16:25)
[2022-11-28] MEDS: FUROSEMIDE 40 MG TABLET PO SCH (08:48)
[2022-11-28] MEDS: AMLODIPINE 5 MG TAB PO SCH ×2 (08:48→21:12)
[2022-11-28] MEDS: ENOXAPARIN 40 MG/0.4 ML SQ SCH (08:48)
[2022-11-28] MEDS: ASPIRIN 81 MG CHEWABLE TABLET PO SCH (08:48)
[2022-11-28] MEDS: lisinopriL 20 MG TAB PO SCH (08:48)
[2022-11-28] MEDS: METOPROLOL TAR 50 MG TAB PO SCH ×2 (08:48→21:12)
--- NOTE | 2022-11-28 12:14 | EKG ---
Test Date: 2022-11-27 Test Time: 18:36:58 Rounding Machine Operator: ELIZABETH MEASUREMENT RESULTS: Intervals: Rate: 111 SC: 144 QRSD: 108 QT: 314 QTc: 427 Allison: P: 49 SC: 144 QRS: 84 T: 55 INTERPRETIVE STATEMENTS: Sinus tachycardia with premature supraventricular complexes Otherwise normal ECG Compared to ECG 09/19/2022 19:18:11 Atrial premature complex(es) now present Sinus rhythm no longer present Electronically Signed On 11-28-22 12:13:08 CDT by Neel Garcia
[2022-11-28] MEDS: VANCOMYCIN 2 GM in NA CHLORIDE 0.9% 500 ML IVPB SCH (16:26)
--- NOTE | 2022-11-28 22:55 | HP ---
Date of Admission: 11/28/2022 Chief Complaint: Leg pain and fever. History Of Present Illness: This is a 57-year-old pleasant male patient who has history of recurrent cellulitis of leg, came into emergency room with pain in both lower extremities, left leg worse than right leg associated with fever and chills and all these symptoms started yesterday. He came into emergency room. After he was evaluated, he was admitted to the hospital with cellulitis of bilateral lower extremities. Patient denies any nausea, vomiting, diarrhea. No shortness of breath. Allergies: NO KNOWN ALLERGIES. Medications: List reviewed. Review of Systems: Constitutional: As mentioned above. Musculoskeletal: As mentioned above. All other systems reviewed and negative. Social History: Negative for smoking and alcohol use. Family History: Significant for colon cancer and prostate cancer. Past Surgical History: Significant for sinus surgery. Past Medical History: Significant for hypertension, obstructive sleep apnea, cervical spinal stenosis, type 2 diabetes mellitus, lumbar radiculopathy, hyperlipidemia, recurrent cellulitis of lower extremities, and lymphedema of legs. Also past medical history significant for coronary artery disease. Physical Examination: Vital Signs: Height 5 feet 9 inches, weight 332 pounds. Initial temperature was 97.9, but subsequently last night, temperature went up to 102.9. Initial pulse 109, respiratory rate 18, blood pressure 142/71, oxygen saturation 96% on room air. General: Awake, alert, oriented, not in distress. HEENT: Head atraumatic, normocephalic. Conjunctivae nonerythematous. Sclerae white. Mouth, no thrush or edema noted. Ears/Nose, no mass, lesion, discharge noted. Neck: Supple. No JVD, lymph nodes, bruit, thyromegaly noted. Lungs: Bilateral good equal air entry. Clear to auscultation. No rhonchi. No rales. Heart: Normal heart sounds, no murmur or gallop. Abdomen: Soft, bowel sounds normal. No guarding, rigidity, tenderness, mass, hepatosplenomegaly, distention, or bruit noted. Extremities: Bilateral trace leg edema. Patient has pink, warm skin discoloration of both lower extremities involving almost entire left lower extremity from knee all the way down to his foot and lower 1/4 of right lower extremity. No open wound. Skin: No rash, ulcer, cellulitis. Lymphatics: No lymph node enlargement in neck, supraclavicular, infraclavicular region. Neuro: No focal neurological deficit. Chest: Unremarkable. External Genitalia: Deferred. Rectal: Deferred. Laboratory Data: Yesterday, white count 11.5, hemoglobin 11.2, platelets 221. This morning, white count 10.3, hemoglobin 11.1, platelets 185. Yesterday, sodium 137, potassium 3.8, chloride 106, bicarb 28, BUN 19, creatinine 1.12, glucose 139. Liver function tests unremarkable. This morning, sodium 137, potassium 4, chloride 105, bicarb 29, BUN 17, creatinine 1.05, glucose 170. Impression: 1. Cellulitis, bilateral lower extremity. 2. Hypertension. 3. Hyperlipidemia. 4. Type 2 diabetes mellitus. 5. Obstructive sleep apnea. 6. Lymphedema, legs. 7. Coronary artery disease. 8. Morbid obesity. Plan: We will go ahead and admit the patient to hospital for further evaluation and management of this problem. Patient is appropriate for inpatient and is expected to spend 2 midnights in hospital. We will continue Zosyn and vancomycin, which were started for his cellulitis. Blood culture was done. We will follow up on the results. DVT prophylaxis will be given using Lovenox. Continue antihypertensive medication as per order. We will continue his diabetes management with sliding scale insulin per order. For hyperlipidemia, continue his statin therapy per order. Details and plan of treatment discussed with the patient and I will see him tomorrow for followup. WALT/MODL Voice ID: [id number] ANNIE
[2022-11-29] MEDS: PIPER TAZO 3.375 GM in NA CHLORIDE 0.9% 100 ML IV SCH ×2 (02:03→08:24)
[2022-11-29] MEDS: INSULIN -REGULAR HUMAN 50 UNIT/0.5 ML ML SQ SCH ×2 (07:30→11:30)
[2022-11-29] MEDS: FUROSEMIDE 40 MG TABLET PO SCH (08:20)
[2022-11-29] MEDS: lisinopriL 20 MG TAB PO SCH (08:20)
[2022-11-29] MEDS: METFORMIN HCL 500 MG TAB PO SCH (08:21)
[2022-11-29] MEDS: AMLODIPINE 5 MG TAB PO SCH (08:21)
[2022-11-29] MEDS: ENOXAPARIN 40 MG/0.4 ML SQ SCH (08:21)
[2022-11-29] MEDS: METOPROLOL TAR 50 MG TAB PO SCH (08:21)
[2022-11-29] MEDS: ASPIRIN 81 MG CHEWABLE TABLET PO SCH (08:24)
[2022-11-29 09:25] VITALS: O2SAT 97
[2022-11-29 12:04] VITALS: BP 128/65; TEMP 98.4
[2022-11-29] MEDS: VANCOMYCIN 2 GM in NA CHLORIDE 0.9% 500 ML IVPB SCH (12:36)
--- NOTE | 2022-11-30 01:36 | DS ---
Date of Discharge: 11/29/2022 Disposition: Discharged to go home. Physical Examination: HEENT: Unremarkable. Lungs: Clear to auscultation. Heart: Sounds normal. Abdomen: Soft, bowel sounds normal. No guarding, rigidity, tenderness, or distention. Extremities: No leg edema. Skin: Redness and warmness from both lower extremity has resolved. Discharge Medications And Instructions: 1.Continue all prior home medication. 2.Take Augmentin 875 mg 1 tablet 2 times a day with food for 10 days. 3.Followup at my office next week on which is 12/05/2022. 4.May return to work on Friday, which is 12/02/2022. Hospital Course: This is a 57-year-old pleasant male patient admitted to the hospital after he came into emergency room with complaining of bilateral leg pain, fever, and chills. Please see dictated H and P for more information. The patient was evaluated in the emergency room and was admitted to the hospital with bilateral leg cellulitis. He was started on IV antibiotic, which was vancomycin and Z osyn. Blood cultures are negative so far, and overall, the patient's condition has improved with thi s antibiotic. This morning when I saw him, he was feeling much better and medically stable for disch arge. Laboratory Data: Upon admission, white count 11.5, hemoglobin 11.2, platelets 221. Yesterday white count 10.3, hemoglobin 11.1, and platelets 185. Upon admission, chemistry shows sodium 137, potassiu m 3.8, chloride 106, bicarb 28, BUN 19, creatinine 1.12, glucose 139. Liver function tests unremarka ble. Yesterday, it was 137, potassium 4, chloride 105, bicarb 29, BUN 17, creatinine 1.05, glucose 1 70. Final Diagnoses: 1.Cellulitis, bilateral lower extremity. 2.Hypertension. 3.Hyperlipidemia. 4.Type 2 diabetes mellitus. 5.Obstructive sleep apnea. 6.Lymphedema, legs. 7.Coronary artery disease. 8.Morbid obesity. WALT/MODL Voice ID: [id number] Report ID: [id number]
== END 2022-11-29 14:23 | disposition home or self-care (01) | DRG 603 ==
LOC: ER 17:14 → ERHOLD 18:30 → 2ND 19:57
PROVIDERS: ADMIT Internal Medicine; ATTEND Internal Medicine
DX: L03.116 Cellulitis of left lower limb (principal); Z68.42 Body mass index [BMI] 45.0-49.9, adult; L03.115 Cellulitis of right lower limb; E11.9 Type 2 diabetes mellitus without complications; I10 Essential (primary) hypertension; E66.01 Morbid (severe) obesity due to excess calories; E78.5 Hyperlipidemia, unspecified; G47.33 Obstructive sleep apnea (adult) (pediatric); I89.0 Lymphedema, not elsewhere classified; I25.10 Atherosclerotic heart disease of native coronary artery without angina pectoris; M54.16 Radiculopathy, lumbar region; M48.02 Spinal stenosis, cervical region; Z88.8 Allergy status to other drugs, medicaments and biological substances; Z90.49 Acquired absence of other specified parts of digestive tract; Z80.0 Family history of malignant neoplasm of digestive organs; Z80.42 Family history of malignant neoplasm of prostate
CPT/HCPCS: 36415; 80048; 80053; 82947; 83605; 85025; 85610; 85730; 87040; 93005; 94760; 96365; 96366; 99285; J1650; J2543; J7040; J7050

== ENCOUNTER 2022-12-24 05:13 | Inpatient (IN) | payer BC ==
--- OUTSIDE RECORDS SUMMARY | 2022-12-24 05:20 | XMS REPORT | Continuity of Care Document ---
:1965 Author Organization [facility] t Address [address] [place] [address] [address] [place] [address] Care Team Providers Name Role Phone Hope Barraza Primary Care Physician [email or web address] Attending Clinician Unavailable Ellen Pantoja Attending Clinician [phone] PAUL SLOAN Attending Clinician Unavailable Nurse, Adc Pob Immunization Attending Clinician Unavailable Paul Sloan DO Attending Clinician JAZMIN SARMIENTO Attending Clinician Unavailable Neel Garcia Attending Clinician Unavailable CHINO HEALY Attending Clinician Unavailable Only, Adc Test Attending Clinician Unavailable Doctor Unassigned, [place] Attending Clinician Unavailable Anupam Atkins MD Attending Clinician MADI FAITH Attending Clinician Unavailable TAMMY BETANCOURT Attending Clinician Unavailable [email or web address]_A Admitting Clinician Unavailable HOPE BARRAZA Admitting Clinician Unavailable MADI FAITH Admitting Clinician Unavailable TAMMY BETANCOURT Admitting Clinician Unavailable Payers Payer Name Policy Type Policy Number Effective Date Expiration Date S ource [place] [id number] 2022 00:00:00 [place] AETNA (POS) [id number] 2021 00:00:00 BC[place] OF [place] - [id number] 2019 00:00:00 OUT OF STATE BLUE CROSS-[place]: [id number] ANTHEM BLUE CROSS (PPO) Problems Condition Condition Condition Status Onset Resolution Last Treating Co mments Source Name Details Category Date Date Treatment Clinician Date Hyperglyce Hyperglyce Problem Active P [facility]ia judy due to judy Due to 09-24 Me dical type 2 Type 2 00:00: diabetes Diabetes 00 mellitus Mellitus Mixed Mixed Problem Active [facility] hyperlipid Hyperlipid 09-14 Me dical emia emia 00:00: 00 Neuropathy Neuropathy Problem Active P rivia 09-14 Medical 00:00: 00 Essential Essential Problem Active Candice via hypertensi Hypertensi 09-14 Me dical on on 00:00: 00 Congestive Congestive Problem Active P [facility] heart Heart 09-14 Medical failure Failure 00:00: 00 Steatosis Steatosis Problem Active [facility] via of liver of Liver 09-14 Medica l 00:00: 00 Type II Type II Problem Active [facility] diabetes Diabetes 09-13 Medica l mellitus Mellitus 00:00: uncontroll Uncontroll 00 ed ed Cellulitis Cellulitis Disease Active U nivers of right of right 1-31 ity of lower lower 00:00: [place] extremity extremity 00 [facility] Branch Cellulitis Cellulitis Disease Active 2017-05 U nivers of right of right 2-31 [place] Morbid Morbid Disease Active 2017-05 Univers obesity obesity 2-31 [place]y of with body with body [place] mass index mass index 00 Me dical of of Branch 40.0-49.9 40.0-49.9 LUMBAR LUMBAR Diagnosis Active 2016-052017-04-29 M emoria STENOSIS STENOSIS -14 09:02:00 l Active 00:00: Mitesh 04/08/2017 00 [facility] M54.16 M54.16 Diagnosis Active 2016-052017-03-19 Me moria Active 0-25 10:29:00 l 03/19/2017 00:00: Gabo thomas [address] Abdominal Abdominal Problem Resolve 2017-12-07 Memoria pain pain d 00:03:51 l (finding) (finding) Herm chacorta Resolved Problem 12/07/2017 [facility] Chest pain Chest Problem Resolve 2017-12-07 Memoria (finding) pain d 00:03:51 l (finding) Mitesh Resolved Problem 12/07/2017 [facility] Chronic Chronic Problem Resolve 2017-12-07 Memoria back pain back pain d 00:03:51 l (disorder) (disorder) He rmann Resolved Problem 12/07/2017 [facility] Diabetes Diabetes Problem Active 2017-12-07 Memoria mellitus mellitus 00:03:51 l (disorder) (disorder) He rmann Active Problem 12/07/2017 [facility] Hyperchole Hyperchol Problem Active 2017-12-07 Memoria sterolemia esterolemi 00:03:51 l (disorder) a Gabo thomas (disorder) Active Problem 12/07/2017 [facility] Hypertensi Hypertens Problem Active 2017-12-07 Memoria ve liliana 00:03:51 l disorder, disorder, Herm chacorta systemic systemic arterial arterial (disorder) (disorder) Active Problem 12/07/2017 [facility] Morbid Morbid Problem Active 2017-12-07 Chuck jack obesity obesity 00:03:51 l (disorder) (disorder) He rmann Active Problem 12/07/2017 [facility] Prolapsed Prolapsed Problem Active 2017-12-07 Memoria lumbar lumbar 00:03:51 l interverte interverte He rmann bral disc bral disc (disorder) (disorder) Active Problem 12/07/2017 [facility] Allergies, Adverse Reactions, Alerts Allergy Allergy Status Severity Reaction(s) Onset Inactive Treating Comm ents Source Name Type Date Date Clinician No Known DA Active U 2020-0 [facility] [place] [facility] [place] Known DA Active U 2020-0 [facility]ie 02-01 [facility] [place] KNOWN Drug Active Univers ALLERGIE Class ity of S [facility] Social History Social Habit Start Date Stop Date Quantity Comments Source Alcohol intake 2018-07-21 2018-07-21 Current University of 00:00:00 00:00:00 non-drinker of [facility] alcohol [place] (finding) Tobacco use and 2018-04-09 2018-04-09 Never used Universit y of exposure 00:00:00 00:00:00 [facility] Sex Ass[birth year] At [birth year] Universit y of 00:00:00 00:00:00 [facility] Smoking Status Start Date Stop Date Source Never Smoker [facility] Social History 2017-04-29 16:58:10 2017-04-29 16:58:10 [facility] Medications Ordered Filled Start Stop Current Ordering Indication Dosage Frequency Signature Comments Components Source Medication Medication Date Date Medication? Clinician (SIG) Name Name insulin 2018-05 Yes [id number] 60U inject 60 Univers regular 0-24 Units ity of human 500 00:00: under the Varinder as unit/mL 00 skin 3 Medical injection (three) Branch times daily before meals. E11. 65 Insulin 2018-0 Yes Each 3 Univers Syringe-Nee 7-03 (three) ity o f dle U-100 1 00:00: times [place] mL 31 gauge 00 daily Medical x /16 Syrg before Branch meals. E11.65 insulin 2018-0 Yes [id number] 1{each} 1 Each 3 Univers U-500 5-28 (three) ity of syringe-nee 00:00: times [place] dle 1/2 mL 00 daily Medical 31 gauge x before Branch " Syrg meals. E11.65 metformin 2018- Yes [id number] 1000mg Take 2 Univers ER 500 mg 5-28 tablets by ity of 24 hr 00:00: mouth 2 [place] tablet 00 (two) Medical times Branch daily with meals. glimepiride 2018- Yes [id number] 4mg Take 1 Univers 4 mg tablet 5-28 tablet by ity of 00:00: mouth 2 [place] 00 (two) Medical times Branch daily with meals. pravastatin 2018- Yes [id number] 20mg Take 1 Univers 20 mg 5-28 tablet by ity of tablet 00:00: mouth at [place] 00 bedtime. Medical Branch metoprolol 2018- Yes 50mg Take 50 mg U nivers tartrate 50 2-01 by mouth 2 it y of mg tablet 17:31: (two) [place] [address] times Medical daily. Branch lisinopril Yes 40mg Take 40 mg U nivers 40 mg 2-01 by mouth ity of tablet 17:31: daily. [place] [address] Medical Branch amLODIPine Yes 5mg Take 5 mg Un bria 5 mg tablet 2-01 by mouth ity of 17:31: daily. [place] [address] Medical Branch traMADOL 50 Yes [id number] 50mg Take 1 Univers mg tablet 2 [id number] tablet by ity of 00:00: mouth 2 [place] 00 (two) Medical times Branch daily as needed for Pain (scale 4-6) or Pain (scale 7-10). hydroCHLORO 2017-05 Yes [id number] 25mg Take 1 Univers thiazide 25 2-14 tablet by ity of mg tablet 00:00: mouth 00 daily. Medical Branch exenatide 2017-05 Yes [id number] 2mg inject 2 Univers microsphere 1-14 mg under ity of s ([place]: [place] BCISE[place] 2 00 weekly. Medical mg/0.85 mL Branch AtIn amitriptyli 2016-05 Yes 10 mg = 1 M emoria ne 10 mg 2-01 tab, PO, l oral tablet 14:52: Bedtime, 4 [place] 00 tabs at bedtime for 1 week then 5 tabs at bedtime thereafter , # 150 tab, 2 Refill(s), Pharmacy: [facility] diclofenac 2016-05 Yes 75 mg = 1 Me moria sodium 75 2-01 tab, PO, l mg oral 14:52: BID, PRN Gabo n enteric 00 Pain Score coated, 7-10, # 60 delayed-rel tab, 2 ease tablet Refill(s), Pharmacy: [facility] Cyclobenzap 2016-05 Yes 10 mg = 1 M emoria rine 2-01 tab, PO, l hydrochlori 14:52: BID, # 60 H ermann de 10 MG 00 tab, 2 Oral Tablet Refill(s), [Flexeril] Pharmacy: [facility]08 amitriptyli 2016-05 Yes 10 mg = 1 M emoria ne 10 mg 2-01 tab, PO, l oral tablet 14:52: Bedtime, 4 Mitesh 00 tabs at bedtime for 1 week then 5 tabs at bedtime thereafter , # 150 tab, 2 Refill(s), Pharmacy: [place] [address] diclofenac 2016-05 Yes 75 mg = 1 Me moria sodium 75 2-01 tab, PO, l mg oral 14:52: BID, PRN Gabo n enteric 00 Pain Score coated, 7-10, # 60 delayed-rel tab, 2 ease tablet Refill(s), Pharmacy: [place] [address] Cyclobenzap 2016-05 Yes 10 mg = 1 M emoria rine 2-01 tab, PO, l hydrochlori 14:52: BID, # 60 H ermann de 10 MG 00 tab, 2 Oral Tablet Refill(s), [Flexeril] Pharmacy: [place] [address] amitriptyli 2016-05 Yes 10 mg = 1 M emoria ne 10 mg 2-01 tab, PO, l oral tablet 14:52: Bedtime, 4 Mitesh 00 tabs at bedtime for 1 week then 5 tabs at bedtime thereafter , # 150 tab, 2 Refill(s), Pharmacy: [place] [address] diclofenac 2016-05 Yes 75 mg = 1 Me moria sodium 75 2-01 tab, PO, l mg oral 14:52: BID, PRN Gabo n enteric 00 Pain Score coated, 7-10, # 60 delayed-rel tab, 2 ease tablet Refill(s), Pharmacy: [place] [address] Cyclobenzap 2016-05 Yes 10 mg = 1 M emoria rine 2-01 tab, PO, l hydrochlori 14:52: BID, # 60 H ermann de 10 MG 00 tab, 2 Oral Tablet Refill(s), [Flexeril] Pharmacy: [place] [address] amitriptyli 2016-05 Yes 10 mg = 1 M emoria ne 10 mg 2-01 tab, PO, l oral tablet 14:52: Bedtime, 4 Mitesh 00 tabs at bedtime for 1 week then 5 tabs at bedtime thereafter , # 150 tab, 2 Refill(s), Pharmacy: [place] [address] diclofenac 2016-05 Yes 75 mg = 1 Me moria sodium 75 2-01 tab, PO, l mg oral 14:52: BID, PRN Gabo n enteric 00 Pain Score coated, 7-10, # 60 delayed-rel tab, 2 ease tablet Refill(s), Pharmacy: [place] [address] [facility] Yes 10 mg = 1 M emoria rine 2-01 tab, PO, l hydrochlori 14:52: BID, # 60 H ermann de 10 MG 00 tab, 2 Oral Tablet Refill(s), [Flexeril] Pharmacy: [place] [address] amitriptyli 2016-05 Yes 10 mg = 1 M emoria ne 10 mg 2-01 tab, PO, l oral tablet 14:52: Bedtime, 4 [place] 00 tabs at bedtime for 1 week then 5 tabs at bedtime thereafter , # 150 tab, 2 Refill(s), Pharmacy: [place] [address] diclofenac 2016-05 Yes 75 mg = 1 Me moria sodium 75 2-01 tab, PO, l mg oral 14:52: BID, PRN Gabo n enteric 00 Pain Score coated, 7-10, # 60 delayed-rel tab, 2 ease tablet Refill(s), Pharmacy: [address] 2016-05 Yes 10 mg = 1 M emoria rine 2-01 tab, PO, l hydrochlori 14:52: BID, # 60 H ermann de 10 MG 00 tab, 2 Oral Tablet Refill(s), [Flexeril] Pharmacy: [place] [address] amitriptyli 2016-05 Yes 10 mg = 1 M emoria ne 10 mg 2-01 tab, PO, l oral tablet 14:52: Bedtime, 4 [place] 00 tabs at bedtime for 1 week then 5 tabs at bedtime thereafter , # 150 tab, 2 Refill(s), Pharmacy: [place] [address] diclofenac 2016-05 Yes 75 mg = 1 Me moria sodium 75 2-01 tab, PO, l mg oral 14:52: BID, PRN Gabo n enteric 00 Pain Score coated, 7-10, # 60 delayed-rel tab, 2 ease tablet Refill(s), Pharmacy: [address] 2016-05 Yes 10 mg = 1 M emoria rine 2-01 tab, PO, l hydrochlori 14:52: BID, # 60 H ermann de 10 MG 00 tab, 2 Oral Tablet Refill(s), [Flexeril] Pharmacy: [facility] Lidocaine 2017- Yes 3 mL, Memoria Hydrochlori 2- Route: l de 10 MG/ML 14:50: SUB-Q, Herm chacorta Injectable 00 Dosing Solution Weight 141.364, kg, ONCE, (Preservat liliana Free), Start date: 04/25/17 8:50:00 CORPORATE TRAINING MANAGER, Stop date: 04/25/17 8:50:00 CORPORATE TRAINING MANAGER Omnipaque 2017- Yes 2 mL, Memoria 300 2- Route: l 14:50: EPIDURAL, [place] 00 Dosing Weight 141.364, kg, ONCE, (Preservat liliana Free), Start date: 04/25/17 8:50:00 CORPORATE TRAINING MANAGER, Stop date: 04/25/17 8:50:00 CORPORATE TRAINING MANAGER Dexamethaso 2017- Yes 8 mg, Memor ia ne 06-26 Route: l 14:50: EPIDURAL, Mitesh 00 ONCE, Dosing Weight 141.364, kg, (Preservat liliana Free), Start date: 04/25/17 8:50:00 CORPORATE TRAINING MANAGER, Stop date: 04/25/17 8:50:00 CORPORATE TRAINING MANAGER Bupivacaine 2017- Yes 2 mL, Memor ia Hydrochlori - Route: l de 2.5 14:50: EPIDURAL, Gabo n MG/ML 00 Dosing Injectable Weight Solution 141.364, kg, ONCE, (Preservat liliana Free), Start date: 04/25/17 8:50:00 CORPORATE TRAINING MANAGER, Stop date: 04/25/17 8:50:00 CORPORATE TRAINING MANAGER Sodium 2017-1 Yes 4.2 mL, Memoria Chloride 2- Route: l 14:50: EPIDURAL, Mitesh 00 Dosing Weight 141.364, kg, ONCE, (Preservat liliana Free), Start date: 04/25/17 8:50:00 CORPORATE TRAINING MANAGER, Stop date: 04/25/17 8:50:00 CORPORATE TRAINING MANAGER Lidocaine 2017- Yes 3 mL, Memoria Hydrochlori 2- Route: l de 10 MG/ML 14:50: SUB-Q, Herm chacorta Injectable 00 Dosing Solution Weight 141.364, kg, ONCE, (Preservat liliana Free), Start date: 04/25/17 8:50:00 CORPORATE TRAINING MANAGER, Stop date: 04/25/17 8:50:00 CORPORATE TRAINING MANAGER Omnipaque 2017-1 Yes 2 mL, Memoria 300 2-01 Route: l 14:50: EPIDURAL, [place] 00 Dosing Weight 141.364, kg, ONCE, (Preservat liliana Free), Start date: 04/25/17 8:50:00 CORPORATE TRAINING MANAGER, Stop date: 04/25/17 8:50:00 CORPORATE TRAINING MANAGER Dexamethaso 2017- Yes 8 mg, Memor ia ne 2- Route: l 14:50: EPIDURAL, [place] 00 ONCE, Dosing Weight 141.364, kg, (Preservat liliana Free), Start date: 04/25/17 8:50:00 CORPORATE TRAINING MANAGER, Stop date: 04/25/17 8:50:00 CORPORATE TRAINING MANAGER Bupivacaine 2017- Yes 2 mL, Memor ia Hydrochlori 2- Route: l de 2.5 14:50: EPIDURAL, Gabo n MG/ML 00 Dosing Injectable Weight Solution 141.364, kg, ONCE, (Preservat liliana Free), Start date: 04/25/17 8:50:00 CORPORATE TRAINING MANAGER, Stop date: 04/25/17 8:50:00 CORPORATE TRAINING MANAGER Sodium 2017-1 Yes 4.2 mL, Memoria Chloride 2-01 Route: l 14:50: EPIDURAL, [place] 00 Dosing Weight 141.364, kg, ONCE, (Preservat liliana Free), Start date: 04/25/17 8:50:00 CORPORATE TRAINING MANAGER, Stop date: 04/25/17 8:50:00 CORPORATE TRAINING MANAGER Lidocaine 2017-1 Yes 3 mL, Memoria Hydrochlori 2-01 Route: l de 10 MG/ML 14:50: SUB-Q, Herm chacorta Injectable 00 Dosing Solution Weight 141.364, kg, ONCE, (Preservat liliana Free), Start date: 04/25/17 8:50:00 CORPORATE TRAINING MANAGER, Stop date: 04/25/17 8:50:00 CORPORATE TRAINING MANAGER Omnipaque 2017-1 Yes 2 mL, Memoria 300 2-01 Route: l 14:50: EPIDURAL, [place] 00 Dosing Weight 141.364, kg, ONCE, (Preservat liliana Free), Start date: 04/25/17 8:50:00 CORPORATE TRAINING MANAGER, Stop date: 04/25/17 8:50:00 CORPORATE TRAINING MANAGER Dexamethaso 2017- Yes 8 mg, Memor ia ne 2-01 Route: l 14:50: EPIDURAL, [place] 00 ONCE, Dosing Weight 141.364, kg, (Preservat liliana Free), Start date: 04/25/17 8:50:00 CORPORATE TRAINING MANAGER, Stop date: 04/25/17 8:50:00 CORPORATE TRAINING MANAGER Bupivacaine 2017-1 Yes 2 mL, Memor ia Hydrochlori 2- Route: l de 2.5 14:50: EPIDURAL, Gabo n MG/ML 00 Dosing Injectable Weight Solution 141.364, kg, ONCE, (Preservat liliana Free), Start date: 04/25/17 8:50:00 CORPORATE TRAINING MANAGER, Stop date: 04/25/17 8:50:00 CORPORATE TRAINING MANAGER Sodium 2017-1 Yes 4.2 mL, Memoria Chloride 2-01 Route: l 14:50: EPIDURAL, Mitesh 00 Dosing Weight 141.364, kg, ONCE, (Preservat liliana Free), Start date: 04/25/17 8:50:00 CORPORATE TRAINING MANAGER, Stop date: 04/25/17 8:50:00 CORPORATE TRAINING MANAGER Lidocaine 2017-1 Yes 3 mL, Memoria Hydrochlori 2-01 Route: l de 10 MG/ML 14:50: SUB-Q, Herm chacorta Injectable 00 Dosing Solution Weight 141.364, kg, ONCE, (Preservat liliana Free), Start date: 04/25/17 8:50:00 CORPORATE TRAINING MANAGER, Stop date: 04/25/17 8:50:00 CORPORATE TRAINING MANAGER Omnipaque 2017-1 Yes 2 mL, Memoria 300 2-01 Route: l 14:50: EPIDURAL, Mitesh 00 Dosing Weight 141.364, kg, ONCE, (Preservat liliana Free), Start date: 04/25/17 8:50:00 CORPORATE TRAINING MANAGER, Stop date: 04/25/17 8:50:00 CORPORATE TRAINING MANAGER Dexamethaso 2017- Yes 8 mg, Memor ia ne 2-01 Route: l 14:50: EPIDURAL, Mitesh 00 ONCE, Dosing Weight 141.364, kg, (Preservat liliana Free), Start date: 04/25/17 8:50:00 CORPORATE TRAINING MANAGER, Stop date: 04/25/17 8:50:00 CORPORATE TRAINING MANAGER Bupivacaine 2017-1 Yes 2 mL, Memor ia Hydrochlori 2-01 Route: l de 2.5 14:50: EPIDURAL, Gabo n MG/ML 00 Dosing Injectable Weight Solution 141.364, kg, ONCE, (Preservat liliana Free), Start date: 04/25/17 8:50:00 CORPORATE TRAINING MANAGER, Stop date: 04/25/17 8:50:00 CORPORATE TRAINING MANAGER Sodium 2017-1 Yes 4.2 mL, Memoria Chloride 2-01 Route: l 14:50: EPIDURAL, [place] 00 Dosing Weight 141.364, kg, ONCE, (Preservat liliana Free), Start date: 04/25/17 8:50:00 CORPORATE TRAINING MANAGER, Stop date: 04/25/17 8:50:00 CORPORATE TRAINING MANAGER Lidocaine 2017-1 Yes 3 mL, Memoria Hydrochlori 2-01 Route: l de 10 MG/ML 14:50: SUB-Q, Herm chacorta Injectable 00 Dosing Solution Weight 141.364, kg, ONCE, (Preservat liliana Free), Start date: 04/25/17 8:50:00 CORPORATE TRAINING MANAGER, Stop date: 04/25/17 8:50:00 CORPORATE TRAINING MANAGER Omnipaque 2017-1 Yes 2 mL, Memoria 300 2- Route: l 14:50: EPIDURAL, [place] 00 Dosing Weight 141.364, kg, ONCE, (Preservat liliana Free), Start date: 04/25/17 8:50:00 CORPORATE TRAINING MANAGER, Stop date: 04/25/17 8:50:00 CORPORATE TRAINING MANAGER Dexamethaso 2017- Yes 8 mg, Memor ia ne 2- Route: l 14:50: EPIDURAL, [place] 00 ONCE, Dosing Weight 141.364, kg, (Preservat liliana Free), Start date: 04/25/17 8:50:00 CORPORATE TRAINING MANAGER, Stop date: 04/25/17 8:50:00 CORPORATE TRAINING MANAGER Bupivacaine 2017-1 Yes 2 mL, Memor ia Hydrochlori 2-01 Route: l de 2.5 14:50: EPIDURAL, Gabo n MG/ML 00 Dosing Injectable Weight Solution 141.364, kg, ONCE, (Preservat liliana Free), Start date: 04/25/17 8:50:00 CORPORATE TRAINING MANAGER, Stop date: 04/25/17 8:50:00 CORPORATE TRAINING MANAGER Sodium 2017-1 Yes 4.2 mL, Memoria Chloride 2-01 Route: l 14:50: EPIDURAL, Mitesh 00 Dosing Weight 141.364, kg, ONCE, (Preservat liliana Free), Start date: 04/25/17 8:50:00 CORPORATE TRAINING MANAGER, Stop date: 04/25/17 8:50:00 CORPORATE TRAINING MANAGER Lidocaine 2017- Yes 3 mL, Memoria Hydrochlori 2- Route: l de 10 MG/ML 14:50: SUB-Q, Herm chacorta Injectable 00 Dosing Solution Weight 141.364, kg, ONCE, (Preservat liliana Free), Start date: 04/25/17 8:50:00 CORPORATE TRAINING MANAGER, Stop date: 04/25/17 8:50:00 CORPORATE TRAINING MANAGER Omnipaque 2017- Yes 2 mL, Memoria 300 2- Route: l 14:50: EPIDURAL, Mitesh 00 Dosing Weight 141.364, kg, ONCE, (Preservat liliana Free), Start date: 04/25/17 8:50:00 CORPORATE TRAINING MANAGER, Stop date: 04/25/17 8:50:00 CORPORATE TRAINING MANAGER Dexamethaso 2017- Yes 8 mg, Memor ia ne - Route: l 14:50: EPIDURAL, [place] 00 ONCE, Dosing Weight 141.364, kg, (Preservat liliana Free), Start date: 04/25/17 8:50:00 CORPORATE TRAINING MANAGER, Stop date: 04/25/17 8:50:00 CORPORATE TRAINING MANAGER Bupivacaine 2017- Yes 2 mL, Memor ia Hydrochlori 2- Route: l de 2.5 14:50: EPIDURAL, Gabo n MG/ML 00 Dosing Injectable Weight Solution 141.364, kg, ONCE, (Preservat liliana Free), Start date: 04/25/17 8:50:00 CORPORATE TRAINING MANAGER, Stop date: 04/25/17 8:50:00 CORPORATE TRAINING MANAGER Sodium 2017-1 Yes 4.2 mL, Memoria Chloride 2- Route: l 14:50: EPIDURAL, [place] 00 Dosing Weight 141.364, kg, ONCE, (Preservat liliana Free), Start date: 04/25/17 8:50:00 CORPORATE TRAINING MANAGER, Stop date: 04/25/17 8:50:00 CORPORATE TRAINING MANAGER cyclobenzap cyclobenzap No cyclobenza [facility] rine 10 [...] with with with applicator applicator [place] [address] [place] [address] [place] [address] APPLY TO APPLY TO APPLY TO AFFECTED [...] with with applicator applicator applicator ANTWAN [place], [place] [address] [place] [address] [place] [address] APPLY TO APPLY TO APPLY TO AFFECTED [...] with with with applicator applicator applicator NICKYKATIE [facility] [place] [address] [place] [address] [place] [address] APPLY TO APPLY TO APPLY TO AFFECTED [...] with with with applicator applicator applicator [facility], [place] [address] [place] [address] [place] [address] APPLY TO APPLY TO APPLY TO AFFECTED [...] with with applicator applicator [place] [address] [place] [address] [place] [address] APPLY TO APPLY TO APPLY TO AFFECTED [...] gauge mL 31 gauge mL 31 x 64" x 15" gauge x USE USE " [...] Immunizations Ordered Filled Immunization Date Status Comments [facility] Immunization Name Name SARS-COV-2 COVID-19 2021-04-12 Completed Unive rsity of PFIZER VACCINE 00:00:00 [facility] SARS-COV-2 COVID-19 2020-08-24 Completed Unive rsity of PFIZER VACCINE 00:00:00 [facility] SARS-COV-2 COVID-19 2020-08-03 Completed Unive rsity of PFIZER VACCINE 00:00:00 [facility] Influenza Virus 2018-06-26 Completed Universit y of Vaccine Quad .5 mL 00:00:00 [facility] 6+ [place] Branch Vital Signs Vital Name Observation Time Observation Value Comments Source BP Diastolic 2022-04-11 00:00:00 70 mm[Hg] [facility] Height 2022-04-11 00:00:00 70 [in_i] [facility] BMI (Body Mass Index) 2022-04-11 00:00:00 49.5 kg/m2 [facility] BP Systolic 2022-04-11 00:00:00 130 mm[Hg] [facility] Body Weight 2022-04-11 00:00:00 345 [lb_av] [facility] BP Diastolic 2021-09-24 00:00:00 60 mm[Hg] [facility] Height 2021-09-24 00:00:00 70 [in_i] [facility] BMI (Body Mass Index) 2021-09-24 00:00:00 46.9 kg/m2 [facility] BP Systolic 2021-09-24 00:00:00 140 mm[Hg] [facility] Body Weight 2021-09-24 00:00:00 327 [lb_av] [facility] BP Diastolic 2020-09-13 00:00:00 80 mm[Hg] [facility] Height 2020-09-13 00:00:00 70 [in_i] [facility] BMI (Body Mass Index) 2020-09-13 00:00:00 45.3 kg/m2 [facility] BP Systolic 2020-09-13 00:00:00 142 mm[Hg] [facility] Body Weight 2020-09-13 00:00:00 316 [lb_av] [facility] Height 2017-06-05 17:46:00 177.8 cm [facility] Mitesh Weight 2017-06-05 17:46:00 [facility] [place] BMI Calculated 2017-06-05 17:46:00 [facility] al [place] Systolic (mm Hg) 2017-06-05 17:46:00 Chuck rial Mitesh Diastolic (mm Hg) 2017-06-05 17:46:00 Mem orial Mitesh Temperature Oral (F) 2017-06-05 17:46:00 99.3 F [facility] [place] Heart Rate 2017-06-05 17:46:00 [facility] Mites[facility] BMI Calculated 2017-04-29 15:23:00 [facility] [place] Weight 2017-04-29 15:23:00 [facility] M[facility] Height 2017-04-29 15:23:00 177.8 cm [facility] [place] Heart Rate 2017-04-29 15:00:00 [facility] 2017-04-29 15:00:00 Memori al [place] Systolic (mm Hg) 2017-04-29 15:00:00 Chuck rial Mitesh Diastolic (mm Hg) 2017-04-29 15:00:00 Mem orial Mitesh Procedures Procedure Date / Time Performing Clinician Source Performed SARS-COV-2 COVID-19 2021-04-12 22:54:16 Doctor Unassigned, No [facility] [place] VACCINE,0.3ML,IM Name Medical Branch ([place]) Drainage of Skin 2019-11-02 00:00:00 [facility] sanjiv Abscess Myelography via lumbar 2017-04-29 16:14:00 [facility] [place] injection, including radiological supervision and interpretation; thoracic Myelography via lumbar 2017-04-29 16:14:00 [facility] [place] injection, including radiological supervision and interpretation; lumbosacral NJX INTERLAMINAR 2017-04-25 14:50:00 [facility] LMBR/SA Ear operations [facility] Lumbar epidural [facility] injection Lumbar epidural steroid [facility] injection Nose operation [facility] Operation [facility] Plan of Care Planned Activity Planned Date Details Comments Source Diagnostic Test Pending 2022-04-11 00:00:00 glucose, [facility] fingerstick, blood [code = glucose, fingerstick, blood] Encounters Start End Encounter Admission Attending Care Care Encounter Source Date/Time Date/Time Type Type Clinicians Facility Department ID 2022-10-09 2022-10-09 Outpatient GC_EDEC_Hay PRIV PRIV [id number] [facility] 00:00:00 00:00:00 es_A [id number] Medica l 2022-10-07 2022-10-07 Outpatient GC_EDEC_Hay PRIV PRIV 211 [id number] [facility] 00:00:00 00:00:00 es_A [id number] Medica l 2022-07-15 2022-07-15 Outpatient GC_EDEC_Hay PRIV PRIV 211 [id number] [facility] 00:00:00 00:00:00 es_A [id number] Medica l 2022-07-15 2022-07-15 Outpatient GC_EDEC_Hay PRIV PRIV 211 [id number] [facility] 00:00:00 00:00:00 es_A [id number] Medica l 2022-07-15 2022-07-15 [facility]00 00:00:00 [facility] kaila Cotter, GC_EDEC_Pas 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 2022-04-10 2022-04-10 Outpatient GC_EDEC_Hay PRIV PRIV 211 [id number] [facility] 00:00:00 00:00:00 es_A [id number] Medica l 2022-01-04 2022-01-04 Outpatient GC_EDEC_Hay PRIV PRIV 211 [id number] [facility] 00:00:00 00:00:00 es_A [id number] Medica l 2021-12-31 2021-12-31 Outpatient GC_EDEC_Hay PRIV PRIV 211 [id number] [facility] 00:00:00 00:00:00 es_A [id number] Medica l 2021-09-24 2021-09-24 Outpatient GC_EDEC_Hay PRIV PRIV 211 [id number] [facility] 11:24:00 11:24:00 es_A [id number] Medica l 2021-09-24 2021-09-24 Outpatient Pantoja, PRIV PRIV [id number] 00:00:00 00:00:00 Ellen [id number] [facility] [id number] 2021-09-24 2021-09-24 Lelen [facility] 00:00:00 00:00:[address] [facility] kaila Pantoja MD: GC_EDEC_[facility] [address] [facility] Office[address], [facility] [address], [place] [address] , Ph. 2021-09-20 2021-09-20 Outpatient GC_EDEC_Hay PRIV PRIV 211 [id number] [facility] 03:44:00 03:44:00 es_A [id number] Medica l 2021-04-12 2021-04-12 Outpatient Florencio SLOAN [facility] [id number] [facility] 16:30:00 16:30:00 PAUL simon [facility] 2021-04-12 2021-04-12 Imm/Inj Nurse, Adc Pob Immunization [facility] [id number] Univers 16:14:33 16:14:42 [facility] 350.1.13 .10 [facility] 4.2.7.2.686 Elizabeth BENJAMIN [id number] [address] 2021-01-16 2021-01-16 Outpatient GC_EDEC_Hay PRIV PRIV 211 [id number] [facility] 07:11:00 07:11:00 es_A [id number] Medica l 2020-09-25 2020-09-25 Outpatient GC_EDEC_Hay PRIV PRIV 211 [id number] [facility] 02:20:00 02:20:00 es_A [id number] Medica l 2020-09-19 2020-09-19 Outpatient GC_EDEC_Hay PRIV PRIV 211 [id number] [facility] 02:41:00 02:41:00 es_A [id number] Medica l 2020-09-13 2020-09-13 Outpatient GC_EDEC_Hay PRIV PRIV 211 [id number] [facility] 06:01:00 06:01:00 es_A [id number] Medica l 2020-09-13 2020-09-13 Outpatient Kit, PRIV PRIV [id number] 00:00:00 00:00:00 Ellen [id number] [facility] [id number] 2020-09-13 2020-09-13 Ellen [facility] 21 [facility] 00:00:00 00:00:00 [facility] kaila Pantoja MD: GC_EDEC_Pas [address] [facility] Office[address], [facility] [address], [place] [address] , Ph. 2020-09-11 2020-09-11 Outpatient GC_EDEC_Hay PRIV PRIV 211 [id number] [facility] 12:06:00 12:06:00 es_A [id number] Medica l 2020-09-06 2020-09-06 Outpatient GC_EDEC_Hay PRIV PRIV 211 [id number] [facility] 06:40:00 06:40:00 es_A [id number] Medica l 2020-08-24 2020-08-24 Outpatient Florencio SARMIENTO, [facility] [id number] Univers 14:40:00 14:40:00 JAZMIN [facility] 2020-08-03 2020-08-03 Outpatient [facility] [id number] Univers 14:40:00 14:40:00 [facility] 2020-02-08 2020-02-08 Inpatient PILI Garcia [facility] DAYS [id number] [facility] 08:00:00 08:00:00 Neel 42 Chastity n [facility] 2020-02-02 2020-02-02 Outpatient CHINO MASON [facility] [id number] Univers 11:30:00 11:30:00 [facility] 2020-02-02 2020-02-02 Laboratory Only, Adc [facility] [id number] 11:14:48 11:29:48 Only Test [place] [id number] [place]ott[place] 4.2.7.2.686 [place] [id number] 2020-02-02 2020-02-02 Orders Doctor DULCE 1.2.840.114 [id number] 00:00:00 00:00:00 Only Unassigned, KIMBERLY 350.1.13.10 [facility] 4.2.7.2.686 [id number] 2020-01-05 2020-01-05 Telephone [place], [facility] [id number] 00:00:00 00:00:00 [place] [id number] [place] 4.2.7.2.686 Professio [id number] [facility] 220 [facility] 2019-06-16 2019-06-16 Telephone [place], [facility] [id number] 00:00:00 00:00:00 [place] 350.1.13.10 [place] 4.2.7.2.686 Professio [id number] [address] 2019-06-09 2019-06-09 Telephone [place], [facility] [id number] 00:00:00 00:00:00 [place] [id number] [place] 4.2.7.2.686 Professio [id number] [address] 2019-02-10 2019-02-10 Telephone [place], [facility] [id number] 00:00:00 00:00:00 [place] [id number] [place] 4.2.7.2.686 Professio [id number] [address] 2018-12-13 2018-12-13 Orders Doctor DULCE 1.2.840.114 [id number] 00:00:00 00:00:00 Only Unassigned, [place]IMBERLY 350.1.13.10 [facility] 4.2.7.2.686 [id number] 2018-11-27 2018-11-27 Refill [place], [facility] 1.2.840.114 [id number] 00:00:00 00:00:00 [place] 350.1.13.10 [place] 4.2.7.2.686 Professio [id number] [address] 2017-12-04 2017-12-04 Ambulatory nullFlavo [facility] [id number] [facility] 15:30:00 15:30:00 Pre-Reg [facility] 07 [facility] 2017-06-06 2017-06-08 Phone nullFlavo [facility] [id number] [facility] 20:31:00 05:59:59 Message r Clinic [facility] 09 [facility] 2017-06-05 2017-06-06 Outpatient nullFlavo [facility] [id number] [facility] 17:30:00 05:59:59 r Clinic [facility] 05 [facility] 2017-04-30 2017-05-02 Phone nullFlavo [facility] [id number] [facility] 17:52:00 05:59:59 Message r Clinic [facility] 08 [facility] 2017-04-29 2017-04-30 Outpatient nullFlavo [facility] [id number] [facility] 14:20:00 05:59:00 r [place] 00 [facility] 2017-04-25 2017-04-26 Outpatient nullFlavo [facility] [id number] [facility] 14:00:00 05:59:59 r Clinic [facility] 06 [facility] 2017-04-24 2017-04-26 Phone nullFlavo [facility] [id number] [facility] 22:30:00 05:59:59 Message r Clinic [facility] 07 [facility] 2017-04-24 2017-04-26 Phone nullFlavo [facility] [id number] [facility] 22:27:00 05:59:59 Message r Clinic TM 06 [facility] 2017-04-04 2017-04-04 Outpatient MHIE MHIE [id number] [facility] 13:00:00 13:00:[address] [facility] 2017-03-19 2017-03-20 Outpatient nullFlavo [facility] [id number] [facility] 15:22:00 04:59:00 r Mitesh 98 l [facility] 2017-03-19 2017-03-19 Outpatient MHIE MHIE [id number] [facility] 08:45:00 08:45:[address] [facility] 2017-03-19 2017-03-19 Outpatient MHIE MHIE [id number] [facility] 07:45:00 07:45:[address] [facility] 2016-09-04 2016-09-04 Outpatient MHIE MHIE [id number] [facility] 07:45:00 07:45:00 marga Sagastume 2016-08-19 2016-08-19 [id number] [facility] 10:30:00 10:30:00 00 marga Sagastume Results Test Description Test Time Test Comments Results Result Comments Source Glucose [Mass/volume] in Capillary blood 2022-04-11 14:44:52 Test Item Value Reference Range Interpretation Comme nts glucose (test code = glucose) 190 mg/dL 65-99 [facility] [Mass/volume] in Capillary [id number] 14:44:52 Test Item Value Reference Range Interpretation Comments glucose (test code = glucose) 190 mg/dL 65-99 [facility] [Mass/volume] in Capillary hfzif5580-72-55 14:44:52 Test Item Value Reference Range Interpretation Comments glucose (test code = glucose) 190 mg/dL 65-99 [facility] [Mass/volume] in Capillary ngpbs7382-24-92 09:57:51 Test Item Value Reference Range Interpretation Comments glucose (test code = glucose) 264 mg/dL 65-99 [facility] MgphlclHKWELH9922-33-88 15:58:00 Test Item Value Reference Range Interpretation Comments GLUBED (test code = GLUBED) 147 MG/DL 70-105 H FKPKACLXPK9104-64-74 16:42:00 Test Item Value Reference Range Interpretation Comments PTT (test code = PTT) 29.4 s 22.9-35.8 [facility]EbjockwRLFOWOPAGD9624-95-58 16:42:00 Test Item Value Reference Range Interpretation Comments PT (test code = PT) 12.8 s 12.0-14.7 [facility] SouthSgpyngrKYISFXHENI7942-16-98 16:42:00 Test Item Value Reference Range Interpretation Comments INR (test code = INR) 0.96 0.85-1.17 [facility] SouthEmjnmrjZIHFNAOXPA6116-52-09 16:42:00 Test Item Value Reference Range Interpretation Comments PTT (test code = PTT) 29.4 s 22.9-35.8 [facility] SouthNwgghyhXZAEFCZJUV4222-47-85 16:42:00 Test Item Value Reference Range Interpretation Comments PT (test code = PT) 12.8 s 12.0-14.7 [facility] SouthSkqadfyMCCMUWZLXE9103-94-39 16:42:00 Test Item Value Reference Range Interpretation Comments INR (test code = INR) 0.96 0.85-1.17 [facility] SouthKpduhzsDZLVZJIPQP1286-16-38 16:42:00 Test Item Value Reference Range Interpretation Comments PTT (test code = PTT) 29.4 s 22.9-35.8 [facility] SouthIxtxrksGVUBMPSERJ7861-62-09 16:42:00 Test Item Value Reference Range Interpretation Comments PT (test code = PT) 12.8 s 12.0-14.7 [facility] SouthMcgjxxjHAXCICUUNC4470-45-30 16:42:00 Test Item Value Reference Range Interpretation Comments INR (test code = INR) 0.96 0.85-1.17 [facility] SouthVehsltkSTGTUUWDYB1830-16-00 16:42:00 Test Item Value Reference Range Interpretation Comments PTT (test code = PTT) 29.4 s 22.9-35.8 [facility] SouthMdrukrmOGQNUHNGMG7333-11-67 16:42:00 Test Item Value Reference Range Interpretation Comments PT (test code = PT) 12.8 s 12.0-14.7 [facility] SouthBncwkuvULAKIKMQFL0291-65-75 16:42:00 Test Item Value Reference Range Interpretation Comments INR (test code = INR) 0.96 0.85-1.17 [facility] SouthBojkulrAJHTQLAXKX0457-69-37 16:42:00 Test Item Value Reference Range Interpretation Comments PTT (test code = PTT) 29.4 s 22.9-35.8 [facility] SouthHllbgfjGKNPXDUJSP1445-11-00 16:42:00 Test Item Value Reference Range Interpretation Comments PT (test code = PT) 12.8 s 12.0-14.7 [facility] SouthDxjcvqrGPYNEDLZVD6632-30-42 16:42:00 Test Item Value Reference Range Interpretation Comments INR (test code = INR) 0.96 0.85-1.17 [facility] SouthJiziqxeMGLEAUXHZL2419-67-69 16:42:00 Test Item Value Reference Range Interpretation Comments PTT (test code = PTT) 29.4 s 22.9-35.8 [facility] SouthMngkwmnMJIOHQGQGM4722-04-59 16:42:00 Test Item Value Reference Range Interpretation Comments PT (test code = PT) 12.8 s 12.0-14.7 [facility] SouthRwomfonLZNTUGKLHW2341-15-69 16:42:00 Test Item Value Reference Range Interpretation Comments INR (test code = INR) 0.96 0.85-1.17 [facility] SouthYapclrtKSGXKGPYTG1233-31-95 15:26:00 Test Item Value Reference Range Interpretation Comments Hct (test code = Hct) 41.3 42.0-54.0 [facility] SouthIwlapseYZXCBLXDLI7712-21-57 15:26:00 Test Item Value Reference Range Interpretation Comments MCH (test code = MCH) 27.9 pg 27.0-31.0 [facility] SouthMjfbarpONLHWYFGPB3488-83-44 15:26:00 Test Item Value Reference Range Interpretation Comments MCHC (test code = MCHC) 32.9 32.0-36.0 [facility] SouthSxpkkopKXSITKDCSK6729-31-88 15:26:00 Test Item Value Reference Range Interpretation Comments WBC (test code = WBC) 7.2 3.7-10.4 [facility] SouthBcodohoHXALPBBBNJ9767-33-78 15:26:00 Test Item Value Reference Range Interpretation Comments RBC (test code = RBC) 4.87 4.70-6.10 [facility] SouthJyomnttWVPXITWOER2687-31-18 15:26:00 Test Item Value Reference Range Interpretation Comments Hgb (test code = Hgb) 13.6 14.0-18.0 [facility] SouthIlshydoAWSEZYIBBM3583-55-11 15:26:00 Test Item Value Reference Range Interpretation Comments RDW (test code = RDW) 16.1 11.5-14.5 [facility] SouthNieelbaVHYAJNTVQM7229-24-65 15:26:00 Test Item Value Reference Range Interpretation Comments Platelet (test code = Platelet) 239 133-450 [facility] SouthCurqsifNCKEEHRZMN7461-33-34 15:26:00 Test Item Value Reference Range Interpretation Comments MPV (test code = MPV) 8.0 7.4-10.4 [facility]2017-12-05 15:26:00 Test Item Value Reference Range Interpretation Comments eGFR (test code = eGFR) 95 [facility]2017-12-05 15:26:00 Test Item Value Reference Range Interpretation Comments Creatinine Lvl (test code = Creatinine 0.92 0.50-1.40 Lvl) [facility]2017-12-05 15:26:00 Test Item Value Reference Range Interpretation Comments BUN (test code = BUN) 21 7-22 [facility] SouthJnhtvvoDWSWIVANGQ7449-53-01 15:26:00 Test Item Value Reference Range Interpretation Comments MCV (test code = MCV) 84.7 80.0-94.0 [facility] SouthVbiwqljSGGZPKYPIR7165-76-71 15:26:00 Test Item Value Reference Range Interpretation Comments Hct (test code = Hct) 41.3 42.0-54.0 [facility] SouthZxlddqcGHSXIBSTLR1255-54-08 15:26:00 Test Item Value Reference Range Interpretation Comments MCH (test code = MCH) 27.9 pg 27.0-31.0 [facility] SouthOsnyadmTYHRXSJECA9503-56-45 15:26:00 Test Item Value Reference Range Interpretation Comments MCHC (test code = MCHC) 32.9 32.0-36.0 [facility] SouthKessvxbWOCUAZNOPG7698-58-92 15:26:00 Test Item Value Reference Range Interpretation Comments WBC (test code = WBC) 7.2 3.7-10.4 [facility] SouthUvnwivyPGNEGARJVZ4111-06-09 15:26:00 Test Item Value Reference Range Interpretation Comments RBC (test code = RBC) 4.87 4.70-6.10 [facility] SouthVyodokgFHOLRVBJMI9495-11-23 15:26:00 Test Item Value Reference Range Interpretation Comments Hgb (test code = Hgb) 13.6 14.0-18.0 [facility] SouthJpctovzPOEDZZNUYW0517-64-08 15:26:00 Test Item Value Reference Range Interpretation Comments RDW (test code = RDW) 16.1 11.5-14.5 [facility] SouthVgtmrvePQZFSRCRMF6127-55-59 15:26:00 Test Item Value Reference Range Interpretation Comments Platelet (test code = Platelet) 239 133-450 [facility] SouthUzastubUAQPURQURE2291-95-41 15:26:00 Test Item Value Reference Range Interpretation Comments MPV (test code = MPV) 8.0 7.4-10.4 [facility]2017-12-05 15:26:00 Test Item Value Reference Range Interpretation Comments eGFR (test code = eGFR) 95 [facility]2017-12-05 15:26:00 Test Item Value Reference Range Interpretation Comments Creatinine Lvl (test code = Creatinine 0.92 0.50-1.40 Lvl) [facility]2017-12-05 15:26:00 Test Item Value Reference Range Interpretation Comments BUN (test code = BUN) 21 7-22 [facility] SouthAmztlylEIXFDJSUCU0848-14-69 15:26:00 Test Item Value Reference Range Interpretation Comments MCV (test code = MCV) 84.7 80.0-94.0 [facility] SouthHkcbwbmZCPAWFLBGC3425-32-00 15:26:00 Test Item Value Reference Range Interpretation Comments Hct (test code = Hct) 41.3 42.0-54.0 [facility] SouthXzdgangTNTOVAXIQX5860-76-95 15:26:00 Test Item Value Reference Range Interpretation Comments MCH (test code = MCH) 27.9 pg 27.0-31.0 [facility] SouthRinuxsfLVOVGOMOFK5870-36-44 15:26:00 Test Item Value Reference Range Interpretation Comments MCHC (test code = MCHC) 32.9 32.0-36.0 [facility] SouthQlskqdbRTFZWYKFCL1961-02-50 15:26:00 Test Item Value Reference Range Interpretation Comments WBC (test code = WBC) 7.2 3.7-10.4 [facility] SouthCcbvppkJDHPWOGTDG2568-93-67 15:26:00 Test Item Value Reference Range Interpretation Comments RBC (test code = RBC) 4.87 4.70-6.10 [facility] SouthHwmkyjfCCSCLWRRKS7096-05-45 15:26:00 Test Item Value Reference Range Interpretation Comments Hgb (test code = Hgb) 13.6 14.0-18.0 [facility] SouthKnywgcdRXMHOGAJQQ5293-02-01 15:26:00 Test Item Value Reference Range Interpretation Comments RDW (test code = RDW) 16.1 11.5-14.5 [facility] SouthKbhvjziTBSCPIDZLH9728-70-80 15:26:00 Test Item Value Reference Range Interpretation Comments Platelet (test code = Platelet) 239 133-450 [facility] SouthOvgfzfjJVDSMKXEBH5022-00-31 15:26:00 Test Item Value Reference Range Interpretation Comments MPV (test code = MPV) 8.0 7.4-10.4 [facility]2017-12-05 15:26:00 Test Item Value Reference Range Interpretation Comments eGFR (test code = eGFR) 95 [facility]2017-12-05 15:26:00 Test Item Value Reference Range Interpretation Comments Creatinine Lvl (test code = Creatinine 0.92 0.50-1.40 Lvl) [facility]2017-12-05 15:26:00 Test Item Value Reference Range Interpretation Comments BUN (test code = BUN) 21 7-22 [facility] SouthJuyfbiyAKOETXUMYB3869-08-17 15:26:00 Test Item Value Reference Range Interpretation Comments MCV (test code = MCV) 84.7 80.0-94.0 [facility] SouthEgolenoSUJOJULDFE1261-38-53 15:26:00 Test Item Value Reference Range Interpretation Comments Hct (test code = Hct) 41.3 42.0-54.0 [facility] SouthFtsfsbhLWJNFYTTLD2076-64-47 15:26:00 Test Item Value Reference Range Interpretation Comments MCH (test code = MCH) 27.9 pg 27.0-31.0 [facility] SouthAtkzwwvEBRNCPRFDM3141-45-23 15:26:00 Test Item Value Reference Range Interpretation Comments MCHC (test code = MCHC) 32.9 32.0-36.0 [facility] SouthEyuxhyfNWVZIASNBX0724-34-05 15:26:00 Test Item Value Reference Range Interpretation Comments WBC (test code = WBC) 7.2 3.7-10.4 [facility] SouthMifuuvnBTMPMXQLPE3552-86-71 15:26:00 Test Item Value Reference Range Interpretation Comments RBC (test code = RBC) 4.87 4.70-6.10 [facility] SouthSkupearFBLALWUDKC6613-86-01 15:26:00 Test Item Value Reference Range Interpretation Comments Hgb (test code = Hgb) 13.6 14.0-18.0 [facility] SouthGvcobqhAZADLXOZJC0533-29-72 15:26:00 Test Item Value Reference Range Interpretation Comments RDW (test code = RDW) 16.1 11.5-14.5 [facility] SouthCduhknkMRUMCBPUCN8806-86-15 15:26:00 Test Item Value Reference Range Interpretation Comments Platelet (test code = Platelet) 239 133-450 [facility] SouthJyvgltoEOVGDWWBIZ8113-05-41 15:26:00 Test Item Value Reference Range Interpretation Comments MPV (test code = MPV) 8.0 7.4-10.4 [facility]2017-12-05 15:26:00 Test Item Value Reference Range Interpretation Comments eGFR (test code = eGFR) 95 [facility]2017-12-05 15:26:00 Test Item Value Reference Range Interpretation Comments Creatinine Lvl (test code = Creatinine 0.92 0.50-1.40 Lvl) [facility]2017-12-05 15:26:00 Test Item Value Reference Range Interpretation Comments BUN (test code = BUN) 21 7- [facility] SouthRogdddsKAVIYMRQQS1339-09-86 15:26:00 Test Item Value Reference Range Interpretation Comments MCV (test code = MCV) 84.7 80.0-94.0 [facility] SouthHipjqgnHCNYCSUBLP2167-91-61 15:26:00 Test Item Value Reference Range Interpretation Comments Hct (test code = Hct) 41.3 42.0-54.0 [facility] SouthHhytpyzLBLAHNWWCC7626-85-94 15:26:00 Test Item Value Reference Range Interpretation Comments MCH (test code = MCH) 27.9 pg 27.0-31.0 [facility] SouthLiimjnsBRNORIYEPW1620-72-16 15:26:00 Test Item Value Reference Range Interpretation Comments MCHC (test code = MCHC) 32.9 32.0-36.0 [facility] SouthJphgloiBCQNJVBRKT6035-96-75 15:26:00 Test Item Value Reference Range Interpretation Comments WBC (test code = WBC) 7.2 3.7-10.4 [facility] SouthTmyyzxvTRMZAANNZT1984-59-74 15:26:00 Test Item Value Reference Range Interpretation Comments RBC (test code = RBC) 4.87 4.70-6.10 [facility] SouthTdchmgaYHSLPGETQW3091-95-19 15:26:00 Test Item Value Reference Range Interpretation Comments Hgb (test code = Hgb) 13.6 14.0-18.0 [facility] SouthNlolnzwRSQWZNKGEN9368-18-86 15:26:00 Test Item Value Reference Range Interpretation Comments RDW (test code = RDW) 16.1 11.5-14.5 [facility] SouthSnvjiymHQPCUEKARB1604-71-10 15:26:00 Test Item Value Reference Range Interpretation Comments Platelet (test code = Platelet) 239 133-450 [facility] SouthFyrhktfHGMBJCIWRV0603-29-13 15:26:00 Test Item Value Reference Range Interpretation Comments MPV (test code = MPV) 8.0 7.4-10.4 [facility]2017-12-05 15:26:00 Test Item Value Reference Range Interpretation Comments eGFR (test code = eGFR) 95 [facility]2017-12-05 15:26:00 Test Item Value Reference Range Interpretation Comments Creatinine Lvl (test code = Creatinine 0.92 0.50-1.40 Lvl) [facility]2017-12-05 15:26:00 Test Item Value Reference Range Interpretation Comments BUN (test code = BUN) 21 7-22 [facility] SouthPykazrdNKPHSVQBIY7703-10-76 15:26:00 Test Item Value Reference Range Interpretation Comments MCV (test code = MCV) 84.7 80.0-94.0 [facility] SouthEdmlcyvQGOHGHFJYB1017-14-31 15:26:00 Test Item Value Reference Range Interpretation Comments Hct (test code = Hct) 41.3 42.0-54.0 [facility] SouthZgenzpmZVNCYSEMSE8937-28-28 15:26:00 Test Item Value Reference Range Interpretation Comments MCH (test code = MCH) 27.9 pg 27.0-31.0 [facility] SouthVwvzxeeNIRCXJWPPU6438-70-49 15:26:00 Test Item Value Reference Range Interpretation Comments MCHC (test code = MCHC) 32.9 32.0-36.0 [facility] SouthIifuzexKNPHMQJYIR8534-10-58 15:26:00 Test Item Value Reference Range Interpretation Comments WBC (test code = WBC) 7.2 3.7-10.4 [facility] SouthGsqlgibYDHYDNDMKO4743-15-39 15:26:00 Test Item Value Reference Range Interpretation Comments RBC (test code = RBC) 4.87 4.70-6.10 [facility] SouthSxlomcsWAYICPUJVZ7790-36-85 15:26:00 Test Item Value Reference Range Interpretation Comments Hgb (test code = Hgb) 13.6 14.0-18.0 [facility] SouthJgwbyqtJQFFYSWQDK4422-79-47 15:26:00 Test Item Value Reference Range Interpretation Comments RDW (test code = RDW) 16.1 11.5-14.5 [facility] [id number] 15:26:00 Test Item Value Reference Range Interpretation Comments Platelet (test code = Platelet) 239 133-450 [facility] [id number] 15:26:00 Test Item Value Reference Range Interpretation Comments MPV (test code = MPV) 8.0 7.4-10.4 [facility]2017-12-05 15:26:00 Test Item Value Reference Range Interpretation Comments eGFR (test code = eGFR) 95 [facility]2017-12-05 15:26:00 Test Item Value Reference Range Interpretation Comments Creatinine Lvl (test code = Creatinine 0.92 0.50-1.40 Lvl) [facility]2017-12-05 15:26:00 Test Item Value Reference Range Interpretation Comments BUN (test code = BUN) 21 7-22 [id number] 15:26:00 Test Item Value Reference Range Interpretation Comments MCV (test code = MCV) 84.7 80.0-94.0 [id number] 05:57:00 Test Item Value Reference Range Interpretation [...] ( 4 - SerumAlbumin)] EGFR if >60 Moz[place] (test code mL/min/1.73m\\ = EGFRAA) S\\2 EGFR if Non- >60 Estimate d Glomerular Mozambican (test code mL/min/1.73m\\ Filtrat ion Rate (eGFR) [...] and management of c hronic kidney failure. [facility] WITH AUTO [id number] 05:42:00 Test Item Value Reference Range Interpretation [...] 1.0 % 0.0-0.4 H IG%) [facility] 05:53:00 Test Item Value Reference Range [...] ( 4 - SerumAlbumin)] EGFR if >60 [place] (test code mL/min/1.73m\\ = EGFRAA) S\\2 EGFR if Non- >60 Estimate d Glomerular Moz[place] (test code mL/min/1.73m\\ Filtrat ion Rate (eGFR) [...] and management of c hronic kidney failure. [facility] WITH AUTO [id number] 05:27:00 Test Item Value Reference Range Interpretation [...] 1.7 % 0.0-0.4 H IG%) [facility] 04:36:00 Test Item Value Reference Range [...] ( 4 - SerumAlbumin)] EGFR if >60 [place] (test code mL/min/1.73m\\ = EGFRAA) S\\2 EGFR if Non- >60 Estimate d Glomerular Mozambican (test code mL/min/1.73m\\ Filtrat ion Rate (eGFR) [...] and management of c hronic kidney failure. [facility] WITH AUTO [id number] 04:14:00 Test Item Value Reference Range Interpretation [...] 1.9 % 0.0-0.4 H IG%) [facility] 04:40:00 Test Item Value Reference Range [...] ( 4 - SerumAlbumin)] EGFR if >60 [place] (test code mL/min/1.73m\\ = EGFRAA) S\\2 EGFR if Non- >60 Estimate d Glomerular Mozambican (test code mL/min/1.73m\\ Filtrat ion Rate (eGFR) [...] and management of c hronic kidney failure. [facility] WITH AUTO [id number] 04:09:00 Test Item Value Reference Range Interpretation [...] code = 2.4 % 0.0-0.4 H IG%) [facility] [id number] 06:50:00To start 15mins after 1st cultureSpecimen: BloodCollected: 01/18/2017 04:05 Status: Final Last Updated: 01/23/2017 06:49 (1) To [id number] after 1st culture Culture Result (Final) (Final) No [facility] [place] [id number] 06:50:00Specimen: BloodCollected: 01/18/2017 03:55 Status: Final Last Updated: 01/23/2017 06:49 Culture Result (Final) (Final) No Growth [facility] 5 [facility] WITH AUTO [id number] 04:31:00 Test Item Value Reference Range Interpretation [...] code = 3.4 % 0.0-0.4 H IG%) [facility]-[id number] 04:19:00 Test Item Value Reference Range Interpretation [...] ( 4 - SerumAlbumin)] EGFR if >60 Mozamb[place] (test code mL/min/1.73m\\ = EGFRAA) S\\2 EGFR if Non- >60 Estimate d Glomerular Mozambican (test code mL/min/1.73m\\ Filtrat ion Rate (eGFR) [...] and management of c hronic kidney failure. [facility] WITH AUTO [id number] 04:57:00 Test Item Value Reference Range Interpretation [...] 4.0 % 0.0-0.4 H IG%) CBC AUTO diffRichland Center-[id number] 04:35:00 Test Item Value Reference Range Interpretation [...] ( 4 - SerumAlbumin)] EGFR if >60 Moz[place] (test code mL/min/1.73m\\ = EGFRAA) S\\2 EGFR if Non- >60 Estimate d Glomerular Mozambican (test code mL/min/1.73m\\ Filtrat ion Rate (eGFR) [...] and management of c hronic kidney failure. [facility]CBC WITH AUTO [id number] 05:01:00 Test Item Value Reference Range Interpretation [...] 4.5 % 0.0-0.4 H IG%) CBC AUTO [facility]-[id number] 04:56:00 Test Item Value Reference Range Interpretation [...] ( 4 - SerumAlbumin)] EGFR if >60 Moz[place] (test code mL/min/1.73m\\ = EGFRAA) S\\2 EGFR if Non- >60 Estimate d Glomerular Mozambican (test code mL/min/1.73m\\ Filtrat ion Rate (eGFR) [...] and management of c hronic kidney failure. [facility] WITH AUTO [id number] 05:57:00 Test Item Value Reference Range Interpretation [...] code = 4.8 % 0.0-0.4 H IG%) [facility]Yzbgpf-[id number] 05:41:00 Test Item Value Reference Range Interpretation Comments Magnesium (test code = MG) 2.0 mg/dl 1.6-2.3 [facility]-[id number] 05:41:00 Test Item Value Reference Range Interpretation [...] ( 4 - SerumAlbumin)] EGFR if >60 Mozamb[place] (test code mL/min/1.73m\\ = EGFRAA) S\\2 EGFR if Non- >60 Estimate d Glomerular Mozambican (test code mL/min/1.73m\\ Filtrat ion Rate (eGFR) [...] and management of c hronic kidney failure. [facility]kinLACTIC ACID [id number] 06:43:00 Test Item Value Reference Range Interpretation Comments LACTATE (test code = LAC) 0.9 mmol/l 0.7-2.0 [facility] HospitalkinGLYCOSALATED [id number] 05:41:00 Test Item Value Reference Range Interpretation Comments Hemoglobin A1C (test 9.06 % 4.3-6.0 A code = GLYCO) Mean Plasma Glucose 245 mg/dl 90-180 WHEN BONIFACIO T RESULTS FOR (test code = MPG) A1C EXCEED 14.0, THE LINEAR LIMIT OF THE INSTRUMENT, THE CALCULATED RESU LT FOR THE MEAN GLUCOS E IS NOT RELIABLE. [facility] HospitalkinCORONARY [id number] 05:09:00 Test Item Value Reference Range Interpretation [...] (test code = 37 mg/dl 30-60 VLDL) [facility] HospitalKohszf-[id number] 04:51:00 Test Item Value Reference Range Interpretation Comments Magnesium (test code = MG) 2.1 mg/dl 1.6-2.3 [facility] 04:51:00 Test Item Value Reference Range Interpretation Comments CPK (test code = CPK) 93 U/L 30-135 [facility]ocLIPASE, [id number] 04:43:00 Test Item Value Reference Range Interpretation Comments Lipase (test code = LIPA) 116 U/L 8-223 [facility]-[id number] 04:43:00 Test Item Value Reference Range Interpretation [...] ( 4 - SerumAlbumin)] EGFR if >60 Mozamb[place] (test code mL/min/1.73m\\ = EGFRAA) S\\2 EGFR if Non- >60 Estimate d Glomerular Mozambican (test code mL/min/1.73m\\ Filtrat ion Rate (eGFR) [...] and management of c hronic kidney failure. [facility] (HEMOGRAM ONLY)2017-01-18 04:37:00 Test Item Value Reference [...] PLATELET CLUMPI NG. THIS IS A HEMOGRAM ONLYRichland Center-[facility] Notes Date/Time Note Provider Source 2020-02-09 11:01:00-00:00 [id number] [facility] [address] [place] [address] PATIENT NAME: ROBBIN OSORIO ADMIT DATE: 02/08/20 ACCOUNT NO: [id number] ROOM NO: AGE: 55 REPORT TYPE: OPERATIVE REPORT SEX: M ADMITTING PHYSICIAN: ATTENDING PHYSICIAN:Neel Garcia MD OPERATION DATE: 02/08/2020 PREOPERATIVE DIAGNOSIS: PREOPERATIVE DIAGNOSIS: PROCEDURES PERFORMED: Selective coronary angiogr am. SURGEON: IMPLEMENTATION PROJECT MANAGER: ANESTHESIA: ACCESS: The right femoral artery closed [...] accessed utilizing micropuncture kit and then placed 6-Russian [place] sheath and then we took 6-Russian EBU gu lexie into the aortic root [...] and closed t he access with a 6-Russian Angio-Seal without complications. CONCLUSION: Moderate proximal LAD disease. Negat liliana by iFR value of 1.0. RECOMMENDATIONS: 1. Medical management of coronary artery disease . 2. Medical management of congestive heart failur e. 3. Discharge home once discharge criteria are me t. PATIENT NAME: ROBBIN OSORIO 2 Dictated By: Neel Garcia MD WT: OP:KAMARI/NERI/BELEN Conf#: [id number]/DID#: [id number] Authenticated by Neel Garcia MD On 02/10/2020 08:25:20 AM Electronically Signed by Neel Garcia MD on at 0825 PATIENT NAME: ROBBIN OSORIO 42 2017-04-29 11:15:00-00:00 EXAM: CT MYELOGRAM LUMBAR SPINE [facility] EXAM: CT MYELOGRAM THORACIC SPINE Center [...] 2017-04-29 11:15:00-00:00 EXAM: CT MYELOGRAM LUMBAR SPINE [facility] EXAM: CT MYELOGRAM THORACIC SPINE [place] EXAM: FLUOROSCOPY-GUIDED LUMBAR PUNCTURE FOR CT MYELOGRAM [...] 2017-04-29 09:20:00-00:00 EXAM: CT MYELOGRAM LUMBAR SPINE [facility] EXAM: CT MYELOGRAM THORACIC SPINE Center [...] 2017-04-29 09:20:00-00:00 EXAM: CT MYELOGRAM LUMBAR SPINE [facility] EXAM: CT MYELOGRAM THORACIC SPINE [place] EXAM: FLUOROSCOPY-GUIDED LUMBAR PUNCTURE FOR CT MYELOGRAM [...] 11:50:00-00:00 EXAM: XR ENTIRE SPINE 2 VIEWS [facility] DATE: 03/19/2017 10:49 AM CDT Ce nter [...]
[2022-12-24] MEDS ORDERED: MORPHINE 4 MG/ML SYR ONE (05:47)
[2022-12-24] MEDS ORDERED: ACETAMINOPHEN 500 MG TAB ONE (05:47)
[2022-12-24] MEDS ORDERED: NA CHLORIDE 0.9% 100 ML ONE ×2 (05:48→06:32)
[2022-12-24] MEDS ORDERED: VANCOMYCIN 1 GM/VIAL ONE (05:48)
[2022-12-24] MEDS ORDERED: NA CHLORIDE 0.9% 250 ML ONE (05:48)
[2022-12-24] MEDS ORDERED: PIPERACIL/TAZO 3.375 GM VIAL IV ONE (05:48)
[2022-12-24] MEDS ORDERED: ONDANSETRON 4 MG/2 ML VIAL ONE (05:48)
[2022-12-24 05:56] LABS: Absolute Lymphocytes (CBC) 0.6 K/uL (0.7-4.9); Hematocrit 34.3 % (39.6-49.0); Lymphocytes % 5.5 % (15.3-44.8); MPV 7.3 fL (7.6-11.3); Platelets 209 thou/uL (152-406); RBC Red Blood Cell Count 4.18 M/uL (4.33-5.43)
[2022-12-24] MEDS ORDERED: NA CHLORIDE 0.9% 1,000 ML ONE ×2 (06:21→06:51)
[2022-12-24] MEDS ORDERED: ALBUMIN HUMAN 25% 100 ML IV ONE ×2 (06:29→06:41)
[2022-12-24] MEDS ORDERED: Meropenem 1000 MG/VIAL IV ONE (06:29)
--- NOTE | 2022-12-24 06:40 | ER ---
Nurse's Notes [facility] Name: Nicola Harvey Age: 57 yrs Sex: Male : 1965 Arrival Date: 12/24/2022 Time: 05:13 Bed 6 Private MD: Diagnosis: Sepsis due to unspecified staphylococcus;Cellulitis of right lower limb Presentation: 12/24 05:19 Chief complaint: Patient states: woke up at 0245 with right leg pain and fever. HX of lg3 cellulitis. 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 took 800 MG ibuprofen at home. Coronavirus screen: Client denies travel out of the [place] in the last 14 days. At this time, the client does not indicate any symptoms associated with coronavirus-19. Ebola Screen: No symptoms or risks identified at this time. Initial Sepsis Screen: Does the patient meet any 2 criteria? Temp <36.0*C (96.8*F)) or > 38.3*C (100.9*F). HR > 90 bpm. Yes Does the patient have a suspected source of infection? Yes: Skin breakdown/wound Bone or joint infection If YES to both, name of provider notified: Dean Hernandez MD. Risk Assessment: Do you want to hurt yourself or someone else? Patient reports no desire to harm self or others. Onset of symptoms was December 24, 2022 at 02:45. 05:19 Method Of Arrival: EMS: [facility] 05:19 Acuity: ANGE 3 lg3 Triage Assessment: 05:21 General: Appears in no apparent distress. uncomfortable, Behavior is calm, cooperative. lg3 Pain: Complains of pain in right leg. EENT: No deficits noted. No signs and/or symptoms were reported regarding the EENT system. Neuro: No deficits noted. Slaughter Agitation-Sedation Scale (RASS): 0 - Alert and Calm Level of Consciousness is awake, alert, obeys commands, Oriented to person, place, time, situation. Cardiovascular: No deficits noted. Denies chest pain, shortness of breath, Capillary refill < 3 seconds Clubbing of nail beds is absent JVD is absent Patient's skin is warm and dry. Respiratory: No deficits noted. Airway is patent Respiratory effort is even, unlabored, Respiratory pattern is regular, symmetrical. GI: No deficits noted. No signs and/or symptoms were reported involving the gastrointestinal system. Abdomen is round non-distended, obese. : No deficits noted. No signs and/or symptoms were reported regarding the genitourinary system. Derm: Skin is intact, is healthy with good turgor, Skin is dry, Skin is normal, Skin temperature is warm. Musculoskeletal: Circulation, motion, and sensation intact. Range of motion: intact in all extremities, Swelling present in right leg. Historical: - Allergies: 07:04 Zosyn; rv - Home Meds: 05:21 amlodipine oral [Active]; atorvastatin oral [Active]; doxazosin oral [Active]; lg3 Furosemide Oral [Active]; Hydralazine Oral [Active]; Lisinopril Oral [Active]; Metoprolol Tartrate Oral [Active]; - PMHx: 05:21 CHF; chronic back pain; Diabetes - IDDM; Hyperlipidemia; Hypertension; Obesity; lg3 - PSHx: 05:21 addenoidectomy; Cholecystectomy; rhinoplasty; lg3 - Immunization history:: Adult Immunizations up to date, Client reports receiving the 2nd dose of the Covid vaccine, Flu vaccine is up to date. - Social history:: Smoking status: Patient denies any tobacco usage or history of. Patient/guardian denies using alcohol, street drugs. - Family history:: not pertinent. Screenin:27 [facility] ED Fall Risk Assessment (Adult) History of falling in the last 3 months, lg3 including since admission No falls in past 3 months (0 pts). Abuse screen: Denies threats or abuse. Denies injuries from another. Nutritional screening: No deficits noted. Tuberculosis screening: No symptoms or risk factors identified. Assessment: 05:27 General: see triage assessment . lg3 06:05 General: pt began vomiting and became hypotensive post administration of Zosyn. lg3 provider at bedside at time of episode. ABX discontinued and new orders received. 07:11 General: Appears distressed, uncomfortable, Behavior is anxious, restless. Pain: lg3 Complains of pain in chest. Neuro: Slaughter Agitation-Sedation Scale (RASS): +1 Restless Level of Consciousness is awake, alert, obeys commands, Oriented to person, place, time, situation. Cardiovascular: Reports chest pain, shortness of breath, Rhythm is sinus tachycardia. Respiratory: Airway is patent Respiratory effort is even, gasping, shallow, Respiratory pattern is tachypnea. 07:20 General: Appears uncomfortable, Behavior is restless, Shaking uncontrollably, pt aa5 currently only c/o chills. . Pain: Denies pain. Neuro: Level of Consciousness is alert, obeys commands, Pt is drowsy, easy to awaken to verbal stimuli. . Oriented to person, place, time, situation. Cardiovascular: Heart tones S1 S2 present Rhythm is regular. Respiratory: Airway is patent Respiratory effort is shallow, Respiratory pattern is symmetrical, tachypnea intermittent snoring Denies shortness of breath. GI: Abdomen is obese, Patient currently denies nausea. : No signs and/or symptoms were reported regarding the genitourinary system. EENT: No signs and/or symptoms were reported regarding the EENT system. Derm: Skin is moist, Skin is normal, Skin temperature is hot. 07:25 Reassessment: No changes from previously documented assessment. aa5 07:34 Reassessment: Pt appears more calm at this time, shaking has decreased significantly, aa5 pt remains drowsy but easy to awaken to verbal stimuli. Pt states feeling better. Skin is moist, warm,dry. . 07:48 Reassessment: Remained with patient at bedside from 0720 to 0748. . aa5 07:50 Reassessment: Pt calm, drowsy and easily arousal to verbal stimuli, skin is aa5 normal/warm/dry.. 08:13 Reass[address]: Spoke to Dr. Mcknight [id number] to update about patient status and VS. aa5 TO received to administer 1 L NS bolus per Dr. Mcknight and to update him again after bolus is completed. . 08:35 Neuro: Level of Consciousness is awake, alert, obeys commands, Oriented to person, aa5 place, time, situation. Respiratory: Airway is patent Respiratory effort is even, unlabored, shallow, Respiratory pattern is tachypnea. Derm: Skin is dry, Skin is normal, Skin temperature is warm. 10:14 Reassessment: Received call from Dr. Mcknight, Dr. Mcknight notified of elevated lactate, see aa5 JUL for new orders. . 11:00 Reassessment: Report given to KRUNAL Pop (ICU). aa5 11:20 Neuro: Level of Consciousness is awake, alert, obeys commands, Oriented to person, aa5 place, time, situation. Respiratory: Airway is patent Respiratory effort is even, unlabored, Respiratory pattern is tachypnea. Derm: Skin is dry, Skin is normal, Skin temperature is warm. Vital Signs: 05:19 BP 172 / 76; Pulse 114; Resp 19 S; Temp 100.9(O); Pulse Ox 98% on R/A; Weight 158.76 kg lg3 (R); Height 5 ft. 9 in. (R); 06:05 BP 69 / 42; Pulse 159; Resp 23; Pulse Ox 93% on R/A; lg3 06:25 BP 94 / 52; Pulse 114; Resp 14 S; Pulse Ox 91% on 3 lpm NC; lg3 06:30 BP 111 / 60; Pulse 117; Resp 14 S; Pulse Ox 98% on 3 lpm NC; lg3 07:12 Temp 101.8(O); lg3 07:20 BP 173 / 143; Pulse 173; Resp 35 S; Pulse Ox 93% on 3 lpm NC; aa5 07:34 BP 104 / 57; Pulse 156; Resp 30 S; Temp 103.9(A); Pulse Ox 96% on 4 lpm NC; aa5 07:43 Pulse 148; Resp 30 S; Pulse Ox 94% on 4 lpm NC; aa5 07:48 BP 86 / 50; Pulse 144; Resp 33 S; Pulse Ox 96% on 4 lpm NC; aa5 07:54 BP 92 / 54; Pulse 142; Resp 30 S; Pulse Ox 96% on 4 lpm NC; aa5 08:05 BP 86 / 46; Pulse 136; Resp 28 S; Temp 102.9(O); Pulse Ox 94% on 4 lpm NC; aa5 08:13 BP 92 / 50; Pulse 135; Resp 28 S; Pulse Ox 94% on 4 lpm NC; aa5 08:20 BP 102 / 44; Pulse 132; Resp 28 S; Pulse Ox 95% on 4 lpm NC; aa5 08:25 BP 96 / 46; Pulse 131; Resp 29 S; Pulse Ox 95% on 4 lpm NC; aa5 08:35 BP 92 / 56; Pulse 123; Resp 26 S; Pulse Ox 95% on 4 lpm NC; aa5 08:45 BP 101 / 49; Pulse 121; Resp 26 S; Pulse Ox 95% on 4 lpm NC; aa5 09:00 BP 82 / 52; Pulse 127; Resp 26 S; Temp 102.4(O); Pulse Ox 97% on 4 lpm NC; aa5 09:44 Temp 98.1(O); rs5 09:58 BP 78 / 49; Pulse 120; Resp 24 S; Pulse Ox 96% on 4 lpm NC; aa5 10:05 BP 92 / 53; Pulse 104; Resp 24 S; Pulse Ox 95% on 4 lpm NC; aa5 10:10 BP 96 / 49; Pulse 104; Resp 25 S; Pulse Ox 96% on 4 lpm NC; aa5 10:15 BP 103 / 53; Pulse 106; Resp 25 S; Pulse Ox 96% on 4 lpm NC; aa5 10:20 BP 112 / 51; Pulse 101; Resp 24 S; Pulse Ox 96% on 4 lpm NC; aa5 10:30 BP 100 / 51; Pulse 99; Resp 24 S; Pulse Ox 95% on 4 lpm NC; aa5 10:40 BP 104 / 51; Pulse 103; Resp 24 S; Pulse Ox 96% on 4 lpm NC; aa5 10:50 BP 105 / 52; Pulse 103; Resp 24 S; Pulse Ox 95% on 4 lpm NC; aa5 05:19 Body Mass Index 51.69 (158.76 kg, 175.26 cm) lg3 07:20 Unable to obtain accurate BP, pt shaking uncontrollably at this time. Dr. Hernandez aa5 aware. 07:48 Dr. Bernal notified of lowered BP, will continue to monitor. aa5 ED Course: 05:15 Patient arrived in ED. rv1 05:18 Dean Hernandez MD is Attending Physician. sp4 05:19 Jasmina Henry, KRUNAL is Primary Nurse. lg3 05:21 Triage completed. lg3 05:21 Arm band placed on right wrist. lg3 05:27 Patient has correct armband on for positive identification. Placed in gown. Bed in low lg3 position. Call light in reach. Side rails up X 1. Client placed on continuous cardiac and pulse oximetry monitoring. NIBP monitoring applied. Door closed. Noise minimized. 05:49 Inserted saline lock: 20 gauge in left forearm, using aseptic technique. Blood lg3 collected. 05:49 CRP Sent. lg3 05:49 Blood Culture Adult (2) Sent. lg3 05:50 Extremity Venous Uni Ltd US In Process Unspecified. EDMS 05:50 Basic Metabolic Panel Sent. lg3 05:50 CBC with Diff Sent. lg3 05:50 LFT's Sent. lg3 05:50 Magnesium Sent. lg3 05:50 NT PRO-BNP Sent. lg3 05:50 PT-INR Sent. lg3 05:57 Inserted saline lock: 20 gauge in right forearm, using aseptic technique. Blood rv collected. 06:38 Harjeet Mcknight MD is Hospitalizing Provider. sp4 06:38 Troponin High Sensitivity Sent. lg3 06:38 Troponin High Sensitivity Sent. lg3 07:20 Report received from KRUNAL Freedman. aa5 11:20 Patient admitted, IV remains in place. aa5 11:20 No provider procedures requiring assistance completed. aa5 Administered Medications: 06:17 Discontinued: Piperacillin-Tazobactam IVPB 3.375 grams IVPB once over 60 mins; (mix in lg3 NS 100 mL) 05:49 Drug: morphine IVP or IV 4 mg Route: IVP; Infused Over: 4 mins; Site: left forearm; lg3 06:38 Follow up: Response: No adverse reaction; Marked relief of symptoms lg3 05:49 Drug: Acetaminophen PO 1000 mg Route: PO; lg3 06:38 Follow up: Response: No adverse reaction lg3 05:49 Drug: Ondansetron IVP 4 mg Route: IVP; Site: left forearm; lg3 06:38 Follow up: Response: No adverse reaction lg3 06:01 Drug: Piperacillin-Tazobactam IVPB 3.375 grams Route: IVPB; Infused Over: 60 mins; rv Site: left forearm; 06:17 Follow up: Response: Adverse reaction, Physician notified; IV Status: Order to 3 discontinue infusion; IV Intake: 10ml 06:13 Drug: NS 0.9% IV 1000 ml Route: IV; Rate: 1 bolus; Site: right forearm; rv 07:20 Follow up: IV Status: Completed infusion; IV Intake: 1000ml aa5 06:20 Drug: Albumin IVPB 25 grams Volume: 100 ml; Route: IVPB; Site: left forearm; lg3 06:38 Follow up: Response: No adverse reaction; IV Status: Completed infusion; IV Intake: lg3 100ml 06:20 Drug: Meropenem IV 1 grams Route: IV; Rate: bolus; Site: left forearm; lg3 06:40 Follow up: Response: No adverse reaction; IV Status: Completed infusion; IV Intake: lg3 100ml 06:39 Drug: Albumin IVPB 25 grams Volume: 100 ml; Route: IVPB; Site: left forearm; lg3 07:16 Follow up: Response: No adverse reaction; IV Status: Completed infusion; IV Intake: lg3 100ml 06:40 Drug: vancoMYCIN IVPB 2 grams Route: IVPB; Rate: calculated rate; Site: left forearm; lg3 07:43 Follow up: Response: No adverse reaction aa5 08:40 Follow up: IV Status: Completed infusion aa5 06:42 Drug: NS 0.9% IV 1000 ml Route: IV; Rate: 125 ml/hr; Site: left forearm; lg3 07:41 Follow up: IV Status: Infusion continued aa5 11:20 Follow up: IV Status: Infusion continued upon admission aa5 07:11 Drug: Ativan IVP 2 mg Route: IVP; Site: left forearm; lg3 07:20 Follow up: Response: RASS: Drowsy (-1) aa5 07:11 Drug: diphenhydrAMINE IVP 25 mg Route: IVP; Site: left forearm; lg3 07:20 Follow up: Response: RASS: Drowsy (-1) aa5 07:15 Drug: Ibuprofen PO 600 mg Route: PO; aa5 08:18 Follow up: Response: Temperature is decreased aa5 07:40 Not Given (Physician Discretion): NS 0.9% IV 1000 ml IV at 1 bolus Per protocol; 1000 aa5 mL bolus 08:18 Drug: NS 0.9% IV 1000 ml Route: IV; Rate: 1000 ml; Site: left antecubital; aa5 09:40 Follow up: IV Status: Completed infusion; IV Intake: 1000ml aa5 08:21 CANCELLED (Physician Discretion): NS 0.9% IV 1000 ml IV at 1000 ml once aa5 10:00 Drug: Norepinephrine IV 0.1 mcg/kg/min Route: IV; Rate: calculated rate; Site: right aa5 forearm; 10:10 Follow up: Rate increased to 0.15mcg/kg/min aa5 11:20 Follow up: IV Status: Infusion continued upon admission aa5 10:24 Drug: Decadron - Dexamethasone IVP 10 mg Route: IVP; Site: left antecubital; aa5 10:30 Follow up: Response: No adverse reaction aa5 Medication: 11:20 VIS not applicable for this client. aa5 Intake: 06:17 IV: 10ml; Total: 10ml. lg3 06:38 IV: 100ml; Total: 110ml. lg3 06:40 IV: 100ml; Total: 210ml. lg3 07:16 IV: 100ml; Total: 310ml. lg3 07:20 IV: 1000ml; Total: 1310ml. aa5 09:40 IV: 1000ml; Total: 2310ml. aa5 Outcome: 06:39 Decision to Hospitalize by Provider. sp4 11:20 Admitted to ICU accompanied by nurse, via stretcher, room ICU 2, with oxygen, on aa5 monitor, with chart, Report called to KRUNAL Pop 11:20 Condition: stable 11:20 Instructed on the need for admit, Demonstrated understanding of instructions. 11:20 Patient left the ED. aa5 Signatures: Dispatcher [employer] EDMS Harini Arriola RN RN aa5 Norman Goodman RN RN rv Jasmina Henry RN RN lg3 Nena Echevarria rv1 Rod Miles, RN RN rs5 Dean Hernandez MD MD sp4 Corrections: (The following items were deleted from the chart) 05:28 05:19 BP 172 / 76; Pulse 114bpm; Resp 19bpm; Spontaneous; Pulse Ox 96% RA; Temp 100.9F lg3 Oral; 158.76 kg Reported; Height 5 ft. 9 in. Reported; BMI: 51.6; lg3 07:05 05:21 Allergies: NKDA; lg3 rv 07:35 07:34 Pulse 156bpm; Resp 30bpm; Spontaneous; Pulse Ox 96% 4 lpm Nasal Cannula; Temp aa5 103.9F Axillary; aa5 07:43 07:42 IV Status: Completed infusion aa5 aa5 07:55 07:52 BP 86 / 50; Pulse 144bpm; Resp 33bpm; Spontaneous; Pulse Ox 96% 4 lpm Nasal aa5 Cannula; Dr. Bernal notified of lowered BP, will continue to monitor. ; aa5 08:03 07:20 BP 173 / 143; Pulse 97bpm; Resp 35bpm; Spontaneous; Pulse Ox 93% 3 lpm Nasal aa5 Cannula; Unable to obtain accurate BP, pt shaking uncontrollably at this time. Dr. Hernandez aware. ; aa5 08: 08:18 NS 0.9% IV 1000 ml IV at 1000 ml in left antecubital aa5 aa5 11:48 11:48 Patient left the ED. aa5 aa5
--- NOTE | 2022-12-24 06:40 | EDPHYS ---
Physician Documentation [facility] Name: Nicola Harvey Age: 57 yrs Sex: Male : 1965 Arrival Date: 12/24/2022 Time: 05:13 Bed 6 Private MD: ED Physician Dean Hernandez HPI: 12/24 05:20 This 57 yrs old Male presents to ER via Unassigned with complaints of Right sp4 lower leg pain , red. 06:33 Pleasant 57-year-old male presents with worsening right lower extremity pain redness sp4 for the past 2 days. Patient has a known history of venous stasis skin ulcers varicosities bilaterally bilateral lower extremity edema CHF as well history of prior multiple episodes of cellulitis of bilateral lower extremities, history of hypertension hyperlipidemia type 2 diabetes obstructive sleep apnea and bilateral lymphedema also coronary artery disease and morbid obesity. Patient was just admitted here on a 11/27/2022 for bilateral lower extremity cellulitis. Patient's primary care doctor is Dr. Mcknight. Historical: - Allergies: 07:04 Zosyn; rv - Home Meds: 05:21 amlodipine oral [Active]; atorvastatin oral [Active]; doxazosin oral [Active]; lg3 Furosemide Oral [Active]; Hydralazine Oral [Active]; Lisinopril Oral [Active]; Metoprolol Tartrate Oral [Active]; - PMHx: 05:21 CHF; chronic back pain; Diabetes - IDDM; Hyperlipidemia; Hypertension; Obesity; lg3 - PSHx: 05:21 addenoidectomy; Cholecystectomy; rhinoplasty; lg3 - Immunization history:: Adult Immunizations up to date, Client reports receiving the 2nd dose of the Covid vaccine, Flu vaccine is up to date. - Social history:: Smoking status: Patient denies any tobacco usage or history of. Patient/guardian denies using alcohol, street drugs. - Family history:: not pertinent. ROS: 06:33 Constitutional: Negative for chills, and weight loss, positive for fever Abdomen/GI: sp4 Negative for abdominal pain, nausea, vomiting, diarrhea, and constipation, MS/Extremity: Negative for injury and deformity, positive bilateral lower extremity swelling, right lower extremity redness tenderness heat and pain. 06:33 All other systems are negative. Exam: 06:33 Constitutional: This is a well developed, well nourished patient who is awake, alert, sp4 ill-appearing male febrile and tachycardic on arrival Head/Face: Normocephalic, atraumatic. Eyes: Pupils equal round and reactive to light, extra-ocular motions intact. Lids and lashes normal. Conjunctiva and sclera are not injected. Cornea within normal limits. Periorbital areas with no swelling, redness, or edema. ENT: Nares patent. No nasal discharge, no septal abnormalities noted. Tympanic membranes are normal and external auditory canals are clear. Oropharynx with no redness, swelling, or masses, exudates, or evidence of obstruction, uvula midline. Mucous membranes moist. Neck: Trachea midline, no thyromegaly or masses palpated, and no cervical lymphadenopathy. Supple, full range of motion without nuchal rigidity, or vertebral point tenderness. Chest/axilla: Normal chest wall appearance and motion. Nontender with no deformity. No lesions are appreciated. Cardiovascular: Regular tachycardia, a normal S1 and S2. No gallops, murmurs, or rubs. Normal PMI, no JVD. No pulse deficits. Respiratory: Lungs have equal breath sounds bilaterally, clear to auscultation and percussion. No rales, rhonchi or wheezes noted. No increased work of breathing, no retractions or nasal flaring. Abdomen/GI: Soft, non-tender, with normal bowel sounds. No distension or tympany. No guarding or rebound. No evidence of tenderness throughout. Back: No spinal tenderness. No costovertebral tenderness. Skin: Warm, dry with normal turgor. Normal color with no rashes, no lesions, positive bilateral lower extremity lymphedema, bilateral lower extremity varicosities, bilateral lower extremity venous skin changes with venous stasis discoloration, right lower extremity pain, heat, redness. Neurovascular status left lower extremity is intact MS/ Extremity: Pulses equal, no cyanosis. Neurovascular intact. Full, normal range of motion. Right lower extremity pain tenderness and cellulitis Neuro: Awake and alert, GCS 15, oriented to person, place, time, and situation. Cranial nerves II-XII grossly intact. Motor strength 5/5 in all extremities. Sensory grossly intact. Psych: Awake, alert, with orientation to person, place and time. Behavior, mood, and affect are within normal limits 06:33 ECG was reviewed by the Attending Physician. 106 otherwise normal EKG Vital Signs: 05:19 BP 172 / 76; Pulse 114; Resp 19 S; Temp 100.9(O); Pulse Ox 98% on R/A; Weight 158.76 kg lg3 (R); Height 5 ft. 9 in. (R); 06:05 BP 69 / 42; Pulse 159; Resp 23; Pulse Ox 93% on R/A; lg3 06:25 BP 94 / 52; Pulse 114; Resp 14 S; Pulse Ox 91% on 3 lpm NC; lg3 06:30 BP 111 / 60; Pulse 117; Resp 14 S; Pulse Ox 98% on 3 lpm NC; lg3 07:12 Temp 101.8(O); lg3 07:20 BP 173 / 143; Pulse 173; Resp 35 S; Pulse Ox 93% on 3 lpm NC; aa5 07:34 BP 104 / 57; Pulse 156; Resp 30 S; Temp 103.9(A); Pulse Ox 96% on 4 lpm NC; aa5 07:43 Pulse 148; Resp 30 S; Pulse Ox 94% on 4 lpm NC; aa5 07:48 BP 86 / 50; Pulse 144; Resp 33 S; Pulse Ox 96% on 4 lpm NC; aa5 07:54 BP 92 / 54; Pulse 142; Resp 30 S; Pulse Ox 96% on 4 lpm NC; aa5 08:05 BP 86 / 46; Pulse 136; Resp 28 S; Temp 102.9(O); Pulse Ox 94% on 4 lpm NC; aa5 08:13 BP 92 / 50; Pulse 135; Resp 28 S; Pulse Ox 94% on 4 lpm NC; aa5 08:20 BP 102 / 44; Pulse 132; Resp 28 S; Pulse Ox 95% on 4 lpm NC; aa5 08:25 BP 96 / 46; Pulse 131; Resp 29 S; Pulse Ox 95% on 4 lpm NC; aa5 08:35 BP 92 / 56; Pulse 123; Resp 26 S; Pulse Ox 95% on 4 lpm NC; aa5 08:45 BP 101 / 49; Pulse 121; Resp 26 S; Pulse Ox 95% on 4 lpm NC; aa5 09:00 BP 82 / 52; Pulse 127; Resp 26 S; Temp 102.4(O); Pulse Ox 97% on 4 lpm NC; aa5 09:44 Temp 98.1(O); rs5 09:58 BP 78 / 49; Pulse 120; Resp 24 S; Pulse Ox 96% on 4 lpm NC; aa5 10:05 BP 92 / 53; Pulse 104; Resp 24 S; Pulse Ox 95% on 4 lpm NC; aa5 10:10 BP 96 / 49; Pulse 104; Resp 25 S; Pulse Ox 96% on 4 lpm NC; aa5 10:15 BP 103 / 53; Pulse 106; Resp 25 S; Pulse Ox 96% on 4 lpm NC; aa5 10:20 BP 112 / 51; Pulse 101; Resp 24 S; Pulse Ox 96% on 4 lpm NC; aa5 10:30 BP 100 / 51; Pulse 99; Resp 24 S; Pulse Ox 95% on 4 lpm NC; aa5 10:40 BP 104 / 51; Pulse 103; Resp 24 S; Pulse Ox 96% on 4 lpm NC; aa5 10:50 BP 105 / 52; Pulse 103; Resp 24 S; Pulse Ox 95% on 4 lpm NC; aa5 05:19 Body Mass Index 51.69 (158.76 kg, 175.26 cm) lg3 07:20 Unable to obtain accurate BP, pt shaking uncontrollably at this time. Dr. Hernandez aa5 aware. 07:48 Dr. Bernal notified of lowered BP, will continue to monitor. aa5 MDM: 05:20 Patient medically screened. sp4 06:33 Differential Diagnosis altered mental status, sepsis, flu. Data reviewed: vital signs, sp4 nurses notes, EMS record, old medical records, lab test result(s), EKG, radiologic studies, ultrasound. Consideration of Admission/Observation Patient was admitted/placed on observation. Escalation of care including admission/observation considered. Management of patient was discussed with the following: Discussed with admitting MD Dr. Mcknight. 06:39 ED course: Patient has history of congestive heart failure and fluid resuscitation sp4 option is limited at this time to 1 L plus maintenance fluids at 125 mils per hour. Fluid resuscitation is to be used very low-dose patient was secondary to prior history of heart failure also bilateral lower extremity edema suggesting the patient is already in some fluid overload. We will administer colloid solution of albumin 50 g for additional resuscitation. . 12/24 05:18 Order name: Basic Metabolic Panel sp4 12/24 05:18 Order name: CBC with Diff; Complete Time: 06:40 sp4 12/24 05:18 Order name: LFT's sp4 12/24 05:18 Order name: Magnesium sp4 12/24 05:18 Order name: NT PRO-BNP sp4 12/24 05:18 Order name: PT-INR sp4 12/24 05:19 Order name: Blood Culture Adult (2) sp4 12/24 05:19 Order name: CRP sp4 12/24 06:18 Order name: Troponin High Sensitivity sp4 12/24 06:24 Order name: Troponin High Sensitivity EDMS 12/24 07:58 Order name: Glucose, Ancillary Testing; Complete Time: 08:22 EDMS 12/24 09:05 Order name: Lactate w/ 2H reflex if indic. aa5 12/24 10:11 Order name: Lactate w/ 2H reflex if indic. EDMS 12/24 05:20 Order name: Extremity Venous Uni Ltd US 4 12/24 05:18 Order name: EKG; Complete Time: 05:19 sp4 12/24 05:18 Order name: Cardiac monitoring; Complete Time: 05:35 sp4 12/24 05:18 Order name: EKG - Nurse/Tech; Complete Time: 05:35 sp4 12/24 05:18 Order name: IV Saline Lock; Complete Time: 05:35 sp4 12/24 05:18 Order name: Labs collected and sent; Complete Time: 05:50 sp4 12/24 05:18 Order name: O2 Per Protocol; Complete Time: 05:35 sp4 12/24 05:18 Order name: O2 Sat Monitoring; Complete Time: 05:35 sp4 EC:33 Rate is 106 beats/min. Rhythm is regular, Sinus tachycardia. QRS [place] is Normal. MI sp4 interval is normal. QRS interval is normal. QT interval is normal. T waves are Normal. No ST changes noted. Clinical impression: No evidence of ischemia. Interpreted by me. Administered Medications: 06:17 Discontinued: Piperacillin-Tazobactam IVPB 3.375 grams IVPB once over 60 mins; (mix in lg3 NS 100 mL) 05:49 Drug: morphine IVP or IV 4 mg Route: IVP; Infused Over: 4 mins; Site: left forearm; lg3 06:38 Follow up: Response: No adverse reaction; Marked relief of symptoms lg3 05:49 Drug: Acetaminophen PO 1000 mg Route: PO; lg3 06:38 Follow up: Response: No adverse reaction lg3 05:49 Drug: Ondansetron IVP 4 mg Route: IVP; Site: left forearm; lg3 06:38 Follow up: Response: No adverse reaction lg3 06:01 Drug: Piperacillin-Tazobactam IVPB 3.375 grams Route: IVPB; Infused Over: 60 mins; rv Site: left forearm; 06:17 Follow up: Response: Adverse reaction, Physician notified; IV Status: Order to 3 discontinue infusion; IV Intake: 10ml 06:13 Drug: NS 0.9% IV 1000 ml Route: IV; Rate: 1 bolus; Site: right forearm; rv 07:20 Follow up: IV Status: Completed infusion; IV Intake: 1000ml aa5 06:20 Drug: Albumin IVPB 25 grams Volume: 100 ml; Route: IVPB; Site: left forearm; lg3 06:38 Follow up: Response: No adverse reaction; IV Status: Completed infusion; IV Intake: lg3 100ml 06:20 Drug: Meropenem IV 1 grams Route: IV; Rate: bolus; Site: left forearm; lg3 06:40 Follow up: Response: No adverse reaction; IV Status: Completed infusion; IV Intake: lg3 100ml 06:39 Drug: Albumin IVPB 25 grams Volume: 100 ml; Route: IVPB; Site: left forearm; lg3 07:16 Follow up: Response: No adverse reaction; IV Status: Completed infusion; IV Intake: lg3 100ml 06:40 Drug: vancoMYCIN IVPB 2 grams Route: IVPB; Rate: calculated rate; Site: left forearm; lg3 07:43 Follow up: Response: No adverse reaction aa5 08:40 Follow up: IV Status: Completed infusion aa5 06:42 Drug: NS 0.9% IV 1000 ml Route: IV; Rate: 125 ml/hr; Site: left forearm; lg3 07:41 Follow up: IV Status: Infusion continued aa5 11:20 Follow up: IV Status: Infusion continued upon admission aa5 07:11 Drug: Ativan IVP 2 mg Route: IVP; Site: left forearm; lg3 07:20 Follow up: Response: RASS: Drowsy (-1) aa5 07:11 Drug: diphenhydrAMINE IVP 25 mg Route: IVP; Site: left forearm; lg3 07:20 Follow up: Response: RASS: Drowsy (-1) aa5 07:15 Drug: Ibuprofen PO 600 mg Route: PO; aa5 08:18 Follow up: Response: Temperature is decreased aa5 07:40 Not Given (Physician Discretion): NS 0.9% IV 1000 ml IV at 1 bolus Per protocol; 1000 aa5 mL bolus 08:18 Drug: NS 0.9% IV 1000 ml Route: IV; Rate: 1000 ml; Site: left antecubital; aa5 09:40 Follow up: IV Status: Completed infusion; IV Intake: 1000ml aa5 08:21 CANCELLED (Physician Discretion): NS 0.9% IV 1000 ml IV at 1000 ml once aa5 10:00 Drug: Norepinephrine IV 0.1 mcg/kg/min Route: IV; Rate: calculated rate; Site: right aa5 forearm; 10:10 Follow up: Rate increased to 0.15mcg/kg/min aa5 11:20 Follow up: IV Status: Infusion continued upon admission aa5 10:24 Drug: Decadron - Dexamethasone IVP 10 mg Route: IVP; Site: left antecubital; aa5 10:30 Follow up: Response: No adverse reaction aa5 Disposition Summary: 12/24/22 06:39 Hospitalization Ordered Hospitalization Status: Inpatient Admission sp4 Provider: Harjeet Mcknight spJerrell Condition: Stable sp4 Problem: new sp4 Symptoms: have improved sp4 Bed/Room Type: Standard sp4 Location: Intensive Care Unit(12/24/22 10:41) bd Room Assignment: 2-(12/24/22 10:41) bd Diagnosis - Sepsis due to unspecified staphylococcus sp4 - Cellulitis of right lower limb sp4 Discharge Instructions: - Discharge Summary Sheet iw Forms: - Family Work Release iw - Medication Reconciliation Form sp4 - SBAR form sp4 Signatures: Dispatcher [employer] Alba Thayer Martha RN Mariah Garcia RN Asael Alex MD MD rn Calderon, Audri RN RN aa5 Norman Goodman RN Jasmina Toscano RN RN lg3 Dean Hernandez MD MD sp4 Corrections: (The following items were deleted from the chart) 06:24 06:16 Troponin High Sensitivity+C.LAB.BRZ ordered. EDMS EDMS 06:46 06:39 sp4 mw 07:05 05:21 Allergies: NKDA; lg3 rv 07:39 06:39 Telemetry/MedSurg (Inpatient) sp4 dw 07:39 06:46 402 mw dw 08:21 08:15 NS 0.9% IV 1000 ml IV at 1000 ml once ordered. aa5 aa5 08:21 08:18 NS 0.9% IV 1000 ml IV at 1000 ml once given. aa5 aa5 08:21 08:21 NS 0.9% IV 1000 ml IV at 1000 ml once ordered. aa5 aa5 10:41 07:39 [facility] ER HOLD dw dw 10:41 07:39 dw dw 10:41 10:41 Intensive Care Unit dw bd 10:41 10:41 2- dw bd
[2022-12-24] MEDS ORDERED: DIPHENHYDRAMINE 50 MG/ML VIAL ONE (06:57)
[2022-12-24] MEDS ORDERED: LORazepam 2 MG/ML VIAL ONE (06:58)
[2022-12-24] MEDS ORDERED: IBUPROFEN 200 MG TAB PO ONE (07:25)
[2022-12-24] MEDS ORDERED: IBUPROFEN 400 MG TAB ONE (07:25)
[2022-12-24] MEDS ORDERED: NOREPINEPHRINE BITARTRATE/D5W 4 MG/250 ML BAG IV ONE ×2 (09:58→12:40)
--- NOTE | 2022-12-24 10:29 | RAD REPORT ---
EXAM DESCRIPTION: Extremity Venous Uni Ltd CLINICAL HISTORY: PAIN Extremity Venous Uni Ltd COMPARISON: None. TECHNIQUE: Grayscale, color Doppler, and spectral Doppler imaging of the right lower extremity venou s system. FINDINGS: Normal compressibility and flow identified in the right common femoral, superficial femora l, popliteal, and visualized calf veins. No echogenic thrombus identified. Soft tissue edema. Respira tory phasicity in the common femoral veins. IMPRESSION: No evidence of right lower extremity DVT. Electronically signed by: Jose Juan Summers 12/24/2022 6:00 AM CDT Due to temporary technical issues with the PACS/Fluency reporting system, reports are being signed by the in house radiologists without review as a courtesy to insure prompt reporting. The interpreting radiologist is fully responsible for the content of the report.
[2022-12-24] MEDS ORDERED: dexAMETHasone 10 MG/ML VIAL ONE (10:36)
[2022-12-24] MEDS: NA CHLORIDE 0.9% 1,000 ML IV SCH ×2 (11:30→17:19)
[2022-12-24] MEDS ORDERED: ONDANSETRON 4 MG/2 ML VIAL IV PRN (12:18)
[2022-12-24] MEDS ORDERED: ALBUTEROL 2.5 MG/3 ML NEB SOL NEB PRN (12:18)
[2022-12-24] MEDS: INSULIN -REGULAR HUMAN 50 UNIT/0.5 ML ML SQ SCH ×3 (12:18→20:33)
[2022-12-24] MEDS ORDERED: NOREPINEPHRINE 16 MG in D5W 250 ML IV SCH (13:00)
[2022-12-24 14:25] VITALS: BMI 48.6
[2022-12-24] MEDS ORDERED: VANCOMYCIN 1 GM in NA CHLORIDE 0.9% 250 ML IVPB SCH (19:00)
--- NOTE | 2022-12-24 19:36 | HP ---
Date of Admission: 12/24/2022 Chief Complaint: Right leg pain and fever. History Of Present Illness: This is a 57-year-old male patient, who has history of recurrent cellulitis of lower extremity, started to have pain and some redness of the right leg associated with fever and chills during last night, so he came into emergency room early this morning. After he was evaluated in the ER, he was started on Zosyn and within 5 minutes after he was started on IV Zosyn, he dropped his blood pressure significantly low and became tachycardic and did not feel good at all. By the time I walked into the emergency room and communicated with the ER physician and learned about all those details as mentioned here by talking to the patient and talking to nurse as well as ER physician. His blood pressure when he first came into emergency room was 172/76 and within 5 minutes after Zosyn infusion was started, he dropped his blood pressure and lowest blood pressure was 69/42 with pulse rate 159. When I saw him, he was diaphoretic. The patient was also complaining of some chest heaviness type of feeling when he was experiencing this rapid heart rate and low blood pressure feeling. His oxygen saturation dropped down to 88% or so and he was placed on oxygen 2 L/minute. The patient denies any nausea, vomiting, diarrhea. Allergies: NO KNOWN ALLERGIES. Medications: List reviewed. Review of Systems: Constitutional: As mentioned above. Musculoskeletal: As mentioned above. All other systems reviewed and negative. Social History: Negative for smoking and alcohol use. Family History: Significant for colon cancer and prostate cancer. Past Surgical History: Significant for sinus surgery. Past Medical History: Significant for hypertension, obstructive sleep apnea, cervical spinal stenosis, type 2 diabetes mellitus, lumbar radiculopathy, hyperlipidemia, recurrent cellulitis of lower extremities, and lymphedema of legs. Also past medical history significant for coronary artery disease. Physical Examination: Vital Signs: Upon arrival to the emergency room; blood pressure 172/76, pulse 114, respiratory rate 19, temperature 100.9, oxygen saturation 98%. Weight 158.76 kg, height 5 feet 9 inches. Lowest blood pressure in the emergency room was 69/42 with pulse rate 159. General: The patient appears weaker than normal, real anxious looking and diaphoretic. Not using any accessory muscles of respiration. Awake, alert, oriented, answering all questions appropriately. HEENT: Head atraumatic, normocephalic. Conjunctivae nonerythematous. Sclerae white. Mouth, no thrush or edema noted. Ears/Nose, no mass, lesion, discharge noted. Neck: Supple. No JVD, lymph nodes, bruit, thyromegaly noted. Lungs: Bilateral good equal air entry. Clear to auscultation. No rhonchi. No rales. Heart: Normal heart sounds, no murmur or gallop. Abdomen: Soft, bowel sounds normal. No guarding, rigidity, tenderness, mass, hepatosplenomegaly, distention, or bruit noted. Extremities: Bilateral trace leg edema. Right lower extremity has brown to pink color. Skin: Warm to touch. No open wound. Lymphatics: No lymph node enlargement in neck, supraclavicular, infraclavicular region. Neuro: No focal neurological deficit. Chest: Unremarkable. External Genitalia: Deferred. Rectal: Deferred. Laboratory Data: White count 10.8, hemoglobin 11.5, platelets 209. Sodium 135, potassium 5, chloride 106, bicarb 24, glucose 320, BUN 28, creatinine 1.71, troponin 1556, lactic acid 3.4. Venous Doppler of lower extremity was negative for DVT. Impression: 1. Cellulitis, right leg. 2. Rule out sepsis. 3. Allergic reaction to Zosyn. 4. Morbid obesity. 5. Hypertension. 6. Hyperlipidemia. 7. Type 2 diabetes mellitus. 8. Obstructive sleep apnea. 9. Lymphedema, legs. 10. Coronary artery disease. Plan: Admit the patient to hospital for further evaluation and management of this problem. The patient is appropriate for inpatient and is expected to spend 2 midnights in hospital. In the emergency room, the patient received 2 L of IV fluid and his blood pressure improved, but systolic blood pressure still continued to remain 80-85 and pulse rate was around 120. At that time, we decided to continue maintenance IV fluid and start him on vasopressor medication, Levophed and 1 dose of dexamethasone 8 mg IV was ordered in the emergency room. The patient also received 50 g of albumin IV in the emergency room. Zosyn was obviously discontinued immediately when ER physician saw this hypotension and tachycardia problem, and we will have to label him as allergic to Zosyn now. Meropenem and vancomycin were started in the emergency room after this and we will continue these 2 antibiotics. The patient will be kept in ICU at least overnight, I will visit with him tomorrow. Diabetes will be managed with sliding scale insulin. We will repeat blood work tomorrow, follow up on culture results, and plan of treatment was discussed with the patient. WALT/MODL Voice ID: [id number] ANNIE
[2022-12-24] MEDS: Meropenem 1,000 MG in NA CHLORIDE 0.9% 100 ML IV SCH (20:06)
[2022-12-24 20:41] LABS: Specific Gravity 1.025 (1.005-1.030); Urine Bacteria <20 /HPF (<20); Urine Bilirubin NEGATIVE (Negative); Urine Blood 1+ (Negative); Urine Clarity Turbid (Clear); Urine Color Yellow (Yellow); Urine Glucose 4+ (Negative); Urine Mucus Slight /HPF (None Seen); Urine Protein 1+ (Negative); Urine Urobilinogen Normal (Normal); Urine pH 5.5 (5.0-7.0)
[2022-12-24] MEDS ORDERED: ENOXAPARIN 40 MG/0.4 ML SQ SCH (21:00)
[2022-12-24] MEDS ORDERED: HEPARIN/D5W 25,000 UNIT/500 ML BAG IV SCH (22:00)
[2022-12-24] MEDS: ASPIRIN EC 81 MG TAB PO SCH (22:10)
[2022-12-25 02:19] LABS: Protime INR 1.16
[2022-12-25] MEDS: NA CHLORIDE 0.9% 1,000 ML IV SCH ×3 (02:32→23:56)
[2022-12-25] MEDS ORDERED: NA CHLORIDE 0.9% 500 ML ONE ×2 (05:52→10:40)
[2022-12-25] MEDS ORDERED: VANCOMYCIN 1 GM/VIAL ONE (05:52)
[2022-12-25] MEDS ORDERED: VANCOMYCIN 2 GM in NA CHLORIDE 0.9% 500 ML IVPB SCH (07:00)
[2022-12-25 07:30] LABS: Absolute Lymphocytes (CBC) 0.4 K/uL (0.7-4.9); Hematocrit 35.3 % (39.6-49.0); Lymphocytes % 2.4 % (15.3-44.8); MCV 82.4 fL (80-100); MPV 7.5 fL (7.6-11.3); Platelets 173 thou/uL (152-406); RBC Red Blood Cell Count 4.28 M/uL (4.33-5.43)
[2022-12-25] MEDS: INSULIN -REGULAR HUMAN 50 UNIT/0.5 ML ML SQ SCH ×5 (07:30→20:10)
[2022-12-25 07:55] LABS: Albumin 3.1 g/dL (3.4-5.0); Bilirubin Total 0.3 mg/dL (0.2-1.0); Magnesium 1.8 mg/dL (1.6-2.4); Phosphorus 1.9 mg/dL (2.5-4.9); Potassium 4.4 mEq/L (3.5-5.1); Protein, Total 7.3 g/dL (6.4-8.2)
[2022-12-25] MEDS: ASPIRIN EC 81 MG TAB PO SCH (08:54)
[2022-12-25] MEDS: Meropenem 1,000 MG in NA CHLORIDE 0.9% 100 ML IV SCH ×2 (08:55→20:02)
[2022-12-25 09:57] LABS: Dohle Bodies PRESENT; Platelet Estimate ADEQ
[2022-12-25 09:58] LABS: Blood Morphology Comment NOT SEEN (NOT SEEN)
[2022-12-25] MEDS ORDERED: FENTANYL CITR 100 MCG/2 ML ONE (12:22)
[2022-12-25] MEDS ORDERED: LIDOCAINE 1% 20 ML MDV ONE (12:22)
[2022-12-25] MEDS ORDERED: HEPA 1000U/500MLS 2,000 UNIT/1,000 ML BAG IV ONE (12:22)
[2022-12-25] MEDS ORDERED: MIDAZOLAM HCL 2 MG/2 ML INJ ONE (12:23)
[2022-12-25] MEDS ORDERED: ASPIRIN 325 MG TAB ONE (12:23)
[2022-12-25] MEDS ORDERED: HEPARIN 5000 UNIT/ML 1 ML VIAL ONE (12:23)
[2022-12-25] MEDS ORDERED: CLOPIDOGREL 75 MG TABLET ONE (12:23)
[2022-12-25] MEDS ORDERED: VERAPAMIL HCL 10 MG/4 ML VIAL IV ONE (12:23)
[2022-12-25] MEDS ORDERED: HEPARIN 10,000 UNIT/10 ML VIAL IV ONE (12:23)
[2022-12-25] MEDS ORDERED: ATROPINE SULF 1 MG/10 ML SYR IV ONE (12:24)
[2022-12-25] MEDS ORDERED: TICAGRELOR 90 MG TABLET PO ONE (12:24)
--- NOTE | 2022-12-25 17:39 | EKG ---
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
[2022-12-25] MEDS: ATORVASTATIN 80 MG TAB PO SCH (20:03)
[2022-12-26 04:32] LABS: Absolute Lymphocytes (CBC) 0.9 K/uL (0.7-4.9); Lymphocytes % 7.9 % (15.3-44.8); MCV 81.5 fL (80-100); MPV 7.8 fL (7.6-11.3); Platelets 158 thou/uL (152-406); RBC Red Blood Cell Count 4.05 M/uL (4.33-5.43)
[2022-12-26 04:52] LABS: Potassium 4.5 mEq/L (3.5-5.1)
--- NOTE | 2022-12-26 07:05 | ECHO ---
HEIGHT: 5 ft 9 in WEIGHT: 329 lb 0 oz DATE OF STUDY: 12/25/[address]: Harjeet Mcknight MD 2-DIMENSIONAL: YES M.MODE: YES DOPPLER: YES COLOR FLOW: YES TDS: PORTABLE: YES DEFINITY: BUBBLE STUDY: DIAGNOSIS: ELEVATED TROPONIN CARDIAC HISTORY: CATHERIZATION: NO SURGERY: NO PROSTHETIC VALVE: NO PACEMAKER: NO MEASUREMENTS (cm) DIASTOLIC (NORMALS) SYSTOLIC (NORMALS) IVSd 1.3 (0.6-1.2) LA Diam 3.1 (1.9-4.0) LVEF 55% LVIDd 4.6 (3.5-5.7) LVIDs 3.4 (2.0-3.5) %FS 26% LVPWd 1.4 (0.6-1.2) Ao Diam 2.8 (2.0-3.7) 2 DIMENSIONAL ASSESSMENT: RIGHT ATRIUM: NORMAL LEFT ATRIUM: NORMAL RIGHT VENTRICLE: NORMAL LEFT VENTRICLE: MILD LEFT VENTRICULAR HYPERTROPHY TRICUSPID VALVE: MILD TRICUSPID REGURGITATION MITRAL VALVE: MILD MITRAL REGURGITATION PULMONIC VALVE: NORMAL AORTIC VALVE: NORMAL PERICARDIAL EFFUSION: NONE AORTIC ROOT: NORMAL LEFT VENTRICULAR WALL MOTION: NORMAL DOPPLER/COLOR FLOW: MILD MITRAL REGURGITATION. MILD TRICUSPID REGURGITATION COMMENTS: 1. NORMAL LEFT VENTRICULAR EJECTION FRACTION 55-60% WITH NORMAL WALL MOTION 2. MILD CONCENTRIC LEFT VENTRICULAR HYPERTROPHY 3. NORMAL DIASTOLIC FUNCTION 4. MILD MITRAL REGURGITATION 5. MILD TRICUSPID REGURGITATION TECHNOLOGIST: HARRIS HALE
[2022-12-26] MEDS ORDERED: VANCOMYCIN 2 GM in NA CHLORIDE 0.9% 500 ML IVPB SCH ×3 (08:00)
[2022-12-26] MEDS: ASPIRIN EC 81 MG TAB PO SCH (08:16)
[2022-12-26] MEDS: Meropenem 1,000 MG in NA CHLORIDE 0.9% 100 ML IV SCH (08:16)
[2022-12-26] MEDS: INSULIN -REGULAR HUMAN 50 UNIT/0.5 ML ML SQ SCH ×4 (08:18→20:34)
[2022-12-26] MEDS: Levofloxacin 750mg IV 750 MG/150 ML BAG IV SCH (08:27)
[2022-12-26] MEDS: AMLODIPINE 5 MG TAB PO SCH ×2 (08:27→20:33)
[2022-12-26] MEDS: ENOXAPARIN 30 MG/0.3 ML SQ SCH ×2 (08:27→20:33)
--- NOTE | 2022-12-26 19:59 | PN ---
Date of Progress Note: 12/25/2022 Subjective: The patient was seen this morning for followup, lying in bed, not in any distress. He w as in ICU. Denies any chest pain. No shortness of breath. Objective: Vital Signs: Reviewed. HEENT: Unremarkable. Lungs: Clear to auscultation. Heart: Sounds normal. Abdomen: Soft. Bowel sounds normal. No guarding, rigidity, tenderness, distention. Extremities: Trace leg edema. Right lower extremity shows some warmness of skin involving lower selina f of the leg. There is no redness. No open wound. Laboratory Data: White count 7.4, hemoglobin 11.5, platelets 173. Sodium 137, potassium 4.4, chlori de 108, bicarb 27, BUN 25, creatinine 1.22, glucose 246. Troponin 1074. Impression: 1.Sepsis. 2.Cellulitis, right leg. 3.Non-ST segment elevation myocardial infarction. 4.Hypertension. 5.Type 2 diabetes mellitus, uncontrolled. 6.Hyperlipidemia. Plan: We will go ahead and continue current empiric antibiotics, followup on culture results, and th en decide about culture specific antibiotics. Continue other current medical management. The patien t is on heparin drip, we will continue that. After I saw the patient, he was evaluated by cardiologi st, Dr. Garcia and he decided to take him to cardiac cath and he contacted me after the cardiac cath and informed me about the patient's coronary artery disease status and the patient did not have any s tent placement today, but Dr. Garcia will plan to do elective to cardiac cath again and a stent place ment sometime in the future after sepsis problem gets resolved. I will see him tomorrow for followup. The patient is medically stable for transfer out of ICU to regular medica l floor with all current orders. WALT/MODL Voice ID: [id number] Report ID: [id number]
--- NOTE | 2022-12-26 20:21 | PN ---
Date of Progress Note: 12/26/2022 Subjective: The patient was seen this morning for followup. No new complaints or problems reported by the patient. He was still in ICU as there were no beds available on the floor. Medically, he is stable for transfer. Vital signs reviewed. Blood pressure is stable. Denies any chest pain, shortn ess of breath, nausea, vomiting. Physical Examination: HEENT: Unremarkable. Lungs: Clear to auscultation. Heart: Sounds normal. Abdomen: Soft. Bowel sounds normal. No guarding, rigidity, tenderness, distention. Extremity: Trace leg edema and right lower half of the leg has slightly warm skin. No evidence of a ny redness of the skin. No open wound. Laboratory Data: Blood culture results reviewed. Impression: 1.Sepsis. 2.Coronary artery disease. 3.Hypertension. 4.Hyperlipidemia. 5.Type 2 diabetes mellitus. Plan: I have discussed the patient's cardiac cath results with him and I have shown him cardiac cath pictures and informed him that he should follow up with insurance billing clerk on outpatient basis for electiv e procedure for his coronary artery disease problem. I will discontinue meropenem and vancomycin and start him on Levaquin 750 mg IV daily, continue aspirin and statin therapy, and I will see him tomorrow for followup. Possible discharge to go home over the next 1 or 2 days. WALT/MODL Voice ID: [id number] Report ID: [id number]
[2022-12-26] MEDS: ATORVASTATIN 80 MG TAB PO SCH (20:34)
[2022-12-27 04:35] VITALS: TEMP 98.1
[2022-12-27] MEDS ORDERED: ACETAMINOPHEN 500 MG TAB PO PRN (08:53)
[2022-12-27] MEDS: INSULIN -REGULAR HUMAN 50 UNIT/0.5 ML ML SQ SCH ×2 (09:21→11:30)
[2022-12-27] MEDS: ENOXAPARIN 30 MG/0.3 ML SQ SCH (09:22)
[2022-12-27] MEDS: AMLODIPINE 5 MG TAB PO SCH (09:22)
[2022-12-27] MEDS: ASPIRIN EC 81 MG TAB PO SCH (09:23)
[2022-12-27] MEDS: Levofloxacin 750mg IV 750 MG/150 ML BAG IV SCH (09:23)
[2022-12-27 10:05] VITALS: O2SAT 97
[2022-12-27 11:47] VITALS: BP 149/72
[2022-12-27 12:56] LABS: Potassium 4.4 mEq/L (3.5-5.1)
--- NOTE | 2022-12-27 22:18 | DS ---
Date of Discharge: 12/27/2022 Disposition: Discharged to go home. Physical Examination: HEENT: Unremarkable. Lungs: Clear to auscultation. Heart: Sounds normal. Abdomen: Soft. Bowel sounds normal. No guarding, rigidity, tenderness, distention. Extremities: Bilateral trace leg edema. Very minimal warmness of the right lower leg. Overall, muc h better than before. There is no open wound. Laboratory Data: Upon admission white count 10.8, hemoglobin 11.5, platelets 209, which was on 12/24. Next day white count went up to 17.4, hemoglobin 11.5, platelets 173. Yesterday, white count 11.2, hemoglobin 10.7, platelets 158. His last chemistry today sodium 136, potassium 4.4, chloride 106, bicarb 24, BUN 14, creatinine 0.90, glucose 182. Hemoglobin A1c today 6.7. Upon admission, lac tic acid level was 3.4. Sodium 135, potassium 5, chloride 106, bicarb 24, BUN 28, creatinine 1.71, g lucose 320. Troponin level was 1556. Echocardiogram had shown normal ejection fraction 55%. Mild c oncentric left ventricular hypertrophy. Normal wall motion, normal diastolic function. Mild mitral regurgitation, mild tricuspid regurgitation. Cardiac cath shows evidence of coronary artery disease with about 70% stenosis of LAD and about 40% to 50% of circumflex and RCA. Stenosis was also noted. No stent placement was performed during this hospitalization. Discharge Medications And Instructions: 1.Continue all prior home medications. 2.Take Levaquin 750 mg daily for 2 weeks. 3.Continue atorvastatin 80 mg daily at bedtime. 4.Follow up at my office and follow up with Dr. Garcia next week. 5.May return to work on 12/30/2022. 6.The patient to make sure to take aspirin 81 mg, patient to take 2 tablets daily with food. Hospital Course: This is a 57-year-old very pleasant male patient, who came into emergency room with pain and redness of right leg and fever. 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 The patient was resuscitated with IV fluid. Zosyn was discontinued immed iately and his condition started to get stabilized. He received IV albumin 50 g and also 1 dose of I V steroid dexamethasone. The patient was subsequently admitted to Intensive Care Unit. He did requi re a few hours of vasopressor medication. After initial IV fluid bolus, he continued to receive main tenance IV fluid in ICU and he was getting IV vancomycin and meropenem. Cardiology consultation was requested because patient's troponin level was elevated and Dr. Garcia from Cardiology Service evalua gold him and did cardiac cath on him and found evidence of coronary artery disease, which he informed me and patient, that the patient will need percutaneous intervention, but because of his current seps is, he has not provided any intervention in terms of stent placement, but [facility]. He has instructed the patient to see him next week since he is going home t [place]. The patient's condition got stabilized in ICU. Yesterday we moved him out of ICU to regular r oom. This morning when I saw him, he was feeling fine, sitting in chair. His son was with him at [facility]. Hemodynamically, patient has remained stable ever since day after his admission to the hospit ms. I have explained him about the cardiac cath findings and I have also made him aware that he shou ld remember that he is allergic to this antibiotic Zosyn, which is a form of penicillin and he should not take any such medications from the penicillin family in the future. His blood culture came back positive for Citrobacter and sensitivity results reviewed. It is sensitive to Levaquin, so as of , we discontinued his vancomycin and meropenem and started him on Levaquin 750 mg IV daily. T [place] after I evaluated him, he was discharged to go home in stable condition. Final Diagnoses: 1.Sepsis, organism Citrobacter. 2.Non-ST elevation myocardial infarction. 3.Coronary artery disease. 4.Cellulitis, right leg. 5.Hypertension. 6.Hyperlipidemia. 7.Type 2 diabetes mellitus. 8.Morbid obesity. 9.Obstructive sleep apnea. 10.Lymphedema, legs. Discharge Medications And Instructions: 1.Continue all prior home medications. 2.Take Levaquin 750 mg daily for 2 weeks. 3.Continue to take atorvastatin 80 mg daily at bedtime. 4.Make sure to take aspirin 81 mg, take 2 tablets by mouth daily with food. 5.May return to work on 12/30/2022. 6.Follow up at my office and follow up with Dr. Garcia next week. WALT/MODL Voice ID: [id number] Report ID: [id number]
--- NOTE | 2022-12-28 13:24 | OP ---
Date of Procedure: 12/25/2022 Surgeon: NIYAH CEDILLO Procedures Performed: 1.Selective coronary angiogram. 2.Left heart catheterization. Indication: Fai-UK-iigxpoqfj myocardial infarction. Access: Right femoral artery 6-Belarusian closed with StarClose. Complications: None. Bleeding: Less than 20 mL. Anesthesia: Total sedation time was 30 minutes. Description Of Procedure: After risks, benefits, alternatives were explained, the patient agreed to the procedure and signed informed consent. Patient was brought into cardiac catheterization laborato , prepped and draped in sterile fashion. Then, I accessed the right femoral artery using micropunc ture kit, fluoroscopy, and ultrasound guidance and placed a 6-Bel[place]ian Pearce sheath and took 6-Frenc h JL4 catheter into the aortic root, over J-wire, engaged left main and took standard views and excha nged for 6-Bel[place]ian JR4 catheter and engaged the RCA and took standard views and the catheter was pushe d over the wire into the LV, measured the LVEDP and pullback did not record any gradient. I then rem derek the catheter and the sheath. StarClose was used for closure with good hemostasis. Findings: 1.Left main; large and normal. 2.LAD; normal proximal segment. In the mid segment, there is a long 70% stenosis with heavy calcifi cation and then it becomes 80% to 90% stenosis with heavy calcification and the diagonal 1 branch has proximal 30% to 40% stenosis. The rest of the LAD is normal. 3.Left circumflex is moderate size with mid 70% stenosis. 4.RCA; proximal 60% and the luminal irregularities. 5.Elevated LVEDP at 32 mmHg. Conclusion: 1.Severe LAD disease that requires atherectomy and PCI. However, he is currently septic. We will p bridger to do this as an outpatient once the infection is under control. Also, he might need a PCI of hi s mid left circumflex as well. 2.Elevated LVEDP suggestive of significant diastolic heart failure. Recommend diuresis. Discussed the case with Dr. Mcknight. We will plan once the patient is discharged to set him up for outpatient PCI with shockwave of the LAD and left circumflex. SR/MODL Voice ID: [id number] Report ID: [id number]
--- NOTE | 2022-12-28 14:09 | CON ---
Date of Consultation: 12/25/2022 Reason For Consultation: Chest pain with mildly elevated troponin. History Of Present Illness: This is a 57-year-old male, well known to me and has history of moderate coronary artery disease that was evaluated about 2 years ago, especially to the mid LAD. It was mod erate with negative FFR, so he presented this time with infection to the right leg with fever. He wa s septic, started on IV antibiotics. Blood pressure dropped as low as 69/42 and heart rate in the 15 0s range. He had a chest pain episode that resolved and leaked troponin mildly. I saw him by anni gutierrez. He denies having any chest pain. No nausea, vomiting, or diaphoresis. 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 Medications: Refer to reconciliation sheet for detailed list. Allergies: HIS ALLERGY LIST WAS REVIEWED. Family History: No mention of coronary artery disease or cancer. Social History: He does not smoke or drink. Does not use any drugs. Review of Systems: All systems reviewed are negative except for mentioned in HPI. Physical Examination: Vital Signs: Reviewed. Head and Neck: Pupils are equal, reactive to light. Intact eye movements. No JVD. No cervical lym phadenopathy. Neck: Supple. Thyroid is not enlarged. Lungs: Clear to auscultation bilaterally. No rhonchi, rales, or crackles. No accessory muscle use. Heart: Regular rate and rhythm. No extra sounds. Abdomen: Soft, nontender. Bowel sounds positive. No organomegaly. No masses or hernia. No rigidi ty or rebound. Extremities: No edema, clubbing, cyanosis. Intact pulses. Skin: No rash. Neurologic: Alert, awake, oriented x3. No acute focal deficits appreciated. Lymph Nodes: No cervical or axillary lymphadenopathy. Investigations: Troponin was 1556 and trended down to 1074. His BUN 25, creatinine 1.22. His white blood cell count 17.4 and hemoglobin 11.5. Assessment/recommendation: 1.Chest pain with elevated troponin suggestive of [id number] myocardial infarction. We will t travis the patient for coronary angiogram to identify the coronary anatomy and plan accordingly. In the interim, recommend to continue IV heparin, baby aspirin, and other possibility given that he is know n to have coronary artery disease that this could be a demand due to the fact that his blood pressure dropped due to sepsis. 2.Cellulitis of lower extremity with resultant sepsis, on wide-spectrum antibiotics, to be continued . 3.Hypertension. Blood pressure is controlled. 4.Dyslipidemia. Recommend to continue with atorvastatin 40 mg at bedtime. SR/MODL Voice ID: [id number] Report ID: [id number]
--- NOTE | 2022-12-28 14:51 | PN ---
Date of Progress Note: 12/26/2022 Subjective: Seen by bedside. Doing well. Review of Systems: No chest pain. No shortness of breath. No nausea, vomiting, diarrhea. No abdominal pain. All othe r systems were reviewed, they are negative. Physical Examination: Vital signs: Reviewed. Head and Neck: Pupils are equal, reactive to light. Intact eye movements. No JVD. No cervical darryl nopathy. Neck is supple. Thyroid is not enlarged. Lungs: Clear to auscultation bilaterally. No rhonchi, rales, or crackles. No accessory muscle use. Heart: Regular rate and rhythm. No extra sounds. Abdomen: Soft, nontender. Bowel sounds positive. No organomegaly. No masses or hernia. No rigidi ty or rebound. Extremities: No edema, clubbing, cyanosis. Intact pulses. Skin: No rash. Neurologic: Alert, awake, oriented x3. No acute focal deficits appreciated. Investigations: White blood count 11.2, hemoglobin is 10.7, and BUN 19, creatinine 0.94. Assessment/recommendation: 1.Severe coronary artery disease and needs PCI of the LAD once the sepsis condition is stabilized. The elevated troponin I do not believe it is non-STEMI. I believe this is demand as about an 80% hernandez nosis of the LAD which needs PCI due to the active sepsis condition. We will wait until he is stable from the sepsis perspective and will plan for the PCI as outpatient at a higher level of care facili ty as those vessels are heavily calcified and they need atherectomy. 2.Dyslipidemia. Continue Lipitor 40 mg at bedtime. 3.Hypertension. Blood pressure is controlled. 4.Cellulitis with resultant sepsis and this currently is under control. SR/MODL Voice ID: [id number] Report ID: [id number]
--- NOTE | 2022-12-28 15:57 | PN ---
Date of Progress Note: 12/27/2022 Subjective: Seen by bedside. No chest pain. Doing very well. Review of Systems: No chest pain, shortness of breath, orthopnea, cough, nausea, vomiting, diarrhea. All other systems reviewed are negative. Physical Examination: Vital signs: Reviewed. Head and Neck: Pupils are equal, reactive to light. Intact eye movements. No JVD. No cervical lym phadenopathy. Neck: Supple. Thyroid is not enlarged. Lungs: Clear to auscultation bilaterally. No rhonchi, wheezing, or crackles. No accessory muscle u se. Heart: Regular rate and rhythm. No extra sounds. Abdomen: Soft, nontender. Bowel sounds positive. No organomegaly. No masses or hernia. No rigidi ty or rebound. Extremities: No edema, clubbing, or cyanosis. Intact pulses. Skin: No rash. Neurologic: Alert, awake, oriented x3. No acute focal deficits appreciated. Investigations: Labs reviewed. Assessment And Recommendation: 1.Coronary artery disease with demand ischemia due to sepsis. Needs PCI of the LAD with atherectomy . Plan for it in about 1-2 weeks. Once his infection is under control in the interim, continue dual antiplatelet therapy and high-dose statin. 2.Hypertension. Blood pressure is controlled. Continue current therapy. 3.Dyslipidemia. Continue Lipitor 40 mg. 4.Cellulitis with resultant sepsis, seems to be doing much better and the patient is being released apparently today. We will follow him up closely as an outpatient. /KAUR Voice ID: [id number] Report ID: [id number]
== END 2022-12-27 14:18 | disposition home or self-care (01) | DRG 872 ==
LOC: ER 05:13 → ERHOLD 06:43 → 3RD-ICU 11:05 → 2ND 12-26 23:55
PROVIDERS: ADMIT Internal Medicine; ATTEND Internal Medicine
PROC: 4A023N7 Measurement of Cardiac Sampling and Pressure, Left Heart, Percutaneous Approach (ICD-10-PCS; principal; 2022-12-25)
PROC: B2111ZZ Fluoroscopy of Multiple Coronary Arteries using Low Osmolar Contrast (ICD-10-PCS; 2022-12-25)
DX: A41.2 Sepsis due to unspecified staphylococcus (principal); T78.2XXA Anaphylactic shock, unspecified, initial encounter; Z68.43 Body mass index [BMI] 50.0-59.9, adult; L03.115 Cellulitis of right lower limb; I24.8 Other forms of acute ischemic heart disease; E66.01 Morbid (severe) obesity due to excess calories; I10 Essential (primary) hypertension; E78.5 Hyperlipidemia, unspecified; I89.0 Lymphedema, not elsewhere classified; E11.9 Type 2 diabetes mellitus without complications; G47.33 Obstructive sleep apnea (adult) (pediatric); G89.29 Other chronic pain; M54.9 Dorsalgia, unspecified; I25.10 Atherosclerotic heart disease of native coronary artery without angina pectoris; Z88.1 Allergy status to other antibiotic agents; Z90.49 Acquired absence of other specified parts of digestive tract; Z79.899 Other long term (current) drug therapy; T36.0X5A Adverse effect of penicillins, initial encounter
CPT/HCPCS: 36415; 76937; 80048; 80053; 80061; 80202; 81001; 82947; 83036; 83605; 83735; 84100; 84484; 85025; 85347; 85610; 85730; 87040; 87077; 87186; 87205; 93005; 93306; 93458; 93971; 99285; C1893; J0461; J1100; J1200; J1644; J1650; J1815; J2001; J2185; J2250; J2405; J2543; J3010; J7030; J7040; J7050; J7060; P9047; Q9967

== ENCOUNTER 2023-02-04 17:26 | Emergency (ER) | payer BC ==
--- OUTSIDE RECORDS SUMMARY | 2023-02-04 17:56 | XMS REPORT | Continuity of Care Document ---
:1965 Author Organization [facility] t Address [address] [place] [address] [place] [id number] Care Team Providers Name Role Phone Juan Luis Hope Fine Primary Care Physician Neel Garcia Attending Clinician Unavailable BERLIN_KANDICE_Kit_Latoya Attending Clinician Unavailable Ellen Pantoja Attending Clinician [phone] PAUL SLOAN Attending Clinician Unavailable Nurse, Marivel Pob Immunization Attending Clinician Unavailable Paul Sloan DO Attending Clinician JAZMIN SARMIENTO Attending Clinician Unavailable CHINO HEALY Attending Clinician Unavailable Only, Marivel Test Attending Clinician Unavailable Doctor Unassigned, [place] Attending Clinician Unavailable Anupam Atkins MD Attending Clinician Dulce aLu Attending Clinician Camacho Jesus Attending Clinician Manjinder Kowalski Attending Clinician MADI FAITH Attending Clinician Unavailable TAMMY BETANCOURT Attending Clinician Unavailable Physician, No Primary or Family Admitting Clinician Unavaila ble GC_EDEC_Hayes_A Admitting Clinician Unavailable HOPE BARRAZA Admitting Clinician Unavailable MADI FAITH Admitting Clinician Unavailable TAMMY BETANCOURT Admitting Clinician Unavailable Payers Payer Name Policy Type Policy Number Effective Date Expiration Date S our[place] [id number] 2022 00:00:00 [place] AETNA (POS) [id number] 2021 00:00:00 [place] - [id number] 2019 00:00:00 OUT OF [facility]: [id number] [facility] (PPO) Problems Condition Condition Condition Status Onset [...] Type II Problem Active [facility] diabetes Diabetes 421 Medica l mellitus Mellitus 00:00: uncontroll Uncontroll 00 ed ed Cellulitis Cellulitis Disease Active U nivers of right of right 131 ity of lower lower 00:00: [place] extremity [...] Diagnosis Active 2016-052017-04-29 Me moria STENOSIS STENOSIS 1-14 09:02:00 l Active 00:00: Shayy 04/08/[address] [facility] M54.16 M54.16 Diagnosis Active 2016-052017-03-19 Me moria Active 0 10:29:00 l 03/19/2017 00:00: Gabo thomas [address] Abdominal Abdominal Problem Resolve 2017-12-07 Memoria pain pain d 00:03:51 l (finding) (finding) Nikos gabriela Resolved Problem 12/07/2017 [facility] Chest pain Chest Problem Resolve 2017-12-07 Memoria (finding) pain d 00:03:51 l (finding) [place] Resolved Problem 12/07/2017 [facility] Chronic Chronic Problem Resolve 2017-12-07 M emoria back pain back pain d 00:03:51 l (disorder) (disorder) [place] Resolved Problem 12/07/2017 [facility] Diabetes Diabetes Problem Active 2017-12-07 Memoria mellitus mellitus 00:03:51 l (disorder) (disorder) [place] Active Problem 12/07/2017 [facility] Hyperchole Hyperchol Problem Active 2017-12-07 Memoria sterolemia esterolemi 00:03:51 l (disorder) a Gabo thomas (disorder) Active Problem 12/07/2017 [facility] Hypertensi Hypertens Problem Active 2017-12-07 Memoria ve liliana 00:03:51 l disorder, disorder, Herm gabriela systemic systemic arterial arterial (disorder) (disorder) Active Problem 12/07/2017 [facility] Morbid Morbid Problem Active 2017-12-07 [place] obesity obesity 00:03:51 l (disorder) (disorder) [place] Active Problem 12/07/2017 [facility] Prolapsed Prolapsed Problem Active 2017-12-07 Memoria lumbar lumbar 00:03:51 l interverte interverte [place] bral disc bral disc (disorder) (disorder) Active Problem 12/07/2017 [facility] Allergies, Adverse Reactions, Alerts Allergy Allergy Status Severity Reaction(s) Onset Inactive Treating Comm ents Source Name Type Date Date Clinician Penicill DA Active SV HYPOTENSION [facility] ins 01-23 Clear 00:00: Utrner 00 [facility] canaglif DA Active MO LEG [facility] lozin INFECTION 01-23 Clear WITH 00:00: Turner BLISTERS [facility] empaglif DA Active MO LEG [facility] lozin INFECTION 01-23 Yenni r BLISTERS 00:00: Turner 00 [facility] No Known DA Active U 2019-0 [facility] Allergie 02-01 [place] s 00:00: [facility] No Known DA Active U 2020-0 [facility] Allergie 02-01 [place] s 00:00: [facility] 00 [facility] NO KNOWN Drug Active Univers ALLERGIE Class ity of S [facility] Social History Social Habit Start Date Stop Date Quantity Comments Source Alcohol intake 2018-07-21 2018-07-21 Current University of 00:00:00 00:00:00 non-drinker of [facility] alcohol Branch (finding) Tobacco use and 2018-04-09 2018-04-09 Never used Universit y of exposure 00:00:00 00:00:00 [facility] Sex Ass[birth year] Universit y of 00:00:00 00:00:00 [facility] Smoking Status Start Date Stop Date Source Never Smoker [facility] Social History 2017-06-05 17:47:50 2017-06-05 17:47:50 [facility] Medications Ordered Filled Start Stop Current Ordering Indication Dosage Frequency Signature Comments Components Source Medication Medication Date Date Medication? Clinician (SIG) Name Name insulin 2018-05 Yes [id number] 60U inject 60 Univers regular 0-24 Units ity of human 500 00:00: under the Varinder as unit/mL 00 skin 3 Medical injection (three) Branch times daily before meals. E11. 65 Insulin Yes Each 3 Univers Syringe-Nee 7-03 (three) ity o f dle U-100 1 00:00: times [place] mL 31 gauge 00 daily Medical x 5/16 Syrg before Branch meals. E11.65 insulin 2018-0 Yes [id number] 1{each} 1 Each 3 Univers U-500 5-28 (three) ity of syringe-nee 00:00: times [place] dle 1/2 mL 00 daily Medical 31 gauge x before Branch " Syrg meals. E11.65 metformin 2018-0 Yes [id number] 1000mg Take 2 Univers ER 500 mg 5-28 tablets by ity of 24 hr 00:00: mouth 2 [place] tablet 00 (two) Medical times Branch daily with meals. glimepiride 2018- Yes [id number] 4mg Take 1 Univers 4 mg tablet 5-28 tablet by ity of 00:00: mouth 2 [place] 00 (two) Medical times [place] daily with meals. pravastatin 2018- Yes [id number] 20mg Take 1 Univers 20 mg 5-28 tablet by ity of tablet 00:00: mouth at [place] 00 bedtime. Medical Branch metoprolol Yes 50mg Take 50 mg U nivers tartrate 50 2-01 by mouth 2 it y of mg tablet 17:31: (two) [place] [address] times [facility] daily. Branch lisinopril Yes 40mg Take 40 mg U nivers 40 mg 2-01 by mouth ity of tablet 17:31: daily. [address] amLODIPine Yes 5mg Take 5 mg Un bria 5 mg tablet 2-01 by mouth ity of 17:31: daily. [address] Branch traMADOL 50 2018- Yes [id number] 50mg Take 1 Univers mg tablet 2-01 [id number] tablet by ity of 00:00: mouth 2 [place] 00 (two) Medical times [place] daily as needed for Pain (scale 4-6) or Pain (scale 7-10). hydroCHLORO 2017-05 Yes [id number] 25mg Take 1 Univers thiazide 25 2-14 tablet by ity of mg tablet 00:00: mouth [place] 00 daily. Medical Branch exenatide 2017-05 Yes [id number] 2mg inject 2 Univers microsphere 1-14 mg under ity of s (BYDUREON 00:00: the skin [place] BCISE[place] 2 00 weekly. Medical mg/0.85 mL Branch AtIn amitriptyli 2016-05 Yes 10 mg = 1 M emoria ne 10 mg 2-01 tab, PO, l oral tablet 14:52: Bedtime, 4 Shayy 00 tabs at bedtime for 1 week then 5 tabs at bedtime thereafter , # 150 tab, 2 Refill(s), Pharmacy: [place] [address] diclofenac 2016-05 Yes 75 mg = 1 Me moria sodium 75 2-01 tab, PO, l mg oral 14:52: BID, PRN Gabo n enteric 00 Pain Score coated, 7-10, # 60 delayed-rel tab, 2 ease tablet Refill(s), Pharmacy: [place] [address] Cyclobenzap 2016-05 Yes 10 mg = 1 M emoria rine 2-01 tab, PO, l hydrochlori 14:52: BID, # 60 H ermann de 10 MG 00 tab, 2 Oral Tablet Refill(s), [Flexeril] Pharmacy: [place] [address] amitriptyli 2016-05 Yes 10 mg = 1 M emoria ne 10 mg 2-01 tab, PO, l oral tablet 14:52: Bedtime, 4 [place] 00 tabs at bedtime for 1 week then 5 tabs at bedtime thereafter , # 150 tab, 2 Refill(s), Pharmacy: [place] [address] diclofenac 2016-05 Yes 75 mg = 1 Me moria sodium 75 2-01 tab, PO, l mg oral 14:52: BID, PRN Gabo n enteric 00 Pain Score coated, 7-10, # 60 delayed-rel tab, 2 ease tablet Refill(s), Pharmacy: [place] [address] Cyclobenzap 2016-05 Yes 10 mg = 1 M emoria rine 2-01 tab, PO, l hydrochlori 14:52: BID, # 60 H ermann de 10 MG 00 tab, 2 Oral Tablet Refill(s), [Flexeril] Pharmacy: [place] [address] amitriptyli 2016-05 Yes 10 mg = 1 M emoria ne 10 mg 2-01 tab, PO, l oral tablet 14:52: Bedtime, 4 Shayy 00 tabs at bedtime for 1 week then 5 tabs at bedtime thereafter , # 150 tab, 2 Refill(s), Pharmacy: [place] [address] diclofenac 2016-05 Yes 75 mg = 1 Me moria sodium 75 2-01 tab, PO, l mg oral 14:52: BID, PRN Gabo n enteric 00 Pain Score coated, 7-10, # 60 delayed-rel tab, 2 ease tablet Refill(s), Pharmacy: [place] [address] Cyclobenzap 2016-05 Yes 10 mg = 1 M emoria rine 2-01 tab, PO, l hydrochlori 14:52: BID, # 60 H ermann de 10 MG 00 tab, 2 Oral Tablet Refill(s), [Flexeril] Pharmacy: [place] [address] amitriptyli 2016-05 Yes 10 mg = 1 M emoria ne 10 mg 2-01 tab, PO, l oral tablet 14:52: Bedtime, 4 Shayy 00 tabs at bedtime for 1 week then 5 tabs at bedtime thereafter , # 150 tab, 2 Refill(s), Pharmacy: [place] [address] diclofenac 2016-05 Yes 75 mg = 1 Me moria sodium 75 2-01 tab, PO, l mg oral 14:52: BID, PRN Gabo n enteric 00 Pain Score coated, 7-10, # 60 delayed-rel tab, 2 ease tablet Refill(s), Pharmacy: [place] [address] Cyclobenzap 2016-05 Yes 10 mg = 1 M emoria rine 2-01 tab, PO, l hydrochlori 14:52: BID, # 60 H ermann de 10 MG 00 tab, 2 Oral Tablet Refill(s), [Flexeril] Pharmacy: [place] [address] amitriptyli 2016-05 Yes 10 mg = 1 M emoria ne 10 mg 2-01 tab, PO, l oral tablet 14:52: Bedtime, 4 Shayy 00 tabs at bedtime for 1 week then 5 tabs at bedtime thereafter , # 150 tab, 2 Refill(s), Pharmacy: [place] [address] diclofenac 2016-05 Yes 75 mg = 1 Me moria sodium 75 2-01 tab, PO, l mg oral 14:52: BID, PRN Gabo n enteric 00 Pain Score coated, 7-10, # 60 delayed-rel tab, 2 ease tablet Refill(s), Pharmacy: [place] [address] Cyclobenzap 2016-05 Yes 10 mg = 1 M emoria rine 2-01 tab, PO, l hydrochlori 14:52: BID, # 60 H ermann de 10 MG 00 tab, 2 Oral Tablet Refill(s), [Flexeril] Pharmacy: [place] [address] amitriptyli 2016-05 Yes 10 mg = 1 M emoria ne 10 mg 2-01 tab, PO, l oral tablet 14:52: Bedtime, 4 [place] 00 tabs at bedtime for 1 week then 5 tabs at bedtime thereafter , # 150 tab, 2 Refill(s), Pharmacy: [place] [address] diclofenac 2016-05 Yes 75 mg = 1 Me moria sodium 75 2-01 tab, PO, l mg oral 14:52: BID, PRN Gabo n enteric 00 Pain Score coated, 7-10, # 60 delayed-rel tab, 2 ease tablet Refill(s), Pharmacy: [address] 2016-05 Yes 10 mg = 1 M emoria rine 2-01 tab, PO, l hydrochlori 14:52: BID, # 60 H ermann de 10 MG 00 tab, 2 Oral Tablet Refill(s), [Flexeril] Pharmacy: [place] [address] amitriptyli 2016-05 Yes 10 mg = 1 M emoria ne 10 mg 2-01 tab, PO, l oral tablet 14:52: Bedtime, 4 [place] 00 tabs at bedtime for 1 week then 5 tabs at bedtime thereafter , # 150 tab, 2 Refill(s), Pharmacy: [place] [address] diclofenac 2016-05 Yes 75 mg = 1 Me moria sodium 75 2-01 tab, PO, l mg oral 14:52: BID, PRN Gabo n enteric 00 Pain Score coated, 7-10, # 60 delayed-rel tab, 2 ease tablet Refill(s), Pharmacy: [place] [address] [facility] Yes 10 mg = 1 M emoria rine 2-01 tab, PO, l hydrochlori 14:52: BID, # 60 H ermann de 10 MG 00 tab, 2 Oral Tablet Refill(s), [Flexeril] Pharmacy: [place] [address] amitriptyli 2016-05 Yes 10 mg = 1 M emoria ne 10 mg 2-01 tab, PO, l oral tablet 14:52: Bedtime, 4 [place] 00 tabs at bedtime for 1 week then 5 tabs at bedtime thereafter , # 150 tab, 2 Refill(s), Pharmacy: [facility] diclofenac 2016-05 Yes 75 mg = 1 Me moria sodium 75 2-01 tab, PO, l mg oral 14:52: BID, PRN Gabo n enteric 00 Pain Score coated, 7-10, # 60 delayed-rel tab, 2 ease tablet Refill(s), Pharmacy: [facility] Cyclobenzap 2016-05 Yes 10 mg = 1 M emoria rine 2-01 tab, PO, l hydrochlori 14:52: BID, # 60 H ermann de 10 MG 00 tab, 2 Oral Tablet Refill(s), [Flexeril] Pharmacy: [facility] Lidocaine 2016-05 Yes 3 mL, Memoria Hydrochlori 06-26 Route: l de 10 MG/ML 14:50: SUB-Q, Herm gabriela Injectable 00 Dosing Solution Weight 141.364, kg, ONCE, (Preservat liliana Free), Start date: 04/25/17 8:50:00 FIRE ALARM INSTALLER, Stop date: 04/25/17 8:50:00 FIRE ALARM INSTALLER Omnipaque 2016- Yes 2 mL, Memoria 300 06-26 Route: l 14:50: EPIDURAL, [place] 00 Dosing Weight 141.364, kg, ONCE, (Preservat liliana Free), Start date: 04/25/17 8:50:00 FIRE ALARM INSTALLER, Stop date: 04/25/17 8:50:00 FIRE ALARM INSTALLER Dexamethaso 2016- Yes 8 mg, Memor ia ne 06-26 Route: l 14:50: EPIDURAL, Shayy 00 ONCE, Dosing Weight 141.364, kg, (Preservat liliana Free), Start date: 04/25/17 8:50:00 FIRE ALARM INSTALLER, Stop date: 04/25/17 8:50:00 FIRE ALARM INSTALLER Bupivacaine 2016- Yes 2 mL, Memor ia Hydrochlori 06-26 Route: l de 2.5 14:50: EPIDURAL, Gabo n MG/ML 00 Dosing Injectable Weight Solution 141.364, kg, ONCE, (Preservat liliana Free), Start date: 04/25/17 8:50:00 FIRE ALARM INSTALLER, Stop date: 04/25/17 8:50:00 FIRE ALARM INSTALLER Sodium 2017-1 Yes 4.2 mL, Memoria Chloride 2-01 Route: l 14:50: EPIDURAL, [place] 00 Dosing Weight 141.364, kg, ONCE, (Preservat liliana Free), Start date: 04/25/17 8:50:00 FIRE ALARM INSTALLER, Stop date: 04/25/17 8:50:00 FIRE ALARM INSTALLER Lidocaine 2017-1 Yes 3 mL, Memoria Hydrochlori 2-01 Route: l de 10 MG/ML 14:50: SUB-Q, Herm gabriela Injectable 00 Dosing Solution Weight 141.364, kg, ONCE, (Preservat liliana Free), Start date: 04/25/17 8:50:00 FIRE ALARM INSTALLER, Stop date: 04/25/17 8:50:00 FIRE ALARM INSTALLER Omnipaque 2017-1 Yes 2 mL, Memoria 300 2-01 Route: l 14:50: EPIDURAL, [place] 00 Dosing Weight 141.364, kg, ONCE, (Preservat liliana Free), Start date: 04/25/17 8:50:00 FIRE ALARM INSTALLER, Stop date: 04/25/17 8:50:00 FIRE ALARM INSTALLER Dexamethaso 2017-1 Yes 8 mg, Memor ia ne 2-01 Route: l 14:50: EPIDURAL, Shayy 00 ONCE, Dosing Weight 141.364, kg, (Preservat liliana Free), Start date: 04/25/17 8:50:00 FIRE ALARM INSTALLER, Stop date: 04/25/17 8:50:00 FIRE ALARM INSTALLER Bupivacaine 2017-1 Yes 2 mL, Memor ia Hydrochlori 2-01 Route: l de 2.5 14:50: EPIDURAL, Gabo n MG/ML 00 Dosing Injectable Weight Solution 141.364, kg, ONCE, (Preservat liliana Free), Start date: 04/25/17 8:50:00 FIRE ALARM INSTALLER, Stop date: 04/25/17 8:50:00 FIRE ALARM INSTALLER Sodium 2017-1 Yes 4.2 mL, Memoria Chloride 2-01 Route: l 14:50: EPIDURAL, [place] 00 Dosing Weight 141.364, kg, ONCE, (Preservat liliana Free), Start date: 04/25/17 8:50:00 FIRE ALARM INSTALLER, Stop date: 04/25/17 8:50:00 FIRE ALARM INSTALLER Lidocaine 2017- Yes 3 mL, Memoria Hydrochlori 2- Route: l de 10 MG/ML 14:50: SUB-Q, Herm gabriela Injectable 00 Dosing Solution Weight 141.364, kg, ONCE, (Preservat liliana Free), Start date: 04/25/17 8:50:00 FIRE ALARM INSTALLER, Stop date: 04/25/17 8:50:00 FIRE ALARM INSTALLER Omnipaque 2017- Yes 2 mL, Memoria 300 2- Route: l 14:50: EPIDURAL, [place] 00 Dosing Weight 141.364, kg, ONCE, (Preservat liliana Free), Start date: 04/25/17 8:50:00 FIRE ALARM INSTALLER, Stop date: 04/25/17 8:50:00 FIRE ALARM INSTALLER Dexamethaso 2017- Yes 8 mg, Memor ia ne - Route: l 14:50: EPIDURAL, [place] 00 ONCE, Dosing Weight 141.364, kg, (Preservat liliana Free), Start date: 04/25/17 8:50:00 FIRE ALARM INSTALLER, Stop date: 04/25/17 8:50:00 FIRE ALARM INSTALLER Bupivacaine 2017- Yes 2 mL, Memor ia Hydrochlori - Route: l de 2.5 14:50: EPIDURAL, Gabo n MG/ML 00 Dosing Injectable Weight Solution 141.364, kg, ONCE, (Preservat liliana Free), Start date: 04/25/17 8:50:00 FIRE ALARM INSTALLER, Stop date: 04/25/17 8:50:00 FIRE ALARM INSTALLER Sodium 2017-1 Yes 4.2 mL, Memoria Chloride 2- Route: l 14:50: EPIDURAL, [place] 00 Dosing Weight 141.364, kg, ONCE, (Preservat liliana Free), Start date: 04/25/17 8:50:00 FIRE ALARM INSTALLER, Stop date: 04/25/17 8:50:00 FIRE ALARM INSTALLER Lidocaine 2017- Yes 3 mL, Memoria Hydrochlori 2- Route: l de 10 MG/ML 14:50: SUB-Q, Herm gabriela Injectable 00 Dosing Solution Weight 141.364, kg, ONCE, (Preservat liliana Free), Start date: 04/25/17 8:50:00 FIRE ALARM INSTALLER, Stop date: 04/25/17 8:50:00 FIRE ALARM INSTALLER Omnipaque 2017- Yes 2 mL, Memoria 300 2-01 Route: l 14:50: EPIDURAL, [place] 00 Dosing Weight 141.364, kg, ONCE, (Preservat liliana Free), Start date: 04/25/17 8:50:00 FIRE ALARM INSTALLER, Stop date: 04/25/17 8:50:00 FIRE ALARM INSTALLER Dexamethaso 2017-1 Yes 8 mg, Memor ia ne 2- Route: l 14:50: EPIDURAL, [place] 00 ONCE, Dosing Weight 141.364, kg, (Preservat liliana Free), Start date: 04/25/17 8:50:00 FIRE ALARM INSTALLER, Stop date: 04/25/17 8:50:00 FIRE ALARM INSTALLER Bupivacaine 2017-1 Yes 2 mL, Memor ia Hydrochlori 2- Route: l de 2.5 14:50: EPIDURAL, Gabo n MG/ML 00 Dosing Injectable Weight Solution 141.364, kg, ONCE, (Preservat liliana Free), Start date: 04/25/17 8:50:00 FIRE ALARM INSTALLER, Stop date: 04/25/17 8:50:00 FIRE ALARM INSTALLER Sodium 2017-1 Yes 4.2 mL, Memoria Chloride 2- Route: l 14:50: EPIDURAL, Shayy 00 Dosing Weight 141.364, kg, ONCE, (Preservat liliana Free), Start date: 04/25/17 8:50:00 FIRE ALARM INSTALLER, Stop date: 04/25/17 8:50:00 FIRE ALARM INSTALLER Lidocaine 2017-1 Yes 3 mL, Memoria Hydrochlori 2- Route: l de 10 MG/ML 14:50: SUB-Q, Herm gabriela Injectable 00 Dosing Solution Weight 141.364, kg, ONCE, (Preservat liliana Free), Start date: 04/25/17 8:50:00 FIRE ALARM INSTALLER, Stop date: 04/25/17 8:50:00 FIRE ALARM INSTALLER Omnipaque 2017-1 Yes 2 mL, Memoria 300 2-01 Route: l 14:50: EPIDURAL, Shayy 00 Dosing Weight 141.364, kg, ONCE, (Preservat liliana Free), Start date: 04/25/17 8:50:00 FIRE ALARM INSTALLER, Stop date: 04/25/17 8:50:00 FIRE ALARM INSTALLER Dexamethaso 2017- Yes 8 mg, Memor ia ne 2- Route: l 14:50: EPIDURAL, [place] 00 ONCE, Dosing Weight 141.364, kg, (Preservat liliana Free), Start date: 04/25/17 8:50:00 FIRE ALARM INSTALLER, Stop date: 04/25/17 8:50:00 FIRE ALARM INSTALLER Bupivacaine 2017-1 Yes 2 mL, Memor ia Hydrochlori 2- Route: l de 2.5 14:50: EPIDURAL, Gabo n MG/ML 00 Dosing Injectable Weight Solution 141.364, kg, ONCE, (Preservat liliana Free), Start date: 04/25/17 8:50:00 FIRE ALARM INSTALLER, Stop date: 04/25/17 8:50:00 FIRE ALARM INSTALLER Sodium 2017-1 Yes 4.2 mL, Memoria Chloride 2- Route: l 14:50: EPIDURAL, Shayy 00 Dosing Weight 141.364, kg, ONCE, (Preservat liliana Free), Start date: 04/25/17 8:50:00 FIRE ALARM INSTALLER, Stop date: 04/25/17 8:50:00 FIRE ALARM INSTALLER Lidocaine 2017- Yes 3 mL, Memoria Hydrochlori 2- Route: l de 10 MG/ML 14:50: SUB-Q, Herm gabriela Injectable 00 Dosing Solution Weight 141.364, kg, ONCE, (Preservat liliana Free), Start date: 04/25/17 8:50:00 FIRE ALARM INSTALLER, Stop date: 04/25/17 8:50:00 FIRE ALARM INSTALLER Omnipaque 2017-1 Yes 2 mL, Memoria 300 2-01 Route: l 14:50: EPIDURAL, [place] 00 Dosing Weight 141.364, kg, ONCE, (Preservat liliana Free), Start date: 04/25/17 8:50:00 FIRE ALARM INSTALLER, Stop date: 04/25/17 8:50:00 FIRE ALARM INSTALLER Dexamethaso 2017-1 Yes 8 mg, Memor ia ne 2-01 Route: l 14:50: EPIDURAL, [place] 00 ONCE, Dosing Weight 141.364, kg, (Preservat liliana Free), Start date: 04/25/17 8:50:00 FIRE ALARM INSTALLER, Stop date: 04/25/17 8:50:00 FIRE ALARM INSTALLER Bupivacaine 2017-1 Yes 2 mL, Memor ia Hydrochlori 2-01 Route: l de 2.5 14:50: EPIDURAL, Gabo n MG/ML 00 Dosing Injectable Weight Solution 141.364, kg, ONCE, (Preservat liliana Free), Start date: 04/25/17 8:50:00 FIRE ALARM INSTALLER, Stop date: 04/25/17 8:50:00 FIRE ALARM INSTALLER Sodium 2017-1 Yes 4.2 mL, Memoria Chloride 2-01 Route: l 14:50: EPIDURAL, [place] 00 Dosing Weight 141.364, kg, ONCE, (Preservat liliana Free), Start date: 04/25/17 8:50:00 FIRE ALARM INSTALLER, Stop date: 04/25/17 8:50:00 FIRE ALARM INSTALLER Lidocaine 2017- Yes 3 mL, Memoria Hydrochlori 2-01 Route: l de 10 MG/ML 14:50: SUB-Q, Herm gabriela Injectable 00 Dosing Solution Weight 141.364, kg, ONCE, (Preservat liliana Free), Start date: 04/25/17 8:50:00 FIRE ALARM INSTALLER, Stop date: 04/25/17 8:50:00 FIRE ALARM INSTALLER Omnipaque 2017-1 Yes 2 mL, Memoria 300 2- Route: l 14:50: EPIDURAL, [place] 00 Dosing Weight 141.364, kg, ONCE, (Preservat liliana Free), Start date: 04/25/17 8:50:00 FIRE ALARM INSTALLER, Stop date: 04/25/17 8:50:00 FIRE ALARM INSTALLER Dexamethaso 2017- Yes 8 mg, Memor ia ne 2-01 Route: l 14:50: EPIDURAL, Shayy 00 ONCE, Dosing Weight 141.364, kg, (Preservat liliana Free), Start date: 04/25/17 8:50:00 FIRE ALARM INSTALLER, Stop date: 04/25/17 8:50:00 FIRE ALARM INSTALLER Bupivacaine 2017-1 Yes 2 mL, Memor ia Hydrochlori 2-01 Route: l de 2.5 14:50: EPIDURAL, Gabo n MG/ML 00 Dosing Injectable Weight Solution 141.364, kg, ONCE, (Preservat liliana Free), Start date: 04/25/17 8:50:00 FIRE ALARM INSTALLER, Stop date: 04/25/17 8:50:00 FIRE ALARM INSTALLER Sodium 2017-1 Yes 4.2 mL, Memoria Chloride 2-01 Route: l 14:50: EPIDURAL, Shayy 00 Dosing Weight 141.364, kg, ONCE, (Preservat liliana Free), Start date: 04/25/17 8:50:00 FIRE ALARM INSTALLER, Stop date: 04/25/17 8:50:00 FIRE ALARM INSTALLER Sodium 2017-1 Yes 4.2 mL, Memoria Chloride 2- Route: l 14:50: EPIDURAL, [place] 00 Dosing Weight 141.364, kg, ONCE, (Preservat liliana Free), Start date: 04/25/17 8:50:00 FIRE ALARM INSTALLER, Stop date: 04/25/17 8:50:00 FIRE ALARM INSTALLER Lidocaine 2017- Yes 3 mL, Memoria Hydrochlori 2- Route: l de 10 MG/ML 14:50: SUB-Q, Herm gabriela Injectable 00 Dosing Solution Weight 141.364, kg, ONCE, (Preservat liliana Free), Start date: 04/25/17 8:50:00 FIRE ALARM INSTALLER, Stop date: 04/25/17 8:50:00 FIRE ALARM INSTALLER Omnipaque 2017- Yes 2 mL, Memoria 300 2- Route: l 14:50: EPIDURAL, [place] 00 Dosing Weight 141.364, kg, ONCE, (Preservat liliana Free), Start date: 04/25/17 8:50:00 FIRE ALARM INSTALLER, Stop date: 04/25/17 8:50:00 FIRE ALARM INSTALLER Dexamethaso 2017- Yes 8 mg, Memor ia ne 2- Route: l 14:50: EPIDURAL, Shayy 00 ONCE, Dosing Weight 141.364, kg, (Preservat liliana Free), Start date: 04/25/17 8:50:00 FIRE ALARM INSTALLER, Stop date: 04/25/17 8:50:00 FIRE ALARM INSTALLER Bupivacaine 2017- Yes 2 mL, Memor ia Hydrochlori 2- Route: l de 2.5 14:50: EPIDURAL, Gabo n MG/ML 00 Dosing Injectable Weight Solution 141.364, kg, ONCE, (Preservat liliana Free), Start date: 04/25/17 8:50:00 FIRE ALARM INSTALLER, Stop date: 04/25/17 8:50:00 FIRE ALARM INSTALLER cyclobenzap cyclobenzap No cyclobenza [facility] rine 10 [...] with with applicator applicator [place] [address] [place] [address] [place] [address] APPLY TO APPLY TO APPLY TO AFFECTED [...] with with with applicator applicator applicator ANTWAN, [place], [place] [address] [place] [address] [place] [address] APPLY TO APPLY TO APPLY TO AFFECTED [...] with with applicator applicator applicator ANTWAN MON[place]ADA, [place] [address] [place] [address] [place] [address] APPLY TO APPLY TO APPLY TO AFFECTED [...] solution with with with applicator applicator applicator [place], [place], [place] [address] [place] [address] [place] [address] APPLY TO APPLY TO APPLY TO AFFECTED [...] TIMES A DAY naproxen naproxen No naproxen Candiec via 500 mg 500 mg 500 mg [...] 31 gauge mL 31 x 1564" x " gauge x USE USE " [...] with with applicator applicator applicator [place]TW[place], [place] [address] [place] [address] [place] [address] APPLY TO APPLY TO APPLY TO AFFECTED [...] Immunizations Ordered Filled Immunization Date Status Comments [facility] e Immunization Name Name SARS-COV-2 COVID-19 2021-04-12 Completed [facility] of PFIZER VACCINE 00:00:00 [facility] SARS-COV-2 COVID-19 2020-08-24 Completed [facility] rs[facility] of PFIZER VACCINE 00:00:00 [facility] SARS-COV-2 COVID-19 2020-08-03 Completed [facility]ive rs[facility] of PFIZER VACCINE 00:00:00 [facility] Influenza Virus 2018-06-26 Completed [facility] .5 mL 00:00:00 [facility] 6+ [place] Vital Signs Vital Name Observation Time Observation Value Comments Source BP Diastolic 2022-04-11 00:00:00 70 mm[Hg] Rudi pereira Height 2022-04-11 00:00:00 70 [in_i] Rudi Polo edical BMI (Body Mass Index) 2022-04-11 00:00:00 49.5 kg/m2 [facility] BP Systolic 2022-04-11 00:00:00 130 mm[Hg] Rudi Polo edical Body Weight 2022-04-11 00:00:00 345 [lb_av] Rudi Polo edical BP Diastolic 2021-09-24 00:00:00 60 mm[Hg] Rudi Polo edical Height 2021-09-24 00:00:00 70 [in_i] Rudi Polo edical BMI (Body Mass Index) 2021-09-24 00:00:00 46.9 kg/m2 [facility] BP Systolic 2021-09-24 00:00:00 140 mm[Hg] [...] edical Height 2017-06-05 17:46:00 177.8 cm [facility] Weight 2017-06-05 17:46:00 [facility] BMI Calculated 2017-06-05 17:46:00 [facility] [place] Systolic (mm Hg) 2017-06-05 17:46:00 Chuck mariaelena [place] Diastolic (mm Hg) 2017-06-05 17:46:00 Mem [facility] [place] Temperature Oral (F) 2017-06-05 17:46:00 99.3 F [facility] Heart Rate 2017-06-05 17:46:00 [facility] BMI Calculated 2017-04-29 15:23:00 [facility] Weight 2017-04-29 15:23:00 [facility] Height 2017-04-29 15:23:00 177.8 cm [facility] Heart Rate 2017-04-29 15:00:00 [facility] [place] Respitory Rate 2017-04-29 15:00:00 [facility] [place] Systolic (mm Hg) 2017-04-29 15:00:00 Chuck rial [place] Diastolic (mm Hg) 2017-04-29 15:00:00 Mem orial [place] Procedures Procedure Date / Time Performing Clinician Source Performed SARS-COV-2 COVID-19 2021-04-12 22:54:16 Doctor Unassigned, No [facility] [place] VACCINE,0.3ML,IM Name [facility] ([employer]) Drainage of Skin 2019-11-02 00:00:00 [facility] Abscess Myelography via lumbar 2017-04-29 16:14:00 Memor ial [place] injection, including radiological supervision and interpretation; thoracic Myelography via lumbar 2017-04-29 16:14:00 [facility]or [facility] [place] injection, including radiological supervision and interpretation; lumbosacral NJX INTERLAMINAR 2017-04-25 14:50:00 [facility] LMBR/SA Ear operations [facility] Lumbar epidural [facility] injection Lumbar epidural steroid [facility] injection Nose operation [facility] Operation [facility] Plan of Care Planned Activity Planned Date Details Comments Source Diagnostic Test Pending 2022-04-11 00:00:00 glucose, [facility] fingerstick, blood [code = glucose, fingerstick, blood] Encounters Start End Encounter Admission Attending Care Care Encounter Source Date/Time Date/Time Type Type Clinicians Facility Department ID 2022-11-08 2022-11-08 Outpatient GC_EDEC_Hay PRIV PRIV [id number] [facility] 00:00:00 00:00:00 es_A [id number] [facility] 2022-10-09 2022-10-09 Outpatient GC_EDEC_Hay PRIV PRIV [id number] [facility] 00:00:00 00:00:00 es_A [id number] [facility] 2022-10-07 2022-10-07 Outpatient GC_EDEC_Hay PRIV PRIV [id number] [facility] 00:00:00 00:00:00 es_A [id number] [facility] 2022-07-15 2022-07-15 Outpatient GC_EDEC_Hay PRIV PRIV [id number] [facility] 00:00:00 00:00:00 es_A [id number] [facility] 2022-07-15 2022-07-15 Outpatient GC_EDEC_Hay PRIV PRIV [id number] [facility] 00:00:00 00:00:00 es_A [id number] Medica l 2022-07-15 2022-07-15 Tocurra [facility]IV [facility] 00:00:00 00:00:00 [facility] Vahe, GC_EDEC_Pas CLERICAL OFFICE-DIRECTOR STRATEGY-C: terri Kelsey43 Office* [facility] [address], [place] [address] , Ph. 2022-07-14 2022-07-14 Outpatient GC_EDEC_Hay PRIV PRIV [id number] [facility] 00:00:00 00:00:00 es_A [id number] Medica l 2022-04-11 2022-04-11 Outpatient GC_EDEC_Hay PRIV PRIV [id number] [facility] 00:00:00 00:00:00 es_A [id number] Medica l 2022-04-11 2022-04-11 Tocurra [facility]IV [facility] [id number] [facility] 00:00:00 00:00:00 [facility] Cotter, GC_EDEC_Pas CLERICAL OFFICE-DIRECTOR STRATEGY-C: terri Kelsey43 Office* [facility] [address], [place] [address] , Ph. 2022-04-10 2022-04-10 Outpatient GC_EDEC_Hay PRIV PRIV [id number] [facility] 00:00:00 00:00:00 es_A [id number] Medica l 2022-01-04 2022-01-04 Outpatient GC_EDEC_Hay PRIV PRIV [id number] [facility] 00:00:00 00:00:00 es_A [id number] Medica l 2021-12-31 2021-12-31 Outpatient GC_EDEC_Hay PRIV PRIV [id number] [facility] 00:00:00 00:00:00 es_A [id number] Medica l 2021-09-24 2021-09-24 Outpatient GC_EDEC_Hay PRIV PRIV [id number] [facility] 11:24:00 11:24:00 es_A [id number] Medica l 2021-09-24 2021-09-24 Outpatient Kit PRIV PRIV [id number] 00:00:00 00:00:00 Ellen [id number] [facility] [id number] 2021-09-24 2021-09-24 Ellen PRIV NM - [facility] 00:00:00 00:00:00 [facility] MD Kit: GC_EDEC_Pas [address] [facility] Office* [address], [place] [address] , Ph. 2021-09-20 2021-09-20 Outpatient GC_EDEC_Hay PRIV PRIV [id number] [facility] 03:44:00 03:44:00 es_A [id number] Medica l 2021-04-12 2021-04-12 Outpatient Florencio SLOAN [facility] [id number] Univers 16:30:00 16:30:00 PAUL simon [facility] 2021-04-12 2021-04-12 Imm/Inj Nurse, Adc Pob Immunization [facility] [id number] Univers 16:14:33 16:14:42 Visit Paul Sloan 350.1.13 .10 [facility] [id number] Elizabeth BENJAMIN [phone] [place] [address] 2021-01-16 2021-01-16 Outpatient GC_EDEC_Hay PRIV PRIV [id number] [facility] 07:11:00 07:11:00 es_A [id number] Medica l 2020-09-25 2020-09-25 Outpatient GC_EDEC_Hay PRIV PRIV [id number] [facility] 02:20:00 02:20:00 es_A [id number] Medica l 2020-09-19 2020-09-19 Outpatient GC_EDEC_Hay PRIV PRIV [id number] [facility] 02:41:00 02:41:00 es_A [id number] Medica l 2020-09-13 2020-09-13 Outpatient GC_EDEC_Hay PRIV PRIV [id number] [facility] 06:01:00 06:01:00 es_A [id number] Medica l 2020-09-13 2020-09-13 Outpatient Kit PRIV PRIV [id number] 00:00:00 00:00:00 Ellen [id number] [facility] [id number] 2020-09-13 2020-09-13 Ellen PRIV [facility] 21 [facility] 00:00:00 00:00:00 [facility] - Medic kaila Pantoja MD: GC_EDEC_Pas [address] [facility] Office* [address], [facility] [address], [place] [address] , Ph. 2020-09-11 2020-09-11 Outpatient GC_EDEC_Hay PRIV PRIV [id number] [facility] 12:06:00 12:06:00 es_A [id number] Medica l 2020-09-06 2020-09-06 Outpatient GC_EDEC_Hay PRIV PRIV [id number] [facility] 06:40:00 06:40:00 es_A [id number] Medica l 2020-08-24 2020-08-24 Outpatient Florencio SARMIENTO, [facility] [id number] Univers 14:40:00 14:40:00 JAZMIN [facility] 2020-08-03 2020-08-03 Outpatient [facility] [id number] Univers 14:40:00 14:40:00 [facility] 2020-02-08 2020-02-08 Inpatient PILI Radha, [facility] DAYS [id number] 08:00:00 08:00:00 Neel 42 [facility] 2020-02-02 2020-02-02 Outpatient CHINO MASON [facility] [id number] Univers 11:30:00 11:30:00 [facility] 2020-02-02 2020-02-02 Laboratory Only, Adc [facility] [id number] 11:14:48 11:29:48 Only Test Yesica [id number] Dottie 4.2.7.2.686 [place] [id number] 2020-02-02 2020-02-02 Orders Doctor DULCE [id number] 00:00:00 00:00:00 Only Unassigned, KIMBERLY [id number] [facility] 4.2.7.2.686 [id number] 2020-01-05 2020-01-05 Telephone Atkins, [facility] [id number] 00:00:00 00:00:00 [place] [id number] [place] 4.2.7.2.686 Professio [phone] [address] 2019-06-16 2019-06-16 Telephone Atkins, [facility] [id number] 00:00:00 00:00:00 [place] [id number] [place] 4.2.7.2.686 Professio [phone] 2019-06-09 2019-06-09 Telephone Atkins, [facility] [id number] 00:00:00 00:00:00 [place] [id number] [place] 4.2.7.2.686 Professio [phone] [address] 2019-02-10 2019-02-10 Telephone Atkins, [facility] [id number] 00:00:00 00:00:00 [place] [id number] [place] 4.2.7.2.[address] Professio [phone] 2018-12-13 2018-12-13 Orders Doctor DULCE [id number] 00:00:00 00:00:00 Only Unassigned, [place]IMBER[place] [id number] [facility] 4.2.7.2.686 [id number] 2018-11-27 2018-11-27 Refill Atkins, [facility] [id number] 00:00:00 00:00:00 [place] 350.1.13.10 [place] 4.2.7.2.[phone] 2017-12-04 2017-12-04 Ambulatory nullFlavo [facility] [id number] [facility] 15:30:00 15:30:00 Pre-Reg r Clinic [facility] 07 [facility] 2017-12-04 2017-12-04 Ambulatory nullFlavo [facility] [id number] [facility] 15:30:00 15:30:00 Pre-Reg r Clinic [address] 2017-12-04 2017-12-04 Outpatient MHIE MHIE [id number] [facility] 10:30:00 10:30:00 07 [facility] 2017-12-04 2017-12-04 Outpatient Dulce Lau [facility] M[facility] [id number] 10:30:00 10:30:00 [facility] 2017-06-06 2017-06-08 Phone nullFlavo [facility] [id number] [facility] 20:31:00 05:59:59 Message r Clinic [address] 2017-06-06 2017-06-08 Phone nullFlavo [facility] [id number] [facility] 20:31:00 05:59:59 Message r Clinic [facility] 09 [facility] 2017-06-06 2017-06-07 Outpatient MHMISCHER MHMISCHER [id number] 14:31:00 23:59:59 09 2017-06-06 2017-06-07 Outpatient MHMISCHER MHMISCHER [id number] 14:31:00 23:59:59 2017-06-05 2017-06-06 Outpatient nullFlavo [facility] [id number] [facility] 17:30:00 05:59:59 r Clinic [address] 2017-06-05 2017-06-06 Outpatient nullFlavo [facility] [id number] [facility] 17:30:00 05:59:59 r Clinic [address] 2017-06-05 2017-06-05 Outpatient Dulce Lau MHMISCHER MHMISCHER [id number] 11:30:00 23:59:59 C 2017-06-05 2017-06-05 Outpatient Dulce Lau MHMISCHER MHMISCHER [id number] 11:30:00 23:59:59 C 2017-06-05 2017-06-05 Outpatient MHIE MHIE [id number] [facility] 11:30:00 11:30:00 05 [facility] 2017-04-30 2017-05-02 Phone nullFlavo [facility] [id number] [facility] 17:52:00 05:59:59 Message r Clinic TM 08 [facility] 2017-04-30 2017-05-02 Phone nullFlavo [facility] [id number] [facility] 17:52:00 05:59:59 Message r Clinic [facility] 08 [facility] 2017-04-30 2017-05-01 Outpatient MHMISCHER MHMISCHER [id number] 11:52:00 23:59:59 2017-04-29 2017-04-30 Outpatient nullFlavo [facility] [id number] [facility] 14:20:00 05:59:00 [facility] 00 [facility] 2017-04-29 2017-04-30 Outpatient nullFlavo [facility] [id number] [facility] 14:20:00 05:59:00 [facility] 00 [facility] 2017-04-29 2017-04-29 Outpatient Dulce Lau [facility] [id number] 08:20:00 23:59:00 2017-04-25 2017-04-26 Outpatient nullFlavo [facility] [id number] [facility] 14:00:00 05:59:59 r Clinic [facility] 06 [facility] 2017-04-25 2017-04-26 Outpatient nullFlavo [facility] [id number] [facility] 14:00:00 05:59:59 r Clinic [facility] 06 [facility] 2017-04-24 2017-04-26 Phone nullFlavo [facility] [id number] [facility] 22:30:00 05:59:59 Message r Clinic TM 07 [facility] 2017-04-24 2017-04-26 Phone nullFlavo [facility] [id number] [facility] 22:30:00 05:59:59 Message r Clinic TM 07 [facility] 2017-04-24 2017-04-26 Phone nullFlavo [facility] [id number] [facility] 22:27:00 05:59:59 Message r Clinic TM 06 [facility] 2017-04-24 2017-04-26 Phone nullFlavo [facility] [id number] [facility] 22:27:00 05:59:59 Message r [facility] 06 [facility] 2017-04-25 2017-04-25 Outpatient Edin, MHMISCHER MHMISCHER [id number] 08:00:00 23:59:59 Camacho Cook 06 2017-04-24 2017-04-25 Outpatient MHMISCHER MHMISCHER [id number] 16:30:00 23:59:59 07 2017-04-24 2017-04-25 Outpatient MHMISCHER MHMISCHER [id number] 16:27:00 23:59:59 06 2017-04-25 2017-04-25 Outpatient MHIE MHIE [id number] [facility] 08:00:00 08:00:00 06 [facility] 2017-04-04 2017-04-04 Outpatient MHIE MHIE [id number] [facility] 13:00:00 13:00:00 04 [facility] 2017-04-04 2017-04-04 Outpatient MHIE MHIE [id number] [facility] 13:00:00 13:00:00 04 [facility] 2017-03-19 2017-03-20 Outpatient nullFlavo [facility] [id number] [facility] 15:22:00 04:59:[address] 2017-03-19 2017-03-20 Outpatient nullFlavo [facility] [id number] [facility] 15:22:00 04:59:[address] 2017-03-19 2017-03-19 Outpatient Manjinder Kowalski [facility] [id number] 10:22:00 23:59:00 Vandana 2017-03-19 2017-03-19 Outpatient MHIE MHIE [id number] [facility] 08:45:00 08:45:00 03 [facility] 2017-03-19 2017-03-19 Outpatient MHIE MHIE [id number] [facility] 08:45:00 08:45:00 03 [facility] 2017-03-19 2017-03-19 Outpatient MHIE MHIE [id number] [facility] 07:45:00 07:45:00 02 [facility] 2017-03-19 2017-03-19 Outpatient MHIE MHIE [id number] [facility] 07:45:00 07:45:00 02 [facility] 2016-09-04 2016-09-04 Outpatient MHJESS CHRISTENSEN [id number] [facility] 07:45:00 07:45:00 01 marga Shay[facility] 2016-09-04 2016-09-04 Outpatient AMPARO CHRISTENSEN [id number] [facility] 07:45:00 07:45:00 01 marga [place] 2016-08-19 2016-08-19 Outpatient AMPARO CHRISTENSEN [id number] [facility] 10:30:00 10:30:00 00 marga [place] 2016-08-19 2016-08-19 Outpatient AMPARO CHRISTENSEN [id number] [facility] 10:30:00 10:30:00 00 marga [place] Results Test Description Test Time Test Comments Results Result Comments Source COAGULATION TIME ACTIVATED 2023-01-31 06:57:00 Test Item Value Reference Range Interpretation Comme nts COAGULATION TIME ACTIVATED (test 266 SECONDS Performed by certified cane flume chute operator code = ACT) at [facility] COAGULATION TIME [id number] 06:57:00 Test Item Value Reference Range Interpretation Comments COAGULATION TIME 232 SECONDS Performed b y ACTIVATED (test code = certi fied cane flume chute operator ACT) at [facility] COAGULATION TIME [id number] 06:57:00 Test Item Value Reference Range Interpretation Comments COAGULATION TIME 208 SECONDS Performed b y ACTIVATED (test code = certi fied cane flume chute operator ACT) at [facility] GLUCOSE [id number] 20:59:00 Test Item Value Reference Range Interpretation Comments GLUCOSE BEDSIDE (test 123 MG/DL 70-110 H Perfor med by certified code = GLUBED) cane flume chute operator at [facility] GLUCOSE [id number] 09:06:00 Test Item Value Reference Range Interpretation Comments GLUCOSE BEDSIDE (test 98 MG/DL 70-110 N Perfor med by certified code = GLUBED) cane flume chute operator at [facility] PROTHROMBIN [id number] 15:53:00 Test Item Value Reference Range Interpretation Comments PROTHROMBIN TIME 11.5 SECONDS 9.3-12.9 N PATIENT (test code = PTP) INTERNATIONAL NORMAL 1.0 0.8-1.2 N TARGET INR BY RATIO (test code = INDICATIO N Indication INR) INR1. Prophylax is of venous thrombos is 2.0 - 3.0 (orthoped ic surgery), Proph ylaxis of venous throm bosis (other than hig h-risk surgery), Treat ment of Deep Vein Thrombosis/Pulm onary Embolism, Preve ntion of systemic emb olism - Tissue heart va lves, Acute Myocardia l Infarction (to prevent systemic emboli sm), Valvular heart disease, Atrial Fibrillation, Bileaflet mecha nical valve in aortic position.2. Mec hanical prosthetic valv es (high risk), 2. 5 - 3.5 Presence of Lup us Anticoagulant o r Antiphospholipi d Antibodies, Pre vention of systemic emb olism - Acute Myocardia l Infarction (to prevent recurrent infar ct). BASIC METABOLIC [id number] 15:37:00 Test Item Value Reference Range Interpretation Comments SODIUM (test code = 138 mEq/L 134-147 N NA) POTASSIUM (test code 4.2 mEq/L 3.4-5.0 N = K) CHLORIDE (test code 106 mEq/L 100-108 N = CL) CARBON DIOXIDE (test 29 mEq/l 21-33 N code = CO2) ANION GAP (test code 8 0-20 N = GAP) GLUCOSE (test code = 98 mg/dL 77-141 N NOTE: N EW NORMAL RANGE GLU) BLOOD UREA NITROGEN 17 mg/dL 7-25 N NOTE: NE W NORMAL RANGE (test code = BUN) GLOMERULAR 87.8 90-95 L The Glomerular FILTRATION RATE Filtration R ate is a (test code = GFR) calculated parameterbased on serum Creatinine, pat ient age and sex. GFR va luesless than 60 mL/min/ 1.73 square meters a re indicative ofCh ronic Kidney Disease. Values less than 15 mL/min/1.73squa re meters indicate Kidney failure. The calculation forGFR is based on the CKD-EPI (2020) calculat ion. This formulais race indifferent and is the recommended for tiffanie for GFRby the [facility] on for Adults.The GFR will not calculate if th e sex is unknown or if thepatient's ag e is <18 years. CREATININE (test 1.0 mg/dL 0.6-1.3 N code = CREAT) CALCIUM (test code = 9.0 mg/dL 8.0-10.5 N CA) CBC W/AUTO [id number] 15:25:00 Test Item Value Reference Range Interpretation Comments WHITE BLOOD CELL (test code = 6.3 x10 3/uL 4.5-11.0 N WBC) RED BLOOD CELL (test code = 4.08 x10 6/uL 4.00-5.60 N RBC) HEMOGLOBIN (test code = HGB) 11.1 g/dL 12.5-16.9 L HEMATOCRIT (test code = HCT) 35.0 % 37.5-50.7 L MEAN CELL VOLUME (test code = 85.8 fL 81.0-99.0 N MCV) MEAN CELL HGB (test code = MCH) 27.2 pg 27.0-33.0 N MEAN CELL HGB CONCETRATION 31.7 g/dL 33.0-37.0 L (test code = MCHC) RED CELL DISTRIBUTION WIDTH CV 14.7 % 11.5-14.5 H (test code = RDW) RED CELL DISTRIBUTION WIDTH SD 46.2 fL 37.0-54.0 N (test code = RDW-SD) PLATELET COUNT (test code = 185 x10 3/uL 150-400 N PLT) MEAN PLATELET VOLUME (test code 10.2 fL 7.0-9.0 H = MPV) NEUTROPHIL % (test code = NT%) 64.7 % 56.0-77.0 N IMMATURE GRANULOCYTE % (test 0.5 % 0.0-2.0 N code = IG%) LYMPHOCYTE % (test code = LY%) 22.8 % 14.0-32.0 N MONOCYTE % (test code = MO%) 7.2 % 4.8-9.0 N EOSINOPHIL % (test code = EO%) 4.0 % 0.3-3.7 H BASOPHIL % (test code = BA%) 0.8 % 0.0-2.0 N NUCLEATED RBC % (test code = 0.0 % 0-0 N NRBC%) NEUTROPHIL # (test code = NT#) 4.07 x10 3/uL 2.0-7.6 N IMMATURE GRANULOCYTE # (test 0.03 x10 3/uL 0.00-0.03 N code = IG#) LYMPHOCYTE # (test code = LY#) 1.43 x10 3/uL 1.0-3.8 N MONOCYTE # (test code = MO#) 0.45 x10 3/uL 0.1-0.8 N EOSINOPHIL # (test code = EO#) 0.25 x10 3/uL 0.0-0.2 H BASOPHIL # (test code = BA#) 0.05 x10 3/uL 0.0-0.2 N NUCLEATED RBC # (test code = 0.00 x10 3/uL 0.0-0.1 N NRBC#) MANUAL DIFF REQUIRED (test code NO = ZEENAT) - XR CHEST 2 [id number] 00:00:00 Name: ROBBIN OSORIO : 1965 Sex: M FAX: Neel Ruvalcaba MD [phone] [place]: St: PRE Name: ROBBIN OSORIO [facility] : 1965 Age/S: 57/M [address] [facility] Unit #: [id number] Loc: [place] [address] Phys: Neel Garcia MD Acct: [id number] Dis Date: Status: PRE [facility] PHONE #: [phone] Exam Date: 01/23/2023 9062 FAX #: [phone] Reason: PRE OP EXAMS: CPT CODE: [id number] XR CHEST 2 V 92424 PROCEDURE INFORMATION: Exam: XR Chest Exam date and time: 01/23/2023 2:32 PM Age: 57 years old Clinical indication: Pre-operative exam; Respiratory screening exam; Additional info: Pre op TECHNIQUE: Imaging protocol: Radiologic exam of the chest. Views: 2 views. PA and Lateral COMPARISON: No relevant prior studies available. FINDINGS: Lungs:There are normal lung volumes without consolidation or interstitial opacities. Pleural spaces: Unremarkable. No pleural effusion. No pneumothorax. Heart/Mediastinum: The cardiac silhouette is slightly enlarged. Bones/joints: No acute abnormality seen. IMPRESSION: No acute cardiopulmonary findings. at 1524 Reported and signed by: Luis Daniel Castro M.D. CC: Neel Garcia MD Technologist: RT Jayla(R) Trnscrd Date/Time/By: 01/23/2023 (1524) : By: CiroTDO Orig Print D/T: S: 01/23/2023 (1525) PAGE 1 Signed ReportGlucose [Mass/volume] in Capillary [id number] 14:44:52 Test Item Value Reference Range Interpretation Comments glucose (test code = glucose) 190 mg/dL 65-99 [facility] [Mass/volume] in Capillary [id number] 14:44:52 Test Item Value Reference Range Interpretation Comments glucose (test code = glucose) 190 mg/dL 65-99 [facility] [Mass/volume] in Capillary [id number] 14:44:52 Test Item Value Reference Range Interpretation Comments glucose (test code = glucose) 190 mg/dL 65-99 [facility] [Mass/volume] in Capillary [id number] 09:57:51 Test Item Value Reference Range Interpretation Comments glucose (test code = glucose) 264 mg/dL 65-99 [facility] [id number] 15:58:00 Test Item Value Reference Range Interpretation Comments GLUBED (test code = GLUBED) 147 MG/DL 70-105 H [id number] 16:42:00 Test Item Value Reference Range Interpretation Comments PTT (test code = PTT) 29.4 s 22.9-35.8 [id number] 16:42:00 Test Item Value Reference Range Interpretation Comments PT (test code = PT) 12.8 s 12.0-14.7 [facility] [id number] 16:42:00 Test Item Value Reference Range Interpretation Comments INR (test code = INR) 0.96 0.85-1.17 [facility] [id number] 16:42:00 Test Item Value Reference Range Interpretation Comments PTT (test code = PTT) 29.4 s 22.9-35.8 [facility] [id number] 16:42:00 Test Item Value Reference Range Interpretation Comments PT (test code = PT) 12.8 s 12.0-14.7 [facility] [id number] 16:42:00 Test Item Value Reference Range Interpretation Comments INR (test code = INR) 0.96 0.85-1.17 [facility] [id number] 16:42:00 Test Item Value Reference Range Interpretation Comments PTT (test code = PTT) 29.4 s 22.9-35.8 [facility] [id number] 16:42:00 Test Item Value Reference Range Interpretation Comments PT (test code = PT) 12.8 s 12.0-14.7 [facility] [id number] 16:42:00 Test Item Value Reference Range Interpretation Comments INR (test code = INR) 0.96 0.85-1.17 [id number] 16:42:00 Test Item Value Reference Range Interpretation Comments PTT (test code = PTT) 29.4 s 22.9-35.8 [facility]MqrpczaXGZUQDASXI8967-88-25 16:42:00 Test Item Value Reference Range Interpretation Comments PT (test code = PT) 12.8 s 12.0-14.7 [facility] AustinBxccsdkXAOMTPHGJL2296-01-49 16:42:00 Test Item Value Reference Range Interpretation Comments INR (test code = INR) 0.96 0.85-1.17 [facility] AustinBkknfbsJJRJUZPHGC8294-20-15 16:42:00 Test Item Value Reference Range Interpretation Comments PTT (test code = PTT) 29.4 s 22.9-35.8 [facility] AustinEgjstuwRHSZBQXKCR6093-02-65 16:42:00 Test Item Value Reference Range Interpretation Comments PT (test code = PT) 12.8 s 12.0-14.7 [facility] AustinRzuehdxWSVKJJBWZN5244-60-24 16:42:00 Test Item Value Reference Range Interpretation Comments INR (test code = INR) 0.96 0.85-1.17 [facility] AustinWedbjwcYDUKZTHVSK2175-69-24 16:42:00 Test Item Value Reference Range Interpretation Comments PTT (test code = PTT) 29.4 s 22.9-35.8 [facility] AustinGsridfaDRCFQJSDAK8497-61-56 16:42:00 Test Item Value Reference Range Interpretation Comments PT (test code = PT) 12.8 s 12.0-14.7 [facility] [facility]XilvsxfDVPXTSBSHL9147-52-35 16:42:00 Test Item Value Reference Range Interpretation Comments INR (test code = INR) 0.96 0.85-1.17 [facility] AustinOiyezumEBXSVIMFRW9906-16-48 16:42:00 Test Item Value Reference Range Interpretation Comments PTT (test code = PTT) 29.4 s 22.9-35.8 [place] 056677-12-05 16:42:00 Test Item Value Reference Range Interpretation Comments PT (test code = PT) 12.8 s 12.0-14.7 [facility] AustinIvrxfpwYACZTDHGII9732-87-72 16:42:00 Test Item Value Reference Range Interpretation Comments INR (test code = INR) 0.96 0.85-1.17 [facility] AustinSmrcyfdBOFJEVSHHE9387-38-25 16:42:00 Test Item Value Reference Range Interpretation Comments PTT (test code = PTT) 29.4 s 22.9-35.8 [facility] AustinGchvirsAOOEANGBZC7253-22-89 16:42:00 Test Item Value Reference Range Interpretation Comments PT (test code = PT) 12.8 s 12.0-14.7 [facility] AustinBtrwfemQNATSRSAWP0183-39-03 16:42:00 Test Item Value Reference Range Interpretation Comments INR (test code = INR) 0.96 0.85-1.17 [facility]2017-12-05 15:26:00 Test Item Value Reference Range Interpretation Comments eGFR (test code = eGFR) 95 [facility]2017-12-05 15:26:00 Test Item Value Reference Range Interpretation Comments Creatinine Lvl (test code = Creatinine 0.92 0.50-1.40 Lvl) [facility]2017-12-05 15:26:00 Test Item Value Reference Range Interpretation Comments BUN (test code = BUN) 21 - [place] [address]-12-05 15:26:00 Test Item Value Reference Range Interpretation Comments MCV (test code = MCV) 84.7 80.0-94.0 [facility] AustinViyuespPIQNSMCUCI8900-90-82 15:26:00 Test Item Value Reference Range Interpretation Comments Hct (test code = Hct) 41.3 42.0-54.0 [facility] AustinSqeswimSBGITPJYTA2428-63-74 15:26:00 Test Item Value Reference Range Interpretation Comments MCH (test code = MCH) 27.9 pg 27.0-31.0 [facility] AustinHlknjtuEVJELQSSPC4569-24-43 15:26:00 Test Item Value Reference Range Interpretation Comments MCHC (test code = MCHC) 32.9 32.0-36.0 [facility] AustinEofrewqOFEYOMZCZO1971-28-69 15:26:00 Test Item Value Reference Range Interpretation Comments WBC (test code = WBC) 7.2 3.7-10.4 [facility] AustinQsaibjmXBDXOENPIW1732-08-63 15:26:00 Test Item Value Reference Range Interpretation Comments RBC (test code = RBC) 4.87 4.70-6.10 [facility] AustinYqwsulsARPZOAPZTG6474-78-18 15:26:00 Test Item Value Reference Range Interpretation Comments Hgb (test code = Hgb) 13.6 14.0-18.0 [facility] AustinRpesfkkACVGVWRLBY8455-77-85 15:26:00 Test Item Value Reference Range Interpretation Comments RDW (test code = RDW) 16.1 11.5-14.5 [facility] AustinHqgogyfQFRNPDZAPV4726-11-33 15:26:00 Test Item Value Reference Range Interpretation Comments Platelet (test code = Platelet) 239 133-450 [facility] AustinEhxnabdEVFHXGMUWM3963-79-39 15:26:00 Test Item Value Reference Range Interpretation Comments MPV (test code = MPV) 8.0 7.4-10.4 [facility]2017-12-05 15:26:00 Test Item Value Reference Range Interpretation Comments eGFR (test code = eGFR) 95 [facility]2017-12-05 15:26:00 Test Item Value Reference Range Interpretation Comments Creatinine Lvl (test code = Creatinine 0.92 0.50-1.40 Lvl) [facility]2017-12-05 15:26:00 Test Item Value Reference Range Interpretation Comments BUN (test code = BUN) 21 7-22 [facility] AustinDbyankkJPZXTLHCJM9841-16-60 15:26:00 Test Item Value Reference Range Interpretation Comments MCV (test code = MCV) 84.7 80.0-94.0 [facility] AustinGporhenRMDZNNHWDK8245-51-93 15:26:00 Test Item Value Reference Range Interpretation Comments Hct (test code = Hct) 41.3 42.0-54.0 [facility] AustinToatfepZGCRSQJEHP5155-08-80 15:26:00 Test Item Value Reference Range Interpretation Comments MCH (test code = MCH) 27.9 pg 27.0-31.0 [facility] AustinIogvdfxDCADXFZDCN7133-21-91 15:26:00 Test Item Value Reference Range Interpretation Comments MCHC (test code = MCHC) 32.9 32.0-36.0 [facility] AustinLvaiofeREULIQHDFH5720-87-15 15:26:00 Test Item Value Reference Range Interpretation Comments WBC (test code = WBC) 7.2 3.7-10.4 [facility] AustinGqprdxoTDKTOUXXKN3976-26-19 15:26:00 Test Item Value Reference Range Interpretation Comments RBC (test code = RBC) 4.87 4.70-6.10 [facility] AustinTtgkbjuPWIMHGHDTZ5577-73-78 15:26:00 Test Item Value Reference Range Interpretation Comments Hgb (test code = Hgb) 13.6 14.0-18.0 [facility] AustinJjdifigYMKZNVHCLQ7782-85-73 15:26:00 Test Item Value Reference Range Interpretation Comments RDW (test code = RDW) 16.1 11.5-14.5 [facility] AustinNvoyxemDSTRJINEFC9815-69-34 15:26:00 Test Item Value Reference Range Interpretation Comments Platelet (test code = Platelet) 239 133-450 [facility] AustinIphqaseLCQJNKXLRU1733-21-80 15:26:00 Test Item Value Reference Range Interpretation Comments MPV (test code = MPV) 8.0 7.4-10.4 [facility]2017-12-05 15:26:00 Test Item Value Reference Range Interpretation Comments eGFR (test code = eGFR) 95 [facility]2017-12-05 15:26:00 Test Item Value Reference Range Interpretation Comments Creatinine Lvl (test code = Creatinine 0.92 0.50-1.40 Lvl) [facility]2017-12-05 15:26:00 Test Item Value Reference Range Interpretation Comments BUN (test code = BUN) 21 7-22 [facility] AustinKuyqiffPRJVNFMWAT7118-98-16 15:26:00 Test Item Value Reference Range Interpretation Comments MCV (test code = MCV) 84.7 80.0-94.0 [facility] AustinUmfczdrNXFLJQFNNC9620-31-78 15:26:00 Test Item Value Reference Range Interpretation Comments Hct (test code = Hct) 41.3 42.0-54.0 [facility] AustinKbelmkmWXAFCCWXBG7195-57-71 15:26:00 Test Item Value Reference Range Interpretation Comments MCH (test code = MCH) 27.9 pg 27.0-31.0 [facility] AustinQltzmcuRVCKJZDUSK0652-08-07 15:26:00 Test Item Value Reference Range Interpretation Comments MCHC (test code = MCHC) 32.9 32.0-36.0 [facility] AustinJtyzfysWMYBLORJRP3557-35-92 15:26:00 Test Item Value Reference Range Interpretation Comments WBC (test code = WBC) 7.2 3.7-10.4 [facility] AustinLshnwwnIHRGSLSMQG9557-06-67 15:26:00 Test Item Value Reference Range Interpretation Comments RBC (test code = RBC) 4.87 4.70-6.10 [facility] AustinZnmgagmLRNJDNEUIP3695-69-76 15:26:00 Test Item Value Reference Range Interpretation Comments Hgb (test code = Hgb) 13.6 14.0-18.0 [facility] AustinSufspalGREMQBUJTF4918-19-79 15:26:00 Test Item Value Reference Range Interpretation Comments RDW (test code = RDW) 16.1 11.5-14.5 [facility] AustinTcgvejpAUJFIEBSAL9261-04-63 15:26:00 Test Item Value Reference Range Interpretation Comments Platelet (test code = Platelet) 239 133-450 [facility] AustinXyjdmlxIFTKGUHASU2806-82-90 15:26:00 Test Item Value Reference Range Interpretation Comments MPV (test code = MPV) 8.0 7.4-10.4 [facility]2017-12-05 15:26:00 Test Item Value Reference Range Interpretation Comments eGFR (test code = eGFR) 95 [facility]2017-12-05 15:26:00 Test Item Value Reference Range Interpretation Comments Creatinine Lvl (test code = Creatinine 0.92 0.50-1.40 Lvl) [facility]2017-12-05 15:26:00 Test Item Value Reference Range Interpretation Comments BUN (test code = BUN) 21 7-22 [facility] AustinVodbafdTQOHRHLORU9677-89-50 15:26:00 Test Item Value Reference Range Interpretation Comments MCV (test code = MCV) 84.7 80.0-94.0 [facility] AustinZoivcliVJMSMAXQNP5668-29-12 15:26:00 Test Item Value Reference Range Interpretation Comments Hct (test code = Hct) 41.3 42.0-54.0 [facility] AustinNpirtxmGIZIGZLXMZ1206-14-66 15:26:00 Test Item Value Reference Range Interpretation Comments MCH (test code = MCH) 27.9 pg 27.0-31.0 [facility] AustinPaafubfQNGOTIWSHI3062-47-70 15:26:00 Test Item Value Reference Range Interpretation Comments MCHC (test code = MCHC) 32.9 32.0-36.0 [facility] AustinKjgucpvXPWWKOGNSZ8677-97-66 15:26:00 Test Item Value Reference Range Interpretation Comments WBC (test code = WBC) 7.2 3.7-10.4 [facility] AustinNhddmyaOFGAPJKFEY3312-84-03 15:26:00 Test Item Value Reference Range Interpretation Comments RBC (test code = RBC) 4.87 4.70-6.10 [facility] AustinIvlzhawQSDUEOPKRO8304-17-95 15:26:00 Test Item Value Reference Range Interpretation Comments Hgb (test code = Hgb) 13.6 14.0-18.0 [facility] AustinZgadgqiMJNDVJLOJZ4905-49-88 15:26:00 Test Item Value Reference Range Interpretation Comments RDW (test code = RDW) 16.1 11.5-14.5 [facility] AustinYarmycmDYHCUCXETN2020-07-03 15:26:00 Test Item Value Reference Range Interpretation Comments Platelet (test code = Platelet) 239 133-450 [facility] AustinItstsdrMSDTCZGVJW4680-59-41 15:26:00 Test Item Value Reference Range Interpretation Comments MPV (test code = MPV) 8.0 7.4-10.4 [facility]2017-12-05 15:26:00 Test Item Value Reference Range Interpretation Comments eGFR (test code = eGFR) 95 [facility]2017-12-05 15:26:00 Test Item Value Reference Range Interpretation Comments Creatinine Lvl (test code = Creatinine 0.92 0.50-1.40 Lvl) [facility]2017-12-05 15:26:00 Test Item Value Reference Range Interpretation Comments BUN (test code = BUN) 21 7-22 [facility] AustinIncxqdfDVQCDKWJPY4941-39-21 15:26:00 Test Item Value Reference Range Interpretation Comments MCV (test code = MCV) 84.7 80.0-94.0 [facility] AustinPolycleNOUTEBNTZM9056-08-42 15:26:00 Test Item Value Reference Range Interpretation Comments Hct (test code = Hct) 41.3 42.0-54.0 [facility] AustinKyjkpfcBBVIXKGIIF6463-46-60 15:26:00 Test Item Value Reference Range Interpretation Comments MCH (test code = MCH) 27.9 pg 27.0-31.0 [facility] AustinEqndzgkKEORTGEJLF1373-58-43 15:26:00 Test Item Value Reference Range Interpretation Comments MCHC (test code = MCHC) 32.9 32.0-36.0 [facility] AustinDhxfateLIUEIDKTDB2786-12-58 15:26:00 Test Item Value Reference Range Interpretation Comments WBC (test code = WBC) 7.2 3.7-10.4 [facility] AustinLlxnvjhRWNBCJQOTO4178-30-40 15:26:00 Test Item Value Reference Range Interpretation Comments RBC (test code = RBC) 4.87 4.70-6.10 [facility] AustinVgetgucDVIASGYHUZ5769-33-11 15:26:00 Test Item Value Reference Range Interpretation Comments Hgb (test code = Hgb) 13.6 14.0-18.0 [facility] AustinOksbqbaZMKCQZXHBL9098-56-24 15:26:00 Test Item Value Reference Range Interpretation Comments RDW (test code = RDW) 16.1 11.5-14.5 [facility] AustinConypizFBPVVLTRVA6709-13-66 15:26:00 Test Item Value Reference Range Interpretation Comments Platelet (test code = Platelet) 239 133-450 [facility] AustinDgzownvZWPYGROTJQ0908-94-18 15:26:00 Test Item Value Reference Range Interpretation Comments MPV (test code = MPV) 8.0 7.4-10.4 [facility]2017-12-05 15:26:00 Test Item Value Reference Range Interpretation Comments eGFR (test code = eGFR) 95 [facility]2017-12-05 15:26:00 Test Item Value Reference Range Interpretation Comments Creatinine Lvl (test code = Creatinine 0.92 0.50-1.40 Lvl) [facility]2017-12-05 15:26:00 Test Item Value Reference Range Interpretation Comments BUN (test code = BUN) 21 7-22 [facility] AustinEcsredoNYTMSFYESF2653-50-16 15:26:00 Test Item Value Reference Range Interpretation Comments MCV (test code = MCV) 84.7 80.0-94.0 [facility] AustinWisxysuVHJPGHRBUE5283-18-74 15:26:00 Test Item Value Reference Range Interpretation Comments Hct (test code = Hct) 41.3 42.0-54.0 [facility] AustinBolocknNIPTPZACQD8620-09-79 15:26:00 Test Item Value Reference Range Interpretation Comments MCH (test code = MCH) 27.9 pg 27.0-31.0 [facility] AustinFkginitZRDTPGWCUH4723-14-29 15:26:00 Test Item Value Reference Range Interpretation Comments MCHC (test code = MCHC) 32.9 32.0-36.0 [facility] AustinKnxlmwiABXTHZPPDC0411-48-64 15:26:00 Test Item Value Reference Range Interpretation Comments WBC (test code = WBC) 7.2 3.7-10.4 [facility] AustinCupxlljWKDISFUIRN4483-73-35 15:26:00 Test Item Value Reference Range Interpretation Comments RBC (test code = RBC) 4.87 4.70-6.10 [facility] AustinHqjalfpWAUXEFAUKE9839-69-90 15:26:00 Test Item Value Reference Range Interpretation Comments Hgb (test code = Hgb) 13.6 14.0-18.0 [facility] AustinWwwxwsmQXXDWLUJYJ7464-84-71 15:26:00 Test Item Value Reference Range Interpretation Comments RDW (test code = RDW) 16.1 11.5-14.5 [facility] AustinDwgtkonDQQGVIAQTO3910-99-06 15:26:00 Test Item Value Reference Range Interpretation Comments Platelet (test code = Platelet) 239 133-450 [facility] AustinGcikaqqKAWDFBYCZK2467-30-48 15:26:00 Test Item Value Reference Range Interpretation Comments MPV (test code = MPV) 8.0 7.4-10.4 [facility]2017-12-05 15:26:00 Test Item Value Reference Range Interpretation Comments eGFR (test code = eGFR) 95 [facility]2017-12-05 15:26:00 Test Item Value Reference Range Interpretation Comments Creatinine Lvl (test code = Creatinine 0.92 0.50-1.40 Lvl) [facility]2017-12-05 15:26:00 Test Item Value Reference Range Interpretation Comments BUN (test code = BUN) 21 7-22 [facility] AustinVcxxewgTAICRTIFHL0346-37-39 15:26:00 Test Item Value Reference Range Interpretation Comments MCV (test code = MCV) 84.7 80.0-94.0 [facility] AustinIyhjlmgZPERRRXMNQ9157-65-72 15:26:00 Test Item Value Reference Range Interpretation Comments Hct (test code = Hct) 41.3 42.0-54.0 [facility] AustinTjgtomxAOJWYAMIYS4555-81-09 15:26:00 Test Item Value Reference Range Interpretation Comments MCH (test code = MCH) 27.9 pg 27.0-31.0 [facility] AustinRzaeaplTDPCQKKHPL0007-08-63 15:26:00 Test Item Value Reference Range Interpretation Comments MCHC (test code = MCHC) 32.9 32.0-36.0 [facility] AustinXfiemjnOPJSIJEOSF3185-47-86 15:26:00 Test Item Value Reference Range Interpretation Comments WBC (test code = WBC) 7.2 3.7-10.4 [facility] AustinGxhgjplMGWSOXZDKI9291-04-28 15:26:00 Test Item Value Reference Range Interpretation Comments RBC (test code = RBC) 4.87 4.70-6.10 [facility] AustinKtidedtIVSXLRAFRI3887-70-75 15:26:00 Test Item Value Reference Range Interpretation Comments Hgb (test code = Hgb) 13.6 14.0-18.0 [facility] AustinYuxiewxZGIIFDASYC9197-05-98 15:26:00 Test Item Value Reference Range Interpretation Comments RDW (test code = RDW) 16.1 11.5-14.5 [facility] AustinHfdsczqMJEFRZBHGG3822-68-99 15:26:00 Test Item Value Reference Range Interpretation Comments Platelet (test code = Platelet) 239 133-450 [facility] AustinHlcaipwDRLOCREZEU4540-22-42 15:26:00 Test Item Value Reference Range Interpretation Comments MPV (test code = MPV) 8.0 7.4-10.4 [facility]2017-12-05 15:26:00 Test Item Value Reference Range Interpretation Comments eGFR (test code = eGFR) 95 [facility]2017-12-05 15:26:00 Test Item Value Reference Range Interpretation Comments Creatinine Lvl (test code = Creatinine 0.92 0.50-1.40 Lvl) [facility]2017-12-05 15:26:00 Test Item Value Reference Range Interpretation Comments BUN (test code = BUN) 21 7-22 [facility] AustinWbuhhivTWPVHLXSYU2245-07-96 15:26:00 Test Item Value Reference Range Interpretation Comments MCV (test code = MCV) 84.7 80.0-94.0 [facility] AustinTbgejxtDNHANOSFPY4738-86-92 15:26:00 Test Item Value Reference Range Interpretation Comments Hct (test code = Hct) 41.3 42.0-54.0 [facility] AustinFtfaanvKZWFFUEUVP7718-37-35 15:26:00 Test Item Value Reference Range Interpretation Comments MCH (test code = MCH) 27.9 pg 27.0-31.0 [facility] AustinGksewkpARJSUKGLFZ3691-56-14 15:26:00 Test Item Value Reference Range Interpretation Comments MCHC (test code = MCHC) 32.9 32.0-36.0 [facility] AustinWjxwzinEUWGCJSFBL3628-09-68 15:26:00 Test Item Value Reference Range Interpretation Comments WBC (test code = WBC) 7.2 3.7-10.4 [facility] AustinJmgusgrOULMOXEQBL6620-82-40 15:26:00 Test Item Value Reference Range Interpretation Comments RBC (test code = RBC) 4.87 4.70-6.10 [facility] AustinPgknzawONQKNNGWPG3000-10-52 15:26:00 Test Item Value Reference Range Interpretation Comments Hgb (test code = Hgb) 13.6 14.0-18.0 [facility] AustinDcnqjmqYRMZRTJSVN3277-97-01 15:26:00 Test Item Value Reference Range Interpretation Comments RDW (test code = RDW) 16.1 11.5-14.5 [facility] AustinMzckjkbTWVLBHRLQM2579-69-63 15:26:00 Test Item Value Reference Range Interpretation Comments Platelet (test code = Platelet) 239 133-450 [facility] AustinIzlqebbWORTOQQMUI8209-72-27 15:26:00 Test Item Value Reference Range Interpretation Comments MPV (test code = MPV) 8.0 7.4-10.4 [place] 65173017-09-05 05:57:00 Test Item Value Reference Range Interpretation [...] ( 4 - SerumAlbumin)] EGFR if >60 Bangladeshi (test code mL/min/1.73m\\ = EGFRAA) S\\2 EGFR if Non- >60 Estimate d Glomerular Bangladeshi (test code mL/min/1.73m\\ Filtrat ion Rate (eGFR) [...] [facility]. [facility] [id number] 05:42:00 Test Item Value Reference Range Interpretation [...] 1.0 % 0.0-0.4 H IG%) [facility] 05:53:00 Test Item Value Reference Range Interpretation [...] ( 4 - SerumAlbumin)] EGFR if >60 Bangladeshi (test code mL/min/1.73m\\ = EGFRAA) S\\2 EGFR if Non- >60 Estimate d Glomerular Bangladeshi (test code mL/min/1.73m\\ Filtrat ion Rate (eGFR) [...] of c hronic kidney failure. [facility] WITH AUTO [id number] 05:27:00 Test Item Value Reference Range Interpretation [...] 1.7 % 0.0-0.4 H IG%) [facility]2017-[facility] 04:36:00 Test Item Value Reference Range Interpretation [...] ( 4 - SerumAlbumin)] EGFR if >60 Bangladeshi (test code mL/min/1.73m\\ = EGFRAA) S\\2 EGFR if Non- >60 Estimate d Glomerular Bangladeshi (test code mL/min/1.73m\\ Filtrat ion Rate (eGFR) [...] of c hronic kidney failure. [facility] WITH AUTO [id number] 04:14:00 Test Item Value Reference Range Interpretation [...] 1.9 % 0.0-0.4 H IG%) [facility]2017-[facility] 04:40:00 Test Item Value Reference Range Interpretation [...] ( 4 - SerumAlbumin)] EGFR if >60 Bangladeshi (test code mL/min/1.73m\\ = EGFRAA) S\\2 EGFR if Non- >60 Estimate d Glomerular Bangladeshi (test code mL/min/1.73m\\ Filtrat ion Rate (eGFR) [...] of c hronic kidney failure. [facility] WITH AUTO [id number] 04:09:00 Test Item Value Reference Range Interpretation [...] code = 2.4 % 0.0-0.4 H IG%) [facility]2017-08-31 06:50:00To start 15mins after 1st cultureSpecimen: BloodCollected: 01/18/2017 04:05 Status: Final Last Updated: 01/23/2017 06:49 (1) To [id number] after 1st culture Culture Result (Final) (Final) [facility] 06:50:00Specimen: BloodCollected: 01/18/2017 03:55 Status: Final Last Updated: 01/23/2017 06:49 Culture Result (Final) (Final) [facility] [id number] 04:31:00 Test Item Value Reference Range Interpretation [...] = 3.4 % 0.0-0.4 H IG%) [facility]-IdgrbiYJJ3839-58-78 04:19:00 Test Item Value Reference Range Interpretation [...] ( 4 - SerumAlbumin)] EGFR if >60 Bangladeshi (test code mL/min/1.73m\\ = EGFRAA) S\\2 EGFR if Non- >60 Estimate d Glomerular Bangladeshi (test code mL/min/1.73m\\ Filtrat ion Rate (eGFR) [...] management of c hronic kidney failure. [facility] WITH AUTO [id number] 04:57:00 Test Item Value Reference Range Interpretation [...] 4.0 % 0.0-0.4 H IG%) CBC AUTO [facility]-SorvjmVKV8252-36-19 04:35:00 Test Item Value Reference Range Interpretation [...] ( 4 - SerumAlbumin)] EGFR if >60 Bangladeshi (test code mL/min/1.73m\\ = EGFRAA) S\\2 EGFR if Non- >60 Estimate d Glomerular Bangladeshi (test code mL/min/1.73m\\ Filtrat ion Rate (eGFR) [...] management of c hronic kidney failure. [facility] WITH AUTO [id number] 05:01:00 Test Item Value Reference Range Interpretation [...] 4.5 % 0.0-0.4 H IG%) CBC AUTO [facility]-PkdocoHIQ7953-20-59 04:56:00 Test Item Value Reference Range Interpretation [...] ( 4 - SerumAlbumin)] EGFR if >60 Bangladeshi (test code mL/min/1.73m\\ = EGFRAA) S\\2 EGFR if Non- >60 Estimate d Glomerular Bangladeshi (test code mL/min/1.73m\\ Filtrat ion Rate (eGFR) [...] management of c hronic kidney failure. [facility] WITH AUTO [id number] 05:57:00 Test Item Value Reference Range Interpretation [...] = 4.8 % 0.0-0.4 H IG%) [facility]oshAmyewa-ZjlgcvANZERVLOT6748-69-27 05:41:00 Test Item Value Reference Range Interpretation Comments Magnesium (test code = MG) 2.0 mg/dl 1.6-2.3 [facility]-RheghjIOT5020-90-72 05:41:00 Test Item Value Reference Range Interpretation [...] ( 4 - SerumAlbumin)] EGFR if >60 Bangladeshi (test code mL/min/1.73m\\ = EGFRAA) S\\2 EGFR if Non- >60 Estimate d Glomerular Bangladeshi (test code mL/min/1.73m\\ Filtrat ion Rate (eGFR) [...] management of c hronic kidney failure. [facility]-LufkinLACTIC ACID [id number] 06:43:00 Test Item Value Reference Range Interpretation Comments LACTATE (test code = LAC) 0.9 mmol/l 0.7-2.0 [facility]-LufkinGLYCOSALATED [id number] 05:41:00 Test Item Value Reference Range Interpretation Comments Hemoglobin A1C (test 9.06 % 4.3-6.0 A code = GLYCO) Mean Plasma Glucose 245 mg/dl 90-180 WHEN BONIFACIO T RESULTS FOR (test code = MPG) A1C EXCEED 14.0, THE LINEAR LIMIT OF THE INSTRUMENT, THE CALCULATED RESU LT FOR THE MEAN GLUCOS E IS NOT RELIABLE. [facility]-fkinCORONARY [id number] 05:09:00 Test Item Value Reference Range Interpretation [...] code = 37 mg/dl 30-60 VLDL) [facility]oshTbcssn-KvqucyUMVOLKVJT3932-16-26 04:51:00 Test Item Value Reference Range Interpretation Comments Magnesium (test code = MG) 2.1 mg/dl 1.6-2.3 [facility]-UyxnhjZRV5008-45-21 04:51:00 Test Item Value Reference Range Interpretation Comments CPK (test code = CPK) 93 U/L 30-135 [facility] ClaireLIPASE, [id number] 04:43:00 Test Item Value Reference Range Interpretation Comments Lipase (test code = LIPA) 116 U/L 8-[address] [facility]CMP2017-[facility]-26 04:43:00 Test Item Value Reference Range Interpretation [...] ( 4 - SerumAlbumin)] EGFR if >60 Bangladeshi (test code mL/min/1.73m\\ = EGFRAA) S\\2 EGFR if Non- >60 Estimate d Glomerular Bangladeshi (test code mL/min/1.73m\\ Filtrat ion Rate (eGFR) [...] and management of c hronic kidney failure. [facility] (HEMOGRAM ONLY)2017-01-18 04:37:00 Test Item Value Reference [...] PLATELET CLUMPI NG. THIS IS A [facility]OGRAM ONLY[facility] Notes Date/Time Note Provider Source 2023-01-23 [id number] [facility] 14:42:00-00:[address] [place] [id number] PATIENT NAME: ROBBIN OSORIO ADMIT DATE: 01/28/23 ACCOUNT NO: [id number] ROOM NO: AGE: 58 REPORT TYPE: eELECTROCARDIOGRAM REPORT SEX: M ADMITTING PHYSICIAN: ATTENDING PHYSICIAN:Neel Garcia MD Order: [id number] Test Reason : PRE OP Test Date/Time Stamp: FriJan 23 2023 14:42:15 Blood Pressure : / mmHG Vent. Rate : 062 BPM Atrial Rate : 062 BPM P-R Int : 150 ms QRS Dur : 106 ms QT Int : 414 ms P-R-T Axes : 019 088 032 degree s QTc Int : 420 ms Normal sinus rhythm Incomplete right bundle branch block Borderline ECG No previous ECGs available Confirmed by STEPH ARITA MD ([id number]) on 01/30/2023 10:22:40 AM Referred By: Neel Garcia Confirmed by:STEPH SALMON MD Electronically Signed by Steph Arita MD on 12/15 at 1022 PATIENT NAME: ROBBIN OSORIO 2 2020-02-09 [id number] [facility] 11:01:00-00:[address] [place] [address] PATIENT NAME: ROBBIN OSORIO ADMIT DATE: 02/08/20 ACCOUNT NO: [id number] ROOM NO: AGE: 55 REPORT TYPE: OPERATIVE REPORT SEX: M ADMITTING PHYSICIAN: ATTENDING PHYSICIAN:Neel Garcia MD OPERATION DATE: 02/08/2020 PREOPERATIVE DIAGNOSIS: PREOPERATIVE DIAGNOSIS: PROCEDURES PERFORMED: Selective coronary angiogr am. SURGEON: AGRICULTURAL ENGINEER: ANESTHESIA: ACCESS: The right femoral artery closed [...] accessed utilizing micropuncture kit and then placed 6-Mexican [place] sheath and then we took 6-Mexican EBU gu lexie into the aortic root [...] and closed t he access with a 6-Mexican Angio-Seal without complications. CONCLUSION: Moderate proximal LAD disease. Negat liliana by iFR value of 1.0. RECOMMENDATIONS: 1. Medical management of coronary artery disease . 2. Medical management of congestive heart failur e. 3. Discharge home once discharge criteria are me t. PATIENT NAME: ROBBIN OSORIO 2 Dictated By: Neel Garcia MD WT: OP:P.RAVINDRA/NERI/BELEN Conf#: [id number]/DID#: [id number] Authenticated by Neel Garcia MD On 02/10/2020 08:25:20 AM Electronically Signed by Neel Garcia MD on at 0825 PATIENT NAME: ROBBIN OSORIO 2 2017-04-29 EXAM: CT MYELOGRAM LUMBAR SPINE [facility] 11:15:00-00:00 EXAM: CT MYELOGRAM THORACIC SPINE [place] EXAM: FLUOROSCOPY-GUIDED LUMBAR PUNCTURE FOR CT MYELOGRAM [...] of the lumbar and lower thoracic spine. Yanira yed images after one hour sh owed [...] the cauda equina roots. L3-L4: Bulging posterior gabriela ulus. Crowding of the cauda equina nerve [...] encroachment upon the exiting nerve roots. 2017-04-29 EXAM: CT MYELOGRAM LUMBAR SPINE [facility] 11:15:00-00:00 EXAM: CT MYELOGRAM THORACIC SPINE [place] EXAM: FLUOROSCOPY-GUIDED LUMBAR PUNCTURE FOR CT MYELOGRAM [...] of the lumbar and lower thoracic spine. Yanira yed images after one hour sh owed [...] the cauda equina roots. L3-L4: Bulging posterior gabriela ulus. Crowding of the cauda equina nerve [...] encroachment upon the exiting nerve roots. 2017-04-29 EXAM: CT MYELOGRAM LUMBAR SPINE [facility] 11:15:00-00:00 EXAM: CT MYELOGRAM [facility] [place] EXAM: [...] of the lumbar and lower thoracic spine. Yanira yed images after one hour sh owed [...] the cauda equina roots. L3-L4: Bulging posterior gabriela ulus. Crowding of the cauda equina nerve [...] encroachment upon the exiting nerve roots. 2017-04-29 EXAM: CT MYELOGRAM LUMBAR SPINE [facility] 11:15:00-00:00 EXAM: CT MYELOGRAM THORACIC SPINE [place] EXAM: FLUOROSCOPY-GUIDED LUMBAR PUNCTURE FOR CT MYELOGRAM [...] of the lumbar and lower thoracic spine. Yanira yed images after one hour sh owed [...] the cauda equina roots. L3-L4: Bulging posterior gabriela ulus. Crowding of the cauda equina nerve [...] encroachment upon the exiting nerve roots. 2017-04-29 EXAM: CT MYELOGRAM LUMBAR SPINE [facility] 11:15:00-00:00 EXAM: CT MYELOGRAM THORACIC SPINE [place] EXAM: FLUOROSCOPY-GUIDED LUMBAR PUNCTURE FOR CT MYELOGRAM [...] of the lumbar and lower thoracic spine. Yanira yed images after one hour sh owed [...] the cauda equina roots. L3-L4: Bulging posterior gabriela ulus. Crowding of the cauda equina nerve [...] encroachment upon the exiting nerve roots. 2017-04-29 EXAM: CT MYELOGRAM LUMBAR SPINE [facility] 11:15:00-00:00 EXAM: CT MYELOGRAM THORACIC SPINE [place] EXAM: FLUOROSCOPY-GUIDED LUMBAR PUNCTURE FOR CT MYELOGRAM [...] of the lumbar and lower thoracic spine. Yanira yed images after one hour sh owed [...] the cauda equina roots. L3-L4: Bulging posterior gabriela ulus. Crowding of the cauda equina nerve [...] encroachment upon the exiting nerve roots. 2017-04-29 EXAM: CT MYELOGRAM LUMBAR SPINE [facility] 09:20:00-00:00 EXAM: CT MYELOGRAM THORACIC SPINE [place] EXAM: FLUOROSCOPY-GUIDED LUMBAR PUNCTURE FOR CT MYELOGRAM [...] of the lumbar and lower thoracic spine. Yanira yed images after one hour sh owed [...] the cauda equina roots. L3-L4: Bulging posterior gbariela ulus. Crowding of the cauda equina nerve [...] encroachment upon the exiting nerve roots. 2017-04-29 EXAM: CT MYELOGRAM LUMBAR SPINE [facility] 09:20:00-00:00 EXAM: CT MYELOGRAM THORACIC SPINE [place] EXAM: FLUOROSCOPY-GUIDED LUMBAR PUNCTURE FOR CT MYELOGRAM [...] of the lumbar and lower thoracic spine. Yanira yed images after one hour sh owed [...] the cauda equina roots. L3-L4: Bulging posterior gabriela ulus. Crowding of the cauda equina nerve [...] encroachment upon the exiting nerve roots. 2017-04-29 EXAM: CT MYELOGRAM LUMBAR SPINE [facility] 09:20:00-00:00 EXAM: CT MYELOGRAM THORACIC SPINE [place] EXAM: FLUOROSCOPY-GUIDED LUMBAR PUNCTURE FOR CT MYELOGRAM [...] of the lumbar and lower thoracic spine. Yanira yed images after one hour sh owed [...] the cauda equina roots. L3-L4: Bulging posterior gabriela ulus. Crowding of the cauda equina nerve [...] encroachment upon the exiting nerve roots. 2017-04-29 EXAM: CT MYELOGRAM LUMBAR SPINE [facility] 09:20:00-00:00 EXAM: CT MYELOGRAM THORACIC SPINE [place] EXAM: FLUOROSCOPY-GUIDED LUMBAR PUNCTURE FOR CT MYELOGRAM [...] of the lumbar and lower thoracic spine. Yanira yed images after one hour sh owed [...] the cauda equina roots. L3-L4: Bulging posterior gabriela ulus. Crowding of the cauda equina nerve [...] encroachment upon the exiting nerve roots. 2017-04-29 EXAM: CT MYELOGRAM LUMBAR SPINE [facility] 09:20:00-00:00 EXAM: CT MYELOGRAM THORACIC SPINE [place] EXAM: FLUOROSCOPY-GUIDED LUMBAR PUNCTURE FOR CT MYELOGRAM [...] of the lumbar and lower thoracic spine. Yanira piper images after one hour sh owed excellent [...] the cauda equina roots. L3-L4: Bulging posterior gabriela ulus. Crowding of the cauda equina nerve [...] encroachment upon the exiting nerve roots. 2017-04-29 EXAM: CT MYELOGRAM LUMBAR SPINE [facility] 09:20:00-00:00 EXAM: CT MYELOGRAM THORACIC [email or web address] EXAM: FLUOROSCOPY-GUIDED LUMBAR PUNCTURE FOR CT MYELOGRAM [...] of the lumbar and lower thoracic spine. Yanira yed images after one hour sh owed [...] the cauda equina roots. L3-L4: Bulging posterior gabriela ulus. Crowding of the cauda equina nerve [...] encroachment upon the exiting nerve roots. 2017-03-19 EXAM: XR ENTIRE SPINE 2 VIEWS [facility] 11:50:00-00:00 DATE: 03/19/2017 10:49 AM CDT Ce nter [...] spondylotic changes in the thor acolumbar spine. 2017-03-19 EXAM: XR ENTIRE SPINE 2 VIEWS [facility] 11:50:00-00:00 DATE: 03/19/2017 10:49 AM CDT Ce nter [...] spondylotic changes in the thor acolumbar spine. 2017-03-19 EXAM: XR ENTIRE SPINE 2 VIEWS [facility] 11:50:00-00:00 DATE: 03/19/2017 10:49 AM CDT Ce nter [...]
--- NOTE | 2023-02-04 18:05 | RAD REPORT ---
EXAM DESCRIPTION: RADChest Single View02/04/2023 5:57 pm CLINICAL HISTORY: CHEST PAIN COMPARISON: Chest Single View dated 09/19/2022; Chest Single View dated 08/15/2022; Chest Single View dated 11/23/2021; Chest Single View dated 10/02/2021 TECHNIQUE: Portable AP view of the chest. FINDINGS: The lungs are clear. No pneumothorax or effusion. The cardiomediastinal contours are unre markable. IMPRESSION: No acute cardiopulmonary process.
[2023-02-04 18:40] LABS: Absolute Lymphocytes (CBC) 1.3 K/uL (0.7-4.9); Hematocrit 33.3 % (39.6-49.0); MCV 82.1 fL (80-100); MPV 7.2 fL (7.6-11.3); Platelets 242 thou/uL (152-406); RBC Red Blood Cell Count 4.05 M/uL (4.33-5.43)
[2023-02-04 18:44] LABS: Protime INR 1.05
[2023-02-04 19:05] LABS: Albumin 3.5 g/dL (3.4-5.0); Bilirubin Direct 0.1 mg/dL (0-0.2); Bilirubin Indirect, Calculated 0.3 mg/dL (0.2-0.8); Bilirubin Total 0.4 mg/dL (0.2-1.0); C-Reactive Protein 14.8 mg/L (<3.00); Magnesium 1.9 mg/dL (1.6-2.4); Potassium 3.9 mEq/L (3.5-5.1); Protein, Total 7.9 g/dL (6.4-8.2); Troponin High Sensitivity 8.9 pg/mL (<58.9)
--- NOTE | 2023-02-04 20:54 | EDPHYS ---
Physician Documentation [facility] Name: Nicola Harvey Age: 58 yrs Sex: Male : 1965 Arrival Date: 02/04/2023 Time: 17:26 Bed 7 Private MD: Latoya Mcknight C ED Physician Weston Carty HPI: 02/04 17:55 This 58 yrs old Male presents to ER via Ambulatory with complaints of Nose snw Bleed. 17:55 The patient presents with a nose bleed, occurred from an unknown cause, that is with snw clots, causative factors include: aspirin therapy, Brilinta. Onset: The symptoms/episode began/occurred suddenly, just prior to arrival. The patient or guardian reports chest pain that is located primarily in the substernal area. Onset: acutely, just prior to arrival. 17:56 Associated signs and symptoms: Pertinent positives: epistaxis, anxiety. The chest pain snw is described as causing indigestion, a pressure. Duration: The patient or guardian reports a single episode. Modifying factors: The symptoms are alleviated by remaining still, the symptoms are aggravated by activity, emotionally stressful situations, movement. Severity of pain: At its worst the pain was mild. recently had LAD stent, started on Brilinta and ASA. Called Dr. Garcia and Juan Luis's office. Historical: - Allergies: 17:35 Zosyn; ap3 17:35 PENICILLINS; ap3 17:35 Jardiance; ap3 17:35 Invokana; ap3 - Home Meds: 17:35 Brilinta 90 mg oral tablet [Active]; ap3 - PMHx: 17:35 CHF; chronic back pain; Diabetes - IDDM; Hyperlipidemia; Hypertension; Obesity; ap3 - Immunization history:: Client reports receiving the 2nd dose of the Covid vaccine. - Social history:: Smoking status: Patient denies any tobacco usage or history of. ROS: 17:54 Eyes: Negative for injury, pain, redness, and discharge, ENT: Negative for injury, snw pain, and discharge, Neck: Negative for injury, pain, and swelling. 17:54 Respiratory: Negative for shortness of breath, cough, wheezing, and pleuritic chest pain. 17:54 Back: Negative for injury and pain, : Negative for injury, bleeding, discharge, and swelling, MS/Extremity: Negative for injury and deformity, Skin: Negative for injury, rash, and discoloration, Neuro: Negative for headache, weakness, numbness, tingling, and seizure, Psych: Negative for depression, anxiety, suicide ideation, homicidal ideation, and hallucinations. 17:54 Constitutional: Positive for body aches. 17:54 Cardiovascular: Positive for chest pain, of the chest. 17:54 Abdomen/GI: Positive for nausea. Exam: 17:54 Constitutional: This is a well developed, well nourished patient who is awake, alert, snw and in no acute distress. Head/Face: Normocephalic, atraumatic. Eyes: Pupils equal round and reactive to light, extra-ocular motions intact. Lids and lashes normal. Conjunctiva and sclera are non-icteric and not injected. Cornea within normal limits. Periorbital areas with no swelling, redness, or edema. ENT: Nares patent. No nasal discharge, no septal abnormalities noted. Tympanic membranes are normal and external auditory canals are clear. Oropharynx with no redness, swelling, or masses, exudates, or evidence of obstruction, uvula midline. Mucous membranes moist. Neck: Trachea midline, no thyromegaly or masses palpated, and no cervical lymphadenopathy. Supple, full range of motion without nuchal rigidity, or vertebral point tenderness. No Meningismus. Chest/axilla: Normal chest wall appearance and motion. Nontender with no deformity. No lesions are appreciated. Cardiovascular: Regular rate and rhythm with a normal S1 and S2. No gallops, murmurs, or rubs. Normal PMI, no JVD. No pulse deficits. 17:54 Abdomen/GI: Soft, non-tender, with normal bowel sounds. No distension or tympany. No guarding or rebound. No evidence of tenderness throughout. Back: No spinal tenderness. No costovertebral tenderness. Full range of motion. Skin: Warm, dry with normal turgor. Normal color with no rashes, no lesions, and no evidence of cellulitis. MS/ Extremity: Pulses equal, no cyanosis. Neurovascular intact. Full, normal range of motion. Neuro: Awake and alert, GCS 15, oriented to person, place, time, and situation. Cranial nerves II-XII grossly intact. Motor strength 5/5 in all extremities. Sensory grossly intact. Cerebellar exam normal. Normal gait. Psych: Awake, alert, with orientation to person, place and time. Behavior, mood, and affect are within normal limits. 17:54 Respiratory: the patient does not display signs of respiratory distress, Respirations: normal, Breath sounds: wheezing: expiratory is heard diffusely. Vital Signs: 17:33 BP 143 / 67; Pulse 101; Resp 19; Temp 98.4; Pulse Ox 96% ; Weight 144.24 kg; ap3 18:20 BP 120 / 67; Pulse 87; Resp 22; Pulse Ox 97% on R/A; nj1 19:42 BP 146 / 69; Pulse 19; Resp 62; Pulse Ox 96% ; Pain 0/10; nj1 21:44 BP 120 / 62; Pulse 71; Resp 21 S; Pulse Ox 98% on R/A; as6 19:42 Pain Scale: Adult nj1 MDM: 17:31 Patient medically screened. snw 20:54 Differential diagnosis: abnormal EKG, acute pericarditis, anxiety, coronary artery snw disease esophagitis, Kristina-Almanza syndrome, stable angina, unstable angina, epistaxis from blood thinners. ECG:. The patient was not given aspirin in the Emergency Department. Data reviewed: vital signs, nurses notes, lab test result(s), EKG, radiologic studies. I considered the following discharge prescriptions or medication management in the emergency department Medications were administered in the Emergency Department. See MAR. Counseling: I had a detailed discussion with the patient and/or guardian regarding the historical points, exam findings, and any diagnostic results supporting the discharge/admit diagnosis, the presence of at least one elevated blood pressure reading (>120/80) during this emergency department visit, lab results, radiology results, the need for outpatient follow up, for definitive care, to return to the emergency department if symptoms worsen or persist or if there are any questions or concerns that arise at home. Special discussion: Based on the patient's history, exam, and Dx evaluation, there is no indication for emergent intervention or inpatient Tx. It is understood by the patient/guardian that if the Sx's persist or worsen they need to return immediately for re-evaluation. Based on the history and exam findings, there is no indication for further emergent testing or inpatient evaluation. I discussed with the patient/guardian the need to see the director card for further evaluation of the symptoms. I discussed with the patient/guardian the need to see the primary care provider for further evaluation of the symptoms. 02/04 17:30 Order name: Basic Metabolic Panel; Complete Time: 19:08 snw 02/04 17:30 Order name: CBC with Diff; Complete Time: 18:47 snw 02/04 17:30 Order name: LFT's; Complete Time: 19:08 snw 02/04 17:30 Order name: Magnesium; Complete Time: 19:08 snw 02/04 17:30 Order name: NT PRO-BNP; Complete Time: 19:08 snw 02/04 17:30 Order name: PT-INR; Complete Time: 18:45 snw 02/04 17:30 Order name: Troponin HS; Complete Time: 19:08 snw 02/04 17:30 Order name: CRP; Complete Time: 19:08 snw 02/04 17:30 Order name: Blood Culture Adult (2) snw 02/04 17:30 Order name: Lactate w/ 2H reflex if indic.; Complete Time: 19:08 snw 02/04 17:30 Order name: Procal; Complete Time: 19:17 snw 02/04 17:30 Order name: XRAY Chest (1 view); Complete Time: 18:05 snw 02/04 17:30 Order name: EKG; Complete Time: 17:31 snw 02/04 17:30 Order name: Cardiac monitoring; Complete Time: 18:40 snw 02/04 17:30 Order name: EKG - Nurse/Tech; Complete Time: 18:40 snw 02/04 17:30 Order name: IV Saline Lock; Complete Time: 18:40 snw 02/04 17:30 Order name: Labs collected and sent; Complete Time: 18:40 snw 02/04 17:30 Order name: O2 Per Protocol; Complete Time: 18:40 snw 02/04 17:30 Order name: O2 Sat Monitoring; Complete Time: 18:40 snw 02/04 17:54 Order name: Ice pack; Complete Time: 18:40 snw 02/04 20:38 Order name: PO challenge; Complete Time: 21:05 snw EC:15 Rate is 90 beats/min. Rhythm is irregular. Right axis deviation noted. QRS is negative snw in leads aVR, V1. ID interval is normal. QRS interval is normal. Clinical impression: NSR w/ Non-specific ST/T Changes. Administered Medications: 21:00 Drug: Promethazine PO 25 mg Route: PO; nj1 21:43 Follow up: Response: No adverse reaction as6 Disposition Summary: 02/04/23 20:54 Discharge Ordered Location: Home snw Condition: Stable snw Diagnosis - Chest pain, unspecified snw - Epistaxis snw Followup: snw - With: Emergency Department - When: As needed - Reason: Worsening of condition Followup: snw - With: Latoya Mcknight MD - When: 2 - 3 days - Reason: Recheck today's complaints, Continuance of care, Re-evaluation by your physician Discharge Instructions: - Discharge Summary Sheet snw - Nonspecific Chest Pain, Adult snw - Nosebleed, Adult snw - Aspirin and Your Heart snw Forms: - Work release form snw - Medication Reconciliation Form snw - Thank You Letter snw - Antibiotic Education snw - Prescription Opioid Use snw - Patient Portal Instructions snw - Leadership Thank You Letter snw Prescriptions: - Pepcid 20 mg Oral Tablet - take 1 tablet by ORAL route once daily; 20 tablet; Refills: 0, Product snw Selection Permitted Signatures: Dispatcher [employer] EDBridget Rosales, SHOPPING INSPECTOR-C SHOPPING INSPECTOR-Csnw Sudha Orosco RN RN ap3 Lori Dash RN RN nj1 Jarad Hinkle RN as6
--- NOTE | 2023-02-04 20:54 | ER ---
Nurse's Notes [facility] Name: Nicola Harvey Age: 58 yrs Sex: Male : 1965 Arrival Date: 02/04/2023 Time: 17:26 Bed 7 Private MD: Latoya Mcknight C Diagnosis: Chest pain, unspecified;Epistaxis Presentation: 02/04 17:33 Chief complaint: Patient states: he had a nose bleed earlier today that he was unable ap3 to control. patient was recently discharged from the hospital where he was placed on blood thinners and received new cardiac stents. patient called his pcp about the nose bleed, who sent him to the ER to be evaluated. Coronavirus screen: At this time, the client does not indicate any symptoms associated with coronavirus-19. Ebola Screen: No symptoms or risks identified at this time. Initial Sepsis Screen: Does the patient meet any 2 criteria? HR > 90 bpm. No. Patient's initial sepsis screen is negative. Does the patient have a suspected source of infection? No. Patient's initial sepsis screen is negative. Risk Assessment: Do you want to hurt yourself or someone else? Patient reports no desire to harm self or others. Onset of symptoms was February 04, 2023. 17:33 Method Of Arrival: Ambulatory ap3 17:33 Acuity: ANGE 3 ap3 Triage Assessment: 17:37 General: Appears in no apparent distress. Behavior is calm, cooperative, appropriate ap3 for age. Pain: Denies pain. EENT: Reports nasal discharge that is bloody. GI: Reports nausea. Historical: - Allergies: 17:35 Zosyn; ap3 17:35 PENICILLINS; ap3 17:35 Jardiance; ap3 17:35 Invokana; ap3 - Home Meds: 17:35 Brilinta 90 mg oral tablet [Active]; ap3 - PMHx: 17:35 CHF; chronic back pain; Diabetes - IDDM; Hyperlipidemia; Hypertension; Obesity; ap3 - Immunization history:: Client reports receiving the 2nd dose of the Covid vaccine. - Social history:: Smoking status: Patient denies any tobacco usage or history of. Screenin:37 [facility] ED Fall Risk Assessment (Adult) History of falling in the last 3 months, ap3 including since admission No falls in past 3 months (0 pts). Abuse screen: Denies threats or abuse. Nutritional screening: No deficits noted. Tuberculosis screening: No symptoms or risk factors identified. Assessment: 17:41 Reassessment: See triage assessment. nj1 18:30 Reassessment: Patient appears in no apparent distress at this time. Patient and/or nj1 family updated on plan of care and expected duration. Pain level reassessed. Patient is alert, oriented x 3, equal unlabored respirations, skin warm/dry/pink. Pain: Denies pain. EENT: No nasal bleeding noted at this time.. 19:43 Reassessment: Patient appears in no apparent distress at this time. Patient and/or nj1 family updated on plan of care and expected duration. Pain level reassessed. Patient is alert, oriented x 3, equal unlabored respirations, skin warm/dry/pink. Patient denies pain at this time. Vital Signs: 17:33 BP 143 / 67; Pulse 101; Resp 19; Temp 98.4; Pulse Ox 96% ; Weight 144.24 kg; ap3 18:20 BP 120 / 67; Pulse 87; Resp 22; Pulse Ox 97% on R/A; nj1 19:42 BP 146 / 69; Pulse 19; Resp 62; Pulse Ox 96% ; Pain 0/10; nj1 21:44 BP 120 / 62; Pulse 71; Resp 21 S; Pulse Ox 98% on R/A; as6 19:42 Pain Scale: Adult [facility] ED Course: 17:27 Patient arrived in ED. rg4 17:28 Latoya Mcknight MD is Private Physician. rg4 17:31 Weston Carty MD is Attending Physician. snw 17:31 Bridget Estrada FNP-C is [facility]. snw 17:35 Triage completed. ap3 17:38 Arm band placed on right wrist. ap3 17:40 Lori Dash, KRUNAL is Primary Nurse. nj1 17:59 XRAY Chest (1 view) In Process Unspecified. EDMS 18:20 Inserted saline lock: 20 gauge in left antecubital area, using aseptic technique. Blood nj1 collected. 18:40 Patient has correct armband on for positive identification. Bed in low position. Call nj1 light in reach. Side rails up X 1. Adult w/ patient. Provided Education on: fall precautions, call light. 20:53 Latoya Mcknight MD is Referral Physician. sn 21:00 Report given to Sade HECTOR. nj1 21:44 No provider procedures requiring assistance completed. IV discontinued, intact, as6 bleeding controlled, No redness/swelling at site. Pressure dressing applied. Administered Medications: 21:00 Drug: Promethazine PO 25 mg Route: PO; nj1 21:43 Follow up: Response: No adverse reaction as6 Medication: 21:44 VIS not applicable for this client. as6 Outcome: 20:54 Discharge ordered by . snw 21:44 Discharged to home ambulatory, with significant other. as6 21:44 Condition: stable 21:44 Discharge instructions given to patient, Instructed on discharge instructions, follow up and referral plans. medication usage, Demonstrated understanding of instructions, follow-up care, medications, Prescriptions given X 1. 21:44 Patient left the ED. as6 Signatures: Dispatcher [employer] EDMS Bridget Estrada, ZENOBIA-C STRATEGIC INTELLIGENCE OFFICER-Tasha Ragsdale rg4 Sudha Orosco RN RN ap3 Jarad Hinkle RN RN as6 Lori Dash RN RN nj1 Corrections: (The following items were deleted from the chart) 18:40 18:40 Inserted saline lock: 20 gauge in left antecubital area, using aseptic technique. nj1 Blood collected. nj1 19:43 19:42 Pulse 19bpm; Resp 62bpm; Pulse Ox 96%; Pain 0/10, Adult; nj1 nj1
[2023-02-04] MEDS ORDERED: PROMETHAZINE 25 MG TABLET ONE (21:10)
[2023-02-04 22:00] VITALS: TEMP 98.4
[2023-02-04 22:06] VITALS: BP 120/62; O2SAT 98
--- NOTE | 2023-02-05 14:55 | EKG ---
Test Date: 2023-02-04 Test Time: 18:13:48 Line Production Cook: SAMANTHA MEASUREMENT RESULTS: Intervals: Rate: 90 CA: 154 QRSD: 104 QT: 356 QTc: 435 [place]: P: 43 CA: 154 QRS: 91 T: 57 INTERPRETIVE STATEMENTS: Sinus rhythm with frequent premature ventricular complexes Rightward axis Incomplete right bundle branch block Borderline ECG Compared to ECG 12/24/2022 05:33:17 Ventricular premature complex(es) now present Right-axis deviation now present Incomplete right bundle-branch block now present Sinus tachycardia no longer present Electronically Signed On 02-05-23 14:53:33 CDT by Neel Garcia
== END 2023-02-04 21:44 | disposition home or self-care (01) ==
LOC: ER 17:26
DX: R07.9 Chest pain, unspecified (principal); R04.0 Epistaxis; I10 Essential (primary) hypertension; E11.9 Type 2 diabetes mellitus without complications; Z88.0 Allergy status to penicillin; Z88.8 Allergy status to other drugs, medicaments and biological substances
CPT/HCPCS: 93005; 87040 ×2; 85025; 80048; 36415; 83735; 85610; 80076; 83605; 84484; 84145; 83880; 86140; 71045; 99284; Q0169

== ENCOUNTER 2023-03-17 10:30 | Day surgery (SDC) | payer BC ==
[2023-03-13 13:03] LABS: Absolute Lymphocytes (CBC) 1.4 K/uL (0.7-4.9); Hematocrit 33.3 % (39.6-49.0); Lymphocytes % 20.8 % (15.3-44.8); MCV 81.7 fL (80-100); MPV 7.2 fL (7.6-11.3); Platelets 224 thou/uL (152-406); RBC Red Blood Cell Count 4.07 M/uL (4.33-5.43)
[2023-03-13 13:06] LABS: Protime INR 0.96
[2023-03-13 13:11] LABS: Potassium 3.9 mEq/L (3.5-5.1)
[2023-03-17] MEDS ORDERED: LIDOCAINE 1% 20 ML MDV ONE (11:05)
[2023-03-17] MEDS ORDERED: HEPA 1000U/500MLS 2,000 UNIT/1,000 ML BAG IV ONE (11:05)
[2023-03-17] MEDS ORDERED: ACETAMINOPHEN 325 MG TABLET ONE ×2 (11:32→17:45)
[2023-03-17] MEDS ORDERED: NA CHLORIDE 0.9% 500 ML ONE (11:33)
[2023-03-17] MEDS ORDERED: MIDAZOLAM HCL 2 MG/2 ML INJ ONE (12:02)
[2023-03-17] MEDS ORDERED: FENTANYL CITR 100 MCG/2 ML ONE (12:02)
[2023-03-17] MEDS ORDERED: HEPARIN 5000 UNIT/ML 1 ML VIAL ONE (12:03)
[2023-03-17] MEDS ORDERED: TICAGRELOR 90 MG TABLET PO ONE (12:03)
[2023-03-17] MEDS ORDERED: HEPARIN 10,000 UNIT/10 ML VIAL IV ONE ×2 (12:03→12:06)
[2023-03-17] MEDS ORDERED: VERAPAMIL HCL 10 MG/4 ML VIAL IV ONE (12:03)
[2023-03-17] MEDS ORDERED: ASPIRIN 325 MG TAB ONE (12:03)
[2023-03-17] MEDS ORDERED: ATROPINE SULF 1 MG/10 ML SYR IV ONE (12:04)
[2023-03-17] MEDS ORDERED: Phenylephrine HCl 10 MG/ML 1 ML VIAL ONE (12:40)
[2023-03-17] MEDS ORDERED: NITROGLYCERIN 0.4 MG/TAB SL ONE (13:14)
--- NOTE | 2023-03-17 17:45 | OP ---
Date of Procedure: 03/17/2023 Surgeon: NIYAH CEDILLO Procedures Performed: 1.Selective coronary angiogram. 2.PCI of severe proximal and mid left circumflex. I used 2.75 x 38 mm Synergy drug-eluting stent. Indication: Unstable angina with known severe coronary artery disease. Access: Right femoral artery 6-Mauritanian closed with StarClose. Complications: None. Bleeding: Less than 20 mL. Anesthesia: Total sedation time was 50 minutes. Description Of Procedure: After risks, benefits, and alternatives were explained, patient agreed to procedure and signed informal consent. Patient was brought into cardiac catheterization laboratory, prepped and draped in usual sterile fashion. Then, I accessed right femoral artery using micropunctu re kit, and fluoroscopy and ultrasound guidance, placed 6-Mauritanian [place] sheath and took a 6-Mauritanian JL4 catheter into aortic root, engaged the left main, took standard views and then gave systemic hepa rin to assure ACT level above 250. Patient already received Brilinta and aspirin at home, this morni ng and took a 6-Mauritanian XB3.5 guide into the aortic root over a J-wire, engaged left main, took short Runthrough wire into the left main, then placed in the distal circ and using a 2.5 x 20 mm balloon, l esions were predilated and then placed a 2.75 x 38 mm Synergy drug-eluting stent to high pressure giv ing a size of 3.0 proximally. The patient tolerated the procedure very well. Then I removed the wir e. Final angiogram was satisfactory and then removed the guide and the sheath and StarClose was used for closure. Findings: 1.Left main is large and normal. 2.LAD; very large vessel with widely patent proximal to mid LAD stent. Diagonal 1 branch has 50% st enosis ostially jailed from the initial procedure. 3.Left circumflex; large vessel, proximal 80%, mid to distal 80%, status post successful PCI using 1 stent as above. Conclusion: 1.Severe proximal and mid left circumflex stenosis, status post successful PCI as above. 2.Widely patent LAD stent. Plan: Continue aspirin, Brilinta, and high-dose statin. Follow up with me in the office in 1 week. SR/MODL Voice ID: [id number] Report ID: [id number]
[2023-03-20 14:00] VITALS: BP 133/58; O2SAT 100
[2023-03-20 14:11] VITALS: TEMP 98
== END 2023-03-17 18:20 | disposition home or self-care (01) ==
LOC: CCL 10:30
PROVIDERS: ATTEND Internal Medicine
PROC: 027034Z Dilation of Coronary Artery, One Artery with Drug-eluting Intraluminal Device, Percutaneous Approach (ICD-10-PCS; principal; 2023-03-17)
DX: I25.110 Atherosclerotic heart disease of native coronary artery with unstable angina pectoris (principal); E78.2 Mixed hyperlipidemia; E11.9 Type 2 diabetes mellitus without complications; I10 Essential (primary) hypertension; E66.01 Morbid (severe) obesity due to excess calories; Z87.891 Personal history of nicotine dependence; Z68.42 Body mass index [BMI] 45.0-49.9, adult
CPT/HCPCS: 36415; 76937; 80048; 85025; 85610; 85730; 92928; C1725; C1893; J0461; J1644; J2001; J2250; J2371; J3010; J7040; Q9967

== ENCOUNTER 2023-04-11 05:56 | Observation (INO) | payer BC ==
--- OUTSIDE RECORDS SUMMARY | 2023-04-11 06:03 | XMS REPORT | Continuity of Care Document ---
:1965 Author Organization [facility] t Address [address] [place] [address] [place] [id number] Care Team Providers Name Role Phone Juan Luis Hope Rody Primary Care Physician Neel Garcia Attending Clinician Unavailable BERLIN_KANDICE_Kit_Latoya Attending Clinician Unavailable Ellen Pantoja Attending Clinician [phone] PAUL SLOAN Attending Clinician Unavailable Nurse, Marivel Pob Immunization Attending Clinician Unavailable Paul Sloan DO Attending Clinician JAZMIN SARMIENTO Attending Clinician Unavailable CHINO HEALY Attending Clinician Unavailable Only, Marivel Test Attending Clinician Unavailable Doctor Unassigned, [place] Attending Clinician Unavailable Anupam Atkins MD Attending [...] Expiration Date S ource [place] [id number] 2022 00:00:00 [place] ([place] AETNA (POS) [id number] 2021 00:00:00 [place] - [id number] 2019 00:00:00 OUT OF [facility]: [id number] [facility] (PPO) Problems Condition Condition Condition Status Onset [...] STENOSIS STENOSIS 1-14 09:02:00 l Active 00:00: Mitesh 04/08/2017 00 [facility] M54.16 M54.16 Diagnosis Active 2016-052017-03-19 Me moria Active 0 10:29:00 l 03/19/2017 00:00: Gabo thomas [address] Abdominal Abdominal Problem Resolve 2017-12-07 Memoria pain pain d 00:03:51 l (finding) (finding) Nikos chacorta Resolved Problem 12/07/2017 [facility] Chest pain Chest Problem Resolve 2017-12-07 Memoria (finding) pain d 00:03:51 l (finding) Mitesh Resolved Problem 12/07/2017 [facility] [...] SV HYPOTENSION [facility] ins 01-23 Clear 00:00: [place] 00 [facility] canaglif DA Active MO LEG [facility] lozin INFECTION 01-23 Clear WITH 00:00: [place] BLISTERS [facility] empaglif DA Active MO LEG [facility] lozin INFECTION 01-23 Yenni r BLISTERS 00:00: [place] 00 [facility] No Known DA Active U 2019-0 [facility] Allergie 02-01 [facility] s 00:00: [facility] No Known DA Active U 2020-0 [facility] Allergie 02-01 [facility] s 00:00: [facility] 00 [facility] NO KNOWN Drug Active Univers ALLERGIE Class ity of S [facility] Social History Social Habit Start Date Stop Date Quantity Comments Source Alcohol intake 2018-07-21 2018-07-21 Current University of 00:00:00 00:00:00 non-drinker of [facility] alcohol Branch (finding) Tobacco use and 2018-04-09 2018-04-09 Never used Universit y of exposure 00:00:00 00:00:00 [facility] Sex [birth year] Universit y of 00:00:00 00:00:00 [facility] Smoking Status Start Date Stop Date Source Never Smoker [facility] Social History 2017-06-05 17:47:50 2017-06-05 17:47:50 [facility] Medications Ordered Filled Start Stop Current Ordering Indication Dosage Frequency Signature Comments Components Source Medication Medication Date Date Medication? Clinician (SIG) Name Name insulin 2018-05 Yes [id number] 60U inject 60 Univers regular 0-24 Units ity of human 500 00:00: under the Varinder as unit/mL 00 skin 3 Medical injection (three) Branch times daily before meals. E11. 65 Insulin Yes Each 3 Univers Syringe-Nee 7-03 (three) ity o f dle U-100 1 00:00: times [place] mL 31 gauge 00 daily Medical x 5/16 Syrg before Branch meals. E11.65 insulin 2018-0 Yes [id number] 1{each} 1 Each 3 Univers U-500 5-28 (three) ity of syringe-nee 00:00: times [place] dle 1/2 mL 00 daily Medical 31 gauge x before Branch " Syrg meals. E11.65 metformin 2018-0 Yes [id number] 1000mg Take 2 Univers ER 500 mg 5-28 tablets by ity of 24 hr 00:00: mouth 2 [place] tablet 00 (two) Medical times Branch daily with meals. glimepiride 2018- Yes [id number] 4mg Take 1 Univers 4 mg tablet 5-28 tablet by ity of 00:00: mouth 2 [place] 00 (two) Medical times [place] daily with meals. pravastatin 2018- Yes [id number] 20mg Take 1 Univers 20 mg 5-28 tablet by ity of tablet 00:00: mouth at [place] 00 bedtime. Medical Branch metoprolol Yes 50mg Take 50 mg U nivers tartrate 50 2-01 by mouth 2 it y of mg tablet 17:31: (two) [place] [id number] times [facility] daily. Branch lisinopril Yes 40mg Take 40 mg U nivers 40 mg 2-01 by mouth ity of tablet 17:31: daily. [address] amLODIPine Yes 5mg Take 5 mg Un bria 5 mg tablet 2-01 by mouth ity of 17:31: daily. [address] Branch traMADOL 50 2018- Yes [id number] 50mg Take 1 Univers mg tablet 2-01 [id number] tablet by ity of 00:00: mouth 2 [place] 00 (two) Medical times [place] daily as needed for Pain (scale 4-6) or Pain (scale 7-10). hydroCHLORO 2017-05 Yes [id number] 25mg Take 1 Univers thiazide 25 2-14 tablet by ity of mg tablet 00:00: mouth [place] 00 daily. Medical Branch exenatide 2017-05 Yes [id number] 2mg inject 2 Univers microsphere 1-14 mg under ity of s (BYDUREON [place]: [place] BCISE[place] 2 00 weekly. Medical mg/0.85 mL Branch AtIn amitriptyli 2016-05 Yes 10 mg = 1 M emoria ne 10 mg 2-01 tab, PO, l oral tablet 14:52: Bedtime, 4 [place] 00 tabs at bedtime for 1 week then 5 tabs at bedtime thereafter , # 150 tab, 2 Refill(s), Pharmacy: [place] [address] diclofenac 2016-05 Yes 75 mg = 1 Me moria sodium 75 2-01 tab, PO, l mg oral 14:52: BID, PRN Gabo n enteric 00 Pain Score coated, 7-10, # 60 delayed-rel tab, 2 ease tablet Refill(s), Pharmacy: [place] [address] Cyclobenzap 2016-05 Yes 10 mg = 1 M emoria rine 2-01 tab, PO, l hydrochlori 14:52: BID, # 60 H ermann de 10 MG 00 tab, 2 Oral Tablet Refill(s), [Flexeril] Pharmacy: [place] [address] amitriptyli 2016-05 Yes 10 mg = 1 M emoria ne 10 mg 2-01 tab, PO, l oral tablet 14:52: Bedtime, 4 Mitesh 00 tabs at bedtime for 1 week then 5 tabs at bedtime thereafter , # 150 tab, 2 Refill(s), Pharmacy: [place] [address] diclofenac 2016-05 Yes 75 mg = 1 Me moria sodium 75 2-01 tab, PO, l mg oral 14:52: BID, PRN Gabo n enteric 00 Pain Score coated, 7-10, # 60 delayed-rel tab, 2 ease tablet Refill(s), Pharmacy: [place] [address] Cyclobenzap 2016-05 Yes 10 mg = 1 M emoria rine 2-01 tab, PO, l hydrochlori 14:52: BID, # 60 H ermann de 10 MG 00 tab, 2 Oral Tablet Refill(s), [Flexeril] Pharmacy: [place] [address] amitriptyli 2016-05 Yes 10 mg = 1 M emoria ne 10 mg 2-01 tab, PO, l oral tablet 14:52: Bedtime, 4 [place] 00 tabs at bedtime for 1 week then 5 tabs at bedtime thereafter , # 150 tab, 2 Refill(s), Pharmacy: [place] [address] diclofenac 2016-05 Yes 75 mg = 1 Me moria sodium 75 2-01 tab, PO, l mg oral 14:52: BID, PRN Gabo n enteric 00 Pain Score coated, 7-10, # 60 delayed-rel tab, 2 ease tablet Refill(s), Pharmacy: [place] [address] Cyclobenzap 2016-05 Yes 10 mg = 1 M emoria rine 2-01 tab, PO, l hydrochlori 14:52: BID, # 60 H ermann de 10 MG 00 tab, 2 Oral Tablet Refill(s), [Flexeril] Pharmacy: [place] [address] amitriptyli 2016-05 Yes 10 mg = 1 M emoria ne 10 mg 2-01 tab, PO, l oral tablet 14:52: Bedtime, 4 Mitesh 00 tabs at bedtime for 1 week then 5 tabs at bedtime thereafter , # 150 tab, 2 Refill(s), Pharmacy: [place] [address] diclofenac 2016-05 Yes 75 mg = 1 Me moria sodium 75 2-01 tab, PO, l mg oral 14:52: BID, PRN Gabo n enteric 00 Pain Score coated, 7-10, # 60 delayed-rel tab, 2 ease tablet Refill(s), Pharmacy: [place] [address] Cyclobenzap 2016-05 Yes 10 mg = 1 M emoria rine 2-01 tab, PO, l hydrochlori 14:52: BID, # 60 H ermann de 10 MG 00 tab, 2 Oral Tablet Refill(s), [Flexeril] Pharmacy: [place] [address] amitriptyli 2016-05 Yes 10 mg = 1 M emoria ne 10 mg 2-01 tab, PO, l oral tablet 14:52: Bedtime, 4 Mitesh 00 tabs at bedtime for 1 week then 5 tabs at bedtime thereafter , # 150 tab, 2 Refill(s), Pharmacy: [place] [address] diclofenac 2016-05 Yes 75 mg = 1 Me moria sodium 75 2-01 tab, PO, l mg oral 14:52: BID, PRN Gabo n enteric 00 Pain Score coated, 7-10, # 60 delayed-rel tab, 2 ease tablet Refill(s), Pharmacy: [place] [address] Cyclobenzap 2016-05 Yes 10 mg = 1 M emoria rine 2-01 tab, PO, l hydrochlori 14:52: BID, # 60 H ermann de 10 MG 00 tab, 2 Oral Tablet Refill(s), [Flexeril] Pharmacy: [place] [address] amitriptyli 2016-05 Yes 10 mg = 1 M emoria ne 10 mg 2-01 tab, PO, l oral tablet 14:52: Bedtime, 4 [place] 00 tabs at bedtime for 1 week then 5 tabs at bedtime thereafter , # 150 tab, 2 Refill(s), Pharmacy: [place] [address] diclofenac 2016-05 Yes 75 mg = 1 Me moria sodium 75 2-01 tab, PO, l mg oral 14:52: BID, PRN Gabo n enteric 00 Pain Score coated, 7-10, # 60 delayed-rel tab, 2 ease tablet Refill(s), Pharmacy: [address] 2016-05 Yes 10 mg = 1 M emoria rine 2-01 tab, PO, l hydrochlori 14:52: BID, # 60 H ermann de 10 MG 00 tab, 2 Oral Tablet Refill(s), [Flexeril] Pharmacy: [place] [address] amitriptyli 2016-05 Yes 10 mg = 1 M emoria ne 10 mg 2-01 tab, PO, l oral tablet 14:52: Bedtime, 4 [place] 00 tabs at bedtime for 1 week then 5 tabs at bedtime thereafter , # 150 tab, 2 Refill(s), Pharmacy: [place] [address] diclofenac 2016-05 Yes 75 mg = 1 Me moria sodium 75 2-01 tab, PO, l mg oral 14:52: BID, PRN Gabo n enteric 00 Pain Score coated, 7-10, # 60 delayed-rel tab, 2 ease tablet Refill(s), Pharmacy: [place] [address] [facility]-05 Yes 10 mg = 1 M emoria rine 2-01 tab, PO, l hydrochlori 14:52: BID, # 60 H ermann de 10 MG 00 tab, 2 Oral Tablet Refill(s), [Flexeril] Pharmacy: [place] [address] amitriptyli 2016-05 Yes 10 mg = 1 M emoria ne 10 mg 2-01 tab, PO, l oral tablet 14:52: Bedtime, 4 [place] 00 tabs at bedtime for 1 week then 5 tabs at bedtime thereafter , # 150 tab, 2 Refill(s), Pharmacy: [place] [address] diclofenac 2016-05 Yes 75 mg = 1 Me moria sodium 75 2-01 tab, PO, l mg oral 14:52: BID, PRN Gabo n enteric 00 Pain Score coated, 7-10, # 60 delayed-rel tab, 2 ease tablet Refill(s), Pharmacy: [place] [address] Cyclobenzap 2016-05 Yes 10 mg = 1 M emoria rine 2-01 tab, PO, l hydrochlori 14:52: BID, # 60 H ermann de 10 MG 00 tab, 2 Oral Tablet Refill(s), [Flexeril] Pharmacy: [place] [address] amitriptyli 2016-05 Yes 10 mg = 1 M emoria ne 10 mg 2-01 tab, PO, l oral tablet 14:52: Bedtime, 4 [place] 00 tabs at bedtime for 1 week then 5 tabs at bedtime thereafter , # 150 tab, 2 Refill(s), Pharmacy: [place] [address] diclofenac 2016-05 Yes 75 mg = 1 Me moria sodium 75 2-01 tab, PO, l mg oral 14:52: BID, PRN Gabo n enteric 00 Pain Score coated, 7-10, # 60 delayed-rel tab, 2 ease tablet Refill(s), Pharmacy: [place] [address] Cyclobenzap 2016-05 Yes 10 mg = 1 M emoria rine 2-01 tab, PO, l hydrochlori 14:52: BID, # 60 H ermann de 10 MG 00 tab, 2 Oral Tablet Refill(s), [Flexeril] Pharmacy: [place] [address] Lidocaine 2016-05 Yes 3 mL, Memoria Hydrochlori 06-26 Route: l de 10 MG/ML 14:50: SUB-Q, Herm chacorta Injectable 00 Dosing Solution Weight 141.364, kg, ONCE, (Preservat liliana Free), Start date: 04/25/17 8:50:00 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, Stop date: 04/25/17 8:50:00 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 Omnipaque 2017-1 Yes 2 mL, Memoria 300 2-01 Route: l 14:50: EPIDURAL, Mitesh 00 Dosing Weight 141.364, kg, ONCE, (Preservat liliana Free), Start date: 04/25/17 8:50:00 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, Stop date: 04/25/17 8:50:00 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 Dexamethaso 2017- Yes 8 mg, Memor ia ne 2-01 Route: l 14:50: EPIDURAL, [place] 00 ONCE, Dosing Weight 141.364, kg, (Preservat liliana Free), Start date: 04/25/17 8:50:00 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, Stop date: 04/25/17 8:50:00 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 Bupivacaine 2017- Yes 2 mL, Memor ia Hydrochlori 2-01 Route: l de 2.5 14:50: EPIDURAL, Gabo n MG/ML 00 Dosing Injectable Weight Solution 141.364, kg, ONCE, (Preservat liliana Free), Start date: 04/25/17 8:50:00 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, Stop date: 04/25/17 8:50:00 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 Sodium 2017-1 Yes 4.2 mL, Memoria Chloride 2-01 Route: l 14:50: EPIDURAL, [place] 00 Dosing Weight 141.364, kg, ONCE, (Preservat liliana Free), Start date: 04/25/17 8:50:00 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, Stop date: 04/25/17 8:50:00 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 Lidocaine 2017- Yes 3 mL, Memoria Hydrochlori 2-01 Route: l de 10 MG/ML 14:50: SUB-Q, Herm chacorta Injectable 00 Dosing Solution Weight 141.364, kg, ONCE, (Preservat liliana Free), Start date: 04/25/17 8:50:00 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, Stop date: 04/25/17 8:50:00 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 Omnipaque 2017-1 Yes 2 mL, Memoria 300 2-01 Route: l 14:50: EPIDURAL, Mitesh 00 Dosing Weight 141.364, kg, ONCE, (Preservat liliana Free), Start date: 04/25/17 8:50:00 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, Stop date: 04/25/17 8:50:00 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 Dexamethaso 2017- Yes 8 mg, Memor ia ne 2-01 Route: l 14:50: EPIDURAL, [place] 00 ONCE, Dosing Weight 141.364, kg, (Preservat liliana Free), Start date: 04/25/17 8:50:00 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, Stop date: 04/25/17 8:50:00 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 Bupivacaine 2017-1 Yes 2 mL, Memor ia Hydrochlori 2-01 Route: l de 2.5 14:50: EPIDURAL, Gabo n MG/ML 00 Dosing Injectable Weight Solution 141.364, kg, ONCE, (Preservat liliana Free), Start date: 04/25/17 8:50:00 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, Stop date: 04/25/17 8:50:00 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 Sodium 2017-1 Yes 4.2 mL, Memoria Chloride 2-01 Route: l 14:50: EPIDURAL, [place] 00 Dosing Weight 141.364, kg, ONCE, (Preservat liliana Free), Start date: 04/25/17 8:50:00 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, Stop date: 04/25/17 8:50:00 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 Lidocaine 2017-1 Yes 3 mL, Memoria Hydrochlori 2-01 Route: l de 10 MG/ML 14:50: SUB-Q, Herm chacorta Injectable 00 Dosing Solution Weight 141.364, kg, ONCE, (Preservat liliana Free), Start date: 04/25/17 8:50:00 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, Stop date: 04/25/17 8:50:00 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 Omnipaque 2017-1 Yes 2 mL, Memoria 300 2-01 Route: l 14:50: EPIDURAL, Mitesh 00 Dosing Weight 141.364, kg, ONCE, (Preservat liliana Free), Start date: 04/25/17 8:50:00 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, Stop date: 04/25/17 8:50:00 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 Dexamethaso 2017- Yes 8 mg, Memor ia ne 2-01 Route: l 14:50: EPIDURAL, [place] 00 ONCE, Dosing Weight 141.364, kg, (Preservat liliana Free), Start date: 04/25/17 8:50:00 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, Stop date: 04/25/17 8:50:00 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 Bupivacaine 2017- Yes 2 mL, Memor ia Hydrochlori 2-01 Route: l de 2.5 14:50: EPIDURAL, Gabo n MG/ML 00 Dosing Injectable Weight Solution 141.364, kg, ONCE, (Preservat liliana Free), Start date: 04/25/17 8:50:00 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, Stop date: 04/25/17 8:50:00 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 Sodium 2017-1 Yes 4.2 mL, Memoria Chloride 2-01 Route: l 14:50: EPIDURAL, Mitesh 00 Dosing Weight 141.364, kg, ONCE, (Preservat liliana Free), Start date: 04/25/17 8:50:00 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, Stop date: 04/25/17 8:50:00 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 Lidocaine 2017- Yes 3 mL, Memoria Hydrochlori 2- Route: l de 10 MG/ML 14:50: SUB-Q, Herm chacorta Injectable 00 Dosing Solution Weight 141.364, kg, ONCE, (Preservat liliana Free), Start date: 04/25/17 8:50:00 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, Stop date: 04/25/17 8:50:00 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 Omnipaque 2017-1 Yes 2 mL, Memoria 300 2- Route: l 14:50: EPIDURAL, Mitesh 00 Dosing Weight 141.364, kg, ONCE, (Preservat liliana Free), Start date: 04/25/17 8:50:00 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, Stop date: 04/25/17 8:50:00 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 Dexamethaso 2017- Yes 8 mg, Memor ia ne 2- Route: l 14:50: EPIDURAL, Mitesh 00 ONCE, Dosing Weight 141.364, kg, (Preservat liliana Free), Start date: 04/25/17 8:50:00 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, Stop date: 04/25/17 8:50:00 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 Bupivacaine 2017-1 Yes 2 mL, Memor ia Hydrochlori 2-01 Route: l de 2.5 14:50: EPIDURAL, Gabo n MG/ML 00 Dosing Injectable Weight Solution 141.364, kg, ONCE, (Preservat liliana Free), Start date: 04/25/17 8:50:00 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, Stop date: 04/25/17 8:50:00 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 Sodium 2017-1 Yes 4.2 mL, Memoria Chloride 2-01 Route: l 14:50: EPIDURAL, Mitesh 00 Dosing Weight 141.364, kg, ONCE, (Preservat liliana Free), Start date: 04/25/17 8:50:00 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, Stop date: 04/25/17 8:50:00 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 Lidocaine 2017- Yes 3 mL, Memoria Hydrochlori 2- Route: l de 10 MG/ML 14:50: SUB-Q, Herm chacorta Injectable 00 Dosing Solution Weight 141.364, kg, ONCE, (Preservat liliana Free), Start date: 04/25/17 8:50:00 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, Stop date: 04/25/17 8:50:00 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 Omnipaque 2017- Yes 2 mL, Memoria 300 2- Route: l 14:50: EPIDURAL, [place] 00 Dosing Weight 141.364, kg, ONCE, (Preservat liliana Free), Start date: 04/25/17 8:50:00 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, Stop date: 04/25/17 8:50:00 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 Dexamethaso 2017- Yes 8 mg, Memor ia ne 2- Route: l 14:50: EPIDURAL, [place] 00 ONCE, Dosing Weight 141.364, kg, (Preservat liliana Free), Start date: 04/25/17 8:50:00 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, Stop date: 04/25/17 8:50:00 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 Bupivacaine 2017- Yes 2 mL, Memor ia Hydrochlori 2- Route: l de 2.5 14:50: EPIDURAL, Gabo n MG/ML 00 Dosing Injectable Weight Solution 141.364, kg, ONCE, (Preservat liliana Free), Start date: 04/25/17 8:50:00 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, Stop date: 04/25/17 8:50:00 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 Sodium 2017-1 Yes 4.2 mL, Memoria Chloride 2- Route: l 14:50: EPIDURAL, Mitesh 00 Dosing Weight 141.364, kg, ONCE, (Preservat liliana Free), Start date: 04/25/17 8:50:00 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, Stop date: 04/25/17 8:50:00 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 Lidocaine 2017-1 Yes 3 mL, Memoria Hydrochlori 2-01 Route: l de 10 MG/ML 14:50: SUB-Q, Herm chacorta Injectable 00 Dosing Solution Weight 141.364, kg, ONCE, (Preservat liliana Free), Start date: 04/25/17 8:50:00 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, Stop date: 04/25/17 8:50:00 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 Omnipaque 2017-1 Yes 2 mL, Memoria 300 2-01 Route: l 14:50: EPIDURAL, Mitesh 00 Dosing Weight 141.364, kg, ONCE, (Preservat liliana Free), Start date: 04/25/17 8:50:00 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, Stop date: 04/25/17 8:50:00 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 Dexamethaso 2017- Yes 8 mg, Memor ia ne 2-01 Route: l 14:50: EPIDURAL, [place] 00 ONCE, Dosing Weight 141.364, kg, (Preservat liliana Free), Start date: 04/25/17 8:50:00 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, Stop date: 04/25/17 8:50:00 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 Bupivacaine 2017- Yes 2 mL, Memor ia Hydrochlori 2-01 Route: l de 2.5 14:50: EPIDURAL, Gabo n MG/ML 00 Dosing Injectable Weight Solution 141.364, kg, ONCE, (Preservat liliana Free), Start date: 04/25/17 8:50:00 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, Stop date: 04/25/17 8:50:00 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 Sodium 2017-1 Yes 4.2 mL, Memoria Chloride 2-01 Route: l 14:50: EPIDURAL, Mitesh 00 Dosing Weight 141.364, kg, ONCE, (Preservat liliana Free), Start date: 04/25/17 8:50:00 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, Stop date: 04/25/17 8:50:00 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 Lidocaine 2017- Yes 3 mL, Memoria Hydrochlori 2-01 Route: l de 10 MG/ML 14:50: SUB-Q, Herm chacorta Injectable 00 Dosing Solution Weight 141.364, kg, ONCE, (Preservat liliana Free), Start date: 04/25/17 8:50:00 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, Stop date: 04/25/17 8:50:00 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 Omnipaque 2017-1 Yes 2 mL, Memoria 300 2-01 Route: l 14:50: EPIDURAL, [place] 00 Dosing Weight 141.364, kg, ONCE, (Preservat liliana Free), Start date: 04/25/17 8:50:00 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, Stop date: 04/25/17 8:50:00 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 Dexamethaso 2017- Yes 8 mg, Memor ia ne 2-01 Route: l 14:50: EPIDURAL, [place] 00 ONCE, Dosing Weight 141.364, kg, (Preservat liliana Free), Start date: 04/25/17 8:50:00 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, Stop date: 04/25/17 8:50:00 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 Bupivacaine 2017-1 Yes 2 mL, Memor ia Hydrochlori 2-01 Route: l de 2.5 14:50: EPIDURAL, Gabo n MG/ML 00 Dosing Injectable Weight Solution 141.364, kg, ONCE, (Preservat liliana Free), Start date: 04/25/17 8:50:00 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, Stop date: 04/25/17 8:50:00 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 Sodium 2017-1 Yes 4.2 mL, Memoria Chloride 2-01 Route: l 14:50: EPIDURAL, [place] 00 Dosing Weight 141.364, kg, ONCE, (Preservat liliana Free), Start date: 04/25/17 8:50:00 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, Stop date: 04/25/17 8:50:00 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 Lidocaine 2017-1 Yes 3 mL, Memoria Hydrochlori 2-01 Route: l de 10 MG/ML 14:50: SUB-Q, Herm chacorta Injectable 00 Dosing Solution Weight 141.364, kg, ONCE, (Preservat liliana Free), Start date: 04/25/17 8:50:00 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, Stop date: 04/25/17 8:50:00 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 Omnipaque 2017-1 Yes 2 mL, Memoria 300 2-01 Route: l 14:50: EPIDURAL, Mitesh 00 Dosing Weight 141.364, kg, ONCE, (Preservat liliana Free), Start date: 04/25/17 8:50:00 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, Stop date: 04/25/17 8:50:00 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 Dexamethaso 2017- Yes 8 mg, Memor ia ne 2-01 Route: l 14:50: EPIDURAL, Mitesh 00 ONCE, Dosing Weight 141.364, kg, (Preservat liliana Free), Start date: 04/25/17 8:50:00 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, Stop date: 04/25/17 8:50:00 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 Bupivacaine 2017- Yes 2 mL, Memor ia Hydrochlori 2-01 Route: l de 2.5 14:50: EPIDURAL, Gabo n MG/ML 00 Dosing Injectable Weight Solution 141.364, kg, ONCE, (Preservat liliana Free), Start date: 04/25/17 8:50:00 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, Stop date: 04/25/17 8:50:00 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 Sodium 2017-1 Yes 4.2 mL, Memoria Chloride 2-01 Route: l 14:50: EPIDURAL, [place] 00 Dosing Weight 141.364, kg, ONCE, (Preservat liliana Free), Start date: 04/25/17 8:50:00 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, Stop date: 04/25/17 8:50:00 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 Sodium 2017-1 Yes 4.2 mL, Memoria Chloride 2- Route: l 14:50: EPIDURAL, Mitesh 00 Dosing Weight 141.364, kg, ONCE, (Preservat liliana Free), Start date: 04/25/17 8:50:00 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, Stop date: 04/25/17 8:50:00 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 Lidocaine 2017- Yes 3 mL, Memoria Hydrochlori 2- Route: l de 10 MG/ML 14:50: SUB-Q, Herm chacorta Injectable 00 Dosing Solution Weight 141.364, kg, ONCE, (Preservat liliana Free), Start date: 04/25/17 8:50:00 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, Stop date: 04/25/17 8:50:00 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 Omnipaque 2017-1 Yes 2 mL, Memoria 300 2-01 Route: l 14:50: EPIDURAL, Mitesh 00 Dosing Weight 141.364, kg, ONCE, (Preservat liliana Free), Start date: 04/25/17 8:50:00 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, Stop date: 04/25/17 8:50:00 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 Dexamethaso 2017- Yes 8 mg, Memor ia ne 2-01 Route: l 14:50: EPIDURAL, [place] 00 ONCE, Dosing Weight 141.364, kg, (Preservat liliana Free), Start date: 04/25/17 8:50:00 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, Stop date: 04/25/17 8:50:00 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 Bupivacaine 2017-1 Yes 2 mL, Memor ia Hydrochlori 2-01 Route: l de 2.5 14:50: EPIDURAL, [place] n MG/ML 00 Dosing Injectable Weight Solution 141.364, kg, ONCE, (Preservat liliana Free), Start date: 04/25/17 8:50:00 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, Stop date: 04/25/17 8:50:00 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 cyclobenzap cyclobenzap No cyclobenza [facility] [...] with with applicator applicator applicator ANTWAN, ANTWAN, [place] [address] [place] [address] [place] [phone] APPLY TO APPLY TO APPLY TO AFFECTED [...] with with applicator applicator applicator ANTWAN [place], [place] [address] [place] [address] [place] [address] APPLY TO APPLY TO APPLY TO AFFECTED [...] with with applicator applicator applicator ANTWAN, ANTWAN, [facility] [place] [address] [place] [address] [place] [address] APPLY TO APPLY TO APPLY TO AFFECTED [...] with with applicator applicator applicator ANTWAN [place]ADA, [place] [address] [place] [address] [place] [address] APPLY TO APPLY TO APPLY TO AFFECTED [...] with with applicator applicator applicator ANTWAN, ANTWAN, [place] [address] [place] [address] [place] [address] APPLY TO APPLY TO APPLY TO AFFECTED [...] mg tablet 5 mg [facility] TAKE 1 tablet TABLET BY [...] 31 gauge mL 31 x 64" x " gauge x USE USE " USE DIRECTED DIRECTED TWICE A DAY TWICE A DAY DIRECTED TWICE A DAY ciclopirox ciclopirox No ciclopirox [facility] 8 % topical 8 % topical 8 % Melani olivarestalha solution solution topical APPLY TO APPLY TO solution THE THE APPLY TO AFFECTED AFFECTED THE AREA(S) BY AREA(S) BY AFFECTED TOPICAL TOPICAL AREA(S) BY ROUTE ONCE ROUTE ONCE TOPICAL DAILY DAILY ROUTE ONCE PREFERABLY PREFERABLY DAILY AT BEDTIME AT BEDTIME PREFERABLY OR 8 HOURS OR 8 HOURS AT BEDTIME BEFORE BEFORE OR 8 HOURS WASHING WASHING BEFORE WASHING Vital Signs Vital Name Observation Time Observation Value Comments Source BP Diastolic 2022-04-11 00:00:00 70 mm[Hg] Rudi pereira Height 2022-04-11 00:00:00 70 [in_i] Rudi pereira BMI (Body Mass Index) 2022-04-11 00:00:00 49.5 kg/m2 [facility] BP Systolic 2022-04-11 00:00:00 130 [...] Mitesh BMI Calculated 2017-06-05 17:46:00 Memori al [place] Systolic (mm Hg) 2017-06-05 17:46:00 Chuck jackl [place] Diastolic (mm Hg) 2017-06-05 17:46:00 Mem orial Mites[place] Temperature Oral (F) 2017-06-05 17:46:00 99.3 F [facility] [place] Heart Rate 2017-06-05 17:46:00 [facility] [place] BMI Calculated 2017-04-29 15:23:00 Memori al [place] Weight 2017-04-29 15:23:00 [facility] [place] Height 2017-04-29 15:23:00 177.8 cm [facility] [place] Heart Rate 2017-04-29 15:00:00 [facility] [place] Respitory Rate 2017-04-29 15:00:00 Memori al [place] [...] and interpretation; lumbosacral NJX INTERLAMINAR 2017-04-25 14:50:00 [facility] Mitesh Lumbar epidural [facility] [place] injection Lumbar epidural steroid [facility] [place] injection Nose operation [facility] [place] Operation [facility] [place] Plan of Care Planned Activity Planned Date Details Comments Source Diagnostic Test Pending 2022-04-11 00:00:00 glucose, [facility] fingerstick, blood [code = glucose, fingerstick, blood] Encounters Start End Encounter Admission Attending Care Care Encounter Source Date/Time Date/Time Type Type Clinicians Facility Department ID 2023-01-28 2023-01-28 Outpatient PILI Garcia AD[facility]ANAQUITA [facility] [id number] [facility] 05:21:00 05:21:00 Neel 22 [facility] 2022-11-08 2022-11-08 Outpatient GC_EDEC_Hay PRIV PRIV [id number] [facility] 00:00:00 00:00:00 es_A [id number] Medica l 2022-10-09 2022-10-09 Outpatient GC_EDEC_Hay PRIV PRIV [id number] [facility] 00:00:00 00:00:00 es_A [id number] Medica l 2022-10-07 2022-10-07 Outpatient GC_EDEC_Hay PRIV PRIV [id number] [facility] 00:00:00 00:00:00 es_A [id number] Medica l 2022-07-15 2022-07-15 Outpatient GC_EDEC_Hay PRIV PRIV 211 [id number] [facility] 00:00:00 00:00:00 es_A [id number] Medica l 2022-07-15 2022-07-15 Outpatient GC_EDEC_Hay PRIV PRIV [id number] [facility] 00:00:00 00:00:00 es_A [id number] Medica l 2022-07-15 2022-07-15 [facility]ocurra [facility] 00:00:00 00:00:00 [facility] kaila Cotter, GC_EDEC_Pas SPECIAL EDUCATOR-EDUCATIONAL THERAPY TEACHER-C: [facility], [facility] [address], [place] [address] , Ph. 2022-07-14 2022-07-14 Outpatient GC_EDEC_Hay PRIV PRIV [id number] [facility] 00:00:00 00:00:00 es_A [id number] Medica l 2022-04-11 2022-04-11 Outpatient GC_EDEC_Hay PRIV PRIV 211 [id number] [facility] 00:00:00 00:00:00 es_A [id number] Medica l 2022-04-11 2022-04-11 Tocurra [facility] [id number] [facility] 00:00:00 00:00:00 [facility] Cotter, GC_EDEC_Pas SPECIAL EDUCATOR-EDUCATIONAL THERAPY TEACHER-C: terri [facility] Office* [facility], [facility] [address], [place] [address] , Ph. 2022-04-10 2022-04-10 Outpatient GC_EDEC_Hay PRIV PRIV [id number] [facility] 00:00:00 00:00:00 es_A [id number] Medica l 2022-01-04 2022-01-04 Outpatient GC_EDEC_Hay PRIV PRIV 211 [id number] [facility] 00:00:00 00:00:00 es_A [id number] Medica l 2021-12-31 2021-12-31 Outpatient GC_EDEC_Hay PRIV PRIV [id number] [facility] 00:00:00 00:00:00 es_A [id number] Medica l 2021-09-24 2021-09-24 Outpatient GC_EDEC_Hay PRIV PRIV 211 [id number] [facility] 11:24:00 11:24:00 es_A [id number] Medica l 2021-09-24 2021-09-24 Outpatient Kit PRIV PRIV [id number] 00:00:00 00:00:00 Ellen [id number] [facility] [id number] 2021-09-24 2021-09-24 Ellen PRIV NE - [facility] 00:00:00 00:00:00 [facility] Medic kaila Pantoja MD: GC_EDEC_Pas [address] [facility] Office* [address], [facility] [address], [place] [address] , Ph. 2021-09-20 2021-09-20 Outpatient GC_EDEC_Hay PRIV PRIV [id number] [facility] 03:44:00 03:44:00 es_A [id number] Medica l 2021-04-12 2021-04-12 Outpatient Florencio [facility] [id number] Univers 16:30:00 16:30:[address] [facility] 2021-04-12 2021-04-12 Imm/Inj Nurse, Adc Pob Immunization [facility] [id number] Univers 16:14:33 16:14:42 Visit [facility] 350.1.13 .10 [facility] 4.2.7.2.686 Elziabeth BENJAMIN [id number] [address] 2021-01-16 2021-01-16 Outpatient GC_EDEC_Hay PRIV PRIV [id number] [facility] 07:11:00 07:11:00 es_A [id number] Medica l 2020-09-25 2020-09-25 Outpatient GC_EDEC_Hay PRIV PRIV 211 [id number] [facility] 02:20:00 02:20:00 es_A [id number] Medica l 2020-09-19 2020-09-19 Outpatient GC_EDEC_Hay PRIV PRIV [id number] [facility] 02:41:00 02:41:00 es_A [id number] Medica l 2020-09-13 2020-09-13 Outpatient GC_EDEC_Hay PRIV PRIV [id number] [facility] 06:01:00 06:01:00 es_A [id number] Medica l 2020-09-13 2020-09-13 Outpatient Kit, PRIV PRIV [id number] 00:00:00 00:00:00 Ellen [id number] [facility] [id number] 2020-09-13 2020-09-13 Ellen [facility]IV [facility] 21 [facility] 00:00:00 00:00:00 [facility] kaila Pantoja MD: GC_EDEC_Pas [address] [facility] Office* wy, [facility] [address], [place] [address] , Ph. 2020-09-11 2020-09-11 Outpatient GC_EDEC_Hay PRIV PRIV 211 [id number] [facility] 12:06:00 12:06:00 es_A [id number] Medica l 2020-09-06 2020-09-06 Outpatient GC_EDEC_Hay PRIV PRIV 211 [id number] [facility] 06:40:00 06:40:00 es_A [id number] Medica l 2020-08-24 2020-08-24 Outpatient Florencio [facility] [id number] Univers 14:40:00 14:40:00 JAZMIN [facility] 2020-08-03 2020-08-03 Outpatient [facility] [id number] Univers 14:40:00 14:40:00 [facility] 2020-02-08 2020-02-08 Inpatient PILI Radha [facility] DAYS [id number] 08:00:00 08:00:00 Neel 42 [facility] 2020-02-02 2020-02-02 Outpatient CHINO [facility] [id number] Univers 11:30:00 11:30:00 [facility] 2020-02-02 2020-02-02 Laboratory Only, [facility] [id number] 11:14:48 11:29:48 Only Test [place] [id number] [place] 4.2.7.2.686 [place] [id number] 2020-02-02 2020-02-02 Orders Doctor DULCE [id number] 00:00:00 00:00:00 Only Unassigned, KIMBERLY 350.1.13.10 [place] 4.2.7.2.686 [id number] 2020-01-05 2020-01-05 Telephone Atkins, [facility] [id number] 00:00:00 00:00:00 [place] [id number] [place] 4.2.7.2.686 Professio [id number] [address] 2019-06-16 2019-06-16 Telephone Atkins, [facility] [id number] 00:00:00 00:00:00 [place] [id number] [place] 4.2.7.2.686 Professio [id number] [address] 2019-06-09 2019-06-09 Telephone Atkins, [facility] [id number] 00:00:00 00:00:00 [place] [id number] [place] 4.2.7.2.686 Professio [id number] [address] 2019-02-10 2019-02-10 Telephone Atkins, [facility] [id number] 00:00:00 00:00:00 [place] [id number] [place] 4.2.7.2.686 Professio [id number] [address] 2018-12-13 2018-12-13 Orders Doctor DULCE [id number] 00:00:00 00:00:00 Only Unassigned, [place]IM[place] 350.1.13.[address] [place] [facility] 4.2.7.2.686 [id number] 2018-11-27 2018-11-27 Refill Atkins, [facility] [id number] 00:00:00 00:00:00 [place] [id number] [place] 4.2.7.2.686 [facility] [id number] [address] 2017-12-04 2017-12-04 Ambulatory nullFlavo [facility] [id number] [facility] 15:30:00 15:30:00 [place] [facility] 07 [facility] 2017-12-04 2017-12-04 Ambulatory nullFlavo [facility] [id number] [facility] 15:30:00 15:30:00 Pre-Reg r Clinic [address] 2017-12-04 2017-12-04 Outpatient MHIE MHIE [id number] [facility] 10:30:00 10:30:00 07 [facility] 2017-12-04 2017-12-04 Outpatient Dulce Lau M[facility]ER [facility] [id number] 10:30:00 10:30:00 [facility] 2017-06-06 2017-06-08 Phone nullFlavo [facility] [id number] [facility] 20:31:00 05:59:59 Message r Clinic [facility] 09 [facility] 2017-06-06 2017-06-08 Phone nullFlavo [facility] [id number] [facility] 20:31:00 05:59:59 Message r Clinic [facility] 09 [facility] 2017-06-06 2017-06-07 Outpatient MHMISCHER MHMISCHER [id number] 14:31:00 23:59:59 09 2017-06-06 2017-06-07 Outpatient MHMISCHER MHMISCHER [id number] 14:31:00 23:59:59 2017-06-05 2017-06-06 Outpatient nullFlavo [facility] [id number] [facility] 17:30:00 05:59:59 r Clinic [facility] 05 [facility] 2017-06-05 2017-06-06 Outpatient nullFlavo [facility] [id number] [facility] 17:30:00 05:59:59 r Clinic [facility] 05 [facility] 2017-06-05 2017-06-05 Outpatient Dulce Lau M[facility]ISCHER M[facility]IS[facility] [id number] 11:30:00 23:59:59 C 2017-06-05 2017-06-05 Outpatient Dulce Lau MISCHER MHMISCHER [id number] 11:30:00 23:59:59 C 05 2017-06-05 2017-06-05 Outpatient IE IE [id number] [facility] 11:30:00 11:30:00 05 [facility] 2017-04-30 2017-05-02 Phone nullFlavo [facility] [id number] [facility] 17:52:00 05:59:59 Message r Clinic TM 08 [facility] 2017-04-30 2017-05-02 Phone nullFlavo [facility] [id number] [facility] 17:52:00 05:59:59 Message r Clinic TM 08 [facility] 2017-04-30 2017-05-01 Outpatient MHMISCHER MHMISCHER [id number] 11:52:00 23:59:59 08 2017-04-29 2017-04-30 Outpatient nullFlavo [facility] [id number] [facility] 14:20:00 05:59:00 [facility] 00 [facility] 2017-04-29 2017-04-30 Outpatient nullFlavo [facility] [id number] [facility] 14:20:00 05:59:00 r [place] 00 [facility] 2017-04-29 2017-04-29 Outpatient Dulce Lau [facility] [id number] 08:20:00 23:59:00 C 2017-04-25 2017-04-26 Outpatient nullFlavo [facility] [id number] Mem[facility] 14:00:00 05:59:59 r Clinic TM 06 [facility] 2017-04-25 2017-04-26 Outpatient nullFlavo [facility] [id number] [facility] 14:00:00 05:59:59 r Clinic TM 06 [facility] 2017-04-24 2017-04-26 Phone nullFlavo [facility] [id number] [facility] 22:30:00 05:59:59 Message r Clinic TM 07 [facility] 2017-04-24 2017-04-26 Phone nullFlavo [facility] [id number] [facility] 22:30:00 05:59:59 Message r Clinic TM 07 [facility] 2017-04-24 2017-04-26 Phone nullFlavo [facility] [id number] [facility] 22:27:00 05:59:59 Message r Clinic TM 06 l [place] 2017-04-24 2017-04-26 Phone nullFlavo [facility] [id number] [facility] 22:27:00 05:59:59 Message r [facility] 06 [facility] 2017-04-25 2017-04-25 Outpatient Edin, MHMISCHER MHMISCHER [id number] 08:00:00 23:59:59 Camacho Cook 06 2017-04-24 2017-04-25 Outpatient MHMISCHER MHMISCHER [id number] 16:30:00 23:59:59 07 2017-04-24 2017-04-25 Outpatient MHMISCHER MHMISCHER [id number] 16:27:00 23:59:59 06 2017-04-25 2017-04-25 Outpatient MHIE MHIE [id number] [facility] 08:00:00 08:00:00 06 [facility] 2017-04-04 2017-04-04 Outpatient MHIE MHIE [id number] [facility] 13:00:00 13:00:00 04 [facility] 2017-04-04 2017-04-04 Outpatient MHIE MHIE [id number] [facility] 13:00:00 13:00:00 04 [facility] 2017-03-19 2017-03-20 Outpatient nullFlavo [facility] [id number] [facility] 15:22:00 04:59:[address] 2017-03-19 2017-03-20 Outpatient nullFlavo [facility] [id number] [facility] 15:22:00 04:59:[address] 2017-03-19 2017-03-19 Outpatient Manjinder Kowalski [facility] [id number] 10:22:00 23:59:00 Vandana 2017-03-19 2017-03-19 Outpatient MHIE MHIE [id number] [facility] 08:45:00 08:45:00 03 [facility] 2017-03-19 2017-03-19 Outpatient MHIE MHIE [id number] [facility] 08:45:00 08:45:00 03 [facility] 2017-03-19 2017-03-19 Outpatient MHIE MHIE [id number] [facility] 07:45:00 07:45:00 02 [facility] 2017-03-19 2017-03-19 Outpatient MHIE MHIE [id number] [facility] 07:45:00 07:45:00 02 marga Sagastume 2016-09-04 2016-09-04 Outpatient AMPARO CHRISTENSEN [id number] [facility] 07:45:00 07:45:00 01 marga Sagastume 2016-09-04 2016-09-04 Outpatient AMPARO CHRISTENSEN [id number] [facility] 07:45:00 07:45:00 01 marga Sagastume 2016-08-19 2016-08-19 Outpatient AMPARO CHRISTENSEN [id number] [facility] 10:30:00 10:30:00 00 marga Sagastume 2016-08-19 2016-08-19 Outpatient AMPARO CHRISTENSEN [id number] [facility] 10:30:00 10:30:00 00 marga Sagastume Results Test Description Test Time Test Comments Results Result Comments Source COAGULATION TIME ACTIVATED 2023-01-31 06:57:00 Test Item Value Reference Range Interpretation Comme nts COAGULATION TIME ACTIVATED (test 266 SECONDS Performed by certified wrecking crane engine operator code = ACT) at [facility] COAGULATION TIME [id number] 06:57:00 Test Item Value Reference Range Interpretation Comments COAGULATION TIME 232 SECONDS Performed b y ACTIVATED (test code = certi fied wrecking crane engine operator ACT) at [facility] COAGULATION TIME [id number] 06:57:00 Test Item Value Reference Range Interpretation Comments COAGULATION TIME 208 SECONDS Performed b y ACTIVATED (test code = certi fied wrecking crane engine operator ACT) at [facility] GLUCOSE [id number] 20:59:00 Test Item Value Reference Range Interpretation Comments GLUCOSE BEDSIDE (test 123 MG/DL 70-110 H Perfor med by certified code = GLUBED) wrecking crane engine operator at [facility] GLUCOSE [id number] 09:06:00 Test Item Value Reference Range Interpretation Comments GLUCOSE BEDSIDE (test 98 MG/DL 70-110 N Perfor med by certified code = GLUBED) wrecking crane engine operator at [facility] PROTHROMBIN [id number] 15:53:00 Test Item Value Reference Range Interpretation [...] (to prevent recurrent infar ct). BASIC METABOLIC [id number] 15:37:00 Test Item Value Reference Range Interpretation [...] the recommended for tiffanie for GFRby the Natio nal Kidney Foundati on for Adults.The GFR will not calculate if th e sex is unknown or if thepatient's ag e is <18 years. CREATININE (test 1.0 mg/dL 0.6-1.3 N code = CREAT) CALCIUM (test code = 9.0 mg/dL 8.0-10.5 N CA) CBC W/AUTO [id number] 15:25:00 Test Item Value Reference Range Interpretation [...] MANUAL DIFF REQUIRED (test code NO = MDIFF) - XR CHEST 2 [id number] 00:00:00 [facility] 1965 Sex: M FAX: Neel Ruvalcaba MD [phone] [place]: St: PRE Name: ROBBIN OSORIO [facility] : 1965 Age/S: 57/M [address] [place] [address] Unit #: [id number] Loc: [place] [address] Phys: Neel Garcia MD Acct: [id number] Dis Date: Status[place] [facility] [place] #: [phone] Exam Date: 01/23/2023 1459 FAX #: [phone] Reason: PRE OP EXAMS: CPT CODE: [id number] XR CHEST 2 V 64687 PROCEDURE INFORMATION: Exam: XR Chest Exam date and time: 01/23/2023 2:32 PM Age: 57 years old Clinical indication: Pre-operative exam; Respiratory screening exam; Additional info: Pre op TECHNIQUE: Imaging protocol: Radiologic exam of the chest. Views: 2 views. PA and Lateral COMPARISON: No relevant prior studies available. FINDINGS: Lungs: Th ere are normal lung volumes without consolidation or interstitial opacities. Pleural spaces: Unremarkable. No pleural effusion. No pneumothorax. Heart/Mediastinum: The cardiac silhouette is slightly enlarged. Bones/joints: No acute abnormality seen. IMPRESSION: No acute cardiopulmonary findings. Courtney ctronically Signed by Savage Castro on 01/23/2023 at 1524 Reported and signed by: Luis Daniel Castro M.D. CC: Neel Garcia MD Technologist: RT Jayla(Florencio) Trnscrd Date/Time/By:01/23/2023 (152) : By: CiroTDOrlando Orig Print D/T: S: 01/23/2023 (4668) PAGE 1 Signed ReportGlucose [Mass/volume] in Capillary [id number] 14:44:52 Test Item Value Reference Range Interpretation Comments glucose (test code = glucose) 190 mg/dL 65-99 [facility] [Mass/volume] in Capillary [id number] 14:44:52 Test Item Value Reference Range Interpretation Comments glucose (test code = glucose) 190 mg/dL 65-99 [facility] MedicalGlucose [Mass/volume] in Capillary [id number] 14:44:52 Test Item Value Reference Range Interpretation Comments glucose (test code = glucose) 190 mg/dL 65-99 [facility] MedicalGlucose [Mass/volume] in Capillary [id number] 09:57:51 Test Item Value Reference Range Interpretation Comments glucose (test code = glucose) 264 mg/dL 65-99 [facility] [id number] 15:58:00 Test Item Value Reference Range Interpretation Comments GLUBED (test code = GLUBED) 147 MG/DL 70-105 H [id number] 16:42:00 Test Item Value Reference Range Interpretation Comments PTT (test code = PTT) 29.4 s 22.9-35.8 [facility]bbusfxFZJMZOOBCW1007-32-12 16:42:00 Test Item Value Reference Range Interpretation Comments PT (test code = PT) 12.8 s 12.0-14.7 [facility] HospitalFocoiovUNIOXVZESJ2149-13-94 16:42:00 Test Item Value Reference Range Interpretation Comments INR (test code = INR) 0.96 0.85-1.17 [facility] HospitalSazhbfyXDJFMRGHDM8603-27-54 16:42:00 Test Item Value Reference Range Interpretation Comments PTT (test code = PTT) 29.4 s 22.9-35.8 [facility] HospitalKgiovemNSYVXUHDLJ5509-64-91 16:42:00 Test Item Value Reference Range Interpretation Comments PT (test code = PT) 12.8 s 12.0-14.7 [facility] HospitalYotqtbzPJSUYAZLZC5784-46-96 16:42:00 Test Item Value Reference Range Interpretation Comments INR (test code = INR) 0.96 0.85-1.17 [facility] Hos[id number] 16:42:00 Test Item Value Reference Range Interpretation Comments PTT (test code = PTT) 29.4 s 22.9-35.8 [facility] Hos[id number] 16:42:00 Test Item Value Reference Range Interpretation Comments PT (test code = PT) 12.8 s 12.0-14.7 [facility] HospitalUalmxidIAWACILFEE9348-54-18 16:42:00 Test Item Value Reference Range Interpretation Comments INR (test code = INR) 0.96 0.85-1.17 [facility] HospitalUytdhuhYFMAYDIXQB2973-18-23 16:42:00 Test Item Value Reference Range Interpretation Comments PTT (test code = PTT) 29.4 s 22.9-35.8 [facility] HospitalYozxvteACASRQIITG4351-14-00 16:42:00 Test Item Value Reference Range Interpretation Comments PT (test code = PT) 12.8 s 12.0-14.7 [facility] HospitalUumwfudAPCNCDPCTI1625-01-36 16:42:00 Test Item Value Reference Range Interpretation Comments INR (test code = INR) 0.96 0.85-1.17 [facility] HospitalJcldpciJTFHOFOHLS8120-98-73 16:42:00 Test Item Value Reference Range Interpretation Comments PTT (test code = PTT) 29.4 s 22.9-35.8 [facility] Hos[id number] 16:42:00 Test Item Value Reference Range Interpretation Comments PT (test code = PT) 12.8 s 12.0-14.7 [place] [id number] 16:42:00 Test Item Value Reference Range Interpretation Comments INR (test code = INR) 0.96 0.85-1.17 [facility] HospitalMdkwrcxXWNGEHLUIZ0769-39-39 16:42:00 Test Item Value Reference Range Interpretation Comments PTT (test code = PTT) 29.4 s 22.9-35.8 [facility] HospitalWjcphtaIRFCVBBWRU4554-31-98 16:42:00 Test Item Value Reference Range Interpretation Comments PT (test code = PT) 12.8 s 12.0-14.7 [facility] HospitalLhipakmPWVRGEHSMR4907-79-16 16:42:00 Test Item Value Reference Range Interpretation Comments INR (test code = INR) 0.96 0.85-1.17 [facility] HospitalUcoeodbSDNOVYIPSE1607-28-01 16:42:00 Test Item Value Reference Range Interpretation Comments PTT (test code = PTT) 29.4 s 22.9-35.8 [facility] HospitalZllshenMWDPAYPWPW5761-76-15 16:42:00 Test Item Value Reference Range Interpretation Comments PT (test code = PT) 12.8 s 12.0-14.7 [facility] HospitalVkukjamOVDWMKPZKJ1074-02-44 16:42:00 Test Item Value Reference Range Interpretation Comments INR (test code = INR) 0.96 0.85-1.17 [facility] HospitalUfsmxljTXVQNIEQMW5426-00-00 16:42:00 Test Item Value Reference Range Interpretation Comments PTT (test code = PTT) 29.4 s 22.9-35.8 [facility] HospitalVpvtnnfOLLEILAGXD2587-28-27 16:42:00 Test Item Value Reference Range Interpretation Comments PT (test code = PT) 12.8 s 12.0-14.7 [facility] HospitalWrtiuubAVYHDXMVYG5313-87-94 16:42:00 Test Item Value Reference Range Interpretation Comments INR (test code = INR) 0.96 0.85-1.17 [facility] HospitalDqsuldgWIGOOYDOPX2897-04-07 16:42:00 Test Item Value Reference Range Interpretation Comments PTT (test code = PTT) 29.4 s 22.9-35.8 [place] [id number] 16:42:00 Test Item Value Reference Range Interpretation Comments PT (test code = PT) 12.8 s 12.0-14.7 [facility] HospitalNszdqvkHORIZIYEDJ1070-18-16 16:42:00 Test Item Value Reference Range Interpretation Comments INR (test code = INR) 0.96 0.85-1.17 [facility]2017-12-05 15:26:00 Test Item Value Reference Range Interpretation Comments eGFR (test code = eGFR) 95 [facility]2017-12-05 15:26:00 Test Item Value Reference Range Interpretation Comments Creatinine Lvl (test code = Creatinine 0.92 0.50-1.40 Lvl) [facility]2017-12-05 15:26:00 Test Item Value Reference Range Interpretation Comments BUN (test code = BUN) 21 7-22 [facility] HospitalYvtttwuLBSTALVTLW6401-45-02 15:26:00 Test Item Value Reference Range Interpretation Comments MCV (test code = MCV) 84.7 80.0-94.0 [facility] HospitalGgqxvwvPLUNNUILVW0720-24-49 15:26:00 Test Item Value Reference Range Interpretation Comments Hct (test code = Hct) 41.3 42.0-54.0 [facility] HospitalFgjwyjkJJSLRYBINQ1004-87-83 15:26:00 Test Item Value Reference Range Interpretation Comments MCH (test code = MCH) 27.9 pg 27.0-31.0 [facility] HospitalAghajrdOQFFDMTPIS1469-47-23 15:26:00 Test Item Value Reference Range Interpretation Comments MCHC (test code = MCHC) 32.9 32.0-36.0 [facility] HospitalRofokoaQTMMKIPRWT1728-10-99 15:26:00 Test Item Value Reference Range Interpretation Comments WBC (test code = WBC) 7.2 3.7-10.4 [facility] HospitalEbzixuuCJTJFOBNHQ2774-71-48 15:26:00 Test Item Value Reference Range Interpretation Comments RBC (test code = RBC) 4.87 4.70-6.10 [facility] HospitalUnpkrrmXATDAZAXEB9336-53-85 15:26:00 Test Item Value Reference Range Interpretation Comments Hgb (test code = Hgb) 13.6 14.0-18.0 [facility] HospitalUurjppjCCQJIKNJHJ9312-43-29 15:26:00 Test Item Value Reference Range Interpretation Comments RDW (test code = RDW) 16.1 11.5-14.5 [facility] HospitalWkefrjnAQAYJJVKVH2295-42-64 15:26:00 Test Item Value Reference Range Interpretation Comments Platelet (test code = Platelet) 239 133-450 [facility] HospitalOkbuckvFPDGWWDXMK4623-46-35 15:26:00 Test Item Value Reference Range Interpretation Comments MPV (test code = MPV) 8.0 7.4-10.4 [facility]2017-12-05 15:26:00 Test Item Value Reference Range Interpretation Comments eGFR (test code = eGFR) 95 [place] 229807-12-05 15:26:00 Test Item Value Reference Range Interpretation Comments Creatinine Lvl (test code = Creatinine 0.92 0.50-1.40 Lvl) [facility]2017-12-05 15:26:00 Test Item Value Reference Range Interpretation Comments BUN (test code = BUN) 21 7-22 [facility] HospitalBuymjydTXUOEKFAFG7503-84-67 15:26:00 Test Item Value Reference Range Interpretation Comments MCV (test code = MCV) 84.7 80.0-94.0 [place] 875407-12-05 15:26:00 Test Item Value Reference Range Interpretation Comments Hct (test code = Hct) 41.3 42.0-54.0 [facility] HospitalZnwaplwRGHPMPNPMX3660-95-16 15:26:00 Test Item Value Reference Range Interpretation Comments MCH (test code = MCH) 27.9 pg 27.0-31.0 [facility] HospitalHpuntnkESZDCQKHMB1191-41-52 15:26:00 Test Item Value Reference Range Interpretation Comments MCHC (test code = MCHC) 32.9 32.0-36.0 [facility] HospitalBmvdkqhDRCPIQHPDS6416-30-36 15:26:00 Test Item Value Reference Range Interpretation Comments WBC (test code = WBC) 7.2 3.7-10.4 [facility] HospitalWjsobsrSFUQCFOJPB0444-68-46 15:26:00 Test Item Value Reference Range Interpretation Comments RBC (test code = RBC) 4.87 4.70-6.10 [facility] HospitalRsyamnvURLNXQDLCE4507-17-85 15:26:00 Test Item Value Reference Range Interpretation Comments Hgb (test code = Hgb) 13.6 14.0-18.0 [facility] HospitalVzqwqkvGGTWADFZSL9537-30-62 15:26:00 Test Item Value Reference Range Interpretation Comments RDW (test code = RDW) 16.1 11.5-14.5 [facility] HospitalPvfgdnrRJFAZXESET2039-94-33 15:26:00 Test Item Value Reference Range Interpretation Comments Platelet (test code = Platelet) 239 093-450 [facility] HospitalPxnnklxSJFZJQQCQA9723-51-74 15:26:00 Test Item Value Reference Range Interpretation Comments MPV (test code = MPV) 8.0 7.4-10.4 [facility]2017-12-05 15:26:00 Test Item Value Reference Range Interpretation Comments eGFR (test code = eGFR) 95 [facility]2017-12-05 15:26:00 Test Item Value Reference Range Interpretation Comments Creatinine Lvl (test code = Creatinine 0.92 0.50-1.40 Lvl) [facility]2017-12-05 15:26:00 Test Item Value Reference Range Interpretation Comments BUN (test code = BUN) 21 7-22 [facility] HospitalQbibpcgWVYBGOPFKC6282-70-07 15:26:00 Test Item Value Reference Range Interpretation Comments MCV (test code = MCV) 84.7 80.0-94.0 [facility] HospitalNdwkjajGVHLLVGNDT9161-31-28 15:26:00 Test Item Value Reference Range Interpretation Comments Hct (test code = Hct) 41.3 42.0-54.0 [facility] HospitalGdownedLDAAVQGIIJ1895-23-30 15:26:00 Test Item Value Reference Range Interpretation Comments MCH (test code = MCH) 27.9 pg 27.0-31.0 [facility] HospitalVaboqjpKGMHSMGIWA1267-18-23 15:26:00 Test Item Value Reference Range Interpretation Comments MCHC (test code = MCHC) 32.9 32.0-36.0 [facility] HospitalXmmrankCLYCNYEXUG5567-77-64 15:26:00 Test Item Value Reference Range Interpretation Comments WBC (test code = WBC) 7.2 3.7-10.4 [facility] HospitalYehhdjpJUVXCTGNVQ1778-34-54 15:26:00 Test Item Value Reference Range Interpretation Comments RBC (test code = RBC) 4.87 4.70-6.10 [facility] HospitalOxyhpdqSHBDNJDMLE4083-48-41 15:26:00 Test Item Value Reference Range Interpretation Comments Hgb (test code = Hgb) 13.6 14.0-18.0 [place] 875407-12-05 15:26:00 Test Item Value Reference Range Interpretation Comments RDW (test code = RDW) 16.1 11.5-14.5 [facility] HospitalXvwrgctMLZYAUCOSV8467-25-98 15:26:00 Test Item Value Reference Range Interpretation Comments Platelet (test code = Platelet) 239 074-450 [facility] HospitalOfbnvnuVGAGRWRNIB4511-59-46 15:26:00 Test Item Value Reference Range Interpretation Comments MPV (test code = MPV) 8.0 7.4-10.4 [facility]2017-12-05 15:26:00 Test Item Value Reference Range Interpretation Comments eGFR (test code = eGFR) 95 [facility]2017-12-05 15:26:00 Test Item Value Reference Range Interpretation Comments Creatinine Lvl (test code = Creatinine 0.92 0.50-1.40 Lvl) [facility]2017-12-05 15:26:00 Test Item Value Reference Range Interpretation Comments BUN (test code = BUN) 21 7-22 [facility] HospitalRkkqdcyMDWJYCGUZB3971-67-28 15:26:00 Test Item Value Reference Range Interpretation Comments MCV (test code = MCV) 84.7 80.0-94.0 [facility] HospitalEzxlbgsFCEBSJBQNW5276-93-49 15:26:00 Test Item Value Reference Range Interpretation Comments Hct (test code = Hct) 41.3 42.0-54.0 [facility] HospitalTcfsztrYOPFNBCAVM7478-93-17 15:26:00 Test Item Value Reference Range Interpretation Comments MCH (test code = MCH) 27.9 pg 27.0-31.0 [facility] HospitalPqwrpdgOSAXBYDMTJ8949-59-78 15:26:00 Test Item Value Reference Range Interpretation Comments MCHC (test code = MCHC) 32.9 32.0-36.0 [facility] HospitalJotkbixOEIRDKAISY4670-80-86 15:26:00 Test Item Value Reference Range Interpretation Comments WBC (test code = WBC) 7.2 3.7-10.4 [facility] HospitalYxwtlggIIGAHNUXLA0590-74-71 15:26:00 Test Item Value Reference Range Interpretation Comments RBC (test code = RBC) 4.87 4.70-6.10 [facility] HospitalYbapgzyQNLAOERVAJ4365-48-83 15:26:00 Test Item Value Reference Range Interpretation Comments Hgb (test code = Hgb) 13.6 14.0-18.0 [facility] HospitalVroibnrTRMRHPGESY5349-68-71 15:26:00 Test Item Value Reference Range Interpretation Comments RDW (test code = RDW) 16.1 11.5-14.5 [place] 875407-12-05 15:26:00 Test Item Value Reference Range Interpretation Comments Platelet (test code = Platelet) 239 133-450 [facility] HospitalIbqhfgkKWIZGHLNTC3855-48-73 15:26:00 Test Item Value Reference Range Interpretation Comments MPV (test code = MPV) 8.0 7.4-10.4 [facility]2017-12-05 15:26:00 Test Item Value Reference Range Interpretation Comments eGFR (test code = eGFR) 95 [facility]2017-12-05 15:26:00 Test Item Value Reference Range Interpretation Comments Creatinine Lvl (test code = Creatinine 0.92 0.50-1.40 Lvl) [facility]2017-12-05 15:26:00 Test Item Value Reference Range Interpretation Comments BUN (test code = BUN) 21 7-22 [facility] HospitalEzvnbcxJQETBPLANH7702-01-51 15:26:00 Test Item Value Reference Range Interpretation Comments MCV (test code = MCV) 84.7 80.0-94.0 [facility] HospitalEmmcfhsYWJZGGIOJQ8569-81-15 15:26:00 Test Item Value Reference Range Interpretation Comments Hct (test code = Hct) 41.3 42.0-54.0 [facility] HospitalXmwnxijUZFFHLCJUR2182-79-15 15:26:00 Test Item Value Reference Range Interpretation Comments MCH (test code = MCH) 27.9 pg 27.0-31.0 [facility] HospitalTrggffuTOBDQZKXMB6449-97-03 15:26:00 Test Item Value Reference Range Interpretation Comments MCHC (test code = MCHC) 32.9 32.0-36.0 [facility] HospitalNovxyhaLDCUTUAJLO4089-53-02 15:26:00 Test Item Value Reference Range Interpretation Comments WBC (test code = WBC) 7.2 3.7-10.4 [facility] HospitalYnvorjeAPPMTTODDA8216-72-58 15:26:00 Test Item Value Reference Range Interpretation Comments RBC (test code = RBC) 4.87 4.70-6.10 [facility] HospitalNswhikcBAXMGQDXQW3969-80-67 15:26:00 Test Item Value Reference Range Interpretation Comments Hgb (test code = Hgb) 13.6 14.0-18.0 [facility] HospitalXyfyuodHCMJZFNEUD2024-38-13 15:26:00 Test Item Value Reference Range Interpretation Comments RDW (test code = RDW) 16.1 11.5-14.5 [facility] HospitalWptdppiQQYRPEYMSS5606-58-89 15:26:00 Test Item Value Reference Range Interpretation Comments Platelet (test code = Platelet) 239 133-450 [facility] HospitalUapgqqnKBTTPWIYTJ0431-70-50 15:26:00 Test Item Value Reference Range Interpretation Comments MPV (test code = MPV) 8.0 7.4-10.4 [facility]2017-12-05 15:26:00 Test Item Value Reference Range Interpretation Comments eGFR (test code = eGFR) 95 [facility]2017-12-05 15:26:00 Test Item Value Reference Range Interpretation Comments Creatinine Lvl (test code = Creatinine 0.92 0.50-1.40 Lvl) [facility]2017-12-05 15:26:00 Test Item Value Reference Range Interpretation Comments BUN (test code = BUN) 21 7-22 [place] 875407-12-05 15:26:00 Test Item Value Reference Range Interpretation Comments MCV (test code = MCV) 84.7 80.0-94.0 [facility] HospitalMrnwkcuFHJZCNWUQC4455-29-92 15:26:00 Test Item Value Reference Range Interpretation Comments Hct (test code = Hct) 41.3 42.0-54.0 [facility] HospitalCzqbipgLDVEABTVQQ3776-57-12 15:26:00 Test Item Value Reference Range Interpretation Comments MCH (test code = MCH) 27.9 pg 27.0-31.0 [facility] HospitalMmoezxvCJGOCLOIFP3151-11-55 15:26:00 Test Item Value Reference Range Interpretation Comments MCHC (test code = MCHC) 32.9 32.0-36.0 [facility] HospitalDamydvkUTCYCTOEXW9725-45-48 15:26:00 Test Item Value Reference Range Interpretation Comments WBC (test code = WBC) 7.2 3.7-10.4 [facility] HospitalOzsmkqdPGIRCCVRQZ1225-08-81 15:26:00 Test Item Value Reference Range Interpretation Comments RBC (test code = RBC) 4.87 4.70-6.10 [place] 875407-12-05 15:26:00 Test Item Value Reference Range Interpretation Comments Hgb (test code = Hgb) 13.6 14.0-18.0 [facility] HospitalStxumvpRNXEMOSBGY9821-29-10 15:26:00 Test Item Value Reference Range Interpretation Comments RDW (test code = RDW) 16.1 11.5-14.5 [facility] HospitalPblfavgDGTTEVDUVG5280-74-28 15:26:00 Test Item Value Reference Range Interpretation Comments Platelet (test code = Platelet) 239 133-450 [facility] HospitalDbhdystUEWMRDZDIV1770-62-53 15:26:00 Test Item Value Reference Range Interpretation Comments MPV (test code = MPV) 8.0 7.4-10.4 [facility]2017-12-05 15:26:00 Test Item Value Reference Range Interpretation Comments eGFR (test code = eGFR) 95 [facility]2017-12-05 15:26:00 Test Item Value Reference Range Interpretation Comments Creatinine Lvl (test code = Creatinine 0.92 0.50-1.40 Lvl) [facility]2017-12-05 15:26:00 Test Item Value Reference Range Interpretation Comments BUN (test code = BUN) 21 7-22 [facility] HospitalNedbufbMQRUTDSNHQ9454-56-01 15:26:00 Test Item Value Reference Range Interpretation Comments MCV (test code = MCV) 84.7 80.0-94.0 [place] 875407-12-05 15:26:00 Test Item Value Reference Range Interpretation Comments Hct (test code = Hct) 41.3 42.0-54.0 [facility] HospitalFyxixorJLKYBHTCZA7555-15-68 15:26:00 Test Item Value Reference Range Interpretation Comments MCH (test code = MCH) 27.9 pg 27.0-31.0 [facility] HospitalNelqhplTXGIGNCUZQ4111-16-14 15:26:00 Test Item Value Reference Range Interpretation Comments MCHC (test code = MCHC) 32.9 32.0-36.0 [facility] HospitalZephfmzYCMQOZMTEJ9185-15-40 15:26:00 Test Item Value Reference Range Interpretation Comments WBC (test code = WBC) 7.2 3.7-10.4 [facility] HospitalVsxipvjONXALKOMXW9288-74-20 15:26:00 Test Item Value Reference Range Interpretation Comments RBC (test code = RBC) 4.87 4.70-6.10 [facility] HospitalDcmhrxgXPIMARXVPB3532-38-26 15:26:00 Test Item Value Reference Range Interpretation Comments Hgb (test code = Hgb) 13.6 14.0-18.0 [facility] HospitalMyhwevbKZISUPHHLT6900-23-62 15:26:00 Test Item Value Reference Range Interpretation Comments RDW (test code = RDW) 16.1 11.5-14.5 [facility] HospitalVvusbqjOZVYBPVFEX6856-09-11 15:26:00 Test Item Value Reference Range Interpretation Comments Platelet (test code = Platelet) 239 133-450 [place] 875407-12-05 15:26:00 Test Item Value Reference Range Interpretation Comments MPV (test code = MPV) 8.0 7.4-10.4 [facility]2017-12-05 15:26:00 Test Item Value Reference Range Interpretation Comments eGFR (test code = eGFR) 95 [facility]2017-12-05 15:26:00 Test Item Value Reference Range Interpretation Comments Creatinine Lvl (test code = Creatinine 0.92 0.50-1.40 Lvl) [facility]2017-12-05 15:26:00 Test Item Value Reference Range Interpretation Comments BUN (test code = BUN) 21 7-22 [facility] HospitalUozjkwbIDBLNHCBGM0367-96-61 15:26:00 Test Item Value Reference Range Interpretation Comments MCV (test code = MCV) 84.7 80.0-94.0 [facility] HospitalHhreoddDUDNIOPGHQ5650-24-20 15:26:00 Test Item Value Reference Range Interpretation Comments Hct (test code = Hct) 41.3 42.0-54.0 [facility] HospitalJxlkxgpOWRRJMMDCW4958-93-68 15:26:00 Test Item Value Reference Range Interpretation Comments MCH (test code = MCH) 27.9 pg 27.0-31.0 [facility] HospitalRtrssnsMKCXWRNPON3552-83-46 15:26:00 Test Item Value Reference Range Interpretation Comments MCHC (test code = MCHC) 32.9 32.0-36.0 [facility] HospitalKreycaxDNDXXYABDH2026-00-16 15:26:00 Test Item Value Reference Range Interpretation Comments WBC (test code = WBC) 7.2 3.7-10.4 [facility] HospitalEoawgrhFUSYNQGJFT2259-99-48 15:26:00 Test Item Value Reference Range Interpretation Comments RBC (test code = RBC) 4.87 4.70-6.10 [facility] HospitalHjeazzyGNVUWUTMCJ8674-98-68 15:26:00 Test Item Value Reference Range Interpretation Comments Hgb (test code = Hgb) 13.6 14.0-18.0 [facility] HospitalYoantjxSJQQGHIPWJ7196-72-20 15:26:00 Test Item Value Reference Range Interpretation Comments RDW (test code = RDW) 16.1 11.5-14.5 [facility] HospitalVxemmlaCLSILUIBYM1235-66-13 15:26:00 Test Item Value Reference Range Interpretation Comments Platelet (test code = Platelet) 239 133-450 [facility] HospitalPedhpcbJDOGJIQKWQ7362-44-91 15:26:00 Test Item Value Reference Range Interpretation Comments MPV (test code = MPV) 8.0 7.4-10.4 [facility]2017-12-05 15:26:00 Test Item Value Reference Range Interpretation Comments eGFR (test code = eGFR) 95 [facility]2017-12-05 15:26:00 Test Item Value Reference Range Interpretation Comments Creatinine Lvl (test code = Creatinine 0.92 0.50-1.40 Lvl) [facility]2017-12-05 15:26:00 Test Item Value Reference Range Interpretation Comments BUN (test code = BUN) 21 7-22 [facility] HospitalRbrejteFNBZJHXVES7252-14-19 15:26:00 Test Item Value Reference Range Interpretation Comments MCV (test code = MCV) 84.7 80.0-94.0 [facility] HospitalHgymwdhXHJFXCOULY6449-75-41 15:26:00 Test Item Value Reference Range Interpretation Comments Hct (test code = Hct) 41.3 42.0-54.0 [facility] HospitalXjnpsiyNPFXVOSDKU7198-38-41 15:26:00 Test Item Value Reference Range Interpretation Comments MCH (test code = MCH) 27.9 pg 27.0-31.0 [facility] HospitalXyubknmTCAGUFTVWV2998-32-98 15:26:00 Test Item Value Reference Range Interpretation Comments MCHC (test code = MCHC) 32.9 32.0-36.0 [facility] HospitalFpcdkpwLASIEMXWYD5158-03-39 15:26:00 Test Item Value Reference Range Interpretation Comments WBC (test code = WBC) 7.2 3.7-10.4 [facility] HospitalMcmovzcJRQMPIRFFT1058-71-38 15:26:00 Test Item Value Reference Range Interpretation Comments RBC (test code = RBC) 4.87 4.70-6.10 [facility] HospitalHmhtkbiOXPEATWJPG5187-44-05 15:26:00 Test Item Value Reference Range Interpretation Comments Hgb (test code = Hgb) 13.6 14.0-18.0 [facility] HospitalKhrniqfXLGBAZWKUN0103-21-67 15:26:00 Test Item Value Reference Range Interpretation Comments RDW (test code = RDW) 16.1 11.5-14.5 [facility] HospitalGetxcezZKDFADYSFZ8784-45-60 15:26:00 Test Item Value Reference Range Interpretation Comments Platelet (test code = Platelet) 239 133-450 [facility] HospitalSjuofqiPUSTIYRGLL7279-29-63 15:26:00 Test Item Value Reference Range Interpretation Comments MPV (test code = MPV) 8.0 7.4-10.4 [place] [id number] 05:57:00 Test Item Value Reference Range Interpretation [...] ( 4 - SerumAlbumin)] EGFR if >60 [place] (test code mL/min/1.73m\\ = EGFRAA) S\\2 EGFR if Non- >60 Estimate d Glomerular [place] (test code mL/min/1.73m\\ Filtrat ion Rate (eGFR) [...] and management of c hronic kidney failure. [facility] WITH AUTO [id number] 05:42:00 Test Item Value Reference Range Interpretation [...] 1.0 % 0.0-0.4 H IG%) [facility] 05:[facility]00 Test Item Value Reference Range [...] ( 4 - SerumAlbumin)] EGFR if >60 [place] (test code mL/min/1.73m\\ = EGFRAA) S\\2 EGFR if Non- >60 Estimate d Glomerular [place] (test code mL/min/1.73m\\ Filtrat ion Rate (eGFR) [...] and management of c hronic kidney failure. [facility] WITH AUTO [id number] 05:27:00 Test Item Value Reference Range Interpretation [...] 1.7 % 0.0-0.4 H IG%) [facility] 04:36:00 Test Item Value Reference Range [...] ( 4 - SerumAlbumin)] EGFR if >60 [place] (test code mL/min/1.73m\\ = EGFRAA) S\\2 EGFR if Non- >60 Estimate d Glomerular [place] (test code mL/min/1.73m\\ Filtrat ion Rate (eGFR) [...] and management of c hronic kidney failure. [facility] WITH AUTO [id number] 04:14:00 Test Item Value Reference Range Interpretation [...] 1.9 % 0.0-0.4 H IG%) [facility] 04:40:00 Test Item Value Reference Range [...] ( 4 - SerumAlbumin)] EGFR if >60 [place] (test code mL/min/1.73m\\ = EGFRAA) S\\2 EGFR if Non- >60 Estimate d Glomerular [place] (test code mL/min/1.73m\\ Filtrat ion Rate (eGFR) [...] of c hronic kidney failure. [facility]CB WITH AUTO [id number] 04:09:00 Test Item Value Reference Range Interpretation [...] code = 2.4 % 0.0-0.4 H IG%) [facility] HospitalCULTURE, [id number] 06:50:00To start 15mins after 1st cultureSpecimen: BloodCollected: 01/18/2017 04:05 Status: Final Last Updated: 01/23/2017 06:49 (1) To [id number] after 1st culture Culture Result (Final) (Final) No Growth [facility] [address] [facility]CULTCON[facility], [id number] 06:50:00Specimen: BloodCollected: 01/18/2017 03:55 Status: Final Last Updated: 01/23/2017 06:49 Culture Result (Final) (Final) No Growth [facility] Days[facility]inCB WITH AUTO [id number] 04:31:00 Test Item Value Reference Range Interpretation [...] 0.0-0.4 H IG%) [facility]-PrcaivHHT7379-71-80 04:19:00 Test Item Value Reference Range Interpretation [...] ( 4 - SerumAlbumin)] EGFR if >60 [place] (test code mL/min/1.73m\\ = EGFRAA) S\\2 EGFR if Non- >60 Estimate d Glomerular [place] (test code mL/min/1.73m\\ Filtrat ion Rate (eGFR) [...] hronic kidney failure. [facility]kinMARY [facility] WITH AUTO [id number] 04:57:00 Test Item Value Reference Range Interpretation [...] 4.0 % 0.0-0.4 H IG%) CBC AUTO [facility]-[id number] 04:35:00 Test Item Value Reference Range Interpretation [...] ( 4 - SerumAlbumin)] EGFR if >60 [place] (test code mL/min/1.73m\\ = EGFRAA) S\\2 EGFR if Non- >60 Estimate d Glomerular [place] (test code mL/min/1.73m\\ Filtrat ion Rate (eGFR) [...] hronic kidney failure. [facility]in[facility] WITH AUTO [id number] 05:01:00 Test Item Value Reference Range Interpretation [...] 4.5 % 0.0-0.4 H IG%) CBC AUTO diffMoundview Memorial Hospital And Clinics-MmokdwRLE7328-43-94 04:56:00 Test Item Value Reference Range Interpretation [...] ( 4 - SerumAlbumin)] EGFR if >60 [place] (test code mL/min/1.73m\\ = EGFRAA) S\\2 EGFR if Non- >60 Estimate d Glomerular [place] (test code mL/min/1.73m\\ Filtrat ion Rate (eGFR) [...] hronic kidney failure. [facility]-fcommunity [facility] hospitalCB WITH AUTO [id number] 05:57:00 Test Item Value Reference Range Interpretation [...] 0.0-0.4 H IG%) [facility] ClinicsLbpreu-IqepxzBDTEOMNPU5695-72-27 05:41:00 Test Item Value Reference Range Interpretation Comments Magnesium (test code = MG) 2.0 mg/dl 1.6-2.3 [facility]-NfrjkuNZR7269-58-25 05:41:00 Test Item Value Reference Range Interpretation [...] ( 4 - SerumAlbumin)] EGFR if >60 [place] (test code mL/min/1.73m\\ = EGFRAA) S\\2 EGFR if Non- >60 Estimate d Glomerular [place] (test code mL/min/1.73m\\ Filtrat ion Rate (eGFR) [...] hronic kidney failure. [facility]-fkinLACTIC ACID [id number] 06:43:00 Test Item Value Reference Range Interpretation Comments LACTATE (test code = LAC) 0.9 mmol/l 0.7-2.0 [facility]-fkinGLYCOSALATED [id number] 05:41:00 Test Item Value Reference Range Interpretation Comments Hemoglobin A1C (test 9.06 % 4.3-6.0 A code = GLYCO) Mean Plasma Glucose 245 mg/dl 90-180 WHEN BONIFACIO T RESULTS FOR (test code = MPG) A1C EXCEED 14.0, THE LINEAR LIMIT OF THE INSTRUMENT, THE CALCULATED RESU LT FOR THE MEAN GLUCOS E IS NOT RELIABLE. [facility]-fkinCORONARY [id number] 05:09:00 Test Item Value Reference Range Interpretation [...] 4.4 Average 9.6 7.1 2X Average 24.0 1 1.0 3X Average vLDL (test code = 37 mg/dl 30-60 VLDL) [facility] ClinicsXgheax-[id number] 04:51:00 Test Item Value Reference Range Interpretation Comments Magnesium (test code = MG) 2.1 mg/dl 1.6-2.3 [facility]-EstrftTXT5778-29-18 04:51:00 Test Item Value Reference Range Interpretation Comments CPK (test code = CPK) 93 U/L 30-135 [facility] HospitalkinLIPASE, [id number] 04:43:00 Test Item Value Reference Range Interpretation Comments Lipase (test code = LIPA) 116 U/L 8-223 [facility]-UtykidEAA9776-88-55 04:43:00 Test Item Value Reference Range Interpretation [...] ( 4 - SerumAlbumin)] EGFR if >60 [place] (test code mL/min/1.73m\\ = EGFRAA) S\\2 EGFR if Non- >60 Estimate d Glomerular [place] (test code mL/min/1.73m\\ Filtrat ion Rate (eGFR) [...] and management of c hronic kidney failure. [facility] (HEMOGRAM ONLY)2017-01-18 04:37:00 Test Item Value [...] ONLYAur[facility] [place]
[2023-04-11] MEDS ORDERED: ASPIRIN 81 MG CHEWABLE TABLET ONE (06:29)
[2023-04-11] MEDS ORDERED: NA CHLORIDE 0.9% 1,000 ML ONE (06:29)
[2023-04-11 06:34] LABS: Absolute Lymphocytes (CBC) 1.2 K/uL (0.7-4.9); Hematocrit 32.7 % (39.6-49.0); Lymphocytes % 18.2 % (15.3-44.8); MCV 82.1 fL (80-100); MPV 7.6 fL (7.6-11.3); Platelets 213 thou/uL (152-406); RBC Red Blood Cell Count 3.98 M/uL (4.33-5.43)
[2023-04-11 07:02] LABS: Albumin 3.2 g/dL (3.4-5.0); Bilirubin Direct 0.1 mg/dL (0-0.2); Bilirubin Indirect, Calculated 0.2 mg/dL (0.2-0.8); Bilirubin Total 0.3 mg/dL (0.2-1.0); Potassium 3.5 mEq/L (3.5-5.1); Troponin High Sensitivity 6.1 pg/mL (<58.9)
--- NOTE | 2023-04-11 07:20 | RAD REPORT ---
EXAM DESCRIPTION: CT - Head Brain Wo Cont - 04/11/2023 7:03 am CLINICAL HISTORY: Dizziness COMPARISON: 2014 TECHNIQUE: Computed axial tomography of the head was obtained. IV contrast was not requested. All CT scans are performed using dose optimization technique as appropriate and may include automated exposure control or mA/KV adjustment according to patient size. FINDINGS: An intracranial bleed is not seen The ventricles are normal in caliber No significant hypodense areas within the brain visualized No extra-axial fluid collection is noted. Fluid within the sinuses/ mastoids is not seen IMPRESSION: No acute intracranial abnormality is seen If patient's symptoms persist MRI of the brain would be recommended
--- NOTE | 2023-04-11 08:17 | EDPHYS ---
Physician Documentation [facility] Name: Nicola Harvey Age: 58 yrs Sex: Male : 1965 Arrival Date: 04/11/2023 Time: 05:56 Bed 8 Private MD: ED Physician Asael Bernal HPI: 04/11 06:07 This 58 yrs old Male presents to ER via EMS with complaints of near syncope, sp4 hypotension . 06:07 PMH - Allergies: Zosyn; PENICILLINS; Jardiance; Invokana; Home Meds: Brilinta 90 mg sp4 oral tablet PMHx: CHF; chronic back pain; Diabetes - IDDM; Hyperlipidemia; Hypertension; Obesity; . 06:27 Patient presents with EMS secondary to near syncopal episode that he has experienced sp4 prior to going to work. Patient developed blurry vision dizziness diaphoresis and near syncopal episode associated with hypotension noted by EMS. EMS reported patient was hypotensive at the scene and they put him in Trendelenburg. On arrival patient denied chest pain but reported feeling unwell. . 06:50 PMH - Date of Procedure: 03/17/2023 Surgeon: NIYAH CEDILLO Procedures Performed: 1. sp4 Selective coronary angiogram. 2. PCI of severe proximal and mid left circumflex. I used 2.75 x 38 mm Synergy drug-eluting stent. Indication: Unstable angina with known severe coronary artery disease. Findings: 1. Left main is large and normal. 2. LAD; very large vessel with widely patent proximal to mid LAD stent. Diagonal 1 branch has 50% stenosis ostially jailed from the initial procedure. 3. Left circumflex; large vessel, proximal 80%, mid to distal 80%, status post successful PCI using 1 stent as above.. Historical: - Allergies: 06:01 Invokana; rv 06:01 Jardiance; rv 06:01 PENICILLINS; rv 06:01 Zosyn; rv - PMHx: 06:01 CHF; chronic back pain; Diabetes - IDDM; Hyperlipidemia; Hypertension; Obesity; rv - PSHx: 06:01 addenoidectomy; Cholecystectomy; rhinoplasty; rv - Immunization history:: Adult Immunizations up to date. - Social history:: Smoking status: Patient denies any tobacco usage or history of. - Family history:: not pertinent. ROS: 06:27 Constitutional: Negative for fever, chills, and weight loss, positive generalized sp4 weakness positive diaphoresis positive near syncopal episode positive dizziness Eyes: Negative for injury, pain, redness, and discharge, 06:27 All other systems are negative, Exam: 06:27 Constitutional: This is a well developed, well nourished patient who is awake, alert, sp4 and in no acute distress. Positive generalized weakness Head/Face: Normocephalic, atraumatic. Eyes: Pupils equal round and reactive to light, extra-ocular motions intact. Lids and lashes normal. Conjunctiva and sclera are not injected. Cornea within normal limits. Periorbital areas with no swelling, redness, or edema. ENT: Nares patent. No nasal discharge, no septal abnormalities noted. Tympanic membranes are normal and external auditory canals are clear. Oropharynx with no redness, swelling, or masses, exudates, or evidence of obstruction, uvula midline. Mucous membranes moist. Neck: Trachea midline, no thyromegaly or masses palpated, and no cervical lymphadenopathy. Supple, full range of motion without nuchal rigidity, or vertebral point tenderness. Chest/axilla: Normal chest wall appearance and motion. Nontender with no deformity. No lesions are appreciated. Cardiovascular: Regular rate and rhythm with a normal S1 and S2. No gallops, murmurs, or rubs. Normal PMI, no JVD. No pulse deficits. Respiratory: Lungs have equal breath sounds bilaterally, clear to auscultation and percussion. No rales, rhonchi or wheezes noted. No increased work of breathing, no retractions or nasal flaring. Abdomen/GI: Soft, non-tender, with normal bowel sounds. No distension or tympany. No guarding or rebound. No evidence of tenderness throughout. Back: No spinal tenderness. No costovertebral tenderness. Skin: Warm, dry with normal turgor. Normal color with no rashes, no lesions, and no evidence of cellulitis. MS/ Extremity: Pulses equal, no cyanosis. Neurovascular intact. Full, normal range of motion. Neuro: Awake and alert, GCS 15, oriented to person, place, time, and situation. Cranial nerves II-XII grossly intact. Motor strength 5/5 in all extremities. Sensory grossly intact. Psych: Awake, alert, with orientation to person, place and time. Behavior, mood, and affect are within normal limits 06:27 ECG was reviewed by the Attending Physician. EKG time 611, there is normal sinus rhythm sp4 at the rate of 69, normal EKG, no active ectopy Vital Signs: 05:59 BP 117 / 63; Pulse 70; Resp 17; Temp 98; Pulse Ox 100% ; Weight 139 kg (M); Height 5 rv ft. 9 in. ; 06:00 BP 108 / 54; Pulse 66; Resp 16 S; Pulse Ox 95% on R/A; jw7 07:00 BP 119 / 60; Pulse 60; Resp 12 S; Pulse Ox 96% on R/A; jw7 08:32 BP 122 / 57; Pulse 59; Resp 18; Pulse Ox 99% on R/A; ph 09:35 BP 142 / 64; Pulse 81; Resp 18; Pulse Ox 100% on R/A; ph 10:06 BP 123 / 60; Pulse 61; Resp 18; Pulse Ox 97% on R/A; ph 05:59 Body Mass Index 45.25 (139.00 kg, 175.26 cm) rv NIH Stroke Scale Scores: 06:27 NIHSS Score: 0 sp4 Rohit Coma Score: 06:27 Eye Response: spontaneous(4). Motor Response: obeys commands(6). Verbal Response: sp4 oriented(5). Total: 15. MDM: 06:17 Patient medically screened. sp4 07:09 Differential Diagnosis altered mental status, sepsis, flu. Data reviewed: vital signs, sp4 nurses notes, EMS record, lab test result(s), EKG, radiologic studies, CT scan, plain films. Consideration of Admission/Observation Escalation of care including admission/observation considered. Transition of care: After a detail discussion of the patient's case, care is transferred to Asael Bernal MD. 08:14 Management of patient was discussed with the following: Hospitalist: Will admit patient rn for further evaluation and cardiology consultation. Independent interpretation of the following test(s) in the Emergency Department EKG: See my EKG interpretation above X-Ray: My interpretation is Chest x-ray images negative for pneumothorax or pulmonary edema per my interpretation. Care significantly affected by the following chronic conditions: Diabetes, Hypertension, Congestive Heart Failure. Counseling: I had a detailed discussion with the patient and/or guardian regarding the historical points, exam findings, and any diagnostic results supporting the discharge/admit diagnosis, lab results, radiology results, the need for further work-up and treatment in the hospital. Response to treatment: the patient's symptoms have markedly improved after treatment, and as a result, I will admit patient. ED course: Patient states had stents in January and again in February with Dr. Cedillo, has been having chest pain once again for the last few days. Was at rest today driving to work when had a near syncopal episode associated with blurred vision, chest pain, diaphoresis. Work-up here grossly negative, negative troponin, no ischemia on ECG, but still does not feel well.. 10:32 ED course: Consulted with Dr. Cedillo, notified of admission and consultation, and will rn see patient. . 04/11 06:04 Order name: Basic Metabolic Panel; Complete Time: 07:04 sp4 04/11 06:04 Order name: CBC with Diff; Complete Time: 06:43 sp4 04/11 06:04 Order name: LFT's; Complete Time: 07:04 sp4 04/11 06:04 Order name: Magnesium; Complete Time: 07:04 sp4 04/11 06:04 Order name: NT PRO-BNP; Complete Time: 07:04 sp4 04/11 06:04 Order name: PT-INR; Complete Time: 06:43 sp4 04/11 06:04 Order name: Troponin HS; Complete Time: 07:04 sp4 04/11 06:06 Order name: COVID-19 SARS RT PCR; Complete Time: 07:45 sp4 04/11 10:50 Order name: T4 Free; Complete Time: 12:12 EDMO 04/11 10:50 Order name: Thyroid Stimulating Hormone; Complete Time: 12:12 EDMS 04/11 10:50 Order name: Basic Metabolic Panel EDMO 04/11 10:50 Order name: Basic Metabolic Panel EDMO 04/11 10:50 Order name: Basic Metabolic Panel EDMO 04/11 10:50 Order name: Basic Metabolic Panel EDMO 04/11 10:50 Order name: Basic Metabolic Panel EDMO 04/11 10:50 Order name: Basic Metabolic Panel EDMO 04/11 10:50 Order name: CBC with Automated Diff EDMO 04/11 10:50 Order name: CBC with Automated Diff EDMS 04/11 10:50 Order name: CBC with Automated Diff EDMS 04/11 10:50 Order name: CBC with Automated Diff EDMS 04/11 10:50 Order name: CBC with Automated Diff EDMS 04/11 10:50 Order name: CBC with Automated Diff EDMS 04/11 10:50 Order name: Magnesium EDMS 04/11 10:50 Order name: Magnesium EDMS 04/11 10:50 Order name: Magnesium EDMS 04/11 10:50 Order name: Magnesium EDMS 04/11 10:50 Order name: Magnesium EDMS 04/11 10:50 Order name: Magnesium EDMS 04/11 10:50 Order name: Phosphorus EDMS 04/11 10:50 Order name: Phosphorus EDMS 04/11 10:50 Order name: Phosphorus EDMS 04/11 10:50 Order name: Phosphorus EDMS 04/11 10:50 Order name: Phosphorus EDMS 04/11 10:50 Order name: Phosphorus EDMS 04/11 10:50 Order name: Troponin High Sensitivity EDMS 04/11 10:50 Order name: Troponin High Sensitivity EDMS 04/11 10:50 Order name: Troponin High Sensitivity EDMS 04/11 10:56 Order name: Hemoglobin A1c EDMS 04/11 10:56 Order name: Lipid Profile EDMS 04/11 06:04 Order name: XRAY Chest (1 view); Complete Time: 12:12 sp4 04/11 06:31 Order name: CT Head Brain wo Cont; Complete Time: 07:45 sp4 04/11 06:04 Order name: EKG; Complete Time: 06:04 sp4 04/11 10:50 Order name: CONS Physician Consult [facility] 04/11 06:04 Order name: Cardiac monitoring; Complete Time: 06:14 4 04/11 06:04 Order name: EKG - Nurse/Tech; Complete Time: 06:14 sp4 04/11 06:04 Order name: IV Saline Lock; Complete Time: 06:29 sp4 04/11 06:04 Order name: Labs collected and sent; Complete Time: 06:29 sp4 04/11 06:04 Order name: O2 Per Protocol; Complete Time: 06:14 sp4 04/11 06:04 Order name: O2 Sat Monitoring; Complete Time: 06:14 sp4 EC:27 Rate is 69 beats/min. Rhythm is regular, Normal Sinus Rhythm. QRS Embarrass is Normal. VA sp4 interval is normal. QRS interval is normal. QT interval is normal. No Q waves. T waves are Normal. No ST changes noted. Clinical impression: Normal ECG. Interpreted by me. Reviewed by me. Administered Medications: 06:29 Drug: NS 0.9% IV 1000 ml IV at 1 bolus Per protocol; 1000 mL bolus Route: IV; Rate: 1 jw7 bolus; Site: right antecubital; 06:30 Drug: Aspirin PO Chewable Tablet 324 mg PO once; 81 mg tablets x 4 Route: PO; jw7 Disposition Summary: 04/11/23 08:17 Hospitalization Ordered Notes: Hospitalization Status: Observation rn Location: Telemetry/MedSurg (observation) rn Condition: Stable rn Problem: new rn Symptoms: have improved rn Bed/Room Type: Standard rn Provider: Latoya Mcknight(04/11/23 11:47) rn Room Assignment: 207(04/11/23 12:16) eb Diagnosis - Near syncope rn - 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 Dysarthria (speech clarity - read or repeat words) - 0(Normal) 11. Extinction and Inattention (visual/tactile/auditory/spatial/personal) - 0(No abnormality) 1a. Level of Consciousness (LOC) - 0(Alert) 1b. Level of Consciousness (LOC) (Month \T\ Age) - 0(Both) 1c. LOC Commands (Open \T\ Closes Eyes/Complaint Manager) - 0(Both) 2. Best Gaze (Lateral Gaze Paresis) - 0(Normal) 3. Visual Field Loss - 0(No visual loss) 4. Facial Palsy - 0(Normal) 5a. Left Arm: Motor (10-second hold) - 0(No drift) 5b. Right Arm: Motor (10-second hold) - 0(No drift) 6a. Left Leg: Motor (5-second hold - always test supine) - 0(No drift) 6b. Right Leg: Motor (5-second hold - always test supine) - 0(No drift) 7. Limb Ataxia (finger/nose \T\ heel/grant - test with eyes open) - 0(Absent) 8. Sensory Loss (pinprick arms/legs/face) - 0(Normal) 9. Best Language: Aphasia (description/naming/reading) - 0(No aphasia) Initials: sp4 Signatures: Dispatcher [employer] EDMS Asael Bernal MD MD rn Botello, Elizabeth eb Vicente, Ronaldo, RN RN Raissa Johnson RN RN jw7 Dean Hernandez MD MD sp4 Corrections: (The following items were deleted from the chart) 10:56 10:50 Lipid Profile ordered. EDMS EDMS 10:56 10:50 Lipid Profile ordered. EDMS EDMS 11:47 08:17 Joey Escalante rn, rn 12:16 08:17 nick wood
--- NOTE | 2023-04-11 08:17 | ER ---
Nurse's Notes [facility] Name: Nicola Harvey Age: 58 yrs Sex: Male : 1965 Arrival Date: 04/11/2023 Time: 05:56 Bed 8 Private MD: Diagnosis: Near syncope;Chest pain, unspecified Presentation: 04/11 05:59 Chief complaint: EMS states: PT HAD SUDDEN ONSET OF BLURRY VISION, WEAKNESS AND rv DIZZINESS UPON ARRIVAL TO WORK. DENIES SOB AND CP. BGL IS 79. Coronavirus screen: At this time, the client does not indicate any symptoms associated with coronavirus-19. Ebola Screen: No symptoms or risks identified at this time. Initial Sepsis Screen: Does the patient meet any 2 criteria? No. Patient's initial sepsis screen is negative. Does the patient have a suspected source of infection? No. Patient's initial sepsis screen is negative. Risk Assessment: Do you want to hurt yourself or someone else? Patient reports no desire to harm self or others. Onset of symptoms was April 11, 2023. 05:59 Method Of Arrival: EMS: [facility] rv 05:59 Acuity: ANGE 2 rv Triage Assessment: 06:01 General: Appears comfortable, Behavior is calm, cooperative. Pain: Denies pain. Neuro: rv Level of Consciousness is awake, alert, obeys commands, Oriented to person, place, time, situation, Reports blurred vision dizziness, weakness. Cardiovascular: Capillary refill < 3 seconds Patient's skin is warm and dry. Chest pain is denied. Respiratory: Airway is patent Respiratory effort is even, unlabored. GI: No signs and/or symptoms were reported involving the gastrointestinal system. : No signs and/or symptoms were reported regarding the genitourinary system. Derm: Skin is intact. Historical: - Allergies: 06:01 Invokana; rv 06:01 Jardiance; rv 06:01 PENICILLINS; rv 06:01 Zosyn; rv - PMHx: 06:01 CHF; chronic back pain; Diabetes - IDDM; Hyperlipidemia; Hypertension; Obesity; rv - PSHx: 06:01 addenoidectomy; Cholecystectomy; rhinoplasty; rv - Immunization history:: Adult Immunizations up to date. - Social history:: Smoking status: Patient denies any tobacco usage or history of. - Family history:: not pertinent. Screenin:03 [facility] ED Fall Risk Assessment (Adult) History of falling in the last 3 months, rv including since admission No falls in past 3 months (0 pts) Score/Fall Risk Level 0 - 2 = Low Risk Oriented to surroundings, Maintained a safe environment, Educated pt \T\ family on fall prevention, incl call for assistance when getting out of bed, Assessed \T\ reinforced patient's understanding of fall precautions, Provided non-skid footwear, Hourly rounding (assess needs \T\ fall precautionary measures) done, Used ambulatory aids as needed (educated on \T\ assisted with), Used gait belt as appropriate. Abuse screen: Denies threats or abuse. Denies injuries from another. Nutritional screening: No deficits noted. Tuberculosis screening: No symptoms or risk factors identified. Assessment: 06:03 Reassessment: SEE TRIAGE NOTES. rv 12:22 Reassessment: attempted to call report to 2nd floor. no answer at this time. kc6 13:15 Reassessment: ATTEMPTED TO CALL REPORT TO 2ND FLOOR. NO ANSWER AT THIS TIME. kc6 13:52 Reassessment: ATTEMPTED TO CALL REPORT TO 2ND FLOOR. NO ANSWER AT THIS TIME. MARÍA ADAMS kc6 NOTIFIED. STATED SHE WILL CHECK WITH 2ND FLOOR. Vital Signs: 05:59 BP 117 / 63; Pulse 70; Resp 17; Temp 98; Pulse Ox 100% ; Weight 139 kg (M); Height 5 rv ft. 9 in. ; 06:00 BP 108 / 54; Pulse 66; Resp 16 S; Pulse Ox 95% on R/A; jw7 07:00 BP 119 / 60; Pulse 60; Resp 12 S; Pulse Ox 96% on R/A; jw7 08:32 BP 122 / 57; Pulse 59; Resp 18; Pulse Ox 99% on R/A; ph 09:35 BP 142 / 64; Pulse 81; Resp 18; Pulse Ox 100% on R/A; ph 10:06 BP 123 / 60; Pulse 61; Resp 18; Pulse Ox 97% on R/A; ph 05:59 Body Mass Index 45.25 (139.00 kg, 175.26 cm) rv Rohit Coma Score: 06:27 Eye Response: spontaneous(4). Motor Response: obeys commands(6). Verbal Response: sp4 oriented(5). Total: 15. NIH Stroke Scale Scores: 06:27 NIHSS Score: 0 sp4 ED Course: 05:59 Patient arrived in ED. rv 06:01 Triage completed. rv 06:01 Arm band placed on right wrist. rv 06:03 Dean Hernandez MD is Attending Physician. sp4 06:03 Patient has correct armband on for positive identification. Client placed on continuous rv cardiac and pulse oximetry monitoring. NIBP monitoring applied. 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 06:03 No provider procedures requiring assistance completed. rv 06:16 EKG done, by ED staff, reviewed by Dean Hernandez MD. jw7 06:21 XRAY Chest (1 view) In Process Unspecified. EDMS 06:53 COVID-19 SARS RT PCR Sent. jw7 07:04 Attending Physician role handed off by Dean Hernandez MD rn 07:04 Asael Bernal MD is Attending Physician. rn 07:05 CT Head Brain wo Cont In Process Unspecified. EDMS 08:16 Joey Escalante is Hospitalizing Provider. rn 08:32 Mary Anne Grace RN is Primary Nurse. ph 11:47 Latoya Mcknight MD is Hospitalizing Provider. rn 14:53 Patient admitted, IV remains in place. kc6 Administered Medications: 06:29 Drug: NS 0.9% IV 1000 ml IV at 1 bolus Per protocol; 1000 mL bolus Route: IV; Rate: 1 jw7 bolus; Site: right antecubital; 06:30 Drug: Aspirin PO Chewable Tablet 324 mg PO once; 81 mg tablets x 4 Route: PO; jw7 Medication: 06:03 VIS not applicable for this client. rv Outcome: 08:17 Decision to Hospitalize by Provider. rn 14:52 Admitted to Med/surg accompanied by nurse, via wheelchair, room 207, with chart, Report kc6 called to bedside report given to KRUNAL Boland 14:52 Condition: good 14:52 Instructed on the need for admit, 14:53 Patient left the ED. kc6 NIH Stroke Scale - NIH Stroke Score Date: 04/11/2023 Time: 06:27 Total Score = 0 10. Dysarthria (speech clarity - read or repeat words) - 0(Normal) 11. Extinction and Inattention (visual/tactile/auditory/spatial/personal) - 0(No abnormality) 1a. Level of Consciousness (LOC) - 0(Alert) 1b. Level of Consciousness (LOC) (Month \T\ Age) - 0(Both) 1c. LOC Commands (Open \T\ Closes Eyes/Upper Extremity Surgeon) - 0(Both) 2. Best Gaze (Lateral Gaze Paresis) - 0(Normal) 3. Visual Field Loss - 0(No visual loss) 4. Facial Palsy - 0(Normal) 5a. Left Arm: Motor (10-second hold) - 0(No drift) 5b. Right Arm: Motor (10-second hold) - 0(No drift) 6a. Left Leg: Motor (5-second hold - always test supine) - 0(No drift) 6b. Right Leg: Motor (5-second hold - always test supine) - 0(No drift) 7. Limb Ataxia (finger/nose \T\ heel/grant - test with eyes open) - 0(Absent) 8. Sensory Loss (pinprick arms/legs/face) - 0(Normal) 9. Best Language: Aphasia (description/naming/reading) - 0(No aphasia) Initials: sp4 Signatures: Dispatcher [employer] Asael Stoddard MD MD rn Hall, Patricia RN RN Norman Butt RN Raissa Zapata RN RN jw7 Elyssa Krishnan RN RN kc6 Dean Hernandez MD MD sp4
[2023-04-11] MEDS ORDERED: MORPHINE 2 MG/ML SYR IV PRN (10:49)
--- NOTE | 2023-04-11 11:10 | RAD REPORT ---
EXAM DESCRIPTION: RAD - Chest Single View - 04/11/2023 6:19 am CLINICAL HISTORY: CHEST PAIN COMPARISON: 06/11/2018 FINDINGS: Single frontal radiograph view of the chest. Cardiomediastinal silhouette: Cardiomegaly. Leads overlie the chest. Lungs: No consolidation, pneumothorax, or pleural effusion. Bones: Degenerative change of the spine. Upper abdomen: No abnormality identified. IMPRESSION: 1. No acute pulmonary process identified. 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 The interpreting radiologist is fully responsible for the content of the report.
[2023-04-11 11:13] VITALS: BMI 45.0
--- NOTE | 2023-04-11 11:23 | P.HP ---
Certification for Inpatient Patient admitted to: Observation With expected LOS: >2 Midnights Practitioner: I am a practitioner with admitting privileges, knowledge of patient current condition, hospital course, and medical plan of care. Services: Services provided to patient in accordance with Admission requirements found in Title 42 Section 412.3 of the Code of Federal Regulations Patient History Date of Service: 04/11/23 Reason for admission: Chest pain r/o SC History of Present Illness: Nicola Harvey is a 58 year old male with pmhx NSTEMI (4 stents), CHF, chronic back pain, Diabetes - IDDM, Hyperlipidemia, Hypertension, Obesity, presents to the ED with c/o Dizziness, blurred vision, and diaphorectic. He reports having chest pain a few days prior to the blurred vision and dizziness. Nicola states he had dropped his off at work this morning then began to have blurred vision that resembled his glasses being foggy. He cleaned his glasses off and his vision was not better. He pulled into his works parking lot and completely lost his ability to see. He called into his employment supervisor requesting medical attention. His blood pressure was low with an irregular heart rate. At that time he became diaphoretic. He reports not remembering the drive in the ambulance and was aware of his surroundings when Dr. Hernandez was talking to him. On examination he states he was having dizziness again a few minutes ago. He reports having a right leg infection requiring him to come to the ED, during IV antibiotic administration his blood pressure dropped and he was found to have Last dose of Brilinta was this morning Allergies canagliflozin [From Invokana] Adverse Reaction (Verified 03/13/23 12:36) leg infection empagliflozin [From Jardiance] Adverse Reaction (Verified 03/13/23 12:36) leg infection piperacillin [From Zosyn] Adverse Reaction (Verified 03/13/23 12:36) tachycardia,hypotension, doapheresis tazobactam [From Zosyn] Adverse Reaction (Verified 03/13/23 12:36) tachycardia,hypotension, doapheresis Home Medications: Aspirin 81 mg PO DAILY 10/03/20 Doxazosin [Cardura*] 2 mg PO BID 10/03/20 Insulin Regular, Human [Humulin R U-500 Kwikpen] 100 unit SQ BID 10/03/20 Metformin HCl [Glucophage*] 1,000 mg PO BID 10/03/20 Metoprolol Tartrate [Lopressor*] 50 mg PO BID 10/03/20 lisinopriL [Lisinopril] 40 mg PO DAILY 10/03/20 Amlodipine [Norvasc*] 10 mg PO BID 10/03/21 Furosemide [Lasix*] 80 mg PO DAILY 11/27/22 - Past Medical/Surgical History Diabetic: Yes -: HTN -: niddm -: Hyperlipidemia -: Sleep apnea -: RLE Cellulitis -: CHF -: Adenoidectomy -: Myringotomy -: lower back pain with steroid shots -: chema - Family History Mother -: Hypertension, Cancer, Other (see notes) Notes: colon CA, colostomy bag Father -: Hypertension, Cancer Notes: prostata CA- remission, colon CA - Social History Alcohol use: No CD- Drugs: No Caffeine use: Yes Physical Examination - Studies Laboratory Data (last 24 hrs) 04/11/23 04/11/23 04/11/23 06:22 06:22 06:22 WBC 6.60 Hgb 11.1 L Hct 32.7 L Plt Count 213 PT 11.0 INR 1.00 Sodium 139 Potassium 3.5 BUN 18 Creatinine 1.03 Glucose 87 Magnesium 2.0 Total Bilirubin 0.3 AST 10 L ALT 23 Alkaline Phosphatase 72 Assessment and Plan - Advance Directives Does patient have a Living Will: No Does patient have a Durable POA for Healthcare: No
[2023-04-11 11:46] LABS: Thyroid Stimulating Hormone 1.83 uIU/mL (0.358-3.740)
--- NOTE | 2023-04-11 14:51 | ECHO ---
HEIGHT: 5 ft 9 in WEIGHT: 305 lb 0 oz DATE OF STUDY: 04/11/[address]: Antonella Schuler NP 2-DIMENSIONAL: YES M.MODE: YES DOPPLER: YES COLOR FLOW: YES TDS: NO PORTABLE: YES DEFINITY: NO BUBBLE STUDY: NO DIAGNOSIS: SYNCOPE CARDIAC HISTORY: CATHERIZATION: SURGERY: PROSTHETIC VALVE: PACEMAKER: MEASUREMENTS (cm) DIASTOLIC (NORMALS) SYSTOLIC (NORMALS) IVSd 1.3 (0.6-1.2) LA Diam 4.1 (1.9-4.0) LVEF 71% LVIDd 5.3 (3.5-5.7) LVIDs 3.1 (2.0-3.5) %FS 41% LVPWd 1.4 (0.6-1.2) Ao Diam 3.0 (2.0-3.7) 2 DIMENSIONAL ASSESSMENT: RIGHT ATRIUM: NORMAL LEFT ATRIUM: ENLARGED RIGHT VENTRICLE: NORMAL LEFT VENTRICLE: LVH TRICUSPID VALVE: NORMAL MITRAL VALVE: MILD MITRAL REGURGITATION PULMONIC VALVE: NORMAL AORTIC VALVE: NORMAL PERICARDIAL EFFUSION: NONE AORTIC ROOT: NORMAL LEFT VENTRICULAR WALL MOTION: NORMAL DOPPLER/COLOR FLOW: SEE BELOW COMMENTS: 1. NORMAL LEFT VENTRICULAR EJECTION FRACTION 60-65%. 2. NORMAL WALL MOTION. 3. LEFT ATRIAL ENLARGEMENT. 4. MILD CONCENTRIC LEFT VENTRICULAR HYPERTROPHY. 5. MILD MITRAL REGURGITATION. TECHNOLOGIST: Jacquelin GIBBS
--- NOTE | 2023-04-11 14:57 | RAD REPORT ---
EXAM DESCRIPTION: - CP - 04/11/2023 2:37 pm CLINICAL HISTORY: Syncopy Headache, drowsiness COMPARISON: No comparisons TECHNIQUE: Real-time sonographic evaluation of both carotid systems was performed. Doppler interroga tion was performed with waveform tracing bilaterally. FINDINGS: Normal high resistance waveforms are noted in both external carotid arteries. The common c arotid arteries and internal carotid arteries show normal low resistance waveforms. Focal mild soft plaque is present involving the right carotid bulb. Peak systolic and end diastolic v elocity values and the ICA/CCA ratios are in the non-hemodynamically significant range. Antegrade flow seen in both vertebral arteries. IMPRESSION: Focal mild soft plaque is noted involving the right carotid bulb. No evidence of a hemodynamically significant stenosis.
[2023-04-11] MEDS ORDERED: GLUCAGON 1 MG/VIAL IM PRN ×2 (17:29→17:30)
[2023-04-11] MEDS ORDERED: D50W 25 GM/50 ML SYRINGE IV PRN ×2 (17:29→17:30)
[2023-04-11] MEDS ORDERED: D10W 125 ML IV PRN (17:46)
[2023-04-11 18:24] LABS: Specific Gravity 1.019 (1.005-1.030); Urine Bacteria None Seen /HPF (<20); Urine Bilirubin NEGATIVE (Negative); Urine Blood Negative (Negative); Urine Clarity Clear (Clear); Urine Color Light-Yellow (Yellow); Urine Glucose NEGATIVE (Negative); Urine Mucus Slight /HPF (None Seen); Urine Protein 1+ (Negative); Urine RBC <5 /HPF (None Seen); Urine Urobilinogen Normal (Normal)
[2023-04-11] MEDS: TICAGRELOR 90 MG TABLET PO SCH (20:54)
[2023-04-11] MEDS: lisinopriL 20 MG TAB PO SCH (20:55)
[2023-04-11] MEDS: METOPROLOL TAR 50 MG TAB PO SCH (20:55)
[2023-04-11] MEDS ORDERED: INSULIN REGULAR (HUMAN) 100 UNIT/ML SQ SCH ×2 (21:00)
[2023-04-11] MEDS: INSULIN REGULAR (HUMAN) 100 UNIT/ML SQ SCH (21:00)
[2023-04-11] MEDS ORDERED: ATORVASTATIN 80 MG TAB PO SCH (21:00)
[2023-04-11 22:08] VITALS: O2SAT 98
[2023-04-12 04:36] LABS: Absolute Lymphocytes (CBC) 1.4 K/uL (0.7-4.9); Hematocrit 33.2 % (39.6-49.0); Lymphocytes % 18.1 % (15.3-44.8); MCV 82.6 fL (80-100); MPV 7.6 fL (7.6-11.3); Platelets 211 thou/uL (152-406); RBC Red Blood Cell Count 4.02 M/uL (4.33-5.43)
[2023-04-12 04:54] LABS: Magnesium 2.2 mg/dL (1.6-2.4); Potassium 4.5 mEq/L (3.5-5.1)
[2023-04-12] MEDS: INSULIN REGULAR (HUMAN) 100 UNIT/ML SQ SCH (07:30)
[2023-04-12] MEDS: lisinopriL 20 MG TAB PO SCH (08:00)
[2023-04-12] MEDS: TICAGRELOR 90 MG TABLET PO SCH (08:00)
[2023-04-12] MEDS: METOPROLOL TAR 50 MG TAB PO SCH (08:00)
[2023-04-12 08:59] VITALS: BP 152/75; TEMP 97.8
[2023-04-12] MEDS ORDERED: ISOSORBIDE MONO SR 30 MG TAB PO SCH (09:00)
[2023-04-12] MEDS ORDERED: ASPIRIN EC 81 MG TAB PO SCH (09:00)
--- NOTE | 2023-04-12 15:53 | SS ---
Date of Admission: 04/12/2023 Date of Discharge: 04/12/2023 Chief Complaint: Fainting type of feeling. History Of Present Illness: This is a 58-year-old very pleasant male patient who was doing fine in his normal usual state of health until yesterday morning when he was driving to go to work after dropping his at her work, he all of a sudden felt like his glasses were getting foggy as he could not see well and he tried to clean his glasses and he did not get better by the time, he pulled into the parking lot and realized that his glasses were not foggy, but his eye sight was getting poor where he had very blurred vision and then all of a sudden he started having profuse sweating and felt very weak as if he might faint. He immediately called for help and ambulance arrived there and after he was evaluated, he was brought into the emergency room. Patient thinks that he was told that his sugar was 79 at that time. After he was brought into emergency room, he was evaluated and admitted to the hospital. Since his admission, his condition has stabilized and this morning when I saw him, he has not had any complaints and he feels like he is back to his normal self again. Patient has lost approximately 70 pounds weight in last 2 years and out of those 40 pounds weight loss happened this year and he has done extremely well with this weight loss and some of the credit goes to his own willingness to eat smaller portions of meal, but at the same time, significant amount of weight loss has happened since he started taking Ozempic. He started taking Ozempic 0.25 mg once a week and then slowly dose went up to 0.5 mg and then 1 mg dose. When he was taking 1 mg dose, he had very mild case of pancreatitis with some very mild upper abdominal pain and this was few months ago and at that time, I told him not to take any Ozempic for a month or so and then we restarted his Ozempic at a lower dose, which is 0.5 mg subcutaneous injection once a week and he has been on it for last few months without any side effect or problems. Allergies: NO KNOWN ALLERGIES. Medications: List reviewed. Review of Systems: Cardiovascular: As mentioned above. All other systems reviewed and negative. Social History: Negative for smoking and alcohol use. Family History: Significant for colon cancer and prostate cancer. Past Surgical History: Significant for sinus surgery. Past Medical History: Significant for hypertension, obstructive sleep apnea, cervical spinal stenosis, type 2 diabetes mellitus, lumbar radiculopathy, hyperlipidemia, recurrent cellulitis of lower extremities, and lymphedema of legs. Also past medical history significant for coronary artery disease. Physical Examination: Vital Signs: This morning, temperature 97.8, pulse 60, respiratory rate 16, blood pressure 152/75, oxygen saturation 98% on room air. Height 5 feet 3 inches, which is not correct height as patient appears lot taller than this and my best estimate is he is probably 5 feet 10 inches tall, but I will have to verify with the previous records and office record. His weight is also listed as 149 pounds, which is wrong. Yesterday when I looked at his chart, his weight was 306 pounds. His last office weight at office was 308 pounds. General: Awake, alert, oriented, not in distress. HEENT: Head atraumatic, normocephalic. Conjunctivae nonerythematous. Sclerae white. Mouth, no thrush or edema noted. Ears/Nose, no mass, lesion, discharge noted. Neck: Supple. No JVD, lymph nodes, bruit, thyromegaly noted. Lungs: Bilateral good equal air entry. Clear to auscultation. No rhonchi. No rales. Heart: Normal heart sounds, no murmur or gallop. Abdomen: Soft, bowel sounds normal. No guarding, rigidity, tenderness, mass, hepatosplenomegaly, distention, or bruit noted. Extremities: No leg edema. No calf tenderness. Skin: He has dry skin over both lower extremities. Lymphatics: No lymph node enlargement in neck, supraclavicular, infraclavicular region. Neuro: No focal neurological deficit. Chest: Unremarkable. External Genitalia: Deferred. Rectal: Deferred. Laboratory Data: Yesterday, white count 6.6, hemoglobin 11.1, platelets 213. Today, white count 7.6, hemoglobin 11.4, and platelet count 211. Yesterday, chemistry shows sodium 139, potassium 3.5, chloride 108 bicarb 26, BUN 18, creatinine 1.03, glucose 87. Liver function tests are unremarkable. Troponin 6.1 on the first set, second set 6.6, third set 7.6. TSH yesterday was 1.830. This morning, sodium 138, potassium 4.5, chloride 107, bicarb 29, BUN 11, creatinine 0.95, glucose 134. Hemoglobin A1c 6.5. His lipid profile shows triglyceride 112, total cholesterol 113, LDL 54, HDL 37. Urinalysis is unremarkable. Echocardiogram done yesterday shows ejection fraction 71%, mild mitral regurgitation, mild concentric left ventricular hypertrophy. Carotid Doppler shows focal mild soft plaque involving the right carotid bulb. No evidence of hemodynamically significant stenotic lesions. CAT scan of the brain was negative for any acute intracranial changes. Chest x-ray was negative for any acute intrathoracic changes. Hospital Course: After patient was evaluated in the emergency room, he was admitted to the hospital and his condition has remained stable. We monitored his vital signs. CT was ruled out by getting serial cardiac enzymes and echo and carotid Doppler did not show any significant problem. I strongly suspect that his near syncopal episode yesterday he had was due to hypoglycemia and low blood pressure combination and with his significant amount of weight loss that he has gone through in last 2-3 years, we will need to start cutting back on some of his medications. He took his last dose of Ozempic 0.5 mg subcutaneous injection past which is 2 days ago and I have informed him that starting next week on , he will need to increase the dose of Ozempic to 1 mg and if he does not tolerate it and has any problem with abdominal pain, then we will have to drop it down again to 0.5 mg dose. Weight loss was encouraged. While in the hospital, I have discontinued his hydralazine and amlodipine and we did not give doxazosin either. We have monitored his vital signs and fingerstick blood sugar readings. At home, he takes his Humulin R U- 500 insulin and he takes 30-50 units 2 times a day and the way he makes the decision is if his blood sugar is more than 130, he takes 50 units; if it is less than 130, he takes 30 units and this is taken every morning and every evening. I have advised him to lower his insulin dose as per discharge instruction and I have gone over discharge instructions with him today and he verbalized understanding. Final Diagnoses: 1. Near syncope. 2. Coronary artery disease. 3. Morbid obesity. 4. Hypertension. 5. Hyperlipidemia. 6. Type 2 diabetes mellitus. 7. Obstructive sleep apnea. 8. Lymphedema, legs. Discharge Medications And Instructions: Continue all prior home medication except following changes: 1. Stop amlodipine. 2. Stop hydralazine. 3. Change lisinopril 40 mg. patient to take half a tablet 2 times a day. 4. Change Ozempic, take 1 mg subcutaneous injection once a week starting next . 5. Change Humulin R U-500 insulin subcutaneous injection with breakfast and with supper as below. Takes 25 units if your glucose level is higher than 130, take 15 units if your glucose is between 100-130, do not take any insulin if your glucose level is less than 100. 6. Follow up at my office week after next. WALT/MODL Voice ID: [id number] Report ID: [id number] MTDD
[2023-04-12] MEDS ORDERED: METFORMIN HCL 500 MG TAB PO SCH (18:00)
--- NOTE | 2023-04-16 17:10 | EKG ---
Test Date: 2023-04-11 Test Time: 06:11:14 Rides Supervisor: CINDY MEASUREMENT RESULTS: Intervals: Rate: 69 [place]: 174 QRSD: 110 QT: 414 QTc: 443 [place]: P: 59 [place]: 174 QRS: 88 T: 58 INTERPRETIVE STATEMENTS: Normal sinus rhythm Incomplete right bundle branch block Borderline ECG Compared to ECG 02/04/2023 18:13:48 Ventricular premature complex(es) no longer present Right-axis deviation no longer present Electronically Signed On 04-16-23 16:56:19 JEWELRY TECHNICIAN by Neel Garcia
== END 2023-04-12 11:32 | disposition home or self-care (01) ==
LOC: ER 05:56 → SUPCPDRO 05:56 → ERHOLD 10:57 → 2ND 12:47
PROVIDERS: ADMIT Internal Medicine; ATTEND Internal Medicine
DX: R55 Syncope and collapse (principal); I25.10 Atherosclerotic heart disease of native coronary artery without angina pectoris; E66.01 Morbid (severe) obesity due to excess calories; I10 Essential (primary) hypertension; E78.5 Hyperlipidemia, unspecified; E11.9 Type 2 diabetes mellitus without complications; G47.33 Obstructive sleep apnea (adult) (pediatric); I89.0 Lymphedema, not elsewhere classified; Z68.26 Body mass index [BMI] 26.0-26.9, adult; Z79.85 Long-term (current) use of injectable non-insulin antidiabetic drugs; Z11.52 Encounter for screening for COVID-19
CPT/HCPCS: 93005; 93306; 85025 ×2; 81001; 80048 ×2; 36415 ×2; 83735 ×2; 84100; 85610; 80061; 82947 ×3; 80076; 84443; 83036; 84484 ×3; 84439; 83880; 87635; 70450; 71045; 93880; 99285; J7030; G0378 ×4

== ENCOUNTER 2023-06-13 15:10 | Observation (INO) | payer BC, SELFPAY ==
--- NOTE | 2023-06-13 15:53 | RAD REPORT ---
[facility]AM DES[facility] 3:42 pm CLINICAL HISTORY: CHEST PAIN COMPARISON: Chest Single View dated 04/11/2023; Chest Single View dated 02/04/2023; Chest Single View dated 09/19/2022; Chest Single View dated 08/15/2022 TECHNIQUE: Portable AP view of the chest. FINDINGS: The lungs are clear. No pneumothorax or effusion. The cardiomediastinal contours are unre markable. IMPRESSION: No acute cardiopulmonary process.
[2023-06-13 17:16] LABS: Absolute Lymphocytes (CBC) 1.4 K/uL (0.7-4.9); Hematocrit 36.2 % (39.6-49.0); Lymphocytes % 21.8 % (15.3-44.8); MCV 80.4 fL (80-100); MPV 7.3 fL (7.6-11.3); Platelets 259 thou/uL (152-406)
[2023-06-13 17:23] LABS: Protime INR 1.05
--- NOTE | 2023-06-13 17:43 | EDPHYS ---
Physician Documentation [facility] Name: Nicola Harvey Age: 58 yrs Sex: Male : 1965 Arrival Date: 06/13/2023 Time: 15:10 Bed 9 Private MD: ED Physician Asael Bernal HPI: 06/13 15:35 This 58 yrs old Male presents to ER via Ambulatory with complaints of Chest rn Pain. 15:35 The patient or guardian reports chest pain that is located primarily in the substernal rn area. Onset: 1 week(s) ago. The pain does not radiate. Associated signs and symptoms: Pertinent positives: None. Pertinent negatives: abdominal pain, cough, shortness of breath, syncope, vomiting. The chest pain is described as aching. Modifying factors: The symptoms are alleviated by nothing. the symptoms are aggravated by nothing. Severity of pain: At its worst the pain was moderate in the emergency department the pain has improved. The patient has experienced similar episodes in the past. Patient reports substernal chest pain, nonradiating, associated with shortness of breath and pain with exertion. Patient with known CAD and last stent back in February. No trauma. No abdominal pain. No vomiting. No recent illness or cough. Improves with rest. Historical: - Allergies: 15:24 Invokana; ap3 15:24 Jardiance; ap3 15:24 PENICILLINS; ap3 15:24 Zosyn; ap3 - PMHx: 15:24 CHF; chronic back pain; Diabetes - IDDM; Hyperlipidemia; Hypertension; Obesity; ap3 - Social history:: Smoking status: Patient denies any tobacco usage or history of. - Family history:: not pertinent. - Hospitalizations: : No recent hospitalization is reported. ROS: 15:35 Constitutional: Negative for fever, chills, and weight loss, Cardiovascular: Positive rn for chest pain Respiratory: Positive for shortness of breath Abdomen/GI: Negative for abdominal pain, nausea, vomiting, diarrhea, and constipation, MS/Extremity: Negative for injury and deformity, Skin: Negative for injury, rash, and discoloration, Neuro: Negative for headache, weakness, numbness, tingling, and seizure, Exam: 15:35 Constitutional: This is a well developed, well nourished patient who is awake, alert, rn and in no acute distress. Head/Face: Normocephalic, atraumatic. Cardiovascular: Regular rate and rhythm. No pulse deficits. Respiratory: No increased work of breathing, no retractions or nasal flaring. Abdomen/GI: Soft, nontender Skin: Warm, dry MS/ Extremity: Pulses equal, no cyanosis. Neuro: Awake and alert, GCS 15 15:43 ECG was reviewed by the Attending Physician. rn Vital Signs: 15:22 BP 141 / 74; Pulse 63; Resp 17; Temp 98.1(O); Pulse Ox 100% ; Weight 140.61 kg; Height ap3 5 ft. 9 in. ; Pain 5/10; 17:06 BP 125 / 65; Pulse 62; Pulse Ox 100% ; jg11 20:43 BP 145 / 76 Sitting; Pulse 63; Resp 23 S; Temp 97.9(O); Pulse Ox 100% on R/A; rv1 15:22 Body Mass Index 45.78 (140.61 kg, 175.26 cm) ap3 15:22 Pain Scale: Adult ap3 MDM: 15:16 Patient medically screened. rn 17:40 Differential diagnosis: abnormal EKG, acute myocardial infarction, acute pericarditis, rn coronary artery disease pericarditis, pneumonia, pneumothorax, stable angina, unstable angina. HEART Score: History: Highly Suspicious (2), ECG: Non specific repolarization disturbance / LBTB / PM (1), Age: > 45 and < 65 years (1), Risk Factors: > or = 3 Risk factors for atherosclerotic disease (2), Troponin: < or = 1 x Normal Limit (0), Total Score = 6. Data reviewed: vital signs, nurses notes, lab test result(s), EKG, radiologic studies, plain films, and as a result, I will admit patient. Consideration of Admission/Observation Patient was admitted/placed on observation. Escalation of care including admission/observation considered. Management of patient was discussed with the following: Primary Care Provider: Notified Dr. Mcknight, will admit for cardiology evaluation and consult.. Care significantly affected by the following chronic conditions: Diabetes, Hypertension. Counseling: I had a detailed discussion with the patient and/or guardian regarding the historical points, exam findings, and any diagnostic results supporting the discharge/admit diagnosis, lab results, radiology results, the need for further work-up and treatment in the hospital. Response to treatment: the patient's symptoms have mildly improved after treatment. 17:42 The patient was given aspirin in the Emergency Department. rn 06/13 15:17 Order name: Basic Metabolic Panel; Complete Time: 17:37 rn 06/13 15:17 Order name: CBC with Diff; Complete Time: 17:22 rn 06/13 15:17 Order name: NT PRO-BNP; Complete Time: 17:37 rn 06/13 15:17 Order name: PT-INR; Complete Time: 17:29 rn 06/13 15:17 Order name: Troponin HS; Complete Time: 17:37 rn 06/13 15:17 Order name: XRAY Chest (1 view); Complete Time: 15:54 rn 06/13 15:17 Order name: EKG; Complete Time: 15: rn 06/13 17:47 Order name: CONS Physician Consult EDTN 06/13 15:17 Order name: Cardiac monitoring; Complete Time: 17:10 rn 06/13 15:17 Order name: EKG - Nurse/Tech; Complete Time: 15:26 rn 06/13 15:17 Order name: IV Saline Lock; Complete Time: 17: rn 06/13 15:17 Order name: Labs collected and sent; Complete Time: 17: rn 06/13 15:17 Order name: O2 Per Protocol; Complete Time: 17: rn 06/13 15:17 Order name: O2 Sat Monitoring; Complete Time: 17:10 rn EC:43 Rate is 68 beats/min. Rhythm is regular. QRS Finger is Normal. AL interval is normal. QRS rn interval is normal. QT interval is normal. No Q waves. T waves are Normal. No ST changes noted. Clinical impression: Normal ECG. Interpreted by me. Reviewed by me. Administered Medications: 18:40 Drug: morphine IVP or IV 4 mg IVP once over 4 mins Route: IVP; Infused Over: 4 mins; ap3 Site: right antecubital; 20:38 Follow up: Response: No adverse reaction; Marked relief of symptoms lg3 18:40 Drug: Ondansetron IVP 4 mg IVP once; over 2 minutes Route: IVP; Site: right antecubital;ap3 20:38 Follow up: Response: No adverse reaction lg3 18:40 Drug: Aspirin PO Chewable Tablet 324 mg PO once; 81 mg tablets x 4 Route: PO; ap3 20:38 Follow up: Response: No adverse reaction lg3 Disposition Summary: 06/13/23 17:42 Hospitalization Ordered Notes: Hospitalization Status: Observation rn Provider: Latoya Mcknight rn Location: Telemetry/MedSurg (observation) rn Condition: Stable rn Problem: new rn Symptoms: have improved rn Bed/Room Type: Standard rn Room Assignment: 205(06/13/23 19:56) Diagnosis - Chest pain, unspecified rn Forms: - Medication Reconciliation Form rn - SBAR form rn - Leadership Thank You Letter rn Signatures: Dispatcher [employer] EDAsael Alves MD MD rn Garcia, Cindy, RN RN Sudha Monroe RN RN [email or web address] Jasmina Juarez RN lg3 Corrections: (The following items were deleted from the chart) 19:56 17:42 rn cg
--- NOTE | 2023-06-13 17:43 | ER ---
Nurse's Notes [facility] Name: Nicola Harvey Age: 58 yrs Sex: Male : 1965 Arrival Date: 06/13/2023 Time: 15:10 Bed 9 Private MD: Diagnosis: Chest pain, unspecified Presentation: 06/13 15:22 Chief complaint: Patient states: he has been having chest pain since approx 1330 today, ap3 intermittently for one week. Coronavirus screen: At this time, the client does not indicate any symptoms associated with coronavirus-19. Ebola Screen: No symptoms or risks identified at this time. Initial Sepsis Screen: Does the patient meet any 2 criteria? No. Patient's initial sepsis screen is negative. Does the patient have a suspected source of infection? No. Patient's initial sepsis screen is negative. Risk Assessment: Do you want to hurt yourself or someone else? Patient reports no desire to harm self or others. Onset of symptoms was June 13, 2023 at 13:30. 15:22 Method Of Arrival: Ambulatory ap3 15:22 Acuity: ANGE 2 ap3 Triage Assessment: 15:24 General: Appears in no apparent distress. Behavior is calm, cooperative, appropriate ap3 for age. Pain: Complains of pain in chest Pain currently is 5 out of 10 on a pain scale. Pain began 2 hours ago. Neuro: Level of Consciousness is awake, alert, obeys commands, Oriented to person, place, time, situation, Appropriate for age. Cardiovascular: Reports chest pain, shortness of breath. Respiratory: Airway is patent Respiratory effort is even, unlabored, Respiratory pattern is regular, symmetrical. Historical: - Allergies: 15:24 Invokana; ap3 15:24 Jardiance; ap3 15:24 PENICILLINS; ap3 15:24 Zosyn; ap3 - PMHx: 15:24 CHF; chronic back pain; Diabetes - IDDM; Hyperlipidemia; Hypertension; Obesity; ap3 - Social history:: Smoking status: Patient denies any tobacco usage or history of. - Family history:: not pertinent. - Hospitalizations: : No recent hospitalization is reported. Screenin:25 [facility] ED Fall Risk Assessment (Adult) History of falling in the last 3 months, ap3 including since admission No falls in past 3 months (0 pts). Abuse screen: Denies threats or abuse. Nutritional screening: No deficits noted. Tuberculosis screening: No symptoms or risk factors identified. Assessment: 17:09 Reassessment: Patient and/or family updated on plan of care and expected duration. Pain ap3 level reassessed. Patient is alert, oriented x 3, equal unlabored respirations, skin warm/dry/pink. Patient states symptoms have improved. 19:00 Pain: Pain does not radiate. ap3 Vital Signs: 15:22 BP 141 / 74; Pulse 63; Resp 17; Temp 98.1(O); Pulse Ox 100% ; Weight 140.61 kg; Height ap3 5 ft. 9 in. ; Pain 5/10; 17:06 BP 125 / 65; Pulse 62; Pulse Ox 100% ; jg11 20:43 BP 145 / 76 Sitting; Pulse 63; Resp 23 S; Temp 97.9(O); Pulse Ox 100% on R/A; rv1 15:22 Body Mass Index 45.78 (140.61 kg, 175.26 cm) ap3 15:22 Pain Scale: Adult ap3 ED Course: 15:12 Patient arrived in ED. mg5 15:16 Asael Bernal MD is Attending Physician. rn 15:24 Triage completed. ap3 15:25 Arm band placed on right wrist. ap3 15:25 Patient maintains SpO2 saturation greater than 95% on room air. ap3 15:25 EKG done, by ED staff, reviewed by Asael Bernal MD. ap3 15:43 XRAY Chest (1 view) In Process Unspecified. EDMS 17:05 Initial lab(s) drawn, by co, sent to lab. Inserted saline lock: 20 gauge in right jg11 antecubital area, using aseptic technique. Blood collected. 17:09 Sudha Orosco, RN is Primary Nurse. ap3 17:10 Patient has correct armband on for positive identification. Bed in low position. Call ap3 light in reach. Side rails up X 1. Adult w/ patient. gambling monitor on. Pulse ox on. NIBP on. 17:42 Latoya Mcknight MD is Hospitalizing Provider. rn 20:04 No provider procedures requiring assistance completed. Patient admitted, IV remains in lg3 place. Administered Medications: 18:40 Drug: morphine IVP or IV 4 mg IVP once over 4 mins Route: IVP; Infused Over: 4 mins; ap3 Site: right antecubital; 20:38 Follow up: Response: No adverse reaction; Marked relief of symptoms lg3 18:40 Drug: Ondansetron IVP 4 mg IVP once; over 2 minutes Route: IVP; Site: right antecubital;ap3 20:38 Follow up: Response: No adverse reaction lg3 18:40 Drug: Aspirin PO Chewable Tablet 324 mg PO once; 81 mg tablets x 4 Route: PO; ap3 20:38 Follow up: Response: No adverse reaction lg3 Medication: 19:00 VIS not applicable for this client. ap3 Outcome: 17:42 Decision to Hospitalize by Provider. rn 20:04 Admitted to Med/surg accompanied by tech, via wheelchair, room 205, lg3 20:04 Condition: stable 20:04 Instructed on Demonstrated understanding of instructions, 20:58 Patient left the ED. lg3 Signatures: Dispatcher [employer] EDAsael Alves MD MD rn Prokisch, Amanda, RN RN ap3 Jasmina Juarez RN RN lg3 Nena Echevarria 1 Dori Armstrong 5 Grant Hernández jg11
[2023-06-13] MEDS ORDERED: ONDANSETRON 4 MG/2 ML VIAL ONE (18:34)
[2023-06-13] MEDS ORDERED: ASPIRIN 81 MG CHEWABLE TABLET ONE (18:34)
[2023-06-13] MEDS ORDERED: MORPHINE 4 MG/ML SYR ONE (18:35)
[2023-06-13 21:31] VITALS: BMI 42.3
[2023-06-13] MEDS ORDERED: MORPHINE 4 MG/ML SYR IV PRN (22:30)
[2023-06-13] MEDS ORDERED: ONDANSETRON 4 MG/2 ML VIAL IV PRN (22:30)
[2023-06-14 01:38] LABS: Specific Gravity > 1.030 (1.005-1.030); Urine Bacteria <20 /HPF (<20); Urine Bilirubin NEGATIVE (Negative); Urine Blood Negative (Negative); Urine Clarity Clear (Clear); Urine Color Yellow (Yellow); Urine Glucose NEGATIVE (Negative); Urine Mucus 4+ /HPF (None Seen); Urine Protein 2+ (Negative); Urine RBC None Seen /HPF (None Seen); Urine Urobilinogen Normal (Normal); Urine pH 5.5 (5.0-7.0)
[2023-06-14 04:05] LABS: Absolute Lymphocytes (CBC) 1.6 K/uL (0.7-4.9); Hematocrit 35.9 % (39.6-49.0); Lymphocytes % 24.2 % (15.3-44.8); MPV 7.4 fL (7.6-11.3); Platelets 246 thou/uL (152-406); RBC Red Blood Cell Count 4.43 M/uL (4.33-5.43)
[2023-06-14 04:12] LABS: Potassium 4.2 mEq/L (3.5-5.1)
[2023-06-14 05:11] VITALS: O2SAT 96
[2023-06-14 08:04] VITALS: BP 154/72; TEMP 97.4
[2023-06-14] MEDS ORDERED: CLOPIDOGREL 75 MG TABLET PO ONE (11:05)
--- NOTE | 2023-06-14 13:33 | HP ---
Date of Admission: 06/13/2023 Chief Complaint: Chest pain. History Of Present Illness: This is a 58-year-old male patient who had coronary intervention done in February of last year by Dr. Garcia, was taking Brilinta and recently he lost this job, lost his insu kalen, so he could not afford Brilinta anymore, so he contacted my office last week requesting to leigh ware to different anti-platelet therapy. At that time, we sent prescription for clopidogrel for him t o take in place of Brilinta. The patient has not started clopidogrel yet and he saw library customer service clerk the beginning of this week and at that time, library customer service clerk changed his anti-platelet therapy from Brilint a to Effient. Ever since he started taking Effient this week, he has been having intermittent chest pain in the bilateral parasternal region. As of yesterday, this chest pain in bilateral parasternal region around 1:30 p.m. started getting more intense, and this was continuous pain, so after waiting about an hour and a half for so, he decided to come to emergency room, and after he arrived in the em ergency room, he was evaluated, given aspirin and morphine, and around 8 p.m. or so, his pain complet bobby resolved and has not had any recurrence of chest pain. Denies any other associated symptoms. Th is morning when I saw him he was asymptomatic. Physical Examination: Vital Signs: Height 5 feet inches, weight pounds, temperature , puls e , respiratory rate , blood pressure , oxygen saturation . General: Awake, alert, oriented, not in distress. HEENT: Head atraumatic, normocephalic. Conjunctivae nonerythematous. Sclerae white. Mouth, no thr ush or edema noted. Ears/Nose, no mass, lesion, discharge noted. Neck: Supple. No JVD, lymph nodes, bruit, thyromegaly noted. Lungs: Bilateral good equal air entry. Clear to auscultation. No rhonchi. No rales. Heart: Normal heart sounds, no murmur or gallop. Abdomen: Soft, bowel sounds normal. No guarding, rigidity, tenderness, mass, hepatosplenomegaly, dis tention, or bruit noted. Extremities: No leg edema. No calf tenderness. Skin: No rash, ulcer, cellulitis. Lymphatics: No lymph node enlargement in neck, supraclavicular, infraclavicular region. Neuro: No focal neurological deficit. Chest: Unremarkable. External Genitalia: Deferred. Rectal: Deferred. Labs: EKG . WBC , hemoglobin , platelets . Sodium __, potassium , chloride , bicarb , BUN , creatinine __, glucose . Troponin negative x3. Hospital Course: After the patient was evaluated in the emergency room, he was admitted to the [facility]. His [place] was ruled out and this morning when I saw him, he was asymptomatic. The patient reports having this chest pain that started after he started taking Effient and I did communicate with his c ardiologist Dr. Garcia and he has suggested for the patient to take loading dose of clopidogrel today 300 mg p.o. x1 dose and then starting tomorrow, he should start taking 75 mg clopidogrel daily as pr escribed along with aspirin 81 mg daily and not to take Effient anymore. Dr. Garcia has given his ok ay for the patient to go home. Medically, he is stable for discharge and I have instructed the patie nt to restart all of his previous home medications that he was taking prior to this hospital admissio n except not to take Effient. The patient may return to work tomorrow and the patient has appointmen t to see me in 2 weeks. He will keep that appointment and the patient was instructed to follow up [facility] library customer service clerk as per his scheduled appointment. Final Diagnoses: 1.Chest pain. 2.Coronary artery disease. 3.Hypertension. 4.Hyperlipidemia. 5.Type 2 diabetes mellitus. 6.Morbid obesity. WALT/MODL Voice ID: [id number]
--- NOTE | 2023-06-16 17:00 | EKG ---
Test Date: 2023-06-13 Test Time: 15:20:48 [employer] Ic Layout Designer: ALP MEASUREMENT RESULTS: Intervals: Rate: 68 LA: 154 QRSD: 108 QT: 402 QTc: 427 [place]: P: 28 LA: 154 QRS: 81 T: 55 INTERPRETIVE STATEMENTS: Normal sinus rhythm Normal ECG Compared to ECG 04/11/2023 06:11:14 Incomplete right bundle-branch block no longer present Electronically Signed On 06-16-23 16:53:49 WARPER TENDER by Neel Garcia
== END 2023-06-14 11:52 | disposition home or self-care (01) ==
LOC: ER 15:10 → ERHOLD 18:09 → 2ND 20:05
PROVIDERS: ADMIT Internal Medicine; ATTEND Internal Medicine
DX: R07.9 Chest pain, unspecified (principal); I25.10 Atherosclerotic heart disease of native coronary artery without angina pectoris; I10 Essential (primary) hypertension; E78.5 Hyperlipidemia, unspecified; E11.9 Type 2 diabetes mellitus without complications; E66.01 Morbid (severe) obesity due to excess calories; Z68.41 Body mass index [BMI] 40.0-44.9, adult; Z88.0 Allergy status to penicillin; Z88.8 Allergy status to other drugs, medicaments and biological substances
CPT/HCPCS: 36415; 71045; 80048; 81001; 82947; 83880; 84484; 85025; 85610; 93005; 96374; 96375; 99285; G0378; J2405

== ENCOUNTER → 2023-07-15 | Emergency (ER) | payer OTHER, SELFPAY ==
[~2023-07-15] MED LIST: ACETAMINOPHEN 500 MG TAB ONE; CEFEPIME 2 GM VIAL ONE; NA CHLORIDE 0.9% 100 ML ONE
[2023-07-15 17:13] LABS: Absolute Lymphocytes (CBC) 0.6 K/uL (0.7-4.9); Hematocrit 34.9 % (39.6-49.0); Lymphocytes % 10.1 % (15.3-44.8); MCV 79.3 fL (80-100); MPV 7.6 fL (7.6-11.3); Platelets 209 thou/uL (152-406)
[2023-07-15 17:17] LABS: Protime INR 1.07
[2023-07-15 17:32] LABS: Albumin 3.2 g/dL (3.4-5.0); Bilirubin Total 0.3 mg/dL (0.2-1.0); Potassium 4.2 mEq/L (3.5-5.1); Protein, Total 7.1 g/dL (6.4-8.2); Troponin High Sensitivity 5.6 pg/mL (<58.9)
[2023-07-15 17:53] LABS: SARS-CoV-2 Antigen Rapid Res Positive (Negative)
--- NOTE | 2023-07-15 18:00 | RAD REPORT ---
EXAM DESCRIPTION: [place] Single View07/15/2023 5:47 pm CLINICAL HISTORY: sob COMPARISON: 2022 FINDINGS: The lungs appear clear of acute infiltrate. The heart is normal size IMPRESSION: No acute abnormalities displayed
--- NOTE | 2023-07-15 18:32 | EDPHYS ---
Physician Documentation [facility] Name: Nicola Harvey Age: 58 yrs Sex: Male : 1965 Arrival Date: 07/15/2023 Time: 16:26 Bed 14 Private MD: ED Physician Mele Mayfield HPI: 07/15 17:30 This 58 yrs old Male presents to ER via Ambulatory with complaints of rt Shortness Of Breath, Fever, Painful Cough. 17:30 Patient presents to the ED with cough, pleuritic chest pain, fevers starting today. rt Patient states that he felt somewhat ill with diarrhea for the past few days, however, he did worsen today. He called his primary care who sent him to the ED for further evaluation. Reports a nonproductive cough. Denies other acute complaints at this time, symptoms are moderate in severity, no other aggravating or alleviating factors.. Historical: - Allergies: 16:36 Invokana; ph 16:36 Jardiance; ph 16:36 PENICILLINS; ph 16:36 Zosyn; ph - PMHx: 16:36 CHF; Hypertension; Hyperlipidemia; Diabetes - IDDM; Obesity; chronic back pain; ph - PSHx: 16:36 addenoidectomy; Cholecystectomy; rhinoplasty; ph - Immunization history:: Adult Immunizations unknown. - Social history:: Smoking status: Patient denies any tobacco usage or history of. ROS: 17:30 MS/Extremity: Negative for injury and deformity, Skin: Negative for injury, rash, and rt discoloration, Neuro: Negative for headache, weakness, numbness, tingling, and seizure, 17:30 Constitutional: Positive for body aches, fever, 17:30 Cardiovascular: Positive for chest pain, Negative for edema, 17:30 Respiratory: Positive for cough, shortness of breath, 17:30 Abdomen/GI: Positive for diarrhea, Negative for abdominal pain, nausea and vomiting, Exam: 17:30 Constitutional: This is a well developed, well nourished patient who is awake, alert, rt and in no acute distress. Head/Face: Normocephalic, atraumatic. Chest/axilla: Normal chest wall appearance and motion. Nontender with no deformity. No lesions are appreciated. Cardiovascular: Regular rate and rhythm with a normal S1 and S2. No gallops, murmurs, or rubs. Normal PMI, no JVD. No pulse deficits. Respiratory: Lungs have equal breath sounds bilaterally, clear to auscultation and percussion. No rales, rhonchi or wheezes noted. No increased work of breathing, no retractions or nasal flaring. Abdomen/GI: Soft, non-tender, with normal bowel sounds. No distension or tympany. No guarding or rebound. No evidence of tenderness throughout. Skin: Warm, dry with normal turgor. Normal color with no rashes, no lesions, and no evidence of cellulitis. Neuro: Awake and alert, GCS 15, oriented to person, place, time, and situation. Cranial nerves II-XII grossly intact. Motor strength 5/5 in all extremities. Sensory grossly intact. Cerebellar exam normal. Normal gait. Psych: Awake, alert, with orientation to person, place and time. Behavior, mood, and affect are within normal limits. 17:30 Musculoskeletal/extremity: 3+ lower extremity edema, pitting, symmetric. 17:44 ECG was reviewed by the Attending Physician. rt Vital Signs: 16:32 Pulse 70; Resp 20; Temp 101.1(O); Pulse Ox 99% on R/A; Weight 134.26 kg; Height 5 ft. 9 ph in. ; 16:32 Body Mass Index 43.71 (134.26 kg, 175.26 cm) ph MDM: 16:39 Patient medically screened. rt 20:03 Differential diagnosis: Flu, COVID, pneumonia, CHF. Data reviewed: vital signs, nurses rt notes, lab test result(s), EKG, radiologic studies. Consideration of Admission/Observation Escalation of care including admission/observation considered. Management of patient was discussed with the following: Primary Care Provider: Discussed with patient's PCP, recommend starting Paxlovid, outpatient follow-up.. Independent interpretation of the following test(s) in the Emergency Department X-Ray: My interpretation is No pneumonia seen on interpretation of x-ray images. Test considered but Not performed: CT: Low suspicion for PE, CT angiogram not indicated. Care significantly affected by the following chronic conditions: Congestive Heart Failure. Counseling: I had a detailed discussion with the patient and/or guardian regarding the historical points, exam findings, and any diagnostic results supporting the discharge/admit diagnosis, lab results, radiology results, the need for outpatient follow up. Response to treatment: the patient's symptoms have mildly improved after treatment. 07/15 16:46 Order name: Blood Culture Adult (2) rt 07/15 16:46 Order name: CBC with Diff; Complete Time: 18:01 rt 07/15 16:46 Order name: CMP; Complete Time: 18:01 rt 07/15 16:46 Order name: Lactate w/ 2H reflex if indic.; Complete Time: 18:01 rt 07/15 16:46 Order name: Protime (+inr); Complete Time: 18:01 rt 07/15 16:46 Order name: Ptt, Activated; Complete Time: 18:01 rt 07/15 16:46 Order name: Troponin High Sensitivity; Complete Time: 18:01 rt 07/15 16:46 Order name: BNP; Complete Time: 18:01 rt 07/15 16:59 Order name: Influenza Screen (a \T\ B); Complete Time: 18:01 rt 07/15 16:59 Order name: SARS RAPID; Complete Time: 18:01 rt 07/15 16:46 Order name: Chest Single View XRAY; Complete Time: 18:02 rt 07/15 16:46 Order name: EKG; Complete Time: 16:47 rt 07/15 16:46 Order name: Accucheck; Complete Time: 17:35 rt 07/15 16:46 Order name: Cardiac monitoring; Complete Time: 17:35 rt 07/15 16:46 Order name: EKG - Nurse/Tech; Complete Time: 17:48 rt 07/15 16:46 Order name: IV Saline Lock - Large Bore; Complete Time: 16:58 rt 07/15 16:46 Order name: Labs collected and sent; Complete Time: 16:58 rt 07/15 16:46 Order name: O2 Per Protocol; Complete Time: 16:58 rt 07/15 16:46 Order name: O2 Sat Monitoring; Complete Time: 16:58 rt 07/15 16:46 Order name: Vital Signs; Complete Time: 17:35 rt EC:44 Rate is 62 beats/min. Rhythm is regular, Normal Sinus Rhythm with No ectopy. QRS [place] rt is Normal. GA interval is normal. QRS interval is normal. QT interval is normal. No Q waves. T waves are Normal. No ST changes noted. Interpreted by me. Administered Medications: 17:31 Drug: Acetaminophen PO 1000 mg PO once Route: PO; ll1 17:31 Drug: Cefepime IVPB 2 grams IVPB at 200 ml/hr once over 30 mins; (mix in NS 100 mL) ll1 Route: IVPB; Rate: 200 ml/hr; Infused Over: 30 mins; Site: right antecubital; Disposition Summary: 07/15/23 18:31 Discharge Ordered Notes: Location: Home rt Problem: new rt Symptoms: have improved rt Condition: Stable rt Diagnosis - COVID-19 rt Followup: rt - With: Latoya Mcknight MD - When: 7 - 10 days - Reason: Discharge Instructions: - Discharge Summary Sheet rt - COVID-19 rt Forms: - Work release form rt - Medication Reconciliation Form rt - Thank You Letter rt - Antibiotic Education rt - Prescription Opioid Use rt - Patient Portal Instructions rt - Leadership Thank You Letter rt Prescriptions: - Paxlovid 300 mg (150 mg x 2)-100 mg Oral Tablet, Dose Pack - take 1 dose pack ORAL route per package directions; 1 Each; Refills: 0, Product rt Selection Permitted Signatures: Dispatcher [employer] Mary Anne Berry, RN RN Landy Aldridge RN RN ll1 Mele Mayfield MD MD rt
--- NOTE | 2023-07-15 18:32 | ER ---
Nurse's Notes [facility] Name: Nicola Harvey Age: 58 yrs Sex: Male : 1965 Arrival Date: 07/15/2023 Time: 16:26 Bed 14 Private MD: Diagnosis: COVID-19 Presentation: 07/15 16:32 Chief complaint: Patient states: FEVER THIS AM 100.4 STATES TOOK IBUPROFEN 1 HOUR AGO. ph STATES STARTED WITH COUGH AND SOB WITH EXERTION THIS AM. STATES HAS UPPER MIDDLE CHEST PAIN WHEN GETTING UP AND MOVING AROUND WITH UPPER ABD PAIN X 2 DAYS. Coronavirus screen: Vaccine status: Patient reports receiving the 2nd dose of the covid vaccine. Client denies travel out of the [place] in the last 14 days. At this time, the client does not indicate any symptoms associated with coronavirus-19. Ebola Screen: Patient negative for fever greater than or equal to 101.5 degrees Fahrenheit, and additional compatible Ebola Virus Disease symptoms Patient denies exposure to infectious person. Patient denies travel to an Ebola-affected area in the 21 days before illness onset. No symptoms or risks identified at this time. Initial Sepsis Screen: Does the patient meet any 2 criteria? No. Patient's initial sepsis screen is negative. Does the patient have a suspected source of infection? No. Patient's initial sepsis screen is negative. Risk Assessment: Do you want to hurt yourself or someone else? Patient reports no desire to harm self or others. Onset of symptoms was July 15, 2023. 16:32 Method Of Arrival: Ambulatory 16:32 Acuity: ANGE 2 ph Triage Assessment: 16:36 General: Appears in no apparent distress. uncomfortable, Behavior is cooperative. Pain: ph Complains of pain in chest and abdomen. Neuro: Level of Consciousness is awake, alert, obeys commands, Oriented to person, place, time, situation. Respiratory: Reports shortness of breath on exertion since YESTERDAY Airway is patent Respiratory effort is even, unlabored, Respiratory pattern is regular, symmetrical, Onset: The symptoms/episode began/occurred gradually, the patient has mild shortness of breath. Historical: - Allergies: 16:36 Invokana; ph 16:36 Jardiance; ph 16:36 PENICILLINS; ph 16:36 Zosyn; ph - PMHx: 16:36 CHF; Hypertension; Hyperlipidemia; Diabetes - IDDM; Obesity; chronic back pain; ph - PSHx: 16:36 addenoidectomy; Cholecystectomy; rhinoplasty; ph - Immunization history:: Adult Immunizations unknown. - Social history:: Smoking status: Patient denies any tobacco usage or history of. Screenin:31 [facility] ED Fall Risk Assessment (Adult) History of falling in the last 3 months, ll1 including since admission No falls in past 3 months (0 pts) Confusion or Disorientation No (0 pts) Intoxicated or Sedated No (0 pts) Impaired Gait No (0 pts) Mobility Assist Device Used No (0 pt) Altered Elimination No (0 pt) Score/Fall Risk Level 0 - 2 = Low Risk Oriented to surroundings, Maintained a safe environment, Educated pt \T\ family on fall prevention, incl call for assistance when getting out of bed, Assessed \T\ reinforced patient's understanding of fall precautions, Hourly rounding (assess needs \T\ fall precautionary measures) done. Assessment: 17:31 Cardiovascular: Rhythm is regular. Respiratory: Airway is patent Breath sounds are ll1 clear bilaterally. Vital Signs: 16:32 Pulse 70; Resp 20; Temp 101.1(O); Pulse Ox 99% on R/A; Weight 134.26 kg; Height 5 ft. 9 ph in. ; 16:32 Body Mass Index 43.71 (134.26 kg, 175.26 cm) ph ED Course: 16:30 Patient arrived in ED. kj1 16:30 Mele Mayfield MD is Attending Physician. rt 16:36 Triage completed. ph 16:36 Arm band placed on right wrist. ph 17:19 Influenza Screen (a \T\ B) Sent. ll1 17:19 SARS RAPID Sent. ll1 17:31 Bed in low position. Call light in reach. Side rails up X 1. ll1 17:31 No provider procedures requiring assistance completed. ll1 17:35 Landy Alexander RN is Primary Nurse. ll1 17:49 Chest Single View XRAY In Process Unspecified. EDMS 17:53 Notified ED physician of a critical lab result(s). Covid +. ll1 18:31 Latoya Mcknight MD is Referral Physician. rt 18:41 Provided Education on: discharge instructions. ap3 18:41 IV discontinued, intact, bleeding controlled, No redness/swelling at site. Pressure ap3 dressing applied. Administered Medications: 17:31 Drug: Acetaminophen PO 1000 mg PO once Route: PO; ll1 17:31 Drug: Cefepime IVPB 2 grams IVPB at 200 ml/hr once over 30 mins; (mix in NS 100 mL) ll1 Route: IVPB; Rate: 200 ml/hr; Infused Over: 30 mins; Site: right antecubital; Medication: 17:31 VIS not applicable for this client. ll1 Outcome: 18:31 Discharge ordered by . rt 18:40 Discharged to home ambulatory, ap3 18:40 Condition: good 18:40 Discharge instructions given to patient, Instructed on discharge instructions, Demonstrated understanding of instructions, follow-up care, medications, Prescriptions given X 1, 18:41 Patient left the ED. ap3 Signatures: Dispatcher [employer] EDMary Anne Milan RN RN Sudha Orosco RN RN ap3 Valeri Quiroz Lynsay, RN RN ll1 Mele Mayfield MD MD rt
[2023-07-15 18:57] VITALS: TEMP 101.1; O2SAT 99
== END ==
LOC: ER 16:26
DX: U07.1 COVID-19 (principal); E11.9 Type 2 diabetes mellitus without complications; I50.9 Heart failure, unspecified; I10 Essential (primary) hypertension; Z88.0 Allergy status to penicillin; Z88.8 Allergy status to other drugs, medicaments and biological substances
CPT/HCPCS: 36415; 71045; 80053; 83605; 83880; 84484; 85025; 85610; 85730; 87040; 87804; 87811; 93005; J0692

== ENCOUNTER 2024-05-10 04:58 | Inpatient (IN) | payer BC, OTHER ==
[2024-05-10] MEDS ORDERED: VANCOMYCIN 500 MG/VIAL ONE (05:31)
[2024-05-10] MEDS ORDERED: levoFLOXacin 750 MG TAB ONE (05:31)
[2024-05-10] MEDS ORDERED: IBUPROFEN 400 MG TAB ONE (05:31)
[2024-05-10] MEDS ORDERED: FAMOTIDINE 20 MG/2 ML VIAL IV ONE (05:31)
[2024-05-10] MEDS ORDERED: VANCOMYCIN 1 GM/VIAL ONE (05:31)
[2024-05-10] MEDS ORDERED: NA CHLORIDE 0.9% 3,000 ML ONE (05:32)
[2024-05-10] MEDS ORDERED: NA CHLORIDE 0.9% 500 ML ONE (05:32)
[2024-05-10 05:57] LABS: Absolute Basophils 0.1 K/uL (0-0.5); Absolute Eosinophils 0.1 K/uL (0-0.5); Absolute Lymphocytes (CBC) 0.4 K/uL (0.7-4.9); Absolute Monocytes 0.4 K/uL (0.1-1.3); Basophils % 0.7 % (0-1.3); Eosinophils % 1.5 % (0-4.4); Hematocrit 38.1 % (39.6-49.0); Hemoglobin 12.4 g/dL (13.6-17.9); Lymphocytes % 5.2 % (15.3-44.8); MCH 27.2 pg (27.0-35.0); MCHC 32.6 g/dL (32.0-36.0); MCV 83.3 fL (80-100); MPV 7.9 fL (7.6-11.3); Monocytes % 4.8 % (3.3-12.3); Neutrophils % 87.8 % (41.7-73.7); Platelets 202 thou/uL (152-406); RBC Red Blood Cell Count 4.58 M/uL (4.33-5.43); Red Cell Distribution Width 16.1 % (12.1-15.2)
[2024-05-10 06:17] LABS: PT Prothrombin Time 11.5 SECONDS (9.4-12.5); Protime INR 1.03
--- NOTE | 2024-05-10 06:19 | ER ---
Nurse's Notes [facility] Name: Nicola Harvey Age: 59 yrs Sex: Male : 1965 Arrival Date: 05/10/2024 Time: 04:58 Bed 5 Private MD: Diagnosis: Fever, unspecified;Cellulitis and acute lymphangitis of other parts of limb;Lymphedema, not elsewhere classified;Severe sepsis without septic shock;Obesity, unspecified;Morbid (severe) obesity due to excess calories;Type 1 diabetes mellitus with hyperglycemia Presentation: 05/10 05:16 Chief complaint: Patient states: I woke up with a fever of 103.3 and took 1500 mg of bm8 tylenol and the fever is going away. I also have pain in my right thigh, hurts to walk. Coronavirus screen: Vaccine status: Patient reports receiving the 2nd dose of the covid vaccine. Ebola Screen: Patient negative for fever greater than or equal to 101.5 degrees Fahrenheit, and additional compatible Ebola Virus Disease symptoms Patient denies exposure to infectious person. Patient denies travel to an Ebola-affected area in the 21 days before illness onset. No symptoms or risks identified at this time. Initial Sepsis Screen: Does the patient meet any 2 criteria? Temp <36.0*C (96.8*F)) or > 38.3*C (100.9*F). HR > 90 bpm. Yes Does the patient have a suspected source of infection? No. Patient's initial sepsis screen is negative. Risk Assessment: Do you want to hurt yourself or someone else? Patient reports no desire to harm self or others. Onset of symptoms was May 10, 2024 at 03:00. 05:16 Method Of Arrival: Wheelchair [facility] 05:16 Acuity: ANGE 2 8 05:16 Care prior to arrival: Medication(s) given: Tylenol, 1500 mg. 8 Triage Assessment: 05:19 General: Appears distressed, uncomfortable, Behavior is cooperative, appropriate for 8 age, anxious. Pain: Complains of pain in medial aspect of right thigh and right quadriceps Pain currently is 7 out of 10 on a pain scale. Quality of pain is described as. EENT: No deficits noted. No signs and/or symptoms were reported regarding the EENT system. Neuro: No deficits noted. Level of Consciousness is awake, alert, obeys commands, Oriented to person, place, time, situation, Appropriate for age. Cardiovascular: Denies chest pain, Heart tones S1 S2 present Capillary refill < 3 seconds in bilateral fingers Patient's skin is warm and dry. Rhythm is sinus tachycardia. Respiratory: Airway is patent Trachea midline Respiratory effort is even, unlabored, Respiratory pattern is regular, symmetrical, Breath sounds are clear bilaterally. GI: Abdomen is round non-distended, Bowel sounds present X 4 quads. Reports upper abdominal pain, nausea, Pain is 7 out of 10 on a pain scale. : No signs and/or symptoms were reported regarding the genitourinary system. Derm: poor circulation noted to bilateral lower exts with slow cap refil. Musculoskeletal: Reports pain in right leg Pain is 7 out of 10 on a pain scale. Historical: - Allergies: 05:19 Invokana; bm8 05:19 Jardiance; bm8 05:19 PENICILLINS; bm8 05:19 Zosyn; bm8 - Home Meds: 05:19 amlodipine oral [Active]; atorvastatin oral [Active]; Brilinta 90 mg Oral tablet bm8 [Active]; doxazosin oral [Active]; Furosemide Oral [Active]; Hydralazine Oral [Active]; lisinopril Oral [Active]; Metoprolol Tartrate Oral [Active]; - PMHx: 05:19 CHF; chronic back pain; Diabetes - IDDM; Hyperlipidemia; Hypertension; Obesity; bm8 - PSHx: 05:19 addenoidectomy; Cholecystectomy; rhinoplasty; bm8 - Immunization history:: Adult Immunizations up to date, Client reports receiving the 2nd dose of the Covid vaccine, Flu vaccine is up to date. - Infectious Disease History:: Denies. - Social history:: Smoking status: Patient denies any tobacco usage or history of. Patient/guardian denies using alcohol, street drugs. Screenin:45 [facility] ED Fall Risk Assessment (Adult) History of falling in the last 3 months, bm8 including since admission No falls in past 3 months (0 pts) Confusion or Disorientation No (0 pts) Intoxicated or Sedated No (0 pts) Impaired Gait Yes (1 pt) Mobility Assist Device Used No (0 pt) Altered Elimination No (0 pt) Score/Fall Risk Level 0 - 2 = Low Risk Oriented to surroundings, Maintained a safe environment, Educated pt \T\ family on fall prevention, incl call for assistance when getting out of bed, Assessed \T\ reinforced patient's understanding of fall precautions, Hourly rounding (assess needs \T\ fall precautionary measures) done, Used ambulatory aids as needed (educated on \T\ assisted with), Used gait belt as appropriate. Abuse screen: Denies threats or abuse. Nutritional screening: No deficits noted. Tuberculosis screening: No symptoms or risk factors identified. Assessment: 05:45 Reassessment: see triage assessment. bm8 06:44 General: report faxed at [phone]. attempted to notify 2nd floor nurses station X2, 2nd lg3 floor charge nurse phone and lead warehouse associate phone with no answer. . 07:30 Reassessment: Patient appears in no apparent distress at this time. Patient and/or ph family updated on plan of care and expected duration. Pain level reassessed. Patient is alert, oriented x 3, equal unlabored respirations, skin warm/dry/pink. Vital Signs: 05:16 BP 168 / 83; Pulse 115; Resp 18; Temp 102.7; Pulse Ox 98% ; Weight 145.15 kg; Height 5 bm8 ft. 5 in. ; Pain 7/10; 06:37 BP 143 / 51; Pulse 94; Resp 19 S; Temp 100.9(O); Pulse Ox 99% on R/A; lg3 08:02 BP 143 / 57; Pulse 91; Resp 18; Temp 98.9; Pulse Ox 99% on R/A; ph 05:16 Body Mass Index 53.25 (145.15 kg, 165.1 cm) bm8 05:16 Pain Scale: Adult bm8 [place] Coma Score: 05:45 Eye Response: spontaneous(4). Motor Response: obeys commands(6). Verbal Response: bm8 oriented(5). Total: 15. ED Course: 05:02 Patient arrived in ED. ra3 05:09 Weston Carty MD is Attending Physician. leigh 05:16 Darrel Vigil, RN is Primary Nurse. bm8 05:19 Triage completed. bm8 05:19 Arm band placed on right wrist. bm8 05:40 First set of blood cultures drawn by me. vk 05:45 Patient has correct armband on for positive identification. Placed in gown. Bed in low bm8 position. Call light in reach. Side rails up X2. Adult w/ patient. Client placed on continuous cardiac and pulse oximetry monitoring. NIBP monitoring applied. conveyor monitor on. Pulse ox on. NIBP on. Door closed. Noise minimized. Pillow given. Verbal reassurance given. Head of bed elevated. 05:45 No provider procedures requiring assistance completed. Inserted saline lock: 20 gauge bm8 in right antecubital area, using aseptic technique. Blood collected. Flushed with 10 mL NS. Patient maintains SpO2 saturation greater than 95% on room air. 06:00 Second set of blood cultures drawn by me. vk 06:08 US Extremity Venous W Compression Mukund In Process Unspecified. EDMS 06:17 Harjeet Mcknight MD is Hospitalizing Provider. leigh 06:20 CT Chest Abdomen Pelvis W/O Contrast In Process Unspecified. EDMS 07:23 Primary Nurse role handed off by Darrel Vigil RN bd 08:01 Patient admitted, IV remains in place. ph Administered Medications: 05:25 Not Given (Other Intervention Used): [id number] mg PO once bm8 05:44 Drug: Ibuprofen PO 800 mg PO once Route: PO; bm8 07:59 Follow up: Response: No adverse reaction ph 05:44 Drug: Famotidine IVP 20 mg IVP once; dilute with 10 mL 0.9% NaCl; give over 2 minutes bm8 Route: IVP; Site: right antecubital; 07:58 Follow up: Response: No adverse reaction ph 05:45 Drug: NS 0.9% IV (30 ml/kg) 30 ml/kg IV at bolus once; Sepsis Protocol; to be given as bm8 a bolus over 90 minutes Route: IV; Rate: bolus; Site: right antecubital; 08:01 Follow up: Response: No adverse reaction; IV Status: Infusion continued upon admission; ph IV Intake: 2000ml ; taken to inpatient room w/ liter #3 infusing, verbal order from Dr Carty to administer 3 liters 05:57 Drug: vancoMYCIN IVPB 1.5 grams IVPB at calculated rate once Route: IVPB; Rate: bm8 calculated rate; Site: right antecubital; 07:58 Follow up: Response: No adverse reaction; IV Status: Completed infusion; IV Intake: ph 250ml 05:57 Drug: LevOfloxacin PO 750 mg PO once Route: PO; bm8 07:59 Follow up: Response: No adverse reaction ph 07:48 CANCELLED (Physician Discretion): magnesium sulfate1 grams IVPB once over 1 hrs aa5 Medication: 05:45 VIS not applicable for this client. bm8 Intake: 07:58 IV: 250ml; Total: 250ml. ph 08:01 IV: 2000ml; Total: 2250ml. ph Outcome: 06:18 Decision to Hospitalize by Provider. leigh 08:03 Admitted to Med/surg accompanied by tech, via wheelchair, with chart, ph 08:03 Condition: good 08:03 Instructed on the need for admit, 08:03 Patient left the ED. ph Signatures: Dispatcher [employer] EDMS Alba Flores Corey, MD MD cha Hall, Patricia, RN RN ph Able, Jasmina RN RN michael3 Marisol Grover ra3 Obdulia Pires Brad, RN RN bm8 Harini Arriola RN aa5 Corrections: (The following items were deleted from the chart) 08:02 08:00 Response: No adverse reaction; IV Status: Infusion continued upon admission; IV ph Intake: 1000ml ; taken to inpatient room w/ liter #2 infusing ph
--- NOTE | 2024-05-10 06:19 | EDPHYS ---
Physician Documentation [facility] Name: Nicola Harvey Age: 59 yrs Sex: Male : 1965 Arrival Date: 05/10/2024 Time: 04:58 Bed 5 Private MD: ED Physician Weston Carty HPI: 05/10 05:37 This 59 yrs old Male presents to ER via Wheelchair with complaints of Fever, leigh Dizziness. 05:37 The patient reports fever, that was measured at 102 degrees Fahrenheit. Onset: The leigh symptoms/episode began/occurred 1 day(s) ago. Modifying factors: there are no obvious modifying factors. Associated signs and symptoms: Pertinent positives: abdominal pain, altered mental status,\E\ cough, myalgias, nausea. Severity of symptoms: At their worst the symptoms were moderate in the emergency department the symptoms are unchanged. The patient has not experienced similar symptoms in the past. Historical: - Allergies: 05:19 Invokana; bm8 05:19 Jardiance; bm8 05:19 PENICILLINS; bm8 05:19 Zosyn; bm8 - Home Meds: 05:19 amlodipine oral [Active]; atorvastatin oral [Active]; Brilinta 90 mg Oral tablet bm8 [Active]; doxazosin oral [Active]; Furosemide Oral [Active]; Hydralazine Oral [Active]; lisinopril Oral [Active]; Metoprolol Tartrate Oral [Active]; - PMHx: 05:19 CHF; chronic back pain; Diabetes - IDDM; Hyperlipidemia; Hypertension; Obesity; bm8 - PSHx: 05:19 addenoidectomy; Cholecystectomy; rhinoplasty; bm8 - Immunization history:: Adult Immunizations up to date, Client reports receiving the 2nd dose of the Covid vaccine, Flu vaccine is up to date. - Infectious Disease History:: Denies. - Social history:: Smoking status: Patient denies any tobacco usage or history of. Patient/guardian denies using alcohol, street drugs. ROS: 05:38 Eyes: Negative for injury, pain, redness, and discharge, ENT: Negative for injury, leigh pain, and discharge, Neck: Negative for injury, pain, and swelling, Respiratory: Negative for shortness of breath, cough, wheezing, and pleuritic chest pain, Abdomen/GI: Negative for abdominal pain, nausea, vomiting, diarrhea, and constipation, Back: Negative for injury and pain, : Negative for injury, bleeding, discharge, and swelling, Skin: Negative for injury, rash, and discoloration, Neuro: Negative for headache, weakness, numbness, tingling, and seizure, Psych: Negative for depression, anxiety, suicide ideation, homicidal ideation, and hallucinations, Allergy/Immunology: Negative for hives, rash, and allergies, Endocrine: Negative for neck swelling, polydipsia, polyuria, polyphagia, and marked weight changes, Hematologic/Lymphatic: Negative for swollen nodes, abnormal bleeding, and unusual bruising, 05:38 Constitutional: Positive for body aches, chills, fatigue, fever, malaise, 05:38 Cardiovascular: Positive for palpitations, Negative for palpitations, 05:38 MS/extremity: Positive for decreased range of motion, erythema, swelling, tenderness, of the right leg and left leg, Exam: 05:38 Head/Face: Normocephalic, atraumatic. Eyes: Pupils equal round and reactive to light, leigh extra-ocular motions intact. Lids and lashes normal. Conjunctiva and sclera are non-icteric and not injected. Cornea within normal limits. Periorbital areas with no swelling, redness, or edema. ENT: Nares patent. No nasal discharge, no septal abnormalities noted. Tympanic membranes are normal and external auditory canals are clear. Oropharynx with no redness, swelling, or masses, exudates, or evidence of obstruction, uvula midline. Mucous membranes moist. Neck: Trachea midline, no thyromegaly or masses palpated, and no cervical lymphadenopathy. Supple, full range of motion without nuchal rigidity, or vertebral point tenderness. No Meningismus. Chest/axilla: Normal chest wall appearance and motion. Nontender with no deformity. No lesions are appreciated. Respiratory: Lungs have equal breath sounds bilaterally, clear to auscultation and percussion. No rales, rhonchi or wheezes noted. No increased work of breathing, no retractions or nasal flaring. Back: No spinal tenderness. No costovertebral tenderness. Full range of motion. Male : Normal genitalia with no discharge or lesions. Skin: Warm, dry with normal turgor. Normal color with no rashes, no lesions, and no evidence of cellulitis. Neuro: Awake and alert, GCS 15, oriented to person, place, time, and situation. Cranial nerves II-XII grossly intact. Motor strength 5/5 in all extremities. Sensory grossly intact. Cerebellar exam normal. Normal gait. Psych: Awake, alert, with orientation to person, place and time. Behavior, mood, and affect are within normal limits. 05:38 Cardiovascular: Rhythm: regular, Pulses: Pulses are 4+ in bilateral radial, brachial, femoral, popliteal, posterior tibial and and dorsalis pedis arteries.. Edema: is not appreciated, JVD: is not appreciated, 05:38 ECG was reviewed by the Attending Physician. 05:38 Musculoskeletal/extremity: Circulation is intact in all extremities. Sensation intact. Compartment Syndrome exam of affected extremity: is normal. Weight bearing: able to fully bear weight, DVT Exam: negative Homans' sign noted on exam, no appreciated bluish discoloration, no erythema, no increased warmth, pain, swelling, tenderness, Vital Signs: 05:16 BP 168 / 83; Pulse 115; Resp 18; Temp 102.7; Pulse Ox 98% ; Weight 145.15 kg; Height 5 bm8 ft. 5 in. ; Pain 7/10; 06:37 BP 143 / 51; Pulse 94; Resp 19 S; Temp 100.9(O); Pulse Ox 99% on R/A; lg3 08:02 BP 143 / 57; Pulse 91; Resp 18; Temp 98.9; Pulse Ox 99% on R/A; ph 05:16 Body Mass Index 53.25 (145.15 kg, 165.1 cm) bm8 05:16 Pain Scale: Adult bm8 [place] Coma Score: 05:45 Eye Response: spontaneous(4). Motor Response: obeys commands(6). Verbal Response: bm8 oriented(5). Total: 15. MDM: 05:10 Medical Screening Exam initiated leigh 05:41 Differential diagnosis: abscess, cellulitis, viral Infection, bacterial infection, URI, leigh bronchitis, pneumonia UTI. Data reviewed: vital signs, nurses notes, lab test result(s), EKG, radiologic studies, CT scan, plain films. Consideration of Admission/Observation Patient was admitted/placed on observation. Escalation of care including admission/observation considered. I considered the following discharge prescriptions or medication management in the emergency department Medications were administered in the Emergency Department. See MAR. Test considered but Not performed: Ultrasound no abd usg. Care significantly affected by the following chronic conditions: Diabetes, Hypertension, Congestive Heart Failure, Obesity, high lipids. 07:37 Post IV fluid administration reassessment for Sepsis: Client prescribed 30 mL/kg IVF. [facility] Sepsis focused reassessment complete. 05/10 05:19 Order name: Basic Metabolic Panel; Complete Time: 06:35 [facility] 05/10 05:19 Order name: CBC with Diff [facility] 05/10 05:19 Order name: LFT's; Complete Time: 06:35 [facility] 05/10 05:19 Order name: Magnesium; Complete Time: 06:35 [facility] 05/10 05:19 Order name: NT PRO-BNP; Complete Time: 06:35 [facility] 05/10 05:19 Order name: PT-INR; Complete Time: 06:35 [facility] 05/10 05:19 Order name: Troponin HS; Complete Time: 06:35 [facility] 05/10 05:19 Order name: Lipase; Complete Time: 06:35 [facility] 05/10 05:19 Order name: Blood Culture Adult (2) [facility] 05/10 05:19 Order name: Lactate w/ 2H reflex if indic.; Complete Time: 06:35 [facility] 05/10 05:19 Order name: Urinalysis w/ reflexes [facility] 05/10 05:20 Order name: Flu; Complete Time: 07:12 [facility] 05/10 05:20 Order name: SARS RAPID; Complete Time: 07:12 [facility] 05/10 05:20 Order name: Strep; Complete Time: 07:12 [facility] 05/10 06:22 Order name: Ghost Lactate-NO COLLECT Timer [facility] 05/10 05:19 Order name: XRAY Chest (1 view) [facility] 05/10 05:19 Order name: CT Chest Abdomen Pelvis W/O Contrast; Complete Time: 07:12 [facility] 05/10 05:19 Order name: US Extremity Venous W Compression Mukund [facility] 05/10 07:17 Order name: RAD; Complete Time: 07:36 [facility] 05/10 05:19 Order name: EKG; Complete Time: 05:20 [facility] 05/10 05:19 Order name: Cardiac monitoring; Complete Time: 05:45 [facility] 05/10 05:19 Order name: EKG - Nurse/Tech; Complete Time: 05:45 [facility] 05/10 05:19 Order name: IV Saline Lock; Complete Time: 05:45 [facility] 05/10 05:19 Order name: Labs collected and sent; Complete Time: 05:45 [facility] 05/10 05:19 Order name: O2 Per Protocol; Complete Time: 45 [facility] 05/10 05:19 Order name: O2 Sat Monitoring; Complete Time: 05:45 [facility] EC:38 Rate is 100 beats/min. Rhythm is regular. QRS [place] is Normal. DE interval is normal. leigh QRS interval is normal. QT interval is normal. No Q waves. T waves are Normal. No ST changes noted. Clinical impression: Normal ECG, NSR w/ Non-specific ST/T Changes, and No evidence of ischemia. Interpreted by me. Reviewed by me. Administered Medications: 05:25 Not Given (Other Intervention Used): [id number] mg PO once bm8 05:44 Drug: Ibuprofen PO 800 mg PO once Route: PO; bm8 07:59 Follow up: Response: No adverse reaction ph 05:44 Drug: Famotidine IVP 20 mg IVP once; dilute with 10 mL 0.9% NaCl; give over 2 minutes bm8 Route: IVP; Site: right antecubital; 07:58 Follow up: Response: No adverse reaction ph 05:45 Drug: NS 0.9% IV (30 ml/kg) 30 ml/kg IV at bolus once; Sepsis Protocol; to be given as bm8 a bolus over 90 minutes Route: IV; Rate: bolus; Site: right antecubital; 08:01 Follow up: Response: No adverse reaction; IV Status: Infusion continued upon admission; ph IV Intake: 2000ml ; taken to inpatient room w/ liter #3 infusing, verbal order from Dr Carty to administer 3 liters 05:57 Drug: vancoMYCIN IVPB 1.5 grams IVPB at calculated rate once Route: IVPB; Rate: bm8 calculated rate; Site: right antecubital; 07:58 Follow up: Response: No adverse reaction; IV Status: Completed infusion; IV Intake: ph 250ml 05:57 Drug: LevOfloxacin PO 750 mg PO once Route: PO; bm8 07:59 Follow up: Response: No adverse reaction ph 07:48 CANCELLED (Physician Discretion): magnesium sulfate1 grams IVPB once over 1 hrs aa5 Disposition Summary: 05/10/24 06:18 Hospitalization Ordered Notes: Hospitalization Status: Inpatient Admission [facility] Provider: Harjeet Mcknight cha Location: Telemetry/MedSurg (Inpatient) leigh Condition: Fair leigh Problem: new leigh Symptoms: have improved leigh Bed/Room Type: Standard [facility] Room Assignment: 210(05/10/24 06:34) af3 Diagnosis - Fever, unspecified leigh - Cellulitis and acute lymphangitis of other parts of limb leigh - Lymphedema, not elsewhere classified leigh - Severe sepsis without septic shock leigh - Obesity, unspecified leigh - Morbid (severe) obesity due to excess calories leigh - Type 1 diabetes mellitus with hyperglycemia leigh Forms: - Medication Reconciliation Form leigh - SBAR form leigh - Leadership Thank You Letter leigh Signatures: Dispatcher [employer] EDMS Weston Carty MD MD cha McDonald, Brad RN RN bm8 Chetna Simms af3 Harini Arriola RN aa5 Mary Anne Grace RN ph Corrections: (The following items were deleted from the chart) 05:20 05:20 BASIC METABOLIC PANEL+C.LAB.BRZ ordered. EDMS EDMS 05:20 05:20 CBC+H.LAB.BRZ ordered. EDMS EDMS 05:20 05:20 HEPATIC FUNCTION+C.LAB.BRZ ordered. EDMS EDMS 05:20 05:20 MAGNESIUM+C.LAB.BRZ ordered. EDMS EDMS 05:20 05:20 PROBNP+C.LAB.BRZ ordered. EDMS EDMS 05:20 05:20 PROTIME (+INR)+COAG.LAB.BRZ ordered. EDMS EDMS 05:20 05:20 Troponin High Sensitivity+C.LAB.BRZ ordered. EDMS EDMS 05:20 05:20 LIPASE+C.LAB.BRZ ordered. EDMS EDMS 05:20 05:20 BLOOD CULTURE*+BA.LAB.BRZ ordered. EDMS EDMS 05:20 05:20 LACTATE+C.LAB.BRZ ordered. EDMS EDMS 05:20 05:20 Urinalysis+U.LAB.BRZ ordered. EDMS EDMS 06:34 06:18 leigh af3 07:48 07:37 Magnesium Sulfate IVPB 1 grams IVPB once over 1 hrs ordered. leigh aa5
[2024-05-10 06:20] LABS: Albumin 3.3 g/dL (3.4-5.0); Albumin/Globulin Ratio 0.8 (1.1-1.8); Bilirubin Direct 0.2 mg/dL (0-0.2); Bilirubin Indirect, Calculated 0.4 mg/dL (0.2-0.8); Bilirubin Total 0.6 mg/dL (0.2-1.0); Globulin 4.2 g/dL (2.3-3.5); Magnesium 1.7 mg/dL (1.6-2.4); Protein, Total 7.5 g/dL (6.4-8.2); Troponin High Sensitivity 11.9 pg/mL (<58.9)
[2024-05-10 06:42] LABS: SARS-CoV-2 Antigen CONTROL BLUE LINE VIS/BG OK; SARS-CoV-2 Antigen Rapid Res Negative (Negative)
--- NOTE | 2024-05-10 06:52 | RAD REPORT ---
EXAM: CT CHEST, ABDOMEN AND PELVIS WITHOUT CONTRAST CLINICAL INDICATION: Male, 59 years old Congestion;Pain TECHNIQUE: CT chest, abdomen and pelvis was performed, without IV contrast, as per department protoco l. Axial, sagittal and coronal reconstructions were obtained. One or more of the following dose reduction techniques were used: Automated exposure control, adjustment of the mA and/or kV according to the patient size, and/or iterative reconstruction. Unless otherwise specified, incidental findings do not require dedicated imaging follow-up. [id number]. COMPARISON: Chest CT 06/11/2018, CT abdomen/pelvis on 01/12/2023 FINDINGS: The lack of intravenous contrast limits the sensitivity of this exam for evaluation of solid visceral organs, vascular structures, and retroperitoneum. Chest: LOWER NECK/CHEST WALL: Visualized thyroid gland and soft tissues are normal. LUNGS AND AIRWAYS: Airways are clear. No evidence of airspace or interstitial process. No nodules. PLEURA: No pleural effusion. No pneumothorax. Hemidiaphragms are normally positioned. MEDIASTINUM AND LYMPH NODES: No mediastinal mass or fluid collection. Normal size mediastinal, hilar, and axillary lymph nodes. THORACIC AORTA: Normal caliber and configuration. PULMONARY ARTERIES: Normal caliber. HEART: Multivessel coronary disease. Abdomen/Pelvis LIVER: Hepatomegaly GALLBLADDER/BILE DUCTS: Cholecystectomy. PANCREAS: No mass, ductal dilation, or catracho-pancreatic fluid. SPLEEN: Normal size. No focal lesion. ADRENALS: Normal; no mass. KIDNEYS AND URETERS: Normal size and contour. No hydronephrosis. GASTROINTESTINAL TRACT: Stomach is non-dilated. Small bowel has normal course and caliber. No colonic wall thickening or pericolonic inflammatory changes. PERITONEUM: No free fluid. LYMPH NODES: No lymphadenopathy. ABDOMINAL AORTA AND OTHER VESSELS: Normal caliber aorta and IVC. URINARY BLADDER: Normal contour. REPRODUCTIVE ORGANS: No pathologic process. MUSCULOSKELETAL: Multilevel degenerative changes are present in the spine. There is severe central sp inal stenosis at T12-L1, L1-2, and L2-3 secondary to bridging posterior osteophytes. ADDITIONAL FINDINGS: None IMPRESSION: No acute or significant abnormalities in the chest, abdomen, or pelvis.
--- NOTE | 2024-05-10 07:16 | RAD REPORT ---
EXAM: Chest Single View HISTORY: COUGH COMPARISON: 07/15/2023 FINDINGS: LUNGS/PLEURA: The lungs are clear. No pleural effusions or pneumothorax. No pulmonary edema. MEDIASTINUM: The mediastinal silhouette is within normal limits. CARDIAC: The cardiac silhouette is within normal limits. UPPER ABDOMEN: No significant abnormality. BONES: No acute fracture. LINES/TUBES/OTHER: N/A IMPRESSION: No evidence of acute cardiopulmonary disease.
--- NOTE | 2024-05-10 07:27 | RAD REPORT ---
EXAM: Extrem Venous W Compress Mukund US Bilateral Lower Extremity Venous Duplex Doppler HISTORY: Pain, Swelling COMPARISON: US right leg vein 12/24/2022 TECHNIQUE: Grayscale, color Doppler, duplex Doppler, spectral Doppler images and analysis with compre ssion and augmentation of right and left lower extremity veins. FINDINGS: Right and Left common femoral, greater saphenous, femoral, deep (profunda) femoral, popliteal, soccer commentator ior tibial veins unremarkable without evidence of clot. IMPRESSION: No sonographic evidence of right or left lower extremity DVT. Electronically signed by: Darci Piedra MD 05/10/2024 06:23 AM [facility] Due to temporary technical issues with the PACS/Dine perfectibRB-Doors reporting system, reports are being signed by the in-house radiologist without review as a courtesy to ensure prompt reporting the interpreting radiologist is fully responsible for the content of the report. Transcribed Date/Time: 05/10/2024 7:27 AM
[2024-05-10] MEDS ORDERED: NA CHLORIDE 0.9% 1,000 ML ONE (08:25)
[2024-05-10] MEDS ORDERED: ONDANSETRON 4 MG/2 ML VIAL IV PRN (08:28)
[2024-05-10] MEDS ORDERED: D10W 125 ML IV PRN (08:28)
[2024-05-10] MEDS ORDERED: GLUCAGON 1 MG/VIAL IM PRN (08:28)
[2024-05-10] MEDS ORDERED: MORPHINE 4 MG/ML SYR IV PRN (08:28)
[2024-05-10 09:26] LABS: Blood Morphology Comment NOT SEEN (NOT SEEN); Platelet Estimate ADEQ; White Blood Cell Scan OK (OK)
[2024-05-10] MEDS: NA CHLORIDE 0.9% 1,000 ML IV SCH (09:29)
[2024-05-10] MEDS: ASPIRIN EC 81 MG TAB PO SCH (09:30)
[2024-05-10] MEDS: lisinopriL 20 MG TAB PO SCH (09:30)
[2024-05-10] MEDS: DOXAZOSIN 2 MG TAB PO SCH (09:30)
[2024-05-10] MEDS: CLOPIDOGREL 75 MG TABLET PO SCH (09:30)
[2024-05-10] MEDS: FUROSEMIDE 40 MG TABLET PO SCH (09:30)
[2024-05-10] MEDS: ISOSORBIDE MONO SR 30 MG TAB PO SCH (09:30)
[2024-05-10] MEDS: Levofloxacin 750mg IV 750 MG/150 ML BAG IV SCH (09:30)
[2024-05-10] MEDS: METOPROLOL TAR 50 MG TAB PO SCH (09:30)
[2024-05-10] MEDS: INSULIN REGULAR (HUMAN) 100 UNIT/ML SQ SCH (11:30)
[2024-05-10 11:51] VITALS: BMI 53.2
[2024-05-10 12:39] LABS: Sqamous Epithelial <5 /HPF (None Seen); Urine Bacteria None Seen /HPF (<20); Urine Bilirubin NEGATIVE (Negative); Urine Blood Trace (Negative); Urine Clarity Clear (Clear); Urine Color Light-Yellow (Yellow); Urine Culture Reflex Order NOT NEEDED; Urine Glucose 4+ (Negative); Urine Ketones NEGATIVE (Negative); Urine Microscopic Reflex YN ORDER UMIC; Urine Mucus Slight /HPF (None Seen); Urine Nitrite NEGATIVE (Negative); Urine Protein 2+ (Negative); Urine RBC <5 /HPF (None Seen); Urine Urobilinogen Normal (Normal); Urine WBC <5 /HPF (<5); Urine pH 5.5 (5.0-7.0)
[2024-05-10] MEDS: VANCOMYCIN 1.5 GM in NA CHLORIDE 0.9% 500 ML IVPB SCH (17:15)
[2024-05-10] MEDS: ENOXAPARIN 40 MG/0.4 ML SQ SCH (17:15)
[2024-05-10] MEDS: ATORVASTATIN 80 MG TAB PO SCH (20:48)
[2024-05-10] MEDS: ACETAMINOPHEN 325 MG TABLET PO PRN (21:58)
[2024-05-10] MEDS: IBUPROFEN 400 MG TAB PO PRN (23:59)
--- NOTE | 2024-05-11 02:56 | HP ---
Date of Admission: 05/10/2024 Chief Complaint: Fever, chills, and leg pain. History Of Present Illness: This is a 59-year-old pleasant male patient who has multiple prior episodes of cellulitis of leg, was doing fine in his normal usual state of health until last night. He started to have fever, chills, and pain in his right leg. Rishabh gutierrez came into emergency room and after he was evaluated in the ER, he was admitted to the hospital. I was contacted from emergency room. I saw him in emergency room this morning, and his was with him at bedside. Allergies: NO KNOWN ALLERGIES. Medications: List reviewed. Review of Systems: Constitutional: As mentioned above. Musculoskeletal: As mentioned above. All other systems reviewed and negative. Social History: Negative for smoking and alcohol use. Family History: Significant for colon cancer and prostate cancer. Past Surgical History: Significant for sinus surgery. Past Medical History: Significant for hypertension, obstructive sleep apnea, cervical spinal stenosis, type 2 diabetes mellitus, lumbar radiculopathy, hyperlipidemia, recurrent cellulitis of lower extremities, and lymphedema of legs. Also past medical history significant for coronary artery disease. Physical Examination: Vital Signs: Height 5 feet 5 inches, weight 320 pounds, temperature 98.2, pulse 97, respiratory rate 16, blood pressure 164/74, oxygen saturation 96%. General: Awake, alert, oriented, not in distress. HEENT: Head atraumatic, normocephalic. Conjunctivae nonerythematous. Sclerae white. Mouth, no thrush or edema noted. Ears/Nose, no mass, lesion, discharge noted. Neck: Supple. No JVD, lymph nodes, bruit, thyromegaly noted. Lungs: Bilateral good equal air entry. Clear to auscultation. No rhonchi. No rales. Heart: Normal heart sounds, no murmur or gallop. Abdomen: Soft, bowel sounds normal. No guarding, rigidity, tenderness, mass, hepatosplenomegaly, distention, or bruit noted. Extremities: Bilateral trace edema of both lower extremities. Right lower extremity has pink, warm skin involving lower leg, lower two-third of right leg. No open wound. Skin: No rash, ulcer, cellulitis. Lymphatics: No lymph node enlargement in neck, supraclavicular, infraclavicular region. Neuro: No focal neurological deficit. Chest: Unremarkable. External Genitalia: Deferred. Rectal: Deferred. Laboratory Data: WBC 8, hemoglobin 12.4, platelets 202. Sodium 136, potassium 4, chloride 104, bicarb 27, BUN 17, creatinine 1.13, glucose 255. Liver function tests unremarkable. Lactic acid 2.1. Venous Doppler of both lower extremities: Negative for DVT. Impression: 1. Cellulitis, right leg. 2. Hypertension. 3. Type 2 diabetes mellitus. 4. Obstructive sleep apnea. 5. Chronic diastolic heart failure. 6. Coronary artery disease. 7. Hyperlipidemia. 8. Cervical spinal stenosis. 9. Lumbar spinal stenosis. 10. Osteoarthritis, multiple sites. Plan: Admit the patient to hospital for further evaluation and management of this problem. The patient is appropriate for inpatient and is expected to spend 2 midnights in hospital. We will go ahead and start the patient on empiric antibiotic, which is vancomycin and Levaquin. The patient is allergic to penicillin, so we will not use that group of medication. Blood culture was done. We will follow up on the results. For diabetes, we will manage that with sliding scale insulin per order. For hypertension, continue antihypertensive medication per order. Monitor blood pressure and if necessary adjust medication. For hyperlipidemia, we will continue statin therapy per order and no need for further intervention. Coronary artery disease problem is stable. We will continue aspirin per order. DVT prophylaxis will be started using Lovenox. Details and plan of treatment discussed with the patient. I will see him tomorrow for followup. Total time spent today 80 minutes including review of last office visit record from 03/22/2024, communication with emergency room physician, review of emergency room visit record, and performing today's evaluation and management. WALT/MODL Voice ID: [id number] ANNIE
[2024-05-11 04:22] VITALS: TEMP 98.5
[2024-05-11 06:26] LABS: Anion Gap 6.6 mEq/L (5.0-15.0); Potassium 3.6 mEq/L (3.5-5.1)
[2024-05-11 06:42] LABS: Absolute Eosinophils 0.1 K/uL (0-0.5); Absolute Lymphocytes (CBC) 0.6 K/uL (0.7-4.9); Absolute Monocytes 0.4 K/uL (0.1-1.3); Absolute Neutrophil 3.1 K/uL (1.8-8.0); Basophils % 0.8 % (0-1.3); Eosinophils % 3.1 % (0-4.4); Hematocrit 34.9 % (39.6-49.0); Hemoglobin 11.4 g/dL (13.6-17.9); Lymphocytes % 14.5 % (15.3-44.8); MCHC 32.7 g/dL (32.0-36.0); MCV 82.8 fL (80-100); MPV 7.7 fL (7.6-11.3); Monocytes % 9.5 % (3.3-12.3); Neutrophils % 72.1 % (41.7-73.7); Platelets 170 thou/uL (152-406); RBC Red Blood Cell Count 4.21 M/uL (4.33-5.43); Red Cell Distribution Width 15.8 % (12.1-15.2)
[2024-05-11 09:19] VITALS: O2SAT 96
[2024-05-11 09:51] VITALS: BP 172/74
--- NOTE | 2024-05-11 20:52 | DS ---
Date of Discharge: 05/11/2024 Disposition: Discharged to go home. Physical Examination: HEENT: Unremarkable. Lungs: Clear to auscultation. Heart: Sounds normal. Abdomen: Soft. Bowel sounds normal. No guarding, rigidity, tenderness, distention. Extremities: Trace leg edema, but redness and warmness from right lower extremity have resolved. Laboratory Data: Today, WBC 4.3, hemoglobin 11.4, platelets 170. Sodium 135, potassium 3.6, chloride 105, bicarb 23, BUN 12, creatinine 0.9, glucose 202. Yesterday, WBC 8, hemoglobin 12.4, platelets 202. Sodium 136, potassium 4, chloride 104, bicarb 27, BUN 17, creatinine 1.13, glucose 255. Liver function tests unremarkable. Lactic acid 2.1. Venous Doppler of both lower extremities: Negative for DVT. Discharge Medications And Instructions: 1. Continue all prior home medications. 2. Take Levaquin 750 mg daily for 10 days. 3. Follow up at my office next week. 4. The patient may return to work tomorrow. Hospital Course: This is a 59-year-old pleasant male patient who came into emergency room yesterday with fever, chills, right leg pain and redness. Please see dictated H and P for more information. After the patient was evaluated in the emergency room, he was admitted to the hospital with cellulitis of right leg. The patient was started on Levaquin and vancomycin, and his cultures remained negative so far. This morning, when I saw him, he was afebrile. Overall feeling lot better. His redness and pain from the right leg have resolved, and have responded very well to antibiotics. After I saw him, decision was made to discharge him to go home with continuation of antibiotic, Levaquin, per order, and I will see him next week at office for followup visit. Details and plan of treatment discussed with the patient. The patient's insurance company called office today to get more details to get approval for inpatient admission and after I provided those details, approval was granted. Final Diagnoses: 1. Cellulitis, right leg. 2. Hypertension. 3. Type 2 diabetes mellitus. 4. Obstructive sleep apnea. 5. Chronic diastolic heart failure. 6. Coronary artery disease. 7. Hyperlipidemia. 8. Cervical spinal stenosis. 9. Lumbar spinal stenosis. 10. Osteoarthritis, multiple sites. Total time spent today, 45 minutes. WALT/MODL Voice ID: [id number] Report ID: [id number] ANNIE
--- NOTE | 2024-05-13 11:36 | EKG ---
Test Date: 2024-05-10 Test Time: 13:08:55 Coroner Transport Technician: MEASUREMENT RESULTS: Intervals: Rate: 68 SD: 156 QRSD: 90 QT: 426 QTc: 452 Steele: P: 27 SD: 156 QRS: 171 T: 32 INTERPRETIVE STATEMENTS: Normal sinus rhythm Left posterior fascicular block Inferior infarct, age undetermined Possible Anterior infarct, age undetermined Abnormal ECG Compared to ECG 05/10/2024 05:25:56 Left posterior fascicular block now present Myocardial infarct finding now present Right-axis deviation no longer present Incomplete right bundle-branch block no longer present Electronically Signed On 05-13-24 11:36:17 INVOICE CLASSIFICATION CLERK by Jaime Escobar
--- NOTE | 2024-05-13 11:38 | EKG ---
Test Date: 2024-05-10 Test Time: 05:25:56 Eye Care Professional: TYLER MEASUREMENT RESULTS: Intervals: Rate: 100 WI: 144 QRSD: 106 QT: 336 QTc: 433 [place]: P: 37 WI: 144 QRS: 94 T: 59 INTERPRETIVE STATEMENTS: Normal sinus rhythm Rightward axis Incomplete right bundle branch block Borderline ECG Compared to ECG 07/15/2023 17:41:00 Right-axis deviation now present Incomplete right bundle-branch block now present Electronically Signed On 05-13-24 11:36:40 INSPECTOR P[employer]ER [employer]ODUCTS by Jaime Escobar
== END 2024-05-11 12:41 | disposition home or self-care (01) | DRG 603 ==
LOC: ER 04:58 → ERHOLD 06:21 → 2ND 06:53
PROVIDERS: ADMIT Internal Medicine; ATTEND Internal Medicine
DX: L03.115 Cellulitis of right lower limb (principal); I50.32 Chronic diastolic (congestive) heart failure; Z68.43 Body mass index [BMI] 50.0-59.9, adult; I11.0 Hypertensive heart disease with heart failure; E10.65 Type 1 diabetes mellitus with hyperglycemia; E66.01 Morbid (severe) obesity due to excess calories; E78.5 Hyperlipidemia, unspecified; I25.10 Atherosclerotic heart disease of native coronary artery without angina pectoris; M48.02 Spinal stenosis, cervical region; M48.061 Spinal stenosis, lumbar region without neurogenic claudication; M15.9 Polyosteoarthritis, unspecified; L03.116 Cellulitis of left lower limb; Z11.52 Encounter for screening for COVID-19
CPT/HCPCS: 36415; 71045; 71250; 74176; 80048; 80076; 81001; 82947; 83605; 83690; 83735; 83880; 84484; 85025; 85610; 87040; 87070; 87081; 87804; 87811; 93005; 93970; 96365; 96375; 99285; J1650; J7030; J7040

== ENCOUNTER 2024-08-07 10:58 | Inpatient (IN) | payer OTHER ==
[2024-08-07] MEDS ORDERED: ASPIRIN EC 81 MG TAB PO ONE (11:16)
[2024-08-07 11:36] LABS: Absolute Basophils 0.1 K/uL (0-0.5); Absolute Eosinophils 0.3 K/uL (0-0.5); Absolute Lymphocytes (CBC) 1.2 K/uL (0.7-4.9); Absolute Monocytes 0.4 K/uL (0.1-1.3); Absolute Neutrophil 4.4 K/uL (1.8-8.0); Basophils % 0.9 % (0-1.3); Eosinophils % 4.6 % (0-4.4); Hematocrit 35.6 % (39.6-49.0); Hemoglobin 12.1 g/dL (13.6-17.9); Lymphocytes % 19.4 % (15.3-44.8); MCH 26.9 pg (27.0-35.0); MCHC 34.1 g/dL (32.0-36.0); MPV 7.5 fL (7.6-11.3); Monocytes % 6.6 % (3.3-12.3); Neutrophils % 68.5 % (41.7-73.7); Nucleated Red Blood Cells % 0.1 % (0-0); Platelets 232 thou/uL (152-406); RBC Red Blood Cell Count 4.51 M/uL (4.33-5.43); Red Cell Distribution Width 15.4 % (12.1-15.2)
--- NOTE | 2024-08-07 11:50 | RAD REPORT ---
EXAMINATION: ONE VIEW CHEST XR CLINICAL INDICATION: CHEST PAIN TECHNIQUE: Frontal chest projection is submitted. Examination is limited by patient positioning and t echnique. COMPARISON: 05/10/2024 FINDINGS: The lungs are well inflated and clear. The heart is upper limit of normal in size. No displaced fract ures identified. IMPRESSION: No acute intrathoracic abnormalities.
[2024-08-07 11:53] LABS: ALT/SGPT 23 U/L (16-61); AST/SGOT 13 U/L (15-37); Albumin 3.2 g/dL (3.4-5.0); Albumin/Globulin Ratio 0.9 (1.1-1.8); Alkaline Phosphatase 90 U/L (45-117); Anion Gap 8.3 mEq/L (5.0-15.0); BUN Blood Urea Nitrogen 13 mg/dL (7-18); Bicarbonate 27 mEq/L (21-32); Bilirubin Direct < 0.2 mg/dL (0-0.2); Bilirubin Indirect, Calculated 0.2 mg/dL (0.2-0.8); Bilirubin Total 0.4 mg/dL (0.2-1.0); Globulin 3.7 g/dL (2.3-3.5); Glomerular Filtration Rate 95 ml/min (=/>90); Glucose Level 152 mg/dL (74-106); Magnesium 2.1 mg/dL (1.6-2.4); NT PRO-BNP 249 pg/mL (<125); Potassium 4.3 mEq/L (3.5-5.1); Protein, Total 6.9 g/dL (6.4-8.2); Sodium Level 136 mEq/L (136-145); Troponin High Sensitivity 6.3 pg/mL (<58.9)
[2024-08-07] MEDS ORDERED: ONDANSETRON 4 MG/2 ML VIAL ONE (12:29)
[2024-08-07] MEDS ORDERED: MORPHINE 4 MG/ML SYR ONE (12:29)
--- NOTE | 2024-08-07 12:36 | ER ---
Nurse's Notes [facility] Name: Nicola Harvey Age: 59 yrs Sex: Male : 1965 Arrival Date: 08/07/2024 Time: 10:58 Bed 13 Private MD: Diagnosis: Chest pain, unspecified Presentation: 08/07 11:11 Chief complaint: Patient states: Mid-sternal chest pain that started earlier today, ph also reports dizziness when walking and SOB. Coronavirus screen: Vaccine status: Patient reports being unvaccinated. Ebola Screen: No symptoms or risks identified at this time. Initial Sepsis Screen: Does the patient meet any 2 criteria? No. Patient's initial sepsis screen is negative. Initial Sepsis Screen: Does the patient have a suspected source of infection? No. Patient's initial sepsis screen is negative. Risk Assessment: Do you want to hurt yourself or someone else? Patient reports no desire to harm self or others. Onset of symptoms was August 07, 2024. 11:11 Method Of Arrival: Ambulatory ph 11:11 Acuity: ANGE 2 ph Triage Assessment: 11:12 General: Appears in no apparent distress. Behavior is calm, cooperative, appropriate ph for age. Pain: Complains of pain in mid-sternal area. Neuro: Level of Consciousness is awake, alert, obeys commands, Oriented to person, place, time, situation. Cardiovascular: Reports chest pain, lightheadedness, shortness of breath, Capillary refill < 3 seconds in bilateral fingers Patient's skin is warm and dry. Respiratory: Airway is patent Respiratory effort is even, unlabored, Respiratory pattern is regular, symmetrical. GI: No signs and/or symptoms were reported involving the gastrointestinal system. Derm: Skin is pink, warm \T\ dry. Musculoskeletal: Circulation, motion, and sensation intact. Range of motion: intact in all extremities. Historical: - Allergies: 11:13 Invokana; ph 11:13 Jardiance; ph 11:13 PENICILLINS; ph 11:13 Zosyn; ph - Home Meds: 11:34 aspirin 81 mg Oral tablet, delayed release (enteric coated) [Active]; isosorbide ph mononitrate 30 mg Oral Tablet, Extended Release 24 hr 1 tab daily [Active]; clopidogrel 75 mg oral tablet 1 tab daily [Active]; atorvastatin 80 mg oral tablet 1 tab daily [Active]; lisinopril 20 mg oral tablet 1 tab 2 times per day [Active]; metoprolol tartrate 50 mg oral tablet 2 times per day [Active]; doxazosin 2 mg oral tablet 1 tab twice a day [Active]; furosemide 40 mg oral tablet 1 tab daily [Active]; metformin 500 mg oral tablet 2 tabs 2 times per day [Active]; Humulin R Regular U-100 Insuln 100 unit/mL solution per sliding scale [Active]; tirzepatide subcutaneous [Active]; - PMHx: 11:13 CHF; chronic back pain; Diabetes - IDDM; Hyperlipidemia; Hypertension; Obesity; ph - PSHx: 11:13 addenoidectomy; Cholecystectomy; rhinoplasty; ph - Immunization history:: Adult Immunizations unknown. - Infectious Disease History:: Denies. - Social history:: Smoking status: Patient denies any tobacco usage or history of. Screenin:33 [facility] ED Fall Risk Assessment (Adult) History of falling in the last 3 months, ph including since admission No falls in past 3 months (0 pts) Confusion or Disorientation No (0 pts) Intoxicated or Sedated No (0 pts) Impaired Gait Yes (1 pt) Mobility Assist Device Used No (0 pt) Altered Elimination No (0 pt) Score/Fall Risk Level 0 - 2 = Low Risk Oriented to surroundings, Maintained a safe environment, Hourly rounding (assess needs \T\ fall precautionary measures) done. Abuse screen: Denies threats or abuse. Denies injuries from another. Nutritional screening: No deficits noted. Tuberculosis screening: No symptoms or risk factors identified. Assessment: 11:32 General: SEE TRIAGE ASSESMENT. Cardiovascular: Rhythm is sinus rhythm. ph 13:26 Reassessment: Patient appears in no apparent distress at this time. Patient and/or ph family updated on plan of care and expected duration. Pain level reassessed. Patient is alert, oriented x 3, equal unlabored respirations, skin warm/dry/pink. Vital Signs: 11:11 BP 154 / 69; Pulse 66; Resp 18; Temp 98; Pulse Ox 97% on R/A; ph 11:40 BP 147 / 66; Pulse 69; Resp 18; Pulse Ox 95% on R/A; ph 12:30 BP 129 / 67; Pulse 71; Resp 18; Pulse Ox 96% on R/A; ph 13:25 BP 133 / 67; Pulse 70; Resp 18; Pulse Ox 96% on R/A; ph ED Course: 11:00 Patient arrived in ED. al6 11:01 [facility]ir[facility] Quiro[facility]-C [facility] kb 11:01 Mele Mayfield MD is Attending Physician. kb 11:10 Mary Anne Grace, RN is Primary Nurse. ph 11:12 Triage completed. ph 11:12 Arm band placed on Patient placed in an exam room, on a stretcher, on substance abuse prevention coordinator, ph on pulse oximetry. 11:20 Initial lab(s) drawn, by me, sent to lab. EKG done, by ED staff, reviewed by Mele Mayfield MD. Inserted saline lock: 22 gauge in right antecubital area, using aseptic technique. Blood collected. Flushed with 10 mL NS. Patient maintains SpO2 saturation greater than 95% on room air. 11:32 Basic Metabolic Panel Sent. ph 11:32 CBC with Diff Sent. ph 11:32 LFT's Sent. ph 11:32 Magnesium Sent. ph 11:32 NT PRO-BNP Sent. ph 11:32 Troponin HS Sent. ph 11:34 Patient has correct armband on for positive identification. Placed in gown. Bed in low ph position. Call light in reach. Side rails up X 1. Client placed on continuous cardiac and pulse oximetry monitoring. NIBP monitoring applied. accounting recruiter on. Door closed. Noise minimized. Pillow given. 11:41 XRAY Chest (1 view) In Process Unspecified. EDMS 12:36 Harjeet Mcknight MD is Hospitalizing Provider. kb 13:25 No provider procedures requiring assistance completed. Patient admitted, IV remains in ph place. Administered Medications: 11:19 Drug: Aspirin PO Chewable Tablet 243 mg PO once; 81 mg tablets x 3 Route: PO; ph 13:26 Follow up: Response: No adverse reaction ph 12:46 Drug: morphine IVP or IV 4 mg IVP once over 4 mins Route: IVP; Infused Over: 4 mins; ph Site: right antecubital; 13:26 Follow up: Response: No adverse reaction; Pain is decreased ph 12:46 Drug: Ondansetron IVP 4 mg IVP once; over 2 minutes Route: IVP; Site: right antecubital;ph 13:26 Follow up: Response: No adverse reaction ph 13:25 Drug: Metoprolol PO 25 mg PO once Route: PO; ph 13:26 Follow up: Response: No adverse reaction ph Medication: 11:34 VIS not applicable for this client. ph Outcome: 12:36 Decision to Hospitalize by Provider. kb 14:25 Patient left the ED. ph Signatures: Dispatcher [employer] EDOsiris Lynne, Mary Anne Cote RN RN Clara Trinh
--- NOTE | 2024-08-07 12:36 | EDPHYS ---
Physician Documentation [facility] Name: Nicola Harvey Age: 59 yrs Sex: Male : 1965 Arrival Date: 08/07/2024 Time: 10:58 Bed 13 Private MD: ED Physician Mele Mayfield HPI: 08/07 11:02 This 59 yrs old Male presents to ER via Unassigned with complaints of Chest kb Pain, Breathing Difficulty. 11:02 Pt is a 59 year old male who presents for right and mid chest pain that started at kb 0800. Reports shortness of breath on exertion. . Historical: - Allergies: 11:13 Invokana; ph 11:13 Jardiance; ph 11:13 PENICILLINS; ph 11:13 Zosyn; ph - Home Meds: 11:34 aspirin 81 mg Oral tablet, delayed release (enteric coated) [Active]; isosorbide ph mononitrate 30 mg Oral Tablet, Extended Release 24 hr 1 tab daily [Active]; clopidogrel 75 mg oral tablet 1 tab daily [Active]; atorvastatin 80 mg oral tablet 1 tab daily [Active]; lisinopril 20 mg oral tablet 1 tab 2 times per day [Active]; metoprolol tartrate 50 mg oral tablet 2 times per day [Active]; doxazosin 2 mg oral tablet 1 tab twice a day [Active]; furosemide 40 mg oral tablet 1 tab daily [Active]; metformin 500 mg oral tablet 2 tabs 2 times per day [Active]; Humulin R Regular U-100 Insuln 100 unit/mL solution per sliding scale [Active]; tirzepatide subcutaneous [Active]; - PMHx: 11:13 CHF; chronic back pain; Diabetes - IDDM; Hyperlipidemia; Hypertension; Obesity; ph - PSHx: 11:13 addenoidectomy; Cholecystectomy; rhinoplasty; ph - Immunization history:: Adult Immunizations unknown. - Infectious Disease History:: Denies. - Social history:: Smoking status: Patient denies any tobacco usage or history of. ROS: 11:02 Constitutional: As per HPI kb Exam: 11:02 Constitutional: This is a well developed, well nourished patient who is awake, alert, kb and in no acute distress. Head/Face: Normocephalic, atraumatic. ENT: Moist Mucous membranes Cardiovascular: Regular rate Respiratory: Respirations even and unlabored. No increased work of breathing. Talking in full sentences Skin: Warm, dry with normal turgor. Normal color. MS/ Extremity: Pulses equal, no cyanosis. Neurovascular intact. Full, normal range of motion. Neuro: Awake and alert, GCS 15, oriented to person, place, time, and situation. 11:23 ECG was reviewed by the Attending Physician. kb Vital Signs: 11:11 BP 154 / 69; Pulse 66; Resp 18; Temp 98; Pulse Ox 97% on R/A; ph 11:40 BP 147 / 66; Pulse 69; Resp 18; Pulse Ox 95% on R/A; ph 12:30 BP 129 / 67; Pulse 71; Resp 18; Pulse Ox 96% on R/A; ph 13:25 BP 133 / 67; Pulse 70; Resp 18; Pulse Ox 96% on R/A; ph MDM: 11:01 Medical Screening Exam initiated kb 11:03 Differential diagnosis: arrhythmia, acute [place]. Data reviewed: vital signs, nurses notes. kb 12:34 Consideration of Admission/Observation Patient was admitted/placed on observation. kb Escalation of care including admission/observation considered. Management of patient was discussed with the following: Radiation Oncologist: Dr Escobar accepts consult. Management of patient was discussed with the following: Primary Care Provider: Dr Mcknight accepts pt for admission, wants cardiology consult, serial enzymes, moderate SS, heart healthy diabetic diet, as well as metoprolol 25mg po x1 now. . External Records Reviewed: Inpatient record: Echo from 03/2024 and cadiac cath from 03/18 reviewed. Care significantly affected by the following chronic conditions: Diabetes, Hypertension. Counseling: I had a detailed discussion with the patient and/or guardian regarding the historical points, exam findings, and any diagnostic results supporting the discharge/admit diagnosis, lab results, radiology results, the need for further work-up and treatment in the hospital. 08/07 11:04 Order name: Basic Metabolic Panel; Complete Time: 11:54 kb 08/07 11:04 Order name: CBC with Diff; Complete Time: 11:42 kb 08/07 11:04 Order name: LFT's; Complete Time: 11:54 kb 08/07 11:04 Order name: Magnesium; Complete Time: 11:54 kb 08/07 11:04 Order name: NT PRO-BNP; Complete Time: 11:54 kb 08/07 11:04 Order name: Troponin HS; Complete Time: 11:54 kb 08/07 11:04 Order name: XRAY Chest (1 view); Complete Time: 11:54 kb 08/07 11:04 Order name: EKG; Complete Time: 11:05 kb 08/07 11:04 Order name: Cardiac monitoring; Complete Time: 11:19 kb 08/07 11:04 Order name: EKG - Nurse/Tech; Complete Time: 11:19 kb 08/07 11:04 Order name: IV Saline Lock; Complete Time: 11:32 kb 08/07 11:04 Order name: Labs collected and sent; Complete Time: 11:32 kb 08/07 11:04 Order name: O2 Per Protocol; Complete Time: 11:12 kb 08/07 11:04 Order name: O2 Sat Monitoring; Complete Time: 11:12 kb EC:23 Rate is 64 beats/min. Rhythm is regular. QRS [place] is Normal. [place] interval is normal at kb 158 msec. QRS interval is normal at 100 msec. QT interval is normal at 410 msec. Administered Medications: 11:19 Drug: Aspirin PO Chewable Tablet 243 mg PO once; 81 mg tablets x 3 Route: PO; ph 13:26 Follow up: Response: No adverse reaction ph 12:46 Drug: morphine IVP or IV 4 mg IVP once over 4 mins Route: IVP; Infused Over: 4 mins; ph Site: right antecubital; 13:26 Follow up: Response: No adverse reaction; Pain is decreased ph 12:46 Drug: Ondansetron IVP 4 mg IVP once; over 2 minutes Route: IVP; Site: right antecubital;ph 13:26 Follow up: Response: No adverse reaction ph 13:25 Drug: Metoprolol PO 25 mg PO once Route: PO; ph 13:26 Follow up: Response: No adverse reaction ph Disposition: 16:13 Co-signature as Attending Physician, Mele Mayfield MD I reviewed the patient's care rt provided by the Advanced Practice Provider and agree with the diagnosis and treatment plan. Disposition Summary: 08/07/24 12:36 Hospitalization Ordered Notes: Hospitalization Status: Observation kb Provider: Harjeet Mcknight Location: Telemetry/MedSurg (observation) kb Condition: Stable kb Problem: new kb Symptoms: are unchanged kb Bed/Room Type: Standard Room Assignment: 231(08/07/24 13:37) ty Diagnosis - Chest pain, unspecified kb Forms: - Medication Reconciliation Form kb - SBAR form kb - Leadership Thank You Letter kb Signatures: Dispatcher [employer] EDOsiris Lynne, STRATEGIC DEVELOPMENT MANAGER-C STRATEGIC DEVELOPMENT MANAGER-Mary Anne Briones RN RN ph Tran, MD HALIE Shabazz rt Rodri Carranza ty Corrections: (The following items were deleted from the chart) 11:05 11:05 BASIC METABOLIC PANEL+C.LAB.BRZ ordered. EDMS EDMS 11:05 11:05 CBC+H.LAB.BRZ ordered. EDMS EDMS 11:05 11:05 HEPATIC FUNCTION+C.LAB.BRZ ordered. EDMS EDMS 11:05 11:05 MAGNESIUM+C.LAB.BRZ ordered. EDMS EDMS 11:05 11:05 PROBNP+C.LAB.BRZ ordered. EDMS EDMS 11:05 11:05 Troponin High Sensitivity+C.LAB.BRZ ordered. EDMS EDMS 12:36 12:34 Management of patient was discussed with the following: Primary Care Provider: Dr hcico Mcknight accepts pt for admission, wants cardiology consult, serial enzymes, moderate SS, heart healthy diabetic diet. . kb 13:37 12:36 kb ty
[2024-08-07] MEDS ORDERED: METOPROLOL TAR 25 MG TAB ONE (13:04)
[2024-08-07 14:43] VITALS: BMI 45.8
[2024-08-07] MEDS ORDERED: D10W 125 ML IV PRN (14:45)
[2024-08-07] MEDS ORDERED: GLUCAGON 1 MG/VIAL IM PRN (14:45)
[2024-08-07] MEDS: INSULIN REGULAR (HUMAN) 100 UNIT/ML SQ SCH (15:37)
[2024-08-08 05:42] LABS: Absolute Basophils 0.1 K/uL (0-0.5); Absolute Eosinophils 0.3 K/uL (0-0.5); Absolute Lymphocytes (CBC) 1.1 K/uL (0.7-4.9); Absolute Monocytes 0.4 K/uL (0.1-1.3); Absolute Neutrophil 4.5 K/uL (1.8-8.0); Basophils % 0.8 % (0-1.3); Eosinophils % 4.9 % (0-4.4); Hematocrit 34.2 % (39.6-49.0); Lymphocytes % 16.8 % (15.3-44.8); MCH 27.7 pg (27.0-35.0); MCHC 35.1 g/dL (32.0-36.0); MCV 78.9 fL (80-100); MPV 7.4 fL (7.6-11.3); Monocytes % 6.4 % (3.3-12.3); Neutrophils % 71.1 % (41.7-73.7); Platelets 223 thou/uL (152-406); RBC Red Blood Cell Count 4.34 M/uL (4.33-5.43); Red Cell Distribution Width 15.4 % (12.1-15.2)
[2024-08-08 06:31] LABS: Anion Gap 8.6 mEq/L (5.0-15.0); Potassium 4.6 mEq/L (3.5-5.1)
[2024-08-08] MEDS: ASPIRIN EC 81 MG TAB PO SCH (08:39)
[2024-08-08] MEDS: METOPROLOL TAR 50 MG TAB PO SCH (09:00)
[2024-08-08] MEDS: METFORMIN HCL 500 MG TAB PO SCH (09:16)
[2024-08-08] MEDS: ISOSORBIDE MONO SR 30 MG TAB PO SCH (09:16)
[2024-08-08] MEDS: DOXAZOSIN 2 MG TAB PO SCH (09:17)
[2024-08-08] MEDS: FUROSEMIDE 40 MG TABLET PO SCH (09:19)
--- NOTE | 2024-08-08 15:15 | P.CNS ---
Date of Consult: 08/08/24 Chief Complaint: chest pain History of Present Illness: Patient with PMH of CAD PCI LAD/OM, presented with angina that happened yesterday, pressure in nature, radiated to his back, denies any other cardiac symptoms. Allergies canagliflozin [From Invokana] Adverse Reaction (Verified 03/13/23 12:36) leg infection empagliflozin [From Jardiance] Adverse Reaction (Verified 03/13/23 12:36) leg infection piperacillin [From Zosyn] Adverse Reaction (Verified 03/13/23 12:36) tachycardia,hypotension, doapheresis tazobactam [From Zosyn] Adverse Reaction (Verified 03/13/23 12:36) tachycardia,hypotension, doapheresis Home medications list reviewed: Yes Home Medications: Aspirin 81 mg PO DAILY 10/03/20 Doxazosin [Cardura*] 2 mg PO BID 10/03/20 Insulin Regular, Human [Humulin R U-500 Kwikpen] 125 unit SQ BID 10/03/20 Metformin HCl [Glucophage*] 1,000 mg PO BID 10/03/20 Metoprolol Tartrate [Lopressor*] 50 mg PO BID 10/03/20 lisinopriL [Lisinopril] 20 mg PO BID 10/03/20 Furosemide [Lasix*] 40 mg PO DAILY 11/27/22 Atorvastatin Calcium [Lipitor] 1 tab PO BEDTIME 04/11/23 Isosorbide Mononitrate [Isosorbide Mononitrate ER] 1 tab PO DAILY 04/11/23 Clopidogrel Bisulfate [Clopidogrel] 75 mg PO DAILY 05/10/24 - Past Medical/Surgical History Diabetic: Yes -: HTN -: niddm -: Hyperlipidemia -: Sleep apnea -: RLE Cellulitis -: CHF -: VT with stentsx4 -: Adenoidectomy -: Myringotomy -: lower back pain with steroid shots -: chema - Family History Mother Medical History: Hypertension, Cancer, Other (see notes) Notes: colon CA, colostomy bag Father Medical History: Hypertension, Cancer Notes: prostata CA- remission, colon CA - Social History Smoking Status: Current every day smoker Alcohol use: No CD- Drugs: No Caffeine use: Yes Place of Residence: Home Review of Systems 10-point ROS is otherwise unremarkable Physical Examination Temp Pulse Resp BP Pulse Ox 97.9 F 60 20 169/75 H 96 08/08/24 08:00 08/08/24 09:19 08/08/24 08:00 08/08/24 09:19 08/08/24 08:00 General: Alert, In no apparent distress HEENT: Atraumatic, PERRLA, Mucous membr. moist/pink, EOMI, Sclerae nonicteric Neck: Supple, 2+ carotid pulse no bruit, No LAD, Without JVD or thyroid abnormality Respiratory: Clear to auscultation bilaterally, Normal air movement Cardiovascular: Regular rate/rhythm, Normal S1 S2 Gastrointestinal: Normal bowel sounds, No tenderness Musculoskeletal: No tenderness Integumentary: No rashes Neurological: Normal gait, Normal speech, Normal tone, Normal affect Lymphatics: No axilla or inguinal lymphadenopathy - Problems (1) Chest pain Onset Date: 06/15/15 Current Visit: No Status: Inactive Plan: concern for unstable angina with history of PCI LAD and OM. NPO after midnight for coronary angiogram in am continue ASA 81 mg daily continue Plavix 75 mg daily continue lipitor
--- NOTE | 2024-08-08 20:47 | HP ---
Date of Admission: 08/07/2024 Chief Complaint: Chest pain. History Of Present Illness: This is a 59-year-old male patient with multiple comorbidities including hypertension, hyperlipidemia, morbid obesity, diabetes, coronary artery disease, was doing fine in his normal usual state of health until yesterday. While he was at work, he was walking around and all of a sudden had substernal chest pain with associated nausea and shortness of breath. With this complaint, he came to emergency room and in the emergency room, he was given 1 dose of morphine that actually helped to alleviate his pain. I was contacted requesting admission to the hospital. While he was on medical floor last night, he had another episode of substernal chest pain radiating to his back, this time with associated nausea. This morning, when I saw him, he was asymptomatic. Allergies: NO KNOWN ALLERGIES. Medications: List reviewed. Review of Systems: Cardiovascular: As mentioned above. All other systems reviewed and negative. Social History: Negative for smoking and alcohol use. Family History: Significant for colon cancer and prostate cancer. Past Surgical History: Significant for sinus surgery, coronary angioplasty with stent placement in February 2023. Past Medical History: Significant for hypertension, obstructive sleep apnea, cervical spinal stenosis, type 2 diabetes mellitus, lumbar radiculopathy, hyperlipidemia, recurrent cellulitis of lower extremities, and lymphedema of legs. Also past medical history significant for coronary artery disease. Physical Examination: Vital Signs: This morning, temperature 97.7, pulse 54, respiratory rate 18, blood pressure 174/81, oxygen saturation 97% on room air. Height 5 feet 9 inches, weight 310 pounds. General: Awake, alert, oriented, not in distress. HEENT: Head atraumatic, normocephalic. Conjunctivae nonerythematous. Sclerae white. Mouth, no thrush or edema noted. Ears/Nose, no mass, lesion, discharge noted. Neck: Supple. No JVD, lymph nodes, bruit, thyromegaly noted. Lungs: Bilateral good equal air entry. Clear to auscultation. No rhonchi. No rales. Heart: Normal heart sounds, no murmur or gallop. Abdomen: Soft, bowel sounds normal. No guarding, rigidity, tenderness, mass, hepatosplenomegaly, distention, or bruit noted. Extremities: No leg edema. No calf tenderness. Skin: No rash, ulcer, cellulitis. Lymphatics: No lymph node enlargement in neck, supraclavicular, infraclavicular region. Neuro: No focal neurological deficit. Chest: Unremarkable. External Genitalia: Deferred. Rectal: Deferred. Laboratory Data: Yesterday, WBC 6.4, hemoglobin 12.1, platelets 232. Today, WBC 6.3, hemoglobin 12, platelets 220. For chemistry yesterday, sodium 136, potassium 4.3, chloride 105, bicarb 27, BUN 13, creatinine 0.93, glucose 152. Liver function tests unremarkable. Initial troponin 6.3, second troponin 5.5, third troponin 5.1. This morning, sodium 136, potassium 4.6, chloride 103, bicarb 29, BUN 14, creatinine 0.84, glucose 165. Chest x-ray, no acute cardiopulmonary changes. Impression: 1. Unstable angina. 2. Coronary artery disease. 3. Anemia, unspecified. 4. Hypertension. 5. Type 2 diabetes mellitus. 6. Hyperlipidemia. 7. Morbid obesity. 8. Chronic diastolic heart failure. 9. Obstructive sleep apnea. 10. Cervical spinal stenosis. 11. Lumbar spinal stenosis. 12. Osteoarthritis, multiple sites. Plan: We will go ahead and admit the patient to hospital for further evaluation and management of this problem. The patient is admitted to telemetry unit. [place] has been ruled out. His symptoms are indicating angina and we have requested Cardiology consult and after tactical air control party manager evaluates him and provide his recommendation, we will decide further plan of treatment. For coronary artery disease, he is on dual anti-platelet therapy, aspirin and Plavix, which we will continue that. He did receive 1 dose of aspirin in the emergency room yesterday. The patient is also on isosorbide, which we will continue that. For hypertension, we will continue his antihypertensive medication per order, which is metoprolol, lisinopril, and doxazosin and monitor blood pressure. If necessary, make adjustment on medication. For diabetes, he takes Mounjaro injection on a weekly basis. At home, his dose is due today and I have instructed him that he should probably take his dose instead of today, he should take it tomorrow in case if he does not go home, but if he does go home today, then he will use his Mounjaro injection today. We will monitor his fingerstick blood sugar and manage diabetes with a sliding scale while in the hospital. For hyperlipidemia, we will continue his statin therapy and no need for further intervention. Anemia, unspecified, very mild. No need for further intervention. Total time spent today 80 minutes including communication with emergency room provider, review of last hospital admission visit record from 05/10/2024, review of last office visit record from 07/19/2024, review of emergency room visit record, and performing today's evaluation and management. WALT/MODL Voice ID: [id number] ANNIE
[2024-08-08] MEDS: ATORVASTATIN 80 MG TAB PO SCH (21:19)
[2024-08-09] MEDS: NA CHLORIDE 0.9% 500 ML ONE (12:16)
[2024-08-09] MEDS ORDERED: LIDOCAINE 1% 20 ML MDV ONE (13:08)
[2024-08-09] MEDS ORDERED: HEPA 1000U/500MLS 2,000 UNIT/1,000 ML BAG IV ONE (13:08)
[2024-08-09] MEDS ORDERED: HEPARIN 10,000 UNIT/10 ML VIAL IV ONE ×2 (13:08→13:41)
[2024-08-09] MEDS ORDERED: TICAGRELOR 90 MG TABLET PO ONE (13:09)
[2024-08-09] MEDS ORDERED: ATROPINE SULF 1 MG/10 ML SYR IV ONE (13:09)
[2024-08-09] MEDS ORDERED: CLOPIDOGREL 75 MG TABLET ONE (13:09)
[2024-08-09] MEDS ORDERED: MIDAZOLAM HCL 2 MG/2 ML INJ ONE (13:09)
[2024-08-09] MEDS ORDERED: ASPIRIN 325 MG TAB ONE (13:09)
[2024-08-09] MEDS ORDERED: FENTANYL CITR 100 MCG/2 ML ONE (13:10)
[2024-08-09] MEDS ORDERED: HYDRALAZINE HCL 20 MG/ML VIAL ONE (14:07)
--- NOTE | 2024-08-09 21:08 | OP ---
Date of Procedure: 08/09/2024 Surgeon: NIYAH CEDILLO Procedures Performed: 1. Selective angiogram. 2. Percutaneous coronary intervention of severe proximal left anterior descending disease, used 4.0 x 60 mm Synergy drug-eluting stent. Indication: Unstable angina. Access: Right common femoral artery 6-Guamanian, closed with 6-Guamanian Mynx closure device. Complications: None. Bleeding: Less than 50 mL. Anesthesia: Total sedation time is 1 hour, used fentanyl and Versed. Description Of Procedure: After risks, benefits, and alternatives were explained, patient agreed to procedure and signed informed consent. The patient was brought into cardiac catheterization laborato , prepped and draped in sterile fashion. Then, I accessed right common femoral artery using microp uncture kit, ultrasound guidance, and fluoroscopy. We placed 6-Guamanian [place] sheath and took 6-[place] [facility] JL4 catheter into aortic root, engaged left main, took standard views, and then exchanged for 6-F rench JR4 catheter. Engaged the RCA, took standard views, and then gave systemic heparin to assure A CT level above 250 throughout the procedure. The patient was loaded with Brilinta and baby aspirin a nd then took EBU 3.5 guide into the aortic root, engaged left main, and took Runthrough wire into the LAD placed distally and using a 4.0 balloon, a lesion was pre-dilated and expanded very well and the n I placed 4.0 x 60 mm Synergy drug-eluting stent across the stenosis to overlap with the mid LAD hernandez nt and final results were satisfactory and the wire was removed. Final angiogram was satisfactory an d then removed the guide and the sheath and 6-Guamanian Mynx closure device was used for closure with go od hemostasis. Findings: 1. Left main: Large and normal. 2. LAD: Proximal 80% stenosis right before the stent, status post successful PCI and then the mid LA D stent is widely patent with 10% to 20% ISR and there is focal 40% disease in the mid to distal LAD. Diagonal branches with luminal irregularities. 3. Left circumflex: Widely patent left circumflex stent. 4. RCA has proximal 40% to 50% stenosis. Conclusion: 1. Severe proximal LAD stenosis, status post successful PCI as above. 2. Moderate coronary artery disease elsewhere. Recommendations: Aspirin, Brilinta, high-dose statin, and careful monitoring periodically with stres s test. SR/MODL Voice ID: [id number] Report ID: [id number]
[2024-08-09] MEDS: TICAGRELOR 90 MG TABLET PO SCH (21:29)
[2024-08-09 23:31] VITALS: O2SAT 96
--- NOTE | 2024-08-10 00:43 | PN ---
Date of Progress Note: 08/09/2024 Subjective: The patient was seen this morning for followup. No new complaints or problems reported by the patient. He did have a brief episode of chest pain yesterday after I saw him. This morning when I saw him he was asymptomatic. Objective: Vital Signs: Reviewed. HEENT: Unremarkable. Lungs: Clear to auscultation. Heart: Sounds normal. Abdomen: Soft. Bowel sounds normal. No guarding, rigidity, tenderness, distention. Extremities: No leg edema. Laboratory Data: This morning, lipid profile shows triglyceride 139, total cholesterol 107, LDL 41, HDL 38. Impression: 1. Unstable angina. 2. Coronary artery disease. 3. Hypertension. 4. Hyperlipidemia. 5. Type 2 diabetes mellitus. Plan: We will go ahead and continue current medication. Continue aspirin, Plavix, atorvastatin, metoprolol. We will continue to follow with solid waste management engineer Dr. Escobar who is planning to do cardiac cath procedure today. I have instructed the patient today when I saw him at the hospital that upon discharge from the hospital, I do not want him to take metformin any longer and he verbalized understanding. I have also instructed him that if he has cardiac cath procedure done through wrist, then he should not pull, push, or carry anything heavier than 8-ounce glass of water for 1 week. I will see him tomorrow for followup. WALT/KAUR Voice ID: [id number] Report ID: [id number] ANNIE
[2024-08-10] MEDS: CLOPIDOGREL 75 MG TABLET PO ONE (08:49)
[2024-08-10 08:51] VITALS: BP 135/77; TEMP 98.7
--- NOTE | 2024-08-11 05:49 | DS ---
Date of Discharge: 08/10/2024 Disposition: Discharged to go home. Physical Examination: HEENT: Unremarkable. Lungs: Clear to auscultation. Heart: Sounds normal. Abdomen: Soft, bowel sounds normal. No guarding, rigidity, tenderness, or distention. Extremities: No leg edema. Genitourinary: Right groin exam has a small dressing present without any surrounding hematoma or any abnormal findings. This is for the cardiac cath procedure done yesterday. Hospital Course: Mr. Harvey is a 59-year-old pleasant male patient with multiple chronic comorbiditie s and prior history of coronary artery disease with stent placement in 2022, came into the emergency room with complaints of chest pain. Please see dictated H and P for more information. The patient w as evaluated in the emergency room, he was admitted to the hospital with unstable angina. His ID was ruled out by getting serial cardiac enzymes. Cardiology consultation was obtained and Dr. Luz palafox w him over the weekend and the patient had a cardiac cath done by Dr. Garcia, he did put 1 stent and after the procedure was done, he started the patient on Brilinta. When I saw him this morning, he wa s feeling fine, asymptomatic, and the patient informed me that his insurance company does not pay for Brilinta and it is very expensive, which he cannot afford it and he would like to stay on Plavix and I did communicate with Dr. Garcia this morning and he is okay with the patient taking Plavix in plac e of Brilinta, but he has suggested a loading dose of 300 mg p.o. x1 today and then starting tomorrow 75 mg daily to continue. This particular order was given to nursing staff this morning, and then mariangel winters was released to go home. The patient is already on high-dose statin therapy at home. Final Diagnoses: 1. Unstable angina. 2. Coronary artery disease. 3. Anemia, unspecified. 4. Hypertension. 5. Type 2 diabetes mellitus. 6. Hyperlipidemia. 7. Morbid obesity. 8. Chronic diastolic heart failure. 9. Obstructive sleep apnea. 10. Cervical spinal stenosis. 11. Lumbar spinal stenosis. 12. Osteoarthritis, multiple sites. Discharge Medications And Instructions: 1. Continue all prior home medications except stop metformin. 2. The patient to continue his clopidogrel, which is Plavix 75 mg daily starting tomorrow. 3. The patient may return to work as of tomorrow. 4. Follow up at my office next week. 5. Follow up with arc welding machine operator in 2-3 weeks. Laboratory Data: , . Total time spent today 45 minutes. WALT/ALBERTOL Voice ID: [id number] Report ID: [id number]
--- NOTE | 2024-08-11 12:46 | EKG ---
Test Date: 2024-08-07 Test Time: 11:18:23 Adult Education Teacher: DUSTY MEASUREMENT RESULTS: Intervals: Rate: 64 MN: 158 QRSD: 100 QT: 398 QTc: 410 [place]: P: 26 MN: 158 QRS: 85 T: 58 INTERPRETIVE STATEMENTS: Normal sinus rhythm Normal ECG Compared to ECG 05/10/2024 13:08:55 Left posterior fascicular block no longer present Myocardial infarct finding no longer present Electronically Signed On 08-11-24 12:31:54 CDT by Jamie Escobar
== END 2024-08-10 09:59 | disposition home or self-care (01) | DRG 322 ==
LOC: ER 10:58 → ERHOLD 12:38 → 2ND 13:44 → OBSVTOIN 08-08 21:21
PROVIDERS: ADMIT Internal Medicine; ATTEND Internal Medicine
PROC: 027034Z Dilation of Coronary Artery, One Artery with Drug-eluting Intraluminal Device, Percutaneous Approach (ICD-10-PCS; principal; 2024-08-09)
PROC: 4A023N7 Measurement of Cardiac Sampling and Pressure, Left Heart, Percutaneous Approach (ICD-10-PCS; 2024-08-09)
PROC: B2111ZZ Fluoroscopy of Multiple Coronary Arteries using Low Osmolar Contrast (ICD-10-PCS; 2024-08-09)
DX: I25.110 Atherosclerotic heart disease of native coronary artery with unstable angina pectoris (principal); Z68.42 Body mass index [BMI] 45.0-49.9, adult; I50.32 Chronic diastolic (congestive) heart failure; I11.0 Hypertensive heart disease with heart failure; E66.01 Morbid (severe) obesity due to excess calories; E78.5 Hyperlipidemia, unspecified; D64.9 Anemia, unspecified; E11.9 Type 2 diabetes mellitus without complications; G47.33 Obstructive sleep apnea (adult) (pediatric); M48.02 Spinal stenosis, cervical region; M48.061 Spinal stenosis, lumbar region without neurogenic claudication; M19.09 Primary osteoarthritis, other specified site; I25.2 Old myocardial infarction; F17.200 Nicotine dependence, unspecified, uncomplicated; Z88.0 Allergy status to penicillin; Z79.4 Long term (current) use of insulin; Z88.8 Allergy status to other drugs, medicaments and biological substances; Z79.82 Long term (current) use of aspirin; Z79.02 Long term (current) use of antithrombotics/antiplatelets; Z79.84 Long term (current) use of oral hypoglycemic drugs; Z90.49 Acquired absence of other specified parts of digestive tract; Z79.899 Other long term (current) drug therapy
CPT/HCPCS: 36415; 71045; 76937; 80048; 80061; 80076; 82947; 83735; 83880; 84484; 85025; 85347; 92928; 93005; 93458; 96374; 96375; 99152; 99285; C1725; C1760; C1893; G0378; J0360; J0461; J1815; J2003; J2250; J2405; J3010; J7040; Q9967

== ENCOUNTER 2025-01-05 11:51 | Observation (INO) | payer OTHER ==
--- OUTSIDE RECORDS SUMMARY | 2025-01-05 11:58 | XMS REPORT | Continuity of Care Document ---
Author Name Unknown Address [address] [place] [address] [facility] [place] Address [address] [place] [address] Care Team Providers Care Still Operator Gin Name Role Phone Hope Barraza Primary Care Physician [phone] Pcp, Patient Does Not Have A Attending Clinician Neel Garcia Attending Clinician Unavailable BERLIN_KANDICE_Kit_Latoya Attending Clinician Unavailable Ellen Pantoja Attending Clinician [phone] PAUL SLOAN Attending Clinician Unavail able Nurse, [facility]ob Immunization Attending Clinician Unavailable Paul Sloan DO Attending Clinician JAZMIN SARMIENTO Attending Clinician Unavailable CHINO HEALY Attending Clinician Unavailable Only, Adc Test Attending Clinician Unavailable Doctor Unassigned, [place] Attending Clinician Anupam Kwan MD Attending Clinician MADI FAITH Attending Clinician Unavailab TAMMY Stein Attending Clinician Unavailable Physician, No Primary or Family Admitting Clinic corinna Unavailable [email or web address] Admitting Clinician Unavailable HOPE BARRAZA Admitting Clinician Unavailable MADI FAITH Admitting Clinician Unavailab TAMMY Stein Admitting Clinician Unavailable Payers Payer Name Policy Type Policy Number Effective Date Expirati on Date Source [place] [id number] 2022 00:00:00 [employer]ET[employer] (POS) [id number] 2021 00:00:00 [place]: ANTHEM [place]UE [place]OSS (PPO) [id number] Problems Condition Name Condition Details Condition Category Status Onset Date Resolution Date Last Treatment Date Treating Clinician Comments Source Hyperglyce judy due to type 2 diabetes mellitus Hyperglyce judy Due to Type 2 Diabetes Mellitus Problem Active 09-24 00:00: 00 [facility] Mixed hyperlipid emia Mixed Hyperlipid emia Problem Active 09-14 00:00: 00 [facility] Neuropathy Neuropathy Problem Active 09-14 00:00: 00 [facility] Essential hypertensi on Essential Hypertensi on Problem Active 09-14 00:00: 00 [facility] Congestive heart failure Congestive Heart Failure Problem Active 09-14 00:00: 00 [facility] Steatosis of liver Steatosis of Liver Problem Active 09-14 00:00: 00 [facility] Type II diabetes mellitus uncontroll ed Type II Diabetes Mellitus Uncontroll ed Problem Active 09-13 00:00: 00 [facility] Cellulitis of right lower extremity Cellulitis of right lower extremity Disease Active 06-25 00:00: 00 [facility] Cellulitis of right lower leg Cellulitis of right lower leg Disease Active 2017-05 00:00: 00 [facility] Morbid obesity with body mass index of 40.0-49.9 Morbid obesity with body mass index of 40.0-49.9 Disease Active 2017-05 00:00: 00 Viet simon [facility] LUMBAR STENOSIS LUMBAR STENOSIS Active 04/08/2017 [facility] Diagnosis Active 2016-05 00:00: 00 2017-04-29 09:02:00 Chelo Sagastume M54.16 M54.16 Active 03/19/2017 [facility] Diagnosis Active 2016-05 00:00: 00 2017-03-19 10:29:00 Chelo Sagastume Abdominal pain (finding) Abdominal pain (finding) Resolved Problem 12/07/2017 [facility] Problem Resolve d 2017-12-07 00:03:51 Chelo Sagastume Chest pain (finding) Chest pain (finding) Resolved Problem 12/07/2017 [facility] Problem Resolve d 2017-12-07 00:03:51 Chelo Sagastume Chronic back pain (disorder) Chronic back pain (disorder) Resolved Problem 12/07/2017 [facility] Problem Resolve d 2017-12-07 00:03:51 Chelo Sagastume Diabetes mellitus (disorder) Diabetes mellitus (disorder) Active Problem 12/07/2017 [facility] Problem Active 2017-12-07 00:03:51 Chelo Sagastume Hyperchole sterolemia (disorder) Hyperchole sterolemia (disorder) Active Problem 12/07/2017 [facility] Problem Active 2017-12-07 00:03:51 Chelo Sagastume Hypertensi ve disorder, systemic arterial (disorder) Hypertensi ve disorder, systemic arterial (disorder) Active Problem 12/07/2017 [facility] Problem Active 2017-12-07 00:03:51 Chelo Sagastume Morbid obesity (disorder) Morbid obesity (disorder) Active Problem 12/07/2017 [facility] Problem Active 2017-12-07 00:03:51 Chelo Sagastume Prolapsed lumbar interverte bral disc (disorder) Prolapsed lumbar interverte bral disc (disorder) Active Problem 12/07/2017 [facility] Problem Active 2017-12-07 00:03:51 Chelo Sagastume Allergies, Adverse Reactions, Alerts Allergy Name Allergy Type Status Severity Reaction(s) Onset Date Inactive Date Treating Clinician Comments Source Penicill ins DA Active SV HYPOTENSION 01-23 00:00: 00 [facility] canaglif lozin DA Active MO LEG INFECTION WITH BLISTERS 01-23 00:00: 00 [facility] empaglif lon DA Active MO LEG INFECTION W/ BLISTERS 01-23 00:00: 00 [facility] No Known Allergie s DA Active U 02-01 00:00: 00 [facility] No Known Allergie s DA Active U 02-01 00:00: 00 [facility] NO KNOWN ALLERGIE S [facility] Social Habit Start Date Stop Date Quantity Comments Source [facility] Exposure to SARS-CoV-2 (event) 2020-01-03 00:00:00 2020-02-02 11:14:00 Not sure [facility] History of Social function 2018-12-03 00:00:00 2018-12-03 00:00:00 [facility] Alcohol intake 2018-07-21 00:00:00 2018-07-21 00:00:00 Current non-drinker of alcohol (finding) [facility] Alcoholic beverage intake 2018-07-21 00:00:00 2018-07-21 00:00:00 Current non-drinker of alcohol (finding) [facility] Tobacco use and exposure 2018-04-09 00:00:00 2018-04-09 00:00:00 Smokeless tobacco non-user [facility] Sex assigned at 1965 00:00:00 1965 00:00:00 [facility] Smoking Status Start Date Stop Date Source Never Smoker [facility] Social History 2017-04-29 16:58:10 2017-04-29 16:58:10 [facility] Medications Ordered Medication Name Filled Medication Name Start Date Stop Date Current Medication? Ordering Clinician Indication Dosage Frequency Signature (SIG) Comments Components Source insulin regular human 500 unit/mL injection 2018-05 00:00: 00 Yes [id number] 60U inject 60 Units under the skin 3 (three) times daily before meals. E11. 65 [facility] Insulin Syringe-Nee dle U-100 1 mL 31 gauge x 5/16 Syrg 11-25 00:00: 00 Yes Each 3 (three) times daily before meals. E11.65 [facility] Insulin Syringe-Nee dle U-100 1 mL 31 gauge x 5/16 Syrg 11-25 00:00: 00 Yes Each 3 (three) times daily before meals. E11.65 [facility] insulin U-500 syringe-nee dle 1/2 mL 31 gauge x 15/64" Syrg 10-20 00:00: 00 Yes [id number] 1{each} 1 Each 3 (three) times daily before meals. E11.65 [facility] glimepiride 4 mg tablet 10-20 00:00: 00 Yes [id number] 4mg Take 1 tablet by mouth 2 (two) times daily with meals. [facility] pravastatin 20 mg tablet 10-20 00:00: 00 Yes [id number] 20mg Take 1 tablet by mouth at bedtime. [facility] exenatide microsphere s (BYDUREON BCI) 2 mg/0.85 mL AtIn 2017-05 00:00: 00 Yes [id number] 2mg inject 2 mg under the skin weekly. [facility] amitriptyli ne 10 mg oral tablet 2016-05 14:52: 00 Yes 10 mg = 1 tab, PO, Bedtime, 4 tabs at bedtime for 1 week then 5 tabs at bedtime thereafter , # 150 tab, 2 Refill(s), Pharmacy: [facility] [id number] Chelo Sagastume Lidocaine Hydrochlori de 10 MG/ML Injectable Solution 2016-05 14:50: 00 Yes 3 mL, Route: SUB-Q, Dosing Weight 141.364, kg, ONCE, (Preservat liliana Free), Start date: 04/25/17 8:50:00 DRUMS TEACHER, Stop date: 04/25/17 8:50:00 DRUMS TEACHER Chelo Sagastume Omnipaque 300 2016-05 14:50: 00 Yes 2 mL, Route: EPIDURAL, Dosing Weight 141.364, kg, ONCE, (Preservat liliana Free), Start date: 04/25/17 8:50:00 DRUMS TEACHER, Stop date: 04/25/17 8:50:00 DRUMS TEACHER Chelo Sagastume Dexamethaso ne 2016-05 14:50: 00 Yes 8 mg, Route: EPIDURAL, ONCE, Dosing Weight 141.364, kg, (Preservat liliana Free), Start date: 04/25/17 8:50:00 DRUMS TEACHER, Stop date: 04/25/17 8:50:00 DRUMS TEACHER Chelo Sagastume Bupivacaine Hydrochlori de 2.5 MG/ML Injectable Solution 2016-05 14:50: 00 Yes 2 mL, Route: EPIDURAL, Dosing Weight 141.364, kg, ONCE, (Preservat liliana Free), Start date: 04/25/17 8:50:00 DRUMS TEACHER, Stop date: 04/25/17 8:50:00 DRUMS TEACHER Chelo Sagastume Sodium Chloride 2016-05 14:50: 00 Yes 4.2 mL, Route: EPIDURAL, Dosing Weight 141.364, kg, ONCE, (Preservat liliana Free), Start date: 04/25/17 8:50:00 DRUMS TEACHER, Stop date: 04/25/17 8:50:00 DRUMS TEACHER Chelo Sagastume cyclobenzap rine 10 mg tablet TAKE 1 TABLET BY MOUTH TWICE DAILY NEEDED cyclobenzap rine 10 mg tablet TAKE 1 TABLET BY MOUTH TWICE DAILY NEEDED No cyclobenza joaquín 10 mg tablet TAKE 1 TABLET BY MOUTH TWICE DAILY NEEDED [facility] diclofenac sodium 75 mg tablet,yanira yed release TAKE 1 TABLET BY MOUTH 2 TIMES A DAY NEEDED diclofenac sodium 75 mg tablet,yanira yed release TAKE 1 TABLET BY MOUTH 2 TIMES A DAY NEEDED No diclofenac sodium 75 mg tablet,del ayed release TAKE 1 TABLET BY MOUTH 2 TIMES A DAY NEEDED [facility] doxazosin 2 mg tablet TAKE 1 TABLET BY MOUTH TWICE A DAY doxazosin 2 mg tablet TAKE 1 TABLET BY MOUTH TWICE A DAY No doxazosin 2 mg tablet TAKE 1 TABLET BY MOUTH TWICE A DAY [facility] doxycycline monohydrate 100 mg capsule TAKE 1 CAPSULE BY MOUTH TWICE A DAY doxycycline monohydrate 100 mg capsule TAKE 1 CAPSULE BY MOUTH TWICE A DAY No doxycyclin e monohydrat e 100 mg capsule TAKE 1 CAPSULE BY MOUTH TWICE A DAY [facility] furosemide 40 mg tablet Take 1 tablet twice a day by oral route. furosemide 40 mg tablet Take 1 tablet twice a day by oral route. No 1 BID furosemide 40 mg tablet Take 1 tablet twice a day by oral route. [facility] Guaiatussin AC 10 mg-100 mg/5 mL oral liquid TAKE 10 ML BY MOUTH EVERY 4 HOURS NEEDED Guaiatussin AC 10 mg-100 mg/5 mL oral liquid TAKE 10 ML BY MOUTH EVERY 4 HOURS NEEDED No Guaiatussi n AC 10 mg-100 mg/5 mL oral liquid TAKE 10 ML BY MOUTH EVERY 4 HOURS NEEDED [facility] Humulin R U-500 (Concentrat ed) Insulin 500 unit/mL subcutaneou s soln INJECT 80 UNITS SUBCUTANEOU SLY before breakfast and inject 125 units before dinner daily total max 205 units for 90 days Humulin R U-500 (Concentrat ed) Insulin 500 unit/mL subcutaneou s soln INJECT 80 UNITS SUBCUTANEOU SLY before breakfast and inject 125 units before dinner daily total max 205 units for 90 days No Humulin R U-500 (Concentra gold) Insulin 500 unit/mL subcutaneo us soln INJECT 80 UNITS SUBCUTANEO USLY before breakfast and inject 125 units before dinner daily total max [address] [facility] hydralazine 10 mg tablet TAKE 3 TABLETS BY MOUTH TWICE A DAY hydralazine 10 mg tablet TAKE 3 TABLETS BY MOUTH TWICE A DAY No hydralazin e 10 mg tablet TAKE 3 TABLETS BY MOUTH TWICE A DAY [facility] hydralazine 50 mg tablet TAKE 1 TABLET BY MOUTH TWICE A DAY hydralazine 50 mg tablet TAKE 1 TABLET BY MOUTH TWICE A DAY No hydralazin e 50 mg tablet TAKE 1 TABLET BY MOUTH TWICE A DAY [facility] Jublia 10 % topical solution with applicator [place] [address] APPLY TO AFFECTED TOENAIL(S) BY TOPICAL ROUTE ONCE DAILY Jublia 10 % topical solution with applicator [place] [address] APPLY TO AFFECTED TOENAIL(S) BY TOPICAL ROUTE ONCE DAILY No Jublia 10 % topical solution with applicator [place] [address] APPLY TO AFFECTED TOENAIL(S) BY TOPICAL ROUTE ONCE DAILY [facility] Lagevrio 200 mg capsule (EUA) TAKE 4 CAPSULES BY MOUTH TWO TIMES A DAY Lagevrio 200 mg capsule (EUA) TAKE 4 CAPSULES BY MOUTH TWO TIMES A DAY No Lagevrio 200 mg capsule (EUA) TAKE 4 CAPSULES BY MOUTH TWO TIMES A DAY [facility] levofloxaci n 750 mg tablet TAKE 1 TABLET BY MOUTH EVERY DAY levofloxaci n 750 mg tablet TAKE 1 TABLET BY MOUTH EVERY DAY No levofloxac in 750 mg tablet TAKE 1 TABLET BY MOUTH EVERY DAY [facility] lisinopril 40 mg tablet TAKE 1 TABLET BY MOUTH EVERY DAY lisinopril 40 mg tablet TAKE 1 TABLET BY MOUTH EVERY DAY No lisinopril 40 mg tablet TAKE 1 TABLET BY MOUTH EVERY DAY [facility] metformin ER 500 mg tablet,exte nded release 24 hr Take 2 tablets twice a day by oral route with meals. metformin ER 500 mg tablet,exte nded release 24 hr Take 2 tablets twice a day by oral route with meals. No 2 BID metformin ER 500 mg tablet,ext ended release 24 hr Take 2 tablets twice a day by oral route with meals. [facility] metoprolol tartrate 50 mg tablet TAKE 1 AND 1/2 TABLET(S) (75 MG TOTAL) BY MOUTH TWO TIMES A DAY metoprolol tartrate 50 mg tablet TAKE 1 AND 1/2 TABLET(S) (75 MG TOTAL) BY MOUTH TWO TIMES A DAY No metoprolol tartrate 50 mg tablet TAKE 1 AND 1/2 TABLET(S) (75 MG TOTAL) BY MOUTH TWO TIMES A DAY [facility] naproxen 500 mg tablet TAKE 1 TABLET BY MOUTH EVERY 12 HOURS NEEDED naproxen 500 mg tablet TAKE 1 TABLET BY MOUTH EVERY 12 HOURS NEEDED No naproxen 500 mg tablet TAKE 1 TABLET BY MOUTH EVERY [address] [facility] OneTouch Delica Lancets 33 gauge USE 2 TIMES A DAY OneTouch Delica Lancets 33 gauge USE 2 TIMES A DAY No OneTouch Delica Lancets 33 gauge USE [address] [facility] OneTouch Verio test strips USE 1 STRIP 2 TIMES A DAY OneTouch Verio test strips USE 1 STRIP 2 TIMES A DAY No OneTouch Verio test strips USE 1 STRIP [address] [facility] pantoprazol e 40 mg tablet,yanira yed release TAKE 1 TABLET BY MOUTH DAILY, 30 MINUTES BEFORE BREAKFAST pantoprazol e 40 mg tablet,yanira yed release TAKE 1 TABLET BY MOUTH DAILY, 30 MINUTES BEFORE BREAKFAST No pantoprazo le 40 mg tablet,del ayed release TAKE 1 TABLET BY MOUTH DAILY, 30 MINUTES BEFORE BREAKFAST [facility] terbinafine HCl 1 % topical cream APPLY TO THE AFFECTED AND SURROUNDING AREAS OF SKIN BY TOPICAL ROUTE ONCE DAILY terbinafine HCl 1 % topical cream APPLY TO THE AFFECTED AND SURROUNDING AREAS OF SKIN BY TOPICAL ROUTE ONCE DAILY No terbinafin e HCl 1 % topical cream APPLY TO THE AFFECTED AND SURROUNDIN G AREAS OF SKIN BY TOPICAL ROUTE ONCE DAILY [facility] tramadol 50 mg tablet TAKE 1 TABLET BY MOUTH FOUR TIMES A DAY NEEDED FOR PAIN tramadol 50 mg tablet TAKE 1 TABLET BY MOUTH FOUR TIMES A DAY NEEDED FOR PAIN No tramadol 50 mg tablet TAKE 1 TABLET BY MOUTH FOUR TIMES A DAY NEEDED FOR PAIN [facility] albuterol sulfate HFA 90 mcg/actuati on aerosol inhaler TAKE 1 PUFF BY MOUTH EVERY 4 TO 6 HOURS NEEDED albuterol sulfate HFA 90 mcg/actuati on aerosol inhaler TAKE 1 PUFF BY MOUTH EVERY 4 TO 6 HOURS NEEDED No albuterol sulfate HFA 90 mcg/actuat ion aerosol inhaler TAKE 1 PUFF BY MOUTH EVERY 4 TO 6 HOURS NEEDED [facility] amlodipine 5 mg tablet TAKE 1 TABLET BY MOUTH TWICE A DAY amlodipine 5 mg tablet TAKE 1 TABLET BY MOUTH TWICE A DAY No amlodipine 5 mg tablet TAKE 1 TABLET BY MOUTH TWICE A DAY [facility] atorvastati n 80 mg tablet TAKE 1 TABLET BY MOUTH EVERYDAY AT BEDTIME atorvastati n 80 mg tablet TAKE 1 TABLET BY MOUTH EVERYDAY AT BEDTIME No atorvastat in 80 mg tablet TAKE 1 TABLET BY MOUTH EVERYDAY AT BEDTIME [facility] BD Insulin Syringe U-500 1/2 mL 31 gauge x 15/64" USE DIRECTED TWICE A DAY BD Insulin Syringe U-500 1/2 mL 31 gauge x 15/64" USE DIRECTED TWICE A DAY No BD Insulin Syringe U-500 1/2 mL 31 gauge x 15/64" USE DIRECTED TWICE A DAY [facility] ciclopirox 8 % topical solution APPLY TO THE AFFECTED AREA(S) BY TOPICAL ROUTE ONCE DAILY PREFERABLY AT BEDTIME OR 8 HOURS BEFORE WASHING ciclopirox 8 % topical solution APPLY TO THE AFFECTED AREA(S) BY TOPICAL ROUTE ONCE DAILY PREFERABLY AT BEDTIME OR 8 HOURS BEFORE WASHING No ciclopirox 8 % topical solution APPLY TO THE AFFECTED AREA(S) BY TOPICAL ROUTE ONCE DAILY PREFERABLY AT BEDTIME OR 8 HOURS BEFORE WASHING [facility] cyclobenzap rine 10 mg tablet TAKE 1 TABLET BY MOUTH TWICE DAILY NEEDED cyclobenzap rine 10 mg tablet TAKE 1 TABLET BY MOUTH TWICE DAILY NEEDED No cyclobenza joaquín 10 mg tablet TAKE 1 TABLET BY MOUTH TWICE DAILY NEEDED [facility] diclofenac sodium 75 mg tablet,yanira yed release TAKE 1 TABLET BY MOUTH 2 TIMES A DAY NEEDED diclofenac sodium 75 mg tablet,yanira yed release TAKE 1 TABLET BY MOUTH 2 TIMES A DAY NEEDED No diclofenac sodium 75 mg tablet,del ayed release TAKE 1 TABLET BY MOUTH 2 TIMES A DAY NEEDED [facility] doxazosin 2 mg tablet TAKE 1 TABLET BY MOUTH TWICE A DAY doxazosin 2 mg tablet TAKE 1 TABLET BY MOUTH TWICE A DAY No doxazosin 2 mg tablet TAKE 1 TABLET BY MOUTH TWICE A DAY [facility] doxycycline monohydrate 100 mg capsule TAKE 1 CAPSULE BY MOUTH TWICE A DAY doxycycline monohydrate 100 mg capsule TAKE 1 CAPSULE BY MOUTH TWICE A DAY No doxycyclin e monohydrat e 100 mg capsule TAKE 1 CAPSULE BY MOUTH TWICE A DAY [facility] furosemide 40 mg tablet Take 1 tablet twice a day by oral route. furosemide 40 mg tablet Take 1 tablet twice a day by oral route. No 1 BID furosemide 40 mg tablet Take 1 tablet twice a day by oral route. [facility] Guaiatussin AC 10 mg-100 mg/5 mL oral liquid TAKE 10 ML BY MOUTH EVERY 4 HOURS NEEDED Guaiatussin AC 10 mg-100 mg/5 mL oral liquid TAKE 10 ML BY MOUTH EVERY 4 HOURS NEEDED No Guaiatussi n AC 10 mg-100 mg/5 mL oral liquid TAKE 10 ML BY MOUTH EVERY 4 HOURS NEEDED [facility] Humulin R U-500 (Concentrat ed) Insulin 500 unit/mL subcutaneou s soln INJECT 80 UNITS SUBCUTANEOU SLY before breakfast and inject 125 units before dinner daily total max 205 units for 90 days Humulin R U-500 (Concentrat ed) Insulin 500 unit/mL subcutaneou s soln INJECT 80 UNITS SUBCUTANEOU SLY before breakfast and inject 125 units before dinner daily total max 205 units for 90 days No Humulin R U-500 (Concentra gold) Insulin 500 unit/mL subcutaneo us soln INJECT 80 UNITS SUBCUTANEO USLY before breakfast and inject 125 units before dinner daily total max [address] [facility] hydralazine 10 mg tablet TAKE 3 TABLETS BY MOUTH TWICE A DAY hydralazine 10 mg tablet TAKE 3 TABLETS BY MOUTH TWICE A DAY No hydralazin e 10 mg tablet TAKE 3 TABLETS BY MOUTH TWICE A DAY [facility] hydralazine 50 mg tablet TAKE 1 TABLET BY MOUTH TWICE A DAY hydralazine 50 mg tablet TAKE 1 TABLET BY MOUTH TWICE A DAY No hydralazin e 50 mg tablet TAKE 1 TABLET BY MOUTH TWICE A DAY [facility] Jublia 10 % topical [place] [address] APPLY TO AFFECTED TOENAIL(S) BY TOPICAL ROUTE ONCE DAILY Jublia 10 % topical solution [place] [address] APPLY TO AFFECTED TOENAIL(S) BY TOPICAL ROUTE ONCE DAILY No Jublia 10 % topical solution [place] [address] APPLY TO AFFECTED TOENAIL(S) BY TOPICAL ROUTE ONCE DAILY [facility] Lagevrio 200 mg capsule (EUA) TAKE 4 CAPSULES BY MOUTH TWO TIMES A DAY Lagevrio 200 mg capsule (EUA) TAKE 4 CAPSULES BY MOUTH TWO TIMES A DAY No Lagevrio 200 mg capsule (EUA) TAKE 4 CAPSULES BY MOUTH TWO TIMES A DAY [facility] levofloxaci n 750 mg tablet TAKE 1 TABLET BY MOUTH EVERY DAY levofloxaci n 750 mg tablet TAKE 1 TABLET BY MOUTH EVERY DAY No levofloxac in 750 mg tablet TAKE 1 TABLET BY MOUTH EVERY DAY [facility] lisinopril 40 mg tablet TAKE 1 TABLET BY MOUTH EVERY DAY lisinopril 40 mg tablet TAKE 1 TABLET BY MOUTH EVERY DAY No lisinopril 40 mg tablet TAKE 1 TABLET BY MOUTH EVERY DAY [facility] metformin ER 500 mg tablet,exte nded release 24 hr Take 2 tablets twice a day by oral route with meals. metformin ER 500 mg tablet,exte nded release 24 hr Take 2 tablets twice a day by oral route with meals. No 2 BID metformin ER 500 mg tablet,ext ended release 24 hr Take 2 tablets twice a day by oral route with meals. [facility] metoprolol tartrate 50 mg tablet TAKE 1 AND 1/2 TABLET(S) (75 MG TOTAL) BY MOUTH TWO TIMES A DAY metoprolol tartrate 50 mg tablet TAKE 1 AND 1/2 TABLET(S) (75 MG TOTAL) BY MOUTH TWO TIMES A DAY No metoprolol tartrate 50 mg tablet TAKE 1 AND 1/2 TABLET(S) (75 MG TOTAL) BY MOUTH TWO TIMES A DAY [facility] naproxen 500 mg tablet TAKE 1 TABLET BY MOUTH EVERY 12 HOURS NEEDED naproxen 500 mg tablet TAKE 1 TABLET BY MOUTH EVERY 12 HOURS NEEDED No naproxen 500 mg tablet TAKE 1 TABLET BY MOUTH EVERY 12 HOURS NEEDED [facility] OneTouch Delica Lancets 33 gauge USE 2 TIMES A DAY OneTouch Delica Lancets 33 gauge USE 2 TIMES A DAY No OneTouch Delica Lancets 33 gauge USE 2 TIMES A DAY [facility] OneTouch Verio test strips USE 1 STRIP 2 TIMES A DAY OneTouch Verio test strips USE 1 STRIP 2 TIMES A DAY No OneTouch Verio test strips USE 1 STRIP 2 TIMES A DAY [facility] pantoprazol e 40 mg tablet,yanira yed release TAKE 1 TABLET BY MOUTH DAILY, 30 MINUTES BEFORE BREAKFAST pantoprazol e 40 mg tablet,yanira yed release TAKE 1 TABLET BY MOUTH DAILY, 30 MINUTES BEFORE BREAKFAST No pantoprazo le 40 mg tablet,del ayed release TAKE 1 TABLET BY MOUTH DAILY, 30 MINUTES BEFORE BREAKFAST [facility] terbinafine HCl 1 % topical cream APPLY TO THE AFFECTED AND SURROUNDING AREAS OF SKIN BY TOPICAL ROUTE ONCE DAILY terbinafine HCl 1 % topical cream APPLY TO THE AFFECTED AND SURROUNDING AREAS OF SKIN BY TOPICAL ROUTE ONCE DAILY No terbinafin e HCl 1 % topical cream APPLY TO THE AFFECTED AND SURROUNDIN G AREAS OF SKIN BY TOPICAL ROUTE ONCE DAILY [facility] tramadol 50 mg tablet TAKE 1 TABLET BY MOUTH FOUR TIMES A DAY NEEDED FOR PAIN tramadol 50 mg tablet TAKE 1 TABLET BY MOUTH FOUR TIMES A DAY NEEDED FOR PAIN No tramadol 50 mg tablet TAKE 1 TABLET BY MOUTH FOUR TIMES A DAY NEEDED FOR PAIN [facility] albuterol sulfate HFA 90 mcg/actuati on aerosol inhaler TAKE 1 PUFF BY MOUTH EVERY 4 TO 6 HOURS NEEDED albuterol sulfate HFA 90 mcg/actuati on aerosol inhaler TAKE 1 PUFF BY MOUTH EVERY 4 TO 6 HOURS NEEDED No albuterol sulfate HFA 90 mcg/actuat ion aerosol inhaler TAKE 1 PUFF BY MOUTH EVERY 4 TO [address] [facility] amlodipine 5 mg tablet TAKE 1 TABLET BY MOUTH TWICE A DAY amlodipine 5 mg tablet TAKE 1 TABLET BY MOUTH TWICE A DAY No amlodipine 5 mg tablet TAKE 1 TABLET BY MOUTH TWICE A DAY [facility] atorvastati n 80 mg tablet TAKE 1 TABLET BY MOUTH EVERYDAY AT BEDTIME atorvastati n 80 mg tablet TAKE 1 TABLET BY MOUTH EVERYDAY AT BEDTIME No atorvastat in 80 mg tablet TAKE 1 TABLET BY MOUTH EVERYDAY AT BEDTIME [facility] BD Insulin Syringe U-500 1/2 mL 31 gauge x 15/64" USE DIRECTED TWICE A DAY BD Insulin Syringe U-500 1/2 mL 31 gauge x 15/64" USE DIRECTED TWICE A DAY No BD Insulin Syringe U-500 1/2 mL 31 gauge x 15/64" USE DIRECTED TWICE A DAY [facility] ciclopirox 8 % topical solution APPLY TO THE AFFECTED AREA(S) BY TOPICAL ROUTE ONCE DAILY PREFERABLY AT BEDTIME OR 8 HOURS BEFORE WASHING ciclopirox 8 % topical solution APPLY TO THE AFFECTED AREA(S) BY TOPICAL ROUTE ONCE DAILY PREFERABLY AT BEDTIME OR 8 HOURS BEFORE WASHING No ciclopirox 8 % topical solution APPLY TO THE AFFECTED AREA(S) BY TOPICAL ROUTE ONCE DAILY PREFERABLY AT BEDTIME OR [address] [facility] cyclobenzap rine 10 mg tablet TAKE 1 TABLET BY MOUTH TWICE DAILY NEEDED cyclobenzap rine 10 mg tablet TAKE 1 TABLET BY MOUTH TWICE DAILY NEEDED No cyclobenza joaquín 10 mg tablet TAKE 1 TABLET BY MOUTH TWICE DAILY NEEDED [facility] diclofenac sodium 75 mg tablet,yanira yed release TAKE 1 TABLET BY MOUTH 2 TIMES A DAY NEEDED diclofenac sodium 75 mg tablet,yanira yed release TAKE 1 TABLET BY MOUTH 2 TIMES A DAY NEEDED No diclofenac sodium 75 mg tablet,del ayed release TAKE 1 TABLET BY MOUTH 2 TIMES A DAY NEEDED [facility] doxazosin 2 mg tablet TAKE 1 TABLET BY MOUTH TWICE A DAY doxazosin 2 mg tablet TAKE 1 TABLET BY MOUTH TWICE A DAY No doxazosin 2 mg tablet TAKE 1 TABLET BY MOUTH TWICE A DAY [facility] doxycycline monohydrate 100 mg capsule TAKE 1 CAPSULE BY MOUTH TWICE A DAY doxycycline monohydrate 100 mg capsule TAKE 1 CAPSULE BY MOUTH TWICE A DAY No doxycyclin e monohydrat e 100 mg capsule TAKE 1 CAPSULE BY MOUTH TWICE A DAY [facility] furosemide 40 mg tablet Take 1 tablet twice a day by oral route. furosemide 40 mg tablet Take 1 tablet twice a day by oral route. No 1 BID furosemide 40 mg tablet Take 1 tablet twice a day by oral route. [facility] Guaiatussin AC 10 mg-100 mg/5 mL oral liquid TAKE 10 ML BY MOUTH EVERY 4 HOURS NEEDED Guaiatussin AC 10 mg-100 mg/5 mL oral liquid TAKE 10 ML BY MOUTH EVERY 4 HOURS NEEDED No Guaiatussi n AC 10 mg-100 mg/5 mL oral liquid TAKE 10 ML BY MOUTH EVERY 4 HOURS NEEDED [facility] Humulin R U-500 (Concentrat ed) Insulin 500 unit/mL subcutaneou s soln INJECT 80 UNITS SUBCUTANEOU SLY before breakfast and inject 125 units before dinner daily total max 205 units for 90 days Humulin R U-500 (Concentrat ed) Insulin 500 unit/mL subcutaneou s soln INJECT 80 UNITS SUBCUTANEOU SLY before breakfast and inject 125 units before dinner daily total max 205 units for 90 days No Humulin R U-500 (Concentra gold) Insulin 500 unit/mL subcutaneo us soln INJECT 80 UNITS SUBCUTANEO USLY before breakfast and inject 125 units before dinner daily total max [address] units for [address] [facility] hydralazine 10 mg tablet TAKE 3 TABLETS BY MOUTH TWICE A DAY hydralazine 10 mg tablet TAKE 3 TABLETS BY MOUTH TWICE A DAY No hydralazin e 10 mg tablet TAKE 3 TABLETS BY MOUTH TWICE A DAY [facility] hydralazine 50 mg tablet TAKE 1 TABLET BY MOUTH TWICE A DAY hydralazine 50 mg tablet TAKE 1 TABLET BY MOUTH TWICE A DAY No hydralazin e 50 mg tablet TAKE 1 TABLET BY MOUTH TWICE A DAY [facility] Jublia 10 % topical solution with applicator [place] [address] APPLY TO AFFECTED TOENAIL(S) BY TOPICAL ROUTE ONCE DAILY Jublia 10 % topical solution with applicator [place] [address] APPLY TO AFFECTED TOENAIL(S) BY TOPICAL ROUTE ONCE DAILY No Jublia 10 % topical solution with applicator [place] [address] APPLY TO AFFECTED TOENAIL(S) BY TOPICAL ROUTE ONCE DAILY [facility] Lagevrio 200 mg capsule (EUA) TAKE 4 CAPSULES BY MOUTH TWO TIMES A DAY Lagevrio 200 mg capsule (EUA) TAKE 4 CAPSULES BY MOUTH TWO TIMES A DAY No Lagevrio 200 mg capsule (EUA) TAKE 4 CAPSULES BY MOUTH TWO TIMES A DAY [facility] levofloxaci n 750 mg tablet TAKE 1 TABLET BY MOUTH EVERY DAY levofloxaci n 750 mg tablet TAKE 1 TABLET BY MOUTH EVERY DAY No levofloxac in 750 mg tablet TAKE 1 TABLET BY MOUTH EVERY DAY [facility] lisinopril 40 mg tablet TAKE 1 TABLET BY MOUTH EVERY DAY lisinopril 40 mg tablet TAKE 1 TABLET BY MOUTH EVERY DAY No lisinopril 40 mg tablet TAKE 1 TABLET BY MOUTH EVERY DAY [facility] metformin ER 500 mg tablet,exte nded release 24 hr Take 2 tablets twice a day by oral route with meals. metformin ER 500 mg tablet,exte nded release 24 hr Take 2 tablets twice a day by oral route with meals. No 2 BID metformin ER 500 mg tablet,ext ended release 24 hr Take 2 tablets twice a day by oral route with meals. [facility] metoprolol tartrate 50 mg tablet TAKE 1 AND 1/2 TABLET(S) (75 MG TOTAL) BY MOUTH TWO TIMES A DAY metoprolol tartrate 50 mg tablet TAKE 1 AND 1/2 TABLET(S) (75 MG TOTAL) BY MOUTH TWO TIMES A DAY No metoprolol tartrate 50 mg tablet TAKE 1 AND 1/2 TABLET(S) (75 MG TOTAL) BY MOUTH TWO TIMES A DAY [facility] naproxen 500 mg tablet TAKE 1 TABLET BY MOUTH EVERY 12 HOURS NEEDED naproxen 500 mg tablet TAKE 1 TABLET BY MOUTH EVERY 12 HOURS NEEDED No naproxen 500 mg tablet TAKE 1 TABLET BY MOUTH EVERY [address] [facility] OneTouch Delica Lancets 33 gauge USE 2 TIMES A DAY OneTouch Delica Lancets 33 gauge USE 2 TIMES A DAY No OneTouch Delica Lancets 33 gauge USE [address] [facility] OneTouch Verio test strips USE 1 STRIP 2 TIMES A DAY OneTouch Verio test strips USE 1 STRIP 2 TIMES A DAY No OneTouch Verio test strips USE 1 STRIP [address] [facility] pantoprazol e 40 mg tablet,yanira yed release TAKE 1 TABLET BY MOUTH DAILY, 30 MINUTES BEFORE BREAKFAST pantoprazol e 40 mg tablet,yanira yed release TAKE 1 TABLET BY MOUTH DAILY, 30 MINUTES BEFORE BREAKFAST No pantoprazo le 40 mg tablet,del ayed release TAKE 1 TABLET BY MOUTH DAILY, 30 MINUTES BEFORE BREAKFAST [facility] terbinafine HCl 1 % topical cream APPLY TO THE AFFECTED AND SURROUNDING AREAS OF SKIN BY TOPICAL ROUTE ONCE DAILY terbinafine HCl 1 % topical cream APPLY TO THE AFFECTED AND SURROUNDING AREAS OF SKIN BY TOPICAL ROUTE ONCE DAILY No terbinafin e HCl 1 % topical cream APPLY TO THE AFFECTED AND SURROUNDIN G AREAS OF SKIN BY TOPICAL ROUTE ONCE DAILY [facility] tramadol 50 mg tablet TAKE 1 TABLET BY MOUTH FOUR TIMES A DAY NEEDED FOR PAIN tramadol 50 mg tablet TAKE 1 TABLET BY MOUTH FOUR TIMES A DAY NEEDED FOR PAIN No tramadol 50 mg tablet TAKE 1 TABLET BY MOUTH FOUR TIMES A DAY NEEDED FOR PAIN [facility] albuterol sulfate HFA 90 mcg/actuati on aerosol inhaler TAKE 1 PUFF BY MOUTH EVERY 4 TO 6 HOURS NEEDED albuterol sulfate HFA 90 mcg/actuati on aerosol inhaler TAKE 1 PUFF BY MOUTH EVERY 4 TO 6 HOURS NEEDED No albuterol sulfate HFA 90 mcg/actuat ion aerosol inhaler TAKE 1 PUFF BY MOUTH EVERY 4 TO 6 HOURS NEEDED [facility] amlodipine 5 mg tablet TAKE 1 TABLET BY MOUTH TWICE A DAY amlodipine 5 mg tablet TAKE 1 TABLET BY MOUTH TWICE A DAY No amlodipine 5 mg tablet TAKE 1 TABLET BY MOUTH TWICE A DAY [facility] atorvastati n 80 mg tablet TAKE 1 TABLET BY MOUTH EVERYDAY AT BEDTIME atorvastati n 80 mg tablet TAKE 1 TABLET BY MOUTH EVERYDAY AT BEDTIME No atorvastat in 80 mg tablet TAKE 1 TABLET BY MOUTH EVERYDAY AT BEDTIME [facility] BD Insulin Syringe U-500 1/2 mL 31 gauge x 15/64" USE DIRECTED TWICE A DAY BD Insulin Syringe U-500 1/2 mL 31 gauge x 15/64" USE DIRECTED TWICE A DAY No BD Insulin Syringe U-500 1/2 mL 31 gauge x 15/64" USE DIRECTED TWICE A DAY [facility] ciclopirox 8 % topical solution APPLY TO THE AFFECTED AREA(S) BY TOPICAL ROUTE ONCE DAILY PREFERABLY AT BEDTIME OR 8 HOURS BEFORE WASHING ciclopirox 8 % topical solution APPLY TO THE AFFECTED AREA(S) BY TOPICAL ROUTE ONCE DAILY PREFERABLY AT BEDTIME OR 8 HOURS BEFORE WASHING No ciclopirox 8 % topical solution APPLY TO THE AFFECTED AREA(S) BY TOPICAL ROUTE ONCE DAILY PREFERABLY AT BEDTIME OR 8 HOURS BEFORE WASHING [facility] cyclobenzap rine 10 mg tablet TAKE 1 TABLET BY MOUTH TWICE DAILY NEEDED cyclobenzap rine 10 mg tablet TAKE 1 TABLET BY MOUTH TWICE DAILY NEEDED No cyclobenza joaquín 10 mg tablet TAKE 1 TABLET BY MOUTH TWICE DAILY NEEDED [facility] diclofenac sodium 75 mg tablet,yanira yed release TAKE 1 TABLET BY MOUTH 2 TIMES A DAY NEEDED diclofenac sodium 75 mg tablet,yanira yed release TAKE 1 TABLET BY MOUTH 2 TIMES A DAY NEEDED No diclofenac sodium 75 mg tablet,del ayed release TAKE 1 TABLET BY MOUTH 2 TIMES A DAY NEEDED [facility] doxazosin 2 mg tablet TAKE 1 TABLET BY MOUTH TWICE A DAY doxazosin 2 mg tablet TAKE 1 TABLET BY MOUTH TWICE A DAY No doxazosin 2 mg tablet TAKE 1 TABLET BY MOUTH TWICE A DAY [facility] doxycycline monohydrate 100 mg capsule TAKE 1 CAPSULE BY MOUTH TWICE A DAY doxycycline monohydrate 100 mg capsule TAKE 1 CAPSULE BY MOUTH TWICE A DAY No doxycyclin e monohydrat e 100 mg capsule TAKE 1 CAPSULE BY MOUTH TWICE A DAY [facility] furosemide 40 mg tablet Take 1 tablet twice a day by oral route. furosemide 40 mg tablet Take 1 tablet twice a day by oral route. No 1 BID furosemide 40 mg tablet Take 1 tablet twice a day by oral route. [facility] Guaiatussin AC 10 mg-100 mg/5 mL oral liquid TAKE 10 ML BY MOUTH EVERY 4 HOURS NEEDED Guaiatussin AC 10 mg-100 mg/5 mL oral liquid TAKE 10 ML BY MOUTH EVERY 4 HOURS NEEDED No Guaiatussi n AC 10 mg-100 mg/5 mL oral liquid TAKE 10 ML BY MOUTH EVERY 4 HOURS [facility]ED [facility] Humulin R U-500 (Concentrat ed) Insulin 500 unit/mL subcutaneou s soln INJECT 80 UNITS SUBCUTANEOU SLY before breakfast and inject 125 units before dinner daily total max 330 units for 30 days Humulin R U-500 (Concentrat ed) Insulin 500 unit/mL subcutaneou s soln INJECT 80 UNITS SUBCUTANEOU SLY before breakfast and inject 125 units before dinner daily total max 330 units for 30 days No Humulin R U-500 (Concentra gold) Insulin 500 unit/mL subcutaneo us soln INJECT 80 UNITS SUBCUTANEO USLY before breakfast and inject 125 units before dinner daily total max 330 units for 30 days [facility] hydralazine 10 mg tablet TAKE 3 TABLETS BY MOUTH TWICE A DAY hydralazine 10 mg tablet TAKE 3 TABLETS BY MOUTH TWICE A DAY No hydralazin e 10 mg tablet TAKE 3 TABLETS BY MOUTH TWICE A DAY [facility] hydralazine 50 mg tablet TAKE 1 TABLET BY MOUTH TWICE A DAY hydralazine 50 mg tablet TAKE 1 TABLET BY MOUTH TWICE A DAY No hydralazin e 50 mg tablet TAKE 1 TABLET BY MOUTH TWICE A DAY [facility] Jublia 10 % topical solution with applicator [place] [address] APPLY TO AFFECTED TOENAIL(S) BY TOPICAL ROUTE ONCE DAILY Jublia 10 % topical solution with applicator [place] [address] APPLY TO AFFECTED TOENAIL(S) BY TOPICAL ROUTE ONCE DAILY No Jublia 10 % topical solution with applicator [place] [address] APPLY TO AFFECTED TOENAIL(S) BY TOPICAL ROUTE ONCE DAILY [facility] Lagevrio 200 mg capsule (EUA) TAKE 4 CAPSULES BY MOUTH TWO TIMES A DAY Lagevrio 200 mg capsule (EUA) TAKE 4 CAPSULES BY MOUTH TWO TIMES A DAY No Lagevrio 200 mg capsule (EUA) TAKE 4 CAPSULES BY MOUTH TWO TIMES A DAY [facility] levofloxaci n 750 mg tablet TAKE 1 TABLET BY MOUTH EVERY DAY levofloxaci n 750 mg tablet TAKE 1 TABLET BY MOUTH EVERY DAY No levofloxac in 750 mg tablet TAKE 1 TABLET BY MOUTH EVERY DAY [facility] lisinopril 40 mg tablet TAKE 1 TABLET BY MOUTH EVERY DAY lisinopril 40 mg tablet TAKE 1 TABLET BY MOUTH EVERY DAY No lisinopril 40 mg tablet TAKE 1 TABLET BY MOUTH EVERY DAY [facility] metformin ER 500 mg tablet,exte nded release 24 hr Take 2 tablets twice a day by oral route with meals for 90 days. metformin ER 500 mg tablet,exte nded release 24 hr Take 2 tablets twice a day by oral route with meals for 90 days. No 2 BID metformin ER 500 mg tablet,ext ended release 24 hr Take 2 tablets twice a day by oral route with meals for [address] [facility] metoprolol tartrate 50 mg tablet TAKE 1 AND 1/2 TABLET(S) (75 MG TOTAL) BY MOUTH TWO TIMES A DAY metoprolol tartrate 50 mg tablet TAKE 1 AND 1/2 TABLET(S) (75 MG TOTAL) BY MOUTH TWO TIMES A DAY No metoprolol tartrate 50 mg tablet TAKE 1 AND 1/2 TABLET(S) (75 MG TOTAL) BY MOUTH TWO TIMES A DAY [facility] naproxen 500 mg tablet TAKE 1 TABLET BY MOUTH EVERY 12 HOURS NEEDED naproxen 500 mg tablet TAKE 1 TABLET BY MOUTH EVERY 12 HOURS NEEDED No naproxen 500 mg tablet TAKE 1 TABLET BY MOUTH EVERY 12 HOURS NEEDED [facility] OneTouch Delica Lancets 33 gauge USE 2 TIMES A DAY OneTouch Delica Lancets 33 gauge USE 2 TIMES A DAY No OneTouch Delica Lancets 33 gauge USE 2 TIMES A DAY [facility] OneTouch Verio test strips USE 1 STRIP 2 TIMES A DAY OneTouch Verio test strips USE 1 STRIP 2 TIMES A DAY No OneTouch Verio test strips USE 1 STRIP 2 TIMES A DAY [facility] pantoprazol e 40 mg tablet,yanira yed release TAKE 1 TABLET BY MOUTH DAILY, 30 MINUTES BEFORE BREAKFAST pantoprazol e 40 mg tablet,yanira yed release TAKE 1 TABLET BY MOUTH DAILY, 30 MINUTES BEFORE BREAKFAST No pantoprazo le 40 mg tablet,del ayed release TAKE 1 TABLET BY MOUTH DAILY, 30 MINUTES BEFORE BREAKFAST [facility] terbinafine HCl 1 % topical cream APPLY TO THE AFFECTED AND SURROUNDING AREAS OF SKIN BY TOPICAL ROUTE ONCE DAILY terbinafine HCl 1 % topical cream APPLY TO THE AFFECTED AND SURROUNDING AREAS OF SKIN BY TOPICAL ROUTE ONCE DAILY No terbinafin e HCl 1 % topical cream APPLY TO THE AFFECTED AND SURROUNDIN G AREAS OF SKIN BY TOPICAL ROUTE ONCE DAILY [facility] tramadol 50 mg tablet TAKE 1 TABLET BY MOUTH FOUR TIMES A DAY NEEDED FOR PAIN tramadol 50 mg tablet TAKE 1 TABLET BY MOUTH FOUR TIMES A DAY NEEDED FOR PAIN No tramadol 50 mg tablet TAKE 1 TABLET BY MOUTH FOUR TIMES A DAY NEEDED FOR PAIN [facility] albuterol sulfate HFA 90 mcg/actuati on aerosol inhaler TAKE 1 PUFF BY MOUTH EVERY 4 TO 6 HOURS NEEDED albuterol sulfate HFA 90 mcg/actuati on aerosol inhaler TAKE 1 PUFF BY MOUTH EVERY 4 TO 6 HOURS NEEDED No albuterol sulfate HFA 90 mcg/actuat ion aerosol inhaler TAKE 1 PUFF BY MOUTH EVERY 4 TO 6 HOURS NEEDED [facility] amlodipine 5 mg tablet TAKE 1 TABLET BY MOUTH TWICE A DAY amlodipine 5 mg tablet TAKE 1 TABLET BY MOUTH TWICE A DAY No amlodipine 5 mg tablet TAKE 1 TABLET BY MOUTH TWICE A DAY [facility] atorvastati n 80 mg tablet TAKE 1 TABLET BY MOUTH EVERYDAY AT BEDTIME atorvastati n 80 mg tablet TAKE 1 TABLET BY MOUTH EVERYDAY AT BEDTIME No atorvastat in 80 mg tablet TAKE 1 TABLET BY MOUTH EVERYDAY AT BEDTIME [facility] BD Insulin Syringe U-500 1/2 mL 31 gauge x 15/64" USE DIRECTED TWICE A DAY BD Insulin Syringe U-500 1/2 mL 31 gauge x 15/64" USE DIRECTED TWICE A DAY No BD Insulin Syringe U-500 1/2 mL 31 gauge x 15/64" USE DIRECTED TWICE A DAY [facility] ciclopirox 8 % topical solution APPLY TO THE AFFECTED AREA(S) BY TOPICAL ROUTE ONCE DAILY PREFERABLY AT BEDTIME OR 8 HOURS BEFORE WASHING ciclopirox 8 % topical solution APPLY TO THE AFFECTED AREA(S) BY TOPICAL ROUTE ONCE DAILY PREFERABLY AT BEDTIME OR 8 HOURS BEFORE WASHING No ciclopirox 8 % topical solution APPLY TO THE AFFECTED AREA(S) BY TOPICAL ROUTE ONCE DAILY PREFERABLY AT BEDTIME OR [address] [facility] cyclobenzap rine 10 mg tablet TAKE 1 TABLET BY MOUTH TWICE DAILY NEEDED cyclobenzap rine 10 mg tablet TAKE 1 TABLET BY MOUTH TWICE DAILY NEEDED No cyclobenza joaquín 10 mg tablet TAKE 1 TABLET BY MOUTH TWICE DAILY NEEDED [facility] diclofenac sodium 75 mg tablet,yanira yed release TAKE 1 TABLET BY MOUTH 2 TIMES A DAY NEEDED diclofenac sodium 75 mg tablet,yanira yed release TAKE 1 TABLET BY MOUTH 2 TIMES A DAY NEEDED No diclofenac sodium 75 mg tablet,del ayed release TAKE 1 TABLET BY MOUTH 2 TIMES A DAY NEEDED [facility] doxazosin 2 mg tablet TAKE 1 TABLET BY MOUTH TWICE A DAY doxazosin 2 mg tablet TAKE 1 TABLET BY MOUTH TWICE A DAY No doxazosin 2 mg tablet TAKE 1 TABLET BY MOUTH TWICE A DAY [facility] doxycycline monohydrate 100 mg capsule TAKE 1 CAPSULE BY MOUTH TWICE A DAY doxycycline monohydrate 100 mg capsule TAKE 1 CAPSULE BY MOUTH TWICE A DAY No doxycyclin e monohydrat e 100 mg capsule TAKE 1 CAPSULE BY MOUTH TWICE A DAY [facility] furosemide 40 mg tablet Take 1 tablet twice a day by oral route. furosemide 40 mg tablet Take 1 tablet twice a day by oral route. No 1 BID furosemide 40 mg tablet Take 1 tablet twice a day by oral route. [facility] Guaiatussin AC 10 mg-100 mg/5 mL oral liquid TAKE 10 ML BY MOUTH EVERY 4 HOURS NEEDED Guaiatussin AC 10 mg-100 mg/5 mL oral liquid TAKE 10 ML BY MOUTH EVERY 4 HOURS NEEDED No Guaiatussi n AC 10 mg-100 mg/5 mL oral liquid TAKE 10 ML BY MOUTH EVERY 4 HOURS NEEDED [facility] Humulin R U-500 (Concentrat ed) Insulin 500 unit/mL subcutaneou s soln INJECT 80 UNITS SUBCUTANEOU SLY before breakfast and inject 125 units before dinner daily total max 330 units for 30 days Humulin R U-500 (Concentrat ed) Insulin 500 unit/mL subcutaneou s soln INJECT 80 UNITS SUBCUTANEOU SLY before breakfast and inject 125 units before dinner daily total max 330 units for 30 days No Humulin R U-500 (Concentra gold) Insulin 500 unit/mL subcutaneo us soln INJECT 80 UNITS SUBCUTANEO USLY before breakfast and inject 125 units before dinner daily total max [address] units for [address] [facility] hydralazine 10 mg tablet TAKE 3 TABLETS BY MOUTH TWICE A DAY hydralazine 10 mg tablet TAKE 3 TABLETS BY MOUTH TWICE A DAY No hydralazin e 10 mg tablet TAKE 3 TABLETS BY MOUTH TWICE A DAY [facility] hydralazine 50 mg tablet TAKE 1 TABLET BY MOUTH TWICE A DAY hydralazine 50 mg tablet TAKE 1 TABLET BY MOUTH TWICE A DAY No hydralazin e 50 mg tablet TAKE 1 TABLET BY MOUTH TWICE A DAY [facility] Jublia 10 % [place] [id number] APPLY TO AFFECTED TOENAIL(S) BY TOPICAL ROUTE ONCE DAILY Jublia 10 % [place] [id number] APPLY TO AFFECTED TOENAIL(S) BY TOPICAL ROUTE ONCE DAILY No Jublia 10 % topical [place] [id number] APPLY TO AFFECTED TOENAIL(S) BY TOPICAL ROUTE ONCE DAILY [facility] Lagevrio 200 mg capsule (EUA) TAKE 4 CAPSULES BY MOUTH TWO TIMES A DAY Lagevrio 200 mg capsule (EUA) TAKE 4 CAPSULES BY MOUTH TWO TIMES A DAY No Lagevrio 200 mg capsule (EUA) TAKE 4 CAPSULES BY MOUTH TWO TIMES A DAY [facility] levofloxaci n 750 mg tablet TAKE 1 TABLET BY MOUTH EVERY DAY levofloxaci n 750 mg tablet TAKE 1 TABLET BY MOUTH EVERY DAY No levofloxac in 750 mg tablet TAKE 1 TABLET BY MOUTH EVERY DAY [facility] lisinopril 40 mg tablet TAKE 1 TABLET BY MOUTH EVERY DAY lisinopril 40 mg tablet TAKE 1 TABLET BY MOUTH EVERY DAY No lisinopril 40 mg tablet TAKE 1 TABLET BY MOUTH EVERY DAY [facility] metformin ER 500 mg tablet,exte nded release 24 hr Take 2 tablets twice a day by oral route with meals for 90 days. metformin ER 500 mg tablet,exte nded release 24 hr Take 2 tablets twice a day by oral route with meals for 90 days. No 2 BID metformin ER 500 mg tablet,ext ended release 24 hr Take 2 tablets twice a day by oral route with meals for [address] [facility] metoprolol tartrate 50 mg tablet TAKE 1 AND 1/2 TABLET(S) (75 MG TOTAL) BY MOUTH TWO TIMES A DAY metoprolol tartrate 50 mg tablet TAKE 1 AND 1/2 TABLET(S) (75 MG TOTAL) BY MOUTH TWO TIMES A DAY No metoprolol tartrate 50 mg tablet TAKE 1 AND 1/2 TABLET(S) (75 MG TOTAL) BY MOUTH TWO TIMES A DAY [facility] naproxen 500 mg tablet TAKE 1 TABLET BY MOUTH EVERY 12 HOURS NEEDED naproxen 500 mg tablet TAKE 1 TABLET BY MOUTH EVERY 12 HOURS NEEDED No naproxen 500 mg tablet TAKE 1 TABLET BY MOUTH EVERY [address] [facility] OneTouch Delica Lancets 33 gauge USE 2 TIMES A DAY OneTouch Delica Lancets 33 gauge USE 2 TIMES A DAY No OneTouch Delica Lancets 33 gauge USE [address] [facility] OneTouch Verio test strips USE 1 STRIP 2 TIMES A DAY OneTouch Verio test strips USE 1 STRIP 2 TIMES A DAY No OneTouch Verio test strips USE 1 STRIP [address] [facility] pantoprazol e 40 mg tablet,yanira yed release TAKE 1 TABLET BY MOUTH DAILY, 30 MINUTES BEFORE BREAKFAST pantoprazol e 40 mg tablet,yanira yed release TAKE 1 TABLET BY MOUTH DAILY, 30 MINUTES BEFORE BREAKFAST No pantoprazo le 40 mg tablet,del ayed release TAKE 1 TABLET BY MOUTH DAILY, [address] [facility] terbinafine HCl 1 % topical cream APPLY TO THE AFFECTED AND SURROUNDING AREAS OF SKIN BY TOPICAL ROUTE ONCE DAILY terbinafine HCl 1 % topical cream APPLY TO THE AFFECTED AND SURROUNDING AREAS OF SKIN BY TOPICAL ROUTE ONCE DAILY No terbinafin e HCl 1 % topical cream APPLY TO THE AFFECTED AND SURROUNDIN G AREAS OF SKIN BY TOPICAL ROUTE ONCE DAILY [facility] tramadol 50 mg tablet TAKE 1 TABLET BY MOUTH FOUR TIMES A DAY NEEDED FOR PAIN tramadol 50 mg tablet TAKE 1 TABLET BY MOUTH FOUR TIMES A DAY NEEDED FOR PAIN No tramadol 50 mg tablet TAKE 1 TABLET BY MOUTH FOUR TIMES A DAY NEEDED FOR PAIN [facility] acetaminoph en 300 mg-codeine 30 mg tablet TAKE 1 TABLET BY MOUTH EVERY 4 HOURS NEEDED FOR PAIN acetaminoph en 300 mg-codeine 30 mg tablet TAKE 1 TABLET BY MOUTH EVERY 4 HOURS NEEDED FOR PAIN No acetaminop hen 300 mg-codeine 30 mg tablet TAKE 1 TABLET BY MOUTH EVERY 4 HOURS NEEDED FOR PAIN [facility] amlodipine 5 mg tablet TAKE 1 TABLET BY MOUTH TWICE A DAY amlodipine 5 mg tablet TAKE 1 TABLET BY MOUTH TWICE A DAY No amlodipine 5 mg tablet TAKE 1 TABLET BY MOUTH TWICE A DAY [facility] BD Insulin Syringe U-500 1/2 mL 31 gauge x 15/64" USE DIRECTED 3 TIMES A DAY BD Insulin Syringe U-500 1/2 mL 31 gauge x 15/64" USE DIRECTED 3 TIMES A DAY No BD Insulin Syringe U-500 1/2 mL 31 gauge x 15/64" USE DIRECTED [address] [facility] diclofenac sodium 75 mg tablet,yanira yed release TAKE 1 TABLET BY MOUTH TWICE A DAY diclofenac sodium 75 mg tablet,yanira yed release TAKE 1 TABLET BY MOUTH TWICE A DAY No diclofenac sodium 75 mg tablet,del ayed release TAKE 1 TABLET BY MOUTH TWICE A DAY [facility] doxazosin 2 mg tablet doxazosin 2 mg tablet No doxazosin 2 mg tablet [facility] furosemide 40 mg tablet Take 1 tablet twice a day by oral route. furosemide 40 mg tablet Take 1 tablet twice a day by oral route. No 1 BID furosemide 40 mg tablet Take 1 tablet twice a day by oral route. [facility] Humulin 70/30 U-100 Insulin 120 THREE TIMES A DAY Humulin 70/30 U-100 Insulin 120 THREE TIMES A DAY No Humulin 70/30 U-100 Insulin 120 [address] [facility] Humulin 70/30 U-100 Insulin 100 unit/mL subcutaneou s suspension 120 units SQ BID Humulin 70/30 U-100 Insulin 100 unit/mL subcutaneou s suspension 120 units SQ BID No Humulin 70/30 U-100 Insulin 100 unit/mL subcutaneo us suspension [address] [facility] hydralazine 10 mg tablet TAKE 1 TABLET BY MOUTH TWICE A DAY hydralazine 10 mg tablet TAKE 1 TABLET BY MOUTH TWICE A DAY No hydralazin e 10 mg tablet TAKE 1 TABLET BY MOUTH TWICE A DAY [facility] hydrochloro thiazide 25 mg tablet TAKE 1 TABLET BY MOUTH ONCE hydrochloro thiazide 25 mg tablet TAKE 1 TABLET BY MOUTH ONCE No hydrochlor othiazide 25 mg tablet TAKE 1 TABLET BY MOUTH ONCE [facility] lisinopril 40 mg tablet TAKE 1 TABLET BY MOUTH EVERY DAY lisinopril 40 mg tablet TAKE 1 TABLET BY MOUTH EVERY DAY No lisinopril 40 mg tablet TAKE 1 TABLET BY MOUTH EVERY DAY [facility] metformin ER 500 mg tablet,exte nded release 24 hr TAKE 2 TABLETS BY MOUTH TWICE DAILY AFTER BREAKFAST AND DINNER metformin ER 500 mg tablet,exte nded release 24 hr TAKE 2 TABLETS BY MOUTH TWICE DAILY AFTER BREAKFAST AND DINNER No metformin ER 500 mg tablet,ext ended release 24 hr TAKE 2 TABLETS BY MOUTH TWICE DAILY AFTER BREAKFAST AND DINNER [facility] metoprolol tartrate 50 mg tablet TAKE 1 AND 1/2 TABLETS BY MOUTH TWICE A DAY metoprolol tartrate 50 mg tablet TAKE 1 AND 1/2 TABLETS BY MOUTH TWICE A DAY No metoprolol tartrate 50 mg tablet TAKE 1 AND 1/2 TABLETS BY MOUTH TWICE A DAY [facility] pravastatin 20 mg tablet Take 1 tablet every day by oral route. pravastatin 20 mg tablet Take 1 tablet every day by oral route. No 1 Q1D pravastati n 20 mg tablet Take 1 tablet every day by oral route. [facility] atorvastati n 80 mg tablet TAKE 1 TABLET BY MOUTH EVERYDAY AT BEDTIME atorvastati n 80 mg tablet TAKE 1 TABLET BY MOUTH EVERYDAY AT BEDTIME No atorvastat in 80 mg tablet TAKE 1 TABLET BY MOUTH EVERYDAY AT BEDTIME [facility] doxycycline monohydrate 100 mg capsule TAKE 1 CAPSULE BY MOUTH TWICE A DAY doxycycline monohydrate 100 mg capsule TAKE 1 CAPSULE BY MOUTH TWICE A DAY No doxycyclin e monohydrat e 100 mg capsule TAKE 1 CAPSULE BY MOUTH TWICE A DAY [facility] Humulin R U-500 (Conc) Insulin Kwikpen 500 unit/mL (3 mL) subcutaneou s Inject 80 units twice a day by subcutaneou s route before meals for 90 days. Humulin R U-500 (Conc) Insulin Kwikpen 500 unit/mL (3 mL) subcutaneou s Inject 80 units twice a day by subcutaneou s route before meals for 90 days. No 80unit( s) BID Humulin R U-500 (Conc) Insulin Kwikpen 500 unit/mL (3 mL) subcutaneo us Inject 80 units twice a day by subcutaneo us route before meals for 90 days. [facility] Medical Humulin R U-500 (Concentrat ed) Insulin 500 unit/mL subcutaneou s soln INJECT 25 UNITS SUBCUTANEOU SLY TWICE A DAY (BEFORE BREAKFAST AND SUPPER) Humulin R U-500 (Concentrat ed) Insulin 500 unit/mL subcutaneou s soln INJECT 25 UNITS SUBCUTANEOU SLY TWICE A DAY (BEFORE BREAKFAST AND SUPPER) No Humulin R U-500 (Concentra gold) Insulin 500 unit/mL subcutaneo us soln INJECT 25 UNITS SUBCUTANEO USLY TWICE A DAY (BEFORE BREAKFAST AND SUPPER) [facility] OneTouch Verio test strips 1 each BID OneTouch Verio test strips 1 each BID No OneTouch Verio test strips 1 each BID [facility] Medical albuterol sulfate HFA 90 mcg/actuati on aerosol inhaler TAKE 1 PUFF BY MOUTH EVERY 4 TO 6 HOURS NEEDED albuterol sulfate HFA 90 mcg/actuati on aerosol inhaler TAKE 1 PUFF BY MOUTH EVERY 4 TO 6 HOURS NEEDED No albuterol sulfate HFA 90 mcg/actuat ion aerosol inhaler TAKE 1 PUFF BY MOUTH EVERY 4 TO [address] [facility] amlodipine 5 mg tablet TAKE 1 TABLET BY MOUTH TWICE A DAY amlodipine 5 mg tablet TAKE 1 TABLET BY MOUTH TWICE A DAY No amlodipine 5 mg tablet TAKE 1 TABLET BY MOUTH TWICE A DAY [facility] atorvastati n 80 mg tablet TAKE 1 TABLET BY MOUTH EVERYDAY AT BEDTIME atorvastati n 80 mg tablet TAKE 1 TABLET BY MOUTH EVERYDAY AT BEDTIME No atorvastat in 80 mg tablet TAKE 1 TABLET BY MOUTH EVERYDAY AT BEDTIME [facility] BD Insulin Syringe U-500 1/2 mL 31 gauge x 15" USE DIRECTED TWICE A DAY BD Insulin Syringe U-500 1/2 mL 31 gauge x 1564" USE DIRECTED TWICE A DAY No BD Insulin Syringe U-500 1/2 mL 31 gauge x 15" USE DIRECTED TWICE A DAY [facility] ciclopirox 8 % topical solution APPLY TO THE AFFECTED AREA(S) BY TOPICAL ROUTE ONCE DAILY PREFERABLY AT BEDTIME OR 8 HOURS BEFORE WASHING ciclopirox 8 % topical solution APPLY TO THE AFFECTED AREA(S) BY TOPICAL ROUTE ONCE DAILY PREFERABLY AT BEDTIME OR 8 HOURS BEFORE WASHING No ciclopirox 8 % topical solution APPLY TO THE AFFECTED AREA(S) BY TOPICAL ROUTE ONCE DAILY PREFERABLY AT BEDTIME OR 8 HOURS BEFORE WASHING [facility] Immunizations Ordered Immunization Name Filled Immunization Name Date Status Comments Source SARS-COV-2 COVID-19 PFIZER VACCINE 2021-04-12 00:00:00 Completed [facility] SARS-COV-2 COVID-19 PFIZER VACCINE 2020-08-24 00:00:00 Completed [facility] SARS-COV-2 COVID-19 PFIZER VACCINE 2020-08-03 00:00:00 Completed [facility] Influenza Virus Vaccine Quad .5 mL IM 6+ MO 2018-06-26 00:00:00 Completed [facility] Influenza Virus Vaccine Quad .5 mL IM 6+ MO (FLUZONE/FLULAVAL/F LUARIX) 2018-06-26 00:00:00 Completed [facility] Vital Signs Vital Name Observation Time Observation Value Comments S ource BP Diastolic 2022-04-11 00:00:00 70 mm[Hg] [facility] Height 2022-04-11 00:00:00 70 [in_i] [facility] BMI (Body Mass Index) 2022-04-11 00:00:00 49.5 kg/m2 [facility] BP Systolic 2022-04-11 00:00:00 130 mm[Hg] [facility] Body Weight 2022-04-11 00:00:00 345 [lb_av] [facility] BP Diastolic 2021-09-24 00:00:00 60 mm[Hg] [facility] Height 2021-09-24 00:00:00 70 [in_i] [facility] BMI (Body Mass Index) 2021-09-24 00:00:00 46.9 kg/m2 [facility] BP Systolic 2021-09-24 00:00:00 140 mm[Hg] [facility] Body Weight 2021-09-24 00:00:00 327 [lb_av] [facility] BP Diastolic 2020-09-13 00:00:00 80 mm[Hg] [facility] Height 2020-09-13 00:00:00 70 [in_i] [facility] BMI (Body Mass Index) 2020-09-13 00:00:00 45.3 kg/m2 [facility] BP Systolic 2020-09-13 00:00:00 142 mm[Hg] [facility] Body Weight 2020-09-13 00:00:00 316 [lb_av] [facility] Height 2017-06-05 17:46:00 177.8 cm [facility] Weight 2017-06-05 17:46:00 [facility] BMI Calculated 2017-06-05 17:46:00 [facility] Systolic (mm Hg) 2017-06-05 17:46:00 [facility] Diastolic (mm Hg) 2017-06-05 17:46:00 [facility] Temperature Oral (F) 2017-06-05 17:46:00 99.3 F [facility] Heart Rate 2017-06-05 17:46:00 [facility] BMI Calculated 2017-04-29 15:23:00 [facility] Weight 2017-04-29 15:23:00 [facility] Height 2017-04-29 15:23:00 177.8 cm [facility] Heart Rate 2017-04-29 15:00:00 [facility] Respitory Rate 2017-04-29 15:00:00 [facility] Systolic (mm Hg) 2017-04-29 15:00:00 [facility] Diastolic (mm Hg) 2017-04-29 15:00:00 [facility] Procedures Procedure Date / Time Performed Performing Clinician Source SARS-COV-2 COVID-19 VACCINE,0.3ML,IM (PFIZER) 2021-04-12 22:54:16 Doctor Unassigned, [place] [facility] Drainage of Skin Abscess 2019-11-02 00:00:00 [facility] Myelography via lumbar injection, including radiological supervision and interpretation; thoracic 2017-04-29 16:14:00 [facility] Myelography via lumbar injection, including radiological supervision and interpretation; lumbosacral 2017-04-29 16:14:00 [facility] NJX INTERLAMINAR LMBR/SA 2017-04-25 14:50:00 [facility] Ear operations [facility] chacorta Lumbar epidural injection [facility] Lumbar epidural steroid injection [facility] Nose operation [facility] chacorta [facility] Plan of Care Planned Activity Planned Date Details Comments Source Diagnostic Test Pending 2022-04-11 00:00:00 gluc ose, fingerstick, blood [code = glucose, fingerstick, blood] [facility] Medical Encounters Start Date/Time End Date/Time Encounter Type Admission Type Attending Clinicians Care Facility Care Department Encounter ID Source 2020-02-03 00:00:00 2024-09-16 21:54:46 Letter (Out) Pcp, Patient Does Not Have A [facility] ([facility]) 1.2.840.114 350.1.13.10 [id number] [id number] [facility] 2023-01-28 05:21:00 2023-01-28 05:21:00 Outpatient Neel Collado [facility] OUTD [id number] [facility] 2022-07-15 00:00:00 2022-07-15 00:00:00 SEAN MayaWOOD CREW SUPERVISORBrendenC: [address], [place] [address] , Ph. [facility] - [facility] Office* [id number] [facility] 2022-04-11 00:00:00 2022-04-11 00:00:00 SEAN MayaWOOD CREW SUPERVISORBrendenC: [address], [place] [address] , Ph. [facility] - [facility] Office* [id number] [facility] 2021-09-24 00:00:00 2021-09-24 00:00:00 Outpatient Ellen Pantoja [facility] [id number] 2021-09-24 00:00:00 2021-09-24 00:00:00 Ellen Pantoja MD: [address] [facility], [facility] [address], [place] [address] , Ph. [facility] - [facility]_Pas terri Office* [id number] [facility] 2021-04-12 16:30:00 2021-04-12 16:30:00 Outpatient PAUL RAMÍREZ [facility] [id number] [facility] 2021-04-12 16:14:33 2021-04-12 16:14:42 Imm/Inj Visit Nurse, Marivel Pob Immunizatio Paul William [facility] 1.2.840.114 350.1.13.10 4.2.7.2.686 [id number] [facility] 2020-09-13 00:00:00 2020-09-13 00:00:00 Outpatient Ellen Pantoja [facility] [id number] 2020-09-13 00:00:00 2020-09-13 00:00:00 Ellen Pantoja MD: [address], [facility] [address], [place] [address] , Ph. [facility] - [facility]_Pas terri Office* [id number] [facility] 2020-08-24 14:40:00 2020-08-24 14:40:00 Outpatient JAZMIN ZAMBRANO [facility] [id number] [facility] 2020-08-03 14:40:00 2020-08-03 14:40:[address] [facility] [id number] [facility] 2020-02-08 08:00:00 2020-02-08 08:00:00 Inpatient Neel Collado [facility] DAYS [id number] [facility] 2020-02-02 11:30:00 2020-02-02 11:30:00 Outpatient CHINO MASON [facility] [id number] [facility] 2020-02-02 11:14:48 2020-02-02 11:29:48 Laboratory Only Only, Adc Test [facility] 1.2.840.114 350.1.13.10 4.2.7.2.686 [id number] 2020-02-02 00:00:00 2020-02-02 00:00:00 Orders Only Doctor Unassigned, [place] [facility] 1.2.840.114 350.1.13.10 4.2.7.2.686 [id number] 2020-01-05 00:00:00 2020-01-05 00:00:00 Telephone Atkins, [facility] 1.2.840.114 350.1.13.10 4.2.7.2.686 [id number] 2019-06-16 00:00:00 2019-06-16 00:00:00 Telephone Atkins, [facility] 1.2.840.114 350.1.13.10 4.2.7.2.686 [id number] 2019-06-09 00:00:00 2019-06-09 00:00:00 Telephone Atkins, [facility] 1.2.840.114 350.1.13.10 4.2.7.2.686 [id number] 2019-02-10 00:00:00 2019-02-10 00:00:00 Telephone Atkins, [facility] 1.2.840.114 350.1.13.10 4.2.7.2.686 [id number] 2018-12-13 00:00:00 2018-12-13 00:00:00 Orders Only Doctor Unassigned, [place] [facility] 1.2.840.114 350.1.13.10 4.2.7.2.686 [id number] 2018-11-27 00:00:00 2018-11-27 00:00:00 [facility] 1.2.840.114 350.1.13.10 4.2.7.2.686 [id number] 2017-12-04 15:30:00 2017-12-04 15:30:00 Ambulatory Pre-Reg nullFlavo r [facility] [id number] Chelo Sagastume 2017-06-06 20:31:00 2017-06-08 05:59:59 Phone Message nullFlavo r [facility] [id number] Chleo Sagastume 2017-06-05 17:30:00 2017-06-06 05:59:59 Outpatient nullFlavo r [facility] [id number] Chelo Sagastume 2017-04-30 17:52:00 2017-05-02 05:59:59 Phone Message nullFlavo r [facility] [id number] Chelo Sagastume 2017-04-29 14:20:00 2017-04-30 05:59:00 Outpatient nullFlavo r [facility] [id number] Chelo Sagastume 2017-04-25 14:00:00 2017-04-26 05:59:59 Outpatient nullFlavo r [facility] [id number] Chelo Sagastume 2017-04-24 22:30:00 2017-04-26 05:59:59 Phone Message nullFlavo r [facility] [id number] Chelo Sagastume 2017-04-24 22:27:00 2017-04-26 05:59:59 Phone Message nullFlavo r [facility] [id number] Chelo Sagastume 2017-04-04 13:00:00 2017-04-04 13:00:00 Outpatient AMPARO JESS [id number] Chelo Sagastume 2017-03-19 15:22:00 2017-03-20 04:59:[address] [facility] [id number] Chelo Sagastume 2017-03-19 08:45:00 2017-03-19 08:45:00 Outpatient AMPARO CHRISTENSEN [id number] Chelo Sagastume 2017-03-19 07:45:00 2017-03-19 07:45:00 Outpatient AMPARO CHRISTENSEN [id number] Chelo Sagastume 2016-09-04 07:45:00 2016-09-04 07:45:00 Outpatient AMPARO JESS [id number] Chelo Sagastume 2016-08-19 10:30:00 2016-08-19 10:30:00 Outpatient AMPARO CHRISTENSEN [id number] Chelo Sagastume Results Test Description Test Time Test Comments Results Result Co mments Source GLUCOSE [id number] 20:59:00* Test Item Value Reference Range Interpretation Comme [facility] GLUCOSE BEDSIDE (test code = GLUBED) 123 MG/DL 70-110 H Performed by cer tified slug press operator at [facility] GLUCOSE [id number] 09:06:00* Test Item Value Reference Range Interpretation Comme [facility] GLUCOSE BEDSIDE (test code = GLUBED) 98 MG/DL 70-110 N Performed by cer tified slug press operator at [facility] PROTHROMBIN [id number] 15:53:00* Test Item Value Reference Range Interpretation Comme [facility] PROTHROMBIN TIME PATIENT (test code = PTP) 11.5 SECONDS 9.3-12.9 N INTERNATIONAL NORMAL RATIO (test code = INR) 1.0 0.8-1.2 N TARGET INR BY INDICATION Indication INR1. Prophylaxis of venous thrombosis 2.0 - 3.0 (orthopedic surgery), Prophylaxis of venous thrombosis (other than high-risk surgery), Treatment of Deep Vein Thrombosis/Pulmonary Embolism, Prevention of systemic embolism - Tissue heart valves, Acute Myocardial Infarction (to prevent systemic embolism), Valvular heart disease, Atrial Fibrillation, Bileaflet mechanical valve in aortic position.2. Mechanical prosthetic valves (high risk), 2.5 - 3.5 Presence of Lupus Anticoagulant or Antiphospholipid Antibodies, Prevention of systemic embolism - Acute Myocardial Infarction (to prevent recurrent infarct). BASIC METABOLIC [id number] 15:37:00* Test Item Value Reference Range Interpretation Comme nts SODIUM (test code = NA) 138 mEq/L 134-147 N POTASSIUM (test code = K) 4.2 mEq/L 3.4-5.0 N CHLORIDE (test code = CL) 106 mEq/L 100-108 N CARBON DIOXIDE (test code = CO2) 29 mEq/l 21-33 N ANION GAP (test code = GAP) 8 0-20 N GLUCOSE (test code = GLU) 98 mg/dL 77-141 N NOTE: NEW NORMAL RANGE BLOOD UREA NITROGEN (test code = BUN) 17 mg/dL 7-25 N NOTE: NEW NORM AL RANGE GLOMERULAR FILTRATION RATE (test code = GFR) 87.8 90-95 L The Glomerular Filtration Rate is a calculated parameterbased on serum Creatinine, patient age and sex. GFR valuesless than 60 mL/min/1.73 square meters are indicative ofChronic Kidney Disease. Values less than 15 mL/min/1.73square meters indicate Kidney failure. The calculation forGFR is based on the CKD-EPI (2020) calculation. This formulais race indifferent and is the recommended formula for GFRby the National Kidney Foundation for Adults.The GFR will not calculate if the sex is unknown or if thepatient's age is <18 years. CREATININE (test code = CREAT) 1.0 mg/dL 0.6-1.3 N CALCIUM (test code = CA) 9.0 mg/dL 8.0-10.5 N CBC W/AUTO [id number] 15:25:00* Test Item Value Reference Range Interpretation Comme nts WHITE BLOOD CELL (test code = WBC) 6.3 x10 3/uL 4.5-11.0 N RED BLOOD CELL (test code = RBC) 4.08 x10 6/uL 4.00-5.60 N HEMOGLOBIN (test code = HGB) 11.1 g/dL 12.5-16.9 L HEMATOCRIT (test code = HCT) 35.0 % 37.5-50.7 L MEAN CELL VOLUME (test code = MCV) 85.8 fL 81.0-99.0 N MEAN CELL HGB (test code = MCH) 27.2 pg 27.0-33.0 N MEAN CELL HGB CONCETRATION (test code = MCHC) 31.7 g/dL 33.0-37.0 L RED CELL DISTRIBUTION WIDTH CV (test code = RDW) 14.7 % 11.5-14.5 H RED CELL DISTRIBUTION WIDTH SD (test code = RDW-SD) 46.2 fL 37.0-54.0 N PLATELET COUNT (test code = PLT) 185 x10 3/uL 150-400 N MEAN PLATELET VOLUME (test c ode = MPV) 10.2 fL 7.0-9.0 H NEUTROPHIL % (test code = NT%) 64.7 % 56.0-77.0 N IMMATURE GRANULOCYTE % (test code = IG%) 0.5 % 0.0-2.0 N LYMPHOCYTE % (test code = LY%) 22.8 % 14.0-32.0 N MONOCYTE % (test code = MO%) 7.2 % 4.8-9.0 N EOSINOPHIL % (test code = EO%) 4.0 % 0.3-3.7 H BASOPHIL % (test code = BA%) 0.8 % 0.0-2.0 N NUCLEATED RBC % (test code = NRBC%) 0.0 % 0-0 N NEUTROPHIL # (test code = NT#) 4.07 x10 3/uL 2.0-7.6 N IMMATURE GRANULOCYTE # (test code = IG#) 0.03 x10 3/uL 0.00-0.03 N LYMPHOCYTE # (test code = LY#) 1.43 x10 3/uL 1.0-3.8 N MONOCYTE # (test code = MO#) 0.45 x10 3/uL 0.1-0.8 N EOSINOPHIL # (test code = EO#) 0.25 x10 3/uL 0.0-0.2 H BASOPHIL # (test code = BA#) 0.05 x10 3/uL 0.0-0.2 N NUCLEATED RBC # (test code = NRBC#) 0.00 x10 3/uL 0.0-0.1 N MANUAL DIFF REQUIRED (test c ode = MDIFF) NO - XR CHEST 2 [id number] 00:00:00 [facility] 1965 Sex: M FAX:Neel Ruvalcaba MD [phone] [place] St: PRE Name: ROBBIN OSORIO [facility] [place] : 1965 Age/S: 57/M [address] [place] [address] Unit #: [id number] Loc: [place] [address] Phys: Neel Garcia MD Acct: [id number] Dis Date: Status: PRE [facility] PHONE #: [phone] Exam Date: 01/23/2023 1454 FAX #: [phone] Reason: PRE OP EXAMS: CPT CODE: [id number] XR CHEST 2 V 88505 PROCEDURE INFORMATION: Exam: XR ChestExam date and time: 01/23/2023 2:32 PM Age: 57 years old Clinical indication: Pre-operative exam; Respiratory screening exam; Additional info: Pre op TECHNIQUE: Imaging protocol: Radiologic exam of the chest. Views: 2 views. PA and Lateral COMPARISON: No relevant prior studies available. FINDINGS: Lungs: There are normal lung volumes without consolidation or interstitial opacities. Pleural spaces: Unremarkable. No pleural effusion. No pneumothorax. Heart/Mediastinum: The cardiac silhouette is slightly enlarged. Bones/joints: No acute abnormality seen. IMPRESSION: No acute cardiopulmonary findings. at 1524 Reported andsigned by: Luis Daniel Castro M.D. CC: Neel Garcia MD Technologist: RT Jayla(R) TrnscrdDate/Time/By: 01/23/2023 (1524) : By: CiroTDO Orig Print D/T: S: 01/23/2023 (4045) PAGE 1 Signed ReportGlucose [Mass/volume] in Capillary [id number] 14:44:52* Test Item Value Reference Range Interpretation Comme nts glucose (test code = glucose) 190 mg/dL 65-99 [facility] [Mass/volume] in Capillary [id number] 09:57:51* Test Item Value Reference Range Interpretation Comme nts glucose (test code = glucose) 264 mg/dL 65-99 [facility] [id number] 15:58:00* Test Item Value Reference Range Interpretation Comme nts GLUBED (test code = GLUBED) 147 MG/DL 70-105 H [id number] 16:42:00* Test Item Value Reference Range Interpretation Comme nts PTT (test code = PTT) 29.4 s 22.9-35.8 [facility] [id number] 15:26:00* Test Item Value Reference Range Interpretation Comme nts eGFR (test code = eGFR) 95 [facility] [id number] 15:26:00* Test Item Value Reference Range Interpretation Comme nts MCV (test code = MCV) 84.7 80.0-94.0 [facility] [id number] 05:57:00* Test Item Value Reference Range Interpretation Comme nts Glucose (test code = GLU) 117 mg/dl 75-110 H BUN (test code = BUN) 12.0 mg/dl 6.0-17.0 Creatinine (test code = CREA) 0.9 mg/dl 0.4-1.2 Sodium (test code = NA) 142 mmol/l 137-145 Potassium (test code = K) 4.3 mmol/l 3.5-5.0 Chloride (test code = CL) 104 mmol/l 98-107 CO2 (test code = CO2) 26 mmol/l 22-30 Calcium (test code = CALC) 9.6 mg/dl 8.4-10.2 T Protein (test code = TP) 8.6 gm/dl 5.1-8.7 Albumin (test code = ALB) 4.0 gm/dl 3.5-4.6 A/G Ratio (test code = AGRAT) 0.9 % 1.1-2.2 L AST (SGOT) (test code = AST) 31 U/L 11-36 ALT (SGPT) (test code = ALT) 51 U/L 11-40 H Alkaline Phos (test code = ALKP) 73 U/L 47-114 Total Bilirubin (test code = TBIL) 0.6 mg/dl 0.2-1.2 Globulin (test code = GLOBU) 4.6 gm/dl 2.3-3.5 H Calcium, Corrected (test code = CALCCORR) 9.6 mg/dl 8.4-10.2 Various formulas exist for corrected serum calcium results, each yielding different values. This corrected result was based on the formula: Corrected Calcium = SerumCalcium + [0.8 * ( 4 - SerumAlbumin)] EGFR if (test code = EGFRAA) >60 mL/min/1.73m\\ S\\2 EGFR if Non- (test code = EGFRNA) >60 mL/min/1.73m\\ S\\2 Estimated Glomerular Filtration Rate (eGFR) Reference Intervals Decision Points for 18 years and older and average body mass: >= 60 Does not exclude kidney disease. 30 - 59 Suggests moderate chronic kidney disease and indicates the need for further investigation including assessment of proteinuria and cardiovascular factors. < 30 Usually indicates a need for referral for assessment and management of chronic kidney failure. [facility] WITH AUTO [id number] 05:42:00* Test Item Value Reference Range Interpretation Comme nts WBC (test code = WBC) 5.14 10\\S\\3/ul 4.80-10.80 RBC (test code = RBC) 4.61 10\\S\\6/ul 4.70-6.10 L Hemoglobin (test code = HGB) 12.4 gm/dl 14.0-18.0 L Hematocrit (test code = HCT) 39.1 % 42.0-50.0 L MCV (test code = MCV) 84.8 fL 80.0-94.0 MCH (test code = MCH) 26.9 pg 27.0-31.0 L MCHC (test code = MCHC) 31.7 gm/dl 33.0-37.0 L RDW (test code = RDWVC) 15.0 % 11.5-14.5 H Platelet (test code = PLT) 473 10\\S\\3/ul 130-400 H MPV (test code = MPV) 8.9 fL 7.4-10.4 A "NOT MEASURED" RESULTS ARE DISPLAYED WHEN THE INSTRUMENT HAS A SUPPRESSED OR UNREPORTABLE RESULT. THIS WILL MOST OFTEN HAPPEN WITH THE MPV WHEN THERE IS AN ABNORMAL PLATLET DISTRIBUTION DUE TO A CRITICAL LOW VALUE OR PLATELET CLUMPING. NE% (test code = NE) 57.7 % 42.0-75.0 LY% (test code = LY) 29.2 % 13.0-42.0 MO% (test code = MO) 8.4 % 4.0-14.0 EO% (test code = EO) 2.3 % 1.0-3.0 BA% (test code = BA) 1.4 % 1.0-3.0 IG% (test code = IG%) 1.0 % 0.0-0.4 H [id number] 05:53:00* Test Item Value Reference Range Interpretation Comme nts Glucose (test code = GLU) 116 mg/dl 75-110 H BUN (test code = BUN) 13.0 mg/dl 6.0-17.0 Creatinine (test code = CREA) 0.9 mg/dl 0.4-1.2 Sodium (test code = NA) 139 mmol/l 137-145 Potassium (test code = K) 4.4 mmol/l 3.5-5.0 Chloride (test code = CL) 102 mmol/l 98-107 CO2 (test code = CO2) 26 mmol/l 22-30 Calcium (test code = CALC) 9.2 mg/dl 8.4-10.2 T Protein (test code = TP) 8.1 gm/dl 5.1-8.7 Albumin (test code = ALB) 3.7 gm/dl 3.5-4.6 A/G Ratio (test code = AGRAT) 0.8 % 1.1-2.2 L AST (SGOT) (test code = AST) 52 U/L 11-36 H ALT (SGPT) (test code = ALT) 60 U/L 11-40 H Alkaline Phos (test code = ALKP) 73 U/L 47-114 Total Bilirubin (test code = TBIL) 0.6 mg/dl 0.2-1.2 Globulin (test code = GLOBU) 4.4 gm/dl 2.3-3.5 H Calcium, Corrected (test code = CALCCORR) 9.4 mg/dl 8.4-10.2 Various formulas exist for corrected serum calcium results, each yielding different values. This corrected result was based on the formula: Corrected Calcium = SerumCalcium + [0.8 * ( 4 - SerumAlbumin)] EGFR if (test code = EGFRAA) >60 mL/min/1.73m\\ S\\2 EGFR if Non- (test code = EGFRNA) >60 mL/min/1.73m\\ S\\2 Estimated Glomerular Filtration Rate (eGFR) Reference Intervals Decision Points for 18 years and older and average body mass: >= 60 Does not exclude kidney disease. 30 - 59 Suggests moderate chronic kidney disease and indicates the need for further investigation including assessment of proteinuria and cardiovascular factors. < 30 Usually indicates a need for referral for assessment and management of chronic kidney failure. [facility] WITH AUTO [id number] 05:27:00* Test Item Value Reference Range Interpretation Comme nts WBC (test code = WBC) 5.28 10\\S\\3/ul 4.80-10.80 RBC (test code = RBC) 4.50 10\\S\\6/ul 4.70-6.10 L Hemoglobin (test code = HGB) 12.1 gm/dl 14.0-18.0 L Hematocrit (test code = HCT) 38.7 % 42.0-50.0 L MCV (test code = MCV) 86.0 fL 80.0-94.0 MCH (test code = MCH) 26.9 pg 27.0-31.0 L MCHC (test code = MCHC) 31.3 gm/dl 33.0-37.0 L RDW (test code = RDWVC) 15.1 % 11.5-14.5 H Platelet (test code = PLT) 432 10\\S\\3/ul 130-400 H MPV (test code = MPV) 8.9 fL 7.4-10.4 A "NOT MEASURED" RESULTS ARE DISPLAYED WHEN THE INSTRUMENT HAS A SUPPRESSED OR UNREPORTABLE RESULT. THIS WILL MOST OFTEN HAPPEN WITH THE MPV WHEN THERE IS AN ABNORMAL PLATLET DISTRIBUTION DUE TO A CRITICAL LOW VALUE OR PLATELET CLUMPING. NE% (test code = NE) 53.6 % 42.0-75.0 LY% (test code = LY) 29.9 % 13.0-42.0 MO% (test code = MO) 10.8 % 4.0-14.0 EO% (test code = EO) 3.4 % 1.0-3.0 H BA% (test code = BA) 0.6 % 1.0-3.0 L IG% (test code = IG%) 1.7 % 0.0-0.4 [facility] 04:[facility]:00* Test Item Value Reference Range Interpretation Comme nts Glucose (test code = GLU) 148 mg/dl 75-110 H BUN (test code = BUN) 14.0 mg/dl 6.0-17.0 Creatinine (test code = CREA) 1.0 mg/dl 0.4-1.2 Sodium (test code = NA) 141 mmol/l 137-145 Potassium (test code = K) 4.4 mmol/l 3.5-5.0 Chloride (test code = CL) 103 mmol/l 98-107 CO2 (test code = CO2) 26 mmol/l 22-30 Calcium (test code = CALC) 9.0 mg/dl 8.4-10.2 T Protein (test code = TP) 7.9 gm/dl 5.1-8.7 Albumin (test code = ALB) 3.7 gm/dl 3.5-4.6 A/G Ratio (test code = AGRAT) 0.9 % 1.1-2.2 L AST (SGOT) (test code = AST) 36 U/L 11-36 ALT (SGPT) (test code = ALT) 63 U/L 11-40 H Alkaline Phos (test code = ALKP) 68 U/L 47-114 Total Bilirubin (test code = TBIL) 0.8 mg/dl 0.2-1.2 Globulin (test code = GLOBU) 4.2 gm/dl 2.3-3.5 H Calcium, Corrected (test code = CALCCORR) 9.2 mg/dl 8.4-10.2 Various formulas exist for corrected serum calcium results, each yielding different values. This corrected result was based on the formula: Corrected Calcium = SerumCalcium + [0.8 * ( 4 - SerumAlbumin)] EGFR if (test code = EGFRAA) >60 mL/min/1.73m\\ S\\2 EGFR if Non- (test code = EGFRNA) >60 mL/min/1.73m\\ S\\2 Estimated Glomerular Filtration Rate (eGFR) Reference Intervals Decision Points for 18 years and older and average body mass: >= 60 Does not exclude kidney disease. 30 - 59 Suggests moderate chronic kidney disease and indicates the need for further investigation including assessment of proteinuria and cardiovascular factors. < 30 Usually indicates a need for referral for assessment and management of chronic kidney failure. [facility] WITH AUTO [id number] 04:14:00* Test Item Value Reference Range Interpretation Comme nts WBC (test code = WBC) 5.76 10\\S\\3/ul 4.80-10.80 RBC (test code = RBC) 4.33 10\\S\\6/ul 4.70-6.10 L Hemoglobin (test code = HGB) 11.7 gm/dl 14.0-18.0 L Hematocrit (test code = HCT) 37.4 % 42.0-50.0 L MCV (test code = MCV) 86.4 fL 80.0-94.0 MCH (test code = MCH) 27.0 pg 27.0-31.0 MCHC (test code = MCHC) 31.3 gm/dl 33.0-37.0 L RDW (test code = RDWVC) 15.2 % 11.5-14.5 H Platelet (test code = PLT) 412 10\\S\\3/ul 130-400 H MPV (test code = MPV) 8.8 fL 7.4-10.4 A "NOT MEASURED" RESULTS ARE DISPLAYED WHEN THE INSTRUMENT HAS A SUPPRESSED OR UNREPORTABLE RESULT. THIS WILL MOST OFTEN HAPPEN WITH THE MPV WHEN THERE IS AN ABNORMAL PLATLET DISTRIBUTION DUE TO A CRITICAL LOW VALUE OR PLATELET CLUMPING. NE% (test code = NE) 58.3 % 42.0-75.0 LY% (test code = LY) 25.2 % 13.0-42.0 MO% (test code = MO) 10.1 % 4.0-14.0 EO% (test code = EO) 3.3 % 1.0-3.0 H BA% (test code = BA) 1.2 % 1.0-3.0 IG% (test code = IG%) 1.9 % 0.0-0.4 H [facility] 04:40:00* Test Item Value Reference Range Interpretation Comme nts Glucose (test code = GLU) 122 mg/dl 75-110 H BUN (test code = BUN) 13.0 mg/dl 6.0-17.0 Creatinine (test code = CREA) 0.9 mg/dl 0.4-1.2 Sodium (test code = NA) 140 mmol/l 137-145 Potassium (test code = K) 4.3 mmol/l 3.5-5.0 Chloride (test code = CL) 104 mmol/l 98-107 CO2 (test code = CO2) 27 mmol/l 22-30 Calcium (test code = CALC) 9.1 mg/dl 8.4-10.2 T Protein (test code = TP) 8.1 gm/dl 5.1-8.7 Albumin (test code = ALB) 3.7 gm/dl 3.5-4.6 A/G Ratio (test code = AGRAT) 0.8 % 1.1-2.2 L AST (SGOT) (test code = AST) 39 U/L 11-36 H ALT (SGPT) (test code = ALT) 70 U/L 11-40 H Alkaline Phos (test code = ALKP) 77 U/L 47-114 Total Bilirubin (test code = TBIL) 0.8 mg/dl 0.2-1.2 Globulin (test code = GLOBU) 4.4 gm/dl 2.3-3.5 H Calcium, Corrected (test code = CALCCORR) 9.3 mg/dl 8.4-10.2 Various formulas exist for corrected serum calcium results, each yielding different values. This corrected result was based on the formula: Corrected Calcium = SerumCalcium + [0.8 * ( 4 - SerumAlbumin)] EGFR if (test code = EGFRAA) >60 mL/min/1.73m\\ S\\2 EGFR if Non- (test code = EGFRNA) >60 mL/min/1.73m\\ S\\2 Estimated Glomerular Filtration Rate (eGFR) Reference Intervals Decision Points for 18 years and older and average body mass: >= 60 Does not exclude kidney disease. 30 - 59 Suggests moderate chronic kidney disease and indicates the need for further investigation including assessment of proteinuria and cardiovascular factors. < 30 Usually indicates a need for referral for assessment and management of chronic kidney failure. [facility] WITH AUTO [id number] 04:09:00* Test Item Value Reference Range Interpretation Comme nts WBC (test code = WBC) 6.63 10\\S\\3/ul 4.80-10.80 RBC (test code = RBC) 4.55 10\\S\\6/ul 4.70-6.10 L Hemoglobin (test code = HGB) 12.3 gm/dl 14.0-18.0 L Hematocrit (test code = HCT) 38.8 % 42.0-50.0 L MCV (test code = MCV) 85.3 fL 80.0-94.0 MCH (test code = MCH) 27.0 pg 27.0-31.0 MCHC (test code = MCHC) 31.7 gm/dl 33.0-37.0 L RDW (test code = RDWVC) 15.4 % 11.5-14.5 H Platelet (test code = PLT) 401 10\\S\\3/ul 130-400 H MPV (test code = MPV) 8.9 fL 7.4-10.4 A "NOT MEASURED" RESULTS ARE DISPLAYED WHEN THE INSTRUMENT HAS A SUPPRESSED OR UNREPORTABLE RESULT. THIS WILL MOST OFTEN HAPPEN WITH THE MPV WHEN THERE IS AN ABNORMAL PLATLET DISTRIBUTION DUE TO A CRITICAL LOW VALUE OR PLATELET CLUMPING. NE% (test code = NE) 63.8 % 42.0-75.0 LY% (test code = LY) 21.4 % 13.0-42.0 MO% (test code = MO) 8.6 % 4.0-14.0 EO% (test code = EO) 3.2 % 1.0-3.0 H BA% (test code = BA) 0.6 % 1.0-3.0 L IG% (test code = IG%) 2.4 % 0.0-0.4 H [facility], [id number] 06:50:00To start 15mins after 1st cultureSpecimen: BloodCollected: 01/18/2017 04:05 Status: Final Last Updated: 01/23/2017 06:49 (1) To start 15mins after 1st culture Culture Result (Final) (Final) No [facility] [address] [facility] [id number] 06:50:00Specimen: BloodCollected: 01/18/2017 03:55 Status: Final Last Updated: 01/23/2017 06:49 Culture Result (Final) (Final) No Growth After 5 DaysFormer[facility] named [facility] WITH AUTO [id number] 04:31:00* Test Item Value Reference Range Interpretation Comme nts WBC (test code = WBC) 7.39 10\\S\\3/ul 4.80-10.80 RBC (test code = RBC) 4.43 10\\S\\6/ul 4.70-6.10 L Hemoglobin (test code = HGB) 11.9 gm/dl 14.0-18.0 L Hematocrit (test code = HCT) 37.8 % 42.0-50.0 L MCV (test code = MCV) 85.3 fL 80.0-94.0 MCH (test code = MCH) 26.9 pg 27.0-31.0 L MCHC (test code = MCHC) 31.5 gm/dl 33.0-37.0 L RDW (test code = RDWVC) 15.6 % 11.5-14.5 H Platelet (test code = PLT) 391 10\\S\\3/ul 130-400 MPV (test code = MPV) 8.9 fL 7.4-10.4 A "NOT MEASURED" RESULTS ARE DISPLAYED WHEN THE INSTRUMENT HAS A SUPPRESSED OR UNREPORTABLE RESULT. THIS WILL MOST OFTEN HAPPEN WITH THE MPV WHEN THERE IS AN ABNORMAL PLATLET DISTRIBUTION DUE TO A CRITICAL LOW VALUE OR PLATELET CLUMPING. NE% (test code = NE) 64.7 % 42.0-75.0 LY% (test code = LY) 19.9 % 13.0-42.0 MO% (test code = MO) 8.9 % 4.0-14.0 EO% (test code = EO) 2.3 % 1.0-3.0 BA% (test code = BA) 0.8 % 1.0-3.0 L IG% (test code = IG%) 3.4 % 0.0-0.4 H [facility]-[id number] 04:19:00* Test Item Value Reference Range Interpretation Comme nts Glucose (test code = GLU) 125 mg/dl 75-110 H BUN (test code = BUN) 12.0 mg/dl 6.0-17.0 Creatinine (test code = CREA) 0.9 mg/dl 0.4-1.2 Sodium (test code = NA) 143 mmol/l 137-145 Potassium (test code = K) 4.3 mmol/l 3.5-5.0 Chloride (test code = CL) 101 mmol/l 98-107 CO2 (test code = CO2) 29 mmol/l 22-30 Calcium (test code = CALC) 9.0 mg/dl 8.4-10.2 T Protein (test code = TP) 7.9 gm/dl 5.1-8.7 Albumin (test code = ALB) 3.6 gm/dl 3.5-4.6 A/G Ratio (test code = AGRAT) 0.8 % 1.1-2.2 L AST (SGOT) (test code = AST) 42 U/L 11-36 H ALT (SGPT) (test code = ALT) 69 U/L 11-40 H Alkaline Phos (test code = ALKP) 82 U/L 47-114 Total Bilirubin (test code = TBIL) 0.7 mg/dl 0.2-1.2 Globulin (test code = GLOBU) 4.3 gm/dl 2.3-3.5 H Calcium, Corrected (test code = CALCCORR) 9.3 mg/dl 8.4-10.2 Various formulas exist for corrected serum calcium results, each yielding different values. This corrected result was based on the formula: Corrected Calcium = SerumCalcium + [0.8 * ( 4 - SerumAlbumin)] EGFR if (test code = EGFRAA) >60 mL/min/1.73m\\ S\\2 EGFR if Non- (test code = EGFRNA) >60 mL/min/1.73m\\ S\\2 Estimated Glomerular Filtration Rate (eGFR) Reference Intervals Decision Points for 18 years and older and average body mass: >= 60 Does not exclude kidney disease. 30 - 59 Suggests moderate chronic kidney disease and indicates the need for further investigation including assessment of proteinuria and cardiovascular factors. < 30 Usually indicates a need for referral for assessment and management of chronic kidney failure. [facility] WITH AUTO [id number] 04:57:00* Test Item Value Reference Range Interpretation Comme nts WBC (test code = WBC) 7.78 10\\S\\3/ul 4.80-10.80 RBC (test code = RBC) 4.46 10\\S\\6/ul 4.70-6.10 L Hemoglobin (test code = HGB) 12.0 gm/dl 14.0-18.0 L Hematocrit (test code = HCT) 38.2 % 42.0-50.0 L MCV (test code = MCV) 85.7 fL 80.0-94.0 MCH (test code = MCH) 26.9 pg 27.0-31.0 L MCHC (test code = MCHC) 31.4 gm/dl 33.0-37.0 L RDW (test code = RDWVC) 15.5 % 11.5-14.5 H Platelet (test code = PLT) 359 10\\S\\3/ul 130-400 MPV (test code = MPV) 9.0 fL 7.4-10.4 A "NOT MEASURED" RESULTS ARE DISPLAYED WHEN THE INSTRUMENT HAS A SUPPRESSED OR UNREPORTABLE RESULT. THIS WILL MOST OFTEN HAPPEN WITH THE MPV WHEN THERE IS AN ABNORMAL PLATLET DISTRIBUTION DUE TO A CRITICAL LOW VALUE OR PLATELET CLUMPING. NE% (test code = NE) 66.4 % 42.0-75.0 LY% (test code = LY) 17.1 % 13.0-42.0 MO% (test code = MO) 9.3 % 4.0-14.0 EO% (test code = EO) 2.7 % 1.0-3.0 BA% (test code = BA) 0.5 % 1.0-3.0 L IG% (test code = IG%) 4.0 % 0.0-0.4 H CBC AUTO [facility]-[id number] 04:35:00* Test Item Value Reference Range Interpretation Comme nts Glucose (test code = GLU) 108 mg/dl 75-110 BUN (test code = BUN) 10.0 mg/dl 6.0-17.0 Creatinine (test code = CREA) 0.9 mg/dl 0.4-1.2 Sodium (test code = NA) 142 mmol/l 137-145 Potassium (test code = K) 4.4 mmol/l 3.5-5.0 Chloride (test code = CL) 102 mmol/l 98-107 CO2 (test code = CO2) 32 mmol/l 22-30 H Calcium (test code = CALC) 8.9 mg/dl 8.4-10.2 T Protein (test code = TP) 7.6 gm/dl 5.1-8.7 Albumin (test code = ALB) 3.5 gm/dl 3.5-4.6 A/G Ratio (test code = AGRAT) 0.9 % 1.1-2.2 L AST (SGOT) (test code = AST) 75 U/L 11-36 H ALT (SGPT) (test code = ALT) 68 U/L 11-40 H Alkaline Phos (test code = ALKP) 80 U/L 47-114 Total Bilirubin (test code = TBIL) 0.8 mg/dl 0.2-1.2 Globulin (test code = GLOBU) 4.1 gm/dl 2.3-3.5 H Calcium, Corrected (test code = CALCCORR) 9.3 mg/dl 8.4-10.2 Various formulas exist for corrected serum calcium results, each yielding different values. This corrected result was based on the formula: Corrected Calcium = SerumCalcium + [0.8 * ( 4 - SerumAlbumin)] EGFR if (test code = EGFRAA) >60 mL/min/1.73m\\ S\\2 EGFR if Non- (test code = EGFRNA) >60 mL/min/1.73m\\ S\\2 Estimated Glomerular Filtration Rate (eGFR) Reference Intervals Decision Points for 18 years and older and average body mass: >= 60 Does not exclude kidney disease. 30 - 59 Suggests moderate chronic kidney disease and indicates the need for further investigation including assessment of proteinuria and cardiovascular factors. < 30 Usually indicates a need for referral for assessment and management of chronic kidney failure. [facility]O [id number] 05:01:00* Test Item Value Reference Range Interpretation Comme nts WBC (test code = WBC) 7.83 10\\S\\3/ul 4.80-10.80 RBC (test code = RBC) 4.26 10\\S\\6/ul 4.70-6.10 L Hemoglobin (test code = HGB) 11.7 gm/dl 14.0-18.0 L Hematocrit (test code = HCT) 36.5 % 42.0-50.0 L MCV (test code = MCV) 85.7 fL 80.0-94.0 MCH (test code = MCH) 27.5 pg 27.0-31.0 MCHC (test code = MCHC) 32.1 gm/dl 33.0-37.0 L RDW (test code = RDWVC) 15.7 % 11.5-14.5 H Platelet (test code = PLT) 299 10\\S\\3/ul 130-400 MPV (test code = MPV) 9.2 fL 7.4-10.4 A "NOT MEASURED" RESULTS ARE DISPLAYED WHEN THE INSTRUMENT HAS A SUPPRESSED OR UNREPORTABLE RESULT. THIS WILL MOST OFTEN HAPPEN WITH THE MPV WHEN THERE IS AN ABNORMAL PLATLET DISTRIBUTION DUE TO A CRITICAL LOW VALUE OR PLATELET CLUMPING. NE% (test code = NE) 67.1 % 42.0-75.0 LY% (test code = LY) 16.0 % 13.0-42.0 MO% (test code = MO) 9.6 % 4.0-14.0 EO% (test code = EO) 2.4 % 1.0-3.0 BA% (test code = BA) 0.4 % 1.0-3.0 L IG% (test code = IG%) 4.5 % 0.0-0.4 H [facility]O [facility]-[id number] 04:56:00* Test Item Value Reference Range Interpretation Comme nts Glucose (test code = GLU) 107 mg/dl 75-110 BUN (test code = BUN) 7.0 mg/dl 6.0-17.0 Creatinine (test code = CREA) 0.9 mg/dl 0.4-1.2 Sodium (test code = NA) 143 mmol/l 137-145 Potassium (test code = K) 4.2 mmol/l 3.5-5.0 Chloride (test code = CL) 105 mmol/l 98-107 CO2 (test code = CO2) 29 mmol/l 22-30 Calcium (test code = CALC) 8.8 mg/dl 8.4-10.2 T Protein (test code = TP) 7.2 gm/dl 5.1-8.7 Albumin (test code = ALB) 3.5 gm/dl 3.5-4.6 A/G Ratio (test code = AGRAT) 0.9 % 1.1-2.2 L AST (SGOT) (test code = AST) 45 U/L 11-36 H ALT (SGPT) (test code = ALT) 87 U/L 11-40 H Alkaline Phos (test code = ALKP) 77 U/L 47-114 Total Bilirubin (test code = TBIL) 0.8 mg/dl 0.2-1.2 Globulin (test code = GLOBU) 3.7 gm/dl 2.3-3.5 H Calcium, Corrected (test code = CALCCORR) 9.2 mg/dl 8.4-10.2 Various formulas exist for corrected serum calcium results, each yielding different values. This corrected result was based on the formula: Corrected Calcium = SerumCalcium + [0.8 * ( 4 - SerumAlbumin)] EGFR if (test code = EGFRAA) >60 mL/min/1.73m\\ S\\2 EGFR if Non- (test code = EGFRNA) >60 mL/min/1.73m\\ S\\2 Estimated Glomerular Filtration Rate (eGFR) Reference Intervals Decision Points for 18 years and older and average body mass: >= 60 Does not exclude kidney disease. 30 - 59 Suggests moderate chronic kidney disease and indicates the need for further investigation including assessment of proteinuria and cardiovascular factors. < 30 Usually indicates a need for referral for assessment and management of chronic kidney failure. [facility] WITH AUTO [id number] 05:57:00* Test Item Value Reference Range Interpretation Comme nts WBC (test code = WBC) 7.49 10\\S\\3/ul 4.80-10.80 RBC (test code = RBC) 4.17 10\\S\\6/ul 4.70-6.10 L Hemoglobin (test code = HGB) 11.3 gm/dl 14.0-18.0 L Hematocrit (test code = HCT) 35.5 % 42.0-50.0 L MCV (test code = MCV) 85.1 fL 80.0-94.0 MCH (test code = MCH) 27.1 pg 27.0-31.0 MCHC (test code = MCHC) 31.8 gm/dl 33.0-37.0 L RDW (test code = RDWVC) 16.1 % 11.5-14.5 H Platelet (test code = PLT) 222 10\\S\\3/ul 130-400 MPV (test code = MPV) 9.5 fL 7.4-10.4 A "NOT MEASURED" RESULTS ARE DISPLAYED WHEN THE INSTRUMENT HAS A SUPPRESSED OR UNREPORTABLE RESULT. THIS WILL MOST OFTEN HAPPEN WITH THE MPV WHEN THERE IS AN ABNORMAL PLATLET DISTRIBUTION DUE TO A CRITICAL LOW VALUE OR PLATELET CLUMPING. NE% (test code = NE) 64.4 % 42.0-75.0 LY% (test code = LY) 16.2 % 13.0-42.0 MO% (test code = MO) 12.6 % 4.0-14.0 EO% (test code = EO) 1.3 % 1.0-3.0 BA% (test code = BA) 0.7 % 1.0-3.0 L IG% (test code = IG%) 4.8 % 0.0-0.4 [id number] 05:41:00* Test Item Value Reference Range Interpretation Comme [facility] Magnesium (test code = MG) 2.0 mg/dl 1.6-2.3 [facility]* Test Item Value Reference Range Interpretation Comme nts Glucose (test code = GLU) 114 mg/dl 75-110 H BUN (test code = BUN) 8.0 mg/dl 6.0-17.0 Creatinine (test code = CREA) 0.9 mg/dl 0.4-1.2 Sodium (test code = NA) 145 mmol/l 137-145 Potassium (test code = K) 3.9 mmol/l 3.5-5.0 Chloride (test code = CL) 105 mmol/l 98-107 CO2 (test code = CO2) 28 mmol/l 22-30 Calcium (test code = CALC) 8.8 mg/dl 8.4-10.2 T Protein (test code = TP) 7.0 gm/dl 5.1-8.7 Albumin (test code = ALB) 3.2 gm/dl 3.5-4.6 L A/G Ratio (test code = AGRAT) 0.8 % 1.1-2.2 L AST (SGOT) (test code = AST) 75 U/L 11-36 H ALT (SGPT) (test code = ALT) 113 U/L 11-40 H Alkaline Phos (test code = ALKP) 100 U/L 47-114 Total Bilirubin (test code = TBIL) 1.0 mg/dl 0.2-1.2 Globulin (test code = GLOBU) 3.8 gm/dl 2.3-3.5 H Calcium, Corrected (test code = CALCCORR) 9.4 mg/dl 8.4-10.2 Various formulas exist for corrected serum calcium results, each yielding different values. This corrected result was based on the formula: Corrected Calcium = SerumCalcium + [0.8 * ( 4 - SerumAlbumin)] EGFR if (test code = EGFRAA) >60 mL/min/1.73m\\ S\\2 EGFR if Non- (test code = EGFRNA) >60 mL/min/1.73m\\ S\\2 Estimated Glomerular Filtration Rate (eGFR) Reference Intervals Decision Points for 18 years and older and average body mass: >= 60 Does not exclude kidney disease. 30 - 59 Suggests moderate chronic kidney disease and indicates the need for further investigation including assessment of proteinuria and cardiovascular factors. < 30 Usually indicates a need for referral for assessment and management of chronic kidney failure. [facility]kinLACT[facility] AC[facility] [id number] 06:43:00* Test Item Value Reference Range Interpretation Comme nts LACTATE (test code = LAC) 0.9 mmol/l 0.7-2.0 [facility]kinGLYCOSALATED [id number] 05:41:00* Test Item Value Reference Range Interpretation Comme [facility] Hemoglobin A1C (test code = GLYCO) 9.06 % 4.3-6.0 A Mean Plasma Glucose (test code = MPG) 245 mg/dl 90-180 WHEN TEST RESU LTS FOR A1C EXCEED 14.0, THE LINEAR LIMIT OF THE INSTRUMENT, THE CALCULATED RESULT FOR THE MEAN GLUCOSE IS NOT RELIABLE. [facility] [id number] 05:09:00* Test Item Value Reference Range Interpretation Comme [facility] Triglycerides (test code = TRIG) 186 mg/dl 0-149 H Trig. Interpreta tion Guide: Normal: < 150 mg/dl Borderline High: 150 - 199 mg/dl High: 200 - 499 mg/dl Very High: >= 500 mg/dl Cholesterol (test code = CHOL) 146 mg/dl 0-198 HDL (test code = HDL) 24 mg/dl 35-86 L dLDL (test code = DILDL) 89 mg/dl 0-99 Direct LDL Intrepretations: Optimal: <100 mg/dl Suspect: 100 - 129 mg/dl Borderline: 130 - 159 mg/dl High: 160 - 189 mg/dl Very High: >190 mg/dl Risk Factor (test code = RFACT) 6.1 0.0-5.0 H Risk Factor Men Women Risk Factor 3.4 3.3 1/2 Average 5.0 4.4 Average 9.6 7.1 2X Average 24.0 11.0 3X Average vLDL (test code = VLDL) 37 mg/dl 30-60 [facility]MAG[facility]UM2017-08-26 04:51:00* Test Item Value Reference Range Interpretation Comme [facility] Magnesium (test code = MG) 2.1 mg/dl 1.6-2.3 [facility]CPK2017-08-[facility] 04:51:00* Test Item Value Reference Range Interpretation Comme [facility] CPK (test code = CPK) 93 U/L 30-135 [facility] HospitalLIPASE, [id number] 04:43:00* Test Item Value Reference Range Interpretation Comme [facility] Lipase (test code = LIPA) 116 U/L 8-223 [facility]-[id number] 04:43:00* Test Item Value Reference Range Interpretation Comme nts Glucose (test code = GLU) 95 mg/dl 75-110 BUN (test code = BUN) 10.0 mg/dl 6.0-17.0 Creatinine (test code = CREA) 0.8 mg/dl 0.4-1.2 Sodium (test code = NA) 143 mmol/l 137-145 Potassium (test code = K) 3.4 mmol/l 3.5-5.0 L Chloride (test code = CL) 104 mmol/l 98-107 CO2 (test code = CO2) 29 mmol/l 22-30 Calcium (test code = CALC) 9.0 mg/dl 8.4-10.2 T Protein (test code = TP) 7.6 gm/dl 5.1-8.7 Albumin (test code = ALB) 3.6 gm/dl 3.5-4.6 A/G Ratio (test code = AGRAT) 0.9 % 1.1-2.2 L AST (SGOT) (test code = AST) 58 U/L 11-36 H ALT (SGPT) (test code = ALT) 93 U/L 11-40 H Alkaline Phos (test code = ALKP) 97 U/L 47-114 Total Bilirubin (test code = TBIL) 1.3 mg/dl 0.2-1.2 H Globulin (test code = GLOBU) 4.0 gm/dl 2.3-3.5 H Calcium, Corrected (test code = CALCCORR) 9.3 mg/dl 8.4-10.2 Various formulas exist for corrected serum calcium results, each yielding different values. This corrected result was based on the formula: Corrected Calcium = SerumCalcium + [0.8 * ( 4 - SerumAlbumin)] EGFR if (test code = EGFRAA) >60 mL/min/1.73m\\ S\\2 EGFR if Non- (test code = EGFRNA) >60 mL/min/1.73m\\ S\\2 Estimated Glomerular Filtration Rate (eGFR) Reference Intervals Decision Points for 18 years and older and average body mass: >= 60 Does not exclude kidney disease. 30 - 59 Suggests moderate chronic kidney disease and indicates the need for further investigation including assessment of proteinuria and cardiovascular factors. < 30 Usually indicates a need for referral for assessment and management of chronic kidney failure. Formerly named [facility] (HEMOGRAM ONLY)2017-01-18 04:37:00* Test Item Value Reference Range Interpretation Comme nts WBC (test code = WBC) 7.74 10\\S\\3/ul 4.80-10.80 RBC (test code = RBC) 4.39 10\\S\\6/ul 4.70-6.10 L Hemoglobin (test code = HGB) 12.0 gm/dl 14.0-18.0 L Hematocrit (test code = HCT) 37.4 % 42.0-50.0 L MCV (test code = MCV) 85.2 fL 80.0-94.0 MCH (test code = MCH) 27.3 pg 27.0-31.0 MCHC (test code = MCHC) 32.1 gm/dl 33.0-37.0 L RDW (test code = RDWVC) 15.9 % 11.5-14.5 H Platelet (test code = PLT) 185 10\\S\\3/ul 130-400 MPV (test code = MPV) 9.5 fL 7.4-10.4 A "NOT MEASURED" RESULTS ARE DISPLAYED WHEN THE INSTRUMENT HAS A SUPPRESSED OR UNREPORTABLE RESULT. THIS WILL MOST OFTEN HAPPEN WITH THE MPV WHEN THERE IS AN ABNORMAL PLATLET DISTRIBUTION DUE TO A CRITICAL LOW VALUE OR PLATELET CLUMPING. THIS IS A [facility]OGRAM ONLY[facility] Notes Date/Time Note Provider Source 2023-04-30 19:57:00 [id number] [place] [address] PATIENT NAME: ROBBIN OSORIO ADMIT DATE: 01/28/23 ACCOUNT NO: [id number] ROOM NO: AGE: 58 REPORT TYPE: OPERATIVE REPORT SEX: M ADMITTING PHYSICIAN: ATTENDING PHYSICIAN:Neel Garcia MD OPERATION DATE: 01/28/2023 PROCEDURE PERFORMED: 1. Coronary angiogram. 2. Balloon angioplasty followed by PCI of severe mid LAD stenosis. INDICATION: Severe chest pain with known severe LAD stenosis. ACCESS: Right femoral artery 6-Welsh closed with #6 Welsh Angio-Seal. COMPLICATIONS: None BLEEDING: Less than 20 mL DESCRIPTION OF PROCEDURE: After risks, benefits and alternatives were explained, the patient agreed to proceed and signed informed consent. The patient was brought into cardiac catheterization laboratory, prepped and draped in sterile fashion. Then, I accessed right femoral artery using micropuncture kit, placed a 6-Welsh slender sheath and took a 6-Welsh EBU 3.5 guide into the aortic root, engaged the left main, took standard views and then gave systemic heparin to assure ACT level above 250 throughout the procedure. The patient was on dual antiplatelets and then took a Runthrough wire through the LAD, placed it distally and then performed balloon angioplasty of the [id number] LAD and actually subsequently I placed a long 2.75 x 48 mm Synergy drug-eluting stent across the area of stenosis with excellent expansion and proximally I placed a 3.0 stent with excellent expansion, overlapped with the first one. Final angiogram was satisfactory. We removed the wires, removed the guide, and then the sheath and 6-Welsh Angio-Seal was used for closure with good hemostasis. FINDINGS: 1. Left main is large and normal. 2. LAD has a mid diffuse long severe stenosis 80% distal LAD, is free of disease. Diagonal branches with luminal irregularities, status post successful PCI of the mid LAD. 3. Left circumflex, it is moderate sized with no significant disease. CONCLUSION: Severe mid LAD stenosis, status post successful PCI as above. PLAN: Dual antiplatelet therapy and high dose statin. Follow up with me in the office in 2 weeks. PATIENT NAME: ROBBIN OSORIO Dictated By: Neel Garcia MD Date Dictated: 04/30/2023 19:57:10 Date Transcribed: 04/30/2023 23:44:48 /ALPHONSO Receipt ID: [id number] Authenticated by Neel Garcia MD On 05/08/2023 10:50:32 AM at 1050 PATIENT NAME: ROBBIN OSORIO [facility] 2023-01-28 10:47:00 [id number] [place] [address] PATIENT NAME: ROBBIN OSORIO ADMIT DATE: 01/28/23 ACCOUNT NO: [id number] ROOM NO: AGE: 58 REPORT TYPE: eELECTROCARDIOGRAM REPORT SEX: M ADMITTING PHYSICIAN: ATTENDING PHYSICIAN:Neel Garcia MD Order: [id number] Test Reason : S/P PCI Test Date/Time Stamp: FriJan 28 2023 10:47:45 Blood Pressure : / mmHG Vent. Rate : 058 BPM Atrial Rate : 058 BPM P-R Int : 166 ms QRS Dur : 114 ms QT Int : 436 ms P-R-T Axes : 038 085 042 degrees QTc Int : 428 ms Sinus bradycardia Incomplete right bundle branch block Confirmed by MARY ARITA ([id number]) on 02/10/2023 9:15:37 AM Referred By: Neel Garcia Confirmed by:MARY ARITA at 0915 PATIENT NAME: ROBBIN OSORIO [facility] 2023-01-23 14:42:00 [phone] [place] [address] PATIENT NAME: ROBBIN OSORIO ADMIT DATE: 01/28/23 ACCOUNT NO: [id number] ROOM NO: AGE: 58 REPORT TYPE: eELECTROCARDIOGRAM REPORT SEX: M ADMITTING PHYSICIAN: ATTENDING PHYSICIAN:Neel Garcia MD Order: [id number] Test Reason : PRE OP Test Date/Time Stamp: FriJan 23 2023 14:42:15 Blood Pressure : / mmHG Vent. Rate : 062 BPM Atrial Rate : 062 BPM P-R Int : 150 ms QRS Dur : 106 ms QT Int : 414 ms P-R-T Axes : 019 088 032 degrees QTc Int : 420 ms Normal sinus rhythm Incomplete right bundle branch block Borderline ECG No previous ECGs available Confirmed by STEPH ARITA MD ([id number]) on 01/30/2023 10:22:40 AM Referred By: Neel Garcia Confirmed by:STEPH ARITA MD at 1022 PATIENT NAME: ROBBIN OSORIO [facility] 2020-02-09 11:01:00 [phone] [facility] [address] [place] [address] PATIENT NAME: ROBBIN OSORIO ADMIT DATE: 02/08/20 ACCOUNT NO: [id number] ROOM NO: AGE: 55 REPORT TYPE: OPERATIVE REPORT SEX: M ADMITTING PHYSICIAN: ATTENDING PHYSICIAN:Neel Garcia MD OPERATION DATE: 02/08/2020 PREOPERATIVE DIAGNOSIS: PREOPERATIVE DIAGNOSIS: PROCEDURES PERFORMED: Selective coronary angiogram. SURGEON: TOBACCO STRIPPER HAND: ANESTHESIA: ACCESS: The right femoral artery closed with 6-Welsh Angio-Seal. INDICATIONS: Moderate LAD disease with congestive heart failure and unstable angina. COMPLICATIONS: None. BLEEDING: Less than 5 mL and a total sedation time was 35 minutes. PROCEDURE IN DETAIL: After risks, benefits, and alternatives were explained, the patient agreed to the procedure and signed an informed consent. We then tried to access right radial artery; however, failed and then switched to the right femoral artery using ultrasound guidance and fluoroscopy. The femoral artery was accessed utilizing micropuncture kit and then placed 6-Welsh [place] sheath and then we took 6-Welsh EBU guide into the aortic root and engaged in left main and then subsequently took standard views and then we took the FFR wire after giving a systemic heparin to assure ACT level being above 250 and then we crossed the lesion. An iFR was measured and being negative at 1.0. Then, the wire was pulled back into the aortic root and showed no drift. Final injection showed no complications. I then removed the guide and the catheter out and then the sheath was removed and closed the access with a 6-Welsh Angio-Seal without complications. CONCLUSION: Moderate proximal LAD disease. Negative by iFR value of 1.0. RECOMMENDATIONS: 1. Medical management of coronary artery disease. 2. Medical management of congestive heart failure. 3. Discharge home once discharge criteria are met. PATIENT NAME: ROBBIN OSORIO Dictated By: Neel Garcia MD WT: OP:PANNAMARIA/NERI/BELEN Conf#: [id number]#: [id number] Authenticated by Neel Garcia MD On 02/10/2020 08:25:20 AM at 0825 PATIENT NAME: ROBBIN OSORIO [facility] 2017-04-29 11:15:00 EXAM: CT MYELOGRAM L UMBAR SPINE EXAM: CT MYELOGRAM THORACIC SPINE EXAM: FLUOROSCOPY-GUIDED LUMBAR PUNCTURE FOR CT MYELOGRAM DATE: 04/29/2017 1012 hours INDICATION: Lumbar stenosis COMPARISON: None. PROCEDURE: An interlaminar lumbar puncture was carried out under fluoroscopic guidance with a 22 gauge 5' long spinal Quincke needle at the level of L2-L3 under the usual sterile conditions and local anesthesia. 12 mL of Iohexol-240 was instilled into the lumbar thecal sac. MYELOGRAMS: During the injection of contrast it was noted that the lumbar thecal sac was diffusely narrowed. Much of the injected contrast the lumbar spine preferentially flowed into the thoracic spinal canal. The lumbar spinal canal was narrowed and a smaller amount of contrast was entering the mid and lower lumbar spinal canal. The patient was therefore kept in a lateral decubitus position for [address] scanning for better distribution of the contrast density. FLUOROSCOPIC TIME: 0.[address] Fraser, was present for the procedure. TECHNIQUE: Volumetric acquisition of the thoracic and lumbar spine, from the level of T 1 through the sacrum. The 1st image set showed adequate opacification of the lumbar and lower thoracic spine. Delayed images after one hour showed excellent opacification of the remainder of the thoracic spine DLP: 1451 mGy-cm FINDINGS: THORACIC AND LUMBAR SPINE: Alignment of the thoracic spine is maintained. Intervertebral discs are normal. The spinal alignment is normal with presumably trauma related kyphotic deformity at L1-L2 as noted below. The thoracic spinal canal is normal in size. Congenitally short [...] of the L1 and L2 vertebral bodies with large anterior osteophytes most likely due to [...] with encroachment upon the exiting nerve roots. [facility] 2017-04-29 09:20:00 EXAM: CT MYELOGRAM L UMBAR SPINE EXAM: CT MYELOGRAM THORACIC SPINE EXAM: FLUOROSCOPY-GUIDED LUMBAR PUNCTURE FOR CT MYELOGRAM DATE: 04/29/2017 1012 hours INDICATION: Lumbar stenosis COMPARISON: None. PROCEDURE: An interlaminar lumbar puncture was carried out under fluoroscopic guidance with a 22 gauge 5' long spinal Quincke needle at the level of L2-L3 under the usual sterile conditions and local anesthesia. 12 mL of Iohexol-240 was instilled into the lumbar thecal sac. MYELOGRAMS: During the injection of contrast it was noted that the lumbar thecal sac was diffusely narrowed. Much of the injected contrast the lumbar spine preferentially flowed into the thoracic spinal canal. The lumbar spinal canal was narrowed and a smaller amount of contrast was entering the mid and lower lumbar spinal canal. The patient was therefore kept in a lateral decubitus position for [address] scanning for better distribution of the contrast density. FLUOROSCOPIC TIME: 0.[address] Fraser, was present for the procedure. TECHNIQUE: Volumetric acquisition of the thoracic and lumbar spine, from the level of T 1 through the sacrum. The 1st image set showed adequate opacification of the lumbar and lower thoracic spine. Delayed images after one hour showed excellent opacification of the remainder of the thoracic spine DLP: 1451 mGy-cm FINDINGS: THORACIC AND LUMBAR SPINE: Alignment of the thoracic spine is maintained. Intervertebral discs are normal. The spinal alignment is normal with presumably trauma related kyphotic deformity at L1-L2 as noted below. The thoracic spinal canal is normal in size. Congenitally short [...] of the L1 and L2 vertebral bodies with large anterior osteophytes most likely due to [...] with encroachment upon the exiting nerve roots. [facility] 2017-03-19 11:50:00 EXAM: XR ENTIRE SPIN E 2 VIEWS DATE: 03/19/2017 10:49 AM CDT INDICATION: - STANDING 36' AP/LAT FILMS FROM SKULL TO FEMORAL HEADS COMPARISON: None TECHNIQUE: AP and lateral radiographs of the lumbar spine FINDINGS: Alignment and vertebral body heights are intact throughout the entire spine. Spondylitic changes with degenerative disc disease noted in the upper lumbar spine. Facet arthropathy throughout the lumbar spine. No osseous lesions. No soft tissue abnormality is identified. IMPRESSION: Mild spondylotic changes in the thoracolumbar spine. [facility]
[2025-01-05] MEDS ORDERED: ASPIRIN 81 MG CHEWABLE TABLET ONE (12:21)
[2025-01-05 12:39] LABS: Absolute Lymphocytes (CBC) 1.2 K/uL (0.7-4.9); Hematocrit 35.8 % (39.6-49.0); Hemoglobin 11.8 g/dL (13.6-17.9); MCH 26.1 pg (27.0-35.0); MCHC 32.9 g/dL (32.0-36.0); MCV 79.4 fL (80-100); MPV 7.6 fL (7.6-11.3); Nucleated RBC Absolute Count 0.0 (0-0); Nucleated Red Blood Cells % 0.0 % (0-0); RBC Red Blood Cell Count 4.50 M/uL (4.33-5.43); White Blood Count 6.40 thou/uL (4.3-10.9)
[2025-01-05 12:46] LABS: PT Prothrombin Time 11.9 SECONDS (10-13.0); Protime INR 1.05
--- NOTE | 2025-01-05 13:00 | RAD REPORT ---
EXAM: Chest Single View HISTORY: 59 years Male CHEST PAIN COMPARISON: 08/07/2024 FINDINGS: LUNGS/PLEURA: The lungs are clear. No pleural effusions or pneumothorax. No pulmonary edema. CARDIAC/MEDIASTINUM: The cardiac silhouette is within normal limits. UPPER ABDOMEN: No significant abnormality. BONES: No acute abnormality. LINES/TUBES/OTHER: N/A IMPRESSION: No evidence of acute cardiopulmonary disease. No significant change from prior.
[2025-01-05 13:08] LABS: NT PRO-BNP 97.0 pg/mL (<125); Troponin High Sensitivity 5.7 pg/mL (<58.9)
[2025-01-05 13:10] LABS: ALT/SGPT 31.0 U/L (16-61); AST/SGOT 17.0 U/L (15-37); Albumin 3.3 g/dL (3.4-5.0); Albumin/Globulin Ratio 0.9 (1.1-1.8); Alkaline Phosphatase 86.0 U/L (45-117); Anion Gap 7.9 mEq/L (5.0-15.0); BUN Blood Urea Nitrogen 18.0 mg/dL (7-18); Bilirubin Indirect, Calculated 0.4 mg/dL (0.2-0.8); Globulin 3.7 g/dL (2.3-3.5); Glucose Level 132.0 mg/dL (74-106); Magnesium 1.8 mg/dL (1.6-2.4); Potassium 3.9 mEq/L (3.5-5.1)
--- NOTE | 2025-01-05 15:06 | ER ---
Nurse's Notes [facility] Name: Nicola Harvey Age: 59 yrs Sex: Male : 1965 Arrival Date: 01/05/2025 Time: 11:51 Bed 5 Private MD: Diagnosis: Chest pain, unspecified Presentation: 01/05 12:04 Chief complaint: Patient states: CHEST PAIN ON THE RT SIDE THAT STARTED ABOUT 30 MINS dd2 AGO. PT DENIES RADIATING PAIN. Coronavirus screen: At this time, the client does not indicate any symptoms associated with coronavirus-19. Ebola Screen: No symptoms or risks identified at this time. Initial Sepsis Screen: Does the patient meet any 2 criteria? No. Patient's initial sepsis screen is negative. Does the patient have a suspected source of infection? No. Patient's initial sepsis screen is negative. Risk Assessment: Do you want to hurt yourself or someone else? Patient reports no desire to harm self or others. Onset of symptoms was January 05, 2025. 12:04 Method Of Arrival: Ambulatory dd2 12:04 Acuity: ANGE 3 dd2 Triage Assessment: 12:06 General: Appears in no apparent distress. uncomfortable, Behavior is calm, cooperative, dd2 appropriate for age. Pain: Complains of pain in right clavicle and anterior aspect of right upper chest Pain currently is 5 out of 10 on a pain scale. at worst was 8 out of 10 on a pain scale. Cardiovascular: Reports chest pain. Historical: - Allergies: 12:06 Invokana; dd2 12:06 Jardiance; dd2 12:06 PENICILLINS; dd2 12:06 Zosyn; dd2 - PMHx: 12:06 CHF; chronic back pain; Diabetes - IDDM; Hyperlipidemia; Hypertension; Obesity; dd2 Myocardial infarction; - PSHx: 12:06 addenoidectomy; Cholecystectomy; rhinoplasty; CARDIAC STENTS (rhinoplasty); dd2 - Immunization history:: Adult Immunizations up to date. - Infectious Disease History:: Denies. - Social history:: Smoking status: Patient denies any tobacco usage or history of. Screenin:17 [facility] ED Fall Risk Assessment (Adult) History of falling in the last 3 months, iw including since admission No falls in past 3 months (0 pts) Confusion or Disorientation No (0 pts) Intoxicated or Sedated No (0 pts) Impaired Gait No (0 pts) Mobility Assist Device Used No (0 pt) Altered Elimination No (0 pt) Score/Fall Risk Level 0 - 2 = Low Risk Oriented to surroundings, Maintained a safe environment. Abuse screen: Denies threats or abuse. Denies injuries from another. Nutritional screening: No deficits noted. Tuberculosis screening: No symptoms or risk factors identified. Assessment: 12:16 General: Appears in no apparent distress. Behavior is calm, cooperative. Pain: iw Complains of pain in right clavicle and anterior aspect of right upper chest Pain does not radiate. Pain currently is 6 out of 10 on a pain scale. Pain began 1 hour ago. Is continuous. Neuro: Level of Consciousness is awake, alert, obeys commands, Oriented to person, place, time, situation, Moves all extremities. Full function. Cardiovascular: Reports chest pain, Patient's skin is warm and dry. Chest pain. Respiratory: Respiratory effort is even, unlabored, Respiratory pattern is regular, symmetrical. Derm: Skin is intact, is healthy with good turgor. Musculoskeletal: Range of motion: intact in all extremities. 14:03 Reassessment: Patient appears in no apparent distress at this time. Patient and/or iw family updated on plan of care and expected duration. Pain level reassessed. Patient is alert, oriented x 3, equal unlabored respirations, skin warm/dry/pink. 14:54 Reassessment: Patient appears in no apparent distress at this time. Patient and/or iw family updated on plan of care and expected duration. Pain level reassessed. Patient is alert, oriented x 3, equal unlabored respirations, skin warm/dry/pink. Vital Signs: 12:04 BP 153 / 63; Pulse 64; Resp 17; Temp 98.3; Pulse Ox 99% on R/A; Weight 136.08 kg; dd2 Height 5 ft. 9 in. ; Pain 5/10; 12:54 BP 121 / 67; Pulse 67; Resp 18; Pulse Ox 99% on R/A; ph 14:03 BP 130 / 68; Pulse 65; Resp 16; Pulse Ox 99% on R/A; iw 12:04 Body Mass Index 44.30 (136.08 kg, 175.26 cm) dd2 12:04 Pain Scale: Adult dd2 ED Course: 11:55 Patient arrived in ED. cj3 12:00 Osiris Quiroz FNP-C is [facility]. kb 12:00 Esvin Akins DO is Attending Physician. kb 12:06 Triage completed. dd2 12:06 Arm band placed on right wrist. dd2 12:16 Janay Watts, RN is Primary Nurse. iw 12:20 Initial lab(s) drawn, by me, sent to lab. EKG done, by ED staff, reviewed by Osiris DAVISON. 12:20 Inserted saline lock: 20 gauge in left antecubital area, using aseptic technique. Blood iw collected. Flushed with 10 mL NS. 12:28 Patient maintains SpO2 saturation greater than 95% on room air. iw 12:40 Patient has correct armband on for positive identification. Client placed on continuous iw cardiac and pulse oximetry monitoring. NIBP monitoring applied. case monitor on. 12:59 XRAY Chest (1 view) In Process Unspecified. EDMS 15:05 Latoya Mcknight MD is Hospitalizing Provider. kb Administered Medications: 12:24 Drug: Aspirin PO Chewable Tablet 324 mg PO once; 81 mg tablets x 4 Route: PO; iw 13:00 Follow up: Response: No adverse reaction iw Medication: 12:17 VIS not applicable for this client. iw Outcome: 15:05 Decision to Hospitalize by Provider. kb 16:20 Patient left the ED. iw Signatures: Dispatcher [employer] EDMS Osiris Quiroz FNP-C FNP-Janay Pires, KRUNAL HECTOR iw Mary Anne Grace ph D, RN RNAVIS, DIANA RN RN dd2 June Joseph cj3 Corrections: (The following items were deleted from the chart) 15:55 12:20 Inserted saline lock: 20 gauge in right antecubital area, using aseptic iw technique. Blood collected. Flushed with 10 mL NS iw
--- NOTE | 2025-01-05 15:06 | EDPHYS ---
Physician Documentation [facility] Name: Nicola Harvye Age: 59 yrs Sex: Male : 1965 Arrival Date: 01/05/2025 Time: 11:51 Bed 5 Private MD: ED Physician Esvin Akins HPI: 01/05 15:03 This 59 yrs old Male presents to ER via Ambulatory with complaints of Chest kb Pain. 15:03 Patient is a 59-year-old male who presents for chest pain just to the right of the kb sternum that started 30 minutes prior to arrival. Reports slight shortness of breath. States he called Dr. Garcia and was told to come to the ER immediately for evaluation.. Historical: - Allergies: 12:06 Invokana; dd2 12:06 Jardiance; dd2 12:06 PENICILLINS; dd2 12:06 Zosyn; dd2 - PMHx: 12:06 CHF; chronic back pain; Diabetes - IDDM; Hyperlipidemia; Hypertension; Obesity; dd2 Myocardial infarction; - PSHx: 12:06 addenoidectomy; Cholecystectomy; rhinoplasty; CARDIAC STENTS (rhinoplasty); dd2 - Immunization history:: Adult Immunizations up to date. - Infectious Disease History:: Denies. - Social history:: Smoking status: Patient denies any tobacco usage or history of. ROS: 12:34 Constitutional: As per HPI kb Exam: 12:34 Constitutional: This is a well developed, well nourished patient who is awake, alert, kb and in no acute distress. Head/Face: Normocephalic, atraumatic. ENT: Moist Mucous membranes Cardiovascular: Regular rate Respiratory: Respirations even and unlabored. No increased work of breathing. Talking in full sentences Skin: Warm, dry with normal turgor. Normal color. MS/ Extremity: Pulses equal, no cyanosis. Neurovascular intact. Full, normal range of motion. Neuro: Awake and alert, GCS 15, oriented to person, place, time, and situation. 12:34 ECG was reviewed by the Attending Physician. Vital Signs: 12:04 BP 153 / 63; Pulse 64; Resp 17; Temp 98.3; Pulse Ox 99% on R/A; Weight 136.08 kg; dd2 Height 5 ft. 9 in. ; Pain 5/10; 12:54 BP 121 / 67; Pulse 67; Resp 18; Pulse Ox 99% on R/A; ph 14:03 BP 130 / 68; Pulse 65; Resp 16; Pulse Ox 99% on R/A; iw 12:04 Body Mass Index 44.30 (136.08 kg, 175.26 cm) dd2 12:04 Pain Scale: Adult dd2 MDM: 12:00 Medical Screening Exam initiated kb 13:42 Data reviewed: vital signs, nurses notes. Management of patient was discussed with the kb following: Medical Supply Technician: Dr Garcia consulted, message left, awaiting response. 15:04 Differential diagnosis: Arrhythmia, acute UT, CAD. Consideration of kb Admission/Observation Patient was admitted/placed on observation. Escalation of care including admission/observation considered. Management of patient was discussed with the following: Hospitalist: Dr. Mcknight accepts patient for admission under observation. Medical Supply Technician: Dr. Garcia accepts patient for consult. Independent interpretation of the following test(s) in the Emergency Department X-Ray: My interpretation is No pneumothorax. Care significantly affected by the following chronic conditions: Hypertension, UT with stent placement, CHF. Counseling: I had a detailed discussion with the patient and/or guardian regarding the historical points, exam findings, and any diagnostic results supporting the discharge/admit diagnosis, lab results, radiology results, the need for further work-up and treatment in the hospital. 01/05 12:05 Order name: Basic Metabolic Panel; Complete Time: 13:11 kb 01/05 12:05 Order name: CBC with Diff; Complete Time: 12:44 kb 01/05 12:05 Order name: LFT's; Complete Time: 13:11 kb 01/05 12:05 Order name: Magnesium; Complete Time: 13:11 kb 01/05 12:05 Order name: NT PRO-BNP; Complete Time: 13:11 kb 01/05 12:05 Order name: PT-INR; Complete Time: 12:47 kb 01/05 12:05 Order name: Troponin HS; Complete Time: 13:11 kb 01/05 12:05 Order name: XRAY Chest (1 view); Complete Time: 13:01 kb 01/05 12:05 Order name: Cardiac monitoring; Complete Time: 12:24 kb 01/05 12:05 Order name: EKG - Nurse/Tech; Complete Time: 12:18 kb 01/05 12:05 Order name: IV Saline Lock; Complete Time: 12:24 kb 01/05 12:05 Order name: Labs collected and sent; Complete Time: 12:24 kb 01/05 12:05 Order name: O2 Per Protocol; Complete Time: 12:24 kb 01/05 12:05 Order name: O2 Sat Monitoring; Complete Time: 12:24 kb EC:34 Rate is 64 beats/min. Rhythm is regular. QRS [place] is Normal. MD interval is normal at kb 156 msec. QRS interval is normal at 104 msec. QT interval is normal at 418 msec. Administered Medications: 12:24 Drug: Aspirin PO Chewable Tablet 324 mg PO once; 81 mg tablets x 4 Route: PO; iw 13:00 Follow up: Response: No adverse reaction iw Disposition: 18:44 I was immediately available on-site in the Emergency Department for consultation in the ms3 care of the patient. Disposition Summary: 01/05/25 15:05 Hospitalization Ordered Notes: Hospitalization Status: Observation kb Provider: Latoya Mcknight Location: Telemetry/MedSurg (observation) kb Condition: Stable kb Problem: new kb Symptoms: are unchanged kb Bed/Room Type: Standard Room Assignment: 224(01/05/25 15:12) ms3 Diagnosis - Chest pain, unspecified kb Forms: - Medication Reconciliation Form kb - SBAR form kb - Leadership Thank You Letter kb Signatures: Dispatcher [employer] Osiris Ann, AGRICULTURAL SYSTEMS SPECIALIST-C AGRICULTURAL SYSTEMS SPECIALIST-Ckb Janay Watts, KRUNAL RN Esvin Dooley DO DO ms3 RHONDA NEGRO RN RN dd2 Corrections: (The following items were deleted from the chart) 12:06 12:06 BASIC METABOLIC PANEL+C.LAB.BRZ ordered. EDMS EDMS 12:06 12:06 CBC+H.LAB.BRZ ordered. EDMS EDMS 12:06 12:06 HEPATIC FUNCTION+C.LAB.BRZ ordered. EDMS EDMS 12:06 12:06 MAGNESIUM+C.LAB.BRZ ordered. EDMS EDMS 12:06 12:06 PROBNP+C.LAB.BRZ ordered. EDMS EDMS 12:06 12:06 PROTIME (+INR)+COAG.LAB.BRZ ordered. EDMS EDMS 12:06 12:06 Troponin High Sensitivity+C.LAB.BRZ ordered. EDMS EDMS 12:06 12:06 Chest Single View+RAD.RAD.BRZ ordered. EDMS EDMS 15:12 15:05 kb ms3
[2025-01-05 18:45] VITALS: BMI 44.3
--- NOTE | 2025-01-05 19:10 | HP ---
Date of Admission: 01/05/2025 Chief Complaint: Chest pain. History Of Present Illness: This is a 59-year-old pleasant male patient, who was at work today and as he was walking, all of a sudden he started to have sharp chest pain in the center of the chest and right parasternal region. The patient describes his chest pain as sharp pain as if somebody stabbing knife in his chest. Pain did not radiate to any other body part, did not have any associated symptoms except had some sweating associated with this. 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 I was contacted requesting admission to the hospital and I saw him and he was lying in bed, asymptomatic. Allergies: NO KNOWN ALLERGIES. Medications: List reviewed. Review of Systems: Cardiovascular: As mentioned above. All other systems reviewed and negative. Social History: Negative for smoking and alcohol use. Family History: Significant for colon cancer and prostate cancer. Past Surgical History: Significant for sinus surgery, coronary angioplasty with stent placement in February 2023. Past Medical History: Significant for hypertension, obstructive sleep apnea, cervical spinal stenosis, type 2 diabetes mellitus, lumbar radiculopathy, hyperlipidemia, recurrent cellulitis of lower extremities, and lymphedema of legs. Also past medical history significant for coronary artery disease. Physical Examination: Vital Signs: Height 5 feet 9 inches, weight 300 pounds. Temperature 97.9, pulse 56, respiratory rate 16, blood pressure 151/78, oxygen saturation 98%. General: Awake, alert, oriented, not in distress. HEENT: Head atraumatic, normocephalic. Conjunctivae nonerythematous. Sclerae white. Mouth, no thrush or edema noted. Ears/Nose, no mass, lesion, discharge noted. Neck: Supple. No JVD, lymph nodes, bruit, thyromegaly noted. Lungs: Bilateral good equal air entry. Clear to auscultation. No rhonchi. No rales. Heart: Normal heart sounds, no murmur or gallop. Abdomen: Soft, bowel sounds normal. No guarding, rigidity, tenderness, mass, hepatosplenomegaly, distention, or bruit noted. Extremities: No leg edema. No calf tenderness. Skin: No rash, ulcer, cellulitis. Lymphatics: No lymph node enlargement in neck, supraclavicular, infraclavicular region. Neuro: No focal neurological deficit. Chest: Unremarkable. External Genitalia: Deferred. Rectal: Deferred. Laboratory Data: WBC 6.4, hemoglobin 11.8, and platelets 223. Sodium 139, potassium 3.9, chloride 106, bicarb 29, BUN 18, creatinine 0.96, glucose 132. Liver function tests unremarkable. Troponin 5.7. ProBNP 97. Chest x-ray, no acute cardiopulmonary changes. EKG, normal sinus rhythm, no acute ST-T changes. Impression: 1. Angina. 2. Coronary artery disease. 3. Anemia, unspecified. 4. Hypertension. 5. Type 2 diabetes mellitus. 6. Hyperlipidemia. 7. Morbid obesity. 8. Chronic diastolic heart failure. 9. Obstructive sleep apnea. 10. Cervical spinal stenosis. 11. Lumbar spinal stenosis. 12. Osteoarthritis, multiple sites. Plan: We will go ahead and admit the patient to hospital for further evaluation and management of this problem. The patient is appropriate for observation and we will keep him on telemetry overnight. Get serial cardiac enzymes to rule out myocardial infarction. Cardiology consultation will be requested. For his coronary artery disease, we will continue his antiplatelet therapy and for hypertension, continue antihypertensive medication, monitor blood pressure. If necessary, adjust medication. For hyperlipidemia, we will continue his statin therapy per order. No need for further intervention. For diabetes, we will manage it with sliding scale insulin and medications per order. No need for further intervention. Total time spent today 70 minutes including review of last hospital admission record from 08/08/2024, review of last office visit record, communication with emergency room physician, review of emergency room visit record, and performing today's evaluation and management. WALT/MODL Voice ID: [id number] ANNIE
[2025-01-05] MEDS: INSULIN REGULAR (HUMAN) 100 UNIT/ML SQ SCH (21:00)
[2025-01-05] MEDS: DOXAZOSIN 2 MG TAB PO SCH (21:01)
[2025-01-05] MEDS: GABAPENTIN 100 MG CAP PO SCH (21:01)
[2025-01-05] MEDS: METOPROLOL TAR 50 MG TAB PO SCH (21:01)
[2025-01-05] MEDS: ATORVASTATIN 80 MG TAB PO SCH (21:02)
[2025-01-05 21:40] VITALS: O2SAT 97
[2025-01-06 04:53] LABS: Absolute Lymphocytes (CBC) 1.3 K/uL (0.7-4.9); Hematocrit 33.5 % (39.6-49.0); Hemoglobin 11.4 g/dL (13.6-17.9); MCH 26.7 pg (27.0-35.0); MCHC 34.0 g/dL (32.0-36.0); MCV 78.6 fL (80-100); MPV 7.8 fL (7.6-11.3); Nucleated RBC Absolute Count 0.0 (0-0); Nucleated Red Blood Cells % 0.0 % (0-0); RBC Red Blood Cell Count 4.26 M/uL (4.33-5.43); White Blood Count 6.30 thou/uL (4.3-10.9)
[2025-01-06 05:07] LABS: Anion Gap 5.9 mEq/L (5.0-15.0); BUN Blood Urea Nitrogen 17.0 mg/dL (7-18); Glucose Level 126.0 mg/dL (74-106); Potassium 3.9 mEq/L (3.5-5.1)
[2025-01-06 08:42] VITALS: BP 174/89; TEMP 98.2
[2025-01-06] MEDS: METFORMIN HCL 500 MG TAB PO SCH (10:02)
[2025-01-06] MEDS: ISOSORBIDE MONO SR 30 MG TAB PO SCH (10:02)
[2025-01-06] MEDS: ASPIRIN EC 81 MG TAB PO SCH (10:03)
[2025-01-06] MEDS: FUROSEMIDE 40 MG TABLET PO SCH (10:03)
[2025-01-06] MEDS: CLOPIDOGREL 75 MG TABLET PO SCH (10:03)
--- NOTE | 2025-01-06 11:03 | P.CNS ---
Date of Consult: 01/06/25 Chief Complaint: chest pain History of Present Illness: Patient with PMH of CAD S/P LAD Stents and LCX stent, presented with chest pain, sharp in nature, better now, he has been going on through alot of stress, denies any other cardiac symptoms. Allergies Penicillins Allergy (Verified 11/24/24 10:41) drops blood pressure canagliflozin [From Invokana] Adverse Reaction (Verified 11/24/24 10:41) leg infection empagliflozin [From Jardiance] Adverse Reaction (Verified 11/24/24 10:41) leg infection piperacillin [From Zosyn] Adverse Reaction (Verified 11/24/24 10:41) tachycardia,hypotension, doapheresis tazobactam [From Zosyn] Adverse Reaction (Verified 11/24/24 10:41) tachycardia,hypotension, doapheresis Home medications list reviewed: Yes Home Medications: Aspirin 81 mg PO DAILY 10/03/20 Doxazosin [Cardura*] 2 mg PO BID 10/03/20 Insulin Regular, Human [Humulin R U-500 Kwikpen] 125 unit SQ BID 10/03/20 Metformin HCl [Glucophage*] 1,000 mg PO BID 10/03/20 Metoprolol Tartrate [Lopressor*] 50 mg PO BID 10/03/20 lisinopriL [Lisinopril] 20 mg PO BID 10/03/20 Furosemide [Lasix*] 40 mg PO DAILY 11/27/22 Atorvastatin Calcium [Lipitor] 1 tab PO BEDTIME 04/11/23 Isosorbide Mononitrate [Isosorbide Mononitrate ER] 1 tab PO DAILY 04/11/23 Clopidogrel Bisulfate [Clopidogrel] 75 mg PO DAILY 05/10/24 - Past Medical/Surgical History Diabetic: Yes -: HTN -: niddm -: Hyperlipidemia -: Sleep apnea -: RLE Cellulitis -: CHF -: NM with stentsx4 -: Adenoidectomy -: Myringotomy -: lower back pain with steroid shots -: chema - Family History Mother Medical History: Hypertension, Cancer, Other (see notes) Notes: colon CA, colostomy bag Father Medical History: Hypertension, Cancer Notes: prostata CA- remission, colon CA - Social History Smoking Status: Current every day smoker Alcohol use: No CD- Drugs: No Caffeine use: Yes Place of Residence: Home Review of Systems 10-point ROS is otherwise unremarkable Physical Examination Temp Pulse Resp BP Pulse Ox 98.2 F 57 16 174/89 H 97 01/06/25 08:00 01/06/25 10:03 01/06/25 08:00 01/06/25 10:03 01/06/25 08:00 General: Alert, In no apparent distress HEENT: Atraumatic, PERRLA, Mucous membr. moist/pink, EOMI, Sclerae nonicteric Neck: Supple, 2+ carotid pulse no bruit, No LAD, Without JVD or thyroid ab normality Respiratory: Clear to auscultation bilaterally, Normal air movement Cardiovascular: Regular rate/rhythm, Normal S1 S2 Gastrointestinal: Normal bowel sounds, No tenderness Musculoskeletal: No tenderness Integumentary: No rashes Neurological: Normal gait, Normal speech, Normal tone, Normal affect Lymphatics: No axilla or inguinal lymphadenopathy Laboratory Data (last 24 hrs) 01/05/25 01/05/25 01/05/25 12:20 12:20 12:20 WBC 6.40 Hgb 11.8 L Hct 35.8 L Plt Count 223 PT 11.9 INR 1.05 Sodium 139 Potassium 3.9 BUN 18 Creatinine 0.96 Glucose 132 H Magnesium 1.8 Total Bilirubin 0.5 AST 17 ALT 31 Alkaline Phosphatase 86 - Problems (1) Hypertension Onset Date: 11/07/15 Current Visit: No Status: Acute Plan: continue his home medications continue to monitor (2) Non-insulin dependent type 2 diabetes mellitus Onset Date: 11/07/15 Current Visit: No Status: Acute Plan: tight glycemic control consider adding farxiga (3) Chest pain Onset Date: 06/15/15 Current Visit: No Status: Inactive Plan: chest pain resolved, troponin negative x3 continue ASA, Plavix and statins outpatient follow up with cardiology.
--- NOTE | 2025-01-06 23:16 | DS ---
Date of Discharge: 01/06/2025 Physical Examination: HEENT: Unremarkable. Lungs: Clear to auscultation. Heart: Sounds normal. Abdomen: Soft. Bowel sounds normal. No guarding, rigidity, tenderness, distention. Extremities: No leg edema. Laboratory Data: Upon admission, WBC 6.4, hemoglobin 11.8, platelets 223. Today, WBC 6.3, hemoglobi n 11.4, platelets 204. For chemistry upon admission, sodium 139, potassium 3.9, chloride 106, bicarb 29, BUN 18, creatinine 0.96, glucose 132. Liver function tests unremarkable. First troponin 5.7, s econd troponin is 5, third troponin 6. This morning, sodium 137, potassium 3.9, chloride 105, bicarb 30, BUN 17, creatinine 0.73, glucose 126. Discharge Medications And Instructions: 1. Continue all prior home medication. 2. Follow up at my office and with feeder switchboard operator in 1 to 2 weeks. Discharge Diagnoses: 1. Angina. 2. Coronary artery disease. 3. Anemia, unspecified. 4. Hypertension. 5. Type 2 diabetes mellitus. 6. Hyperlipidemia. 7. Morbid obesity. 8. Chronic diastolic heart failure. 9. Obstructive sleep apnea. 10. Cervical spinal stenosis. 11. Lumbar spinal stenosis. 12. Osteoarthritis, multiple sites. Hospital Course: This is a 59-year-old pleasant male patient, who came into emergency room with comp laints of chest pain. Please see dictated H and P from yesterday for more details. After the patien t was evaluated, he was admitted to hospital and Cardiology consultation was requested. His KS was r uled out by getting serial cardiac enzymes. The patient has remained asymptomatic after his admissio n to hospital and today feeder switchboard operator Dr. Escobar evaluated him and he suggested no need for further in tervention and no need to change any medications, so the patient was discharged to go home in stable condition with above-mentioned medications and instructions. I will see him as outpatient for follow up. I did communicate details with feeder switchboard operator today, Dr. Escobar. Total time spent 35 minutes. WALT/MODL Voice ID: [id number] Report ID: [id number]
== END 2025-01-06 12:39 | disposition home or self-care (01) ==
LOC: ER 11:51 → 2ND 15:07
PROVIDERS: ADMIT Internal Medicine; ATTEND Internal Medicine
DX: R07.9 Chest pain, unspecified (principal); I10 Essential (primary) hypertension; G47.33 Obstructive sleep apnea (adult) (pediatric); E11.9 Type 2 diabetes mellitus without complications; E78.5 Hyperlipidemia, unspecified; M48.02 Spinal stenosis, cervical region; M54.16 Radiculopathy, lumbar region; I25.10 Atherosclerotic heart disease of native coronary artery without angina pectoris; D64.9 Anemia, unspecified; E66.01 Morbid (severe) obesity due to excess calories; I50.32 Chronic diastolic (congestive) heart failure; M19.90 Unspecified osteoarthritis, unspecified site; Z88.0 Allergy status to penicillin; Z88.8 Allergy status to other drugs, medicaments and biological substances
CPT/HCPCS: 93005; 85025 ×2; 80048 ×2; 36415; 83735; 85610; 82947 ×4; 80076; 84484 ×3; 83880; 71045; 99284; G0378 ×3

== ENCOUNTER 2025-02-14 11:00 | Day surgery (SDC) | payer OTHER ==
[2025-02-02 13:35] LABS: Absolute Lymphocytes (CBC) 1.1 K/uL (0.7-4.9); Hematocrit 34.2 % (39.6-49.0); Hemoglobin 11.5 g/dL (13.6-17.9); MCH 26.8 pg (27.0-35.0); MCHC 33.8 g/dL (32.0-36.0); MCV 79.3 fL (80-100); MPV 8.2 fL (7.6-11.3); Nucleated RBC Absolute Count 0.0 (0-0); Nucleated Red Blood Cells % 0.0 % (0-0); RBC Red Blood Cell Count 4.31 M/uL (4.33-5.43); White Blood Count 6.10 thou/uL (4.3-10.9)
[2025-02-02 13:40] LABS: PT Prothrombin Time 11.6 SECONDS (10-13.0); PTT, Activated Partial Thromb 35.7 SECONDS (27.2-37.4); Protime INR 1.03
[2025-02-02 13:47] LABS: Anion Gap 9.1 mEq/L (5.0-15.0); BUN Blood Urea Nitrogen 18.0 mg/dL (7-18); Glucose Level 269.0 mg/dL (74-106); Potassium 4.1 mEq/L (3.5-5.1)
[2025-02-14] MEDS ORDERED: HEPARIN 10,000 UNIT/10 ML VIAL IV ONE ×2 (11:33→12:20)
[2025-02-14] MEDS ORDERED: LIDOCAINE 1% 20 ML MDV ONE (11:33)
[2025-02-14] MEDS ORDERED: HEPARIN 5000 UNIT/ML 1 ML VIAL ONE (11:33)
[2025-02-14] MEDS ORDERED: HEPA 1000U/500MLS 2,000 UNIT/1,000 ML BAG IV ONE (11:33)
[2025-02-14] MEDS ORDERED: VERAPAMIL HCL 10 MG/4 ML VIAL IV ONE (11:33)
[2025-02-14] MEDS ORDERED: FENTANYL CITR 100 MCG/2 ML ONE (11:42)
[2025-02-14] MEDS ORDERED: MIDAZOLAM HCL 2 MG/2 ML INJ ONE (11:43)
[2025-02-14] MEDS ORDERED: NA CHLORIDE 0.9% 500 ML ONE (11:43)
[2025-02-14] MEDS ORDERED: CLOPIDOGREL 75 MG TABLET ONE (12:31)
[2025-02-14 15:00] VITALS: O2SAT 100
[2025-02-14 16:31] VITALS: BP 143/76
--- NOTE | 2025-02-14 19:46 | OP ---
Date of Procedure: 02/14/2025 Surgeon: NIYAH CEDILLO Procedures Performed: 1. Selective coronary angiogram. 2. Left heart catheterization. 3. PCI of severe proximal D1 disease, I used 2.25 x 8 mm Synergy drug-eluting stent. Indication: Unstable angina. Access: Left common femoral artery 6-Dominican closed with Mynx closure device. Complications: None. Bleeding: Less than 50 mL. Total Sedation Time: 1 hour, used fentanyl and Versed. Description Of Procedure: After risks, benefits, and alternatives were explained, the patient agreed to procedure and signed informed consent. The patient was brought into cardiac catheterization [facility], prepped and draped in usual sterile fashion. Then, I accessed left common femoral artery usi ng micropuncture kit, ultrasound guidance, fluoroscopy, placed 6-Dominican [place] sheath and took a 6- Dominican JL4 catheter over a J-wire into the aortic root, engaged left main, took standard views and ex changed for 6-Dominican JR4 catheter over a J-wire across the aortic valve, measured the LVEDP. Pullbac k did not record any gradient, then engaged the RCA, took standard views and then exchanged for 6-[place] [facility] EBU 3.5 guide and gave systemic heparin to assure ACT level above 250, and the patient was alread y on dual antiplatelet therapy that he took today. Took Runthrough wire into the left main LAD and t hen the diagonal branch and using a 2.0 balloon, lesion expanded very well and then I put 2.25 x 8 mm Synergy drug-eluting stent to cover the ostium of D1. Excellent expansion LAD. MABEL-3 f low in both. Then removed the wire. Final angiogram satisfactory and the guide was removed and du th was removed and 6-Dominican Mynx closure device was used for closure with good hemostasis. Findings: 1. Left main; large and normal. 2. LAD; widely patent proximal to mid LAD stent, has mild 30% in-stent restenosis after diagonal 1 ta keoff and the diagonal 1 has 90% proximally, status post successful PCI. LAD in the mid segment, the re is focal 30% to 40% stenosis. Rest of it is normal. 3. Left circumflex; it has mid left circumflex stent as widely patent. OM branches are normal. 4. RCA; has a proximal to mid 50% stenosis and then luminal irregularities. 5. LVEDP is borderline elevated at 20 mmHg. Conclusions: 1. Severe diagonal 1 branch disease, status post successful PCI. 2. Moderate disease elsewhere. Plan: Aspirin, Plavix, high-dose statin. Follow up with me in the office in 1 week. I will plan to do a stress test on him in 6 months. SR/MODL Voice ID: [id number] Report ID: [id number]
== END 2025-02-14 14:10 | disposition home health service (06) ==
LOC: CCL 11:00
PROVIDERS: ATTEND Internal Medicine
DX: I25.110 Atherosclerotic heart disease of native coronary artery with unstable angina pectoris (principal); T82.855A Stenosis of coronary artery stent, initial encounter; I70.223 Atherosclerosis of native arteries of extremities with rest pain, bilateral legs; I10 Essential (primary) hypertension; E11.9 Type 2 diabetes mellitus without complications; Z87.891 Personal history of nicotine dependence; Z79.82 Long term (current) use of aspirin; Z88.8 Allergy status to other drugs, medicaments and biological substances; Z79.4 Long term (current) use of insulin; Z79.84 Long term (current) use of oral hypoglycemic drugs
CPT/HCPCS: 93005; 85025; 80048; 36415; 85610; 82947; 85347; 85730; 92928; 93458; 76937; C1893; Q9967; C1725; J1644 ×2; J2003; J2250; J3010; J7040; C1760; 99152